=== PATIENT | female | born 1955 | race Caucasian/White ===

== ENCOUNTER 2022-07-30 12:19 | Observation (INO) ==
--- NOTE | 2022-07-30 13:32 | XRay Report ---
XR chest 2V PA/lateral CLINICAL HISTORY: SOB TECHNIQUE: 2 views of the chest were obtained. Comparison: Comparison is made to chest radiograph 08/09/2019 FINDINGS: No lines and tubes are seen. The cardiomediastinal silhouette is normal. The lungs are clear. No evid ence of pleural effusion or pneumothorax. IMPRESSION: No acute abnormalities and in particular no evidence of pneumonia. ACT 112: Negative or not required by law. Electronically signed by: Adriel Orantes M.D. 07/30/2022 1:31 PM
[2022-07-30 13:37] LABS: Basophils # (auto) 0.14 K/uL (0-0.2); Basophils % (auto) 1.2 %; Eosinophils # (auto) 0.45 K/uL (0-0.50); Eosinophils % (auto) 3.9 %; Hematocrit (blood only) 43.3 % (37.0-47.0); Immature Granulocytes # (auto) 0.05 K/uL (0.01-0.20); Immature Granulocytes % (auto) 0.4 %; Lymphocytes # (auto) 1.95 K/uL (1.2-3.4); Lymphocytes % (auto) 16.8 %; Mean Corpuscular Hemoglobin 28.1 pg (25.0-34.0); Mean Corpuscular Hgb Conc 34.6 g/dL (32.0-36.0); Mean Corpuscular Volume 81.1 fL (80.0-100.0); Mean Platelet Volume 10.4 fL (9.4-12.4); Monocytes % (auto) 6.9 %; Neutrophils # (auto) 8.23 K/uL (1.40-6.50); Neutrophils % (auto) 70.8 %; Platelet Count 441 K/uL (130-400); RDW Coefficient of Variation 14.7 % (11.5-14.5); RDW Standard Deviation 43.3 fL (36.4-46.3); Red Blood Count 5.34 M/uL (4.20-5.40); White Blood Count 11.62 K/ul (4.8-10.8)
[2022-07-30 13:45] LABS: Albumin Globulin Ratio 1.4 (0.9-2); Albumin Level 4.1 gm/dl (3.4-5.0); BUN Creatinine Ratio 16.4 (10-20); Bilirubin,Total 0.2 mg/dl (0.2-1.0); Calcium 8.3 mg/dl (8.5-10.1); Creatinine Clr Calc Pharmacy 46.3 ml/min; Est GFR (African American) 50.8 ml/min; Est GFR (Non-African American) 43.8 ml/min; Magnesium 2.1 mg/dl (1.7-2.4); Potassium 3.4 mmol/L (3.5-5.1); Total Protein 7.1 gm/dl (6.0-8.3)
[2022-07-30 13:55] LABS: INR 1.7 (0.9-1.1); Partial Thromboplastin Ratio 1.2; Partial Thromboplastin Time 32.8 Seconds (21.0-31.0); Prothrombin Time 17.6 Seconds (9.0-12.0)
[2022-07-30] MEDS ORDERED: ALBUT/IPRATROP 3MG/0.5MG NEB 3 ML VIAL ONE (17:25)
[2022-07-30] MEDS ORDERED: ALBUT/IPRATROP 3MG/0.5MG NEB 3 ML VIAL NEB STA ×2 (17:26→17:36)
[2022-07-30] MEDS ORDERED: methylPREDNISolone 125 MG/2 ML VIAL IV STA (17:36)
[2022-07-30] MEDS ORDERED: cefTRIAXone SODIUM 2,000 MG/70 ML BAG IV STA (17:36)
[2022-07-30] MEDS ORDERED: carvediloL 12.5 MG TAB PO ONE (17:53)
[2022-07-30] MEDS ORDERED: LOSARTAN POTASSIUM 25 MG TAB PO STA (17:53)
[2022-07-30] MEDS ORDERED: amLODIPine BESYLATE 5 MG TAB PO ONE (17:53)
--- NOTE | 2022-07-30 17:53 | Emergency Department Note ---
Impression & Plan Hypoxia, Hypertension, SOB (shortness of breath), Wheezing, ALONA (acute kidney injury) ED Provider Note NAME: KEY LEVI AGE: 66 SEX: F : 1955 ARRIVES VIA: Walk-In INFORMANT: [Patient] ED PROVIDER(S): [Vic Larsen MD] CHIEF COMPLAINT: Short of breath HISTORY OF PRESENT ILLNESS: The patient is a 66-year-old female with a lung disease and a history of a tracheostomy. She does have a nebulizer at home. She states that she had 3 days of increasing shortness of breath with cough. No fever, no chest pain. No sick contacts. As per the triage nursing staff, the patient's O2 saturation was low at 88%, she seemed to have a hard time catching her breath. Of note, the patient did not take any of her prescribed medications today. PMHx/PSHx: See Below SOCIAL HISTORY: See Below. PHYSICAL EXAM: GENERAL: Patient is in no acute distress. HEENT: No acute trauma, normocephalic atraumatic, mucous membranes moist, no nasal congestion. NECK: No stridor, no adenopathy, no meningismus, trachea is midline. Tracheostomy present. LUNGS: Wheezing bilaterally with decreased breath sounds bilaterally, somewhat increased respiratory rate. No crackles. HEART: Without murmurs gallops or rubs, regular rate and rhythm. ABDOMEN: Soft, nontender, bowel sounds positive, no peritonitis. EXTREMITIES: No cyanosis, mild bilateral pedal edema, full range of motion of all the joints without pain or difficulty, no signs for acute trauma. NEUROLOGIC: Oriented x 3, no acute motor or sensory deficits, no focal weakness. SKIN: No rash, no jaundice, no diaphoresis. DIFFERENTIAL DIAGNOSIS: Reactive airway disease, pneumonia, pneumothorax, COPD, CHF, infection, cardiac ischemia, anemia, pulmonary embolism, bronchitis, as well as other pathologies. EMERGENCY DEPARTMENT COURSE/PROCEDURES: Prior/Outside records reviewed: None ECG per my interpretation: Indication was shortness of breath. The ECG shows a normal sinus rhythm with a rate of 91. There is significant baseline artifact. I see no obvious ST elevation, no PVCs. The QTC is 479. Continuous Cardiac Monitoring per my interpretation: An order was placed for continuous cardiac monitoring. The monitor shows a rate of 94 with normal sinus rhythm. MEDICAL DECISION MAKING: There is a mild leukocytosis, this could be consistent with infection or the stress of her presentation. There was a normal hemoglobin. Platelet count slightly elevated. INR was high at 1.7. Creatinine was mildly elevated, consis tent with some dehydration and acute kidney injury. Potassium is slightly low but not in need of emergent correction. There were a few subtle liver enzyme elevations. ECG shows a normal sinus rhythm, no ischemia. Cardiac enzyme testing is slightly elevated. This troponin elevation could be secondary to mismatch versus cardiac injury. COVID, influenza and RSV test were negative. Chest film does not show mediastinal widening, pneumonia or pneumothorax per my review. Patient received 1 L of IV saline. She was given 2 duo nebs, she received IV Solu-Medrol and IV ceftriaxone. She was given her typical blood pressure medications orally, losartan, Coreg and amlodipine. She had missed these medications today. The patient is more comfortable since treatment here in the ED. Her blood pr essure is improved. Given her hypoxia, her dyspnea, her ongoing lung disease, admission/observation is warranted. I spoke with the patient and case management, the on-call hospitalist was consulted. DISPOSITION: Based on the patient's presentation and findings, I believe hospital admission is warranted/appropriate. Past Med/Surg History Medical History Acute exacerbation of chronic obstructive pulmonary disease (COPD) Adrenal adenoma Has upcoming appt with endo PCP did work up prior (cortisol normal, DHEA hormone normal, 24 hour catecholamines WNL, plasma renin low (could be due to BP meds per PCP)) Asthma Chronic obstructive pulmonary disease CKD (chronic kidney disease), stage III Diabetes DVT (deep venous thrombosis) WITH SURGERY TRACH 2004-WAS ON BLOOD THINNER FOR A PERIOD OF TIME-THEN OFF-NO ISSUES SINCE History of colon cancer Dx'ed in 2002 (has familial adenomatous polyposis) S/p ileostomy and then J pouch procedure No chemo or XRT History of pancreatic cancer 2016 S/p Whipple procedure No chemo or XRT History of throat cancer Dxed 2006- s/p laryngectomy with trach placement No chemo or XRT History of thyroid cancer Papillary thyroid carcinoma (with throat cancer per patient) 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 S/p stomaplasty (11/2020) and tracheostoma revision (05/2021) S/p thyroidectomy No chemo or XRT Hyperlipidemia Hypertension Hypertensive urgency Hypothyroidism associated with surgical procedure Hypoxia Murmur, cardiac F/U DR DEE ACEVEDO No murmur per routine 06/2021 cardio visit SOB (shortness of breath) on exertion Tracheostomy in place No current issues Surgical History (Updated 07/30/22 @ 18:33 by EDGAR Cole) History of bowel resection WITH J POUCH History of colonoscopy History of esophagogastroduodenoscopy (EGD) History of radical neck dissection WITH TRACHEOSTOMY-2004 History of thyroidectomy History of Whipple procedure X 2-LAST 2012 Family History Family/Other Heart disease Lung disease Cancer Father Family hx of colon cancer Sister Family hx of colon cancer Social History Smoking Status: Former smoker Second Hand Exposure: Yes; Do You Dip or Chew Tobacco: No; Hx Alcohol Use: No Hx Substance Use: No Preferred Language: Mongolian Communication Ability: Effective Technical Asst Required: No Beliefs That Will Affect Care: None marital status: Current Living Situation: Alone current occupational status: disabled Feels Safe at Home: Yes Safety Concerns: Feels Safe At This Time Assistive Devices: Glasses Allergies Allergies Allergy/AdvReac Type Severity Reaction Status Date / Time NSAIDS (Non-Steroidal Allergy Unknown Ulcer & Verified 07/30/22 19:02 Anti-Inflamma anemia zolpidem [From Ambien] Allergy Unknown pysch Verified 07/30/22 19:02 complications, dizzy hydrochlorothiazide AdvReac Acute Verified 07/30/22 19:02 kidney injury rosuvastatin [From Crestor] AdvReac Elavated Verified 07/30/22 19:02 liver function test Home Meds Home Medications Medication Instructions Recorded Confirmed cyanocobalamin (vitamin B-12) 500 500 mcg sublingual BID 08/09/19 07/30/22 mcg disintegrating tablet,sublingual losartan 100 mg tablet (Cozaar) 100 mg PO QAM 08/09/19 07/30/22 pantoprazole 40 mg tablet,delayed 40 mg PO QAM 08/09/19 07/30/22 release (Protonix) triamcinolone acetonide 0.1 % 1 appln topical BID 08/09/19 07/30/22 topical cream repaglinide 1 mg tablet 1 mg PO BID 11/27/21 07/30/22 albuterol sulfate 2.5 mg/3 mL 2.5 mg inhalation DIRECTED 07/30/22 07/30/22 (0.083 %) solution for nebulization amlodipine 10 mg tablet 10 mg PO DAILY 07/30/22 07/30/22 blood-glucose sensor (Dexcom G6 07/30/22 07/30/22 Sensor device) carvedilol 25 mg tablet 25 mg PO BID 07/30/22 07/30/22 clobetasol 0.05 % topical ointment 1 applic topical BID PRN flare ups 07/30/22 07/30/22 (Temovate) doxycycline hyclate 100 mg capsule 100 mg PO DIRECTED 07/30/22 07/30/22 ipratropium 0.5 mg-albuterol 3 mg 3 ml inhalation Q6H PRN Shortness 07/30/22 07/30/22 (2.5 mg base)/3 mL nebulization Of Breath Or Wheezing soln levothyroxine 200 mcg tablet 200 mcg PO DAILY 07/30/22 07/30/22 metformin 1,000 mg tablet 1,000 mg PO BID 07/30/22 07/30/22 repaglinide 1 mg tablet 0.5 mg PO DIRECTED 07/30/22 07/30/22 Results & Data (ED) Vital Signs Vital Signs - 24 hr 07/30/22 12:32 07/30/22 17:13 07/30/22 17:14 Temperature 36.9 C Temperature Source Temporal Artery Scan Pulse Rate 93 H Pulse Rate [Apical] 98 H Pulse Rate from SpO2 Sensor Respiratory Rate 24 35 H Respiratory Effort / Characteristics Gasping/Agonal Respiratory Depth Deep Blood Pressure 176/79 H Blood Pressure Mean 111 Pulse Oximetry 93 88 L 88 L Oxygen Delivery Method Room Air Room Air Trach Collar Oxygen Flow Rate Sepsis Recent Fever Within 48 Hours No Sepsis New/Unexplained Change in Mental Status No Sepsis Action Taken by Nursing No Action Required Oxygen Flow Rate - Titration 15 Pulse Oximetry Post Tiitration 99 07/30/22 17:30 07/30/22 17:17 07/30/22 17:18 Temperature Temperature Source Pulse Rate 95 H Pulse Rate [Apical] 94 H Pulse Rate from SpO2 Sensor 94 H Respiratory Rate 26 H 24 Respiratory Effort / Characteristics Spontaneous Short of Breath Respiratory Depth Blood Pressure 230/115 H Blood Pressure Mean 153 Pulse Oximetry 98 99 Oxygen Delivery Method Nebulizer Trach Collar Oxygen Flow Rate 9 Sepsis Recent Fever Within 48 Hours Sepsis New/Unexplained Change in Mental Status Sepsis Action Taken by Nursing Oxygen Flow Rate - Titration Pulse Oximetry Post Tiitration 07/30/22 17:30 07/30/22 17:30 07/30/22 18:00 Temperature Temperature Source Pulse Rate Pulse Rate [Apical] Pulse Rate from SpO2 Sensor 91 H 92 H Respiratory Rate Respiratory Effort / Characteristics Respiratory Depth Blood Pressure 211/124 H Blood Pressure Mean 153 Pulse Oximetry 98 95 Oxygen Delivery Method Oxygen Flow Rate Sepsis Recent Fever Within 48 Hours Sepsis New/Unexplained Change in Mental Status Sepsis Action Taken by Nursing Oxygen Flow Rate - Titration Pulse Oximetry Post Tiitration 07/30/22 18:01 07/30/22 18:01 Temperature Temperature Source Pulse Rate 95 H Pulse Rate [Apical] Pulse Rate from SpO2 Sensor 101 H Respiratory Rate 22 Respiratory Effort / Characteristics Respiratory Depth Blood Pressure 183/158 H Blood Pressure Mean 166 Pulse Oximetry 98 Oxygen Delivery Method Oxygen Flow Rate Sepsis Recent Fever Within 48 Hours Sepsis New/Unexplained Change in Mental Status Sepsis Action Taken by Nursing Oxygen Flow Rate - Titration Pulse Oximetry Post Tiitration Home Medications Current Medication List: was personally reviewed by me Laboratory Data Attestation: I reviewed the patient's lab results. 07/30/22 13:00 07/30/22 13:00 Lab Results 07/30/22 07/30/22 07/30/22 Range/Units 13:00 13:00 13:00 WBC 11.62 H (4.8-10.8) K/ul RBC 5.34 (4.20-5.40) M/uL Hgb 15.0 (12.0-16.0) g/dl Hct 43.3 (37.0-47.0) % MCV 81.1 (80.0-100.0) fL MCH 28.1 (25.0-34.0) pg MCHC 34.6 (32.0-36.0) g/dL RDW Std Deviation 43.3 (36.4-46.3) fL RDW Coeff of Monika 14.7 H (11.5-14.5) % Plt Count 441 H (130-400) K/uL MPV 10.4 (9.4-12.4) fL Immature Gran % (Auto) 0.4 % Neut % (Auto) 70.8 % Lymph % (Auto) 16.8 % Meade % (Auto) 6.9 % Eos % (Auto) 3.9 % Baso % (Auto) 1.2 % Neut # (Auto) 8.23 H (1.40-6.50) K/uL Lymph # (Auto) 1.95 (1.2-3.4) K/uL Meade # (Auto) 0.80 H (0.11-0.59) K/uL Eos # (Auto) 0.45 (0-0.50) K/uL Baso # (Auto) 0.14 (0-0.2) K/uL Immature Gran # (Auto) 0.05 (0.01-0.20) K/uL PT 17.6 H (9.0-12.0) Seconds INR 1.7 H (0.9-1.1) APTT 32.8 H (21.0-31.0) Seconds PTT Ratio 1.2 Sodium 144 (136-145) mmol/L Potassium 3.4 L (3.5-5.1) mmol/L Chloride 109 H (98-107) mmol/L Carbon Dioxide 21 (21-32) mmol/L Anion Gap 14 H (3-11) BUN 21 (6-23) mg/dl Creatinine 1.28 H (0.6-1.2) mg/dl Est Cr Clr Drug Dosing 46.3 ml/min Est GFR ( Amer) 50.8 ml/min Est GFR (Non-Af Amer) 43.8 ml/min BUN/Creatinine Ratio 16.4 (10-20) Glucose 89 (70-99(Fasting)) mg/dl Calcium 8.3 L (8.5-10.1) mg/dl Magnesium 2.1 (1.7-2.4) mg/dl Total Bilirubin 0.2 (0.2-1.0) mg/dl AST 52 H (13-39) U/L ALT 26 (7-52) U/L Alkaline Phosphatase 129 H (34-104) U/L Total Protein 7.1 (6.0-8.3) gm/dl Albumin 4.1 (3.4-5.0) gm/dl Globulin 3.0 (2.5-4.0) gm/dl Albumin/Globulin Ratio 1.4 (0.9-2) SARS-CoV-2 (PCR) (Negative) Influenza Type A (PCR) (Neg) Influenza Type B (PCR) (Neg) RSV (RT-PCR) (Neg) 07/30/22 Range/Units 17:11 WBC (4.8-10.8) K/ul RBC (4.20-5.40) M/uL Hgb (12.0-16.0) g/dl Hct (37.0-47.0) % MCV (80.0-100.0) fL MCH (25.0-34.0) pg MCHC (32.0-36.0) g/dL RDW Std Deviation (36.4-46.3) fL RDW Coeff of Monika (11.5-14.5) % Plt Count (130-400) K/uL MPV (9.4-12.4) fL Immature Gran % (Auto) % Neut % (Auto) % Lymph % (Auto) % Meade % (Auto) % Eos % (Auto) % Baso % (Auto) % Neut # (Auto) (1.40-6.50) K/uL Lymph # (Auto) (1.2-3.4) K/uL Meade # (Auto) (0.11-0.59) K/uL Eos # (Auto) (0-0.50) K/uL Baso # (Auto) (0-0.2) K/uL Immature Gran # (Auto) (0.01-0.20) K/uL PT (9.0-12.0) Seconds INR (0.9-1.1) APTT (21.0-31.0) Seconds PTT Ratio Sodium (136-145) mmol/L Potassium (3.5-5.1) mmol/L Chloride (98-107) mmol/L Carbon Dioxide (21-32) mmol/L Anion Gap (3-11) BUN (6-23) mg/dl Creatinine (0.6-1.2) mg/dl Est Cr Clr Drug Dosing ml/min Est GFR ( Amer) ml/min Est GFR (Non-Af Amer) ml/min BUN/Creatinine Ratio (10-20) Glucose (70-99(Fasting)) mg/dl Calcium (8.5-10.1) mg/dl Magnesium (1.7-2.4) mg/dl Total Bilirubin (0.2-1.0) mg/dl AST (13-39) U/L ALT (7-52) U/L Alkaline Phosphatase (34-104) U/L Total Protein (6.0-8.3) gm/dl Albumin (3.4-5.0) gm/dl Globulin (2.5-4.0) gm/dl Albumin/Globulin Ratio (0.9-2) SARS-CoV-2 (PCR) NEGATIVE (Negative) Influenza Type A (PCR) Negative (Neg) Influenza Type B (PCR) Negative (Neg) RSV (RT-PCR) Negative (Neg) Administered Medications Carvedilol (Carvedilol 25 Mg Tab) 25 mg PO BID [facility] Stop: 08/29/22 20:59 Last Admin: 07/30/22 22:09 Dose: 25 mg Documented By: AXEL Cyanocobalamin (Cyanocobalamin (B-12) 500 Mcg Tablet) 500 mcg PO BID [facility] Stop: 08/29/22 20:59 Last Admin: 07/30/22 22:08 Dose: 500 mcg Documented By: AXEL Sodium Chloride (Nss 1000ml) 1,000 mls @ 80 mls/hr IV .[id number] [facility] Stop: 07/31/22 10:34 Last Infusion: 07/31/22 00:13 Dose: 80 mls/hr Documented By: Infusion: 07/30/22 22:17 Dose: 0 mls/hr Documented By: Admin: 07/30/22 21:42 Dose: 80 mls/hr Documented By: AXEL Doxycycline Hyclate 100 mg/ (Dextrose) 110 mls @ 50 mls/hr IV Q12H [facility] Stop: 08/06/22 20:59 Last Admin: 07/30/22 23:48 Dose: 50 mls/hr Documented By: AXEL Methylprednisolone 40 mg/ (Syringe) 0.64 mls @ 1.5 mls/min IV Q8H [facility] Stop: 08/30/22 00:00 Last Admin: 07/30/22 23:29 Dose: 1.5 mls/min Documented By: AXEL Insulin Aspart (Insulin Aspart Per Unit) 0 units SC ACHS [facility] Stop: 08/29/22 20:59 Last Admin: 07/30/22 21:27 Dose: Not Given Documented By: AXEL Triamcinolone Acetonide (Triamcinolone Acet 0.1% Cr 15 Gm Tube) 1 appln TOP BID [facility] Stop: 08/29/22 20:59 Last Admin: 07/30/22 22:09 Dose: Not Given Documented By: AXEL Discontinued Medications Albuterol (Albut/Ipratrop 3mg/0.5mg Neb 3 Ml Vial) Confirm Administered Dose 3 ml .ROUTE .STK-MED ONE Stop: 07/30/22 17:26 Last Admin: 07/30/22 17:30 Dose: Not Given Documented By: JIMMIE Albuterol (Albut/Ipratrop 3mg/0.5mg Neb 3 Ml Vial) 3 ml NEB NOW STA; Protocol Stop: 07/30/22 17:27 Last Admin: 07/30/22 17:30 Dose: 3 ml Documented By: JIMMIE Albuterol (Albut/Ipratrop 3mg/0.5mg Neb 3 Ml Vial) 3 ml NEB NOW STA; Protocol Stop: 07/30/22 17:37 Last Admin: 07/30/22 18:00 Dose: 3 ml Documented By: DIOGENES Albuterol (Albuterol 0.083% Nebu Soln 3 Ml Vial) 2.5 mg NEB QIDR [facility]; Protocol Stop: 08/29/22 20:59 Last Admin: 07/30/22 21:10 Dose: Not Given Documented By: CS Amlodipine Besylate (Amlodipine Besylate 5 Mg Tab) 5 mg PO NOW ONE Stop: 07/30/22 17:54 Last Admin: 07/30/22 18:00 Dose: 5 mg Documented By: HS Carvedilol (Carvedilol 12.5 Mg Tab) 12.5 mg PO NOW ONE Stop: 07/30/22 17:54 Last Admin: 07/30/22 18:00 Dose: 12.5 mg Documented By: HS Ceftriaxone Sodium (Rocephin) 2,000 mg in 70 mls @ 140 mls/hr IV NOW STA Stop: 07/30/22 18:05 Last Infusion: 07/30/22 18:51 Dose: 0 mls/hr Documented By: DLGideon Admin: 07/30/22 18:00 Dose: 140 mls/hr Documented By: HS Sodium Chloride (Nss 1000ml) 1,000 mls @ 999 mls/hr IV .Q1H1M ONE Stop: 07/30/22 18:55 Last Infusion: 07/30/22 19:26 Dose: 0 mls/hr Documented By: Admin: 07/30/22 18:05 Dose: 999 mls/hr Documented By: HS Piperacillin Sod/Tazobactam (Sod 4.5 gm/ Dextrose) 120 mls @ 240 mls/hr IV NOW ONE; Protocol Stop: 07/30/22 21:29 Last Infusion: 07/30/22 23:51 Dose: 0 mls/hr Documented By: Infusion: 07/30/22 23:29 Dose: 240 mls/hr Documented By: Infusion: 07/30/22 22:18 Dose: 0 mls/hr Documented By: Admin: 07/30/22 22:06 Dose: 240 mls/hr Documented By: AXEL Insulin Glargine (Lantus Per Unit Charge) 8 units SQ ONE ONE Stop: 07/30/22 22:01 Last Admin: 07/30/22 22:13 Dose: 8 units Documented By: AXEL Co-signed By: LORI Ioversol (Optiray 320 500ml) 111 ml IV ONCE ONE Stop: 07/30/22 22:51 Last Admin: 07/30/22 22:51 Dose: 111 ml Documented By: [facility] Losartan Potassium (Losartan Potassium 25 Mg Tab) 100 mg PO NOW STA Stop: 07/30/22 17:54 Last Admin: 07/30/22 18:07 Dose: 100 mg Documented By: HS Methylprednisolone (Methylprednisolone 125 Mg/2 Ml Vial) 125 mg IV NOW STA Stop: 07/30/22 17:37 Last Admin: 07/30/22 18:00 Dose: 125 mg Documented By: HS Potassium Chloride (Potassium Chloride Crtab 20 Meq Tabcr) 40 meq PO NOW STA Stop: 07/30/22 18:24 Last Admin: 07/30/22 18:55 Dose: 40 meq Documented By: HS Potassium Chloride (Potassium Chloride 10 Meq Tabcr) Confirm Administered Dose 40 meq PO .STK-MED ONE Stop: 07/30/22 18:54 Last Admin: 07/30/22 18:54 Dose: Not Given Documented By: HS Trazodone HCl (Trazodone Hcl 100 Mg Tab) 100 mg PO HS [facility] Stop: 08/29/22 20:59 Last Admin: 07/30/22 22:09 Dose: 100 mg Documented By: AXEL Imaging Data Radiologist's Impression: Chest X-Ray 07/30/22 12:37 XR chest 2V PA/lateral CLINICAL HISTORY: SOB TECHNIQUE: 2 views of the chest were obtained. Comparison: Comparison is made to chest radiograph 08/09/2019 FINDINGS: No lines and tubes are seen. The cardiomediastinal silhouette is normal. The lungs are clear. No evidence of pleural effusion or pneumothorax. IMPRESSION: No acute abnormalities and in particular no evidence of pneumonia. ACT 112: Negative or not required by law. Electronically signed by: Adriel Orantes M.D. 07/30/2022 1:31 PM Discharge Plan Visit Data Chief Complaint: Shortness of Breath/Dyspnea Stated Complaint: HARD TO BREATHE ED Provider: Vic Larsen Discharge Problem: Hypoxia, Hypertension, SOB (shortness of breath), Wheezing, ALONA (acute kidney injury) Patient Disposition: Admitted As Inpatient Condition: Fair Discharge Instructions Interventions: ED Discharge Assessment Last Done: 07/30/22 20:07
[2022-07-30] MEDS ORDERED: SODIUM CHLORIDE 0.9% 1000ML 1,000 ML IV ONE (17:55)
[2022-07-30 18:04] LABS: Influenza A virus by PCR Negative (Neg); Influenza B virus by PCR Negative (Neg); RSV by PCR Negative (Neg); SARS CoV2 RNA(COVID-19) Ceph NEGATIVE (Negative)
[2022-07-30] MEDS ORDERED: MAGNESIUM HYDROXIDE SUSP 30 ML UDC PO PRN (18:23)
[2022-07-30] MEDS ORDERED: POLYETHYLENE (MIRALAX) 17 GM PACK PO PRN (18:23)
[2022-07-30] MEDS ORDERED: ALUMINUM/MAGNESIUM SUSP 30 ML UDC PO PRN (18:23)
[2022-07-30] MEDS ORDERED: ACETAMINOPHEN 325 MG TAB PO PRN (18:23)
[2022-07-30] MEDS ORDERED: ONDANSETRON INJ 2 MG/ML 2 ML VIAL IV PRN (18:23)
[2022-07-30] MEDS ORDERED: POTASSIUM CHLORIDE CRTAB 20 MEQ TABCR PO STA (18:23)
--- NOTE | 2022-07-30 18:39 | History & Physical Report ---
Date of Service July 30, 2022 Assessment & Plan (1) Acute exacerbation of chronic obstructive pulmonary disease (COPD): (2) Hypoxia: (3) Tracheostomy in place: (4) Hypertension: (5) Hyperlipidemia: (6) Diabetes: (7) CKD (chronic kidney disease), stage III: (8) History of Whipple procedure: (9) History of throat cancer: (10) History of pancreatic cancer: Plan 66 y/o with SOB and cough x3 days. 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 Further PMH includes: Non-insulin dependent DM2, HTN, Psoriasis, CKD stage III, H/O DVT s/p a surgical procedure in 2004 (Not on any anticoagulation).+ thick brown sputum with blood- tinged. At baseline, she is ambulatory and not requiring O2. No known sick contacts, fever, or chills. Home COVID-19 test negative; also negative in ED. Vaccinated against COVID and Influenza. CXR negative for acute pulmonary disease. WBC 11.62. Methylprednisone 125 mg IV x1, nebulizer tx x2, and placed on 6L trach collar. Answers all questions with an electro-larynx. Numerous coughing flares with no sputum production during my exam. Her trach stoma interior appeared erythematous. Pt wheezes improving with nebs, still tight overall. Euvolemic. Noted flare of psoriasis on elbows, ankles and knees. Pt BP elevated when I was in the room. Reports her baseline is 170's systolic. Troponin 19.1; do not suspect ACS with this individual; rather ischemic demand. VBG relatively normal. Empirically tx with Zosyn + Doxy and consult pulmonology for evaluation in the AM. Obtain Lactate and Blood cultures. Need to be cognizant of the possibility of a recurrent DVT as she has a H/O DVT and not anticoagulated currently, D-Dimer pending. Nebs QID and Q2 PRN with CXR in AM. Acute on Chronic Exacerbation of COPD: Hypoxia: History of Throat Cancer: -Chronic Tracheostomy stoma without tracheostomy tube: -SOB x3 days despite neb use at home -Trach placed 2006 s/p throat cancer -No home O2; received nebs x2 via trach collar; continue nebs QID + Q2 PRN -CXR in AM -Methylprednisone in ED; will continue IV Q8 -Monitor glucose more closely while on steroids (see below) -Rocephin started in ED; was started on Doxy as opt 07/29; Continue Doxy and add Azithro and adjust pending cultures. -Does not appear toxic -Lactate 0.8 -VBG relatively normal, pH 7.34, CO2 36, HCO3 19. -Sputum culture ordered -D-Dimer pending; CTA chest with BL LE dopplers if elevated HTN: -Takes Losartan, Amlodipine and Carvedolol at home; did not take this AM. -All three above admin in ED; SBP remained > 180. SBP 158 -Pt reports baseline SBP is 160-170 -Consider Hydralazine if continued elevation. HLD: -managed by diet; recent lipid panel 03/2022: -LDL 104 -Check lipid panel in AM Diabetes Mellitus Type Two: -ACHS FSBS and SSI -A1C 05/14/2022: 7.3, goal < 7 -Uses Dexcom at home -Takes Repaglinide and Metformin at home; hold while here -Stress level 3 and close monitoring with steroid initiation. -Glycemic Pharmacy consult placed Acute kidney injury: Hypokalemia: -baseline creatinine 0.9; currently 1.28 -Gentle rehydration 0.9 NS @ 80mL/hour and reevaluation in AmMafter 1 bag -poor appetite over past few days d/t not feeling well -K+ 3.4; replaed with KCL 40 mEq PO; trend in AM H/O DVT: -years ago; was on anticoagulation but discontinued more than a year ago -increased r/o DVT; DDImer ordered; if elevated obtain Chest CTA and BL LE Doppler US -INR 1.7; recheck in AM Hypothyroidism: History of Throat Cancer: -Takes Levothyroxine; continue -TSH 05/2022: 2019 GERD: -Takes Pantoprazole; continue Psoriasiform dermatitis: -Recently seen by derm OPT 07/21/22 -Affecting elbows, recently started on Triamcinolone and Clobetasol cream Disposition: PCP: Dr. Castro Code Status: Full Code VTE Prophylaxis: Lovenox SQ A total of 87 minutes was spent with greater than 50% of that time personally reviewing all current laboratory work and diagnostic imaging studies obtained in the ED. Additionally, I was able to review the patients past medication reconciliation and history with direct visualization in the patients chart. Included in the time above, a portion of that time was spent assessing the patient while discussing and collaborating with specialists, if necessary, and making medical decisions regarding orders to be placed. All of the aforementioned completed while collaborating with Dr. Courtney for a full treatment plan. Please see his addendum for further details. History of Present Illness Chief Complaint: shortness of breath Primary Care Provider: Orlin Castro MD Ms. Soto is a 66-year-old female that presented to the ED today with SOB that has been occurring x3 days without relief from home nebulizer treatments and O2. 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 Further PMH includes: Non-insulin dependent DM2, HTN, Psoriasis, CKD stage III, H/O DVT s/p a surgical procedure in 2004 (Not on any anticoagulation). Pt states that she has had a thick brown sputum cough that is blood-tinged through her trach stoma. At baseline, she is ambulatory and not requiring O2. Pt otherwise denies LOPEZ, dizziness, chest pain, palpitations, fever, chills, visual changes, auditory changes, N/V, known sick contacts, falls, or trauma. Home COVID-19 test negative; also negative in ED. Vaccinated against COVID and Influenza. CXR negative for acute pulmonary disease. Slight leukocytosis WBC 11.62. In ED, Methylprednisone 125 mg IV x1, nebulizer tx x2, and placed on 6L trach collar. On exam, Pt AAOx4 and able to answer questions with an electro-larynx. Numerous coughing flares with no sputum production during my exam. Her trach stoma interior appeared erythematous. Pt wheezes improving with nebs, still tight overall. Euvolemic. Noted flare of psoriasis on elbows, ankles and knees. Pt BP elevated when I was in the room. Reports her baseline is 170's systolic. Some slight leukocytosis WBC 11.62, Slight troponin elevation 19.1; will trend x1 but do not suspect ACS with this individual; rather ischemic demand. VBG relatively normal. Will empirically tx with Zosyn + Doxy and consult pulmonology for evaluation in the AM. Obtain Blood cultures, lactate negative 0.8. Need to be cognizant of the possibility of a recurrent DVT as she has a H/O DVT and not anticoagulated currently, D-Dimer pending. Nebs QID and Q2 PRN with CXR in AM. Suspect acute on chronic exacerbation of COPD with an underlying bronchitis. Pt. will be admitted for further evaluation and management. Please see A/P for further details. Allergies Allergy/AdvReac Type Severity Reaction Status Date / Time NSAIDS (Non-Steroidal Allergy Unknown Ulcer & Verified 07/30/22 19:02 Anti-Inflamma anemia zolpidem [From Ambien] Allergy Unknown pysch Verified 07/30/22 19:02 complications, dizzy hydrochlorothiazide AdvReac Acute Verified 07/30/22 19:02 kidney injury rosuvastatin [From Crestor] AdvReac Elavated Verified 07/30/22 19:02 liver function test Home Medications Medication Instructions Recorded Confirmed Type cyanocobalamin (vitamin B-12) 500 500 mcg sublingual BID 08/09/19 07/30/22 History mcg disintegrating tablet,sublingual losartan 100 mg tablet (Cozaar) 100 mg PO QAM 08/09/19 07/30/22 History pantoprazole 40 mg tablet,delayed 40 mg PO QAM 08/09/19 07/30/22 History release (Protonix) triamcinolone acetonide 0.1 % 1 appln topical BID 08/09/19 07/30/22 History topical cream repaglinide 1 mg tablet 1 mg PO BID 11/27/21 07/30/22 History albuterol sulfate 2.5 mg/3 mL 2.5 mg inhalation DIRECTED 07/30/22 07/30/22 History (0.083 %) solution for nebulization amlodipine 10 mg tablet 10 mg PO DAILY 07/30/22 07/30/22 History blood-glucose sensor (Dexcom G6 07/30/22 07/30/22 History Sensor device) carvedilol 25 mg tablet 25 mg PO BID 07/30/22 07/30/22 History clobetasol 0.05 % topical ointment 1 applic topical BID PRN flare ups 07/30/22 07/30/22 History (Temovate) doxycycline hyclate 100 mg capsule 100 mg PO DIRECTED 07/30/22 07/30/22 History ipratropium 0.5 mg-albuterol 3 mg 3 ml inhalation Q6H PRN Shortness 07/30/22 07/30/22 History (2.5 mg base)/3 mL nebulization Of Breath Or Wheezing soln levothyroxine 200 mcg tablet 200 mcg PO DAILY 07/30/22 07/30/22 History metformin 1,000 mg tablet 1,000 mg PO BID 07/30/22 07/30/22 History repaglinide 1 mg tablet 0.5 mg PO DIRECTED 07/30/22 07/30/22 History Past Med/Surg History Medical History (Updated 07/30/22 @ 18:33 by EDGAR Cole) Acute exacerbation of chronic obstructive pulmonary disease (COPD) Adrenal adenoma Has upcoming appt with endo PCP did work up prior (cortisol normal, DHEA hormone normal, 24 hour catecholamines WNL, plasma renin low (could be due to BP meds per PCP)) Asthma Chronic obstructive pulmonary disease CKD (chronic kidney disease), stage III Diabetes DVT (deep venous thrombosis) WITH SURGERY TRACH 2004-WAS ON BLOOD THINNER FOR A PERIOD OF TIME-THEN OFF-NO ISSUES SINCE History of colon cancer Dx'ed in 2002 (has familial adenomatous polyposis) S/p ileostomy and then J pouch procedure No chemo or XRT History of pancreatic cancer 2017 S/p Whipple procedure No chemo or XRT History of throat cancer Dxed 2006- s/p laryngectomy with trach placement No chemo or XRT History of thyroid cancer Papillary thyroid carcinoma (with throat cancer per patient) 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 S/p stomaplasty (11/2020) and tracheostoma revision (05/2021) S/p thyroidectomy No chemo or XRT Hyperlipidemia Hypertension Hypertensive urgency Hypothyroidism associated with surgical procedure Hypoxia Murmur, cardiac F/U DR DEE ACEVEDO No murmur per routine 06/2021 cardio visit SOB (shortness of breath) on exertion Tracheostomy in place No current issues Surgical History (Updated 07/30/22 @ 18:33 by EDGAR Cole) History of bowel resection WITH J POUCH History of colonoscopy History of esophagogastroduodenoscopy (EGD) History of radical neck dissection WITH TRACHEOSTOMY-2004 History of thyroidectomy History of Whipple procedure X 2-LAST 2012 Family History Family/Other Heart disease Lung disease Cancer Father Family hx of colon cancer Sister Family hx of colon cancer Social History Smoking Status: Former smoker Second Hand Exposure: Yes; Do You Dip or Chew Tobacco: No; Hx Alcohol Use: No Hx Substance Use: No Preferred Language: Bahamian Communication Ability: Effective Branch Manager Required: No Beliefs That Will Affect Care: None marital status: Current Living Situation: Alone current occupational status: disabled Feels Safe at Home: Yes Safety Concerns: Feels Safe At This Time Assistive Devices: Glasses Review of Systems Review of Systems: Neuro: (-) Falls, trauma, slurred speech HEENT: (-) LOPEZ, dizziness, dysphagia, visual or auditory changes CV: (-) CP, palpitations, swelling Resp: (+) SOB (+) productive cough with brown and blood tinged sputum GI: (-) appetite changes, N/V/D, bowel changes : (-) urinary changes Skin: (+) rashes Psych: (-) anxiety, depression Physical Exam Physical Exam: Neuro: AAOx4, PERRLA, no aphagia, memory changes, CNII-XII grossly intact HEENT: head normocephalic, moist mucus membranes. Trach stoma erythematous, no purulent drainage CV: S1/S2, (-) M/G/R, (-) edema, cap refill < 3 seconds Resp: Lungs inspiratory and expiratory wheezing. 8L trach collar. SpO2 96% GI: Abdomen S/NT/ND, Ax4 bowel sounds, (-) CVA tenderness Musculoskeletal: 5/5 B/L UE strength, 5/5 B/L LE strength. No gait disturbance Skin: (+) rashes , (-) erythema. (+) psoriatic patches b/l elbows, knees and ankles. Psych: euthymic mood Results & Data Results & Data ([facility]) Vital Signs (Past 12 Hours) Vital Signs Temp Pulse Pulse Resp BP Pulse Ox O2 Del Method 07/30/22 18:01 183/158 H 07/30/22 18:01 95 H 22 98 07/30/22 18:00 95 07/30/22 17:30 98 07/30/22 17:30 211/124 H 07/30/22 17:18 95 H 24 99 07/30/22 17:17 230/115 H 07/30/22 17:30 94 H 26 H 98 Nebulizer, Trach Collar 07/30/22 17:14 88 L Trach Collar 07/30/22 17:13 98 H 35 H 88 L Room Air 07/30/22 12:32 36.9 C 93 H 24 176/79 H 93 Room Air O2 Flow Rate 07/30/22 18:01 07/30/22 18:01 07/30/22 18:00 07/30/22 17:30 07/30/22 17:30 07/30/22 17:18 07/30/22 17:17 07/30/22 17:30 9 07/30/22 17:14 07/30/22 17:13 07/30/22 12:32 Laboratory Results Short CBC 07/30/22 Range/Units 13:00 WBC 11.62 H (4.8-10.8) K/ul Hgb 15.0 (12.0-16.0) g/dl Hct 43.3 (37.0-47.0) % Plt Count 441 H (130-400) K/uL BMP 07/30/22 13:00 Sodium 144 Potassium 3.4 L Chloride 109 H Carbon Dioxide 21 BUN 21 Creatinine 1.28 H Glucose 89 Calcium 8.3 L Liver Function 07/30/22 Range/Units 13:00 Total Bilirubin 0.2 (0.2-1.0) mg/dl AST 52 H (13-39) U/L ALT 26 (7-52) U/L Alkaline Phosphatase 129 H (34-104) U/L Albumin 4.1 (3.4-5.0) gm/dl Diagnostic Findings Chest X-Ray 07/30/22 12:37 XR chest 2V PA/lateral CLINICAL HISTORY: SOB TECHNIQUE: 2 views of the chest were obtained. Comparison: Comparison is made to chest radiograph 08/09/2019 FINDINGS: No lines and tubes are seen. The cardiomediastinal silhouette is normal. The lungs are clear. No evidence of pleural effusion or pneumothorax. IMPRESSION: No acute abnormalities and in particular no evidence of pneumonia. ACT 112: Negative or not required by law. Electronically signed by: Adriel Orantes M.D. 07/30/2022 1:31 PM Code Status & VTE Plan Code Status Full Code in the event of cardiac or respiratory arrest VTE Prophylaxis Plan VTE Prophylaxis will be ordered: Yes Supervising Physician Co-Signing Physician Notes Care coordinated with EDGAR Souza. Agree with above note. Patient seen and examined. Please refer to her notes for full details. Vital signs reviewed. Physical exam: General exam: Alert and oriented. Not in acute distress. Neck s/p trach CVS: S1 and S2 heard, regular rate and rhythm, no murmurs. RS: b/l diminished breath sounds, no wheezing or crackles. ABD: Soft, bowel sounds present, nontender, no distention. MINER PLACER: Nonfocal. EXT: No edema, no erythema. Labs: Reviewed. Assessment and plan: 66 F with PMH of as per GI notes " familial adenomatous polyposis diagnosed in 1973 status post total colectomy with J pouch with recurrent residual adenomas, as well as disease complicated by a tubulovillous adenoma the ampullary that required Whipple in 2013" Hx of papillary thyroid cancer s/p total laryngectomy in 2006 s/p trach hx of COPD , DM, HTN hx of DVT presents with cough and fever last few days. COPD ex vbg ok having cough and sputum and fever wbc 11k. cxr ok empirically started on zosyn and doxy iv steroids nwb atc and prn follow cx monitor response if not improving will consult pulmonary will also check if dimer elevated will do ct chest pe study as patient has hx of dvt in the past HTN continue home meds amlodipine,coreg and losartan iv hydralazine prn DM hold home meds lantus and iss pharmacy consult Other diagnosis and plan of care as per EDGAR Souza. Joseph echevarria MD.
[2022-07-30] MEDS ORDERED: POTASSIUM CHLORIDE 10 MEQ TABCR PO ONE (18:53)
[2022-07-30 18:58] LABS: Base Excess VBG -5.7 mEq/L; HCO3 VBG 19 mmol/L; Oxygen Saturation VBG 73.8 %; PCO2 VBG 36 mmHg (38-50); PO2 VBG 42 mmHg; pH VBG 7.34 (7.36-7.41)
[2022-07-30] MEDS ORDERED: SODIUM CHLORIDE 0.9% 1000ML 1,000 ML IV SCH (20:00)
[2022-07-30] MEDS ORDERED: GLUCOSE 10 TAB/TUBE PO PRN (20:27)
[2022-07-30] MEDS ORDERED: GLUCAGON FOR INJ 1 MG VIAL SQ PRN (20:27)
[2022-07-30] MEDS ORDERED: GLUCOSE 40% GEL 15 GM TUBE PO PRN (20:27)
[2022-07-30] MEDS ORDERED: DEXTROSE 50% 50 ML SYRINGE IV PRN (20:27)
[2022-07-30] MEDS ORDERED: PHARMACY GLYCEMIC MGMT CONSULT PRN (20:27)
[2022-07-30] MEDS ORDERED: ALBUTEROL 0.083% NEBU SOLN 3 ML VIAL NEB SCH (21:00)
[2022-07-30] MEDS ORDERED: traZODone HCL 100 MG TAB PO SCH (21:00)
[2022-07-30] MEDS ORDERED: PIPERACILLIN/TAZOBACTAM 4.5 GM (over 30 mins) IV ONE (21:00)
[2022-07-30] MEDS ORDERED: CLOBETASOL PROPIONATE 0.05% OINT 15 GM TUBE EXT PRN (21:02)
[2022-07-30] MEDS: INSULIN ASPART PER UNIT SC SCH (21:27)
[2022-07-30] MEDS ORDERED: hydrALAZINE HCL 20 MG/ML VIAL IV PRN (21:31)
--- NOTE | 2022-07-30 21:50 | Communication Note ---
Date of Service: July 30, 2022 Mild elevation of troponin. mostly demand ischemia. will follow serial CE. Thanks
[2022-07-30 21:52] LABS: D Dimer 670 ug/L FEU (0-500)
[2022-07-30] MEDS ORDERED: LANTUS PER UNIT CHARGE SQ ONE (22:00)
[2022-07-30] MEDS: CYANOCOBALAMIN (B-12) 500 MCG TABLET PO SCH (22:08)
[2022-07-30] MEDS: TRIAMCINOLONE ACET 0.1% CR 15 GM TUBE TOP SCH (22:09)
[2022-07-30] MEDS: carvediloL 25 MG TAB PO SCH (22:09)
[2022-07-30] MEDS ORDERED: OPTIRAY 320 500ml IV ONE (22:50)
[2022-07-30] MEDS: methylPREDNISolone 40 MG in SYRINGE 0 ML IV SCH (23:29)
[2022-07-30] MEDS: DOXYCYCLINE HYCLATE 100 MG in DEXTROSE 5% 100 ML IV SCH (23:48)
[2022-07-31] MEDS: PIPERACILLIN/TAZOBACTAM 3.375 GM in DEXTROSE 5% 100 ML IV SCH ×3 (02:46→11:23)
[2022-07-31] MEDS: ALBUT/IPRATROP 3MG/0.5MG NEB 3 ML VIAL NEB PRN (04:51)
[2022-07-31 06:05] LABS: Hematocrit (blood only) 41.9 % (37.0-47.0); Hemoglobin 14.1 g/dl (12.0-16.0); Mean Corpuscular Hemoglobin 27.9 pg (25.0-34.0); Mean Corpuscular Hgb Conc 33.7 g/dL (32.0-36.0); Mean Platelet Volume 10.4 fL (9.4-12.4); Platelet Count 394 K/uL (130-400); RDW Coefficient of Variation 14.8 % (11.5-14.5); RDW Standard Deviation 44.6 fL (36.4-46.3); Red Blood Count 5.05 M/uL (4.20-5.40); White Blood Count 9.16 K/ul (4.8-10.8)
[2022-07-31] MEDS: LEVOTHYROXINE SODIUM 200 MCG TABLET PO SCH (06:33)
--- NOTE | 2022-07-31 06:33 | Ultrasound Report ---
BILATERAL LOWER EXTREMITY VENOUS DOPPLER HISTORY: Elevated d-dimer abn dimer COMPARISON STUDY: CTA chest of same day FINDINGS: There is normal compressibility, flow, and augmentation within the bilateral lower extremit y deep venous systems. Complex collection of the left popliteal fossa measures 4.5 x 3.3 x 2.0 cm sug gestive of a Duran's cyst. Collection within the distal thigh anterior to the femur may represent a j oint effusion, 6.3 x 1.7 x 6.7 cm. IMPRESSION: No DVT within the right or left lower extremity. ACT 112: Negative or not required by law. Electronically signed by: Mayo Batres M.D. 07/31/2022 6:31 AM
[2022-07-31 06:35] LABS: Estimated Average Glucose 171 mg/dl; Hemoglobin A1C 7.6 % (4.5-5.6)
[2022-07-31] MEDS: ALBUT/IPRATROP 3MG/0.5MG NEB 3 ML VIAL NEB SCH ×3 (07:24→15:55)
[2022-07-31 07:50] LABS: Potassium 4.2 mmol/L (3.5-5.1)
--- NOTE | 2022-07-31 07:51 | CT Scan Report ---
CT angio chest PE protocol CT DOSE: 517.39 mGy.cm HISTORY: 66 years-old Female with low o2. Acute hypoxia with shortness of breath TECHNIQUE: Multiple CTA images of the chest were obtained after the intravenous administration of 111 ml Optiray. Coronal and sagittal MIPS were obtained from the axial data set and were submitted for review. All measurements were obtained according to NASCET criteria. A dose lowering technique was u tilized adhering to the principles of ALARA. COMPARISON: Chest CT 11/18/2009 FINDINGS: CTA: Respiratory motion artifact limits evaluation of the pulmonary arterial tree. No central pulmonary em boli identified. Normal thoracic aorta. Mild coronary artery calcifications. No pericardial effusion. Heart size is normal. CT CHEST: No thyroid nodule. Nonspecific wall thickening throughout the trachea with suggested tracheostomy. No pneumothorax, pleural effusion or overt pulmonary edema. Bronchial wall thickening. Subpleural 5 mm solid nodule of the left upper lobe on image 242. 6 mm fissural nodule of the right middle lobe on im age 140 suggestive of a benign lymph node. Mild groundglass densities of the lung bases. 9 mm groundg lass nodular focus of the left upper lobe on image 229. Mild nonspecific distal esophageal wall thickening. Cholecystectomy with branching lucencies within t he liver. Hepatic steatosis. Unremarkable soft tissues. No acute fracture. IMPRESSION: 1. Limited exam as above. No pulmonary emboli are identified. 2. Nonspecific wall thickening of the trachea and bronchi may represent an infectious or inflammatory process. 3. Subtle patchy ill-defined bilateral groundglass densities of the lungs are suggestive of a nonspec ific pneumonitis with 9 mm groundglass nodular density of the left lung apex. 4. No pleural effusion or lymphadenopathy. 5. Branching lucencies of the liver suggestive of probable pneumobilia. ACT 112: Negative or not required by law. The above report was generated using voice recognition software. It may contain grammatical, syntax o r spelling errors. Electronically signed by: Mayo Batres M.D. 07/31/2022 7:49 AM
[2022-07-31 07:54] LABS: BUN Creatinine Ratio 24.8 (10-20); C Reactive Protein 2.07 mg/dl (0-0.5); Calcium 8.1 mg/dl (8.5-10.1); Est GFR (African American) 45.2 ml/min; Troponin I High Sensitivity 17.4 pg/ml (0-14)
[2022-07-31] MEDS: INSULIN ASPART PER UNIT SC SCH ×4 (08:43→21:35)
[2022-07-31] MEDS: LOSARTAN POTASSIUM 50 MG TAB PO SCH (08:44)
[2022-07-31] MEDS: amLODIPine BESYLATE 5 MG TAB PO SCH (08:44)
[2022-07-31] MEDS: carvediloL 25 MG TAB PO SCH ×2 (08:44→20:24)
[2022-07-31] MEDS: methylPREDNISolone 40 MG in SYRINGE 0 ML IV SCH ×2 (08:44→16:17)
[2022-07-31] MEDS: CYANOCOBALAMIN (B-12) 500 MCG TABLET PO SCH ×2 (08:45→20:24)
[2022-07-31] MEDS: PANTOprazole 40 MG TAB PO SCH (08:45)
[2022-07-31] MEDS: ENOXAPARIN INJ 40 MG/0.4 ML SYR SQ SCH (08:45)
[2022-07-31] MEDS: TRIAMCINOLONE ACET 0.1% CR 15 GM TUBE TOP SCH ×2 (08:46→20:25)
--- NOTE | 2022-07-31 08:53 | XRay Report ---
XR chest 1V portable HISTORY: 66 years-old Female SOB acute shortness of breath COMPARISON: CTA chest 07/30/2022 TECHNIQUE: AP view of the chest FINDINGS: Cardiomediastinal and hilar silhouettes are within normal limits. No pneumothorax, large pleural effu evangelina or overt pulmonary edema. Mild left basilar atelectasis. Bones appear grossly intact. IMPRESSION: No acute process. ACT 112: Negative or not required by law. The above report was generated using voice recognition software. It may contain grammatical, syntax o r spelling errors. Electronically signed by: Mayo Batres M.D. 07/31/2022 8:52 AM
[2022-07-31] MEDS: DOXYCYCLINE HYCLATE 100 MG in DEXTROSE 5% 100 ML IV SCH (08:59)
[2022-07-31] MEDS ORDERED: amLODIPine BESYLATE 5 MG TAB PO SCH (09:00)
[2022-07-31] MEDS ORDERED: LANTUS PER UNIT CHARGE SQ SCH (09:00)
--- NOTE | 2022-07-31 11:54 | Pharmacy Report ---
Pharmacy Glycemic Short Note 2 - Date of Service July 31, 2022 - Glycemic Short BSG Results (Last 24 hours): 07/30/22 07/30/22 07/31/22 13:00 21:18 05:31 Glucose 89 181 H POC Glucose 98 07/31/22 07:52 Glucose POC Glucose 162 H OUTPATIENT ANTIDIABETIC REGIMEN: * A1c = 7.6% * Repaglinide + metformin ASSESSMENT: * Mallory is a 66 yo T2DM admitted with SOB/wheezing, COPD exacerbation. * Patient started on high dose IV steroids (solu medrol 40 mg IV q8h). * She received Lantus 8 units SQ last evening. Fasting BSG of 162 mg/dL. Anticipate fasting will trend up with repeated doses of IV steroids. Will give a one time dose of 15 units this morning and then dose per BSG scale BID. * Novolog based on weight + stress 3 PLAN FOR INPATIENT GLYCEMIC CONTROL: * Hold outpatient oral diabetes medications * Basal insulin * Lantus 15 units SQ this morning, then per scale BID: * 0 units for BSG < 1100 * 8 units for BSG 110 -180 * 15 units for BSG > 180 * Bolus insulin * NovoLog per scale ACHS or Q6hrs while NPO * Goal Range: Low 120 mg/dL - High 150 mg/dL * Correction Factor: 20 mg/dL/unit * Nutritional / Prandial insulin per carb ratio of 1 unit per 6 grams CHO consumed
--- NOTE | 2022-07-31 13:43 | Pulmonary Consultation ---
Date of Consultation July 31, 2022 Assessment & Plan (1) Asthma exacerbation: Pt is a 66 yo female with complex PMH of DM, COPD, DVT s/p surgical procedure, HLD, HTN, and FAP. She has had colon cancer s/p J pouch, pancreatic cancer s/p whipple procedure, and thyroid/throat cancer s/p laryngectomy w/ tracheostomy. She presented to the hospital 07/30 due to increased SOB since Friday 07/28. COPD/asthma exacerbation - acute on chronic; CT scan did not show much emphysematous change lending itself more to asthma rather than COPD - recommend switch from doxy to azithro as doxy was started outpatient and this hospitalization should be considered a failure of treatment - recommend addition of budesonide, brovana, and hypertonic saline to open airways and loosen secretions - recommend switch to PO steroids when able - would also recommend repeat BMP to ensure no worsening of metabolic acidosis Please refer to Dr. Jacome's note for additional recommendations. (2) Stenosis of tracheal stoma: (3) Metabolic acidosis: Plan Diet: heart healthy, carb consistent, easy to chew Fluids: none Code: full DVT ppx: lovenox 40 mg daily Supervising Physician Co-Signing Physician Notes Patient seen and examined with resident physician. Agree with assessment and plan aside for any additions/exceptions noted: Symptoms most likely secondary to stenosis of the tracheal stoma. Recommend the use of of her tracheal stoma prosthesis. Recommend outpatient follow-up with ENT to consider revision of her tracheal stoma. Additionally, she appears to have asthma that appears to be in a mild exacerbation. Recommend LABA and ICS nebulizer therapy. Transition to a short course of prednisone therapy. Switch antibiotics from doxycycline to azithromycin. There does not appear to be any significant hypoxemia at rest. Her hypoxemia seems to be mediated due to cough because of her tracheal stenosis which should be improved with the use of the prosthesis. Wean off oxygen as able. Patient likely stable for discharge home tomorrow. No role for bronchoscopic evaluation at this time. Recommend follow-up with her outpatient barrel raiser helper, Dr. Garay. History of Present Illness Reason for Consultation: COPD exacerbation Requesting Physician: EDGAR Souza Attending Physician: Mariah Oh DO History of Present Illness Pt is a 66 yo female with complex PMH of DM, COPD, DVT s/p surgical procedure, HLD, HTN, and FAP. She has had colon cancer s/p J pouch, pancreatic cancer s/p whipple procedure, and thyroid/throat cancer s/p laryngectomy w/ tracheostomy. She presented to the hospital 07/30 due to increased SOB since Friday 07/28. Pt seen at bedside. She explains that she has been feeling SOB since Wednesday. She has been around someone who had bronchitis. She also endorses feeling feverish alternating with chills. She explains that ever since her tracheostomy was placed, she has been producing mucous. The color varies between light brown to clear. She describes the consistency as "gummy." She has not noticed a change in what she is bringing up over the past few days. She relays frustrations because she says no one has ever been able to give her a reason for her bringing up mucous daily. She does not require oxygen at home and she does not use inhalers at home. Her lab work initially showed a slight leukocytosis which has since resolved. VBG showed pH of 7.34, pCO2 36, and pO2 of 42. Upon presentation, she was hypokalemic which has been repleted. Her Cr has slightly worsened from 1.28 to 1 .41. Lactate upon admission 0.8. Serial troponin negative. Elevated CRP at 2.07 and ESR at 35. CXR upon admission showed no evidence of pneumonia. Repeat CXR 07/31 showed no change. Chest CTA showed no PE and nonspecific pneumonitis of LL apex. Doppler negative for DVT. Pt was started on zosyn empirically which has since been discontinued. She remains on doxycycline 100 mg BID. She was also started on methylprednisolone at 40 mg TID. She also has duoneb nebulizer QID w/ duoneb q4hr PRN. Allergies Allergy/AdvReac Type Severity Reaction Status Date / Time NSAIDS (Non-Steroidal Allergy Unknown Ulcer & Verified 07/30/22 19:02 Anti-Inflamma anemia zolpidem [From Ambien] Allergy Unknown pysch Verified 07/30/22 19:02 complications, dizzy hydrochlorothiazide AdvReac Acute Verified 07/30/22 19:02 kidney injury rosuvastatin [From Crestor] AdvReac Elavated Verified 07/30/22 19:02 liver function test Home Medications Medication Instructions Recorded Confirmed Type cyanocobalamin (vitamin B-12) 500 500 mcg sublingual BID 08/09/19 07/30/22 History mcg disintegrating tablet,sublingual losartan 100 mg tablet (Cozaar) 100 mg PO QAM 08/09/19 07/30/22 History pantoprazole 40 mg tablet,delayed 40 mg PO QAM 08/09/19 07/30/22 History release (Protonix) triamcinolone acetonide 0.1 % 1 appln topical BID 08/09/19 07/30/22 History topical cream repaglinide 1 mg tablet 1 mg PO BID 11/27/21 07/30/22 History albuterol sulfate 2.5 mg/3 mL 2.5 mg inhalation DIRECTED 07/30/22 07/30/22 History (0.083 %) solution for nebulization amlodipine 10 mg tablet 10 mg PO DAILY 07/30/22 07/30/22 History blood-glucose sensor (Dexcom G6 07/30/22 07/30/22 History Sensor device) carvedilol 25 mg tablet 25 mg PO BID 07/30/22 07/30/22 History clobetasol 0.05 % topical ointment 1 applic topical BID PRN flare ups 07/30/22 07/30/22 History (Temovate) doxycycline hyclate 100 mg capsule 100 mg PO DIRECTED 07/30/22 07/30/22 History ipratropium 0.5 mg-albuterol 3 mg 3 ml inhalation Q6H PRN Shortness 07/30/22 07/30/22 History (2.5 mg base)/3 mL nebulization Of Breath Or Wheezing soln levothyroxine 200 mcg tablet 200 mcg PO DAILY 07/30/22 07/30/22 History metformin 1,000 mg tablet 1,000 mg PO BID 07/30/22 07/30/22 History repaglinide 1 mg tablet 0.5 mg PO DIRECTED 07/30/22 07/30/22 History Patient History Medical History (Updated 07/31/22 @ 17:17 by Brian Jacome MD) Acute exacerbation of chronic obstructive pulmonary disease (COPD) Adrenal adenoma Has upcoming appt with endo PCP did work up prior (cortisol normal, DHEA hormone normal, 24 hour catecholamines WNL, plasma renin low (could be due to BP meds per PCP)) Asthma Asthma exacerbation Chronic obstructive pulmonary disease CKD (chronic kidney disease), stage III Diabetes DVT (deep venous thrombosis) WITH SURGERY TRACH 2004-WAS ON BLOOD THINNER FOR A PERIOD OF TIME-THEN OFF-NO ISSUES SINCE History of colon cancer Dx'ed in 2002 (has familial adenomatous polyposis) S/p ileostomy and then J pouch procedure No chemo or XRT History of pancreatic cancer 2017 S/p Whipple procedure No chemo or XRT History of throat cancer Dxed 2006- s/p laryngectomy with trach placement No chemo or XRT History of thyroid cancer Papillary thyroid carcinoma (with throat cancer per patient) 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 S/p stomaplasty (11/2020) and tracheostoma revision (05/2021) S/p thyroidectomy No chemo or XRT Hyperlipidemia Hypertension Hypertensive urgency Hypothyroidism associated with surgical procedure Hypoxia Murmur, cardiac F/U DR DEE ACEVEDO No murmur per routine 06/2021 cardio visit SOB (shortness of breath) on exertion 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 No current issues Surgical History History of bowel resection WITH J POUCH History of colonoscopy History of esophagogastroduodenoscopy (EGD) History of radical neck dissection WITH TRACHEOSTOMY-2004 History of thyroidectomy History of Whipple procedure X 2-LAST 2012 Family History Family/Other Heart disease Lung disease Cancer Father Family hx of colon cancer Sister Family hx of colon cancer Social History Smoking Status: Former smoker Second Hand Exposure: Yes; Do You Dip or Chew Tobacco: No; Hx Alcohol Use: No Hx Substance Use: No Preferred Language: Montenegrin Communication Ability: Effective 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 Vitals WNL. O2 sat in the 90s w/ 9L via trach collar. Neck: No erythema noted around tracheostomy site. Respiratory: Expiratory wheezing noted moreso in the superior lobes. No rhonchi or crackles. Nonlabored breathing. Cardiovascular: RRR. No murmur noted. No LE edema. Skin: Flares of psoriasis noted on right foot and bilateral elbows. Psychiatric: Alert. Mood and affect congruent. Results & Data Results & Data ([facility]) Vital Signs (Past 12 Hours) Vital Signs Temp Pulse Resp BP Pulse Ox O2 Del Method O2 Flow Rate 07/31/22 12:15 36.9 C 88 26 H 136/76 94 Trach Collar 9.0 07/31/22 11:13 80 23 93 Trach Collar 07/31/22 11:09 16 07/31/22 08:27 36.7 C 75 26 H 164/82 H 90 Trach Collar 9.0 07/31/22 07:29 81 22 95 Trach Collar 07/31/22 05:57 74 22 93 Trach Collar 07/31/22 03:23 36.8 C 71 18 147/72 H 92 Trach Collar FiO2 07/31/22 12:15 07/31/22 11:13 50 07/31/22 11:09 07/31/22 08:27 07/31/22 07:29 50 07/31/22 05:57 50 07/31/22 03:23 Resident Activity Tracking Resident Involvement: Resident Care Provided Care Provided: Adult Hospital Medicine
--- NOTE | 2022-07-31 15:05 | Electrocardiogram Report ---
Test Reason : Blood Pressure : / mmHG Vent. Rate : 091 BPM Atrial Rate : 091 BPM P-R Int : 136 ms QRS Dur : 082 ms QT Int : 390 ms P-R-T Axes : 068 010 -19 degrees QTc Int : 479 ms Poor data quality, interpretation may be adversely affected Normal sinus rhythm Nonspecific ST abnormality Abnormal ECG When compared with ECG of 15-DEC-2021 09:55, Vent. rate has increased BY [address] now depressed in Inferior leads Confirmed by Satnam Dooley ([id number]) on 07/31/2022 3:04:39 PM Referred By: Confirmed By:Holger Dooley
--- NOTE | 2022-07-31 16:11 | Hospitalist Progress Note ---
Date of Service July 31, 2022 Assessment & Plan (1) Acute exacerbation of chronic obstructive pulmonary disease (COPD): Plan: de-escalate steroids to short course prednisone per pulm, switch doxy to Azithro. Cont nebs PRN (2) Hypoxia: Plan: support as needed (3) Tracheostomy in place: Plan: continue to use prosthetic per pulm, also outpatient ENT follow-up is recommended (4) Hypertension: Plan: chronic, stable. Cont current therapy. (5) Diabetes: Plan: chronic, at goal. Cont insulin while hospitalized. (6) History of Whipple procedure: Plan: h/o pancreatic cancer in the past, h/o FAP (7) History of throat cancer: (8) History of pancreatic cancer: (9) Acute kidney injury: Plan: creatinine with some worsening to 1.4 today. She notably had contrast administered yesterday. Will add some IVF and repeat BMP tomorrow. Avoid further contrast. (10) H/O deep venous thrombosis: Plan: H/O DVT: -years ago; was on anticoagulation but discontinued more than a year ago -INR currently 1.7 off anticoagulation. Repeat in am and may need to do further workup for liver disease, nutritional deficiency, etc. (11) Coagulopathy: Plan: plan as above. PTT and INR in am. (12) Psoriasis: Plan: She has scaly active plaques on extensor surfaces of elbows, cont steroid cream. Follows with derm. Lovenox Full Code Dispo-to home when clinically improved. Mariah Oh DO [facility] Hospitalist Plan Admission and Anticipated Discharge Date Admission Date: July 30, 2022 Subjective 66-year-old female with asthma and tracheostomy in place presents with shortness of breath and cough for 3 days. She feels better since receiving Solu-Medrol nebulized bronchodilators and antibiotics. She remains afebrile. Review of Systems Review of Systems: All systems were otherwise reviewed and negative except as indicated above. Physical Exam Physical Exam: CONSTITUTIONAL: WNWD, vitals as above, generally well- appearing, NAD EYES: normal conjunctivae, no scleral icterus ENT: external ear and nose normal, MMM NECK: trachea midline, tracheostomy stoma present RESPIRATORY: faint rales throughout, normal respiratory effort. CARDIOVASCULAR: regular rate and rhythm, S1 and 2 heard without murmurs, gallops or rubs, no JVD, no peripheral edema CHEST: inspection of chest was normal GASTROINTESTINAL: soft, nontender, ND, no guarding MUSCULOSKELETAL: strength 5/5 throughout, head is normocephalic and atraumatic, neck supple, normal palpation of chest wall without tenderness SKIN: warm and dry, psoriatic plaques on extensor surfaces around elbows bilaterally NEUROLOGIC: CN 2-12 grossly intact, no sensory deficit, normal cognition, uses device to help her speak, no tremor PSYCHIATRIC: alert cooperative and oriented to person, place and time. Euthymic mood, makes good eye contact, language grossly intact, recent and remote memory grossly intact. Results & Data Results & Data ([facility]) Vital Signs (Past 12 Hours) Vital Signs Temp Pulse Resp BP Pulse Ox O2 Del Method O2 Flow Rate 07/31/22 15:55 86 18 97 Trach Collar 07/31/22 12:15 36.9 C 88 26 H 136/76 94 Trach Collar 9.0 07/31/22 11:13 80 23 93 Trach Collar 07/31/22 11:09 16 07/31/22 08:27 36.7 C 75 26 H 164/82 H 90 Trach Collar 9.0 07/31/22 07:29 81 22 95 Trach Collar 07/31/22 05:57 74 22 93 Trach Collar FiO2 07/31/22 15:55 50 07/31/22 12:15 07/31/22 11:13 50 07/31/22 11:09 07/31/22 08:27 07/31/22 07:29 50 07/31/22 05:57 50 Laboratory Results Short CBC 07/31/22 Range/Units 05:31 WBC 9.16 (4.8-10.8) K/ul Hgb 14.1 (12.0-16.0) g/dl Hct 41.9 (37.0-47.0) % Plt Count 394 (130-400) K/uL BMP 07/31/22 05:31 Sodium 139 Potassium 4.2 D Chloride 104 Carbon Dioxide 19 L BUN 35 H Creatinine 1.41 H Glucose 181 H Calcium 8.1 L Diagnostic Findings Chest CTA 07/30/22 22:04 CT angio chest PE protocol CT DOSE: 517.39 mGy.cm HISTORY: 66 years-old Female with low o2. Acute hypoxia with shortness of breath TECHNIQUE: Multiple CTA images of the chest were obtained after the intravenous administration of 111 ml Optiray. Coronal and sagittal MIPS were obtained from the axial data set and were submitted for review. All measurements were obtained according to NASCET criteria. A dose lowering technique was utilized adhering to the principles of ALARA. COMPARISON: Chest CT 11/18/2009 FINDINGS: CTA: Respiratory motion artifact limits evaluation of the pulmonary arterial tree. No central pulmonary emboli identified. Normal thoracic aorta. Mild coronary artery calcifications. No pericardial effusion.Heart size is normal. CT CHEST: No thyroid nodule. Nonspecific wall thickening throughout the trachea with suggested tracheostomy. No pneumothorax, pleural effusion or overt pulmonary edema. Bronchial wall thickening. Subpleural 5 mm solid nodule of the left upper lobe on image 242. 6 mm fissural nodule of the right middle lobe on image 140 suggestive of a benign lymph node. Mild groundglass densities of the lung bases. 9 mm groundglass nodular focus of the left upper lobe on image 229. Mild nonspecific distal esophageal wall thickening. Cholecystectomy with branching lucencies within the liver. Hepatic steatosis. Unremarkable soft tissues. No acute fracture. IMPRESSION: 1. Limited exam as above. No pulmonary emboli are identified. 2. Nonspecific wall thickening of the trachea and bronchi may represent an infectious or inflammatory process. 3. Subtle patchy ill-defined bilateral groundglass densities of the lungs are suggestive of a nonspecific pneumonitis with 9 mm groundglass nodular density of the left lung apex. 4. No pleural effusion or lymphadenopathy. 5. Branching lucencies of the liver suggestive of probable pneumobilia. ACT 112: Negative or not required by law. The above report was generated using voice recognition software. It may contain grammatical, syntax or spelling errors. Electronically signed by: Mayo Batres M.D. 07/31/2022 7:49 AM Venous Doppler Study 07/30/22 22:04 BILATERAL LOWER EXTREMITY VENOUS DOPPLER HISTORY: Elevated d-dimer abn dimer COMPARISON STUDY: CTA chest of same day FINDINGS: There is normal compressibility, flow, and augmentation within the bilateral lower extremity deep venous systems. Complex collection of the left popliteal fossa measures 4.5 x 3.3 x 2.0 cm suggestive of a Duran's cyst. Collection within the distal thigh anterior to the femur may represent a joint effusion, 6.3 x 1.7 x 6.7 cm. IMPRESSION: No DVT within the right or left lower extremity. ACT 112: Negative or not required by law. Electronically signed by: Mayo Batres M.D. 07/31/2022 6:31 AM Chest X-Ray 07/31/22 08:00 XR chest 1V portable HISTORY: 66 years-old Female SOB acute shortness of breath COMPARISON: CTA chest 07/30/2022 TECHNIQUE: AP view of the chest FINDINGS: Cardiomediastinal and hilar silhouettes are within normal limits. No pneumothorax, large pleural effusion or overt pulmonary edema. Mild left basilar atelectasis. Bones appear grossly intact. IMPRESSION: No acute process. ACT 112: Negative or not required by law. The above report was generated using voice recognition software. It may contain grammatical, syntax or spelling errors. Electronically signed by: Mayo Batres M.D. 07/31/2022 8:52 AM Medications Administered Current Inpatient Medications Acetaminophen (Acetaminophen 325 Mg Tab) 650 mg PO Q4H PRN PRN Reason: Pain or Fever Stop: 08/29/22 18:22 Al Hydrox/Mg Hydrox/Simethicone (Aluminum/Magnesium Susp 30 Ml Udc) 15 ml PO Q4H PRN PRN Reason: Dyspepsia Stop: 08/29/22 18:22 Albuterol (Albut/Ipratrop 3mg/0.5mg Neb 3 Ml Vial) 3 ml NEB QIDR LAURA; Protocol Stop: 08/30/22 06:59 Last Admin: 07/31/22 15:55 Dose: 3 ml Albuterol (Albut/Ipratrop 3mg/0.5mg Neb 3 Ml Vial) 3 ml NEB Q4R PRN; Protocol PRN Reason: Shortness Of Breath Or Wheezing Stop: 08/29/22 22:59 Last Admin: 07/31/22 04:51 Dose: 3 ml Amlodipine Besylate (Amlodipine Besylate 5 Mg Tab) 10 mg PO DAILY [facility]URA Stop: 08/30/22 08:59 Last Admin: 07/31/22 08:44 Dose: 10 mg Carvedilol (Carvedilol 25 Mg Tab) 25 mg PO BID [facility]A Stop: 08/29/22 20:59 Last Admin: 07/31/22 08:44 Dose: 25 mg Clobetasol Propionate (Clobetasol Propionate 0.05% Oint 15 Gm Tube) 1 appln EXT BID PRN PRN Reason: flare ups Stop: 08/29/22 21:01 Cyanocobalamin (Cyanocobalamin (B-12) 500 Mcg Tablet) 500 mcg PO BID [facility] Stop: 08/29/22 20:59 Last Admin: 07/31/22 08:45 Dose: 500 mcg Dextrose (Dextrose 50% 50 Ml Syringe) 25 - 50 ml IV UD PRN; Protocol PRN Reason: Hypoglycemia Protocol Stop: 08/29/22 20:26 Enoxaparin Sodium (Enoxaparin Inj 40 Mg/0.4 Ml Syr) 40 mg SQ QAM [facility] Stop: 08/30/22 08:59 Last Admin: 07/31/22 08:45 Dose: 40 mg Glucagon (Glucagon For Inj 1 Mg Vial) 1 mg SQ UD PRN; Protocol PRN Reason: Hypoglycemia Protocol Stop: 08/29/22 20:26 Glucose (Glucose 40% Gel 15 Gm Tube) 15 - 30 gm PO UD PRN; Protocol PRN Reason: Hypoglycemia Protocol Stop: 08/29/22 20:26 Glucose (Glucose 10 Tab/Tube) 4 - 8 tab PO UD PRN; Protocol PRN Reason: Hypoglycemia Treatment Stop: 08/29/22 20:26 Hydralazine HCl (Hydralazine Hcl 20 Mg/Ml Vial) 7.5 mg IV Q6H PRN PRN Reason: Hypertension Stop: 08/29/22 21:30 Doxycycline Hyclate 100 mg/ (Dextrose) 110 mls @ 50 mls/hr IV Q12H [facility] Stop: 08/06/22 20:59 Last Infusion: 07/31/22 11:20 Dose: Infused Methylprednisolone 40 mg/ (Syringe) 0.64 mls @ 1.5 mls/min IV Q8H [facility] Stop: 08/30/22 00:00 Last Admin: 07/31/22 08:44 Dose: 1.5 mls/min Insulin Aspart (Insulin Aspart Per Unit) 0 units SC ACHS [facility] Stop: 08/29/22 20:59 Last Admin: 07/31/22 13:09 Dose: 9 units Insulin Glargine (Lantus Per Unit Charge) 0 units SQ BID [facility]; Protocol Stop: 08/30/22 20:59 Levothyroxine Sodium (Levothyroxine Sodium 200 Mcg Tablet) 200 mcg PO DAILYBB [facility] Stop: 08/30/22 06:29 Last Admin: 07/31/22 06:33 Dose: 200 mcg Losartan Potassium (Losartan Potassium 50 Mg Tab) 100 mg PO QAM [facility] Stop: 08/30/22 08:59 Last Admin: 07/31/22 08:44 Dose: 100 mg Magnesium Hydroxide (Magnesium Hydroxide Susp 30 Ml Udc) 30 ml PO Q12H PRN PRN Reason: Constipation Stop: 08/29/22 18:22 Miscellaneous (Carbohydrates For Hypoglycemia ) 15 - 30 gm PO UD PRN PRN Reason: Hypoglycemia Protocol Stop: 08/29/22 20:26 Miscellaneous Information (Pharmacy Glycemic Mgmt Consult) 1 each N/A UD PRN PRN Reason: Consult Stop: 08/29/22 20:26 Ondansetron HCl (Ondansetron Inj 2 Mg/Ml 2 Ml Vial) 4 mg IV Q6H PRN PRN Reason: Nausea Stop: 08/29/22 18:22 Pantoprazole Sodium (Pantoprazole 40 Mg Tab) 40 mg PO QAM [facility] Stop: 08/30/22 08:59 Last Admin: 07/31/22 08:45 Dose: 40 mg Polyethylene Glycol (Polyethylene (Miralax) 17 Gm Pack) 17 gm PO DAILY PRN PRN Reason: Constipation Stop: 08/29/22 18:22 Triamcinolone Acetonide (Triamcinolone Acet 0.1% Cr 15 Gm Tube) 1 appln TOP BID [facility] Stop: 08/29/22 20:59 Last Admin: 07/31/22 08:46 Dose: 1 appln
--- NOTE | 2022-07-31 16:27 | Billing Data ---
Date of Service July 31, 2022 Coding Level of Care Code 23806 INT INP/OBS CARE
[2022-07-31] MEDS ORDERED: SODIUM CHLORIDE 0.9% 500 ML IV SCH (18:00)
[2022-07-31] MEDS ORDERED: ARFORMOTEROL TART 15MCG/2ML VIAL INH SCH (19:00)
[2022-07-31] MEDS ORDERED: Nursing to Pharmacy Communication SCH (19:15)
[2022-07-31] MEDS ORDERED: SODIUM CHLORIDE 0.9% 1000ML 1,000 ML IV SCH (19:30)
[2022-07-31] MEDS: SODIUM CHLOR 7% 4 ML NEB NEB SCH (19:41)
[2022-07-31] MEDS: FORMOTEROL 20 MCG/2 ML VIAL INH SCH (19:41)
[2022-07-31] MEDS: BUDESONIDE 0.5 MG/2 ML VIAL (PULMICORT) NEB SCH (19:41)
[2022-07-31] MEDS: LANTUS PER UNIT CHARGE SQ SCH (21:54)
[2022-08-01] MEDS: LEVOTHYROXINE SODIUM 200 MCG TABLET PO SCH (04:59)
[2022-08-01] MEDS: FORMOTEROL 20 MCG/2 ML VIAL INH SCH ×2 (05:21→18:09)
[2022-08-01] MEDS: BUDESONIDE 0.5 MG/2 ML VIAL (PULMICORT) NEB SCH ×2 (05:21→18:09)
[2022-08-01] MEDS: SODIUM CHLOR 7% 4 ML NEB NEB SCH ×2 (05:21→18:09)
[2022-08-01 08:02] LABS: Hematocrit (blood only) 38.6 % (37.0-47.0); Hemoglobin 12.9 g/dl (12.0-16.0); Mean Corpuscular Hemoglobin 27.8 pg (25.0-34.0); Mean Corpuscular Hgb Conc 33.4 g/dL (32.0-36.0); Mean Corpuscular Volume 83.2 fL (80.0-100.0); Mean Platelet Volume 10.1 fL (9.4-12.4); Platelet Count 355 K/uL (130-400); RDW Coefficient of Variation 14.7 % (11.5-14.5); RDW Standard Deviation 44.3 fL (36.4-46.3); Red Blood Count 4.64 M/uL (4.20-5.40); White Blood Count 11.53 K/ul (4.8-10.8)
[2022-08-01 08:13] LABS: INR 1.5 (0.9-1.1); Partial Thromboplastin Ratio 1.1; Partial Thromboplastin Time 29.2 Seconds (21.0-31.0); Prothrombin Time 16.1 Seconds (9.0-12.0)
[2022-08-01 08:37] LABS: Bilirubin,Total 0.2 mg/dl (0.2-1.0); Calcium 8.1 mg/dl (8.5-10.1); Magnesium 2.4 mg/dl (1.7-2.4); Potassium 3.6 mmol/L (3.5-5.1)
[2022-08-01 08:43] LABS: BUN Creatinine Ratio 29.7 (10-20); Creatinine Clr Calc Pharmacy 41.2 ml/min; Est GFR (African American) 43.7 ml/min; Est GFR (Non-African American) 37.7 ml/min
[2022-08-01] MEDS: INSULIN ASPART PER UNIT SC SCH ×4 (09:25→21:45)
[2022-08-01] MEDS: predniSONE 20 MG TAB PO SCH (09:26)
[2022-08-01] MEDS: ENOXAPARIN INJ 40 MG/0.4 ML SYR SQ SCH (09:26)
[2022-08-01] MEDS: LANTUS PER UNIT CHARGE SQ SCH ×2 (09:26→21:46)
[2022-08-01] MEDS: amLODIPine BESYLATE 5 MG TAB PO SCH (09:27)
[2022-08-01] MEDS: AZITHROMYCIN 250 MG TAB PO SCH (09:27)
[2022-08-01] MEDS: CYANOCOBALAMIN (B-12) 500 MCG TABLET PO SCH ×2 (09:31→21:47)
[2022-08-01] MEDS: PANTOprazole 40 MG TAB PO SCH (09:31)
[2022-08-01] MEDS: LOSARTAN POTASSIUM 50 MG TAB PO SCH (09:31)
[2022-08-01] MEDS: carvediloL 25 MG TAB PO SCH ×2 (09:31→21:47)
[2022-08-01] MEDS: TRIAMCINOLONE ACET 0.1% CR 15 GM TUBE TOP SCH ×2 (09:31→21:46)
[2022-08-01] MEDS: ALBUT/IPRATROP 3MG/0.5MG NEB 3 ML VIAL NEB PRN (11:39)
[2022-08-01 11:43] LABS: Albumin Globulin Ratio 1.3 (0.9-2); Albumin Level 3.4 gm/dl (3.4-5.0); Globulin 2.6 gm/dl (2.5-4.0)
--- NOTE | 2022-08-01 14:54 | Hospitalist Progress Note ---
Date of Service August 01, 2022 Assessment & Plan (1) Acute exacerbation of chronic obstructive pulmonary disease (COPD): Plan: improved but has some occlusion issues with her tracheostomy stoma which needs revision. cont nebs, prednisone, bronchodilator therapy. (2) Acute kidney injury: Plan: creatinine with some worsening to 1.4 today. She notably had contrast administered yesterday. Added IVF overnight and repeat BMP is still 1.4 which is consistent with a contrast induced nephropathy. Avoid further contrast. (3) Coagulopathy: Plan: INR 1.7 on arrival without use of anticoagulant. PTT and INR this morning are still elevated but improved. No bleeding. Refer for outpatient workup with hematology if it persists. Etiologies include but not limited to nutritional deficiency, underlying occult infection or other such as medication use or inherited condition. INR was normal in 2009 per outpatient records, so likely acquired. ?related to h/o abdominal cancers s/p abdominal procedures (4) Hypoxia: Plan: support as needed, recorded as 90% on room air this morning. (5) Tracheostomy in place: Plan: continue to use prosthetic per pulm, also outpatient ENT follow-up is recom mended (6) Hypertension: Plan: chronic, stable. Cont current therapy. (7) Diabetes: Plan: chronic, at goal. Cont insulin while hospitalized. (8) History of Whipple procedure: Plan: h/o pancreatic cancer in the past, h/o FAP (9) History of throat cancer: (10) History of pancreatic cancer: (11) H/O deep venous thrombosis: Plan: H/O DVT: -years ago; was on anticoagulation but discontinued more than a year ago (12) Psoriasis: Plan: She has scaly active plaques on extensor surfaces of elbows, cont steroid cream. Follows with derm. Lovenox Full Code Dispo-to home when clinically improved. Mariah Oh DO [facility] Hospitalist Plan Admission and Anticipated Discharge Date Admission Date: July 30, 2022 Subjective 66-year-old female with asthma and tracheostomy in place presents with shortness of breath and cough for 3 days. She feels better since receiving Solu-Medrol nebulized bronchodilators and antibiotics. She remains afebrile. Review of Systems Review of Systems: All systems were otherwise reviewed and negative except as indicated above. Physical Exam Physical Exam: CONSTITUTIONAL: WNWD, vitals as above, generally well- appearing, NAD EYES: normal conjunctivae, no scleral icterus ENT: external ear and nose normal, MMM NECK: trachea midline, tracheostomy stoma present RESPIRATORY: faint rales throughout, normal respiratory effort. CARDIOVASCULAR: regular rate and rhythm, S1 and 2 heard without murmurs, gallops or rubs, no JVD, no peripheral edema CHEST: inspection of chest was normal GASTROINTESTINAL: soft, nontender, ND, no guarding MUSCULOSKELETAL: strength 5/5 throughout, head is normocephalic and atraumatic, neck supple, normal palpation of chest wall without tenderness SKIN: warm and dry, psoriatic plaques on extensor surfaces around elbows bilaterally NEUROLOGIC: CN 2-12 grossly intact, no sensory deficit, normal cognition, uses device to help her speak, no tremor PSYCHIATRIC: alert cooperative and oriented to person, place and time. Euthymic mood, makes good eye contact, language grossly intact, recent and rem ote memory grossly intact. Results & Data Results & Data ([facility]) Vital Signs (Past 12 Hours) Vital Signs Temp Pulse Resp BP Pulse Ox O2 Del Method O2 Flow Rate 08/01/22 12:47 36.8 C 69 24 167/80 H 90 Trach Collar 6.0 08/01/22 11:42 20 93 Trach Collar 6 08/01/22 08:33 36.8 C 67 22 131/69 90 Trach Collar 6.0 08/01/22 05:23 85 16 90 Room Air 08/01/22 04:57 36.9 C 80 18 151/76 H 90 Room Air FiO2 08/01/22 12:47 08/01/22 11:42 28 08/01/22 08:33 08/01/22 05:23 08/01/22 04:57 Laboratory Results Short CBC 08/01/22 Range/Units 07:25 WBC 11.53 H (4.8-10.8) K/ul Hgb 12.9 (12.0-16.0) g/dl Hct 38.6 (37.0-47.0) % Plt Count 355 (130-400) K/uL BMP 08/01/22 07:25 Sodium 143 Potassium 3.6 Chloride 112 H Carbon Dioxide 25 BUN 43 H Creatinine 1.45 H Glucose 134 H Calcium 8.1 L Liver Function 08/01/22 Range/Units 07:25 Total Bilirubin 0.2 (0.2-1.0) mg/dl AST 57 H (13-39) U/L ALT 30 (7-52) U/L Alkaline Phosphatase 94 (34-104) U/L Albumin 3.4 (3.4-5.0) gm/dl Medications Administered Current Inpatient Medications Acetaminophen (Acetaminophen 325 Mg Tab) 650 mg PO Q4H PRN PRN Reason: Pain or Fever Stop: 08/29/22 18:22 Last Admin: 07/31/22 22:16 Dose: 650 mg Al Hydrox/Mg Hydrox/Simethicone (Aluminum/Magnesium Susp 30 Ml Udc) 15 ml PO Q4H PRN PRN Reason: Dyspepsia Stop: 08/29/22 18:22 Albuterol (Albut/Ipratrop 3mg/0.5mg Neb 3 Ml Vial) 3 ml NEB Q4R PRN; Protocol PRN Reason: Shortness Of Breath Or Wheezing Stop: 08/29/22 22:59 Last Admin: 08/01/22 11:39 Dose: 3 ml Amlodipine Besylate (Amlodipine Besylate 5 Mg Tab) 10 mg PO DAILY [facility] Stop: 08/30/22 08:59 Last Admin: 08/01/22 09:27 Dose: 10 mg Azithromycin (Azithromycin 250 Mg Tab) 500 mg PO QAM [facility] Stop: 08/08/22 08:59 Last Admin: 08/01/22 09:27 Dose: 500 mg Budesonide (Budesonide 0.5 Mg/2 Ml Vial (Pulmicort)) 0.5 mg NEB BIDR [facility] Stop: 08/30/22 18:59 Last Admin: 08/01/22 05:21 Dose: 0.5 mg Carvedilol (Carvedilol 25 Mg Tab) 25 mg PO BID [facility] Stop: 08/29/22 20:59 Last Admin: 08/01/22 09:31 Dose: 25 mg Clobetasol Propionate (Clobetasol Propionate 0.05% Oint 15 Gm Tube) 1 appln EXT BID PRN PRN Reason: flare ups Stop: 08/29/22 21:01 Cyanocobalamin (Cyanocobalamin (B-12) 500 Mcg Tablet) 500 mcg PO BID [facility] Stop: 08/29/22 20:59 Last Admin: 08/01/22 09:31 Dose: 500 mcg Dextrose (Dextrose 50% 50 Ml Syringe) 25 - 50 ml IV UD PRN; Protocol PRN Reason: Hypoglycemia Protocol Stop: 08/29/22 20:26 Enoxaparin Sodium (Enoxaparin Inj 40 Mg/0.4 Ml Syr) 40 mg SQ QAM [facility] Stop: 08/30/22 08:59 Last Admin: 08/01/22 09:26 Dose: 40 mg Formoterol Fumarate (Formoterol 20 Mcg/2 Ml Vial) 20 mcg INH BIDR [facility] Stop: 08/30/22 18:59 Last Admin: 08/01/22 05:21 Dose: 20 mcg Glucagon (Glucagon For Inj 1 Mg Vial) 1 mg SQ UD PRN; Protocol PRN Reason: Hypoglycemia Protocol Stop: 08/29/22 20:26 Glucose (Glucose 40% Gel 15 Gm Tube) 15 - 30 gm PO UD PRN; Protocol PRN Reason: Hypoglycemia Protocol Stop: 08/29/22 20:26 Glucose (Glucose 10 Tab/Tube) 4 - 8 tab PO UD PRN; Protocol PRN Reason: Hypoglycemia Treatment Stop: 08/29/22 20:26 Insulin Aspart (Insulin Aspart Per Unit) 0 units SC ACHS [facility] Stop: 08/29/22 20:59 Last Admin: 08/01/22 13:42 Dose: 7 units Insulin Glargine (Lantus Per Unit Charge) 0 units SQ BID [facility]; Protocol Stop: 08/30/22 20:59 Last Admin: 08/01/22 09:26 Dose: 8 units Levothyroxine Sodium (Levothyroxine Sodium 200 Mcg Tablet) 200 mcg PO DAILYBB [facility] Stop: 08/30/22 06:29 Last Admin: 08/01/22 04:59 Dose: 200 mcg Losartan Potassium (Losartan Potassium 50 Mg Tab) 100 mg PO QAM [facility] Stop: 08/30/22 08:59 Last Admin: 08/01/22 09:31 Dose: 100 mg Magnesium Hydroxide (Magnesium Hydroxide Susp 30 Ml Udc) 30 ml PO Q12H PRN PRN Reason: Constipation Stop: 08/29/22 18:22 Miscellaneous (Carbohydrates For Hypoglycemia ) 15 - 30 gm PO UD PRN PRN Reason: Hypoglycemia Protocol Stop: 08/29/22 20:26 Miscellaneous Information (Pharmacy Glycemic Mgmt Consult) 1 each N/A UD PRN PRN Reason: Consult Stop: 08/29/22 20:26 Ondansetron HCl (Ondansetron Inj 2 Mg/Ml 2 Ml Vial) 4 mg IV Q6H PRN PRN Reason: Nausea Stop: 08/29/22 18:22 Pantoprazole Sodium (Pantoprazole 40 Mg Tab) 40 mg PO QAM [facility] Stop: 08/30/22 08:59 Last Admin: 08/01/22 09:31 Dose: 40 mg Polyethylene Glycol (Polyethylene (Miralax) 17 Gm Pack) 17 gm PO DAILY PRN PRN Reason: Constipation Stop: 08/29/22 18:22 Prednisone (Prednisone 20 Mg Tab) 40 mg PO DAILY [facility] Stop: 08/31/22 08:59 Last Admin: 08/01/22 09:26 Dose: 40 mg Sodium Chloride (Sodium Chlor 7% 4 Ml Neb) 4 ml NEB BIDR [facility] Stop: 08/30/22 18:59 Last Admin: 08/01/22 05:21 Dose: 4 ml Triamcinolone Acetonide (Triamcinolone Acet 0.1% Cr 15 Gm Tube) 1 appln TOP BID [facility] Stop: 08/29/22 20:59 Last Admin: 08/01/22 09:31 Dose: 1 appln
[2022-08-01] MEDS: CARBOHYDRATES FOR HYPOGLYCEMIA PO PRN ×2 (17:05→17:23)
[2022-08-02] MEDS: LEVOTHYROXINE SODIUM 200 MCG TABLET PO SCH (05:36)
[2022-08-02 07:05] LABS: Hematocrit (blood only) 39.4 % (37.0-47.0); Hemoglobin 13.3 g/dl (12.0-16.0); Mean Corpuscular Hemoglobin 28.2 pg (25.0-34.0); Mean Corpuscular Hgb Conc 33.8 g/dL (32.0-36.0); Mean Corpuscular Volume 83.5 fL (80.0-100.0); Mean Platelet Volume 9.9 fL (9.4-12.4); Platelet Count 338 K/uL (130-400); RDW Coefficient of Variation 14.6 % (11.5-14.5); RDW Standard Deviation 44.3 fL (36.4-46.3); Red Blood Count 4.72 M/uL (4.20-5.40); White Blood Count 7.85 K/ul (4.8-10.8)
[2022-08-02] MEDS: BUDESONIDE 0.5 MG/2 ML VIAL (PULMICORT) NEB SCH ×2 (07:06→19:16)
[2022-08-02] MEDS: FORMOTEROL 20 MCG/2 ML VIAL INH SCH ×2 (07:06→19:16)
[2022-08-02] MEDS: SODIUM CHLOR 7% 4 ML NEB NEB SCH ×2 (07:06→19:16)
[2022-08-02 07:14] LABS: INR 1.1 (0.9-1.1); Prothrombin Time 11.7 Seconds (9.0-12.0)
[2022-08-02 07:27] LABS: Albumin Level 3.5 gm/dl (3.4-5.0); Bilirubin,Total 0.3 mg/dl (0.2-1.0); Calcium 8.1 mg/dl (8.5-10.1); Potassium 3.7 mmol/L (3.5-5.1)
[2022-08-02] MEDS: carvediloL 25 MG TAB PO SCH ×2 (07:40→21:38)
[2022-08-02] MEDS: CYANOCOBALAMIN (B-12) 500 MCG TABLET PO SCH ×2 (07:41→21:39)
[2022-08-02] MEDS: TRIAMCINOLONE ACET 0.1% CR 15 GM TUBE TOP SCH ×2 (07:41→21:39)
[2022-08-02] MEDS: LOSARTAN POTASSIUM 50 MG TAB PO SCH (07:41)
[2022-08-02] MEDS: amLODIPine BESYLATE 5 MG TAB PO SCH (07:41)
[2022-08-02] MEDS: AZITHROMYCIN 250 MG TAB PO SCH (07:41)
[2022-08-02] MEDS: ENOXAPARIN INJ 40 MG/0.4 ML SYR SQ SCH (07:41)
[2022-08-02] MEDS: predniSONE 20 MG TAB PO SCH (07:41)
[2022-08-02] MEDS: PANTOprazole 40 MG TAB PO SCH (07:41)
[2022-08-02 07:42] LABS: Albumin Globulin Ratio 1.3 (0.9-2); BUN Creatinine Ratio 30.8 (10-20); Creatinine Clr Calc Pharmacy 76.6 ml/min; Est GFR (African American) 92.5 ml/min; Est GFR (Non-African American) 79.8 ml/min; Globulin 2.7 gm/dl (2.5-4.0); Total Protein 6.2 gm/dl (6.0-8.3)
[2022-08-02 08:14] LABS: Appearance Urine Clear (Clear); Bacteria Urine Automated Negative (Negative); Bilirubin Urine Negative (Negative); Blood Urine Negative (Negative); Color Urine Yellow; Glucose Urine UA Negative (Negative); Ketones Urine Negative (Negative); Leukocyte Esterase Urine Negative (Negative); Nitrite Urine Negative (Negative); Protein Urine 3+ (Negative); RBC Urine Automated 0-4 /hpf (0-4); Specific Gravity Urine 1.018 (1.000-1.030); Urobilinogen Urine Negative (Negative)
[2022-08-02] MEDS: INSULIN ASPART PER UNIT SC SCH ×4 (08:43→20:17)
--- NOTE | 2022-08-02 11:29 | Pharmacy Report ---
Pharmacy Glycemic Short Note 2 - Date of Service August 02, 2022 - Glycemic Short BSG Results (Last 24 hours): 08/01/22 08/01/22 08/01/22 11:49 16:52 16:54 Glucose POC Glucose 132 H 60 L* 62 L* 08/01/22 08/01/22 08/02/22 17:10 20:23 06:44 Glucose 88 POC Glucose 67 L* 202 H 08/02/22 07:50 Glucose POC Glucose 79 OUTPATIENT ANTIDIABETIC REGIMEN: * A1c = 7.6% * Repaglinide + metformin ASSESSMENT: 08/02/22 * BSGs yesterday were 119-132-60/67-202 mg/dL * Patient received 16 units of basal and 9 units of bolus (total of 25 units). * Patient transitioned to prednisone 40 mg daily yesterday. * Fasting today is 79 mg/dL. * Since fasting decreasing quickly (162 --> 119 --> 79) will decrease Lantus by half to 8 units. * Loosen Novolog due to hypoglycemia at lunch. BACKGROUND * Mallory is a 66 yo T2DM admitted with SOB/wheezing, COPD exacerbation. * Patient started on high dose IV steroids (solu medrol 40 mg IV q8h). * She received Lantus 8 units SQ last evening. Fasting BSG of 162 mg/dL. Anticipate fasting will trend up with repeated doses of IV steroids. Will give a one time dose of 15 units this morning and then dose per BSG scale BID. * Novolog based on weight + stress 3 PLAN FOR INPATIENT GLYCEMIC CONTROL: * Hold outpatient oral diabetes medications * Basal insulin * Lantus 8 units HS * Bolus insulin * NovoLog per scale ACHS or Q6hrs while NPO * Goal Range: Low 120 mg/dL - High 150 mg/dL * Correction Factor: 25 mg/dL/unit * Nutritional / Prandial insulin per carb ratio of 1 unit per 8 grams CHO consumed
[2022-08-02] MEDS ORDERED: hydrALAZINE HCL 25 MG TAB PO STA (12:47)
[2022-08-02] MEDS ORDERED: hydrALAZINE HCL 20 MG/ML VIAL IV STA (17:09)
[2022-08-02] MEDS ORDERED: LABETALOL HCL IV 5 MG/ML 20ML IV STA (18:27)
--- NOTE | 2022-08-02 18:32 | Hospitalist Progress Note ---
Date of Service August 02, 2022 Assessment & Plan (1) Acute exacerbation of chronic obstructive pulmonary disease (COPD): Plan: improved but has some occlusion issues with her tracheostomy stoma which needs revision. cont nebs, prednisone, bronchodilator therapy while she is admitted for additional BP management. Short course abx/pred given for home upon discharge. (2) Acute kidney injury: Plan: resolved, likely contrast induced. (3) Coagulopathy: Plan: INR 1.7 on arrival without use of anticoagulant. Resolved to 1.1 today. No bleeding or evidence of DIC. (4) Hypoxia: Plan: support as needed, recorded as 90% on room air this morning. (5) Tracheostomy in place: Plan: continue to use prosthetic per pulm, also outpatient ENT follow-up is recommended. Pt would like a suction canister for home-script supplied to CM. Also could benefit from a humidification system, however, it is not clear if she has that at home. CM to contact her supplier on Wednesday so we can send script for DME that is needed and not at home. (6) Hypertension: Plan: chronic, elevated despite home therapy. Possibly related to ongoing steroid use. Additional agents as above. Added hydralazine 25mg TID. Sees Dr. Gordon in outpatient clinic for hypertensive management. Close PCP [place] recommended after discharge. (7) Diabetes: Plan: chronic, at goal. Cont insulin while hospitalized. (8) History of Whipple procedure: Plan: h/o pancreatic cancer in the past, h/o FAP. Noted pneumobilia on CT scan likely related to h/o whipple procedure and other GI interventions. (9) History of throat cancer: (10) History of pancreatic cancer: (11) H/O deep venous thrombosis: Plan: H/O DVT: -years ago; was on anticoagulation but discontinued more than a year ago (12) Psoriasis: Plan: She has scaly active plaques on extensor surfaces of elbows, cont steroid cream. Follows with dermDejon Lovenox Full Code Dispo-to home when BP is improved. Mariah Oh DO [facility] Hospitalist Plan Admission and Anticipated Discharge Date Admission Date: July 30, 2022 Subjective 66-year-old female with asthma and tracheostomy in place presents with shortness of breath and cough for 3 days. She feels better since receiving Solu-Medrol nebulized bronchodilators and antibiotics. She remains afebrile. She was going to be discharged today however, BP was too high She was given hydralazine PO with no improvement, then hydralazine 10mg IV followed by labetalol 10mg IV Hydralazine 25mg PO TID was added Review of Systems Review of Systems: All systems were otherwise reviewed and negative except as indicated above. Physical Exam Physical Exam: CONSTITUTIONAL: WNWD, vitals as above, generally well- appearing, NAD EYES: normal conjunctivae, no scleral icterus ENT: external ear and nose normal, MMM NECK: trachea midline, tracheostomy stoma present RESPIRATORY: CTAB, normal respiratory effort. CARDIOVASCULAR: regular rate and rhythm, S1 and 2 heard without murmurs, gallops or rubs, no JVD, no peripheral edema CHEST: inspection of chest was normal GASTROINTESTINAL: soft, nontender, ND, no guarding MUSCULOSKELETAL: strength 5/5 throughout, head is normocephalic and atraumatic, neck supple, normal palpation of chest wall without tenderness SKIN: warm and dry, psoriatic plaques on extensor surfaces around elbows bilaterally NEUROLOGIC: CN 2-12 grossly intact, no sensory deficit, normal cognition, uses device to help her speak, no tremor PSYCHIATRIC: alert cooperative and oriented to person, place and time. Euthymic mood, makes good eye contact, language grossly intact, recent and remote memory grossly intact. Results & Data Results & Data ([facility]) Vital Signs (Past 12 Hours) Vital Signs Temp Pulse Pulse Resp BP BP Pulse Ox 08/02/22 18:06 90 169/89 H 181/90 H 08/02/22 17:04 184/97 H 08/02/22 16:30 37.0 C 67 22 164/103 H 93 08/02/22 15:07 66 169/90 H 08/02/22 12:29 36.8 C 61 24 168/91 H 90 08/02/22 07:56 08/02/22 07:46 76 175/89 H 08/02/22 07:38 36.7 C 58 L 26 H 194/78 H 96 08/02/22 07:08 62 18 92 O2 Del Method O2 Flow Rate FiO2 08/02/22 18:06 08/02/22 17:04 08/02/22 16:30 Trach Collar 5.0 08/02/22 15:07 08/02/22 12:29 Room Air 08/02/22 07:56 Trach Collar 6 28 08/02/22 07:46 08/02/22 07:38 Trach Collar 5.0 08/02/22 07:08 Room Air Laboratory Results Short CBC 08/02/22 Range/Units 06:44 WBC 7.85 (4.8-10.8) K/ul Hgb 13.3 (12.0-16.0) g/dl Hct 39.4 (37.0-47.0) % Plt Count 338 (130-400) K/uL BMP 08/02/22 06:44 Sodium 143 Potassium 3.7 Chloride 112 H Carbon Dioxide 24 BUN 24 H Creatinine 0.78 D Glucose 88 Calcium 8.1 L Liver Function 08/02/22 Range/Units 06:44 Total Bilirubin 0.3 (0.2-1.0) mg/dl AST 52 H (13-39) U/L ALT 31 (7-52) U/L Alkaline Phosphatase 88 (34-104) U/L Albumin 3.5 (3.4-5.0) gm/dl Urine 08/02/22 Range/Units 07:48 Urine Color Yellow Urine Appearance Clear (Clear) Urine pH 6.0 (4.5-7.5) Ur Specific [place] 1.018 (1.000-1.030) Urine Protein 3+ H (Negative) Urine Glucose (UA) Negative (Negative) Medications Administered Current Inpatient Medications Acetaminophen (Acetaminophen 325 Mg Tab) 650 mg PO Q4H PRN PRN Reason: Pain or Fever Stop: 08/29/22 18:22 Last Admin: 07/31/22 22:16 Dose: 650 mg Al Hydrox/Mg Hydrox/Simethicone (Aluminum/Magnesium Susp 30 Ml Udc) 15 ml PO Q4H PRN PRN Reason: Dyspepsia Stop: 08/29/22 18:22 Albuterol (Albut/Ipratrop 3mg/0.5mg Neb 3 Ml Vial) 3 ml NEB Q4R PRN; Protocol PRN Reason: Shortness Of Breath Or Wheezing Stop: 08/29/22 22:59 Last Admin: 08/01/22 11:39 Dose: 3 ml Amlodipine Besylate (Amlodipine Besylate 5 Mg Tab) 10 mg PO DAILY [facility] Stop: 08/30/22 08:59 Last Admin: 08/02/22 07:41 Dose: 10 mg Azithromycin (Azithromycin 250 Mg Tab) 500 mg PO QAM [facility] Stop: 08/08/22 08:59 Last Admin: 08/02/22 07:41 Dose: 500 mg Budesonide (Budesonide 0.5 Mg/2 Ml Vial (Pulmicort)) 0.5 mg NEB BIDR [facility] Stop: 08/30/22 18:59 Last Admin: 08/02/22 07:06 Dose: 0.5 mg Carvedilol (Carvedilol 25 Mg Tab) 25 mg PO BID [facility] Stop: 08/29/22 20:59 Last Admin: 08/02/22 07:40 Dose: 25 mg Clobetasol Propionate (Clobetasol Propionate 0.05% Oint 15 Gm Tube) 1 appln EXT BID PRN PRN Reason: flare ups Stop: 08/29/22 21:01 Cyanocobalamin (Cyanocobalamin (B-12) 500 Mcg Tablet) 500 mcg PO BID [facility] Stop: 08/29/22 20:59 Last Admin: 08/02/22 07:41 Dose: 500 mcg Dextrose (Dextrose 50% 50 Ml Syringe) 25 - 50 ml IV UD PRN; Protocol PRN Reason: Hypoglycemia Protocol Stop: 08/29/22 20:26 Enoxaparin Sodium (Enoxaparin Inj 40 Mg/0.4 Ml Syr) 40 mg SQ QAM [facility] Stop: 08/30/22 08:59 Last Admin: 08/02/22 07:41 Dose: 40 mg Formoterol Fumarate (Formoterol 20 Mcg/2 Ml Vial) 20 mcg INH BIDR [facility] Stop: 08/30/22 18:59 Last Admin: 08/02/22 07:06 Dose: 20 mcg Glucagon (Glucagon For Inj 1 Mg Vial) 1 mg SQ UD PRN; Protocol PRN Reason: Hypoglycemia Protocol Stop: 08/29/22 20:26 Glucose (Glucose 40% Gel 15 Gm Tube) 15 - 30 gm PO UD PRN; Protocol PRN Reason: Hypoglycemia Protocol Stop: 08/29/22 20:26 Glucose (Glucose 10 Tab/Tube) 4 - 8 tab PO UD PRN; Protocol PRN Reason: Hypoglycemia Treatment Stop: 08/29/22 20:26 Hydralazine HCl (Hydralazine Hcl 25 Mg Tab) 25 mg PO TID [facility] Stop: 09/01/22 20:59 Insulin Aspart (Insulin Aspart Per Unit) 0 units SC ACHS [facility] Stop: 08/29/22 20:59 Last Admin: 08/02/22 17:49 Dose: 5 units Insulin Glargine (Lantus Per Unit Charge) 8 units SQ HS [facility] Stop: 09/01/22 20:59 Labetalol HCl (Labetalol Hcl Iv 5 Mg/Ml 20ml) 10 mg IV NOW STA Stop: 08/02/22 18:28 Levothyroxine Sodium (Levothyroxine Sodium 200 Mcg Tablet) 200 mcg PO DAILYBB [facility] Stop: 08/30/22 06:29 Last Admin: 08/02/22 05:36 Dose: 200 mcg Losartan Potassium (Losartan Potassium 50 Mg Tab) 100 mg PO QAM [facility] Stop: 08/30/22 08:59 Last Admin: 08/02/22 07:41 Dose: 100 mg Magnesium Hydroxide (Magnesium Hydroxide Susp 30 Ml Udc) 30 ml PO Q12H PRN PRN Reason: Constipation Stop: 08/29/22 18:22 Miscellaneous (Carbohydrates For Hypoglycemia ) 15 - 30 gm PO UD PRN PRN Reason: Hypoglycemia Protocol Stop: 08/29/22 20:26 Last Admin: 08/01/22 17:23 Dose: 15 gm Miscellaneous Information (Pharmacy Glycemic Mgmt Consult) 1 each N/A UD PRN PRN Reason: Consult Stop: 08/29/22 20:26 Ondansetron HCl (Ondansetron Inj 2 Mg/Ml 2 Ml Vial) 4 mg IV Q6H PRN PRN Reason: Nausea Stop: 08/29/22 18:22 Pantoprazole Sodium (Pantoprazole 40 Mg Tab) 40 mg PO QAM [facility] Stop: 08/30/22 08:59 Last Admin: 08/02/22 07:41 Dose: 40 mg Polyethylene Glycol (Polyethylene (Miralax) 17 Gm Pack) 17 gm PO DAILY PRN PRN Reason: Constipation Stop: 08/29/22 18:22 Prednisone (Prednisone 20 Mg Tab) 40 mg PO DAILY [facility] Stop: 08/31/22 08:59 Last Admin: 08/02/22 07:41 Dose: 40 mg Sodium Chloride (Sodium Chlor 7% 4 Ml Neb) 4 ml NEB BIDR [facility] Stop: 08/30/22 18:59 Last Admin: 08/02/22 07:06 Dose: 4 ml Triamcinolone Acetonide (Triamcinolone Acet 0.1% Cr 15 Gm Tube) 1 appln TOP BID [facility] Stop: 08/29/22 20:59 Last Admin: 08/02/22 07:41 Dose: 1 appln
[2022-08-02] MEDS ORDERED: LANTUS PER UNIT CHARGE SQ SCH (21:00)
[2022-08-02] MEDS: hydrALAZINE HCL 25 MG TAB PO SCH (21:38)
[2022-08-03] MEDS: LEVOTHYROXINE SODIUM 200 MCG TABLET PO SCH (06:36)
[2022-08-03] MEDS: SODIUM CHLOR 7% 4 ML NEB NEB SCH (07:47)
[2022-08-03] MEDS: BUDESONIDE 0.5 MG/2 ML VIAL (PULMICORT) NEB SCH (07:56)
[2022-08-03] MEDS: FORMOTEROL 20 MCG/2 ML VIAL INH SCH (07:56)
[2022-08-03] MEDS: INSULIN ASPART PER UNIT SC SCH (08:05)
[2022-08-03] MEDS: carvediloL 25 MG TAB PO SCH (08:22)
[2022-08-03] MEDS: hydrALAZINE HCL 25 MG TAB PO SCH (08:22)
[2022-08-03] MEDS: predniSONE 20 MG TAB PO SCH (08:22)
[2022-08-03] MEDS: amLODIPine BESYLATE 5 MG TAB PO SCH (08:22)
[2022-08-03] MEDS: AZITHROMYCIN 250 MG TAB PO SCH (08:22)
[2022-08-03] MEDS: PANTOprazole 40 MG TAB PO SCH (08:22)
[2022-08-03] MEDS: LOSARTAN POTASSIUM 50 MG TAB PO SCH (08:22)
[2022-08-03] MEDS: CYANOCOBALAMIN (B-12) 500 MCG TABLET PO SCH (08:23)
[2022-08-03] MEDS: ENOXAPARIN INJ 40 MG/0.4 ML SYR SQ SCH (08:23)
[2022-08-03] MEDS: TRIAMCINOLONE ACET 0.1% CR 15 GM TUBE TOP SCH (09:27)
--- NOTE | 2022-08-03 15:34 | Discharge Summary ---
Date of Service August 03, 2022 Admission HPI Per Admitting Provider Ms. Soto is a 66-year-old female that presented to the ED today with SOB that has been occurring x3 days without relief from home nebulizer treatments and O2. 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 Further PMH includes: Non-insulin dependent DM2, HTN, Psoriasis, CKD stage III, H/O DVT s/p a surgical procedure in 2004 (Not on any anticoagulation). Pt states that she has had a thick brown sputum cough that is blood-tinged through her trach stoma. At baseline, she is ambulatory and not requiring O2. Pt otherwise denies LOPEZ, dizziness, chest pain, palpitations, fever, chills, visual changes, auditory changes, N/V, known sick contacts, falls, or trauma. Home COVID-19 test negative; also negative in ED. Vaccinated against COVID and Influenza. CXR negative for acute pulmonary disease. Slight leukocytosis WBC 11.62. In ED, Methylprednisone 125 mg IV x1, nebulizer tx x2, and placed on 6L trach collar. On exam, Pt AAOx4 and able to answer questions with an electro-larynx. Numerous coughing flares with no sputum production during my exam. Her trach stoma interior appeared erythematous. Pt wheezes improving with nebs, still tight overall. Euvolemic. Noted flare of psoriasis on elbows, ankles and knees. Pt BP elevated when I was in the room. Reports her baseline is 170's systolic. Some slight leukocytosis WBC 11.62, Slight troponin elevation 19.1; will trend x1 but do not suspect ACS with this individual; rather ischemic demand. VBG relatively normal. Will empirically tx with Zosyn + Doxy and consult pulmonology for evaluation in the AM. Obtain Blood cultures, lactate negative 0.8. Need to be cognizant of the possibility of a recurrent DVT as she has a H/O DVT and not anticoagulated currently, D-Dimer pending. Nebs QID and Q2 PRN with CXR in AM. Suspect acute on chronic exacerbation of COPD with an underlying bronchitis. Pt. will be admitted for further evaluation and management. Please see A/P for further details. Admission Exam Per Admitting Provider Neuro: AAOx4, PERRLA, no aphagia, memory changes, CNII-XII grossly intact HEENT: head normocephalic, moist mucus membranes. Trach stoma erythematous, no purulent drainage CV: S1/S2, (-) M/G/R, (-) edema, cap refill < 3 seconds Resp: Lungs inspiratory and expiratory wheezing. 8L trach collar. SpO2 96% GI: Abdomen S/NT/ND, Ax4 bowel sounds, (-) CVA tenderness Musculoskeletal: 5/5 B/L UE strength, 5/5 B/L LE strength. No gait disturbance Skin: (+) rashes , (-) erythema. (+) psoriatic patches b/l elbows, knees and ankles. Psych: euthymic mood Principal Diagnosis Acute exacerbation of chronic obstructive pulmonary disease (COPD) Acute kidney injury Discharge Exam CONSTITUTIONAL: WNWD, vitals as above, generally well-appearing, NAD EYES: normal conjunctivae, no scleral icterus ENT: external ear and nose normal, MMM NECK: trachea midline, tracheostomy stoma present RESPIRATORY: faint rales throughout, normal respiratory effort. CARDIOVASCULAR: regular rate and rhythm, S1 and 2 heard without murmurs, gallops or rubs, no JVD, no peripheral edema CHEST: inspection of chest was normal GASTROINTESTINAL: soft, nontender, ND, no guarding MUSCULOSKELETAL: strength 5/5 throughout, head is normocephalic and atraumatic, neck supple, normal palpation of chest wall without tenderness SKIN: warm and dry, psoriatic plaques on extensor surfaces around elbows bilaterally NEUROLOGIC: CN 2-12 grossly intact, no sensory deficit, normal cognition, uses device to help her speak, no tremor PSYCHIATRIC: alert cooperative and oriented to person, place and time. Euthymic mood, makes good eye contact, language grossly intact, recent and remote memory grossly intact. Discharge Data Allergies Allergy/AdvReac Type Severity Reaction Status Date / Time NSAIDS (Non-Steroidal Allergy Unknown Ulcer & Verified 07/30/22 19:02 Anti-Inflamma anemia zolpidem [From Ambien] Allergy Unknown pysch Verified 07/30/22 19:02 complications, dizzy hydrochlorothiazide AdvReac Acute Verified 07/30/22 19:02 kidney injury rosuvastatin [From Crestor] AdvReac Elavated Verified 07/30/22 19:02 liver function test Consultations 07/30/22 18:21 ED Decision to Admit Stat 07/31/22 08:00 Consult Pulmonology Routine Ordered Studies 07/30/22 22:04 CT angio chest PE protocol Urgent US venous doppler LE Urgent Hospital Course (1) Acute exacerbation of chronic obstructive pulmonary disease (COPD): (2) Acute kidney injury: (3) Coagulopathy: (4) Hypoxia: (5) Tracheostomy in place: (6) Hypertension: (7) Diabetes: (8) History of Whipple procedure: (9) History of throat cancer: (10) History of pancreatic cancer: (11) H/O deep venous thrombosis: (12) Psoriasis: Plan Patient is a 66-year-old female with past medical history of head and neck cancer status post total laryngectomy and tracheostomy placement in 2006, type 2 diabetes mellitus, hypertension presented to the ED with shortness of breath and brownish secretions from the tracheal stoma. CTA chest was done which showed subtle patchy ill-defined bilateral groundglass densities suggestive of nonspecific pneumonitis. Patient was admitted to telemetry floor. Pulmonology was consulted. Patient was started on airway clearance therapy. She was also started on azithromycin. Patient was given IV steroid initially which were transitioned to oral steroids. Hydralazine 12.5 twice daily was added to her antihypertensive regimen after discussion with cardiology. Patient was discharged home with instruction to follow-up with her primary care doctor. She will need outpatient referral to pulmonology and needs follow-up with her ENT doctor Total Time Total Time Spent Total Time Spent (In Minutes): 40 Total Time Includes: Examination of the Patient, Discharge Planning, Medication Reconciliation, Communication With Other Providers and Other Discharge Plan Discharge Items Patient Disposition: Home - Self-Care Reason For Visit: SOB Discharge Diagnosis: COPD exacerbation tracheostomy stoma with some chronic changes Condition on Discharge: Good Activity: Resume your previous activity Non-emergency contact: Primary Care Provider Call non-emergency contact if: you have any medication questions, your symptoms worsen and your pain is not controlled Follow-up/Referrals: Orlin Castro MD [Primary Care Provider] - (Date & Time 08/07/2022 11:00 AM Provider Jessica Mainali, MD Department General Internal Medicine [facility] ) Diet: Carb Consistent or DM2 Addtl Attending Provider Instructions: Please take all medications as instructed on discharge list below. You are being given a short course of steroids (prednisone) for days. You completed course of Azithromycin during the hospitalization. You were also ordered supplies to assist with suctioning your tracheal stoma as needed. Please continue to use you prosthetic device as tolerated and follow-up with ENT regarding the need for stomal revision. Your blood pressure was elevated this admission above the goal 140/90. Therefore, one additional blood pressure medication has been added called hydralazine, which should be taken twice daily. Please measure your blood pressure daily and record it. Please take the blood pressure readings to your PCP> Please follow-up with your primary care physician within one week for a repeat blood pressure check and to adjust this medication as needed. As discussed, the prednisone and your upcoming orthopedic shots may cause your blood sugar to rise too high. Please keep an eye on this at home and touch base with your glycemic pharmacist ([facility]) as needed for higher than normal levels. It was a pleasure taking care of you! Please call if you have any questions or problems. You can reach a [facility] hospitalist on duty at [facility] 24 hours a day by calling [phone]. Pending Studies at Discharge: No Stand-Alone Forms: [facility] Medications and DC Order Prescriptions: New prednisone 20 mg Tablet 40 mg PO DAILY Qty: 10 0RF hydralazine 25 mg tablet 12.5 mg PO BID Qty: 30 0RF Rx Instructions: Take 1/2 tab twice daily Continued triamcinolone acetonide 0.1 % cream 1 appln TOP BID pantoprazole [Protonix] 40 mg tablet,delayed release (DR/EC) 40 mg PO QAM losartan [Cozaar] 100 mg tablet 100 mg PO QAM cyanocobalamin (vitamin B-12) 500 mcg tablet,disintegrating 500 mcg SL BID repaglinide 1 mg Tablet 1 mg PO BID Rx Instructions: Take 1 tab before breakfast & supper carvedilol 25 mg tablet 25 mg PO BID ipratropium-albuterol 0.5 mg-3 mg(2.5 mg base)/3 mL Solution For Nebulization 3 ml INHALATION Q6H PRN (Reason: Shortness Of Breath Or Wheezing) levothyroxine 200 mcg tablet 200 mcg PO DAILY clobetasol [Temovate] 0.05 % Ointment 1 applic TOPICAL BID PRN (Reason: flare ups) Rx Instructions: apply to affected areas on arms & feet. Start 07/21/2022. repaglinide 1 mg tablet 0.5 mg PO DIRECTED Rx Instructions: Take with night time snack albuterol sulfate 2.5 mg /3 mL (0.083 %) Solution For Nebulization 2.5 mg INHALATION DIRECTED (DME) [employer] G6 Sensor Device MISCELLANEOUS amlodipine 10 mg tablet 10 mg PO DAILY metformin 1,000 mg tablet 1,000 mg PO BID Discontinued doxycycline hyclate 100 mg capsule 100 mg PO DIRECTED Rx Instructions: take for 7 days, end 08/05/1922 Discharge Orders: Discharge Order (Routine); Ordered 08/03/22 Ordered By: Raf Mckeon/Other Patient Handouts: Asthma and COPD, Controlling High Blood Pressure, Managing Type 2 Diabetes, Shortness of Breath Coping, Your Heart Is at Risk Admission Data Admit Date/Time: 07/30/22 18:23 Attending Provider: Raf Galicia Admit Provider: Joseph Courtney Primary Care Provider: Orlin Castro Other Providers: Joseph Courtney ; Brian Jacome Other Interventions: Discharge Summary Assessment (RN) Last Done: 08/03/22 12:59
--- NOTE | 2022-08-19 08:56 | Coding Query ---
A supporting diagnosis is required for the test/procedure performed on this patient in order for us to be reimbursed by the patient's insurance. Please provide a supporting diagnosis for the following test/procedure listed below next to the test name along with your signature. *If there is no additional diagnosis for this patient that would support the following test/procedure please document that below next to the test/procedure. Test(s)/Procedure(s) that require a supporting diagnosis: VENOUS DOPPLER LOWER EXT BILAT DIAGNOSIS: abn ddimer Provider Signature: JNO Date: 08/19/22_ Thank you Kyleigh Booth Health Information Management Once completed, please kindly fax back to [phone] For questions please call [phone] DEMI
== END 2022-08-03 13:29 | disposition home or self-care (01) ==
LOC: ED 12:19 → 4W 18:23 → INTOOBSV 18:23 → SUATTDRO 18:23 → 4W 20:07

== ENCOUNTER 2022-10-15 08:47 | Inpatient (IN) ==
[2022-10-15] MEDS ORDERED: CEFEPIME 2,000 MG/20 ML VIAL IV STA (09:16)
[2022-10-15] MEDS ORDERED: ALBUT/IPRATROP 3MG/0.5MG NEB 3 ML VIAL NEB STA ×2 (09:16→14:48)
[2022-10-15] MEDS ORDERED: SODIUM CHLORIDE 0.9% 1000ML 1,000 ML IV SCH (09:30)
[2022-10-15 09:39] LABS: Basophils # (auto) 0.08 K/uL (0-0.2); Eosinophils # (auto) 0.32 K/uL (0-0.50); Hematocrit (blood only) 45.1 % (37.0-47.0); Hemoglobin 15.5 g/dl (12.0-16.0); Immature Granulocytes # (auto) 0.03 K/uL (0.01-0.20); Immature Granulocytes % (auto) 0.4 %; Lymphocytes # (auto) 1.29 K/uL (1.2-3.4); Mean Corpuscular Hemoglobin 28.3 pg (25.0-34.0); Mean Corpuscular Hgb Conc 34.4 g/dL (32.0-36.0); Mean Corpuscular Volume 82.3 fL (80.0-100.0); Mean Platelet Volume 10.6 fL (9.4-12.4); Monocytes % (auto) 8.7 %; Neutrophils # (auto) 5.63 K/uL (1.40-6.50); Neutrophils % (auto) 69.9 %; Platelet Count 310 K/uL (130-400); RDW Coefficient of Variation 13.6 % (11.5-14.5); RDW Standard Deviation 40.6 fL (36.4-46.3); Red Blood Count 5.48 M/uL (4.20-5.40); White Blood Count 8.05 K/ul (4.8-10.8)
--- NOTE | 2022-10-15 09:39 | Emergency Department Note ---
Impression & Plan Hypoxia, Asthma exacerbation ED Provider Note INFORMANT: Patient ED PROVIDER(S): Matt Otero DO CHIEF COMPLAINT: Shortness of breath PLAN: Disposition: Admission Outpatient prescription management: Albuterol inhaler Discussion with: I spoke with the hospitalist, who will see the patient for ad mission/observation and further evaluation and consultation. MEDICAL DECISION MAKING: This is a 66-year-old female who presents to the ED with a chief complaint of shortness of breath. The patient has history of tracheostomy for the past 20 years. She reports that her symptoms started late last night where she became more short of breath. The patient had oxygen saturations of 87% on room air for EMS. She does not use home oxygen. She denies any new cough. She does have a chronic cough related to her tracheostomy and mucus that develops from that, however nothing new. No fevers. No chest pains. The patient was transported here by EMS. They did suction the tracheostomy in route. The patient's vital signs reveal tachypnea with respiratory rate of 30. Tachycardia with a heart rate of 107. Hypertension with a blood pressure 186/108. She was saturating 98% on 5 L. The patient has wheezing on my lung exam. She does cough on occasion which she states is normal for her. She does not appear to be in any distress at this time. Currently afebrile. The viral swab shows parainfluenza 3. CBC did not show leukocytosis or anemia. Glucose is 183. Procalcitonin is negative. Troponin was negative for myocarditis or myocardial infarction. Chest x-ray did not show pneumonia. The patient was treated with a DuoNeb treatment. On reassessment, her lungs are clear. She states that she is feeling better. She was given IV cefepime empirically. She was also given a liter of normal saline. When the patient was off of the oxygen, she desaturates down into the high 50s and low 60s. A CT scan of the chest was performed. There is no pneumonia or PE. There is some debris in the trachea, however. The patient will require admission due to hypoxia and oxygen requirement as she does not use oxygen at home. She will be seen by the hospitalist for further evaluation and care Triage Nursing notes reviewed. Vital Signs: reviewed Prior /Outside records reviewed: none Differential diagnosis: The differential was considered includes acute myocardial infarction, acute coronary syndrome, myocarditis, esophageal perforation, pulmonary embolism, pneumonia, pneumothorax, cardiomyopathy, congestive heart, anemia , COPD/asthma exacerbation. Diagnostics, as interpreted by me: 12 lead ECG: Sinus tach at a rate of 108. No ST elevation. No PVCs. Normal QTc. Cardiac Monitoring ordered: Sinus rhythm in the low 100s. Medical decision rules: none Imaging studies: Chest x-ray: No acute disease. No pneumonia. CT scan of the chest did not show pneumonia or PE. There is debris in the trachea. Procedures: none. Critical care: none. HPI: See MDM above. PAST MEDICAL HISTORY: See Below PAST SURGICAL HISTORY: See Below SOCIAL HISTORY: See Below HOME MEDICATIONS: See Below ALLERGIES: See Below VITALS: See Below PHYSICAL EXAMINATION: See MDM for positive findings otherwise unremarkable. CONSTITUTIONAL/VITAL SIGNS: Reviewed GENERAL:done as appropriate INTEGUMENTARY: done as appropriate HEAD: done as appropriate EYES: done as appropriate RESPIRATORY: done as appropriate CARDIOVASCULAR:done as appropriate GI/ABDOMEN:done as appropriate EXTREMITIES: done as appropriate NEUROLOGICAL: done as appropriate PSYCHIATRIC:done as appropriate MUSCULOSKELETAL:done as appropriate TRIAGE NURSING DOCUMENTATION REVIEWED. Past Med/Surg History Medical History Acute exacerbation of chronic obstructive pulmonary disease (COPD) Adrenal adenoma Has upcoming appt with endo PCP did work up prior (cortisol normal, DHEA hormone normal, 24 hour catecholamines WNL, plasma renin low (could be due to BP meds per PCP)) Asthma Asthma exacerbation Chronic obstructive pulmonary disease CKD (chronic kidney disease), stage III Coagulopathy Diabetes DVT (deep venous thrombosis) WITH SURGERY TRACH 2004-WAS ON BLOOD THINNER FOR A PERIOD OF TIME-THEN OFF-NO ISSUES SINCE History of colon cancer Dx'ed in 2002 (has familial adenomatous polyposis) S/p ileostomy and then J pouch procedure No chemo or XRT History of pancreatic cancer 2016 S/p Whipple procedure No chemo or XRT History of throat cancer Dxed 2006- s/p laryngectomy with trach placement No chemo or XRT History of thyroid cancer Papillary thyroid carcinoma (with throat cancer per patient) 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 S/p stomaplasty (11/2020) and tracheostoma revision (05/2021) S/p thyroidectomy No chemo or XRT Hyperlipidemia Hypertension Hypertensive urgency Hypothyroidism associated with surgical procedure Hypoxia Murmur, cardiac F/U DR DEE ACEVEDO No murmur per routine 06/2021 cardio visit SOB (shortness of breath) on exertion 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 No current issues Surgical History History of bowel resection WITH J POUCH History of colonoscopy History of esophagogastroduodenoscopy (EGD) History of radical neck dissection WITH TRACHEOSTOMY-2004 History of thyroidectomy History of Whipple procedure X 2-LAST 2012 Family History Family/Other Heart disease Lung disease Cancer Father Family hx of colon cancer Sister Family hx of colon cancer Social History Smoking Status: Former smoker Tobacco Type: Cigarettes Second Hand Exposure: Yes; Hx Alcohol Use: No Hx Substance Use: No Preferred Language: Khmer Communication Ability: Effective Warp Yarn Sorter Required: No Beliefs That Will Affect Care: None marital status: Current Living Situation: Alone current occupational status: disabled Feels Safe at Home: Yes Assistive Devices: None Allergies Allergies Allergy/AdvReac Type Severity Reaction Status Date / Time NSAIDS (Non-Steroidal Allergy Unknown Ulcer & Verified 07/30/22 19:02 Anti-Inflamma anemia zolpidem [From Ambien] Allergy Unknown pysch Verified 07/30/22 19:02 complications, dizzy hydrochlorothiazide AdvReac Acute Verified 07/30/22 19:02 kidney injury rosuvastatin [From Crestor] AdvReac Elavated Verified 07/30/22 19:02 liver function test Home Meds Home Medications Medication Instructions Recorded Confirmed cyanocobalamin (vitamin B-12) 500 500 mcg sublingual BID 08/09/19 07/30/22 mcg disintegrating tablet,sublingual losartan 100 mg tablet (Cozaar) 100 mg PO QAM 08/09/19 07/30/22 pantoprazole 40 mg tablet,delayed 40 mg PO QAM 08/09/19 07/30/22 release (Protonix) triamcinolone acetonide 0.1 % 1 appln topical BID 08/09/19 07/30/22 topical cream repaglinide 1 mg tablet 1 mg PO BID 11/27/21 07/30/22 albuterol sulfate 2.5 mg/3 mL 2.5 mg inhalation DIRECTED 07/30/22 07/30/22 (0.083 %) solution for nebulization amlodipine 10 mg tablet 10 mg PO DAILY 07/30/22 07/30/22 blood-glucose sensor (Dexcom G6 07/30/22 07/30/22 Sensor device) carvedilol 25 mg tablet 25 mg PO BID 07/30/22 07/30/22 clobetasol 0.05 % topical ointment 1 applic topical BID PRN flare ups 07/30/22 07/30/22 (Temovate) ipratropium 0.5 mg-albuterol 3 mg 3 ml inhalation Q6H PRN Shortness 07/30/22 07/30/22 (2.5 mg base)/3 mL nebulization Of Breath Or Wheezing soln levothyroxine 200 mcg tablet 200 mcg PO DAILY 07/30/22 07/30/22 metformin 1,000 mg tablet 1,000 mg PO BID 07/30/22 07/30/22 repaglinide 1 mg tablet 0.5 mg PO DIRECTED 07/30/22 07/30/22 Previous Rx's Medication Instructions Recorded hydralazine 25 mg tablet 12.5 mg PO BID #30 tabs 08/02/22 prednisone 20 mg tablet 40 mg PO DAILY #10 tabs 08/02/22 Results & Data (ED) Vital Signs Vital Signs - 24 hr 10/15/22 09:01 10/15/22 09:01 10/15/22 09:01 Temperature 37.1 C 37.1 C Temperature Source Oral Oral Pulse Rate 107 H Pulse Rate [Apical] 107 H Pulse Rhythm [Apical] Regular Respiratory Rate 30 H 30 H Respiratory Effort / Characteristics Spontaneous Accessory Muscle Use Short of Breath Respiratory Depth Deep Deep Deep Respiratory Pattern Regular Regular Regular Blood Pressure 186/108 H Blood Pressure [Right Arm] 186/108 H Blood Pressure Mean 134 Blood Pressure Mean [Right Arm] 134 Blood Pressure Position Lying Blood Pressure Position [Right Arm] Lying Pulse Oximetry 98 98 Oxygen Delivery Method Trach Collar Trach Collar Trach Collar Oxygen Flow Rate 5 5 5 Sepsis Recent Fever Within 48 Hours Yes Sepsis New/Unexplained Change in Mental Status No Sepsis Action Taken by Nursing Physician Notified Oxygen Flow Rate - Titration Pulse Oximetry Post Tiitration 10/15/22 09:01 10/15/22 09:07 10/15/22 09:20 Temperature Temperature Source Pulse Rate 107 H Pulse Rate [Apical] Pulse Rhythm [Apical] Respiratory Rate Respiratory Effort / Characteristics Respiratory Depth Respiratory Pattern Blood Pressure Blood Pressure [Right Arm] Blood Pressure Mean Blood Pressure Mean [Right Arm] Blood Pressure Position Blood Pressure Position [Right Arm] Pulse Oximetry 86 L 98 Oxygen Delivery Method Trach Collar Trach Collar Oxygen Flow Rate 0 5 Sepsis Recent Fever Within 48 Hours Sepsis New/Unexplained Change in Mental Status Sepsis Action Taken by Nursing Oxygen Flow Rate - Titration 5 Pulse Oximetry Post Tiitration 98 10/15/22 10:41 10/15/22 11:34 Temperature Temperature Source Pulse Rate Pulse Rate [Apical] 107 H Pulse Rhythm [Apical] Respiratory Rate 30 H Respiratory Effort / Characteristics Accessory Muscle Use Respiratory Depth Deep Respiratory Pattern Regular Blood Pressure Blood Pressure [Right Arm] 176/96 H Blood Pressure Mean Blood Pressure Mean [Right Arm] 122 Blood Pressure Position Blood Pressure Position [Right Arm] Lying Pulse Oximetry 97 100 Oxygen Delivery Method Trach Collar Trach Collar Oxygen Flow Rate 5 6 Sepsis Recent Fever Within 48 Hours Sepsis New/Unexplained Change in Mental Status Sepsis Action Taken by Nursing Oxygen Flow Rate - Titration 5 Pulse Oximetry Post Tiitration 100 Laboratory Data 10/15/22 08:59 10/15/22 08:59 Lab Results 10/15/22 10/15/22 10/15/22 Range/Units 08:59 08:59 08:59 WBC 8.05 (4.8-10.8) K/ul RBC 5.48 H (4.20-5.40) M/uL Hgb 15.5 (12.0-16.0) g/dl Hct 45.1 (37.0-47.0) % MCV 82.3 (80.0-100.0) fL MCH 28.3 (25.0-34.0) pg MCHC 34.4 (32.0-36.0) g/dL RDW Std Deviation 40.6 (36.4-46.3) fL RDW Coeff of Monika 13.6 (11.5-14.5) % Plt Count 310 (130-400) K/uL MPV 10.6 (9.4-12.4) fL Immature Gran % (Auto) 0.4 % Neut % (Auto) 69.9 % Lymph % (Auto) 16.0 % Preston % (Auto) 8.7 % Eos % (Auto) 4.0 % Baso % (Auto) 1.0 % Neut # (Auto) 5.63 (1.40-6.50) K/uL Lymph # (Auto) 1.29 (1.2-3.4) K/uL Preston # (Auto) 0.70 H (0.11-0.59) K/uL Eos # (Auto) 0.32 (0-0.50) K/uL Baso # (Auto) 0.08 (0-0.2) K/uL Immature Gran # (Auto) 0.03 (0.01-0.20) K/uL Sodium 141 (136-145) mmol/L Potassium 3.3 L (3.5-5.1) mmol/L Chloride 99 (98-107) mmol/L Carbon Dioxide 30 (21-32) mmol/L Anion Gap 12 H (3-11) BUN 12 (6-23) mg/dl Creatinine 0.94 (0.6-1.2) mg/dl Est Cr Clr Drug Dosing 62.6 ml/min Est GFR ( Amer) 73.8 ml/min Est GFR (Non-Af Amer) 63.7 ml/min BUN/Creatinine Ratio 12.8 (10-20) Glucose 183 H (70-99(Fasting)) mg/dl Lactate (0.4-2.0) mmol/L Calcium 7.9 L (8.6-10.3) mg/dl Magnesium 1.4 L (1.7-2.4) mg/dl Total Bilirubin 0.6 (0.2-1.0) mg/dl Direct Bilirubin 0.2 (0-0.2) mg/dl AST 21 (13-39) U/L ALT 21 (7-52) U/L Alkaline Phosphatase 123 H (34-104) U/L Troponin I High Sens 8.0 (0-14) pg/ml Total Protein 7.7 (6.0-8.3) gm/dl Albumin 4.2 (3.4-5.0) gm/dl Procalcitonin 0.18 (0-0.5) ng/ml Adenovirus (PCR) (NotDetected) B. pertussis DNA (PCR) (NotDetected) B.parapertussis DNA PCR (NotDetected) C. pneumoniae DNA (PCR) (NotDetected) Coronavirus OC43 (PCR) (NotDetected) Coronavirus HKU1 (PCR) (NotDetected) Coronavirus 229E (PCR) (NotDetected) SARS-CoV-2 (PCR) (NotDetected) Coronavirus NL63 (PCR) (NotDetected) Human Metapneumovir PCR (NotDetected) Influenza Type A (PCR) (NotDetected) Influenza Type B (PCR) (NotDetected) M. pneumoniae (PCR) (NotDetected) Parainfluenza 1 (PCR) (NotDetected) Parainfluenza 2 (PCR) (NotDetected) Parainfluenza 3 (PCR) (NotDetected) Parainfluenza 4 (PCR) (NotDetected) RSV (PCR) (NotDetected) Entero/Rhino (PCR) (NotDetected) 10/15/22 10/15/22 Range/Units 09:34 09:42 WBC (4.8-10.8) K/ul RBC (4.20-5.40) M/uL Hgb (12.0-16.0) g/dl Hct (37.0-47.0) % MCV (80.0-100.0) fL MCH (25.0-34.0) pg MCHC (32.0-36.0) g/dL RDW Std Deviation (36.4-46.3) fL RDW Coeff of Monika (11.5-14.5) % Plt Count (130-400) K/uL MPV (9.4-12.4) fL Immature Gran % (Auto) % Neut % (Auto) % Lymph % (Auto) % Preston % (Auto) % Eos % (Auto) % Baso % (Auto) % Neut # (Auto) (1.40-6.50) K/uL Lymph # (Auto) (1.2-3.4) K/uL Preston # (Auto) (0.11-0.59) K/uL Eos # (Auto) (0-0.50) K/uL Baso # (Auto) (0-0.2) K/uL Immature Gran # (Auto) (0.01-0.20) K/uL Sodium (136-145) mmol/L Potassium (3.5-5.1) mmol/L Chloride (98-107) mmol/L Carbon Dioxide (21-32) mmol/L Anion Gap (3-11) BUN (6-23) mg/dl Creatinine (0.6-1.2) mg/dl Est Cr Clr Drug Dosing ml/min Est GFR ( Amer) ml/min Est GFR (Non-Af Amer) ml/min BUN/Creatinine Ratio (10-20) Glucose (70-99(Fasting)) mg/dl Lactate 0.9 (0.4-2.0) mmol/L Calcium (8.6-10.3) mg/dl Magnesium (1.7-2.4) mg/dl Total Bilirubin (0.2-1.0) mg/dl Direct Bilirubin (0-0.2) mg/dl AST (13-39) U/L ALT (7-52) U/L Alkaline Phosphatase (34-104) U/L Troponin I High Sens (0-14) pg/ml Total Protein (6.0-8.3) gm/dl Albumin (3.4-5.0) gm/dl Procalcitonin (0-0.5) ng/ml Adenovirus (PCR) Not Detected (NotDetected) B. pertussis DNA (PCR) Not Detected (NotDetected) B.parapertussis DNA PCR Not Detected (NotDetected) C. pneumoniae DNA (PCR) Not Detected (NotDetected) Coronavirus OC43 (PCR) Not Detected (NotDetected) Coronavirus HKU1 (PCR) Not Detected (NotDetected) Coronavirus 229E (PCR) Not Detected (NotDetected) SARS-CoV-2 (PCR) Not Detected (NotDetected) Coronavirus NL63 (PCR) Not Detected (NotDetected) Human Metapneumovir PCR Not Detected (NotDetected) Influenza Type A (PCR) Not Detected (NotDetected) Influenza Type B (PCR) Not Detected (NotDetected) M. pneumoniae (PCR) Not Detected (NotDetected) Parainfluenza 1 (PCR) Not Detected (NotDetected) Parainfluenza 2 (PCR) Not Detected (NotDetected) Parainfluenza 3 (PCR) DETECTED A* (NotDetected) Parainfluenza 4 (PCR) Not Detected (NotDetected) RSV (PCR) Not Detected (NotDetected) Entero/Rhino (PCR) Not Detected (NotDetected) Administered Medications Discontinued Medications Albuterol (Albut/Ipratrop 3mg/0.5mg Neb 3 Ml Vial) 3 ml NEB NOW STA; Protocol Stop: 10/15/22 09:17 Last Admin: 10/15/22 09:23 Dose: 3 ml Documented By: AMBROSIO Albuterol (Albuterol Hfa 8 Gm Inhaler) 2 puffs INH NOW ONE Stop: 10/15/22 11:18 Last Admin: 10/15/22 11:37 Dose: 2 puffs Documented By: AMBROSIO Cefepime HCl (Maxipime) 2,000 mg in 20 mls @ 5 mls/min IV NOW STA; Protocol Stop: 10/15/22 09:19 Last Admin: 10/15/22 09:23 Dose: 5 mls/min Documented By: AMBROSIO Sodium Chloride (Nss 1000ml) 1,000 mls @ 999 mls/hr IV .Q1H1M LAURA Stop: 10/15/22 10:30 Last Infusion: 10/15/22 10:42 Dose: 0 mls/hr Documented By: Admin: 10/15/22 09:23 Dose: 999 mls/hr Documented By: AMBROSIO Ioversol (Optiray 320 500ml) 111 ml IV ONCE ONE Stop: 10/15/22 12:50 Last Admin: 10/15/22 12:40 Dose: 111 ml Documented By: Imaging Data Radiologist's Impression: Chest X-Ray 10/15/22 09:16 SINGLE VIEW CHEST CLINICAL HISTORY: Sepsis. FINDINGS: 2 AP, portable, upright chest radiographs are compared to study dated 07/31/2022 and correlated with chest CT dated 07/30/2022. The heart is enlarged. The pulmonary vasculature is noncongested. Chronic interstitial thickening is similar to previous. The lungs and pleural spaces are clear noting mild bibasilar scarring/atelectasis. No pneumothorax is seen. The skeletal structures are osteopenic. The bony thorax is grossly intact. IMPRESSION: Mild cardiac enlargement with no active disease in the chest. ACT 112: Negative or not required by law. Electronically signed by: Vic Vásquez M.D. 10/15/2022 9:49 AM Chest CTA 10/15/22 11:23 CT ANGIOGRAM OF THE CHEST CLINICAL HISTORY: Hypoxia. Dyspnea. COMPARISON STUDY: Chest x-ray dated 10/15/2022. Chest CT dated 07/30/2022. TECHNIQUE: Following the IV administration of 111 cc of Optiray 320, CT angiogram of the chest was performed from the upper abdomen to the thoracic inlet utilizing the pulmonary embolus protocol. Images are reviewed in the axial, sagittal, and coronal planes. 3-D MIPS images are created and assessed. IV contrast was administered without complication. A dose lowering technique was utilized adhering to the principles of ALARA. The examination is significantly compromised by motion artifact. CT DOSE: 511.32 mGy.cm FINDINGS: Thyroid: Atrophic versus surgically absent. Thoracic aorta: There is atherosclerotic calcification of the thoracic aorta, which is normal in caliber and demonstrates standard 3-vessel arch anatomy. No dissection is seen. Pulmonary vasculature: The pulmonary trunk is normal in caliber. There are no filling defects identified in main, lobar, or proximal segmental pulmonary branches to suggest pulmonary embolus. Evaluation of the segmental and subsegmental branches is significantly degraded by motion artifact. Heart: The heart is enlarged and without pericardial effusion. There are coronary artery calcifications. Lungs and pleural spaces: A tracheostomy is in place. Evaluation of the lung parenchyma is compromised by motion artifact. There is no airspace consolidation typical for pneumonia or pleural effusion. The wall of the trachea and central airways is diffusely thickened with mild surrounding infiltration. There is focal narrowing of the trachea below the thoracic inlet. Secretions/debris is seen within the distal trachea as well as the mainstem bronchi. There are foci of mucus plugging in the lower lobe airways. A 7 mm pleural-based nodule at the left apex on the major fissure as seen on image #250. There is an 8 mm groundglass nodule in the left upper lobe on image #236. These are unchanged from previous. Additional tiny groundglass nodules in both upper lobes are also likely unchanged. Patient Sitter nodules are seen in the left upper lobe on images #269, #266, and #229 and in the right upper lobe on image #243. Mediastinum: Prominent mediastinal lymph nodes are similar to previous. A precarinal node measures up to 11 mm short axis. Jacquelyn: Clear. Axillae: There is no axillary lymphadenopathy. Upper abdomen: The gallbladder surgically absent. The liver appears steatotic. Pneumobilia is similar to previous. A small hiatal hernia is noted. A 13 mm left adrenal adenoma is unchanged. Skeletal structures: The skeletal structures are osteopenic. No lytic or blastic bony lesions are seen. There are chronic/healed right-sided rib fractures. A rthritic change is seen in the shoulders. IMPRESSION: 1. Significantly motion compromised examination. 2. There is no evidence of central pulmonary embolus in the main, lobar, or proximal segmental pulmonary arteries. 3. Circumferential wall thickening of the trachea and central airways with surrounding infiltration is similar to previous. There is narrowing of the trachea below the thoracic inlet. Correlate clinically for evidence of a nonspecific tracheitis possible tracheal stenosis. This could be further assessed with bronchoscopy if clinically warranted. 4. There is no airspace consolidation typical for pneumonia or pleural effusion. 5. Intraluminal debris is noted in the trachea and central airways. Correlate clinically for evidence of aspiration . 6. Cardiomegaly. 7. Solid and groundglass nodules in the upper lobes are similar to previous. Follow-up is recommended as per the Fleischner criteria. See below. 8. Additional findings as above Please refer to below summary of Fleischner criteria recommendations for follow- up of incidental CT nodules (Gideon Escalera, Guidelines for management of small pulmonary nodules detected on CT scans: A statement from the Fleischner Society, Radiology 237: [phone].) SOLID NODULES Solitary nodule size: <6 mm * low risk patients: no follow-up needed * high risk patients: optional CT at 12 months Solitary nodule size: 6-8 mm * low risk patients: follow-up at 6-12 months, then consider further follow-up at 18-24 months * high risk patients: initial follow-up CT at 6-12 months and then at 18-24 months if no change Solitary nodule size: >8 mm * either low or high risk patients - consider follow-up CT at 3 months, and/or CT-PET, and/or biopsy Multiple nodules size: <6 mm * low risk patients: no routine follow-up * high risk patients: optional CT at 12 months Multiple nodules size: 6-8 mm * low risk patients: follow-up at 3-6 months, then consider further follow-up at 18-24 months * high risk patients: follow-up at 3-6 months, then at 18-24 months if no change Multiple nodules size: >8 mm * low risk patients: follow-up at 3-6 months, then consider further follow-up at 18-24 months * high risk patients: follow-up at 3-6 months, then at 18-24 months if no change Note: newly detected indeterminate nodule in persons 35 years of age or older. * low risk patients: minimal or absent history of smoking and/or other known risk factors * high risk patients: history of smoking or of other known risk factors (e.g. first degree relative with lung cancer, or exposure to asbestos, radon, uranium) * if a nodule up to 8 mm is partly solid or is ground glass further follow-up is required after 24 months to exclude possible slow growing adenocarcinoma (RAPHAEL) SUBSOLID NODULES Solitary pure ground-glass nodule * nodule size <6 mm - no CT follow-up required * nodule size >=6 mm - follow-up CT at 6-12 months, then every 2 years until 5 years Solitary part-solid nodule * nodule size <6 mm - no CT follow-up required * nodule size >=6 mm - follow-up CT at 3-6 months. If unchanged, and solid component remains <6 mm, then annual follow-up for 5 years Multiple subsolid nodules * nodule size <6 mm - follow-up CT at 3-6 months, consider further follow-up at 2 and 4 years if stable * nodule size >=6 mm - follow-up CT at 3-6 months, subsequent management based on the most suspicious nodule(s) ACT 112: Negative or not required by law. Electronically signed by: Vic Vásquez M.D. 10/15/2022 1:05 PM Discharge Plan Visit Data Chief Complaint: Shortness of Breath/Dyspnea ED Provider: Matt Otero Discharge Problem: Hypoxia, Asthma exacerbation Forms Stand Alone Forms: [facility], [facility] Emergency Department, Important Visit Information Prescriptions Prescriptions: No Action triamcinolone acetonide 0.1 % cream 1 appln TOP BID pantoprazole [Protonix] 40 mg tablet,delayed release (DR/EC) 40 mg PO QAM losartan [Cozaar] 100 mg tablet 100 mg PO QAM cyanocobalamin (vitamin B-12) 500 mcg tablet,disintegrating 500 mcg SL BID repaglinide 1 mg Tablet 1 mg PO BID Rx Instructions: Take 1 tab before breakfast & supper carvedilol 25 mg tablet 25 mg PO BID ipratropium-albuterol 0.5 mg-3 mg(2.5 mg base)/3 mL Solution For Nebulization 3 ml INHALATION Q6H PRN (Reason: Shortness Of Breath Or Wheezing) levothyroxine 200 mcg tablet 200 mcg PO DAILY clobetasol [Temovate] 0.05 % Ointment 1 applic TOPICAL BID PRN (Reason: flare ups) Rx Instructions: apply to affected areas on arms & feet. Start 07/21/2022. repaglinide 1 mg tablet 0.5 mg PO DIRECTED Rx Instructions: Take with night time snack albuterol sulfate 2.5 mg /3 mL (0.083 %) Solution For Nebulization 2.5 mg INHALATION DIRECTED (DME) [employer] G6 Sensor Device MISCELLANEOUS amlodipine 10 mg tablet 10 mg PO DAILY metformin 1,000 mg tablet 1,000 mg PO BID prednisone 20 mg Tablet 40 mg PO DAILY Qty: 10 0RF hydralazine 25 mg tablet 12.5 mg PO BID Qty: 30 0RF Rx Instructions: Take 1/2 tab twice daily Referrals Referrals: Orlin Castro MD [Primary Care Provider] -
[2022-10-15 09:40] LABS: Albumin Level 4.2 gm/dl (3.4-5.0); BUN Creatinine Ratio 12.8 (10-20); Bilirubin Direct 0.2 mg/dl (0-0.2); Bilirubin,Total 0.6 mg/dl (0.2-1.0); Calcium 7.9 mg/dl (8.6-10.3); Creatinine Clr Calc Pharmacy 62.6 ml/min; Est GFR (African American) 73.8 ml/min; Est GFR (Non-African American) 63.7 ml/min; Magnesium 1.4 mg/dl (1.7-2.4); Potassium 3.3 mmol/L (3.5-5.1); Total Protein 7.7 gm/dl (6.0-8.3)
--- NOTE | 2022-10-15 09:51 | XRay Report ---
SINGLE VIEW CHEST CLINICAL HISTORY: Sepsis. FINDINGS: 2 AP, portable, upright chest radiographs are compared to study dated 07/31/2022 and correla davis with chest CT dated 07/30/2022. The heart is enlarged. The pulmonary vasculature is noncongested. Chronic interstitial thickening is similar to previous. The lungs and pleural spaces are clear noting mild bibasilar scarring/atelectasis. No pneumothorax is seen. The skeletal structures are osteopenic . The bony thorax is grossly intact. IMPRESSION: Mild cardiac enlargement with no active disease in the chest. ACT 112: Negative or not required by law. Electronically signed by: Vic Vásquez M.D. 10/15/2022 9:49 AM
[2022-10-15 10:58] LABS: Adenovirus PCR Not Detected (NotDetected); Bordetella parapertussis PCR Not Detected (NotDetected); Bordetella pertussis PCR Not Detected (NotDetected); Chlamydia pneumoniae PCR Not Detected (NotDetected); Coronavirus 229E PCR Not Detected (NotDetected); Coronavirus CoV-2 (COVID19)PCR Not Detected (NotDetected); Coronavirus HKU1 PCR Not Detected (NotDetected); Coronavirus NL63 PCR Not Detected (NotDetected); Coronavirus OC43PCR Not Detected (NotDetected); Human Metapneumovirus PCR Not Detected (NotDetected); Influenza A PCR Not Detected (NotDetected); Influenza B PCR Not Detected (NotDetected); Mycoplasma pneumoniae PCR Not Detected (NotDetected); Parainfluenza Virus 1 PCR Not Detected (NotDetected); Parainfluenza Virus 2 PCR Not Detected (NotDetected); Parainfluenza Virus 4 PCR Not Detected (NotDetected); Respiratory Syncytial VirusPCR Not Detected (NotDetected); Rhinovirus/Enterovirus PCR Not Detected (NotDetected)
[2022-10-15 11:03] LABS: Parainfluenza Virus 3 PCR DETECTED (NotDetected)
[2022-10-15] MEDS ORDERED: ALBUTEROL HFA 8 GM INHALER INH ONE (11:17)
[2022-10-15] MEDS ORDERED: OPTIRAY 320 500ml IV ONE (12:49)
--- NOTE | 2022-10-15 13:07 | CT Scan Report ---
CT ANGIOGRAM OF THE CHEST CLINICAL HISTORY: Hypoxia. Dyspnea. COMPARISON STUDY: Chest x-ray dated 10/15/2022. Chest CT dated 07/30/2022. TECHNIQUE: Following the IV administration of 111 cc of Optiray 320, CT angiogram of the chest was pe rformed from the upper abdomen to the thoracic inlet utilizing the pulmonary embolus protocol. Images are reviewed in the axial, sagittal, and coronal planes. 3-D MIPS images are created and assessed. I V contrast was administered without complication. A dose lowering technique was utilized adhering to the principles of ALARA. The examination is significantly compromised by motion artifact. CT DOSE: 511.32 mGy.cm FINDINGS: Thyroid: Atrophic versus surgically absent. Thoracic aorta: There is atherosclerotic calcification of the thoracic aorta, which is normal in antony kt and demonstrates standard 3-vessel arch anatomy. No dissection is seen. Pulmonary vasculature: The pulmonary trunk is normal in caliber. There are no filling defects identif ied in main, lobar, or proximal segmental pulmonary branches to suggest pulmonary embolus. Evaluation of the segmental and subsegmental branches is significantly degraded by motion artifact. Heart: The heart is enlarged and without pericardial effusion. There are coronary artery calcificatio ns. Lungs and pleural spaces: A tracheostomy is in place. Evaluation of the lung parenchyma is compromise d by motion artifact. There is no airspace consolidation typical for pneumonia or pleural effusion. T he wall of the trachea and central airways is diffusely thickened with mild surrounding infiltration. There is focal narrowing of the trachea below the thoracic inlet. Secretions/debris is seen within t he distal trachea as well as the mainstem bronchi. There are foci of mucus plugging in the lower lobe airways. A 7 mm pleural-based nodule at the left apex on the major fissure as seen on image #250. Th ere is an 8 mm groundglass nodule in the left upper lobe on image #236. These are unchanged from prev ious. Additional tiny groundglass nodules in both upper lobes are also likely unchanged. Representati ve nodules are seen in the left upper lobe on images #269, #266, and #229 and in the right upper lobe on image #243. Mediastinum: Prominent mediastinal lymph nodes are similar to previous. A precarinal node measures up to 11 mm short axis. Jacquelyn: Clear. Axillae: There is no axillary lymphadenopathy. Upper abdomen: The gallbladder surgically absent. The liver appears steatotic. Pneumobilia is similar to previous. A small hiatal hernia is noted. A 13 mm left adrenal adenoma is unchanged. Skeletal structures: The skeletal structures are osteopenic. No lytic or blastic bony lesions are see n. There are chronic/healed right-sided rib fractures. Arthritic change is seen in the shoulders. IMPRESSION: 1. Significantly motion compromised examination. 2. There is no evidence of central pulmonary embolus in the main, lobar, or proximal segmental pulmon michela arteries. 3. Circumferential wall thickening of the trachea and central airways with surrounding infiltration i s similar to previous. There is narrowing of the trachea below the thoracic inlet. Correlate clinical ly for evidence of a nonspecific tracheitis possible tracheal stenosis. This could be further assesse d with bronchoscopy if clinically warranted. 4. There is no airspace consolidation typical for pneumonia or pleural effusion. 5. Intraluminal debris is noted in the trachea and central airways. Correlate clinically for evidence of aspiration . 6. Cardiomegaly. 7. Solid and groundglass nodules in the upper lobes are similar to previous. Follow-up is recommended as per the Fleischner criteria. See below. 8. Additional findings as above Please refer to below summary of Fleischner criteria recommendations for follow-up of incidental CT n odules (Gideon Escalera, Guidelines for management of small pulmonary nodules detected on CT scans: A sta tement from the Fleischner Society, Radiology 237: [id number].) SOLID NODULES Solitary nodule size: <6 mm * low risk patients: no follow-up needed * high risk patients: optional CT at 12 months Solitary nodule size: 6-8 mm * low risk patients: follow-up at 6-12 months, then consider further follow-up at 18-24 months * high risk patients: initial follow-up CT at 6-12 months and then at 18-24 months if no change Solitary nodule size: >8 mm * either low or high risk patients - consider follow-up CT at 3 months, and/or CT-PET, and/or biopsy Multiple nodules size: <6 mm * low risk patients: no routine follow-up * high risk patients: optional CT at 12 months Multiple nodules size: 6-8 mm * low risk patients: follow-up at 3-6 months, then consider further follow-up at 18-24 months * high risk patients: follow-up at 3-6 months, then at 18-24 months if no change Multiple nodules size: >8 mm * low risk patients: follow-up at 3-6 months, then consider further follow-up at 18-24 months * high risk patients: follow-up at 3-6 months, then at 18-24 months if no change Note: newly detected indeterminate nodule in persons 35 years of age or older. * low risk patients: minimal or absent history of smoking and/or other known risk factors * high risk patients: history of smoking or of other known risk factors (e.g. first degree relative with lung cancer, or exposure to asbestos, radon, uranium) * if a nodule up to 8 mm is partly solid or is ground glass further follow-up is required after 24 m onths to exclude possible slow growing adenocarcinoma (RAPHAEL) SUBSOLID NODULES Solitary pure ground-glass nodule * nodule size <6 mm - no CT follow-up required * nodule size >=6 mm - follow-up CT at 6-12 months, then every 2 years until 5 years Solitary part-solid nodule * nodule size <6 mm - no CT follow-up required * nodule size >=6 mm - follow-up CT at 3-6 months. If unchanged, and solid component remains <6 mm, then annual follow-up for 5 years Multiple subsolid nodules * nodule size <6 mm - follow-up CT at 3-6 months, consider further follow-up at 2 and 4 years if sta ble * nodule size >=6 mm - follow-up CT at 3-6 months, subsequent management based on the most suspiciou s nodule(s) ACT 112: Negative or not required by law. Electronically signed by: Vic Vásquez M.D. 10/15/2022 1:05 PM
--- NOTE | 2022-10-15 13:32 | History & Physical Report ---
Date of Service October 15, 2022 Assessment & Plan (1) URI (upper respiratory infection): (2) Chronic obstructive pulmonary disease: (3) Status post tracheostomy: (4) Hypertension: (5) History of thyroid cancer: (6) History of pancreatic cancer: (7) Acute and chronic respiratory failure with hypoxia: Plan This is a 66-year-old female with PMH of history of thyroid/throat cancer s/p laryngectomy with tracheostomy, pancreatic cancer s/p Whipple procedure, type 2 diabetes, COPD, DVT status post surgical procedure, hypertension, hyperlipidemia and other medical problems listed below who presents with shortness of breath starting yesterday afternoon found to have acute hypoxic respiratory failure and URI. Acute hypoxic respiratory failure Parainfluenza virus S/p trach Hypoxic in 80s initially, dropped to 70s with exertion. Now 100% on 6L/min trach collar Afebrile, no leukocytosis. Parainfluenza 3 detected on PCR Chest CTA with no evidence of pulmonary embolus, correlate clinically for evidence of nonspecific tracheitis possible tracheal stenosis. Intraluminal debris noted in the trachea and central airways and mucous plugging in lower airways Continue supplemental O2, nebs, mucinex. Given empiric cefepime in ED with blood and sputum cultures pending Routine pulm consult, appreciate additional recs Diarrhea Present with virus. Adding stool cx, c diff HTN BP elevated at 176.96 in ED- given missed doses of AM meds. Continue amlodipine, carvedilol and losartan Hypokalemia Hypomagnesemia Replaced, monitor in AM Psoriasis Cont clobetasol topically BID DM II A1c 7.5 from September 2022 Hold home agents SSI while in-patient BSG AC HS DVT Ppx: SQ lovenox Code status: FULL PCP: Matthew Dispo: Admitted to PCU Patient seen in collaboration with Dr. Davies. Please see addendum. I spent a total of 75 minutes coordinating, documenting, and providing care for this patient excluding time spent in the performance of separately billed services. History of Present Illness Chief Complaint: SOB Primary Care Provider: Orlin Castro MD This is a 66-year-old female with PMH of history of thyroid/throat cancer s/p laryngectomy with tracheostomy, pancreatic cancer s/p Whipple procedure, type 2 diabetes, COPD, DVT status post surgical procedure, hypertension, hyperlipidemia and other medical problems listed below who presents with shortness of breath starting yesterday afternoon. Patient was in normal state of health until she started to feel tired, rundown and developed shortness of breath. Is not on oxygen at baseline. Denies any increased sputum production from trachea. Denies any known sick contacts. In addition to shortness of breath, endorsing diarrhea since yesterday. No fever, chills, lightheadedness, headache, chest pain, nausea, vomiting, abdominal pain, dysuria or constipation. Did not take any of her home medications this morning aside from levothyroxine. Allergies Allergy/AdvReac Type Severity Reaction Status Date / Time NSAIDS (Non-Steroidal Allergy Unknown Ulcer & Verified 07/30/22 19:02 Anti-Inflamma anemia zolpidem [From Ambien] Allergy Unknown pysch Verified 07/30/22 19:02 complications, dizzy hydrochlorothiazide AdvReac Acute Verified 07/30/22 19:02 kidney injury rosuvastatin [From Crestor] AdvReac Elavated Verified 07/30/22 19:02 liver function test Home Medications Medication Instructions Recorded Confirmed Type cyanocobalamin (vitamin B-12) 500 500 mcg sublingual BID 08/09/19 10/15/22 History mcg disintegrating tablet,sublingual losartan 100 mg tablet (Cozaar) 100 mg PO QAM 08/09/19 10/15/22 History pantoprazole 40 mg tablet,delayed 40 mg PO QAM 08/09/19 10/15/22 History release (Protonix) triamcinolone acetonide 0.1 % 1 appln topical BID 08/09/19 10/15/22 History topical cream repaglinide 1 mg tablet 1 mg PO BID 11/27/21 10/15/22 History albuterol sulfate 2.5 mg/3 mL 2.5 mg inhalation DIRECTED 07/30/22 10/15/22 History (0.083 %) solution for nebulization amlodipine 10 mg tablet 10 mg PO DAILY 07/30/22 10/15/22 History blood-glucose sensor (Dexcom G6 07/30/22 10/15/22 History Sensor device) carvedilol 25 mg tablet 25 mg PO BID 07/30/22 10/15/22 History clobetasol 0.05 % topical ointment 1 applic topical BID PRN flare ups 07/30/22 10/15/22 History (Temovate) levothyroxine 200 mcg tablet 200 mcg PO DAILY 07/30/22 10/15/22 History metformin 1,000 mg tablet 1,000 mg PO BID 07/30/22 10/15/22 History cyclobenzaprine 10 mg tablet 10 mg PO HS PRN Muscle Spasm 10/15/22 10/15/22 History sucralfate 1 gram tablet 1 g PO QID 10/15/22 10/15/22 History tiotropium bromide 2.5 2 inh inhalation QAM 10/15/22 10/15/22 History mcg/actuation mist for inhalation (Spiriva Respimat) Past Med/Surg History Medical History Acute exacerbation of chronic obstructive pulmonary disease (COPD) Adrenal adenoma Has upcoming appt with endo PCP did work up prior (cortisol normal, DHEA hormone normal, 24 hour catecholamines WNL, plasma renin low (could be due to BP meds per PCP)) Asthma Asthma exacerbation Chronic obstructive pulmonary disease CKD (chronic kidney disease), stage III Coagulopathy Diabetes DVT (deep venous thrombosis) WITH SURGERY TRACH 2004-WAS ON BLOOD THINNER FOR A PERIOD OF TIME-THEN OFF-NO ISSUES SINCE History of colon cancer Dx'ed in 2002 (has familial adenomatous polyposis) S/p ileostomy and then J pouch procedure No chemo or XRT History of pancreatic cancer 2016 S/p Whipple procedure No chemo or XRT History of throat cancer Dxed 2006- s/p laryngectomy with trach placement No chemo or XRT History of thyroid cancer Papillary thyroid carcinoma (with throat cancer per patient) 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 S/p stomaplasty (11/2020) and tracheostoma revision (05/2021) S/p thyroidectomy No chemo or XRT Hyperlipidemia Hypertension Hypertensive urgency Hypothyroidism associated with surgical procedure Hypoxia Murmur, cardiac F/U DR DEE ACEVEDO No murmur per routine 06/2021 cardio visit SOB (shortness of breath) on exertion 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 No current issues Surgical History History of bowel resection WITH J POUCH History of colonoscopy History of esophagogastroduodenoscopy (EGD) History of radical neck dissection WITH TRACHEOSTOMY-2004 History of thyroidectomy History of Whipple procedure X 2-LAST 2012 Family History Family/Other Heart disease Lung disease Cancer Father Family hx of colon cancer Sister Family hx of colon cancer Social History Smoking Status: Former smoker Tobacco Type: Cigarettes Second Hand Exposure: Yes; Hx Alcohol Use: No Hx Substance Use: No Preferred Language: Bahraini Communication Ability: Effective Communication Ability Comment: Patient uses a Cervox since she has 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 Rn Social Work Required: No Beliefs That Will Affect Care: None marital status: Current Living Situation: Alone current occupational status: disabled Feels Safe at Home: Yes Safety Concerns: Feels Safe At This Time Assistive Devices: None Review of Systems Review of Systems: At least ten systems reviewed and negative except as noted in the HPI. Physical Exam Physical Exam: General Appearance: WD/WN, vitals as above, NAD, sitting up in bed, appears ill, able to communicate with vocal prosthesis device Head: normocephalic, atraumatic Eyes: normal inspection, PERRL, conjunctivae normal, anicteric sclerae ENT: external ear and nose normal, oropharynx normal Neck: normal visual inspection, + trach with oxygen collar Respiratory: increased respiratory effort, decreased breath sounds throughout, no wheeze or rales. + accessory muscle use Cardiovascular: tachycardic rate, regular rhythm, normal peripheral pulses, no BLE edema. Vessels: no JVD Chest: normal inspection of chest Abdomen/GI: normal bowel sounds, soft, nontender, no hepatosplenomegaly Extremities/Musculoskeletal: no cyanosis or clubbing, extremities motor strength 5/5 Neurologic: PERRL, EOMI, accommodation nl, no face palsy, no dysarthria, CN's II-XI intact bilaterally and moves all extremities Psychiatric: A+Ox3, euthymic affect Skin: no rashes, normal color, warm/dry Results & Data Results & Data Vital Signs (Past 12 Hours) Vital Signs Temp Pulse Pulse Resp BP BP Pulse Ox 10/15/22 13:23 103 H 10/15/22 11:34 100 10/15/22 10:41 107 H 30 H 176/96 H 97 10/15/22 09:20 98 10/15/22 09:07 107 H 10/15/22 09:01 86 L 10/15/22 09:01 10/15/22 09:01 37.1 C 107 H 30 H 186/108 H 98 10/15/22 09:01 37.1 C 107 H 30 H 186/108 H 98 O2 Del Method O2 Flow Rate 10/15/22 13:23 10/15/22 11:34 Trach Collar 6 10/15/22 10:41 Trach Collar 5 10/15/22 09:20 Trach Collar 5 10/15/22 09:07 10/15/22 09:01 Trach Collar 0 10/15/22 09:01 Trach Collar 5 10/15/22 09:01 Trach Collar 5 10/15/22 09:01 Trach Collar 5 Laboratory Results Short CBC 10/15/22 Range/Units 08:59 WBC 8.05 (4.8-10.8) K/ul Hgb 15.5 (12.0-16.0) g/dl Hct 45.1 (37.0-47.0) % Plt Count 310 (130-400) K/uL BMP 10/15/22 08:59 Sodium 141 Potassium 3.3 L Chloride 99 Carbon Dioxide 30 BUN 12 Creatinine 0.94 Glucose 183 H Calcium 7.9 L Liver Function 10/15/22 Range/Units 08:59 Total Bilirubin 0.6 (0.2-1.0) mg/dl Direct Bilirubin 0.2 (0-0.2) mg/dl AST 21 (13-39) U/L ALT 21 (7-52) U/L Alkaline Phosphatase 123 H (34-104) U/L Albumin 4.2 (3.4-5.0) gm/dl Diagnostic Findings Chest X-Ray 10/15/22 09:16 SINGLE VIEW CHEST CLINICAL HISTORY: Sepsis. FINDINGS: 2 AP, portable, upright chest radiographs are compared to study dated 07/31/2022 and correlated with chest CT dated 07/30/2022. The heart is enlarged. The pulmonary vasculature is noncongested. Chronic interstitial thickening is similar to previous. The lungs and pleural spaces are clear noting mild bibasilar scarring/atelectasis. No pneumothorax is seen. The skeletal structures are osteopenic. The bony thorax is grossly intact. IMPRESSION: Mild cardiac enlargement with no active disease in the chest. ACT 112: Negative or not required by law. Electronically signed by: Vic Vásquez M.D. 10/15/2022 9:49 AM Chest CTA 10/15/22 11:23 CT ANGIOGRAM OF THE CHEST CLINICAL HISTORY: Hypoxia. Dyspnea. COMPARISON STUDY: Chest x-ray dated 10/15/2022. Chest CT dated 07/30/2022. TECHNIQUE: Following the IV administration of 111 cc of Optiray 320, CT angiogram of the chest was performed from the upper abdomen to the thoracic inlet utilizing the pulmonary embolus protocol. Images are reviewed in the axial, sagittal, and coronal planes. 3-D MIPS images are created and assessed. IV contrast was administered without complication. A dose lowering technique was utilized adhering to the principles of ALARA. The examination is significan tly compromised by motion artifact. CT DOSE: 511.32 mGy.cm FINDINGS: Thyroid: Atrophic versus surgically absent. Thoracic aorta: There is atherosclerotic calcification of the thoracic aorta, w hich is normal in caliber and demonstrates standard 3-vessel arch anatomy. No dissection is seen. Pulmonary vasculature: The pulmonary trunk is normal in caliber. There are no filling defects identified in main, lobar, or proximal segmental pulmonary branches to suggest pulmonary embolus. Evaluation of the segmental and subsegmental branches is significantly degraded by motion artifact. Heart: The heart is enlarged and without pericardial effusion. There are coronary artery calcifications. Lungs and pleural spaces: A tracheostomy is in place. Evaluation of the lung parenchyma is compromised by motion artifact. There is no airspace consolidation typical for pneumonia or pleural effusion. The wall of the trachea and central airways is diffusely thickened with mild surrounding infiltration. There is focal narrowing of the trachea below the thoracic inlet. Secretions/debris is seen within the distal trachea as well as the mainstem bronchi. There are foci of mucus plugging in the lower lobe airways. A 7 mm pleural-based nodule at the left apex on the major fissure as seen on image #250. There is an 8 mm groundglass nodule in the left upper lobe on image #236. These are unchanged f rom previous. Additional tiny groundglass nodules in both upper lobes are also likely unchanged. Pulverizer nodules are seen in the left upper lobe on images #269, #266, and #229 and in the right upper lobe on image #243. Mediastinum: Prominent mediastinal lymph nodes are similar to previous. A precarinal node measures up to 11 mm short axis. Jacquelyn: Clear. Axillae: There is no axillary lymphadenopathy. Upper abdomen: The gallbladder surgically absent. The liver appears steatotic. Pneumobilia is similar to previous. A small hiatal hernia is noted. A 13 mm left adrenal adenoma is unchanged. Skeletal structures: The skeletal structures are osteopenic. No lytic or blastic bony lesions are seen. There are chronic/healed right-sided rib fractures. Arthritic change is seen in the shoulders. IMPRESSION: 1. Significantly motion compromised examination. 2. There is no evidence of central pulmonary embolus in the main, lobar, or proximal segmental pulmonary arteries. 3. Circumferential wall thickening of the trachea and central airways with surrounding infiltration is similar to previous. There is narrowing of the trachea below the thoracic inlet. Correlate clinically for evidence of a nonspecific tracheitis possible tracheal stenosis. This could be further assessed with bronchoscopy if clinically warranted. 4. There is no airspace consolidation typical for pneumonia or pleural effusion. 5. Intraluminal debris is noted in the trachea and central airways. Correlate clinically for evidence of aspiration . 6. Cardiomegaly. 7. Solid and groundglass nodules in the upper lobes are similar to previous. Follow-up is recommended as per the Fleischner criteria. See below. 8. Additional findings as above Please refer to below summary of Fleischner criteria recommendations for follow- up of incidental CT nodules (Gideon Escalera, Guidelines for management of small pulmonary nodules detected on CT scans: A statement from the Fleischner Society, Radiology 237: [phone].) SOLID NODULES Solitary nodule size: <6 mm * low risk patients: no follow-up needed * high risk patients: optional CT at 12 months Solitary nodule size: 6-8 mm * low risk patients: follow-up at 6-12 months, then consider further follow-up at 18-24 months * high risk patients: initial follow-up CT at 6-12 months and then at 18-24 months if no change Solitary nodule size: >8 mm * either low or high risk patients - consider follow-up CT at 3 months, and/or CT-PET, and/or biopsy Multiple nodules size: <6 mm * low risk patients: no routine follow-up * high risk patients: optional CT at 12 months Multiple nodules size: 6-8 mm * low risk patients: follow-up at 3-6 months, then consider further follow-up at 18-24 months * high risk patients: follow-up at 3-6 months, then at 18-24 months if no change Multiple nodules size: >8 mm * low risk patients: follow-up at 3-6 months, then consider further follow-up at 18-24 months * high risk patients: follow-up at 3-6 months, then at 18-24 months if no change Note: newly detected indeterminate nodule in persons 35 years of age or older. * low risk patients: minimal or absent history of smoking and/or other known risk factors * high risk patients: history of smoking or of other known risk factors (e.g. first degree relative with lung cancer, or exposure to asbestos, radon, uranium) * if a nodule up to 8 mm is partly solid or is ground glass further follow-up is required after 24 months to exclude possible slow growing adenocarcinoma (RAPHAEL) SUBSOLID NODULES Solitary pure ground-glass nodule * nodule size <6 mm - no CT follow-up required * nodule size >=6 mm - follow-up CT at 6-12 months, then every 2 years until 5 years Solitary part-solid nodule * nodule size <6 mm - no CT follow-up required * nodule size >=6 mm - follow-up CT at 3-6 months. If unchanged, and solid component remains <6 mm, then annual follow-up for 5 years Multiple subsolid nodules * nodule size <6 mm - follow-up CT at 3-6 months, consider further follow-up at 2 and 4 years if stable * nodule size >=6 mm - follow-up CT at 3-6 months, subsequent management based on the most suspicious nodule(s) ACT 112: Negative or not required by law. Electronically signed by: Vic Vásquez M.D. 10/15/2022 1:05 PM ECG Additional Comments: EKG reviewed with sinus tachycardia at 108 bpm with bilateral atrial enlargement, nonspecific T wave abnormality in inferior leads Code Status & VTE Plan VTE Prophylaxis Plan VTE Prophylaxis will be ordered: Yes Supervising Physician Co-Signing Physician Notes Patient was seen and examined independently. Chart reviewed. Case discussed with LANE. History of tacheostomy. Here with acute hypoxic respiratory failure from parainfluenza infection. Noted to have mucous plugging, tracheitis vs possibly tracheal stenosis seen on CT. Pulmonology consulted to help with management with her respiratory treatment. Continue with cefepime pending sputum culture (ordered but not collected) and blood culture. (4) Hypertension Hypertension type: unspecified Qualified Code(s): I10 - Essential (primary) hypertension
[2022-10-15] MEDS ORDERED: carvediloL 25 MG TAB PO ONE (14:20)
[2022-10-15] MEDS ORDERED: amLODIPine BESYLATE 5 MG TAB PO ONE (14:20)
[2022-10-15] MEDS ORDERED: hydrALAZINE HCL 25 MG TAB PO STA (14:20)
--- NOTE | 2022-10-15 14:43 | Pulmonary Consultation ---
Date of Consultation October 15, 2022 Assessment & Plan (1) Acute and chronic respiratory failure with hypoxia: (2) Status post tracheostomy: (3) URI (upper respiratory infection): (4) COPD with acute exacerbation: (5) Acute bronchitis: (6) Multiple pulmonary nodules: Plan CT chest 10/15/2022 personally reviewed: Centrilobular emphysema appreciated bilaterally Small bilateral nodules in the upper lobe Tracheostomy in place Mucus appreciated in the trachea as well as right and left main bronchus No significant mediastinal lymphadenopathy -- Acute hypoxic respiratory failure Likely secondary to parainfluenza infection leading to Acute bronchitis and COPD exacerbation Procalcitonin 0.18 Respiratory bio fire parainfluenza positive, negative for COVID, RSV influenza A/B Continue with bronchodilators -- COPD Plan as above --Pulmonary nodules Bilateral upper lobes Continue to monitor given the history of laryngeal CA Recommend repeating CT chest in 6 to 8 months --History of laryngeal CA S/p total laryngectomy 2006 Plan: Start hypertonic saline nebulized along with Mucinex We will start the patient on Brovana and budesonide while she is in the hospital Start patient on chest vest Solu-Medrol 40 mg on a daily basis Continue with antibiotics Please note the above document was generated using voice recognition software. It may contain grammatical, syntax or spelling errors.Any formal questions or concerns about the content, text or information contained within the body of this dictation should be directly addressed to the provider for clarification. History of Present Illness History of Present Illness 66-year-old female present to the hospital with complaints of worsening shortness of breath Past medical history: Throat cancer s/p L ectomy in 2006, pancreatic cancer s/p Whipple procedure, type 2 diabetes, COPD Pulmonary consulted for abnormal chest CT At the time of examination patient was actively wheezing, she was on trach collar. She is usually not on any oxygen at home. She stated that since last 3-4 days she has been having more coughing and difficulty bringing up the phlegm Subjective fever not measured. Denies any hemoptysis No nausea or vomiting No dysuria. Patient has internal ileostomy so she always has loose stools. They have not changed in consistency or frequency. No night sweats, no unintentional weight loss Denies any headache, no blurry vision Social history: Used to be heavy smoker, quit in 2006 Allergies Allergy/AdvReac Type Severity Reaction Status Date / Time NSAIDS (Non-Steroidal Allergy Unknown Ulcer & Verified 07/30/22 19:02 Anti-Inflamma anemia zolpidem [From Ambien] Allergy Unknown pysch Verified 07/30/22 19:02 complications, dizzy hydrochlorothiazide AdvReac Acute Verified 07/30/22 19:02 kidney injury rosuvastatin [From Crestor] AdvReac Elavated Verified 07/30/22 19:02 liver function test Home Medications Medication Instructions Recorded Confirmed Type cyanocobalamin (vitamin B-12) 500 500 mcg sublingual BID 08/09/19 10/15/22 History mcg disintegrating tablet,sublingual losartan 100 mg tablet (Cozaar) 100 mg PO QAM 08/09/19 10/15/22 History pantoprazole 40 mg tablet,delayed 40 mg PO QAM 08/09/19 10/15/22 History release (Protonix) triamcinolone acetonide 0.1 % 1 appln topical BID 08/09/19 10/15/22 History topical cream repaglinide 1 mg tablet 1 mg PO BID 11/27/21 10/15/22 History albuterol sulfate 2.5 mg/3 mL 2.5 mg inhalation DIRECTED 07/30/22 10/15/22 History (0.083 %) solution for nebulization amlodipine 10 mg tablet 10 mg PO DAILY 07/30/22 10/15/22 History blood-glucose sensor (Dexcom G6 07/30/22 10/15/22 History Sensor device) carvedilol 25 mg tablet 25 mg PO BID 07/30/22 10/15/22 History clobetasol 0.05 % topical ointment 1 applic topical BID PRN flare ups 07/30/22 10/15/22 History (Temovate) levothyroxine 200 mcg tablet 200 mcg PO DAILY 07/30/22 10/15/22 History metformin 1,000 mg tablet 1,000 mg PO BID 07/30/22 10/15/22 History cyclobenzaprine 10 mg tablet 10 mg PO HS PRN Muscle Spasm 10/15/22 10/15/22 History sucralfate 1 gram tablet 1 g PO QID 10/15/22 10/15/22 History tiotropium bromide 2.5 2 inh inhalation QAM 10/15/22 10/15/22 History mcg/actuation mist for inhalation (Spiriva Respimat) Patient History Medical History Acute exacerbation of chronic obstructive pulmonary disease (COPD) Adrenal adenoma Has upcoming appt with endo PCP did work up prior (cortisol normal, DHEA hormone normal, 24 hour catecholamines WNL, plasma renin low (could be due to BP meds per PCP)) Asthma Asthma exacerbation Chronic obstructive pulmonary disease CKD (chronic kidney disease), stage III Coagulopathy Diabetes DVT (deep venous thrombosis) WITH SURGERY TRACH 2004-WAS ON BLOOD THINNER FOR A PERIOD OF TIME-THEN OFF-NO ISSUES SINCE History of colon cancer Dx'ed in 2002 (has familial adenomatous polyposis) S/p ileostomy and then J pouch procedure No chemo or XRT History of pancreatic cancer 2016 S/p Whipple procedure No chemo or XRT History of throat cancer Dxed 2006- s/p laryngectomy with trach placement No chemo or XRT History of thyroid cancer Papillary thyroid carcinoma (with throat cancer per patient) 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 S/p stomaplasty (11/2020) and tracheostoma revision (05/2021) S/p thyroidectomy No chemo or XRT Hyperlipidemia Hypertension Hypertensive urgency Hypothyroidism associated with surgical procedure Hypoxia Murmur, cardiac F/U DR DEE ACEVEDO No murmur per routine 06/2021 cardio visit SOB (shortness of breath) on exertion 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 No current issues Surgical History History of bowel resection WITH J POUCH History of colonoscopy History of esophagogastroduodenoscopy (EGD) History of radical neck dissection WITH TRACHEOSTOMY-2004 History of thyroidectomy History of Whipple procedure X 2-LAST 2012 Family History Family/Other Heart disease Lung disease Cancer Father Family hx of colon cancer Sister Family hx of colon cancer Social History Smoking Status: Former smoker Tobacco Type: Cigarettes Second Hand Exposure: Yes; Hx Alcohol Use: No Hx Substance Use: No Preferred Language: Setswana Communication Ability: Effective Communication Ability Comment: Patient uses a Cervox since she has 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 Stereoptic Projection Topographer Required: No Beliefs That Will Affect Care: None marital status: Current Living Situation: Alone current occupational status: disabled Feels Safe at Home: Yes Safety Concerns: Feels Safe At This Time Assistive Devices: None Review of Systems Review of Systems: All systems reviewed & are unremarkable except as noted in HPI & below Physical Exam Physical Exam: Constitutional: No acute distress HEENT: EOMI, PERRLA, tracheostomy in place Respiratory system: Decreased air entry bilaterally, mild expiratory wheeze, positive rhonchi, mild crackles bilateral lower lobes CVS: S1-S2 positive, no murmurs or gallops Abdomen: Soft, nontender, nondistended, positive bowel sounds x4 Extremities: +2 pulses bilaterally radialis/ dorsalis pedis, no cyanosis, no edema Neuro: Awake alert oriented x3 Psych: Normal mood and affect G/U: No Madsen Skin: no rashes, warm and dry Lymphatic: no cervical or axillary lymphadenopathy Results & Data Results & Data Vital Signs (Past 12 Hours) Vital Signs Temp Pulse Pulse Resp BP BP Pulse Ox 10/15/22 13:23 103 H 10/15/22 11:34 100 10/15/22 10:41 107 H 30 H 176/96 H 97 10/15/22 09:20 98 10/15/22 09:07 107 H 10/15/22 09:01 86 L 10/15/22 09:01 10/15/22 09:01 37.1 C 107 H 30 H 186/108 H 98 10/15/22 09:01 37.1 C 107 H 30 H 186/108 H 98 O2 Del Method O2 Flow Rate 10/15/22 13:23 10/15/22 11:34 Trach Collar 6 10/15/22 10:41 Trach Collar 5 10/15/22 09:20 Trach Collar 5 10/15/22 09:07 10/15/22 09:01 Trach Collar 0 10/15/22 09:01 Trach Collar 5 10/15/22 09:01 Trach Collar 5 10/15/22 09:01 Trach Collar 5 Laboratory Results 10/15/22 08:59 10/15/22 08:59 PG Care Time/CCT Total # of Minutes Spent Total Time Spent with Patient: Total time spent is greater than 50% in coordination of care (as documented) at patient's floor/unit and/or counseling patient: Coding Level of Care Code 90077 INT INP/OBS CARE MIN Diagnoses Acute and chronic respiratory failure with hypoxia J96.21 Status post tracheostomy Z93.0 URI (upper respiratory infection) J06.9 COPD with acute exacerbation J44.1 Acute bronchitis J20.9 Multiple pulmonary nodules R91.8
[2022-10-15] MEDS ORDERED: TRIAMCINOLONE ACET 0.1% CR 15 GM TUBE TOP PRN (15:34)
[2022-10-15] MEDS ORDERED: CLOBETASOL PROPIONATE 0.05% OINT 15 GM TUBE EXT PRN (15:34)
[2022-10-15] MEDS ORDERED: GLUCOSE 10 TAB/TUBE PO PRN (15:41)
[2022-10-15] MEDS ORDERED: GLUCOSE 40% GEL 15 GM TUBE PO PRN (15:41)
[2022-10-15] MEDS ORDERED: DEXTROSE 50% 50 ML SYRINGE IV PRN (15:41)
[2022-10-15] MEDS ORDERED: GLUCAGON FOR INJ 1 MG VIAL SQ PRN (15:41)
[2022-10-15] MEDS ORDERED: CARBOHYDRATES FOR HYPOGLYCEMIA PO PRN (15:41)
[2022-10-15 15:51] LABS: Appearance Urine Clear (Clear); Bacteria Urine Automated Negative (Negative); Bilirubin Urine Negative (Negative); Blood Urine Trace (Negative); Color Urine Yellow; Glucose Urine UA Negative (Negative); Ketones Urine Trace (Negative); Leukocyte Esterase Urine Negative (Negative); Nitrite Urine Negative (Negative); Protein Urine 3+ (Negative); RBC Urine Automated 0-4 /hpf (0-4); Specific Gravity Urine 1.037 (1.000-1.030); Urobilinogen Urine Negative (Negative); pH Urine 5.5 (4.5-7.5)
[2022-10-15] MEDS ORDERED: LOSARTAN POTASSIUM 50 MG TAB PO ONE (16:15)
[2022-10-15] MEDS ORDERED: ONDANSETRON INJ 2 MG/ML 2 ML VIAL IV PRN (16:20)
[2022-10-15] MEDS ORDERED: POLYETHYLENE (MIRALAX) 17 GM PACK PO PRN (16:20)
[2022-10-15] MEDS ORDERED: ACETAMINOPHEN 325 MG TAB PO PRN (16:20)
[2022-10-15] MEDS ORDERED: MAGNESIUM SULFATE / D5W 1 GM/100 ML BAG IV ONE (16:24)
[2022-10-15] MEDS ORDERED: POTASSIUM CHLORIDE CRTAB 20 MEQ TABCR PO STA (16:24)
[2022-10-15] MEDS: INSULIN ASPART PER UNIT CHARGE SC SCH ×2 (17:30→20:24)
[2022-10-15] MEDS: ENOXAPARIN INJ 40 MG/0.4 ML SYR SQ SCH (17:31)
[2022-10-15] MEDS ORDERED: POTASSIUM CHLORIDE 20 MEQ/15 ML UDC PO STA (17:32)
[2022-10-15] MEDS: SUCRALFATE 1 GM TAB PO SCH ×2 (17:32→20:02)
[2022-10-15] MEDS ORDERED: LABETALOL HCL IV 5 MG/ML 20ML IV PRN (18:37)
[2022-10-15] MEDS: methylPREDNISolone 40 MG in SYRINGE 0 ML IV SCH (19:08)
[2022-10-15] MEDS: CYCLOBENZAPRINE HCL 10 MG TAB PO PRN (19:17)
[2022-10-15] MEDS: BUDESONIDE 0.25 MG/2 ML VIAL (PULMICORT) NEB SCH (19:26)
[2022-10-15] MEDS: FORMOTEROL 20 MCG/2 ML VIAL NEB SCH (19:26)
[2022-10-15] MEDS: SODIUM CHLOR 7% 4 ML NEB NEB SCH (19:35)
[2022-10-15] MEDS: carvediloL 25 MG TAB PO SCH (20:02)
[2022-10-15] MEDS: guaiFENesin 600 MG TABCR PO SCH (20:02)
[2022-10-15] MEDS: TRIAMCINOLONE ACET 0.1% CR 15 GM TUBE TOP SCH (20:03)
[2022-10-15] MEDS: CYANOCOBALAMIN (B-12) 500 MCG TABLET PO SCH (20:03)
[2022-10-15] MEDS: CEFEPIME 2,000 MG in SYRINGE 0 ML IV SCH (20:29)
[2022-10-16] MEDS: CEFEPIME 2,000 MG in SYRINGE 0 ML IV SCH ×3 (06:04→21:32)
[2022-10-16] MEDS: LEVOTHYROXINE SODIUM 200 MCG TABLET PO SCH (06:04)
[2022-10-16 06:35] LABS: Hematocrit (blood only) 41.7 % (37.0-47.0); Hemoglobin 14.6 g/dl (12.0-16.0); Mean Corpuscular Volume 79.9 fL (80.0-100.0); Mean Platelet Volume 10.1 fL (9.4-12.4); Platelet Count 278 K/uL (130-400); RDW Coefficient of Variation 13.3 % (11.5-14.5); RDW Standard Deviation 38.9 fL (36.4-46.3); Red Blood Count 5.22 M/uL (4.20-5.40); White Blood Count 7.09 K/ul (4.8-10.8)
[2022-10-16 06:38] LABS: BUN Creatinine Ratio 15.8 (10-20); Calcium 7.5 mg/dl (8.6-10.3); Creatinine Clr Calc Pharmacy 77.4 ml/min; Est GFR (African American) 95.4 ml/min; Est GFR (Non-African American) 82.3 ml/min; Magnesium 1.7 mg/dl (1.7-2.4); Potassium 3.2 mmol/L (3.5-5.1)
[2022-10-16] MEDS: SODIUM CHLOR 7% 4 ML NEB NEB SCH ×2 (07:20→19:57)
[2022-10-16] MEDS: FORMOTEROL 20 MCG/2 ML VIAL NEB SCH ×2 (07:36→19:57)
[2022-10-16] MEDS: BUDESONIDE 0.25 MG/2 ML VIAL (PULMICORT) NEB SCH ×2 (07:36→19:57)
--- NOTE | 2022-10-16 08:55 | Hospitalist Progress Note ---
Date of Service October 16, 2022 Assessment & Plan (1) URI (upper respiratory infection): (2) Chronic obstructive pulmonary disease: (3) Status post tracheostomy: (4) Hypertension: (5) History of thyroid cancer: (6) History of pancreatic cancer: (7) Acute and chronic respiratory failure with hypoxia: Plan This is a 66 yo F with history of thyroid/throat cancer s/p laryngectomy with tracheostomy, pancreatic cancer s/p Whipple procedure, type 2 diabetes, COPD, DVT status post surgical procedure, hypertension, hyperlipidemia and other medical problems listed below who presents with shortness of breath starting yesterday afternoon found to have acute hypoxic respiratory failure and URI. Acute hypoxic respiratory failure Parainfluenza 3 virus S/p trach Hypoxic in 80s initially, dropped to 70s with exertion. Afebrile, no leukocytosis. Parainfluenza 3 detected on PCR Sputum cultx - pending Chest CTA with no evidence of pulmonary embolus, correlate clinically for evidence of nonspecific tracheitis possible tracheal stenosis. Intraluminal debris noted in the trachea and central airways and mucous plugging in lower airways Continue supplemental O2, nebs, mucinex. Given empiric cefepime in ED with blood and sputum cultures pending Pulmonary medicine consulted - Continue with hypertonic saline nebulized along with Mucinex and chest vest therapy Continue with Solu-Medrol 40 mg daily. Can transition to prednisone 40 mg as of tomorrow and titrated off over the next 5 days Continue with antibiotics for total of 5 days Diarrhea Present with virus. Added stool cx, c diff HTN Continue amlodipine, carvedilol and losartan Hypokalemia Hypomagnesemia Replaced, monitor in AM Psoriasis Cont clobetasol topically BID DM II A1c 7.5 from September 2022 Hold home agents SSI while in-patient BSG AC HS DVT Ppx: SQ lovenox Code status: FULL PCP: Dr. Castro Dispo: PCU Admission and Anticipated Discharge Date Admission Date: October 15, 2022 Subjective Pt seen in follow up of acute hypoxic resp. failure, parainfluenza positive, hx of trach Laying in bed in no acute distress Reports feeling much better today Reports breathing easier, still has some cough but less, also reports some mucus production Pulmonary medicine following Review of Systems Review of Systems: All systems reviewed & are unremarkable except as noted in Subjective Physical Exam Physical Exam: General Appearance:WD/WN, in NAD, able to communicate with vocal prosthesis device Head: normocephalic, atraumatic Eyes:normal inspection, PERRL, EOMI. ENT: external ear and nose normal, oropharynx normal Neck: + trach with oxygen collar Respiratory: + minimal rhonchi, no wheezing Cardiovascular: rrr Chest: normal inspection of chest Abdomen/GI: normal bowel sounds, soft, nontender Extremities/Musculoskeletal:extremities motor strength 5/5 Neurologic: PERRL, EOMI, no face palsy, moves all extremities Psychiatric:A+Ox3, euthymic affect Skin: no rashes, normal color, warm/dry Results & Data Results & Data Vital Signs (Past 12 Hours) Vital Signs Temp Pulse Pulse Resp BP Pulse Ox O2 Del Method 10/16/22 07:23 82 18 92 Room Air 10/16/22 07:12 36.9 C 103 H 18 164/93 H 92 Trach Collar 10/16/22 06:30 Trach Collar 10/16/22 03:57 37.0 C 85 18 173/91 H 100 Trach Collar 10/15/22 23:57 82 10/15/22 22:01 37.1 C 85 18 153/85 H 91 Trach Collar O2 Flow Rate FiO2 10/16/22 07:23 10/16/22 07:12 8 10/16/22 06:30 8 70 10/16/22 03:57 10/15/22 23:57 10/15/22 22:01 Laboratory Results 10/16/22 10/16/22 10/16/22 Range/Units 07:17 06:06 06:06 WBC 7.09 (4.8-10.8) K/ul RBC 5.22 (4.20-5.40) M/uL Hgb 14.6 (12.0-16.0) g/dl Hct 41.7 (37.0-47.0) % MCV 79.9 L (80.0-100.0) fL MCH 28.0 (25.0-34.0) pg MCHC 35.0 (32.0-36.0) g/dL RDW Std Deviation 38.9 (36.4-46.3) fL RDW Coeff of Monika 13.3 (11.5-14.5) % Plt Count 278 (130-400) K/uL MPV 10.1 (9.4-12.4) fL Immature Gran % (Auto) % Neut % (Auto) % Lymph % (Auto) % Schley % (Auto) % Eos % (Auto) % Baso % (Auto) % Neut # (Auto) (1.40-6.50) K/uL Lymph # (Auto) (1.2-3.4) K/uL Schley # (Auto) (0.11-0.59) K/uL Eos # (Auto) (0-0.50) K/uL Baso # (Auto) (0-0.2) K/uL Immature Gran # (Auto) (0.01-0.20) K/uL Sodium 139 (136-145) mmol/L Potassium 3.2 L (3.5-5.1) mmol/L Chloride 101 (98-107) mmol/L Carbon Dioxide 26 (21-32) mmol/L Anion Gap 12 H (3-11) BUN 12 (6-23) mg/dl Creatinine 0.76 (0.6-1.2) mg/dl Est Cr Clr Drug Dosing 77.4 ml/min Est GFR ( Amer) 95.4 ml/min Est GFR (Non-Af Amer) 82.3 ml/min BUN/Creatinine Ratio 15.8 (10-20) Glucose 162 H (70-99(Fasting)) mg/dl POC Glucose 152 H (70-99) mg/dl Lactate (0.4-2.0) mmol/L Calcium 7.5 L (8.6-10.3) mg/dl Ionized Calcium (1.12-1.32) mmol/L Magnesium 1.7 (1.7-2.4) mg/dl Total Bilirubin (0.2-1.0) mg/dl Direct Bilirubin (0-0.2) mg/dl AST (13-39) U/L ALT (7-52) U/L Alkaline Phosphatase (34-104) U/L Troponin I High Sens (0-14) pg/ml Total Protein (6.0-8.3) gm/dl Albumin (3.4-5.0) gm/dl Procalcitonin (0-0.5) ng/ml Urine Color Urine Appearance (Clear) Urine pH (4.5-7.5) Ur Specific [place] (1.000-1.030) Urine Protein (Negative) Urine Glucose (UA) (Negative) Urine Ketones (Negative) Urine Blood (Negative) Urine Nitrite (Negative) Urine Bilirubin (Negative) Urine Urobilinogen (Negative) Ur Leukocyte Esterase (Negative) Urine WBC (Auto) (0-5) /hpf Urine RBC (Auto) (0-4) /hpf U Hyaline Cast (Auto) (0-5) /lpf U Epithel Cells (Auto) (0-5) /lpf Urine Bacteria (Auto) (Negative) Adenovirus (PCR) (NotDetected) B. pertussis DNA (PCR) (NotDetected) B.parapertussis DNA PCR (NotDetected) C. pneumoniae DNA (PCR) (NotDetected) Coronavirus OC43 (PCR) (NotDetected) Coronavirus HKU1 (PCR) (NotDetected) Coronavirus 229E (PCR) (NotDetected) SARS-CoV-2 (PCR) (NotDetected) Coronavirus NL63 (PCR) (NotDetected) Human Metapneumovir PCR (NotDetected) Influenza Type A (PCR) (NotDetected) Influenza Type B (PCR) (NotDetected) M. pneumoniae (PCR) (NotDetected) Parainfluenza 1 (PCR) (NotDetected) Parainfluenza 2 (PCR) (NotDetected) Parainfluenza 3 (PCR) (NotDetected) Parainfluenza 4 (PCR) (NotDetected) RSV (PCR) (NotDetected) Entero/Rhino (PCR) (NotDetected) 10/16/22 10/15/22 10/15/22 Range/Units 06:06 20:19 16:24 WBC (4.8-10.8) K/ul RBC (4.20-5.40) M/uL Hgb (12.0-16.0) g/dl Hct (37.0-47.0) % MCV (80.0-100.0) fL MCH (25.0-34.0) pg MCHC (32.0-36.0) g/dL RDW Std Deviation (36.4-46.3) fL RDW Coeff of Monika (11.5-14.5) % Plt Count (130-400) K/uL MPV (9.4-12.4) fL Immature Gran % (Auto) % Neut % (Auto) % Lymph % (Auto) % Schley % (Auto) % Eos % (Auto) % Baso % (Auto) % Neut # (Auto) (1.40-6.50) K/uL Lymph # (Auto) (1.2-3.4) K/uL Schley # (Auto) (0.11-0.59) K/uL Eos # (Auto) (0-0.50) K/uL Baso # (Auto) (0-0.2) K/uL Immature Gran # (Auto) (0.01-0.20) K/uL Sodium (136-145) mmol/L Potassium (3.5-5.1) mmol/L Chloride (98-107) mmol/L Carbon Dioxide (21-32) mmol/L Anion Gap (3-11) BUN (6-23) mg/dl Creatinine (0.6-1.2) mg/dl Est Cr Clr Drug Dosing ml/min Est GFR ( Amer) ml/min Est GFR (Non-Af Amer) ml/min BUN/Creatinine Ratio (10-20) Glucose (70-99(Fasting)) mg/dl POC Glucose 172 H 174 H (70-99) mg/dl Lactate (0.4-2.0) mmol/L Calcium (8.6-10.3) mg/dl Ionized Calcium 0.88 L (1.12-1.32) mmol/L Magnesium (1.7-2.4) mg/dl Total Bilirubin (0.2-1.0) mg/dl Direct Bilirubin (0-0.2) mg/dl AST (13-39) U/L ALT (7-52) U/L Alkaline Phosphatase (34-104) U/L Troponin I High Sens (0-14) pg/ml Total Protein (6.0-8.3) gm/dl Albumin (3.4-5.0) gm/dl Procalcitonin (0-0.5) ng/ml Urine Color Urine Appearance (Clear) Urine pH (4.5-7.5) Ur Specific [place] (1.000-1.030) Urine Protein (Negative) Urine Glucose (UA) (Negative) Urine Ketones (Negative) Urine Blood (Negative) Urine Nitrite (Negative) Urine Bilirubin (Negative) Urine Urobilinogen (Negative) Ur Leukocyte Esterase (Negative) Urine WBC (Auto) (0-5) /hpf Urine RBC (Auto) (0-4) /hpf U Hyaline Cast (Auto) (0-5) /lpf U Epithel Cells (Auto) (0-5) /lpf Urine Bacteria (Auto) (Negative) Adenovirus (PCR) (NotDetected) B. pertussis DNA (PCR) (NotDetected) B.parapertussis DNA PCR (NotDetected) C. pneumoniae DNA (PCR) (NotDetected) Coronavirus OC43 (PCR) (NotDetected) Coronavirus HKU1 (PCR) (NotDetected) Coronavirus 229E (PCR) (NotDetected) SARS-CoV-2 (PCR) (NotDetected) Coronavirus NL63 (PCR) (NotDetected) Human Metapneumovir PCR (NotDetected) Influenza Type A (PCR) (NotDetected) Influenza Type B (PCR) (NotDetected) M. pneumoniae (PCR) (NotDetected) Parainfluenza 1 (PCR) (NotDetected) Parainfluenza 2 (PCR) (NotDetected) Parainfluenza 3 (PCR) (NotDetected) Parainfluenza 4 (PCR) (NotDetected) RSV (PCR) (NotDetected) Entero/Rhino (PCR) (NotDetected) 10/15/22 10/15/22 10/15/22 Range/Units 14:08 09:42 09:34 WBC (4.8-10.8) K/ul RBC (4.20-5.40) M/uL Hgb (12.0-16.0) g/dl Hct (37.0-47.0) % MCV (80.0-100.0) fL MCH (25.0-34.0) pg MCHC (32.0-36.0) g/dL RDW Std Deviation (36.4-46.3) fL RDW Coeff of Monika (11.5-14.5) % Plt Count (130-400) K/uL MPV (9.4-12.4) fL Immature Gran % (Auto) % Neut % (Auto) % Lymph % (Auto) % Schley % (Auto) % Eos % (Auto) % Baso % (Auto) % Neut # (Auto) (1.40-6.50) K/uL Lymph # (Auto) (1.2-3.4) K/uL Schley # (Auto) (0.11-0.59) K/uL Eos # (Auto) (0-0.50) K/uL Baso # (Auto) (0-0.2) K/uL Immature Gran # (Auto) (0.01-0.20) K/uL Sodium (136-145) mmol/L Potassium (3.5-5.1) mmol/L Chloride (98-107) mmol/L Carbon Dioxide (21-32) mmol/L Anion Gap (3-11) BUN (6-23) mg/dl Creatinine (0.6-1.2) mg/dl Est Cr Clr Drug Dosing ml/min Est GFR ( Amer) ml/min Est GFR (Non-Af Amer) ml/min BUN/Creatinine Ratio (10-20) Glucose (70-99(Fasting)) mg/dl POC Glucose (70-99) mg/dl Lactate 0.9 (0.4-2.0) mmol/L Calcium (8.6-10.3) mg/dl Ionized Calcium (1.12-1.32) mmol/L Magnesium (1.7-2.4) mg/dl Total Bilirubin (0.2-1.0) mg/dl Direct Bilirubin (0-0.2) mg/dl AST (13-39) U/L ALT (7-52) U/L Alkaline Phosphatase (34-104) U/L Troponin I High Sens (0-14) pg/ml Total Protein (6.0-8.3) gm/dl Albumin (3.4-5.0) gm/dl Procalcitonin (0-0.5) ng/ml Urine Color Yellow Urine Appearance Clear (Clear) Urine pH 5.5 (4.5-7.5) Ur Specific [place] 1.037 H (1.000-1.030) Urine Protein 3+ H (Negative) Urine Glucose (UA) Negative (Negative) Urine Ketones Trace H (Negative) Urine Blood Trace H (Negative) Urine Nitrite Negative (Negative) Urine Bilirubin Negative (Negative) Urine Urobilinogen Negative (Negative) Ur Leukocyte Esterase Negative (Negative) Urine WBC (Auto) 1-5 (0-5) /hpf Urine RBC (Auto) 0-4 (0-4) /hpf U Hyaline Cast (Auto) 1-5 (0-5) /lpf U Epithel Cells (Auto) 10-20 H (0-5) /lpf Urine Bacteria (Auto) Negative (Negative) Adenovirus (PCR) Not Detected (NotDetected) B. pertussis DNA (PCR) Not Detected (NotDetected) B.parapertussis DNA PCR Not Detected (NotDetected) C. pneumoniae DNA (PCR) Not Detected (NotDetected) Coronavirus OC43 (PCR) Not Detected (NotDetected) Coronavirus HKU1 (PCR) Not Detected (NotDetected) Coronavirus 229E (PCR) Not Detected (NotDetected) SARS-CoV-2 (PCR) Not Detected (NotDetected) Coronavirus NL63 (PCR) Not Detected (NotDetected) Human Metapneumovir PCR Not Detected (NotDetected) Influenza Type A (PCR) Not Detected (NotDetected) Influenza Type B (PCR) Not Detected (NotDetected) M. pneumoniae (PCR) Not Detected (NotDetected) Parainfluenza 1 (PCR) Not Detected (NotDetected) Parainfluenza 2 (PCR) Not Detected (NotDetected) Parainfluenza 3 (PCR) DETECTED A* (NotDetected) Parainfluenza 4 (PCR) Not Detected (NotDetected) RSV (PCR) Not Detected (NotDetected) Entero/Rhino (PCR) Not Detected (NotDetected) 10/15/22 10/15/22 10/15/22 Range/Units 08:59 08:59 08:59 WBC 8.05 (4.8-10.8) K/ul RBC 5.48 H (4.20-5.40) M/uL Hgb 15.5 (12.0-16.0) g/dl Hct 45.1 (37.0-47.0) % MCV 82.3 (80.0-100.0) fL MCH 28.3 (25.0-34.0) pg MCHC 34.4 (32.0-36.0) g/dL RDW Std Deviation 40.6 (36.4-46.3) fL RDW Coeff of Monika 13.6 (11.5-14.5) % Plt Count 310 (130-400) K/uL MPV 10.6 (9.4-12.4) fL Immature Gran % (Auto) 0.4 % Neut % (Auto) 69.9 % Lymph % (Auto) 16.0 % Schley % (Auto) 8.7 % Eos % (Auto) 4.0 % Baso % (Auto) 1.0 % Neut # (Auto) 5.63 (1.40-6.50) K/uL Lymph # (Auto) 1.29 (1.2-3.4) K/uL Schley # (Auto) 0.70 H (0.11-0.59) K/uL Eos # (Auto) 0.32 (0-0.50) K/uL Baso # (Auto) 0.08 (0-0.2) K/uL Immature Gran # (Auto) 0.03 (0.01-0.20) K/uL Sodium 141 (136-145) mmol/L Potassium 3.3 L (3.5-5.1) mmol/L Chloride 99 (98-107) mmol/L Carbon Dioxide 30 (21-32) mmol/L Anion Gap 12 H (3-11) BUN 12 (6-23) mg/dl Creatinine 0.94 (0.6-1.2) mg/dl Est Cr Clr Drug Dosing 62.6 ml/min Est GFR ( Amer) 73.8 ml/min Est GFR (Non-Af Amer) 63.7 ml/min BUN/Creatinine Ratio 12.8 (10-20) Glucose 183 H (70-99(Fasting)) mg/dl POC Glucose (70-99) mg/dl Lactate (0.4-2.0) mmol/L Calcium 7.9 L (8.6-10.3) mg/dl Ionized Calcium (1.12-1.32) mmol/L Magnesium 1.4 L (1.7-2.4) mg/dl Total Bilirubin 0.6 (0.2-1.0) mg/dl Direct Bilirubin 0.2 (0-0.2) mg/dl AST 21 (13-39) U/L ALT 21 (7-52) U/L Alkaline Phosphatase 123 H (34-104) U/L Troponin I High Sens 8.0 (0-14) pg/ml Total Protein 7.7 (6.0-8.3) gm/dl Albumin 4.2 (3.4-5.0) gm/dl Procalcitonin 0.18 (0-0.5) ng/ml Urine Color Urine Appearance (Clear) Urine pH (4.5-7.5) Ur Specific [place] (1.000-1.030) Urine Protein (Negative) Urine Glucose (UA) (Negative) Urine Ketones (Negative) Urine Blood (Negative) Urine Nitrite (Negative) Urine Bilirubin (Negative) Urine Urobilinogen (Negative) Ur Leukocyte Esterase (Negative) Urine WBC (Auto) (0-5) /hpf Urine RBC (Auto) (0-4) /hpf U Hyaline Cast (Auto) (0-5) /lpf U Epithel Cells (Auto) (0-5) /lpf Urine Bacteria (Auto) (Negative) Adenovirus (PCR) (NotDetected) B. pertussis DNA (PCR) (NotDetected) B.parapertussis DNA PCR (NotDetected) C. pneumoniae DNA (PCR) (NotDetected) Coronavirus OC43 (PCR) (NotDetected) Coronavirus HKU1 (PCR) (NotDetected) Coronavirus 229E (PCR) (NotDetected) SARS-CoV-2 (PCR) (NotDetected) Coronavirus NL63 (PCR) (NotDetected) Human Metapneumovir PCR (NotDetected) Influenza Type A (PCR) (NotDetected) Influenza Type B (PCR) (NotDetected) M. pneumoniae (PCR) (NotDetected) Parainfluenza 1 (PCR) (NotDetected) Parainfluenza 2 (PCR) (NotDetected) Parainfluenza 3 (PCR) (NotDetected) Parainfluenza 4 (PCR) (NotDetected) RSV (PCR) (NotDetected) Entero/Rhino (PCR) (NotDetected) Medications Administered Current Inpatient Medications Acetaminophen (Acetaminophen 325 Mg Tab) 650 mg PO Q4H PRN PRN Reason: Pain or Fever Stop: 11/14/22 16:19 Last Admin: 10/15/22 17:41 Dose: 650 mg Amlodipine Besylate (Amlodipine Besylate 5 Mg Tab) 10 mg PO DAILY [facility] Stop: 11/15/22 08:59 Budesonide (Budesonide 0.25 Mg/2 Ml Vial (Pulmicort)) 0.25 mg NEB BIDR [facility] Stop: 11/14/22 18:59 Last Admin: 10/16/22 07:36 Dose: 0.25 mg Carvedilol (Carvedilol 25 Mg Tab) 25 mg PO BID [facility] Stop: 11/14/22 20:59 Last Admin: 10/15/22 20:02 Dose: 25 mg Clobetasol Propionate (Clobetasol Propionate 0.05% Oint 15 Gm Tube) 1 appln EXT BID PRN PRN Reason: flare ups Stop: 11/14/22 15:33 Cyanocobalamin (Cyanocobalamin (B-12) 500 Mcg Tablet) 500 mcg PO BID [facility] Stop: 11/14/22 20:59 Last Admin: 10/15/22 20:03 Dose: 500 mcg Cyclobenzaprine HCl (Cyclobenzaprine Hcl 10 Mg Tab) 10 mg PO HS PRN PRN Reason: Muscle Spasm Stop: 11/14/22 15:33 Last Admin: 10/15/22 19:17 Dose: 10 mg Dextrose (Dextrose 50% 50 Ml Syringe) 25 - 50 ml IV UD PRN; Protocol PRN Reason: Hypoglycemia Protocol Stop: 11/14/22 15:40 Enoxaparin Sodium (Enoxaparin Inj 40 Mg/0.4 Ml Syr) 40 mg SQ Q24H [facility] Stop: 11/14/22 16:59 Last Admin: 10/15/22 17:31 Dose: 40 mg Formoterol Fumarate (Formoterol 20 Mcg/2 Ml Vial) 20 mcg NEB BIDR [facility] Stop: 11/14/22 18:59 Last Admin: 10/16/22 07:36 Dose: 20 mcg Glucagon (Glucagon For Inj 1 Mg Vial) 1 mg SQ UD PRN; Protocol PRN Reason: Hypoglycemia Protocol Stop: 11/14/22 15:40 Glucose (Glucose 10 Tab/Tube) 4 - 8 tab PO UD PRN; Protocol PRN Reason: Hypoglycemia Treatment Stop: 11/14/22 15:40 Glucose (Glucose 40% Gel 15 Gm Tube) 15 - 30 gm PO UD PRN; Protocol PRN Reason: Hypoglycemia Protocol Stop: 11/14/22 15:40 Guaifenesin (Guaifenesin 600 Mg Tabcr) 1,200 mg PO Q12 [facility] Stop: 11/14/22 20:59 Last Admin: 10/15/22 20:02 Dose: 1,200 mg Cefepime HCl 2,000 mg/ Syringe 20 mls @ 5 mls/min IV Q8 [facility]URA; Protocol Stop: 10/22/22 18:59 Last Admin: 10/16/22 06:04 Dose: 5 mls/min Methylprednisolone 40 mg/ (Syringe) 0.64 mls @ 1.5 mls/min IV DAILY [facility] Stop: 11/14/22 18:44 Last Admin: 10/15/22 19:08 Dose: 1.5 mls/min Insulin Aspart (Insulin Aspart Per Unit Charge) 0 units SC ACHS [facility] Stop: 11/14/22 16:29 Last Admin: 10/15/22 20:24 Dose: Not Given Labetalol HCl (Labetalol Hcl Iv 5 Mg/Ml 20ml) 10 mg IV Q6 PRN PRN Reason: for SBP above 180 Stop: 11/14/22 18:36 Levothyroxine Sodium (Levothyroxine Sodium 200 Mcg Tablet) 200 mcg PO DAILYBB [facility] Stop: 11/15/22 06:29 Last Admin: 10/16/22 06:04 Dose: 200 mcg Losartan Potassium (Losartan Potassium 50 Mg Tab) 100 mg PO QAM [facility] Stop: 11/15/22 08:59 Miscellaneous (Carbohydrates For Hypoglycemia ) 15 - 30 gm PO UD PRN PRN Reason: Hypoglycemia Protocol Stop: 11/14/22 15:40 Ondansetron HCl (Ondansetron Inj 2 Mg/Ml 2 Ml Vial) 4 mg IV Q6H PRN PRN Reason: Nausea Stop: 11/14/22 16:19 Pantoprazole Sodium (Pantoprazole 40 Mg Tab) 40 mg PO QAM [facility] Stop: 11/15/22 08:59 Polyethylene Glycol (Polyethylene (Miralax) 17 Gm Pack) 17 gm PO DAILY PRN PRN Reason: Constipation Stop: 11/14/22 16:19 Sodium Chloride (Sodium Chlor 7% 4 Ml Neb) 4 ml NEB BIDR [facility] Stop: 11/14/22 18:59 Last Admin: 10/16/22 07:20 Dose: 4 ml Sucralfate (Sucralfate 1 Gm Tab) 1 gm PO QID [facility] Stop: 11/14/22 16:59 Last Admin: 10/15/22 20:02 Dose: 1 gm Triamcinolone Acetonide (Triamcinolone Acet 0.1% Cr 15 Gm Tube) 1 appln TOP BID [facility] Stop: 11/14/22 20:59 Last Admin: 10/15/22 20:03 Dose: 1 appln (4) Hypertension Hypertension type: unspecified Qualified Code(s): I10 - Essential (primary) hypertension
[2022-10-16] MEDS ORDERED: MAGNESIUM SULFATE / D5W 1 GM/100 ML BAG IV ONE (08:56)
[2022-10-16] MEDS ORDERED: POTASSIUM CHLORIDE CRTAB 20 MEQ TABCR PO STA (08:56)
[2022-10-16] MEDS: amLODIPine BESYLATE 5 MG TAB PO SCH (09:22)
[2022-10-16] MEDS: carvediloL 25 MG TAB PO SCH ×2 (09:23→21:33)
[2022-10-16] MEDS: PANTOprazole 40 MG TAB PO SCH (09:23)
[2022-10-16] MEDS: guaiFENesin 600 MG TABCR PO SCH ×2 (09:23→21:35)
[2022-10-16] MEDS: LOSARTAN POTASSIUM 50 MG TAB PO SCH (09:23)
[2022-10-16] MEDS: SUCRALFATE 1 GM TAB PO SCH ×4 (09:24→21:32)
[2022-10-16] MEDS: CYANOCOBALAMIN (B-12) 500 MCG TABLET PO SCH ×2 (09:24→21:34)
[2022-10-16] MEDS: TRIAMCINOLONE ACET 0.1% CR 15 GM TUBE TOP SCH ×2 (09:25→21:33)
[2022-10-16] MEDS: INSULIN ASPART PER UNIT CHARGE SC SCH ×4 (09:25→21:15)
[2022-10-16] MEDS: methylPREDNISolone 40 MG in SYRINGE 0 ML IV SCH (09:26)
--- NOTE | 2022-10-16 12:07 | Pulmonology Progress Note ---
Date of Service October 16, 2022 Assessment & Plan (1) Acute and chronic respiratory failure with hypoxia: (2) Status post tracheostomy: (3) URI (upper respiratory infection): (4) COPD with acute exacerbation: (5) Acute bronchitis: (6) Multiple pulmonary nodules: Plan CT chest 10/15/2022 personally reviewed: Centrilobular emphysema appreciated bilaterally Small bilateral nodules in the upper lobe Tracheostomy in place Mucus appreciated in the trachea as well as right and left main bronchus No significant mediastinal lymphadenopathy -- Acute hypoxic respiratory failure Likely secondary to parainfluenza infection leading to Acute bronchitis and COPD exacerbation Procalcitonin 0.18 Respiratory bio fire parainfluenza positive, negative for COVID, RSV influenza A/B Continue with bronchodilators -- COPD Plan as above --Pulmonary nodules Bilateral upper lobes Continue to monitor given the history of laryngeal CA Recommend repeating CT chest in 6 to 8 months --History of laryngeal CA S/p total laryngectomy 2006 Plan: Continue with hypertonic saline nebulized along with Mucinex and chest vest therapy Continue with Solu-Medrol 40 mg daily. Can transition to prednisone 40 mg as of tomorrow and titrated off over the next 5 days Continue with antibiotics for total of 5 days Please note the above document was generated using voice recognition software. It may contain grammatical, syntax or spelling errors.Any formal questions or concerns about the content, text or information contained within the body of this dictation should be directly addressed to the provider for clarification. Admission and Anticipated Discharge Date Admission Date: October 15, 2022 Subjective Patient seen and examined at bedside. No acute distress, no adverse events overnight Patient states that she is feeling much better compared to when she came to the hospital She is bringing up phlegm which is mostly clear. Denies any headache, no nausea or vomiting Fair appetite Review of Systems Review of Systems: All systems reviewed & are unremarkable except as noted in Subjective Physical Exam Physical Exam: Constitutional: No acute distress HEENT: EOMI, PERRLA, tracheostomy opening in place Respiratory system: Decreased air entry bilaterally, no wheeze, minimal rhonchi, mild crackles bilateral lower lobes CVS: S1-S2 positive, no murmurs or gallops Abdomen: Soft, nontender, nondistended, positive bowel sounds x4 Extremities: +2 pulses bilaterally radialis/ dorsalis pedis, no cyanosis, no edema Neuro: Awake alert oriented x3 Psych: Normal mood and affect G/U: No Madsen Skin: no rashes, warm and dry Lymphatic: no cervical or axillary lymphadenopathy Results & Data Results & Data Vital Signs (Past 12 Hours) Vital Signs Temp Pulse Resp BP Pulse Ox O2 Del Method O2 Flow Rate 10/16/22 07:23 82 18 92 Room Air 10/16/22 07:12 36.9 C 103 H 18 164/93 H 92 Trach Collar 8 10/16/22 06:30 Trach Collar 8 10/16/22 03:57 37.0 C 85 18 173/91 H 100 Trach Collar FiO2 10/16/22 07:23 10/16/22 07:12 10/16/22 06:30 70 10/16/22 03:57 Laboratory Results 10/16/22 06:06 10/16/22 06:06 PG Care Time/CCT Total # of Minutes Spent Total Time Spent with Patient: Total time spent is greater than 50% in coordination of care (as documented) at patient's floor/unit and/or counseling patient: Coding Level of Care Code 41103 SUB INP/OBS CARE 3/50MIN Diagnoses Acute and chronic respiratory failure with hypoxia J96.21 Status post tracheostomy Z93.0 URI (upper respiratory infection) J06.9 COPD with acute exacerbation J44.1 Acute bronchitis J20.9 Multiple pulmonary nodules R91.8
[2022-10-16] MEDS: ADVANCED PROBIOTIC 1250 MG CAPSULE PO SCH (16:48)
[2022-10-16] MEDS: ENOXAPARIN INJ 40 MG/0.4 ML SYR SQ SCH (17:08)
--- NOTE | 2022-10-16 21:43 | Electrocardiogram Report ---
Test Reason : Blood Pressure : / mmHG Vent. Rate : 108 BPM Atrial Rate : 108 BPM P-R Int : 142 ms QRS Dur : 084 ms QT Int : 374 ms P-R-T Axes : 075 016 031 degrees QTc Int : 501 ms Poor data quality, interpretation may be adversely affected Sinus tachycardia Biatrial enlargement Nonspecific ST abnormality Prolonged QT Abnormal ECG When compared with ECG of 30-JUL-2022 12:56, QT has lengthened Confirmed by Ta Salas ([id number]) on 10/16/2022 9:43:07 PM Referred By: REFERRED SELF Confirmed By:aT Salas
[2022-10-17] MEDS: CEFEPIME 2,000 MG in SYRINGE 0 ML IV SCH ×3 (05:35→21:17)
[2022-10-17] MEDS: LEVOTHYROXINE SODIUM 200 MCG TABLET PO SCH (05:35)
[2022-10-17] MEDS: SODIUM CHLOR 7% 4 ML NEB NEB SCH ×2 (07:10→20:04)
[2022-10-17 07:13] LABS: Hemoglobin 14.8 g/dl (12.0-16.0); Mean Corpuscular Hemoglobin 28.1 pg (25.0-34.0); Mean Corpuscular Hgb Conc 34.4 g/dL (32.0-36.0); Mean Corpuscular Volume 81.6 fL (80.0-100.0); Mean Platelet Volume 10.5 fL (9.4-12.4); Platelet Count 318 K/uL (130-400); RDW Coefficient of Variation 13.4 % (11.5-14.5); RDW Standard Deviation 39.8 fL (36.4-46.3); Red Blood Count 5.27 M/uL (4.20-5.40); White Blood Count 9.85 K/ul (4.8-10.8)
[2022-10-17] MEDS: FORMOTEROL 20 MCG/2 ML VIAL NEB SCH ×2 (07:20→20:03)
[2022-10-17] MEDS: BUDESONIDE 0.25 MG/2 ML VIAL (PULMICORT) NEB SCH ×2 (07:21→20:03)
[2022-10-17 07:30] LABS: BUN Creatinine Ratio 19.4 (10-20); Calcium 7.9 mg/dl (8.6-10.3); Creatinine Clr Calc Pharmacy 60.9 ml/min; Est GFR (African American) 70.2 ml/min; Est GFR (Non-African American) 60.5 ml/min; Magnesium 1.8 mg/dl (1.7-2.4); Phosphorus 2.6 mg/dl (2.5-4.9); Potassium 3.6 mmol/L (3.5-5.1)
[2022-10-17] MEDS: INSULIN ASPART PER UNIT CHARGE SC SCH ×4 (08:16→21:04)
[2022-10-17] MEDS: ADVANCED PROBIOTIC 1250 MG CAPSULE PO SCH (08:18)
[2022-10-17] MEDS: CYANOCOBALAMIN (B-12) 500 MCG TABLET PO SCH ×2 (08:18→21:03)
[2022-10-17] MEDS: PANTOprazole 40 MG TAB PO SCH (08:18)
[2022-10-17] MEDS: amLODIPine BESYLATE 5 MG TAB PO SCH (08:18)
[2022-10-17] MEDS: carvediloL 25 MG TAB PO SCH ×2 (08:18→21:03)
[2022-10-17] MEDS: SUCRALFATE 1 GM TAB PO SCH ×4 (08:19→21:03)
[2022-10-17] MEDS: guaiFENesin 600 MG TABCR PO SCH ×2 (08:19→21:03)
[2022-10-17] MEDS: LOSARTAN POTASSIUM 50 MG TAB PO SCH (08:19)
[2022-10-17] MEDS: TRIAMCINOLONE ACET 0.1% CR 15 GM TUBE TOP SCH ×2 (08:20→21:17)
[2022-10-17] MEDS: methylPREDNISolone 40 MG in SYRINGE 0 ML IV SCH (09:38)
--- NOTE | 2022-10-17 10:30 | Pulmonology Progress Note ---
Date of Service October 17, 2022 Assessment & Plan (1) Acute and chronic respiratory failure with hypoxia: (2) Status post tracheostomy: (3) URI (upper respiratory infection): (4) COPD with acute exacerbation: (5) Acute bronchitis: (6) Multiple pulmonary nodules: Plan CT chest 10/15/2022 personally reviewed: Centrilobular emphysema appreciated bilaterally Small bilateral nodules in the upper lobe Tracheostomy in place Mucus appreciated in the trachea as well as right and left main bronchus No significant mediastinal lymphadenopathy -- Acute hypoxic respiratory failure Likely secondary to parainfluenza infection leading to Acute bronchitis and COPD exacerbation Procalcitonin 0.18 Respiratory bio fire parainfluenza positive, negative for COVID, RSV influenza A/B Continue with bronchodilators -- COPD Plan as above --Pulmonary nodules Bilateral upper lobes Continue to monitor given the history of laryngeal CA Recommend repeating CT chest in 6 to 8 months --History of laryngeal CA S/p total laryngectomy 2006 Plan: Continue with hypertonic saline nebulized along with Mucinex and chest vest therapy while in the hospital Start tapering prednisone 40 mg as of tomorrow and titrated off over the next 5 days Recommend continue with hypertonic saline nebulized, Brovana/Perforomist as well as budesonide nebulized at home Continue with antibiotics for total of 5 days No further recommendation from pulmonary perspective, will sign off Please call directly with any questions Case was discussed with Dr. Simpson Please note the above document was generated using voice recognition software. It may contain grammatical, syntax or spelling errors.Any formal questions or concerns about the content, text or information contained within the body of this dictation should be directly addressed to the provider for clarification. Admission and Anticipated Discharge Date Admission Date: October 15, 2022 Subjective Patient seen and examined at bedside. No acute distress, no adverse events overnight Overall she says she is feeling much better Bringing up clear phlegm Has been using chest vest Denies any headache, no nausea, no vomiting Good appetite. Review of Systems Review of Systems: All systems reviewed & are unremarkable except as noted in Subjective Physical Exam Physical Exam: Constitutional: No acute distress HEENT: EOMI, PERRLA, tracheostomy opening in place Respiratory system: Decreased air entry bilaterally, no wheeze, minimal rhonchi, mild crackles bilateral lower lobes CVS: S1-S2 positive, no murmurs or gallops Abdomen: Soft, nontender, nondistended, positive bowel sounds x4 Extremities: +2 pulses bilaterally radialis/ dorsalis pedis, no cyanosis, no edema Neuro: Awake alert oriented x3 Psych: Normal mood and affect G/U: No Madsen Skin: no rashes, warm and dry Lymphatic: no cervical or axillary lymphadenopathy Results & Data Results & Data Vital Signs (Past 12 Hours) Vital Signs Temp Pulse Pulse Resp BP Pulse Ox Pulse Ox 10/17/22 08:00 10/17/22 08:00 96 10/17/22 07:59 37.1 C 81 20 168/97 H 99 10/17/22 07:10 84 18 96 10/17/22 07:00 83 10/17/22 03:23 37.0 C 80 18 155/83 H 92 10/17/22 00:41 10/16/22 23:25 36.9 C 88 18 152/88 H 89 L 10/17/22 00:10 87 10/17/22 00:04 95 O2 Del Method O2 Del Method O2 Flow Rate O2 Flow Rate FiO2 10/17/22 08:00 Trach Collar 8 10/17/22 08:00 Trach Collar 8 10/17/22 07:59 Trach Collar 6 10/17/22 07:10 Trach Collar 6 28 10/17/22 07:00 10/17/22 03:23 Trach Collar 10/17/22 00:41 Trach Collar 10/16/22 23:25 Trach Collar 10/17/22 00:10 10/17/22 00:04 Trach Collar Laboratory Results 10/17/22 06:10 10/17/22 06:10 PG Care Time/CCT Total # of Minutes Spent Total Time Spent with Patient: Total time spent is greater than 50% in coordination of care (as documented) at patient's floor/unit and/or counseling patient: Coding Level of Care Code 80367 SUB INP/OBS CARE 2/35MIN Diagnoses Acute and chronic respiratory failure with hypoxia J96.21 Status post tracheostomy Z93.0 URI (upper respiratory infection) J06.9 COPD with acute exacerbation J44.1 Acute bronchitis J20.9 Multiple pulmonary nodules R91.8
--- NOTE | 2022-10-17 15:15 | Hospitalist Progress Note ---
Date of Service October 17, 2022 Assessment & Plan (1) URI (upper respiratory infection): (2) Chronic obstructive pulmonary disease: (3) Status post tracheostomy: (4) Hypertension: (5) History of thyroid cancer: (6) History of pancreatic cancer: (7) Acute and chronic respiratory failure with hypoxia: Plan This is a 66 yo F with history of thyroid/throat cancer s/p laryngectomy with tracheostomy, pancreatic cancer s/p Whipple procedure, type 2 diabetes, COPD, DVT status post surgical procedure, hypertension, hyperlipidemia and other medical problems listed below who presents with shortness of breath starting yesterday afternoon found to have acute hypoxic respiratory failure and URI. Acute hypoxic respiratory failure Parainfluenza 3 virus S/p trach Hypoxic in 80s initially, dropped to 70s with exertion. Afebrile, no leukocytosis. Parainfluenza 3 detected on PCR Sputum cultx - pending Chest CTA with no evidence of pulmonary embolus, correlate clinically for evidence of nonspecific tracheitis possible tracheal stenosis. Intraluminal debris noted in the trachea and central airways and mucous plugging in lower airways Continue supplemental O2, nebs, mucinex. Given empiric cefepime in ED with blood and sputum cultures pending Pulmonary medicine consulted - Continue with hypertonic saline nebulized along with Mucinex and chest vest therapy while in the hospital - [place]/Perforomist as well as budesonide nebulized once at home - switch to PO prednisone tmrw and titrate off over the next 5 days Continue with antibiotics for total of 5 days Diarrhea Present with virus. Added stool cx, c diff HTN Continue amlodipine, carvedilol and losartan Hypokalemia Hypomagnesemia Replaced, monitor in AM Psoriasis Cont clobetasol topically BID DM II A1c 7.5 from September 2022 Hold home agents SSI while in-patient BSG AC HS DVT Ppx: SQ lovenox Code status: FULL PCP: Dr. Castro Dispo: PCU Admission and Anticipated Discharge Date Admission Date: October 15, 2022 Subjective Pt seen in follow up of acute hypoxic resp. failure, parainfluenza positive, hx of trach Sitting up in bed in no acute distress Reports feeling much better today Reports breathing easier, still has some cough. Feels very short of breath w/ minimal ambulation. Pulmonary medicine following Review of Systems Review of Systems: All systems reviewed & are unremarkable except as noted in Subjective Physical Exam Physical Exam: General Appearance:WD/WN, in NAD, able to communicate with vocal prosthesis device Head: normocephalic, atraumatic Eyes:normal inspection, PERRL, EOMI. ENT: external ear and nose normal, oropharynx normal Neck: + trach with oxygen collar Respiratory: + minimal rhonchi, no wheezing, poor air entry Cardiovascular: rrr Chest: normal inspection of chest Abdomen/GI: normal bowel sounds, soft, nontender Extremities/Musculoskeletal:extremities motor strength 5/5 Neurologic: PERRL, EOMI, no face palsy, moves all extremities Psychiatric:A+Ox3, euthymic affect Skin: no rashes, normal color, warm/dry Results & Data Results & Data Vital Signs (Past 12 Hours) Vital Signs Temp Pulse Pulse Resp BP Pulse Ox Pulse Ox 10/17/22 15:00 80 10/17/22 11:47 36.9 C 73 13 156/93 H 94 10/17/22 08:00 10/17/22 08:00 96 10/17/22 07:59 37.1 C 81 20 168/97 H 99 10/17/22 07:10 84 18 96 10/17/22 07:00 83 10/17/22 03:23 37.0 C 80 18 155/83 H 92 O2 Del Method O2 Del Method O2 Flow Rate O2 Flow Rate FiO2 10/17/22 15:00 10/17/22 11:47 Trach Collar 6 10/17/22 08:00 Trach Collar 8 10/17/22 08:00 Trach Collar 8 10/17/22 07:59 Trach Collar 6 10/17/22 07:10 Trach Collar 6 28 10/17/22 07:00 10/17/22 03:23 Trach Collar Laboratory Results 10/17/22 10/17/22 10/17/22 Range/Units 11:12 07:43 06:10 WBC 9.85 (4.8-10.8) K/ul RBC 5.27 (4.20-5.40) M/uL Hgb 14.8 (12.0-16.0) g/dl Hct 43.0 (37.0-47.0) % MCV 81.6 (80.0-100.0) fL MCH 28.1 (25.0-34.0) pg MCHC 34.4 (32.0-36.0) g/dL RDW Std Deviation 39.8 (36.4-46.3) fL RDW Coeff of Monika 13.4 (11.5-14.5) % Plt Count 318 (130-400) K/uL MPV 10.5 (9.4-12.4) fL Sodium (136-145) mmol/L Potassium (3.5-5.1) mmol/L Chloride (98-107) mmol/L Carbon Dioxide (21-32) mmol/L Anion Gap (3-11) BUN (6-23) mg/dl Creatinine (0.6-1.2) mg/dl Est Cr Clr Drug Dosing ml/min Est GFR ( Amer) ml/min Est GFR (Non-Af Amer) ml/min BUN/Creatinine Ratio (10-20) Glucose (70-99(Fasting)) mg/dl POC Glucose 135 H 147 H (70-99) mg/dl Calcium (8.6-10.3) mg/dl Phosphorus (2.5-4.9) mg/dl Magnesium (1.7-2.4) mg/dl 10/17/22 10/16/22 10/16/22 Range/Units 06:10 20:29 16:41 WBC (4.8-10.8) K/ul RBC (4.20-5.40) M/uL Hgb (12.0-16.0) g/dl Hct (37.0-47.0) % MCV (80.0-100.0) fL MCH (25.0-34.0) pg MCHC (32.0-36.0) g/dL RDW Std Deviation (36.4-46.3) fL RDW Coeff of Monika (11.5-14.5) % Plt Count (130-400) K/uL MPV (9.4-12.4) fL Sodium 140 (136-145) mmol/L Potassium 3.6 (3.5-5.1) mmol/L Chloride 103 (98-107) mmol/L Carbon Dioxide 28 (21-32) mmol/L Anion Gap 9 (3-11) BUN 19 (6-23) mg/dl Creatinine 0.98 (0.6-1.2) mg/dl Est Cr Clr Drug Dosing 60.9 ml/min Est GFR ( Amer) 70.2 ml/min Est GFR (Non-Af Amer) 60.5 ml/min BUN/Creatinine Ratio 19.4 (10-20) Glucose 158 H (70-99(Fasting)) mg/dl POC Glucose 226 H 134 H (70-99) mg/dl Calcium 7.9 L (8.6-10.3) mg/dl Phosphorus 2.6 (2.5-4.9) mg/dl Magnesium 1.8 (1.7-2.4) mg/dl Medications Administered Current Inpatient Medications Acetaminophen (Acetaminophen 325 Mg Tab) 650 mg PO Q4H PRN PRN Reason: Pain or Fever Stop: 11/14/22 16:19 Last Admin: 10/15/22 17:41 Dose: 650 mg Amlodipine Besylate (Amlodipine Besylate 5 Mg Tab) 10 mg PO DAILY [facility] Stop: 11/15/22 08:59 Last Admin: 10/17/22 08:18 Dose: 10 mg Budesonide (Budesonide 0.25 Mg/2 Ml Vial (Pulmicort)) 0.25 mg NEB BIDR [facility] Stop: 11/14/22 18:59 Last Admin: 10/17/22 07:21 Dose: 0.25 mg Carvedilol (Carvedilol 25 Mg Tab) 25 mg PO BID [facility] Stop: 11/14/22 20:59 Last Admin: 10/17/22 08:18 Dose: 25 mg Clobetasol Propionate (Clobetasol Propionate 0.05% Oint 15 Gm Tube) 1 appln EXT BID PRN PRN Reason: flare ups Stop: 11/14/22 15:33 Cyanocobalamin (Cyanocobalamin (B-12) 500 Mcg Tablet) 500 mcg PO BID [facility] Stop: 11/14/22 20:59 Last Admin: 10/17/22 08:18 Dose: 500 mcg Cyclobenzaprine HCl (Cyclobenzaprine Hcl 10 Mg Tab) 10 mg PO HS PRN PRN Reason: Muscle Spasm Stop: 11/14/22 15:33 Last Admin: 10/15/22 19:17 Dose: 10 mg Dextrose (Dextrose 50% 50 Ml Syringe) 25 - 50 ml IV UD PRN; Protocol PRN Reason: Hypoglycemia Protocol Stop: 11/14/22 15:40 Enoxaparin Sodium (Enoxaparin Inj 40 Mg/0.4 Ml Syr) 40 mg SQ Q24H [facility] Stop: 11/14/22 16:59 Last Admin: 10/16/22 17:08 Dose: 40 mg Formoterol Fumarate (Formoterol 20 Mcg/2 Ml Vial) 20 mcg NEB BIDR [facility] Stop: 11/14/22 18:59 Last Admin: 10/17/22 07:20 Dose: 20 mcg Glucagon (Glucagon For Inj 1 Mg Vial) 1 mg SQ UD PRN; Protocol PRN Reason: Hypoglycemia Protocol Stop: 11/14/22 15:40 Glucose (Glucose 10 Tab/Tube) 4 - 8 tab PO UD PRN; Protocol PRN Reason: Hypoglycemia Treatment Stop: 11/14/22 15:40 Glucose (Glucose 40% Gel 15 Gm Tube) 15 - 30 gm PO UD PRN; Protocol PRN Reason: Hypoglycemia Protocol Stop: 11/14/22 15:40 Guaifenesin (Guaifenesin 600 Mg Tabcr) 1,200 mg PO Q12 [facility] Stop: 11/14/22 20:59 Last Admin: 10/17/22 08:19 Dose: 1,200 mg Cefepime HCl 2,000 mg/ Syringe 20 mls @ 5 mls/min IV Q8 [facility]; Protocol Stop: 10/22/22 18:59 Last Admin: 10/17/22 13:42 Dose: 5 mls/min Methylprednisolone 40 mg/ (Syringe) 0.64 mls @ 1.5 mls/min IV DAILY [facility] Stop: 11/14/22 18:44 Last Admin: 10/17/22 09:38 Dose: 1.5 mls/min Insulin Aspart (Insulin Aspart Per Unit Charge) 0 units SC ACHS [facility] Stop: 11/14/22 16:29 Last Admin: 10/17/22 11:50 Dose: 3 units Labetalol HCl (Labetalol Hcl Iv 5 Mg/Ml 20ml) 10 mg IV Q6 PRN PRN Reason: for SBP above 180 Stop: 11/14/22 18:36 Lactobacillus Acidophilus (Advanced Probiotic 1250 Mg Capsule) 2 cap PO DAILY [facility] Stop: 11/15/22 16:14 Last Admin: 10/17/22 08:18 Dose: 2 cap Levothyroxine Sodium (Levothyroxine Sodium 200 Mcg Tablet) 200 mcg PO DAILYBB [facility] Stop: 11/15/22 06:29 Last Admin: 10/17/22 05:35 Dose: 200 mcg Losartan Potassium (Losartan Potassium 50 Mg Tab) 100 mg PO QAM [facility] Stop: 11/15/22 08:59 Last Admin: 10/17/22 08:19 Dose: 100 mg Miscellaneous (Carbohydrates For Hypoglycemia ) 15 - 30 gm PO UD PRN PRN Reason: Hypoglycemia Protocol Stop: 11/14/22 15:40 Ondansetron HCl (Ondansetron Inj 2 Mg/Ml 2 Ml Vial) 4 mg IV Q6H PRN PRN Reason: Nausea Stop: 11/14/22 16:19 Pantoprazole Sodium (Pantoprazole 40 Mg Tab) 40 mg PO QAM [facility] Stop: 11/15/22 08:59 Last Admin: 10/17/22 08:18 Dose: 40 mg Polyethylene Glycol (Polyethylene (Miralax) 17 Gm Pack) 17 gm PO DAILY PRN PRN Reason: Constipation Stop: 11/14/22 16:19 Sodium Chloride (Sodium Chlor 7% 4 Ml Neb) 4 ml NEB BIDR [facility] Stop: 11/14/22 18:59 Last Admin: 10/17/22 07:10 Dose: 4 ml Sucralfate (Sucralfate 1 Gm Tab) 1 gm PO QID [facility] Stop: 11/14/22 16:59 Last Admin: 10/17/22 11:52 Dose: 1 gm Triamcinolone Acetonide (Triamcinolone Acet 0.1% Cr 15 Gm Tube) 1 appln TOP BID [facility] Stop: 11/14/22 20:59 Last Admin: 10/17/22 08:20 Dose: 1 appln (4) Hypertension Hypertension type: unspecified Qualified Code(s): I10 - Essential (primary) hypertension
[2022-10-17] MEDS: ENOXAPARIN INJ 40 MG/0.4 ML SYR SQ SCH (16:52)
[2022-10-17 17:48] LABS: Cdiff Toxin B Gene (2yr or >) Positive Cdiff Gene (Neg)
[2022-10-17 18:23] LABS: Adenovirus F 40/41 PCR Not Detected (NotDetected); Astrovirus PCR Not Detected (NotDetected); Campylobacter PCR Not Detected (NotDetected); Cryptosporidium PCR Not Detected (NotDetected); Cyclospora cayetanensis PCR Not Detected (NotDetected); Entamoeba histolytica PCR Not Detected (NotDetected); Enteroaggregative E.coli(EAEC) Not Detected (NotDetected); Enteropathogenic E.coli (EPEC) Not Detected (NotDetected); Enterotoxigenic E.coli (ETEC) Not Detected (NotDetected); Giardia lamblia PCR Not Detected (NotDetected); Norovirus GI/GII PCR Not Detected (NotDetected); Plesiomonas shigelloides PCR Not Detected (NotDetected); Rotavirus A PCR Not Detected (NotDetected); Salmonella PCR Not Detected (NotDetected); Sapovirus PCR Not Detected (NotDetected); Shiga-like Toxin E.coli (STEC) Not Detected (NotDetected); Shigella/Enteroinvasive E.coli Not Detected (NotDetected); Vibrio cholerae PCR Not Detected (NotDetected); Vibrio species PCR Not Detected (NotDetected); Yersinia enterocolitica PCR Not Detected (NotDetected)
[2022-10-17 18:51] LABS: Cdiff Antigen Positive; Cdiff Toxin A+B Negative Cdiff Toxin (Negative)
[2022-10-17] MEDS: CYCLOBENZAPRINE HCL 10 MG TAB PO PRN (21:03)
[2022-10-18] MEDS: LEVOTHYROXINE SODIUM 200 MCG TABLET PO SCH (05:59)
[2022-10-18] MEDS: CEFEPIME 2,000 MG in SYRINGE 0 ML IV SCH ×3 (05:59→21:31)
[2022-10-18 06:15] LABS: Hematocrit (blood only) 43.1 % (37.0-47.0); Hemoglobin 14.9 g/dl (12.0-16.0); Mean Corpuscular Hemoglobin 28.1 pg (25.0-34.0); Mean Corpuscular Hgb Conc 34.6 g/dL (32.0-36.0); Mean Corpuscular Volume 81.3 fL (80.0-100.0); Mean Platelet Volume 10.3 fL (9.4-12.4); Platelet Count 300 K/uL (130-400); RDW Coefficient of Variation 13.4 % (11.5-14.5); RDW Standard Deviation 39.7 fL (36.4-46.3); White Blood Count 10.41 K/ul (4.8-10.8)
[2022-10-18 06:30] LABS: BUN Creatinine Ratio 23.3 (10-20); Calcium 7.8 mg/dl (8.6-10.3); Creatinine Clr Calc Pharmacy 65.1 ml/min; Est GFR (African American) 77.8 ml/min; Est GFR (Non-African American) 67.1 ml/min; Magnesium 1.7 mg/dl (1.7-2.4); Phosphorus 2.9 mg/dl (2.5-4.9); Potassium 3.3 mmol/L (3.5-5.1)
[2022-10-18] MEDS: SODIUM CHLOR 7% 4 ML NEB NEB SCH ×2 (07:09→19:53)
--- NOTE | 2022-10-18 07:19 | Pulmonology Progress Note ---
Date of Service October 18, 2022 Assessment & Plan (1) Acute and chronic respiratory failure with hypoxia: (2) Status post tracheostomy: (3) URI (upper respiratory infection): (4) COPD with acute exacerbation: (5) Acute bronchitis: (6) Multiple pulmonary nodules: Plan CT chest 10/15/2022 personally reviewed: Centrilobular emphysema appreciated bilaterally Small bilateral nodules in the upper lobe Tracheostomy in place Mucus appreciated in the trachea as well as right and left main bronchus No significant mediastinal lymphadenopathy -- Acute hypoxic respiratory failure Likely secondary to parainfluenza infection leading to Acute bronchitis and COPD exacerbation Procalcitonin 0.18 Respiratory bio fire parainfluenza positive, negative for COVID, RSV influenza A/B Continue with bronchodilators -- COPD Plan as above --Pulmonary nodules Bilateral upper lobes Continue to monitor given the history of laryngeal CA Recommend repeating CT chest in 6 to 8 months --History of laryngeal CA S/p total laryngectomy 2006 Plan: Continue with hypertonic saline nebulized along with Mucinex and chest vest therapy while in the hospital I will add Mucomyst nebulized as patient is still complaining of difficulty bringing up phlegm. Prednisone 40 mg as of tomorrow and titrated off over the next 5 days Recommend continue with hypertonic saline nebulized, Brovana/Perforomist as well as budesonide nebulized at home Continue with antibiotics for total of 5 days Recommend doing two-step to check for oxygen requirement prior to discharge No further recommendation from pulmonary perspective, will sign off Please call directly with any questions Case was discussed with Dr. Simpson Please note the above document was generated using voice recognition software. It may contain grammatical, syntax or spelling errors.Any formal questions or concerns about the content, text or information contained within the body of this dictation should be directly addressed to the provider for clarification. Admission and Anticipated Discharge Date Admission Date: October 15, 2022 Subjective Patient seen and examined at bedside. No acute distress, no adverse events overnight Patient was on 6 L trach collar saturating 98-99%. I was able to go down to 3 L and she was still saturating well. Says that she is feeling better compared to before Coughing up clear phlegm. Does complain of some difficulty bringing up phlegm early in the morning No nausea or vomiting Review of Systems Review of Systems: All systems reviewed & are unremarkable except as noted in Subjective Physical Exam Physical Exam: Constitutional: No acute distress HEENT: EOMI, PERRLA, tracheostomy opening in place Respiratory system: Decreased air entry bilaterally, no rhonchi, mild expiratory wheeze bilaterally, mild crackles bilateral lower lobes CVS: S1-S2 positive, no murmurs or gallops Abdomen: Soft, nontender, nondistended, positive bowel sounds x4 Extremities: +2 pulses bilaterally radialis/ dorsalis pedis, no cyanosis, no edema Neuro: Awake alert oriented x3 Psych: Normal mood and affect G/U: No Madsen Skin: no rashes, warm and dry Lymphatic: no cervical or axillary lymphadenopathy Results & Data Results & Data Vital Signs (Past 12 Hours) Vital Signs Temp Pulse Resp BP BP Pulse Ox O2 Del Method 10/18/22 07:12 70 18 96 Trach Collar 10/18/22 03:38 36.5 C 64 20 163/83 H 93 Trach Collar 10/17/22 22:55 36.9 C 71 18 154/83 H 93 Trach Collar 10/17/22 21:41 Trach Collar 10/17/22 21:07 143/88 H 10/17/22 20:09 85 18 94 Trach Collar O2 Flow Rate FiO2 10/18/22 07:12 6 28 10/18/22 03:38 10/17/22 22:55 10/17/22 21:41 6 10/17/22 21:07 10/17/22 20:09 6 28 Laboratory Results 10/18/22 05:34 10/18/22 05:34 PG Care Time/CCT Total # of Minutes Spent Total Time Spent with Patient: Total time spent is greater than 50% in coordination of care (as documented) at patient's floor/unit and/or counseling patient: Coding Level of Care Code 89903 SUB INP/OBS CARE 2/35MIN Diagnoses Acute and chronic respiratory failure with hypoxia J96.21 Status post tracheostomy Z93.0 URI (upper respiratory infection) J06.9 COPD with acute exacerbation J44.1 Acute bronchitis J20.9 Multiple pulmonary nodules R91.8
[2022-10-18] MEDS: BUDESONIDE 0.25 MG/2 ML VIAL (PULMICORT) NEB SCH ×2 (07:24→19:53)
[2022-10-18] MEDS: FORMOTEROL 20 MCG/2 ML VIAL NEB SCH ×2 (07:24→19:53)
[2022-10-18] MEDS: INSULIN ASPART PER UNIT CHARGE SC SCH ×4 (07:58→20:35)
[2022-10-18] MEDS: LOSARTAN POTASSIUM 50 MG TAB PO SCH (07:59)
[2022-10-18] MEDS: amLODIPine BESYLATE 5 MG TAB PO SCH (07:59)
[2022-10-18] MEDS: carvediloL 25 MG TAB PO SCH ×2 (08:00→20:35)
[2022-10-18] MEDS: CYANOCOBALAMIN (B-12) 500 MCG TABLET PO SCH ×2 (08:00→20:35)
[2022-10-18] MEDS: ADVANCED PROBIOTIC 1250 MG CAPSULE PO SCH (08:00)
[2022-10-18] MEDS: guaiFENesin 600 MG TABCR PO SCH ×2 (08:00→20:35)
[2022-10-18] MEDS: PANTOprazole 40 MG TAB PO SCH (08:01)
[2022-10-18] MEDS: SUCRALFATE 1 GM TAB PO SCH ×4 (08:01→20:34)
[2022-10-18] MEDS: methylPREDNISolone 40 MG in SYRINGE 0 ML IV SCH (08:06)
[2022-10-18] MEDS: TRIAMCINOLONE ACET 0.1% CR 15 GM TUBE TOP SCH ×2 (08:33→20:35)
--- NOTE | 2022-10-18 09:14 | XRay Report ---
SINGLE VIEW CHEST CLINICAL HISTORY: Hypoxia. FINDINGS: An AP, portable, upright chest radiograph is compared to chest x-ray and chest CT dated 10/03. The heart is enlarged noting atherosclerotic calcification of the thoracic aorta. The pulmona ry vasculature is noncongested. Chronic interstitial thickening is similar to previous. The lungs and pleural spaces are clear noting mild bibasilar scarring/atelectasis. No pneumothorax is seen. The sk eletal structures are osteopenic. The bony thorax is grossly intact. IMPRESSION: Mild cardiac enlargement with no acute cardiopulmonary abnormality identified. No signifi cant change from 10/15/2022. ACT 112: Negative or not required by law. Electronically signed by: Vic Vásquez M.D. 10/18/2022 9:12 AM
[2022-10-18] MEDS ORDERED: ALBUTEROL 0.5% NEB SOLN 2.5 MG/0.5 ML VIAL NEB PRN (10:47)
[2022-10-18] MEDS: ACETYLCYSTEINE 20% INHAL SOLN 4ML ***DISPENSED BY RESP. INH SCH ×2 (10:59→20:09)
--- NOTE | 2022-10-18 12:15 | Hospitalist Progress Note ---
Date of Service October 18, 2022 Assessment & Plan (1) URI (upper respiratory infection): (2) Chronic obstructive pulmonary disease: (3) Status post tracheostomy: (4) Hypertension: (5) History of thyroid cancer: (6) History of pancreatic cancer: (7) Acute and chronic respiratory failure with hypoxia: Plan This is a 66 yo F with history of thyroid/throat cancer s/p laryngectomy with tracheostomy, pancreatic cancer s/p Whipple procedure, type 2 diabetes, COPD, DVT status post surgical procedure, hypertension, hyperlipidemia and other medical problems listed below who presents with shortness of breath starting yesterday afternoon found to have acute hypoxic respiratory failure and URI. Acute hypoxic respiratory failure Parainfluenza 3 virus S/p trach Hypoxic in 80s initially, dropped to 70s with exertion. Afebrile, no leukocytosis. Parainfluenza 3 detected on PCR Sputum cultx - normal gelacio Chest CTA with no evidence of pulmonary embolus, correlate clinically for evidence of nonspecific tracheitis possible tracheal stenosis. Intraluminal debris noted in the trachea and central airways and mucous plugging in lower airways Continue supplemental O2, nebs, mucinex. Given empiric cefepime in ED, continued Pulmonary medicine consulted - Continue with hypertonic saline nebulized along with Mucinex and chest vest therapy while in the hospital - Brovana/Perforomist as well as budesonide nebulized once at home - switch to PO prednisone and titrate off over the next 5 days Continue with antibiotics for total of 5 days Diarrhea Present with virus. Added stool cx, c diff HTN Continue amlodipine, carvedilol and losartan Hypokalemia Hypomagnesemia Replaced, monitor in AM Psoriasis Cont clobetasol topically BID DM II A1c 7.5 from September 2022 Hold home agents SSI while in-patient BSG AC HS DVT Ppx: SQ lovenox Code status: FULL PCP: Dr. Castro Dispo: PCU Admission and Anticipated Discharge Date Admission Date: October 15, 2022 Subjective Pt seen in follow up of acute hypoxic resp. failure, parainfluenza positive, hx of trach Sitting up in bed in no acute distress Reports feeling much better overall Reports breathing easier, still has some cough. Feels very short of breath w/ minimal ambulation. Pulmonary medicine following Review of Systems Review of Systems: All systems reviewed & are unremarkable except as noted in Subjective Physical Exam Physical Exam: General Appearance:WD/WN, in NAD, able to communicate with vocal prosthesis device Head: normocephalic, atraumatic Eyes:normal inspection, PERRL, EOMI. ENT: external ear and nose normal, oropharynx normal Neck: + trach with oxygen collar Respiratory: + minimal rhonchi, no wheezing, poor air entry Cardiovascular: rrr Chest: normal inspection of chest Abdomen/GI: normal bowel sounds, soft, nontender Extremities/Musculoskeletal:extremities motor strength 5/5 Neurologic: PERRL, EOMI, no face palsy, moves all extremities Psychiatric:A+Ox3, euthymic affect Skin: no rashes, normal color, warm/dry Results & Data Results & Data Vital Signs (Past 12 Hours) Vital Signs Temp Pulse Pulse Resp BP BP Pulse Ox 10/18/22 11:47 37.1 C 71 22 158/96 H 93 10/18/22 08:35 10/18/22 08:00 10/18/22 07:44 36.9 C 70 22 171/93 H 95 10/18/22 07:00 56 L 10/18/22 07:12 70 18 96 10/18/22 03:38 36.5 C 64 20 163/83 H 93 Pulse Ox O2 Del Method O2 Del Method O2 Flow Rate O2 Flow Rate FiO2 10/18/22 11:47 Trach Collar 5.0 10/18/22 08:35 Trach Collar 6 10/18/22 08:00 95 Trach Collar 6 10/18/22 07:44 Trach Collar 6.0 10/18/22 07:00 10/18/22 07:12 Trach Collar 6 28 10/18/22 03:38 Trach Collar Laboratory Results 10/18/22 10/18/22 10/18/22 Range/Units 11:18 07:21 05:34 WBC (4.8-10.8) K/ul RBC (4.20-5.40) M/uL Hgb (12.0-16.0) g/dl Hct (37.0-47.0) % MCV (80.0-100.0) fL MCH (25.0-34.0) pg MCHC (32.0-36.0) g/dL RDW Std Deviation (36.4-46.3) fL RDW Coeff of Monika (11.5-14.5) % Plt Count (130-400) K/uL MPV (9.4-12.4) fL Sodium 139 (136-145) mmol/L Potassium 3.3 L (3.5-5.1) mmol/L Chloride 105 (98-107) mmol/L Carbon Dioxide 25 (21-32) mmol/L Anion Gap 9 (3-11) BUN 21 (6-23) mg/dl Creatinine 0.90 (0.6-1.2) mg/dl Est Cr Clr Drug Dosing 65.1 ml/min Est GFR ( Amer) 77.8 ml/min Est GFR (Non-Af Amer) 67.1 ml/min BUN/Creatinine Ratio 23.3 H (10-20) Glucose 152 H (70-99(Fasting)) mg/dl POC Glucose 237 H 143 H (70-99) mg/dl Calcium 7.8 L (8.6-10.3) mg/dl Phosphorus 2.9 (2.5-4.9) mg/dl Magnesium 1.7 (1.7-2.4) mg/dl Stl C. cayetanensis PCR (NotDetected) Stool Rotavirus A PCR (NotDetected) Stl Adenov F 40/41 PCR (NotDetected) Stool Astrovirus (PCR) (NotDetected) Stool Campylobacter PCR (NotDetected) Stl C. diff Tox B Gene (Neg) Stl C.difficile Tox A&B (Negative) Stool Cryptosporidium PCR (NotDetected) Stl E.coli Shiga Tox PCR (NotDetected) Stl Enterotoxigenic E PCR (NotDetected) Stool EPEC (PCR) (NotDetected) Stool EAEC (PCR) (NotDetected) Stl E. histolytica PCR (NotDetected) Stool Giardia Lamblia PCR (NotDetected) Stool Salmonella PCR (NotDetected) Stool Sapovirus (PCR) (NotDetected) Stl P. shigelloides PCR (NotDetected) Stl Shigella/EIEC PCR (NotDetected) St Y.enterocolitica PCR (NotDetected) Stool Vibrio (PCR) (NotDetected) Stl Vibrio cholerae PCR (NotDetected) Stl Norovirus GI/GII PCR (NotDetected) 04/16/23 04/15/23 04/15/23 Range/Units 05:34 20:58 16:55 WBC 10.41 (4.8-10.8) K/ul RBC 5.30 (4.20-5.40) M/uL Hgb 14.9 (12.0-16.0) g/dl Hct 43.1 (37.0-47.0) % MCV 81.3 (80.0-100.0) fL MCH 28.1 (25.0-34.0) pg MCHC 34.6 (32.0-36.0) g/dL RDW Std Deviation 39.7 (36.4-46.3) fL RDW Coeff of Monika 13.4 (11.5-14.5) % Plt Count 300 (130-400) K/uL MPV 10.3 (9.4-12.4) fL Sodium (136-145) mmol/L Potassium (3.5-5.1) mmol/L Chloride (98-107) mmol/L Carbon Dioxide (21-32) mmol/L Anion Gap (3-11) BUN (6-23) mg/dl Creatinine (0.6-1.2) mg/dl Est Cr Clr Drug Dosing ml/min Est GFR ( Amer) ml/min Est GFR (Non-Af Amer) ml/min BUN/Creatinine Ratio (10-20) Glucose (70-99(Fasting)) mg/dl POC Glucose 231 H (70-99) mg/dl Calcium (8.6-10.3) mg/dl Phosphorus (2.5-4.9) mg/dl Magnesium (1.7-2.4) mg/dl Stl C. cayetanensis PCR Not Detected (NotDetected) Stool Rotavirus A PCR Not Detected (NotDetected) Stl Adenov F 40/41 PCR Not Detected (NotDetected) Stool Astrovirus (PCR) Not Detected (NotDetected) Stool Campylobacter PCR Not Detected (NotDetected) Stl C. diff Tox B Gene (Neg) Stl C.difficile Tox A&B (Negative) Stool Cryptosporidium PCR Not Detected (NotDetected) Stl E.coli Shiga Tox PCR Not Detected (NotDetected) Stl Enterotoxigenic E PCR Not Detected (NotDetected) Stool EPEC (PCR) Not Detected (NotDetected) Stool EAEC (PCR) Not Detected (NotDetected) Stl E. histolytica PCR Not Detected (NotDetected) Stool Giardia Lamblia PCR Not Detected (NotDetected) Stool Salmonella PCR Not Detected (NotDetected) Stool Sapovirus (PCR) Not Detected (NotDetected) Stl P. shigelloides PCR Not Detected (NotDetected) Stl Shigella/EIEC PCR Not Detected (NotDetected) St Y.enterocolitica PCR Not Detected (NotDetected) Stool Vibrio (PCR) Not Detected (NotDetected) Stl Vibrio cholerae PCR Not Detected (NotDetected) Stl Norovirus GI/GII PCR Not Detected (NotDetected) 10/17/22 10/17/22 Range/Units 16:55 16:34 WBC (4.8-10.8) K/ul RBC (4.20-5.40) M/uL Hgb (12.0-16.0) g/dl Hct (37.0-47.0) % MCV (80.0-100.0) fL MCH (25.0-34.0) pg MCHC (32.0-36.0) g/dL RDW Std Deviation (36.4-46.3) fL RDW Coeff of Monika (11.5-14.5) % Plt Count (130-400) K/uL MPV (9.4-12.4) fL Sodium (136-145) mmol/L Potassium (3.5-5.1) mmol/L Chloride (98-107) mmol/L Carbon Dioxide (21-32) mmol/L Anion Gap (3-11) BUN (6-23) mg/dl Creatinine (0.6-1.2) mg/dl Est Cr Clr Drug Dosing ml/min Est GFR ( Amer) ml/min Est GFR (Non-Af Amer) ml/min BUN/Creatinine Ratio (10-20) Glucose (70-99(Fasting)) mg/dl POC Glucose 217 H (70-99) mg/dl Calcium (8.6-10.3) mg/dl Phosphorus (2.5-4.9) mg/dl Magnesium (1.7-2.4) mg/dl Stl C. cayetanensis PCR (NotDetected) Stool Rotavirus A PCR (NotDetected) Stl Adenov F 40/41 PCR (NotDetected) Stool Astrovirus (PCR) (NotDetected) Stool Campylobacter PCR (NotDetected) Stl C. diff Tox B Gene Positive Cdiff Gene H (Neg) Stl C.difficile Tox A&B Negative Cdiff Toxin (Negative) Stool Cryptosporidium PCR (NotDetected) Stl E.coli Shiga Tox PCR (NotDetected) Stl Enterotoxigenic E PCR (NotDetected) Stool EPEC (PCR) (NotDetected) Stool EAEC (PCR) (NotDetected) Stl E. histolytica PCR (NotDetected) Stool Giardia Lamblia PCR (NotDetected) Stool Salmonella PCR (NotDetected) Stool Sapovirus (PCR) (NotDetected) Stl P. shigelloides PCR (NotDetected) Stl Shigella/EIEC PCR (NotDetected) St Y.enterocolitica PCR (NotDetected) Stool Vibrio (PCR) (NotDetected) Stl Vibrio cholerae PCR (NotDetected) Stl Norovirus GI/GII PCR (NotDetected) Medications Administered Current Inpatient Medications Acetaminophen (Acetaminophen 325 Mg Tab) 650 mg PO Q4H PRN PRN Reason: Pain or Fever Stop: 11/14/22 16:19 Last Admin: 10/15/22 17:41 Dose: 650 mg Acetylcysteine (Acetylcysteine 20% Inhal Soln 4ml Dispensed By Resp.) 5 ml INH Q12R LAURA Stop: 11/17/22 10:29 Last Admin: 10/18/22 10:59 Dose: 5 ml Albuterol (Albuterol 0.5% Neb Soln 2.5 Mg/0.5 Ml Vial) 2.5 mg NEB Q2R PRN; Protocol PRN Reason: Shortness Of Breath Or Wheezing Stop: 11/17/22 10:46 Last Admin: 10/18/22 10:59 Dose: 2.5 mg Amlodipine Besylate (Amlodipine Besylate 5 Mg Tab) 10 mg PO DAILY [facility] Stop: 11/15/22 08:59 Last Admin: 10/18/22 07:59 Dose: 10 mg Budesonide (Budesonide 0.25 Mg/2 Ml Vial (Pulmicort)) 0.25 mg NEB BIDR [facility] Stop: 11/14/22 18:59 Last Admin: 10/18/22 07:24 Dose: 0.25 mg Carvedilol (Carvedilol 25 Mg Tab) 25 mg PO BID LAURA Stop: 11/14/22 20:59 Last Admin: 10/18/22 08:00 Dose: 25 mg Clobetasol Propionate (Clobetasol Propionate 0.05% Oint 15 Gm Tube) 1 appln EXT BID PRN PRN Reason: flare ups Stop: 11/14/22 15:33 Cyanocobalamin (Cyanocobalamin (B-12) 500 Mcg Tablet) 500 mcg PO BID [facility] Stop: 11/14/22 20:59 Last Admin: 10/18/22 08:00 Dose: 500 mcg Cyclobenzaprine HCl (Cyclobenzaprine Hcl 10 Mg Tab) 10 mg PO HS PRN PRN Reason: Muscle Spasm Stop: 11/14/22 15:33 Last Admin: 10/17/22 21:03 Dose: 10 mg Dextrose (Dextrose 50% 50 Ml Syringe) 25 - 50 ml IV UD PRN; Protocol PRN Reason: Hypoglycemia Protocol Stop: 11/14/22 15:40 Enoxaparin Sodium (Enoxaparin Inj 40 Mg/0.4 Ml Syr) 40 mg SQ Q24H [facility] Stop: 11/14/22 16:59 Last Admin: 10/17/22 16:52 Dose: 40 mg Formoterol Fumarate (Formoterol 20 Mcg/2 Ml Vial) 20 mcg NEB BIDR [facility] Stop: 11/14/22 18:59 Last Admin: 10/18/22 07:24 Dose: 20 mcg Glucagon (Glucagon For Inj 1 Mg Vial) 1 mg SQ UD PRN; Protocol PRN Reason: Hypoglycemia Protocol Stop: 11/14/22 15:40 Glucose (Glucose 10 Tab/Tube) 4 - 8 tab PO UD PRN; Protocol PRN Reason: Hypoglycemia Treatment Stop: 11/14/22 15:40 Glucose (Glucose 40% Gel 15 Gm Tube) 15 - 30 gm PO UD PRN; Protocol PRN Reason: Hypoglycemia Protocol Stop: 11/14/22 15:40 Guaifenesin (Guaifenesin 600 Mg Tabcr) 1,200 mg PO Q12 [facility] Stop: 11/14/22 20:59 Last Admin: 10/18/22 08:00 Dose: 1,200 mg Cefepime HCl 2,000 mg/ Syringe 20 mls @ 5 mls/min IV Q8 [facility]; Protocol Stop: 10/22/22 18:59 Last Admin: 10/18/22 14:04 Dose: 5 mls/min Insulin Aspart (Insulin Aspart Per Unit Charge) 0 units SC ACHS LAURA Stop: 11/14/22 16:29 Last Admin: 10/18/22 11:48 Dose: 9 units Labetalol HCl (Labetalol Hcl Iv 5 Mg/Ml 20ml) 10 mg IV Q6 PRN PRN Reason: for SBP above 180 Stop: 11/14/22 18:36 Lactobacillus Acidophilus (Advanced Probiotic 1250 Mg Capsule) 2 cap PO DAILY [facility] Stop: 11/15/22 16:14 Last Admin: 10/18/22 08:00 Dose: 2 cap Levothyroxine Sodium (Levothyroxine Sodium 200 Mcg Tablet) 200 mcg PO DAILYBB [facility] Stop: 11/15/22 06:29 Last Admin: 10/18/22 05:59 Dose: 200 mcg Losartan Potassium (Losartan Potassium 50 Mg Tab) 100 mg PO QAM [facility] Stop: 11/15/22 08:59 Last Admin: 10/18/22 07:59 Dose: 100 mg Magnesium Oxide (Magnesium Oxide 400 Mg Tab) 400 mg PO QAM [facility] Stop: 11/17/22 15:14 Miscellaneous (Carbohydrates For Hypoglycemia ) 15 - 30 gm PO UD PRN PRN Reason: Hypoglycemia Protocol Stop: 11/14/22 15:40 Ondansetron HCl (Ondansetron Inj 2 Mg/Ml 2 Ml Vial) 4 mg IV Q6H PRN PRN Reason: Nausea Stop: 11/14/22 16:19 Pantoprazole Sodium (Pantoprazole 40 Mg Tab) 40 mg PO QAM [facility] Stop: 11/15/22 08:59 Last Admin: 10/18/22 08:01 Dose: 40 mg Polyethylene Glycol (Polyethylene (Miralax) 17 Gm Pack) 17 gm PO DAILY PRN PRN Reason: Constipation Stop: 11/14/22 16:19 Potassium Chloride (Potassium Chloride Crtab 20 Meq Tabcr) 40 meq PO NOW STA Stop: 10/18/22 15:15 Prednisone (Prednisone 20 Mg Tab) 40 mg PO QAM [facility] Stop: 11/18/22 08:59 Sodium Chloride (Sodium Chlor 7% 4 Ml Neb) 4 ml NEB BIDR [facility] Stop: 11/14/22 18:59 Last Admin: 10/18/22 07:09 Dose: 4 ml Sucralfate (Sucralfate 1 Gm Tab) 1 gm PO QID [facility] Stop: 11/14/22 16:59 Last Admin: 10/18/22 11:48 Dose: 1 gm Triamcinolone Acetonide (Triamcinolone Acet 0.1% Cr 15 Gm Tube) 1 appln TOP BID [facility] Stop: 11/14/22 20:59 Last Admin: 10/18/22 08:33 Dose: 1 appln (4) Hypertension Hypertension type: unspecified Qualified Code(s): I10 - Essential (primary) hypertension
[2022-10-18] MEDS ORDERED: POTASSIUM CHLORIDE CRTAB 20 MEQ TABCR PO STA (15:14)
[2022-10-18] MEDS: MAGNESIUM OXIDE 400 MG TAB PO SCH (16:24)
[2022-10-18] MEDS: ENOXAPARIN INJ 40 MG/0.4 ML SYR SQ SCH (16:27)
[2022-10-18] MEDS: CYCLOBENZAPRINE HCL 10 MG TAB PO PRN (20:34)
[2022-10-19] MEDS: CEFEPIME 2,000 MG in SYRINGE 0 ML IV SCH ×2 (06:14→13:43)
[2022-10-19] MEDS: LEVOTHYROXINE SODIUM 200 MCG TABLET PO SCH (06:15)
[2022-10-19] MEDS: BUDESONIDE 0.25 MG/2 ML VIAL (PULMICORT) NEB SCH (06:55)
[2022-10-19] MEDS: FORMOTEROL 20 MCG/2 ML VIAL NEB SCH (06:55)
[2022-10-19] MEDS: SODIUM CHLOR 7% 4 ML NEB NEB SCH (06:56)
[2022-10-19] MEDS: ACETYLCYSTEINE 20% INHAL SOLN 4ML ***DISPENSED BY RESP. INH SCH (06:56)
[2022-10-19] MEDS: guaiFENesin 600 MG TABCR PO SCH (08:26)
[2022-10-19] MEDS: SUCRALFATE 1 GM TAB PO SCH ×3 (08:27→17:00)
[2022-10-19] MEDS: carvediloL 25 MG TAB PO SCH (08:27)
[2022-10-19] MEDS: CYANOCOBALAMIN (B-12) 500 MCG TABLET PO SCH (08:27)
[2022-10-19] MEDS: ADVANCED PROBIOTIC 1250 MG CAPSULE PO SCH (08:28)
[2022-10-19] MEDS: LOSARTAN POTASSIUM 50 MG TAB PO SCH (08:28)
[2022-10-19] MEDS: PANTOprazole 40 MG TAB PO SCH (08:31)
[2022-10-19] MEDS: amLODIPine BESYLATE 5 MG TAB PO SCH (08:31)
[2022-10-19] MEDS: MAGNESIUM OXIDE 400 MG TAB PO SCH (08:31)
[2022-10-19] MEDS: TRIAMCINOLONE ACET 0.1% CR 15 GM TUBE TOP SCH (08:33)
[2022-10-19] MEDS: INSULIN ASPART PER UNIT CHARGE SC SCH ×3 (08:35→17:01)
[2022-10-19] MEDS ORDERED: predniSONE 20 MG TAB PO SCH (09:00)
[2022-10-19 10:07] LABS: BUN Creatinine Ratio 19.3 (10-20); Calcium 7.9 mg/dl (8.6-10.3); Creatinine Clr Calc Pharmacy 70.3 ml/min; Est GFR (African American) 85.2 ml/min; Est GFR (Non-African American) 73.5 ml/min; Magnesium 1.8 mg/dl (1.7-2.4); Phosphorus 2.7 mg/dl (2.5-4.9); Potassium 3.6 mmol/L (3.5-5.1)
[2022-10-19] MEDS ORDERED: POTASSIUM CHLORIDE CRTAB 20 MEQ TABCR PO STA (11:23)
--- NOTE | 2022-10-19 13:01 | Discharge Summary ---
Date of Service October 19, 2022 Admission HPI Per Admitting Provider This is a 66-year-old female with PMH of history of thyroid/throat cancer s/p laryngectomy with tracheostomy, pancreatic cancer s/p Whipple procedure, type 2 diabetes, COPD, DVT status post surgical procedure, hypertension, hyperlipidemia and other medical problems listed below who presents with shortness of breath starting yesterday afternoon. Patient was in normal state of health until she started to feel tired, rundown and developed shortness of breath. Is not on oxygen at baseline. Denies any increased sputum production from trachea. Denies any known sick contacts. In addition to shortness of breath, endorsing diarrhea since yesterday. No fever, chills, lightheadedness, headache, chest pain, nausea, vomiting, abdominal pain, dysuria or constipation. Did not take any of her home medications this morning aside from levothyroxine. Admission Exam Per Admitting Provider General Appearance:WD/WN, vitals as above, NAD, sitting up in bed, appears ill, able to communicate with vocal prosthesis device Head: normocephalic, atraumatic Eyes:normal inspection, PERRL, conjunctivae normal, anicteric sclerae ENT: external ear and nose normal, oropharynx normal Neck: normal visual inspection, + trach with oxygen collar Respiratory:increased respiratory effort, decreased breath sounds throughout, no wheeze or rales. + accessory muscle use Cardiovascular: tachycardic rate, regular rhythm, normal peripheral pulses, no BLE edema. Vessels: no JVD Chest: normal inspection of chest Abdomen/GI: normal bowel sounds, soft, nontender, no hepatosplenomegaly Extremities/Musculoskeletal: no cyanosis or clubbing, extremities motor strength 5/5 Neurologic: PERRL, EOMI, accommodation nl, no face palsy, no dysarthria, CN's II-XI intact bilaterally and moves all extremities Psychiatric:A+Ox3, euthymic affect Skin: no rashes, normal color, warm/dry Principal Diagnosis Acute hypoxic respiratory failure + Parainfluenza 3 COPD exacerbation Discharge Exam General Appearance:WD/WN, in NAD, able to communicate with vocal prosthesis device Head: normocephalic, atraumatic Eyes:normal inspection, PERRL, EOMI. ENT: external ear and nose normal, oropharynx normal Neck: + trach with oxygen collar Respiratory: + diffuse rhonchi, improved air entry Cardiovascular: rrr Chest: normal inspection of chest Abdomen/GI: normal bowel sounds, soft, nontender Extremities/Musculoskeletal:extremities motor strength 5/5 Neurologic: PERRL, EOMI, no face palsy, moves all extremities Psychiatric:A+Ox3, euthymic affect Skin: no rashes, normal color, warm/dry Discharge Data Allergies Allergy/AdvReac Type Severity Reaction Status Date / Time NSAIDS (Non-Steroidal Allergy Unknown Ulcer & Verified 07/30/22 19:02 Anti-Inflamma anemia zolpidem [From Ambien] Allergy Unknown pysch Verified 07/30/22 19:02 complications, dizzy hydrochlorothiazide AdvReac Acute Verified 07/30/22 19:02 kidney injury rosuvastatin [From Crestor] AdvReac Elavated Verified 07/30/22 19:02 liver function test Consultations 10/15/22 13:19 ED Decision to Admit Stat 10/15/22 14:32 Consult Pulmonology Routine Ordered Studies 10/15/22 11:23 CT angio chest PE protocol Stat IMPRESSION: 1. Significantly motion compromised examination. 2. There is no evidence of central pulmonary embolus in the main, lobar, or proximal segmental pulmonary arteries. 3. Circumferential wall thickening of the trachea and central airways with surrounding infiltration is similar to previous. There is narrowing of the trachea below the thoracic inlet. Correlate clinically for evidence of a nonspecific tracheitis possible tracheal stenosis. This could be further assessed with bronchoscopy if clinically warranted. 4. There is no airspace consolidation typical for pneumonia or pleural effusion. 5. Intraluminal debris is noted in the trachea and central airways. Correlate clinically for evidence of aspiration . 6. Cardiomegaly. 7. Solid and groundglass nodules in the upper lobes are similar to previous. Follow-up is recommended as per the Fleischner criteria. Hospital Course (1) URI (upper respiratory infection): (2) Chronic obstructive pulmonary disease: (3) Status post tracheostomy: (4) Hypertension: (5) History of thyroid cancer: (6) History of pancreatic cancer: (7) Acute and chronic respiratory failure with hypoxia: Plan This is a 66 yo F with history of thyroid/throat cancer s/p laryngectomy with tracheostomy, pancreatic cancer s/p Whipple procedure, type 2 diabetes, COPD, DVT status post surgical procedure, hypertension, hyperlipidemia and other medical problems listed below who presents with shortness of breath starting yesterday afternoon found to have acute hypoxic respiratory failure and URI. Acute hypoxic respiratory failure Parainfluenza 3 virus S/p trach Hypoxic in 80s initially, dropped to 70s with exertion. Afebrile, no leukocytosis. Parainfluenza 3 detected on PCR Sputum cultx - normal gelacio Chest CTA with no evidence of pulmonary embolus, correlate clinically for evidence of nonspecific tracheitis possible tracheal stenosis. Intraluminal debris noted in the trachea and central airways and mucous plugging in lower air ways Continue supplemental O2, nebs, mucinex. Given empiric cefepime in ED, continued - finished Abx course Pulmonary medicine consulted - Continue with hypertonic saline nebulized along with Mucinex and chest vest therapy while in the hospital - Brovana/Perforomist as well as budesonide nebulized at home - switch to PO prednisone and titrate off Follow up w/ PCP and pulmonary medicine. Diarrhea Present with virus. Added stool cx HTN Continue amlodipine, carvedilol and losartan Hypokalemia Hypomagnesemia replace and monitor Psoriasis Cont clobetasol topically BID DM II A1c 7.5 from September 2022 Hold home agents SSI while in-patient BSG AC HS Total Time Total Time Spent Total Time Spent (In Minutes): 40 Discharge Plan Discharge Items Patient Disposition: Home - Self-Care Reason For Visit: HYPOXIA, URI Discharge Diagnosis: Acute hypoxic respiratory failure + Parainfluenza 3 COPD exacerbation Activity: Per Instructions section Non-emergency contact: Primary Care Provider Call non-emergency contact if: you have any medication questions and your symptoms worsen Follow-up/Referrals: Dr Perfecto Contreras [Other] (Date & Time 12/11/2022 9:00 AM Provider Perfecto Contreras MD Department Pulmonary Medicine, [facility] ) Orlin Castro MD [Primary Care Provider] - (Date & Time 10/26/2022 12:00 PM Provider Orlin Castro MD Department General Internal Medicine [facility] ) Diet: Carb Consistent or DM2 and Heart Healthy Addtl Attending Provider Instructions: Follow-up with your primary care doctor, the appointment is scheduled for you for October 26. You should also follow-up with your netbackup engineer. For next week, recommend to continue taking guaifenesin/Mucinex, and using hypertonic salinenebulized, to help with clearance of mucus. Take prednisone, 30 mg for next 2 days, then take prednisone 20 mg for next 2 days. You were started on new nebulizing medication, budesonide and formoterol. Continue using them until further discussed with your netbackup engineer. Pending Studies at Discharge: Yes Studies:: Final blood culture results Stand-Alone Forms: My [facility], Smoking Cessation Medications and DC Order Prescriptions: New formoterol fumarate [Perforomist] 20 mcg/2 mL Solution For Nebulization 20 mcg NEB BIDR Qty: 60 0RF sodium chloride 7 % Solution For Nebulization 4 ml NEB BIDR 7 Days Qty: 120 0RF Rx Instructions: only use for 1 week Advanced Probiotic 625 mg (10 billion cell) Capsule 2 cap PO DAILY Qty: 14 0RF budesonide 0.25 mg/2 mL Suspension For Nebulization 0.25 mg NEB BIDR Qty: 60 0RF guaifenesin [Mucinex] 600 mg Tablet Extended Release 12hr 1,200 mg PO Q12 Qty: 20 0RF prednisone 10 mg tablet 10 mg PO DIRECTED Qty: 10 0RF Rx Instructions: Take 3 tabs for next 2 days, then 2 tabs for 2 days Continued triamcinolone acetonide 0.1 % cream 1 appln TOP BID pantoprazole [Protonix] 40 mg tablet,delayed release (DR/EC) 40 mg PO QAM losartan [Cozaar] 100 mg tablet 100 mg PO QAM cyanocobalamin (vitamin B-12) 500 mcg tablet,disintegrating 500 mcg SL BID cyclobenzaprine 10 mg tablet 10 mg PO HS PRN (Reason: Muscle Spasm) sucralfate 1 gram tablet 1 g PO QID Spiriva Respimat 2.5 mcg/actuation mist 2 inh INHALATION QAM Rx Instructions: need to clarify if started yet or not repaglinide 1 mg Tablet 1 mg PO BID Rx Instructions: Take 1 tab before breakfast & supper carvedilol 25 mg tablet 25 mg PO BID levothyroxine 200 mcg tablet 200 mcg PO DAILY clobetasol [Temovate] 0.05 % Ointment 1 applic TOPICAL BID PRN (Reason: flare ups) Rx Instructions: apply to affected areas on arms & feet. Start 07/21/2022. albuterol sulfate 2.5 mg /3 mL (0.083 %) Solution For Nebulization 2.5 mg INHALATION DIRECTED (DME) Dexcom G6 Sensor Device MISCELLANEOUS amlodipine 10 mg tablet 10 mg PO DAILY metformin 1,000 mg tablet 1,000 mg PO BID Discharge Orders: Discharge Order (Routine); Ordered 10/19/22 Ordered By: Varghese Simpson Admission Data Admit Date/Time: 10/15/22 13:30 Attending Provider: Varghese Simpson Admit Provider: Tatiana Davies Primary Care Provider: Orlin Castro Other Providers: Tatiana Davies ; Cordell Stovall Other Interventions: Discharge Summary Assessment (RN) Last Done: 10/19/22 13:06
[2022-10-19] MEDS ORDERED: hydrALAZINE HCL 25 MG TAB PO STA (16:25)
[2022-10-19] MEDS: ENOXAPARIN INJ 40 MG/0.4 ML SYR SQ SCH (16:55)
== END 2022-10-19 17:44 | disposition home or self-care (01) | DRG 189 ==
LOC: ED 08:47 → 2S 13:30 → SUATTDRO 13:30 → 2S 15:56
DX: J43.2 Centrilobular emphysema; Z20.822 Contact with and (suspected) exposure to COVID-19; R19.7 Diarrhea, unspecified; Z85.850 Personal history of malignant neoplasm of thyroid; J96.21 Acute and chronic respiratory failure with hypoxia; J44.1 Chronic obstructive pulmonary disease with (acute) exacerbation; E87.6 Hypokalemia; Z85.07 Personal history of malignant neoplasm of pancreas; Z79.890 Hormone replacement therapy; E83.42 Hypomagnesemia; J44.0 Chronic obstructive pulmonary disease with (acute) lower respiratory infection; E11.9 Type 2 diabetes mellitus without complications; Z88.8 Allergy status to other drugs, medicaments and biological substances; R91.8 Other nonspecific abnormal finding of lung field; Z79.899 Other long term (current) drug therapy; Z86.718 Personal history of other venous thrombosis and embolism; Z88.6 Allergy status to analgesic agent; E78.5 Hyperlipidemia, unspecified; J20.4 Acute bronchitis due to parainfluenza virus; Z93.0 Tracheostomy status; L40.9 Psoriasis, unspecified; Z79.84 Long term (current) use of oral hypoglycemic drugs; I10 Essential (primary) hypertension

== ENCOUNTER 2023-06-16 18:12 | Inpatient (IN) ==
[2023-06-16 18:53] LABS: Base Excess VBG -1.3 mEq/L; HCO3 VBG 25 mmol/L; Oxygen Saturation VBG 83.2 %; PCO2 VBG 46 mmHg (38-50); PO2 VBG 54 mmHg; pH VBG 7.34 (7.36-7.41)
[2023-06-16] MEDS ORDERED: methylPREDNISolone 125 MG/2 ML VIAL IV STA (19:10)
[2023-06-16] MEDS ORDERED: ALBUT/IPRATROP 3MG/0.5MG NEB 3 ML VIAL NEB ONE (19:11)
[2023-06-16] MEDS ORDERED: SODIUM CHLORIDE 0.9% 1,000 ML IV SCH (19:15)
[2023-06-16 19:26] LABS: Basophils # (auto) 0.11 K/uL (0.00-0.20); Basophils % (auto) 0.8 %; Eosinophils # (auto) 0.56 K/uL (0.00-0.50); Eosinophils % (auto) 4.3 %; Hematocrit (blood only) 39.5 % (37.0-47.0); Hemoglobin 13.5 g/dl (12.0-16.0); Immature Granulocytes # (auto) 0.04 K/uL (0.01-0.20); Immature Granulocytes % (auto) 0.3 %; Lymphocytes # (auto) 2.36 K/uL (1.20-3.40); Lymphocytes % (auto) 18.1 %; Mean Corpuscular Hemoglobin 28.7 pg (25.0-34.0); Mean Corpuscular Hgb Conc 34.2 g/dL (32.0-36.0); Mean Platelet Volume 10.8 fL (9.4-12.4); Monocytes # (auto) 0.91 K/uL (0.11-0.59); Neutrophils # (auto) 9.05 K/uL (1.40-6.50); Neutrophils % (auto) 69.5 %; Platelet Count 376 K/uL (130-400); RDW Coefficient of Variation 13.2 % (11.5-14.5); RDW Standard Deviation 40.7 fL (36.4-46.3); White Blood Count 13.03 K/ul (4.8-10.8)
[2023-06-16 19:54] LABS: Alanine Aminotransferase 83 U/L (7-52); Albumin Level 4.1 gm/dl (3.4-5.0); Alkaline Phosphatase 206 U/L (34-104); Anion Gap 10 (3-11); BUN Creatinine Ratio 14.2 (10-20); Bilirubin,Total 0.6 mg/dl (0.2-1.0); Blood Urea Nitrogen 16 mg/dl (6-23); Calcium 8.3 mg/dl (8.6-10.3); Carbon Dioxide 24 mmol/L (21-32); Chloride 103 mmol/L (98-107); Est GFR (African American) 58.7 ml/min; Est GFR (Non-African American) 50.6 ml/min; Glucose 113 mg/dl (70-99(Fasting)); Magnesium 1.6 mg/dl (1.7-2.4); Sodium 137 mmol/L (136-145); Total Protein 7.5 gm/dl (6.0-8.3)
[2023-06-16 20:04] LABS: Troponin I High Sensitivity 6.1 pg/ml (0-14)
--- NOTE | 2023-06-16 20:21 | Emergency Department Note ---
Impression & Plan COPD exacerbation, Hypoxia ED Provider Note Diagnosis: COPD exacerbation, hypoxia Disposition: Admit CHIEF COMPLAINT: Shortness of breath HPI: Patient is a 67-year-old female presenting with complaint of shortness of breath. Patient has history of cancer causing need for trach. Patient states she does not use oxygen at baseline. Patient requiring trach collar at this time and DuoNeb treatments by EMS prior to arrival. Patient's symptoms started within the past 24 hours time. Patient has not noticed any fevers. Patient does not know any sick contacts. Patient wheezing diffusely. Patient denies any active chest pain or abdominal pain. PAST MEDICAL HISTORY: See Below PAST SURGICAL HISTORY: See Below SOCIAL HISTORY: See Below HOME MEDICATIONS: See Below ALLERGIES: See Below VITALS: See Below PHYSICAL EXAMINATION: GENERAL: Well appearing, well nourished, NAD, non-toxic. EYE EXAM: Normal conjunctiva. OROPHARYNX: Moist mucus membranes. Grossly normal dentition. NECK: Supple, trach present LUNGS: Wheezing diffusely HEART: NSR ABDOMEN: Abdomen soft, non-tender, normo-active bowel sounds, no masses, no rebound or guarding BACK: No CVA TTP. SKIN: No rashes and no bruising. UPPER EXTREMITIES: Upper extremities are grossly normal LOWER EXTREMITIES: Grossly normal, no edema. NEURO EXAM: A&O x3,, normal speech, moves all 4 extremities PSYCH: Cooperative MEDICAL DECISION MAKING: Reviewed external documents: History obtained from: Patient ER Course: Patient 67-year-old female with history of throat cancer presenting with trach for many years time with cancer in remission reportedly with shortness of breath. Patient states over the past 1 to 2 days time she has increased work of breathing. Patient wheezing on exam. Patient given 2 DuoNebs prior to arrival. Patient requiring trach collar due to hypoxia. Patient after Solu-Medrol and hour-long DuoNeb treatment has decreased work of breathing and looks comfortable however still requiring oxygen support. Patient's chest x-ray does not show significant pneumonia. Patient's viral panel is negative. Patient will be given prophylactic Zithromax due to COPD exacerbation. Patient's case jose with hospitalist service accepts patient further treatment and evaluation Labs (independently interpreted) are significant for: No significant electrolyte abnormality, lactate level negative Imaging results (independently interpreted): Chest x-ray without pneumonia EKG interpretation (independently interpreted): Sinus tachycardia no ST segment elevation or depression Medications given: Solu-Medrol, DuoNeb Consultants: Hospitalist Triage Nursing notes reviewed and agree them. Vital Signs: reviewed and remarkable for: Hypoxia Past Med/Surg History Medical History Adrenal adenoma Asthma Chronic obstructive pulmonary disease CKD (chronic kidney disease), stage III Coagulopathy Diabetes DVT (deep venous thrombosis) WITH SURGERY TRACH 2004-WAS ON BLOOD THINNER FOR A PERIOD OF TIME-THEN OFF-NO ISSUES SINCE History of colon cancer Dx'ed in 2002 (has familial adenomatous polyposis) S/p ileostomy and then J pouch procedure No chemo or XRT History of pancreatic cancer 2016 S/p Whipple procedure No chemo or XRT History of throat cancer Dxed 2006- s/p laryngectomy with trach placement No chemo or XRT History of thyroid cancer Papillary thyroid carcinoma (with throat cancer per patient) 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 S/p stomaplasty (11/2020) and tracheostoma revision (05/2021) S/p thyroidectomy No chemo or XRT Hyperlipidemia Hypertension Hypothyroidism associated with surgical procedure Hypoxia Murmur, cardiac F/U DR DEE ACEVEDO No murmur per routine 06/2021 cardio visit SOB (shortness of breath) on exertion 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 No current issues Surgical History History of bowel resection WITH J POUCH History of colonoscopy History of esophagogastroduodenoscopy (EGD) History of hernia repair 12/15/21 @ [facility] History of radical neck dissection WITH TRACHEOSTOMY-2004 History of thyroidectomy History of Whipple procedure X 2-LAST 2012 Family History Family/Other Heart disease Lung disease Cancer Father Family hx of colon cancer Sister Family hx of colon cancer Other No family history of adverse response to anesthesia Social History Smoking Status: Former smoker Tobacco Type: Cigarettes Second Hand Exposure: No; Do You Dip or Chew Tobacco: No; Hx Alcohol Use: No Hx Substance Use: No Preferred Language: [place] Communication Ability: Effective Communication Ability Comment: Patient uses a Cervox since she has 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 Child Neurologist Required: No Beliefs That Will Affect Care: None marital status: Current Living Situation: Alone current occupational status: disabled Feels Safe at Home: Yes Assistive Devices: Nebulizer and Other Allergies Allergies Allergy/AdvReac Type Severity Reaction Status Date / Time NSAIDS (Non-Steroidal Allergy Intermediate Ulcer & Verified 12/17/22 08:36 Anti-Inflamma anemia zolpidem [From Ambien] Allergy Mild pysch Verified 12/17/22 08:36 complications, dizzy hydrochlorothiazide AdvReac Intermediate Acute Verified 12/17/22 08:36 kidney injury rosuvastatin [From Crestor] AdvReac Intermediate Elavated Verified 12/17/22 08:36 liver function test Home Meds Home Medications Medication Instructions Recorded Confirmed losartan 100 mg tablet (Cozaar) 100 mg PO QAM 08/09/19 06/16/23 pantoprazole 40 mg tablet,delayed 40 mg PO QAM 08/09/19 06/16/23 release (Protonix) triamcinolone acetonide 0.1 % 1 appln topical BID 08/09/19 06/16/23 topical cream repaglinide 1 mg tablet 0.5 mg PO .PM SNACK 11/27/21 06/16/23 amlodipine 10 mg tablet 10 mg PO QAM 07/30/22 06/16/23 blood-glucose sensor (Dexcom G6 07/30/22 06/16/23 Sensor device) carvedilol 25 mg tablet 25 mg PO BID 07/30/22 06/16/23 clobetasol 0.05 % topical ointment 1 applic topical BID PRN flare ups 07/30/22 06/16/23 (Temovate) levothyroxine 200 mcg tablet 200 mcg PO QAM 07/30/22 06/16/23 metformin 1,000 mg tablet 1,000 mg PO BID 07/30/22 06/16/23 cyclobenzaprine 10 mg tablet 10 mg PO HS PRN Muscle Spasm 10/15/22 06/16/23 sucralfate 1 gram tablet 1 g PO ACHS 10/15/22 06/16/23 tiotropium bromide 2.5 2 inh inhalation QAM 10/15/22 06/16/23 mcg/actuation mist for inhalation (Spiriva Respimat) beclomethasone dipropionate 80 1 inh inhalation AMHS 06/16/23 06/16/23 mcg/actuation HFA breath activated aerosol (Qvar RediHaler) budesonide 0.25 mg/2 mL suspension 0.25 mg NEB DIRECTED PRN 06/16/23 06/16/23 for nebulization Shortness Of Breath Or Wheezing cyanocobalamin (vitamin B-12) 1,000 mcg PO DAILY 06/16/23 06/16/23 1,000 mcg tablet (Vitamin B-12) ezetimibe 10 mg tablet 10 mg PO QAM 06/16/23 06/16/23 formoterol fumarate 20 mcg/2 mL 20 mcg NEB BIDR PRN Shortness Of 06/16/23 06/16/23 solution for nebulization Breath Or Wheezing (Perforomist) ipratropium 0.5 mg-albuterol 3 mg 3 ml inhalation Q6 PRN Shortness 06/16/23 06/16/23 (2.5 mg base)/3 mL nebulization Of Breath Or Wheezing soln repaglinide 2 mg tablet 2 mg PO BIDM 06/16/23 06/16/23 Results & Data (ED) Vital Signs Vital Signs - 24 hr 06/16/23 18:29 06/16/23 18:35 06/16/23 18:40 Temperature 37.0 C Temperature Source Oral Pulse Rate 90 Pulse Rate [Apical] Respiratory Rate 22 Respiratory Effort / Characteristics Labored Labored Respiratory Pattern Regular Regular Blood Pressure 165/94 H Blood Pressure [Right Arm] Blood Pressure Mean 117 Blood Pressure Mean [Right Arm] Blood Pressure Position Semi-fowlers Pulse Oximetry 97 100 Oxygen Delivery Method Non-rebreather Trach Collar Trach Collar Oxygen Flow Rate 5 Fraction of Inspired Oxygen Sepsis Recent Fever Within 48 Hours No Sepsis New/Unexplained Change in Mental Status N/A Sepsis Action Taken by Nursing No Action Required Oxygen Flow Rate - Titration 12 Fraction of Inspired Oxygen - Titration 80 06/16/23 19:03 06/16/23 19:07 06/16/23 19:30 Temperature Temperature Source Pulse Rate 84 Pulse Rate [Apical] 74 83 Respiratory Rate 16 18 Respiratory Effort / Characteristics Respiratory Pattern Blood Pressure Blood Pressure [Right Arm] 147/100 H 152/91 H Blood Pressure Mean Blood Pressure Mean [Right Arm] 115 111 Blood Pressure Position Pulse Oximetry 100 100 Oxygen Delivery Method Trach Collar Trach Collar Oxygen Flow Rate 12 12 Fraction of Inspired Oxygen Sepsis Recent Fever Within 48 Hours Sepsis New/Unexplained Change in Mental Status Sepsis Action Taken by Nursing Oxygen Flow Rate - Titration Fraction of Inspired Oxygen - Titration 06/16/23 20:00 06/16/23 20:39 06/16/23 21:30 Temperature Temperature Source Pulse Rate Pulse Rate [Apical] 75 76 86 Respiratory Rate 16 22 24 Respiratory Effort / Characteristics Non-Labored Spontaneous Respiratory Pattern Blood Pressure Blood Pressure [Right Arm] 164/93 H 164/98 H Blood Pressure Mean Blood Pressure Mean [Right Arm] 116 120 Blood Pressure Position Pulse Oximetry 100 100 98 Oxygen Delivery Method Trach Collar Trach Collar Trach Collar Oxygen Flow Rate 12 15 10 Fraction of Inspired Oxygen 50 Sepsis Recent Fever Within 48 Hours Sepsis New/Unexplained Change in Mental Status Sepsis Action Taken by Nursing Oxygen Flow Rate - Titration Fraction of Inspired Oxygen - Titration Laboratory Data 06/16/23 18:23 06/16/23 20:00 Lab Results 06/16/23 06/16/23 06/16/23 Range/Units 18:23 19:25 19:37 WBC 13.03 H (4.8-10.8) K/ul RBC 4.70 (4.20-5.40) M/uL Hgb 13.5 (12.0-16.0) g/dl Hct 39.5 (37.0-47.0) % MCV 84.0 (80.0-100.0) fL MCH 28.7 (25.0-34.0) pg MCHC 34.2 (32.0-36.0) g/dL RDW Std Deviation 40.7 (36.4-46.3) fL RDW Coeff of Monika 13.2 (11.5-14.5) % Plt Count 376 (130-400) K/uL MPV 10.8 (9.4-12.4) fL Immature Gran % (Auto) 0.3 % Neut % (Auto) 69.5 % Lymph % (Auto) 18.1 % [place] % (Auto) 7.0 % Eos % (Auto) 4.3 % Baso % (Auto) 0.8 % Neut # (Auto) 9.05 H (1.40-6.50) K/uL Lymph # (Auto) 2.36 (1.20-3.40) K/uL [place] # (Auto) 0.91 H (0.11-0.59) K/uL Eos # (Auto) 0.56 H (0.00-0.50) K/uL Baso # (Auto) 0.11 (0.00-0.20) K/uL Immature Gran # (Auto) 0.04 (0.01-0.20) K/uL VBG pH 7.34 L (7.36-7.41) VBG pCO2 46 (38-50) mmHg VBG pO2 54 mmHg VBG HCO3 25 mmol/L VBG O2 Saturation 83.2 % VBG Base Excess -1.3 mEq/L Sodium 137 (136-145) mmol/L Potassium TNP Chloride 103 (98-107) mmol/L Carbon Dioxide 24 (21-32) mmol/L Anion Gap 10 (3-11) BUN 16 (6-23) mg/dl Creatinine 1.13 (0.6-1.2) mg/dl Est Cr Clr Drug Dosing 49.0 ml/min Est GFR ( Amer) 58.7 ml/min Est GFR (Non-Af Amer) 50.6 ml/min BUN/Creatinine Ratio 14.2 (10-20) Glucose 113 H (70-99(Fasting)) mg/dl Lactate 0.8 (0.4-2.0) mmol/L Calcium 8.3 L (8.6-10.3) mg/dl Magnesium 1.6 L (1.7-2.4) mg/dl Total Bilirubin 0.6 (0.2-1.0) mg/dl Direct Bilirubin TNP AST TNP ALT 83 H (7-52) U/L Alkaline Phosphatase 206 H (34-104) U/L Troponin I High Sens 6.1 (0-14) pg/ml Total Protein 7.5 (6.0-8.3) gm/dl Albumin 4.1 (3.4-5.0) gm/dl Procalcitonin 0.44 (0-0.5) ng/ml Adenovirus (PCR) Not Detected (NotDetected) B. pertussis DNA (PCR) Not Detected (NotDetected) B.parapertussis DNA PCR Not Detected (NotDetected) C. pneumoniae DNA (PCR) Not Detected (NotDetected) Coronavirus OC43 (PCR) Not Detected (NotDetected) Coronavirus HKU1 (PCR) Not Detected (NotDetected) Coronavirus 229E (PCR) Not Detected (NotDetected) SARS-CoV-2 (PCR) Not Detected (NotDetected) Coronavirus NL63 (PCR) Not Detected (NotDetected) Human Metapneumovir PCR Not Detected (NotDetected) Influenza Type A (PCR) Not Detected (NotDetected) Influenza Type B (PCR) Not Detected (NotDetected) M. pneumoniae (PCR) Not Detected (NotDetected) Parainfluenza 1 (PCR) Not Detected (NotDetected) Parainfluenza 2 (PCR) Not Detected (NotDetected) Parainfluenza 3 (PCR) Not Detected (NotDetected) Parainfluenza 4 (PCR) Not Detected (NotDetected) RSV (PCR) Not Detected (NotDetected) Entero/Rhino (PCR) Not Detected (NotDetected) 06/16/23 Range/Units 20:00 WBC (4.8-10.8) K/ul RBC (4.20-5.40) M/uL Hgb (12.0-16.0) g/dl Hct (37.0-47.0) % MCV (80.0-100.0) fL MCH (25.0-34.0) pg MCHC (32.0-36.0) g/dL RDW Std Deviation (36.4-46.3) fL RDW Coeff of Monika (11.5-14.5) % Plt Count (130-400) K/uL MPV (9.4-12.4) fL Immature Gran % (Auto) % Neut % (Auto) % Lymph % (Auto) % [place] % (Auto) % Eos % (Auto) % Baso % (Auto) % Neut # (Auto) (1.40-6.50) K/uL Lymph # (Auto) (1.20-3.40) K/uL [place] # (Auto) (0.11-0.59) K/uL Eos # (Auto) (0.00-0.50) K/uL Baso # (Auto) (0.00-0.20) K/uL Immature Gran # (Auto) (0.01-0.20) K/uL VBG pH (7.36-7.41) VBG pCO2 (38-50) mmHg VBG pO2 mmHg VBG HCO3 mmol/L VBG O2 Saturation % VBG Base Excess mEq/L Sodium (136-145) mmol/L Potassium 3.6 Chloride (98-107) mmol/L Carbon Dioxide (21-32) mmol/L Anion Gap (3-11) BUN (6-23) mg/dl Creatinine (0.6-1.2) mg/dl Est Cr Clr Drug Dosing ml/min Est GFR ( Amer) ml/min Est GFR (Non-Af Amer) ml/min BUN/Creatinine Ratio (10-20) Glucose (70-99(Fasting)) mg/dl Lactate (0.4-2.0) mmol/L Calcium (8.6-10.3) mg/dl Magnesium (1.7-2.4) mg/dl Total Bilirubin (0.2-1.0) mg/dl Direct Bilirubin AST 62 H ALT (7-52) U/L Alkaline Phosphatase (34-104) U/L Troponin I High Sens (0-14) pg/ml Total Protein (6.0-8.3) gm/dl Albumin (3.4-5.0) gm/dl Procalcitonin (0-0.5) ng/ml Adenovirus (PCR) (NotDetected) B. pertussis DNA (PCR) (NotDetected) B.parapertussis DNA PCR (NotDetected) C. pneumoniae DNA (PCR) (NotDetected) Coronavirus OC43 (PCR) (NotDetected) Coronavirus HKU1 (PCR) (NotDetected) Coronavirus 229E (PCR) (NotDetected) SARS-CoV-2 (PCR) (NotDetected) Coronavirus NL63 (PCR) (NotDetected) Human Metapneumovir PCR (NotDetected) Influenza Type A (PCR) (NotDetected) Influenza Type B (PCR) (NotDetected) M. pneumoniae (PCR) (NotDetected) Parainfluenza 1 (PCR) (NotDetected) Parainfluenza 2 (PCR) (NotDetected) Parainfluenza 3 (PCR) (NotDetected) Parainfluenza 4 (PCR) (NotDetected) RSV (PCR) (NotDetected) Entero/Rhino (PCR) (NotDetected) Administered Medications Azithromycin 500 mg/ Dextrose 255 mls @ 125 mls/hr IV ONE ONE Stop: 06/16/23 23:10 Last Admin: 06/16/23 21:53 Dose: 125 mls/hr Documented By: MAINE Magnesium Sulfate/Dextrose (Magnesium Sulfate / D5w) 1 gm in 100 mls @ 50 mls/hr IV Q2H LAURA Stop: 06/17/23 01:14 Last Admin: 06/16/23 21:35 Dose: 50 mls/hr Documented By: MAINE Discontinued Medications Albuterol (Albut/Ipratrop 3mg/0.5mg Neb 3 Ml Vial) 12 ml NEB ONE ONE; Protocol Stop: 06/16/23 19:12 Last Admin: 06/16/23 20:23 Dose: 12 ml Documented By: NIMO Carvedilol (Carvedilol 25 Mg Tab) 25 mg PO NOW ONE Stop: 06/16/23 21:46 Last Admin: 06/16/23 21:53 Dose: 25 mg Documented By: MAINE Sodium Chloride (Nss) 1,000 mls @ 999 mls/hr IV .Q1H1M LAURA Stop: 06/16/23 20:15 Last Infusion: 06/16/23 20:44 Dose: Infused Documented By: Admin: 06/16/23 19:40 Dose: 999 mls/hr Documented By: MAINE Methylprednisolone (Methylprednisolone 125 Mg/2 Ml Vial) 125 mg IV NOW STA Stop: 06/16/23 19:11 Last Admin: 06/16/23 19:39 Dose: 125 mg Documented By: MAINE Discharge Plan Visit Data Chief Complaint: Shortness of Breath/Dyspnea ED Provider: Matt Nguyen Discharge Problem: COPD exacerbation, Hypoxia Forms Stand Alone Forms: [facility] [employer] Prescriptions Prescriptions: No Action triamcinolone acetonide 0.1 % cream 1 appln TOP BID pantoprazole [Protonix] 40 mg tablet,delayed release (DR/EC) 40 mg PO QAM losartan [Cozaar] 100 mg tablet 100 mg PO QAM cyclobenzaprine 10 mg tablet 10 mg PO HS PRN (Reason: Muscle Spasm) sucralfate 1 gram tablet 1 g PO ACHS Spiriva Respimat 2.5 mcg/actuation mist 2 inh INHALATION QAM ipratropium-albuterol 0.5 mg-3 mg(2.5 mg base)/3 mL Solution For Nebulization 3 ml INHALATION Q6 PRN (Reason: Shortness Of Breath Or Wheezing) repaglinide 2 mg Tablet 2 mg PO BIDM Rx Instructions: TAKE WITH BREAKFAST & SUPPER budesonide 0.25 mg/2 mL suspension for nebulization 0.25 mg NEB DIRECTED PRN (Reason: Shortness Of Breath Or Wheezing) formoterol fumarate [Perforomist] 20 mcg/2 mL solution for nebulization 20 mcg NEB BIDR PRN (Reason: Shortness Of Breath Or Wheezing) cyanocobalamin (vitamin B-12) [Vitamin B-12] 1,000 mcg Tablet 1,000 mcg PO DAILY ezetimibe 10 mg tablet 10 mg PO QAM Qvar RediHaler 80 mcg/actuation HFA aerosol breath activated 1 inh INHALATION AMHS repaglinide 1 mg Tablet 0.5 mg PO .PM SNACK carvedilol 25 mg tablet 25 mg PO BID levothyroxine 200 mcg tablet 200 mcg PO QAM clobetasol [Temovate] 0.05 % Ointment 1 applic TOPICAL BID PRN (Reason: flare ups) Rx Instructions: apply to affected areas on arms & feet. Start 07/21/2022. (DME) Dexcom G6 Sensor Device MISCELLANEOUS amlodipine 10 mg tablet 10 mg PO QAM metformin 1,000 mg tablet 1,000 mg PO BID Referrals Referrals: Orlin Castro MD [Primary Care Provider] -
[2023-06-16 20:35] LABS: Potassium 3.6 mmol/L (3.5-5.1)
[2023-06-16 20:53] LABS: Adenovirus PCR Not Detected (NotDetected); Bordetella parapertussis PCR Not Detected (NotDetected); Bordetella pertussis PCR Not Detected (NotDetected); Chlamydia pneumoniae PCR Not Detected (NotDetected); Coronavirus 229E PCR Not Detected (NotDetected); Coronavirus CoV-2 (COVID19)PCR Not Detected (NotDetected); Coronavirus HKU1 PCR Not Detected (NotDetected); Coronavirus NL63 PCR Not Detected (NotDetected); Coronavirus OC43PCR Not Detected (NotDetected); Human Metapneumovirus PCR Not Detected (NotDetected); Influenza A PCR Not Detected (NotDetected); Influenza B PCR Not Detected (NotDetected); Mycoplasma pneumoniae PCR Not Detected (NotDetected); Parainfluenza Virus 1 PCR Not Detected (NotDetected); Parainfluenza Virus 2 PCR Not Detected (NotDetected); Parainfluenza Virus 3 PCR Not Detected (NotDetected); Parainfluenza Virus 4 PCR Not Detected (NotDetected); Respiratory Syncytial VirusPCR Not Detected (NotDetected); Rhinovirus/Enterovirus PCR Not Detected (NotDetected)
[2023-06-16] MEDS ORDERED: AZITHROMYCIN 500 MG in DEXTROSE 5% 250 ML IV ONE (21:08)
[2023-06-16] MEDS: MAGNESIUM SULFATE / D5W 1 GM/100 ML BAG IV SCH ×2 (21:35→23:19)
[2023-06-16] MEDS ORDERED: carvediloL 25 MG TAB PO ONE (21:45)
[2023-06-16] MEDS ORDERED: DOXYCYCLINE HYCLATE 100 MG in DEXTROSE 5% MINI-B 100 ML IV STA (22:07)
--- NOTE | 2023-06-16 22:08 | History & Physical Report ---
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 Medical telemetry CS, doxycycline Nebs RTC, prednisone course Pulmonology consult if without improvement Facilitate nighttime Coreg Basal bolus insulin, ISS BG goal 1 10-1 40, carb count coverage DVT prophylaxis per Lovenox subcu Full code Text document was generated using [employer] voice recognition software. It may contain grammatical or spelling errors. Kindly contact undersigned for clarification of any documentation item in question. History of Present Illness Chief Complaint: Worsening cough, shortness of breath Primary Care Provider: Orlin Castro MD History obtained from patient and records. Medical history significant for hypertension, hyperlipidemia, COPD, DM2 on oral medications, primary aldosteronism, recurrent thyroid cancer status post surgery/BRAND therapy, postsurgical hypothyroidism, history of post laryngectomy stoma stenosis status post stomaplasty, pancreatic cancer status post surgery, colon cancer status post surgery, GERD, history of Gross syndrome/FAP, history of MRSA as per records, past tobacco abuse. Last confinement October 2022 for COPD exacerbation secondary to parainfluenza illness. 2 days history of junky brown cough symptoms which shortness of breath. Worsening symptoms without chest pain. Denies aspiration. Wheezing at home. No known COVID-19 contacts. Patient has received COVID-19 vaccination. Azithromycin, Solu-Medrol and neb treatment administered at the ER. 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 Allergies Allergy/AdvReac Type Severity Reaction Status Date / Time NSAIDS (Non-Steroidal Allergy Intermediate Ulcer & Verified 12/17/22 08:36 Anti-Inflamma anemia zolpidem [From Ambien] Allergy Mild pysch Verified 12/17/22 08:36 complications, dizzy hydrochlorothiazide AdvReac Intermediate Acute Verified 12/17/22 08:36 kidney injury rosuvastatin [From Crestor] AdvReac Intermediate Elavated Verified 12/17/22 08: 36 liver function test Home Medications Medication Instructions Recorded Confirmed Type losartan 100 mg tablet (Cozaar) 100 mg PO QAM 08/09/19 06/16/23 History pantoprazole 40 mg tablet,delayed 40 mg PO QAM 08/09/19 06/16/23 History release (Protonix) triamcinolone acetonide 0.1 % 1 appln topical BID 08/09/19 06/16/23 History topical cream repaglinide 1 mg tablet 0.5 mg PO .PM SNACK 11/27/21 06/16/23 History amlodipine 10 mg tablet 10 mg PO QAM 07/30/22 06/16/23 History blood-glucose sensor (Dexcom G6 07/30/22 06/16/23 History Sensor device) carvedilol 25 mg tablet 25 mg PO BID 07/30/22 06/16/23 History clobetasol 0.05 % topical ointment 1 applic topical BID PRN flare ups 07/30/22 06/16/23 History (Temovate) levothyroxine 200 mcg tablet 200 mcg PO QAM 07/30/22 06/16/23 History metformin 1,000 mg tablet 1,000 mg PO BID 07/30/22 06/16/23 History cyclobenzaprine 10 mg tablet 10 mg PO HS PRN Muscle Spasm 10/15/22 06/16/23 History sucralfate 1 gram tablet 1 g PO ACHS 10/15/22 06/16/23 History tiotropium bromide 2.5 2 inh inhalation QAM 10/15/22 06/16/23 History mcg/actuation mist for inhalation (Spiriva Respimat) beclomethasone dipropionate 80 1 inh inhalation AMHS 06/16/23 06/16/23 History mcg/actuation HFA breath activated aerosol (Qvar RediHaler) budesonide 0.25 mg/2 mL suspension 0.25 mg NEB DIRECTED PRN 06/16/23 06/16/23 History for nebulization Shortness Of Breath Or Wheezing cyanocobalamin (vitamin B-12) 1,000 mcg PO DAILY 06/16/23 06/16/23 History 1,000 mcg tablet (Vitamin B-12) ezetimibe 10 mg tablet 10 mg PO QAM 06/16/23 06/16/23 History formoterol fumarate 20 mcg/2 mL 20 mcg NEB BIDR PRN Shortness Of 06/16/23 06/16/23 History solution for nebulization Breath Or Wheezing (Perforomist) ipratropium 0.5 mg-albuterol 3 mg 3 ml inhalation Q6 PRN Shortness 06/16/23 06/16/23 History (2.5 mg base)/3 mL nebulization Of Breath Or Wheezing soln repaglinide 2 mg tablet 2 mg PO BIDM 06/16/23 06/16/23 History Past Med/Surg History Medical History Adrenal adenoma Asthma Chronic obstructive pulmonary disease CKD (chronic kidney disease), stage III Coagulopathy Diabetes DVT (deep venous thrombosis) WITH SURGERY TRACH 2004-WAS ON BLOOD THINNER FOR A PERIOD OF TIME-THEN OFF-NO ISSUES SINCE History of colon cancer Dx'ed in 2002 (has familial adenomatous polyposis) S/p ileostomy and then J pouch procedure No chemo or XRT History of pancreatic cancer 2016 S/p Whipple procedure No chemo or XRT History of throat cancer Dxed 2006- s/p laryngectomy with trach placement No chemo or XRT History of thyroid cancer Papillary thyroid carcinoma (with throat cancer per patient) 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 S/p stomaplasty (11/2020) and tracheostoma revision (05/2021) S/p thyroidectomy No chemo or XRT Hyperlipidemia Hypertension Hypothyroidism associated with surgical procedure Hypoxia Murmur, cardiac F/U DR DEE ACEVEDO No murmur per routine 06/2021 cardio visit SOB (shortness of breath) on exertion 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 No current issues Surgical History History of bowel resection WITH J POUCH History of colonoscopy History of esophagogastroduodenoscopy (EGD) History of hernia repair 12/15/21 @ [facility] History of radical neck dissection WITH TRACHEOSTOMY-2004 History of thyroidectomy History of Whipple procedure X 2-LAST 2012 Family History Family/Other Heart disease Lung disease Cancer Father Family hx of colon cancer Sister Family hx of colon cancer Other No family history of adverse response to anesthesia Social History Smoking Status: Former smoker Tobacco Type: Cigarettes Second Hand Exposure: No; Do You Dip or Chew Tobacco: No; Hx Alcohol Use: No Hx Substance Use: No Preferred Language: Omani Communication Ability: Effective Communication Ability Comment: Patient uses a Cervox since she has 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 Beliefs That Will Affect Care: None marital status: Current Living Situation: Alone current occupational status: disabled Feels Safe at Home: Yes Safety Concerns: Feels Safe At This Time Assistive Devices: Nebulizer and Other Review of Systems Review of Systems: As per HPI, all other systems reviewed and negative Physical Exam Physical Exam: GENERAL: Slightly uncomfortable, pleasant, occasional use of electrolarynx, no respiratory distress SKIN: Normal color, warm HEENT: [place] palpebral conjunctivae, no ptosis, dry buccal mucosa NECK : Supple, neck stoma noted, no tenderness CHEST : Decreased breath sounds, diffuse expiratory wheezes, no tenderness HEART : RRR, no obvious murmurs ABDOMEN: Some distention, nontender EXTREMITIES : No LE swelling/tenderness, no other conspicuous deformities noted NEUROLOGIC : Coherent, no facial asymmetry, no other gross focality Results & Data Results & Data Vital Signs (Past 12 Hours) Vital Signs Temp Pulse Pulse Resp BP BP Pulse Ox 06/16/23 21:30 86 24 164/98 H 98 06/16/23 20:39 76 22 100 06/16/23 20:00 75 16 164/93 H 100 06/16/23 19:30 83 18 152/91 H 100 06/16/23 19:07 84 06/16/23 19:03 74 16 147/100 H 100 06/16/23 18:40 100 06/16/23 18:35 06/16/23 18:29 37.0 C 90 22 165/94 H 97 O2 Del Method O2 Flow Rate FiO2 06/16/23 21:30 Trach Collar 10 06/16/23 20:39 Trach Collar 15 50 06/16/23 20:00 Trach Collar 12 06/16/23 19:30 Trach Collar 12 06/16/23 19:07 06/16/23 19:03 Trach Collar 12 06/16/23 18:40 Trach Collar 06/16/23 18:35 Trach Collar 06/16/23 18:29 Non-rebreather 5 Laboratory Results Laboratory Results WBC 13.03 K/ul (4.8-10.8) H 06/16/23 18: RBC 4.70 M/uL (4.20-5.40) 06/16/23 18: Hgb 13.5 g/dl (12.0-16.0) 06/16/23 18: Hct 39.5 % (37.0-47.0) 06/16/23 18: MCV 84.0 fL (80.0-100.0) 06/16/23 18: MCH 28.7 pg (25.0-34.0) 06/16/23 18: MCHC 34.2 g/dL (32.0-36.0) 06/16/23 18: RDW Std Deviation 40.7 fL (36.4-46.3) 06/16/23 18: RDW Coeff of Monika 13.2 % (11.5-14.5) 06/16/23 18: Plt Count 376 K/uL (130-400) 06/16/23 18: MPV 10.8 fL (9.4-12.4) 06/16/23 18: Immature Gran % (Auto) 0.3 % 06/16/23 18: Neut % (Auto) 69.5 % 06/16/23 18: Lymph % (Auto) 18.1 % 06/16/23 18: [place] % (Auto) 7.0 % 06/16/23 18: Eos % (Auto) 4.3 % 06/16/23 18: Baso % (Auto) 0.8 % 06/16/23 18: Neut # (Auto) 9.05 K/uL (1.40-6.50) H 06/16/23 18: Lymph # (Auto) 2.36 K/uL (1.20-3.40) 06/16/23 18:23 [place] # (Auto) 0.91 K/uL (0.11-0.59) H 06/16/23 18:23 Eos # (Auto) 0.56 K/uL (0.00-0.50) H 06/16/23 18:23 Baso # (Auto) 0.11 K/uL (0.00-0.20) 06/16/23 18: Immature Gran # (Auto) 0.04 K/uL (0.01-0.20) 06/16/23 18:23 VBG pH 7.34 (7.36-7.41) L 06/16/23 18: VBG pCO2 46 mmHg (38-50) 06/16/23 18: VBG pO2 54 mmHg 06/16/23 18: VBG HCO3 25 mmol/L 06/16/23 18:23 VBG O2 Saturation 83.2 % 06/16/23 18: VBG Base Excess -1.3 mEq/L 06/16/23 18: Sodium 137 mmol/L (136-145) 06/16/23 18: Potassium 3.6 mmol/L (3.5-5.1) 06/16/23 20:00 Chloride 103 mmol/L (98-107) 06/16/23 18: Carbon Dioxide 24 mmol/L (21-32) 06/16/23 18:23 Anion Gap 10 (3-11) 06/16/23 18:23 BUN 16 mg/dl (6-23) 06/16/23 18: Creatinine 1.13 mg/dl (0.6-1.2) 06/16/23 18:23 Est Cr Clr Drug Dosing 49.0 ml/min 06/16/23 18:23 Est GFR ( Amer) 58.7 ml/min 06/16/23 18: Est GFR (Non-Af Amer) 50.6 ml/min 06/16/23 18:23 BUN/Creatinine Ratio 14.2 (10-20) 06/16/23 18:23 Glucose 113 mg/dl (70-99(Fasting)) H 06/16/23 18:23 Lactate 0.8 mmol/L (0.4-2.0) 06/16/23 19:25 Calcium 8.3 mg/dl (8.6-10.3) L 06/16/23 18: Magnesium 1.6 mg/dl (1.7-2.4) L 06/16/23 18: Total Bilirubin 0.6 mg/dl (0.2-1.0) 06/16/23 18:23 Direct Bilirubin TNP 06/16/23 18:23 AST 62 U/L (13-39) H 06/16/23 20:00 ALT 83 U/L (7-52) H 06/16/23 18:23 Alkaline Phosphatase 206 U/L (34-104) H 06/16/23 18:23 Troponin I High Sens 6.1 pg/ml (0-14) 06/16/23 18: Total Protein 7.5 gm/dl (6.0-8.3) 06/16/23 18: Albumin 4.1 gm/dl (3.4-5.0) 06/16/23 18: Procalcitonin 0.44 ng/ml (0-0.5) 06/16/23 18:23 Adenovirus (PCR) Not Detected (NotDetected) 06/16/23 19:37 B. pertussis DNA (PCR) Not Detected (NotDetected) 06/16/23 19:37 B.parapertussis DNA PCR Not Detected (NotDetected) 06/16/23 19:37 C. pneumoniae DNA (PCR) Not Detected (NotDetected) 06/16/23 19:37 Coronavirus OC43 (PCR) Not Detected (NotDetected) 06/16/23 19:37 Coronavirus HKU1 (PCR) Not Detected (NotDetected) 06/16/23 19:37 Coronavirus 229E (PCR) Not Detected (NotDetected) 06/16/23 19:37 SARS-CoV-2 (PCR) Not Detected (NotDetected) 06/16/23 19:37 Coronavirus NL63 (PCR) Not Detected (NotDetected) 06/16/23 19:37 Human Metapneumovir PCR Not Detected (NotDetected) 06/16/23 19:37 Influenza Type A (PCR) Not Detected (NotDetected) 06/16/23 19:37 Influenza Type B (PCR) Not Detected (NotDetected) 06/16/23 19:37 M. pneumoniae (PCR) Not Detected (NotDetected) 06/16/23 19:37 Parainfluenza 1 (PCR) Not Detected (NotDetected) 06/16/23 19:37 Parainfluenza 2 (PCR) Not Detected (NotDetected) 06/16/23 19:37 Parainfluenza 3 (PCR) Not Detected (NotDetected) 06/16/23 19:37 Parainfluenza 4 (PCR) Not Detected (NotDetected) 06/16/23 19:37 RSV (PCR) Not Detected (NotDetected) 06/16/23 19:37 Entero/Rhino (PCR) Not Detected (NotDetected) 06/16/23 19:37 Diagnostic Findings Chest x-ray as per my interpretation no obvious infiltrate EKG as per my interpretation : Rate 90, NSR, normal axis, no ischemia
[2023-06-16] MEDS ORDERED: PROMETHAZINE HCL 12.5 MG in SODIUM CHLORIDE 0.9% 50 ML IV PRN (22:15)
[2023-06-16] MEDS ORDERED: ACETAMINOPHEN 500 MG TAB PO PRN (22:15)
[2023-06-16] MEDS ORDERED: NSS + 20MEQ KCL 20 MEQ/1,000 ML BAG IV STA (22:20)
[2023-06-16] MEDS ORDERED: DEXTROSE 50% 50 ML SYRINGE IV PRN (23:59)
[2023-06-16] MEDS ORDERED: CARBOHYDRATES FOR HYPOGLYCEMIA PO PRN (23:59)
[2023-06-16] MEDS ORDERED: GLUCAGON FOR INJ 1 MG VIAL SQ PRN (23:59)
[2023-06-16] MEDS ORDERED: GLUCOSE 40% GEL 15 GM TUBE PO PRN (23:59)
[2023-06-16] MEDS ORDERED: GLUCOSE 10 TAB/TUBE PO PRN (23:59)
[2023-06-17] MEDS ORDERED: XOPENEX/ATROVENT 1.25mg/0.5MG NEB COMBO NEB SCH (01:00)
[2023-06-17] MEDS: LEVALBUTEROL 1.25 MG/3 ML NEB NEB SCH ×4 (01:09→20:00)
[2023-06-17] MEDS: IPRATROPIUM BROMIDE NEB SOLN 0.02% 2.5 ML VIAL INH SCH ×4 (01:09→20:00)
[2023-06-17] MEDS: INSULIN ASPART PER UNIT CHARGE SC SCH ×5 (01:09→20:26)
[2023-06-17] MEDS: LANTUS PER UNIT CHARGE SQ SCH ×3 (01:28→20:26)
[2023-06-17 05:01] LABS: Hematocrit (blood only) 39.1 % (37.0-47.0); Hemoglobin 13.2 g/dl (12.0-16.0); Mean Corpuscular Hemoglobin 28.6 pg (25.0-34.0); Mean Corpuscular Hgb Conc 33.8 g/dL (32.0-36.0); Mean Corpuscular Volume 84.8 fL (80.0-100.0); Platelet Count 310 K/uL (130-400); RDW Standard Deviation 40.4 fL (36.4-46.3); Red Blood Count 4.61 M/uL (4.20-5.40); White Blood Count 9.07 K/ul (4.8-10.8)
[2023-06-17 05:16] LABS: Albumin Globulin Ratio 1.3 (0.9-2); Albumin Level 3.8 gm/dl (3.4-5.0); BUN Creatinine Ratio 17.7 (10-20); Bilirubin,Total 0.5 mg/dl (0.2-1.0); Calcium 8.1 mg/dl (8.6-10.3); Creatinine Clr Calc Pharmacy 70.1 ml/min; Est GFR (African American) 90.4 ml/min; Globulin 2.9 gm/dl (2.5-4.0); Potassium 3.8 mmol/L (3.5-5.1); Total Protein 6.7 gm/dl (6.0-8.3)
[2023-06-17 06:10] LABS: Basophils # (auto) 0.02 K/uL (0.00-0.20); Basophils % (auto) 0.2 %; Immature Granulocytes # (auto) 0.05 K/uL (0.01-0.20); Immature Granulocytes % (auto) 0.6 %; Lymphocytes % (auto) 8.8 %; Monocytes # (auto) 0.03 K/uL (0.11-0.59); Monocytes % (auto) 0.3 %; Neutrophils # (auto) 8.17 K/uL (1.40-6.50); Neutrophils % (auto) 90.1 %
[2023-06-17] MEDS: SUCRALFATE 1 GM TAB PO SCH ×4 (06:38→20:27)
[2023-06-17] MEDS: LEVOTHYROXINE SODIUM 200 MCG TABLET PO SCH (06:38)
--- NOTE | 2023-06-17 07:17 | XRay Report ---
XR chest 1V portable HISTORY: 67 years-old Female Sepsis, hypoxia acute sepsis with hypoxia COMPARISON: 10/18/2022 TECHNIQUE: AP view of the chest FINDINGS: Cardiomediastinal and hilar silhouettes are within normal limits. No pneumothorax, pleural effusion o r airspace consolidation. Bones appear grossly intact. IMPRESSION: No acute process. ACT 112: Negative or not required by law. The above report was generated using voice recognition software. It may contain grammatical, syntax o r spelling errors. Electronically signed by: Mayo Batres M.D. 06/17/2023 7:16 AM
[2023-06-17] MEDS ORDERED: predniSONE 20 MG TAB PO SCH (09:00)
--- NOTE | 2023-06-17 09:00 | Electrocardiogram Report ---
Test Reason : Blood Pressure : / mmHG Vent. Rate : 088 BPM Atrial Rate : 088 BPM P-R Int : 134 ms QRS Dur : 082 ms QT Int : 416 ms P-R-T Axes : 059 009 041 degrees QTc Int : 503 ms Normal sinus rhythm Left atrial enlargement Prolonged QT Abnormal ECG When compared with ECG of 15-OCT-2022 08:55, HR has decreased by [address] abnormality no longer present Confirmed by Bebo Dolan [id number] on 06/17/2023 9:00:29 AM Referred By: REFERRED SELF Confirmed By:Bebo Dolan
[2023-06-17] MEDS: UMECLIDINIUM BROMIDE 62.5MCG/BLISTER 7 PUFFS/INHALER INH SCH (09:13)
[2023-06-17] MEDS: DOXYCYCLINE HYCLATE 100 MG CAP PO SCH ×2 (09:14→20:28)
[2023-06-17] MEDS: amLODIPine BESYLATE 5 MG TAB PO SCH (09:14)
[2023-06-17] MEDS: ENOXAPARIN INJ 40 MG/0.4 ML SYR SQ SCH (09:14)
[2023-06-17] MEDS: LOSARTAN POTASSIUM 50 MG TAB PO SCH (09:14)
[2023-06-17] MEDS: PANTOprazole 40 MG TAB PO SCH (09:14)
[2023-06-17] MEDS: carvediloL 25 MG TAB PO SCH ×2 (09:14→20:28)
--- OUTSIDE RECORDS SUMMARY | 2023-06-17 09:51 | External Medical Summary | Summary of Care ---
Author Name Unknown Organization [facility] Address [address] [place] [address] Phone [phone] Care Team Providers Care Battery Engineer Name Role Phone Orlin Castro MD Primary Care Provider + Reason for Visit * Reason Onset Date Comments Medication Pre-auth 06/07/2023 Repaglinide 1 MG Oral Tablet Encounter Details Date Type Department Care Team (Late st Contact Info) Description 06/07/2023 Telephone General Internal Medicine [facility] [address] [place] [address] Orlin Castro MD [address] [place] [address] Medication Pre-auth (Repaglinide 1 MG Oral... Allergies Active Allergy Reactions Criticality Noted Date Comments Zolpidem Tartrate Psych complications 6 Rosuvastatin 04/05/2020 Elevated lft Hydrochlorothiazide 12/29/2019 brenda Nsaids Other (Please comment) 04/14/2016 Gastric ulcer with anemia documented as of this encounter (statuses as of 06/08/2023) Medications Medication Sig Dispensed Refills Start Date End Date Status ferrous sulfate (FEOSOL) 325 (65 FE) MG Tablet TAKE ONE TABLET THREE TIMES DAILY 270 Tab 3 9 Active ONETOUCH DELICA LANCETS FINE MISC Use to test blood sugar 4 times daily dx e11.9 400 Each 3 9 Active Misc. Devices MISC Tracheostomy Care Kit #4601 1 Each 0 0 Active Vitamin B-12 1000 MCG Oral Tablet Take 1 Tab by mouth daily. 90 Tab 3 1 Active RawbotsTouch Verio Flex System w/Device Kit Use as directed. To test blood sugars up to 4 times a day Dx E11.22 1 Kit 0 1 Active Misc. Devices Laryngectomy tube, size 10LGT 3 Each 0 2 Active Misc. Devices Velcro Trach Ties for Laryngectomy Tube 15 Each 11 2 Active Sucralfate 1 GM Oral Tablet (Carafate)Indicatio ns:Gastritis, bile acid reflux Take by mouth 1 Tablet in the morning AND 1 Tablet at noon AND 1 Tablet in the evening AND 1 Tablet before bedtime. 360 Tablet 3 2 Active Compressor NebulizerIndication s:COPD, group B, by GOLD 2017 classification ([facility]) Inhale via nebulizer . Use as directed. 1 Each 1 2 Active Ipratropium-Albuter ol 0.5-2.5 (3) MG/3ML Inhalation Solution (Duoneb)Indications :COPD, group B, by GOLD 2017 classification ([facility]) Inhale via nebulizer 3 mL every 6 hours as needed for Wheezing. 360 mL 1 2 Active Breathe Comfort Humidifier Use as directed. Laryngectomy status. Use for humidification to Trach site 1 Each 2 3 Active Sodium Chloride 7 % Inhalation Nebulization Solution (Hyper-Allen) 4 ML VIA NEBULIZER TWICE DAILY FOR RESP. FOR 1 WEEK ONLY USE FOR 1 WEEK 0 3 Active Formoterol Fumarate 20 MCG/2ML Inhalation Nebulization Solution 0 3 Active Budesonide 0.25 MG/2ML Inhalation Suspension (Pulmicort) 0.25 mg. 0 3 Active Ezetimibe 10 MG Oral Tablet (Zetia)Indications: Mixed hyperlipidemia TAKE ONE TABLET BY MOUTH EVERY DAY IN THE MORNING 90 Tablet 3 3 12/10/19 24 Active amLODIPine Besylate 10 MG Oral Tablet (Norvasc)Indication s:Essential hypertension with goal blood pressure less than 140/90 TAKE ONE TABLET BY MOUTH EVERY DAY. 90 Tablet 3 3 09/16/19 24 Active Cyclobenzaprine HCl 10 MG Oral Tablet (Flexeril)Indicatio ns:Spasm of muscle TAKE ONE TABLET BY MOUTH AT BEDTIME NEEDED FOR MUSCLE SPASMS. 90 Tablet 3 3 09/16/19 24 Active Pantoprazole Sodium 40 MG Oral Tablet Delayed Release (Protonix) TAKE ONE TABLET BY MOUTH EVERY DAY 90 Tablet 3 3 09/10/19 24 Active Carvedilol 25 MG Oral Tablet (Coreg)Indications: HTN, goal below 140/90 TAKE ONE TABLET BY MOUTH 2 TIMES A DAY WITH MORNING AND EVENING MEALS 180 Tablet 3 3 09/11/19 24 Active Tiotropium [place] Monohydrate 2.5 MCG/ACT Inhalation Aerosol Solution (Spiriva Respimat)Indication s:COPD, group B, by GOLD 2017 classification ([facility]) INHALE 2 PUFFS BY MOUTH IN THE MORNING 12 g 3 3 08/07/19 24 Active Additional Information Patient taking differently:2 Puff Inhalation Daily(AM),Hasn't started it yet, Reported on 08/12/2022 Beclomethasone Diprop HFA 80 MCG/ACT Inhalation Aerosol Breath Activated (Qvar RediHaler)Indicatio ns:COPD, group B, by GOLD 2017 classification ([facility]) INHALE 1 PUFF IN THE MORNING AND 1 PUFF BEFORE BEDTIME 31.8 g 3 3 08/07/19 24 Active Additional Information Patient taking differently:1 Puff Inhalation BID (.AM/PM),Hasn't started it yet, Reported on 08/12/2022 Clobetasol Propionate 0.05 % External Ointment (Temovate)Indicatio ns:Psoriasiform dermatitis APPLY TO AFFECTED AREAS ON ARMS AND FEET TWO TIMES A DAY NEEDED FOR FLARES 60 g 5 3 07/21/19 24 Active Triamcinolone Acetonide 0.1 % External Cream (Aristocort)Indicat ions:Psoriasis APPLY TO AFFECTED AREA TWICE DAILY 120 g 3 3 07/14/19 24 Active Losartan Potassium 100 MG Oral Tablet (Cozaar) TAKE ONE TABLET BY MOUTH EVERY DAY 180 Tablet 3 2 07/01/20 23 Active OneTouch Verio In Vitro Strip (Glucose Blood)Indications:T ype 2 diabetes mellitus with hemoglobin A1c goal of less than 7.0% ([facility]) Use to test blood glucose 4 times daily. DX: E11.9 400 Strip 3 3 Active Levothyroxine Sodium 200 MCG Oral Tablet (Levoxyl)Indication s:Postsurgical hypothyroidism TAKE 1 TABLET BY MOUTH DAILY AT LEAST 30 MINUTES PRIOR TO FIRST MEAL OF THE DAY OR OTHER MEDICATIONS 90 Tablet 3 3 Active Misc. Devices Electrolarynx Medically necessary 1 Each 0 3 Active metFORMIN HCl ER 500 MG Oral Tablet Extended Release 24 Hour (Glucophage XR)Indications:Type 2 diabetes mellitus with hemoglobin A1c goal of less than 7.0% (HCC) Take 1 Tablet by mouth 2 times a day. 180 Tablet 3 3 Active Repaglinide 2 MG Oral Tablet (Prandin) Take 1 tablet by mouth in the morning with breakfast and 1 tablet with supper. 180 Tablet 0 3 Active Repaglinide 1 MG Oral Tablet (Prandin) Take 0.5 tablet by mouth with evening snack. 45 Tablet 0 3 Active Repaglinide 1 MG Oral Tablet (Prandin)Indication s:Type 2 diabetes mellitus with hemoglobin A1c goal of less than 7.0% ([facility]),Diabetes mellitus with proteinuria Take by mouth 2 tablets at breakfast, 2 tablet with supper, 1/2 tablet with evening snack 270 Tablet 3 3 06/08/20 23 Discontinu ed(Formula ry/Cost) documented as of this encounter (statuses as of 06/08/2023) Active Problems Problem Noted Date Diagnosed Date Primary aldosteronism 03/15/2023 Thyroid cancer 03/15/2023 Pancreatic duct dilated 01/06/2022 Adrenal nodule 01/06/2022 Psoriasis 08/21/2021 Diabetes mellitus with proteinuria 01/26/2021 Obesity, Class I, BMI 30.0-34.9 (see actual BMI) 01/24/2021 COPD, group B, by GOLD 2017 classification 10/15 Overview: Per COPD GOLD Classification Mixed hyperlipidemia 03/13/2019 Type 2 diabetes mellitus wit h hemoglobin A1c goal of less than 7.0% 03/10/2019 Hypertension goal BP (blood pressure) < 140/90 0 03/10/2019 Family history of familial adenomatous polyposis 03/10/2019 Gastroesophageal reflux disease without esophagi tis 03/10/2019 History of pancreatic cancer 06/08/2017 History of thyroid cancer 09/24/2015 Mitral valve regurgitation 04/30/2015 Tracheostomy status 09/05/2013 Postsurgical hypothyroidism 10/20/2012 Insomnia 01/31/2010 documented as of this encounter (statuses as of 06/08/2023) Resolved Problems Problem Noted Date Diagnosed Date Resolved Date Type 2 diabetes mellitus wit h stage 3a chronic kidney disease, without long-term current use of insulin 08/21/2021 09/17/2021 Chronic obstructive pulmonary disease 07/31/2019 2019 Overview: Per COPD GOLD Classification Type 2 diabetes mellitus wit h stage 3 chronic kidney disease, without long-term current use of insulin 03/10/2019 03/04/2022 History of MRSA infection 12/29/2018 Overview: THROAT Hypertensive kidney disease with chronic kidney disease stage III 11/10/2018 03/04/2022 History of colon polyps 11/10/201802/02 Overview: Tubular adenoma Family history of FAP (famil ial adenomatous polyposis) 09/20/2017 02/14/2019 History of colon cancer 06/08/201702/02 History of pancreatic cancer 06/08/2017 02/14/2019 Kidney disease, chronic, sta ge III (GFR 30-59 ml/min) 04/13/2016 12/29/2018 Overview: Per CKD protocol #1 Need for pneumococcal vaccination 02/21/2016 04/14/2016 Acute frontal sinusitis 01/20/201605/05 Abnormal results of liver function studies 04/30/2015 05/05/2019 General medical exam 04/12/2015 016 Bronchitis, complicated 07/03/201405/05 Dermatitis 04/10/2014 05/19/2016 Trigger finger 04/10/2014 04/12/2015 Spasm of muscle 03/13/2014 05/19/2016 Bronchitis, complicated 09/05/201305/05 Impaired glucose tolerance 01/16/2013 0 09/05/2013 Renal insufficiency 12/19/2012 05/19/20 16 Anemia 12/19/2012 09/05/2013 Bacterial pneumonia 12/16/2012 09/06/19 14 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 DVT prophylaxis 12/08/2012 05/19/2016 Pre-operative cardiovascular examination 11/18/2012 12/16/2012 Preop cardiovascular exam 11/09/2012 Dyslipidemia, goal to be determined 07/19/2012 09/05/2013 Other atopic dermatitis 07/19/201202/02 Overview: ICD-10 update of inactive term Abnormal results of liver function studies 07/07/2012 09/05/2013 Dermatitis 03/09/2012 07/01/2012 Acute bronchitis, complicated 12/31/2011 07/01/2012 Carpal tunnel syndrome 11/21/201007/01 Edema 10/08/2010 07/01/2012 Other screening mammogram 09/29/2010 Routine medical exam 09/29/2010 016 TUBULAR ADENOMA- duodenum 07/07/2010 Other specified pre-operative examination 06/12/2010 07/01/2012 Non- jaundice 06/04/20102011 Swelling, mass, or lump in chest 05/22/2010 09/05/2013 Other adverse food reactions , not elsewhere classified 04/03/2010 07/01/2012 Acute sinusitis 01/31/2010 07/01/2012 Obesity, Class II, BMI 35-39 .9, isolated (see actual BMI) 12/16/2009 07/01/2012 Overview: Per Obesity Protocol, #19 Bacterial pneumonia 11/01/2009 07/01/20 12 Encounter for routine gyneco logical examination 11/01/2009 05/19/2016 Overview: ICD-10 update of inactive term Spasm of muscle 11/01/2009 07/01/2012 HTN, goal below 130/80 03/10 Other specified acquired hypothyroidism 09/05/2013 Overview: s/p goiter removal History of thyroid cancer Overview: removed [facility] Lumbago 09/05/2013 Overview: chronic since childhood Family history of colon cancer 02/14/2019 Overview: [place]. FAP---carmina, ft kyle Dermatitis 07/01/2012 documented as of this encounter (statuses as of 06/08/2023) Immunizations Name Administration Dates Next Due COVID-19 mRNA, LNP-s, No Pre serve, 2-Dose Series (Moderna) 02/15/2021,01/09/2021,12/12/2020 Covid-19, Mrna, Lnp-s, Pf, B ivalent, 50 Mcg, IM, 12 yrs and above (Moderna) 07/07/2022 Hepatitis B, 20+ yrs 12/20/2014,07/27/2014,06/22 Pneumococcal Conjugate Vacc, 13 Valent (Prevnar) 04/26/2015,04/04/2015 Pneumococcal Polysaccharide PPV23 (Pneumovax) 03/04/2022,12/03/2013 SEASONAL INFLUENZA, PF, 6 M & Above, IM , (FLULAVAL or FLUZONE) 03/21/2021,04/22/2020,03/10/2019,04/21,04/14/2017 Seasonal Influenza Virus Vac cine, Unspecified Formulation 03/10/2019,04/21/2018,04/14/2017,03/18,06/05/2010 Seasonal Influenza, Quadriva lent Hd (Fluzone Hd) 03/18/2023,03/04/2022 Seasonal Influenza, Quadriva lent, No Preserve, IM 03/18/2016,04/12/2015 Seasonal Influenza, Split, I IV3, With Preserve, Inj 03/16/2014,03/24/2013,03/14/2012,04/07,06/05/2010 TDAP (age 10 and older)(Boostrix) 07/07/2022 TDAP (age 11 and older)(Adacel) 09/29/2010 Varicella Zoster Vaccine (Adult) 05/20/2017 Zoster Vaccine Recombinant (Shingrix) 12/04/2019 ,06/14/2019 documented as of this encounter Social History Tobacco Use Types Packs/Day Years Used Date Smoking Tobacco: Former Cigarettes 1 30 Q uit: 07/05/2006 Smokeless Tobacco: Never Alcohol Use Standard Drinks/Week Comments No 0 (1 standard drink = 0.6 oz pur e alcohol) PHQ-2 Answer Date Recorded PHQ Adult Total Score 0 03/04/2022 Hunger Vital Sign Answer Date Recorded Worried About Running Out of Food in the Last Ye ar Never true 06/09/2019 Ran Out of Food in the Last Year Never true 06/09/2019 Sex and Gender Information Value Date Recorded Sex Assigned at Female 12/29/2018 7:43 AM EDT Gender Identity Female 12/29/2018 7:43 AM EDT Sexual Orientation Straight 12/29/2018 7 :43 AM EDT Job Start Date Occupation Industry Not on file Not on file Not on file documented as of this encounter Functional Status Functional Status Response Date of Assess ment Are you deaf or do you have serious difficulty h earing? No 11/29/2020 Are you blind or do you have serious difficulty seeing, even when wearing glasses? No 11/29/2020 Do you have serious difficul ty walking or climbing stairs? (5 years old or older) No 11/29/2020 Do you have difficulty dress ing or bathing? (5 years old or older) No 11/29/2020 Because of a physical, menta l, or emotional condition, do you have difficulty doing errands alone such as visiting a doctor s office or shopping? (15 years old or older) No 11/30/19 Cognitive Status Response Date of Assessm ent Because of a physical, menta l, or emotional condition, do you have serious difficulty concentrating, remembering, or making decisions? (5 years old or older) No 11/29/2020 documented as of this encounter Miscellaneous Notes * Telephone Encounter - Raquel Deanna Terese, [facility] - 06/08/2023 11:32 AM EST Insurance will only pay for 120 tabs/30 days Prandin. Rx adjusted to 1 mg and 2 mg tab. [place] at [place] They will put on hold untilpt requests. INCREASE Prandin 1mg - 2 tablet before breakfast and 2 tablet with supper plus 1/2 tab with eveningsnack Attempted pt outreach to inform of tab changes due to plan limits - LMOVM. If pt returns call, please transfer to me. If I am not available, please transfer to the next available [facility]. Thank you, Deanna García, PharmD Clinical Pharmacist [facility] ([facility]) (formerly Telepharmacy) 06/08/23 11:49 AM [phone] * Telephone Encounter - Howard Reeves CPhT - 06/08/2023 10:47 AM EST This is a new PA request. Upon review of this prior authorization request, I verified this medication is covered but has a quantity limit. The insurance will cover 120 tablets every 30 days. Please advise. Of note, there is nothing currently pending in [place] for this request. Thank you, Scott Reeves ([facility]) Manual Arts Therapist III [facility] ([facility]) (formerly Telepharmacy) 06/08/2023, 10:47 AM * Telephone Encounter - Elizabeth Matos CPhT - 06/07/2023 1:34 PM EST Pharmacy calling to inform doctor that the patient's insurance will not pay for this medication without a completed prior authorization. Did confirm this information with the pharmacy. Pt's current insurance information is as follows: Patient name: Mallory Soto ID number: [id number] BIN number: [id number] PCN number: [id number] Group number: n/a Subscriber name: Mallory Soto Primary or Secondary Insurance:Primary Medication: Repaglinide 1 MG Oral Tablet Reason for Request: quantity exceeds limit Pharmacy and phone number: [facility] [phone] Rx plan and phone number: [facility] [phone] Is this a new medication for the patient? No. How did the patient obtain the medication on the lastfill? It was a different dose or frequency the last time it was filled. What alternative medications does the pharmacy have in stock?: n/a Thank you, Fawn Matos Manual Arts Therapist III [facility]) 06/07/2023,1:34 PM documented in this encounter Plan of Treatment Upcoming Encounters Date Type Department Care Team (Late st Contact Info) Description 06/30/2023 11:00 AM EST Office Visit Pharmacy, [facility] [address] [facility] [place] [address] Pharmacist1, [facility] [address] [facility] [place] [address] 08/25/2023 9:30 AM EST Office Visit Orthopaedics [facility] [address] [place] [address] Javon Bunn DO [address] [place] [address] 09/30/2023 10:40 AM EDT Office Visit General Internal Medicine [facility] [address] [facility] [place] [address] Orlin Castro MD [address] [facility] [place] [address] 10/05/2023 3:30 PM EDT Office Visit Dermatology [facility] [address] [facility] [place] [address] Ling Capellan PA-C [address] [facility] [address] 11/30/2023 9:30 AM EDT Imaging Radiology [facility] [address] [facility] [address] [facility] [place] [address] 02/17/2024 7:50 AM EDT Office Visit Optometry, [place] [address] [place] [address] Ari Staley, [place] Bull[place] OD [address] [place] [address] 03/27/2024 8:40 AM EDT Office Visit [place], [place] [address] [place] [address] Nhung Monzon MD [address] [place] [address] Scheduled Procedures Name Priority Associated Diagnoses Date/Ti me COLONOSCOPY FLEXIBLE PROXIMAL DIAGNOSTIC Recall FAP (familial adenomatous polyposis) ESOPHAGOGASTRODUODENOSCOPY ( EGD), FLEXIBLE, TRANSORAL, DIAGNOSTIC Recall FAP (familial adenomatous polyposis) Health Maintenance Due Date Last Done Comments *COPD SEVERITY VERIFIED BY PFT 08/02/2019 Depression Screening 03/04/2023 03/04/2022 COVID-19 Vaccine ( season) 2023 07/07/2022, 02/15/2021, 01/09/2021, Additional history exists Diabetic Foot Exam 08/07/2023 08/07/2022, 0 08/21/2021, 10/22/2020, Additional history exists Mammogram 09/12/2023 09/11/2022, 030 03/2022, 09/09/2020, Additional history exists HbA1c 11/29/2023 05/31/2023, 03/05, 12/10/2022, Additional history exists COLONOSCOPY-ANNUAL AGES 18-100 12/18/2023 12/17/2022, 04/29/2021, 10/15/2020, Additional history exists Diabetic Eye Exam 01/13/2024 01/12/2023, , 01/12/2023, Additional history exists TSH 03/15/2024 03/15/2023, 05/05, 03/06/2022, Additional history exists O2 ASSESSMENT COMPLETED IN PAST YEAR FOR COPD 03/18/2024 03/18/2023 Albumin/Creatinine Ratio 05/05/202405/05/2 023, 05/14/2022, 05/01/2022, Additional history exists GFR 06/02/2024 06/02/2023, 110 02/2023, 05/05/2023, Additional history exists DXA Scan 05/12/2026 05/12/2022 Lipid Panel 10/27/2027 10/26/2022, 09/0 08/2021, 05/10/2021, Additional history exists DTaP,Tdap,and Td Vaccines (3 - Td or Tdap) 07/07/2032 07/07/2022, 09/29/2010 Hepatitis B Completed 12/20/2014, 07/06, 06/22/2014 Zoster Vaccines Completed 12/04/2019, 06/04, 05/20/2017 Pap Smear Discontinued 07/11/2020, 11/02, 09/05/2013, Additional history exists Sigmoidoscopy Discontinued 04/29/2021, 10/15/2020 Alpha-1 Antitrypsin Completed 08/21/2021 Pneumococcal Vaccine: 65+ Years Completed 03/04/2022, 04/26/2015, 04/04/2015, Additional history exists Colonoscopy Discontinued 12/17/2022, 08/06, 07/02/2017, Additional history exists Colorectal Cancer Screening Discontinued Influenza Vaccine (FLU shot) Completed 03/18/2023, 03/04/2022, 03/21/2021, Additional history exists Cologuard Discontinued Fecal Occult Blood Test Discontinued GARDASIL-HPV IMMUNIZATION SERIES Aged Out No longer eligible based on patient's age to complete this topic MENINGOCOCCAL (MENACTRA/MENVEO) Aged Out No longer eligible based on patient's age to complete this topic documented as of this encounter Medical Devices Implanted Type Area Production Troubleshooter Device Identifier Shelf Expiration Date Model / Serial / Lot Stent 10fr 7cm - [id number] Implanted:Qty: 1 on 06/17/2010 at OR [facility] COOK : RADHA [place] 01/15/2013 [id number] / / [id number] Description:pancreas documented as of this encounter Advance Directives Latest Code Status on File Code Status Date Activated Date Inactivated Comments Full Code 11/29/2020 5:40 PM 11/30/2020 2:45 PM This order reflects the patients wishes and were consensually agreed upon. Code Status History Code Status Date Activated Date Inactivated Comments Full Code 12/02/2012 3:07 PM 12/08/2012 3:29 PM This o rder reflects the patients wishes and were consensually agreed upon. Question Answer Comments Discussion of Advance Directives occurred with: Not Discussed Full Code 12/02/2012 5:49 AM 12/02/2012 3:07 PM This order reflects the patients wishes and were consensually agreed upon. Question Answer Comments Discussion of Advance Directives occurred with: Not Discussed Full Code 06/17/2010 12:26 PM 06/25/2010 8:22 PM Th is order reflects the patients wishes and were consensually agreed upon. Question Answer Comments Discussion of Advance Directives occurred with: Patient Full Code 06/04/2010 11:18 PM 06/10/2010 6:26 PM This order reflects the patients wishes and were consensually agreed upon. Question Answer Comments Discussion of Advance Directives occurred with: Patient Does the patient have a Living Will? No Does the patient have Health Care Power of Emergency Vehicle Technician? No Care Teams Battery Engineer Relationship Specialty Start Date End Date Orlin Castro MD [address] [place] [address] PCP - General Internal Medicine 04/27/19 documented as of this encounter
--- OUTSIDE RECORDS SUMMARY | 2023-06-17 09:51 | External Medical Summary | Summary of Care ---
Author Name Unknown Organization [facility] Address [address] [facility] [place] [address] Phone [phone] Care Team Providers Care Solar Panel Technician Name Role Phone Orlin Castro MD Primary Care Provider + Reason for Visit * Reason Onset Date Comments Medication Pre-auth 06/07/2023 Repaglinide 1 MG Oral Tablet Encounter Details Date Type Department Care Team (Late st Contact Info) Description 06/07/2023 Telephone General Internal Medicine [facility] [address] [place] [address] Orlin Castro MD [address] [place] [address] Medication Pre-auth (Repaglinide 1 MG Oral... Allergies [...] mouth daily. 90 Tab 3 1 Active Blend BiosciencesTouch Verio Flex System w/Device Kit Use as [...] s:COPD, group B, by GOLD 2017 classification ([facility]) Inhale via nebulizer . Use as directed. 1 Each 1 2 Active Ipratropium-Albuter ol 0.5-2.5 (3) MG/3ML Inhalation Solution (Duoneb)Indications :COPD, group B, by GOLD 2017 classification ([facility]) Inhale via nebulizer 3 mL every 6 [...] Tablet 3 3 09/11/19 24 Active Tiotropium [place] Monohydrate 2.5 MCG/ACT Inhalation Aerosol Solution (Spiriva Respimat)Indication s:COPD, group B, by GOLD 2017 classification ([facility]) INHALE 2 PUFFS BY MOUTH IN THE MORNING 12 g 3 3 08/07/19 24 Active Additional Information Patient taking differently:2 Puff Inhalation Daily(AM),Hasn't started it yet, Reported on 08/12/2022 Beclomethasone Diprop HFA 80 MCG/ACT Inhalation Aerosol Breath Activated (Qvar RediHaler)Indicatio ns:COPD, group B, by GOLD 2017 classification ([facility]) INHALE 1 PUFF IN THE MORNING AND [...] hemoglobin A1c goal of less than 7.0% ([facility]) Use to test blood glucose 4 times [...] hemoglobin A1c goal of less than 7.0% ([facility]),Diabetes mellitus with proteinuria Take by mouth 2 [...] 7:43 AM EDT Sexual Orientation Straight 12/29/2018 7: 43 AM EDT Job Start Date Occupation Industry [...] * Telephone Encounter - Raquel Deanna Terese, [facility] - 06/08/2023 11:32 AM EST Insurance will [...] available, please transfer to the next available [facility]. Thank you, Deanna García, PharmD Clinical Pharmacist [facility] ([facility]) (formerly Telepharmacy) 06/08/23 11:49 AM [phone] * Telephone Encounter - Howard Reeves CPhT - 06/08/2023 10:47 AM EST This is a new [place] request. Upon review of this prior authorization request, I verified this medication is covered but has a quantity limit. The insurance will cover 120 tablets every 30 days. Please advise. Of note, there is nothing currently pending in [place] for this request. Thank you, Scott Reeves ([facility]) Segmental Paver Installer III [facility] ([facility]) (formerly Telepharmacy) 06/08/2023, 10:47 AM * Telephone Encounter - Elizabeth Matos CPhT - 06/07/2023 1:34 PM EST Pharmacy calling to inform doctor that the patient's insurance will not pay for this medication without a completed prior authorization. Did confirm this information with the pharmacy. Pt's current insurance information is as follows: Patient name: Mallory Soto ID number: [id number] BIN number: [id number] PCN number: [id number] Group number: n/a Subscriber name: Mallory Soto Primary or Secondary Insurance:Primary Medication: Repaglinide 1 MG Oral Tablet Reason for Request: quantity exceeds limit Pharmacy and phone number: [facility] [phone] Rx plan and phone number: [facility] [phone] Is this a new medication for the patient? No. How did the patient obtain the medication on the lastfill? It was a different dose or frequency the last time it was filled. What alternative medications does the pharmacy have in stock?: n/a Thank you, Fawn Matos Segmental Paver Installer III [facility] ([facility]) 06/07/2023,1:34 PM documented in this encounter Plan of Treatment Upcoming Encounters Date Type Department Care Team (Late st Contact Info) Description 06/30/2023 11:00 AM EST Office Visit Pharmacy, [facility] [address] [facility] [place] [address] Pharmacist1, [facility] [address] [facility] [place] [address] 08/25/2023 9:30 AM EST Office Visit Orthopaedics [facility] [address] [place] [address] Javon Bunn DO [address] [facility] [place] [address] 09/30/2023 10:40 AM EDT Office Visit General Internal Medicine [facility] [address] [facility] [place] [address] Orlin Castro MD [address] [facility] [place] [address] 10/05/2023 3:30 PM EDT Office Visit Dermatology [facility] [address] [facility] [place] [address] Ling Capellan PA-C [address] [facility] [address] 11/30/2023 9:30 AM EDT Imaging Radiology [facility] 1st [facility] [address] [facility] [place] [address] 02/17/2024 7:50 AM EDT Office Visit Optometry, [place] [address] [place] [address] Ari Staley, Rancho Bullard OD [address] [place] [address] 03/27/2024 8:40 AM EDT Office Visit Oleks[place]r, [place] [address] [place] [address] Nhung Monzon MD [address] [place] [address] Scheduled Procedures Name Priority Associated Diagnoses Date/Ti [...] this encounter Medical Devices Implanted Type Area Automotive Parts Coordinator Device Identifier Shelf Expiration Date Model / Serial / Lot Stent 10fr 7cm - [id number] Implanted:Q[place]: 1 on [place]17[place] [facility] [place] RADHA [place] 01/15/2013 [id number] / / [id number] Description:pancreas documented as of this encounter Advance [...] the patient have Health Care Power of Junior Staff Accountant? No Care Teams Solar Panel Technician Relationship Specialty Start Date End Date Orlin Castro MD [address] [place] [address] PCP - General Internal Medicine 04/27/19 documented as of this encounter
--- OUTSIDE RECORDS SUMMARY | 2023-06-17 09:51 | External Medical Summary | Summary of Care ---
Author Name Unknown Organization [facility] Address [address] [place] [address] Phone [phone] Care Team Providers Care Utilization Review Nurse Name Role Phone Orlin Castro MD Primary Care Provider + Reason for Visit * Reason Onset Date Comments Medication Pre-auth 06/07/2023 Repaglinide 1 MG Oral Tablet Encounter Details Date Type Department Care Team (Late st Contact Info) Description 06/07/2023 Telephone General Internal Medicine [facility] [address] [place] [address] Orlin Castro MD [address] [place] [address] Medication Pre-auth (Repaglinide 1 MG Oral... Allergies Active Allergy Reactions Criticality Noted Date Comments Zolpidem Tartrate Psych complications 6 Rosuvastatin 04/05/2020 Elevated lft Hydrochlorothiazide 12/29/2019 brenda Nsaids Other (Please comment) 04/14/2016 Gastric ulcer with anemia documented as of this encounter (statuses as of 06/10/2023) Medications Medication Sig Dispensed Refills Start Date [...] mouth daily. 90 Tab 3 1 Active [facility] Partners[facility] Verio Flex System w/Device Kit Use as [...] Tablet 3 3 09/11/19 24 Active Tiotropium [place] Monohydrate 2.5 MCG/ACT Inhalation Aerosol Solution (Spiriva [...] as of this encounter (statuses as of 06/10/2023) Active Problems Problem Noted Date Diagnosed Date [...] as of this encounter (statuses as of 06/10/2023) Resolved Problems Problem Noted Date Diagnosed Date [...] as of this encounter (statuses as of 06/10/2023) Immunizations Name Administration Dates Next Due COVID-19 [...] encounter Miscellaneous Notes * Telephone Encounter - Deanna García RPh - 06/10/2023 9:28 AM EST MyG sent. Thank you, Harpreet RehmanD Clinical Pharmacist [facility] ([facility]) (formerly Telepharmacy) 06/10/23 9:28 AM [phone] * [facility] - [facility] 06/08/2023 11:32 AM EST Insurance [...] available, please transfer to the next available [facility]. Thank you, Deanna García, PharmD Clinical Pharmacist [facility] ([facility]) (formerly Telepharmacy) 06/08/23 11:49 AM [phone] * Telephone Encounter - Howard Reeves CPhT - 06/08/2023 10:47 AM EST This is a new [place] request. Upon review of this prior authorization request, I verified this medication is covered but has a quantity limit. The insurance will cover 120 tablets every 30 days. Please advise. Of note, there is nothing currently pending in [facility] for this request. Thank you, Scott Reeves ([facility]) Pharmacy Technician III [facility] ([facility]) (formerly Telepharmacy) 06/08/2023, 10:47 AM * Telephone Encounter - Elizabeth Matos CPhT - 06/07/2023 1:34 PM EST Pharmacy calling to inform doctor that the patient's insurance will not pay for this medication without a completed prior authorization. Did confirm this information with the pharmacy. Pt's current insurance information is as follows: Patient name: Mallory Soto ID number: [id number] BIN number: [id number] PCN number: [id number] Group number: n/a Subscriber name: Mallory Soto Primary or Secondary Insurance:Primary Medication: Repaglinide 1 MG Oral Tablet Reason for Request: quantity exceeds limit Pharmacy and phone number: [facility] [phone] Rx plan and phone number: [facility] [phone] Is this a new medication for the patient? No. How did the patient obtain the medication on the lastfill? It was a different dose or frequency the last time it was filled. What alternative medications does the pharmacy have in stock?: n/a Thank you, Fawn Matos Pharmacy Technician III [facility] ([facility]) 06/07/2023,1:34 PM documented in this encounter Plan of Treatment Upcoming Encounters Date Type Department Care Team (Late st Contact Info) Description 06/30/2023 11:00 AM EST Office Visit Pharmacy, [facility] [address] [facility] [place] [address] Pharmacist1, [facility] [address] [facility] [place] [address] 08/25/2023 9:30 AM EST Office Visit Orthopaedics [facility] [place] [address] [place] [address] Javon Bunn DO [address] [place] [address] 09/30/2023 10:40 AM EDT Office Visit General Internal Medicine [facility] [place] [address] [place] [address] Orlin Castro MD 200 [facility] [place] [address] 10/05/2023 3:30 PM EDT Office Visit Dermatology [facility] [place] [address] [place] [address] [place] [address] Ling Capellan PA-C [address] [facility] [place] [address] 11/30/2023 9:30 AM EDT Imaging Radiology [facility] 1st [facility] [place] [address] [place] [address] 02/17/2024 7:50 AM EDT Office Visit Optometry, [place] [address] [place] [address] Rancho Chapman Jr., OD [address] [place] [address] 03/27/2024 8:40 AM EDT Office Visit Endocrinology, [place] [address] [place], [place] [id number] Nhung Monzon MD [address] [place], [place] [address] Scheduled Procedures Name Priority Associated Diagnoses Date/Ti [...] 10/22/2020, Additional history exists Mammogram 09/12/2023 09/11/2022, 03/0 03/2022, 09/09/2020, Additional history exists HbA1c 11/29/2023 05/31/2023, 03/05, 12/10/2022, Additional history exists COLONOSCOPY-ANNUAL AGES 18-100 12/18/2023 12/17/2022, 04/29/2021, 10/15/2020, Additional history exists Diabetic Eye Exam 01/13/2024 01/12/2023, , 01/12/2023, Additional history exists TSH 03/15/2024 03/15/2023, 05/05, 03/06/2022, Additional history exists O2 ASSESSMENT COMPLETED IN PAST YEAR FOR COPD 03/18/2024 03/18/2023 Albumin/Creatinine Ratio 05/05/2024 023, 05/14/2022, 05/01/2022, Additional history exists GFR 06/02/2024 06/02/2023, 02/2023, 05/05/2023, Additional history exists DXA Scan 05/12/2026 05/12/2022 Lipid Panel 10/27/2027 10/26/2022, 08/2021, 05/10/2021, Additional history exists DTaP,Tdap,and Td [...] this encounter Medical Devices Implanted Type Area Instant Print Operator Device Identifier Shelf Expiration Date Model / Serial / Lot Stent 10fr 7cm - [id number] [place]planted:[place] 1 on 06[place]17[place]2010 [place] [facility] [place] RADHA [place] 01/15/2013 [id number] / / [id number] Description:pancreas documented as of this encounter Advance [...] the patient have Health Care Power of Police Commanding Officer? No Care Teams Utilization Review Nurse Relationship Specialty Start Date End Date Orlin Castro MD [address] [place] [address] PCP - General Internal Medicine 04/27/19 documented as of this encounter
--- OUTSIDE RECORDS SUMMARY | 2023-06-17 09:52 | External Medical Summary | Summary of Care ---
Author Name Unknown Organization [facility] Address [address] [place] [address] Phone [phone] Care Team Providers Care Browning Processor Name Role Phone Orlin Castro MD Primary Care Provider + Reason for Visit * Reason Comments Dosage Adjustment In Person (Anticoag Cl inic) Diabetes Encounter Details Date Type Department Care Team (Late st Contact Info) Description 05/31/2023 11:00 AM EST Office Visit Pharmacy, [facility] [place] [address] [facility] [place] [address] Pharmacist1, [facility] [address] [facility] [place] [address] Type 2 diabetes mellitus with hemoglobin A1c goal of less than 7.0% ([facility])*; Diabetes mellitus with proteinuria Allergies Active Allergy Reactions Criticality Noted Date Comments Zolpidem Tartrate Psych complications 6 Rosuvastatin 04/05/2020 Elevated lft Hydrochlorothiazide 12/29/2019 brenda Nsaids Other (Please comment) 04/14/2016 Gastric ulcer with anemia documented as of this encounter (statuses as of 05/31/2023) Medications Medication Sig Dispensed Refills Start Date End Date Status ferrous sulfate (FEOSOL) 325 (65 FE) MG Tablet TAKE ONE TABLET THREE TIMES DAILY 270 Tab 3 12/01/19 19 Active ONETOUCH DELICA LANCETS FINE MISC Use to test blood sugar 4 times daily dx e11.9 400 Each 3 03/09/20 19 Active Misc. Devices MISC Tracheostomy Care Kit #4601 1 Each 0 10/02/19 20 Active Vitamin B-12 1000 MCG Oral Tablet Take 1 Tab by mouth daily. 90 Tab 3 03/07/20 21 Active OneTouch Verio Flex System w/Device Kit Use as directed. To test blood sugars up to 4 times a day Dx E11.22 1 Kit 0 04/03/20 21 Active Misc. Devices Laryngectomy tube, size 10LGT 3 Each 0 07/29/19 22 Active Misc. Devices Velcro Trach Ties for Laryngectomy Tube 15 Each 11 07/29/19 22 Active Sucralfate 1 GM Oral Tablet (Carafate)Indicati ons:Gastritis, bile acid reflux Take by mouth 1 Tablet in the morning AND 1 Tablet at noon AND 1 Tablet in the evening AND 1 Tablet before bedtime. 360 Tablet 3 11/04/19 22 Active Compressor NebulizerIndicatio ns:COPD, group B, by GOLD 2017 classification ([facility]) Inhale via nebulizer . Use as directed. 1 Each 1 12/31/19 22 Active Ipratropium-Albute rol 0.5-2.5 (3) MG/3ML Inhalation Solution (Duoneb)Indication s:COPD, group B, by GOLD 2017 classification ([facility]) Inhale via nebulizer 3 mL every 6 hours as needed for Wheezing. 360 mL 1 12/31/19 22 Active Breathe Comfort Humidifier Use as directed. Laryngectomy status. Use for humidification to Trach site 1 Each 2 08/12/19 23 Active Sodium Chloride 7 % Inhalation Nebulization Solution (Hyper-Allen) 4 ML VIA NEBULIZER TWICE DAILY FOR RESP. FOR 1 WEEK ONLY USE FOR 1 WEEK 0 10/20/19 23 Active Formoterol Fumarate 20 MCG/2ML Inhalation Nebulization Solution 0 10/20/19 23 Active Budesonide 0.25 MG/2ML Inhalation Suspension (Pulmicort) 0.25 mg. 0 10/20/19 23 Active Ezetimibe 10 MG Oral Tablet (Zetia)Indications :Mixed hyperlipidemia TAKE ONE TABLET BY MOUTH EVERY DAY IN THE MORNING 90 Tablet 3 12/11/19 23 024 Active amLODIPine Besylate 10 MG Oral Tablet (Norvasc)Indicatio ns:Essential hypertension with goal blood pressure less than 140/90 TAKE ONE TABLET BY MOUTH EVERY DAY. 90 Tablet 3 09/17/19 23 024 Active Cyclobenzaprine HCl 10 MG Oral Tablet (Flexeril)Indicati ons:Spasm of muscle TAKE ONE TABLET BY MOUTH AT BEDTIME NEEDED FOR MUSCLE SPASMS. 90 Tablet 3 09/17/19 23 024 Active Pantoprazole Sodium 40 MG Oral Tablet Delayed Release (Protonix) TAKE ONE TABLET BY MOUTH EVERY DAY 90 Tablet 3 09/06/19 23 024 Active Carvedilol 25 MG Oral Tablet (Coreg)Indications :HTN, goal below 140/90 TAKE ONE TABLET BY MOUTH 2 TIMES A DAY WITH MORNING AND EVENING MEALS 180 Tablet 3 09/05/19 23 024 Active Tiotropium Fernley Monohydrate 2.5 MCG/ACT Inhalation Aerosol Solution (Spiriva Respimat)Indicatio ns:COPD, group B, by GOLD 2017 classification ([facility]) INHALE 2 PUFFS BY MOUTH IN THE MORNING 12 g 3 08/07/19 23 024 Active Additional Information Patient taking differently:2 Puff Inhalation Daily(AM),Hasn't started it yet, Reported on 08/12/2022 Beclomethasone Diprop HFA 80 MCG/ACT Inhalation Aerosol Breath Activated (Qvar RediHaler)Indicati ons:COPD, group B, by GOLD 2017 classification ([facility]) INHALE 1 PUFF IN THE MORNING AND 1 PUFF BEFORE BEDTIME 31.8 g 3 08/07/19 23 024 Active Additional Information Patient taking differently:1 Puff Inhalation BID (.AM/PM),Hasn't started it yet, Reported on 08/12/2022 Clobetasol Propionate 0.05 % External Ointment (Temovate)Indicati ons:Psoriasiform dermatitis APPLY TO AFFECTED AREAS ON ARMS AND FEET TWO TIMES A DAY NEEDED FOR FLARES 60 g 5 07/21/19 23 024 Active Triamcinolone Acetonide 0.1 % External Cream (Aristocort)Indica tions:Psoriasis APPLY TO AFFECTED AREA TWICE DAILY 120 g 3 07/14/19 23 024 Active Losartan Potassium 100 MG Oral Tablet (Cozaar) TAKE ONE TABLET BY MOUTH EVERY DAY 180 Tablet 3 06/17/20 22 023 Active OneTouch Verio In Vitro Strip (Glucose Blood)Indications: Type 2 diabetes mellitus with hemoglobin A1c goal of less than 7.0% ([facility]) Use to test blood glucose 4 times daily. DX: E11.9 400 Strip 3 01/26/20 Active Levothyroxine Sodium 200 MCG Oral Tablet (Levoxyl)Indicatio ns:Postsurgical hypothyroidism TAKE 1 TABLET BY MOUTH DAILY AT LEAST 30 MINUTES PRIOR TO FIRST MEAL OF THE DAY OR OTHER MEDICATIONS 90 Tablet 3 03/15/20 Active Misc. Devices Electrolarynx Medically necessary 1 Each 0 03/15/20 Active metFORMIN HCl ER 500 MG Oral Tablet Extended Release 24 Hour (Glucophage XR)Indications:Typ e 2 diabetes mellitus with hemoglobin A1c goal of less than 7.0% (HCC) Take 1 Tablet by mouth 2 times a day. 180 Tablet 3 05/31/20 Active Repaglinide 1 MG Oral Tablet (Prandin)Indicatio ns:Type 2 diabetes mellitus with hemoglobin A1c goal of less than 7.0% (HCC),Diabetes mellitus with proteinuria Take by mouth 2 tablets at breakfast, 2 tablet with supper, 1/2 tablet with evening snack 270 Tablet 3 05/31/20 Active metFORMIN HCl 1000 MG Oral Tablet (Glucophage) TAKE ONE TABLET BY MOUTH TWICE A DAY WITH MORNING AND EVENING MEALS 180 Tablet 3 05/06/20 22 023 Discontinued Repaglinide 1 MG Oral Tablet (Prandin)Indicatio ns:Type 2 diabetes mellitus with hemoglobin A1c goal of less than 7.0% (HCC),Diabetes mellitus with proteinuria Take by mouth 1 1/2 tablets at breakfast, 1 tablet with supper, 1/2 tablet with evening snack 270 Tablet 3 03/16/20 23 023 Discontinued(Re fill) documented as of this encounter (statuses as of 05/31/2023) Active Problems Problem Noted Date Diagnosed Date [...] as of this encounter (statuses as of 05/31/2023) Resolved Problems Problem Noted Date Diagnosed Date [...] as of this encounter (statuses as of 05/31/2023) Immunizations Name Administration Dates Next Due COVID-19 [...] No 11/29/2020 documented as of this encounter Progress Notes * Layla Preston, [facility] - 05/30/2023 1:38 PM EST Medication Therapy Disease Management [facility] - Diabetes Management Progress Note Mallory Soto, identified by name and date of , is a 67 year old female being seen for diabetes management/education. Patient presents for return diabetic visit. DIABETES: Current diabetic medications: Metformin 1000mg - 1 tablet twice daily Prandin 1mg - 1 1/2 tablet before breakfast and 1 tablet with supper plus 1/2 tab with evening snack Medication Injection Site: N/A Lifestyle: Diet: Pt states she has marvin working on diet. States she has protein with meals and only has eveningsnack 3x a week now. History of Treatment Barriers: Lifestyle: None Therapy considerations: History of Medullary Thyroid Cancer - GLP-1 contraindicated Medication: Intolerance to Jardiance - frequent urination; Stopped Tradjenta due to endocrinology recommendation 12/04/19 recommending against use of Tradjenta in patient due to potential increased risk of pancreatic cancer (pt has hx of pancreatic cancer). Glucose Review/SMBG: Readings obtained from patient documented BG logbook Pre am Pre Lunch Pre pm HS 127 176 141 113 156 140 113 109 99 127 136 141 191 149 127 106 133 176 140 112 91 128 137 148 157 130 119 105 120 136 126 109 101 133 127 104 111 151 140 109 115 121 140 106 109 127 135 147 160 149 130 118 136 121 109 130 146 125 138 119 139 127 118 96 151 136 137 109 156 132 127 118 106 137 151 120 Pre AM meal Pre Lunch Pre PM meal Bedtime Average 132 138 131 117 High 191 176 151 148 Low 91 121 109 96 Range 100 55 42 52 Count 19 19 19 19 Hypoglycemia: Does your blood sugar go below 70 mg/dL? No Hyperglycemia symptoms present: polydipsia Goal A1c <7% Recent Labs Units 05/31/23 1031 03/15/23 1029 12/10/22 1013 HEMOGLOBIN A1C - [facility] % -- 6.7* -- HEMOGLOBIN A1C POCT - [facility] % 7.1* -- 7.6* Recent Labs Units 05/12/23 0901 05/05/23 0859 03/15/23 1029 ESTIMATED GLOMERULAR FILTRATION RATE - [facility] mL/min 43* 67 55* CREATININE - [facility] mg/dL 1.4* 0.9 1.1* HYPERTENSION: Patient on ACEi/ARB: yes BP Readings from Last 3 Encounters: 03/18/23 142/82 03/15/23 167/90 12/11/22 124/64 Blood pressure at goal: yes HYPERLIPIDEMIA: Patient is taking moderate or high intensity statin: yes HEALTH MAINTENANCE REVIEW: Health Maintenance Due Topic Date Due *COPD SEVERITY VERIFIED BY PFT Never done Depression Screening 03/04/2023 COVID-19 Vaccine ( season) 2023 ASSESSMENT & PLAN: ICD-10-CM 1. Type 2 diabetes mellitus with hemoglobin A1c goal of less than 7.0% (HCC) E11.9 2. Diabetes mellitus with proteinuria E11.29 R80.9 BG Readings - Blood sugars uncontrolled. A1c increased to 7.1%. Pt denies hypoglycemia. Medications - Reviewed current regimen, patient is adherent to regimen. GFR on 05/12/23 reduced to 43. Will renally dose adjust Metformin to 500 mg BID. This reduction willlikely increase pt's A1c. Will increase prandin to 2 mg with breakfast and dinner and keep evening snack as 0.5 mg. Will assess BS trends at close f/u in 4 weeks. Pt's options limited by renal function, thyroid cancer hx, and pancreatitis hx. If elevated can consider retrial of Jardiance however cost will be a concern. Can also consider Glipizide XL. Diet, Exercise, Lifestyle - Pt states actively trying to eat healthier and has reduced her evening snacking Patient is agreeable to SMBG 4 time(s) daily. Patient aware to contact clinic if any hypoglycemia before next visit. MEDICATION CHANGES: yes, see below; preferred pharmacy: [facility] ([facility]) Diabetic Medications: REDUCE Metformin ER 500 mg - 1 tablet twice daily INCREASE Prandin 1mg - 2 tablet before breakfast and 2 tablet with supper plus 1/2 tab with eveningsnack HEALTH MAINTENANCE INTERVENTIONS: Labs: Up to Date Immunizations: eligible for covid vaccine Foot Exam: Up to Date Eye Exam: Up to Date Annual Wellness Visit: due FOLLOW UP: Return to clinic in 4 weeks 06/30/2023 Layla Preston RPh Clinical Pharmacist - [employer] Medication Therapy Management [facility] 05/30/2023, 1:38 PM documented in this encounter Plan of Treatment Upcoming Encounters Date Type Department Care Team (Late st Contact Info) Description 06/30/2023 11:00 AM EST Office Visit Pharmacy, [facility] [address] [place] [address] Pharmacist1, [facility] [address] [place] [address] 08/25/2023 9:30 AM EST Office Visit Orthopaedics [facility] [address] [place] [address] Javon Bunn, DO [address] [place] [address] 09/30/2023 10:40 AM EDT Office Visit General Internal Medicine [facility] [address] [place] [address] Orlin Castro MD [address] [place] [address] 10/05/2023 3:30 PM EDT Office Visit Dermatology [facility] [address] [facility] [place] [address] Ling Capellan PA-C [address] [place] [address] 11/30/2023 9:30 AM EDT Imaging Radiology [facility] [address] [facility] [address] [place] [address] 02/17/2024 7:50 AM EDT Office Visit Optometry, [facility] [address] [place] [address] Rancho Chapman Jr., OD [address] [place] [address] 03/27/2024 8:40 AM EDT Office Visit Endocrinology, [facility] [address] [place], [place] [id number] Nhung Monzon MD [address], [place] [id number] Scheduled Procedures Name Priority Associated Diagnoses Date/Ti [...] 023, 05/14/2022, 05/01/2022, Additional history exists GFR 05/12/2024 05/12/2023, 07/2022, 03/15/2023, Additional history exists DXA Scan 05/12/2026 05/12/2022 Lipid Panel 10/27/2027 10/26/2022, 0908/2021, 05/10/2021, Additional history exists DTaP,Tdap,and Td Vaccines [...] this encounter Medical Devices Implanted Type Area Internist Medical Doctor Md Device Identifier Shelf Expiration Date Model / Serial / Lot Stent 10fr 7cm - [id number] Implanted:Qty: 1 on 06/17/2010 at [facility] COOK : RADHA [place] 01/15/2013 [id number] / / [id number] Description:pancreas documented as of this encounter Procedures Procedure Name Priority Date/Time Associated Diagnosis Comments HEMOGLOBIN A1C, POINT OF CARE HANNA 05/31/2023 10:31 AM EST documented in this encounter Results * (ABNORMAL) HEMOGLOBIN A1C, POINT OF CARE (05/31/2023 10:31 AM EST) Hemoglobin A1c 7.1(H) 4.0 - 5.6 % 05/31/2023 11:20 AM EST [facility] [address] Blood 05/31/2023 10:3 1 AM EST 05/31/2023 11:19 AM EST [facility] Pharmacist1 LAB POINT OF C ARE TEST DOCKED DEVICE UNSOLICITED RESULTS [facility] [address] [place] [address] documented in this encounter Visit Diagnoses Diagnosis Type 2 diabetes mellitus with hemoglobin A1c goal of less than 7.0% (HCC)- Primary Diabetes mellitus with proteinuria documented in this encounter Advance Directives Latest Code Status [...] the patient have Health Care Power of Inspector And Unloader? No Care Teams Browning Processor Relationship Specialty Start Date End Date Orlin Castro MD [address] [place] [address] PCP - General Internal Medicine 04/27/19 documented as of this encounter
--- OUTSIDE RECORDS SUMMARY | 2023-06-17 09:52 | External Medical Summary ---
Author Name Unknown Address Unknown Organization K09:[facility] [address] [place] [address] Laboratory Report Ordering Provider Test Date Status RICHARD BEYER 06/02/2023 09:53:05 Final Observation Date Value Abnormality Reference (Units ) Status BUN 06/02/2023 09:53:05 15 6-20 (mg/dL) Final Creatinine 06/02/2023 09:53:05 1.0 0.5-1.0 (mg/dL) Final Glomerular filtration rate/1.73 sq M.predicted [Volume Rate/Area] in Serum, Plasma or Blood by Creatinine-based formula (CKD-EPI) 06/02/2023 09:53:05 61 >=60 (mL/min) Final eGFR is calculated based on the CKD-EPI 2020 equation SODIUM 06/02/2023 09:53:05 141 135-146 (m mol/L) Final Potassium 06/02/2023 09:53:05 4.0 3.5-5.1 (m mol/L) Final Cl 06/02/2023 09:53:05 103 98-107 (mm ol/L) Final CO2 06/02/2023 09:53:05 29 22-32 (mmo l/L) Final Anion gap 06/02/2023 09:53:05 9 7-15 (mmol /L) Final Glucose 06/02/2023 09:53:05 175 Above high normal 70 -120 (mg/dL) Final Albumin 06/02/2023 09:53:05 4.0 3.8-5.0 (g /dL) Final AST (Aspartate aminotransferase) 06/02/2023 09:53:05 29 10-35 (U/L) Fin al Alk Phos 06/02/2023 09:53:05 154 Above high normal 35 -130 (U/L) Final Bilirubin, Total 06/02/2023 09:53:05 0.4 <=1 .2 (mg/dL) Final Calcium 06/02/2023 09:53:05 8.4 8.4-10.2 ( mg/dL) Final Protein 06/02/2023 09:53:05 6.7 6.0-8.3 (g /dL) Final ALT (Alanine aminotransferase) 06/02/2023 09:53:05 32 10-35 (U/L) Joel bullock Performing Location [facility] [address] [place] [address]
--- OUTSIDE RECORDS SUMMARY | 2023-06-17 09:52 | External Medical Summary | Summary of Care ---
Author Name Unknown Organization [facility] Address [address] [facility] [place] [address] Phone [phone] Care Team Providers Care Patternmaker Sample Name Role Phone Orlin Castro MD Primary Care Provider + Reason for Visit * Reason Comments Follow Up Bilat knee Encounter Details Date Type Department Care Team (Latest Contact Info) Description 05/24/2023 9:00 AM EST Office Visit Orthopaedics [facility] [address] [place] [address] Javon Bunn DO [address] [place] [address] Primary osteoarthritis of both knees* Allergies Active Allergy Reactions Criticality Noted Date Comments Zolpidem Tartrate Psych complications 6 Rosuvastatin 04/05/2020 Elevated lft Hydrochlorothiazide 12/29/2019 brenda Nsaids Other (Please comment) 04/14/2016 Gastric ulcer with anemia documented as of this encounter (statuses as of 05/24/2023) Medications Medication Sig Dispensed Refills Start Date End Date Status ferrous sulfate (FEOSOL) 325 (65 FE) MG Tablet TAKE ONE TABLET THREE TIMES DAILY 270 Tab 3 11/30/2018 Active ONETOUCH DELICA LANCETS FINE MISC Use to test blood sugar 4 times daily dx e11.9 400 Each 3 03/09/2019 Active Misc. Devices MISC Tracheostomy Care Kit #4601 1 Each 0 10/02/2019 Active Vitamin B-12 1000 MCG Oral Tablet Take 1 Tab by mouth daily. 90 Tab 3 03/07/2021 Active OneTouch Verio Flex System w/Device Kit Use as directed. To test blood sugars up to 4 times a day Dx E11.22 1 Kit 0 04/03/2021 Active Misc. Devices Laryngectomy tube, size 10LGT 3 Each 0 07/29/2021 Active Misc. Devices Velcro Trach Ties for Laryngectomy Tube 15 Each 11 07/29/2021 Active Sucralfate 1 GM Oral Tablet (Carafate)Indicatio ns:Gastritis, bile acid reflux Take by mouth 1 Tablet in the morning AND 1 Tablet at noon AND 1 Tablet in the evening AND 1 Tablet before bedtime. 360 Tablet 3 11/03/2021 Active Compressor NebulizerIndication s:COPD, group B, by GOLD 2017 classification ([facility]) Inhale via nebulizer . Use as directed. 1 Each 1 12/30/2021 Active Ipratropium-Albuter ol 0.5-2.5 (3) MG/3ML Inhalation Solution (Duoneb)Indications :COPD, group B, by GOLD 2017 classification ([facility]) Inhale via nebulizer 3 mL every 6 hours as needed for Wheezing. 360 mL 1 12/30/2021 Active Breathe Comfort Humidifier Use as directed. Laryngectomy status. Use for humidification to Trach site 1 Each 2 08/12/2022 Active Sodium Chloride 7 % Inhalation Nebulization Solution (Hyper-Allen) 4 ML VIA NEBULIZER TWICE DAILY FOR RESP. FOR 1 WEEK ONLY USE FOR 1 WEEK 0 2022 Active Formoterol Fumarate 20 MCG/2ML Inhalation Nebulization Solution 0 2022 Active Budesonide 0.25 MG/2ML Inhalation Suspension (Pulmicort) 0.25 mg. 0 2022 Active Ezetimibe 10 MG Oral Tablet (Zetia)Indications: Mixed hyperlipidemia TAKE ONE TABLET BY MOUTH EVERY DAY IN THE MORNING 90 Tablet 3 12/10/2022 4 Active amLODIPine Besylate 10 MG Oral Tablet (Norvasc)Indication s:Essential hypertension with goal blood pressure less than 140/90 TAKE ONE TABLET BY MOUTH EVERY DAY. 90 Tablet 3 09/16/2022 4 Active Cyclobenzaprine HCl 10 MG Oral Tablet (Flexeril)Indicatio ns:Spasm of muscle TAKE ONE TABLET BY MOUTH AT BEDTIME NEEDED FOR MUSCLE SPASMS. 90 Tablet 3 09/16/2022 4 Active Pantoprazole Sodium 40 MG Oral Tablet Delayed Release (Protonix) TAKE ONE TABLET BY MOUTH EVERY DAY 90 Tablet 3 09/05/2022 4 Active Carvedilol 25 MG Oral Tablet (Coreg)Indications: HTN, goal below 140/90 TAKE ONE TABLET BY MOUTH 2 TIMES A DAY WITH MORNING AND EVENING MEALS 180 Tablet 3 09/04/2022 4 Active Tiotropium Gem Monohydrate 2.5 MCG/ACT Inhalation Aerosol Solution (Spiriva Respimat)Indication s:COPD, group B, by GOLD 2017 classification ([facility]) INHALE 2 PUFFS BY MOUTH IN THE MORNING 12 g 3 08/07/2022 4 Active Additional Information Patient taking differently:2 Puff Inhalation Daily(AM),Hasn't started it yet, Reported on 08/12/2022 Beclomethasone Diprop HFA 80 MCG/ACT Inhalation Aerosol Breath Activated (Qvar RediHaler)Indicatio ns:COPD, group B, by GOLD 2017 classification ([facility]) INHALE 1 PUFF IN THE MORNING AND 1 PUFF BEFORE BEDTIME 31.8 g 3 08/07/2022 4 Active Additional Information Patient taking differently:1 Puff Inhalation BID (.AM/PM),Hasn't started it yet, Reported on 08/12/2022 Clobetasol Propionate 0.05 % External Ointment (Temovate)Indicatio ns:Psoriasiform dermatitis APPLY TO AFFECTED AREAS ON ARMS AND FEET TWO TIMES A DAY NEEDED FOR FLARES 60 g 5 07/21/2022 4 Active Triamcinolone Acetonide 0.1 % External Cream (Aristocort)Indicat ions:Psoriasis APPLY TO AFFECTED AREA TWICE DAILY 120 g 3 07/14/2022 4 Active Losartan Potassium 100 MG Oral Tablet (Cozaar) TAKE ONE TABLET BY MOUTH EVERY DAY 180 Tablet 3 06/17/2022 3 Active metFORMIN HCl 1000 MG Oral Tablet (Glucophage) TAKE ONE TABLET BY MOUTH TWICE A DAY WITH MORNING AND EVENING MEALS 180 Tablet 3 05/06/2022 4 Active OneTouch Verio In Vitro Strip (Glucose Blood)Indications:T ype 2 diabetes mellitus with hemoglobin A1c goal of less than 7.0% ([facility]) Use to test blood glucose 4 times daily. DX: E11.9 400 Strip 3 01/25/2023 Active Levothyroxine Sodium 200 MCG Oral Tablet (Levoxyl)Indication s:Postsurgical hypothyroidism TAKE 1 TABLET BY MOUTH DAILY AT LEAST 30 MINUTES PRIOR TO FIRST MEAL OF THE DAY OR OTHER MEDICATIONS 90 Tablet 3 03/15/2023 Active Misc. Devices Electrolarynx Medically necessary 1 Each 0 03/15/2023 Active Repaglinide 1 MG Oral Tablet (Prandin)Indication s:Type 2 diabetes mellitus with hemoglobin A1c goal of less than 7.0% ([facility]),Diabetes mellitus with proteinuria Take by mouth 1 1/2 tablets at breakfast, 1 tablet with supper, 1/2 tablet with evening snack 270 Tablet 3 03/16/2023 Active Hospital, Clinic, or Other Facility Administered Medication Ordered Dose Route Frequency Start Date End Date Status lidocaine 1% 1 mL - triamcinolone acetonide 40 mg/mL 1 mL inj 2 mLIndications:Primary osteoarthritis of both knees 2 mL IJ ONCE 05/24/2023 05/24/2023 Ended lidocaine 1% 1 mL - triamcinolone acetonide 40 mg/mL 1 mL inj 2 mLIndications:Primary osteoarthritis of both knees 2 mL IJ ONCE 05/24/2023 05/24/2023 Ended documented as of this encounter (statuses as of 05/24/2023) Active Problems Problem Noted Date Diagnosed Date [...] as of this encounter (statuses as of 05/24/2023) Resolved Problems Problem Noted Date Diagnosed Date [...] as of this encounter (statuses as of 05/24/2023) Immunizations Name Administration Dates Next Due COVID-19 [...] as of this encounter Progress Notes * Javon Bunn, DO - 05/24/2023 9:00 AM EST Mallory Soto [id number] INJECTION NOTE Mallory Soto is a 67 year old female who presents to [facility] for Bilateral knee. injections Last injected 02/17/23 she got relief for 3+ months Physical Exam General: in no acute distress Mood and Affect: normal Gait and Station: mildly antalgic Knee exam Active range of motion 0-110 No effusion tenderness to palpation at medial joint line b/l Assessment and Plan: see procedure note f/u 3 months Primary osteoarthritis of both knees (Primary) - lidocaine 1% 1 mL - triamcinolone acetonide 40 mg/mL 1 mL inj 2 mL - lidocaine 1% 1 mL - triamcinolone acetonide 40 mg/mL 1 mL inj 2 mL - INJECT MAJOR JX/BURSA W/O US GUIDE Javon Bunn DO Primary Care Sports Medicine [facility] [place] [address] Procedure note (knee injection), bilateral : Time out: Prior to injection, a time out was called to confirm the administration of appropriate medicine, patient name, procedure and confirm to the best of our ability and knowledge the presence of any necessary risks and benefits. Patient verbalizes understanding. proper approach defined Sterile techinique applied. Skin sterilized with alcohol swab. Knee injected using 1.5 inch, 22 gauge needle. Injected with lidocaine 1% 1 mL - triamcinolone acetonide 40 mg/mL 1 mL inj 2 mL . Patient tolerated procedure with no significant bleeding or adverse reaction. Patient instructed to call or return to clinic for fever or warmth and redness at injection site for potential infection. Patient also advised as to potential for steroid flare reaction including increased pain and redness at injection site which should be treated with ice and resolve within 24 hours. Javon Bunn DO documented in this encounter Nursing Notes * Jamel Roth MED ASSIST - 05/24/2023 9:03 AM EST Follow up bilat knee pain. documented in this encounter Plan of Treatment Upcoming Encounters Date Type Department Care Team (Late st Contact Info) Description 05/31/2023 11:00 AM EST Office Visit Pharmacy, [facility] [place] [address] [place] [address] [address] Pharmacist1, [facility] [address] [place] [address] 08/25/2023 9:30 AM EST Office Visit [facility] [address] [facility] [place] [address] Javon Bunn, DO [address] [place] [address] 09/30/2023 10:40 AM EDT Office Visit General Internal Medicine [facility] [address] [place] [address] Orlin Castro MD [address] [facility] [place] [address] 10/05/2023 3:30 PM EDT Office Visit Dermatology [facility] [address] [facility] [place] [address] Ling Capellan PA-C [address] [place] [address] 11/30/2023 9:30 AM EDT Imaging Radiology [address] [place] [address] 02/17/2024 7:50 AM EDT Office Visit Optometry, [place] [address] [place] [address] Rancho Chapman Jr., OD [address] [place] [address] 03/27/2024 8:40 AM EDT Office Visit Endocrinology, [place] [address] [place] [address] Nhung Monzon MD [address] [place], [place] [id number] Scheduled Orders Name Type Priority Associated Diagnoses Orde r Schedule INJECT MAJOR JX/BURSA W/O US GUIDE Procedures Routine Primary osteoarthritis of both knees Ordered: 05/24/2023 Scheduled Procedures Name Priority Associated Diagnoses Date/Ti [...] 030 03/2022, 09/09/2020, Additional history exists HbA1c 09/13/2023 03/15/2023, 0 02/2023, 09/07/2022, Additional history exists COLONOSCOPY-ANNUAL AGES 18-100 12/18/2023 12/17/2022, 04/29/2021, 10/15/2020, Additional history exists Diabetic Eye Exam 01/13/2024 01/12/2023, , 01/12/2023, Additional history exists TSH 03/15/2024 03/15/2023, 05/05, 03/06/2022, Additional history exists O2 ASSESSMENT COMPLETED IN PAST YEAR FOR COPD 03/18/2024 03/18/2023 Albumin/Creatinine Ratio 05/05/2024 023, 05/14/2022, 05/01/2022, Additional history exists GFR 05/12/2024 05/12/2023, 1107/2022, 03/15/2023, Additional history exists DXA Scan 05/12/2026 05/12/2022 Lipid Panel 10/27/2027 10/26/2022, 090 08/2021, 05/10/2021, Additional history exists DTaP,Tdap,and Td [...] this encounter Medical Devices Implanted Type Area Capsule Filling Machine Operator Device Identifier Shelf Expiration Date Model / Serial / Lot Stent 10fr 7cm - [id number] Implanted:Qty: 1 on 06/17/[address] [facility] COOK : RADHA [place] 01/15/2013 [id number] / / [id number] Description:pancreas documented as of this encounter Visit Diagnoses Diagnosis Primary osteoarthritis of both knees- Primary Primary localized osteoarthrosis, lower leg documented in this encounter Administered Medications Inactive Administered Medications - up to 3 most recent administrations Medication Order MAR Action Action Date Dose Rate Site lidocaine 1% 1 mL - triamcinolone acetonide 40 mg/mL 1 mL inj 2 mL 2 mL, Injection, ONCE, On Wed05/24/23 at 1000, For 1 dose, Lidocaine 1% 1mL Triamcinolone Acetonide 40 mg/mL 1 mL (Final concentration = 20 mg/mL) REFRIGERATE and SHAKE WELL Given 05/24/2023 9:17 AM EST 2 mL Knee Right lidocaine 1% 1 mL - triamcinolone acetonide 40 mg/mL 1 mL inj 2 mL 2 mL, Injection, ONCE, On Wed05/24/23 at 1000, For 1 dose, Lidocaine 1% 1mL Triamcinolone Acetonide 40 mg/mL 1 mL (Final concentration = 20 mg/mL) REFRIGERATE and SHAKE WELL Given 05/24/2023 9:16 AM EST 2 mL Knee Left documented in this encounter Advance Directives Latest [...] the patient have Health Care Power of Rigging Up Man? No Care Teams Patternmaker Sample Relationship Specialty Start Date End Date Orlin Castro MD [address] [place] [address] PCP - General Internal Medicine 04/27/19 documented as of this encounter
--- OUTSIDE RECORDS SUMMARY | 2023-06-17 09:52 | External Medical Summary ---
Author Name Unknown Address Unknown Organization [facility] [address] [place] [address] Laboratory Report Ordering Provider Test Date Status MTM,PHARMACIST1 05/31/2023 10:31:56 Final Observation Date Value Abnormality Reference (Units ) Status HbA1C 05/31/2023 10:31:56 7.1 Above high normal 4. 0-5.6 (%) Final Performing Location [facility] [place] [address]
--- OUTSIDE RECORDS SUMMARY | 2023-06-17 09:52 | External Medical Summary | Summary of Care ---
Author Name Unknown Organization [facility] Address [address] [place] [facility] [place] [address] Phone [phone] Care Team Providers Care Merchant Mill Utility Worker Name Role Phone Orlin Castro MD Primary Care Provider + Reason for Visit * Reason Comments Outpatient Testing Encounter Details Date Type Department Care Team (Late st Contact Info) Description 06/02/2023 9:50 AM EST Laboratory Laboratory [facility] [address] [place] [address] [facility] [address] [place] [address] Elevated LFTs; Decreased GFR Allergies Active Allergy Reactions Criticality Noted Date Comments Zolpidem Tartrate Psych complications 6 Rosuvastatin 04/05/2020 Elevated lft Hydrochlorothiazide 12/29/2019 brenda Nsaids Other (Please comment) 04/14/2016 Gastric ulcer with anemia documented as of this encounter (statuses as of 06/02/2023) Medications Medication Sig Dispensed Refills Start Date [...] mouth daily. 90 Tab 3 03/07/2021 Active YouFastUnlockTouch Verio Flex System w/Device Kit Use as [...] s:COPD, group B, by GOLD 2017 classification ([facility]) Inhale via nebulizer . Use as directed. 1 Each 1 12/30/2021 Active Ipratropium-Albuter ol 0.5-2.5 (3) MG/3ML Inhalation Solution (Duoneb)Indications :COPD, group B, by GOLD 2017 classification ([facility]) Inhale via nebulizer 3 mL every [...] 180 Tablet 3 09/04/2022 4 Active Tiotropium [place] Monohydrate 2.5 MCG/ACT Inhalation Aerosol Solution (Spiriva Respimat)Indication s:COPD, group B, by GOLD 2017 classification ([facility]) INHALE 2 PUFFS BY MOUTH IN THE MORNING 12 g 3 08/07/2022 4 Active Additional Information Patient taking differently:2 Puff Inhalation Daily(AM),Hasn't started it yet, Reported on 08/12/2022 Beclomethasone Diprop HFA 80 MCG/ACT Inhalation Aerosol Breath Activated (Qvar RediHaler)Indicatio ns:COPD, group B, by GOLD 2017 classification ([facility]) INHALE 1 PUFF IN THE MORNING [...] DAY 180 Tablet 3 06/17/2022 3 Active OneTouch Verio In Vitro Strip (Glucose Blood)Indications:T ype 2 diabetes mellitus with hemoglobin A1c goal of less than 7.0% ([facility]) Use to test blood glucose 4 times daily. DX: E11.9 400 Strip 3 01/25/2023 Active Levothyroxine Sodium 200 MCG Oral Tablet (Levoxyl)Indication s:Postsurgical hypothyroidism TAKE 1 TABLET BY MOUTH DAILY AT LEAST 30 MINUTES PRIOR TO FIRST MEAL OF THE DAY OR OTHER MEDICATIONS 90 Tablet 3 03/15/2023 Active Misc. Devices Electrolarynx Medically necessary 1 Each 0 03/15/2023 Active metFORMIN HCl ER 500 MG Oral Tablet Extended Release 24 Hour (Glucophage XR)Indications:Type 2 diabetes mellitus with hemoglobin A1c goal of less than 7.0% (HCC) Take 1 Tablet by mouth 2 times a day. 180 Tablet 3 05/31/2023 Active Repaglinide 1 MG Oral Tablet (Prandin)Indication s:Type 2 diabetes mellitus with hemoglobin A1c goal of less than 7.0% (HCC),Diabetes mellitus with proteinuria Take by mouth 2 tablets at breakfast, 2 tablet with supper, 1/2 tablet with evening snack 270 Tablet 3 05/31/2023 Active documented as of this encounter (statuses as of 06/02/2023) Active Problems Problem Noted Date Diagnosed Date [...] as of this encounter (statuses as of 06/02/2023) Resolved Problems Problem Noted Date Diagnosed Date [...] as of this encounter (statuses as of 06/02/2023) Immunizations Name Administration Dates Next Due COVID-19 [...] No 11/29/2020 documented as of this encounter Plan of Treatment Upcoming Encounters Date Type Department Care Team (Late st Contact Info) Description 06/30/2023 11:00 AM EST Office Visit Pharmacy, [facility] [address] [place] [address] [address] Pharmacist1, [facility] [address] [place] [address] 08/25/2023 9:30 AM EST Office Visit Orthopaedics [facility] [address] [place] [address] Javon Bunn DO [address] [place] [address] 09/30/2023 10:40 AM EDT Office Visit General Internal Medicine [facility] [address] [place] [address] Orlin Castro MD [address] [place] [address] 10/05/2023 3:30 PM EDT Office Visit Dermatology [facility] [address] [place] [address] Ling Capellan PA-C [address] [facility] [place] [address] 11/30/2023 9:30 AM EDT Imaging Radiology [facility] [address] [facility] [place] [address] [place] [address] 02/17/2024 7:50 AM EDT Office Visit Optometry, [place] [address] [place] [address] Ari Staley, Rancho Bullard OD [address] [place] [address] 03/27/2024 8:40 AM EDT Office Visit Endocrinology, [place] [address] [place] [address] Nhung Monzon MD [address] [place] [address] Pending Results Name Type Priority Associated Diagnoses Date /Time COMPREHENSIVE METABOLIC PANEL Lab Routine Elevated LFTs Decreased GFR 06/02/2023 9:53 AM EST Scheduled Procedures Name Priority Associated Diagnoses Date/Ti [...] 10/22/2020, Additional history exists Mammogram 09/12/2023 09/11/2022, 0303/2022, 09/09/2020, Additional history exists HbA1c 11/29/2023 05/31/2023, [...] this encounter Medical Devices Implanted Type Area Rn Cardiac Device Identifier Shelf Expiration Date Model / Serial / Lot Stent 10fr 7cm - [id number] Implanted:Qty: 1 on 06/17/2010 at [place] [facility] COOK : RADHA [place] 01/15/2013 [id number] / / [id number] Description:pancreas documented as of this encounter Visit Diagnoses Diagnosis Elevated LFTs Other abnormal blood chemistry Decreased GFR Nonspecific abnormal results of kidney function study documented in this encounter Advance Directives Latest [...] the patient have Health Care Power of Assembler Surgical Garment? No Care Teams Merchant Mill Utility Worker Relationship Specialty Start Date End Date Orlin Castro MD [address] [place] [address] PCP - General Internal Medicine 04/27/19 documented as of this encounter
--- OUTSIDE RECORDS SUMMARY | 2023-06-17 09:53 | External Medical Summary ---
Author Name Unknown Address Unknown Organization K09[facility] [place] [address] Laboratory Report Ordering Provider Test Date Status RICHARD BEYER 05/12/2023 09:01:04 Final Observation Date Value Abnormality Reference (Units ) Status BUN 05/12/2023 09:01:04 16 6-20 (mg/dL) Final Creatinine 05/12/2023 09:01:04 1.4 Above high normal 0.5-1.0 (mg/dL) Final Glomerular filtration rate/1.73 sq M.predicted [Volume Rate/Area] in Serum, Plasma or Blood by Creatinine-based formula (CKD-EPI) 05/12/2023 09:01:04 43 Below low normal >=60 (mL/min) Final eGFR is calculated based on the CKD-EPI 2020 equation SODIUM 05/12/2023 09:01:04 143 135-146 (m mol/L) Final Potassium 05/12/2023 09:01:04 4.2 3.5-5.1 (m mol/L) Final Cl 05/12/2023 09:01:04 102 98-107 (mm ol/L) Final CO2 05/12/2023 09:01:04 29 22-32 (mmo l/L) Final Anion gap 05/12/2023 09:01:04 12 7-15 (mmol /L) Final Glucose 05/12/2023 09:01:04 143 Above high normal 70 -120 (mg/dL) Final Calcium 05/12/2023 09:01:04 8.7 8.4-10.2 ( mg/dL) Final Performing Location [facility] [place] [address]
--- OUTSIDE RECORDS SUMMARY | 2023-06-17 09:53 | External Medical Summary | Summary of Care ---
Author Name Unknown Organization [facility] Address [address] [place] [address] Phone [phone] Care Team Providers Care Signaling Project Engineer Name Role Phone Orlin Castro MD Primary Care Provider + Reason for Visit * Reason Onset Date Comments Advice 05/17/2023 Encounter Details Date Type Department Care Team (Late st Contact Info) Description 05/17/2023 Telephone [facility] [address] [place] [address] Nhung Monzon MD [address] [place] [address] Advice Allergies Active Allergy Reactions Criticality Noted Date Comments Zolpidem Tartrate Psych complications 6 Rosuvastatin 04/05/2020 Elevated lft Hydrochlorothiazide 12/29/2019 brenda Nsaids Other (Please comment) 04/14/2016 Gastric ulcer with anemia documented as of this encounter (statuses as of 05/18/2023) Medications Medication Sig Dispensed Refills Start Date End Date Status ferrous sulfate (FEOSOL) 325 (65 FE) MG Tablet TAKE ONE TABLET THREE TIMES DAILY 270 Tab 3 11/30/2018 Active The Interest NetworkTOUCH DELICA LANCETS FINE MISC Use to test blood sugar 4 times daily dx e11.9 400 Each 3 03/09/2019 Active Misc. Devices [facility] Tracheostomy Care Kit #4601 1 Each 0 10/02/2019 Active Vitamin B-12 1000 MCG Oral Tablet Take 1 Tab by mouth daily. 90 Tab 3 03/07/2021 Active SwoopTouch Verio Flex System w/Device Kit Use as [...] s:COPD, group B, by GOLD 2017 classification ([facility]) Inhale via nebulizer . Use as directed. 1 Each 1 12/30/2021 Active Ipratropium-Albuter ol 0.5-2.5 (3) MG/3ML Inhalation Solution (Duoneb)Indications :COPD, group B, by GOLD 2017 classification ([facility]) Inhale via nebulizer 3 mL every 6 [...] 180 Tablet 3 09/04/2022 4 Active Tiotropium [place] Monohydrate 2.5 MCG/ACT Inhalation Aerosol Solution (Spiriva Respimat)Indication s:COPD, group B, by GOLD 2017 classification ([facility]) INHALE 2 PUFFS BY MOUTH IN THE MORNING 12 g 3 08/07/2022 4 Active Additional Information Patient taking differently:2 Puff Inhalation Daily(AM),Hasn't started it yet, Reported on 08/12/2022 Beclomethasone Diprop HFA 80 MCG/ACT Inhalation Aerosol Breath Activated (Qvar RediHaler)Indicatio ns:COPD, group B, by GOLD 2017 classification ([facility]) INHALE 1 PUFF IN THE MORNING AND [...] A1c goal of less than 7.0% (HCC) Use to test blood glucose 4 times [...] evening snack 270 Tablet 3 03/16/2023 Active documented as of this encounter (statuses as of 05/18/2023) Active Problems Problem Noted Date Diagnosed Date [...] as of this encounter (statuses as of 05/18/2023) Resolved Problems Problem Noted Date Diagnosed Date [...] history of colon cancer 02/14/2019 Overview: [place]. FAP---lincoln grewal kyle Dermatitis 07/01/2012 documented as of this encounter (statuses as of 05/18/2023) Immunizations Name Administration Dates Next Due COVID-19 [...] encounter Miscellaneous Notes * Telephone Encounter - Ling Ritchie RN - 05/18/2023 3:27 PM EST Left message for pt to return call to clinic x 2. Left detailed message for pt to check MyG portal from messages from Dr. Monzon. Ling Ritchie RN * Telephone Encounter - Ling Ritchie RN - 05/17/2023 4:47 PM EST Images from the original note were not included. Left message for return call to clinic. ARELY Lee Jodie Alton, MD P [facility] Nurse Navigator Pool/Class Endocrine nurse: patient does not routinely use myG. Pls inform her that recent labs are improved. There is just some protein in urine from diabetes. 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 Thank you documented in this encounter Plan of Treatment Upcoming Encounters Date Type Department Care Team (Late st Contact Info) Description 05/24/2023 9:00 AM EST Office Visit Orthopaedics [facility] [address] [place] [address] Javon Bunn, DO 132 [place] [address] 05/31/2023 11:00 AM EST Office Visit Pharmacy, [facility] [address] [facility] [place] [address] Pharmacist1, [facility] [address] [facility] [place] [address] 09/30/2023 10:40 AM EDT Office Visit General Internal Medicine [facility] [address] [facility] [address] Orlin Castro MD [address] [facility] [place] [address] 10/05/2023 3:30 PM EDT Office Visit Dermatology [facility] [address] [facility] [address] Ling Capellan PA-C [address] [place] [address] 11/30/2023 9:30 AM EDT Imaging Radiology [facility] 1st [facility] 132 [place] [address] 02/17/2024 7:50 AM EDT Office Visit Optometry, [place] 16 [place] [address] Rancho Chapman Jr., OD 16 [place] [address] 03/27/2024 8:40 AM EDT Office Visit Endocrinology, [place] [address] [facility] [address] [place], [place] [address] Nhung Monzon MD [address] [place] [address] Scheduled Procedures Name Priority Associated Diagnoses Date/Ti [...] 09/09/2020, Additional history exists HbA1c 09/13/2023 03/15/2023, 060 02/2023, 09/07/2022, Additional history exists COLONOSCOPY-ANNUAL AGES [...] this encounter Medical Devices Implanted Type Area Facing Machine Operator Device Identifier Shelf Expiration Date Model / Serial / Lot Stent 10fr 7cm - [id number] Implanted:Qty: 1 on 06/17/2010 at [place] [facility] [place]OOK : RADHA MONTANA 01/15/2013 [id number] / / [id number] Description:pancreas documented as of this encounter Advance [...] the patient have Health Care Power of Licensed Midwife? No Care Teams Signaling Project Engineer Relationship Specialty Start Date End Date Orlin Castro MD 200 [place] [address] PCP - General Internal Medicine 04/27/19 documented as of this encounter
--- OUTSIDE RECORDS SUMMARY | 2023-06-17 09:53 | External Medical Summary | Summary of Care ---
Author Name Unknown Organization [facility] Address [address] [facility] [place] [address] Phone [phone] Care Team Providers Care Churn Tender Name Role Phone Orlin Castro MD Primary Care Provider + Reason for Visit * Reason Comments Outpatient Testing Encounter Details Date Type Department Care Team (Late st Contact Info) Description 05/12/2023 7:40 AM EST Laboratory Laboratory [facility] [address] [place] [address] [facility] [address] [place] [address] Elevated LFTs Allergies Active Allergy Reactions Criticality Noted Date Comments Zolpidem Tartrate Psych complications 6 Rosuvastatin 04/05/2020 Elevated lft Hydrochlorothiazide 12/29/2019 brenda Nsaids Other (Please comment) 04/14/2016 Gastric ulcer with anemia documented as of this encounter (statuses as of 05/12/2023) Medications Medication Sig Dispensed Refills Start Date End Date Status ferrous sulfate (FEOSOL) 325 (65 FE) MG Tablet TAKE ONE TABLET THREE TIMES DAILY 270 Tab 3 11/30/2018 Active The ChaparTOUCH DELICA LANCETS FINE MISC Use to test blood sugar 4 times daily dx e11.9 400 Each 3 03/09/2019 Active Misc. Devices [facility] Tracheostomy Care Kit #4601 1 Each 0 10/02/2019 Active Vitamin B-12 1000 MCG Oral Tablet Take 1 Tab by mouth daily. 90 Tab 3 03/07/2021 Active PheedoTouch Verio Flex System w/Device Kit Use as [...] group B, by GOLD 2017 classification ([facility]) Inhale via nebulizer . Use as directed. 1 Each 1 12/30/2021 Active Ipratropium-Albuter ol 0.5-2.5 (3) MG/3ML Inhalation Solution (Duoneb)Indications :COPD, group B, by GOLD 2017 classification ([facility]) Inhale via nebulizer 3 mL every 6 [...] 180 Tablet 3 09/04/2022 4 Active Tiotropium [place] Monohydrate 2.5 MCG/ACT Inhalation Aerosol Solution (Spiriva Respimat)Indication s:COPD, group B, by GOLD 2017 classification ([facility]) INHALE 2 PUFFS BY MOUTH IN THE MORNING 12 g 3 08/07/2022 4 Active Additional Information Patient taking differently:2 Puff Inhalation Daily(AM),Hasn't started it yet, Reported on 08/12/2022 Beclomethasone Diprop HFA 80 MCG/ACT Inhalation Aerosol Breath Activated (Qvar RediHaler)Indicatio ns:COPD, group B, by GOLD 2017 classification ([facility]) INHALE 1 PUFF IN THE MORNING AND [...] as of this encounter (statuses as of 05/12/2023) Active Problems Problem Noted Date Diagnosed Date [...] as of this encounter (statuses as of 05/12/2023) Resolved Problems Problem Noted Date Diagnosed Date [...] as of this encounter (statuses as of 05/12/2023) Immunizations Name Administration Dates Next Due COVID-19 [...] or making decisions? (5 years old or older No 11/29/2020 documented as of this encounter Plan of Treatment Upcoming Encounters Date Type Department Care Team (Late st Contact Info) Description 05/24/2023 9:00 AM EST Office Visit Orthopaedics [facility] [address] [place] [address] Javon Bunn, [address] [place] [address] 05/31/2023 11:00 AM EST Office Visit Pharmacy, [facility] [place] [address] [place] [address] Pharmacist1, [facility] [address] [place] [address] 09/30/2023 10:40 AM EDT Office Visit General Internal Medicine [facility] [place] [address] [place] [address] Orlin Castro MD [address] [place] [address] 10/05/2023 3:30 PM EDT Office Visit Dermatology [facility] [address] [place] [address] Ling Capellan PA-C [address] [facility] [address] 11/30/2023 9:30 AM EDT Imaging Radiology [facility] 1st [facility] [address] [place] [address] 02/17/2024 7:50 AM EDT Office Visit Optometry, [place] 16 [place] [address] Ari Staley, [place], MAGGY 16 [place] [address] 03/27/2024 8:40 AM EDT Office Visit Endocrinology, [place] [address] [place], [place] [phone] Nhung Monzon MD [address] [place] [address] Pending Results Name Type Priority Associated Diagnoses Date /Time BASIC METABOLIC PANEL Lab Routine Elevated LFTs 05/12/2023 9:01 AM EST HEPATIC FUNCTION PANEL Lab Routine Elevated LFTs 05/12/2023 9:01 AM EST Scheduled Procedures Name Priority Associated [...] 09/11/2022, 0303/2022, 09/09/2020, Additional history exists HbA1c 09/13/2023 03/15/2023, 06/0 02/2023, 09/07/2022, Additional history exists COLONOSCOPY-ANNUAL AGES 18-100 12/18/2023 12/17/2022, 04/29/2021, 10/15/2020, Additional history exists Diabetic Eye Exam 01/13/2024 01/12/2023, , 01/12/2023, Additional history exists TSH 03/15/2024 03/15/2023, 05/05, 03/06/2022, Additional history exists O2 ASSESSMENT COMPLETED IN PAST YEAR FOR COPD 03/18/2024 03/18/2023 Albumin/Creatinine Ratio 05/05/2024 023, 05/14/2022, 05/01/2022, Additional history exists GFR 05/05/2024 05/05/2023, 03/05, 05/14/2022, Additional history exists DXA Scan 05/12/2026 05/12/2022 [...] this encounter Medical Devices Implanted Type Area Quality Assurance Assessor Device Identifier Shelf Expiration Date Model / Serial / Lot Stent 10fr 7cm - [id number] Implanted:Qty: 1 on 06/17/2010 [place] [facility] [place] RADHA MONTANA 01/15/2013 [id number] / / [id number] Description:pancreas documented as of this encounter Visit Diagnoses Diagnosis Elevated LFTs Other abnormal blood chemistry documented in this encounter Advance Directives Latest [...] the patient have Health Care Power of Aws Consultant? No Care Teams Churn Tender Relationship Specialty Start Date End Date Orlin Castro MD [address] [place] [address] PCP - General Internal Medicine 04/27/19 documented as of this encounter
--- OUTSIDE RECORDS SUMMARY | 2023-06-17 09:53 | External Medical Summary | Summary of Care ---
Author Name Unknown Organization [facility] Address [address] [place] [address] Phone [phone] Care Team Providers Care Director Of Pharmacy Name Role Phone Orlin Castro MD Primary Care Provider + Encounter Details Date Type Department Care Team (Late st Contact Info) Description 05/17/2023 Telephone [facility] [address] [place] [address] Nhung Monzon MD [address] [place] [address] Allergies Active Allergy Reactions Criticality Noted Date Comments Zolpidem Tartrate Psych complications 6 Rosuvastatin 04/05/2020 Elevated lft Hydrochlorothiazide 12/29/2019 brenda Nsaids Other (Please comment) 04/14/2016 Gastric ulcer with anemia documented as of this encounter (statuses as of 05/17/2023) Medications Medication Sig Dispensed Refills Start Date [...] s:COPD, group B, by GOLD 2017 classification ([facility]) Inhale via nebulizer . Use as directed. 1 Each 1 12/30/2021 Active Ipratropium-Albuter ol 0.5-2.5 (3) MG/3ML Inhalation Solution (Duoneb)Indications :COPD, group B, by GOLD 2017 classification ([facility]) Inhale via nebulizer 3 mL [...] 180 Tablet 3 09/04/2022 4 Active Tiotropium [place] Monohydrate 2.5 MCG/ACT Inhalation Aerosol Solution (Spiriva Respimat)Indication s:COPD, group B, by GOLD 2017 classification ([facility]) INHALE 2 PUFFS BY MOUTH IN THE MORNING 12 g 3 08/07/2022 4 Active Additional Information Patient taking differently:2 Puff Inhalation Daily(AM),Hasn't started it yet, Reported on 08/12/2022 Beclomethasone Diprop HFA 80 MCG/ACT Inhalation Aerosol Breath Activated (Qvar RediHaler)Indicatio ns:COPD, group B, by GOLD 2017 classification ([facility]) INHALE 1 PUFF IN THE [...] hemoglobin A1c goal of less than 7.0% ([facility]) Use to test blood glucose [...] as of this encounter (statuses as of 05/17/2023) Active Problems Problem Noted Date Diagnosed Date [...] as of this encounter (statuses as of 05/17/2023) Resolved Problems Problem Noted Date Diagnosed Date [...] as of this encounter (statuses as of 05/17/2023) Immunizations Name Administration Dates Next Due COVID-19 [...] (15 years old or older) No 11/30/19 21 Cognitive Status Response Date of Assessm ent [...] clinic. ARELY Lee Jodie Alton, MD P [facility] Nurse Navigator Pool/Class Endocrine nurse: patient [...] 05/24/2023 9:00 AM EST Office Visit Orthopaedics [facility] [address] [place] [address] Javon Bunn, [address] [place] [address] 05/31/2023 11:00 AM EST Office Visit Pharmacy, [facility] 200 [place] [address] Pharmacist1, [facility] [address] [facility] [place] [address] 09/30/2023 10:40 AM EDT Office Visit General Internal Medicine [facility] [address] [place] [address] Oriln Castro MD [address] [facility] [place] [address] 10/05/2023 3:30 PM EDT Office Visit Dermatology [facility] [address] [facility] [place] [address] Ling Capellan PA-C [address] [place] [address] 11/30/2023 9:30 AM EDT Imaging Radiology [address] 132 [place] [address] 02/17/2024 7:50 AM EDT Office Visit Optometry, [place] 16 [place] [address] Rancho Chapman Jr., OD 16 [place] [address] 03/27/2024 8:40 AM EDT Office Visit Endocrinology, [place] [address] [place] [address] Nhung Monzon MD [address] [place], [place] [address] Scheduled Procedures Name Priority Associated Diagnoses Date/Ti [...] 10/22/2020, Additional history exists Mammogram 09/12/2023 09/11/2022, 0 03/2022, 09/09/2020, Additional history exists HbA1c 09/13/2023 [...] this encounter Medical Devices Implanted Type Area Steam Fitter Helper Device Identifier Shelf Expiration Date Model / Serial / Lot Stent 10fr 7cm - [id number] Implanted:Qty: 1 on 06/17/2010 at [place] [facility] [place] COOK : RADHA MONTANA 01/15/2013 [id number] / / [id number] Description:pancreas documented as of this encounter Advance [...] the patient have Health Care Power of Farebox Repairer? No Care Teams Director Of Pharmacy Relationship Specialty Start Date End Date Orlin Castro MD [address] [place] [facility] [place] [address] PCP - General Internal Medicine 04/27/19 documented as of this encounter
--- OUTSIDE RECORDS SUMMARY | 2023-06-17 09:53 | External Medical Summary ---
Author Name Unknown Address Unknown Organization K09:[facility] [address] [place] [address] Laboratory Report Ordering Provider Test Date Status DO KAYLEENCARLOSMIGUEL 05/12/2023 09:01:04 Final Observation Date Value Abnormality Reference (Units ) Status Albumin 05/12/2023 09:01:04 4.1 3.8-5.0 (g/dL) Final AST (Aspartate aminotransferase) 05/12/2023 09:01:04 27 10-35 (U/L) Final Alk Phos 05/12/2023 09:01:04 200 Above high normal 35-130 (U/L) Final ALT (Alanine aminotransferase) 05/12/2023 09:01:04 42 Above high normal 10-35 (U/L) Final Bilirubin, Total 05/12/2023 09:01:04 0.4 <=1.2 (mg/dL) Final Bilirubin, Direct 05/12/2023 09:01:04 <0.2 0.0-0.3 (mg/dL) Final Protein 05/12/2023 09:01:04 6.7 6.0-8.3 (g/dL) Final Performing Location [facility] [address] [place] [address]
--- OUTSIDE RECORDS SUMMARY | 2023-06-17 09:53 | External Medical Summary | Summary of Care ---
Author Name Unknown Organization [facility] Address [address] [place] [address] Phone [phone] Care Team Providers Care Air Defense Specialist Name Role Phone Orlin Castor MD Primary Care Provider + Reason for Visit * Reason Onset Date Comments Test Results 05/06/2023 Encounter Details Date Type Department Care Team (Late st Contact Info) Description 05/06/2023 Telephone General Internal Medicine [facility] [address] [facility] [place] [address] Orlin Castro MD [address] [place] [facility] [place] [address] Test Results Allergies Active Allergy Reactions Criticality Noted Date Comments Zolpidem Tartrate Psych complications 6 Rosuvastatin 04/05/2020 Elevated lft Hydrochlorothiazide 12/29/2019 brenda Nsaids Other (Please comment) 04/14/2016 Gastric ulcer with anemia documented as of this encounter (statuses as of 05/06/2023) Medications Medication Sig Dispensed Refills Start Date [...] s:COPD, group B, by GOLD 2017 classification ([facility]) Inhale via nebulizer . Use as directed. 1 Each 1 12/30/2021 Active Ipratropium-Albuter ol 0.5-2.5 (3) MG/3ML Inhalation Solution (Duoneb)Indications :COPD, group B, by GOLD 2017 classification ([facility]) Inhale via nebulizer 3 mL [...] 180 Tablet 3 09/04/2022 4 Active Tiotropium [place] Monohydrate 2.5 MCG/ACT Inhalation Aerosol Solution (Spiriva Respimat)Indication s:COPD, group B, by GOLD 2017 classification ([facility]) INHALE 2 PUFFS BY MOUTH IN THE MORNING 12 g 3 08/07/2022 4 Active Additional Information Patient taking differently:2 Puff Inhalation Daily(AM),Hasn't started it yet, Reported on 08/12/2022 Beclomethasone Diprop HFA 80 MCG/ACT Inhalation Aerosol Breath Activated (Qvar RediHaler)Indicatio ns:COPD, group B, by GOLD 2017 classification ([facility]) INHALE 1 PUFF IN THE [...] MEALS 180 Tablet 3 05/06/2022 4 Active Scar Gu In Vitro Strip (Glucose Blood)Indications:T ype 2 [...] as of this encounter (statuses as of 05/06/2023) Active Problems Problem Noted Date Diagnosed Date [...] as of this encounter (statuses as of 05/06/2023) Resolved Problems Problem Noted Date Diagnosed Date [...] as of this encounter (statuses as of 05/06/2023) Immunizations Name Administration Dates Next Due COVID-19 [...] encounter Miscellaneous Notes * Telephone Encounter - Ozzy Whitfield CMA - 05/06/2023 10:08 AM EDT Patient aware and verbalized understanding * Telephone Encounter - Ozzy Whitfield CMA - 05/06/2023 10:05 AM EDT ----- Message from Orlin Castro MD sent at 05/06/2023 9:31 AM EDT ----- Protein in urine better, good news Lft slightly worse. Stop all nsaid, alcohol, tylenol, recheck 1 week to follow documented in this encounter Plan of Treatment Upcoming Encounters Date Type Department Care Team (Late st Contact Info) Description 05/24/2023 9:00 AM EST Office Visit Orthopaedics [facility] [address] [place] [address] Javon Bunn, DO [address] [place] [address] 05/31/2023 11:00 AM EST Office Visit Pharmacy, [facility] [address] [place] [address] Pharmacist1, [facility] [address] [place] [address] 09/30/2023 10:40 AM EDT Office Visit General Internal Medicine [facility] [address] [facility] [place] [address] Orlin Castro MD [address] [facility] [place] [address] 10/05/2023 3:30 PM EDT Office Visit Dermatology [facility] [address] [place] [address] Ling Capellan PA-C [address] [place] [address] 11/30/2023 9:30 AM EDT Imaging Radiology [address] [place] [address] 02/17/2024 7:50 AM EDT Office Visit Optometry, [place] 16 [place] [address] Rancho Chapman Jr., OD 16 [place] [address] 03/27/2024 8:40 AM EDT Office Visit Endocrinology, [place] [address] [place], [place] [phone] Nhung Monzon MD [address] [place], [place] [phone] Scheduled Procedures Name Priority Associated Diagnoses Date/Ti [...] 09/09/2020, Additional history exists HbA1c 09/13/2023 03/15/2023, 02/2023, 09/07/2022, Additional history exists COLONOSCOPY-ANNUAL AGES 18-100 12/18/2023 12/17/2022, 04/29/2021, 10/15/2020, Additional history exists Diabetic Eye Exam 01/13/2024 01/12/2023, , 01/12/2023, Additional history exists TSH 03/15/2024 03/15/2023, 05/05, 03/06/2022, Additional history exists O2 ASSESSMENT COMPLETED IN PAST YEAR FOR COPD 03/18/2024 03/18/2023 Albumin/Creatinine Ratio 05/05/202405/05/ 023, 05/14/2022, 05/01/2022, Additional history exists GFR [...] this encounter Medical Devices Implanted Type Area Pin Setter Device Identifier Shelf Expiration Date Model / Serial / Lot Stent 10fr 7cm - [id number] Implanted:Qty: 1 on 06/17/2010 at [place] [facility] [place] COOK : RADHA NAN 01/15/2013 [id number] / / [id number] Description:pancreas documented as of this encounter Advance [...] the patient have Health Care Power of Mutual Fund Analyst? No Care Teams Air Defense Specialist Relationship Specialty Start Date End Date Orlin Castro MD 200 [place] [address] PCP - General Internal Medicine 04/27/19 documented as of this encounter
--- OUTSIDE RECORDS SUMMARY | 2023-06-17 09:53 | External Medical Summary | Summary of Care ---
Author Name Unknown Organization [facility] Address [address] [facility] [place] [address] Phone [phone] Care Team Providers Care Shucker Name Role Phone Orlin Castro MD Primary Care Provider + Reason for Visit * Reason Comments Follow Up Bilat knee Encounter Details Date Type Department Care Team (Latest Contact Info) Description 05/24/2023 9:00 AM EST Office Visit Orthopaedics [facility] [address] [place] [address] Javon Bunn DO [address] [place] [address] Primary osteoarthritis of both knees* Allergies Active [...] B, by GOLD 2017 classification ([facility]) Inhale via nebulizer . Use as directed. 1 Each 1 12/30/2021 Active Ipratropium-Albuter ol 0.5-2.5 (3) MG/3ML Inhalation Solution (Duoneb)Indications :COPD, group B, by GOLD 2017 classification ([facility]) Inhale via nebulizer 3 mL [...] 180 Tablet 3 09/04/2022 4 Active Tiotropium [place] Monohydrate 2.5 MCG/ACT Inhalation Aerosol Solution (Spiriva Respimat)Indication s:COPD, group B, by GOLD 2017 classification ([facility]) INHALE 2 PUFFS BY MOUTH IN THE MORNING 12 g 3 08/07/2022 4 Active Additional Information Patient taking differently:2 Puff Inhalation Daily(AM),Hasn't started it yet, Reported on 08/12/2022 Beclomethasone Diprop HFA 80 MCG/ACT Inhalation Aerosol Breath Activated (Qvar RediHaler)Indicatio ns:COPD, group B, by GOLD 2017 classification ([facility]) INHALE 1 PUFF IN THE [...] hemoglobin A1c goal of less than 7.0% ([facility]) Use to test blood glucose [...] hemoglobin A1c goal of less than 7.0% ([facility]),Diabetes mellitus with proteinuria Take by mouth [...] - 05/24/2023 9:00 AM EST Mallory Soto [id number] INJECTION NOTE Mallory Soto is a 67 year old female who presents to [facility] for Bilateral knee. injections Last [...] Javon Bunn DO Primary Care Sports Medicine [facility] [place] [address] Procedure note (knee injection), bilateral [...] AM EST Office Visit Pharmacy, [facility] [place] [address] [place] [address] [address] Pharmacist1, [facility] [address] [place] [address] 08/25/2023 9:30 AM EST Office Visit Orthopaedics [facility] [address] [place] [address] Javon Bunn, DO 132 [facility] [place] [address] 09/30/2023 10:40 AM EDT Office Visit General Internal Medicine [facility] [address] [place] [address] Orlin Castro MD 200 [facility] [place] [address] 10/05/2023 3:30 PM EDT Office Visit Dermatology [facility] 200 [facility] [place] [address] Ling Capellan PA-C [address] [place] [address] 11/30/2023 9:30 AM EDT Imaging Radiology [address] [place] [address] 02/17/2024 7:50 AM EDT Office Visit Optometry, [place] [address] [place] [address] Rancho Chapman Jr., OD [address] [place] [address] 03/27/2024 8:40 AM EDT Office Visit Endocrinology, [place] [address] [place] [address] Nhung Monzon MD [address] [place], [place] [address] Scheduled Orders Name Type Priority Associated Diagnoses [...] this encounter Medical Devices Implanted Type Area Information Technology Director Device Identifier Shelf Expiration Date Model / Serial / Lot Stent 10fr 7cm - [id number] Implanted:Qty: 1 on 06/17/2010 at [facility] COOK : RADHA [place] 01/15/2013 [id number] / / [id number] Description:pancreas documented as of this encounter Visit [...] Code 06/04/2010 11:18 PM 06/10/2010 6:26 PM Thi s order reflects the patients wishes and were consensually agreed upon. Question Answer Comments Discussion of Advance Directives occurred with: Patient Does the patient have a Living Will? No Does the patient have Health Care Power of Other Sales Support Worker? No Care Teams Shucker Relationship Specialty Start Date End Date Orlin Castro MD [address] [place] [address] PCP - General Internal Medicine 04/27/19 documented as of this encounter
--- OUTSIDE RECORDS SUMMARY | 2023-06-17 09:53 | External Medical Summary | Summary of Care ---
Author Name Unknown Organization [facility] Address [address] [place] [address] Phone [phone] Care Team Providers Care Site Administrator Name Role Phone Orlin Castro MD Primary Care Provider + Reason for Visit * Reason Onset Date Comments Test Results 05/14/2023 Encounter Details Date Type Department Care Team (Late st Contact Info) Description 05/14/2023 Telephone General Internal Medicine [facility] 200 [place] [address] Orlin Castro MD [address] [facility] [place] [address] Test Results Allergies Active Allergy Reactions Criticality [...] s:COPD, group B, by GOLD 2017 classification ([facility]) Inhale via nebulizer . Use as directed. 1 Each 1 12/30/2021 Active Ipratropium-Albuter ol 0.5-2.5 (3) MG/3ML Inhalation Solution (Duoneb)Indications :COPD, group B, by GOLD 2017 classification ([facility]) Inhale via nebulizer 3 mL every [...] 180 Tablet 3 09/04/2022 4 Active Tiotropium [place] Monohydrate 2.5 MCG/ACT Inhalation Aerosol Solution (Spiriva Respimat)Indication s:COPD, group B, by GOLD 2017 classification ([facility]) INHALE 2 PUFFS BY MOUTH IN THE MORNING 12 g 3 08/07/2022 4 Active Additional Information Patient taking differently:2 Puff Inhalation Daily(AM),Hasn't started it yet, Reported on 08/12/2022 Beclomethasone Diprop HFA 80 MCG/ACT Inhalation Aerosol Breath Activated (Qvar RediHaler)Indicatio ns:COPD, group B, by GOLD 2017 classification ([facility]) INHALE 1 PUFF IN THE MORNING [...] encounter Miscellaneous Notes * Telephone Encounter - Kyleigh Gilliam LPN - 05/17/2023 9:56 AM EST Patient returned call. Informed of message. Verbalized understanding. * Telephone Encounter - Ozzy Whitfield CMA - 05/14/2023 3:14 PM EST Called, left message for patient to return call. * Telephone Encounter - Ozzy Whitfield CMA - 05/14/2023 3:13 PM EST ----- Message from Orlin Castro MD sent at 05/14/2023 8:11 AM EST ----- Lft improving, but gfr decreased, make sure she is staying hydrated, recheck labs 2 weeks to follow documented in this encounter Plan of Treatment Upcoming Encounters Date Type Department Care Team (Late st Contact Info) Description 05/24/2023 9:00 AM EST Office Visit Orthopaedics [facility] 132 [facility] [place] [address] Javon Bunn, DO 132 [facility] [place] [address] 05/31/2023 11:00 AM EST Office Visit Pharmacy, [facility] [address] [facility] [place] [address] Pharmacist1, [facility] 200 [facility] [place] [address] 09/30/2023 10:40 AM EDT Office Visit General Internal Medicine [facility] [address] [facility] [place] [address] Orlin Castro MD [address] [facility] [place] [address] 10/05/2023 3:30 PM EDT Office Visit Dermatology [facility] [address] [place] [place] [address] Ling Capellan PA-C [address] [place] [address] 11/30/2023 9:30 AM EDT Imaging Radiology [facility] 132 [facility] [place] [address] 02/17/2024 7:50 AM EDT Office Visit Optometry, [place] 16 [place] [address] Ari Staley, Rancho Bullard OD 16 [place] [address] 03/27/2024 8:40 AM EDT Office Visit Endocrinology, [place] [address] [place] [address] Nhung Monzon MD [address] [facility] [place] [address] Scheduled Procedures Name Priority Associated Diagnoses Date/Ti [...] this encounter Medical Devices Implanted Type Area Sharepoint Web Developer Device Identifier Shelf Expiration Date Model / Serial / Lot Stent 10fr 7cm - [id number] Implanted:Qty: 1 on 06/17/2010 at [place] [facility] [place] : RADHA [place] 01/15/2013 [id number] / / [id number] Description:pancreas documented as of this encounter Advance [...] the patient have Health Care Power of Computerized Mill Recorder? No Care Teams Site Administrator Relationship Specialty Start Date End Date Orlin Castro MD [address] [place] [address] PCP - General Internal Medicine 04/27/19 documented as of this encounter
--- OUTSIDE RECORDS SUMMARY | 2023-06-17 09:54 | External Medical Summary | Summary of Care ---
Author Name Unknown Organization [facility] Address [address] [place] [address] Phone [phone] Care Team Providers Care Health Economist Name Role Phone Orlin Castro MD Primary Care Provider + Reason for Visit * Reason Onset Date Comments Forms Request 04/19/2023 Encounter Details Date Type Department Care Team Description 04/19/2023 Telephone General Internal Medicine [facility] 200 [facility] [place] [address] Orlin Castro MD 200 [place] [address] Forms Request Allergies Active Allergy Reactions Severity Noted Date Comments Zolpidem Tartrate Psych complications 6 Rosuvastatin 04/05/2020 Elevated lft Hydrochlorothiazide 12/29/2019 brenda Nsaids Other (Please comment) 04/14/2016 Gastric ulcer with anemia documented as of this encounter (statuses as of 04/19/2023) Medications Medication Sig Dispensed Refills Start Date End Date Status ferrous sulfate (FEOSOL) 325 (65 FE) MG Tablet TAKE ONE TABLET THREE TIMES DAILY 270 Tab 3 11/30/2018 Active Happy IndustryTOUCH DELICA LANCETS FINE MISC Use to test blood sugar 4 times daily dx e11.9 400 Each 3 03/09/2019 Active Misc. Devices [facility] Tracheostomy Care Kit #4601 1 Each 0 10/02/2019 Active Vitamin B-12 1000 MCG Oral Tablet Take 1 Tab by mouth daily. 90 Tab 3 03/07/2021 Active WagaduuTouch Verio Flex System w/Device Kit Use as [...] group B, by GOLD 2017 classification ([facility]) Inhale via nebulizer . Use as directed. 1 Each 1 12/30/2021 Active Ipratropium-Albuter ol 0.5-2.5 (3) MG/3ML Inhalation Solution (Duoneb)Indications :COPD, group B, by GOLD 2017 classification ([facility]) Inhale via nebulizer 3 mL every 6 [...] 180 Tablet 3 09/04/2022 4 Active Tiotropium [place] Monohydrate 2.5 MCG/ACT Inhalation Aerosol Solution (Spiriva Respimat)Indication s:COPD, group B, by GOLD 2017 classification ([facility]) INHALE 2 PUFFS BY MOUTH IN THE MORNING 12 g 3 08/07/2022 4 Active Additional Information Patient taking differently:2 Puff Inhalation Daily(AM),Hasn't started it yet, Reported on 08/12/2022 Beclomethasone Diprop HFA 80 MCG/ACT Inhalation Aerosol Breath Activated (Qvar RediHaler)Indicatio ns:COPD, group B, by GOLD 2017 classification ([facility]) INHALE 1 PUFF IN THE MORNING AND [...] 180 Tablet 3 05/06/2022 4 Active OneTouch Vermiguel In Vitro Strip (Glucose Blood)Indications:T ype 2 diabetes mellitus with hemoglobin A1c goal of less than 7.0% ([facility]) Use to test blood glucose 4 times [...] as of this encounter (statuses as of 04/19/2023) Active Problems Problem Noted Date Primary aldosteronism 03/15/2023 Thyroid cancer 03/15/2023 Pancreatic duct dilated 01/06/2022 Adrenal nodule 01/06/2022 Psoriasis 08/21/2021 Diabetes mellitus with proteinuria 01/26 Obesity, Class I, BMI 30.0-34.9 (see act ual BMI) 01/24/2021 COPD, group B, by GOLD 2017 classificati on 10/16/2019 Overview: Per COPD GOLD Classification Mixed hyperlipidemia 03/13/2019 Type 2 diabetes mellitus with hemoglobin A1c goal of less than 7.0% 03/10/2019 Hypertension goal BP (blood pressure) < 140/90 03/10/2019 Family history of familial adenomatous p olyposis 03/10/2019 Gastroesophageal reflux disease without esophagitis 03/10/2019 History of pancreatic cancer 06/08/2017 History of thyroid cancer 09/24/2015 Mitral valve regurgitation 04/30/2015 Tracheostomy status 09/05/2013 Postsurgical hypothyroidism 10/20/2012 Insomnia 01/31/2010 documented as of this encounter (statuses as of 04/19/2023) Resolved Problems Problem Noted Date Resolved Date Type 2 diabetes mellitus wit h stage 3a chronic kidney disease, without long-term current use of insulin 08/21/202109/02 Chronic obstructive pulmonary disease 07/31/2019 2019 Overview: Per COPD GOLD Classification Type 2 diabetes mellitus wit h stage 3 chronic kidney disease, without long-term current use of insulin 03/10/201902/04 History of MRSA infection 12/29/20182018 Overview: THROAT Hypertensive kidney disease with chronic kidney disease stage III 11/10/2018 03/04/2022 History of colon polyps 11/10/2018 02/15/20 19 Overview: Tubular adenoma Family history of FAP (familial adenomatous poly posis) 09/20/2017 02/14/2019 History of colon cancer 06/08/2017 02/15/20 History of pancreatic cancer 06/08/2017 Kidney disease, chronic, stage III (GFR 30-59 ml /min) 04/13/2016 12/29/2018 Overview: Per CKD protocol #1 Need for pneumococcal vaccination 02/21/2016 04/14/2016 Acute frontal sinusitis 01/20/2016 05/19/20 16 Abnormal results of liver function studies 04/3005/05/2019 General medical exam 04/12/2015 05/19/2016 Bronchitis, complicated 07/03/2014 05/19/20 16 Dermatitis 04/10/2014 05/19/2016 Trigger finger 04/10/2014 04/12/2015 Spasm of muscle 03/13/2014 05/19/2016 Bronchitis, complicated 09/05/2013 05/19/20 16 Impaired glucose tolerance 01/16/201309/05 Renal insufficiency 12/19/2012 05/19/2016 Anemia 12/19/2012 09/05/2013 Bacterial pneumonia 12/16/2012 09/05/2013 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 DVT prophylaxis 12/08/2012 05/19/2016 Pre-operative cardiovascular examination 013 12/16/2012 Preop cardiovascular exam 11/09/20122012 Dyslipidemia, goal to be determined 07/19/2012 09/05/2013 Other atopic dermatitis 07/19/2012 02/15/20 19 Overview: ICD-10 update of inactive term Abnormal results of liver function studies 07/0709/05/2013 Dermatitis 03/09/2012 07/01/2012 Acute bronchitis, complicated 12/31/2011 Carpal tunnel syndrome 11/21/2010 2 Edema 10/08/2010 07/01/2012 Other screening mammogram 09/29/20102015 Routine medical exam 09/29/2010 05/19/2016 TUBULAR ADENOMA- duodenum 07/07/20102018 Other specified pre-operative examination 200907/01/2012 Non- jaundice 06/04/2010 07/01/2012 Swelling, mass, or lump in chest 05/22/2010 09/05/2013 Other adverse food reactions, not elsewhere clas sified 04/03/2010 07/01/2012 Acute sinusitis 01/31/2010 07/01/2012 Obesity, Class II, BMI 35-39.9, isolated (see ac tual BMI) 12/16/2009 07/01/2012 Overview: Per Obesity Protocol, #19 Bacterial pneumonia 11/01/2009 07/01/2012 Encounter for routine gynecological examination 11/01/2009 05/19/2016 Overview: ICD-10 update of inactive term Spasm of muscle 11/01/2009 07/01/2012 HTN, goal below 130/80 9 Other specified acquired hypothyroidism 09/05/2013 Overview: s/p goiter removal History of thyroid cancer 2018 Overview: removed [facility] Lumbago 09/05/2013 Overview: chronic since childhood Family history of colon cancer 0 02/14/2019 Overview: [place]. FAP---carmina, ft kyle Dermatitis 07/01/2012 documented as of this encounter (statuses as of 04/19/2023) Immunizations Name Administration Dates Next Due COVID-19 [...] drink = 0.6 oz pur e alcohol) Food Insecurity Answer Date Recorded Within the past 12 months, y ou worried that your food would run out before you got money to buy more. Never true 06/09/2019 Within the past 12 months, t he food you bought just didn't last and you didn't have money to get more. Never true 06/09/2019 Sex Assigned at Date Recorded Female 12/29/2018 7:43 AM E DT Job Start Date Occupation Industry Not on [...] encounter Miscellaneous Notes * Telephone Encounter - Sury Butterfield - 04/19/2023 2:43 PM EDT Pt dropped off disability papwork from the state Please fax when completed [phone] Please call pt when this is done [phone] documented in this encounter Plan of Treatment Upcoming Encounters Date Type Specialty Care Team Description 05/24/2023 Office Visit Orthopedics Javon Bunn, DO [address] [place] [address] 05/31/2023 Office Visit Pharmacy Pharmacist1, [facility] [address] [place] [address] 09/30/2023 Office Visit Internal Medicine Orlin Castro MD [address] [place] [address] 10/05/2023 Office Visit Dermatology Ling Capellan PA-C [address] [facility] [place] [address] 11/30/2023 Imaging Radiology 02/17/2024 Office Visit Optometry Ari Staley, Rancho Bullard, OD [address] [place] [address] 03/27/2024 Office Visit Endocrinology Nhung Monzon MD [address] [place] [address] Scheduled Procedures Name Priority Associated Diagnoses Date/Ti me COLONOSCOPY FLEXIBLE PROXIMAL DIAGNOSTIC Recall FAP (familial adenomatous polyposis) ESOPHAGOGASTRODUODENOSCOPY ( EGD), FLEXIBLE, TRANSORAL, DIAGNOSTIC Recall FAP (familial adenomatous polyposis) Health Maintenance Due Date Last Done Comments *COPD SEVERITY VERIFIED BY PFT 08/02/2019 Depression Screening 03/04/2023 03/04/2022 COVID-19 Vaccine ( season) 2023 07/07/2022, 02/15/2021, 01/09/2021, Additional history exists Albumin/Creatinine Ratio 05/14/20232 022, 05/01/2022, 03/06/2022, Additional history exists Diabetic Foot Exam 08/07/2023 08/07/2022, 0 08/21/2021, 10/22/2020, Additional history exists Mammogram 09/12/2023 09/11/2022, 030 03/2022, 09/09/2020, Additional history exists HbA1c 09/13/2023 03/15/2023, 06/0 02/2023, 09/07/2022, Additional history exists COLONOSCOPY-ANNUAL AGES 18-100 12/18/2023 12/17/2022, 04/29/2021, 10/15/2020, Additional history exists DIABETES-EYE EXAM 01/13/2024 01/12/2023, , 01/12/2023, Additional history exists GFR 03/15/2024 03/15/2023, 05/05, 03/06/2022, Additional history exists TSH 03/15/2024 03/15/2023, 05/05, 03/06/2022, Additional history exists O2 ASSESSMENT COMPLETED IN PAST YEAR FOR COPD 03/18/2024 03/18/2023 DXA Scan 05/12/2026 05/12/2022 Lipid Panel 10/27/2027 [...] this encounter Medical Devices Implanted Type Area Clean Room Operator Device Identifier Shelf Expiration Date Model / Serial / Lot Stent 10fr 7cm - [id number] Implanted:Qty: 1 on 06/17/[address] [facility] NAN : RADHA [place] 01/15/2013 [id number] / / [id number] Description:pancreas documented as of this encounter Advance [...] the patient have Health Care Power of Consumer Affairs Manager? No Care Teams Health Economist Relationship Specialty Start Date End Date Orlin Castro MD 200 [place] [address] PCP - General Internal Medicine 04/27/19 documented as of this encounter
--- OUTSIDE RECORDS SUMMARY | 2023-06-17 09:54 | External Medical Summary ---
Author Name Unknown Address Unknown Organization K01:[facility] [address] [facility] [place] [address] Laboratory Report Ordering Provider Test Date Status IVY DE JESUS 05/05/2023 09:02:25 Final Observation Date Value Abnormality Reference (Units ) Status Color of Urine by Auto 05/05/2023 09:02:25 Light Yellow Colorless, Light Yellow, Yellow, Dark Yellow Final Clarity, Urine 05/05/2023 09:02:25 Clear Clear Final Glucose [Mass/volume] in Urine by Automated test strip 05/05/2023 09:02:25 Negative Negative (mg/dL) Final Bilirubin.total [Presence] in Urine by Automated test strip 05/05/2023 09:02:25 Negative Negative Final Ketones [Mass/volume] in Urine by Automated test strip 05/05/2023 09:02:25 Negative Negative (mg/dL) Final Specific gravity, Urine 05/05/2023 09:02:25 1.022 1.003-1.030 Final Hemoglobin [Presence] in Urine by Automated test strip 05/05/2023 09:02:25 Negative Negative Final pH, Urine 05/05/2023 09:02:25 6.0 5.0-7.5 (Units) Final Protein [Mass/volume] in Urine by Automated test strip 05/05/2023 09:02:25 30 Abnormal Negative (mg/dL) Final Urobilinogen [Mass/volume] in Urine by Automated test strip 05/05/2023 09:02:25 Normal Normal (mg/dL) Final Nitrite [Presence] in Urine by Automated test strip 05/05/2023 09:02:25 Negative Negative Final Leukocyte esterase [Presence] in Urine by Automated test strip 05/05/2023 09:02:25 Negative Negative Final RBC, Urine 05/05/2023 09:02:25 0-2 0-2 (/HPF) Final WBC, Urine 05/05/2023 09:02:25 0-2 0-2 (/HPF) Final Bacteria [#/area] in Urine sediment by Microscopy high power field 05/05/2023 09:02:25 0-25 0-25 (/HPF) Final Hyaline casts, Urine 05/05/2023 09:02:25 1-4 Abnormal None (/LPF) Final Performing Location LAB[facility]ATORY [facility] - [facility] [address] [facility] [address]
--- OUTSIDE RECORDS SUMMARY | 2023-06-17 09:54 | External Medical Summary ---
Author Name Unknown Address Unknown Organization K01:[facility] - [address] [place] [address] Laboratory Report Ordering Provider Test Date Status IVY DE JESUS 05/05/2023 08:59:51 Final Observation Date Value Abnormality Reference (Units ) Status Lactic Acid 05/05/2023 08:59:51 1.3 0.4-2.0 (mmol/L) Final Performing Location [facility] - [address] [place] [address]
--- OUTSIDE RECORDS SUMMARY | 2023-06-17 09:54 | External Medical Summary | Summary of Care ---
Author Name Unknown Organization [facility] Address [address] [place] [address] Phone [phone] Care Team Providers Care Jeeper Operator Name Role Phone Orlin Castro MD Primary Care Provider + Reason for Visit * Reason Onset Date Comments Forms Request 04/19/2023 Encounter Details Date Type Department Care Team (Late st Contact Info) Description 04/19/2023 Telephone General Internal Medicine [facility] 200 [place] [address] Orlin Castro MD 200 [facility] [place] [address] Forms Request Allergies Active Allergy Reactions Criticality Noted Date Comments Zolpidem Tartrate Psych complications 6 Rosuvastatin 04/05/2020 Elevated lft Hydrochlorothiazide 12/29/2019 brenda Nsaids Other (Please comment) 04/14/2016 Gastric ulcer with anemia documented as of this encounter (statuses as of 04/28/2023) Medications Medication Sig Dispensed Refills Start Date [...] group B, by GOLD 2017 classification ([facility]) Inhale via nebulizer . Use as directed. 1 Each 1 12/30/2021 Active Ipratropium-Albuter ol 0.5-2.5 (3) MG/3ML Inhalation Solution (Duoneb)Indications :COPD, group B, by GOLD 2017 classification ([facility]) Inhale via nebulizer 3 mL [...] 180 Tablet 3 09/04/2022 4 Active Tiotropium [place] Monohydrate 2.5 MCG/ACT Inhalation Aerosol Solution (Spiriva Respimat)Indication s:COPD, group B, by GOLD 2017 classification ([facility]) INHALE 2 PUFFS BY MOUTH IN THE MORNING 12 g 3 08/07/2022 4 Active Additional Information Patient taking differently:2 Puff Inhalation Daily(AM),Hasn't started it yet, Reported on 08/12/2022 Beclomethasone Diprop HFA 80 MCG/ACT Inhalation Aerosol Breath Activated (Qvar RediHaler)Indicatio ns:COPD, group B, by GOLD 2017 classification ([facility]) INHALE 1 PUFF IN THE [...] as of this encounter (statuses as of 04/28/2023) Active Problems Problem Noted Date Diagnosed Date [...] as of this encounter (statuses as of 04/28/2023) Resolved Problems Problem Noted Date Diagnosed Date [...] colon cancer 02/14/2019 Overview: [place]. FAP---carmina, ft klye Dermatitis 07/01/2012 documented as of this encounter (statuses as of 04/28/2023) Immunizations Name Administration Dates Next Due COVID-19 [...] Telephone Encounter - Ozzy Whitfield CMA - 04/28/2023 3:49 PM EDT Called, left message for patient to return call. Form has been faxed, copy sent to scanning * Telephone Encounter - Sury Butterfield - 04/19/2023 2:43 PM EDT Pt dropped off disability papwork from the state Please fax when completed [phone] Please call pt when this is done [phone] documented in this encounter Plan of Treatment Upcoming Encounters Date Type Department Care Team (Late st Contact Info) Description 05/24/2023 9:00 AM EST Office Visit Orthopaedics [address] [place] [address] Javon Bunn, DO [address] [place] [address] 05/31/2023 11:00 AM EST Office Visit Pharmacy, [facility] [address] [place] [address] Pharmacist1, [facility] [address] [facility] [place] [address] 09/30/2023 10:40 AM EDT Office Visit General Internal Medicine [facility] 200 [place] [address] Orlin Castro MD 200 [facility] [place] [address] 10/05/2023 3:30 PM EDT Office Visit Dermatology [facility] 200 [place] [address] Ling Capellan PA-C 3[address] [place] [address] 11/30/2023 9:30 AM EDT Imaging Radiology [address] 132 [place] [address] 02/17/2024 7:50 AM EDT Office Visit Optometry, [place] 16 [place] [address] Rancho Chapman Jr., OD 16 [place] [address] 03/27/2024 8:40 AM EDT Office Visit Endocrinology, [place] [address] [place], [place] [phone] Nhung Monzon MD [address] [place], [place] [phone] Scheduled Procedures Name Priority Associated Diagnoses Date/Ti me COLONOSCOPY FLEXIBLE PROXIMAL DIAGNOSTIC Recall FAP (familial adenomatous polyposis) ESOPHAGOGASTRODUODENOSCOPY ( EGD), FLEXIBLE, TRANSORAL, DIAGNOSTIC Recall FAP (familial adenomatous polyposis) Health Maintenance Due Date Last Done Comments *COPD SEVERITY VERIFIED BY PFT 08/02/2019 Depression Screening 03/04/2023 03/04/2022 COVID-19 Vaccine ( season) 2023 07/07/2022, 02/15/2021, 01/09/2021, Additional history exists Albumin/Creatinine Ratio 05/14/2023 022, 05/01/2022, 03/06/2022, Additional history exists Diabetic [...] this encounter Medical Devices Implanted Type Area Car Porter Device Identifier Shelf Expiration Date Model / Serial / Lot Stent 10fr 7cm - [id number] Implanted:Qty: 1 on 06/17/2010 at [facility] COOK : RADHA MONTANA 01/15/2013 [id number] / / [id number] Description:pancreas documented as of this encounter Advance [...] the patient have Health Care Power of Director Learning Services? No Care Teams Jeeper Operator Relationship Specialty Start Date End Date Orlin Castro MD 200 [place], [place] [phone] PCP - General Internal Medicine 04/27/19 documented as of this encounter
--- OUTSIDE RECORDS SUMMARY | 2023-06-17 09:54 | External Medical Summary ---
Author Name Unknown Address Unknown Organization K09[facility] [place] [address] Laboratory Report Ordering Provider Test Date Status IVY DE JESUS 05/05/2023 08:59:51 Final Observation Date Value Abnormality Reference (Units ) Status BUN 05/05/2023 08:59:51 15 6-20 (mg/dL) Final Creatinine 05/05/2023 08:59:51 0.9 0.5-1.0 (mg/dL) Final Glomerular filtration rate/1.73 sq M.predicted [Volume Rate/Area] in Serum, Plasma or Blood by Creatinine-based formula (CKD-EPI) 05/05/2023 08:59:51 67 >=60 (mL/min) Final eGFR is calculated based on the CKD-EPI 2020 equation SODIUM 05/05/2023 08:59:51 143 135-146 (m mol/L) Final Potassium 05/05/2023 08:59:51 3.9 3.5-5.1 (m mol/L) Final Cl 05/05/2023 08:59:51 103 98-107 (mm ol/L) Final CO2 05/05/2023 08:59:51 29 22-32 (mmo l/L) Final Anion gap 05/05/2023 08:59:51 11 7-15 (mmol /L) Final Glucose 05/05/2023 08:59:51 158 Above high normal 70 -120 (mg/dL) Final Calcium 05/05/2023 08:59:51 8.8 8.4-10.2 ( mg/dL) Final Performing Location [facility] [place] [address]
--- OUTSIDE RECORDS SUMMARY | 2023-06-17 09:54 | External Medical Summary | Summary of Care ---
Author Name Unknown Organization [facility] Address [address] [place] [address] Phone [phone] Care Team Providers Care Treasury Specialist Name Role Phone Orlin Castro MD Primary Care Provider + Reason for Visit * Reason Comments Outpatient Testing Encounter Details Date Type Department Care Team (Late st Contact Info) Description 05/05/2023 9:50 AM EDT Laboratory Laboratory [facility] [address] [place] [address] [facility] [address] [place] [address] Elevated LFTs; Metabolic acidosis; Diabetes mellitus with proteinuria Allergies Active Allergy Reactions Criticality Noted Date Comments Zolpidem Tartrate Psych complications 6 Rosuvastatin 04/05/2020 Elevated lft Hydrochlorothiazide 12/29/2019 brenda Nsaids Other (Please comment) 04/14/2016 Gastric ulcer with anemia documented as of this encounter (statuses as of 05/05/2023) Medications Medication Sig Dispensed Refills Start Date [...] B, by GOLD 2017 classification ([facility]) Inhale via nebulizer . Use as directed. 1 Each 1 12/30/2021 Active Ipratropium-Albuter ol 0.5-2.5 (3) MG/3ML Inhalation Solution (Duoneb)Indications :COPD, group B, by GOLD 2017 classification ([facility]) Inhale via nebulizer 3 mL every [...] 180 Tablet 3 09/04/2022 4 Active Tiotropium [place] Monohydrate 2.5 MCG/ACT Inhalation Aerosol Solution (Spiriva Respimat)Indication s:COPD, group B, by GOLD 2017 classification ([facility]) INHALE 2 PUFFS BY MOUTH IN THE MORNING 12 g 3 08/07/2022 4 Active Additional Information Patient taking differently:2 Puff Inhalation Daily(AM),Hasn't started it yet, Reported on 08/12/2022 Beclomethasone Diprop HFA 80 MCG/ACT Inhalation Aerosol Breath Activated (Qvar RediHaler)Indicatio ns:COPD, group B, by GOLD 2017 classification ([facility]) INHALE 1 PUFF IN THE MORNING [...] MEALS 180 Tablet 3 05/06/2022 4 Active Ayushuch Vermiguel In Vitro Strip (Glucose Blood)Indications:T ype [...] as of this encounter (statuses as of 05/05/2023) Active Problems Problem Noted Date Diagnosed Date [...] as of this encounter (statuses as of 05/05/2023) Resolved Problems Problem Noted Date Diagnosed Date [...] as of this encounter (statuses as of 05/05/2023) Immunizations Name Administration Dates Next Due COVID-19 [...] 05/24/2023 9:00 AM EST Office Visit Orthopaedics [facility] [address] [place] [address] Javon Bunn, [address] [place] [address] 05/31/2023 11:00 AM EST Office Visit Pharmacy, [facility] [place] [address] [place] [address] [address] [address] Pharmacist1, [facility] [address] [place] [address] 09/30/2023 10:40 AM EDT Office Visit [facility] [place] [address] [place] [address] Orlin Castro MD [address] [place] [address] 10/05/2023 3:30 PM EDT Office Visit Dermatology [facility] [place] [address] [place] [address] Ling Capellan PA-C [address] [facility] [place] [address] 11/30/2023 9:30 AM EDT Imaging Radiology [facility] 1st [facility] [address] [place] [address] 02/17/2024 7:50 AM EDT Office Visit Optometry, [place] 16 [place] [address] Ari Staley, [place], 16 [place] [address] 03/27/2024 8:40 AM EDT Office Visit Endocrinology, [place] [address] [place] [address] Nhung Monzon MD [address] [place], [place] [phone] Pending Results Name Type Priority Associated Diagnoses Date /Time HEPATIC FUNCTION PANEL Lab Routine Elevated LFTs 05/05/2023 8:59 AM EDT BASIC METABOLIC PANEL Lab Routine Metabolic acidosis 05/05/2023 8:59 AM EDT LACTATE Lab Routine Metabolic acidosis 05/05/2023 8:59 AM EDT ALBUMIN / CREATININE RATIO, URINE Lab Routine Diabetes mellitus with proteinuria 05/05/2023 9:02 AM EDT URINALYSIS, REFLEX TO MICROSCOPIC Lab Routine Metabolic acidosis 05/05/2023 9:02 AM EDT Scheduled Procedures Name Priority Associated Diagnoses Date/Ti [...] 03/0 03/2022, 09/09/2020, Additional history exists HbA1c 09/13/2023 [...] this encounter Medical Devices Implanted Type Area Skein Bander Device Identifier Shelf Expiration Date Model / Serial / Lot Stent 10fr 7cm - [id number] Implanted:Qty: 1 on 06/17/2010 at [facility] COOK : RADHA MONTANA 01/15/2013 [id number] / / [id number] Description:pancreas documented as of this encounter Visit Diagnoses Diagnosis Elevated LFTs Other abnormal blood chemistry Metabolic acidosis Acidosis Diabetes mellitus with proteinuria documented in this [...] the patient have Health Care Power of Stenographer Secretary? No Care Teams Treasury Specialist Relationship Specialty Start Date End Date Orlin Castro MD 200 [facility] [place] [address] PCP - General Internal Medicine 04/27/19 documented as of this encounter
--- OUTSIDE RECORDS SUMMARY | 2023-06-17 09:54 | External Medical Summary | Summary of Care ---
Author Name Unknown Organization [facility] Address [address] [place] [address] Phone [phone] Care Team Providers Care Caretaker Name Role Phone Orlin Castro MD Primary Care Provider + Reason for Visit * Reason Onset Date Comments Forms Request 04/19/2023 Encounter Details Date Type Department Care Team (Late st Contact Info) Description 04/19/2023 Telephone General Internal Medicine [facility] [address] [facility] [place] [address] Orlin Castro MD 200 [facility] [place] [address] Forms Request Allergies Active Allergy Reactions Criticality Noted Date Comments Zolpidem Tartrate Psych complications 6 Rosuvastatin 04/05/2020 Elevated lft Hydrochlorothiazide 12/29/2019 brenda Nsaids Other (Please comment) 04/14/2016 Gastric ulcer with anemia documented as of this encounter (statuses as of 04/27/2023) Medications Medication Sig Dispensed Refills Start Date [...] B, by GOLD 2017 classification ([facility]) Inhale via nebulizer . Use as directed. 1 Each 1 12/30/2021 Active Ipratropium-Albuter ol 0.5-2.5 (3) MG/3ML Inhalation Solution (Duoneb)Indications :COPD, group B, by GOLD 2017 classification ([facility]) Inhale via nebulizer 3 mL every [...] 180 Tablet 3 09/04/2022 4 Active Tiotropium [place] Monohydrate 2.5 MCG/ACT Inhalation Aerosol Solution (Spiriva Respimat)Indication s:COPD, group B, by GOLD 2017 classification ([facility]) INHALE 2 PUFFS BY MOUTH IN THE MORNING 12 g 3 08/07/2022 4 Active Additional Information Patient taking differently:2 Puff Inhalation Daily(AM),Hasn't started it yet, Reported on 08/12/2022 Beclomethasone Diprop HFA 80 MCG/ACT Inhalation Aerosol Breath Activated (Qvar RediHaler)Indicatio ns:COPD, group B, by GOLD 2017 classification ([facility]) INHALE 1 PUFF IN THE MORNING [...] as of this encounter (statuses as of 04/27/2023) Active Problems Problem Noted Date Diagnosed Date [...] as of this encounter (statuses as of 04/27/2023) Resolved Problems Problem Noted Date Diagnosed Date [...] as of this encounter (statuses as of 04/27/2023) Immunizations Name Administration Dates Next Due COVID-19 [...] Pt dropped off disability papwork from the [facility] Please fax when completed [phone] Please call pt when this is done [phone] documented in this encounter Plan of Treatment Upcoming Encounters Date Type Department Care Team (Late st Contact Info) Description 05/24/2023 9:00 AM EST Office Visit Orthopaedics [facility] [address] [place] [address] Javon Bunn, [address] [place] [address] 05/31/2023 11:00 AM EST Office Visit Pharmacy, [facility] [address] [place] [address] Pharmacist1, [facility] 200 [facility] [place] [address] 09/30/2023 10:40 AM EDT Office Visit General Internal Medicine [facility] [address] [facility] [place] [address] Orlin Castro MD [address] [facility] [place] [address] 10/05/2023 3:30 PM EDT Office Visit Dermatology [facility] [place] [address] [facility] [place] [address] Ling Capellan PA-C [facility] [facility] [address] 11/30/2023 9:30 AM EDT Imaging Radiology [address] 132 [place] [address] 02/17/2024 7:50 AM EDT Office Visit Optometry, [place] 16 [place] [address] Ari Staley, [place], 16 [place] [address] 03/27/2024 8:40 AM EDT Office Visit Endocrinology, [place] [address] [place] [address] Nhung Monzon MD [address] [place], [place] [phone] Scheduled Procedures Name Priority Associated Diagnoses Date/Ti me COLONOSCOPY FLEXIBLE PROXIMAL DIAGNOSTIC Recall FAP (familial adenomatous polyposis) ESOPHAGOGASTRODUODENOSCOPY ( EGD), FLEXIBLE, TRANSORAL, DIAGNOSTIC Recall FAP (familial adenomatous polyposis) Health Maintenance Due Date Last Done Comments *COPD SEVERITY VERIFIED BY PFT 08/02/2019 Depression Screening 03/04/2023 03/04/2022 COVID-19 Vaccine ( season) 2023 07/07/2022, 02/15/2021, 01/09/2021, Additional history exists Albumin/Creatinine Ratio 05/14/2023 11/10/2 022, 05/01/2022, 03/06/2022, Additional history exists Diabetic [...] this encounter Medical Devices Implanted Type Area Civil Division Deputy Sheriff Device Identifier Shelf Expiration Date Model / Serial / Lot Stent 10fr 7cm - [id number] Implanted:Qty: 1 on 06/17/2010 at [facility] COOK : RADHA MONTANA 01/15/2013 [id number] / / [id number] Description:pancreas documented as of this encounter Advance [...] the patient have Health Care Power of Court Reporter? No Care Teams Caretaker Relationship Specialty Start Date End Date Orlin Castro MD 200 [place] [address] PCP - General Internal Medicine 04/27/19 documented as of this encounter
--- OUTSIDE RECORDS SUMMARY | 2023-06-17 09:54 | External Medical Summary | Summary of Care ---
Author Name Unknown Organization [facility] Address [address] [place] [address] Phone [phone] Care Team Providers Care Manager Environmental Affairs Name Role Phone Orlin Castro MD Primary Care Provider + Reason for Visit * Reason Onset Date Comments Forms Request 04/19/2023 Encounter Details Date Type Department Care Team (Late st Contact Info) Description 04/19/2023 Telephone General Internal Medicine [facility] 200 [facility] [place] [address] Orlin Castro MD 200 [facility] [place] [address] Forms Request Allergies Active Allergy Reactions Criticality Noted Date Comments Zolpidem Tartrate Psych complications 6 Rosuvastatin 04/05/2020 Elevated lft Hydrochlorothiazide 12/29/2019 brenda Nsaids Other (Please comment) 04/14/2016 Gastric ulcer with anemia documented as of this encounter (statuses as of 05/03/2023) Medications Medication Sig Dispensed Refills Start Date [...] B, by GOLD 2017 classification ([facility]) Inhale via nebulizer . Use as directed. 1 Each 1 12/30/2021 Active Ipratropium-Albuter ol 0.5-2.5 (3) MG/3ML Inhalation Solution (Duoneb)Indications :COPD, group B, by GOLD 2017 classification ([facility]) Inhale via nebulizer 3 mL [...] 180 Tablet 3 09/04/2022 4 Active Tiotropium [place] Monohydrate 2.5 MCG/ACT Inhalation Aerosol Solution (Spiriva Respimat)Indication s:COPD, group B, by GOLD 2017 classification ([facility]) INHALE 2 PUFFS BY MOUTH IN THE MORNING 12 g 3 08/07/2022 4 Active Additional Information Patient taking differently:2 Puff Inhalation Daily(AM),Hasn't started it yet, Reported on 08/12/2022 Beclomethasone Diprop HFA 80 MCG/ACT Inhalation Aerosol Breath Activated (Qvar RediHaler)Indicatio ns:COPD, group B, by GOLD 2017 classification ([facility]) INHALE 1 PUFF IN THE [...] as of this encounter (statuses as of 05/03/2023) Active Problems Problem Noted Date Diagnosed Date [...] as of this encounter (statuses as of 05/03/2023) Resolved Problems Problem Noted Date Diagnosed Date [...] as of this encounter (statuses as of 05/03/2023) Immunizations Name Administration Dates Next Due COVID-19 [...] encounter Miscellaneous Notes * Telephone Encounter - Monae Saucedo LPN - 05/03/2023 10:50 AM EDT Patient is aware and verbalizes understanding. * Telephone Encounter - Ozzy Whitfield CMA - 04/28/2023 3:49 PM EDT Called, left message for patient to return call. Form has been faxed, copy sent to scanning * Telephone Encounter - Sury Butterfield - 04/19/2023 2:43 PM EDT Pt dropped off disability papwork from the state Please fax when completed [phone] Please call pt when this is done [phone] documented in this encounter Plan of Treatment Upcoming Encounters Date Type Department Care Team (Late st Contact Info) Description 05/24/2023 9:00 AM EST Office Visit Orthopaedics [facility] 132 [place] [address] Javon Bunn, [address] [place] [place] [address] 05/31/2023 11:00 AM EST Office Visit Pharmacy, [facility] 200 [facility] [place] [address] Pharmacist1, [facility] 200 [facility] [place] [address] 09/30/2023 10:40 AM EDT Office Visit General Internal Medicine [facility] 200 [facility] [place] [address] Orlin Castro MD 200 [facility] [place] [address] 10/05/2023 3:30 PM EDT Office Visit Dermatology [facility] 200 [facility] [place] [address] Ling Capellan PA-C [address] [place] [address] 11/30/2023 9:30 AM EDT Imaging Radiology [facility] 132 [place] [address] 02/17/2024 7:50 AM EDT Office Visit Optometry, [place] 16 [place] [address] Rancho Chapman Jr., OD 16 [place] [address] 03/27/2024 8:40 AM EDT Office Visit Endocrinology, [place] [address] [facility] [address] [place], [place] [phone] Nhung Monzon MD [address] [place] [address] Scheduled Procedures Name Priority Associated Diagnoses Date/Ti [...] this encounter Medical Devices Implanted Type Area Alternative Energy Technician Device Identifier Shelf Expiration Date Model / Serial / Lot Stent 10fr 7cm - [id number] Implanted:Qty: 1 on 06/17/2010 at OR [facility] COOK : RADHA MONTANA 01/15/2013 [id number] / / [id number] Description:pancreas documented as of this encounter Advance [...] the patient have Health Care Power of Manager Willow? No Care Teams Manager Environmental Affairs Relationship Specialty Start Date End Date Orlin Castro MD 200 [place] [address] PCP - General Internal Medicine 04/27/19 documented as of this encounter
--- OUTSIDE RECORDS SUMMARY | 2023-06-17 09:54 | External Medical Summary ---
Author Name Unknown Address Unknown Organization [facility] [place] [address] Laboratory Report Ordering Provider Test Date Status DO KAYLEENCARLOSMIGUEL 05/05/2023 08:59:51 Final Observation Date Value Abnormality Reference (Units ) Status Albumin 05/05/2023 08:59:51 4.3 3.8-5.0 (g/dL) Final AST (Aspartate aminotransferase) 05/05/2023 08:59:51 41 Above high normal 10-35 (U/L) Final Alk Phos 05/05/2023 08:59:51 283 Above high normal 35-130 (U/L) Final ALT (Alanine aminotransferase) 05/05/2023 08:59:51 80 Above high normal 10-35 (U/L) Final Bilirubin, Total 05/05/2023 08:59:51 0.3 <=1.2 (mg/dL) Final Bilirubin, Direct 05/05/2023 08:59:51 <0.2 0.0-0.3 (mg/dL) Final Protein 05/05/2023 08:59:51 6.8 6.0-8.3 (g/dL) Final Performing Location [facility] [place] [address]
--- OUTSIDE RECORDS SUMMARY | 2023-06-17 09:54 | External Medical Summary | Summary of Care ---
Author Name Unknown Organization [facility] Address [address] [place] [facility] [place] [address] Phone [phone] Care Team Providers Care Four Slide Machine Operator Name Role Phone Orlin Castro MD Primary Care Provider + Reason for Visit * Reason Comments Outpatient Testing Encounter Details Date Type Department Care Team (Late st Contact Info) Description 05/05/2023 9:50 AM EDT Laboratory Laboratory [facility] [address] [place] [address] [facility] Lab Scenery [address] [place] [address] Elevated LFTs; Metabolic acidosis; Diabetes mellitus with [...] B, by GOLD 2017 classification ([facility]) Inhale via nebulizer . Use as directed. 1 Each 1 12/30/2021 Active Ipratropium-Albuter ol 0.5-2.5 (3) MG/3ML Inhalation Solution (Duoneb)Indications :COPD, group B, by GOLD 2017 classification ([facility]) Inhale via nebulizer 3 mL [...] 180 Tablet 3 09/04/2022 4 Active Tiotropium [place] Monohydrate 2.5 MCG/ACT Inhalation Aerosol Solution (Spiriva Respimat)Indication s:COPD, group B, by GOLD 2017 classification ([facility]) INHALE 2 PUFFS BY MOUTH IN THE MORNING 12 g 3 08/07/2022 4 Active Additional Information Patient taking differently:2 Puff Inhalation Daily(AM),Hasn't started it yet, Reported on 08/12/2022 Beclomethasone Diprop HFA 80 MCG/ACT Inhalation Aerosol Breath Activated (Qvar RediHaler)Indicatio ns:COPD, group B, by GOLD 2017 classification ([facility]) INHALE 1 PUFF IN THE [...] 05/24/2023 9:00 AM EST Office Visit Orthopaedics [facility] [address] [place] [address] Javon Bunn, [address] [place] [address] 05/31/2023 11:00 AM EST Office Visit Pharmacy, [facility] [place] [address] [place] [address] Pharmacist1, [facility] [address] [place] [address] 09/30/2023 10:40 AM EDT Office Visit [facility] [place] [address] [place] [address] Orlin Castro MD [address] [place] [address] 10/05/2023 3:30 PM EDT Office Visit Dermatology [facility] [place] [address] [place] [address] Ling Capellan PA-C [address] [facility] [place] [address] 11/30/2023 9:30 AM EDT Imaging Radiology [facility] [address] [place] [address] 02/17/2024 7:50 AM EDT Office Visit Optometry, [place] [address] [place] [address] Ari Staley, [place], [address] [place] [address] 03/27/2024 8:40 AM EDT Office Visit Endocrinology, [place] [address] [place] [address] Nhung Monzon MD [address] [place], [place] [id number] Pending Results Name Type Priority Associated Diagnoses [...] this encounter Medical Devices Implanted Type Area Jinriksha Driver Device Identifier Shelf Expiration Date Model / Serial / Lot Stent 10fr 7cm - [id number] Implanted:Qty: 1 on 06/17/2010 at [facility] COOK : RADHA MON[place] 01/15/2013 [id number] / / [id number] Description:pancreas documented as of this encounter Visit [...] the patient have Health Care Power of Portable Canteen Operator? No Care Teams Four Slide Machine Operator Relationship Specialty Start Date End Date Orlin Castro MD [address] [facility] [place] [place] [address] PCP - General Internal Medicine 04/27/19 documented as of this encounter
--- OUTSIDE RECORDS SUMMARY | 2023-06-17 09:54 | External Medical Summary ---
Author Name Unknown Address Unknown Organization K01:LABORATORY [facility] - [facility] [address] [place] [address] Laboratory Report Ordering Provider Test Date Status RICHARD BEYER 05/05/2023 09:02:25 Final Normal: <30 mg/g creatinine< br/>High: 30-300 mg/g creatinine
Very High: >300 mg/g creatinine
Nephrotic: >2200 mg/g creatinine Observation Date Value Abnormality Reference (Units ) Status Albumin, Urine 05/05/2023 09:02:25 46.53 (mg/dL) Final Creatinine, Urine 05/05/2023 09:02:25 140 (mg/dL) Final Albumin/Creatinine [Mass Ratio] in Urine 05/05/2023 09:02:25 332 Above high normal <30 (mg/g Creat) Final Performing Location LABORATORY [facility] - [address] [place] [address]
--- OUTSIDE RECORDS SUMMARY | 2023-06-17 09:55 | External Medical Summary | Summary of Care ---
Author Name Unknown Organization [facility] Address [address] [facility] [address] Phone [phone] Care Team Providers Care Giant Tire Repairer Name Role Phone Orlin Castro MD Primary Care Provider + Reason for Visit * Reason Comments Psoriasis 6 month follow up on psoriasis. Reports skin is controlled and doing well. Using triamcinolone as needed. Encounter Details Date Type Department Care Team Description 03/16/2023 Office Visit Dermatology [facility] [place] [address] [place] [address] Ling Capellan PA-C [address] [place] [address] Psoriasiform dermatitis* Allergies Active Allergy Reactions Severity Noted Date Comments Zolpidem Tartrate Psych complications 6 Rosuvastatin 04/05/2020 Elevated lft Hydrochlorothiazide 12/29/2019 brenda Nsaids Other (Please comment) 04/14/2016 Gastric ulcer with anemia documented as of this encounter (statuses as of 03/23/2023) Medications Medication Sig Dispensed Refills Start Date [...] mouth daily. 90 Tab 3 1 Active OneTouch Verio Flex System w/Device Kit [...] s:COPD, group B, by GOLD 2017 classification ([facility]) Inhale via nebulizer . Use as directed. 1 Each 1 2 Active Ipratropium-Albuter ol 0.5-2.5 (3) MG/3ML Inhalation Solution (Duoneb)Indications :COPD, group B, by GOLD 2017 classification ([facility]) Inhale via nebulizer 3 mL [...] MOUTH EVERY DAY 90 Tablet 3 3 09/05/19 24 Active Carvedilol 25 MG Oral Tablet (Coreg)Indications: HTN, goal below 140/90 TAKE ONE TABLET BY MOUTH 2 TIMES A DAY WITH MORNING AND EVENING MEALS 180 Tablet 3 3 09/04/19 24 Active Tiotropium [place] Monohydrate 2.5 MCG/ACT Inhalation Aerosol Solution (Spiriva Respimat)Indication s:COPD, group B, by GOLD 2017 classification ([facility]) INHALE 2 PUFFS BY MOUTH IN THE MORNING 12 g 3 3 08/07/19 24 Active Additional Information Patient taking differently:2 Puff Inhalation Daily(AM),Hasn't started it yet, Reported on 08/12/2022 Beclomethasone Diprop HFA 80 MCG/ACT Inhalation Aerosol Breath Activated (Qvar RediHaler)Indicatio ns:COPD, group B, by GOLD 2017 classification ([facility]) INHALE 1 PUFF IN THE [...] MOUTH EVERY DAY 180 Tablet 3 2 06/17/20 23 Active metFORMIN HCl 1000 MG Oral Tablet (Glucophage) TAKE ONE TABLET BY MOUTH TWICE A DAY WITH MORNING AND EVENING MEALS 180 Tablet 3 2 05/06/20 23 Active OneTouch Verio In Vitro Strip (Glucose Blood)Indications:T ype 2 diabetes mellitus with hemoglobin A1c goal of less than 7.0% ([facility]) Use to test blood glucose 4 times daily. DX: E11.9 400 Strip 3 3 Active Levothyroxine Sodium 200 MCG Oral Tablet (Levoxyl)Indication s:Postsurgical hypothyroidism TAKE 1 TABLET BY MOUTH DAILY AT LEAST 30 MINUTES PRIOR TO FIRST MEAL OF THE DAY OR OTHER MEDICATIONS 90 Tablet 3 3 Active Misc. Devices Electrolarynx Medically necessary 1 Each 0 3 Active Vancomycin HCl 125 MG Oral Capsule (Vancocin)Indicatio ns:C. difficile colitis Take 1 Capsule by mouth every 6 hours. 40 Capsule 0 3 03/18/20 23 Discontinu ed(Patient preference /discontin uation) documented as of this encounter (statuses as of 03/23/2023) Active Problems Problem Noted Date Primary aldosteronism [...] as of this encounter (statuses as of 03/23/2023) Resolved Problems Problem Noted Date Resolved Date Type 2 diabetes mellitus wit h stage 3a chronic kidney disease, without long-term current use of insulin 08/21/2021/12/2021 Chronic obstructive pulmonary disease 07/31/2019 2019 Overview: [...] as of this encounter (statuses as of 03/23/2023) Immunizations Name Administration Dates Next Due COVID-19 mRNA, LNP-s, No Pre serve, 2-Dose Series (Moderna) 02/15/2021,01/09/2021,12/12/2020 Covid-19, Mrna, Lnp-s, Pf, B ivalent, 50 Mcg, IM, 12 yrs and above (Moderna) 07/07/2022 Hepatitis B, 20+ yrs 12/20/2014,07/27/2014,06/22 Pneumococcal Conjugate Vacc, 13 Valent (Prevnar) 04/26/2015,04/04/2015 Pneumococcal Polysaccharide PPV23 (Pneumovax) 03/04/2022,12/03/2013 Seasonal Influenza Virus Vac cine, Unspecified Formulation 03/10/2019,04/21/2018,04/14/2017,03/18,06/05/2010 Seasonal Influenza, PF, 6 mo ns & Above, IM , (Flulaval) 03/21/2021,04/22/2020,03/10/2019,04/21,04/14/2017 Seasonal Influenza, Quadriva lent Hd (Fluzone Hd) 03/04/2022 Seasonal Influenza, Quadriva lent, No Preserve, IM [...] as of this encounter Progress Notes * Ling Capellan PA-C - 03/16/2023 3:27 PM EDT Nursing Notes: Connie Singer LPN 03/16/23 1522 Signed Patient identified by name and date.. Chief Complaint Patient presents with Psoriasis 6 month follow up on psoriasis. Reports skin is controlled and doing well. Using triamcinolone as needed. SUBJECTIVE: HPI: Mallory Soto is a 67 year old female who is an established patient seen for follow-up psoriasis. Patient last visit on 07/21/22. Last attempted tx includes triamcinolone cream with good improvement. Tolerating tx well. No recent flares and no c/o arthritic symptoms. REVIEW OF SYSTEMS: See HPI- all other findings negative Constitutional: (-) fever, chills, sweats, weight loss Cardiovascular: (-) lower extremity edema Skin: (-) no rash or new or changing moles or skin lesions MEDICA TIONS: Current Outpatient Medications Medication Sig Dispense Refill ferrous sulfate (FEOSOL) 325 (65 FE) MG Tablet TAKE ONE TABLET THREE TIMES DAILY 270 Tab 3 ONETOUCH DELICA LANCETS FINE MISC Use to test blood sugar 4 times daily dx e11.9 400 Each 3 Misc. Devices [facility] Trache[facility] Care Kit #4601 1 Each 0 Vitamin B-12 1000 MCG Oral Tablet Take 1 Tab by mouth daily. 90 Tab 3 OneTouch Verio Flex System w/Device Kit Use as directed. To test blood sugars up to 4 times a day Dx E11.22 1 Kit 0 Misc. Devices Laryngectomy tube, size 10LGT 3 Each 0 Misc. Devices Velcro Trach Ties for Laryngectomy Tube 15 Each 11 Sucralfate 1 GM Oral Tablet (Carafate) Take by mouth 1 Tablet in the morning AND 1 Tablet at noon AND 1 Tablet in the evening AND 1 Tablet before bedtime. 360 Tablet 3 Compressor Nebulizer Inhale via nebulizer . Use as directed. 1 Each 1 Ipratropium-Albuterol 0.5-2.5 (3) MG/3ML Inhalation Solution (Duoneb) Inhale via nebulizer 3 mL every 6 hours as needed for Wheezing. 360 mL 1 Breathe Comfort Humidifier Use as directed. Laryngectomy status. Use for humidification to Trach site 1 Each 2 Vancomycin HCl 125 MG Oral Capsule (Vancocin) Take 1 Capsule by mouth every 6 hours. (Patient not taking: Reported on 01/01/2023) 40 Capsule 0 Sodium Chloride 7 % Inhalation Nebulization Solution (Hyper-Allen) 4 ML VIA NEBULIZER TWICE DAILY FORRESP. FOR 1 WEEK ONLY USE FOR 1 WEEK Formoterol Fumarate 20 MCG/2ML Inhalation Nebulization Solution Budesonide 0.25 MG/2ML Inhalation Suspension (Pulmicort) 0.25 mg. Ezetimibe 10 MG Oral Tablet (Zetia) TAKE ONE TABLET BY MOUTH EVERY DAY IN THE MORNING 90 Tablet 3 amLODIPine Besylate 10 MG Oral Tablet (Norvasc) TAKE ONE TABLET BY MOUTH EVERY DAY. 90 Tablet 3 Cyclobenzaprine HCl 10 MG Oral Tablet (Flexeril) TAKE ONE TABLET BY MOUTH AT BEDTIME NEEDED FOR MUSCLE SPASMS. 90 Tablet 3 Pantoprazole Sodium 40 MG Oral Tablet Delayed Release (Protonix) TAKE ONE TABLET BY MOUTH EVERY DAY90 Tablet 3 Carvedilol 25 MG Oral Tablet (Coreg) TAKE ONE TABLET BY MOUTH 2 TIMES A DAY WITH MORNING AND EVENING MEALS 180 Tablet 3 Tiotropium [place] Monohydrate 2.5 MCG/ACT Inhalation Aerosol Solution (Spiriva Respimat) INHALE 2 PUFFS BY MOUTH IN THE MORNING (Patient taking differently: Inhale 2 Puffs by mouth in the morning. Hasn't started it yet.) 12 g 3 Beclomethasone Diprop HFA 80 MCG/ACT Inhalation Aerosol Breath Activated (Qvar RediHaler) INHALE 1 PUFF IN THE MORNING AND 1 PUFF BEFORE BEDTIME (Patient taking differently: Inhale 1 Puff by mouth inthe morning and 1 Puff before bedtime. Hasn't started it yet.) 31.8 g 3 Clobetasol Propionate 0.05 % External Ointment (Temovate) APPLY TO AFFECTED AREAS ON ARMS AND FEET TWO TIMES A DAY NEEDED FOR FLARES (Patient not taking: Reported on 01/12/2023) 60 g 5 Triamcinolone Acetonide 0.1 % External Cream (Aristocort) APPLY TO AFFECTED AREA TWICE DAILY 120 g 3 Losartan Potassium 100 MG Oral Tablet (Cozaar) TAKE ONE TABLET BY MOUTH EVERY DAY 180 Tablet 3 metFORMIN HCl 1000 MG Oral Tablet (Glucophage) TAKE ONE TABLET BY MOUTH TWICE A DAY WITH MORNING AND EVENING MEALS 180 Tablet 3 Exosite Verio In Vitro Strip (Glucose Blood) Use to test blood glucose 4 times daily. DX: E11.9 400 Strip 3 Levothyroxine Sodium 200 MCG Oral Tablet (Levoxyl) TAKE 1 TABLET BY MOUTH DAILY AT LEAST 30 MINUTESPRIOR TO FIRST MEAL OF THE DAY OR OTHER MEDICATIONS 90 Tablet 3 Misc. Devices Electrolarynx Medically necessary 1 Each 0 Repaglinide 1 MG Oral Tablet (Prandin) Take by mouth 1 1/2 tablets at breakfast, 1 tablet with supper, 1/2 tablet with evening snack 270 Tablet 3 No current facility-administered medications for this visit. ALLERG Y: Ambien [zolpidem tartrate], Crestor [rosuvastatin], Hctz [hydrochlorothiazide], and Nsaids OBJECTIVE: GEN: Healthy, alert, no distress, appears oriented, pleasant, and cooperative. PSYCH: Appropriate mood and affect, alert SKIN: Detailed exam of upper and lower ext was completed and are within normal limits with the following exceptions: 1. Upper ext clear of psoriasiform lesions ASSESSMENT/PLAN: 1. Psoriasiform dermatitis - continue gentle skin care, good moisturizing habits - continue triamcinolone cream BID to elbows and lower legs PRN for flares Patient alone today. Follow-up: 1 year Photos taken, patient consented to photos taken. Applicable photos (if any) and chart reviewed by Dr. Tony Lowe The patient was encouraged to contact me with any further questions or concerns. Ling Capellan PA-C 03/16/2023 3:27 PM documented in this encounter Nursing Notes * Connie Singer LPN - 03/16/2023 3:22 PM EDT Patient identified by name and date.. Chief Complaint Patient presents with Psoriasis 6 month follow up on psoriasis. Reports skin is controlled and doing well. Using triamcinolone as needed. documented in this encounter Plan of Treatment Upcoming Encounters Date Type Specialty Care Team Description 05/24/2023 Office Visit Orthopedics Javon Bunn, DO [address] [facility] [place] [address] 05/31/2023 Office Visit Pharmacy Pharmacist1, [facility] [address] [place] [address] 09/30/2023 Office Visit Internal Medicine Orlin Castro MD [address] [place] [address] 10/05/2023 Office Visit Dermatology Ling Capellan PA-C [address] [place] [address] 11/30/2023 Imaging Radiology 02/17/2024 Office Visit Optometry Ari Staley, [place], OD [address] [place] [address] 03/27/2024 Office Visit Endocrinology Nhung Monzon MD [address] [place] [address] Scheduled Procedures Name Priority Associated Diagnoses Date/Ti me COLONOSCOPY FLEXIBLE PROXIMAL DIAGNOSTIC Recall FAP (familial adenomatous polyposis) ESOPHAGOGASTRODUODENOSCOPY ( EGD), FLEXIBLE, TRANSORAL, DIAGNOSTIC Recall FAP (familial adenomatous polyposis) Health Maintenance Due Date Last Done Comments *COPD SEVERITY VERIFIED BY PFT 08/02/2019 Depression Screening 03/04/2023 03/04/2022 Albumin/Creatinine Ratio 05/14/2023 022, 05/01/2022, 03/06/2022, Additional [...] Completed 03/04/2022, 04/26/2015, 04/04/2015, Additional history exists COVID-19 Vaccine Completed 07/07/2022, , 01/09/2021, Additional history exists Colonoscopy Discontinued 12/17/2022, 08/06, [...] this encounter Medical Devices Implanted Type Area Trolley Car Overhauler Device Identifier Shelf Expiration Date Model / Serial / Lot Stent 10fr 7cm - [id number] Implanted:Qty: 1 on 06/17/2010 at [facility] COOK : RADHA [place] 01/15/2013 [id number] / / [id number] Description:pancreas documented as of this encounter Procedures Procedure Name Priority Date/Time Associated Diagnosis Comments DERM IMAGE (SITE) Routine 03/16/2023 Psoriasiform dermatitis documented in this encounter Results * DERM IMAGE (SITE) (03/16/2023) 03/16/2023 Ling Capellan PA-C DIGITAL VENECIA TOGRAPHY documented in this encounter Visit Diagnoses Diagnosis Psoriasiform dermatitis- Primary Other psoriasis and similar disorders documented in this encounter Advance Directives Latest [...] the patient have Health Care Power of Stitch Wheeler? No Care Teams Giant Tire Repairer Relationship Specialty Start Date End Date Orlin Castro MD [address] [place] [id number] PCP - General Internal Medicine 04/27/19 documented as of this encounter
--- OUTSIDE RECORDS SUMMARY | 2023-06-17 09:55 | External Medical Summary ---
Author Name Unknown Address Unknown Organization K01:LABORATORY [facility] - [address] [facility] [place]. [facility] [address] Laboratory Report Ordering Provider Test Date Status MARY MCDANIEL 03/31/2023 12:59:00 Final Dried Blood Spot specimens h ave been validated for general health screening purposes only. This test should not be used for diagnosis or medical treatment without confirmation by other medically established means. The use of HbA1c to monitor glycemic status is based on normal hemoglobin and HbA composition, and should not be used in patients with abnormal hemoglobin that affects the half life of the red blood cell or the in vivo glycation rates.

This test was developed and its performance characteristics determined by [facility]. It has not been cleared or approved by the [place] Food and Drug Administration.

This test was performed as part of a [facility] Care-Gap fulfillment initiative.
null Observation Date Value Abnormality Reference (Units ) Status Hemoglobin A1c/Hemoglobin.total in DBS 03/31/2023 12:59:00 7.7 Above high normal 4.0-5.6 (%) Final Glucose, estimated average 03/31/2023 12:59:00 174 Above high normal <126 (mg/dL) Final Performing Location LABORATORY [facility] - [address] [place] [facility] [address]
--- OUTSIDE RECORDS SUMMARY | 2023-06-17 09:55 | External Medical Summary | Summary of Care ---
Author Name Unknown Organization [facility] Address [address] [facility] [place] [address] Phone [phone] Care Team Providers Care Therapeutic Program Worker Name Role Phone Orlin Castro MD Primary Care Provider + Reason for Visit * Reason Comments Psoriasis 6 month follow up on psoriasis. Reports skin is controlled and doing well. Using triamcinolone as needed. Encounter Details Date Type Department Care Team Description 03/16/2023 Office Visit Dermatology Avni Singh [place] [address] [place] [address] Ling Capellan PA-C [address] [place] [address] Psoriasiform dermatitis* Allergies Active Allergy Reactions Severity [...] s:COPD, group B, by GOLD 2017 classification ([facility]) Inhale via nebulizer . Use as directed. 1 Each 1 2 Active Ipratropium-Albuter ol 0.5-2.5 (3) MG/3ML Inhalation Solution (Duoneb)Indications :COPD, group B, by GOLD 2017 classification ([facility]) Inhale via nebulizer 3 mL [...] Tablet 3 3 09/04/19 24 Active Tiotropium [place] Monohydrate 2.5 MCG/ACT Inhalation Aerosol Solution (Spiriva Respimat)Indication s:COPD, group B, by GOLD 2017 classification ([facility]) INHALE 2 PUFFS BY MOUTH IN THE MORNING 12 g 3 3 08/07/19 24 Active Additional Information Patient taking differently:2 Puff Inhalation Daily(AM),Hasn't started it yet, Reported on 08/12/2022 Beclomethasone Diprop HFA 80 MCG/ACT Inhalation Aerosol Breath Activated (Qvar RediHaler)Indicatio ns:COPD, group B, by GOLD 2017 classification ([facility]) INHALE 1 PUFF IN THE [...] hemoglobin A1c goal of less than 7.0% ([facility]) Use to test blood glucose [...] as of this encounter Progress Notes * Tony Lowe MD - 03/23/2023 10:34 AM EDT I have reviewed the charting notes and orders and associated images and agree with the assessment and plan of Ling Sheppard PA-C . Tony Lowe MD., Dermatology [facility] [address] [place] [address] * Ling Capellan PA-C - 03/16/2023 3:27 [...] dx e11.9 400 Each 3 Misc. Devices [facility] Tracheostomy Care Kit #4601 1 Each 0 [...] AND EVENING MEALS 180 Tablet 3 Tiotropium [place] Monohydrate 2.5 MCG/ACT Inhalation Aerosol Solution (Spiriva [...] MORNING AND EVENING MEALS 180 Tablet 3 Ku In Vitro Strip (Glucose Blood) Use to [...] Visit Orthopedics Javon Bunn, DO [address] [facility] [place] [address] 05/31/2023 Office Visit Pharmacy Pharmacist1, [facility] [address] [place] [address] 09/30/2023 Office Visit Internal Medicine Orlin Castro MD [address] [place] [address] 10/05/2023 Office Visit Dermatology Ling Capellan PA-C [address] [place] [address] 11/30/2023 Imaging Radiology 02/17/2024 Office Visit Optometry Ari Staley, [place], [place] [address] [place] [address] 03/27/2024 Office Visit Endocrinology Nuhng Monzon MD [address] [place] [address] Scheduled Procedures Name Priority Associated [...] this encounter Medical Devices Implanted Type Area Silk Spotter Device Identifier Shelf Expiration Date Model / Serial / Lot Stent 10fr 7cm - [id number] Implanted:Qty: 1 on 06/17/2010 at [facility] COOK : RADHA NAN 01/15/2013 [id number] / / [id number] Description:pancreas documented as of this encounter Procedures [...] the patient have Health Care Power of Pot Reliner? No Care Teams Therapeutic Program Worker Relationship Specialty Start Date End Date Orlin Castro MD [address] [place] [id number] PCP - General Internal Medicine 04/27/19 documented as of this encounter
--- OUTSIDE RECORDS SUMMARY | 2023-06-17 09:55 | External Medical Summary | Summary of Care ---
Author Name Unknown Organization [facility] Address [address] [facility] [address] Phone [phone] Care Team Providers Care Staple Side Laster Name Role Phone Orlin Castro MD Primary Care Provider + Reason for Visit * Reason Onset Date Comments Appointment 04/16/2023 Encounter Details Date Type Department Care Team Description 04/16/2023 Telephone NephrologyAvni [address] [place] [address] Galindo Jean MD [address] [facility] [place] [address] Appointment Allergies Active Allergy Reactions Severity Noted Date Comments Zolpidem Tartrate Psych complications 6 Rosuvastatin 04/05/2020 Elevated lft Hydrochlorothiazide 12/29/2019 brenda Nsaids Other (Please comment) 04/14/2016 Gastric ulcer with anemia documented as of this encounter (statuses as of 04/16/2023) Medications Medication Sig Dispensed Refills Start Date [...] group B, by GOLD 2017 classification ([facility]) Inhale via nebulizer . Use as directed. 1 Each 1 12/30/2021 Active Ipratropium-Albuter ol 0.5-2.5 (3) MG/3ML Inhalation Solution (Duoneb)Indications :COPD, group B, by GOLD 2017 classification ([facility]) Inhale via nebulizer 3 mL every 6 [...] 180 Tablet 3 09/04/2022 4 Active Tiotropium [place] Monohydrate 2.5 MCG/ACT Inhalation Aerosol Solution (Spiriva Respimat)Indication s:COPD, group B, by GOLD 2017 classification ([facility]) INHALE 2 PUFFS BY MOUTH IN THE MORNING 12 g 3 08/07/2022 4 Active Additional Information Patient taking differently:2 Puff Inhalation Daily(AM),Hasn't started it yet, Reported on 08/12/2022 Beclomethasone Diprop HFA 80 MCG/ACT Inhalation Aerosol Breath Activated (Qvar RediHaler)Indicatio ns:COPD, group B, by GOLD 2017 classification ([facility]) INHALE 1 PUFF IN THE MORNING AND [...] A1c goal of less than 7.0% ([facility]) Use to test blood glucose 4 times [...] A1c goal of less than 7.0% ([facility]),Diabetes mellitus with proteinuria Take by mouth 1 1/2 tablets at breakfast, 1 tablet with supper, 1/2 tablet with evening snack 270 Tablet 3 03/16/2023 Active documented as of this encounter (statuses as of 04/16/2023) Active Problems Problem Noted Date Primary aldosteronism [...] as of this encounter (statuses as of 04/16/2023) Resolved Problems Problem Noted Date Resolved Date [...] as of this encounter (statuses as of 04/16/2023) Immunizations Name Administration Dates Next Due COVID-19 [...] encounter Miscellaneous Notes * Telephone Encounter - KEVIN Bhatia - 04/16/2023 8:57 AM EDT 04/16 called patient, left message. Trying to get patient scheduled for a follow-up with Dr. Jean in June 2023. There are openings In July 2023. Patient is on the lost to care report. documented in this encounter Plan of Treatment Upcoming Encounters Date Type Specialty Care Team Description 05/24/2023 Office Visit Orthopedics Javon Bunn, [address] [place] [address] 05/31/2023 Office Visit Pharmacy Pharmacist1, [facility] [address] [place] [address] 09/30/2023 Office Visit Internal Medicine Orlin Castro MD [address] [facility] [place] [address] 10/05/2023 Office Visit Dermatology Ling Capellan PA-C [address] [place] [address] 11/30/2023 Imaging Radiology 02/17/2024 Office Visit Optometry Ari Staley, [place], OD [address] [place] [address] 03/27/2024 Office Visit Endocrinology Nhung Monzon MD [address], [place] [id number] Scheduled Procedures Name Priority Associated Diagnoses Date/Ti [...] this encounter Medical Devices Implanted Type Area Blueprinting Machine Operator Device Identifier Shelf Expiration Date Model / Serial / Lot Stent 10fr 7cm - [id number] Implanted:Qty: 1 on 06/17/2010 at [place] [facility] NAN : RADHA MON[place]NA 01/15/2013 [id number] / / [id number] Description:pancreas documented as of this encounter Advance [...] the patient have Health Care Power of Civil Engineering Assistant? No Care Teams Staple Side Laster Relationship Specialty Start Date End Date Orlin Castro MD [address] [place] [address] PCP - General Internal Medicine 04/27/19 documented as of this encounter
--- OUTSIDE RECORDS SUMMARY | 2023-06-17 09:56 | External Medical Summary | Summary of Care ---
Author Name Unknown Organization [facility] Address [address] [place] [address] Phone [phone] Care Team Providers Care Gambling Monitor Name Role Phone Orlin Castro MD Primary Care Provider + Reason for Visit * Reason Comments Voice Change Encounter Details Date Type Department Care Team Description 03/15/2023 Re[facility] Services [facility], [place] [address] [place] [address] Hilaria Morrell, [facility] [address] [place] [address] Voice impairment*; S/P laryngectomy Allergies Active Allergy Reactions Severity Noted Date Comments Zolpidem Tartrate Psych complications 6 Rosuvastatin 04/05/2020 Elevated lft Hydrochlorothiazide 12/29/2019 brenda Nsaids Other (Please comment) 04/14/2016 Gastric ulcer with anemia documented as of this encounter (statuses as of 03/15/2023) Medications Medication Sig Dispensed Refills Start Date End Date Status ferrous sulfate (FEOSOL) 325 (65 FE) MG Tablet TAKE ONE TABLET THREE TIMES DAILY 270 Tab 3 11/30/2018 Active FeuerlabsTOUCH DELICA LANCETS FINE MISC Use to test blood sugar 4 times daily dx e11.9 400 Each 3 03/09/2019 Active Misc. Devices MISC Tracheostomy Care Kit #4601 1 Each 0 10/02/2019 Active Vitamin B-12 1000 MCG Oral Tablet Take 1 Tab by mouth daily. 90 Tab 3 03/07/2021 Active StayfilmTouch Verio Flex System w/Device Kit Use as [...] B, by GOLD 2017 classification ([facility]) Inhale via nebulizer . Use as directed. 1 Each 1 12/30/2021 Active Ipratropium-Albuter ol 0.5-2.5 (3) MG/3ML Inhalation Solution (Duoneb)Indications :COPD, group B, by GOLD 2017 classification ([facility]) Inhale via nebulizer 3 mL every 6 hours as needed for Wheezing. 360 mL 1 12/30/2021 Active Breathe Comfort Humidifier Use as directed. Laryngectomy status. Use for humidification to Trach site 1 Each 2 08/12/2022 Active Vancomycin HCl 125 MG Oral Capsule (Vancocin)Indicatio ns:C. difficile colitis Take 1 Capsule by mouth every 6 hours. 40 Capsule 0 11/02/2022 Active Additional Information Patient not taking.Reported on 01/01/2023 Sodium Chloride 7 % Inhalation Nebulization Solution [...] 180 Tablet 3 09/04/2022 4 Active Tiotropium [place] Monohydrate 2.5 MCG/ACT Inhalation Aerosol Solution (Spiriva Respimat)Indication s:COPD, group B, by GOLD 2017 classification ([facility]) INHALE 2 PUFFS BY MOUTH IN THE MORNING 12 g 3 08/07/2022 4 Active Additional Information Patient taking differently:2 Puff Inhalation Daily(AM),Hasn't started it yet, Reported on 08/12/2022 Beclomethasone Diprop HFA 80 MCG/ACT Inhalation Aerosol Breath Activated (Qvar RediHaler)Indicatio ns:COPD, group B, by GOLD 2017 classification ([facility]) INHALE 1 PUFF IN THE [...] FLARES 60 g 5 07/21/2022 4 Active Additional Information Patient not taking.Reported on 01/12/2023 Repaglinide 1 MG Oral Tablet (Prandin)Indication s:Type 2 diabetes mellitus with hemoglobin A1c goal of less than 7.0% ([facility]),Diabetes mellitus with proteinuria (HCC) TAKE ONE TABLET BY MOUTH BEFORE BREAKFAST AND BEFORE SUPPER. ALSO TAKE ONE-HALF TABLET WITH NIGHTTIME SNACK. 225 Tablet 3 07/20/2022 4 Active Triamcinolone Acetonide 0.1 % External [...] AND EVENING MEALS 180 Tablet 3 05/06/2022 3 Active OneTouch Verio In Vitro Strip (Glucose Blood)Indications:T ype 2 diabetes mellitus with hemoglobin A1c goal of less than 7.0% ([facility]) Use to test blood glucose 4 times daily. DX: E11.9 400 Strip 3 01/25/2023 Active Levothyroxine Sodium 200 MCG Oral Tablet (Levoxyl)Indication s:Postsurgical hypothyroidism TAKE 1 TABLET BY MOUTH DAILY AT LEAST 30 MINUTES PRIOR TO FIRST MEAL OF THE DAY OR OTHER MEDICATIONS 90 Tablet 3 03/15/2023 Active Misc. Devices Electrolarynx Medically necessary 1 Each 0 03/15/2023 Active documented as of this encounter (statuses as of 03/15/2023) Active Problems Problem Noted Date Primary aldosteronism [...] as of this encounter (statuses as of 03/15/2023) Resolved Problems Problem Noted Date Resolved Date [...] 02/14/2019 History of colon cancer 06/08/2017 02/15/20 19 History of pancreatic cancer 06/08/2017 Kidney disease, [...] of colon cancer 0 02/14/2019 Overview: [place]. FAP---lincoln grewal Dermatitis 07/01/2012 documented as of this encounter (statuses as of 03/15/2023) Immunizations Name Administration Dates Next Due COVID-19 [...] as of this encounter Progress Notes * Hilaria Morrell CCC-[facility] - 03/15/2023 1:17 PM EDT OP SPEECH PATHOLOGY PROGRESS NOTE [facility] Patient: Mallory Soto Date: 03/15/2023 STATUS: Pt seen for follow up regarding electrolarynx (EL). She has been working with [facility] [place] and has a Anatole device. At this time, she does not have a functional, working EL of her own. THERAPY/DISCUSSION: Provided patient with a Provox TruTone electrolarynx. Reviewed settings of modes, pitch, and loudness. Discussed battery charge/life. Pt familiar with neck placement, as she previously had a functioning EL. Questions answered. Pt will follow up with Toño re: further practice and use. RECOMMENDATIONS: Continuous use of EL Follow up with Toño documented in this encounter Plan of Treatment Upcoming Encounters Date Type Specialty Care Team Description 03/16/2023 Office Visit Pharmacy Pharmacist1, [facility] [address] [place] [address] 03/16/2023 Office Visit Dermatology Ling Capellan PA-C [address] [facility] [place] [address] 03/18/2023 Office Visit Internal Medicine Orlin Castro MD [address] [facility] [place] [address] 05/24/2023 Office Visit Orthopedics Javon Bunn, DO [address] [facility] [place] [address] 11/30/2023 Imaging Radiology 02/17/2024 Office Visit Optometry Ari Staley, [place], OD [address] [place] [address] 03/27/2024 Office Visit Endocrinology NicolásNhung MD [address] [place] [address] Scheduled Procedures Name Priority Associated Diagnoses Date/Ti me COLONOSCOPY FLEXIBLE PROXIMAL DIAGNOSTIC Recall FAP (familial adenomatous polyposis) ESOPHAGOGASTRODUODENOSCOPY ( EGD), FLEXIBLE, TRANSORAL, DIAGNOSTIC Recall FAP (familial adenomatous polyposis) Health Maintenance Due Date Last Done Comments *COPD SEVERITY VERIFIED BY PFT 08/02/2019 Depression Screening 03/04/2023 03/04/2022 Influenza Vaccine (FLU shot) (#1) 2023 03/04/2022, 03/21/2021, 04/22/2020, Additional history exists Albumin/Creatinine Ratio 05/14/2023 022, 05/01/2022, 03/06/2022, Additional history exists GFR 05/14/2023 05/14/2022, 08/2021, 10/13/2021, Additional history exists TSH 05/14/2023 03/15/2023, 05/05, 03/06/2022, Additional history exists Diabetic Foot Exam 08/07/2023 08/07/2022, 0 08/21/2021, 10/22/2020, Additional history exists Mammogram 09/12/2023 09/11/2022, 03/0 03/2022, 09/09/2020, Additional history exists HbA1c 09/13/2023 03/15/2023, 06/0 02/2023, 09/07/2022, Additional history exists COLONOSCOPY-ANNUAL AGES 18-100 12/18/2023 12/17/2022, 04/29/2021, 10/15/2020, Additional history exists O2 ASSESSMENT COMPLETED IN PAST YEAR FOR COPD 01/02/2024 01/01/2023 DIABETES-EYE EXAM 01/13/2024 01/12/2023, , 01/12/2023, Additional history exists DXA Scan 05/12/2026 05/12/2022 [...] Additional history exists Colorectal Cancer Screening Discontinued Cologuard Discontinued Fecal Occult Blood Test Discontinued GARDASIL-HPV IMMUNIZATION SERIES Aged Out No longer eligible based on patient's age to complete this topic MENINGOCOCCAL (MENACTRA/MENVEO) Aged Out No longer eligible based on patient's age to complete this topic documented as of this encounter Medical Devices Implanted Type Area Plumbing Warehouse Helper Device Identifier Shelf Expiration Date Model / Serial / Lot Stent 10fr 7cm - [id number] Implanted:Qty: 1 on 06/17/2010 [place] [facility] [place]OOK [place] RADHA [place]NA 01/15/2013 [id number] / / [id number] Description:pancreas documented as of this encounter Visit Diagnoses Diagnosis Voice impairment- Primary Voice and resonance disorder, unspecified S/P laryngectomy Other postprocedural status documented in this encounter Advance Directives Latest [...] the patient have Health Care Power of Client Support Representative? No Care Teams Gambling Monitor Relationship Specialty Start Date End Date Orlin Castro MD [address] [place] [address] PCP - General Internal Medicine 04/27/19 documented as of this encounter
--- OUTSIDE RECORDS SUMMARY | 2023-06-17 09:56 | External Medical Summary ---
Author Name Unknown Address Unknown Organization K01:LABORATORY C - [address] [place] [address] Laboratory Report Ordering Provider Test Date Status IVY DE JESUS 03/15/2023 10:29:13 Final Observation Date Value Abnormality Reference (Units ) Status TSH 03/15/2023 10:29:13 2.04 0.27-4.20 (uIU/mL) Final Performing Location [facility] - [address] [place] [address]
--- OUTSIDE RECORDS SUMMARY | 2023-06-17 09:56 | External Medical Summary ---
Author Name Unknown Address Unknown Organization K01:LABORATORY [facility] - [address] [place] [address] Laboratory Report Ordering Provider Test Date Status RICHARD BEYER 03/15/2023 10:29:13 Final Observation Date Value Abnormality Reference (Units ) Status Albumin 03/15/2023 10:29:13 4.5 3.8-5.0 (g/dL) Final AST (Aspartate aminotransferase) 03/15/2023 10:29:13 19 10-35 (U/L) Final Alk Phos 03/15/2023 10:29:13 145 Above high normal 35-130 (U/L) Final ALT (Alanine aminotransferase) 03/15/2023 10:29:13 45 Above high normal 10-35 (U/L) Final Bilirubin, Total 03/15/2023 10:29:13 0.4 <=1.2 (mg/dL) Final Bilirubin, Direct 03/15/2023 10:29:13 <0.2 0.0-0.3 (mg/dL) Final Protein 03/15/2023 10:29:13 6.6 6.0-8.3 (g/dL) Final Performing Location LABORATORY [facility] - [address] [place] [address]
--- OUTSIDE RECORDS SUMMARY | 2023-06-17 09:56 | External Medical Summary | Summary of Care ---
Author Name Unknown Organization [facility] Address [address] [place] [address] Phone [phone] Care Team Providers Care Data Capture Clerk Name Role Phone Orlin Castro MD Primary Care Provider + Reason for Visit * Reason Comments Outpatient Testing Encounter Details Date Type Department Care Team Description 03/15/2023 Laboratory Outpatient Laboratory, [place] [address] [place] [address] [place], Lab [facility] [address] [place] [address] Type 2 diabetes mellitus with hemoglobin A1c goal of less than 7.0% (HCC); Diabetes mellitus with proteinuria (HCC); Postsurgical hypothyroidism; Thyroid cancer (HCC); Elevated LFTs Allergies Active Allergy Reactions Severity Noted Date [...] 180 Tablet 3 09/04/2022 4 Active Tiotropium [place] Monohydrate 2.5 MCG/ACT Inhalation Aerosol Solution (Spiriva [...] hemoglobin A1c goal of less than 7.0% ([facility]),Diabetes mellitus with proteinuria ([facility]) TAKE ONE TABLET BY MOUTH BEFORE BREAKFAST [...] hemoglobin A1c goal of less than 7.0% ([facility]) Use to test blood glucose 4 times daily. DX: E11.9 400 Strip 3 01/25/2023 Active Levothyroxine Sodium 200 MCG Oral Tablet (Levoxyl)Indication s:Postsurgical hypothyroidism TAKE 1 TABLET BY MOUTH DAILY AT LEAST 30 MINUTES PRIOR TO FIRST MEAL OF THE DAY OR OTHER MEDICATIONS 90 Tablet 3 03/15/2023 Active documented as of this encounter [...] Team Description 03/16/2023 Office Visit Pharmacy Pharmacist1, [facility] [address] [place] [address] 03/16/2023 Office Visit Dermatology Ling Capellan PA-C [address] [facility] [place] [address] 03/18/2023 Office Visit Internal Medicine Orlin Castro MD [address] [place] [address] 05/24/2023 Office Visit Orthopedics Javon Bunn, DO [address] [place] [address] 11/30/2023 Imaging Radiology 02/17/2024 Office Visit Optometry Ari Staley, [place], OD [address] [place] [address] 03/27/2024 Office Visit Endocrinology Nhung Monzon MD [address] [place] [address] Pending Results Name Type Priority Associated Diagnoses Date /Time THYROGLOBULIN AND THYROGLOBULIN ANTIBODY FOR TUMOR MONITORING Lab Routine Thyroid cancer (HCC) 03/15/2023 10:29 AM EDT QN THYROGLOBULIN WITHOUT THYROGLOBULIN ANTIBODY Lab Routine Thyroid cancer (HCC) 03/15/2023 10:29 AM EDT Scheduled Orders Name Type Priority Associated Diagnoses Orde r Schedule THYROGLOBULIN ANTIBODY TUMOR MONITORING Lab Routine Thyroid cancer (HCC) Ordered: 03/15/2023 Scheduled Procedures Name Priority Associated Diagnoses Date/Ti [...] 03/06/2022, Additional history exists GFR 05/14/2023 05/14/2022, 09/0 08/2021, 10/13/2021, Additional history exists TSH 05/14/2023 05/14/2022, 09/0 08/2021, 05/10/2021, Additional history exists HbA1c 06/11/2023 12/10/2022, 03/0 12/2022, 05/14/2022, Additional history exists Diabetic Foot Exam 08/07/2023 08/07/2022, 0 08/21/2021, 10/22/2020, Additional history exists Mammogram 09/12/2023 09/11/2022, 03/0 03/2022, 09/09/2020, Additional history exists COLONOSCOPY-ANNUAL AGES 18-100 12/18/2023 [...] this encounter Medical Devices Implanted Type Area Merchandising Stock Associate Device Identifier Shelf Expiration Date Model / Serial / Lot Stent 10fr 7cm - [id number] Implanted:[place] 1 [place] 06/17/2010 [place] [facility] RADHA [place] 01/15/2013 [id number] / / [id number] Description:pancreas documented as of this encounter Visit Diagnoses Diagnosis Type 2 diabetes mellitus with hemoglobin A1c goal of less than 7.0% (HCC) Diabetes mellitus with proteinuria (HCC) Postsurgical hypothyroidism Thyroid cancer (HCC) Malignant neoplasm of thyroid gland Elevated LFTs Other abnormal blood chemistry documented [...] the patient have Health Care Power of National Coverage Specialist? No Care Teams Data Capture Clerk Relationship Specialty Start Date End Date Orlin Castro MD [address] [place] [address] PCP - General Internal Medicine 04/27/19 documented as of this encounter
--- OUTSIDE RECORDS SUMMARY | 2023-06-17 09:56 | External Medical Summary ---
Author Name Unknown Address Unknown Organization K01:[facility] [address] [facility] [address] [place] [address] Laboratory Report Ordering Provider Test Date Status IVY DE JESUS 03/15/2023 10:29:13 Final Observation Date Value Abnormality Reference (Units ) Status BUN 03/15/2023 10:29:13 14 6-20 (mg/dL) Final Creatinine 03/15/2023 10:29:13 1.1 Above high normal 0.5-1.0 (mg/dL) Final Glomerular filtration rate/1.73 sq M.predicted [Volume Rate/Area] in Serum, Plasma or Blood by Creatinine-based formula (CKD-EPI) 03/15/2023 10:29:13 55 Below low normal >=60 (mL/min) Final eGFR is calculated based on the CKD-EPI 2020 equation SODIUM 03/15/2023 10:29:13 141 135-146 (m mol/L) Final Potassium 03/15/2023 10:29:13 4.4 3.5-5.1 (m mol/L) Final Cl 03/15/2023 10:29:13 102 98-107 (mm ol/L) Final CO2 03/15/2023 10:29:13 16 Below low normal 22- 32 (mmol/L) Final Anion gap 03/15/2023 10:29:13 23 Above high normal 7- 15 (mmol/L) Final Glucose 03/15/2023 10:29:13 133 Above high normal 70 -120 (mg/dL) Final Calcium 03/15/2023 10:29:13 9.5 8.4-10.2 ( mg/dL) Final Performing Location [facility] [place] [address] [place] [address]
--- OUTSIDE RECORDS SUMMARY | 2023-06-17 09:56 | External Medical Summary | Summary of Care ---
Author Name Unknown Organization [facility] Address [address] [place] [address] Phone [phone] Care Team Providers Care Typesetter Perforator Operator Name Role Phone Orlin Castro MD Primary Care Provider + Reason for Visit * Reason Comments Diabetes Follow-Up Dosage Adjustment In Person (Anticoag Cl inic) Encounter Details Date Type Department Care Team Description 03/16/2023 Office Visit Pharmacy, [facility] [address] [facility] [address] Pharmacist1, [facility] [address] [facility] [place] [id number] Type 2 diabetes mellitus with hemoglobin A1c goal of less than 7.0% ([facility])*; Diabetes mellitus with proteinuria ([facility]) Allergies Active Allergy Reactions Severity Noted Date Comments Zolpidem Tartrate Psych complications 6 Rosuvastatin 04/05/2020 Elevated lft Hydrochlorothiazide 12/29/2019 brenda Nsaids Other (Please comment) 04/14/2016 Gastric ulcer with anemia documented as of this encounter (statuses as of 03/16/2023) Medications Medication Sig Dispensed Refills Start Date [...] mouth daily. 90 Tab 3 1 Active Merfacuch Verio Flex System w/Device Kit Use as [...] s:COPD, group B, by GOLD 2017 classification ([facility]) Inhale via nebulizer . Use as directed. 1 Each 1 2 Active Ipratropium-Albuter ol 0.5-2.5 (3) MG/3ML Inhalation Solution (Duoneb)Indications :COPD, group B, by GOLD 2017 classification ([facility]) Inhale via nebulizer 3 mL every 6 hours as needed for Wheezing. 360 mL 1 2 Active Breathe Comfort Humidifier Use as directed. Laryngectomy status. Use for humidification to Trach site 1 Each 2 3 Active Vancomycin HCl 125 MG Oral Capsule (Vancocin)Indicatio ns:C. difficile colitis Take 1 Capsule by mouth every 6 hours. 40 Capsule 0 3 Active Additional Information Patient not taking.Reported on [...] Tablet 3 3 09/04/19 24 Active Tiotropium [place] Monohydrate 2.5 MCG/ACT Inhalation Aerosol Solution (Spiriva Respimat)Indication s:COPD, group B, by GOLD 2017 classification ([facility]) INHALE 2 PUFFS BY MOUTH IN THE MORNING 12 g 3 3 08/07/19 24 Active Additional Information Patient taking differently:2 Puff Inhalation Daily(AM),Hasn't started it yet, Reported on 08/12/2022 Beclomethasone Diprop HFA 80 MCG/ACT Inhalation Aerosol Breath Activated (Qvar RediHaler)Indicatio ns:COPD, group B, by GOLD 2017 classification ([facility]) INHALE 1 PUFF IN THE [...] 60 g 5 3 07/21/19 24 Active Additional Information Patient not taking.Reported on 01/12/2023 Triamcinolone Acetonide 0.1 % External Cream (Aristocort)Indicat [...] Medically necessary 1 Each 0 3 Active Repaglinide 1 MG Oral Tablet (Prandin)Indication s:Type 2 diabetes mellitus with hemoglobin A1c goal of less than 7.0% (HCC),Diabetes mellitus with proteinuria (HCC) Take by mouth 1 1/2 tablets at breakfast, 1 tablet with supper, 1/2 tablet with evening snack 270 Tablet 3 3 Active Repaglinide 1 MG Oral Tablet (Prandin)Indication s:Type 2 diabetes mellitus with hemoglobin A1c goal of less than 7.0% (HCC),Diabetes mellitus with proteinuria (HCC) TAKE ONE TABLET BY MOUTH BEFORE BREAKFAST AND BEFORE SUPPER. ALSO TAKE ONE-HALF TABLET WITH NIGHTTIME SNACK. 225 Tablet 3 3 03/16/20 23 Discontinu ed(Refill) documented as of this encounter (statuses as of 03/16/2023) Active Problems Problem Noted Date Primary aldosteronism [...] as of this encounter (statuses as of 03/16/2023) Resolved Problems Problem Noted Date Resolved Date [...] as of this encounter (statuses as of 03/16/2023) Immunizations Name Administration Dates Next Due COVID-19 [...] as of this encounter Progress Notes * Maximo Burch V, [facility] - 03/16/2023 2:33 PM EDT Medication Therapy Disease Management [facility] - Diabetes Management Progress Note Mallory Soto, identified by name and date of , is a 67 year old female being seen for diabetes management/education. Patient presents for return diabetic visit. DIABETES: Current diabetic medications: Metformin 1000mg - 1 tablet twice daily INCREASE: Prandin 1mg - 1 1/2 tablet before breakfast and 1 tablet with supper plus 1/2 tab with evening snack Medication Injection Site: N/A Lifestyle: Diet: unchanged. She is able to eat better in the summer due to fresh veggies. History of Treatment Barriers: Lifestyle: None Therapy considerations: History of Medullary Thyroid Cancer - GLP-1 contraindicated Medication: Intolerance to Jardiance - frequent urination Glucose Review/SMBG: Readings obtained from patient documented BG logbook Pre am Pre Lunch Pre pm HS 158 124 147 149 139 119 150 139 135 113 137 122 129 122 146 131 146 115 127 138 136 148 118 140 150 144 79 137 149 154 118 133 131 121 118 149 147 106 91 132 167 90 117 129 -Mar 156 198 176 109 134 91 120 136 120 136 127 89 160 151 130 109 147 169 124 118 139 151 140 121 155 176 131 107 130 113 140 151 159 179 136 109 127 139 158 133 Pre am Pre Lunch Pre pm HS Average 144 136 130 128 Hi 167 198 176 151 Lo 120 90 79 89 Range 47 108 97 62 Hypoglycemia: Does your blood sugar go below 70 mg/dL? No, although she had symptoms when BG was 79. Hyperglycemia symptoms present: Gets cold Goal <7 Recent Labs Units 03/15/23 1029 12/10/22 1013 09/07/22 0955 HEMOGLOBIN A1C - [facility] % 6.7* -- -- HEMOGLOBIN A1C POCT - [facility] % -- 7.6* 7.5* Recent Labs Units 05/14/22 1216 03/06/22 0949 10/13/21 0955 ESTIMATED GLOMERULAR FILTRATION RATE - [facility] mL/min 69 58* 63 CREATININE - [facility] mg/dL 0.9 1.1* 1.0 Lab Results Component Value Date/Time CREATININE - [facility] 0.9 05/14/2022 12:16 PM CREATININE - [facility] 1.1 (H) 03/06/2022 09:49 AM CREATININE - [facility] 1.0 10/13/2021 09:55 AM CREATININE - [facility] 1.2 (H) 05/01/2020 10:54 AM CREATININE - [facility] 1.4 (H) 04/22/2020 08:57 AM CREATININE - [facility] 1.2 (H) 03/12/2020 09:52 AM CREATININE, 24-HOUR URINE 1.00 09/26/2021 08:19 AM CREATININE, RANDOM URINE - [facility] 83 05/14/2022 12:16 PM CREATININE, RANDOM URINE - [facility] 39 05/01/2022 09:18 AM CREATININE, RANDOM URINE - [facility] 199 03/06/2022 10:14 AM CREATININE, RANDOM URINE - [facility] 409 10/05/2019 09:51 AM CREATININE, RANDOM URINE - [facility] 32 07/21/2019 01:35 PM CREATININE, RANDOM URINE - [facility] 181 12/29/2018 08:32 AM HYPERTENSION: Patient on ACEi/ARB: yes, Losartan 100mg daily BP Readings from Last 3 Encounters: 03/15/23 167/90 12/11/22 124/64 10/26/22 120/72 Blood pressure at goal: yes HYPERLIPIDEMIA: Patient is taking moderate or high intensity statin: no - stated allergy. Starting Zetia 10mg daily12/10/22 HEALTH MAINTENANCE REVIEW: Health Maintenance Due Topic Date Due *COPD SEVERITY VERIFIED BY PFT Never done Depression Screening 03/04/2023 Influenza Vaccine (FLU shot) (1) 03/05/2023 Albumin/Creatinine Ratio 05/14/2023 ASSESSMENT & PLAN: ICD-10-CM 1. Type 2 diabetes mellitus with hemoglobin A1c goal of less than 7.0% (HCC) E11.9 BG Readings - Blood sugars controlled. A1C 6.7 and at goal! Medications - Reviewed current regimen, patient is adherent to regimen. Diet, Exercise, Lifestyle - No significant lifestyle changes since last visit. Discussed with patient today. She has left TKA on 06/07. Patient is agreeable to SMBG 4 time(s) daily. Patient aware to contact clinic if any hypoglycemia before next visit. MEDICATION CHANGES: no change Diabetic Medications: Metformin 1000mg - 1 tablet twice daily Prandin 1mg - 1 1/2 tablet before breakfast and 1 tablet with supper plus 1/2 tab with evening snack HEALTH MAINTENANCE INTERVENTIONS: Labs: Up to Date Immunizations: needs flu vaccine Foot Exam: Up to Date Eye Exam: Up to Date Annual Wellness Visit: Up to Date FOLLOW UP: Return to clinic in 3 months 05/31/2023 Maximo Burch RPh, [facility] Clinical Pharmacist - [facility] Medication Therapy Management [facility] 03/16/2023, 2:34 PM documented in this encounter Plan of Treatment Upcoming Encounters Date Type Specialty Care Team Description 03/16/2023 Office Visit Dermatology Ling Capellan PA-C [address] [facility] [place] [id number] Nursing Notes: 03/18/2023 Office Visit Internal Medicine Orlin Castro MD [address] [place] [address] 05/24/2023 Office Visit Orthopedics Javon Bunn, [address] [facility] [place] [address] 05/31/2023 Office Visit Pharmacy Pharmacist1, [facility] [address] [facility] [place] [address] 11/30/2023 Imaging Radiology 02/17/2024 Office Visit Optometry Ari Staley, [place], OD [address] [place] [address] 03/27/2024 Office Visit Endocrinology NicolásNhung MD [address] [place] [address] Scheduled Procedures Name Priority Associated [...] 05/14/2023 05/14/2022, 08/2021, 10/13/2021, Additional history exists Diabetic Foot Exam 08/07/2023 [...] 03/15/2024 03/15/2023, 05/05, 03/06/2022, Additional history exists DXA Scan 05/12/2026 05/12/2022 [...] this encounter Medical Devices Implanted Type Area Administrative Secretary Device Identifier Shelf Expiration Date Model / Serial / Lot Stent 10fr 7cm - [id number] Implanted:Q[place]: 1 on 06/17/2010 [place] [facility] [place] 01/[birth year]2013 [id number] / / [id number] Description:pancreas documented as of this encounter Visit Diagnoses Diagnosis Type 2 diabetes mellitus with hemoglobin A1c goal of less than 7.0% (HCC)- Primary Diabetes mellitus with proteinuria (HCC) documented in this encounter Advance Directives Latest [...] the patient have Health Care Power of Darklight Inspector? No Care Teams Typesetter Perforator Operator Relationship Specialty Start Date End Date Orlin Castro MD [address] [place] [address] PCP - General Internal Medicine 04/27/19 documented as of this encounter
--- OUTSIDE RECORDS SUMMARY | 2023-06-17 09:56 | External Medical Summary | Summary of Care ---
Author Name Unknown Organization [facility] Address [address] [place] [address] Phone [phone] Care Team Providers Care Biller Name Role Phone Orlin Castro MD Primary Care Provider + Reason for Visit * Reason Comments Follow Up Encounter Details Date Type Department Care Team Description 03/15/2023 Office Visit Endocrinology, [place] [address] [place] [address] Nhung Monzon MD [address] [place] [address] Postsurgical hypothyroidism*; Thyroid cancer (HCC); Adrenal nodule (HCC); Primary aldosteronism (HCC) Allergies Active Allergy Reactions Severity Noted Date Comments Zolpidem Tartrate Psych complications 6 Rosuvastatin 04/05/2020 Elevated lft Hydrochlorothiazide 12/29/2019 brenda Nsaids Other (Please comment) 04/14/2016 Gastric ulcer with anemia documented as of this encounter (statuses as of 03/18/2023) Medications Medication Sig Dispensed Refills Start Date [...] B, by GOLD 2017 classification ([facility]) Inhale via nebulizer . Use as directed. 1 Each 1 2 Active Ipratropium-Albuter ol 0.5-2.5 (3) MG/3ML Inhalation Solution (Duoneb)Indications :COPD, group B, by GOLD 2017 classification ([facility]) Inhale via nebulizer 3 mL every [...] Tablet 3 3 09/04/19 24 Active Tiotropium [place] Monohydrate 2.5 MCG/ACT Inhalation Aerosol Solution (Spiriva Respimat)Indication s:COPD, group B, by GOLD 2017 classification ([facility]) INHALE 2 PUFFS BY MOUTH IN THE MORNING 12 g 3 3 08/07/19 24 Active Additional Information Patient taking differently:2 Puff Inhalation Daily(AM),Hasn't started it yet, Reported on 08/12/2022 Beclomethasone Diprop HFA 80 MCG/ACT Inhalation Aerosol Breath Activated (Qvar RediHaler)Indicatio ns:COPD, group B, by GOLD 2017 classification ([facility]) INHALE 1 PUFF IN THE MORNING [...] OTHER MEDICATIONS 90 Tablet 3 3 Active Dexamethasone 1 MG Oral Tablet Take 1 Tablet by mouth once for 1 dose. at 11pm the night before blood draw (early next morning). 1 Tablet 0 3 03/18/20 23 Active Repaglinide 1 MG Oral Tablet (Prandin)Indication s:Type 2 diabetes mellitus with hemoglobin A1c goal of less than 7.0% (HCC),Diabetes mellitus with proteinuria (HCC) TAKE ONE TABLET BY MOUTH BEFORE BREAKFAST AND BEFORE SUPPER. ALSO TAKE ONE-HALF TABLET WITH NIGHTTIME SNACK. 225 Tablet 3 3 03/16/20 23 Discontinu ed(Refill) Levothyroxine Sodium 200 MCG Oral Tablet (Levoxyl)Indication s:Postsurgical hypothyroidism TAKE 1 TABLET BY MOUTH DAILY AT LEAST 30 MINUTES PRIOR TO FIRST MEAL OF THE DAY OR OTHER MEDICATIONS 90 Tablet 1 3 03/15/20 23 Discontinu ed(Refill) documented as of this encounter (statuses as of 03/18/2023) Active Problems Problem Noted Date Primary aldosteronism [...] as of this encounter (statuses as of 03/18/2023) Resolved Problems Problem Noted Date Resolved Date [...] as of this encounter (statuses as of 03/18/2023) Immunizations Name Administration Dates Next Due COVID-19 [...] 30 Q uit: 07/05/2006 Smokeless Tobacco: Never Tobacco Cessation:Counseling Given: Not Answered Alcohol Use Standard Drinks/Week Comments No 0 [...] on file documented as of this encounter Last Filed Vital Signs Vital Sign Reading Time Taken Comments Blood Pressure 167/90 03/15/2023 8:05 AM EDT Pulse 69 03/15/2023 8:05 AM EDT Temperature - - Respiratory Rate - - Oxygen Saturation - - Inhaled Oxygen Concentration - - Weight 80.1 kg (176 lb 8 oz) 03/15/2023 8:05 AM EDT Height 162.6 cm (5' 4") 03/15/2023 8:05 AM EDT Body Mass Index 30.3 03/15/2023 8:05 AM EDT documented in this encounter Functional Status Functional Status Response [...] No 11/29/2020 documented as of this encounter Patient Instructions * Patient Instructions* Nhung Monzon MD - 03/15/2023 9:16 AM EDT I will talk to Dr Cifuentes about adrenal nodules Please monitor blood pressure at home and let me know if running frequently >130/90. Labs today for thyroid. After today's labs, I will order overnight cortisol test: OVERNIGHT DEXAMETHASONE SUPPRESSION TEST INSTRUCTIONS I will send a prescription to your pharmacy for dexamethasone 1mg tablet To perform the test, take 1mg of dexamethasone at 11pm and go to the lab the next morning at 8am tohave labs drawn for cortisol and dexamethasone levels. I ordered the labs. You can go to any [facility] lab to have them drawn at 8am. If you recently have been taking any steroids (pills, inhalers, injections, topical medications, orother), please let me know. You will need to avoid steroids for a period of time prior to test completion. documented in this encounter Progress Notes * Nhung Monzon MD - 03/15/2023 8:40 AM EDT Images from the original note were not included. CC Follow up History: 1. Recurrent PTC - S/p surgery and BRAND - S/p total laryngectomy 2 post surgical hypothyroidism. 3. Multiple cancer history - Familial adenomatous polyposis, Gross's Syndrome, colon cancer s/p surgery in 1986. 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 Almaraz (phone # [phone]) with tracheostomy and vocal cord permanent dysfunction. No I131/Chemo/ Rad. April of 2007 and on 06/08/2007 she had total laryngectomy due to PTC. The pathology was significant for 3.2 cm PTC with negative surgical margines. The cricoid cartilage was involved. Pt developed post operative complication (fistula) that healed well. In 2008 she moved to [place] from [place] because of the job US done 2009 and FNA in 05/2010 B/L LN - Benign cytology 2010 Thyrogen stimulated WBS: negative. Tg 0.5 Since then Tg has been undetectable to low level detectable and neck us no clear sign cancer but some nonspecific LAD 4. B/L adrenal nodules-> 03/25 and 11/23 MRI abdomen. PCP performed work up. Brinda/renin ratio high. Has hx HTN on 3 meds. No hypokalemia. UFC and 1mg ODST normal. 24h urine mets normal. HPI Last Office/Telemedicine Visit: 03/13/2022 (in office), 12/04/2019 (telemedicine) Talking with Spontly. Taking LT4 200mcg daily. Takes properly with good adherence No sx suggestive thyroid CA recurrence Diabetes managed by PCP, doing ok In terms of adrenal nodules, Brinda/renin ratio high. Has hx HTN on 3 meds. Did not take BP meds today. Unclear control.. No hypokalemia. Previsit labs incomplete MEDS Current Outpatient Medications (Thyroid Agents) Medication Sig Dispense Refill Levothyroxine Sodium 200 MCG Oral Tablet (Levoxyl) TAKE 1 TABLET BY MOUTH DAILY AT LEAST 30 MINUTESPRIOR TO FIRST MEAL OF THE DAY OR OTHER MEDICATIONS 90 Tablet 1 Current Outpatient Medications (Other) Medication Sig Dispense Refill OneTouch Verio In Vitro Strip (Glucose Blood) Use to test blood glucose 4 times daily. DX: E11.9 400 Strip 3 Clobetasol Propionate 0.05 % External Ointment (Temovate) APPLY TO AFFECTED AREAS ON ARMS AND FEET TWO TIMES A DAY NEEDED FOR FLARES (Patient not taking: Reported on 01/12/2023) 60 g 5 Ezetimibe 10 MG Oral Tablet (Zetia) TAKE ONE TABLET BY MOUTH EVERY DAY IN THE MORNING 90 Tablet 3 Budesonide 0.25 MG/2ML Inhalation Suspension (Pulmicort) 0.25 mg. Formoterol Fumarate 20 MCG/2ML Inhalation Nebulization Solution Sodium Chloride 7 % Inhalation Nebulization Solution (Hyper-Allen) 4 ML VIA NEBULIZER TWICE DAILY FORRESP. FOR 1 WEEK ONLY USE FOR 1 WEEK Vancomycin HCl 125 MG Oral Capsule (Vancocin) Take 1 Capsule by mouth every 6 hours. (Patient not taking: Reported on 01/01/2023) 40 Capsule 0 amLODIPine Besylate 10 MG Oral Tablet (Norvasc) [...] MORNING AND EVENING MEALS 180 Tablet 3 Breathe Comfort Humidifier Use as directed. Laryngectomy status. Use for humidification to Trach site 1 Each 2 Beclomethasone Diprop HFA 80 MCG/ACT Inhalation Aerosol Breath Activated (Qvar RediHaler) INHALE 1 PUFF IN THE MORNING AND 1 PUFF BEFORE BEDTIME (Patient taking differently: Inhale 1 Puff by mouth inthe morning and 1 Puff before bedtime. Hasn't started it yet.) 31.8 g 3 Tiotropium [place] Monohydrate 2.5 MCG/ACT Inhalation Aerosol Solution (Spiriva Respimat) INHALE 2 PUFFS BY MOUTH IN THE MORNING (Patient taking differently: Inhale 2 Puffs by mouth in the morning. Hasn't started it yet.) 12 g 3 Repaglinide 1 MG Oral Tablet (Prandin) TAKE ONE TABLET BY MOUTH BEFORE BREAKFAST AND BEFORE SUPPER.ALSO TAKE ONE-HALF TABLET WITH NIGHTTIME SNACK. 225 Tablet 3 Triamcinolone Acetonide 0.1 % External Cream (Aristocort) APPLY TO AFFECTED AREA TWICE DAILY 120 g 3 Losartan Potassium 100 MG Oral Tablet (Cozaar) TAKE ONE TABLET BY MOUTH EVERY DAY 180 Tablet 3 metFORMIN HCl 1000 MG Oral Tablet (Glucophage) TAKE ONE TABLET BY MOUTH TWICE A DAY WITH MORNING AND EVENING MEALS 180 Tablet 3 Compressor Nebulizer Inhale via nebulizer . Use as directed. 1 Each 1 Ipratropium-Albuterol 0.5-2.5 (3) MG/3ML Inhalation Solution (Duoneb) Inhale via nebulizer 3 mL every 6 hours as needed for Wheezing. 360 mL 1 Sucralfate 1 GM Oral Tablet (Carafate) Take by mouth 1 Tablet in the morning AND 1 Tablet at noon AND 1 Tablet in the evening AND 1 Tablet before bedtime. 360 Tablet 3 Misc. Devices Laryngectomy tube, size 10LGT 3 Each 0 Misc. Devices Velcro Trach Ties for Laryngectomy Tube 15 Each 11 OneTouch Verio Flex System w/Device Kit Use as directed. To test blood sugars up to 4 times a day Dx E11.22 1 Kit 0 Vitamin B-12 1000 MCG Oral Tablet Take 1 Tab by mouth daily. 90 Tab 3 Misc. Devices MISC Tracheostomy Care Kit #4601 1 Each 0 ONETOUCH DELICA LANCETS FINE MISC Use to test blood sugar 4 times daily dx e11.9 400 Each 3 ferrous sulfate (FEOSOL) 325 (65 FE) MG Tablet TAKE ONE TABLET THREE TIMES DAILY 270 Tab 3 EXAM BP 167/90 | Pulse 69 | Ht 1.626 m (5' 4") | Wt 80.1 kg (176 lb 8 oz) | BMI 30.30 kg/m | BSA 1.9 m GEN- well appearing, NAD, speaking with laryngeal assist device ENT/NECK- Thyroid absent. No nodules. No masses. +trach. CV- RRR. Nl S1/S2. No murmurs. PULM- CTAB. Normal expansion. Nonlabored breathing NEURO- A&Ox3.Normal gait. No tremor PSYCH- Normal mood. Normal affect. Labs: Component Latest Ref Rng 05/14/2022 THYROGLOBULIN 2.8 - 40.9 ng/mL 0.1 (L) COMMENT SEE BELOW TSH 0.27 - 4.20 uIU/mL 2.19 Thyroglobulin Antibody Tumor Monitoring <22.0 IU/mL 11.9 (L) Low Component Latest Ref Rng 05/14/2022 Aldosterone, LC/MS/MS ng/dL 51 PRA, LC/MS/MS 0.25 - 5.82 ng/mL/h 0.06 (L) BRINDA/PRA Ratio 0.9 - 28.9 Ratio 850.0 (H) Component Latest Ref Rng 10/22/2021 Cortisol, Post 1mg Dexamethasone supression <=1.8 ug/dL 1.2 Component Latest Ref Rng 12/10/2022 Hemoglobin A1c 4.0 - 5.6 % 7.6 (H) (H) High 05/2010 b/l FNA A. FNA Left Neck LN: Benign Benign reactive lymph node Adequately cellular specimen Cellblock: The cellblock preparation shows similar findings. Comment: There is a mixed population of large and small lymphocytes, including plasma cells and frequent tingible body macrophages, compatible with a benign reactive lymph node. B. FNA Right Neck LN: Benign Benign reactive lymph node Adequately cellular specimen Special studies: Flow cytometric studies indicate a polyclonal population of lymphocytes supportingthe morphologic impression of a reactive lymph node (see attached procedure report). Comment: There is a mixed population of large and small lymphocytes with plasma cells, compatible with a benign reactive lymph node. Old Imagin/18 neck us FINDINGS Status post thyroidectomy with no residual thyroid tissue seen within the bed. Bilateral neck lymphnodes are again noted largest on the right measuring 13 x 7 x 4 mm (unchanged) and largest on the left measuring 16 x 8 x 9 mm (unchanged). These have a normal overall lymph node shape and a fatty hilum is noted in the largest lymph node on the left. There is minimal and hilar only vascular flow noted. IMPRESSION Stable sonogram of the neck with bilateral lymph nodes which are most likely benign. Images personally reviewed, LN appear benign. 03/25 and 11/06/2021 MRI abdomen Small b/l adrenal adenomas New imaging 03/26 neck us FINDINGS: Thyroid gland: Total thyroidectomy without residual or recurrent thyroid tissue. IMPRESSION: 1. Total thyroidectomy without residual or recurrent thyroid tissue. 08/27 CT chest 1. There is a 5 mm subpleural nodule in the left upper lobe, which is likely benign but is new since 2010. A follow-up CT scan is recommended in 6 months. 12/25 CT chest A 5 mm solid left upper lobe nodule is unchanged in size since 08/19/2022. There are also numerous faint ground-glass nodules in both upper lobes, the largest measuring up to 8 mm, which are also stable. 08/27 MRI pancreas ADRENALS: Bilateral adrenal adenomas measuring 1.2 cm on the right and 0.9 cm on the left. IMPRESSION Motion limited study. 1. Stable postoperative changes of a Whipple procedure. 2. Stable duct dilatation in the distal pancreatic body and tail, with unchanged associated parenchymal atrophy. 3. Stable mild diffuse intrahepatic duct dilatation. 4. Hepatic steatosis. Imp/Plan: 1. Remote recurrent PTC - S/p surgery and BRAND - S/p total laryngectomy Initial risk stratification: Unknown. No initial pathology Response to treatment: complete biochemical, indeterminate structural response with latest suppressed Tg <0.2, nonspecific LAD with benign b/l FNA in 2009 - will get updated labs 2. Post surgical hypothyroidism. - Acceptable control last check. - Will check updated TSH 3. Multiple cancer history - Familial adenomatous polyposis, Gross's Syndrome, colon cancer s/p surgery in 1986. - Pancreatic cancer s/p Whipple 2012. 4. Diabetes mellitus. Type 2 vs pancreatogenous vs combination of both. 5. B/l adrenal nodules Stable with benign imaging characteristics. Labs suggest primary aldosteronism. Discussed in detail with patient medical therapy vs path to potential surgery if AVS lateralizing. She isnt sure which option she prefers. Has had multiple abdominal surgeries and may be high risk for surgery. - I will reach out to PCP and Dr Cifuentes to gain sense of surgical candicacy, then [place] back with patient - will need another 1mg DST after today's labs- will order after lbs complete. RTC tentatively 1 year Nhung Monzon MD Division of Endocrinology [facility] [address] [place] [address] documented in this encounter Nursing Notes * Camila Brown LPN - 03/15/2023 8:01 AM EDT Patient was instructed to not get up on the exam table/exam chair until directed and assisted by their provider; patient is to remain seated in the chair/ wheelchair/ exam table/ exam chair for fall prevention and safety reasons. Patient is aware to have assistance to step down off exam table/exam chair with personnel. Patient voiced full comprehension of instructions. Camila Brown LPN documented in this encounter Plan of Treatment Upcoming Encounters Date Type Specialty Care Team Description 03/18/2023 Office Visit Internal Medicine Orlin Castro MD [address] [place] [address] 05/24/2023 Office Visit Orthopedics Javon Bunn, DO [address] [place] [address] 05/31/2023 Office Visit Pharmacy Pharmacist, [facility] [address] [place] [address] 10/05/2023 Office Visit Dermatology Ling Capellan PA-C [address] [facility] [place] [address] 11/30/2023 Imaging Radiology 02/17/2024 Office Visit Optometry Ari Staley, [place], OD [address] [place] [address] 03/27/2024 Office Visit Endocrinology Nhung Monzon MD [address] [place] [address] Scheduled Orders Name Type Priority Associated Diagnoses Orde r Schedule BASIC METABOLIC PANEL Lab Routine Adrenal nodule (HCC) Expected: 03/18/2023 (Approximate), Expires: 03/18/2024 CORTISOL, POST 1MG DEXAMETHASONE SUPRESSION Lab Routine Adrenal nodule (HCC) Expected: 03/18/2023 (Approximate), Expires: 03/18/2024 DEXAMETHASONE Lab Routine Adrenal nodule (HCC) Expected: 03/18/2023 (Approximate), Expires: 03/18/2024 Scheduled Procedures Name Priority Associated Diagnoses Date/Ti me COLONOSCOPY FLEXIBLE PROXIMAL DIAGNOSTIC Recall FAP (familial adenomatous polyposis) ESOPHAGOGASTRODUODENOSCOPY ( EGD), FLEXIBLE, TRANSORAL, DIAGNOSTIC Recall FAP (familial adenomatous polyposis) Health Maintenance Due Date Last Done Comments *COPD SEVERITY VERIFIED BY PFT 08/02/2019 Depression Screening 03/04/2023 03/04/2022 Influenza Vaccine (FLU shot) (#1) 2023 03/04/2022, 03/21/2021, 04/22/2020, Additional history exists Albumin/Creatinine Ratio 05/14/20232 022, 05/01/2022, 03/06/2022, Additional history exists GFR 05/14/2023 05/14/2022, 09/0 08/2021, 10/13/2021, Additional history exists Diabetic Foot [...] this encounter Medical Devices Implanted Type Area Powerhouse Attendant Device Identifier Shelf Expiration Date Model / Serial / Lot Stent 10fr 7cm - [id number] Implanted:Qty: 1 on 06/17/2010 at OR [facility] NAN : RADHA [place] 01/15/2013 [id number] / / [id number] Description:pancreas documented as of this encounter Visit Diagnoses Diagnosis Postsurgical hypothyroidism- Primary Thyroid cancer (HCC) Malignant neoplasm of thyroid gland Adrenal nodule (HCC) Other specified disorders of adrenal glands Primary aldosteronism (HCC) Hyperaldosteronism, unspecified documented in this encounter Advance Directives Latest [...] the patient have Health Care Power of Architectural Engineering Teacher? No Care Teams Biller Relationship Specialty Start Date End Date Orlin Castro MD [address] [place] [id number] PCP - General Internal Medicine 04/27/19 documented as of this encounter
--- OUTSIDE RECORDS SUMMARY | 2023-06-17 09:56 | External Medical Summary ---
Author Name Unknown Address Unknown Organization [id number]:LABORATORY [facility] - [address] [place] [address] Laboratory Report Ordering Provider Test Date Status RIVKA [id number] 03/15/2023 10:29:13 Final Observation Date Value Abnormality Reference (Units ) Status HbA1C 03/15/2023 10:29:13 6.7 Above high normal 4. 0-5.6 (%) Final The use of HbA1c to monitor glycemic status is based on normal hemoglobin and HbA composition. This test should not be used in patients with abnormal hemoglobin that affects the half life of the red blood cell or the in vivo glycation rates. Glucose, estimated average 03/15/2023 10:29:13 146 Above high normal <126 (mg/dL) Joel bullock Performing Location [facility]ATORY [facility] - [address] [facility] [address]
--- OUTSIDE RECORDS SUMMARY | 2023-06-17 09:56 | External Medical Summary ---
Author Name Unknown Address Unknown Organization [id number]:[facility] [place] [facility] [place] - [address] [place] [address] Laboratory Report Ordering Provider Test Date Status IVY DE JESUS 03/15/2023 10:29:13 Final Observation Date Value Abnormality Reference (Units ) Status Thyroglobulin Ab 03/15/2023 10:29:13 14.4 <22 .0 (IU/mL) Final Performing Location LABORATORY C - [address] [place] [address]
--- OUTSIDE RECORDS SUMMARY | 2023-06-17 09:56 | External Medical Summary | Summary of Care ---
Author Name Unknown Organization [facility] Address [address] [place] [address] Phone [phone] Care Team Providers [employer] Delivery Consultant Name Role Phone Orlin Castro MD Primary Care Provider + Reason for Visit * Reason Onset Date Comments Follow Up 6 month follow u p. Patient denied any new concerns. Medication Administration 03/18/2023 Flu an d/or Pneumo Inj Encounter Details Date Type Department Care Team Description 03/18/2023 Office Visit General Internal Medicine [facility] [address] [place] [address] Orlin Castro MD [address] [place] [address] Type 2 diabetes mellitus with hemoglobin A1c goal of less than 7.0% ([facility])*; Adrenal nodule (HCC); COPD, group B, by GOLD 2017 classification ([facility]); Diabetes mellitus with proteinuria (HCC); Gastroesophageal reflux disease without esophagitis; Hypertension goal BP (blood pressure) < 140/90; Mixed hyperlipidemia; Thyroid cancer (HCC); Primary aldosteronism ([facility]); Elevated LFTs; Need for prophylactic vaccination and inoculation against influenza Allergies Active Allergy Reactions Severity Noted Date [...] s:COPD, group B, by GOLD 2017 classification ([facility]) Inhale via nebulizer . Use as directed. 1 Each 1 2 Active Ipratropium-Albuter ol 0.5-2.5 (3) MG/3ML Inhalation Solution (Duoneb)Indications :COPD, group B, by GOLD 2017 classification ([facility]) Inhale via nebulizer 3 mL [...] Tablet 3 3 09/04/19 24 Active Tiotropium Matthews Monohydrate 2.5 MCG/ACT Inhalation Aerosol Solution (Spiriva Respimat)Indication s:COPD, group B, by GOLD 2017 classification ([facility]) INHALE 2 PUFFS BY MOUTH IN THE MORNING 12 g 3 3 08/07/19 24 Active Additional Information Patient taking differently:2 Puff Inhalation Daily(AM),Hasn't started it yet, Reported on 08/12/2022 Beclomethasone Diprop HFA 80 MCG/ACT Inhalation Aerosol Breath Activated (Qvar RediHaler)Indicatio ns:COPD, group B, by GOLD 2017 classification ([facility]) INHALE 1 PUFF IN THE [...] evening snack 270 Tablet 3 3 Active Dexamethasone 1 MG Oral Tablet Take 1 Tablet by mouth once for 1 dose. at 11pm the night before blood draw (early next morning). 1 Tablet 0 3 03/18/20 23 Active Vancomycin HCl 125 MG Oral Capsule [...] without long-term current use of insulin 03/10/2019 0807/2021 History of MRSA infection 12/29/20182018 Overview: THROAT [...] Sign Reading Time Taken Comments Blood Pressure 142/82 03/18/2023 1:45 PM EDT Pulse 65 03/18/2023 1:21 PM EDT Temperature 36.1 C (97 F) 03/18/2023 1:21 PM EDT Respiratory Rate - - Oxygen Saturation 98% 03/18/2023 1:21 PM EDT Inhaled Oxygen Concentration - - Weight 79.5 kg (175 lb 4.8 oz) 03/18/2023 1:21 P M EDT Height 162.6 cm (5' 4") 03/18/2023 1:21 PM EDT Body Mass Index 30.09 03/18/2023 1:21 PM EDT documented in this encounter Functional Status [...] as of this encounter Progress Notes * Orlin Castro MD - 03/18/2023 1:53 PM EDT Chief Complaint Patient presents with Follow Up 6 month follow up. Patient denied any new concerns. Medication Administration Flu and/or Pneumo Inj SUBJECTIVE: Mallory Soto is a 67 year old female with PMH as below who presents for follow up DM, HTN, hypothyroidism, adrenal nodule. Feels good! Sugars coming down. No cp, sob, hawkins. Breathing has been good.Mood is good. Has been seeing endocrine, concern now adrenal nodule causing hyperaldosteronism. Didn't take bp meds until right before visit today, was busy and forgot this am. Eating well moving bowels fine. She follows with gi for h/o pancreatic cancer, colon polyps, sees ent and endocrine for h/o thyroid cancer Patient Active Problem List Diagnosis Code Insomnia G47.00 Postsurgical hypothyroidism E89.0 Tracheostomy status ([facility]) Z93.0 Mitral valve regurgitation I34.0 History of thyroid cancer Z85.850 Type 2 diabetes mellitus with hemoglobin A1c goal of less than 7.0% ([facility]) E11.9 Hypertension goal BP (blood pressure) < 140/90 I10 History of pancreatic cancer Z85.07 Family history of familial adenomatous polyposis Z83.71 Gastroesophageal reflux disease without esophagitis K21.9 Mixed hyperlipidemia E78.2 COPD, group B, by GOLD 2017 classification ([facility]) J44.9 Obesity, Class I, BMI 30.0-34.9 (see actual BMI) E66.9 Diabetes mellitus with proteinuria ([facility]) E11.29, R80.9 Psoriasis L40.9 Pancreatic duct dilated K86.89 Adrenal nodule ([facility]) E27.8 Primary aldosteronism (HCC) E26.09 Thyroid cancer (HCC) C73 Current Outpatient Medications Medication Sig Dispense Refill ferrous sulfate (FEOSOL) 325 (65 FE) MG Tablet TAKE ONE TABLET THREE TIMES DAILY 270 Tab 3 ONETOUCH DELICA LANCETS FINE MISC Use to test blood sugar 4 times daily dx e11.9 400 Each 3 Misc. Devices MISC Tracheostomy Care Kit [...] humidification to Trach site 1 Each 2 Sodium Chloride 7 % Inhalation Nebulization Solution [...] AND EVENING MEALS 180 Tablet 3 Tiotropium Matthews Monohydrate 2.5 MCG/ACT Inhalation Aerosol Solution (Spiriva [...] DAY NEEDED FOR FLARES 60 g 5 Triamcinolone Acetonide 0.1 % External Cream (Aristocort) APPLY TO AFFECTED AREA TWICE DAILY 120 g 3 Losartan Potassium 100 MG Oral Tablet (Cozaar) TAKE ONE TABLET BY MOUTH EVERY DAY 180 Tablet 3 metFORMIN HCl 1000 MG Oral Tablet (Glucophage) TAKE ONE TABLET BY MOUTH TWICE A DAY WITH MORNING AND EVENING MEALS 180 Tablet 3 OneTouch Verio In Vitro Strip (Glucose Blood) [...] tablet with evening snack 270 Tablet 3 Dexamethasone 1 MG Oral Tablet Take 1 Tablet by mouth once for 1 dose. at 11pm the night before blood draw (early next morning). 1 Tablet 0 No current facility-administered medications for this visit. Review of patient's allergies indicates: Allergen Reactions Ambien [Zolpidem Tartrate] Psych complications Crestor [Rosuvastatin] Elevated lft Hctz [Hydrochlorothiazide] brenda Nsaids Other (Please comment) Gastric ulcer with anemia Health Maintenance Due Topic Date Due *COPD SEVERITY VERIFIED BY PFT Never done Depression Screening 03/04/2023 Albumin/Creatinine Ratio 05/14/2023 ROS: CONSTITUTIONAL: No change in weight, No weakness, and No fevers, sweats, or chills EYE: No recent significant change in vision, No eye pain, redness, discharge, and No diplopia EARS: No ear pain, No drainage, No tinnitus or vertigo, and No recent change in hearing NOSE: No history of frequent colds or sinusitis, No nasal stuffiness, No history of Hay Fever, and No significant epistaxis PULMONARY: No recent change in breathing CARDIOVASCULAR: No chest pain, No shortness of breath, No dyspnea on exertion, No orthopnea, No paroxysmal nocturnal dyspnea, No edema, No palpitations, and No syncope GASTROINTESTINAL: No abdominal pain, No change in bowel habits, No significant heartburn, No significant change in appetite, No nausea, vomiting, diarrhea, or constipation, No hematemesis, No blood in stools or black tarry stools, No abdominal bloating or early satiety, and No dysphagia ALL OTHER SYSTEMS NEGATIVE I reviewed social, PMH, PSH, and family history and updated where needed. 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 No mold. 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 COPD (chronic obstructive pulmonary disease) (HCC) Dermatitis Diabetes mellitus with proteinuria (HCC) 01/26/2021 Family history of colon cancer FAP---[facility] grewal kyle Family history of familial adenomatous polyposis 03/10/2019 Family history of FAP (familial adenomatous polyposis) 09/20/2017 History of colon cancer 06/08/2017 History of colon polyps 11/10/2018 Tubular adenoma History of MRSA infection 12/29/2018 THROAT History of pancreatic cancer 06/08/2017 History of thyroid cancer removed [facility] Hypertension goal BP (blood pressure) < 140/90 03/10/2019 Incisional hernia 12/15/2021 Dr Aayush Estrella Insomnia, unspecified Lumbago 1970 chronic since childhood Malignant neoplasm of thyroid gland (HCC) 2007 removed [facility] Malignant neoplasm of thyroid gland (HCC) removed [facility] Mixed hyperlipidemia 03/13/2019 Obesity, Class I, BMI 30.0-34.9 (see actual BMI) 01/24/2021 Other congenital anomaly of gallbladder, bile ducts, 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 ercp - 1 plastic stent placed Other specified acquired hypothyroidism 1973 s/p goiter removal Pancreatic cancer (HCC) Papillary thyroid carcinoma (HCC) 09/24/2015 TUBULAR ADENOMA- duodenum 07/07/2010 Past Surgical History: Procedure Laterality Date ANESTH, UPPER GI ENDOSCOPIC PROCS 06/06/2010 ANESTH, UPPER GI ENDOSCOPIC PROCS 06/06/2010 Dr Allen & Dr ESCOBEDO at ENDOSCOPY [facility] ANESTH, UPPER GI ENDOSCOPIC PROCS 08/18/2010 ANESTHESIA FOR UPPER GI ENDOSCOPIC PROCEDURES (ERCP OR UPPER GI) performed by ALICIA MATHEWS at ENDOSCOPY [facility] BREAST BIOPSY Left Benign BREAST BIOPSY Left Benign BREAST BIOPSY Left Benign COLONOSCOPY, DIAGNOSTIC (RECTUM) 09/10/2011 COLONOSCOPY FLEXIBLE PROXIMAL DIAGNOSTIC performed by ALICIA MATHEWS at [facility] COLONOSCOPY, DIAGNOSTIC (RECTUM) 01/13/2012 COLONOSCOPY FLEXIBLE PROXIMAL DIAGNOSTIC performed by Alicia Mathews DO at ENDOSCOPY [facility] COLONOSCOPY, DIAGNOSTIC (RECTUM) 07/21/2012 COLONOSCOPY FLEXIBLE PROXIMAL DIAGNOSTIC performed by Alicia Mathews DO at ENDOSCOPY [facility] COLONOSCOPY, DIAGNOSTIC (RECTUM) 01/13/2013 COLONOSCOPY FLEXIBLE PROXIMAL DIAGNOSTIC performed by Alicia Mathews DO at ENDOSCOPY [facility] COLONOSCOPY, DIAGNOSTIC (RECTUM) 01/19/2014 COLONOSCOPY FLEXIBLE PROXIMAL DIAGNOSTIC performed by Alicia Mathews DO at ENDOSCOPY [facility] COLONOSCOPY, DIAGNOSTIC (RECTUM) N/A 09/27/2014 COLONOSCOPY FLEXIBLE PROXIMAL DIAGNOSTIC performed by Alicia Mathews DO at [facility] COLONOSCOPY, DIAGNOSTIC (RECTUM) N/A 03/15/2015 COLONOSCOPY FLEXIBLE PROXIMAL DIAGNOSTIC performed by Alicia Mathews DO at [facility] COLONOSCOPY, DIAGNOSTIC (RECTUM) N/A 06/13/2015 COLONOSCOPY FLEXIBLE PROXIMAL DIAGNOSTIC performed by Alicia Mathews DO at ENDOSCOPY [facility] COLONOSCOPY, DIAGNOSTIC (RECTUM) 04/08/2016 normal/inpt [facility] COLONOSCOPY, DIAGNOSTIC (RECTUM) 07/02/2017 COLONOSCOPY FLEXIBLE PROXIMAL DIAGNOSTIC performed by Alicia Mathews DO at ENDOSCOPY [facility] COLONOSCOPY, DIAGNOSTIC (RECTUM) N/A 08/30/2018 COLONOSCOPY FLEXIBLE PROXIMAL DIAGNOSTIC performed by Alicia Mathews DO at ENDOSCOPY [facility] COLONOSCOPY, DIAGNOSTIC (RECTUM) 12/03/2021 benign adenomatous polyps, repeat 1 yr / [facility] EGD, FLEXIBLE, DIAGNOSTIC 09/10/2011 UPPER GI ENDOSCOPY DIAGNOSTIC performed by ALICIA MAHTEWS at ENDOSCOPY [facility] EGD, FLEXIBLE, DIAGNOSTIC 07/21/2012 UPPER GI ENDOSCOPY DIAGNOSTIC performed by Alicia Mathews DO at ENDOSCOPY [facility] EGD, FLEXIBLE, DIAGNOSTIC N/A 05/14/2016 ESOPHAGOGASTRODUODENOSCOPY (EGD), FLEXIBLE, TRANSORAL, DIAGNOSTIC performed by Alicia Mathews DO at ENDOSCOPY [facility] EGD, FLEXIBLE, DIAGNOSTIC 04/08/2016 anastamotic ulcer/inpt [facility] EGD, FLEXIBLE, DIAGNOSTIC N/A 07/02/2017 ESOPHAGOGASTRODUODENOSCOPY (EGD), FLEXIBLE, TRANSORAL, DIAGNOSTIC performed by Alicia Mathews DO at ENDOSCOPY [facility] EGD, FLEXIBLE, DIAGNOSTIC N/A 08/30/2018 ESOPHAGOGASTRODUODENOSCOPY (EGD), FLEXIBLE, TRANSORAL, DIAGNOSTIC performed by Alicia Mathews DO at ENDOSCOPY [facility] EGD, FLEXIBLE, DIAGNOSTIC 12/03/2021 normal, repeat 1 yr / [facility] EGD, W/ENDOSCOPIC US 08/11/2012 UPPER GI ENDOSCOPY ENDOSCOPIC ULTRASOUND performed by Garcia Casey MD at ENDOSCOPY [facility] EGD, W/ENDOSCOPIC US 11/04/2012 UPPER GI ENDOSCOPY ENDOSCOPIC ULTRASOUND performed by Garcia Casey MD at ENDOSCOPY [facility] EGD, W/ENDOSCOPIC US N/A 05/08/2021 ESOPHAGOGASTRODUODENOSCOPY (EGD), FLEXIBLE, TRANSORAL, ENDOSCOPIC ULTRASOUND performed by Jane Gutierrez MD at ENDOSCOPY [facility] ERCP, DIAGNOSTIC, SPECIMEN COLLECTION 09/14/2012 ENDOSCOPIC RETROGRADE CHOLANGIOPANCREATOGRAPHY DIAGNOSTIC performed by Garcia Casey MD at ENDOSCOPY [facility] ERCP, DIAGNOSTIC, SPECIMEN COLLECTION 11/04/2012 ENDOSCOPIC RETROGRADE CHOLANGIOPANCREATOGRAPHY DIAGNOSTIC performed by Garcia Casey MD at ENDOSCOPY [facility] MAINE FLEX SIGMOID DIAGNOSITIC N/A 09/18/2019 SIGMOIDOSCOPY FLEXIBLE DIAGNOSTIC performed by Alicia Mathews DO at ENDOSCOPY [facility] MUSCLE/FASCIA DEBRIDEMENT, FIRST 20 CM2 N/A 11/29/2020 DEBRIDEMENT SKIN SUBCUTANEOUS TISSUE AND MUSCLE performed by Howard Montes De Oca DO at OR [facility] OTHER 2006 tracheostomy & laryngectomy REMOVAL OF COLON/ILEOSTOMY 1976 x3 REMOVAL OF THYROID GLAND 2006 Thyroidectomy REMOVE PANCREAS, PARTIAL ([place]) 06/17/2010 PANCREATECTOMY PROXIMAL WITH TOTAL DUODENECTOMY, Dr CIFUENTES REMOVE PANCREAS, PARTIAL ([place]) 12/02/2012 12/02/2012 PANCREATECTOMY PROXIMAL WITH SUBTOTAL DUODENECTOMY performed by Julio C Cifuentes MD at OR [facility] REPAIR INITIAL INCISIONAL OR VENTRAL HERNIA; REDUCIBLE 12/15/2021 done at [facility] by Dr Aayush Estrella REPAIR WINDPIPE OPENING, COMPLEX 06/02/2021 TRACHEOSTOMA REVISION WITH FLAP performed by Howard Montes De Oca DO at OR [facility] REPAIR WINDPIPE OPENING, SIMPLE N/A 08/07/2015 TRACHEOSTOMA REVISION SIMPLE performed by Howard Montes De Oca DO at [facility] REPAIR WINDPIPE OPENING, SIMPLE Bilateral 11/29/2020 TRACHEOSTOMA REVISION SIMPLE performed by Howard Montes De Oca DO at OR [facility] SIGMOIDOSCOPY, DIAGNOSTIC N/A 10/15/2020 SIGMOIDOSCOPY FLEXIBLE DIAGNOSTIC performed by Alicia Mathews DO at ENDOSCOPY [facility] SIGMOIDOSCOPY, DIAGNOSTIC N/A 04/29/2021 SIGMOIDOSCOPY FLEXIBLE DIAGNOSTIC performed by Monae Batista DO at ENDOSCOPY [facility] US GUIDED BREAST BIOPSY RIGHT Right Benign Family History Problem Relation Age of Onset Colon cancer Father Colon polyps Father Colon cancer Sister Colon polyps Sister No Known Problems Sister No Known Problems Sister No Known Problems Brother No Known Problems Brother Thyroid Disorder No significant family history OBJECTIVE: PHYSICAL EXAM: BP 142/82 | Pulse 65 | Temp 36.1 C (97 F) | Ht 1.626 m (5' 4") | Wt 79.5 kg (175 lb 4.8 oz) | SpO2 98% | BMI 30.09 kg/m | BSA 1.89 m General: alert, healthy, and no distress Head: Normocephalic, No masses, lesions, tenderness or abnormalities Eye Exam: conjunctiva are pink and non-injected, sclera clear Ears: External ears normal, Canals clear, TM's Normal Heart: regular rate & rhythm, no murmur, no gallops, PMI non-displaced, S-1 normal, and S-2 normal Lungs: normal respiratory rate and rhythm, lungs clear to auscultation Extremities: no edema, no clubbing, no cyanosis Neuro Exam: alert with fluent speech, gait normal Neck: trach site clean Psych: normal affect, no flight of ideas or tangential thought, good eye contact, no pressured speech I reviewed last A1c, tsh, gfr, lft 03/15/23 endocrine: 5. B/l adrenal nodules Stable with benign imaging characteristics. Labs suggest primary aldosteronism. Discussed in detail with patient medical therapy vs path to potential surgery if AVS lateralizing. She isnt sure which option she prefers. Has had multiple abdominal surgeries and may be high risk for surgery. ASSESSMENT: E11.9 Type 2 diabetes mellitus with hemoglobin A1c goal of less than 7.0% ([facility]) (primary encounter diagnosis) E27.8 Adrenal nodule (HCC) J44.9 COPD, group B, by GOLD 2017 classification ([facility]) E11.29,R80.9 Diabetes mellitus with proteinuria ([facility]) K21.9 Gastroesophageal reflux disease without esophagitis I10 Hypertension goal BP (blood pressure) < 140/90 E78.2 Mixed hyperlipidemia C73 Thyroid cancer (HCC) E26.09 Primary aldosteronism (HCC) R79.89 Elevated LFTs Z23 Need for prophylactic vaccination and inoculation against influenza PLAN: Type 2 diabetes mellitus with hemoglobin A1c goal of less than 7.0% ([facility]) (Primary) Controlled Cont metformin, repaglinide Appreciate mtm aid Adrenal nodule (HCC) Appreciate endocrine aid Work up in progress, can consider surgery if best option COPD, group B, by GOLD 2017 classification ([facility]) Sees pulm (dr. Contreras) Cont inhalers Diabetes mellitus with proteinuria ([facility]) - ALBUMIN / CREATININE RATIO, URINE; Future; Expected date: 03/18/2023 Cont losartan Gastroesophageal reflux disease without esophagitis Cont ppi Hypertension goal BP (blood pressure) < 140/90 Cont meds Slightly elevated today, but could be didn't take meds until right prior to visit Cont amlodipine, coreg, losartan Aldosteronism per endocrine Mixed hyperlipidemia Cont zetia Thyroid cancer (HCC) Sees ent, endocrine Primary aldosteronism (HCC) As above Elevated LFTs - HEPATIC FUNCTION PANEL; Future; Expected date: 04/17/2023 - BASIC METABOLIC PANEL; Future; Expected date: 03/18/2023 Recheck 1 month Need for prophylactic vaccination and inoculation against influenza - INFLUENZA VACC, QUAD, HIGH DOSE (FLUZONE HD) Follow Up: Return in about 6 months (around 09/16/2023), or if symptoms worsen or fail to improve. Orlin Castro MD * Ozzy Whitfield CMA - 03/18/2023 1:20 PM EDT PRE - ADMINISTRATION DOCUMENTATION Are you experiencing any cold symptoms or fever? No Have you had Guillain-[place] Syndrome (an illness that causes paralysis) within the last 6 weeks? No Have you had the flu shot in the past? YES Have you ever had a reaction to the flu shot? No Ozzy Whitfield CMA, 03/18/2023 1:20 PM Immunization Administration Documentation Time Out Procedure Performed: Yes Patient Identified (Ask Name/Date of ): Yes Does the patient have a fever greater than 101 degrees today? No Patient allergic to latex? No VFC Stock: Yes, Does this patient qualify for immunization through the [facility] program because he/she (check only one): No-this child does not qualify for [facility] program; refer patient to a Federally Qualified [facility] Immunization(s) verified: Yes, Immunization Name: Flu, VIS Sheet(s) given: Yes Verified Side and Site: Yes Verified Shot(s) with Parent(s)/Patient: Yes documented in this encounter Nursing Notes * Ozzy Whitfield CMA - 03/18/2023 1:20 PM EDT Chief Complaint Patient presents with Follow Up 6 month follow up. Patient denied any new concerns. Medication Administration Flu and/or Pneumo Inj documented in this encounter Plan of Treatment Upcoming Encounters Date Type Specialty Care Team Description 05/24/2023 Office Visit Orthopedics Javon Bunn, DO [address] [facility] [place] [address] 05/31/2023 Office Visit Pharmacy Pharmacist1, [facility] [address] [place] [address] 09/30/2023 Office Visit Internal Medicine Orlin Castro MD [address] [place] [address] 10/05/2023 Office Visit Dermatology Ling Capellan PA-C [address] [place] [address] 11/30/2023 Imaging Radiology 02/17/2024 Office Visit Optometry Ari Staley, [place], OD [address] [place] [address] 03/27/2024 Office Visit Endocrinology NicolásNhung MD [address], [place] [id number] Scheduled Orders Name Type Priority Associated Diagnoses Orde r Schedule ALBUMIN / CREATININE RATIO, URINE Lab Routine Diabetes mellitus with proteinuria (HCC) Expected: 03/18/2023 (Approximate), Expires: 03/18/2024 HEPATIC FUNCTION PANEL Lab Routine Elevated LFTs Expected: 04/17/2023 (Approximate), Expires: 03/18/2024 BASIC METABOLIC PANEL Lab Routine Elevated LFTs Expected: 03/18/2023 (Approximate), Expires: 03/17/2024 Scheduled Procedures Name Priority Associated Diagnoses Date/Ti [...] this encounter Medical Devices Implanted Type Area Vending Route Driver Device Identifier Shelf Expiration Date Model / Serial / Lot Stent 10fr 7cm - [id number] Implanted:Qty: 1 on 06/17/2010 at [facility] COOK : RADHA [place] 01/15/2013 [id number] / / [id number] Description:pancreas documented as of this encounter Visit Diagnoses Diagnosis Type 2 diabetes mellitus with hemoglobin A1c goal of less than 7.0% (HCC)- Primary Adrenal nodule (HCC) Other specified disorders of adrenal glands COPD, group B, by GOLD 2017 classification (HCC) Diabetes mellitus with proteinuria (HCC) Gastroesophageal reflux disease without esophagitis Esophageal reflux Hypertension goal BP (blood pressure) < 140/90 Unspecified essential hypertension Mixed hyperlipidemia Thyroid cancer (HCC) Malignant neoplasm of thyroid gland Primary aldosteronism (HCC) Hyperaldosteronism, unspecified Elevated LFTs Other abnormal blood chemistry Need for prophylactic vaccination and inoculation against influenza documented in this encounter Advance Directives Latest [...] the patient have Health Care Power of Tag And Label Cutter? No [employer] Delivery Consultant Relationship Specialty Start Date End Date Orlin Castro MD [address] [place] [id number] PCP - General Internal Medicine 04/27/19 documented as of this encounter
--- OUTSIDE RECORDS SUMMARY | 2023-06-17 09:56 | External Medical Summary | Summary of Care ---
Author Name Unknown Organization [facility] Address [address] [facility] [place] [address] Phone [phone] Care Team Providers Care Rn Clinical Documentation Name Role Phone Orlin Castro MD Primary Care Provider + Reason for Visit * Reason Comments Knee Pain Bilateral Encounter Details Date Type Department Care Team Description 02/17/2023 Office Visit Orthopaedics [facility] [address] [place] [address] Javon Bunn DO [address] [place] [address] Primary osteoarthritis of both knees* Allergies Active Allergy Reactions Severity Noted Date Comments Zolpidem Tartrate Psych complications 6 Rosuvastatin 04/05/2020 Elevated lft Hydrochlorothiazide 12/29/2019 brenda Nsaids Other (Please comment) 04/14/2016 Gastric ulcer with anemia documented as of this encounter (statuses as of 02/17/2023) Medications Medication Sig Dispensed Refills Start Date [...] 180 Tablet 3 09/04/2022 4 Active Tiotropium [place] Monohydrate 2.5 MCG/ACT Inhalation Aerosol Solution (Spiriva [...] Additional Information Patient taking differently:1 Puff Inhalation BID(AM/PM),Hasn't started it yet, Reported on 08/12/2022 Clobetasol Propionate 0.05 % External Ointment (Temovate)Indicatio ns:Psoriasiform dermatitis APPLY TO AFFECTED AREAS ON ARMS AND FEET TWO TIMES A DAY NEEDED FOR FLARES 60 g 5 07/21/2022 4 Active Additional Information Patient not taking.Reported on 01/12/2023 Repaglinide 1 MG Oral Tablet (Prandin)Indication s:Type 2 diabetes mellitus with hemoglobin A1c goal of less than 7.0% ([facility]),Diabetes mellitus with proteinuria (HCC) TAKE ONE TABLET [...] goal of less than 7.0% ([facility]) Use to test blood glucose 4 times daily. DX: E11.9 400 Strip 3 01/25/2023 Active Levothyroxine Sodium 200 MCG Oral Tablet (Levoxyl)Indication s:Postsurgical hypothyroidism TAKE 1 TABLET BY MOUTH DAILY AT LEAST 30 MINUTES PRIOR TO FIRST MEAL OF THE DAY OR OTHER MEDICATIONS 90 Tablet 1 02/08/2023 Active Hospital, Clinic, or Other Facility Administered Medication Ordered Dose Route Frequency Start Date End Date Status lidocaine 1% 1 mL - triamcinolone acetonide 40 mg/mL 1 mL inj 2 mLIndications:Primary osteoarthritis of both knees 2 mL IJ ONCE 02/17/2023 02/17/2023 Ended lidocaine 1% 1 mL - triamcinolone acetonide 40 mg/mL 1 mL inj 2 mLIndications:Primary osteoarthritis of both knees 2 mL IJ ONCE 02/17/2023 02/17/2023 Ended documented as of this encounter (statuses as of 02/17/2023) Active Problems Problem Noted Date Pancreatic duct dilated 01/06/2022 Adrenal nodule 01/06/2022 [...] as of this encounter (statuses as of 02/17/2023) Resolved Problems Problem Noted Date Resolved Date [...] as of this encounter (statuses as of 02/17/2023) Immunizations Name Administration Dates Next Due COVID-19 [...] 03/04/2022 Seasonal Influenza, Quadriva lent, No Preserve, 6 Mons & Above, IM 03/21/2021,04/22/2020,03/10/2019,04/21,04/14/2017 Seasonal Influenza, Quadriva lent, No Preserve, IM [...] this encounter Progress Notes * Javon Bunn, - 02/17/2023 8:30 AM EDT Mallory Soto [id number] INJECTION NOTE Mallory Soto is a 67 year old female who presents to [facility] for Bilateral knee. injections Last injected 11/16/22 she got relief for 3+ months Physical Exam General: in no acute distress Mood and Affect: normal Gait and Station: mildly antalgic Knee exam Active range of motion 0-110 No effusion tenderness to palpation at medial joint line b/l Assessment and Plan: see procedure note f/u 3 months Javon Bunn DO Primary Care Sports Medicine [facility] [place] [address] Procedure note (knee injection), bilateral [...] documented in this encounter Nursing Notes * Geno Espinosa LPN - 02/17/2023 8:22 AM EDT Follow up Patient Follow up: Knee Side: Bilateral Date of last visit: 11/16/22 Improvement since last office visit: 60 percent. Prior Treatment: Injection Here for Test Results: No Goals for this appointment: documented in this encounter Plan of Treatment Upcoming Encounters Date Type Specialty Care Team Description 03/15/2023 Office Visit Endocrinology Nhung Monzon MD [address] [place] [address] 03/16/2023 Office Visit Pharmacy Pharmacist, [facility] [address] [place] [address] 03/16/2023 Office Visit Dermatology Ling Capellan PA-C [address] [facility] [address] 03/18/2023 Office Visit Internal Medicine Orlin Castro MD [address] [place] [address] 05/24/2023 Office Visit Orthopedics Javon Bunn DO [address] [place] [address] 11/30/2023 Imaging Radiology 02/17/2024 Office Visit Optometry Ari Staley, [place] Bull[place], OD [address] [place] [address] Scheduled Orders Name Type Priority Associated Diagnoses Orde r Schedule INJECT MAJOR JX/BURSA W/O US GUIDE Procedures Routine Primary osteoarthritis of both knees Ordered: 02/17/2023 Scheduled Procedures Name Priority Associated Diagnoses Date/Ti me COLONOSCOPY FLEXIBLE PROXIMAL DIAGNOSTIC Recall FAP (familial adenomatous polyposis) ESOPHAGOGASTRODUODENOSCOPY ( EGD), FLEXIBLE, TRANSORAL, DIAGNOSTIC Recall FAP (familial adenomatous polyposis) Health Maintenance Due Date Last Done Comments *COPD SEVERITY VERIFIED BY PFT 08/02/2019 Depression Screening, Annual for Pts 12 and Over 03/04/2023 03/04/2022 Influenza Vaccine (FLU shot) (#1) 2023 03/04/2022, 03/21/2021, 04/22/2020, Additional history exists Albumin/Creatinine Ratio 05/14/20232 022, 05/01/2022, 03/06/2022, Additional history exists GFR 05/14/2023 05/14/2022, 090 08/2021, 10/13/2021, Additional history exists TSH 05/14/2023 05/14/2022, 090 08/2021, 05/10/2021, Additional history exists HbA1c 06/11/2023 12/10/2022, 030 12/2022, 05/14/2022, Additional history exists DIABETES-FOOT EXAM 08/07/2023 08/07/2022, 0 08/21/2021, 10/22/2020, Additional history exists Mammogram 09/12/2023 09/11/2022, 03/2022, 09/09/2020, Additional history exists COLONOSCOPY-ANNUAL AGES [...] this encounter Medical Devices Implanted Type Area Banking Center Manager Device Identifier Shelf Expiration Date Model / Serial / Lot Stent 10fr 7cm - [id number] Implanted:Qty: 1 on 06/17/2010 at OR [facility] NAN : RADHA MON[place]NA 01/15/2013 [id number] / / [id number] Description:pancreas documented as of this encounter Visit [...] 2 mL 2 mL, Injection, ONCE, On Wed02/17/23 at 0900, For 1 dose, Lidocaine 1% 1mL Triamcinolone Acetonide 40 mg/mL 1 mL (Final concentration = 20 mg/mL) REFRIGERATE and SHAKE WELL Given 02/17/2023 8:34 AM EDT 2 mL Knee Right lidocaine 1% 1 mL - triamcinolone acetonide 40 mg/mL 1 mL inj 2 mL 2 mL, Injection, ONCE, On Wed02/17/23 at 0900, For 1 dose, Lidocaine 1% 1mL Triamcinolone Acetonide 40 mg/mL 1 mL (Final concentration = 20 mg/mL) REFRIGERATE and SHAKE WELL Given 02/17/2023 8:34 AM EDT 2 mL Knee Left documented in this [...] the patient have Health Care Power of Registered Veterinary Technician? No Care Teams Rn Clinical Documentation Relationship Specialty Start Date End Date Orlin Castro MD [address] [place] [id number] PCP - General Internal Medicine 04/27/19 documented as of this encounter
--- OUTSIDE RECORDS SUMMARY | 2023-06-17 09:56 | External Medical Summary ---
Author Name Unknown Address Unknown Organization : Laboratory Report Ordering Provider Test Date Status IVY DE JESUS 03/15/2023 10:29:13 Final Observation Date Value Abnormality Reference (Units ) Status Thyroglobulin 03/15/2023 10:29:13 0.1 Below low normal 2.8-40.9 (ng/mL) Final Intact Thyroid: 2.8-40.9 ng/ mL
Athyrotic: <0.1 ng/mL
Note: Abnormal flagging is based upon the reference
interval for patients with intact thyroid.
This test was performed using the Snocap Sierra
chemiluminescent method. Values obtained from
different assay methods cannot be used inter-
changeably. Thyroglobulin levels, regardless
of value, should not be interpreted as absolute
evidence of the presence or absence of disease. comment 03/15/2023 10:29:13 SEE BELOW Final Thyroglobulin antibodies (TG AB) interfere with
thyroglobulin (TG) assays; therefore, TGAB assay
should always be performed in conjunction with a
TG assay.
For additional information, please refer to
https://education.Iris Mobile.ipadio/faq/RLJ430
(This link is being provided for informational/
educational purposes only.)

Test Performed at:
[facility]
[address] [facility]
[place] [address]
Nj Garcia M.D., Ph.D.,Director of Laboratories Performing Location
--- OUTSIDE RECORDS SUMMARY | 2023-06-17 09:57 | External Medical Summary | Summary of Care ---
Author Name Unknown Organization [facility] Address [address] [place] [address] Phone [phone] Care Team Providers Care Instructional Facilitator Name Role Phone Orlin Castro MD Primary Care Provider + Reason for Visit * Reason Comments Eye Exam 67yo female here for routine eye exam. Pt denies any vision changes but does notice some blurriness with distant vision OU. Denies any new floaters or flashes of light. Denies double vision. No other functional [place] complaints. Encounter Details Date Type Department Care Team Description 01/12/2023 Office Visit Optometry, [place] [address] [place] [address] Ari Staley, [place], [address] [place], [place] [id number] Type 2 diabetes mellitus with hemoglobin A1c goal of less than 7.0% ([facility])*; Disorder of refraction and accommodation Allergies Active Allergy Reactions Severity Noted Date Comments Zolpidem Tartrate Psych complications 6 Rosuvastatin 04/05/2020 Elevated lft Hydrochlorothiazide 12/29/2019 brenda Nsaids Other (Please comment) 04/14/2016 Gastric ulcer with anemia documented as of this encounter (statuses as of 01/12/2023) Medications Medication Sig Dispensed Refills Start Date End Date Status ferrous sulfate (FEOSOL) 325 (65 FE) MG Tablet TAKE ONE TABLET THREE TIMES DAILY 270 Tab 3 11/30/2018 Active ONETOUCH DELICA LANCETS FINE MISC Use to test blood sugar 4 times daily dx e11.9 400 Each 3 03/09/2019 Active Misc. Devices [facility] Tracheostomy Care Kit #4601 1 Each 0 [...] SPASMS. 90 Tablet 3 09/16/2022 4 Active Glucose Blood In Vitro StripIndications:Ty pe 2 diabetes mellitus with hemoglobin A1c goal of less than 7.0% ([facility]) USE TO TEST BLOOD SUGAR 4 TIMES DAILY 400 Strip 3 09/07/2022 4 Active Pantoprazole Sodium 40 MG Oral Tablet Delayed Release (Protonix) TAKE ONE TABLET BY MOUTH EVERY DAY 90 Tablet 3 09/05/2022 4 Active Carvedilol 25 MG Oral Tablet (Coreg)Indications: HTN, goal below 140/90 TAKE ONE TABLET BY MOUTH 2 TIMES A DAY WITH MORNING AND EVENING MEALS 180 Tablet 3 09/04/2022 4 Active Tiotropium [place] Monohydrate 2.5 MCG/ACT Inhalation Aerosol Solution (Spiriva [...] BID(AM/PM),Hasn't started it yet, Reported on 08/12/2022 Levothyroxine Sodium 200 MCG Oral Tablet (Levoxyl)Indication s:Postsurgical hypothyroidism TAKE 1 TABLET BY MOUTH DAILY AT LEAST 30 MINUTES PRIOR TO FIRST MEAL OF THE DAY OR OTHER MEDICATIONS 90 Tablet 1 08/07/2022 4 Active Clobetasol Propionate 0.05 % External Ointment (Temovate)Indicatio [...] MEALS 180 Tablet 3 05/06/2022 3 Active documented as of this encounter (statuses as of 01/12/2023) Active Problems Problem Noted Date Pancreatic duct [...] as of this encounter (statuses as of 01/12/2023) Resolved Problems Problem Noted Date Resolved Date [...] as of this encounter (statuses as of 01/12/2023) Immunizations Name Administration Dates Next Due COVID-19 [...] as of this encounter Progress Notes * Rancho Chapman Jr., OD - 01/12/2023 12:56 PM EDT 01/12/2023 HPI: Mallory Soto is a 67 year old female who presents to the clinic for evaluation of Eye Exam (67yo female here for routine eye exam. Pt denies any vision changes but does notice some blurrinesswith distant vision OU. Denies any new floaters or flashes of light. Denies double vision. No otherfunctional [place] complaints.) Reviewed past medical, family, and social history. Reviewed nursing notes. 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 FAP---[facility] Family history of familial adenomatous polyposis 03/10/2019 [...] carcinoma (HCC) 09/24/2015 TUBULAR ADENOMA- duodenum 07/07/2010 Assessment and Plan: (E11.9) Type 2 diabetes mellitus with hemoglobin A1c goal of less than 7.0% (HCC) (primary encounter diagnosis) Plan: monitor, no ophthalmic complications (H52.6) Disorder of refraction and accommodation Plan: EYEGLASS PRESCRIPTION Return in about 1 year (around 01/13/2024) for Clinic Visit. documented in this encounter Nursing Notes * Shauna Porctor LPN - 01/12/2023 9:46 AM EDT Mallory Soto is a 67 year old female 01/09/2022 (in office), Visit date not found (telemedicine) CHIEF COMPLAINT: 67yo female here for routine eye exam. Pt denies any vision changes but does notice some blurrinesswith distant vision OU. Denies any new floaters or flashes of light. Denies double vision. No otherfunctional [place] complaints. HISTORY OF PRESENT ILLNESS: Have you experienced any changes in your eyes since your last visit? No Are you experiencing any new problems with your eyes?Yes Are you diabetic? Yes, BS 151 CURRENT EYE MEDICATIONS None VISUAL ACUITY/TONOMETRY/GLASS RX: See Eye EXAM documented in this encounter Plan of Treatment Upcoming Encounters Date Type Specialty Care Team Description 02/17/2023 Office Visit Orthopedics Javon Bunn, DO [address] [place] [address] 03/15/2023 Office Visit Endocrinology Nhung Monzon MD [address] [place] [address] 03/16/2023 Office Visit Pharmacy Pharmacist1, [facility] [address] [place] [address] 03/16/2023 Office Visit Dermatology Ling Capellan PA-C [address] [place] [address] 03/18/2023 Office Visit Internal Medicine Orlin Castro MD [address] [place] [address] 11/30/2023 Imaging Radiology 02/17/2024 Office Visit Optometry Ari Staley, [place], OD [address] [place], [place] [id number] Scheduled Procedures Name Priority Associated Diagnoses Date/Ti [...] 12/10/2022, 03/0 12/2022, 05/14/2022, Additional history exists DIABETES-FOOT EXAM [...] this encounter Medical Devices Implanted Type Area Medical Voucher Clerk Device Identifier Shelf Expiration Date Model / Serial / Lot Stent 10fr 7cm - [id number] Implanted:Qty: 1 on 06/17/2010 at [facility] COOK : RADHA MON[place] 01/15/2013 [id number] / / [id number] Description:pancreas documented as of this encounter Visit Diagnoses Diagnosis Type 2 diabetes mellitus with hemoglobin A1c goal of less than 7.0% ([facility])- Primary Disorder of refraction and accommodation Unspecified disorder of refraction and accommodation documented in this encounter Advance Directives Latest [...] the patient have Health Care Power of Enamel Finisher? No Care Teams Instructional Facilitator Relationship Specialty Start Date End Date Orlin Castro MD [address] [place] [address] PCP - General Internal Medicine 04/27/19 documented as of this encounter
--- OUTSIDE RECORDS SUMMARY | 2023-06-17 09:57 | External Medical Summary | Summary of Care ---
Author Name Unknown Organization [facility] Address [address] [facility] [place] [address] Phone [phone] Care Team Providers Care Lens Generator Name Role Phone Orlin Castro MD Primary Care Provider + Reason for Visit * Reason Comments Voice Change Encounter Details Date Type Department Care Team Description 01/06/2023 Rehab Services Voice Lab [facility] [address] [place] [address] Toño Baker, [facility] OPER[facility] [address] [place] [address] Voice impairment Allergies Active Allergy Reactions Severity Noted Date Comments Zolpidem Tartrate Psych complications 6 Rosuvastatin 04/05/2020 Elevated lft Hydrochlorothiazide 12/29/2019 brenda Nsaids Other (Please comment) 04/14/2016 Gastric ulcer with anemia documented as of this encounter (statuses as of 01/06/2023) Medications Medication Sig Dispensed Refills Start Date End Date Status ferrous sulfate (FEOSOL) 325 (65 FE) MG Tablet TAKE ONE TABLET THREE TIMES DAILY 270 Tab 3 11/30/2018 Active HelloSignTOUCH DELICA LANCETS FINE MISC Use to test blood sugar 4 times daily dx e11.9 400 Each 3 03/09/2019 Active Misc. Devices MISC Tracheostomy Care Kit #4601 1 Each 0 10/02/2019 Active Vitamin B-12 1000 MCG Oral Tablet Take 1 Tab by mouth daily. 90 Tab 3 03/07/2021 Active AC HoldcoTouch Verio Flex System w/Device Kit Use as [...] group B, by GOLD 2017 classification ([facility]) Inhale via nebulizer . Use as directed. 1 Each 1 12/30/2021 Active Ipratropium-Albuter ol 0.5-2.5 (3) MG/3ML Inhalation Solution (Duoneb)Indications :COPD, group B, by GOLD 2017 classification ([facility]) Inhale via nebulizer 3 mL every 6 hours as needed for Wheezing. 360 mL 1 12/30/2021 Active metFORMIN HCl 1000 MG Oral Tablet (Glucophage) Take by mouth 1 Tablet 2 times a day with morning and evening meals . 180 Tablet 3 05/06/2022 Active Losartan Potassium 100 MG Oral Tablet (Cozaar) TAKE ONE TABLET BY MOUTH EVERY DAY 180 Tablet 3 06/17/2022 Active Triamcinolone Acetonide 0.1 % External Cream (Aristocort)Indicat ions:Psoriasis APPLY TO AFFECTED AREA TWICE DAILY. 120 g 3 07/14/2022 Active Repaglinide 1 MG Oral Tablet (Prandin)Indication s:Type 2 diabetes mellitus with hemoglobin A1c goal of less than 7.0% ([facility]),Diabetes mellitus with proteinuria ([facility]) Take 1 tablet by mouth before breakfast and before supper. 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 3 Each 3 08/07/2022 Active Additional Information Patient taking differently:1 Puff Inhalation BID(AM/PM),Hasn't started it yet, Reported on 08/12/2022 Spiriva Respimat 2.5 MCG/ACT Inhalation Aerosol Solution (Tiotropium [place] Monohydrate)Indicat ions:COPD, group B, by GOLD 2017 classification ([facility]) Inhale 2 Puffs by mouth in the morning. 12 g 3 08/07/2022 Active Additional Information Patient taking differently:2 Puff Inhalation Daily(AM),Hasn't started it yet, Reported on 08/12/2022 Breathe Comfort Humidifier Use as directed. Laryngectomy status. Use for humidification to Trach site 1 Each 2 08/12/2022 Active Pantoprazole Sodium 40 MG Oral Tablet Delayed Release (Protonix) TAKE ONE TABLET BY MOUTH EVERY DAY 90 Tablet 3 09/05/2022 Active Carvedilol 25 MG Oral Tablet (Coreg)Indications: HTN, goal below 140/90 Take 1 Tablet by mouth 2 times a day with morning and evening meals. 180 Tablet 3 09/04/2022 Active OneTouch Verio In Vitro Strip (Glucose Blood)Indications:T ype 2 diabetes mellitus with hemoglobin A1c goal of less than 7.0% ([facility]) Use to test blood sugar 4 times daily dx e11.9 400 Strip 3 09/07/2022 Active amLODIPine Besylate 10 MG Oral Tablet (Norvasc)Indication s:Essential hypertension with goal blood pressure less than 140/90 TAKE ONE TABLET BY MOUTH EVERY DAY 90 Tablet 3 09/16/2022 Active Cyclobenzaprine HCl 10 MG Oral Tablet (Flexeril)Indicatio ns:Spasm of muscle TAKE ONE TABLET BY MOUTH AT BEDTIME NEEDED FOR MUSCLE SPASMS 90 Tablet 3 09/16/2022 Active Vancomycin HCl 125 MG Oral Capsule [...] 10 MG Oral Tablet (Zetia)Indications: Mixed hyperlipidemia Take 1 Tablet by mouth in the morning. 90 Tablet 3 12/10/2022 Active documented as of this encounter (statuses as of 01/06/2023) Active Problems Problem Noted Date Pancreatic duct [...] as of this encounter (statuses as of 01/06/2023) Resolved Problems Problem Noted Date Resolved Date [...] as of this encounter (statuses as of 01/06/2023) Immunizations Name Administration Dates Next Due COVID-19 [...] as of this encounter Progress Notes * JYOTI Mcgowan - 01/06/2023 2:51 PM EDT See dictated note. JYOTI Mcgowan 01/06/2023 JYOTI Mcgowan 01/06/2023 2:58 PM documented in this encounter Plan of Treatment Upcoming Encounters Date Type Specialty Care Team Description 01/12/2023 Office Visit Optometry Ari Staley, [place], OD [address] [place] [address] 02/17/2023 Office Visit Orthopedics Javon Bunn, DO [address] [place] [address] 03/15/2023 Office Visit Endocrinology Nhung Monzon MD [address] [place] [address] 03/16/2023 Office Visit Pharmacy Pharmacist1, [facility] [address] [place] [address] 03/16/2023 Office Visit Dermatology Ling Capellan PA-C [address] [place] [address] 03/18/2023 Office Visit Internal Medicine Orlin Castro MD [address] [place] [address] 11/09/2023 Office Visit Otolaryngology Howard Montes De Oca, DO [address] [place] [address] 11/30/2023 Imaging Radiology Scheduled Procedures Name Priority Associated Diagnoses Date/Ti me COLONOSCOPY FLEXIBLE PROXIMAL DIAGNOSTIC Recall FAP (familial adenomatous polyposis) ESOPHAGOGASTRODUODENOSCOPY ( EGD), FLEXIBLE, TRANSORAL, DIAGNOSTIC Recall FAP (familial adenomatous polyposis) Health Maintenance Due Date Last Done Comments *COPD SEVERITY VERIFIED BY PFT 08/02/2019 DIABETES-EYE EXAM 01/09/2023 01/09/2022, , 01/09/2022, Additional history exists Depression Screening, Annual for Pts 12 and [...] IN PAST YEAR FOR COPD 01/02/2024 01/01/2023 DXA Scan 05/12/2026 05/12/2022 Lipid Panel 10/27/2027 [...] this encounter Medical Devices Implanted Type Area Boring Machine Operator Double End Device Identifier Shelf Expiration Date Model / Serial / Lot Stent 10fr 7cm - [id number] Implanted:Qty: 1 on 06/17/2010 at OR [facility] NAN : RADHA MON[place]NA 01/15/2013 [id number] / / [id number] Description:pancreas documented as of this encounter Visit Diagnoses Diagnosis Voice impairment Voice and resonance disorder, unspecified documented in this encounter Advance Directives [...] the patient have Health Care Power of Experimental Mechanic Electrical? No Care Teams Lens Generator Relationship Specialty Start Date End Date Orlin Castro MD [address] [facility] [place] [address] PCP - General Internal Medicine 04/27/19 documented as of this encounter
--- OUTSIDE RECORDS SUMMARY | 2023-06-17 09:57 | External Medical Summary | Summary of Care ---
Author Name Unknown Organization [facility] Address [address] [facility] [place] [address] Phone [phone] Care Team Providers Care Financial Business Analyst Name Role Phone Orlin Castro MD Primary Care Provider + Reason for Visit * Reason Comments Knee Pain Bilateral Encounter Details Date Type Department Care Team Description 02/17/2023 Office Visit Orthopaedics [facility] [address] [place] [address] Javon Bunn DO [address] [place] [address] Primary osteoarthritis of both knees* Allergies Active [...] 2017 classification ([facility]) Inhale via nebulizer . Use as directed. 1 Each 1 12/30/2021 Active Ipratropium-Albuter ol 0.5-2.5 (3) MG/3ML Inhalation Solution (Duoneb)Indications :COPD, group B, by GOLD 2017 classification ([facility]) Inhale via nebulizer 3 mL every [...] 180 Tablet 3 09/04/2022 4 Active Tiotropium [place] Monohydrate 2.5 MCG/ACT Inhalation Aerosol Solution (Spiriva Respimat)Indication s:COPD, group B, by GOLD 2017 classification ([facility]) INHALE 2 PUFFS BY MOUTH IN THE MORNING 12 g 3 08/07/2022 4 Active Additional Information Patient taking differently:2 Puff Inhalation Daily(AM),Hasn't started it yet, Reported on 08/12/2022 Beclomethasone Diprop HFA 80 MCG/ACT Inhalation Aerosol Breath Activated (Qvar RediHaler)Indicatio ns:COPD, group B, by GOLD 2017 classification ([facility]) INHALE 1 PUFF IN THE MORNING [...] than 7.0% ([facility]),Diabetes mellitus with proteinuria (HCC) TAKE ONE TABLET [...] than 7.0% ([facility]) Use to test blood glucose 4 [...] - 02/17/2023 8:30 AM EDT Mallory Soto [id number] INJECTION NOTE Mallory Soto is a 67 year old female who presents to [facility] for Bilateral knee. injections [...] Javon Bunn DO Primary Care Sports Medicine [facility] [address] [place] [address] Procedure note (knee injection), bilateral [...] Visit Endocrinology Nhung Monzon MD [address] [place] [address] 03/16/2023 Office Visit Pharmacy Pharmacist, [facility] [address] [place] [address] 03/16/2023 Office Visit [facility]ermatology Ling [facility]an [facility] [facility] [address] 03/18/2023 Office Visit Internal Medicine Orlin Castro MD 200 [place] [address] 05/24/2023 Office Visit Orthopedics Javon Bunn DO [address] [place] [address] 11/30/2023 Imaging Radiology 02/17/2024 Office Visit Optometry Ari Staley, [place], OD [address] [place] [address] Scheduled Orders Name Type Priority Associated Diagnoses [...] this encounter Medical Devices Implanted Type Area High School Science Teacher Device Identifier Shelf Expiration Date Model / Serial / Lot Stent 10fr 7cm - [id number] [place]ed:[place] 1 [place] [facility] [place] RADHA [place] 01/15/2013 [id number] / / [id number] Description:pancreas documented as of this encounter Visit [...] the patient have Health Care Power of Defence Force Senior Officer? No Care Teams Financial Business Analyst Relationship Specialty Start Date End Date Orlin Castro MD [address] [place] [id number] PCP - General Internal Medicine 04/27/19 documented as of this encounter
--- OUTSIDE RECORDS SUMMARY | 2023-06-17 09:57 | External Medical Summary | Summary of Care ---
Author Name Unknown Organization [facility] Address [address] [place] [address] Phone [phone] Care Team Providers Care Billing Machine Operator Name Role Phone Orlin Castro MD Primary Care Provider + Reason for Visit * Reason Onset Date Comments Medication Refill 01/25/2023 Encounter Details Date Type Department Care Team Description 01/25/2023 Refill Pharmacy, [facility] [address] [place] [address] Maximo Lion, [facility] [address] [place] [address] Type 2 diabetes mellitus with hemoglobin A1c goal of less than 7.0% ([facility])* Allergies Active Allergy Reactions Severity Noted Date Comments Zolpidem Tartrate Psych complications 6 Rosuvastatin 04/05/2020 Elevated lft Hydrochlorothiazide 12/29/2019 brenda Nsaids Other (Please comment) 04/14/2016 Gastric ulcer with anemia documented as of this encounter (statuses as of 01/25/2023) Medications Medication Sig Dispensed Refills Start Date [...] mouth daily. 90 Tab 3 1 Active ProjektinoTouch Verio Flex System w/Device Kit Use as [...] s:COPD, group B, by GOLD 2017 classification ([facility]) Inhale via nebulizer . Use as directed. 1 Each 1 2 Active Ipratropium-Albuter ol 0.5-2.5 (3) MG/3ML Inhalation Solution (Duoneb)Indications :COPD, group B, by GOLD 2017 classification ([facility]) Inhale via nebulizer 3 mL every [...] Tablet 3 3 09/04/19 24 Active Tiotropium [place] Monohydrate 2.5 MCG/ACT Inhalation Aerosol Solution (Spiriva Respimat)Indication s:COPD, group B, by GOLD 2017 classification ([facility]) INHALE 2 PUFFS BY MOUTH IN THE MORNING 12 g 3 3 08/07/19 24 Active Additional Information Patient taking differently:2 Puff Inhalation Daily(AM),Hasn't started it yet, Reported on 08/12/2022 Beclomethasone Diprop HFA 80 MCG/ACT Inhalation Aerosol Breath Activated (Qvar RediHaler)Indicatio ns:COPD, group B, by GOLD 2017 classification ([facility]) INHALE 1 PUFF IN THE MORNING [...] OR OTHER MEDICATIONS 90 Tablet 1 3 08/07/19 24 Active Clobetasol Propionate 0.05 % External Ointment [...] WITH NIGHTTIME SNACK. 225 Tablet 3 3 07/20/19 24 Active Triamcinolone Acetonide 0.1 % External [...] DX: E11.9 400 Strip 3 3 Active Glucose Blood In Vitro StripIndications:Ty pe 2 diabetes mellitus with hemoglobin A1c goal of less than 7.0% (HCC) USE TO TEST BLOOD SUGAR 4 TIMES DAILY 400 Strip 3 3 01/26/20 23 Discontinu ed(Formula ry/Cost) documented as of this encounter (statuses as of 01/25/2023) Active Problems Problem Noted Date Pancreatic duct [...] as of this encounter (statuses as of 01/25/2023) Resolved Problems Problem Noted Date Resolved Date [...] as of this encounter (statuses as of 01/25/2023) Immunizations Name Administration Dates Next Due COVID-19 [...] Description 02/17/2023 Office Visit Orthopedics Javon Bunn, [address] [place] [address] 03/15/2023 Office Visit [facility]in[facility] [address] [facility] [address] 03/16/2023 Office Visit Pharmacy Pharmacist, [facility] [address] [place] [address] 03/16/2023 Office Visit Dermatology Ling Capellan PA-C [address] [place] [address] 03/18/2023 Office Visit Internal Medicine Orlin Castro MD [address] [place] [address] 11/30/2023 Imaging Radiology 02/17/2024 Office Visit Optometry Ari Staley, [place], OD [address] [place] [address] Scheduled Procedures Name Priority Associated Diagnoses Date/Ti [...] this encounter Medical Devices Implanted Type Area Collar Worker Device Identifier Shelf Expiration Date Model / Serial / Lot Stent 10fr 7cm - [id number] Implanted:Qty: 1 on 06/17/2010 at [place] [facility] [place] NAN : RADHA MONTANA 01/15/2013 [id number] / / [id number] Description:pancreas documented as of this encounter Visit Diagnoses Diagnosis Type 2 diabetes mellitus with hemoglobin A1c goal of less than 7.0% (HCC)- Primary documented in this encounter Advance Directives Latest [...] the patient have Health Care Power of Tube Builder Airplane? No Care Teams Billing Machine Operator Relationship Specialty Start Date End Date Orlin Castro MD [address] [place] [address] PCP - General Internal Medicine 04/27/19 documented as of this encounter
--- OUTSIDE RECORDS SUMMARY | 2023-06-17 09:57 | External Medical Summary | Summary of Care ---
Author Name Unknown Organization [facility] Address [address] [facility] [place] [address] Phone [phone] Care Team Providers Care Garment Cutter Name Role Phone Orlin Castro MD Primary Care Provider + Reason for Visit * Reason Onset Date Comments Medication Refill 01/15/2023 Encounter Details Date Type Department Care Team Description 01/15/2023 Refill Pharmacy, [facility] [address] [place] [address] Pharmacist1, [facility] Gabriele Hawley [address] [place] [address] [address] Type 2 diabetes mellitus with hemoglobin A1c goal of less than 7.0% ([facility]) Allergies Active Allergy Reactions Severity Noted Date Comments Zolpidem Tartrate Psych complications 6 Rosuvastatin 04/05/2020 Elevated lft Hydrochlorothiazide 12/29/2019 brenda Nsaids Other (Please comment) 04/14/2016 Gastric ulcer with anemia documented as of this encounter (statuses as of 01/18/2023) Medications Medication Sig Dispensed Refills Start Date [...] mouth daily. 90 Tab 3 1 Active Yeeply Mobileuch Verio Flex System w/Device Kit Use as [...] Tablet 3 3 09/04/19 24 Active Tiotropium [place] Monohydrate 2.5 MCG/ACT Inhalation Aerosol Solution (Spiriva Respimat)Indication s:COPD, group B, by GOLD 2017 classification ([facility]) INHALE 2 PUFFS BY MOUTH IN THE MORNING 12 g 3 3 08/07/19 24 Active Additional Information Patient taking differently:2 Puff Inhalation Daily(AM),Hasn't started it yet, Reported on 08/12/2022 Beclomethasone Diprop HFA 80 MCG/ACT Inhalation Aerosol Breath Activated (Qvar RediHaler)Indicatio ns:COPD, group B, by GOLD 2017 classification ([facility]) INHALE 1 PUFF IN THE MORNING AND [...] 180 Tablet 3 2 05/06/20 23 Active Glucose Blood In Vitro StripIndications:Ty pe 2 diabetes mellitus with hemoglobin A1c goal of less than 7.0% (HCC) USE TO TEST BLOOD SUGAR 4 TIMES DAILY 400 Strip 3 3 Active Glucose Blood In Vitro StripIndications:Ty pe 2 diabetes mellitus with hemoglobin A1c goal of less than 7.0% (HCC) USE TO TEST BLOOD SUGAR 4 TIMES DAILY 400 Strip 3 3 01/16/20 23 Discontinu ed(Refill) documented as of this encounter (statuses as of 01/18/2023) Active Problems Problem Noted Date Pancreatic duct [...] as of this encounter (statuses as of 01/18/2023) Resolved Problems Problem Noted Date Resolved Date [...] as of this encounter (statuses as of 01/18/2023) Immunizations Name Administration Dates Next Due COVID-19 [...] encounter Miscellaneous Notes * Telephone Encounter - Tony Parker RP - 01/18/2023 12:26 PM EDT Signed Prescriptions: Disp Refills Glucose Blood In Vitro Strip 400 St*3 Sig: USE TO TEST BLOOD SUGAR 4 TIMES DAILY Authorizing Provider: ORLIN CASTRO Ordering User: TONY PARKER * Telephone Encounter - KEVIN Lord - 01/15/2023 2:58 PM EDT Did you pend patient's preferred pharmacy and medication before forwarding?yes Pharmacy: [facility] Pending Prescriptions: Disp Refills Glucose Blood In Vitro Strip 400 St*3 Sig: USE TO TEST BLOOD SUGAR 4 TIMES DAILY Last Visit: Visit date not found (in office), Visit date not found (telemedicine) Next Visit: Visit date not found If no future appointments scheduled, and last appointment is greater than a year ago, please schedule patient for a follow-up appointment Last date the medication was ordered: 09/07/22 Is this request for a controlled substance?No Urine Drug Screen:No results found. However, due to the size of the patient record, not all encounters were searched. Please check Results Review for a complete set of results. Patient Phone Numbers Labs: Lab Results Component Value Date/Time CREAT 0.9 05/14/2022 12:16 PM CREAT 1.2 (H) 05/01/2020 10:54 AM POTASSIUM 4.1 05/14/2022 12:16 PM POTASSIUM 4.3 05/01/2020 10:54 AM TSH 2.19 05/14/2022 12:16 PM TSH 4.84 (H) 07/24/2020 10:20 AM LDLCALC 95 10/26/2022 12:28 PM LDLCALC 57 07/24/2020 10:20 AM LDLDIRECT NOT APPLICABLE 07/24/2020 10:20 AM LDLDIRECT 86 12/09/2018 08:53 AM ALT 59 (H) 10/26/2022 12:28 PM ALT 20 07/24/2020 10:20 AM HGBA1C 7.6 (H) 12/10/2022 10:13 AM HGBA1C 6.8 (H) 07/24/2020 10:20 AM documented in this encounter Plan of Treatment Upcoming Encounters Date Type Specialty Care Team Description 02/17/2023 Office Visit Orthopedics Javon Bunn, DO [address] [place] [address] 03/15/2023 Office Visit Endocrinology Nhung Monzon MD [address] [place] [address] 03/16/2023 Office Visit Pharmacy Pharmacist1, [facility] [address] [place] [address] 03/16/2023 Office Visit Dermatology Ling Capellan PA-C [address] [place] [address] 03/18/2023 [facility] [address] [place] [address] 11/30/2023 Imaging Radiology 02/17/2024 Office Visit Optometry Ari Staley, [place], OD [address] [place] [address] Scheduled Procedures Name Priority Associated [...] 03/06/2022, Additional history exists GFR 05/14/2023 05/14/2022, 0 08/2021, 10/13/2021, Additional history exists TSH 05/14/2023 05/14/2022, 0 08/2021, 05/10/2021, Additional history exists HbA1c 06/11/2023 12/10/2022, 030 12/2022, 05/14/2022, Additional history exists DIABETES-FOOT EXAM 08/07/2023 08/07/2022, 0 08/21/2021, 10/22/2020, Additional history exists Mammogram 09/12/2023 09/11/2022, 0303/2022, 09/09/2020, Additional history exists COLONOSCOPY-ANNUAL AGES 18-100 12/18/2023 12/17/2022, 04/29/2021, 10/15/2020, Additional history exists O2 ASSESSMENT COMPLETED IN PAST YEAR FOR COPD 01/02/2024 01/01/2023 DIABETES-EYE EXAM 01/13/2024 01/12/2023, , 01/12/2023, Additional history exists DXA Scan 05/12/2026 05/12/2022 Lipid Panel 10/27/2027 10/26/2022, 09/08/2021, 05/10/2021, Additional history exists DTaP,Tdap,and Td Vaccines [...] this encounter Medical Devices Implanted Type Area Chlorine Cell Tender Device Identifier Shelf Expiration Date Model / Serial / Lot Stent 10fr 7cm - [id number] [place] [facility] [place] RADHA [place] 01/15/2013 [id number] / / [id number] Description:pancreas documented as of this encounter Visit Diagnoses Diagnosis Type 2 diabetes mellitus with hemoglobin A1c goal of less than 7.0% (HCC) documented in this encounter Advance Directives [...] patient have Health Care Power of Licensed Land Surveyor? No Care Teams Garment Cutter Relationship Specialty Start Date End Date Orlin Castro MD [address] [place] [address] PCP - General Internal Medicine 04/27/19 documented as of this encounter
--- OUTSIDE RECORDS SUMMARY | 2023-06-17 09:57 | External Medical Summary | Summary of Care ---
Author Name Unknown Organization [facility] Address [address] [facility] [place] [address] Phone [phone] Care Team Providers Care Cyber Security Architect Name Role Phone Orlin Ramos MD Primary Care Provider + Reason for Visit * Reason Comments Medication Refill Encounter Details Date Type Department Care Team Description 02/07/2023 Refill General Internal Medicine [facility] [address] [place] [address] Orlin Ramos MD 200 [facility] [place] [id number] Postsurgical hypothyroidism Allergies Active Allergy Reactions Severity Noted Date Comments Zolpidem Tartrate Psych complications 6 Rosuvastatin 04/05/2020 Elevated lft Hydrochlorothiazide 12/29/2019 brenda Nsaids Other (Please comment) 04/14/2016 Gastric ulcer with anemia documented as of this encounter (statuses as of 02/08/2023) Medications Medication Sig Dispensed Refills Start Date [...] Tablet 3 3 09/04/19 24 Active Tiotropium [place] Monohydrate 2.5 MCG/ACT Inhalation Aerosol Solution (Spiriva [...] goal of less than 7.0% ([facility]),Diabetes mellitus with proteinuria ([facility]) TAKE ONE TABLET BY MOUTH BEFORE BREAKFAST [...] goal of less than 7.0% ([facility]) Use to test blood glucose 4 times daily. DX: E11.9 400 Strip 3 3 Active Levothyroxine Sodium 200 MCG Oral Tablet (Levoxyl)Indication s:Postsurgical hypothyroidism TAKE 1 TABLET BY MOUTH DAILY AT LEAST 30 MINUTES PRIOR TO FIRST MEAL OF THE DAY OR OTHER MEDICATIONS 90 Tablet 1 3 Active Levothyroxine Sodium 200 MCG Oral Tablet (Levoxyl)Indication s:Postsurgical hypothyroidism TAKE 1 TABLET BY MOUTH DAILY AT LEAST 30 MINUTES PRIOR TO FIRST MEAL OF THE DAY OR OTHER MEDICATIONS 90 Tablet 1 3 02/08/20 23 Discontinu ed(Refill) documented as of this encounter (statuses as of 02/08/2023) Active Problems Problem Noted Date Pancreatic duct [...] as of this encounter (statuses as of 02/08/2023) Resolved Problems Problem Noted Date Resolved Date [...] as of this encounter (statuses as of 02/08/2023) Immunizations Name Administration Dates Next Due COVID-19 [...] encounter Miscellaneous Notes * Telephone Encounter - Beth Granados davis - 02/08/2023 12:02 PM EDTSigned Prescriptions: Disp Refills Levothyroxine Sodium 200 MCG Oral Tablet (*90 Tab*1 Sig: TAKE 1 TABLET BY MOUTH DAILY AT LEAST 30 MINUTES PRIOR TO FIRST MEAL OF THE DAY OR OTHER MEDICATIONSAuthorizing Provider: ORLIN RAMOS User: BETH GRANADOS documented in this encounter Plan of Treatment Upcoming Encounters Date Type Specialty Care Team Description 02/17/2023 Office Visit Orthopedics Javon Bunn, DO [address] [facility] [place] [address] 03/15/2023 Office Visit Endocrinology Nhung Monzon MD [address] [place] [address] 03/16/2023 Office Visit Pharmacy Pharmacist1, [facility] [address] [place] [address] 03/16/2023 Office Visit Dermatology Ling Capellan PA-C [address] [facility] [place] [address] 03/18/2023 Office Visit Internal Medicine Orlin Ramos MD [address] [place], [place] [id number] 11/30/2023 Imaging Radiology 02/17/2024 Office Visit Optometry Ari Staley, [place], OD [address] [place] [address] Scheduled Procedures Name Priority Associated [...] this encounter Medical Devices Implanted Type Area Senior Program Manager Device Identifier Shelf Expiration Date Model / Serial / Lot Stent 10fr 7cm - [id number] Implanted:Qty: 1 on 06/17/2010 [place] [facility] [place] RADHA [place] 01/15/2013 [id number] / / [id number] Description:pancreas documented as of this encounter Visit Diagnoses Diagnosis Postsurgical hypothyroidism documented in this encounter Advance Directives Latest [...] the patient have Health Care Power of Relocation Director? No Care Teams Cyber Security Architect Relationship Specialty Start Date End Date Orlin Ramos MD [facility] [place] [address] PCP - General Internal Medicine 04/27/19 documented as of this encounter
--- OUTSIDE RECORDS SUMMARY | 2023-06-17 09:58 | External Medical Summary | Summary of Care ---
Author Name Unknown Organization [facility] Address [address] [facility] [place] [address] Phone [phone] Care Team Providers Care Art Educator Name Role Phone Orlin Castro MD Primary Care Provider + Reason for Visit * Reason Comments Follow Up Return after scopes, Fm hx of FAP, hx of whipple, dilation of pancreatic duct. Encounter Details Date Type Department Care Team Description 01/01/2023 Office Visit Gastroenterology, [facility] [address] [place] [address] Raymond Campbell MD [address] [place] [address] FAP (familial adenomatous polyposis)*; Family history of familial adenomatous polyposis; Elevated LFTs; Dilation of pancreatic duct Allergies Active Allergy Reactions Severity Noted Date Comments Zolpidem Tartrate Psych complications 6 Rosuvastatin 04/05/2020 Elevated lft Hydrochlorothiazide 12/29/2019 brenda Nsaids Other (Please comment) 04/14/2016 Gastric ulcer with anemia documented as of this encounter (statuses as of 01/01/2023) Medications Medication Sig Dispensed Refills Start Date [...] with proteinuria ([facility]) Take 1 tablet by mouth before breakfast [...] MCG/ACT Inhalation Aerosol Breath Activated (Beclomethasone Diprop HFA)Indications: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 3 Each 3 08/07/2022 Active Additional Information Patient taking differently:1 Puff Inhalation BID(AM/PM),Hasn't started it yet, Reported on 08/12/2022 Spiriva Respimat 2.5 MCG/ACT Inhalation Aerosol Solution (Tiotropium [place] Monohydrate)Indicat ions:COPD, group B, by GOLD 2017 classification ([facility]) Inhale 2 Puffs by mouth in the [...] [facility]) Use to test blood sugar 4 times [...] the morning. 90 Tablet 3 12/10/2022 Active Hospital, Clinic, or Other Facility Administered Medication Ordered Dose Route Frequency Start Date End Date Status Albuterol Sulfate (Proventil) (2.5 MG/3ML) 0.083% inhalation solution 2.5 mgIndications:COPD, group B, by GOLD 2017 classification (HCC) 2.5 mg NEBULIZER PRN 01/06/2022 01/06/2023 Acti ve documented as of this encounter (statuses as of 01/01/2023) Active Problems Problem Noted Date Pancreatic duct [...] as of this encounter (statuses as of 01/01/2023) Resolved Problems Problem Noted Date Resolved Date [...] as of this encounter (statuses as of 01/01/2023) Immunizations Name Administration Dates Next Due COVID-19 [...] Sign Reading Time Taken Comments Blood Pressure - - Pulse 64 01/01/2023 9:38 AM EDT Temperature 36.3 C (97.4 F) 01/01/2023 9:38 AM ED T Respiratory Rate - - Oxygen Saturation 98% 01/01/2023 9:38 AM EDT Inhaled Oxygen Concentration - - Weight 82.7 kg (182 lb 6.4 oz) 01/01/2023 9:38 A M EDT Height - - Body Mass Index 31.31 12/11/2022 8:53 AM EDT documented in this encounter Functional [...] as of this encounter Progress Notes * Raymond Campbell MD - 01/01/2023 9:39 AM EDT History of Present Illness: I Ihad the pleasure of seeing Mallory Soto today as a follow up. 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 She also has a history of head neck cancer status post total laryngectomy with placement of a trach,who is referred here today for elevated LFTs. LFTs are below, but she has had an increasing/decreasing LFTs that seem to be worst in 2020 which time her ALT peaked to 239, most recently is 59 with a normal AST and an elevated alkaline phosphatase most recently 146 Most recent MRI which time reviewed today that does show what appears to be her residual body/tail of her pancreas with dilation up to 6 mm. A very truncated bile duct. No evidence of biliary obstruction. In regards to her GI tract, she currently he is asymptomatic, has no nausea vomiting or abdominal pain, she has no history or issues that would suggest biliary obstruction or liver decompensation. She does not consume alcohol, and she does not take chronic Tylenol and no recent medication changes that she is aware of, After last visit she underwent endoscopic ultrasound that showed a pancreatic duct stone, a very mild non alarming adrenal lesion. Biopsy of her liver showed steatosis withoutfibrosis. Recent EGD and colonoscopy were remarkable only for a few small adenomas in the pouch with some lymphoid hyperplasia, she denies any nausea vomiting abdominal pain today. Latest Reference Range & Units 10/21/21 11:06 03/06/22 09:49 07/21/22 14:37 10/26/22 12:28 Albumin 3.8 - 5.0 g/dL 4.1 4.5 4.1 4.2 AST 10 - 35 U/L 17 24 28 25 ALT 10 - 35 U/L 25 25 32 59 (H) Alkaline Phosphatase 35 - 130 U/L 107 126 163 (H) 146 (H) Bilirubin, Total <=1.2 mg/dL 0.2 0.2 0.3 0.5 Bilirubin, Direct 0.0 - 0.3 mg/dL <0.2 <0.2 <0.2 GGTP <=40 U/L 51 (H) 108 (H) (H): Data is abnormally high Pathology Liver Bx: A. Liver, left lobe, core needle biopsies: Moderate steatosis involving 40% of hepatocytes with focal lobular inflammation and mild hepatocyte ballooning seen (ANN MARIE 4/8) Lizbeth-central vein subsinusoidal fibrosis (Brunt fibrosis stage 1A/4) Comment: Overall, the histopathologic changes are most consistent with steatohepatitis. Steatohepatitis is a nonspecific pattern of injury most commonly seen in morbid obesity, diabetes, insulin resistance, and alcohol abuse. It may also be associated with nutritional causes, adverse drug exposure, and metabolic disease Patient Active Problem List Diagnosis Code Insomnia G47.00 Postsurgical hypothyroidism E89.0 Tracheostomy status ([facility]) Z93.0 Mitral valve regurgitation I34.0 History of thyroid cancer Z85.850 Type 2 diabetes mellitus with hemoglobin A1c goal of less than 7.0% ([facility]) E11.9 Hypertension goal BP (blood pressure) < 140/90 I10 History of pancreatic cancer Z85.07 Family history of familial adenomatous polyposis Z83.71 Gastroesophageal reflux disease without esophagitis K21.9 Mixed hyperlipidemia E78.2 COPD, group B, by GOLD 2017 classification ([facility]) J44.9 Obesity, Class I, BMI 30.0-34.9 (see actual BMI) E66.9 Diabetes mellitus with proteinuria ([facility]) E11.29, R80.9 Psoriasis L40.9 Pancreatic duct dilated K86.89 Adrenal nodule ([facility]) E27.8 Current Outpatient Medications Medication Sig Dispense Refill ferrous sulfate (FEOSOL) 325 (65 FE) MG Tablet TAKE ONE TABLET THREE TIMES DAILY 270 Tab 3 ONETOUCH DELICA LANCETS FINE MISC Use to test blood sugar 4 times daily dx e11.9 400 Each 3 Misc. Devices [facility] Tracheostomy Care Kit #4601 1 Each 0 [...] Inhalation Solution (Duoneb) Inhale via nebulizer 3 mLevery 6 hours as needed for Wheezing. 360 mL 1 metFORMIN HCl 1000 MG Oral Tablet (Glucophage) Take by mouth 1 Tablet 2 times a day with morning and evening meals . 180 Tablet 3 Losartan Potassium 100 MG Oral Tablet (Cozaar) TAKE ONE TABLET BY MOUTH EVERY DAY 180 Tablet 3 Triamcinolone Acetonide 0.1 % External Cream (Aristocort) APPLY TO AFFECTED AREA TWICE DAILY. 120 g 3 Repaglinide 1 MG Oral Tablet (Prandin) Take 1 tablet by mouth before breakfast and before supper. Also take 1/2 tab with nighttime snack 225 Tablet 3 Clobetasol Propionate 0.05 % External Ointment (Temovate) Apply to affected areas on arms and feet twice daily as needed for flares 60 g 5 Levothyroxine Sodium 200 MCG Oral Tablet (Levoxyl) TAKE 1 TABLET BY MOUTH DAILY AT LEAST 30 MINUTES PRIOR TO FIRST MEAL OF THE DAY OR OTHER MEDICATIONS 90 Tablet 1 Qvar RediHaler 80 MCG/ACT Inhalation Aerosol Breath Activated (Beclomethasone Diprop HFA) Inhale 1 Puff by mouth in the morning and 1 Puff before bedtime. (Patient taking differently: Inhale 1 Puff by mouth in the morning and 1 Puff before bedtime. Hasn't started it yet.) 3 Each 3 Spiriva Respimat 2.5 MCG/ACT Inhalation Aerosol Solution (Tiotropium [place] Monohydrate) Inhale 2 Puffs by mouth in the morning. (Patient taking differently: Inhale 2 Puffs by mouth in the morning. Hasn't started it yet.) 12 g 3 Breathe Comfort Humidifier Use as directed. Laryngectomy status. Use for humidification to Trach site 1 Each 2 Pantoprazole Sodium 40 MG Oral Tablet Delayed Release (Protonix) TAKE ONE TABLET BY MOUTH EVERYDAY 90 Tablet 3 Carvedilol 25 MG Oral Tablet (Coreg) Take 1 Tablet by mouth 2 times a day with morning and evening meals. 180 Tablet 3 OneTouch Verio In Vitro Strip (Glucose Blood) Use to test blood sugar 4 times daily dx e11.9 400 Strip 3 amLODIPine Besylate 10 MG Oral Tablet (Norvasc) TAKE ONE TABLET BY MOUTH EVERY DAY 90 Tablet 3 Cyclobenzaprine HCl 10 MG Oral Tablet (Flexeril) TAKE ONE TABLET BY MOUTH AT BEDTIME NEEDED FOR MUSCLE SPASMS 90 Tablet 3 Vancomycin HCl 125 MG Oral Capsule (Vancocin) Take 1 Capsule by mouth every 6 hours. 40 Capsule0 Sodium Chloride 7 % Inhalation Nebulization Solution (Hyper-Allen) 4 ML VIA NEBULIZER TWICE DAILYFOR RESP. FOR 1 WEEK ONLY USE FOR 1 WEEK Formoterol Fumarate 20 MCG/2ML Inhalation Nebulization Solution Budesonide 0.25 MG/2ML Inhalation Suspension (Pulmicort) 0.25 mg. Ezetimibe 10 MG Oral Tablet (Zetia) Take 1 Tablet by mouth in the morning. 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 FAP---[facility] grew[facility] Family history of familial adenomatous polyposis 03/10/2019 [...] childhood Malignant neoplasm of thyroid gland (HCC) 2006 removed [facility] Malignant neoplasm of thyroid gland [...] Dr Allen & Dr ESCOBEDO at [place] [facility] ANESTH, UPPER GI ENDOSCOPIC PROCS 08/18/2010 ANESTHESIA FOR UPPER GI ENDOSCOPIC PROCEDURES (ERCP OR UPPER GI) performed by ALICIA MATHEWS at [facility]OSCOPY [facility] BREAST BIOPSY Left Benign BREAST BIOPSY Left Benign BREAST BIOPSY Left Benign COLONOSCOPY, DIAGNOSTIC (RECTUM) 09/10/2011 COLONOSCOPY FLEXIBLE PROXIMAL DIAGNOSTIC performed by ALICIA MATHEWS at [facility] COLONOSCOPY, DIAGNOSTIC (RECTUM) 01/13/2012 COLONOSCOPY FLEXIBLE PROXIMAL DIAGNOSTIC performed by Alicia Mathews DO at ENDOSCOPY [facility] COLONOSCOPY, DIAGNOSTIC (RECTUM) 07/21/2012 COLONOSCOPY FLEXIBLE PROXIMAL DIAGNOSTIC performed by Alicia Mathews DO at ENDOSCOPY [facility] COLONOSCOPY, DIAGNOSTIC (RECTUM) 01/13/2013 COLONOSCOPY FLEXIBLE PROXIMAL DIAGNOSTIC performed by Alicia Mathews DO at ENDOSCOPY [facility] COLONOSCOPY, DIAGNOSTIC (RECTUM) 01/19/2014 COLONOSCOPY FLEXIBLE PROXIMAL DIAGNOSTIC performed by Alicia Mathews DO at ENDOSCOPY [facility] COLONOSCOPY, DIAGNOSTIC (RECTUM) N/A 09/27/2014 COLONOSCOPY FLEXIBLE PROXIMAL DIAGNOSTIC performed by Alicia Mathews DO at ENDOSCOPY [facility] COLONOSCOPY, DIAGNOSTIC (RECTUM) N/A 03/15/2015 COLONOSCOPY FLEXIBLE PROXIMAL DIAGNOSTIC performed by Alicia Mathews DO at [facility] COLONOSCOPY, DIAGNOSTIC (RECTUM) N/A 06/13/2015 COLONOSCOPY FLEXIBLE PROXIMAL DIAGNOSTIC performed by Alicia Mathews DO at ENDOSCOPY [facility] COLONOSCOPY, DIAGNOSTIC (RECTUM) 04/08/2016 normal/inpt [facility] COLONOSCOPY, DIAGNOSTIC (RECTUM) 07/02/2017 COLONOSCOPY FLEXIBLE PROXIMAL DIAGNOSTIC performed by Alicia Mathews DO at [facility] COLONOSCOPY, DIAGNOSTIC (RECTUM) N/A 08/30/2018 COLONOSCOPY FLEXIBLE PROXIMAL DIAGNOSTIC performed by Alicia Mathews DO at [facility]OS[facility] COLONOSCOPY, DIAGNOSTIC (RECTUM) 12/03/2021 benign adenomatous polyps, repeat 1 yr / [facility] EGD, FLEXIBLE, DIAGNOSTIC 09/10/2011 UPPER GI ENDOSCOPY DIAGNOSTIC performed by ALICIA MATHEWS at [facility]OSCOPY [facility] EGD, FLEXIBLE, DIAGNOSTIC 07/21/2012 UPPER GI ENDOSCOPY DIAGNOSTIC performed by Alicia Mathews DO at [facility]COPY [facility] EGD, FLEXIBLE, DIAGNOSTIC N/A 05/14/2016 ESOPHAGOGASTRODUODENOSCOPY (EGD), FLEXIBLE, TRANSORAL, DIAGNOSTIC performed by Alicia Mathews DO at [facility] EGD, FLEXIBLE, DIAGNOSTIC 04/08/2016 anastamotic ulcer/inpt [facility] EGD, FLEXIBLE, DIAGNOSTIC N/A 07/02/2017 ESOPHAGOGASTRODUODENOSCOPY (EGD), FLEXIBLE, TRANSORAL, DIAGNOSTIC performed by Alicia Mathews DO at [facility] EGD, FLEXIBLE, DIAGNOSTIC N/A 08/30/2018 ESOPHAGOGASTRODUODENOSCOPY (EGD), FLEXIBLE, TRANSORAL, DIAGNOSTIC performed by Alicia Mathews DO at [facility] EGD, FLEXIBLE, DIAGNOSTIC 12/03/2021 normal, repeat 1 yr / [facility] EGD, W/ENDOSCOPIC US 08/11/2012 UPPER GI ENDOSCOPY ENDOSCOPIC ULTRASOUND performed by Garcia Casey MD at [facility]OS[facility] EGD, W/ENDOSCOPIC US 11/04/2012 UPPER GI ENDOSCOPY ENDOSCOPIC ULTRASOUND performed by Garcia Casey MD at [facility]OSCOPY [facility] EGD, W/ENDOSCOPIC US N/A 05/08/2021 ESOPHAGOGASTRODUODENOSCOPY (EGD), FLEXIBLE, TRANSORAL, ENDOSCOPIC ULTRASOUND performed by Jane Gutierrez MD at [facility]OSCOPY [facility] ERCP, DIAGNOSTIC, SPECIMEN COLLECTION 09/14/2012 ENDOSCOPIC RETROGRADE CHOLANGIOPANCREATOGRAPHY DIAGNOSTIC performed by Garcia Casey MD at [facility]COPY [facility] ERCP, DIAGNOSTIC, SPECIMEN COLLECTION 11/04/2012 ENDOSCOPIC RETROGRADE CHOLANGIOPANCREATOGRAPHY DIAGNOSTIC performed by Garcia Casey MD at [facility]OSCOPY [facility] MAINE FLEX SIGMOID DIAGNOSITIC N/A 09/18/2019 SIGMOIDOSCOPY FLEXIBLE DIAGNOSTIC performed by Alicia Mathews DO at [facility]OS[facility] MUSCLE/FASCIA DEBRIDEMENT, FIRST 20 CM2 N/A 11/29/2020 DEBRIDEMENT SKIN SUBCUTANEOUS TISSUE AND MUSCLE performed by Howard Montes De Oca DO at [place] [facility] OTHER 2006 tracheostomy & laryngectomy REMOVAL OF COLON/ILEOSTOMY 1976 x3 REMOVAL OF THYROID GLAND 2006 Thyroidectomy REMOVE PANCREAS, PARTIAL ([place]) 06/17/2010 PANCREATECTOMY PROXIMAL WITH TOTAL DUODENECTOMY, Dr CIFUENTES REMOVE PANCREAS, PARTIAL ([place]) 12/02/2012 12/02/2012 PANCREATECTOMY PROXIMAL WITH SUBTOTAL DUODENECTOMY performed by Julio C Cifuentes MD at [facility] REPAIR INITIAL INCISIONAL OR VENTRAL HERNIA; REDUCIBLE 12/15/2021 done at [facility] by Dr Aayush Estrella REPAIR WINDP[place] OPENING, COMPLEX 06/02/2021 TRACHEOSTOMA REVISION WITH FLAP performed by Howard Montes De Oca DO at [place] [facility] REPAIR WINDPIPE OPENING, SIMPLE N/A 08/07/2015 TRACHEOSTOMA REVISION SIMPLE performed by Howard Montes De Oca DO at OR [facility] REPAIR [place]DP[place] OPENING, SIMPLE Bilateral 11/29/2020 TRACHEOSTOMA REVISION SIMPLE performed by Howard Montes De Oca DO at [place] [facility] SIGMOIDOSCOPY, DIAGNOSTIC N/A 10/15/2020 SIGMOIDOSCOPY FLEXIBLE DIAGNOSTIC performed by Alicia Mathews DO at [facility] SIGMOIDOSCOPY, DIAGNOSTIC N/A 04/29/2021 SIGMOIDOSCOPY FLEXIBLE DIAGNOSTIC performed by Monae Batista DO at [facility]OS[facility] US GUIDED BREAST BIOPSY RIGHT Right Benign Social History Social History Narrative 1 dog in her home. No mold. Family History Problem Relation Age of Onset Colon cancer Father Colon polyps Father Colon cancer Sister Colon polyps Sister No Known Problems Sister No Known Problems Sister No Known Problems Brother No Known Problems Brother Thyroid Disorder No significant family history Review of patient's allergies indicates: Allergen Reactions Ambien [Zolpidem Tartrate] Psych complications Crestor [Rosuvastatin] Elevated lft Hctz [Hydrochlorothiazide] brenda Nsaids Other (Please comment) Gastric ulcer with anemia Review of Systems: Constitutional ROS: No change in weight, No weakness, No fatigue and No fevers, sweats, or chills Eye ROS: No recent significant change in vision, No eye pain, redness, discharge, No diplopia, No h/o cataracts and No h/o glaucoma Pulmonary ROS: No cough, sputum, or hemoptysis, No wheezing, No shortness of breath and No recent change in breathing Cardiovascular ROS: No chest pain, No shortness of breath, No dyspnea on exertion, No orthopnea, Noparoxysmal nocturnal dyspnea, No edema, No palpitations and No syncope Gastrointestinal ROS: As per the HPI Musculoskeletal/Extremities ROS: No pain, redness or swelling on the joints Hematologic/Lymphatic ROS: No coagulation disorder, No anemia, No abnormal bleeding, No chills, No bruising, No HIV risk factors, No night sweats, No swollen nodes, No weight loss and No history of transfusion Skin/Integumentary ROS: No edema, No rash and No itching Neurologic ROS: Normal balance, No headaches, No seizures and No weakness Psychiatric ROS: No depression, No anxiety and No psychosis All other systems reviewed and negative OBJECTIVE: Physical Exam: Pulse 64 | Temp 36.3 C (97.4 F) | Wt 82.7 kg (182 lb 6.4 oz) | SpO2 98% | BMI 31.31 kg/m | BSA 1.93 m General: alert, healthy, no distress Head: Normocephalic Eye Exam: PERRLA, EOMI, Conjunctiva are pink and non-injected, sclera clear Ears: External ears normal Heart: regular rate & rhythm, no murmurs and no gallops Lungs: clear to auscultation Abdomen: abdomen soft, non-tender, normal bowel sounds and no masses or organomegaly Extremities: no edema, no clubbing, no cyanosis Neuro Exam: alert & oriented x 3 with fluent speech, no focal motor/sensory deficits Impression: 67 year old female presentingfor evaluation of elevated LFTsdue to VO as well as History of FAP s/p total colectomy 1. Elevated LFT's -no evidence of cirrhosis on liver biopsy:I have encouraged exercise and continue monitoring of LFTs, isolated AP elevations now with high GGT, possibly due to biliary issues related to post whipple -dilated pancreatic duct with pancreatic stone as well as lfts: - Follow-up MRI This year without alarm findingsno repeat necessary - LFTs once yearly by PCP 2. Familial adenomatous polyposis: - Repeat EGD colonoscopy in 2023 - Discussed pathology results with her today I sincerely thank you for the referral and allowing me to be involved with the gastrointestinal health of your patient. Please do not hesitate to contact me with any questions, concerns, errors, or omissions. Sincerely, Raymond Campbell MD Division of Gastroenterology [facility] This chart was completed in part utilizing [employer] Speech Voice Recognition Software. Grammatical errors, random word insertions, prounoun errors, and incomplete sentences are an occasional consequence of this system due to software limitations, ambient noise, and hardware issues. Any formal questions or concerns about the content, text, or information contained within the body of this dictation should be directly addressed to the provider for clarification. documented in this encounter Nursing Notes * Janet Lewis LPN - 01/01/2023 9:41 AM EDT Patient identified by name and date of . Chief Complaint Patient presents with Follow Up Return after scopes, Fm hx of FAP, hx of whipple, dilation of pancreatic duct. documented in this encounter Plan of Treatment Upcoming Encounters Date Type Specialty Care Team Description 01/06/2023 Rehab Services Otolaryngology Toño Baker, [facility] HELPER [address] [place] [address] 01/12/2023 Office Visit Optometry Ari Staley, [place], OD [address] [place] [address] 02/17/2023 Office Visit Orthopedics Javon Bunn DO [address] [place], [place] [address] 03/15/2023 Office Visit Endocrinology Nhung Monzon MD [address] [place] [address] 03/16/2023 Office Visit Pharmacy Pharmacist1, [facility] [address] [facility] [place] [address] 03/16/2023 Office Visit Dermatology Ling Capellan, [place] [address] [place] [address] 03/18/2023 Office Visit Internal Medicine Orlin Castro MD [address] [facility] [place] [address] 05/03/2023 Hospital Encounter Endoscopy Raymond Campbell MD [address] [place] [address] 05/03/2023 Surgery Endoscopy Raymond Campbell MD [address] [place] [address] COLONOSCOPY FLEXIBLE PROXIMAL DIAGNOSTIC 11/09/2023 Office Visit [facility] Mont[facility] De Oca, [facility] [address] [facility] [address] 11/30/2023 Imaging Radiology Scheduled Procedures Name Priority Associated Diagnoses Date/Ti me COLONOSCOPY FLEXIBLE PROXIMA L DIAGNOSTIC FAP (familial adenomatous polyposis) 05/03/2023 2:00 PM EDT ESOPHAGOGASTRODUODENOSCOPY ( EGD), FLEXIBLE, TRANSORAL, DIAGNOSTIC FAP (familial adenomatous polyposis) 05/03/2023 2:00 PM EDT Health Maintenance Due Date Last Done Comments *COPD SEVERITY VERIFIED BY PFT 08/02/2019 DIABETES-EYE EXAM 01/09/2023 01/09/2022, , 01/09/2022, Additional history exists Depression Screening, Annual for Pts 12 and Over 03/04/2023 03/04/2022 Albumin/Creatinine Ratio 05/14/2023 022, 05/01/2022, 03/06/2022, Additional history exists GFR 05/14/2023 05/14/2022, 09/0 08/2021, 10/13/2021, Additional history exists TSH 05/14/2023 05/14/2022, 09/0 08/2021, 05/10/2021, Additional history exists HbA1c 06/11/2023 12/10/2022, 03/0 12/2022, 05/14/2022, Additional history exists DIABETES-FOOT EXAM 08/07/2023 08/07/2022, 0 08/21/2021, 10/22/2020, Additional history exists Mammogram 09/12/2023 09/11/2022, 03/0 03/2022, 09/09/2020, Additional history exists O2 ASSESSMENT COMPLETED IN PAST YEAR FOR COPD 12/12/2023 12/11/2022 COLONOSCOPY-ANNUAL AGES 18-100 12/18/2023 12/17/2022, 04/29/2021, 10/15/2020, Additional history exists DXA Scan 05/12/2026 05/12/2022 Lipid Panel 10/27/2027 10/26/2022, 09/0 08/2021, 05/10/2021, Additional history exists DTaP,Tdap,and Td Vaccines (3 - Td or Tdap) 07/07/2032 07/07/2022, 09/29/2010 Hepatitis B Completed 12/20/2014, 07/06, 06/22/2014 Zoster Vaccines Completed 12/04/2019, 06/04, 05/20/2017 Pap Smear Discontinued 07/11/2020, 11/02, 09/05/2013, Additional history exists Sigmoidoscopy Discontinued 04/29/2021, 10/15/2020 Alpha-1 Antitrypsin Completed 08/21/2021 Influenza Vaccine (FLU shot) Completed 03/04/2022, 03/21/2021, 04/22/2020, Additional history exists Pneumococcal Vaccine: 65+ Years Completed 03/04/2022, 04/26/2015, [...] this encounter Medical Devices Implanted Type Area Drink Box Mechanic Device Identifier Shelf Expiration Date Model / Serial / Lot Stent 10fr 7cm - [id number] Implanted:Qty: 1 on 06/17/2010 at [place] [facility] NAN : RADHA [place] 01/15/2013 [id number] / / [id number] Description:pancreas documented as of this encounter Visit Diagnoses Diagnosis FAP (familial adenomatous polyposis)- Primary Benign neoplasm of colon Family history of familial adenomatous polyposis Elevated LFTs Other abnormal blood chemistry Dilation of pancreatic duct Other specified disease of pancreas FAP (familial adenomatous polyposis) Benign neoplasm of colon documented in this encounter Advance Directives Latest [...] the patient have Health Care Power of Appraiser Timber? No Care Teams Art Educator Relationship Specialty Start Date End Date Orlin Castro MD [address] [place] [phone] PCP - General Internal Medicine 04/27/19 documented as of this encounter"
--- OUTSIDE RECORDS SUMMARY | 2023-06-17 09:58 | External Medical Summary | Summary of Care ---
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..] MCG/ACT Inhalation Aerosol Breath Activated (Beclomethasone Diprop HFA)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 3 Each 3 08/07/2022 Active Additional Information Patient taking differently:1 Puff Inhalation BID(AM/PM),Hasn't started it yet, Reported on 08/12/2022 Spiriva Respimat 2.5 MCG/ACT Inhalation Aerosol Solution (Tiotropium [place] Monohydrate)Indicat ions:COPD, group B, by GOLD 2017 [...] 6 hours. 40 Capsule 0 11/02/2022 Active Sodium Chloride 7 % Inhalation Nebulization [...] mg NEBULIZER PRN 01/06/2022 01/06/2023 Acti ve sodium chloride IR 0.9 % irrigation 1,000 mLIndications:Status post laryngectomy 1000 mL IR BID PRN 10/02/2022 12/31/2022 Active documented as of this encounter (statuses as of 12/21/2022) Active Problems Problem Noted Date Pancreatic duct [...] as of this encounter (statuses as of 12/21/2022) Resolved Problems Problem Noted Date Resolved Date [...] as of this encounter (statuses as of 12/21/2022) Immunizations Name Administration Dates Next Due COVID-19 [...] Encounters Date Type Specialty Care Team Description 01/01/2023 Office Visit Gastroenterology Raymond Campbell MD [address] [facility] [place] [address] 01/12/2023 Office Visit Optometry Ari Staley, [place], OD [address] [place] [address] 02/17/2023 Office Visit Orthopedics Javon Bunn DO [address] [facility] [place] [address] 03/15/2023 Office Visit Endocrinology Nhung Monzon MD [address] [place] [address] 03/16/2023 Office Visit Pharmacy Pharmacist1, [facility] [address] [place] [address] 03/16/2023 Office Visit Dermatology Ling Capellan PA-C [address] [place] [address] 03/18/2023 Office Visit Internal Medicine Orlin Castro MD [address] [facility] [place], [place] [address] 11/09/2023 Office Visit [facility]ol[facility]ology Howard Montes [place] DO [address] [facility] [address] 11/30/2023 Imaging Radiology Health Maintenance Due Date Last Done Comments *COPD SEVERITY VERIFIED BY PFT 08/02/2019 DIABETES-EYE EXAM 01/09/2023 01/09/2022, , 01/09/2022, Additional history exists Depression Screening, Annual for Pts 12 and Over 03/04/2023 03/04/2022 Albumin/Creatinine Ratio 05/14/20232 022, 05/01/2022, 03/06/2022, Additional [...] this encounter Medical Devices Implanted Type Area Promotor Group Ticket Sales Device Identifier Shelf Expiration Date Model / Serial / Lot Stent 10fr 7cm - [id number] Implanted:Qty: 1 on 06/17/2010 at [facility] COOK : RADHA [place] 01/15/2013 [id number] / / [id number] Description:pancreas documented as of this encounter Procedures Procedure Name Priority Date/Time Associated Diagnosis Comments PATHOLOGY SCANNED RESULT 12/17/2022 documented in this encounter Results * PATHOLOGY SCANNED RESULT (12/17/2022) 12/17/2022 Raymond Campbell MD PATHOLOGY documented in this encounter Advance Directives Latest [...] the patient have Health Care Power of Track Service Person? No Care Teams Industrial Coffee Grinder Relationship Specialty Start Date End Date Orlin Castro MD [address] [place] [phone] PCP - General Internal Medicine 04/27/19 documented as of this encounter
[2023-06-17] MEDS ORDERED: FORMOTEROL 20 MCG/2 ML VIAL NEB PRN (14:27)
--- NOTE | 2023-06-17 14:28 | Hospitalist Progress Note ---
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 Noted wheezing at home. She is being managed for following: Possible bronchitis Sepsis POA: Secondary to above. WBC and respiratory rate elevated at presentation. Lactate WNL. COPD exacerbation Patient coming in with worsening dry cough with shortness of breath. Admitting CXR with no acute process. Continue with RTC nebs, as needed nebs, pulmonary toilet, doxycycline 06/17, Solu-Medrol. Consider pulmonology consult if with no improvement. PFT in 6 weeks time upon discharge. Other chronic medical conditions: Continue with/resume home meds as and when able. hypertension, slightly elevated secondary to illness. Will follow. 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 DVT prophylaxis per Lovenox subcu Full code Text document was generated using [employer] voice recognition software. It may contain grammatical or spelling errors. Kindly contact undersigned for clarification of any documentation item in question. Admission and Anticipated Discharge Date Admission Date: June 16, 2023 Subjective Patient was seen and examined at bedside. Patient was lying in bed, on 5 L oxygen via trach collar, not in acute distress. Patient reports dry cough mostly, minimal sputum. Does not report wheezing but was wheezing on exam. Denies febrile illness or chest pain or dizziness. Reports eating okay and moving bowels okay. Physical Exam Physical Exam: GENERAL: Alert and oriented x3. NAD, on 5L O2 via Trach Collar. HEENT: No pallor, no icterus. Pupils equal, round and reactive to light. Oral mucosa moist. NECK: No JVD, no neck masses. HEART: S1 and S2 heard. Regular rate and rhythm. No murmur, no gallop. RESPIRATORY SYSTEM: Normal AP diameter. No accessory muscle use. b/l wheezing, occ crackles. ABDOMEN: Soft, bowel sounds present, nontender, no distention. CENTRAL NERVOUS SYSTEM: No facial droop. Speech is clear. Obeys simple commands. Moves extremities. EXTREMITIES: trace ble edema, no erythema seen. Results & Data Results & Data Vital Signs (Past 12 Hours) Vital Signs Pulse Pulse Resp BP Pulse Ox Pulse Ox O2 Del Method 06/17/23 12:29 76 18 97 Trach Collar 06/17/23 08:10 98 06/17/23 08:09 98 06/17/23 07:34 82 18 150/94 H 97 Trach Collar 06/17/23 06:51 77 06/17/23 06:15 82 16 141/93 H 97 Trach Collar 06/17/23 02:33 Trach Collar O2 Del Method O2 Flow Rate O2 Flow Rate FiO2 06/17/23 12:29 6 28 06/17/23 08:10 Trach Collar 4 06/17/23 08:09 Trach Collar 4 06/17/23 07:34 10 06/17/23 06:51 06/17/23 06:15 6 06/17/23 02:33 6
[2023-06-17] MEDS ORDERED: BUDESONIDE 0.25 MG/2 ML VIAL (PULMICORT) INH PRN (14:37)
[2023-06-17] MEDS: CYCLOBENZAPRINE HCL 10 MG TAB PO PRN (18:30)
[2023-06-17] MEDS: FLUTICASONE FUROATE 100MCG 14 PUFFS/INHALER INH SCH (20:27)
[2023-06-17] MEDS: methylPREDNISolone 40 MG in SYRINGE 0 ML IV SCH (20:28)
[2023-06-18] MEDS: LEVALBUTEROL 1.25 MG/3 ML NEB NEB SCH ×4 (02:00→19:53)
[2023-06-18] MEDS: IPRATROPIUM BROMIDE NEB SOLN 0.02% 2.5 ML VIAL INH SCH ×4 (02:00→19:53)
[2023-06-18] MEDS: LEVOTHYROXINE SODIUM 200 MCG TABLET PO SCH (06:08)
[2023-06-18 07:23] LABS: Hematocrit (blood only) 35.1 % (37.0-47.0); Hemoglobin 11.9 g/dl (12.0-16.0); Mean Corpuscular Hemoglobin 28.5 pg (25.0-34.0); Mean Corpuscular Hgb Conc 33.9 g/dL (32.0-36.0); Mean Corpuscular Volume 84.2 fL (80.0-100.0); Mean Platelet Volume 10.9 fL (9.4-12.4); Platelet Count 299 K/uL (130-400); RDW Standard Deviation 40.1 fL (36.4-46.3); Red Blood Count 4.17 M/uL (4.20-5.40)
[2023-06-18 07:38] LABS: BUN Creatinine Ratio 20.7 (10-20); Calcium 7.9 mg/dl (8.6-10.3); Creatinine Clr Calc Pharmacy 67.8 ml/min; Est GFR (African American) 86.4 ml/min; Est GFR (Non-African American) 74.6 ml/min; Magnesium 1.7 mg/dl (1.7-2.4); Phosphorus 2.9 mg/dl (2.5-4.9); Potassium 3.7 mmol/L (3.5-5.1)
[2023-06-18] MEDS ORDERED: MAGNESIUM SULFATE / D5W 1 GM/100 ML BAG IV ONE (08:05)
[2023-06-18] MEDS: carvediloL 25 MG TAB PO SCH ×2 (08:29→20:58)
[2023-06-18] MEDS: DOXYCYCLINE HYCLATE 100 MG CAP PO SCH ×2 (08:29→20:59)
[2023-06-18] MEDS: methylPREDNISolone 40 MG in SYRINGE 0 ML IV SCH ×2 (08:29→20:57)
[2023-06-18] MEDS: ENOXAPARIN INJ 40 MG/0.4 ML SYR SQ SCH (08:30)
[2023-06-18] MEDS: SUCRALFATE 1 GM TAB PO SCH ×4 (08:30→20:59)
[2023-06-18] MEDS: PANTOprazole 40 MG TAB PO SCH (08:30)
[2023-06-18] MEDS: LOSARTAN POTASSIUM 50 MG TAB PO SCH (08:31)
[2023-06-18] MEDS: amLODIPine BESYLATE 5 MG TAB PO SCH (08:31)
[2023-06-18] MEDS: FLUTICASONE FUROATE 100MCG 14 PUFFS/INHALER INH SCH (08:32)
[2023-06-18] MEDS: LANTUS PER UNIT CHARGE SQ SCH ×2 (09:35→20:59)
[2023-06-18] MEDS: INSULIN ASPART PER UNIT CHARGE SC SCH ×4 (09:37→21:00)
[2023-06-18] MEDS: UMECLIDINIUM BROMIDE 62.5MCG/BLISTER 7 PUFFS/INHALER INH SCH (09:59)
--- NOTE | 2023-06-18 13:30 | Hospitalist Progress Note ---
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 Noted wheezing at home. She is being managed for following: Possible bronchitis Sepsis POA: Secondary to above. WBC and respiratory rate elevated at presentation. Lactate WNL. COPD exacerbation Patient coming in with worsening dry cough with shortness of breath. Admitting CXR with no acute process. Continue with RTC nebs, as needed nebs, pulmonary toilet, doxycycline 06/17, Solu-Medrol. Taper down steroid as able. Consider pulmonology consult if with no improvement. PFT in 6 weeks time upon discharge. Other chronic medical conditions: Continue with/resume home meds as and when able. hypertension, slightly elevated secondary to illness. Will follow. 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 DVT prophylaxis per Lovenox subcu Full code Text document was generated using [employer] voice recognition software. It may contain grammatical or spelling errors. Kindly contact undersigned for clarification of any documentation item in question. Admission and Anticipated Discharge Date Admission Date: June 16, 2023 Subjective Patient was seen and examined at bedside. Patient was lying in bed, on 5 L oxygen via trach collar, not in acute distress. Patient reports cough about the same. Denies febrile illness or chest pain or dizziness. Reports eating okay and moving bowels okay. Physical Exam Physical Exam: GENERAL: Alert and oriented x3. NAD, on 5L O2 via Trach Collar. HEENT: No pallor, no icterus. Pupils equal, round and reactive to light. Oral mucosa moist. NECK: No JVD, no neck masses. HEART: S1 and S2 heard. Regular rate and rhythm. No murmur, no gallop. RESPIRATORY SYSTEM: Normal AP diameter. No accessory muscle use. b/l wheezing, occ crackles. ABDOMEN: Soft, bowel sounds present, nontender, no distention. CENTRAL NERVOUS SYSTEM: No facial droop. Speech is clear. Obeys simple commands. Moves extremities. EXTREMITIES: trace ble edema, no erythema seen. Results & Data Results & Data Vital Signs (Past 12 Hours) Vital Signs Temp Pulse Pulse Pulse Resp BP Pulse Ox 06/18/23 12:36 37.0 C 64 18 153/86 H 95 06/18/23 08:00 06/18/23 07:38 71 18 95 06/18/23 07:30 61 06/18/23 07:24 06/18/23 07:00 36.9 C 66 18 139/75 95 06/18/23 04:00 36.7 C 79 18 141/70 H 92 06/18/23 02:01 74 18 97 Pulse Ox O2 Del Method O2 Del Method O2 Flow Rate O2 Flow Rate FiO2 06/18/23 12:36 Trach Collar 5 06/18/23 08:00 92 Trach Collar 6 06/18/23 07:38 Trach Collar 28 06/18/23 07:30 06/18/23 07:24 Trach Collar 6 28 06/18/23 07:00 Trach Collar 5 06/18/23 04:00 Trach Collar 6 06/18/23 02:01 Trach Collar 6 28
[2023-06-18] MEDS: CYCLOBENZAPRINE HCL 10 MG TAB PO PRN (21:14)
[2023-06-19] MEDS: LEVOTHYROXINE SODIUM 200 MCG TABLET PO SCH (06:10)
[2023-06-19 07:15] LABS: Hemoglobin 12.8 g/dl (12.0-16.0); Mean Corpuscular Hemoglobin 28.6 pg (25.0-34.0); Mean Corpuscular Hgb Conc 34.6 g/dL (32.0-36.0); Mean Corpuscular Volume 82.8 fL (80.0-100.0); Mean Platelet Volume 10.3 fL (9.4-12.4); Platelet Count 321 K/uL (130-400); RDW Coefficient of Variation 12.9 % (11.5-14.5); Red Blood Count 4.47 M/uL (4.20-5.40); White Blood Count 10.38 K/ul (4.8-10.8)
[2023-06-19 07:42] LABS: BUN Creatinine Ratio 21.6 (10-20); Calcium 7.8 mg/dl (8.6-10.3); Creatinine Clr Calc Pharmacy 75.4 ml/min; Est GFR (African American) 97.8 ml/min; Est GFR (Non-African American) 84.4 ml/min; Magnesium 1.6 mg/dl (1.7-2.4); Potassium 3.2 mmol/L (3.5-5.1)
[2023-06-19] MEDS ORDERED: POTASSIUM CHLORIDE CRTAB 20 MEQ TABCR PO STA (07:55)
[2023-06-19] MEDS: FORMOTEROL 20 MCG/2 ML VIAL NEB SCH ×2 (08:26→19:50)
[2023-06-19] MEDS: LOSARTAN POTASSIUM 50 MG TAB PO SCH (08:56)
[2023-06-19] MEDS: PANTOprazole 40 MG TAB PO SCH (08:56)
[2023-06-19] MEDS: MAGNESIUM SULFATE / D5W 1 GM/100 ML BAG IV SCH ×2 (08:56→10:48)
[2023-06-19] MEDS: amLODIPine BESYLATE 5 MG TAB PO SCH (08:56)
[2023-06-19] MEDS: SUCRALFATE 1 GM TAB PO SCH ×4 (08:57→22:01)
[2023-06-19] MEDS: methylPREDNISolone 40 MG in SYRINGE 0 ML IV SCH ×2 (08:57→22:01)
[2023-06-19] MEDS: carvediloL 25 MG TAB PO SCH ×2 (08:57→22:01)
[2023-06-19] MEDS: DOXYCYCLINE HYCLATE 100 MG CAP PO SCH ×2 (08:57→22:01)
[2023-06-19] MEDS: ENOXAPARIN INJ 40 MG/0.4 ML SYR SQ SCH (08:57)
[2023-06-19] MEDS: LANTUS PER UNIT CHARGE SQ SCH ×2 (08:58→22:02)
[2023-06-19] MEDS: INSULIN ASPART PER UNIT CHARGE SC SCH ×4 (08:58→22:02)
[2023-06-19] MEDS: FLUTICASONE FUROATE 100MCG 14 PUFFS/INHALER INH SCH (09:14)
[2023-06-19] MEDS: UMECLIDINIUM BROMIDE 62.5MCG/BLISTER 7 PUFFS/INHALER INH SCH (09:26)
--- NOTE | 2023-06-19 15:16 | Hospitalist Progress Note ---
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 Noted wheezing at home. She is being managed for following: Possible bronchitis Sepsis POA: Secondary to above. WBC and respiratory rate elevated at presentation. Lactate WNL. COPD exacerbation Patient coming in with worsening dry cough with shortness of breath. Admitting CXR with no acute process. Continue with RTC nebs, as needed nebs, pulmonary toilet, doxycycline 06/17, Solu-Medrol. Made Budesonide and performist letty. Taper down steroid as able. Still with wheezing and 5L O2 req (no home O2 per pt) Consider pulmonology consult if with no improvement. PFT in 6 weeks time upon discharge. Pulm f/u on DC. Other chronic medical conditions: Continue with/resume home meds as and when able. hypertension, slightly elevated secondary to illness. Will follow. 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 DVT prophylaxis per Lovenox subcu Full code Text document was generated using [employer] voice recognition software. It may contain grammatical or spelling errors. Kindly contact undersigned for clarification of any documentation item in question. Admission and Anticipated Discharge Date Admission Date: June 16, 2023 Subjective Patient was seen and examined at bedside. Patient was lying in bed, on 5 L oxygen via trach collar, not in acute distress. Patient reports cough improving gradually. Denies febrile illness or chest pain or dizziness. Reports eating okay and moving bowels okay. Physical Exam Physical Exam: GENERAL: Alert and oriented x3. NAD, on 5L O2 via Trach Collar. HEENT: No pallor, no icterus. Pupils equal, round and reactive to light. Oral mucosa moist. NECK: No JVD, no neck masses. HEART: S1 and S2 heard. Regular rate and rhythm. No murmur, no gallop. RESPIRATORY SYSTEM: Normal AP diameter. No accessory muscle use. b/l wheezing, occ crackles. ABDOMEN: Soft, bowel sounds present, nontender, no distention. CENTRAL NERVOUS SYSTEM: No facial droop. Speech is clear. Obeys simple comman ds. Moves extremities. EXTREMITIES: trace ble edema, no erythema seen. Results & Data Results & Data Vital Signs (Past 12 Hours) Vital Signs Temp Pulse Pulse Resp BP Pulse Ox Pulse Ox 06/19/23 11:33 36.7 C 63 16 162/87 H 97 06/19/23 08:27 78 18 94 06/19/23 08:03 36.7 C 61 16 171/88 H 91 06/19/23 08:03 06/19/23 08:00 94 06/19/23 07:47 60 O2 Del Method O2 Del Method O2 Flow Rate O2 Flow Rate FiO2 06/19/23 11:33 Trach Collar 5 06/19/23 08:27 Trach Collar 6 28 06/19/23 08:03 Trach Collar 5 06/19/23 08:03 Trach Collar 5 06/19/23 08:00 Trach Collar 5 06/19/23 07:47
[2023-06-19] MEDS: BUDESONIDE 0.25 MG/2 ML VIAL (PULMICORT) NEB SCH (19:49)
[2023-06-19] MEDS: CYCLOBENZAPRINE HCL 10 MG TAB PO PRN (22:01)
[2023-06-20] MEDS: LEVOTHYROXINE SODIUM 200 MCG TABLET PO SCH (05:46)
[2023-06-20 07:13] LABS: BUN Creatinine Ratio 21.7 (10-20); Calcium 7.6 mg/dl (8.6-10.3); Creatinine Clr Calc Pharmacy 79.2 ml/min; Est GFR (African American) 105.1 ml/min; Est GFR (Non-African American) 90.7 ml/min; Magnesium 1.7 mg/dl (1.7-2.4); Potassium 3.1 mmol/L (3.5-5.1)
[2023-06-20] MEDS: FORMOTEROL 20 MCG/2 ML VIAL NEB SCH (07:30)
[2023-06-20] MEDS: BUDESONIDE 0.25 MG/2 ML VIAL (PULMICORT) NEB SCH (07:30)
[2023-06-20] MEDS: UMECLIDINIUM BROMIDE 62.5MCG/BLISTER 7 PUFFS/INHALER INH SCH (08:28)
[2023-06-20] MEDS: methylPREDNISolone 40 MG in SYRINGE 0 ML IV SCH (08:28)
[2023-06-20] MEDS: ENOXAPARIN INJ 40 MG/0.4 ML SYR SQ SCH (08:28)
[2023-06-20] MEDS: PANTOprazole 40 MG TAB PO SCH (08:28)
[2023-06-20] MEDS: LOSARTAN POTASSIUM 50 MG TAB PO SCH (08:28)
[2023-06-20] MEDS: DOXYCYCLINE HYCLATE 100 MG CAP PO SCH (08:28)
[2023-06-20] MEDS: carvediloL 25 MG TAB PO SCH (08:29)
[2023-06-20] MEDS: SUCRALFATE 1 GM TAB PO SCH ×2 (08:29→11:17)
[2023-06-20] MEDS: amLODIPine BESYLATE 5 MG TAB PO SCH (08:29)
[2023-06-20] MEDS: INSULIN ASPART PER UNIT CHARGE SC SCH ×2 (08:51→12:46)
[2023-06-20] MEDS: LANTUS PER UNIT CHARGE SQ SCH (08:51)
[2023-06-20] MEDS: MAGNESIUM SULFATE / D5W 1 GM/100 ML BAG IV SCH ×2 (09:05→12:14)
[2023-06-20] MEDS: POTASSIUM CHLORIDE CRTAB 20 MEQ TABCR PO SCH ×2 (09:05→11:17)
--- NOTE | 2023-06-20 14:47 | Discharge Summary ---
Date of Service June 20, 2023 Admission HPI Per Admitting Provider History obtained from patient and records. Medical history significant for hypertension, hyperlipidemia, COPD, DM2 on oral medications, primary aldosteronism, recurrent thyroid cancer status post surgery/BRAND therapy, postsurgical hypothyroidism, history of post laryngectomy stoma stenosis status post stomaplasty, pancreatic cancer status post surgery, colon cancer status post surgery, GERD, history of Gross syndrome/FAP, history of MRSA as per records, past tobacco abuse. Last confinement October 2022 for COPD exacerbation secondary to parainfluenza illness. 2 days history of junky brown cough symptoms which shortness of breath. Worsening symptoms without chest pain. Denies aspiration. Wheezing at home. No known COVID-19 contacts. Patient has received COVID-19 vaccination. Azithromycin, Solu-Medrol and neb treatment administered at the ER. 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 Admission Exam Per Admitting Provider GENERAL: Slightly uncomfortable, pleasant, occasional use of electrolarynx, no respiratory distress SKIN: Normal color, warm HEENT: [place] palpebral conjunctivae, no ptosis, dry buccal mucosa NECK : Supple, neck stoma noted, no tenderness CHEST : Decreased breath sounds, diffuse expiratory wheezes, no tenderness HEART : RRR, no obvious murmurs ABDOMEN: Some distention, nontender EXTREMITIES : No LE swelling/tenderness, no other conspicuous deformities noted NEUROLOGIC : Coherent, no facial asymmetry, no other gross focality Principal Diagnosis Possible bronchitis Sepsis POA COPD exacerbation Discharge Exam GENERAL: Alert and oriented x3. NAD, on RA HEENT: No pallor, no icterus. Pupils equal, round and reactive to light. Oral mucosa moist. Trachaestoma noted. healthy appearing. NECK: No JVD, no neck masses. HEART: S1 and S2 heard. Regular rate and rhythm. No murmur, no gallop. RESPIRATORY SYSTEM: Normal AP diameter. No accessory muscle use. b/l wheezing - improved, no crackles. ABDOMEN: Soft, bowel sounds present, nontender, no distention. CENTRAL NERVOUS SYSTEM: No facial droop. Speech is clear. Obeys simple commands. Moves extremities. EXTREMITIES: trace ble edema, no erythema seen. Discharge Data Allergies Allergy/AdvReac Type Severity Reaction Status Date / Time NSAIDS (Non-Steroidal Allergy Intermediate Ulcer & Verified 12/17/22 08:36 Anti-Inflamma anemia zolpidem [From Ambien] Allergy Mild pysch Verified 12/17/22 08:36 complications, dizzy hydrochlorothiazide AdvReac Intermediate Acute Verified 12/17/22 08:36 kidney injury rosuvastatin [From Crestor] AdvReac Intermediate Elavated Verified 12/17/22 08:36 liver function test Consultations 06/16/23 21:11 ED Decision to Admit Stat Hospital Course (1) Sepsis: 67-year-old lady with PMH of HTN, HLD, COPD, T2DM on oral meds, primary aldosteronism, recurrent thyroid cancer status post surgery/BRAND therapy, postsurgical hypothyroidism, post laryngectomy stoma stenosis status post stoma plasty, pancreatic cancer status post surgery, colon cancer status post surgery, GERD, Gross syndrome/FAP, MRSA infection, past tobacco abuse presented to the ED 06/16 with complaint of 2 days of worsening cough symptoms with shortness of breath, no chest pain/no aspiration. Noted wheezing at home. She was managed for following: Possible bronchitis Sepsis POA: Secondary to above. WBC and respiratory rate elevated at presentation. Lactate WNL. COPD exacerbation Patient coming in with worsening dry cough with shortness of breath. Admitting CXR with no acute process. Continue with RTC nebs, as needed nebs, pulmonary toilet, doxycycline 06/17, Solu-Medrol. c/w Budesonide and performist letty. Pt communicated. Taper down steroid upon dc. Pt reports improved breathing, cough and wheezing, feels better. Now on room air. PFT in 6 weeks time upon discharge. Pulm f/u on DC. Other chronic medical conditions: Continue with/resume home meds as and when able. hypertension, slightly elevated secondary to illness. Will follow. hyperlipidemia/statin intolerance DM2 on oral medications, reasonable control as of recent hemoglobin A1c of 7.1 last month primary aldosteronism/history of bilateral adrenal nodules, patient follows with [facility] manager bilingual recurrent thyroid cancer status post surgery/BRAND therapy postsurgical hypothyroidism, outpatient TSH within normal limits history of post laryngectomy stoma stenosis status post stomaplasty pancreatic cancer status post surgery colon cancer status post surgery hx of Gross syndrome/FAP Chronic transaminitis, hepatic steatosis on outpatient MRI, patient follows with [facility] GI history of MRSA as per records past tobacco abuse. DVT prophylaxis per Lovenox subcu Full code Patient is being discharged home with following instruction at the point of discharge: Follow-up with your primary care physician within a week time and likely you will need labs CBC/CMP/magnesium/phosphorus. Continue to take your home budesonide and Perforomist nebulization scheduled for next several days upon discharge. You will be discharged on tapering dose of steroid. Follow-up with pulmonology in 2 to 4 weeks upon time, you will likely need PFT test in 6 weeks time upon discharge. Coordinate with your pulmonology office to set up the test. Your potassium levels were on the lower side while in hospital, you will be discharged on a small dose of potassium supplementation. You will need labs and further evaluation in a week time upon discharge with the PCP office. Take your medications as prescribed. Please make sure that you are able to get your medications today by calling your pharmacy before you leave the hospital so that your treatment continuity is not broken. Home Health Attestation I certify that this patient is under my care and that I, or a physicians medical assistant instructor working with me, had a face to-face encounter that meets the home health [id number] encounter requirements with this patient. The encounter with the patient was in whole, or in part, for the following medical condition, which is the primary reason for home health care (list medical condition): I certify that, based on my findings, the following services are medically necessary home health services: My clinical findings support the need for the above services because: Further, I certify that my clinical findings support that this patient is homebound (i.e. absences from home require considerable and taxing effort and are for medical reasons or adventism services or infrequently or of short duration when for other reasons) because: Certification for Home Health Services: Based on the above findings, I certify that this patient is confined to the home and needs intermittent assisted care, physical therapy and/or speech therapy or continues to need occupational therapy. The patient is under my care, and I have initiated the establishment of the plan of care. This patient will be followed by a physician who will periodically review the plan of care. Total Time Total Time Spent Total Time Spent (In Minutes): 45 Discharge Plan Discharge Items Patient Disposition: Home - Self-Care Reason For Visit: COPD EXACERBATION Discharge Diagnosis: Possible bronchitis Sepsis POA COPD exacerbation Activity: Resume your previous activity Non-emergency contact: Primary Care Provider Call non-emergency contact if: you have any medication questions, your symptoms worsen and your temperature is above 101 Follow-up/Referrals: Orlin Castro MD [Primary Care Provider] - Diet: Carb Consistent or DM2 and Heart Healthy Addtl Attending Provider Instructions: Follow-up with your primary care physician within a week time and likely you will need labs CBC/CMP/magnesium/phosphorus. Continue to take your home budesonide and Perforomist nebulization scheduled for next several days upon discharge. You will be discharged on tapering dose of steroid. Follow-up with pulmonology in 2 to 4 weeks upon time, you will likely need PFT test in 6 weeks time upon discharge. Coordinate with your pulmonology office to set up the test. Your potassium levels were on the lower side while in hospital, you will be discharged on a small dose of potassium supplementation. You will need labs and further evaluation in a week time upon discharge with the PCP office. Take your medications as prescribed. Please make sure that you are able to get your medications today by calling your pharmacy before you leave the hospital so that your treatment continuity is not broken. Pending Studies at Discharge: Yes Stand-Alone Forms: My [facility] [employer], Smoking Cessation Medications and DC Order Prescriptions: New doxycycline hyclate 100 mg Capsule 100 mg PO BID 4 Days Qty: 8 0RF prednisone 20 mg tablet 20 mg PO UD Qty: 11 0RF Rx Instructions: 40 mg daily for 4 days, then 20 mg daily for 3 days. potassium chloride 20 mEq tablet extended release 20 meq PO DAILY Qty: 15 0RF Continued triamcinolone acetonide 0.1 % cream 1 appln TOP BID pantoprazole [Protonix] 40 mg tablet,delayed release (DR/EC) 40 mg PO QAM losartan [Cozaar] 100 mg tablet 100 mg PO QAM cyclobenzaprine 10 mg tablet 10 mg PO HS PRN (Reason: Muscle Spasm) sucralfate 1 gram tablet 1 g PO ACHS Spiriva Respimat 2.5 mcg/actuation mist 2 inh INHALATION QAM ipratropium-albuterol 0.5 mg-3 mg(2.5 mg base)/3 mL Solution For Nebulization 3 ml INHALATION Q6 PRN (Reason: Shortness Of Breath Or Wheezing) repaglinide 2 mg Tablet 2 mg PO BIDM Rx Instructions: TAKE WITH BREAKFAST & SUPPER budesonide 0.25 mg/2 mL suspension for nebulization 0.25 mg NEB DIRECTED PRN (Reason: Shortness Of Breath Or Wheezing) formoterol fumarate [Perforomist] 20 mcg/2 mL solution for nebulization 20 mcg NEB BIDR PRN (Reason: Shortness Of Breath Or Wheezing) cyanocobalamin (vitamin B-12) [Vitamin B-12] 1,000 mcg Tablet 1,000 mcg PO DAILY ezetimibe 10 mg tablet 10 mg PO QAM Qvar RediHaler 80 mcg/actuation HFA aerosol breath activated 1 inh INHALATION AMHS repaglinide 1 mg Tablet 0.5 mg PO .PM SNACK carvedilol 25 mg tablet 25 mg PO BID levothyroxine 200 mcg tablet 200 mcg PO QAM clobetasol [Temovate] 0.05 % Ointment 1 applic TOPICAL BID PRN (Reason: flare ups) Rx Instructions: apply to affected areas on arms & feet. Start 07/21/2022. (DME) Dexcom G6 Sensor Device MISCELLANEOUS amlodipine 10 mg tablet 10 mg PO QAM metformin 1,000 mg tablet 1,000 mg PO BID Discharge Orders: Discharge Order (Routine); Ordered 06/20/23 Ordered By: Xenia Capps Admission Data Admit Date/Time: 06/16/23 22:12 Attending Provider: Xenia Capps Admit Provider: Julio C Quezada Primary Care Provider: Orlin Castro Other Providers: Julio C Quezada
== END 2023-06-20 15:05 | disposition home or self-care (01) | DRG 872 ==
LOC: ED 18:12 → EDINP 22:12 → 2N 23:59

== ENCOUNTER 2024-01-23 12:51 | Inpatient (IN) ==
--- OUTSIDE RECORDS SUMMARY | 2024-01-23 12:58 | External Medical Summary | Summary of Care ---
Author Name Unknown Organization [facility] Address [address] [place] [address] Phone [phone] Care Team Providers Care Sales Superintendent Name Role Phone Orlin Castro MD Primary Care Provider + Reason for Visit * Reason Onset Date Comments Advice 01/21/2024 Encounter Details Date Type Department Care Team (Late st Contact Info) Description 01/21/2024 Telephone General Internal Medicine [facility] [address] [place] [address] Orlin Castro MD [address] [place] [place] [address] Advice Allergies Active Allergy Reactions Criticality Noted Date Comments Zolpidem Tartrate Psych complications 6 Rosuvastatin 04/05/2020 Elevated lft Hydrochlorothiazide 12/29/2019 brenda Nsaids Other (Please comment) 04/14/2016 Gastric ulcer with anemia documented as of this encounter (statuses as of 01/21/2024) Medications Medication Sig Dispensed Refills Start Date End Date Status ONETOUCH DELICA LANCETS FINE MISC Use to test blood sugar 4 times daily dx e11.9 400 Each 3 03/09/2019 Active Misc. Devices MISC Tracheostomy Care Kit #4601 1 Each 10/02/2019 Active Vitamin B-12 1000 MCG Oral Tablet Take 1 Tab by mouth daily. 90 Tab 3 03/07/2021 Active OneTouch Verio Flex System w/Device Kit Use as directed. To test blood sugars up to 4 times a day Dx E11.22 1 Kit 04/03/2021 Active Misc. Devices Laryngectomy tube, size 10LGT 3 Each 07/29/2021 Active Misc. Devices Velcro Trach Ties for Laryngectomy Tube 15 Each 11 07/29/2021 Active Compressor NebulizerIndication s:COPD, group B, by GOLD 2017 classification ([facility]) Inhale via nebulizer . Use as directed. 1 Each 1 12/30/2021 Active Additional Information Patient not taking.Reported on 01/05/2024 Ipratropium-Albuter ol 0.5-2.5 (3) MG/3ML Inhalation Solution (Duoneb)Indications :COPD, group B, by GOLD 2017 classification ([facility]) Inhale via nebulizer 3 mL every 6 hours as needed for Wheezing. 360 mL 1 12/30/2021 Active Breathe Comfort Humidifier Use as directed. Laryngectomy status. Use for humidification to Trach site 1 Each 2 08/12/2022 Active Additional Information Patient not taking.Reported on 01/05/2024 Sodium Chloride 7 % Inhalation Nebulization Solution (Hyper-Allen) 4 ML VIA NEBULIZER TWICE DAILY FOR RESP. FOR 1 WEEK ONLY USE FOR 1 WEEK 2022 Active Formoterol Fumarate 20 MCG/2ML Inhalation Nebulization Solution 2022 Active Budesonide 0.25 MG/2ML Inhalation Suspension (Pulmicort) 0.25 mg. 2022 Active OneTouch Verio In Vitro Strip (Glucose Blood)Indications:T ype 2 diabetes mellitus with hemoglobin A1c goal of less than 7.0% ([facility]) Use to test blood glucose 4 times daily. DX: E11.9 400 Strip 3 01/25/2023 Active Levothyroxine Sodium 200 MCG Oral Tablet (Levoxyl)Indication s:Postsurgical hypothyroidism TAKE 1 TABLET BY MOUTH DAILY AT LEAST 30 MINUTES PRIOR TO FIRST MEAL OF THE DAY OR OTHER MEDICATIONS 90 Tablet 3 03/15/2023 Active Misc. Devices Electrolarynx Medically necessary 1 Each 03/15/2023 Active Potassium Chloride ER 10 MEQ Oral Capsule Extended Release Take 20 Milliequivalent by mouth in the morning. 06/20/2023 Active Losartan Potassium 100 MG Oral Tablet (Cozaar) TAKE ONE TABLET BY MOUTH EVERY DAY 180 Tablet 3 07/07/2023 07/06/19 Active Additional Information Patient taking differently: Daily(AM), Reported on 01/05/2024 Ferrous Sulfate 325 (65 Fe) MG Oral Tablet (Feosol) TAKE ONE TABLET THREE TIMES DAILY 270 Tablet 1 07/08/2023 Active Sucralfate 1 GM Oral Tablet (Carafate)Indicatio ns:Gastritis, bile acid reflux Take by mouth 1 Tablet in the morning AND 1 Tablet at noon AND 1 Tablet in the evening AND 1 Tablet before bedtime. 360 Tablet 3 07/27/2023 Active Additional Information Patient not taking.Reported on 01/05/2024 Pantoprazole Sodium 40 MG Oral Tablet Delayed Release (Protonix) TAKE ONE TABLET BY MOUTH EVERY DAY 90 Tablet 3 09/06/2023 09/06/19 25 Active Additional Information Patient not taking.Reported on 01/05/2024 Carvedilol 25 MG Oral Tablet (Coreg)Indications: HTN, goal below 140/90 TAKE ONE TABLET BY MOUTH 2 TIMES A DAY WITH MORNING AND EVENING MEALS 180 Tablet 3 09/07/2023 09/07/19 Active amLODIPine Besylate 10 MG Oral Tablet (Norvasc)Indication s:Essential hypertension with goal blood pressure less than 140/90 TAKE ONE TABLET BY MOUTH EVERY DAY. 90 Tablet 3 09/29/2023 09/29/19 25 Active Additional Information Patient taking differently: Daily(AM), Reported on 01/05/2024 metFORMIN HCl ER 500 MG Oral Tablet Extended Release 24 Hour (Glucophage XR)Indications:Type 2 diabetes mellitus with hemoglobin A1c goal of less than 7.0% (HCC) Take 1 Tablet by mouth two times a day. 180 Tablet 3 11/17/2023 Active Repaglinide 2 MG Oral Tablet (Prandin)Indication s:Type 2 diabetes mellitus with hemoglobin A1c goal of less than 7.0% (HCC) Take 1 tablet by mouth in the morning with breakfast and 1 tablet with supper. 180 Tablet 3 11/17/2023 Active Cyclobenzaprine HCl 10 MG Oral Tablet (Flexeril)Indicatio ns:Spasm of muscle TAKE ONE TABLET BY MOUTH AT BEDTIME NEEDED FOR MUSCLE SPASMS. 90 Tablet 3 11/29/2023 Active Ezetimibe 10 MG Oral Tablet (Zetia)Indications: Mixed hyperlipidemia TAKE ONE TABLET BY MOUTH EVERY DAY IN THE MORNING 90 Tablet 3 11/26/2023 11/26/19 25 Active Repaglinide 1 MG Oral Tablet (Prandin)Indication s:Type 2 diabetes mellitus with hemoglobin A1c goal of less than 7.0% (HCC) TAKE ONE-HALF TABLET BY MOUTH EVERY DAY WITH EVENING SNACK 45 Tablet 3 12/31/2023 Active Amoxicillin-Pot Clavulanate 875-125 MG Oral Tablet (Augmentin)Indicati ons:Lung infection Take 1 Tablet by mouth in the morning and 1 Tablet before bedtime. Do all this for 7 days. 14 Tablet 01/21/2024 01/28/20 24 Active documented as of this encounter (statuses as of 01/21/2024) Active Problems Problem Noted Date Diagnosed Date Chronic obstructive pulmonary disease 09/30/2023 Hypertensive kidney disease with chronic kidney disease stage III 09/27/2023 Type 2 diabetes mellitus wit h stage 3 chronic kidney disease, without long-term current use of insulin 08/03/2023 Stage 3 chronic kidney disease 08/03/2023 Primary aldosteronism 03/15/2023 Pancreatic duct dilated 01/06/2022 Adrenal nodule [...] as of this encounter (statuses as of 01/21/2024) Resolved Problems Problem Noted Date Diagnosed Date Resolved Date Thyroid cancer 03/15/2023 09/27/2023 Type 2 diabetes mellitus wit h stage [...] as of this encounter (statuses as of 01/21/2024) Immunizations Name Administration Dates Next Due COVID-19 mRNA, LNP-s, No Pre serve, 2-Dose Series (Moderna) 02/15/2021,01/09/2021,12/12/2020 Covid-19, Mrna, Lnp-s, Pf, B ivalent, 50 Mcg, IM, 12 yrs and above (Moderna) 07/07/2022 Hepatitis B, 20+ yrs 12/20/2014,07/27/2014,06/22 Pneumococcal Conjugate Vacc, 13 Valent (Prevnar) 04/26/2015,04/04/2015 Pneumococcal Polysaccharide PPV23 (Pneumovax) 03/04/2022,12/03/2013 Seasonal Influenza Virus Vac cine, Unspecified Formulation 03/10/2019,04/21/2018,04/14/2017,03/18,06/05/2010 Seasonal Influenza, PF, 6 M & above, IM , (FluLaval or Fluzone) 03/21/2021,04/22/2020,03/10/2019,04/21,04/14/2017 Seasonal Influenza, Quadriva lent Hd (Fluzone Hd) 03/18/2023,03/04/2022 Seasonal Influenza, Quadriva lent, No Preserve, IM 03/18/2016,04/12/2015 Seasonal Influenza, Split, I IV3, With Preserve, Inj 03/16/2014,03/24/2013,03/14/2012,04/07,06/05/2010 TDAP (age 10 and older)(Boostrix) 07/07/2022 TDAP, Age 7 and older, IM (Adacel) 09/29/2010 Varicella Zoster Vaccine (Adult) 05/20/2017 Zoster Vaccine Recombinant (Shingrix) 12/04/2019 ,06/14/2019 documented as of this encounter Social History Tobacco Use Types Packs/Day Years Used Date Smoking Tobacco: Former Cigarettes 1 30 0 07/05/1976 - 07/05/2006 Smokeless Tobacco: Never Alcohol Use Standard Drinks/Week Comments No 0 (1 standard drink = 0.6 oz pur e alcohol) PHQ-2 Answer Date Recorded PHQ Adult Total Score 0 06/22/2023 Hunger Vital Sign Answer Date Recorded Within the past 12 months, y ou worried that your food would run out before you got the money to buy more. Never true 06/22/20 23 Within the past 12 months, t he food you bought just didn't last and you didn't have money to get more. Never true 06/22/2023 Sex and Gender Information Value Date Recorded [...] encounter Miscellaneous Notes * Telephone Encounter - Marlena King MED ASSIST - 01/21/2024 4:35 PM EDT Left very detailed message on self identifying voice mail with the information below. * Telephone Encounter - Orlin Castro MD - 01/21/2024 2:50 PM EDT Strongly urge she check a covid test Can consider urgent care if symptoms persistent Abx (augmentin) sent twice a day for 7 days * Telephone Encounter - Kyleigh Gilliam LPN - 01/21/2024 2:43 PM EDT Pt calling requesting ABX, she has a trach. She is coughing up brown mucus and her lungs hurt when she coughs. She feels warm and has chills. Sx started during the night. No sob. She hasn't taken anything for cough. No appts avail for today or tomorrow. Please advise. documented in this encounter Plan of Treatment Upcoming Encounters Date Type Department Care Team (Latest Contact Info) Description 02/17/2024 7:50 AM EDT Office Visit OptometryMarin [address] [place] [address] Rancho Chapman Jr., OD [address] [place] [address] 03/01/2024 8:30 AM EDT Office Visit Orthopaedics [facility] [address] [place] [address] Javon Bunn DO [address] [place] [address] 03/27/2024 8:40 AM EDT Office Visit Endocrinology [address] [place] [address] Nhung Monzon MD [address] [place] [address] 04/24/2024 2:10 PM EDT Office Visit Pharmacy, [facility] [address] [place] [address] Pharmacist1, [facility] [address] [facility] [place] [address] 04/24/2024 2:40 PM EDT Office Visit General Internal Medicine [facility] [address] [place] [address] Orlin Castro MD [address] [facility] [place] [address] 04/27/2024 11:49 AM EDT Hospital Encounter OR [facility], Operating Room, [facility] - 4th Floor [address] [place] [address] Raymond Campbell MD [address] [place] [address] 04/27/2024 11:49 AM EDT - 04/27/2024 12:39 PM EDT Surgery OR [facility], Operating Room, [facility] - 4th Floor [address] [place] [address] Raymond Campbell MD [address] [place] [address] COLONOSCOPY FLEXIBLE PROXIMAL DIAGNOSTIC 07/04/2024 9:20 AM EST Office Visit General Internal Medicine [facility] [address] [place] [address] Orlin Castro MD [address] [place] [address] 10/03/2024 8:40 AM EDT Office Visit Nephrology, [facility] [address] [place] [address] Galindo Jean MD [address] [place] [address] Scheduled Procedures Name Priority Associated Diagnoses Date/Ti me COLONOSCOPY FLEXIBLE PROXIMAL DIAGNOSTIC Family history of colonic polyps 04/27/2024 11:49 AM EDT Health Maintenance Due Date Last Done Comments Cologuard 2001 Fecal Occult Blood Test 2001 *COPD SEVERITY VERIFIED BY PFT 08/02/2019 COVID-19 Vaccine ( season) 2023 07/07/2022, 02/15/2021, 01/09/2021, Additional history exists Colonoscopy 12/18/2023 12/17/2022, 12/03, 08/30/2018, Additional history exists Colorectal Cancer Screening 12/18/2023 Diabetic Eye Exam 01/13/2024 01/12/2023, , 01/12/2023, Additional history exists Influenza Vaccine (FLU shot) (#1) 2024 03/18/2023, 03/04/2022, 03/21/2021, Additional history exists TSH 03/15/2024 03/15/2023, 05/05, 03/06/2022, Additional history exists Albumin/Creatinine Ratio 05/05/2024 023, 05/14/2022, 05/01/2022, Additional history exists Depression Screening 06/22/2024 06/22/2023 HbA1c 07/01/2024 12/31/2023, 09/03, 05/31/2023, Additional history exists GFR 07/15/2024 01/13/2024, 10/03, 08/23/2023, Additional history exists Mammogram 09/13/2024 09/14/2023, 09/02, 09/11/2022, Additional history exists Diabetic Foot Exam 09/29/2024 09/30/2023, 0 08/07/2022, 08/21/2021, Additional history exists O2 ASSESSMENT COMPLETED IN PAST YEAR FOR COPD 01/04/2025 01/05/2024 CKD HGB USE SMARTSET 26591 01/12/202501/12, 01/13/2024, 08/03/2023, Additional history exists CKD PHOS USE SMARTSET 69483 01/12/202501/02, 08/23/2023, 08/03/2023, Additional history exists Sigmoidoscopy 04/29/2026 04/29/2021, 10/15/2020 DXA Scan 05/12/2026 05/12/2022, 05/12/2022 Lipid Panel 10/12/2028 10/13/2023, 10/04, 03/06/2022, Additional history exists DTaP,Tdap,and Td Vaccines (3 - Td or Tdap) 07/07/2032 07/07/2022, 09/29/2010 Hepatitis B Vaccine Completed 12/20/2014, 07/27/2014, 06/22/2014 Zoster Vaccines Completed 12/04/2019, 06/04, 05/20/2017 Pap Smear Discontinued 07/11/2020, 11/02, 09/05/2013, Additional history exists Alpha-1 Antitrypsin Completed 08/21/2021 Pneumococcal Vaccine: 65+ Years Completed 03/04/2022, 04/26/2015, 04/04/2015, Additional history exists RETIRED - COLONOSCOPY-ANNUAL AGES 18-100 Discontinued 12/17/2022, 12/17/2022, 04/29/2021, Additional history exists *BASELINE EKG FOR HTN Completed 09/28/2023 , 11/26/2020, 12/09/2018, Additional history exists HPV (Gardasil) Vaccine Aged Out No lo nger eligible based on patient's age to complete this topic MENINGOCOCCAL (MENACTRA/MENVEO) Aged Out No longer eligible based on patient's age to complete this topic documented as of this encounter Medical Devices Implanted Type Area Commercial Door Installer Device Identifier Shelf Expiration Date Model / Serial / Lot Stent Pancreatic Geenen 5fr - [id number] Implanted:Qty: 1 on 06/17/2010 at OR [facility] [employer] 03/18/2013 [id number] / / [id number] Stent 10fr 7cm - [id number] Implanted:Qty: 1 on 06/17/2010 at OR [facility] [employer] : RADHA [place] 01/15/2013 [id number] / / [id number] Description:pancreas documented as of this encounter Visit Diagnoses Diagnosis Lung infection- Primary Other diseases of lung, not elsewhere classified Family history of colonic polyps documented in this encounter Advance Directives * Full Code (Latest Code Status on File) Date Activated Date Inactivated Comments 11/29/2020 5:40 PM 11/30/2020 2:45 PM This order r eflects the patients wishes and were consensually agreed upon. * Full Code Date Activated Date Inactivated Comments 12/02/2012 3:07 PM 12/08/2012 3:29 PM This order re flects the patients wishes and were consensually agreed upon. Question Answer Comments Discussion of Advance Directives occurred with: Not Discussed * Full Code Date Activated Date Inactivated Comments 12/02/2012 5:49 AM 12/02/2012 3:07 PM This order r eflects the patients wishes and were consensually agreed upon. Question Answer Comments Discussion of Advance Directives occurred with: Not Discussed * Full Code Date Activated Date Inactivated Comments 06/17/2010 12:26 PM 06/25/2010 8:22 PM This orde r reflects the patients wishes and were consensually agreed upon. Question Answer Comments Discussion of Advance Directives occurred with: Patient * Full Code Date Activated Date Inactivated Comments 06/04/2010 11:18 PM 06/10/2010 6:26 PM This order reflects the patients wishes and were consensually agreed upon. Question Answer Comments Discussion of Advance Directives occurred with: Patient Does the patient have a Living Will? No Does the patient have Health Care Power of Attor tanika? No Care Teams Sales Superintendent Relationship Specialty Start Date End Date Orlin Castro MD [address] [place] [address] PCP - General Internal Medicine 04/27/19 documented as of this encounter
--- OUTSIDE RECORDS SUMMARY | 2024-01-23 12:59 | External Medical Summary ---
Author Name Unknown Address Unknown Organization [id number] [address] [place] [address] Laboratory Report Ordering Provider Test Date Status RICHARD BEYER 01/13/2024 09:04:45 Final Observation Date Value Abnormality Reference (Units ) Status Bilirubin, Total 01/13/2024 09:04:45 0.5 <=1 .2 (mg/dL) Final Performing Location [facility] [place] [address]
--- OUTSIDE RECORDS SUMMARY | 2024-01-23 12:59 | External Medical Summary | Summary of Care ---
Author Name Unknown Organization [facility] Address [address] [place] [address] Phone [phone] Care Team Providers Care Informatics Educator Name Role Phone Orlin Castro MD Primary Care Provider + Reason for Visit * Reason Onset Date Comments Test Results 01/17/2024 Encounter Details Date Type Department Care Team (Late st Contact Info) Description 01/17/2024 Telephone [facility]rology[facility] [address] [facility] [place] [address] Galindo Jean MD [address] [facility] [place] [address] Test Results Allergies Active Allergy Reactions Criticality Noted Date Comments Zolpidem Tartrate Psych complications 6 Rosuvastatin 04/05/2020 Elevated lft Hydrochlorothiazide 12/29/2019 brenda Nsaids Other (Please comment) 04/14/2016 Gastric ulcer with anemia documented as of this encounter (statuses as of 01/17/2024) Medications Medication Sig Dispensed Refills Start Date [...] B, by GOLD 2017 classification ([facility]) Inhale via nebulizer . Use as directed. 1 Each 1 12/30/2021 Active Additional Information Patient not taking.Reported on 01/05/2024 Ipratropium-Albuter ol 0.5-2.5 (3) MG/3ML Inhalation Solution (Duoneb)Indications :COPD, group B, by GOLD 2017 classification ([facility]) Inhale via nebulizer 3 mL every [...] goal of less than 7.0% ([facility]) Use to test blood glucose 4 times [...] EVERY DAY IN THE MORNING 90 Tablet 11/26/2023 11/26/19 25 Active Repaglinide 1 MG Oral Tablet (Prandin)Indication s:Type 2 diabetes mellitus with hemoglobin A1c goal of less than 7.0% (HCC) TAKE ONE-HALF TABLET BY MOUTH EVERY DAY WITH EVENING SNACK 45 Tablet 3 12/31/2023 Active documented as of this encounter (statuses as of 01/17/2024) Active Problems Problem Noted Date Diagnosed Date [...] as of this encounter (statuses as of 01/17/2024) Resolved Problems Problem Noted Date Diagnosed Date [...] as of this encounter (statuses as of 01/17/2024) Immunizations Name Administration Dates Next Due COVID-19 [...] encounter Miscellaneous Notes * Telephone Encounter - Lynn Cruz LPN - 01/17/2024 10:04 AM EDT Attempted to contact only received voice mail [facility] will send MyG regarding test results * Telephone Encounter - Lynn Cruz LPN - 01/17/2024 10:02 AM EDT ----- Message from Galindo Jean MD sent at 01/17/2024 9:51 AM EDT ----- Kidney Labs better. Continue same * Telephone Encounter - Lynn Cruz LPN - 01/17/2024 10:02 AM EDT ----- Message from Galindo Jean MD sent at 01/17/2024 9:34 AM EDT ----- Urine tests looks fine documented in this encounter Plan of Treatment Upcoming Encounters Date Type Department Care Team (Latest Contact Info) Description 02/17/2024 7:50 AM EDT Office Visit Optometry, [place] [address] [place] [address] Rancho Chapman Jr. Juan MiguelMAGGY [address] [place] [address] 03/01/2024 8:30 AM EDT Office Visit Orthopaedics [facility] [address] [place] [address] Javon Bunn DO [address] [place] [address] 03/27/2024 8:40 AM EDT Office Visit Endocrinology [facility] [place] [address] [place] [address] Nhung Monzon MD [address] [place] [address] 04/24/2024 2:10 PM EDT Office Visit Pharmacy, [facility] [place] [address] [facility] [place] [address] Pharmacist1, [facility] [address] [place] [address] 04/24/2024 2:40 PM EDT Office Visit General Internal Medicine [facility] [place] [address] [place] [address] Orlin Castro MD [address] [place] [address] 04/27/2024 11:55 AM EDT Hospital Encounter OR [facility], Operating Room, [facility] - 4th Floor [address] [facility] [place] [address] Raymond Campbell MD [address] [facility] [address] 04/27/2024 11:55 AM EDT - 04/27/2024 12:45 PM EDT Surgery OR [facility], Operating Room, [facility] - 4th Floor [address] [place] [place] [address] Raymond Campbell MD [address] [place] [address] COLONOSCOPY FLEXIBLE PROXIMAL DIAGNOSTIC 07/04/2024 9:20 AM EST Office Visit General Internal Medicine [facility] [place] [facility] [place] [address] [facility] [place] [address] Orlin Castro MD [address] [facility] [place] [address] 10/03/2024 8:40 AM EDT Office Visit Nephrology, [facility] [place] [facility] [address] [facility] [place] [address] Galindo Jean MD [address] [facility] [place] [address] Scheduled Procedures Name Priority Associated Diagnoses Date/Ti me COLONOSCOPY FLEXIBLE PROXIMAL DIAGNOSTIC Family history of colonic polyps 04/27/2024 11:55 AM EDT Health Maintenance Due Date Last [...] COPD 01/04/2025 01/05/2024 CKD HGB USE SMARTSET 83299 01/12/202501/12, 01/13/2024, 08/03/2023, Additional history exists CKD PHOS USE SMARTSET 83437 01/12/202501/02, 08/23/2023, 08/03/2023, Additional history exists Sigmoidoscopy [...] this encounter Medical Devices Implanted Type Area Hospice Music Therapist Device Identifier Shelf Expiration Date Model / Serial / Lot Stent Pancreatic Geenen 5fr - [id number] Implanted:Qty: 1 on 06/17/2010 at OR [facility] [employer] 03/18/2013 [id number] / / [id number] Stent 10fr 7cm - [id number] Implanted:Qty: 1 on 06/17/2010 at OR [facility] : RADHA [place] 01/15/2013 [id number] / / [id number] Description:pancreas documented as of this encounter Advance Directives * Full Code [...] Power of Attor tanika? No Care Teams Informatics Educator Relationship Specialty Start Date End Date Orlin Castro MD [address] [place] [address] PCP - General Internal Medicine 04/27/19 documented as of this encounter
--- OUTSIDE RECORDS SUMMARY | 2024-01-23 12:59 | External Medical Summary ---
Author Name Unknown Address Unknown Organization [facility] [address] [place] [address] Laboratory Report Ordering Provider Test Date Status RICHARD BEYER 01/13/2024 09:04:45 Final Observation Date Value Abnormality Reference (Units ) Status ALT (Alanine aminotransferase) 01/13/2024 09:04:45 45 Above high normal 10-35 (U/L) Final Performing Location [facility] [address] [place] [address]
--- OUTSIDE RECORDS SUMMARY | 2024-01-23 12:59 | External Medical Summary ---
Author Name Unknown Address Unknown Organization [facility] [place] [place] [address] Laboratory Report Ordering Provider Test Date Status LASHON VASQUEZ 01/13/2024 09:04:45 Final Observation Date Value Abnormality Reference (Units ) Status BUN 01/13/2024 09:04:45 23 Above high normal 6-20 (mg/dL) Final Creatinine 01/13/2024 09:04:45 1.0 0.5-1.0 (mg/dL) Final Glomerular filtration rate/1.73 sq M.predicted [Volume Rate/Area] in Serum, Plasma or Blood by Creatinine-based formula (CKD-EPI) 01/13/2024 09:04:45 61 >=60 (mL/min) Final eGFR is calculated based on the CKD-EPI 2020 equation Sodium 01/13/2024 09:04:45 141 135-146 (m mol/L) Final Potassium 01/13/2024 09:04:45 5.1 3.5-5.1 (m mol/L) Final Cl 01/13/2024 09:04:45 103 98-107 (mm ol/L) Final CO2 01/13/2024 09:04:45 26 22-32 (mmo l/L) Final Anion gap 01/13/2024 09:04:45 12 7-15 (mmol /L) Final Glucose 01/13/2024 09:04:45 162 Above high normal 70 -120 (mg/dL) Final Calcium 01/13/2024 09:04:45 9.3 8.4-10.2 ( mg/dL) Final Albumin 01/13/2024 09:04:45 4.2 3.8-5.0 (g /dL) Final Phosphate 01/13/2024 09:04:45 4.6 2.5-4.8 (m g/dL) Final Performing Location [facility] [place] [address]
--- OUTSIDE RECORDS SUMMARY | 2024-01-23 12:59 | External Medical Summary ---
Author Name Unknown Address Unknown Organization [facility] [place] [address] Laboratory Report Ordering Provider Test Date Status RICHARD BEYER 01/13/2024 09:04:45 Final Observation Date Value Abnormality Reference (Units ) Status Alk Phos 01/13/2024 09:04:45 182 Above high normal 35 -130 (U/L) Final Performing Location [facility] [place] [address]
--- OUTSIDE RECORDS SUMMARY | 2024-01-23 12:59 | External Medical Summary ---
Author Name Unknown Address Unknown Organization K09:[facility] [address] [place] [address] Laboratory Report Ordering Provider Test Date Status RICHARD BEYER 01/13/2024 09:04:45 Final Observation Date Value Abnormality Reference (Units ) Status Bilirubin, Direct 01/13/2024 09:04:45 <0.2 0. 0-0.3 (mg/dL) Final Performing Location [facility] [place] [address]
--- OUTSIDE RECORDS SUMMARY | 2024-01-23 12:59 | External Medical Summary | Summary of Care ---
Author Name Unknown Organization [facility] Address [address] [place] [place] [address] Phone [phone] Care Team Providers Care Truck Repair Supervisor Name Role Phone Orlin Castro MD Primary Care Provider + Reason for Visit * Reason Comments Outpatient Testing Encounter Details Date Type Department Care Team (Late st Contact Info) Description 01/13/2024 9:00 AM EDT Laboratory Laboratory [facility] [address] [place] [address] [facility] [address] [place] [address] Elevated LFTs; Decreased GFR; Stage 3a chronic kidney disease (HCC) Allergies Active Allergy Reactions Criticality Noted Date Comments Zolpidem Tartrate Psych complications 6 Rosuvastatin 04/05/2020 Elevated lft Hydrochlorothiazide 12/29/2019 brenda Nsaids Other (Please comment) 04/14/2016 Gastric ulcer with anemia documented as of this encounter (statuses as of 01/13/2024) Medications Medication Sig Dispensed Refills Start Date [...] s:COPD, group B, by GOLD 2017 classification ([facility]) Inhale via nebulizer . Use as directed. 1 Each 1 12/30/2021 Active Additional Information Patient not taking.Reported on 01/05/2024 Ipratropium-Albuter ol 0.5-2.5 (3) MG/3ML Inhalation Solution (Duoneb)Indications :COPD, group B, by GOLD 2017 classification ([facility]) Inhale via nebulizer 3 [...] hemoglobin A1c goal of less than 7.0% ([facility]) Use to test blood [...] 07/08/2023 Active Sucralfate 1 GM Oral Tablet (Carafate)Ehtio ns:Gastritis, bile acid reflux Take by mouth [...] EVENING MEALS 180 Tablet 3 09/07/2023 09/07/19 25 Active amLODIPine Besylate 10 MG Oral Tablet [...] Active Cyclobenzaprine HCl 10 MG Oral Tablet (Flexeril)Ehtio ns:Spasm of muscle TAKE ONE TABLET BY [...] as of this encounter (statuses as of 01/13/2024) Active Problems Problem Noted Date Diagnosed Date [...] as of this encounter (statuses as of 01/13/2024) Resolved Problems Problem Noted Date Diagnosed Date [...] as of this encounter (statuses as of 01/13/2024) Immunizations Name Administration Dates Next Due COVID-19 [...] 7:50 AM EDT Office Visit OptometryMarin [facility] [place] [address] Rancho Chapman Jr., OD 16 [place] [address] 03/01/2024 8:30 AM EDT Office Visit Orthopaedics [facility] 132 [facility] [place] [address] Javon Bunn DO 132 [facility] [place] [address] 03/27/2024 8:40 AM EDT Office Visit Endocrinology [address] [place] [place] [phone] Nhung Monzon MD [address] [facility] [place] [id number] 04/24/2024 2:10 PM EDT Office Visit Pharmacy, [place] 200 [facility] [place] [address] Pharmacist1, [facility] [address] [place] [address] 04/24/2024 2:40 PM EDT Office Visit General Internal Medicine [facility] [place] [address] [facility] [facility] [place] [address] Orlin Castro MD [address] [facility] [place] [facility] [place] [address] 04/27/2024 11:55 AM EDT Hospital Encounter OR [facility], Operating Room, [facility] - 4th Floor [address] [place] [address] Raymond Campbell MD [address] [place] [address] 04/27/2024 11:55 AM EDT - 04/27/2024 12:45 PM EDT Surgery OR [facility], Operating Room, [facility] - 4th Floor [address] [place] [address] Raymond Campbell MD [address] [place] [address] COLONOSCOPY FLEXIBLE PROXIMAL DIAGNOSTIC 07/04/2024 9:20 AM EST Office Visit General Internal [facility] [place] [address] [place] [address] Orlin Castro MD [address] [facility] [place] [facility] [place] [address] 10/03/2024 8:40 AM EDT Office Visit Nephrology, [facility] [address] [place] [address] Galindo Jean MD [address] [place] [address] Pending Results Name Type Priority Associated Diagnoses Date /Time PTH Lab Routine Stage 3a chronic kidney disease (HCC) 01/13/2024 9:04 AM EDT RENAL FUNCTION PANEL Lab Routine Stage 3a chronic kidney disease (HCC) 01/13/2024 9:04 AM EDT 25-HYDROXY VITAMIN D Lab Routine Stage 3a chronic kidney disease (HCC) 01/13/2024 9:04 AM EDT ALKALINE PHOSPHATASE Lab Routine Elevated LFTs 01/13/2024 9:04 AM EDT PROTEIN Lab Routine Elevated LFTs 01/13/2024 9:04 AM EDT AST Lab Routine Elevated LFTs 01/13/2024 9:04 AM EDT ALT Lab Routine Elevated LFTs 01/13/2024 9:04 AM EDT BILIRUBIN, DIRECT Lab Routine Elevated LFTs 01/13/2024 9:04 AM EDT BILIRUBIN, TOTAL Lab Routine Elevated LFTs 01/13/2024 9:04 AM EDT Scheduled Procedures Name Priority Associated [...] 03/15/2024 03/15/2023, 05/05, 03/06/2022, Additional history exists GFR 04/13/2024 10/13/2023, 08/05, 08/03/2023, Additional history exists Albumin/Creatinine Ratio 05/05/202405/05/2 023, 05/14/2022, 05/01/2022, Additional history exists Depression Screening 06/22/2024 06/22/2023 HbA1c 07/01/2024 12/31/2023, 09/03, 05/31/2023, Additional history exists CKD HGB USE SMARTSET 06191 08/03/202401/12, 01/13/2024, 08/03/2023, Additional history exists CKD PHOS USE SMARTSET 78944 08/23/202408/05, 08/03/2023, 07/02/2023, Additional history exists Mammogram 09/13/2024 09/14/2023, 09/02, 09/11/2022, Additional history exists Diabetic Foot Exam 09/29/2024 09/30/2023, 0 08/07/2022, 08/21/2021, Additional history exists O2 ASSESSMENT COMPLETED IN PAST YEAR FOR COPD 01/04/2025 01/05/2024 Sigmoidoscopy 04/29/2026 04/29/2021, 10/15/2020 DXA Scan 05/12/2026 [...] Discontinued 12/17/2022, 12/17/2022, 04/29/2021, Additional history exists HPV (Gardasil) Vaccine Aged Out No lo nger eligible based on patient's age to complete this topic MENINGOCOCCAL (MENACTRA/MENVEO) Aged Out No longer eligible based on patient's age to complete this topic documented as of this encounter Medical Devices Implanted Type Area Skin Fitter Device Identifier Shelf Expiration Date Model / Serial / Lot Stent Pancreatic Kelsin 5fr - [id number] Implanted:Qty: 1 on 06/17/2010 [facility] [employer] 03/18/2013 [id number] / / [id number] Stent 10fr 7cm - [id number] Implanted:Qty: 1 on 06/17/2010 at [facility] : RADHA [place] 01/15/2013 [id number] / / [id number] Description:pancreas documented as of this encounter Procedures Procedure Name Priority Date/Time Associated Diagnosis Comments DIFFERENTIAL, AUTOMATED Routine 01/13/2024 9:04 AM EDT Stage 3a chronic kidney disease (HCC) CBC Routine 01/13/2024 9:04 AM EDT Stage 3a chronic kidney disease (HCC) CBC Routine 01/13/2024 9:04 AM EDT Stage 3a chronic kidney disease (HCC) documented in this encounter Results * DIFFERENTIAL, AUTOMATED (01/13/2024 9:04 AM EDT) WBC 8.00 4.00 - 10.80 K/uL 01/13/2024 9:12 AM EDT [facility] [place] [facility] Neutrophils % 64.5 40.0 - 75.0 % 01/13/2024 9:12 AM EDT [facility] [place] [facility] Lymphocytes % 21.9 18.0 - 42.0 % 01/13/2024 9:12 AM EDT [facility] [place] [facility] Monocytes % 8.0 1.0 - 11.0 % 01/13/2024 9:12 AM EDT [facility] [place] [facility]02 Eosinophils % 4.6 0.0 - 6.0 % 01/13/2024 9:12 AM EDT [facility] [place] [facility] Basophils % 1.0 0.0 - 2.0 % 01/13/2024 9:12 AM EDT [facility] [place] [facility]02 Absolute Neutrophils 5.16 1.80 - 7.70 K/uL 01/13/2024 9:12 AM EDT [facility] [place] 56-02 Absolute Lymphocytes 1.75 1.00 - 4.80 K/ul 01/13/2024 9:12 AM EDT [facility] 56 Absolute Monocytes 0.64 0.00 - 1.10 K/uL 01/13/2024 9:12 AM EDT [facility] 56 Absolute Eosinophils 0.37 0.00 - 0.70 K/uL 01/13/2024 9:12 AM EDT [facility] 56 Absolute Basophils 0.08 0.00 - 0.20 K/uL 01/13/2024 9:12 AM EDT [facility] 56 Blood Venous blood specimen / Unknown Venipuncture / Unknown 01/13/2024 9:04 AM EDT 01/13/2024 9:04 AM EDT Galindo Jean MD LAB BLOOD ORDERABLES Performing Organization Address City/State/[facility] Co de Phone Number [facility] [address] [place] [address] * CBC (01/13/2024 9:04 AM EDT) WBC 8.00 4.00 - 10.80 K/uL 01/13/2024 9:12 AM EDT [facility] 56 RBC 4.96 3.85 - 5.15 M/uL 01/13/2024 9:12 AM EDT [facility] 56 HGB 13.8 12.0 - 15.3 g/dL 01/13/2024 9:12 AM EDT [facility] 56 HCT 41.2 36.0 - 45.2 % 01/13/2024 9:12 AM EDT [facility] 56 MCV 83.1 81.5 - 97.5 fL 01/13/2024 9:12 AM EDT [facility] 56 MCH 27.8 27.0 - 34.0 pg 01/13/2024 9:12 AM EDT [facility] 56 MCHC 33.5 32.0 - 36.0 g/dL 01/13/2024 9:12 AM EDT [facility] 56 RDW 14.0 11.5 - 15.5 % 01/13/2024 9:12 AM EDT [facility] 56 PLT 326 140 - 400 K/uL 01/13/2024 9:12 AM EDT [facility] 56 MPV 9.7 6.6 - 11.1 fL 01/13/2024 9:12 AM EDT [facility] 56 Blood Venous blood specimen / Unknown Venipuncture / Unknown 01/13/2024 9:04 AM EDT 01/13/2024 9:04 AM EDT Galindo Jean MD LAB BLOOD ORDERABLES [facility] [address] [place] [address] documented in this encounter Visit Diagnoses Diagnosis Elevated LFTs Other abnormal blood chemistry Decreased GFR Nonspecific abnormal results of kidney function study Stage 3a chronic kidney disease (HCC) Family history of colonic polyps documented in [...] Power of Attor tanika? No Care Teams Truck Repair Supervisor Relationship Specialty Start Date End Date Orlin Castro MD 200 [place] [address] PCP - General Internal Medicine 04/27/19 documented as of this encounter
--- OUTSIDE RECORDS SUMMARY | 2024-01-23 12:59 | External Medical Summary ---
Author Name Unknown Address Unknown Organization K01:[facility] - [address] [place] [address] Laboratory Report Ordering Provider Test Date Status LASHON VASQUEZ 01/13/2024 09:04:45 Final Deficient: <20 ng/mL
Ins ufficient: 20-29 ng/mL
Recommended/Optimum:30-50 ng/mL

Vitamin D intoxication is rare. If suspicious of Vitamin D toxicity, evaluation of serum Calcium and PTH is recommended. Observation Date Value Abnormality Reference (Units ) Status 25-OH Vitamin D total 01/13/2024 09:04:45 30 >19 (ng/mL) Final Performing Location [facility] - [address] [place] [address]
--- OUTSIDE RECORDS SUMMARY | 2024-01-23 12:59 | External Medical Summary ---
Author Name Unknown Address Unknown Organization K01:[facility] - [address] [place] [address] Laboratory Report Ordering Provider Test Date Status LASHON VASQUEZ 01/15/2024 09:48:05 Final Normal: <150 mg/ g creatinine
High: 150-500 mg/g creatinine
Very High: >500 mg/g creatinine
Nephrotic: >3000 mg/g creatinine Observation Date Value Abnormality Reference (Units ) Status Protein/Creatinine [Ratio] in Urine 01/15/2024 09:48:05 250 Above high normal <150 (mg/g ) Final Protein, Urine 01/15/2024 09:48:05 7 (mg/dL) Final Creatinine, Urine 01/15/2024 09:48:05 28 (mg/dL) Final Performing Location LAB[facility] - [address] [place] [address]
--- OUTSIDE RECORDS SUMMARY | 2024-01-23 12:59 | External Medical Summary ---
Author Name Unknown Address Unknown Organization K09:[facility] [place] [address] Laboratory Report Ordering Provider Test Date Status LASHON VASQUEZ 01/13/2024 09:04:45 Final Observation Date Value Abnormality Reference (Units ) Status SYNC LEUKOCYTES IN BLOOD BY AUTOMATED COUNT 01/13/2024 09:04:45 8.00 4.00-10.80 (K/uL) Final Segs 01/13/2024 09:04:45 64.5 40.0-75.0 (%) Final Lymphs % 01/13/2024 09:04:45 21.9 18.0-42.0 (%) Final Monos 01/13/2024 09:04:45 8.0 1.0-11.0 (%) Final Eosinophils 01/13/2024 09:04:45 4.6 0.0-6.0 (%) Final Basos 01/13/2024 09:04:45 1.0 0.0-2.0 (%) Final Absolute Segs 01/13/2024 09:04:45 5.16 1.80-7.70 (K/uL) Final Lymphs, absolute 01/13/2024 09:04:45 1.75 1.00-4.80 (K/ul) Final Monos, Abs 01/13/2024 09:04:45 0.64 0.00-1.10 (K/uL) Final Eos, Abs 01/13/2024 09:04:45 0.37 0.00-0.70 (K/uL) Final Basos, Abs 01/13/2024 09:04:45 0.08 0.00-0.20 (K/uL) Final Performing Location [facility] [place] [address]
--- OUTSIDE RECORDS SUMMARY | 2024-01-23 12:59 | External Medical Summary | Summary of Care ---
Author Name Unknown Organization [facility] Address [address] [facility] [place] [address] Phone [phone] Care Team Providers Care Project Development Engineer Name Role Phone Orlin Castro MD Primary Care Provider + Reason for Visit * Reason Comments Outpatient Testing Encounter Details Date Type Department Care Team (Late st Contact Info) Description 01/15/2024 9:50 AM EDT Laboratory Laboratory, [facility] [address] [facility] [place] [address] [place], Specimen Drop Off [facility] [address] [facility] [address] Stage 3a chronic kidney disease (HCC) Allergies Active Allergy Reactions Criticality Noted Date Comments Zolpidem Tartrate Psych complications 6 Rosuvastatin 04/05/2020 Elevated lft Hydrochlorothiazide 12/29/2019 brenda Nsaids Other (Please comment) 04/14/2016 Gastric ulcer with anemia documented as of this encounter (statuses as of 01/15/2024) Medications Medication Sig Dispensed Refills Start Date End Date Status ONETOUCH DELICA LANCETS FINE MISC Use to test blood sugar 4 times daily dx e11.9 400 Each 3 03/09/2019 Active Misc. Devices [facility]46[facility] 1 Each 10/02/2019 [...] B, by GOLD 2017 classification ([facility]) Inhale via nebulizer . Use as directed. 1 Each 1 12/30/2021 Active Additional Information Patient not taking.Reported on 01/05/2024 Ipratropium-Albuter ol 0.5-2.5 (3) MG/3ML Inhalation Solution (Duoneb)Indications :COPD, group B, by GOLD 2017 classification ([facility]) Inhale via nebulizer 3 mL every [...] goal of less than 7.0% ([facility]) Use to test blood glucose 4 [...] MOUTH EVERY DAY 180 Tablet 3 07/07/2023 01/02/20 25 Active Additional Information Patient taking differently: [...] as of this encounter (statuses as of 01/15/2024) Active Problems Problem Noted Date Diagnosed Date [...] as of this encounter (statuses as of 01/15/2024) Resolved Problems Problem Noted Date Diagnosed Date [...] as of this encounter (statuses as of 01/15/2024) Immunizations Name Administration Dates Next Due COVID-19 [...] 7:50 AM EDT Office Visit [facility]Marin 16 [facility] [place] [address] Rancho Chapman Jr., OD 16 [place] [address] 03/01/2024 8:30 AM EDT Office Visit Orthopaedics [facility] 132 [facility] [place] [address] Javon Bunn, [facility] [place] [address] 03/27/2024 8:40 AM EDT Office Visit Endocrinology [address] [place] [place] [phone] Nhung Monzon MD 100 [address] [facility] [place] [address] 04/24/2024 2:10 PM EDT [facility] [employer] [place] [address] Pharmacist1, [facility] [address] [place] [address] 04/24/2024 2:40 PM EDT Office Visit General Internal Medicine [facility] [place] [address] [place] [address] Orlin Castro MD [address] [place] [address] [address] 04/27/2024 11:55 AM EDT Hospital Encounter OR [facility], Operating Room, [facility] - 4th Floor [address] [place] [address] Raymond Campbell MD [address] [place] [address] 04/27/2024 11:55 AM EDT - 04/27/2024 12:45 PM EDT Surgery OR [facility], Operating Room, [facility] - 4th Floor 400 [facility] [place] [address] Raymond Campbell MD [address] [place] [address] COLONOSCOPY FLEXIBLE PROXIMAL DIAGNOSTIC 07/04/2024 9:20 AM EST Office Visit General Internal Medicine [place] [place] [address] [place] [address] Orlin Castro MD [address] [place] [address] 10/03/2024 8:40 AM EDT Office Visit Nephrology, [facility] [place] [address] [place] [address] [address] Galindo Jean MD [address] [place] [address] Pending Results Name Type Priority Associated Diagnoses Date /Time PROTEIN/ CREATININE RATIO, URINE Lab Routine Stage 3a chronic kidney disease (HCC) 01/15/2024 9:48 AM EDT Scheduled Procedures Name Priority Associated [...] Depression Screening 06/22/2024 06/22/2023 HbA1c 07/01/2024 12/31/2023, 0302/2024, 05/31/2023, Additional history exists GFR 07/15/2024 01/13/2024, 10/03, 08/23/2023, Additional history exists Mammogram 09/13/2024 09/14/2023, 09/02, 09/11/2022, Additional history exists Diabetic Foot Exam 09/29/2024 09/30/2023, 0 08/07/2022, 08/21/2021, Additional history exists O2 ASSESSMENT COMPLETED IN PAST YEAR FOR COPD 01/04/2025 01/05/2024 CKD HGB USE SMARTSET 19457 01/12/202501/12, 01/13/2024, 08/03/2023, Additional history exists CKD PHOS USE SMARTSET 70696 01/12/202501/02, 08/23/2023, 08/03/2023, Additional history exists Sigmoidoscopy [...] this encounter Medical Devices Implanted Type Area Carpentry Instructor Device Identifier Shelf Expiration Date Model / Serial / Lot Stent Pancreatic Geenen 5fr - [id number] Implanted:Qty: 1 on 06/17/2010 at OR [facility] [employer] 03/18/2013 [id number] / / [id number] Stent 10fr 7cm - [id number] Implanted:Qty: 1 on 06/17/2010 at OR [facility] [employer] : RADHA [place] 01/15/2013 [id number] / / [id number] Description:pancreas documented as of this encounter Procedures Procedure Name Priority Date/Time Associated Diagnosis Comments URINALYSIS WITH MICROSCOPIC EXAM Routine 01/15/2024 9:48 AM EDT Stage 3a chronic kidney disease (HCC) documented in this encounter Results * URINALYSIS WITH MICROSCOPIC EXAM (01/15/2024 9:48 AM EDT) Color, Urine Yellow Colorless, Light Yellow, Yellow, Dark Yellow 01/15/2024 10:02 AM EDT [facility] [place] 57-10 Clarity, Urine Clear Clear 01/15/2024 10:02 AM EDT [facility] [place] 57-10 Glucose, Urine Negative Negative mg/dL 01/15/2024 10:02 AM EDT [facility] [place] 57-10 Bilirubin, Urine Negative Negative 01/15/2024 10:02 AM EDT [facility] [place] 57-10 Ketone, Urine Negative Negative mg/dL 01/15/2024 10:02 AM EDT [facility] [place] 57-10 Specific Hector, Urine 1.015 1.003 - 1.030 01/15/2024 10:02 AM EDT [facility] [place] 57-10 Blood, Urine Negative Negative 01/15/2024 10:02 AM EDT [facility] [place] 57-10 pH, Urine 6.0 5.0 - 7.5 Units 01/15/2024 10:02 AM EDT [facility] [place] 57-10 Protein, Urine Negative Negative mg/dL 01/15/2024 10:02 AM EDT [facility] [place] 57-10 Urobilinogen, Urine 0.2 0.2, 1.0 mg/dL 01/15/2024 10:02 AM EDT [facility] [place] 57-10 Nitrite, Urine Negative Negative 01/15/2024 10:02 AM EDT [facility] [place] 57-10 Esterase, Urine Negative Negative 01/15/2024 10:02 AM EDT [facility] [place] 57-10 RBC, Urine 0-2 0 - 2 /HPF 01/15/2024 10:02 AM EDT [facility] [place] 57-10 WBC, Urine 0-2 0 - 2 /HPF 01/15/2024 10:02 AM EDT [facility] [place] 57-10 Bacteria, Urine 0-25 0 - 25 /HPF 01/15/2024 10:02 AM EDT [facility] [place] 57-10 Urine Non-blood Collection / Unknown 01/15/2024 9:48 AM EDT 01/15/2024 9:48 AM EDT Galindo Jean MD LAB URINE ORDERABLES [facility] [place] [facility]-10 [address] [place] [address] documented in this encounter Visit Diagnoses Diagnosis Stage 3a chronic kidney disease (HCC) Family [...] Power of Attor tanika? No Care Teams Project Development Engineer Relationship Specialty Start Date End Date Orlin Castro MD [address] [place] [address] PCP - General Internal Medicine 04/27/19 documented as of this encounter
--- OUTSIDE RECORDS SUMMARY | 2024-01-23 12:59 | External Medical Summary ---
Author Name Unknown Address Unknown Organization K09:[facility] [place] [address] [place] [address] Laboratory Report Ordering Provider Test Date Status RICHARD BEYER 01/13/2024 09:04:45 Final Observation Date Value Abnormality Reference (Units ) Status Protein 01/13/2024 09:04:45 7.0 6.0-8.3 (g /dL) Final Performing Location [facility] [place] [address] [place] [address]
--- OUTSIDE RECORDS SUMMARY | 2024-01-23 12:59 | External Medical Summary | Summary of Care ---
Author Name Unknown Organization [facility] Address [address] [facility] [place] [address] Phone [phone] Care Team Providers Care Coiled Tubing Supervisor Name Role Phone Orlin Castro MD Primary Care Provider + Reason for Visit * Reason Comments Diabetes Follow-Up Dosage Adjustment In Person (Anticoag Cl inic) Encounter Details Date Type Department Care Team (Late st Contact Info) Description 12/31/2023 10:00 AM EDT Office Visit Pharmacy, [facility] [address] [facility] [place] [address] Pharmacist1, [facility] [address] [facility] [place] [address] Type 2 diabetes mellitus with hemoglobin A1c goal of less than 7.0% ([facility])* Allergies Active Allergy Reactions Criticality Noted Date Comments Zolpidem Tartrate Psych complications 6 Rosuvastatin 04/05/2020 Elevated lft Hydrochlorothiazide 12/29/2019 brenda Nsaids Other (Please comment) 04/14/2016 Gastric ulcer with anemia documented as of this encounter (statuses as of 12/31/2023) Medications Medication Sig Dispensed Refills Start Date End Date Status ONETOUCH DELICA LANCETS FINE MISC Use to test blood sugar 4 times daily dx e11.9 400 Each 3 9 Active Misc. Devices MISC Tracheostomy Care Kit #4601 1 Each 0 Active Vitamin B-12 1000 MCG Oral Tablet Take 1 Tab by mouth daily. 90 Tab 3 1 Active OneTouch Verio Flex System w/Device Kit Use as directed. To test blood sugars up to 4 times a day Dx E11.22 1 Kit 1 Active Misc. Devices Laryngectomy tube, size 10LGT 3 Each 2 Active Misc. Devices Velcro Trach Ties for Laryngectomy Tube 15 Each 11 2 Active Compressor NebulizerIndicatio ns:COPD, group B, by GOLD 2017 classification ([facility]) Inhale via nebulizer . Use as directed. 1 Each 1 2 Active Ipratropium-Albute rol 0.5-2.5 (3) MG/3ML Inhalation Solution (Duoneb)Indication s:COPD, group B, by GOLD 2017 classification ([facility]) Inhale via nebulizer 3 mL every 6 hours as needed for Wheezing. 360 mL 1 2 Active Breathe Comfort Humidifier Use as directed. Laryngectomy status. Use for humidification to Trach site 1 Each 2 3 Active Sodium Chloride 7 % Inhalation Nebulization Solution (Hyper-Allen) 4 ML VIA NEBULIZER TWICE DAILY FOR RESP. FOR 1 WEEK ONLY USE FOR 1 WEEK 3 Active Formoterol Fumarate 20 MCG/2ML Inhalation Nebulization Solution 3 Active Budesonide 0.25 MG/2ML Inhalation Suspension (Pulmicort) 0.25 mg. 3 Active OneTouch Verio In Vitro Strip (Glucose Blood)Indications: Type 2 diabetes mellitus with hemoglobin A1c goal of less than 7.0% ([facility]) Use to test blood glucose 4 times daily. DX: E11.9 400 Strip 3 3 Active Levothyroxine Sodium 200 MCG Oral Tablet (Levoxyl)Indicatio ns:Postsurgical hypothyroidism TAKE 1 TABLET BY MOUTH DAILY AT LEAST 30 MINUTES PRIOR TO FIRST MEAL OF THE DAY OR OTHER MEDICATIONS 90 Tablet 3 3 Active Misc. Devices Electrolarynx Medically necessary 1 Each 3 Active Potassium Chloride ER 10 MEQ Oral Capsule Extended Release Take 20 Milliequivalent by mouth in the morning. 3 Active Losartan Potassium 100 MG Oral Tablet (Cozaar) TAKE ONE TABLET BY MOUTH EVERY DAY 180 Tablet 3 4 07/06/19 25 Active Ferrous Sulfate 325 (65 Fe) MG Oral Tablet (Feosol) TAKE ONE TABLET THREE TIMES DAILY 270 Tablet 1 4 Active Sucralfate 1 GM Oral Tablet (Carafate)Indicati ons:Gastritis, bile acid reflux Take by mouth 1 Tablet in the morning AND 1 Tablet at noon AND 1 Tablet in the evening AND 1 Tablet before bedtime. 360 Tablet 3 4 Active Pantoprazole Sodium 40 MG Oral Tablet Delayed Release (Protonix) TAKE ONE TABLET BY MOUTH EVERY DAY 90 Tablet 3 4 09/06/19 25 Active Carvedilol 25 MG Oral Tablet (Coreg)Indications :HTN, goal below 140/90 TAKE ONE TABLET BY MOUTH 2 TIMES A DAY WITH MORNING AND EVENING MEALS 180 Tablet 3 4 09/07/19 25 Active amLODIPine Besylate 10 MG Oral Tablet (Norvasc)Indicatio ns:Essential hypertension with goal blood pressure less than 140/90 TAKE ONE TABLET BY MOUTH EVERY DAY. 90 Tablet 3 4 09/29/19 25 Active metFORMIN HCl ER 500 MG Oral Tablet Extended Release 24 Hour (Glucophage XR)Indications:Typ e 2 diabetes mellitus with hemoglobin A1c goal of less than 7.0% (HCC) Take 1 Tablet by mouth two times a day. 180 Tablet 3 4 Active Repaglinide 2 MG Oral Tablet (Prandin)Indicatio ns:Type 2 diabetes mellitus with hemoglobin A1c goal of less than 7.0% (HCC) Take 1 tablet by mouth in the morning with breakfast and 1 tablet with supper. 180 Tablet 3 4 Active Cyclobenzaprine HCl 10 MG Oral Tablet (Flexeril)Indicati ons:Spasm of muscle TAKE ONE TABLET BY MOUTH AT BEDTIME NEEDED FOR MUSCLE SPASMS. 90 Tablet 3 4 Active Ezetimibe 10 MG Oral Tablet (Zetia)Indications :Mixed hyperlipidemia TAKE ONE TABLET BY MOUTH EVERY DAY IN THE MORNING 90 Tablet 3 4 11/26/19 25 Active Repaglinide 1 MG Oral Tablet (Prandin)Indicatio ns:Type 2 diabetes mellitus with hemoglobin A1c goal of less than 7.0% (HCC) TAKE ONE-HALF TABLET BY MOUTH EVERY DAY WITH EVENING SNACK 45 Tablet 3 4 Active Repaglinide 1 MG Oral Tablet (Prandin)Indicatio ns:Type 2 diabetes mellitus with hemoglobin A1c goal of less than 7.0% (HCC) TAKE ONE-HALF TABLET BY MOUTH EVERY DAY WITH EVENING SNACK 45 Tablet 3 4 12/31/19 24 Discontinu ed(Refill) documented as of this encounter (statuses as of 12/31/2023) Active Problems Problem Noted Date Diagnosed Date [...] as of this encounter (statuses as of 12/31/2023) Resolved Problems Problem Noted Date Diagnosed Date [...] as of this encounter (statuses as of 12/31/2023) Immunizations Name Administration Dates Next Due COVID-19 [...] of this encounter Progress Notes * Maximo Lion RPh - 12/31/2023 10:05 AM EDT Medication Therapy [facility] - Diabetes Management Progress Note Mallory Soto, identified by name and date of , is a 68 year old female being seen for diabetes management/education. Patient presents for return diabetic visit. DIABETES: Current diabetic medications: Metformin ER 500 mg - 1 tablet twice daily Prandin 1mg - 2 tablet before breakfast and 2 tablet with supper plus 1/2 tab with evening snack (when eating) Medication Injection Site: N/A Lifestyle: Diet: unchanged History of Treatment Barriers: Lifestyle: None Therapy considerations: History of Medullary Thyroid Cancer - GLP-1 contraindicated Medication: Intolerance to Jardiance - frequent urination; Stopped Tradjenta due to endocrinology recommendation 12/04/19 recommending against use of Tradjenta in patient due to potential increased risk of pancreatic cancer (pt has hx of pancreatic cancer) Glucose Review/SMBG: Readings obtained from patient documented BG logbook Pre am Pre Lunch Pre pm HS 30-Oct 124 139 147 119 109 169 147 136 120 90 130 107 132 109 120 134 156 130 127 118 121 108 117 111 153 136 116 109 147 136 118 112 132 291 168 159 No Prandin 216 178 209 218 207 218 168 159 159 220 201 168 236 218 256 179 190 215 209 186 291 218 202 178 191 218 212 169 296 310 199 152 176 191 228 126 197 218 201 223 207 196 189 201 199 218 320 299 217 196 206 147 209 279 224 155 176 201 158 147 136 151 231 189 193 186 133 178 218 197 201 186 190 198 176 153 205 218 191 188 170 139 140 115 207 118 127 130 218 150 130 120 207 183 146 130 139 218 167 142 107 176 136 118 169 207 178 209 150 221 208 121 160 236 218 236 249 231 187 156 173 158 220 201 167 169 236 179 132 138 132 117 151 190 136 122 140 126 190 151 151 173 131 111 144 181 122 139 194 224 84 112 157 86 109 166 184 173 112 70 171 91 108 147 186 144 186 228 130 120 156 161 130 196 168 151 175 107 121 136 171 130 142 136 176 129 143 119 199 108 99 119 150 139 127 133 136 95 119 136 231 149 w/Prandin 156 155 146 141 Pre am Pre Lunch Pre pm HS Average 175 174 165 153 Hi 296 310 320 299 Lo 107 86 84 70 Range 189 224 236 229 Hypoglycemia: Does your blood sugar go below 70 mg/dL? No. She was symptomatic when BG was at 70. Hyperglycemia symptoms present: polydipsia Goal<7 Recent Labs Units 12/31/23 0927 09/30/23 0913 05/31/23 1031 HEMOGLOBIN A1C POCT - [facility] % 8.3* 7.3* 7.1* Recent Labs Units 10/13/23 0906 08/23/23 0945 08/03/23 1404 ESTIMATED GLOMERULAR FILTRATION RATE - [facility] mL/min 46* 74 54* CREATININE - [facility] mg/dL 1.3* 0.9 1.1* Lab Results Component Value Date/Time CREATININE - [facility] 1.3 (H) 10/13/2023 09:06 AM CREATININE - [facility] 0.9 08/23/2023 09:45 AM CREATININE - [facility] 1.1 (H) 08/03/2023 02:04 PM CREATININE - [facility] 1.2 (H) 05/01/2020 10:54 AM CREATININE - [facility] 1.4 (H) 04/22/2020 08:57 AM CREATININE - [facility] 1.2 (H) 03/12/2020 09:52 AM CREATININE, 24-HOUR URINE 1.00 09/26/2021 08:19 AM CREATININE, RANDOM URINE - [facility] 68 08/03/2023 02:04 PM CREATININE, RANDOM URINE - [facility] 140 05/05/2023 09:02 AM CREATININE, RANDOM URINE - [facility] 83 05/14/2022 12:16 PM CREATININE, RANDOM URINE - [facility] 409 10/05/2019 09:51 AM CREATININE, RANDOM URINE - [facility] 32 07/21/2019 01:35 PM CREATININE, RANDOM URINE - [facility] 181 12/29/2018 08:32 AM HYPERTENSION: Patient on ACEi/ARB: yes, Losartan 100mg daily BP Readings from Last 3 Encounters: 09/30/23 110/70 09/28/23 128/72 08/23/23 140/80 Blood pressure at goal: yes HYPERLIPIDEMIA: Patient is taking moderate or high intensity statin: No, statin allergy Current regimen: Zetia 10mg daily Goal statin intensity: high The 10-year ASCVD risk score (Ellie CRAIG, et al., 2019) is: 11.2% Values used to calculate the score: Age: 68 years Sex: Female Is Non- : No Diabetic: Yes Tobacco smoker: No Systolic Blood Pressure: 110 mmHg Is BP treated: Yes HDL Cholesterol: 59 mg/dL Total Cholesterol: 153 mg/dL Recent Labs Units 10/13/23 0906 10/26/22 1228 03/06/22 0949 LDL CHOLESTEROL (CALCULATED) - [facility] mg/dL 80 95 104 HEALTH MAINTENANCE REVIEW: Health Maintenance Due Topic Date Due *COPD SEVERITY VERIFIED BY PFT Never done COVID-19 Vaccine ( season) 2023 Colorectal Cancer Screening 12/18/2023 Diabetic Eye Exam 01/13/2024 ASSESSMENT & PLAN: ICD-10-CM 1. Type 2 diabetes mellitus with hemoglobin A1c goal of less than 7.0% ([facility]) E11.9 BG Readings - Blood sugars controlled. Elevated when she was out of Prandin. A1C 8.3 today. Medications - Reviewed current regimen, patient is not adherent to regimen. See above Diet, Exercise, Lifestyle - No significant lifestyle changes since last visit. Discussed with patient today. Patient is agreeable to SMBG 4 time(s) daily. Patient aware to contact clinic if any hypoglycemia before next visit. MEDICATION CHANGES: no change Diabetic Medications: Metformin ER 500 mg - 1 tablet twice daily Prandin 1mg - 2 tablet before breakfast and 2 tablet with supper plus 1/2 tab with evening snack (when eating) HEALTH MAINTENANCE INTERVENTIONS: Labs: Ordered & Scheduled: Urine Microalbumin Immunizations: Up to Date Foot Exam: Up to Date Eye Exam: Up to Date Annual Wellness Visit: Up to Date FOLLOW UP: Return to clinic in 4 months 04/24/2024 Maxmio Burch RPh, JULITO Clinical Pharmacist - Manager Control Medication Therapy Management Clinic 12/31/2023, 10:07 AM documented in this encounter Plan of Treatment Upcoming Encounters Date Type Department Care Team (Latest Contact Info) Description 02/17/2024 7:50 AM EDT Office Visit OptometryMarin [address] [place] [address] Rancho Chapman Jr., OD [address] [place] [address] 03/01/2024 8:30 AM EDT Office Visit Orthopaedics [facility] [address] [place] [address] Javon Bunn DO [address] [place] [address] 03/27/2024 8:40 AM EDT Office Visit Endocrinology [address] [place] [place] [phone] Nhung Monzon MD [address] [place] [address] 04/24/2024 2:10 PM EDT Office Visit Pharmacy, [facility] [address] [place] [address] Pharmacist1, [facility] [address] [place] [address] 04/24/2024 2:40 PM EDT Office Visit General Internal Medicine [facility] [address] [facility] [address] [place] [address] Orlin Castro MD [address] [facility] [address] [place] [address] 04/27/2024 11:55 AM EDT Hospital Encounter [facility], Operating Room, [facility] - 4th Floor [address] [place] [address] Raymond Campbell MD [address] [place] [address] 04/27/2024 11:55 AM EDT - 04/27/2024 12:45 PM EDT Surgery [facility], Operating Room, [facility] - 4th Floor [address] [place] [address] Raymond Campbell MD [address] [place] [address] COLONOSCOPY FLEXIBLE PROXIMAL DIAGNOSTIC 05/08/2024 11:20 AM EST Office Visit Nephrology, [facility] [address] [facility] [place] [address] Galindo Jean MD [address] [facility] [address] [place] [address] 07/04/2024 9:20 AM EST Office Visit General Internal Medicine [facility] [address] [facility] [place] [address] Orlin Castro MD [address] [facility] [address] [place] [address] Scheduled Procedures Name Priority Associated Diagnoses Date/Ti [...] 08/05, 08/03/2023, Additional history exists Albumin/Creatinine Ratio 05/05/2024 023, 05/14/2022, 05/01/2022, Additional history exists Depression Screening 06/22/2024 06/22/2023 HbA1c 07/01/2024 12/31/2023, 09/03, 05/31/2023, Additional history exists CKD HGB USE SMARTSET 41363 08/03/202408/03, 08/03/2023, 07/02/2023, Additional history exists CKD PHOS USE SMARTSET 86687 08/23/202408/05, 08/03/2023, 07/02/2023, Additional history exists Mammogram 09/13/2024 09/14/2023, 09/02, 09/11/2022, Additional history exists Diabetic Foot Exam 09/29/2024 09/30/2023, 0 08/07/2022, 08/21/2021, Additional history exists O2 ASSESSMENT COMPLETED IN PAST YEAR FOR COPD 09/29/2024 09/30/2023 Sigmoidoscopy 04/29/2026 04/29/2021, 10/15/2020 DXA Scan 05/12/2026 [...] Discontinued 12/17/2022, 12/17/2022, 04/29/2021, Additional history exists Influenza Vaccine (FLU shot) Completed 03/18/2023, 03/04/2022, 03/21/2021, Additional history exists GARDASIL-HPV IMMUNIZATION SERIES Aged Out No longer eligible based on patient's age to complete this topic MENINGOCOCCAL (MENACTRA/MENVEO) Aged Out No longer eligible based on patient's age to complete this topic documented as of this encounter Medical Devices Implanted Type Area Carton Liner Device Identifier Shelf Expiration Date Model / Serial / Lot Stent Pancreatic Geenen 5fr - [id number] Implanted:Qty: 1 on 06/17/2010 at [place] [facility] [place] [employer] 03/18/2013 [id number] / / [id number] Stent 10fr 7cm - [id number] Implanted:Qty: 1 on 06/17/2010 at [place] [facility] [place] [employer] : RADHA [place] 01/15/2013 [id number] / / [id number] Description:pancreas documented as of this encounter Procedures Procedure Name Priority Date/Time Associated Diagnosis Comments HEMOGLOBIN A1C, POINT OF CARE Routine 12/31/2023 9:27 AM EDT Type 2 diabetes mellitus with hemoglobin A1c goal of less than 7.0% (HCC) documented in this encounter Results * (ABNORMAL) HEMOGLOBIN A1C, POINT OF CARE (12/31/2023 9:27 AM EDT) Hemoglobin A1c 8.3(H) 4.0 - 5.6 % 12/31/2023 10:16 AM EDT [facility] 56-02 Blood 12/31/2023 9:2 7 AM EDT 12/31/2023 10:16 AM EDT Maxmio Kiersten V, RPh LAB POINT OF CARE TE ST DOCKED DEVICE UNSOLICITED RESULTS [facility] [address] [facility] [address] documented in this encounter Visit Diagnoses Diagnosis Type 2 diabetes mellitus with hemoglobin A1c goal of less than 7.0% ([facility])- Primary Family history of colonic polyps documented in [...] Power of Attor tanika? No Care Teams Coiled Tubing Supervisor Relationship Specialty Start Date End Date Orlin Castro MD [address] [facility] [address] PCP - General Internal Medicine 04/27/19 documented as of this encounter
--- OUTSIDE RECORDS SUMMARY | 2024-01-23 12:59 | External Medical Summary ---
Author Name Unknown Address Unknown Organization [facility] [address] [place] [address] Laboratory Report Ordering Provider Test Date Status LASHON VASQUEZ 01/15/2024 09:48:05 Final Observation Date Value Abnormality Reference (Units ) Status Color of Urine by Auto 01/15/2024 09:48:05 Yellow Colorless, Light Yellow, Yellow, Dark Yellow Final Clarity, Urine 01/15/2024 09:48:05 Clear Clear Final Glucose [Mass/volume] in Urine by Automated test strip 01/15/2024 09:48:05 Negative Negative (mg/dL) Final Bilirubin.total [Presence] in Urine by Automated test strip 01/15/2024 09:48:05 Negative Negative Final Ketones [Mass/volume] in Urine by Automated test strip 01/15/2024 09:48:05 Negative Negative (mg/dL) Final Specific gravity, Urine 01/15/2024 09:48:05 1.015 1.003-1.030 Final Hemoglobin [Presence] in Urine by Automated test strip 01/15/2024 09:48:05 Negative Negative Final pH, Urine 01/15/2024 09:48:05 6.0 5.0-7.5 (Units) Final Protein [Mass/volume] in Urine by Automated test strip 01/15/2024 09:48:05 Negative Negative (mg/dL) Final Urobilinogen [Mass/volume] in Urine by Automated test strip 01/15/2024 09:48:05 0.2 0.2, 1.0 (mg/dL) Final Nitrite [Presence] in Urine by Automated test strip 01/15/2024 09:48:05 Negative Negative Final Leukocyte esterase [Presence] in Urine by Automated test strip 01/15/2024 09:48:05 Negative Negative Final RBC, Urine 01/15/2024 09:48:05 0-2 0-2 (/HPF) Final WBC, Urine 01/15/2024 09:48:05 0-2 0-2 (/HPF) Final Bacteria [#/area] in Urine sediment by Microscopy high power field 01/15/2024 09:48:05 0-25 0-25 (/HPF) Final Performing Location [facility] [address] [facility] [address]
--- OUTSIDE RECORDS SUMMARY | 2024-01-23 12:59 | External Medical Summary | Summary of Care ---
Author Name Unknown Organization [facility] Address [address] [place] [address] Phone [phone] Care Team Providers Care Retort Unloader Name Role Phone Olrin Castro MD Primary Care Provider + Reason for Visit * Reason Comments Return Visit Chronic Kidney Disease (CKD) Hypertension Encounter Details Date Type Department Care Team (Late st Contact Info) Description 01/05/2024 10:20 AM EDT Office Visit [facility] [address] [place] [address] Galindo Jean MD [address] [facility] [place] [address] Stage 3a chronic kidney disease (HCC)*; Type 2 diabetes mellitus with hemoglobin A1c goal of less than 7.0% (HCC); HTN, goal below 140/80 Allergies Active Allergy Reactions Criticality Noted Date Comments Zolpidem Tartrate Psych complications 6 Rosuvastatin 04/05/2020 Elevated lft Hydrochlorothiazide 12/29/2019 brenda Nsaids Other (Please comment) 04/14/2016 Gastric ulcer with anemia documented as of this encounter (statuses as of 01/05/2024) Medications Medication Sig Dispensed Refills Start Date [...] s:COPD, group B, by GOLD 2017 classification ([facility]) Inhale via nebulizer . Use as directed. 1 Each 1 12/30/2021 Active Additional Information Patient not taking.Reported on 01/05/2024 Ipratropium-Albuter ol 0.5-2.5 (3) MG/3ML Inhalation Solution (Duoneb)Indications :COPD, group B, by GOLD 2017 classification ([facility]) Inhale via nebulizer 3 mL [...] Inhalation Suspension (Pulmicort) 0.25 mg. 2022 Active Optarosio In Vitro Strip (Glucose Blood)Indications:T ype 2 diabetes mellitus with hemoglobin A1c goal of less than 7.0% ([facility]) Use to test blood glucose [...] EVERY DAY 180 Tablet 3 07/07/2023 07/06/19 25 Active Additional Information Patient taking differently: [...] TABLET BY MOUTH EVERY DAY 90 Tablet 09/06/2023 09/06/19 25 Active Additional Information Patient not taking.Reported on 01/05/2024 Carvedilol 25 MG Oral Tablet (Coreg)Indications: HTN, goal below 140/90 TAKE ONE TABLET BY MOUTH 2 TIMES A DAY WITH MORNING AND EVENING MEALS 180 Tablet 09/07/2023 09/07/19 25 Active amLODIPine Besylate 10 MG Oral Tablet (Norvasc)Indication s:Essential hypertension with goal blood pressure less than 140/90 TAKE ONE TABLET BY MOUTH EVERY DAY. 90 Tablet 09/29/2023 09/29/19 Active Additional Information Patient taking differently: Daily(AM), Reported on 01/05/2024 metFORMIN HCl ER 500 MG Oral Tablet Extended Release 24 Hour (Glucophage XR)Indications:Type 2 diabetes mellitus with hemoglobin A1c goal of less than 7.0% (HCC) Take 1 Tablet by mouth two times a day. 180 Tablet 11/17/2023 Active Repaglinide 2 MG Oral Tablet (Prandin)Indication s:Type 2 diabetes mellitus with hemoglobin A1c goal of less than 7.0% (HCC) Take 1 tablet by mouth in the morning with breakfast and 1 tablet with supper. 180 Tablet 11/17/2023 Active Cyclobenzaprine HCl 10 MG Oral Tablet (Flexeril)Indicatio ns:Spasm of muscle TAKE ONE TABLET BY MOUTH AT BEDTIME NEEDED FOR MUSCLE SPASMS. 90 Tablet 11/29/2023 Active Ezetimibe 10 MG Oral Tablet (Zetia)Indications: Mixed hyperlipidemia TAKE ONE TABLET BY MOUTH EVERY DAY IN THE MORNING 90 Tablet 3 11/26/2023 11/26/19 Active Repaglinide 1 MG Oral Tablet (Prandin)Indication s:Type 2 diabetes mellitus with hemoglobin A1c goal of less than 7.0% (HCC) TAKE ONE-HALF TABLET BY MOUTH EVERY DAY WITH EVENING SNACK 45 Tablet 3 12/31/2023 Active documented as of this encounter (statuses as of 01/05/2024) Active Problems Problem Noted Date Diagnosed Date [...] as of this encounter (statuses as of 01/05/2024) Resolved Problems Problem Noted Date Diagnosed Date [...] as of this encounter (statuses as of 01/05/2024) Immunizations Name Administration Dates Next Due COVID-19 [...] Sign Reading Time Taken Comments Blood Pressure 119/70 01/05/2024 10:05 AM EDT Pulse 65 01/05/2024 10:05 AM EDT Temperature 36.6 C (97.8 F) 01/05/2024 1 0:05 AM EDT Respiratory Rate 20 01/05/2024 10:0 5 AM EDT Oxygen Saturation 93% 01/05/2024 10: 05 AM EDT Inhaled Oxygen Concentration - - Weight 81.1 kg (178 lb 12.8 oz) 024 10:05 AM EDT Height - - Body Mass Index 30.69 09/30/2023 10:33 AM EDT documented in this encounter Functional [...] as of this encounter Progress Notes * Galindo Jean MD - 01/05/2024 10:23 AM EDT Chief Complaint Patient presents with Return Visit Chronic Kidney Disease (CKD) Hypertension HPI: 68-year-old female was at high blood pressure for many years. She started treatment for diabetes December 2018 after she was found to have a hemoglobin A1c of 12.9% and a glucose of 459. Other medical problems includes history of vocal cord cancer status post resection ( uses a tracheal microphonefor speaking), hypothyroidism and hyperlipidemia. However no childhood kidney disease or family history of kidney disease. Since last visit ---no hospital admissions since June 2023 and for the last few months she has been stable without any respiratory issues. She had multiple hospital admissions in 2022 for respiratory issues most recently in June 2023. Kidney function does fluctuate because of acute intermittent illnesses At this time she feels completely normal. Denies nausea vomiting chest pain shortness of breath orthopnea PND or lower extremity edema. She has now been taken off Jardiance completely NSAID No Renal Stone No Herbal Medication No Urinary Complaints No Current Outpatient Medications Medication Sig Dispense Refill marinanowTOUCH DELICA LANCETS FINE MISC Use to test [...] Ties for Laryngectomy Tube 15 Each 11 Ipratropium-Albuterol 0.5-2.5 (3) MG/3ML Inhalation Solution (Duoneb) Inhale via nebulizer 3 mL every 6 hours as needed for Wheezing. 360 mL 1 Sodium Chloride 7 % Inhalation Nebulization Solution (Hyper-Allen) 4 ML VIA NEBULIZER TWICE DAILY FORRESP. FOR 1 WEEK ONLY USE FOR 1 WEEK Formoterol Fumarate 20 MCG/2ML Inhalation Nebulization Solution ThinkGridToSynapSense Verio In Vitro Strip (Glucose Blood) Use to test blood glucose 4 times daily. DX: E11.9 400 Strip 3 Levothyroxine Sodium 200 MCG Oral Tablet (Levoxyl) TAKE 1 TABLET BY MOUTH DAILY AT LEAST 30 MINUTESPRIOR TO FIRST MEAL OF THE DAY OR OTHER MEDICATIONS 90 Tablet 3 Misc. Devices Electrolarynx Medically necessary 1 Each 0 Potassium Chloride ER 10 MEQ Oral Capsule Extended Release Take 20 Milliequivalent by mouth in the morning. Losartan Potassium 100 MG Oral Tablet (Cozaar) TAKE ONE TABLET BY MOUTH EVERY DAY (Patient taking differently: daily.) 180 Tablet 3 Ferrous Sulfate 325 (65 Fe) MG Oral Tablet (Feosol) TAKE ONE TABLET THREE TIMES DAILY 270 Tablet 1 Carvedilol 25 MG Oral Tablet (Coreg) TAKE ONE TABLET BY MOUTH 2 TIMES A DAY WITH MORNING AND EVENING MEALS 180 Tablet 3 amLODIPine Besylate 10 MG Oral Tablet (Norvasc) TAKE ONE TABLET BY MOUTH EVERY DAY. (Patient takingdifferently: daily.) 90 Tablet 3 metFORMIN HCl ER 500 MG Oral Tablet Extended Release 24 Hour (Glucophage XR) Take 1 Tablet by mouthtwo times a day. 180 Tablet 3 Repaglinide 2 MG Oral Tablet (Prandin) Take 1 tablet by mouth in the morning with breakfast and 1 tablet with supper. 180 Tablet 3 Cyclobenzaprine HCl 10 MG Oral Tablet (Flexeril) TAKE ONE TABLET BY MOUTH AT BEDTIME NEEDED FOR MUSCLE SPASMS. 90 Tablet 3 Ezetimibe 10 MG Oral Tablet (Zetia) TAKE ONE TABLET BY MOUTH EVERY DAY IN THE MORNING 90 Tablet 3 Repaglinide 1 MG Oral Tablet (Prandin) TAKE ONE-HALF TABLET BY MOUTH EVERY DAY WITH EVENING SNACK 45 Tablet 3 Compressor Nebulizer Inhale via nebulizer . Use as directed. (Patient not taking: Reported on 01/05/2024) 1 Each 1 Breathe Comfort Humidifier Use as directed. Laryngectomy status. Use for humidification to Trach site (Patient not taking: Reported on 01/05/2024) 1 Each 2 Budesonide 0.25 MG/2ML Inhalation Suspension (Pulmicort) 0.25 mg. (Patient not taking: Reported on 01/05/2024) Sucralfate 1 GM Oral Tablet (Carafate) Take by mouth 1 Tablet in the morning AND 1 Tablet at noon AND 1 Tablet in the evening AND 1 Tablet before bedtime. (Patient not taking: Reported on 01/05/2024) 360 Tablet 3 Pantoprazole Sodium 40 MG Oral Tablet Delayed Release (Protonix) TAKE ONE TABLET BY MOUTH EVERY DAY(Patient not taking: Reported on 01/05/2024) 90 Tablet 3 No current facility-administered medications for this visit. 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 FAP--[facility] Family history of familial adenomatous polyposis 03/10/2019 [...] cancer (HCC) Papillary thyroid carcinoma (HCC) 09/24/2015 Thyroid cancer (HCC) TUBULAR ADENOMA- duodenum 07/07/2010 Past Surgical History: Procedure Laterality Date ANESTH, UPPER GI ENDOSCOPIC PROCS 06/06/2010 ANESTH, UPPER GI ENDOSCOPIC PROCS 06/06/2010 Dr Allen & Dr ESCOBEDO at [facility] ANESTH, UPPER GI ENDOSCOPIC PROCS 08/18/2010 ANESTHESIA FOR UPPER GI ENDOSCOPIC PROCEDURES (ERCP OR UPPER GI) performed by ALICIA MATHEWS at [facility] BREAST BIOPSY Left Benign BREAST BIOPSY Left Benign BREAST BIOPSY Left Benign COLONOSCOPY, DIAGNOSTIC (RECTUM) 09/10/2011 COLONOSCOPY FLEXIBLE PROXIMAL DIAGNOSTIC performed by ALICIA MATHEWS at [facility] COLONOSCOPY, DIAGNOSTIC (RECTUM) 01/13/2012 COLONOSCOPY FLEXIBLE PROXIMAL DIAGNOSTIC performed by Alicia Mathews DO at [facility] COLONOSCOPY, DIAGNOSTIC (RECTUM) 07/21/2012 COLONOSCOPY FLEXIBLE PROXIMAL DIAGNOSTIC performed by Alicia Mathews DO at [facility] COLONOSCOPY, DIAGNOSTIC (RECTUM) 01/13/2013 COLONOSCOPY FLEXIBLE PROXIMAL DIAGNOSTIC performed by Alicia Mathews DO at [facility] COLONOSCOPY, DIAGNOSTIC (RECTUM) 01/19/2014 COLONOSCOPY FLEXIBLE PROXIMAL DIAGNOSTIC performed by Alicia Mathews DO at [facility] COLONOSCOPY, DIAGNOSTIC (RECTUM) N/A 09/27/2014 COLONOSCOPY FLEXIBLE PROXIMAL DIAGNOSTIC performed by Alicia Mathews DO at [facility] COLONOSCOPY, DIAGNOSTIC (RECTUM) N/A 03/15/2015 COLONOSCOPY FLEXIBLE PROXIMAL DIAGNOSTIC performed by Alicia Mathews DO at [facility] COLONOSCOPY, DIAGNOSTIC (RECTUM) N/A 06/13/2015 COLONOSCOPY FLEXIBLE PROXIMAL DIAGNOSTIC performed by Alicia Mathews DO at [facility] COLONOSCOPY, DIAGNOSTIC (RECTUM) 04/08/2016 normal/inpt [facility] COLONOSCOPY, DIAGNOSTIC (RECTUM) 07/02/2017 COLONOSCOPY FLEXIBLE PROXIMAL DIAGNOSTIC performed by Alicia Mathews DO at [facility] COLONOSCOPY, DIAGNOSTIC (RECTUM) N/A 08/30/2018 COLONOSCOPY FLEXIBLE PROXIMAL DIAGNOSTIC performed by Alicia Mathews DO at [facility] COLONOSCOPY, DIAGNOSTIC (RECTUM) 12/03/2021 benign adenomatous polyps, repeat 1 yr / [facility] COLONOSCOPY, DIAGNOSTIC (RECTUM) 12/17/2022 adenomatous polyp, repeat 1 yr / [facility] EGD, FLEXIBLE, DIAGNOSTIC 09/10/2011 UPPER GI ENDOSCOPY DIAGNOSTIC performed by ALICIA MATHEWS at [facility] EGD, FLEXIBLE, DIAGNOSTIC 07/21/2012 UPPER GI ENDOSCOPY DIAGNOSTIC performed by Alicia Mathews DO at [facility] EGD, FLEXIBLE, DIAGNOSTIC N/A 05/14/2016 ESOPHAGOGASTRODUODENOSCOPY (EGD), FLEXIBLE, TRANSORAL, DIAGNOSTIC performed by Alicia Mathews DO at [facility] EGD, FLEXIBLE, DIAGNOSTIC 04/08/2016 anastamotic ulcer/inpt [facility] EGD, FLEXIBLE, DIAGNOSTIC N/A 07/02/2017 ESOPHAGOGASTRODUODENOSCOPY (EGD), FLEXIBLE, TRANSORAL, DIAGNOSTIC performed by Alicia Mathews DO at [facility] EGD, FLEXIBLE, DIAGNOSTIC N/A 08/30/2018 ESOPHAGOGASTRODUODENOSCOPY (EGD), FLEXIBLE, TRANSORAL, DIAGNOSTIC performed by Alicia Mathews DO at [facility] EGD, FLEXIBLE, DIAGNOSTIC 12/03/2021 normal, repeat 1 yr / [facility] EGD, FLEXIBLE, DIAGNOSTIC 12/17/2022 normal, repeat 1 yr / [facility] EGD, W/ENDOSCOPIC US 08/11/2012 UPPER GI ENDOSCOPY ENDOSCOPIC ULTRASOUND performed by Garcia Casey MD at [facility] EGD, W/ENDOSCOPIC US 11/04/2012 UPPER GI ENDOSCOPY ENDOSCOPIC ULTRASOUND performed by Garcia Casey MD at [facility] EGD, W/ENDOSCOPIC US N/A 05/08/2021 ESOPHAGOGASTRODUODENOSCOPY (EGD), FLEXIBLE, TRANSORAL, ENDOSCOPIC ULTRASOUND performed by Jane Gutierrez MD at [facility] ERCP, DIAGNOSTIC, SPECIMEN COLLECTION 09/14/2012 ENDOSCOPIC RETROGRADE CHOLANGIOPANCREATOGRAPHY DIAGNOSTIC performed by Garcia Casey MD at [facility] ERCP, DIAGNOSTIC, SPECIMEN COLLECTION 11/04/2012 ENDOSCOPIC RETROGRADE CHOLANGIOPANCREATOGRAPHY DIAGNOSTIC performed by Garcia Casey MD at [facility] MAINE FLEX SIGMOID DIAGNOSITIC N/A 09/18/2019 SIGMOIDOSCOPY FLEXIBLE DIAGNOSTIC performed by Alicia Mathews DO at [facility] MUSCLE/FASCIA DEBRIDEMENT, FIRST 20 CM2 N/A 11/29/2020 DEBRIDEMENT SKIN SUBCUTANEOUS TISSUE AND MUSCLE performed by Howard Montes De Oca DO at [facility] OTHER 2006 tracheostomy & laryngectomy REMOVAL OF COLON/ILEOSTOMY 1976 x3 REMOVAL OF THYROID GLAND 2006 Thyroidectomy REMOVE PANCREAS, PARTIAL (WHIPPLE) 06/17/2010 PANCREATECTOMY PROXIMAL WITH TOTAL DUODENECTOMY, Dr CIFUENTES REMOVE PANCREAS, PARTIAL (WHIPPLE) 12/02/2012 12/02/2012 PANCREATECTOMY PROXIMAL WITH SUBTOTAL DUODENECTOMY performed by Julio C Cifuentes MD at [facility] REPAIR INITIAL INCISIONAL OR VENTRAL HERNIA; REDUCIBLE 12/15/2021 done at [facility] by Dr Aayush Estrella REPAIR WINDPIPE OPENING, COMPLEX 06/02/2021 TRACHEOSTOMA REVISION WITH FLAP performed by Howard Montes De Oca DO at [facility] REPAIR WINDPIPE OPENING, SIMPLE N/A 08/07/2015 TRACHEOSTOMA REVISION SIMPLE performed by Howard Montes De Oca DO at [facility] REPAIR WINDPIPE OPENING, SIMPLE Bilateral 11/29/2020 TRACHEOSTOMA REVISION SIMPLE performed by Howard Montes De Oca DO at [facility] SIGMOIDOSCOPY, DIAGNOSTIC N/A 10/15/2020 SIGMOIDOSCOPY FLEXIBLE DIAGNOSTIC performed by Alicia Mathews DO at [facility] SIGMOIDOSCOPY, DIAGNOSTIC N/A 04/29/2021 SIGMOIDOSCOPY FLEXIBLE DIAGNOSTIC performed by Monae Batista DO at [facility] US GUIDED BREAST BIOPSY RIGHT Right Benign Review of patient's allergies indicates: Allergen Reactions Ambien [Zolpidem Tartrate] Psych complications Crestor [Rosuvastatin] Elevated lft Hctz [Hydrochlorothiazide] brenda Nsaids Other (Please comment) Gastric ulcer with anemia Family History Problem Relation Name Age of Onset Colon cancer Father Colon polyps Father Colon cancer Sister Colon polyps Sister No Known Problems Sister No Known Problems Sister No Known Problems Brother No Known Problems Brother Thyroid Disorder No significant family history Family History of Renal Disease No Social History Socioeconomic History Marital status: Single Spouse name: Not on file Number of children: Not on file Years of education: Not on file Highest education level: Not on file Occupational History 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 Employer: [employer] 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 Social Needs Financial resource strain: Not on file Food insecurity: Worry: Never true Inability: Never true Transportation needs: Medical: Not on file Non-medical: Not on file Tobacco Use Smoking status: Former Smoker Packs/day: 0.20 Years: 30.00 Pack years: 6.00 Types: Cigarettes Last attempt to quit: 07/05/2006 Years since quittin.0 Smokeless tobacco: Never Used Substance and Sexual Activity Alcohol use: No Drug use: No Sexual activity: Never Lifestyle Physical activity: Days per week: Not on file Minutes per session: Not on file Stress: Not on file Relationships Social connections: Talks on phone: Not on file Gets together: Not on file Attends methodist service: Not on file Active member of club or organization: Not on file Attends meetings of clubs or organizations: Not on file Relationship status: Not on file Intimate partner violence: Fear of current or ex partner: Not on file Emotionally abused: Not on file Physically abused: Not on file Forced sexual activity: Not on file Other Topics Concern Not on file Social History Narrative Not on file Ambulation: No assisted device Review of Systems: Twelve systems reviewed and negative OBJECTIVE: PHYSICAL EXAM: BP 119/70 (BP Site: Right Arm, BP Position: Sitting, BP Cuff Size: Regular) | Pulse 65 | Temp 36.6 C (97.8 F) (Tympanic) | Resp 20 | Wt 81.1 kg (178 lb 12.8 oz) | SpO2 93% | BMI 30.69 kg/m | BSA 1.91 m General: alert, healthy and no distress Head: No masses, lesions, tenderness or abnormalities Neck: supple, no JVD Heart: regular rate & rhythm, no murmurs and no gallops Lungs: normal respiratory rate and rhythm, lungs clear to auscultation Abdomen: abdomen soft and non-tender Back: no costovertebral angle tenderness Extremities: no edema Neuro Exam: alert & oriented x 3 with fluent speech, no focal motor/sensory deficits Skin: skin color, texture, turgor are normal, no rashes or significant lesions BP Readings from Last 4 Encounters: 01/05/24 119/70 09/30/23 110/70 09/28/23 128/72 08/23/23 140/80 Wt Readings from Last 4 Encounters: 01/05/24 81.1 kg (178 lb 12.8 oz) 09/30/23 77.1 kg (170 lb) 09/28/23 76.2 kg (168 lb 1.6 oz) 08/23/23 76.2 kg (168 lb) Estimated body mass index is 30.69 kg/m as calculated from the following: Height as of 09/30/23: 1.626 m (5' 4"). Weight as of this encounter: 81.1 kg (178 lb 12.8 oz). NEPH-FLOW Latest Ref Rng & Units 03/10/2019 04/10/2019 06/09/2019 Bun 6 - 20 mg/dL 32 (H) 19 39 (H) Cr 0.5 - 1.0 mg/dL 1.1 (H) 1.0 1.7 (H) eGFR >60 mL/min eGFR >60 53.2 (L) 57.5 (L) 32.2 (L) K 3.5 - 5.1 mmol/L 4.5 3.9 4.1 Hb 12.0 - 15.3 g/dL 15.4 (H) 14.2 14.1 Microalb/cr ratio <30 mg/g creat NEPH-FLOW Latest Ref Rng & Units 06/13/2019 06/19/2019 06/23/2019 Bun 6 - 20 mg/dL 26 (H) 15 29 (H) Cr 0.5 - 1.0 mg/dL 1.3 (H) 1.3 (H) 1.4 (H) eGFR >60 mL/min eGFR >60 43.1 (L) 43.1 (L) 39.5 (L) K 3.5 - 5.1 mmol/L 4.4 3.8 4.3 Hb 12.0 - 15.3 g/dL Microalb/cr ratio <30 mg/g creat NEPH-FLOW Latest Ref Rng & Units 01/24/2021 01/31/2021 04/01/2021 Bun 6 - 20 mg/dL 17 11 22 (H) Cr 0.5 - 1.0 mg/dL 1.1 (H) 0.9 1.0 eGFR >=60.0 mL/min 54.4 (L) 64.3 60.4 eGFR >60 K 3.5 - 5.1 mmol/L 5.2 (H) 4.1 5.1 Hb 12.0 - 15.3 g/dL Microalb/cr ratio <30 mg/g Creat 187 (H) Latest Ref Rng 05/14/2022 12:16 PM CRF FOLLOW UP SODIUM 135 - 146 mmol/L 142 POTASSIUM 3.5 - 5.1 mmol/L 4.1 CHLORIDE 98 - 107 mmol/L 102 BUN 6 - 20 mg/dL 21 (H) GLUCOSE 70 - 120 mg/dL 104 CREATININE 0.5 - 1.0 mg/dL 0.9 ALBUMIN 3.8 - 5.0 g/dL CALCIUM 8.4 - 10.2 mg/dL 9.1 CO2-TOTAL 22 - 32 mmol/L 26 IRON-TOTAL 33 - 151 ug/dL IRON BINDING CAP 250 - 425 ug/dL Transferrin Saturation Percent 15 - 55 % (H) High ASSESSMENT: CKD (chronic kidney disease) stage 3, GFR 30-59 ml/min ([facility]) (Primary) CKD stage 3 secondary to diabetes and hypertension which she has had for many years. Renal ultrasound already done and is normal. Last 2 urine test has been showing increasing proteinuria so maybe she does indeed have diabetic nephropathy. Continue losartan for proteinuria reduction. She was briefly on Jardiance also which lowers proteinuria reduction but not now. Reviewed multiple hospitalization for respiratory issues in 2022 most recently June 2023. Did explain that given acute illnesses intermittently kidney function does fluctuate Will do labs as below with her upcoming lab appointment in few days. I did advise her to make sure she drinks enough water prior to the blood work. - CBC WITH WBC DIFFERENTIAL; Future; Expected date: 01/05/2024 - PTH; Future; Expected date: 01/05/2024 - RENAL FUNCTION PANEL; Future; Expected date: 01/05/2024 - PROTEIN/ CREATININE RATIO, URINE; Future; Expected date: 01/05/2024 - URINALYSIS WITH MICROSCOPIC EXAM; Future; Expected date: 01/05/2024 - 25-HYDROXY VITAMIN D; Future; Expected date: 01/05/2024 Type 2 diabetes mellitus with hemoglobin A1c goal of less than 7.0% ([facility]) At goal on current agent metformin and Prandin. Now taken off Jardiance HTN, goal below 140/80 At goal. Continue current regimen of first-line agents including amlodipine carvedilol losartan. Used to be on hydrochlorothiazide that she no longer takes. Follow Up: Return in about 6 months (around 07/07/2024) for Clinic Visit. | For: Clinic Visit Galindo Jean MD documented in this encounter Nursing Notes * Lynn Cruz LPN - 01/05/2024 10:03 AM EDT Patient identified by verbal name and date of .Return visit No recent inpatient hospital staysor ED visits No surgery Denies SOB or lower extremity edema Last labs 10/14/23 documented in this encounter Plan of Treatment Upcoming Encounters Date Type Department Care Team (Latest Contact Info) Description 02/17/2024 7:50 AM EDT Office Visit OptometryPeggy [address] [address] Rancho Chapman Jr., OD [address] [place] [address] 03/01/2024 8:30 AM EDT Office Visit Orthopaedics [facility] [address] [place] [address] Javon Bunn DO [address] [place] [address] 03/27/2024 8:40 AM EDT Office Visit Endocrinology [address] [place] [place] [id number] Nhung Mnozon MD [address] [place] [address] 04/24/2024 2:10 PM EDT Office Visit Pharmacy, [facility] [address] [place] [address] Pharmacist1, [facility] [address] [place] [address] 04/24/2024 2:40 PM EDT Office Visit General Internal Medicine [facility] [address] [place] [address] Orlin Castro MD [address] [facility] [place] [address] 04/27/2024 11:55 AM EDT Hospital Encounter OR [facility], Operating Room, [facility] [address] [place] [address] Raymond Campbell MD [address] [place] [address] 04/27/2024 11:55 AM EDT - 04/27/2024 12:45 PM EDT Surgery OR [facility], Operating Room, [facility] [address] [place] [address] Raymond Campbell MD [address] [place] [address] COLONOSCOPY FLEXIBLE PROXIMAL DIAGNOSTIC 07/04/2024 9:20 AM EST Office Visit General Internal Medicine [facility] [place] [address] [place] [address] Orlin Castro MD [address] [place] [address] 10/03/2024 8:40 AM EDT Office Visit Nephrology, [facility] [address] [place] [address] Galindo Jean MD [address] [place] [address] Scheduled Orders Name Type Priority Associated Diagnoses Orde r Schedule CBC WITH WBC DIFFERENTIAL Lab Routine Stage 3a chronic kidney disease (HCC) Expected: 01/05/2024 (Approximate), Expires: 07/03/2024 PTH Lab Routine Stage 3a chronic kidney disease (HCC) Expected: 01/05/2024 (Approximate), Expires: 07/03/2024 RENAL FUNCTION PANEL Lab Routine Stage 3a chronic kidney disease (HCC) Expected: 01/05/2024 (Approximate), Expires: 07/03/2024 PROTEIN/ CREATININE RATIO, URINE Lab Routine Stage 3a chronic kidney disease (HCC) Expected: 01/05/2024 (Approximate), Expires: 07/03/2024 URINALYSIS WITH MICROSCOPIC EXAM Lab Routine Stage 3a chronic kidney disease (HCC) Expected: 01/05/2024 (Approximate), Expires: 07/03/2024 25-HYDROXY VITAMIN D Lab Routine Stage 3a chronic kidney disease (HCC) Expected: 01/05/2024 (Approximate), Expires: 07/03/2024 Scheduled Procedures Name Priority Associated Diagnoses Date/Ti [...] Additional history exists CKD HGB USE SMARTSET 59089 08/03/202408/03, 08/03/2023, 07/02/2023, Additional history exists CKD PHOS USE SMARTSET 14874 08/23/202408/05, 08/03/2023, 07/02/2023, Additional history exists Mammogram [...] this encounter Medical Devices Implanted Type Area Supervisor Fabrication Device Identifier Shelf Expiration Date Model / Serial / Lot Stent Pancreatic Geenen 5fr - [id number] Implanted:Qty: 1 on 06/17/2010 at [place] [facility] [place] [employer] 03/18/2013 [id number] / / [id number] Stent 10fr 7cm - [id number] Implanted:Qty: 1 on 06/17/2010 at [place] [facility] [place] [facility] : RADHA [place] 01/15/2013 [id number] / / [id number] Description:pancreas documented as of this encounter Visit Diagnoses Diagnosis Stage 3a chronic kidney disease (HCC)- Primary Type 2 diabetes mellitus with hemoglobin A1c goal of less than 7.0% (HCC) HTN, goal below 140/80 Unspecified essential hypertension Family history of colonic polyps documented in [...] Power of Attor tanika? No Care Teams Retort Unloader Relationship Specialty Start Date End Date Orlin Castro MD [address] [place] [address] PCP - General Internal Medicine 04/27/19 documented as of this encounter
--- OUTSIDE RECORDS SUMMARY | 2024-01-23 12:59 | External Medical Summary ---
Author Name Unknown Address Unknown Organization K09:[facility] [address] [place] [address] Laboratory Report Ordering Provider Test Date Status RICHARD BEYER 01/13/2024 09:04:45 Final Observation Date Value Abnormality Reference (Units ) Status AST (Aspartate aminotransferase) 01/13/2024 09:04:45 35 10-35 (U/L) Final Performing Location [facility] [address] [place] [address]
--- OUTSIDE RECORDS SUMMARY | 2024-01-23 12:59 | External Medical Summary | Summary of Care ---
Author Name Unknown Organization [facility] Address [address] [facility] [place] [address] Phone [phone] Care Team Providers Care Tableau Developer Name Role Phone Orlin Castro MD Primary Care Provider + Encounter Details Date Type Department Care Team (Late st Contact Info) Description 01/11/2024 Orders Only PATIENT PORTAL DO NOT DELETE THIS DEPT USED BY [place] [id number] Allergies Active Allergy Reactions Criticality Noted Date Comments Zolpidem Tartrate Psych complications 6 Rosuvastatin 04/05/2020 Elevated lft Hydrochlorothiazide 12/29/2019 brenda Nsaids Other (Please comment) 04/14/2016 Gastric ulcer with anemia documented as of this encounter (statuses as of 01/11/2024) Medications Medication Sig Dispensed Refills Start Date [...] EVERY DAY 90 Tablet 3 09/06/2023 09/06/19 Active Additional Information Patient not taking.Reported on [...] EVERY DAY. 90 Tablet 3 09/29/2023 09/29/19 Active Additional Information Patient taking [...] as of this encounter (statuses as of 01/11/2024) Active Problems Problem Noted Date Diagnosed Date [...] as of this encounter (statuses as of 01/11/2024) Resolved Problems Problem Noted Date Diagnosed Date [...] as of this encounter (statuses as of 01/11/2024) Immunizations Name Administration Dates Next Due COVID-19 [...] Description 02/17/2024 7:50 AM EDT [facility] [address] [place] [address] Rancho Chapman Jr., OD 16 [place] [address] 03/01/2024 8:30 AM EDT Office Visit Orthopaedics [facility] [address] [place] [address] Javon Bunn DO 132 [facility] [address] 03/27/2024 8:40 AM EDT Office Visit Endocrinology [address] [place] [phone] Nhung Monzon MD [address] [place] [address] 04/24/2024 2:10 PM EDT Office Visit Pharmacy, [facility] [place] [address] [place] [address] Pharmacist1, [facility] [address] [place] [address] 04/24/2024 2:40 PM EDT Office Visit General Internal Medicine [facility] [address] [facility] [address] [place] [address] Orlin Castro MD 200 [facility] [place] [address] 04/27/2024 11:55 AM EDT Hospital Encounter OR [facility], Operating Room, [facility] - 4th Floor [address] [place] [address] Raymond Campbell MD [address] [place] [address] 04/27/2024 11:55 AM EDT - 04/27/2024 12:45 PM EDT Surgery OR [facility], Operating Room, [facility] - 4th Floor 400 [place] [address] Raymond Campbell MD [address] [place] [address] COLONOSCOPY FLEXIBLE PROXIMAL DIAGNOSTIC 07/04/2024 9:20 AM EST Office Visit General Internal Medicine [facility] [address] [facility] [address] [place] [address] Orlin Castro MD 200 [facility] [place] [address] 10/03/2024 8:40 AM EDT Office Visit Nephrology, [facility] [address] [place] [address] Galindo Jaen MD 200 [facility] [place] [address] Scheduled Procedures Name Priority Associated Diagnoses Date/Ti [...] 07/01/2024 12/31/2023, 0302/2024, 05/31/2023, Additional history exists CKD HGB USE SMARTSET 28728 08/03/202408/03, 08/03/2023, 07/02/2023, Additional history exists CKD PHOS USE SMARTSET 17368 08/23/202408/05, 08/03/2023, 07/02/2023, Additional history exists Mammogram [...] this encounter Medical Devices Implanted Type Area Tool Room Machinist Device Identifier Shelf Expiration Date Model / Serial / Lot Stent Pancreatic Geenen 5fr - [id number] Implanted:Qty: 1 on 06/17/2010 at [place] [facility] [place] [employer] 03/18/2013 [id number] / / [id number] Stent 10fr 7cm - [id number] Implanted:Qty: 1 on 06/17/2010 at [place] [facility] [place] [facility] : RADHA [place] 01/15/2013 [id number] / / [id number] Description:pancreas documented as of this encounter Advance [...] Power of Attor tanika? No Care Teams Tableau Developer Relationship Specialty Start Date End Date Orlin Castro MD [address] [place] [address] PCP - General Internal Medicine 04/27/19 documented as of this encounter
--- OUTSIDE RECORDS SUMMARY | 2024-01-23 12:59 | External Medical Summary ---
Author Name Unknown Address Unknown Organization K09[facility] [place] [address] Laboratory Report Ordering Provider Test Date Status LASHON VASQUEZ 01/13/2024 09:04:45 Final Observation Date Value Abnormality Reference (Units ) Status WBC, Total 01/13/2024 09:04:45 8.00 4.00-10.8 0 (K/uL) Final RBC 01/13/2024 09:04:45 4.96 3.85-5.15 (M/uL) Final Hemoglobin 01/13/2024 09:04:45 13.8 12.0-15.3 (g/dL) Final HCT 01/13/2024 09:04:45 41.2 36.0-45.2 (%) Final MCV 01/13/2024 09:04:45 83.1 81.5-97.5 (fL) Final MCH 01/13/2024 09:04:45 27.8 27.0-34.0 (pg) Final MCHC 01/13/2024 09:04:45 33.5 32.0-36.0 (g/dL) Final RDW 01/13/2024 09:04:45 14.0 11.5-15.5 (%) Final Platelets 01/13/2024 09:04:45 326 140-400 (K /uL) Final MPV 01/13/2024 09:04:45 9.7 6.6-11.1 ( fL) Final Performing Location [facility] [place] [address]
--- OUTSIDE RECORDS SUMMARY | 2024-01-23 12:59 | External Medical Summary ---
Author Name Unknown Address Unknown Organization K01:[facility] [place] [address] [place] [address] Laboratory Report Ordering Provider Test Date Status LASHON VASQUEZ 01/13/2024 09:04:45 Final Observation Date Value Abnormality Reference (Units ) Status Parathyrin.intact [Mass/volume] in Serum or Plasma 01/13/2024 09:04:45 49 15-65 (pg/mL) Final Performing Location [facility] [place] [address] [place] [address]
--- OUTSIDE RECORDS SUMMARY | 2024-01-23 13:00 | External Medical Summary | Summary of Care ---
Author Name Unknown Organization [facility] Address [address] [facility] [place] [address] Phone [phone] Care Team Providers Care Shirring Machine Operator Automatic Name Role Phone Orlin Castro MD Primary Care Provider + Reason for Visit * Reason Comments Knee Pain bilat Encounter Details Date Type Department Care Team (Latest Contact Info) Description 11/24/2023 8:45 AM EDT Office Visit Orthopaedics [facility] [address] [place] [address] Javon Bunn DO [address] [place] [address] Primary osteoarthritis of both knees* Allergies Active Allergy Reactions Criticality Noted Date Comments Zolpidem Tartrate Psych complications 6 Rosuvastatin 04/05/2020 Elevated lft Hydrochlorothiazide 12/29/2019 brenda Nsaids Other (Please comment) 04/14/2016 Gastric ulcer with anemia documented as of this encounter (statuses as of 11/24/2023) Medications Medication Sig Dispensed Refills Start Date [...] s:COPD, group B, by GOLD 2017 classification ([facility]) Inhale via nebulizer . Use as directed. 1 Each 1 12/30/2021 Active Ipratropium-Albuter ol 0.5-2.5 (3) MG/3ML Inhalation Solution (Duoneb)Indications :COPD, group B, by GOLD 2017 classification ([facility]) Inhale via nebulizer 3 [...] Inhalation Suspension (Pulmicort) 0.25 mg. 2022 Active Ezetimibe 10 MG Oral Tablet (Zetia)Indications: Mixed hyperlipidemia TAKE ONE TABLET BY MOUTH EVERY DAY IN THE MORNING 90 Tablet 3 12/10/2022 12/10/19 24 Active OneTouch Verio In Vitro Strip (Glucose Blood)Indications:T ype 2 diabetes mellitus with hemoglobin A1c goal of less than 7.0% ([facility]) Use to test blood glucose 4 times daily. DX: E11.9 400 Strip 3 01/25/2023 Active Levothyroxine Sodium 200 MCG Oral Tablet (Levoxyl)Indication s:Postsurgical hypothyroidism TAKE 1 TABLET BY MOUTH DAILY AT LEAST 30 MINUTES PRIOR TO FIRST MEAL OF THE DAY OR OTHER MEDICATIONS 90 Tablet 3 03/15/2023 Active Misc. Devices Electrolarynx Medically necessary 1 Each 03/15/2023 Active Repaglinide 1 MG Oral Tablet (Prandin) Take 0.5 tablet by mouth with evening snack. 45 Tablet 06/08/2023 Active Potassium Chloride ER 10 MEQ Oral Capsule Extended Release Take 20 Milliequivalent by mouth in the morning. 06/20/2023 Active Losartan Potassium 100 MG Oral Tablet (Cozaar) TAKE ONE TABLET BY MOUTH EVERY DAY 180 Tablet 3 07/07/2023 07/06/19 25 Active Ferrous Sulfate 325 (65 Fe) MG Oral Tablet (Feosol) TAKE ONE TABLET THREE TIMES DAILY 270 Tablet 1 07/08/2023 Active Sucralfate 1 GM Oral Tablet (Carafate)Indicatio ns:Gastritis, bile acid reflux Take by mouth 1 Tablet in the morning AND 1 Tablet at noon AND 1 Tablet in the evening AND 1 Tablet before bedtime. 360 Tablet 3 07/27/2023 Active Pantoprazole Sodium 40 MG Oral Tablet Delayed Release (Protonix) TAKE ONE TABLET BY MOUTH EVERY DAY 90 Tablet 3 09/06/2023 09/06/19 25 Active Carvedilol 25 MG Oral Tablet (Coreg)Indications: HTN, goal below 140/90 TAKE ONE TABLET BY MOUTH 2 TIMES A DAY WITH MORNING AND EVENING MEALS 180 Tablet 3 09/07/2023 09/07/19 25 Active amLODIPine Besylate 10 MG Oral Tablet (Norvasc)Indication s:Essential hypertension with goal blood pressure less than 140/90 TAKE ONE TABLET BY MOUTH EVERY DAY. 90 Tablet 3 09/29/2023 09/29/19 25 Active metFORMIN HCl ER 500 [...] with supper. 180 Tablet 3 11/17/2023 Active Hospital, Clinic, or Other Facility Administered Medication Ordered Dose Route Frequency Start Date End Date Status lidocaine 1% 1 mL - triamcinolone acetonide 40 mg/mL 1 mL inj 2 mLIndications:Primary osteoarthritis of both knees 2 mL IJ ONCE 11/24/2023 11/24/2023 Ended lidocaine 1% 1 mL - triamcinolone acetonide 40 mg/mL 1 mL inj 2 mLIndications:Primary osteoarthritis of both knees 2 mL IJ ONCE 11/24/2023 11/24/2023 Ended documented as of this encounter (statuses as of 11/24/2023) Active Problems Problem Noted Date Diagnosed Date [...] as of this encounter (statuses as of 11/24/2023) Resolved Problems Problem Noted Date Diagnosed Date [...] as of this encounter (statuses as of 11/24/2023) Immunizations Name Administration Dates Next Due COVID-19 [...] of this encounter Progress Notes * Javon Bunn DO - 11/24/2023 8:45 AM EDT Mallory Soto [id number] INJECTION NOTE Mallory Soto is a 68 year old female who presents to [facility] for Bilateral knee. injections Last injected 08/25/23 she got relief for 3 months Physical Exam General: in no acute [...] - INJECT MAJOR JX/BURSA W/O US GUIDE PRESTON Kingston DOA, FAAFP, RMSK [facility] No ExperienceBattery Builder Primary Care Sports Medicine Team Physician [facility] Office locations: Orthopaedics [address] [address] Mallory Soto [id number] Procedure note (knee injection), bilateral : Time [...] with ice and resolve within 24 hours. DO Mallory Kingston [id number] documented in this encounter Nursing Notes * Kyleigh Owen MED ASSIST - 11/24/2023 8:35 AM EDT Here for repeat bilateral knee inj documented in this encounter Plan of Treatment Upcoming Encounters Date Type Department Care Team (Latest Contact Info) Description 11/30/2023 9:30 AM EDT Imaging Radiology [address] 132 [facility] [place] [address] 12/25/2023 4:00 PM EDT Telemedicine Family Practice [facility] 132 [facility] [place] [address] Orlin Castro MD [address] [place] [address] 12/31/2023 10:00 AM EDT Office Visit Pharmacy, [facility] [address] [place] [address] Pharmacist1, [facility] [address] [place] [address] 02/17/2024 7:50 AM EDT Office Visit Optometry, [place] 16 [place] [address] Rancho Chapman Jr., MAGGY [address] [place] [address] 03/01/2024 8:30 AM EDT Office Visit Orthopaedics [facility] [address] [place] [address] Javon Bunn DO [address] [facility] [address] 03/27/2024 8:40 AM EDT Office Visit Endocrinology, [place] [address] [place] [address] Nhung Monzon MD [address] [place] [address] 04/24/2024 2:40 PM EDT Office Visit General Internal Medicine [facility] 200 [place] [address] Orlin Castro MD 200 [place] [address] 04/27/2024 11:55 AM EDT Hospital Encounter OR [facility], Operating Room, [facility] - 4th Floor 400 [place] [address] Raymond Campbell MD [address] [place] [address] 04/27/2024 11:55 AM EDT - 04/27/2024 12:45 PM EDT Surgery OR [facility], Operating Room, [facility] - 4th Floor 400 [place] [address] Raymond Campbell MD [address] [place] [address] COLONOSCOPY FLEXIBLE PROXIMAL DIAGNOSTIC 05/08/2024 11:20 AM EST Office Visit Nephrology, [facility] [address] [place] [address] [address] Galinod Jean MD [facility] [place] [address] Scheduled Orders Name Type Priority Associated Diagnoses Orde r Schedule INJECT MAJOR JX/BURSA W/O US GUIDE Procedures Routine Primary osteoarthritis of both knees Ordered: 11/24/2023 Scheduled Procedures Name Priority Associated Diagnoses Date/Ti [...] 03/15/2024 03/15/2023, 05/05, 03/06/2022, Additional history exists HbA1c 04/01/2024 09/30/2023, 05/06, 03/31/2023, Additional history exists GFR 04/13/2024 10/13/2023, 08/05, 08/03/2023, Additional history exists Albumin/Creatinine Ratio 05/05/2024 023, 05/14/2022, 05/01/2022, Additional history exists Depression Screening 06/22/2024 06/22/2023 CKD HGB USE SMARTSET 33410 08/03/202408/03, 08/03/2023, 07/02/2023, Additional history exists CKD PHOS USE SMARTSET 91664 08/23/202408/05, 08/03/2023, 07/02/2023, Additional history exists Mammogram [...] this encounter Medical Devices Implanted Type Area Maintenance Parts Technician Device Identifier Shelf Expiration Date Model / Serial / Lot Stent Pancreatic Jonathan 5fr - [id number] Implanted:Qty: 1 on 06/17/2010 at [place] [facility] [place] [employer] 03/18/2013 [id number] / / [id number] Stent 10fr 7cm - [id number] Implanted:Qty: 1 on 06/17/2010 at [facility] COOK : RADHA [place] 01/15/2013 [id number] / / [id number] Description:pancreas documented as of this encounter Visit Diagnoses Diagnosis Primary osteoarthritis of both knees- Primary Primary localized osteoarthrosis, lower leg Family history of colonic polyps documented in this encounter Administered Medications Inactive Administered Medications - up to 3 most recent administrations Medication Order MAR Action Action Date Dose Rate Site lidocaine 1% 1 mL - triamcinolone acetonide 40 mg/mL 1 mL inj 2 mL 2 mL, Injection, ONCE, On Wed11/24/23 at 0915, For 1 dose, Lidocaine 1% 1mL Triamcinolone Acetonide 40 mg/mL 1 mL (Final concentration = 20 mg/mL) REFRIGERATE and SHAKE WELL Given 11/24/2023 8:47 AM EDT 2 mL Knee Right lidocaine 1% 1 mL - triamcinolone acetonide 40 mg/mL 1 mL inj 2 mL 2 mL, Injection, ONCE, On Wed11/24/23 at 0915, For 1 dose, Lidocaine 1% 1mL Triamcinolone Acetonide 40 mg/mL 1 mL (Final concentration = 20 mg/mL) REFRIGERATE and SHAKE WELL Given 11/24/2023 8:47 AM EDT 2 mL Knee Left documented in this encounter Advance Directives * [...] Power of Attor tanika? No Care Teams Shirring Machine Operator Automatic Relationship Specialty Start Date End Date Orlin Castro MD [address] [place] [address] PCP - General Internal Medicine 04/27/19 documented as of this encounter
--- OUTSIDE RECORDS SUMMARY | 2024-01-23 13:00 | External Medical Summary | Summary of Care ---
Author Name Unknown Organization [facility] Address [address] [facility] [place] [address] Phone [phone] Care Team Providers Care Horticulture Instructor Name Role Phone Orlin Castro MD Primary Care Provider + Reason for Visit * Reason Comments Psoriasis 6 month follow up on psoriasis. Lesion behind right ear. Continues on the triamcinolone. Encounter Details Date Type Department Care Team (Late st Contact Info) Description 10/05/2023 3:30 PM EDT Office Visit Dermatology [facility] [address] [address] Ling Capellan PA-C [address] [place], [place] [id number] Psoriasiform dermatitis*; Seborrheic keratosis Allergies Active Allergy Reactions Criticality Noted Date Comments Zolpidem Tartrate Psych complications 6 Rosuvastatin 04/05/2020 Elevated lft Hydrochlorothiazide 12/29/2019 brenda Nsaids Other (Please comment) 04/14/2016 Gastric ulcer with anemia documented as of this encounter (statuses as of 10/25/2023) Medications Medication Sig Dispensed Refills Start Date [...] Tube 15 Each 11 2 Active Compressor NebulizerIndication s:COPD, group B, by GOLD 2017 classification ([facility]) Inhale via nebulizer . Use as directed. 1 Each 1 2 Active Ipratropium-Albuter ol 0.5-2.5 (3) MG/3ML Inhalation Solution (Duoneb)Indications :COPD, group B, by GOLD 2017 classification ([facility]) Inhale via nebulizer 3 mL every 6 [...] 90 Tablet 3 3 12/10/19 24 Active myOrderio In Vitro Strip (Glucose Blood)Indications:T ype 2 diabetes mellitus with hemoglobin A1c goal of less than 7.0% ([facility]) Use to test blood glucose 4 times [...] goal of less than 7.0% ([facility]) Take 1 Tablet by mouth 2 times a day. 180 Tablet 3 3 Active Repaglinide 2 MG Oral Tablet (Prandin) Take 1 tablet by mouth in the morning with breakfast and 1 tablet with supper. 180 Tablet 0 3 Active Repaglinide 1 MG Oral Tablet (Prandin) Take 0.5 tablet by mouth with evening snack. 45 Tablet 0 3 Active Potassium Chloride ER 10 MEQ Oral Capsule Extended Release Take 20 Milliequivalent by mouth in the morning. 0 3 Active Losartan Potassium 100 MG Oral Tablet (Cozaar) TAKE ONE TABLET BY MOUTH EVERY DAY 180 Tablet 3 4 07/06/19 25 Active Ferrous Sulfate 325 (65 Fe) MG Oral Tablet (Feosol) TAKE ONE TABLET THREE TIMES DAILY 270 Tablet 1 4 Active Sucralfate 1 GM Oral Tablet (Carafate)Indicatio [...] 90 Tablet 3 4 09/29/19 25 Active Cyclobenzaprine HCl 10 MG Oral Tablet (Flexeril)Indicatio ns:Spasm of muscle TAKE ONE TABLET BY MOUTH AT BEDTIME NEEDED FOR MUSCLE SPASMS. 90 Tablet 3 3 10/18/19 24 Tiotropium Bandera Monohydrate 2.5 MCG/ACT Inhalation Aerosol Solution (Spiriva Respimat)Indication s:COPD, group B, by GOLD 2017 classification ([facility]) INHALE 2 PUFFS BY MOUTH IN THE MORNING 12 g 3 3 10/06/19 24 Additional Information Patient taking differently: 2 Puff Inhalation Daily(AM), Reported on 09/30/2023 documented as of this encounter (statuses as of 10/25/2023) Active Problems Problem Noted Date Diagnosed Date [...] as of this encounter (statuses as of 10/25/2023) Resolved Problems Problem Noted Date Diagnosed Date [...] as of this encounter (statuses as of 10/25/2023) Immunizations Name Administration Dates Next Due COVID-19 [...] Progress Notes * Tony Lowe MD - 10/25/2023 12:38 PM EDT I have reviewed the charting notes and orders and associated images and agree with the assessment and plan of Ling Sheppard PA-C . Tony Lowe MD., Dermatology [facility] [address] [place] [employer], [place] [id number] * Ling Capellan PA-C - 10/05/2023 3:17 PM EDT Nursing Notes: Connie Singer LPN 10/05/23 1516 Signed Patient identified by name and date. Chief Complaint Patient presents with Psoriasis 6 month follow up on psoriasis. Lesion behind right ear. Continues on the triamcinolone. SUBJECTIVE: HPI: Mallory Soto is a 67 year old female who is an established patient seen for follow-up psoriasis. Patient last visit on 03/16/23. Last attempted tx includes triamcinolone cream BID to elbows and lower legs PRN for flares with good improvement. C/o newer lesion behind R ear, no pain or bleeding. REVIEW OF SYSTEMS: See HPI- all other findings negative Constitutional: (-) fever, chills, sweats, weight loss Cardiovascular: (-) lower extremity edema Skin: (-) no rash or new or changing moles or skin lesions MEDICA TIONS: Current Outpatient Medications Medication Sig Dispense Refill ONETOUCH DELICA LANCETS FINE MISC Use to test blood sugar 4 times daily dx e11.9 400 Each 3 Misc. Devices Double R GroupC Tracheostomy Care Kit #4601 1 Each 0 [...] Ties for Laryngectomy Tube 15 Each 11 Compressor Nebulizer Inhale via nebulizer . Use [...] DAY IN THE MORNING 90 Tablet 3 Cyclobenzaprine HCl 10 MG Oral Tablet (Flexeril) TAKE ONE TABLET BY MOUTH AT BEDTIME NEEDED FOR MUSCLE SPASMS. 90 Tablet 3 Tiotropium Bandera Monohydrate 2.5 MCG/ACT Inhalation Aerosol Solution (Spiriva Respimat) INHALE 2 PUFFS BY MOUTH IN THE MORNING (Patient taking differently: Inhale 2 Puffs by mouth in the morning.) 12 g 3 MobileReactor In Vitro Strip (Glucose Blood) Use to test blood glucose 4 times daily. DX: E11.9 400 Strip 3 Levothyroxine Sodium 200 MCG Oral Tablet (Levoxyl) TAKE 1 TABLET BY MOUTH DAILY AT LEAST 30 MINUTESPRIOR TO FIRST MEAL OF THE DAY OR OTHER MEDICATIONS 90 Tablet 3 Misc. Devices Electrolarynx Medically necessary 1 Each 0 metFORMIN HCl ER 500 MG Oral Tablet Extended Release 24 Hour (Glucophage XR) Take 1 Tablet by mouth2 times a day. 180 Tablet 3 Repaglinide 2 MG Oral Tablet (Prandin) Take 1 tablet by mouth in the morning with breakfast and 1 tablet with supper. 180 Tablet 0 Repaglinide 1 MG Oral Tablet (Prandin) Take 0.5 tablet by mouth with evening snack. 45 Tablet 0 Potassium Chloride ER 10 MEQ Oral Capsule Extended Release Take 20 Milliequivalent by mouth in the morning. Losartan Potassium 100 MG Oral Tablet (Cozaar) TAKE ONE TABLET BY MOUTH EVERY DAY 180 Tablet 3 Ferrous Sulfate 325 (65 Fe) MG Oral Tablet (Feosol) TAKE ONE TABLET THREE TIMES DAILY 270 Tablet 1 Sucralfate 1 GM Oral Tablet (Carafate) Take by mouth 1 Tablet in the morning AND 1 Tablet at noon AND 1 Tablet in the evening AND 1 Tablet before bedtime. 360 Tablet 3 Pantoprazole Sodium 40 MG Oral Tablet Delayed Release (Protonix) TAKE ONE TABLET BY MOUTH EVERY DAY90 Tablet 3 Carvedilol 25 MG Oral Tablet (Coreg) TAKE ONE TABLET BY MOUTH 2 TIMES A DAY WITH MORNING AND EVENING MEALS 180 Tablet 3 amLODIPine Besylate 10 MG Oral Tablet (Norvasc) TAKE ONE TABLET BY MOUTH EVERY DAY. 90 Tablet 3 No current facility-administered medications for this visit. ALLERG Y: Ambien [zolpidem tartrate], Crestor [rosuvastatin], Hctz [hydrochlorothiazide], and Nsaids OBJECTIVE: GEN: Healthy, alert, no distress, appears oriented, pleasant, and cooperative. PSYCH: Appropriate mood and affect, alert SKIN: Detailed exam of scalp was completed and are within normal limits with the following exceptions: 1. Cortes keratotic papule R postauricular neck ASSESSMENT/PLAN: 1. Psoriasiform dermatitis - continue triamcinolone 0.1% cream BID to upper and lower ext PRN for flares - continue gentle skin care and good moisturizing habits 2. Seborrheic Keratosis -Reassured of the benign nature of lesion -Discussed with patient that they may get more of these lesions in the future -If there are any lesions that become irritated, bleed, or painful to return to clinic for evaluation -No current treatment necessary at this time Patient alone today. Follow-up: 6 months Photos taken, patient consented to photos taken. Applicable photos (if any) and chart reviewed by Dr. Tony Lowe The patient was encouraged to contact me with any further questions or concerns. Ling Capellan PA-C 10/05/2023 3:18 PM documented in this encounter Nursing Notes * Connie Singer LPN - 10/05/2023 3:16 PM EDT Patient identified by name and date. Chief Complaint Patient presents with Psoriasis 6 month follow up on psoriasis. Lesion behind right ear. Continues on the triamcinolone. documented in this encounter Plan of Treatment Upcoming Encounters Date Type Department Care Team (Late st Contact Info) Description 11/24/2023 8:45 AM EDT Office Visit Orthopaedics [facility] [address] [place] [address] Javon Bunn, [address] [place] [address] 11/30/2023 9:30 AM EDT Imaging Radiology [address] [facility] [place] [address] 12/15/2023 9:00 AM EDT Procedure Only Endoscopy, [facility] [address] [place] [address] Raymond Campbell MD [address] [facility] [place] [address] 12/31/2023 10:00 AM EDT Office Visit Pharmacy, [facility] [address] [place] [address] Pharmacist1, [facility] [address] [facility] [place] [address] 02/17/2024 7:50 AM EDT Office Visit Optometry, [place] 16 [place] [address] Rancho Chapman Jr., OD 16 [place] [address] 03/27/2024 8:40 AM EDT Office Visit Endocrinology, [place] [address] [facility] [address] Nhung Monzon MD [address] [place] [address] 04/24/2024 2:40 PM EDT Office Visit General Internal Medicine [facility] [place] [address] [place] [address] Orlin Castro MD [address] [facility] [place], [place] [address] 05/08/2024 11:20 AM EST Office Visit Nephrology, [facility] [address] [facility] [facility] [place], [place] [address] Galindo Jean MD [address] [place] [address] Health Maintenance Due Date Last Done Comments *COPD SEVERITY VERIFIED BY PFT 08/02/2019 COVID-19 Vaccine ( season) 2023 07/07/2022, 02/15/2021, 01/09/2021, Additional history exists COLONOSCOPY-ANNUAL AGES 18-100 12/18/2023 12/17/2022, 12/17/2022, 04/29/2021, Additional history exists Diabetic Eye Exam 01/13/2024 01/12/2023, , 01/12/2023, Additional history exists TSH 03/15/2024 03/15/2023, 05/05, 03/06/2022, Additional history exists HbA1c 04/01/2024 09/30/2023, 05/06, 03/31/2023, Additional history exists GFR 04/13/2024 10/13/2023, 08/05, 08/03/2023, Additional history exists Albumin/Creatinine Ratio 05/05/2024 023, 05/14/2022, 05/01/2022, Additional history exists Depression Screening 06/22/2024 06/22/2023 CKD HGB USE SMARTSET 74951 08/03/202408/03, 08/03/2023, 07/02/2023, Additional history exists CKD PHOS USE SMARTSET 69403 08/23/202408/05, 08/03/2023, 07/02/2023, Additional history exists Mammogram 09/13/2024 09/14/2023, 09/02, 09/11/2022, Additional history exists Diabetic Foot Exam 09/29/2024 09/30/2023, 0 08/07/2022, 08/21/2021, Additional history exists O2 ASSESSMENT COMPLETED IN PAST YEAR FOR COPD 09/29/2024 09/30/2023 DXA Scan 05/12/2026 05/12/2022, 05/12/2022 Lipid Panel [...] 04/04/2015, Additional history exists Colonoscopy Discontinued 12/17/2022, 12/03, 08/30/2018, Additional history exists Colorectal Cancer Screening Discontinued [...] this encounter Medical Devices Implanted Type Area Reclamation Furnace Operator Device Identifier Shelf Expiration Date Model / Serial / Lot Stent Pancreatic Kelsin 5fr - [id number] Implanted:Qty: 1 on 06/17/2010 [place] [facility] [employer] 03/18/2013 [id number] / / [id number] Stent 10fr 7cm - [id number] Implanted:Qty: 1 on 06/17/2010 [place] [facility] [place]OOK : RADHA [place] 01/15/2013 [id number] / / [id number] Description:pancreas documented as of this encounter Procedures Procedure Name Priority Date/Time Associated Diagnosis Comments DERM IMAGE (SITE) Routine 10/05/2023 Psoriasiform dermatitis documented in this encounter Results * DERM IMAGE (SITE) (10/05/2023) 10/05/2023 Ling Capellan PA-C DIGITAL VENECIA TOGRAPHY documented in this encounter Visit Diagnoses Diagnosis Psoriasiform dermatitis- Primary Other psoriasis and similar disorders Seborrheic keratosis Other seborrheic keratosis documented in this encounter Advance Directives Latest [...] the patient have Health Care Power of Pulp Refiner Operator? No Care Teams Horticulture Instructor Relationship Specialty Start Date End Date Orlin Castro MD [address] [place] [address] PCP - General Internal Medicine 04/27/19 documented as of this encounter
--- OUTSIDE RECORDS SUMMARY | 2024-01-23 13:00 | External Medical Summary ---
Author Name Unknown Address Unknown Organization K09:[facility] [place] [address] Laboratory Report Ordering Provider Test Date Status FRANDY GARIBAY V 12/31/2023 09:27:34 Final Observation Date Value Abnormality Reference (Units ) Status HbA1C 12/31/2023 09:27:34 8.3 Above high normal 4. 0-5.6 (%) Final Performing Location [facility] [place] [address]
--- OUTSIDE RECORDS SUMMARY | 2024-01-23 13:00 | External Medical Summary | Summary of Care ---
Author Name Unknown Organization [facility] Address [address] [facility] [place] [address] Phone [phone] Care Team Providers Care Painter Touch Up Name Role Phone Orlin Castro MD Primary Care Provider + Reason for Visit * Reason Comments Knee Pain bilat Encounter Details Date Type Department Care Team (Latest Contact Info) Description 11/24/2023 8:45 AM EDT Office Visit Orthopaedics [facility] [address] [place] [address] Javon Bunn DO [address] [place] [address] Primary osteoarthritis of both knees* Allergies Active [...] group B, by GOLD 2017 classification ([facility]) Inhale via nebulizer . Use as directed. 1 Each 1 12/30/2021 Active Ipratropium-Albuter ol 0.5-2.5 (3) MG/3ML Inhalation Solution (Duoneb)Indications :COPD, group B, by GOLD 2017 classification ([facility]) Inhale via nebulizer 3 mL [...] A1c goal of less than 7.0% ([facility]) Use to test blood glucose [...] - 11/24/2023 8:45 AM EDT Mallory Soto [id number] INJECTION NOTE Mallory Soto is a 68 year old female who presents to [facility] Medicine for Bilateral knee. injections [...] US GUIDE PRESTON Kingston DOA, FAAFP, RMSK [facility] Sports Dinkey Locomotive EngineerEducation And Development Manager Primary Care Sports Medicine Team Physician [facility] Office locations: Orthopaedics [address] [address] Mallory Soto [id number] Procedure note (knee injection), bilateral : Time [...] resolve within 24 hours. DO Mallory Kingston [id number] documented in this encounter Nursing Notes * Kyleigh Owen MED ASSIST - 11/24/2023 8:35 AM EDT Here for repeat bilateral knee inj documented in this encounter Plan of Treatment Upcoming Encounters Date Type Department Care Team (Latest Contact Info) Description 11/30/2023 9:30 AM EDT Imaging Radiology [address] 132 [facility] [place] [address] 12/25/2023 4:00 PM EDT Telemedicine Family Practice [facility] [address] [facility] [place] [address] Orlin Castro MD [address] [place] [address] 12/31/2023 10:00 AM EDT Office Visit Pharmacy, [facility] [address] [place] [address] [address] Pharmacist1, [facility] [address] [place] [address] 02/17/2024 7:50 AM EDT Office Visit Optometry, [place] 16 [place] [address] Rancho Chapman Jr., MAGGY 16 [place] [address] 03/01/2024 8:30 AM EDT Office Visit Orthopaedics [facility] [address] [place] [address] Javon Bunn DO [address] [place] [place] [address] 03/27/2024 8:40 AM EDT Office Visit Endocrinology, [place] [address] [place] [address] Nhung Monzon MD [address] [place] [address] 04/24/2024 2:40 PM EDT Office Visit General Internal Medicine [facility] 200 [place] [address] Orlin Castro MD 200 [place] [address] 04/27/2024 11:55 AM EDT Hospital Encounter OR [facility], Operating Room, [facility] - 4th Floor 400 [place] [address] Raymond Campbell MD [address] [place] [address] 04/27/2024 11:55 AM EDT - 04/27/2024 12:45 PM EDT Surgery OR [facility], Operating Room, [facility] - 4th Floor [address] [place] [address] Raymond Campbell MD [address] [place] [address] COLONOSCOPY FLEXIBLE PROXIMAL DIAGNOSTIC 05/08/2024 11:20 AM EST Office Visit Nephrology, [place] [address] [place] [address] Galindo Jean MD [facility] [place] [address] Scheduled Orders Name Type Priority Associated Diagnoses [...] Screening 06/22/2024 06/22/2023 CKD HGB USE SMARTSET 52227 08/03/202408/03, 08/03/2023, 07/02/2023, Additional history exists CKD PHOS USE SMARTSET 06348 08/23/202408/05, 08/03/2023, 07/02/2023, Additional history exists Mammogram [...] encounter Medical Devices Implanted Type Area Rn Admit Device Identifier Shelf Expiration Date Model / Serial / Lot Stent Pancreatic Jonathan 5fr - [id number] Implanted:Qty: 1 on 06/17/2010 [place] [facility] [employer] 03/18/2013 [id number] / / [id number] Stent 10fr 7cm - [id number] Implanted:Qty: 1 on 06/17/2010 at [facility] COOK : RADHA [place] 01/15/2013 [id number] / / [id number] Description:pancreas documented as of this encounter Visit [...] Power of Attor tanika? No Care Teams Painter Touch Up Relationship Specialty Start Date End Date Orlin Castro MD 200 [place] [address] PCP - General Internal Medicine 04/27/19 documented as of this encounter
--- OUTSIDE RECORDS SUMMARY | 2024-01-23 13:00 | External Medical Summary | Summary of Care ---
Author Name Unknown Organization [facility] Address [address] [facility] [place] [address] Phone [phone] Care Team Providers Care Group Home Worker Name Role Phone Orlin Castro MD Primary Care Provider + Reason for Visit * Reason Comments Psoriasis 6 month follow up on psoriasis. Lesion behind right ear. Continues on the triamcinolone. Encounter Details Date Type Department Care Team (Late st Contact Info) Description 10/05/2023 3:30 PM EDT Office Visit Dermatology [facility] [address] [place] [address] Ling Capellan PA-C [address] [place], [place] [phone] Psoriasiform dermatitis*; Seborrheic keratosis Allergies Active Allergy [...] 2017 classification ([facility]) Inhale via nebulizer . Use as directed. 1 Each 1 2 Active Ipratropium-Albuter ol 0.5-2.5 (3) MG/3ML Inhalation Solution (Duoneb)Indications :COPD, group B, by GOLD 2017 classification ([facility]) Inhale via nebulizer 3 mL every 6 [...] 90 Tablet 3 3 12/10/19 24 Active [employer] Hex[employer] In Vitro Strip (Glucose Blood)Indications:T ype 2 diabetes mellitus with hemoglobin A1c goal of less than 7.0% ([facility]) Use to test blood glucose 4 times [...] than 7.0% ([facility]) Take 1 Tablet by mouth 2 times [...] 90 Tablet 3 3 10/18/19 24 Tiotropium [place] Monohydrate 2.5 MCG/ACT Inhalation Aerosol Solution (Spiriva Respimat)Indication s:COPD, group B, by GOLD 2017 classification ([facility]) INHALE 2 PUFFS BY MOUTH IN THE [...] Sheppard PA-C . Tony Lowe MD., Dermatology [facility] Outpatient Special[facility] Departments [address] [place], [place] [phone] * Ling Capellan PA-C - 10/05/2023 3:17 [...] dx e11.9 400 Each 3 Misc. Devices CapptainC Tracheostomy Care Kit #4601 1 Each 0 [...] FOR MUSCLE SPASMS. 90 Tablet 3 Tiotropium [place] Monohydrate 2.5 MCG/ACT Inhalation Aerosol Solution (Spiriva Respimat) INHALE 2 PUFFS BY MOUTH IN THE MORNING (Patient taking differently: Inhale 2 Puffs by mouth in the morning.) 12 g 3 [employer] In Vitro Strip (Glucose Blood) Use to [...] 11/24/2023 8:45 AM EDT Office Visit Orthopaedics [facility] [address] [place] [address] Javon Bunn, [address] [place] [address] 11/30/2023 9:30 AM EDT Imaging Radiology [address] [facility] [place] [address] 12/15/2023 9:00 AM EDT Procedure Only Endoscopy, [facility] [address] [facility] [place] [address] Raymond Campbell MD [address] [facility] [place] [address] 12/31/2023 10:00 AM EDT Office Visit Pharmacy, [facility] [address] [facility] [place] [address] Pharmacist1, [facility] 200 [facility] [place] [address] 02/17/2024 7:50 AM EDT Office Visit Optometry, [place] 16 [place] [address] Rancho Chapman Jr., OD 16 [place] [address] 03/27/2024 8:40 AM EDT Office Visit Endocrinology, [place] [address] [place] [address] Nhung Monzon MD [address] [place] [address] 04/24/2024 2:40 PM EDT Office Visit General Internal Medicine [facility] [place] [address] [facility] [place] [address] Orlin Castro MD [address] [facility] [place], [place] [address] 05/08/2024 11:20 AM EST Office Visit Nephrology, [facility] [address] [facility] [place], [place] [address] Galindo Jean MD [address] [facility] [place] [address] Health Maintenance Due Date Last Done Comments [...] Screening 06/22/2024 06/22/2023 CKD HGB USE SMARTSET 18549 08/03/202408/03, 08/03/2023, 07/02/2023, Additional history exists CKD PHOS USE SMARTSET 56112 08/23/202408/05, 08/03/2023, 07/02/2023, Additional history exists Mammogram [...] this encounter Medical Devices Implanted Type Area Disability Examiner Device Identifier Shelf Expiration Date Model / Serial / Lot Stent Pancreatic Kelsin 5fr - [id number] Implanted:Qty: 1 on 06/17/2010 at [place] [facility] [employer] 03/18/2013 [id number] / / [id number] Stent 10fr 7cm - [id number] Implanted:Qty: 1 on 06/17/2010 at [place] [facility] COOK : RADHA [place] 01/15/2013 [id number] / / [id number] Description:pancreas documented as of this encounter Procedures [...] the patient have Health Care Power of Asset Protection Detective? No Care Teams Group Home Worker Relationship Specialty Start Date End Date Orlin Castro MD [address] [facility] [place] [address] PCP - General Internal Medicine 04/27/19 documented as of this encounter
--- OUTSIDE RECORDS SUMMARY | 2024-01-23 13:00 | External Medical Summary | Summary of Care ---
Author Name Unknown Organization [facility] Address [address] [place] [address] Phone [phone] Care Team Providers Care Restaurant District Manager Name Role Phone Orlin Castro MD Primary Care Provider + Reason for Visit * Reason Comments Medication Refill Encounter Details Date Type Department Care Team (Late st Contact Info) Description 11/26/2023 Refill General Internal Medicine [facility] 200 [facility] [place] [address] Orlin Castro MD 200 [place] [address] Spasm of muscle Allergies Active Allergy Reactions Criticality Noted Date Comments Zolpidem Tartrate Psych complications 6 Rosuvastatin 04/05/2020 Elevated lft Hydrochlorothiazide 12/29/2019 brenda Nsaids Other (Please comment) 04/14/2016 Gastric ulcer with anemia documented as of this encounter (statuses as of 11/29/2023) Medications Medication Sig Dispensed Refills Start Date [...] ns:COPD, group B, by GOLD 2017 classification ([facility]) Inhale via nebulizer . Use as directed. 1 Each 1 2 Active Ipratropium-Albute rol 0.5-2.5 (3) MG/3ML Inhalation Solution (Duoneb)Indication s:COPD, group B, by GOLD 2017 classification ([facility]) Inhale via nebulizer 3 mL every [...] hemoglobin A1c goal of less than 7.0% ([facility]) Use to test blood glucose 4 [...] AND 1 Tablet before bedtime. 360 Tablet 4 Active Pantoprazole Sodium 40 MG Oral Tablet Delayed Release (Protonix) TAKE ONE TABLET BY MOUTH EVERY DAY 90 Tablet 4 09/06/19 25 Active Carvedilol 25 MG Oral Tablet (Coreg)Indications :HTN, goal below 140/90 TAKE ONE TABLET BY MOUTH 2 TIMES A DAY WITH MORNING AND EVENING MEALS 180 Tablet 4 09/07/19 25 Active amLODIPine Besylate 10 MG Oral Tablet (Norvasc)Indicatio ns:Essential hypertension with goal blood pressure less than 140/90 TAKE ONE TABLET BY MOUTH EVERY DAY. 90 Tablet 4 09/29/19 25 Active metFORMIN HCl ER 500 MG Oral Tablet Extended Release 24 Hour (Glucophage XR)Indications:Typ e 2 diabetes mellitus with hemoglobin A1c goal of less than 7.0% (HCC) Take 1 Tablet by mouth two times a day. 180 Tablet 4 Active Repaglinide 2 MG Oral Tablet (Prandin)Indicatio ns:Type 2 diabetes mellitus with hemoglobin A1c goal of less than 7.0% (HCC) Take 1 tablet by mouth in the morning with breakfast and 1 tablet with supper. 180 Tablet 4 Active Repaglinide 1 MG Oral Tablet (Prandin)Indicatio ns:Type 2 diabetes mellitus with hemoglobin A1c goal of less than 7.0% (HCC) TAKE ONE-HALF TABLET BY MOUTH EVERY DAY WITH EVENING SNACK 45 Tablet 4 Active Cyclobenzaprine HCl 10 MG Oral Tablet (Flexeril)Indicati ons:Spasm of muscle TAKE ONE TABLET BY MOUTH AT BEDTIME NEEDED FOR MUSCLE SPASMS. 90 Tablet 4 Active Ezetimibe 10 MG Oral Tablet (Zetia)Indications :Mixed hyperlipidemia TAKE ONE TABLET BY MOUTH EVERY DAY IN THE MORNING 90 Tablet 4 11/26/19 25 Active Cyclobenzaprine HCl 10 MG Oral Tablet (Flexeril)Indicati ons:Spasm of muscle TAKE ONE TABLET BY MOUTH AT BEDTIME NEEDED FOR MUSCLE SPASMS. 90 Tablet 3 11/26/19 24 Discontinu ed(Refill) documented as of this encounter (statuses as of 11/29/2023) Active Problems Problem Noted Date Diagnosed Date [...] as of this encounter (statuses as of 11/29/2023) Resolved Problems Problem Noted Date Diagnosed Date [...] screening mammogram 09/29/2010 Routine medical exam 09/29/2010 11/15/2 016 TUBULAR ADENOMA- duodenum 07/07/2010 Other specified [...] as of this encounter (statuses as of 11/29/2023) Immunizations Name Administration Dates Next Due COVID-19 [...] encounter Miscellaneous Notes * Telephone Encounter - Orlin Castro MD - 11/29/2023 10:29 AM EDT Signed Prescriptions: Disp Refills Cyclobenzaprine HCl 10 MG Oral Tablet (Fle*90 Tab*3 Sig: TAKE ONE TABLET BY MOUTH AT BEDTIME NEEDED FOR MUSCLE SPASMS. Authorizing Provider: ORLIN CASTRO * Telephone Encounter - Pan Nash [facility] - 11/27/2023 11:14 AM EDT Pending Prescriptions: Disp Refills Cyclobenzaprine HCl 10 MG Oral Tablet (Fle*90 Tab*3 Sig: TAKE ONE TABLET BY MOUTH AT BEDTIME NEEDED FOR MUSCLE SPASMS. * Telephone Encounter - Pan Nash RPh - 11/27/2023 11:14 AM EDT Pending Prescriptions: Disp Refills Cyclobenzaprine HCl 10 MG Oral Tablet (Fle*90 Tab*3 Sig: TAKE ONE TABLET BY MOUTH AT BEDTIME NEEDED FOR MUSCLE SPASMS. 09/30/2023 (in office), Visit date not found (telemedicine) 04/24/2024 If no future appointments scheduled, and last appointment is greater than a year ago, please schedule patient for a follow-up appointment Last date the medication was ordered: 09/16/22 Pharmacy: [email or web address] Is this request for a controlled substance?No Urine Drug Screen:No results found. However, due to the size of the patient record, not all encounters were searched. Please check Results Review for a complete set of results. Patient Phone Numbers Labs: Lab Results Component Value Date/Time CREAT 1.3 (H) 10/13/2023 09:06 AM CREAT 1.2 (H) 05/01/2020 10:54 AM POTASSIUM 4.8 10/13/2023 09:06 AM POTASSIUM 4.3 05/01/2020 10:54 AM TSH 2.04 03/15/2023 10:29 AM TSH 4.84 (H) 07/24/2020 10:20 AM LDLCALC 80 10/13/2023 09:06 AM LDLCALC 57 07/24/2020 10:20 AM LDLDIRECT NOT APPLICABLE 07/24/2020 10:20 AM LDLDIRECT 86 12/09/2018 08:53 AM ALT 30 10/13/2023 09:06 AM ALT 20 07/24/2020 10:20 AM HGBA1C 7.3 (H) 09/30/2023 09:13 AM HGBA1C 6.8 (H) 07/24/2020 10:20 AM documented in this encounter Plan of Treatment Upcoming Encounters Date Type Department Care Team (Latest Contact Info) Description 11/30/2023 9:30 AM EDT Imaging Radiology [facility] [place] [address] 12/31/2023 10:00 AM EDT Office Visit Pharmacy, [facility] [address] [place] [address] Pharmacist1, [facility] [address] [place] [address] 02/17/2024 7:50 AM EDT Office Visit Optometry, [place] [address] [place] [address] Ari Staley, [place], MAGGY [address] [place] [address] 03/01/2024 8:30 AM EDT Office Visit Orthopaedics [facility] 132 [facility] [place] [address] Javon Bunn DO [facility] [place] [address] 03/27/2024 8:40 AM EDT Office Visit Endocrinology, [place] [address] [place] [address] Nhung Monzon MD [address] [place] [address] 04/24/2024 2:40 PM EDT Office Visit General Internal Medicine [facility] 200 [facility] [place] [address] Orlin Castro MD 200 [facility] [place] [address] 04/27/2024 11:55 AM EDT Hospital Encounter [facility], [facility], [facility] - [facility]th [facility] [address] [facility] [place] [address] Raymond Campbell MD [address] [place] [address] 04/27/2024 11:55 AM EDT - 04/27/2024 12:45 PM EDT Surgery [facility], Operating Room, [facility] - 4th Floor [address] [place] [address] Raymond Campbell MD [address] [place] [address] COLONOSCOPY FLEXIBLE PROXIMAL DIAGNOSTIC 05/08/2024 11:20 AM EST Office Visit Nephrology, [facility] 200 [facility] [place] [address] Galindo Jean MD [address] [facility] [address] [place] [address] 07/04/2024 9:20 AM EST Office Visit General Internal Medicine [facility] 200 [facility] [place] [address] Orlin Castro MD 200 [facility] [place] [address] Scheduled Procedures Name Priority Associated Diagnoses Date/Ti [...] Screening 06/22/2024 06/22/2023 CKD HGB USE SMARTSET 20807 08/03/202408/03, 08/03/2023, 07/02/2023, Additional history exists CKD PHOS USE SMARTSET 21062 08/23/202408/05, 08/03/2023, 07/02/2023, Additional history exists Mammogram [...] this encounter Medical Devices Implanted Type Area Decal Cutter Device Identifier Shelf Expiration Date Model / Serial / Lot Stent Pancreatic Geenen 5fr - [id number] Implanted:Qty: 1 on 06/17/2010 at OR [facility] [employer] 03/18/2013 [id number] / / [id number] Stent 10fr 7cm - [id number] Implanted:Qty: 1 on 06/17/2010 at OR [facility] [employer] : RADHA [place] 01/15/2013 [id number] / / [id number] Description:pancreas documented as of this encounter Visit Diagnoses Diagnosis Spasm of muscle Family history of colonic polyps documented in [...] Power of Attor tanika? No Care Teams Restaurant District Manager Relationship Specialty Start Date End Date Orlni Castro MD 200 [place] [address] PCP - General Internal Medicine 04/27/19 documented as of this encounter
--- OUTSIDE RECORDS SUMMARY | 2024-01-23 13:00 | External Medical Summary | Summary of Care ---
Author Name Unknown Organization [facility] Address [address] [place] [address] Phone [phone] Care Team Providers Care Leather Whitener Name Role Phone Orlin Castro MD Primary Care Provider + Reason for Visit * Reason Onset Date Comments Test Results 10/14/2023 Encounter Details Date Type Department Care Team (Late st Contact Info) Description 10/14/2023 Telephone General Internal Medicine [facility] 200 [facility] [place] [address] Orlin Castro MD [address] [place] [facility] [place] [address] Test Results Allergies Active Allergy Reactions Criticality Noted Date Comments Zolpidem Tartrate Psych complications 6 Rosuvastatin 04/05/2020 Elevated lft Hydrochlorothiazide 12/29/2019 brenda Nsaids Other (Please comment) 04/14/2016 Gastric ulcer with anemia documented as of this encounter (statuses as of 10/18/2023) Medications Medication Sig Dispensed Refills Start Date End Date Status [facility] Use to test blood sugar 4 times daily dx e11.9 400 Each 3 03/09/2019 Active Misc. Devices [facility] Tracheostomy Care Kit #4601 1 Each 0 10/02/2019 Active Vitamin B-12 1000 MCG Oral Tablet Take 1 Tab by mouth daily. 90 Tab 3 03/07/2021 Active The Vetted NetTouch Verio Flex System w/Device Kit Use as [...] 90 Tablet 3 12/10/2022 12/10/19 24 Active Cyclobenzaprine HCl 10 MG Oral Tablet (Flexeril)Indicatio ns:Spasm of muscle TAKE ONE TABLET BY MOUTH AT BEDTIME NEEDED FOR MUSCLE SPASMS. 90 Tablet 3 09/16/2022 10/18/19 24 Active OneTouch Verio In Vitro Strip [...] day. 180 Tablet 3 05/31/2023 Active Repaglinide 2 MG Oral Tablet (Prandin) Take 1 tablet by mouth in the morning with breakfast and 1 tablet with supper. 180 Tablet 0 06/08/2023 Active Repaglinide 1 MG Oral Tablet (Prandin) Take 0.5 tablet by mouth with evening snack. 45 Tablet 0 06/08/2023 Active Potassium Chloride ER 10 MEQ Oral Capsule Extended Release Take 20 Milliequivalent by mouth in the morning. 0 06/20/2023 Active Losartan Potassium 100 MG Oral [...] 90 Tablet 3 09/29/2023 09/29/19 25 Active documented as of this encounter (statuses as of 10/18/2023) Active Problems Problem Noted Date Diagnosed Date [...] as of this encounter (statuses as of 10/18/2023) Resolved Problems Problem Noted Date Diagnosed Date [...] as of this encounter (statuses as of 10/18/2023) Immunizations Name Administration Dates Next Due COVID-19 [...] encounter Miscellaneous Notes * Telephone Encounter - Farhan Germain RN - 10/18/2023 10:52 AM EDT Images from the original note were not included. Letter mailed to patient at address on file. Closing; inbasket clean-up. Provider to address: n/a Reason for Call: Test Results Contact: Letter Contact Type: Test Results Outcome: See above Face to face time spent with Patient (minutes): 0 Total Time including non face to face (minutes): 10 Farhan [facility] Primary Care Nurse Coordinator [facility] (Helping out) * Telephone Encounter - Farhan Germain RN - 10/14/2023 11:50 AM EDT Message sent via e[employer]. Provider to address: n/a Reason for Call: Test Results Contact: [facility] Contact Type: Test Results Outcome: See above Face to face time spent with Patient (minutes): 0 Total Time including non face to face (minutes): 10 Farhan [facility] Primary Care Nurse Coordinator [facility] (Helping out) * Telephone Encounter - Farhan Germain RN - 10/14/2023 11:46 AM EDT ----- Message from Orlin Castro MD sent at 10/14/2023 9:14 AM EDT ----- Lab ok except gfr slightly decreased, stay hydrated, recheck 3 months to follow documented in this encounter Plan of Treatment Upcoming Encounters Date Type Department Care Team (Late st Contact Info) Description 11/24/2023 8:45 AM EDT Office Visit Orthopaedics [facility] [address] [facility] [place] [address] Javon Bunn, [address] [facility] [place] [address] 11/30/2023 9:30 AM EDT Imaging Radiology [place] 1st [facility] 132 [facility] [place] [address] 12/15/2023 9:00 AM EDT Procedure Only Endoscopy, [facility] 132 [facility] [place] [address] Raymond Campbell MD [address] [facility] [place] [address] 12/31/2023 10:00 AM EDT Office Visit Pharmacy, [facility] 200 [place] [address] Pharmacist1, [facility] 200 [place] [address] 02/17/2024 7:50 AM EDT Office Visit Optometry, [place] [address] [place] [address] Rancho Chapman Jr., OD 16 [place] [address] 03/27/2024 8:40 AM EDT Office Visit Endocrinology, [place] [address] [place], [place] [address] Nhung Monzon MD [address] [place] [address] 04/24/2024 2:40 PM EDT Office Visit General Internal Medicine [facility] 200 [facility] [place] [address] Orlin Castro MD 200 [facility] [address] [facility] [place] [address] 05/08/2024 11:20 AM EST Office Visit Nephrology, [facility] 200 [facility] [place], [place] [address] Galindo Jean MD 200 [facility] [place], [place] [address] Health Maintenance Due Date Last Done Comments [...] Screening 06/22/2024 06/22/2023 CKD HGB USE SMARTSET 12335 08/03/202408/03, 08/03/2023, 07/02/2023, Additional history exists CKD PHOS USE SMARTSET 03773 08/23/202408/05, 08/03/2023, 07/02/2023, Additional history exists Mammogram [...] this encounter Medical Devices Implanted Type Area Pole Frame Construction Worker Device Identifier Shelf Expiration Date Model / Serial / Lot Stent Pancreatic Geenen 5fr - [id number] Implanted:Qty: 1 on 06/17/2010 at OR [facility] [employer] 03/18/2013 [id number] / / [id number] Stent 10fr 7cm - [id number] Implanted:Qty: 1 on 06/17/2010 at OR [facility] [employer] : RADHA [place] 01/15/2013 [id number] / / [id number] Description:pancreas documented as of this encounter Advance [...] the patient have Health Care Power of Medical Office Assistant? No Care Teams Leather Whitener Relationship Specialty Start Date End Date Orlin Castro MD 200 [place] [address] PCP - General Internal Medicine 04/27/19 documented as of this encounter
--- OUTSIDE RECORDS SUMMARY | 2024-01-23 13:00 | External Medical Summary | Summary of Care ---
Author Name Unknown Organization [facility] Address [address] [place] [address] Phone [phone] Care Team Providers Care Physicist Cryogenics Name Role Phone Orlin Castro MD Primary Care Provider + Reason for Visit * Reason Comments Medication Refill Encounter Details Date Type Department Care Team (Late st Contact Info) Description 11/26/2023 Refill Pharmacy, [facility] 200 [facility] [place] [address] Orlin Castro MD 200 [facility] [address] Mixed hyperlipidemia Allergies Active Allergy Reactions Criticality Noted Date Comments Zolpidem Tartrate Psych complications 6 Rosuvastatin 04/05/2020 Elevated lft Hydrochlorothiazide 12/29/2019 brenda Nsaids Other (Please comment) 04/14/2016 Gastric ulcer with anemia documented as of this encounter (statuses as of 11/26/2023) Medications Medication Sig Dispensed Refills Start Date [...] B, by GOLD 2017 classification ([facility]) Inhale via nebulizer . Use as directed. 1 Each 1 2 Active Ipratropium-Albute rol 0.5-2.5 (3) MG/3ML Inhalation Solution (Duoneb)Indication s:COPD, group B, by GOLD 2017 classification ([facility]) Inhale via nebulizer 3 mL every 6 [...] goal of less than 7.0% ([facility]) Use to test blood glucose 4 times [...] with supper. 180 Tablet 3 4 Active Repaglinide 1 MG Oral Tablet (Prandin)Indicatio ns:Type 2 diabetes mellitus with hemoglobin A1c goal of less than 7.0% (HCC) TAKE ONE-HALF TABLET BY MOUTH EVERY DAY WITH EVENING SNACK 45 Tablet 3 4 Active Ezetimibe 10 MG Oral Tablet (Zetia)Indications :Mixed hyperlipidemia TAKE ONE TABLET BY MOUTH EVERY DAY IN THE MORNING 90 Tablet 3 4 11/26/19 25 Active Ezetimibe 10 MG Oral Tablet (Zetia)Indications :Mixed hyperlipidemia TAKE ONE TABLET BY MOUTH EVERY DAY IN THE MORNING 90 Tablet 3 3 11/26/19 24 Discontinu ed(Refill) documented as of this encounter (statuses as of 11/26/2023) Active Problems Problem Noted Date Diagnosed Date [...] as of this encounter (statuses as of 11/26/2023) Resolved Problems Problem Noted Date Diagnosed Date [...] as of this encounter (statuses as of 11/26/2023) Immunizations Name Administration Dates Next Due COVID-19 [...] encounter Miscellaneous Notes * Telephone Encounter - Franklin Herrera RP - 11/26/2023 10:32 AM EDT Signed Prescriptions: Disp Refills Ezetimibe 10 MG Oral Tablet (Zetia) 90 Tab*3 Sig: TAKE ONE TABLET BY MOUTH EVERY DAY IN THE MORNINGAuthorizing Provider: ORLIN CASTRO User: FRANKLIN HERRERA documented in this encounter Plan of Treatment Upcoming Encounters Date Type Department Care Team (Latest Contact Info) Description 11/30/2023 9:30 AM EDT Imaging Radiology [address] 132 [facility] [place] [address] 12/31/2023 10:00 AM EDT Office Visit Pharmacy, [facility] [place] [address] [place] [address] Pharmacist1, [facility] [address] [place] [address] 02/17/2024 7:50 AM EDT Office Visit Optometry, [place] [address] [place] [address] Ari Staley, [place] OD 16 [place] [address] 03/01/2024 8:30 AM EDT Office Visit Orthopaedics [facility] [address] [place] [address] Javon Bunn DO [address] [place] [address] 03/27/2024 8:40 AM EDT Office Visit Endocrinology, [place] [address] [place] [address] Nhung Monzon MD [address] [place] [address] 04/24/2024 2:40 PM EDT Office Visit General Internal Medicine [facility] 200 [facility] [place] [address] Orlin Castro MD 200 [facility] [place] [address] 04/27/2024 11:55 AM EDT Hospital Encounter [place] [facility], Operating Room, [facility] - 4th Floor [address] [place] [address] Raymond Campbell MD [address] [place] [address] 04/27/2024 11:55 AM EDT - 04/27/2024 12:45 PM EDT Surgery OR [facility], Operating Room, [facility] - 4th Floor [address] [place] [address] Raymond Campbell MD [address] [place] [address] COLONOSCOPY FLEXIBLE PROXIMAL DIAGNOSTIC 05/08/2024 11:20 AM EST Office Visit Nephrology, [facility] [address] [place] [address] Galindo Jean MD [address] [place] [address] 07/04/2024 9:20 AM EST Office Visit General Internal Medicine [place] [place] 200 [facility] [place] [address] Orlin Castro MD 200 [facility] [place] [address] Scheduled Procedures Name Priority Associated Diagnoses Date/Ti [...] Screening 06/22/2024 06/22/2023 CKD HGB USE SMARTSET 18177 08/03/202408/03, 08/03/2023, 07/02/2023, Additional history exists CKD PHOS USE SMARTSET 47586 08/23/202408/05, 08/03/2023, 07/02/2023, Additional history exists Mammogram [...] this encounter Medical Devices Implanted Type Area Fine Arts Chair Device Identifier Shelf Expiration Date Model / Serial / Lot Stent Pancreatic Kelsin 5fr - [id number] Implanted:Qty: 1 on 06/17/2010 at OR [facility] [employer] 03/18/2013 [id number] / / [id number] Stent 10fr 7cm - [id number] Implanted:Qty: 1 on 06/17/2010 at [place] [facility] [employer] : RADHA [place] 01/15/2013 [id number] / / [id number] Description:pancreas documented as of this encounter Visit Diagnoses Diagnosis Mixed hyperlipidemia Family history of colonic polyps documented in [...] Power of Attor tanika? No Care Teams Physicist Cryogenics Relationship Specialty Start Date End Date Orlin Castro MD 200 [place] [address] PCP - General Internal Medicine 04/27/19 documented as of this encounter
--- OUTSIDE RECORDS SUMMARY | 2024-01-23 13:00 | External Medical Summary | Summary of Care ---
Author Name Unknown Organization [facility] Address [address] [place] [address] Phone [phone] Care Team Providers Care Forms Analysis Manager Name Role Phone Orlin Castro MD Primary Care Provider + Reason for Visit * Reason Onset Date Comments Test Results 10/14/2023 Encounter Details Date Type Department Care Team (Late st Contact Info) Description 10/14/2023 Telephone General Internal Medicine [facility] [address] [place] [address] Orlin Castro MD [address] [place] [facility] [place] [address] Test Results Allergies Active Allergy Reactions Criticality Noted Date Comments Zolpidem Tartrate Psych complications 6 Rosuvastatin 04/05/2020 Elevated lft Hydrochlorothiazide 12/29/2019 brenda Nsaids Other (Please comment) 04/14/2016 Gastric ulcer with anemia documented as of this encounter (statuses as of 10/14/2023) Medications Medication Sig Dispensed Refills Start Date End Date Status ON[facility]OUCH [facility] Use to test blood sugar 4 times daily dx e11.9 400 Each 3 03/09/2019 Active Misc. Devices [facility] Tracheostomy Care Kit #4601 1 Each 0 10/02/2019 Active Vitamin B-12 1000 MCG Oral Tablet Take 1 Tab by mouth daily. 90 Tab 3 03/07/2021 Active AvailinkTouch Verio Flex System w/Device Kit Use as directed. To test blood sugars up to 4 times a day Dx E11.22 1 Kit 0 04/03/2021 Active Misc. Devices Laryngectomy tube, size 10LGT 3 Each 0 07/29/2021 Active Misc. Devices Velcro Trach Ties for Laryngectomy Tube 15 Each 11 07/29/2021 Active Compressor NebulizerIndication s:COPD, group B, by GOLD 2017 classification ([facility]) Inhale via nebulizer . Use as directed. 1 Each 1 12/30/2021 Active Ipratropium-Albuter ol 0.5-2.5 (3) MG/3ML Inhalation Solution (Duoneb)Indications :COPD, group B, by GOLD 2017 classification ([facility]) Inhale via nebulizer 3 mL [...] hemoglobin A1c goal of less than 7.0% ([facility]) Use to test blood glucose [...] as of this encounter (statuses as of 10/14/2023) Active Problems Problem Noted Date Diagnosed Date [...] as of this encounter (statuses as of 10/14/2023) Resolved Problems Problem Noted Date Diagnosed Date [...] as of this encounter (statuses as of 10/14/2023) Immunizations Name Administration Dates Next Due COVID-19 [...] 10/14/2023 11:50 AM EDT Message sent via [employer]. Provider to address: n/a Reason for Call: Test Results Contact: Judy Thompson Contact Type: Test Results Outcome: See above Face to face time spent with Patient (minutes): 0 Total Time including non face to face (minutes): 10 Farhan Germain RN BSN [facility] Primary Care Nurse Coordinator [facility] (Helping out) * Telephone Encounter - [...] 11/24/2023 8:45 AM EDT Office Visit Orthopaedics [facility] [address] [place] [address] Javon Bunn, DO [address] [place] [address] 11/30/2023 9:30 AM EDT Imaging Radiology [facility] 1st [facility] [place] [address] [place] [address] 12/15/2023 9:00 AM EDT Procedure Only Endoscopy, Gabriele Garcia [address] [place] [address] Raymond Campbell MD [facility] [place] [place] [address] 12/31/2023 10:00 AM EDT Office Visit Pharmacy, [facility] [place] [address] [place] [address] Pharmacist1, [facility] [address] [place] [address] 02/17/2024 7:50 AM EDT Office Visit Optometry, [place] [address] [place] [address] Rancho Chapman Jr., OD [address] [place] [address] 03/27/2024 8:40 AM EDT Office Visit Endocrinology, [place] [address] [place] [address] Nhung Monzon MD [address] [place] [address] 04/24/2024 2:40 PM EDT Office Visit General Internal Medicine [facility] [address] [place] [address] Orlin Castro MD [address] [place] [address] 05/08/2024 11:20 AM EST Office Visit Nephrology, [facility] [address] [place] [address] Galindo Jean MD [address] [place] [address] Health Maintenance Due Date Last Done Comments *COPD SEVERITY VERIFIED BY PFT 08/02/2019 COVID-19 Vaccine (2022- season) 2023 07/07/2022, 02/15/2021, 01/09/2021, Additional history [...] Screening 06/22/2024 06/22/2023 CKD HGB USE SMARTSET 84078 08/03/202408/03, 08/03/2023, 07/02/2023, Additional history exists CKD PHOS USE SMARTSET 50619 08/23/202408/05, 08/03/2023, 07/02/2023, Additional history exists Mammogram [...] this encounter Medical Devices Implanted Type Area Conversion Worker Device Identifier Shelf Expiration Date Model / Serial / Lot Stent Pancreatic Geenen 5fr - [id number] Implanted:Qty: 1 on 06[place]17/[place] [facility] [place] [employer] 03/18/2013 [id number] / / [id number] Stent 10fr 7cm - [id number] Implanted:Qty: 1 on 06/17/2010 [place] [facility] [place] [employer] : RADHA [place] 01/15/2013 [id number] / / [id number] Description:pancreas documented as of this encounter Advance [...] patient have Health Care Power of Consumer Marketing Manager? No Care Teams Forms Analysis Manager Relationship Specialty Start Date End Date Orlin Castro MD [address] [place] [phone] PCP - General Internal Medicine 04/27/19 documented as of this encounter
--- OUTSIDE RECORDS SUMMARY | 2024-01-23 13:01 | External Medical Summary | Summary of Care ---
Author Name Unknown Organization [facility] Address [address] [place] [address] Phone [phone] Care Team Providers Care Operations Associate Name Role Phone Orlin Castro MD Primary Care Provider + Reason for Visit * Reason Comments Outpatient Testing Encounter Details Date Type Department Care Team (Late st Contact Info) Description 09/30/2023 9:10 AM EDT Laboratory Laboratory [facility] [address] [place] [address] [facility] [place] [address] Adrenal nodule (HCC) Allergies Active Allergy Reactions Criticality Noted Date Comments Zolpidem Tartrate Psych complications 6 Rosuvastatin 04/05/2020 Elevated lft Hydrochlorothiazide 12/29/2019 brenda Nsaids Other (Please comment) 04/14/2016 Gastric ulcer with anemia documented as of this encounter (statuses as of 09/30/2023) Medications Medication Sig Dispensed Refills Start Date [...] s:COPD, group B, by GOLD 2017 classification ([facility]) Inhale via nebulizer . Use as directed. 1 Each 1 12/30/2021 Active Ipratropium-Albuter ol 0.5-2.5 (3) MG/3ML Inhalation Solution (Duoneb)Indications :COPD, group B, by GOLD 2017 classification ([facility]) Inhale via nebulizer 3 mL [...] 90 Tablet 3 09/16/2022 10/18/19 24 Active Tiotropium [place] Monohydrate 2.5 MCG/ACT Inhalation Aerosol Solution (Spiriva Respimat)Indication s:COPD, group B, by GOLD 2017 classification ([facility]) INHALE 2 PUFFS BY MOUTH IN THE MORNING 12 g 3 08/07/2022 10/06/19 24 Active Additional Information Patient taking differently:2 Puff Inhalation Daily(AM),Hasn't started it yet, Reported on 08/12/2022 OneTouch Trifactamiguel In Vitro Strip (Glucose Blood)Indications:T ype 2 diabetes mellitus with hemoglobin A1c goal of less than 7.0% ([facility]) Use to test blood glucose [...] hemoglobin A1c goal of less than 7.0% ([facility]) Take 1 Tablet by mouth 2 times [...] TIMES DAILY 270 Tablet 1 07/08/2023 Active predniSONE 20 MG Oral Tablet (Deltasone) Take 3 tabs for 3 days, 2 tabs for 3 days, 1 tab for 3 days, 1/2 tab for 3 days 20 Tablet 0 07/09/2023 Active Sucralfate 1 GM Oral Tablet (Carafate)Indicatio [...] as of this encounter (statuses as of 09/30/2023) Active Problems Problem Noted Date Diagnosed Date Hypertensive kidney disease with chronic kidney disease [...] as of this encounter (statuses as of 09/30/2023) Resolved Problems Problem Noted Date Diagnosed Date [...] as of this encounter (statuses as of 09/30/2023) Immunizations Name Administration Dates Next Due COVID-19 [...] Care Team (Late st Contact Info) Description 09/30/2023 10:10 AM EDT Office Visit Pharmacy, [facility] [address] [place] [address] Pharmacist1, [facility] [address] [place] [address] 09/30/2023 10:40 AM EDT Office Visit General Internal Medicine [facility] [place] [address] [place] [address] Orlin Castro MD [address] [place] [address] 10/05/2023 3:30 PM EDT Office Visit Dermatology [facility] [place] [address] [place] [address] Ling Capellan PA-C [address] [facility] [place] [address] 10/13/2023 9:00 AM EDT Laboratory Laboratory, [facility] [address] [facility] [place] [address] [facility] [address] [place] [address] 11/24/2023 8:45 AM EDT Office Visit Orthopaedics [facility] [address] [place] [address] Javon Bunn, [address] [place] [address] 11/30/2023 9:30 AM EDT Imaging [facility] [address] [place] [address] 12/15/2023 9:00 AM EDT Procedure Only Endoscopy, [facility] [address] [place] [address] Raymond Campbell MD [address] [place] [address] 02/17/2024 7:50 AM EDT Office Visit Optometry, [place] [address] [place] [address] Rancho Chapman Jr. [address] [place] [address] 03/27/2024 8:40 AM EDT Office Visit Endocrinology, [place] [address] [place] [address] Nhung Monzon MD [address] [place] [address] 05/08/2024 11:20 AM EST Office Visit Nephrology, [place] [address] [place] [address] Galindo Jean MD [address] [place], [place] [address] Pending Results Name Type Priority Associated Diagnoses Date /Time CORTISOL, POST 1MG DEXAMETHASONE SUPRESSION Lab Routine Adrenal nodule (HCC) 09/30/2023 7:57 AM EDT DEXAMETHASONE Lab Routine Adrenal nodule (HCC) 09/30/2023 7:57 AM EDT Health Maintenance Due Date Last Done Comments *COPD SEVERITY VERIFIED BY PFT 08/02/2019 COVID-19 Vaccine ( season) 2023 07/07/2022, 02/15/2021, 01/09/2021, Additional history exists Diabetic Foot Exam 08/07/2023 08/07/2022, 0 08/21/2021, 10/22/2020, Additional history exists HbA1c 11/29/2023 05/31/2023, 03/06, 03/15/2023, Additional history exists COLONOSCOPY-ANNUAL AGES 18-100 12/18/2023 12/17/2022, 12/17/2022, 04/29/2021, Additional history exists Diabetic Eye Exam 01/13/2024 01/12/2023, , 01/12/2023, Additional history exists GFR 02/21/2024 08/23/2023, 07/07, 07/02/2023, Additional history exists TSH 03/15/2024 03/15/2023, 05/05, 03/06/2022, Additional history exists Albumin/Creatinine Ratio 05/05/2024 023, 05/14/2022, 05/01/2022, Additional history exists Depression Screening 06/22/2024 06/22/2023 CKD HGB USE SMARTSET 27931 08/03/202408/03, 08/03/2023, 07/02/2023, Additional history exists CKD PHOS USE SMARTSET 31932 08/23/202408/05, 08/03/2023, 07/02/2023, Additional history exists O2 ASSESSMENT COMPLETED IN PAST YEAR FOR COPD 08/23/2024 08/23/2023 Mammogram 09/13/2024 09/14/2023, 09/02, 09/11/2022, Additional history exists DXA Scan 05/12/2026 05/12/2022, 05/12/2022 Lipid Panel 10/27/2027 10/26/2022, 09/0 08/2021, [...] this encounter Medical Devices Implanted Type Area Boarder Machine Device Identifier Shelf Expiration Date Model / Serial / Lot Stent Pancreatic Geenen 5fr - [id number] [place]planted:Q[place] 1 [place] [facility] [place] [employer] [place]/18/2013 [id number] / / [id number] Stent 10fr 7cm - [id number] [place]planted:Q[place] 1 [place] 06[place]17[place] [facility] [place] RADHA [place] 01/15/2013 [id number] / / [id number] Description:pancreas documented as of this encounter Visit Diagnoses Diagnosis Adrenal nodule (HCC) Other specified disorders of adrenal glands documented in this encounter Advance Directives Latest [...] the patient have Health Care Power of Contact Center Agent? No Care Teams Operations Associate Relationship Specialty Start Date End Date Orlin Castro MD [address] [facility] [place] [address] PCP - General Internal Medicine 04/27/19 documented as of this encounter
--- OUTSIDE RECORDS SUMMARY | 2024-01-23 13:01 | External Medical Summary | Summary of Care ---
Author Name Unknown Organization [facility] Address [address] [place] [address] Phone [phone] Care Team Providers Care Hr Director Name Role Phone Orlin Castro MD Primary Care Provider + Reason for Visit * Reason Comments Follow Up 6 month follow up - pt denied any new concerns Encounter Details Date Type Department Care Team (Late st Contact Info) Description 09/30/2023 10:40 AM EDT Office Visit General Internal [facility] [place] [address] [facility] [place], [place] [id number] Orlin Castro MD [address] [place] [address] Type 2 diabetes mellitus with hemoglobin A1c goal of less than 7.0% ([facility])*; Mixed hyperlipidemia; Chronic obstructive pulmonary disease, unspecified COPD type ([facility]); Psoriasis; Dilation of pancreatic duct; Postsurgical hypothyroidism; Tracheostomy status ([facility]); Adrenal nodule ([facility]); DM type 2 nursing care encounter ([facility]); Encounter for long-term (current) use of medications; Elevated LFTs; Hypertension goal BP (blood pressure) < 140/90; Decreased GFR Allergies Active Allergy Reactions Criticality [...] ns:COPD, group B, by GOLD 2017 classification ([facility]) Inhale via nebulizer . Use as directed. 1 Each 1 2 Active Ipratropium-Albute rol 0.5-2.5 (3) MG/3ML Inhalation Solution (Duoneb)Indication s:COPD, group B, by GOLD 2017 classification ([facility]) Inhale via nebulizer 3 mL every [...] 3 Active Ezetimibe 10 MG Oral Tablet (Zetia)Indications :Mixed hyperlipidemia TAKE ONE TABLET BY MOUTH EVERY DAY IN THE MORNING 90 Tablet 3 3 12/10/19 24 Active Cyclobenzaprine HCl 10 MG Oral Tablet (Flexeril)Indicati ons:Spasm of muscle TAKE ONE TABLET BY MOUTH AT BEDTIME NEEDED FOR MUSCLE SPASMS. 90 Tablet 3 3 10/18/19 24 Active OneTouch Verio In Vitro Strip (Glucose Blood)Indications: Type 2 diabetes mellitus with hemoglobin A1c goal of less than 7.0% ([facility]) Use to test blood glucose 4 [...] hemoglobin A1c goal of less than 7.0% ([facility]) Take 1 Tablet by mouth 2 times [...] 90 Tablet 3 4 09/29/19 25 Active Tiotropium [place] Monohydrate 2.5 MCG/ACT Inhalation Aerosol Solution (Spiriva Respimat)Indicatio ns:COPD, group B, by GOLD 2017 classification ([facility]) INHALE 2 PUFFS BY MOUTH IN THE MORNING 12 g 3 3 10/06/19 24 Additional Information Patient taking differently: 2 Puff Inhalation Daily(AM), Reported on 09/30/2023 Amoxicillin-Pot Clavulanate 875-125 MG Oral Tablet (Augmentin)Indicat ions:Acute cough Take 1 Tablet by mouth in the morning and 1 Tablet before bedtime. Do all this for 7 days. 14 Tablet 0 3 09/30/19 24 Discontinu ed(Patient preference /discontin uation) predniSONE 20 MG Oral Tablet (Deltasone) Take 3 tabs for 3 days, 2 tabs for 3 days, 1 tab for 3 days, 1/2 tab for 3 days 20 Tablet 0 4 09/30/19 24 Discontinu ed(Medicat ion List Clean Up) documented as of this encounter (statuses as [...] 0 07/05/1976 - 07/05/2006 Smokeless Tobacco: Never Tobacco Cessation:Counseling Given: [...] Sign Reading Time Taken Comments Blood Pressure 110/70 09/30/2023 10:33 AM EDT Pulse 67 09/30/2023 10:33 AM EDT Temperature 35.5 C (95.9 F) 09/30/2023 10:33 AM E DT Respiratory Rate - - Oxygen Saturation 98% 09/30/2023 10:33 AM EDT Inhaled Oxygen Concentration - - Weight 77.1 kg (170 lb) 09/30/2023 10:33 AM EDT Height 162.6 cm (5' 4") 09/30/2023 10:33 AM EDT Body Mass Index 29.18 09/30/2023 10:33 AM EDT documented in this [...] this encounter Patient Instructions * Patient Instructions* Tonie Green MED ASSIST - 09/30/2023 10:38 AM EDT Diabetes: Keeping Feet Healthy Inspect your feet every day for signs of a problem. Diabetes can damage nerves in your feet and cause neuropathy. This condition makes it hard for you to feel injuries or sore spots. Diabetes can also change blood flow, making it harder for small problems, like a blister, to heal properly. In fact, minor injuries can quickly become serious infections that send you to the hospital. Practice self-care to protect your feet and keep them healthy. Take Special Care Inspect your feet daily for problems such as redness, blisters, cracks, dry skin, or numbness. Use a mirror to see the bottoms of your feet. Or, ask for help. Manage your diabetes. Monitor and control your blood sugar. Take all your medications as prescribed. Avoid walking barefoot, even indoors. Wash your feet with warm water and mild soap. Dry well, especially between toes. Dont treat corns or calluses yourself. Talk to your doctor or manager integrated (a doctor who specializes in foot care) if you need assistance trimming your toenails. Use moisturizing cream or lotion if you have dry skin, but dont use it between toes. Dont use heating pads on your feet. If you have neuropathy, you could get a burn and not feel it. Stop smoking. Smoking restricts blood flow and can make it harder for wounds to heal. Have Regular Checkups Foot problems can develop quickly. So be sure to follow your healthcare teams schedule for regular checkups. During office visits, take off your shoes and socks as soon as you get in the exam room. Ask your healthcare provider to examine your feet for problems. This will make it easier to find and treat small skin irritations before they get worse. Regular checkups can also help keep track of the blood flow and feeling in your feet. If you have neuropathy, you may need to have checkups more often. Wear Proper Footwear Wearing proper footwear is very important. If areas of your feet have been damaged by too much pressure, your healthcare provider may recommend changing your footwear. In some cases, avoiding high heels or tight work boots may be all thats needed. Or, your healthcare provider may recommend special shoes or custom inserts. These help protect your feet and keep existing irritations from getting worse. If you need special footwear, ask your healthcare provider if you qualify for [employer] diabetic shoe program. Make Sure Shoes and Socks Fit Any pair of shoes--new or old--should feel comfortable as soon as you put them on. There shouldnt be any rubbing when you walk. Wear the right shoe for any activity. For instance, a running shoe is designed to keep your feet injury-free while jogging. Buy shoes at the end of the day, when your feet are larger. Make sure they provide support without feeling too loose. Make sure your socks fit, t oo. Wear soft, seamless, well-padded socks for activity. Cotton or microfiber socks are best to help to absorb sweat. To protect your feet, avoid shoes that are open-toed or open-heeled. If you have questions about what kinds of shoes and socks are best, talk to your healthcare team. Get Regular Exercise Regular exercise improves blood flow in your feet. It also increases foot strength and flexibility.Gentle exercises, like walking or riding a stationary bicycle, are best. You can also do special foot exercises. Just be sure to talk with your healthcare provider before starting any exercise program. Also mention if any exercise causes pain, redness, or other signs of foot problems. Note: If you have any kind of break in the skin of your foot or ankle, keep the area clean. Then call your doctor--especially if the area doesnt appear to be healing. [phone] [employer], [address] [place] [address], [place] [address]. All rights reserved. This information is not intended as a substitute for professional medical care. Always follow your healthcare professional's instructions. documented in this encounter Progress Notes * Orlin Castro MD - 09/30/2023 10:49 AM EDT Chief Complaint Patient presents with Follow Up 6 month follow up - pt denied any new concerns SUBJECTIVE: Mallory Soto is a 67 year old female with PMH as below who presents for follow up of DM, lipids,COPD. No cp, pressure, sob ,hawkins, feels good. Did have uri 2-3 weeks ago, resolved, sees pulmonary now for COPD. Follows with endocrine for adrenal nodule, h/o thyroid cancer. Trach doing ok. Has scopes scheduled with Dr. Campbell who she sees for h/o pancreatic cancer, FH FAP. Sugars are good now, were higher end of winter when on prednisone for uri Patient Active Problem List Diagnosis Code Insomnia G47.00 Postsurgical hypothyroidism E89.0 Tracheostomy status ([facility]) Z93.0 Mitral valve regurgitation I34.0 History of thyroid cancer Z85.850 Type 2 diabetes mellitus with hemoglobin A1c goal of less than 7.0% ([facility]) E11.9 Hypertension goal BP (blood pressure) < 140/90 I10 History of pancreatic cancer Z85.07 Family history of familial adenomatous polyposis Z83.710 Gastroesophageal reflux disease without esophagitis K21.9 Mixed hyperlipidemia E78.2 COPD, group B, by GOLD 2017 classification ([facility]) J44.9 Obesity, Class I, BMI 30.0-34.9 (see actual BMI) E66.9 Diabetes mellitus with proteinuria (HCC) E11.29, R80.9 Psoriasis L40.9 Pancreatic duct dilated K86.89 Adrenal nodule (HCC) E27.8 Primary aldosteronism (HCC) E26.09 Type 2 diabetes mellitus with stage 3 chronic kidney disease, without long-term current use of insulin (HCC) E11.22, N18.30 Stage 3 chronic kidney disease (HCC) N18.30 Hypertensive kidney disease with chronic kidney disease stage III (HCC) I12.9, N18.30 Chronic obstructive pulmonary disease (HCC) J44.9 Current Outpatient Medications Medication Sig Dispense Refill [...] FOR MUSCLE SPASMS. 90 Tablet 3 Tiotropium [place] Monohydrate 2.5 MCG/ACT Inhalation Aerosol Solution (Spiriva Respimat) INHALE 2 PUFFS BY MOUTH IN THE MORNING (Patient taking differently: Inhale 2 Puffs by mouth in the morning.) 12 g 3 CreoptixTouch Verio In Vitro Strip (Glucose Blood) Use [...] VERIFIED BY PFT Never done COVID-19 Vaccine (2022- season) 2023 ROS: CONSTITUTIONAL: No change in weight, No weakness, and No fevers, sweats, or chills EYE: No recent significant change in vision, No eye pain, redness, discharge, EARS: No ear pain, No drainage, No tinnitus or vertigo, and No recent change in hearing PULMONARY: No recent change in breathing CARDIOVASCULAR: [...] level: Not on file Occupational History 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 No mold. 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 FAP---[facility] Family history of familial adenomatous polyposis 03/10/2019 [...] Dr Allen & Dr ESCOBEDO at ENDOSCOPY [facility] ANESTH, UPPER GI ENDOSCOPIC PROCS 08/18/2010 ANESTHESIA FOR UPPER GI ENDOSCOPIC PROCEDURES (ERCP OR UPPER GI) performed by ALICIA MATHEWS at ENDOSCOPY [facility] BREAST BIOPSY Left Benign BREAST BIOPSY Left Benign BREAST BIOPSY Left Benign COLONOSCOPY, DIAGNOSTIC (RECTUM) 09/10/2011 COLONOSCOPY FLEXIBLE PROXIMAL DIAGNOSTIC performed by ALICIA MATHEWS at ENDOSCOPY [facility] COLONOSCOPY, DIAGNOSTIC (RECTUM) 01/13/2012 COLONOSCOPY FLEXIBLE PROXIMAL DIAGNOSTIC performed by Alicia Mathews DO at [facility] COLONOSCOPY, DIAGNOSTIC (RECTUM) 07/21/2012 COLONOSCOPY FLEXIBLE PROXIMAL DIAGNOSTIC performed by Alicia Mathews DO at ENDOSCOPY [facility] COLONOSCOPY, DIAGNOSTIC (RECTUM) 01/13/2013 COLONOSCOPY FLEXIBLE PROXIMAL DIAGNOSTIC performed by Alicia Mathews DO at ENDOSCOPY [facility] COLONOSCOPY, DIAGNOSTIC (RECTUM) 01/19/2014 COLONOSCOPY FLEXIBLE PROXIMAL DIAGNOSTIC performed by Alicia Mathews DO at ENDOSCOPY [facility] COLONOSCOPY, DIAGNOSTIC (RECTUM) N/A 09/27/2014 COLONOSCOPY FLEXIBLE PROXIMAL DIAGNOSTIC performed by Alicia Mathews DO at ENDOSCOPY [facility] COLONOSCOPY, DIAGNOSTIC (RECTUM) N/A 03/15/2015 COLONOSCOPY FLEXIBLE PROXIMAL DIAGNOSTIC performed by Alicia Mathews DO at [facility] COLONOSCOPY, DIAGNOSTIC (RECTUM) N/A 06/13/2015 COLONOSCOPY FLEXIBLE PROXIMAL DIAGNOSTIC performed by Alicia Mathews DO at ENDOSCOPY [facility] COLONOSCOPY, DIAGNOSTIC (RECTUM) 04/08/2016 normal/inpt [facility] COLONOSCOPY, DIAGNOSTIC (RECTUM) 07/02/2017 COLONOSCOPY FLEXIBLE PROXIMAL DIAGNOSTIC performed by Alicia Mathews DO at ENDOSCOPY [facility] COLONOSCOPY, DIAGNOSTIC (RECTUM) N/A 08/30/2018 COLONOSCOPY FLEXIBLE PROXIMAL DIAGNOSTIC performed by Alicia Mathews DO at [facility] COLONOSCOPY, DIAGNOSTIC (RECTUM) 12/03/2021 benign adenomatous polyps, repeat 1 yr / [facility] COLONOSCOPY, DIAGNOSTIC (RECTUM) 12/17/2022 adenomatous polyp, repeat 1 yr / [facility] EGD, FLEXIBLE, DIAGNOSTIC 09/10/2011 UPPER GI ENDOSCOPY DIAGNOSTIC performed by ALICIA MATHEWS at ENDOSCOPY [facility] EGD, FLEXIBLE, DIAGNOSTIC 07/21/2012 UPPER GI ENDOSCOPY DIAGNOSTIC performed by Alicia Mathews DO at ENDOSCOPY [facility] EGD, FLEXIBLE, DIAGNOSTIC N/A 05/14/2016 ESOPHAGOGASTRODUODENOSCOPY (EGD), FLEXIBLE, TRANSORAL, DIAGNOSTIC performed by Alicia Mathews DO at ENDOSCOPY [facility] EGD, FLEXIBLE, DIAGNOSTIC 04/08/2016 anastamotic ulcer/inpt [facility] EGD, FLEXIBLE, DIAGNOSTIC N/A 07/02/2017 ESOPHAGOGASTRODUODENOSCOPY (EGD), FLEXIBLE, TRANSORAL, DIAGNOSTIC performed by Alicia Mathews DO at ENDOSCOPY [facility] EGD, FLEXIBLE, DIAGNOSTIC N/A 08/30/2018 ESOPHAGOGASTRODUODENOSCOPY (EGD), FLEXIBLE, TRANSORAL, DIAGNOSTIC performed by Alicia Mathews DO at ENDOSCOPY [facility] EGD, FLEXIBLE, DIAGNOSTIC 12/03/2021 normal, repeat 1 yr / [facility] EGD, FLEXIBLE, DIAGNOSTIC 12/17/2022 normal, repeat 1 yr / [facility] EGD, W/ENDOSCOPIC US 08/11/2012 UPPER GI ENDOSCOPY ENDOSCOPIC ULTRASOUND performed by Garcia Casey MD at ENDOSCOPY [facility] EGD, W/ENDOSCOPIC US 11/04/2012 UPPER GI ENDOSCOPY ENDOSCOPIC ULTRASOUND performed by Garcia Casey MD at ENDOSCOPY [facility] EGD, W/ENDOSCOPIC US N/A 05/08/2021 ESOPHAGOGASTRODUODENOSCOPY (EGD), FLEXIBLE, TRANSORAL, ENDOSCOPIC ULTRASOUND performed by Jane Gutierrez MD at ENDOSCOPY [facility] ERCP, DIAGNOSTIC, SPECIMEN COLLECTION 09/14/2012 ENDOSCOPIC RETROGRADE CHOLANGIOPANCREATOGRAPHY DIAGNOSTIC performed by Garcia Casey MD at ENDOSCOPY [facility] ERCP, DIAGNOSTIC, SPECIMEN COLLECTION 11/04/2012 ENDOSCOPIC RETROGRADE CHOLANGIOPANCREATOGRAPHY DIAGNOSTIC performed by Garcia Casey MD at ENDOSCOPY [facility] MAINE FLEX SIGMOID DIAGNOSITIC N/A 09/18/2019 SIGMOIDOSCOPY FLEXIBLE DIAGNOSTIC performed by Alicia Mathews DO at ENDOSCOPY [facility] MUSCLE/FASCIA DEBRIDEMENT, FIRST 20 CM2 N/A 11/29/2020 DEBRIDEMENT SKIN SUBCUTANEOUS TISSUE AND MUSCLE performed by Howard Montes De Oca DO at OR [facility] OTHER 2007 tracheostomy & laryngectomy REMOVAL OF COLON/ILEOSTOMY 1976 x3 REMOVAL OF THYROID GLAND 2007 Thyroidectomy REMOVE PANCREAS, PARTIAL ([place]) 06/17/2010 PANCREATECTOMY PROXIMAL WITH TOTAL DUODENECTOMY, Dr CIFUENTES REMOVE PANCREAS, PARTIAL ([place]IP[place]) 12/02/2012 12/02/2012 PANCREATECTOMY PROXIMAL WITH SUBTOTAL DUODENECTOMY performed by Julio C Cifuentes MD at OR [facility] REPAIR INITIAL INCISIONAL OR VENTRAL HERNIA; REDUCIBLE 12/15/2021 done at [facility] by Dr Aayush Estrella REPAIR WINDPIPE OPENING, COMPLEX 06/02/2021 TRACHEOSTOMA REVISION WITH FLAP performed by Howard Montes De Oca DO at OR [facility] REPAIR WINDPIPE OPENING, SIMPLE N/A 08/07/2015 TRACHEOSTOMA REVISION SIMPLE performed by Howard Montes De Oca DO at OR [facility] REPAIR WINDPIPE OPENING, SIMPLE Bilateral 11/29/2020 TRACHEOSTOMA REVISION SIMPLE performed by Howard Montes De Oca DO at OR [facility] SIGMOIDOSCOPY, DIAGNOSTIC N/A 10/15/2020 SIGMOIDOSCOPY FLEXIBLE DIAGNOSTIC performed by Alicia Mathews DO at ENDOSCOPY [facility] SIGMOIDOSCOPY, DIAGNOSTIC N/A 04/29/2021 SIGMOIDOSCOPY FLEXIBLE DIAGNOSTIC performed by Monae Batista DO at ENDOSCOPY [facility] US GUIDED BREAST BIOPSY RIGHT Right Benign Family History Problem Relation Age of Onset Colon cancer Father Colon polyps Father Colon cancer Sister Colon polyps Sister No Known Problems Sister No Known Problems Sister No Known Problems Brother No Known Problems Brother Thyroid Disorder No significant family history OBJECTIVE: PHYSICAL EXAM: BP 110/70 | Pulse 67 | Temp 35.5 C (95.9 F) (Tympanic) | Ht 1.626 m (5' 4") | Wt 77.1 kg (170 lb) | SpO2 98% | BMI 29.18 kg/m | BSA 1.87 m General: alert, healthy, and no distress Head: Normocephalic, No masses, lesions, or abnormalities Eye Exam: conjunctiva are pink and non-injected, sclera clear Ears: External ears normal, Canals clear, TM's Normal Heart: regular rate & rhythm, no murmur, no gallops, PMI non-displaced, S-1 normal, and S-2 normal Lungs: normal respiratory rate and rhythm, lungs clear to auscultation NecK stoma site appears clean Psych: normal affect, no flight of ideas or tangential thought, good eye contact, no pressured speech I reviewed last lft 09/28/23 cardiology: Hypertension goal BP (blood pressure) < 140/90 (Primary) Patient with history of bilateral small adrenal adenomas noted on MRI of the abdomen in 2020 in 2021. The aldosterone to renin level had been elevated. 24 hour urine metanephrines negative at that time. Historically, potassium has been stable. Continue therapy with carvedilol, losartan, amlodipine at current doses. Mixed hyperlipidemia Patient with history of elevation in AST, ALT, and alkaline phosphatase, most recent measurements 08/23/2023. Patient underwent an MRI/MRCP in 2022 with noted findings of hepatic steatosis, biliary findings were stable. She was not on statin therapy due to the LFT abnormalities, and has been maintained on ezetimibe with acceptable cholesterol levels, LDL less than 100 milligrams/deciliter her most recent measurement. Historically there had been concern about mitral regurgitation. Most recent echocardiogram performed in 2017 revealed significant MR. No significant murmur appreciated on exam today. ASSESSMENT: E11.9 Type 2 diabetes mellitus with hemoglobin A1c goal of less than 7.0% ([facility]) (primary encounter diagnosis) E78.2 Mixed hyperlipidemia J44.9 Chronic obstructive pulmonary disease, unspecified COPD type ([facility]) L40.9 Psoriasis K86.89 Dilation of pancreatic duct E89.0 Postsurgical hypothyroidism Z93.0 Tracheostomy status ([facility]) E27.8 Adrenal nodule ([facility]) E11.9 DM type 2 nursing care encounter ([facility]) Z79.899 Encounter for long-term (current) use of medications R79.89 Elevated LFTs I10 Hypertension goal BP (blood pressure) < 140/90 PLAN: Type 2 diabetes mellitus with hemoglobin A1c goal of less than 7.0% ([facility]) (Primary) Appreciate mtm aid Cont repaglinide, metformin Mixed hyperlipidemia - BASIC METABOLIC PANEL; Future; Expected date: 09/30/2023 - LIPID PANEL WITH DIRECT LDL IF TG IS HIGH; Future; Expected date: 09/30/2023 Recheck Cont zetia Chronic obstructive pulmonary disease, unspecified COPD type (HCC) Cont nebs, inhalers Appreciate pulm aid Psoriasis Sees derm Dilation of pancreatic duct Sees gi Postsurgical hypothyroidism Cont levothyroxine per endocrine Tracheostomy status (HCC) Sees ent Adrenal nodule (HCC) Await endocrine work up DM type 2 nursing care encounter (HCC) - DIABETES FOOT EXAM Encounter for long-term (current) use of medications - VITAMIN B12; Future; Expected date: 09/30/2023 - IRON SCREEN, INCLUDING TIBC; Future; Expected date: 09/30/2023 - FERRITIN; Future; Expected date: 09/30/2023 Hypertension goal BP (blood pressure) < 140/90 Cont amlodipine, coreg, losartan Follow Up: Return in about 6 months (around 04/01/2024), or if symptoms worsen or fail to improve, for Fasting Labs Soon. | For: Fasting Labs Soon Orlin Castro MD * Tonie Green MED ASSIST - 09/30/2023 10:37 AM EDT DM Foot Exam completed today. Provider aware. YSABEL Canas Socks and Shoes Removed for Annual Diabetic Foot Screening RIGHT FOOT: No Reddened, Cracking, Or Open Areas Noted. RIGHT Dorsalis Pedis Pulse: Palpable RIGHT Posterior Tibial Pulse: Palpable RIGHT Monofilament:Patient reports feeling monofilament pressure on plantar surface of foot LEFT FOOT: No Reddened, Cracking or Open Areas Noted. LEFT Dorsalis Pedis Pulse: Palpable LEFT Posterior Tibial Pulse: Palpable LEFT Monofilament:Patient reports feeling monofilament pressure on plantar surface of foot Do you need diabetic shoes: No documented in this encounter Nursing Notes * Tonie Green MED ASSIST - 09/30/2023 10:36 AM EDT Chief Complaint Patient presents with Follow Up 6 month follow up - pt denied any new concerns documented in this encounter Miscellaneous Notes * Addendum Note - Orlin Castro MD - 10/14/2023 9:15 AM EDTAddended by: ORLIN CASTRO on: 10/14/2023 09:15 AM Modules accepted: Orders documented in this encounter Plan of Treatment Upcoming Encounters Date Type Department Care Team (Late st Contact Info) Description 11/24/2023 8:45 AM EDT Office Visit Orthopaedics [facility] [address] [place] [address] Javon Bunn DO [address] [place] [address] 11/30/2023 9:30 AM EDT Imaging Radiology [facility] [address] [facility] [place] [address] 12/15/2023 9:00 AM EDT Procedure Only [facility], [facility] [address] [facility] [place] [address] Raymond Campbell MD [address] [place] [address] 12/31/2023 10:00 AM EDT Office Visit Pharmacy, [facility] [place] [address] [facility] [place] [address] Pharmacist1, [facility] [address] [place] [address] 02/17/2024 7:50 AM EDT Office Visit Optometry, [place] [address] [place] [address] [place] [address] Ari Staley, [place]o Bullard OD [address] [place] [address] 03/27/2024 8:40 AM EDT Office Visit Endocrinology, [place] [address], [place] [address] Nhung Monzon MD [address] [place] [address] 04/24/2024 2:40 PM EDT Office Visit General Internal Medicine [facility] [address] [facility] [place] [address] Orlin Castro MD [address] [facility] [place] [address] 05/08/2024 11:20 AM EST Office Visit Nephrology, [facility] [address] [facility] [place] [address] Galindo Jean MD [address] [place] [address] Scheduled Orders Name Type Priority Associated Diagnoses Orde r Schedule BASIC METABOLIC PANEL Lab Routine Decreased GFR Expected: 01/13/2024 (Approximate), Expires: 10/13/2024 Health Maintenance Due Date Last Done Comments [...] Screening 06/22/2024 06/22/2023 CKD HGB USE SMARTSET 16521 08/03/202408/03, 08/03/2023, 07/02/2023, Additional history exists CKD PHOS USE SMARTSET 15353 08/23/202408/05, 08/03/2023, 07/02/2023, Additional history exists Mammogram [...] this encounter Medical Devices Implanted Type Area Tree Scout Device Identifier Shelf Expiration Date Model / Serial / Lot Stent Pancreatic Geenen 5fr - [id number] Implanted:Qty: 1 on 06/17/2010 at OR [facility] [place] [employer] 03/18/2013 [id number] / / [id number] Stent 10fr 7cm - [id number] Implanted:Qty: 1 on 06/17/2010 at OR [facility] [place] NAN : RADHA MONTANA 01/15/2013 [id number] / / [id number] Description:pancreas documented as of this encounter Results * FERRITIN (10/13/2023 9:06 AM EDT) Ferritin 74 13 - 150 ng/mL 10/13/2023 3:01 PM EDT LABORATORY [facility] Comment:Postmenopausal women have higher ferritin levels than pre-menopausal women. The above reference interval is based on pre-menopausal women. Blood Venous blood specimen / Unknown Venipuncture / Unknown 10/13/2023 9:06 AM EDT 10/13/2023 9:06 AM EDT Orlin Castro MD LAB BLOOD ORDERA BLES LABORATORY [facility] [address] [place] [address] * IRON SCREEN, INCLUDING TIBC (10/13/2023 9:06 AM EDT) Iron 64 33 - 151 ug/dL 10/13/2023 2:20 PM EDT LABORATORY [facility] Iron Binding Capacity 317 250 - 425 ug/dL 10/13/2023 2:20 PM EDT LABORATORY [facility] Transferrin Saturation Percent 20 15 - 55 % 10/13/2023 2:20 PM EDT LABORATORY [facility] Blood Venous blood specimen / Unknown Venipuncture / Unknown 10/13/2023 9:06 AM EDT 10/13/2023 9:06 AM EDT Orlin Castro MD LAB BLOOD ORDERA BLES Performing Organization Address City/[facility]/ZIP Co de Phone Number LABORATORY [facility] [address] [place] [address] * VITAMIN B12 (10/13/2023 9:06 AM EDT) Vitamin B12 482 232 - 1,245 pg/mL 10/13/2023 3:01 PM EDT LABORATORY [facility] Blood Venous blood specimen / Unknown Venipuncture / Unknown 10/13/2023 9:06 AM EDT 10/13/2023 9:06 AM EDT Orlin Castro MD LAB BLOOD ORDERA BLES Performing Organization Address [facility] Co de Phone Number LABORATORY [facility] [address] [place] [address] * LIPID PANEL WITH DIRECT LDL IF TG IS HIGH (10/13/2023 9:06 AM EDT) Triglycerides 68 <=174 mg/dL 10/13/2023 2:20 PM EDT LABORATORY [facility] Comment: Triglyceride Reference Ranges (mg/dL): <150 Acceptable 150-174 Borderline high 175-499 High >=500 Very high Cholesterol 153 <200 mg/dL 10/13/2023 2:20 PM EDT LABORATORY [facility] Comment: Total Cholesterol Reference Ranges (mg/dL): <200 Desirable 200-239 Borderline high >=240 High HDL Cholesterol 59 >49 mg/dL 2:20 PM EDT LABORATORY [facility] Comment: HDL Cholesterol Reference Ranges (mg/dL): >=60 High (Desirable) <50 Low (Undesirable) For Females <40 Low (Undesirable) For Males Non-HDL Cholesterol 94 <=159 mg/dL 10/13/2023 2:20 PM EDT LABORATORY [facility] Comment: Non-HDL Cholesterol Reference Range (mg/dL): <100 Target level for high risk ASCVD patient <130 Optimal for general population 130-159 Near optimal for general population 160-189 Borderline High 190-219 High >=220 Very High LDL Cholesterol 80 <=129 mg/dL 10/13/2023 2:20 PM EDT LABORATORY [facility] Comment: LDL Cholesterol Reference Ranges (mg/dL): <70 Target level for high risk ASCVD patient <100 Optimal for general population 100-129 Near optimal for general population 130-159 Borderline high 160-189 High >=190 Very high Blood Venous blood specimen / Unknown Venipuncture / Unknown 10/13/2023 9:06 AM EDT 10/13/2023 9:06 AM EDT Orlin Castro MD LAB BLOOD ORDERA BLES LABORATORY [facility] [address] [place] [address] * (ABNORMAL) BASIC METABOLIC PANEL (10/13/2023 9:06 AM EDT) BUN 28(H) 6 - 20 mg/dL 10/13/2023 10:33 AM EDT LABORATORY [place] [facility]10 Creatinine 1.3(H) 0.5 - 1.0 mg/dL 10/13/2023 10:33 AM EDT LABORATORY [place] [facility]10 Estimated Glomerular Filtration Rate 46(L) >=60 mL/min 10/13/2023 10:33 AM EDT LABORATORY [place] 57-10 Comment:eGFR is calculated b ased on the CKD-EPI 2020 equation Sodium 138 135 - 146 mmol/L 10/13/2023 10:33 AM EDT LABORATORY [place] [facility]10 Potassium 4.8 3.5 - 5.1 mmol/L 10/13/2023 10:33 AM EDT LABORATORY [place] 57[facility]10 Chloride 100 98 - 107 mmol/L 10/13/2023 10:33 AM EDT LABORATORY [place] 57[facility]10 CO2 25 22 - 32 mmol/L 10/13/2023 10:33 AM EDT LABORATORY [place] [facility]10 Anion Gap 13 7 - 15 mmol/L 10/13/2023 10:33 AM EDT LABORATORY [place] [facility]10 Glucose 140(H) 70 - 120 mg/dL 10/13/2023 10:33 AM EDT LABORATORY [place] [facility]10 Calcium 9.5 8.4 - 10.2 mg/dL 10/13/2023 10:33 AM EDT LABORATORY [place] [facility]10 Blood Venous blood specimen / Unknown Venipuncture / Unknown 10/13/2023 9:06 AM EDT 10/13/2023 9:06 AM EDT Orlin Castro MD LAB BLOOD ORDERA BLES LABORATORY [place] [facility] [place] [address] documented in this encounter Visit Diagnoses Diagnosis Type 2 diabetes mellitus with hemoglobin A1c goal of less than 7.0% (HCC)- Primary Mixed hyperlipidemia Chronic obstructive pulmonary disease, unspecified COPD type (HCC) Psoriasis Other psoriasis Dilation of pancreatic duct Other specified disease of pancreas Postsurgical hypothyroidism Tracheostomy status (HCC) Tracheostomy status Adrenal nodule (HCC) Other specified disorders of adrenal glands DM type 2 nursing care encounter ([facility]) Type II or unspecified type diabetes mellitus without mention of complication, not stated as uncontrolled Encounter for long-term (current) use of medications Encounter for long-term (current) use of other medications Elevated LFTs Other abnormal blood chemistry Hypertension goal BP (blood pressure) < 140/90 Unspecified essential hypertension Decreased GFR Nonspecific abnormal results of kidney [...] the patient have Health Care Power of Armhole Feller Handstitching Machine? No Care Teams Hr Director Relationship Specialty Start Date End Date Orlin Castro MD [address] [place] [address] PCP - General Internal Medicine 04/27/19 documented as of this encounter
--- OUTSIDE RECORDS SUMMARY | 2024-01-23 13:01 | External Medical Summary ---
Author Name Unknown Address Unknown Organization K01:LAB[facility]ATORY [facility] [place] [address] [place] [address] Laboratory Report Ordering Provider Test Date Status RICHARD BEYER 10/13/2023 09:06:54 Final Observation Date Value Abnormality Reference (Units ) Status Vitamin B12 10/13/2023 09:06:54 846 207-4675 (pg/mL) Final Performing Location LABORATORY [facility] - [address] [place] [address]
--- OUTSIDE RECORDS SUMMARY | 2024-01-23 13:01 | External Medical Summary ---
Author Name Unknown Address Unknown Organization [id number]:LABORATORY [place] [facility] - [address] [place] [address] Laboratory Report Ordering Provider Test Date Status RICHARD BEYER 10/13/2023 09:06:54 Final Observation Date Value Abnormality Reference (Units ) Status BUN 10/13/2023 09:06:54 28 Above high normal 6-20 (mg/dL) Final Creatinine 10/13/2023 09:06:54 1.3 Above high normal 0.5-1.0 (mg/dL) Final Glomerular filtration rate/1.73 sq M.predicted [Volume Rate/Area] in Serum, Plasma or Blood by Creatinine-based formula (CKD-EPI) 10/13/2023 09:06:54 46 Below low normal >=60 (mL/min) Final eGFR is calculated based on the CKD-EPI 2020 equation Sodium 10/13/2023 09:06:54 138 135-146 (m mol/L) Final Potassium 10/13/2023 09:06:54 4.8 3.5-5.1 (m mol/L) Final Cl 10/13/2023 09:06:54 100 98-107 (mm ol/L) Final CO2 10/13/2023 09:06:54 25 22-32 (mmo l/L) Final Anion gap 10/13/2023 09:06:54 13 7-15 (mmol /L) Final Glucose 10/13/2023 09:06:54 140 Above high normal 70 -120 (mg/dL) Final Calcium 10/13/2023 09:06:54 9.5 8.4-10.2 ( mg/dL) Final Performing Location LABORATORY [facility] [place] [facility] 0 - [address] [place] [address]
--- OUTSIDE RECORDS SUMMARY | 2024-01-23 13:01 | External Medical Summary | Summary of Care ---
Author Name Unknown Organization [facility] Address [address] [place] [address] Phone [phone] Care Team Providers Care Glue Mill Operator Name Role Phone Orlin Castro MD Primary Care Provider + Reason for Visit * Reason Onset Date Comments Test Results 10/14/2023 Encounter Details Date Type Department Care Team (Late st Contact Info) Description 10/14/2023 Telephone General Internal Medicine [facility] 200 [facility] [place] [address] Orlin Castro MD [address] [place] [address] Test Results Allergies Active Allergy Reactions Criticality Noted Date Comments Zolpidem Tartrate Psych complications 6 Rosuvastatin 04/05/2020 Elevated lft Hydrochlorothiazide 12/29/2019 brenda Nsaids Other (Please comment) 04/14/2016 Gastric ulcer with anemia documented as of this encounter (statuses as of 10/14/2023) Medications Medication Sig Dispensed Refills Start Date End Date Status ONETOUCH [facility] Use to test blood sugar 4 times daily dx e11.9 400 Each 3 03/09/2019 Active Misc. Devices [facility] Tracheostomy Care Kit #4601 1 Each 0 10/02/2019 Active Vitamin B-12 1000 MCG Oral Tablet Take 1 Tab by mouth daily. 90 Tab 3 03/07/2021 Active Point2 Property ManagerTouch Verio Flex System w/Device Kit Use as [...] 10/14/2023 11:50 AM EDT Message sent via [employer]. Provider to address: n/a Reason for Call: Test Results Contact: Judy Thompson Contact Type: Test Results Outcome: See above Face to face time spent with Patient (minutes): 0 Total Time including non face to face (minutes): 10 Farhan Germain RN BSN [facility] Primary Care Nurse Coordinator [facility] (Helping out) * Telephone Encounter - Farhan [...] 11/24/2023 8:45 AM EDT Office Visit Orthopaedics [facility] [address] [place] [address] Javon Bunn, DO [address] [place] [address] 11/30/2023 9:30 AM EDT Imaging Radiology [facility] 1st [facility] [place] [address] [place] [address] 12/15/2023 9:00 AM EDT Procedure Only Endoscopy, Gabriele Garcia [address] [place] [address] Raymond Campbell MD [address] [facility] [place] [address] 12/31/2023 10:00 AM EDT Office Visit Pharmacy, [facility] [place] [address] [place] [address] Pharmacist1, [facility] [address] [place] [address] 02/17/2024 7:50 AM EDT Office Visit Optometry, [place] [address] [place] [address] Rancho Chapman Jr., OD [address] [place] [address] 03/27/2024 8:40 AM EDT Office Visit Endocrinology, [place] [address] [place] [address] Nhung Monzon MD [address] [place] [address] 04/24/2024 2:40 PM EDT Office Visit General Internal Medicine [facility] [address] [place] [address] Orlin Castro MD [address] [place] [address] 05/08/2024 11:20 AM EST Office Visit Nephrology, [facility] [address] [place] [address] Galindo Jean MD [address] [place] [address] Health Maintenance Due Date Last Done Comments [...] Screening 06/22/2024 06/22/2023 CKD HGB USE SMARTSET 05930 08/03/202408/03, 08/03/2023, 07/02/2023, Additional history exists CKD PHOS USE SMARTSET 99865 08/23/202408/05, 08/03/2023, 07/02/2023, Additional history exists Mammogram [...] this encounter Medical Devices Implanted Type Area Performance Improvement Director Device Identifier Shelf Expiration Date Model / Serial / Lot Stent Pancreatic Geenen 5fr - [id number] Implanted:Qty: 1 on 06/17/2010 [place] [facility] [employer] 03/18/2013 [id number] / / [id number] Stent 10fr 7cm - [id number] Implanted:Qty: 1 on 06/17/2010 [place] [facility] COOK : RADHA MONTANA 01/15/2013 [id number] / / [id number] Description:pancreas documented as of this encounter Advance [...] the patient have Health Care Power of Stock Saw Operator? No Care Teams Glue Mill Operator Relationship Specialty Start Date End Date Orlin Castro MD [address] [place] [id number] PCP - General Internal Medicine 04/27/19 documented as of this encounter
--- OUTSIDE RECORDS SUMMARY | 2024-01-23 13:01 | External Medical Summary ---
Author Name Unknown Address Unknown Organization K01:LABORATORY [facility] [address] [facility] [place] [address] Laboratory Report Ordering Provider Test Date Status KAYLEENCARLOSTEIN 10/13/2023 09:06:54 Final Observation Date Value Abnormality Reference (Units ) Status Triglyceride 10/13/2023 09:06:54 68 <=174 ( mg/dL) Final Triglyceride Reference Range s (mg/dL):
<150 Acceptable
150-174 Borderline high
175-499 High
>=500 Very high Cholesterol 10/13/2023 09:06:54 153 <200 (mg /dL) Final Total Cholesterol Reference Ranges (mg/dL):
<200 Desirable
200-239 Borderline high
>=240 High HDL 10/13/2023 09:06:54 59 >49 (mg/dL ) Final HDL Cholesterol Reference Ra nges (mg/dL):
>=60 High (Desirable)
<50 Low (Undesirable) For Females
<40 Low (Undesirable) For Males NON-HDL CHOLESTEROL 10/13/2023 09:06:54 94 <=159 (mg/dL) Final Non-HDL Cholesterol Referenc e Range (mg/dL):
<100 Target level for high risk ASCVD patient
<130 Optimal for general population
130-159 Near optimal for general population
160-189 Borderline High
190-219 High
>=220 Very High LDL, (calculated) 10/13/2023 09:06:54 80 <= 129 (mg/dL) Final LDL Cholesterol Reference Ra nges (mg/dL):
<70 Target level for high risk ASCVD patient
<100 Optimal for general population
100-129 Near optimal for general population
130-159 Borderline high
160-189 High
>=190 Very high Performing Location LABORATORY [facility] - [address] [facility] [address]
--- OUTSIDE RECORDS SUMMARY | 2024-01-23 13:01 | External Medical Summary | Summary of Care ---
Author Name Unknown Organization [facility] Address [address] [facility] [place] [address] Phone [phone] Care Team Providers Care Nursing Staffing Coordinator Name Role Phone Orlin Castro MD Primary Care Provider + Reason for Visit * Reason Comments Outpatient Testing Encounter Details Date Type Department Care Team (Late st Contact Info) Description 10/13/2023 9:00 AM EDT Laboratory Laboratory, [facility] [address] [place] [address] [facility] [address] [place] [address] Elevated LFTs; Mixed hyperlipidemia; Encounter for long-term (current) use of medications Allergies Active Allergy Reactions Criticality Noted Date Comments Zolpidem Tartrate Psych complications 6 Rosuvastatin 04/05/2020 Elevated lft Hydrochlorothiazide 12/29/2019 brenda Nsaids Other (Please comment) 04/14/2016 Gastric ulcer with anemia documented as of this encounter (statuses as of 10/13/2023) Medications Medication Sig Dispensed Refills Start Date [...] group B, by GOLD 2017 classification ([facility]) Inhale via nebulizer . Use as directed. 1 Each 1 12/30/2021 Active Ipratropium-Albuter ol 0.5-2.5 (3) MG/3ML Inhalation Solution (Duoneb)Indications :COPD, group B, by GOLD 2017 classification ([facility]) Inhale via nebulizer 3 mL every [...] A1c goal of less than 7.0% ([facility]) Use to test blood glucose 4 [...] as of this encounter (statuses as of 10/13/2023) Active Problems Problem Noted Date Diagnosed Date [...] as of this encounter (statuses as of 10/13/2023) Resolved Problems Problem Noted Date Diagnosed Date [...] as of this encounter (statuses as of 10/13/2023) Immunizations Name Administration Dates Next Due COVID-19 [...] 11/24/2023 8:45 AM EDT Office Visit Orthopaedics [facility] [address] [place] [address] Javon Bunn DO [address] [place] [address] 11/30/2023 9:30 AM EDT Imaging Radiology [facility] 1st [facility] [address] [place] [address] 12/15/2023 9:00 AM EDT Procedure Only Endoscopy, [facility] [address] [place] [address] Raymond Campbell MD [address] [place] [address] 12/31/2023 10:00 AM EDT Office Visit Pharmacy, [place] [place] [place] [address] [facility] [place] [address] Pharmacist1, [facility] [address] [place] [address] 02/17/2024 7:50 AM EDT Office Visit Optometry, [place] [address] [place] [address] Rancho Chapman Jr., OD [address] [place] [address] 03/27/2024 8:40 AM EDT Office Visit Endocrinology, [place] [address] [place] [address] Nhung Monzon MD [address] [place] [address] 04/24/2024 2:40 PM EDT Office Visit General Internal Medicine [facility] [address] [place] [address] Orlin Castro MD [address] [place] [address] 05/08/2024 11:20 AM EST Office Visit Nephrology, [facility] [address] [place] [address] Galindo Jean MD [address] [place] [address] Pending Results Name Type Priority Associated Diagnoses Date /Time HEPATIC FUNCTION PANEL Lab Routine Elevated LFTs 10/13/2023 9:06 AM EDT BASIC METABOLIC PANEL Lab Routine Mixed hyperlipidemia 10/13/2023 9:06 AM EDT LIPID PANEL WITH DIRECT LDL IF TG IS HIGH Lab Routine Mixed hyperlipidemia 10/13/2023 9:06 AM EDT VITAMIN B12 Lab Routine Encounter for long-term (current) use of medications 10/13/2023 9:06 AM EDT IRON SCREEN, INCLUDING TIBC Lab Routine Encounter for long-term (current) use of medications 10/13/2023 9:06 AM EDT FERRITIN Lab Routine Encounter for long-term (current) use of medications 10/13/2023 9:06 AM EDT Health Maintenance Due Date Last [...] 04/01/2024 09/30/2023, 05/06, 03/31/2023, Additional history exists Albumin/Creatinine Ratio 05/05/2024 023, 05/14/2022, 05/01/2022, Additional history exists Depression Screening 06/22/2024 06/22/2023 CKD HGB USE SMARTSET 70247 08/03/202408/03, 08/03/2023, 07/02/2023, Additional history exists CKD PHOS USE SMARTSET 18261 08/23/202408/05, 08/03/2023, 07/02/2023, Additional history exists Mammogram 09/13/2024 09/14/2023, 09/02, 09/11/2022, Additional history exists Diabetic Foot Exam 09/29/2024 09/30/2023, 0 08/07/2022, 08/21/2021, Additional history exists O2 ASSESSMENT COMPLETED IN PAST YEAR FOR COPD 09/29/2024 09/30/2023 DXA Scan 05/12/2026 05/12/2022, 05/12/2022 Lipid Panel 10/27/2027 10/26/2022, 0908/2021, 05/10/2021, [...] this encounter Medical Devices Implanted Type Area Personnel Adviser Device Identifier Shelf Expiration Date Model / Serial / Lot Stent Pancreatic Geenen 5fr - [id number] Implanted:Qty: 1 on 06/17/2010 at [place] [facility] [place] [employer] 03/18/2013 [id number] / / [id number] Stent 10fr 7cm - [id number] Implanted:Qty: 1 on 06/17/2010 at OR [facility] [place] NAN : RADHA MONTANA 01/15/2013 [id number] / / [id number] Description:pancreas documented as of this encounter Visit Diagnoses Diagnosis Elevated LFTs Other abnormal blood chemistry Mixed hyperlipidemia Encounter for long-term (current) use of medications Encounter for long-term (current) use of other medications documented in this encounter Advance Directives Latest [...] the patient have Health Care Power of Physicist Light And Optics? No Care Teams Nursing Staffing Coordinator Relationship Specialty Start Date End Date Orlin Castro MD [address] [place] [address] PCP - General Internal Medicine 04/27/19 documented as of this encounter
--- OUTSIDE RECORDS SUMMARY | 2024-01-23 13:01 | External Medical Summary | Summary of Care ---
Author Name Unknown Organization [facility] Address [address] [place] [address] Phone [phone] Care Team Providers Care Millinery Worker Name Role Phone Orlin Castro MD Primary Care Provider + Reason for Visit * Reason Comments Follow Up 6 month follow up - pt denied any new concerns Encounter Details Date Type Department Care Team (Late st Contact Info) Description 09/30/2023 10:40 AM EDT Office Visit General Internal Medicine [facility] [place] [address] [facility] [place], [place] [id number] Orlin Castro MD [address] [place] [address] Type 2 diabetes mellitus with hemoglobin A1c goal of less than 7.0% ([facility]; Mixed hyperlipidemia; Chronic obstructive pulmonary disease, unspecified COPD type ([facility]); Psoriasis; Dilation of pancreatic duct; Postsurgical hypothyroidism; Tracheostomy status ([facility]); Adrenal nodule ([facility]); DM type 2 nursing care encounter ([facility]); Encounter for long-term (current) use of medications; Elevated LFTs; Hypertension goal BP (blood pressure) < 140/90 Allergies Active Allergy Reactions Criticality Noted Date [...] ns:COPD, group B, by GOLD 2017 classification ([facility]) Inhale via nebulizer . Use as directed. 1 Each 1 2 Active Ipratropium-Albute rol 0.5-2.5 (3) MG/3ML Inhalation Solution (Duoneb)Indication s:COPD, group B, by GOLD 2017 classification ([facility]) Inhale via nebulizer 3 mL every 6 [...] 90 Tablet 3 3 10/18/19 24 Active Tiotropium Eunice Monohydrate 2.5 MCG/ACT Inhalation Aerosol Solution (Spiriva Respimat)Indicatio ns:COPD, group B, by GOLD 2017 classification ([facility]) INHALE 2 PUFFS BY MOUTH IN THE MORNING 12 g 3 3 10/06/19 24 Active Additional Information Patient taking differently: 2 Puff Inhalation Daily(AM), Reported on 09/30/2023 OneToSeatwave In Vitro Strip (Glucose Blood)Indications: Type 2 diabetes mellitus with hemoglobin A1c goal of less than 7.0% ([facility]) Use to test blood glucose 4 times [...] hemoglobin A1c goal of less than 7.0% ([facility]) Take 1 Tablet by mouth 2 times [...] 90 Tablet 3 4 09/29/19 25 Active Amoxicillin-Pot Clavulanate 875-125 MG Oral Tablet (Augmentin)Indicat [...] encounter Patient Instructions * Patient Instructions* Tonie Green, MED ASSIST - 09/30/2023 10:38 AM EDT [...] calluses yourself. Talk to your doctor or nozzle operator (a doctor who specializes in foot care) [...] the area doesnt appear to be healing. [id number] [employer], [address] [place] [address], [place] [address]. All rights reserved. This information is not [...] Insomnia G47.00 Postsurgical hypothyroidism E89.0 Tracheostomy status ([facility]) Z93.0 Mitral valve regurgitation I34.0 History of thyroid cancer Z85.850 Type 2 diabetes mellitus with hemoglobin A1c goal of less than 7.0% ([facility]) E11.9 Hypertension goal BP (blood pressure) < 140/90 I10 History of pancreatic cancer Z85.07 Family history of familial adenomatous polyposis Z83.710 Gastroesophageal reflux disease without esophagitis K21.9 Mixed hyperlipidemia E78.2 COPD, group B, by GOLD 2017 classification ([facility]) J44.9 Obesity, Class I, BMI 30.0-34.9 (see actual BMI) E66.9 Diabetes mellitus with proteinuria ([facility]) E11.29, R80.9 Psoriasis L40.9 Pancreatic duct dilated [...] dx e11.9 400 Each 3 Misc. Devices [facility] [place]ache[place] Care Kit #4601 1 Each 0 [...] FOR MUSCLE SPASMS. 90 Tablet 3 Tiotropium Eunice Monohydrate 2.5 MCG/ACT Inhalation Aerosol Solution (Spiriva Respimat) INHALE 2 PUFFS BY MOUTH IN THE MORNING (Patient taking differently: Inhale 2 Puffs by mouth in the morning.) 12 g 3 imeemTouch Verio In Vitro Strip (Glucose Blood) Use to test blood glucose 4 times daily. DX: E11.9 400 Strip 3 Levothyroxine Sodium 200 MCG Oral Tablet (Levoxyl) TAKE 1 TABLET BY MOUTH DAILY AT LEAST 30 MINUTESPRIOR TO FIRST MEAL OF THE DAY OR OTHER MEDICATIONS 90 Tablet 3 [facility] [place]. 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 [place] Family history of familial adenomatous polyposis 03/10/2019 [...] Dr Allen & Dr ESCOBEDO [place] [facility] [place]ESTH, UPPER GI ENDOSCOPIC PROCS 08/18/2010 ANESTHESIA FOR UPPER GI ENDOSCOPIC PROCEDURES (ERCP OR UPPER GI) performed by ALICIA MATHEWS at [place] [facility] BREAST BIOPSY Left Benign BREAST BIOPSY Left Benign BREAST BIOPSY Left Benign COLONOSCOPY, DIAGNOSTIC (RECTUM) 09/10/2011 COLONOSCOPY FLEXIBLE PROXIMAL DIAGNOSTIC performed by ALICIA MATHEWS at [facility] COLONOSCOPY, DIAGNOSTIC (RECTUM) 01/13/2012 COLONOSCOPY FLEXIBLE PROXIMAL DIAGNOSTIC performed by Alicia Mathews DO at [facility] COLONOSCOPY, DIAGNOSTIC (RECTUM) 07/21/2012 COLONOSCOPY FLEXIBLE PROXIMAL DIAGNOSTIC performed by Alicia Mathews DO at [facility] COLONOSCOPY, DIAGNOSTIC (RECTUM) 01/13/2013 COLONOSCOPY FLEXIBLE PROXIMAL DIAGNOSTIC performed by Alicia Mathews DO at [facility] COLONOSCOPY, DIAGNOSTIC (RECTUM) 01/19/2014 COLONOSCOPY FLEXIBLE PROXIMAL DIAGNOSTIC performed by Alicia Mathews DO at [facility] COLONOSCOPY, DIAGNOSTIC (RECTUM) N/A 09/27/2014 COLONOSCOPY FLEXIBLE PROXIMAL DIAGNOSTIC performed by Alicia Mathews DO at [facility] COLONOSCOPY, DIAGNOSTIC (RECTUM) N/A 03/15/2015 COLONOSCOPY FLEXIBLE PROXIMAL DIAGNOSTIC performed by Alicia Mathews DO at [facility] COLONOSCOPY, DIAGNOSTIC (RECTUM) N/A 06/13/2015 COLONOSCOPY FLEXIBLE PROXIMAL DIAGNOSTIC performed by Alicia Mathews DO at [facility] COLONOSCOPY, DIAGNOSTIC (RECTUM) 04/08/2016 normal/inpt [facility] [place] COLONOSCOPY, DIAGNOSTIC (RECTUM) 07/02/2017 COLONOSCOPY FLEXIBLE PROXIMAL DIAGNOSTIC performed by Alicia Mathews DO at [facility] COLONOSCOPY, DIAGNOSTIC (RECTUM) N/A 08/30/2018 COLONOSCOPY FLEXIBLE PROXIMAL DIAGNOSTIC performed by Alicia Mathews DO at [facility] COLONOSCOPY, DIAGNOSTIC (RECTUM) 12/03/2021 benign adenomatous polyps, repeat 1 yr / [facility] [place] COLONOSCOPY, DIAGNOSTIC (RECTUM) 12/17/2022 adenomatous polyp, repeat 1 yr / [facility] [place] EGD, FLEXIBLE, DIAGNOSTIC 09/10/2011 UPPER GI ENDOSCOPY DIAGNOSTIC performed by ALICIA MATHEWS at [facility] EGD, FLEXIBLE, DIAGNOSTIC 07/21/2012 UPPER GI ENDOSCOPY DIAGNOSTIC performed by Alicia Mathews DO at [facility] EGD, FLEXIBLE, DIAGNOSTIC N/A 05/14/2016 ESOPHAGOGASTRODUODENOSCOPY (EGD), FLEXIBLE, TRANSORAL, DIAGNOSTIC performed by Alicia Mathews DO at [facility] EGD, FLEXIBLE, DIAGNOSTIC 04/08/2016 anastamotic ulcer/inpt [facility] [place] EGD, FLEXIBLE, DIAGNOSTIC N/A 07/02/2017 ESOPHAGOGASTRODUODENOSCOPY (EGD), FLEXIBLE, TRANSORAL, DIAGNOSTIC performed by Alicia Mathews DO at [facility] EGD, FLEXIBLE, DIAGNOSTIC N/A 08/30/2018 ESOPHAGOGASTRODUODENOSCOPY (EGD), FLEXIBLE, TRANSORAL, DIAGNOSTIC performed by Alicia Mathews DO at [facility] EGD, FLEXIBLE, DIAGNOSTIC 12/03/2021 normal, repeat 1 yr / [facility] [place] EGD, FLEXIBLE, DIAGNOSTIC 12/17/2022 normal, repeat 1 yr / [facility] EGD, W/ENDOSCOPIC US 08/11/2012 UPPER GI ENDOSCOPY ENDOSCOPIC ULTRASOUND performed by Garcia Casey MD at [facility] EGD, W/ENDOSCOPIC US 11/04/2012 UPPER GI ENDOSCOPY ENDOSCOPIC ULTRASOUND performed by Garcia Casey MD at [facility] EGD, W/ENDOSCOPIC US N/A 05/08/2021 ESOPHAGOGASTRODUODENOSCOPY (EGD), FLEXIBLE, TRANSORAL, ENDOSCOPIC ULTRASOUND performed by Jane Gutierrez MD at [facility] ERCP, DIAGNOSTIC, SPECIMEN COLLECTION 09/14/2012 ENDOSCOPIC RETROGRADE CHOLANGIOPANCREATOGRAPHY DIAGNOSTIC performed by Garcia Casey MD at [facility] ERCP, DIAGNOSTIC, SPECIMEN COLLECTION 11/04/2012 ENDOSCOPIC RETROGRADE CHOLANGIOPANCREATOGRAPHY DIAGNOSTIC performed by Garcia Casey MD at [facility] MAINE FLEX SIGMOID DIAGNOSITIC N/A 09/18/2019 SIGMOIDOSCOPY FLEXIBLE DIAGNOSTIC performed by Alicia Mathews DO at [facility] MUSCLE/FASCIA DEBRIDEMENT, FIRST 20 CM2 N/A 11/29/2020 DEBRIDEMENT SKIN SUBCUTANEOUS TISSUE AND MUSCLE performed by Howard Montes De Oca DO at [place] [facility] OTHER 2007 tracheostomy & laryngectomy REMOVAL OF COLON/ILEOSTOMY 1976 x3 REMOVAL OF THYROID GLAND 2007 Thyroidectomy REMOVE PANCREAS, PARTIAL ([place]) 06/17/2010 PANCREATECTOMY PROXIMAL WITH TOTAL DUODENECTOMY, Dr CIFUENTES REMOVE PANCREAS, PARTIAL ([place]) 12/02/2012 12/02/2012 PANCREATECTOMY PROXIMAL WITH SUBTOTAL DUODENECTOMY performed by Julio C Cifuentes MD at [place] [facility] REPAIR INITIAL INCISIONAL OR VENTRAL HERNIA; REDUCIBLE 12/15/2021 done at [facility] [place] by Dr Aayush Estrella REPAIR WINDPIPE OPENING, COMPLEX 06/02/2021 TRACHEOSTOMA REVISION WITH FLAP performed by Howard Montes De Oca DO at [place] [facility] REPAIR WINDPIPE OPENING, SIMPLE N/A 08/07/2015 TRACHEOSTOMA REVISION SIMPLE performed by Howard Montes De Oca DO at [place] [facility] REPAIR WINDPIPE OPENING, SIMPLE Bilateral 11/29/2020 TRACHEOSTOMA REVISION SIMPLE performed by Howard Montes De Oca DO at [place] [facility] SIGMOIDOSCOPY, DIAGNOSTIC N/A 10/15/2020 SIGMOIDOSCOPY FLEXIBLE DIAGNOSTIC performed by Alicia Mathews DO at [facility] SIGMOIDOSCOPY, DIAGNOSTIC N/A 04/29/2021 SIGMOIDOSCOPY FLEXIBLE DIAGNOSTIC performed by Monae Batista DO at [facility] US GUIDED BREAST BIOPSY RIGHT Right Benign [...] hemoglobin A1c goal of less than 7.0% ([facility]) (primary encounter diagnosis) E78.2 Mixed hyperlipidemia J44.9 Chronic obstructive pulmonary disease, unspecified COPD type ([facility]) L40.9 Psoriasis K86.89 Dilation of pancreatic duct E89.0 Postsurgical hypothyroidism Z93.0 Tracheostomy status ([facility]) E27.8 Adrenal nodule ([facility]) E11.9 DM type 2 nursing care encounter ([facility]) Z79.899 Encounter for long-term (current) use of medications R79.89 Elevated LFTs I10 Hypertension goal BP (blood pressure) < 140/90 PLAN: Type 2 diabetes mellitus with hemoglobin A1c goal of less than 7.0% ([facility]) (Primary) Appreciate mtm aid Cont repaglinide, metformin [...] hypothyroidism Cont levothyroxine per endocrine Tracheostomy status ([facility]) Sees ent Adrenal nodule ([facility]) Await endocrine work up DM type 2 [...] any new concerns documented in this encounter Plan of Treatment Upcoming Encounters Date Type Department Care Team (Late st Contact Info) Description 10/05/2023 3:30 PM EDT Office Visit Dermatology [facility] [address] [place] [address] Ling Capellan PA-C [address] [facility] [place] [address] 10/13/2023 9:00 AM EDT Laboratory Laboratory, [facility] [address] [facility] [place] [id number] [facility] [address] [place] [address] 11/24/2023 8:45 AM EDT Office Visit Orthopaedics [facility] [address] [place] [address] Javon Bunn, [address] [place] [address] 11/30/2023 9:30 AM EDT Imaging Radiology [facility] [address] [place] [address] 12/15/2023 9:00 AM EDT Procedure Only Endoscopy, [facility] [address] [place] [address] Raymond Campbell MD [address] [place] [address] 12/31/2023 10:00 AM EDT Office Visit Pharmacy, [facility] [place] [address] [place] [address] Pharmacist1, [facility] [address] [facility] [place] [address] 02/17/2024 7:50 AM EDT Office Visit Optometry, [facility] [address] [place] [address] Rancho Chapman Jr. Juan Miguel, [facility] [address] [place] [address] 03/27/2024 8:40 AM EDT Office Visit Endocrinology, [facility] [address] [place] [address] Nhung Monzon MD [address] [place], [place] [phone] 04/24/2024 2:40 PM EDT Office Visit General Internal Medicine [facility] [address] [place] [address] Orlin Castro MD [address] [place] [address] 05/08/2024 11:20 AM EST Office Visit Nephrology, [facility] [address] [place] [address] Galindo Jean MD [address] [place] [address] Scheduled Orders Name Type Priority Associated Diagnoses Orde r Schedule BASIC METABOLIC PANEL Lab Routine Mixed hyperlipidemia Expected: 09/30/2023 (Approximate), Expires: 09/29/2024 LIPID PANEL WITH DIRECT LDL IF TG IS HIGH Lab Routine Mixed hyperlipidemia Expected: 09/30/2023, Expires: 09/29/2024 VITAMIN B12 Lab Routine Encounter for long-term (current) use of medications Expected: 09/30/2023 (Approximate), Expires: 09/29/2024 IRON SCREEN, INCLUDING TIBC Lab Routine Encounter for long-term (current) use of medications Expected: 09/30/2023 (Approximate), Expires: 09/29/2024 FERRITIN Lab Routine Encounter for long-term (current) use of medications Expected: 09/30/2023 (Approximate), Expires: 09/29/2024 Health Maintenance Due Date Last Done Comments [...] Screening 06/22/2024 06/22/2023 CKD HGB USE SMARTSET 72349 08/03/202408/03, 08/03/2023, 07/02/2023, Additional history exists CKD PHOS USE SMARTSET 90511 08/23/202408/05, 08/03/2023, 07/02/2023, Additional history exists Mammogram [...] this encounter Medical Devices Implanted Type Area Ore Trimmer Device Identifier Shelf Expiration Date Model / Serial / Lot Stent Pancreatic Geenen 5fr - [id number] Implanted:Qty: 1 on 06/17/2010 at [place] [facility] [employer] 03/18/2013 [id number] / / [id number] Stent 10fr 7cm - [id number] Implanted:Qty: 1 on 06/17/2010 at [place] [facility] NAN : RADHA [place] 01/15/2013 [id number] / / [id number] Description:pancreas documented as of this encounter Visit [...] glands DM type 2 nursing care encounter ([facility]) Type II or unspecified type diabetes mellitus without mention of complication, not stated as uncontrolled Encounter for long-term (current) use of medications Encounter for long-term (current) use of other medications Elevated LFTs Other abnormal blood chemistry Hypertension goal BP (blood pressure) < 140/90 Unspecified essential hypertension documented in this encounter Advance Directives Latest [...] the patient have Health Care Power of Larry Car Operator? No Care Teams Millinery Worker Relationship Specialty Start Date End Date Orlin Castro MD [address] [place] [id number] PCP - General Internal Medicine 04/27/19 documented as of this encounter
--- OUTSIDE RECORDS SUMMARY | 2024-01-23 13:01 | External Medical Summary ---
Author Name Unknown Address Unknown Organization K01:[facility] [place] [address] [place] [address] Laboratory Report Ordering Provider Test Date Status RICHARD BEYER 10/13/2023 09:06:54 Final Observation Date Value Abnormality Reference (Units ) Status Iron 10/13/2023 09:06:54 64 33-151 (ug /dL) Final Iron-binding capacity 10/13/2023 09:06:54 317 250-425 (ug/dL) Final Transferrin Sat % 10/13/2023 09:06:54 20 15 -55 (%) Final Performing Location [facility] [place] [address] [place] [address]
--- OUTSIDE RECORDS SUMMARY | 2024-01-23 13:01 | External Medical Summary ---
Author Name Unknown Address Unknown Organization K0G:[facility] - [address] [place] [address] Laboratory Report Ordering Provider Test Date Status DO KAYLEENHEMANTH 10/13/2023 09:06:54 Final Observation Date Value Abnormality Reference (Units ) Status Albumin 10/13/2023 09:06:54 4.2 3.8-5.0 (g/dL) Final AST (Aspartate aminotransferase) 10/13/2023 09:06:54 32 10-35 (U/L) Final Alk Phos 10/13/2023 09:06:54 128 35-130 (U/L) Final ALT (Alanine aminotransferase) 10/13/2023 09:06:54 30 10-35 (U/L) Final Bilirubin, Total 10/13/2023 09:06:54 0.5 <=1.2 (mg/dL) Final Bilirubin, Direct 10/13/2023 09:06:54 <0.2 0.0-0.3 (mg/dL) Final Protein 10/13/2023 09:06:54 7.2 6.0-8.3 (g/dL) Final Performing Location LAB[facility]ATORY [place] [address] - [address] [place] [address]
--- OUTSIDE RECORDS SUMMARY | 2024-01-23 13:01 | External Medical Summary ---
Author Name Unknown Address Unknown Organization K01[place] [place] [address] [place] [address] Laboratory Report Ordering Provider Test Date Status RICHARD BEYER 10/13/2023 09:06:54 Final Observation Date Value Abnormality Reference (Units ) Status Ferritin 10/13/2023 09:06:54 74 13-150 (ng /mL) Final Postmenopausal women have hi gher ferritin levels than pre-menopausal women. The above reference interval is based on pre-menopausal women. Performing Location LABORATORY [facility] - [address] [place] [address]
--- OUTSIDE RECORDS SUMMARY | 2024-01-23 13:01 | External Medical Summary | Summary of Care ---
Author Name Unknown Organization [facility] Address [address] [place] [address] Phone [phone] Care Team Providers Care Virtualization Consultant Name Role Phone Orlin Castro MD Primary Care Provider + Reason for Visit * Reason Comments Diabetes Follow-Up Dosage Adjustment In Person (Anticoag Cl inic) Encounter Details Date Type Department Care Team (Late st Contact Info) Description 09/30/2023 10:10 AM EDT Office Visit Pharmacy, [facility] [address] [facility] [place] [address] Pharmacist1, [facility] [address] [facility] [place] [address] Type 2 diabetes mellitus with hemoglobin A1c goal of less than 7.0% ([facility])* Allergies Active Allergy Reactions Criticality Noted [...] Tablet 3 3 10/18/19 24 Active Tiotropium [place] Monohydrate 2.5 MCG/ACT Inhalation Aerosol Solution (Spiriva Respimat)Indicatio ns:COPD, group B, by GOLD 2017 classification ([facility]) INHALE 2 PUFFS BY MOUTH IN THE MORNING 12 g 3 3 10/06/19 24 Active Additional Information Patient taking differently:2 Puff Inhalation Daily(AM),Hasn't started it yet, Reported on 08/12/2022 OneTouch Vermiguel In Vitro Strip (Glucose Blood)Indications: Type 2 diabetes mellitus with hemoglobin A1c goal of less than 7.0% ([facility]) Use to test blood glucose 4 [...] A1c goal of less than 7.0% ([facility]) Take 1 Tablet by mouth 2 [...] 90 Tablet 3 4 09/29/19 25 Active predniSONE 20 MG Oral Tablet (Deltasone) [...] of this encounter Progress Notes * Maximo Lion, [facility] - 09/30/2023 9:51 AM EDT Medication Therapy Disease Management Clinic [...] Medication Injection Site: N/A Lifestyle: Diet: unchanged Activity: increased - walks her dog ~1.5 miles twice daily most days, sometimes 4 times a day. History of Treatment Barriers: Lifestyle: None Therapy [...] Pre am Pre Lunch Pre pm HS -Aug 150 108 78 119 137 148 136 113 141 158 118 129 147 169 151 109 143 124 118 100 152 188 127 98 155 131 120 109 117 130 121 146 116 160 168 118 120 151 147 130 135 143 179 142 181 121 141 126 131 146 158 110 141 144 140 143 136 130 135 133 137 142 165 111 137 140 130 121 172 147 139 135 113 192 167 165 134 147 161 118 150 127 119 107 166 129 136 119 158 118 130 143 186 169 158 121 130 142 159 118 160 143 127 118 141 131 120 106 98 161 148 131 129 156 125 114 114 164 140 113 123 137 147 111 145 121 136 149 133 147 151 109 127 130 146 151 141 136 141 129 113 127 138 116 127 156 132 109 136 159 132 80 125 145 148 121 120 124 129 136 131 146 119 108 99 115 132 140 96 109 132 147 139 118 107 136 146 117 125 89 142 109 118 126 162 140 129 146 155 128 131 140 113 127 155 122 132 109 91 146 122 139 120 109 122 Pre am Pre Lunch Pre pm HS Average 136 139 136 123 Hi 186 192 179 165 Lo 96 108 78 80 Range 90 84 101 85 Hypoglycemia: Does your blood sugar go below 70 mg/dL? Yes, 5 times (not before meals) Treats correctly Hyperglycemia symptoms present: polydipsia Goal <7 Recent Labs Units 09/30/23 0913 05/31/23 1031 03/15/23 1029 HEMOGLOBIN A1C - [facility] % -- -- 6.7* HEMOGLOBIN A1C POCT - [facility] % 7.3* 7.1* -- Recent Labs Units 08/23/23 0945 08/03/23 1404 07/02/23 1229 ESTIMATED GLOMERULAR FILTRATION RATE - [facility] mL/min 74 54* 40* CREATININE - [facility] mg/dL 0.9 1.1* 1.4* Lab Results Component Value Date/Time CREATININE - [facility] 0.9 08/23/2023 09:45 AM CREATININE - [facility] 1.1 (H) 08/03/2023 02:04 PM CREATININE - [facility] 1.4 (H) 07/02/2023 12:29 PM CREATININE - [facility] 1.2 (H) 05/01/2020 [...] daily BP Readings from Last 3 Encounters: 09/28/23 128/72 08/23/23 140/80 08/03/23 138/79 Blood pressure at goal: yes HYPERLIPIDEMIA: Patient is taking moderate or high intensity statin: No, statin allergy Current regimen: Zetia 10mg daily Goal statin intensity: high The 10-year ASCVD risk score (Ellie CRAIG, et al., 2019) is: 16.1% Values used to calculate the score: Age: 67 years Sex: Female Is Non- : No Diabetic: Yes Tobacco smoker: No Systolic Blood Pressure: 128 mmHg Is BP treated: Yes HDL Cholesterol: 41 mg/dL Total Cholesterol: 174 mg/dL Recent Labs Units 10/26/22 1228 03/06/22 0949 LDL CHOLESTEROL (CALCULATED) - [facility] mg/dL 95 104 HEALTH MAINTENANCE REVIEW: Health Maintenance Due Topic Date Due *COPD SEVERITY VERIFIED BY PFT Never done COVID-19 Vaccine ( season) 2023 Diabetic Foot Exam 08/07/2023 ASSESSMENT & PLAN: ICD-10-CM 1. Type 2 diabetes mellitus with hemoglobin A1c goal of less than 7.0% (HCC) E11.9 BG Readings - Blood sugars controlled. A1C 7.3 today - slight increase Medications - Reviewed current regimen, patient is adherent to regimen. No changes made due to occasional lows. She will also be increasing her activity as the weather gets nicer. Diet, Exercise, Lifestyle - No significant lifestyle [...] snack (when eating) HEALTH MAINTENANCE INTERVENTIONS: Labs: Up to Date Immunizations: Up to Date Foot Exam: Complete with next PCP visit on 09/29 Eye Exam: Up to Date Annual Wellness Visit: Up to Date FOLLOW UP: Return to clinic in 3 months 12/31/2023 Maximo Burch RPh, CDE Clinical Pharmacist - Grievance Coordinator Medication Therapy Management Clinic 09/30/2023, 9:52 AM documented in this encounter Plan of Treatment Upcoming Encounters Date Type Department Care Team (Late st Contact Info) Description 09/30/2023 10:40 AM EDT Office Visit General Internal Medicine [facility] [address] [facility] [place] [address] Orlin Castro MD [address] [facility] [place] [address] Arrived 10/05/2023 3:30 PM EDT Office Visit Dermatology [facility] [address] [facility] [place] [address] Ling Capellan, [place] [address] [facility] [place] [address] 10/13/2023 9:00 AM EDT [facility] [address] [id number] Luis Corona [address] [place] [address] 11/24/2023 8:45 AM EDT Office Visit Orthopaedics [facility] [place] [address] [place] [address] Javon Bunn, DO [address] [place] [address] 11/30/2023 9:30 AM EDT Imaging Radiology [address], [place] [address] [place] [address] 12/15/2023 9:00 AM EDT Procedure Only Endoscopy, [facility] [address] [place] [address] Raymond Campbell MD [address] [place] [address] 12/31/2023 10:00 AM EDT Office Visit Pharmacy, [facility] [address] [facility] [place] [address] Pharmacist1, [facility] [address] [facility] [place] [address] 02/17/2024 7:50 AM EDT Office Visit Optometry, [place] [address] [place] [address] Ari Staley, [place] [address] [place] [address] 03/27/2024 8:40 AM EDT Office Visit Endocrinology, [place] [address] [place] [address] Nhung Monzon MD [address] [place] [address] 05/08/2024 11:20 AM EST Office Visit Nephrology, [facility] [address] [place] [address] Galindo Jean MD [address] [place] [address] Health Maintenance Due Date Last Done Comments *COPD SEVERITY VERIFIED BY PFT 08/02/2019 COVID-19 Vaccine (2022- season) 2023 07/07/2022, 02/15/2021, 01/09/2021, Additional history exists Diabetic Foot Exam 08/07/2023 08/07/2022, 0 08/21/2021, 10/22/2020, Additional history exists COLONOSCOPY-ANNUAL AGES 18-100 12/18/2023 [...] Screening 06/22/2024 06/22/2023 CKD HGB USE SMARTSET 56950 08/03/202408/03, 08/03/2023, 07/02/2023, Additional history exists CKD PHOS USE SMARTSET 88326 08/23/202408/05, 08/03/2023, 07/02/2023, Additional history exists O2 [...] this encounter Medical Devices Implanted Type Area Control Systems Developer Device Identifier Shelf Expiration Date Model / Serial / Lot Stent Pancreatic Geenen 5fr - [id number] Implanted:Qty: 1 on 06/17/2010 at OR [facility] [employer] 03/18/2013 [id number] / / [id number] Stent 10fr 7cm - [id number] Implanted:Qty: 1 on 06/17/2010 at OR [facility] COOK : RADHA [place] 01/15/2013 [id number] / / [id number] Description:pancreas documented as of this encounter Procedures Procedure Name Priority Date/Time Associated Diagnosis Comments HEMOGLOBIN A1C, POINT OF CARE Routine 09/30/2023 9:13 AM EDT Type 2 diabetes mellitus with hemoglobin A1c goal of less than 7.0% (HCC) documented in this encounter Results * (ABNORMAL) HEMOGLOBIN A1C, POINT OF CARE (09/30/2023 9:13 AM EDT) Hemoglobin A1c 7.3(H) 4.0 - 5.6 % 09/30/2023 10:08 AM EDT [facility] 56-02 Blood 09/30/2023 9:13 AM EDT 09/30/2023 10:08 AM EDT Maximo Burch V, RP LAB POINT OF CARE TE ST DOCKED DEVICE UNSOLICITED RESULTS [facility] 56[facility]02 [facility] [address] documented in this encounter Visit Diagnoses Diagnosis [...] the patient have Health Care Power of Washer Engineer? No Care Teams Virtualization Consultant Relationship Specialty Start Date End Date Orlin Castro MD [address] [facility] [address] PCP - General Internal Medicine 04/27/19 documented as of this encounter
--- OUTSIDE RECORDS SUMMARY | 2024-01-23 13:02 | External Medical Summary | Summary of Care ---
Author Name Unknown Organization [facility] Address [address] [facility] [place] [place] [address] Phone [phone] Care Team Providers Care Gold Buyer Name Role Phone Orlin Castro MD Primary Care Provider + Reason for Visit * Reason Comments Medication Refill Encounter Details Date Type Department Care Team (Late st Contact Info) Description 09/28/2023 Refill General Internal Medicine [facility] [address] [place] [address] Orlin Castro MD [address] [facility] [place] [address] Essential hypertension with goal blood pressure less than 140/90 Allergies Active Allergy Reactions Criticality Noted Date Comments Zolpidem Tartrate Psych complications 6 Rosuvastatin 04/05/2020 Elevated lft Hydrochlorothiazide 12/29/2019 brenda Nsaids Other (Please comment) 04/14/2016 Gastric ulcer with anemia documented as of this encounter (statuses as of 09/29/2023) Medications Medication Sig Dispensed Refills Start Date [...] 2017 classification ([facility]) Inhale via nebulizer . Use as directed. 1 Each 1 2 Active Ipratropium-[place] rol 0.5-2.5 (3) MG/3ML Inhalation Solution (Duoneb)Indication s:COPD, group B, by GOLD 2017 classification ([facility]) Inhale via nebulizer 3 mL every 6 [...] Tablet 3 3 10/18/19 24 Active Tiotropium [place] Monohydrate 2.5 MCG/ACT Inhalation Aerosol Solution (Spiriva Respimat)Indicatio ns:COPD, group B, by GOLD 2017 classification ([facility]) INHALE 2 PUFFS BY MOUTH IN THE MORNING 12 g 3 3 10/06/19 24 Active Additional Information Patient taking differently:2 Puff Inhalation Daily(AM),Hasn't started it yet, Reported on 08/12/2022 Scar Gu In Vitro Strip (Glucose Blood)Indications: Type 2 diabetes mellitus with hemoglobin A1c goal of less than 7.0% ([facility]) Use to test blood glucose 4 times [...] TIMES DAILY 270 Tablet 1 4 Active predniSONE 20 MG Oral Tablet (Deltasone) Take 3 tabs for 3 days, 2 tabs for 3 days, 1 tab for 3 days, 1/2 tab for 3 days 20 Tablet 0 4 Active Sucralfate 1 GM Oral Tablet [...] 90 Tablet 3 4 09/29/19 25 Active amLODIPine Besylate 10 MG Oral Tablet (Norvasc)Indicatio ns:Essential hypertension with goal blood pressure less than 140/90 TAKE ONE TABLET BY MOUTH EVERY DAY. 90 Tablet 3 3 09/28/19 24 Discontinu ed(Refill) documented as of this encounter (statuses as of 09/29/2023) Active Problems Problem Noted Date Diagnosed Date [...] as of this encounter (statuses as of 09/29/2023) Resolved Problems Problem Noted Date Diagnosed Date [...] as of this encounter (statuses as of 09/29/2023) Immunizations Name Administration Dates Next Due COVID-19 [...] encounter Miscellaneous Notes * Telephone Encounter - Mayo Chappell RPh - 09/29/2023 9:11 AM EDTSigned Prescriptions: Disp Refills amLODIPine Besylate 10 MG Oral Tablet (Nor*90 Tab*3 Sig: TAKE ONE TABLET BY MOUTH EVERY DAY.Authorizing Provider: ORLIN CASTRO User: MAYO CHAPPELL documented in this encounter Plan of Treatment Upcoming Encounters Date Type Department Care Team (Late st Contact Info) Description 09/30/2023 10:10 AM EDT Office Visit Pharmacy, [facility] [address] [place] [address] Pharmacist1, [facility] [address] [facility] [place] [address] 09/30/2023 10:40 AM EDT Office Visit General Internal Medicine [facility] [address] [facility] [place] [address] Orlin Castro MD [address] [facility] [place] [address] 10/05/2023 3:30 PM EDT Office Visit Dermatology [facility] [address] [place] [address] Ling Capellan PA-C [address] [place] [address] 11/24/2023 8:45 AM EDT Office Visit Orthopaedics [facility] [address] [facility] [place] [address] Javon Bunn, [address] [facility] [place] [address] 11/30/2023 9:30 AM EDT Imaging Radiology [address] [facility] [place] [address] 12/15/2023 9:00 AM EDT Procedure Only Endoscopy, [facility] [address] [place] [address] Raymond Campbell MD [address] [place] [address] 02/17/2024 7:50 AM EDT Office Visit Optometry, [place] [address] [place] [address] Ari Staley, [place] [address] [place], [place] [id number] 03/27/2024 8:40 AM EDT Office Visit Endocrinology, [place] [address] [place] [address] Nhung Monzon MD [address] [place] [address] 05/08/2024 11:20 AM EST Office Visit Nephrology, [facility] [address] [place] [address] Galindo Jean MD [address] [place] [address] Health Maintenance Due Date Last Done Comments [...] Screening 06/22/2024 06/22/2023 CKD HGB USE SMARTSET 12133 08/03/202408/03, 08/03/2023, 07/02/2023, Additional history exists CKD PHOS USE SMARTSET 90306 08/23/202408/05, 08/03/2023, 07/02/2023, Additional history exists O2 [...] this encounter Medical Devices Implanted Type Area Healthcare Liaison Device Identifier Shelf Expiration Date Model / Serial / Lot Stent Pancreatic Jonathan 5fr - [id number] Implanted:Qty: 1 on 06/17/2010 at OR [facility] [employer] 03/18/2013 [id number] / / [id number] Stent 10fr 7cm - [id number] Implanted:Qty: 1 on 06/17/2010 at [facility] COOK : RADHA [place] 01/15/2013 [id number] / / [id number] Description:pancreas documented as of this encounter Visit Diagnoses Diagnosis Essential hypertension with goal blood pressure less than 140/90 documented in this encounter Advance Directives Latest [...] the patient have Health Care Power of Engineer Operations And Maintenance? No Care Teams Gold Buyer Relationship Specialty Start Date End Date Orlin Castro MD [address] [place] [address] PCP - General Internal Medicine 04/27/19 documented as of this encounter
--- OUTSIDE RECORDS SUMMARY | 2024-01-23 13:02 | External Medical Summary | Summary of Care ---
Author Name Unknown Organization [facility] Address [address] [facility] [place] [address] Phone [phone] Care Team Providers Care Dehydration Unit Operator Name Role Phone Orlin Castro MD Primary Care Provider + Reason for Visit * Reason Comments Follow Up Encounter Details Date Type Department Care Team (Latest Contact Info) Description 09/28/2023 9:30 AM EDT Office Visit Cardiology, [facility] [address] [place] [address] Dee Acevedo DO [address] [place] [address] Hypertension goal BP (blood pressure) < 140/90*; Mixed hyperlipidemia Allergies Active Allergy Reactions Criticality Noted Date Comments Zolpidem Tartrate Psych complications 6 Rosuvastatin 04/05/2020 Elevated lft Hydrochlorothiazide 12/29/2019 brenda Nsaids Other (Please comment) 04/14/2016 Gastric ulcer with anemia documented as of this encounter (statuses as of 09/28/2023) Medications Medication Sig Dispensed Refills Start Date [...] 90 Tablet 3 12/10/2022 12/10/19 24 Active amLODIPine Besylate 10 MG Oral Tablet (Norvasc)Indication s:Essential hypertension with goal blood pressure less than 140/90 TAKE ONE TABLET BY MOUTH EVERY DAY. 90 Tablet 3 09/16/2022 09/28/19 24 Active Cyclobenzaprine HCl 10 MG Oral Tablet (Flexeril)Indicatio ns:Spasm of muscle TAKE ONE TABLET BY MOUTH AT BEDTIME NEEDED FOR MUSCLE SPASMS. 90 Tablet 3 09/16/2022 10/18/19 24 Active Tiotropium Hamilton Monohydrate 2.5 MCG/ACT Inhalation Aerosol Solution (Spiriva Respimat)Indication s:COPD, group B, by GOLD 2017 classification ([facility]) INHALE 2 PUFFS BY MOUTH IN THE MORNING 12 g 3 08/07/2022 10/06/19 24 Active Additional Information Patient taking differently:2 Puff Inhalation Daily(AM),Hasn't started it yet, Reported on 08/12/2022 Scar Gu In Vitro Strip (Glucose Blood)Indications:T [...] less than 7.0% ([facility]) Take 1 Tablet by mouth 2 [...] 180 Tablet 3 09/07/2023 09/07/19 25 Active documented as of this encounter (statuses as of 09/28/2023) Active Problems Problem Noted Date Diagnosed Date [...] as of this encounter (statuses as of 09/28/2023) Resolved Problems Problem Noted Date Diagnosed Date [...] as of this encounter (statuses as of 09/28/2023) Immunizations Name Administration Dates Next Due COVID-19 [...] 07/05/2006 Smokeless Tobacco: Never Tobacco Cessation:Counseling Given: No Alcohol Use Standard Drinks/Week Comments No 0 [...] Sign Reading Time Taken Comments Blood Pressure 128/72 09/28/2023 9:34 AM EDT Pulse 60 09/28/2023 9:34 AM EDT Temperature - - Respiratory Rate 18 09/28/2023 9:34 AM EDT Oxygen Saturation - - Inhaled Oxygen Concentration - - Weight 76.2 kg (168 lb 1.6 oz) 09/28/2023 9:34 A M EDT Height - - Body Mass Index 28.85 08/23/2023 7:49 AM EST documented in this encounter Functional Status Functional [...] as of this encounter Progress Notes * Dee Acevedo, - 09/28/2023 10:06 AM EDT 09/28/2023 Cardiology Follow Up CHIEF COMPLAINT: Follow up, hypertension, dyslipidemia SUBJECTIVE: Mallory Soto is a 67 year old year old female who returns routine cardiology follow-up. From a cardiac perspective she notes feeling well. She states that she had been hospitalized 3 times in the calendar year of 2022 in July, October, and again in June with bronchitis. At present she was feeling improved. Her blood pressure is under good control and she was tolerating her current medications. Extensive ROS: All systems reviewed & are unremarkable except as noted in HPI & below Cardiovascular (chest pain/palpitations/fluttering/diaphoresis/dyspnea on exertion/paroxysmally nocturnal dyspnea):Negative Review of patient's allergies indicates: Allergen Reactions Ambien [Zolpidem Tartrate] Psych complications Crestor [Rosuvastatin] Elevated lft Hctz [Hydrochlorothiazide] brenda Nsaids Other (Please comment) Gastric ulcer with anemia Current Outpatient Medications Medication Sig Dispense Refill [...] FOR MUSCLE SPASMS. 90 Tablet 3 Tiotropium Hamilton Monohydrate 2.5 MCG/ACT Inhalation Aerosol Solution (Spiriva Respimat) INHALE 2 PUFFS BY MOUTH IN THE MORNING (Patient taking differently: Inhale 2 Puffs by mouth in the morning. Hasn't started it yet.) 12 g 3 [employer] In Vitro Strip (Glucose Blood) Use [...] MORNING AND EVENING MEALS 180 Tablet 3 predniSONE 20 MG Oral Tablet (Deltasone) Take 3 tabs for 3 days, 2 tabs for 3 days, 1 tab for 3 days, 1/2 tab for 3 days 20 Tablet 0 No current facility-administered medications for this visit. OBJECTIVE/PHYSICAL EXAMINATION: BP 128/72 (BP Site: Left Arm, BP Position: Sitting, BP Cuff Size: Large) | Pulse 60 | Resp 18 | Wt 76.2 kg (168 lb 1.6 oz) | BMI 28.85 kg/m | BSA 1.86 m General: no acute distress and stated age Eyes: conjunctiva are pink and non-injected, sclera clear Neck: normal jugular venous pulse, no hepatojugular reflux Chest: normal shape and normal respiratory effort Lungs: clear to auscultation , no rales rhonchi or wheezing Cardiac Exam: - regular heart sounds, no murmurs, rubs, or gallops Abdomen: abdomen soft, non-tender, no abnormal masses and no hepatosplenomegaly Musculoskeletal: no gait disturbance, no weakness Extremities: no edema and no cyanosis Neuro: grossly normal exam Psych: appropriate affect and insight. Data: EKG performed today 09/28/2023 revealed sinus bradycardia 56 beats per minute with suggestion of possible left atrial enlargement otherwise normal tracing. Most recent echocardiogram performed in 2017 revealed mild left atrial enlargement, no significant mitral regurgitation, preserved LVEF. Results for orders placed or performed in visit on 10/26/22 LIPID PANEL WITH DIRECT LDL IF TG IS HIGH Result Value Ref Range Triglycerides 190 (H) <=174 mg/dL Cholesterol 174 <200 mg/dL HDL Cholesterol 41 (L) >49 mg/dL Non-HDL Cholesterol 133 <=159 mg/dL LDL Cholesterol 95 <=129 mg/dL Latest Reference Range & Units 08/23/23 09:45 Albumin 3.8 - 5.0 g/dL 4.3 AST 10 - 35 U/L 44 (H) ALT 10 - 35 U/L 59 (H) Alkaline Phosphatase 35 - 130 U/L 177 (H) Bilirubin, Total <=1.2 mg/dL 0.3 Bilirubin, Direct 0.0 - 0.3 mg/dL <0.2 (H): Data is abnormally high Latest Reference Range & Units 08/23/23 09:45 Sodium 135 - 146 mmol/L 142 Potassium 3.5 - 5.1 mmol/L 3.9 Chloride 98 - 107 mmol/L 105 CO2 22 - 32 mmol/L 22 BUN 6 - 20 mg/dL 26 (H) Creatinine 0.5 - 1.0 mg/dL 0.9 Estimated Glomerular Filtration Rate >=60 mL/min 74 Anion Gap 7 - 15 mmol/L 15 Glucose 70 - 120 mg/dL 133 (H) Calcium 8.4 - 10.2 mg/dL 9.3 Phosphorus 2.5 - 4.8 mg/dL 4.4 (H): Data is abnormally high ASSESSMENT / PLAN: 67 year old year old female Hypertension goal BP (blood pressure) < 140/90 [...] mitral regurgitation. Most recent echocardiogram performed in 2016 revealed significant MR. No significant murmur appreciated on exam today. Patient is seen in chronic longitudinal follow-up of chronic conditions of hypertension and dyslipidemia with findings and plan as noted above. Follow Up: Return in about 1 year (around 09/27/2024) for Clinic Visit. | For: Clinic Visit Dee Acevedo DO Cardiology, [address] [address] This chart was completed in part utilizing [employer]andsave Speech Voice Recognition Software. Grammatical errors, random [...] documented in this encounter Nursing Notes * Nila Uribe RN - 09/28/2023 9:37 AM EDT Examination Room: 12 Name: Mallory Soto Date of : (1955). Reason for Visit: Follow up Interim Hospitalization(s): [facility] ([facility]) Problems/Concerns: States feeling well from cardiac standpoint. Denies concerns. Chest Pain/SOB: Denies [facility] Discussed: Yes [facility] is a way you can talk to your provider online through e-mail. Would you like to sign up? I can activate it for you? ALREADY ACTIVE Patient was instructed to not get up on the exam table until directed and assisted by their provider; patient is to remain seated in the chair/ wheelchair/ exam table for fall prevention and safety reasons. Patient is aware to have assistance to step down off exam table with personnel. Patient voiced full comprehension of instructions. documented in this encounter Miscellaneous Notes * Addendum Note - Dee Acevedo DO - 09/28/2023 10:24 AM EDTAddended by: DEE ACEVEDO on: 09/28/2023 10:24 AM Modules accepted: Level of Service documented in this encounter Plan of Treatment Upcoming Encounters Date Type Department Care Team (Late st Contact Info) Description 09/30/2023 10:10 AM EDT Office Visit Pharmacy, [facility] [address] [facility] [place] [address] Pharmacist1, [facility] [address] [facility] [place] [address] 09/30/2023 10:40 AM EDT Office Visit General Internal Medicine [facility] [address] [facility] [place] [address] Orlin Castro MD [address] [facility] [place] [address] 10/05/2023 3:30 PM EDT Office Visit Dermatology [facility] [address] [facility] [place] [address] Ling Capellan PA-C [address] [facility] [place] [address] 11/24/2023 8:45 AM EDT Office Visit Orthopaedics [facility] [address] [place] [address] Javon Bunn DO [address] [place] [address] 11/30/2023 9:30 AM EDT Imaging Radiology [address] [place] [address] 12/15/2023 9:00 AM EDT Procedure Only Endoscopy, [place] [facility] [place] [address] Raymond Campbell MD 132 [facility] [place] [address] 02/17/2024 7:50 AM EDT Office Visit Optometry, [place] [address] [place] [address] Dee Chapman Jr. [address] [place] [address] 03/27/2024 8:40 AM EDT Office Visit Endocrinology, [place] [address] [place] [address] Nhung Monzon MD [address] [place], [place] [address] 05/08/2024 11:20 AM EST Office Visit Nephrology, [facility] [address] [facility] [place] [address] Galindo Jean MD [address] [facility] [place] [address] Scheduled Orders Name Type Priority Associated Diagnoses Orde r Schedule EKG EKG Routine Hypertension goal BP (blood pressure) < 140/90 Mixed hyperlipidemia Expected: 09/28/2023 (Approximate), Expires: 10/28/2024 Health Maintenance Due Date Last Done Comments [...] Screening 06/22/2024 06/22/2023 CKD HGB USE SMARTSET 99916 08/03/202408/03, 08/03/2023, 07/02/2023, Additional history exists CKD PHOS USE SMARTSET 42689 08/23/202408/05, 08/03/2023, 07/02/2023, Additional history exists O2 [...] this encounter Medical Devices Implanted Type Area Program Therapist Device Identifier Shelf Expiration Date Model / Serial / Lot Stent Pancreatic Geenen 5fr - [id number] Implanted:Qty: 1 on 06/17/2010 at OR [facility] 03/18/2013 [id number] / / [id number] Stent 10fr 7cm - [id number] Implanted:Qty: 1 on 06/17/2010 at OR [facility] : RADHA [place] 01/15/2013 [id number] / / [id number] Description:pancreas documented as of this encounter Visit Diagnoses Diagnosis Hypertension goal BP (blood pressure) < 140/90- Primary Unspecified essential hypertension Mixed hyperlipidemia documented in this encounter Advance Directives Latest [...] the patient have Health Care Power of Charter Representative? No Care Teams Dehydration Unit Operator Relationship Specialty Start Date End Date Orlin Castro MD 200 [facility] [place] [address] PCP - General Internal Medicine 04/27/19 documented as of this encounter"
--- OUTSIDE RECORDS SUMMARY | 2024-01-23 13:02 | External Medical Summary ---
Author Name Unknown Address Unknown Organization K09:[facility] [place] [address] Laboratory Report Ordering Provider Test Date Status FRANDY GARIBAY V 09/30/2023 09:13:46 Final Observation Date Value Abnormality Reference (Units ) Status HbA1C 09/30/2023 09:13:46 7.3 Above high normal 4. 0-5.6 (%) Final Performing Location [facility] [address]
--- OUTSIDE RECORDS SUMMARY | 2024-01-23 13:02 | External Medical Summary | Summary of Care ---
Author Name Unknown Organization [facility] Address [address] [place] [address] Phone [phone] Care Team Providers Care Oil And Gas Exploration Technician Name Role Phone Orlin Castro MD Primary Care Provider + Reason for Visit * Reason Onset Date Comments Advice 09/28/2023 Blood work and m edication questions Encounter Details Date Type Department Care Team (Late st Contact Info) Description 09/28/2023 Telephone Endocrinology, [place] [address] [place] [address] Nhung Monzon MD [address] [place] [address] Advice (Blood work and medication questions ) Allergies Active Allergy Reactions Criticality Noted Date [...] Tablet 3 09/16/2022 10/18/19 24 Active Tiotropium [place] Monohydrate 2.5 MCG/ACT Inhalation Aerosol Solution (Spiriva Respimat)Indication s:COPD, group B, by GOLD 2017 classification ([facility]) INHALE 2 PUFFS BY MOUTH IN THE MORNING 12 g 3 08/07/2022 10/06/19 24 Active Additional Information Patient taking differently:2 Puff Inhalation Daily(AM),Hasn't started it yet, Reported on 08/12/2022 OneJaylanNewmerixmiguel In Vitro Strip (Glucose Blood)Indications:T ype 2 [...] 180 Tablet 3 09/07/2023 09/07/19 25 Active dexAMETHasone 1 MG Oral TabletIndications:A drenal nodule (HCC) Take 1 Tablet by mouth once for 1 dose. at 11pm the night before blood draw (early next morning). 1 Tablet 0 09/28/2023 09/28/19 24 Active documented as of this encounter [...] Miscellaneous Notes * Telephone Encounter - Monae Tiwari OSA - 09/28/2023 10:32 AM EDT Patient was supposed to knot picker cloth the medication Dexamethasone 1 mg and take it the night before getting blood work , patient did not know that the medication went to the pharmacy in 03/2023 and never picked it up , the medication and she will need new orders for blood work , patient would like to know if Dr. Nhung Monzon wants her to do this bloodwork , please contact patient at [phone] documented in this encounter Plan of Treatment Upcoming Encounters Date Type Department Care Team (Late st Contact Info) Description 09/30/2023 10:10 AM EDT Office Visit Pharmacy, [facility] [place] [address] [place] [address] Pharmacist1, [facility] [address] [place] [place] [address] 09/30/2023 10:40 AM EDT Office Visit General Internal Medicine [facility] [address] [place] [address] Orlin Castro MD [address] [facility] [place] [address] 10/05/2023 3:30 PM EDT Office Visit Dermatology [facility] [address] [place] [address] Ling Capellan PA-C [address] [facility] [place] [address] 11/24/2023 8:45 AM EDT Office Visit Orthopaedics [facility] [address] [facility] [place] [address] Javon Bunn, [facility] [place] [address] 11/30/2023 9:30 AM EDT Imaging Radiology [address] [facility] [place] [address] 12/15/2023 9:00 AM EDT Procedure Only Endoscopy, [facility] [place] [address] Raymond Campbell MD [address] [place] [address] 02/17/2024 7:50 AM EDT Office Visit Optometry, [place] [address] [place] [address] Rancho Chapman Jr., OD [address] [place] [address] 03/27/2024 8:40 AM EDT Office Visit Endocrinology, [place] [address] [place] [address] Nhung Monzon MD [address] [place] [address] 05/08/2024 11:20 AM EST Office Visit Nephrology, [facility] 200 [facility] [place] [address] Galindo Jean MD 200 [facility] [place] [address] Health Maintenance Due Date Last Done Comments [...] Screening 06/22/2024 06/22/2023 CKD HGB USE SMARTSET 77291 08/03/202408/03, 08/03/2023, 07/02/2023, Additional history exists CKD PHOS USE SMARTSET 17511 08/23/202408/05, 08/03/2023, 07/02/2023, Additional history exists O2 ASSESSMENT COMPLETED IN PAST YEAR FOR COPD 08/23/2024 08/23/2023 Mammogram 09/13/2024 09/14/2023, 09/02, 09/11/2022, Additional history exists DXA Scan 05/12/2026 05/12/2022, 05/12/2022 Lipid Panel 10/27/2027 10/26/2022, 08/2021, 05/10/2021, [...] this encounter Medical Devices Implanted Type Area Payroll And Benefits Manager Device Identifier Shelf Expiration Date Model / Serial / Lot Stent Pancreatic Geenen 5fr - [id number] Implanted:Qty: 1 on 06/17/2010 at OR [facility] 03/18/2013 [id number] / / [id number] Stent 10fr 7cm - [id number] Implanted:Qty: 1 on 06/17/2010 at [facility] : RADHA [place] 01/15/2013 [id number] / / [id number] Description:pancreas documented as of this encounter Visit Diagnoses Diagnosis Adrenal nodule (HCC)- Primary Other specified disorders of adrenal glands documented [...] the patient have Health Care Power of Production Line Technician? No Care Teams Oil And Gas Exploration Technician Relationship Specialty Start Date End Date Orlin Castro MD [address] [place] [address] PCP - General Internal Medicine 04/27/19 documented as of this encounter
--- OUTSIDE RECORDS SUMMARY | 2024-01-23 13:02 | External Medical Summary | Summary of Care ---
Author Name Unknown Organization [facility] Address [address] [place] [address] Phone [phone] Care Team Providers Care Shallot Cleaner Name Role Phone Orlin Castro MD Primary Care Provider + Reason for Visit * Reason Comments Outpatient Testing Encounter Details Date Type Department Care Team (Late st Contact Info) Description 09/28/2023 10:20 AM EDT Laboratory Laboratory, [facility] 132 [place] [address] [facility] [address] [place] [address] Elevated alkaline phosphatase level Allergies Active Allergy Reactions Criticality Noted Date [...] group B, by GOLD 2017 classification ([facility]) Inhale via nebulizer . Use as directed. 1 Each 1 12/30/2021 Active Ipratropium-Albuter ol 0.5-2.5 (3) MG/3ML Inhalation Solution (Duoneb)Indications :COPD, group B, by GOLD 2017 classification ([facility]) Inhale via nebulizer 3 mL every [...] Tablet 3 09/16/2022 10/18/19 24 Active Tiotropium P[place] Monohydrate 2.5 MCG/ACT Inhalation Aerosol Solution (Spiriva Respimat)Indication s:COPD, group B, by GOLD 2017 classification ([facility]) INHALE 2 PUFFS BY MOUTH IN THE MORNING 12 g 3 08/07/2022 10/06/19 24 Active Additional Information Patient taking differently:2 Puff Inhalation Daily(AM),Hasn't started it yet, Reported on 08/12/2022 [employer]JaylanBespoke Post Juan Carlosmiguel In Vitro Strip (Glucose Blood)Indications:T ype 2 [...] DAY 90 Tablet 3 09/06/2023 09/06/19 Active Carvedilol 25 MG Oral Tablet (Coreg)Indications: [...] 09/30/2023 10:10 AM EDT Office Visit Pharmacy, [facility] [place] [address] [place] [address] Pharmacist1, [facility] [address] [facility] [place] [address] 09/30/2023 10:40 AM EDT Office Visit General Internal Medicine [facility] [place] [address] [place] [address] Orlin Castro MD [address] [facility] [place] [address] 10/05/2023 3:30 PM EDT Office Visit Dermatology [facility] [place] [address] [place] [address] Ling Capellan PA-C [address] [facility] [place] [address] 11/24/2023 8:45 AM EDT Office Visit Orthopaedics [facility] [address] [place] [address] Javon Bunn, [address] [place] [address] 11/30/2023 9:30 AM EDT Imaging Radiology [facility]st [facility] [address] [place] [address] 12/15/2023 9:00 AM EDT Procedure Only Endoscopy, [facility] [address] [place] [address] Raymond Campbell MD [address] [place] [address] 02/17/2024 7:50 AM EDT Office Visit Optometry, [place] [address] [place] [address] Rancho Chapman Jr., 16 [place] [address] 03/27/2024 8:40 AM EDT Office Visit Endocrinology, [place] [address] [place], [place] [address] Nhung Monzon MD [address] [place] [address] 05/08/2024 11:20 AM EST Office Visit Nephrology, [facility] [address] [place] [address] Galindo Jean MD [address] [place] [address] Pending Results Name Type Priority Associated Diagnoses Date /Time HEPATIC FUNCTION PANEL Lab Routine Elevated alkaline phosphatase level 09/28/2023 10:21 AM EDT Health Maintenance Due Date Last [...] Screening 06/22/2024 06/22/2023 CKD HGB USE SMARTSET 60580 08/03/202408/03, 08/03/2023, 07/02/2023, Additional history exists CKD PHOS USE SMARTSET 37302 08/23/202408/05, 08/03/2023, 07/02/2023, Additional history exists O2 [...] this encounter Medical Devices Implanted Type Area Mangle Tender Device Identifier Shelf Expiration Date Model / Serial / Lot Stent Pancreatic Geenen 5fr - [id number] Implanted:Qty: 1 on 06/17/2010 at [place] [facility] 03/18/2013 [id number] / / [id number] Stent 10fr 7cm - [id number] Implanted:Qty: 1 on 06/17/2010 at [place] [facility] : RADHA [place] 01/15/2013 [id number] / / [id number] Description:pancreas documented as of this encounter Visit Diagnoses Diagnosis Elevated alkaline phosphatase level Other nonspecific abnormal serum enzyme levels documented in this encounter Advance Directives Latest [...] the patient have Health Care Power of Diagnostic Radiologist? No Care Teams Shallot Cleaner Relationship Specialty Start Date End Date Orlin Castro MD [address] [place] [address] PCP - General Internal Medicine 04/27/19 documented as of this encounter
--- OUTSIDE RECORDS SUMMARY | 2024-01-23 13:02 | External Medical Summary ---
Author Name Unknown Address Unknown Organization : Laboratory Report Ordering Provider Test Date Status IVY DE JESUS 09/30/2023 07:57:20 Final Observation Date Value Abnormality Reference (Units ) Status Dexamethasone [Mass/volume] in Serum or Plasma 09/30/2023 07:57:20 544 (ng/dL) Final Reference Ranges for Dexamet hasone:
Baseline: Less than 20 ng/dL
1 mg dexamethasone overnight: 180-550 ng/dL
(8:00-10:00 AM)
This test was developed and its analytical
performance characteristics have been determined
by [employer]. It has not been cleared or
approved by FDA. This assay has been validated
pursuant to the CLIA regulations and is used for
clinical purposes.
Test performed by [facility]
[address],
[place] [address]

Senior Care Assistant: Alissa Shirley MD,PHD,MATHEW
[facility] Rep[facility] by [facility],
[facility],
[address] [place], [place]
Nj Garcia M.D., Ph.D., Director of Laboratories
, CLIA [id number] Performing Location
--- OUTSIDE RECORDS SUMMARY | 2024-01-23 13:02 | External Medical Summary ---
Author Name Unknown Address Unknown Organization K01:LABORATORY [facility] - [address] [place] [address] Laboratory Report Ordering Provider Test Date Status NEALIVY Haro 09/30/2023 07:57:20 Final Observation Date Value Abnormality Reference (Units ) Status Cortisol 09/30/2023 07:57:20 1.1 <=1.8 (ug/ dL) Final This is a screening test for [place]'s syndrome. Values >1.8 ug/dL represent inadequate suppression of cortisol but are not diagnostic of Aniket's syndrome. Further testing for cortisol excess may be indicated and should be determined clinically. Performing Location LABORATORY [facility] - [address] [place] [address]
--- OUTSIDE RECORDS SUMMARY | 2024-01-23 13:02 | External Medical Summary ---
Author Name Unknown Address Unknown Organization K0G:[facility] [place] [address] Laboratory Report Ordering Provider Test Date Status DO KAYLEENCARLOSMIGUEL 09/28/2023 10:21:19 Final Observation Date Value Abnormality Reference (Units ) Status Albumin 09/28/2023 10:21:19 4.2 3.8-5.0 (g/dL) Final AST (Aspartate aminotransferase) 09/28/2023 10:21:19 21 10-35 (U/L) Final Alk Phos 09/28/2023 10:21:19 177 Above high normal 35-130 (U/L) Final ALT (Alanine aminotransferase) 09/28/2023 10:21:19 55 Above high normal 10-35 (U/L) Final Bilirubin, Total 09/28/2023 10:21:19 0.5 <=1.2 (mg/dL) Final Bilirubin, Direct 09/28/2023 10:21:19 <0.2 0.0-0.3 (mg/dL) Final Protein 09/28/2023 10:21:19 6.8 6.0-8.3 (g/dL) Final Performing Location [facility] [place] [address]
--- OUTSIDE RECORDS SUMMARY | 2024-01-23 13:02 | External Medical Summary | Summary of Care ---
Author Name Unknown Organization [facility] Address [address] [place] [address] Phone [phone] Care Team Providers Care Dredge Deckhand Name Role Phone Orlin Castro MD Primary Care Provider + Reason for Visit * Reason Onset Date Comments Test Results 09/29/2023 Encounter Details Date Type Department Care Team (Late st Contact Info) Description 09/29/2023 Telephone General Internal Medicine [facility] [address] [place] [address] Orlin Castro MD [address] [place] [address] Test Results Allergies Active Allergy Reactions Criticality Noted Date Comments Zolpidem Tartrate Psych complications 6 Rosuvastatin 04/05/2020 Elevated lft Hydrochlorothiazide 12/29/2019 brenda Nsaids Other (Please comment) 04/14/2016 Gastric ulcer with anemia documented as of this encounter (statuses as of 09/29/2023) Medications Medication Sig Dispensed Refills Start Date End Date Status ONETOUCH DELICA [facility] Use to test blood sugar 4 times daily dx e11.9 400 Each 3 03/09/2019 Active Mis. Devices [facility] Tracheostomy Care Kit #4601 1 Each 0 10/02/2019 Active Vitamin B-12 1000 MCG Oral Tablet Take 1 Tab by mouth daily. 90 Tab 3 03/07/2021 Active BluetectorTouch Verio Flex System w/Device Kit Use as directed. To test blood sugars up to 4 times a day Dx E11.22 1 Kit 0 04/03/2021 Active Misc. Devices Laryngectomy tube, size 10LGT 3 Each 0 07/29/2021 Active Misc. Devices Velcro Trach Ties for Laryngectomy Tube 15 Each 11 07/29/2021 Active Compressor NebulizerIndication s:COPD, group B, by GOLD 2017 classification ([facility]) Inhale via nebulizer . Use as directed. 1 Each 1 12/30/2021 Active Ipratropium-Albuter ol 0.5-2.5 (3) MG/3ML Inhalation Solution (Duoneb)Indications :COPD, group B, by GOLD 2017 classification ([facility]) Inhale via nebulizer 3 mL every [...] Tablet 3 09/16/2022 10/18/19 24 Active Tiotropium [place] Monohydrate 2.5 MCG/ACT Inhalation Aerosol Solution (Spiriva Respimat)Indication s:COPD, group B, by GOLD 2017 classification ([facility]) INHALE 2 PUFFS BY MOUTH IN THE MORNING 12 g 3 08/07/2022 10/06/19 24 Active Additional Information Patient taking differently:2 Puff Inhalation Daily(AM),Hasn't started it yet, Reported on 08/12/2022 [employer] In Vitro Strip (Glucose Blood)Indications:T ype 2 diabetes mellitus with hemoglobin A1c goal of less than 7.0% ([facility]) Use to test blood glucose 4 [...] hemoglobin A1c goal of less than 7.0% ([facility]) Take 1 Tablet by mouth 2 times [...] DAY. 90 Tablet 3 09/29/2023 09/29/19 Active documented as of this encounter (statuses [...] encounter Miscellaneous Notes * Telephone Encounter - Rylie Davis LPN - 09/29/2023 9:41 AM EDT Patient aware and verbalized understanding, will comply Lab appt scheduled * Telephone Encounter - Tonie Green MED ASSIST - 09/29/2023 9:38 AM EDT Called patient, left message to return call. MyG sent * Telephone Encounter - Tonie Green MED ASSIST - 09/29/2023 9:34 AM EDT ----- Message from Orlin Castro MD sent at 09/29/2023 8:25 AM EDT ----- Lft still elevated, recheck 2 weeks to follow. No additional med changes right now documented in this encounter Plan of Treatment Upcoming Encounters Date Type Department Care Team (Late st Contact Info) Description 09/30/2023 10:10 AM EDT Office Visit Pharmacy, [facility] [address] [place] [address] Pharmacist1, [facility] 200 [facility] [place] [address] 09/30/2023 10:40 AM EDT Office Visit General Internal Medicine [facility] [address] [facility] [place] [address] Orlin Castro MD [address] [facility] [place] [address] 10/05/2023 3:30 PM EDT Office Visit Dermatology [facility] [address] [facility] [place] [address] Ling Capellan PA-C [address] [facility] [place] [address] 10/13/2023 9:00 AM EDT Laboratory Laboratory, [facility] [address] [place] [id number] CoronaLuis kinsey [facility] [address] [place] [address] 11/24/2023 8:45 AM EDT Office Visit Orthopaedics [facility] [address] [place] [address] Javon Bunn, [address] [place] [address] 11/30/2023 9:30 AM EDT Imaging Radiology [facility] [address] [place] [address] 12/15/2023 9:00 AM EDT Procedure Only Endoscopy, [facility] [address] [place] [address] Raymond Campbell MD [address] [place] [address] 02/17/2024 7:50 AM EDT Office Visit Optometry, [place] [address] [place] [address] Ari Staley, [place], OD 16 [place] [address] 03/27/2024 8:40 AM EDT Office Visit Endocrinology, [place] [address] [place], [place] [address] Nhung Monzon MD [address] [place], [place] [address] 05/08/2024 11:20 AM EST Office Visit Nephrology, [facility] [address] [place] [address] Galindo Jean MD [address] [place] [address] Health Maintenance Due Date Last Done Comments [...] Screening 06/22/2024 06/22/2023 CKD HGB USE SMARTSET 58630 08/03/202408/03, 08/03/2023, 07/02/2023, Additional history exists CKD PHOS USE SMARTSET 69493 08/23/202408/05, 08/03/2023, 07/02/2023, Additional history exists O2 [...] this encounter Medical Devices Implanted Type Area Test Rider Device Identifier Shelf Expiration Date Model / Serial / Lot Stent Pancreatic Geenen 5fr - [id number] Implanted:Qty: 1 on 06/17/2010 at [place] [facility] [employer] 03/18/2013 [id number] / / [id number] Stent 10fr 7cm - [id number] Implanted:Qty: 1 on 06/17/2010 at [place] [facility] [employer] : RADHA [place] 01/15/2013 [id number] / / [id number] Description:pancreas documented as of this encounter Advance [...] the patient have Health Care Power of Clerk Funeral Detail? No Care Teams Dredge Deckhand Relationship Specialty Start Date End Date Orlin Castro MD 200 [place] [address] PCP - General Internal Medicine 04/27/19 documented as of this encounter
--- OUTSIDE RECORDS SUMMARY | 2024-01-23 13:02 | External Medical Summary | Summary of Care ---
Author Name Unknown Organization [facility] Address [address] [facility] [place] [address] Phone [phone] Care Team Providers Care Supervisor Aircraft Maintenance Name Role Phone Orlin Castro MD Primary Care Provider + Reason for Visit * Reason Comments Follow Up Encounter Details Date Type Department Care Team (Latest Contact Info) Description 09/28/2023 9:30 AM EDT Office Visit Cardiology, [facility] [address] [place] [address] Dee Acevedo DO [address] [place] [address] Hypertension goal BP (blood pressure) < 140/90*; [...] B, by GOLD 2017 classification ([facility]) Inhale via nebulizer . Use as directed. 1 Each 1 12/30/2021 Active Ipratropium-Albuter ol 0.5-2.5 (3) MG/3ML Inhalation Solution (Duoneb)Indications :COPD, group B, by GOLD 2017 classification ([facility]) Inhale via nebulizer 3 mL every 6 [...] Tablet 3 09/16/2022 10/18/19 24 Active Tiotropium [place] Monohydrate 2.5 MCG/ACT Inhalation Aerosol Solution (Spiriva Respimat)Indication s:COPD, group B, by GOLD 2017 classification ([facility]) INHALE 2 PUFFS BY MOUTH IN THE [...] goal of less than 7.0% ([facility]) Take 1 Tablet by mouth 2 times [...] FOR MUSCLE SPASMS. 90 Tablet 3 Tiotropium [place] Monohydrate 2.5 MCG/ACT Inhalation Aerosol Solution (Spiriva Respimat) INHALE 2 PUFFS BY MOUTH IN THE MORNING (Patient taking differently: Inhale 2 Puffs by mouth in the morning. Hasn't started it yet.) 12 g 3 [employer] In Vitro Strip (Glucose Blood) Use to [...] For: Clinic Visit Dee Acevedo DO Cardiology, [address] [address] This chart was completed in part utilizing [employer] Speech Voice Recognition Software. Grammatical errors, random [...] Reason for Visit: Follow up Interim Hospitalization(s): [facility] ([facility]) Problems/Concerns: States feeling well from [...] 09/30/2023 10:10 AM EDT Office Visit Pharmacy, [facility] 200 [facility] [place] [address] Pharmacist1, [facility] 200 [facility] [place] [address] 09/30/2023 10:40 AM EDT Office Visit General Internal Medicine [facility] [address] [facility] [place] [address] Orlin Castro MD 200 [facility] [place] [address] 10/05/2023 3:30 PM EDT Office Visit Dermatology [facility] 200 [facility] [place] [address] Ling Capellan PA-C [address] [facility] [place] [address] 11/24/2023 8:45 AM EDT Office Visit Orthopaedics [facility] [address] [place] [address] Javon Bunn DO [address] [place] [address] 11/30/2023 9:30 AM EDT Imaging Radiology [address] [place] [address] 12/15/2023 9:00 AM EDT Procedure Only Endoscopy, [place] [facility] [place] [address] Raymond Campbell MD 132 [facility] [place] [address] 02/17/2024 7:50 AM EDT Office Visit Optometry, [place] [address] [place] [address] Dee Chapman Jr. 16 [place] [address] 03/27/2024 8:40 AM EDT Office Visit Endocrinology, [place] [address] [place] [address] Nhung Monzon MD [address] [place], [place] [phone] 05/08/2024 11:20 AM EST Office Visit Nephrology, [facility] [address] [facility] [place] [address] Galindo Jean MD 200 [facility] [place] [address] Scheduled Orders Name Type Priority Associated Diagnoses [...] Screening 06/22/2024 06/22/2023 CKD HGB USE SMARTSET 58137 08/03/202408/03, 08/03/2023, 07/02/2023, Additional history exists CKD PHOS USE SMARTSET 55405 08/23/202408/05, 08/03/2023, 07/02/2023, Additional history exists O2 [...] this encounter Medical Devices Implanted Type Area Kitchen Runner Device Identifier Shelf Expiration Date Model / Serial / Lot Stent Pancreatic Geenen 5fr - [id number] Implanted:Qty: 1 on 06/17/2010 at [place] [facility] [employer] 03/18/2013 [id number] / / [id number] Stent 10fr 7cm - [id number] Implanted:Qty: 1 on 06/17/2010 at OR [facility] COOK : RADHA [place] 01/15/2013 [id number] / / [id number] Description:pancreas documented as of this encounter Visit [...] the patient have Health Care Power of Front Desk Clerk? No Care Teams Supervisor Aircraft Maintenance Relationship Specialty Start Date End Date Orlin Castro MD 200 [place] [address] PCP - General Internal Medicine 04/27/19 documented as of this encounter"
--- OUTSIDE RECORDS SUMMARY | 2024-01-23 13:02 | External Medical Summary | Summary of Care ---
Author Name Unknown Organization [facility] Address [address] [place] [address] Phone [phone] Care Team Providers Care Associate Software Application Engineer Name Role Phone Orlin Castro MD Primary Care Provider + Reason for Visit * Reason Onset Date Comments Appointment 06/22/2023 Encounter Details Date Type Department Care Team (Late st Contact Info) Description 06/22/2023 Non Profit Director Telephone Care Coordination and Integration [address] [place] [address] Deisy Alegria, RN [address] [place], [place] [phone] Appointment Allergies Active Allergy Reactions Criticality Noted Date Comments Zolpidem Tartrate Psych complications 6 Rosuvastatin 04/05/2020 Elevated lft Hydrochlorothiazide 12/29/2019 brenda Nsaids Other (Please comment) 04/14/2016 Gastric ulcer with anemia documented as of this encounter (statuses as of 09/16/2023) Medications Medication Sig Dispensed Refills Start Date [...] s:COPD, group B, by GOLD 2017 classification ([facility]) Inhale via nebulizer . Use as directed. 1 Each 1 12/30/2021 Active Ipratropium-Albuter ol 0.5-2.5 (3) MG/3ML Inhalation Solution (Duoneb)Indications :COPD, group B, by GOLD 2017 classification ([facility]) Inhale via nebulizer 3 mL every [...] SPASMS. 90 Tablet 3 09/16/2022 4 Active Tiotropium [place] Monohydrate 2.5 MCG/ACT Inhalation Aerosol Solution (Spiriva Respimat)Indication s:COPD, group B, by GOLD 2017 classification ([facility]) INHALE 2 PUFFS BY MOUTH IN THE MORNING 12 g 3 08/07/2022 4 Active Additional Information Patient taking differently:2 Puff Inhalation Daily(AM),Hasn't started it yet, Reported on 08/12/2022 [employer] In Vitro Strip (Glucose Blood)Indications:T ype 2 [...] evening snack. 45 Tablet 0 06/08/2023 Active documented as of this encounter (statuses as of 09/16/2023) Active Problems Problem Noted Date Diagnosed Date Type 2 diabetes mellitus wit h diabetic chronic kidney disease 08/03/2023 Stage 3 chronic kidney disease 08/03/2023 Primary aldosteronism 03/15/2023 Thyroid cancer 03/15/2023 Pancreatic [...] as of this encounter (statuses as of 09/16/2023) Resolved Problems Problem Noted Date Diagnosed Date [...] as of this encounter (statuses as of 09/16/2023) Immunizations Name Administration Dates Next Due COVID-19 [...] encounter Miscellaneous Notes * Telephone Encounter - Jovanny Dai OSA - 08/17/2023 9:05 AM EST Pt is scheduled Aug 23 * Telephone Encounter - Jovanny Dai OSA - 06/22/2023 3:39 PM EST LMOM to schedule with pulmonary * Telephone Encounter - Deisy Alegria RN - 06/22/2023 2:21 PM EST Scheduling, Pt needs seen for hospital d/c follow up by pulmonology. Was hospitalized for COPD exacerbation requiring 4lpm of O2. 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 Would prefer to do locally if possible. Thank you, Deisy Douglass (Gott), RN [facility] Nurse Non Profit Director [facility] [place] [phone] documented in this encounter Plan of Treatment Upcoming Encounters Date Type Department Care Team (Late st Contact Info) Description 09/28/2023 9:30 AM EDT Office Visit Cardiology, [facility] [address] [place] [address] [place], [address] [place] [address] 09/30/2023 10:10 AM EDT Office Visit Pharmacy, [facility] [place] [address] [place] [address] Pharmacist1, [facility] Sp [address] [place] [address] 09/30/2023 10:40 AM EDT Office Visit General Internal Medicine [facility] [place] [address] [place] [address] Orlin Castro MD [address] [place] [address] 10/05/2023 3:30 PM EDT Office Visit Dermatology [facility] [place] [address] [place] [address] Ling Capellan, [place] [address] [facility] [place] [address] 11/24/2023 8:45 AM EDT Office Visit Orthopaedics [facility] [address] [facility] [place] [address] Javon Bunn DO [address] [facility] [place] [address] 11/30/2023 9:30 AM EDT Imaging Radiology [facility]st [facility] 132 [facility] [place] [address] 12/15/2023 9:00 AM EDT Procedure Only Endoscopy, [facility] 132 [facility] [place] [address] Raymond Campbell MD [facility] [place] [address] 02/17/2024 7:50 AM EDT Office Visit Optometry, [place] [address] [place] [address] Rancho Chapman Jr., OD 16 [place] [address] 03/27/2024 8:40 AM EDT Office Visit Endocrinology, [place] [address] [place] [address] Nhung Monzon MD [address] [place] [address] 05/08/2024 11:20 AM EST Office Visit Nephrology, [place] 200 [facility] [place] [address] Galindo Jean MD [address] [place] [address] Health Maintenance Due Date Last Done Comments [...] Screening 06/22/2024 06/22/2023 CKD HGB USE SMARTSET 20116 08/03/202408/03, 08/03/2023, 07/02/2023, Additional history exists CKD PHOS USE SMARTSET 66005 08/23/202408/05, 08/03/2023, 07/02/2023, Additional history exists O2 [...] this encounter Medical Devices Implanted Type Area Automatic Profile Sander Operator Device Identifier Shelf Expiration Date Model / Serial / Lot Stent Pancreatic Geenen 5fr - [id number] Implanted:Qty: 1 on 06/17/2010 [place] [facility] [employer] 03/18/2013 [id number] / / [id number] Stent 10fr 7cm - [id number] Implanted:Qty: 1 on 06/17/2010 at [place] [facility] [employer] : RADHA [place] 01/15/2013 [id number] / / [id number] Description:pancreas documented as of this encounter Additional Health Concerns Infection Onset Date Last Indicated Resolved Time Respiratory Rule-Out 07/02/2023 07/02/2023 023 7:32 PM EST documented as of this encounter Advance Directives [...] patient have Health Care Power of Manager Operations And Procurement? No Care Teams Associate Software Application Engineer Relationship Specialty Start Date End Date Orlin Castro MD 200 [place] [address] PCP - General Internal Medicine 04/27/19 documented as of this encounter
--- OUTSIDE RECORDS SUMMARY | 2024-01-23 13:03 | External Medical Summary | Summary of Care ---
Author Name Unknown Organization [facility] Address [address] [facility] [place] [address] Phone [phone] Care Team Providers Care Optician Manager Name Role Phone Orlin Castro MD Primary Care Provider + Reason for Visit * Reason Comments Knee Pain bilateral Encounter Details Date Type Department Care Team (Latest Contact Info) Description 08/25/2023 9:30 AM EST Office Visit Orthopaedics [facility] [address] [place] [address] Javon Bunn DO [address] [place] [address] Primary osteoarthritis of both knees* Allergies Active Allergy Reactions Criticality Noted Date Comments Zolpidem Tartrate Psych complications 6 Rosuvastatin 04/05/2020 Elevated lft Hydrochlorothiazide 12/29/2019 brenda Nsaids Other (Please comment) 04/14/2016 Gastric ulcer with anemia documented as of this encounter (statuses as of 08/25/2023) Medications Medication Sig Dispensed Refills Start Date [...] 90 Tablet 3 09/16/2022 10/18/19 24 Active Pantoprazole Sodium 40 MG Oral Tablet Delayed Release (Protonix) TAKE ONE TABLET BY MOUTH EVERY DAY 90 Tablet 3 09/05/2022 09/10/19 24 Active Carvedilol 25 MG Oral Tablet (Coreg)Indications: HTN, goal below 140/90 TAKE ONE TABLET BY MOUTH 2 TIMES A DAY WITH MORNING AND EVENING MEALS 180 Tablet 3 09/04/2022 09/11/19 24 Active Tiotropium [place] Monohydrate 2.5 MCG/ACT Inhalation Aerosol Solution (Spiriva Respimat)Indication s:COPD, group B, by GOLD 2017 classification ([facility]) INHALE 2 PUFFS BY MOUTH IN THE MORNING 12 g 3 08/07/2022 10/06/19 24 Active Additional Information Patient taking differently:2 Puff Inhalation Daily(AM),Hasn't started it yet, Reported on 08/12/2022 Fligoo In Vitro Strip (Glucose Blood)Indications:T ype 2 [...] of less than 7.0% ([facility]) Take 1 Tablet by mouth 2 [...] before bedtime. 360 Tablet 3 07/27/2023 Active Hospital, Clinic, or Other Facility Administered Medication Ordered Dose Route Frequency Start Date End Date Status lidocaine 1% 1 mL - triamcinolone acetonide 40 mg/mL 1 mL inj 2 mLIndications:Primary osteoarthritis of both knees 2 mL IJ ONCE 08/25/2023 08/25/2023 Ended lidocaine 1% 1 mL - triamcinolone acetonide 40 mg/mL 1 mL inj 2 mLIndications:Primary osteoarthritis of both knees 2 mL IJ ONCE 08/25/2023 08/25/2023 Ended documented as of this encounter (statuses as of 08/25/2023) Active Problems Problem Noted Date Diagnosed Date [...] as of this encounter (statuses as of 08/25/2023) Resolved Problems Problem Noted Date Diagnosed Date [...] as of this encounter (statuses as of 08/25/2023) Immunizations Name Administration Dates Next Due COVID-19 [...] Progress Notes * Javon Bunn, DO - 08/25/2023 9:30 AM EST Mallory Soto [id number] INJECTION NOTE Mallory Soto is a 67 year old female who presents to [facility] for Bilateral knee. injections Last injected 05/24/23 she got relief for 3 months Physical [...] MAJOR JX/BURSA W/O US GUIDE Javon Bunn DO, MBA, FAAFP, RMSK [facility] Sports Communications OperatorTelephone Solicitor Supervisor Primary Care Sports Medicine Team Physician [facility] Office locations: Orthopaedics [address] [address] [place] [phone] Procedure note (knee injection), bilateral : Time [...] Notes * Kyleigh Owen MED ASSIST - 08/25/2023 8:48 AM EST Here for bilateral knee inj. documented in this encounter Plan of Treatment Upcoming Encounters Date Type Department Care Team ([facility] st Contact Info) Description 09/14/2023 9:00 AM EDT Imaging Radiology [facility] [address] [place] [address] 09/28/2023 9:30 AM EDT Office Visit Cardiology, [address] [place] [address] [place]o Gordon, DO [address] [place] [address] 09/30/2023 10:10 AM EDT Office Visit Pharmacy, [facility] [address] [place] [address] Pharmacist1, [facility] [address] [place] [address] 09/30/2023 10:40 AM EDT Office Visit General Internal Medicine [facility] [address] [place] [address] Orlin Castro MD 200 [facility] [place] [address] 10/05/2023 3:30 PM EDT Office Visit Dermatology [facility] [address] [place] [address] Ling Capellan PA-C [facility] [address] 11/24/2023 8:45 AM EDT Office Visit Orthopaedics [facility] [address] [place] [address] Javon Bunn, [address] [place] [address] 11/30/2023 9:30 AM EDT Imaging Radiology [address] [place] [address] 12/15/2023 9:00 AM EDT Procedure Only Endoscopy, [facility] [address] [place] [address] Raymond Campbell MD [address] [place] [address] 02/17/2024 7:50 AM EDT Office Visit Optometry, [facility] [address] [place] [address] Ari Staley, [place] Bull[place], OD 16 [place] [address] 03/27/2024 8:40 AM EDT Office Visit Endocrinology, [facility] [address] [place] [address] Nhung Monzon MD [address] [place] [address] 05/08/2024 11:20 AM EST Office Visit Nephrology, [facility] [address] [place] [address] Galindo Jean MD [address] [place] [address] Scheduled Orders Name Type Priority Associated Diagnoses Orde r Schedule INJECT MAJOR JX/BURSA W/O US GUIDE Procedures Routine Primary osteoarthritis of both knees Ordered: 08/25/2023 Health Maintenance Due Date Last Done Comments *COPD SEVERITY VERIFIED BY PFT 08/02/2019 COVID-19 Vaccine ( season) 2023 07/07/2022, 02/15/2021, 01/09/2021, Additional history exists Diabetic Foot Exam 08/07/2023 08/07/2022, 0 08/21/2021, 10/22/2020, Additional history exists Mammogram 09/12/2023 09/11/2022, 09/02, 09/10/2021, Additional history exists HbA1c 11/29/2023 05/31/2023, 03/06, [...] Screening 06/22/2024 06/22/2023 CKD HGB USE SMARTSET 76042 08/03/202408/03, 08/03/2023, 07/02/2023, Additional history exists CKD PHOS USE SMARTSET 08571 08/23/202408/05, 08/03/2023, 07/02/2023, Additional history exists O2 ASSESSMENT COMPLETED IN PAST YEAR FOR COPD 08/23/2024 08/23/2023 DXA Scan 05/12/2026 05/12/2022, 05/12/2022 Lipid Panel [...] this encounter Medical Devices Implanted Type Area Sales Merchandise Associate Device Identifier Shelf Expiration Date Model / Serial / Lot Stent Pancreatic Jonathan 5fr - [id number] Implanted:Qty: 1 on 06/17/2010 [place] [facility] [place] [facility] [place]/18/2013 [id number] / / [id number] Stent 10fr 7cm - [id number] Implanted:Qty: 1 on 06/17/2010 at [place] [facility] [place] RADHA [place] 01/15/2013 [id number] / / [id number] Description:pancreas documented as of this encounter Visit [...] 2 mL 2 mL, Injection, ONCE, On Wed08/25/23 at 0930, For 1 dose, Lidocaine 1% 1mL Triamcinolone Acetonide 40 mg/mL 1 mL (Final concentration = 20 mg/mL) REFRIGERATE and SHAKE WELL Given 08/25/2023 8:52 AM EST 2 mL Knee Right lidocaine 1% 1 mL - triamcinolone acetonide 40 mg/mL 1 mL inj 2 mL 2 mL, Injection, ONCE, On Wed08/25/23 at 0930, For 1 dose, Lidocaine 1% 1mL Triamcinolone Acetonide 40 mg/mL 1 mL (Final concentration = 20 mg/mL) REFRIGERATE and SHAKE WELL Given 08/25/2023 8:52 AM EST 2 mL Knee Left documented [...] the patient have Health Care Power of Power Press Operator? No Care Teams Optician Manager Relationship Specialty Start Date End Date Orlin Castro MD [address] [place] [address] PCP - General Internal Medicine 04/27/19 documented as of this encounter
--- OUTSIDE RECORDS SUMMARY | 2024-01-23 13:03 | External Medical Summary | Summary of Care ---
Author Name Unknown Organization [facility] Address [address] [place] [address] Phone [phone] Care Team Providers Care Family Law Paralegal Name Role Phone Orlin Castro MD Primary Care Provider + Reason for Visit * Reason Onset Date Comments Health Maintenance 08/25/2023 Encounter Details Date Type Department Care Team (Late st Contact Info) Description 08/25/2023 Telephone General Internal Medicine [facility] [address] [place] [address] Orlin Castro MD [address] [place] [address] Health Maintenance Allergies Active Allergy Reactions Criticality Noted Date Comments Zolpidem Tartrate Psych complications 6 Rosuvastatin 04/05/2020 Elevated lft Hydrochlorothiazide 12/29/2019 brenda Nsaids Other (Please comment) 04/14/2016 Gastric ulcer with anemia documented as of this encounter (statuses as of 08/25/2023) Medications Medication Sig Dispensed Refills Start Date End Date Status [facility] Use to test blood sugar 4 times daily dx e11.9 400 Each 3 03/09/2019 Active Misc. Devices [facility] [place] B, by GOLD 2017 classification ([facility]) Inhale via nebulizer . Use as directed. 1 Each 1 12/30/2021 Active Ipratropium-Albuter ol 0.5-2.5 (3) MG/3ML Inhalation Solution (Duoneb)Indications :COPD, group B, by GOLD 2017 classification ([facility]) Inhale via nebulizer 3 mL every [...] Tablet 3 09/04/2022 09/11/19 24 Active Tiotropium [place] Monohydrate 2.5 MCG/ACT Inhalation Aerosol Solution (Spiriva Respimat)Indication s:COPD, group B, by GOLD 2017 classification ([facility]) INHALE 2 PUFFS BY MOUTH IN THE MORNING 12 g 3 08/07/2022 10/06/19 24 Active Additional Information Patient taking differently:2 Puff Inhalation Daily(AM),Hasn't started it yet, Reported on 08/12/2022 Acrolinx In Vitro Strip (Glucose Blood)Indications:T ype 2 diabetes mellitus with hemoglobin A1c goal of less than 7.0% ([facility]) Use to test blood glucose 4 [...] goal of less than 7.0% ([facility]) Take 1 Tablet by mouth 2 [...] before bedtime. 360 Tablet 3 07/27/2023 Active documented as of this encounter (statuses [...] encounter Miscellaneous Notes * Telephone Encounter - Andreia Johnson LPN - 08/25/2023 8:52 AM EST Care Gaps Comprehensive Care Outreach Last Office/Telemedicine Visit: 07/02/2023 (in office), Visit date not found (telemedicine) Next Office Visit: 09/30/2023 Hemoglobin AIC Results: Lab Results Component Value Date/Time HEMOGLOBIN A1C - [facility] 6.7 (H) 03/15/2023 10:29 AM HEMOGLOBIN A1C - [facility] 7.3 (H) 05/14/2022 12:16 PM HEMOGLOBIN A1C - [facility] 6.9 (H) 03/06/2022 09:49 AM HEMOGLOBIN A1C - [facility] 6.8 (H) 07/24/2020 10:20 AM HEMOGLOBIN A1C - [facility] 6.7 (H) 04/22/2020 08:57 AM HEMOGLOBIN A1C - [facility] 7.3 (H) 01/04/2020 09:20 AM HEMOGLOBIN A1C POCT - [facility] 7.1 (H) 05/31/2023 10:31 AM HEMOGLOBIN A1C POCT - [facility] 7.6 (H) 12/10/2022 10:13 AM HEMOGLOBIN A1C POCT - [facility] 7.5 (H) 09/07/2022 09:55 AM HEMOGLOBIN A1C, DBS - [facility] 7.7 (H) 03/31/2023 12:59 PM BP Readings from Last 1 Encounters: 08/23/23 140/80 Reviewed Health Maintenance below: Health Maintenance Topic Date Due *COPD SEVERITY VERIFIED BY PFT Never done COVID-19 Vaccine ( season) 2023 Diabetic Foot Exam 08/07/2023 Mammogram 09/12/2023 HbA1c 11/29/2023 COLONOSCOPY-ANNUAL AGES 18-100 12/18/2023 Mamm already scheduled order placed Colon already scheduled Awv my g Care Gap Outreach Action Taken: Viadeot message sent documented in this encounter Plan of Treatment Upcoming Encounters Date Type Department Care Team (Late st Contact Info) Description 08/25/2023 9:30 AM EST Office Visit Orthopaedics [facility] [address] [place] [address] Javon Bunn, 132 [facility] [place] [address] Primary osteoarthritis of both knees* 09/14/2023 9:00 AM EDT Imaging Radiology [facility] 1st [facility] [address] [place] [address] 09/28/2023 9:30 AM EDT Office Visit Cardiology, [facility] [address] [place] [address] [place], [address] [place] [address] 09/30/2023 10:10 AM EDT Office Visit Pharmacy, [facility] [place] [address] [place] [address] Pharmacist1, [facility] [address] [place] [address] 09/30/2023 10:40 AM EDT Office Visit General Internal Medicine [facility] [place] [address] [place] [address] Orlin Castro MD 200 [facility] [place], [place] [address] 10/05/2023 3:30 PM EDT Office Visit Dermatology [facility] [address] [facility] [place] [address] Ling Capellan PA-C [address] [place] [address] 11/24/2023 8:45 AM EDT Office Visit Orthopaedics [facility] [address] [facility] [place] [address] Javon Bunn DO [address] [facility] [place] [address] 11/30/2023 9:30 AM EDT Imaging Radiology [facility] 1st [facility] [address] [facility] [place] [address] 12/15/2023 9:00 AM EDT Procedure Only Endoscopy, [facility] [address] [place] [address] Raymond Campbell MD [address] [facility] [place] [address] 02/17/2024 7:50 AM EDT Office Visit Optometry, [place] [address] [place] [address] Ari Staley, [place], MAGGY [address] [place] [address] 03/27/2024 8:40 AM EDT Office Visit Endocrinology, [place] [address] [place] [address] Nhung Monzon MD [address] [place] [address] 05/08/2024 11:20 AM EST Office Visit Nephrology, [facility] [address] [place] [address] Galindo Jean MD 200 [facility] [place] [address] Scheduled Orders Name Type Priority Associated Diagnoses Orde r Schedule MAMMOGRAM SCREENING VINEET BILATERAL Medical Imaging Routine Encounter for screening mammogram for malignant neoplasm of breast Expected: 08/25/2023, Expires: 09/22/2024 Health Maintenance Due Date Last Done Comments [...] Screening 06/22/2024 06/22/2023 CKD HGB USE SMARTSET 90760 08/03/202408/03, 08/03/2023, 07/02/2023, Additional history exists CKD PHOS USE SMARTSET 52913 08/23/202408/05, 08/03/2023, 07/02/2023, Additional history exists O2 [...] this encounter Medical Devices Implanted Type Area Sagger Filler Device Identifier Shelf Expiration Date Model / Serial / Lot Stent Pancreatic Geenen 5fr - [id number] Implanted:Q[place] 1 [place]17[place] [facility] [place] [id number] / / [id number] Stent 10fr 7cm - [id number] Implanted:Qty: 1 on 06/17/2010 [place] [facility] [place] RADHA [place] 01/15/2013 [id number] / / [id number] Description:pancreas documented as of this encounter Visit Diagnoses Diagnosis Primary osteoarthritis of both knees- Primary Primary localized osteoarthrosis, lower leg Encounter for screening mammogram for malignant neoplasm of breast- Primary Other screening mammogram documented in this encounter Advance Directives Latest [...] the patient have Health Care Power of Wallpaper Installer? No Care Teams Family Law Paralegal Relationship Specialty Start Date End Date Orlin Castro MD [address] [facility] [place] [address] PCP - General Internal Medicine 04/27/19 documented as of this encounter
--- OUTSIDE RECORDS SUMMARY | 2024-01-23 13:03 | External Medical Summary | Summary of Care ---
Author Name Unknown Organization [facility] Address [address] [place] [address] Phone [phone] Care Team Providers Care Biology Research Assistant Name Role Phone Orlin Castro MD Primary Care Provider + Reason for Visit * Reason Comments Medication Refill Encounter Details Date Type Department Care Team (Late st Contact Info) Description 09/05/2023 Refill General Internal Medicine [facility] 200 [facility] [place] [id number] Jessica Jean MD [address] [facility] [place] [address] Allergies Active Allergy Reactions Criticality Noted Date Comments Zolpidem Tartrate Psych complications 6 Rosuvastatin 04/05/2020 Elevated lft Hydrochlorothiazide 12/29/2019 brenda Nsaids Other (Please comment) 04/14/2016 Gastric ulcer with anemia documented as of this encounter (statuses as of 09/06/2023) Medications Medication Sig Dispensed Refills Start Date [...] ns:COPD, group B, by GOLD 2017 classification ([facility]) Inhale via nebulizer . Use as directed. 1 Each 1 2 Active Ipratropium-Albute rol 0.5-2.5 (3) MG/3ML Inhalation Solution (Duoneb)Indication s:COPD, group B, by GOLD 2017 classification ([facility]) Inhale via nebulizer 3 mL [...] DAY. 90 Tablet 3 3 09/28/19 24 Active Cyclobenzaprine HCl 10 MG Oral Tablet (Flexeril)Indicati ons:Spasm of muscle TAKE ONE TABLET BY MOUTH AT BEDTIME NEEDED FOR MUSCLE SPASMS. 90 Tablet 3 3 10/18/19 24 Active Carvedilol 25 MG Oral Tablet (Coreg)Indications :HTN, goal below 140/90 TAKE ONE TABLET BY MOUTH 2 TIMES A DAY WITH MORNING AND EVENING MEALS 180 Tablet 3 3 09/11/19 24 Active Tiotropium [place] Monohydrate 2.5 MCG/ACT Inhalation Aerosol Solution (Spiriva Respimat)Indicatio ns:COPD, group B, by GOLD 2017 classification ([facility]) INHALE 2 PUFFS BY MOUTH IN THE MORNING 12 g 3 3 10/06/19 24 Active Additional Information Patient taking differently:2 Puff Inhalation Daily(AM),Hasn't started it yet, Reported on 08/12/2022 PaulJaylanstephon Rangelmiguel In Vitro Strip (Glucose Blood)Indications: Type 2 diabetes mellitus with hemoglobin A1c goal of less than 7.0% ([facility]) Use to test blood glucose [...] hemoglobin A1c goal of less than 7.0% ([facility]) Take 1 Tablet by mouth [...] 90 Tablet 3 4 09/06/19 25 Active Pantoprazole Sodium 40 MG Oral Tablet Delayed Release (Protonix) TAKE ONE TABLET BY MOUTH EVERY DAY 90 Tablet 3 3 09/05/19 24 Discontinu ed(Refill) documented as of this encounter (statuses as of 09/06/2023) Active Problems Problem Noted Date Diagnosed Date [...] as of this encounter (statuses as of 09/06/2023) Resolved Problems Problem Noted Date Diagnosed Date [...] as of this encounter (statuses as of 09/06/2023) Immunizations Name Administration Dates Next Due COVID-19 [...] encounter Miscellaneous Notes * Telephone Encounter - Joel Mills RPh - 09/06/2023 5:52 PM ESTSigned Prescriptions: Disp Refills Pantoprazole Sodium 40 MG Oral Tablet Sejal*90 Tab*3 Sig: TAKE ONE TABLET BY MOUTH EVERY DAYAuthorizing Provider: ORLIN CASTRO User: JOEL MILLS-- documented in this encounter Plan of Treatment Upcoming Encounters Date Type Department Care Team (Late st Contact Info) Description 09/14/2023 9:00 AM EDT Imaging Radiology [facility] [address] [place] [address] 09/28/2023 9:30 AM EDT Office Visit Cardiology, [address] [place] [address] [place], [address] [place] [address] 09/30/2023 10:10 AM EDT Office Visit Pharmacy, [facility] [address] [place] [address] Pharmacist1, [facility] [address] [place] [address] 09/30/2023 10:40 AM EDT Office Visit General Internal Medicine [facility] [address] [facility] [place] [address] Orlin aCstro MD [address] [facility] [place] [address] 10/05/2023 3:30 PM EDT Office Visit Dermatology [facility] [address] [place] [address] Ling Capellan PA-C [address] [facility] [place] [address] 11/24/2023 8:45 AM EDT Office Visit Orthopaedics [facility] [address] [place] [address] Javon Bunn, [address] [place] [address] 11/30/2023 9:30 AM EDT Imaging Radiology [facility] 1st [facility] [address] [place] [address] 12/15/2023 9:00 AM EDT Procedure Only Endoscopy, [facility] [address] [place] [address] Raymond Campbell MD [address] [place] [address] 02/17/2024 7:50 AM EDT Office Visit Optometry, [place] [address] [place] [address] Ari Staley, [place], OD [address] [place] [address] 03/27/2024 8:40 AM EDT Office Visit Endocrinology, [place] [address] [place] [address] Nhung Monzon MD [address] [place] [address] 05/08/2024 11:20 AM EST Office Visit Nephrology, [facility] 200 [place] [address] Galindo Jean MD [address] [place] [address] Health Maintenance Due Date Last Done Comments [...] Screening 06/22/2024 06/22/2023 CKD HGB USE SMARTSET 82648 08/03/202408/03, 08/03/2023, 07/02/2023, Additional history exists CKD PHOS USE SMARTSET 70499 08/23/202408/05, 08/03/2023, 07/02/2023, Additional history exists O2 [...] this encounter Medical Devices Implanted Type Area Operations And Maintenance Specialist Device Identifier Shelf Expiration Date Model / Serial / Lot Stent Pancreatic Geenen 5fr - [id number] Implanted:Qty: 1 on 06/17/2010 [place] [facility] [place] [employer] 03/18/2013 [id number] / / [id number] Stent 10fr 7cm - [id number] Implanted:Qty: 1 on 06/17/2010 [place] [facility] [place] RADHA [place] 01/15/2013 [id number] / / [id number] Description:pancreas documented as of this encounter Advance [...] the patient have Health Care Power of Tnt Line Supervisor? No Care Teams Biology Research Assistant Relationship Specialty Start Date End Date Orlin Castro MD [address] [place] [id number] PCP - General Internal Medicine 04/27/19 documented as of this encounter
--- OUTSIDE RECORDS SUMMARY | 2024-01-23 13:03 | External Medical Summary | Summary of Care ---
Author Name Unknown Organization [facility] Address [address] [place] [address] Phone [phone] Care Team Providers Care Fitness Club Manager Name Role Phone Orlin Castro MD Primary Care Provider + Reason for Visit * Reason Onset Date Comments Test Results 08/24/2023 Encounter Details Date Type Department Care Team (Late st Contact Info) Description 08/24/2023 Telephone General Internal Medicine [facility] 200 [facility] [place] [address] Orlin Castro MD [address] [place] [facility] [place] [address] Test Results Allergies Active Allergy Reactions Criticality Noted Date Comments Zolpidem Tartrate Psych complications 6 Rosuvastatin 04/05/2020 Elevated lft Hydrochlorothiazide 12/29/2019 brenda Nsaids Other (Please comment) 04/14/2016 Gastric ulcer with anemia documented as of this encounter (statuses as of 08/24/2023) Medications Medication Sig Dispensed Refills Start Date End Date Status ONETOUCH [facility]ICA [facility] Use to test blood sugar 4 times daily dx e11.9 400 Each 3 03/09/2019 Active Misc. Devices [facility] Tracheostomy Care Kit #4601 1 Each 0 10/02/2019 Active Vitamin B-12 1000 MCG Oral Tablet Take 1 Tab by mouth daily. 90 Tab 3 03/07/2021 Active [employer].comTouch Verio Flex System w/Device Kit Use as [...] Tablet 3 09/04/2022 09/11/19 24 Active Tiotropium [place] Monohydrate 2.5 MCG/ACT Inhalation Aerosol Solution (Spiriva Respimat)Indication s:COPD, group B, by GOLD 2017 classification ([facility]) INHALE 2 PUFFS BY MOUTH IN THE MORNING 12 g 3 08/07/2022 10/06/19 24 Active Additional Information Patient taking differently:2 Puff Inhalation Daily(AM),Hasn't started it yet, Reported on 08/12/2022 [employer] In Vitro Strip (Glucose Blood)Indications:T ype 2 diabetes mellitus with hemoglobin A1c goal of less than 7.0% ([facility]) Use to test blood glucose 4 [...] hemoglobin A1c goal of less than 7.0% ([facility]) Take 1 Tablet by mouth 2 [...] as of this encounter (statuses as of 08/24/2023) Active Problems Problem Noted Date Diagnosed Date [...] as of this encounter (statuses as of 08/24/2023) Resolved Problems Problem Noted Date Diagnosed Date [...] as of this encounter (statuses as of 08/24/2023) Immunizations Name Administration Dates Next Due COVID-19 [...] encounter Miscellaneous Notes * Telephone Encounter - Tonie Green MED ASSIST - 08/24/2023 9:52 AM EST Called patient, left message to return call. * Telephone Encounter - Tonie Green MED ASSIST - 08/24/2023 9:51 AM EST ----- Message from Orlin Castro MD sent at 08/24/2023 9:50 AM EST ----- Lft high, but improving, recheck 3 month to follow documented in this encounter Plan of Treatment Upcoming Encounters Date Type Department Care Team (Late st Contact Info) Description 08/25/2023 9:30 AM EST Office Visit Orthopaedics [facility] [address] [place] [address] Javon Bunn, DO [address] [place] [address] 09/14/2023 9:00 AM EDT Imaging Radiology [address] [facility] [place] [address] 09/28/2023 9:30 AM EDT Office Visit Cardiology, [facility] [place] [address] Rancho Gordon DO [address] [place] [address] 09/30/2023 10:10 AM EDT Office Visit Pharmacy, [facility] 200 [facility] [place] [address] Pharmacist1, [facility] 200 [facility] [place] [address] 09/30/2023 10:40 AM EDT Office Visit General Internal Medicine [facility] [address] [place] [address] Orlin Castro MD 200 [facility] [place] [address] 10/05/2023 3:30 PM EDT Office Visit Dermatology [facility] [address] [place] [address] Ling Capellan PA-C [address] [place] [address] 11/30/2023 9:30 AM EDT Imaging Radiology [address] [facility] [place] [address] 12/15/2023 9:00 AM EDT Procedure Only Endoscopy, [facility] 132 [facility] [place] [address] Raymond Campbell MD 132 [facility] [place] [address] 02/17/2024 7:50 AM EDT Office Visit Optometry, [address] [address] Ari Staley, Rancho Bullard OD 16 [place] [address] 03/27/2024 8:40 AM EDT Office Visit Endocrinology, [place] [address] [place] [address] Nhung Monzon MD [address] [place] [address] 05/08/2024 11:20 AM EST Office Visit Nephrology, [facility] 200 [facility] [place] [address] Galindo Jean MD 200 [facility] [place] [address] Health Maintenance Due Date Last Done Comments [...] Screening 06/22/2024 06/22/2023 CKD HGB USE SMARTSET 62629 08/03/202408/03, 08/03/2023, 07/02/2023, Additional history exists CKD PHOS USE SMARTSET 58321 08/23/202408/05, 08/03/2023, 07/02/2023, Additional history exists O2 [...] this encounter Medical Devices Implanted Type Area Space Control Agent Device Identifier Shelf Expiration Date Model / Serial / Lot Stent Pancreatic Jonathan 5fr - [id number] Implanted:Qty: 1 on 06/17/2010 at OR [facility] [employer] 03/18/2013 [id number] / / [id number] Stent 10fr 7cm - [id number] Implanted:Qty: 1 on 06/17/2010 at OR [facility] NAN : RADHA MON[place]NA 01/15/2013 [id number] / / [id number] Description:pancreas documented as of this encounter Advance [...] the patient have Health Care Power of Hand Loom Weaver? No Care Teams Fitness Club Manager Relationship Specialty Start Date End Date Orlin Castro MD [address] [place] [address] PCP - General Internal Medicine 04/27/19 documented as of this encounter
--- OUTSIDE RECORDS SUMMARY | 2024-01-23 13:03 | External Medical Summary | Summary of Care ---
Author Name Unknown Organization [facility] Address [address] [place] [address] Phone [phone] Care Team Providers Care Machine Welder Name Role Phone Orlin Castro MD Primary Care Provider + Reason for Visit * Reason Onset Date Comments Test Results 08/24/2023 Encounter Details Date Type Department Care Team (Late st Contact Info) Description 08/24/2023 Telephone General Internal Medicine [facility] 200 [facility] [place] [address] Orlin Castro MD [address] [place] [facility] [place] [address] Test Results Allergies Active Allergy Reactions Criticality Noted Date Comments Zolpidem Tartrate Psych complications 6 Rosuvastatin 04/05/2020 Elevated lft Hydrochlorothiazide 12/29/2019 brenda Nsaids Other (Please comment) 04/14/2016 Gastric ulcer with anemia documented as of this encounter (statuses as of 08/24/2023) Medications Medication Sig Dispensed Refills Start Date End Date Status ONETOUCH DELICA [facility] Use to test blood sugar 4 times daily dx e11.9 400 Each 3 03/09/2019 [address] Misc. Devices [facility] Tracheostomy Care Kit #4601 1 Each 0 10/02/2019 Active Vitamin B-12 1000 MCG Oral Tablet Take 1 Tab by mouth daily. 90 Tab 3 03/07/2021 Active [employer]ILLTouch Verio Flex System w/Device Kit Use as [...] Tablet 3 09/04/2022 09/11/19 24 Active Tiotropium [place] Monohydrate 2.5 MCG/ACT Inhalation Aerosol Solution (Spiriva Respimat)Indication s:COPD, group B, by GOLD 2017 classification ([facility]) INHALE 2 PUFFS BY MOUTH IN THE MORNING 12 g 3 08/07/2022 10/06/19 24 Active Additional Information Patient taking differently:2 Puff Inhalation Daily(AM),Hasn't started it yet, Reported on 08/12/2022 [facility] In Vitro Strip (Glucose Blood)Indications:T ype 2 [...] of less than 7.0% ([facility]) Take 1 Tablet by mouth [...] Telephone Encounter - Kyleigh Gilliam LPN - 08/24/2023 4:49 PM EST Patient returned call. Informed of message. Verbalized understanding. * Telephone Encounter - Tonie Green MED [...] 08/25/2023 9:30 AM EST Office Visit Orthopaedics [address] [place] [address] Javon Bunn, DO [address] [place] [address] 09/14/2023 9:00 AM EDT Imaging Radiology [address] [place] [address] 09/28/2023 9:30 AM EDT Office Visit Cardiology, [facility] [address] [place] [address] Rancho Gordon, DO [address] [place] [address] 09/30/2023 10:10 AM EDT Office Visit Pharmacy, [facility] 200 [facility] [place] [address] Pharmacist1, [facility] 200 [facility] [place] [address] 09/30/2023 10:40 AM EDT Office Visit General Internal Medicine [facility] 200 [facility] [place] [address] Orlin Castro MD 200 [facility] [place] [address] 10/05/2023 3:30 PM EDT Office Visit Dermatology [facility] 200 [facility] [place] [address] Ling Capellan, PA-C [address] [facility] [address] 11/30/2023 9:30 AM EDT Imaging Radiology [address] [place] [address] 12/15/2023 9:00 AM EDT Procedure Only Endoscopy, [facility] [address] [place] [address] Raymond Campbell MD [address] [place] [address] 02/17/2024 7:50 AM EDT Office Visit Optometry, [place] [address] [place] [address] Ari Staley Rancho Bullard, OD 16 [place] [address] 03/27/2024 8:40 AM EDT Office Visit Endocrinology, [place] [address] [place], [place] [address] Nhung Monzon MD [address] [place], [place] [address] 05/08/2024 11:20 AM EST Office Visit Nephrology, [facility] [address] [place] [address] Galindo Jean MD [address] [place] [address] Health Maintenance Due Date Last Done Comments [...] Screening 06/22/2024 06/22/2023 CKD HGB USE SMARTSET 25231 08/03/202408/03, 08/03/2023, 07/02/2023, Additional history exists CKD PHOS USE SMARTSET 83981 08/23/202408/05, 08/03/2023, 07/02/2023, Additional history exists O2 [...] this encounter Medical Devices Implanted Type Area Wagon Drill Operator Device Identifier Shelf Expiration Date Model / Serial / Lot Stent Pancreatic Aldonen 5fr - [id number] Implanted:Qty: 1 on 06/17/2010 at OR [facility] [employer] 03/18/2013 [id number] / / [id number] Stent 10fr 7cm - [id number] Implanted:Qty: 1 on 06/17/2010 at [place] [facility] : RADHA MON[place]NA 01/15/2013 [id number] / / [id number] Description:pancreas documented as of this encounter Advance [...] the patient have Health Care Power of Events Traffic Controller? No Care Teams Machine Welder Relationship Specialty Start Date End Date Orlin Castro MD 200 [facility] [place] [address] PCP - General Internal Medicine 04/27/19 documented as of this encounter
--- OUTSIDE RECORDS SUMMARY | 2024-01-23 13:03 | External Medical Summary | Summary of Care ---
Author Name Unknown Organization [facility] Address [address] [facility] [place] [address] Phone [phone] Care Team Providers Care Marketing Copywriter Name Role Phone Orlin Castro MD Primary Care Provider + Reason for Visit * Reason Comments Medication Refill Encounter Details Date Type Department Care Team (Late st Contact Info) Description 09/06/2023 Refill General Internal Medicine [facility] [address] [facility] [place] [address] Orlin Castro MD 200 [facility] [place] [address] HTN, goal below 140/90 Allergies Active Allergy Reactions Criticality Noted Date Comments Zolpidem Tartrate Psych complications 6 Rosuvastatin 04/05/2020 Elevated lft Hydrochlorothiazide 12/29/2019 brenda Nsaids Other (Please comment) 04/14/2016 Gastric ulcer with anemia documented as of this encounter (statuses as of 09/07/2023) Medications Medication Sig Dispensed Refills Start Date [...] B, by GOLD 2017 classification ([facility]) Inhale via nebulizer . Use as directed. 1 Each 1 2 Active Ipratropium-[place] rol 0.5-2.5 (3) MG/3ML Inhalation Solution (Duoneb)Indication s:COPD, group B, by GOLD 2017 classification ([facility]) Inhale via nebulizer 3 mL [...] Tablet 3 3 10/18/19 24 Active Tiotropium [place] Monohydrate 2.5 MCG/ACT Inhalation Aerosol Solution (Spiriva Respimat)Indicatio ns:COPD, group B, by GOLD 2017 classification ([facility]) INHALE 2 PUFFS BY MOUTH [...] 180 Tablet 3 4 09/07/19 25 Active Carvedilol 25 MG Oral Tablet (Coreg)Indications :HTN, goal below 140/90 TAKE ONE TABLET BY MOUTH 2 TIMES A DAY WITH MORNING AND EVENING MEALS 180 Tablet 3 3 09/06/19 24 Discontinu ed(Refill) documented as of this encounter (statuses as of 09/07/2023) Active Problems Problem Noted Date Diagnosed Date [...] as of this encounter (statuses as of 09/07/2023) Resolved Problems Problem Noted Date Diagnosed Date [...] as of this encounter (statuses as of 09/07/2023) Immunizations Name Administration Dates Next Due COVID-19 [...] encounter Miscellaneous Notes * Telephone Encounter - Ravin Calix RPh - 09/07/2023 3:10 PM ESTSigned Prescriptions: Disp Refills Carvedilol 25 MG Oral Tablet (Coreg) 180 Ta*3 Sig: TAKE ONE TABLET BY MOUTH 2 TIMES A DAY WITH MORNING AND EVENING MEALSAuthorizing Provider: ORLIN CASTRO User: RAVIN CALIX documented in this encounter Plan of Treatment Upcoming Encounters Date Type Department Care Team (Late st Contact Info) Description 09/14/2023 9:00 AM EDT Imaging Radiology [address] [place] [address] 09/28/2023 9:30 AM EDT Office Visit Cardiology, [facility] [address] [place] [address] Rancho Gordon, DO [address] [place] [address] 09/30/2023 10:10 AM EDT Office Visit Pharmacy, [facility] [address] [place] [address] Pharmacist1, [facility] [address] [place] [address] 09/30/2023 10:40 AM EDT Office Visit General Internal Medicine [facility] [address] [place] [address] Orlin Castro MD [address] [facility] [place] [address] 10/05/2023 3:30 PM EDT Office Visit Dermatology [facility] [address] [place] [address] Ling Capellan PA-C [address] [facility] [address] 11/24/2023 8:45 AM EDT Office Visit Orthopaedics [facility] [address] [place] [address] Javon Bunn, DO [address] [place] [address] 11/30/2023 9:30 AM EDT Imaging Radiology [facility] 1st [facility] [address] [place] [address] 12/15/2023 9:00 AM EDT Procedure Only Endoscopy, [place] [address] [place] [address] Raymond Campbell MD [address] [place] [address] 02/17/2024 7:50 AM EDT Office Visit Optometry, [place] [address] [place] [address] Ari Staley Rancho Bullard, OD 16 [place] [address] 03/27/2024 8:40 AM EDT Office Visit Endocrinology, [place] [address] [place], [place] [address] Nhung Monzon MD [address], [place] [address] 05/08/2024 11:20 AM EST Office Visit Nephrology, [facility] 200 [place] [address] Galindo Jean MD [address] [place] [address] Health Maintenance Due Date Last Done Comments [...] Screening 06/22/2024 06/22/2023 CKD HGB USE SMARTSET 92238 08/03/202408/03, 08/03/2023, 07/02/2023, Additional history exists CKD PHOS USE SMARTSET 85529 08/23/202408/05, 08/03/2023, 07/02/2023, Additional history exists O2 [...] this encounter Medical Devices Implanted Type Area Bracer Device Identifier Shelf Expiration Date Model / Serial / Lot Stent Pancreatic Kelsin 5fr - [id number] Implanted:Qty: 1 on 06/17/2010 at OR [facility] [employer] 03/18/2013 [id number] / / [id number] Stent 10fr 7cm - [id number] Implanted:Qty: 1 on 06/17/2010 at OR [facility] : RADHA MONTANA 01/15/2013 [id number] / / [id number] Description:pancreas documented as of this encounter Visit Diagnoses Diagnosis HTN, goal below 140/90 Unspecified essential hypertension documented in this [...] the patient have Health Care Power of Pattern Finisher? No Care Teams Marketing Copywriter Relationship Specialty Start Date End Date Orlin Castro MD [address] [facility] [place] [address] PCP - General Internal Medicine 04/27/19 documented as of this encounter
--- OUTSIDE RECORDS SUMMARY | 2024-01-23 13:03 | External Medical Summary | Summary of Care ---
Author Name Unknown Organization [facility] Address [address] [place] [address] Phone [phone] Care Team Providers Care Connection Worker Name Role Phone Orlin Castro MD Primary Care Provider + Reason for Visit * Reason Onset Date Comments Test Results 08/25/2023 Encounter Details Date Type Department Care Team (Late st Contact Info) Description 08/25/2023 Telephone [facility]rology[facility] 200 [facility] [place] [address] Galindo Jean MD [address] [place] [address] Test Results Allergies Active Allergy Reactions Criticality [...] Tablet 3 09/04/2022 09/11/19 24 Active Tiotropium [place] Monohydrate 2.5 MCG/ACT Inhalation Aerosol Solution (Spiriva Respimat)Indication s:COPD, group B, by GOLD 2017 classification ([facility]) INHALE 2 PUFFS BY MOUTH IN THE MORNING 12 g 3 08/07/2022 10/06/19 24 Active Additional Information Patient taking differently:2 Puff Inhalation Daily(AM),Hasn't started it yet, Reported on 08/12/2022 [employer] In Vitro Strip (Glucose Blood)Indications:T ype 2 [...] than 7.0% ([facility]) Take 1 Tablet by mouth 2 [...] encounter Miscellaneous Notes * Telephone Encounter - Raiza Gonzales RN - 08/25/2023 10:53 AM EST LMAM and message sent via [facility] regarding lab results. * Telephone Encounter - Raiza Gonzales RN - 08/25/2023 10:46 AM EST ----- Message from Galindo Jean MD sent at 08/24/2023 10:23 AM EST ----- K is normal now. No need of K supplement. LFT also better. Vit D is slightly low--Can take 1000 units daily. documented in this encounter Plan of Treatment Upcoming Encounters Date Type Department Care Team (Late st Contact Info) Description 09/14/2023 9:00 AM EDT Imaging Radiology [facility]st [facility] 132 [facility] [place] [address] 09/28/2023 9:30 AM EDT Office Visit Cardiology, [facility] 132 [facility] [place] [address] Rancho Gordon, DO [address] [place] [address] 09/30/2023 10:10 AM EDT Office Visit Pharmacy, [facility] [address] [place] [address] Pharmacist1, [facility] [address] [facility] [place] [address] 09/30/2023 10:40 AM EDT Office Visit General Internal Medicine [facility] 200 [facility] [place] [address] Orlin Castro MD 200 [facility] [place] [address] 10/05/2023 3:30 PM EDT Office Visit Dermatology [facility] 200 [facility] [place] [address] Ling Capellan, [place]C [address] [facility] [place] [address] 11/24/2023 8:45 AM EDT Office Visit Orthopaedics [facility] [place] [address] Javon Bunn DO [address] [place] [address] 11/30/2023 9:30 AM EDT Imaging Radiology [facility] 1st [facility] [address] [place] [address] 12/15/2023 9:00 AM EDT Procedure Only Endoscopy, [facility] [address] [place] [address] Raymond Campbell MD [address] [place] [address] 02/17/2024 7:50 AM EDT Office Visit Optometry, [address] [place] [address] Rancho Chapman Jr., OD [address] [place] [address] 03/27/2024 8:40 AM EDT Office Visit Endocrinology, [place] [address] [place] [address] Nhung Monzon MD [address] [place], [place] [address] 05/08/2024 11:20 AM EST Office Visit Nephrology, [facility] 200 [facility] [place] [address] Galindo Jean MD 200 [facility] [place] [address] Health Maintenance Due Date Last Done Comments [...] Screening 06/22/2024 06/22/2023 CKD HGB USE SMARTSET 08833 08/03/202408/03, 08/03/2023, 07/02/2023, Additional history exists CKD PHOS USE SMARTSET 72290 08/23/202408/05, 08/03/2023, 07/02/2023, Additional history exists O2 [...] this encounter Medical Devices Implanted Type Area Seismograph Supervisor Device Identifier Shelf Expiration Date Model / Serial / Lot Stent Pancreatic Geenen 5fr - [id number] Implanted:Qty: 1 on 06/17/2010 at [place] [facility] [employer] 03/18/2013 [id number] / / [id number] Stent 10fr 7cm - [id number] Implanted:Qty: 1 on 06/17/2010 at [facility] : RADHA [place] 01/15/2013 [id number] / / [id number] Description:pancreas documented as of this encounter Advance [...] the patient have Health Care Power of Apparatus Engineering Technologist? No Care Teams Connection Worker Relationship Specialty Start Date End Date Orlin Castro MD [address] [facility] [place] [address] PCP - General Internal Medicine 04/27/19 documented as of this encounter
--- OUTSIDE RECORDS SUMMARY | 2024-01-23 13:03 | External Medical Summary | Summary of Care ---
Author Name Unknown Organization [facility] Address [address] [facility] [place] [address] Phone [phone] Care Team Providers Care Baker Pastry Name Role Phone Orlin Castro MD Primary Care Provider + Reason for Visit * Reason Comments Knee Pain bilateral Encounter Details Date Type Department Care Team (Latest Contact Info) Description 08/25/2023 9:30 AM EST Office Visit [facility] [address] [place] [address] Javon Bunn DO [address] [place] [address] Primary osteoarthritis of both knees* Allergies Active [...] Tablet 3 09/04/2022 09/11/19 24 Active Tiotropium Langley Monohydrate 2.5 MCG/ACT Inhalation Aerosol Solution (Spiriva Respimat)Indication s:COPD, group B, by GOLD 2017 classification ([facility]) INHALE 2 PUFFS BY MOUTH IN THE MORNING 12 g 3 08/07/2022 10/06/19 24 Active Additional Information Patient taking differently:2 Puff Inhalation Daily(AM),Hasn't started it yet, Reported on 08/12/2022 [employer] In Vitro Strip (Glucose Blood)Indications:T ype 2 diabetes mellitus with hemoglobin A1c goal of less than 7.0% ([facility]) Use to test blood glucose 4 times [...] - 08/25/2023 9:30 AM EST Mallory Soto [id number] INJECTION NOTE Mallory Soto is a 67 year old female who presents to [facility] for Bilateral knee. injections [...] GUIDE Javon Bunn DO, MBA, FAAFP, RMSK [facility] HepatologistOnline Trader Primary Care Sports Medicine Team Physician [facility] Office locations: Orthopaedics [address] [address] [address] [place] [phone] Procedure note (knee injection), bilateral : Time [...] Upcoming Encounters Date Type Department Care Team ([facility] st Contact Info) Description 09/14/2023 9:00 AM EDT Imaging Radiology [facility] [address] [place] [address] 09/28/2023 9:30 AM EDT Office Visit Cardiology, [address] [place] [address] Rancho Gordon DO 132 [facility] [place] [address] 09/30/2023 10:10 AM EDT Office Visit Pharmacy, [facility] [address] [place] [address] Pharmacist1, [facility] [address] [place] [address] 09/30/2023 10:40 AM EDT Office Visit General Internal Medicine [facility] [address] [place] [address] Orlin Castro MD [address] [facility] [address] 10/05/2023 3:30 PM EDT Office Visit Dermatology [facility] [address] [place] [address] Ling Capellan PA-Han [address] [place] [address] 11/30/2023 9:30 AM EDT Imaging Radiology [address] 132 [facility] [place] [address] 12/15/2023 9:00 AM EDT Procedure Only Endoscopy, [facility] [address] [place] [address] Raymond Campbell MD 132 [facility] [place] [address] 02/17/2024 7:50 AM EDT Office Visit Optometry, [facility] [address] [place] [address] Rancho Chapman Jr., OD [address] [place] [address] 03/27/2024 8:40 AM EDT Office Visit Endocrinology, [facility] [address] [place] [address] Nhung Monzon MD [address] [place] [address] 05/08/2024 11:20 AM EST Office Visit Nephrology, [facility] 200 [facility] [place] [address] Galindo Jean MD 200 [facility] [place] [address] Scheduled Orders Name Type Priority Associated Diagnoses [...] Screening 06/22/2024 06/22/2023 CKD HGB USE SMARTSET 25068 08/03/202408/03, 08/03/2023, 07/02/2023, Additional history exists CKD PHOS USE SMARTSET 57810 08/23/202408/05, 08/03/2023, 07/02/2023, Additional history exists O2 ASSESSMENT COMPLETED IN PAST YEAR FOR COPD 08/23/2024 08/23/2023 DXA Scan 05/12/2026 05/12/2022, 05/12/2022 Lipid Panel 10/27/2027 10/26/2022, 09/08/2021, 05/10/2021, [...] this encounter Medical Devices Implanted Type Area Item Repair Manager Device Identifier Shelf Expiration Date Model / Serial / Lot Stent Pancreatic Jonathan 5fr - [id number] Implanted:Qty: 1 on 06/17/2010 at OR [facility] 03/18/2013 [id number] / / [id number] Stent 10fr 7cm - [id number] Implanted:Qty: 1 on 06/17/2010 at [facility] : RADHA [place] 01/15/2013 [id number] / / [id number] Description:pancreas documented as of this encounter Visit [...] the patient have Health Care Power of Account Supervisor? No Care Teams Baker Pastry Relationship Specialty Start Date End Date Orlin Castro MD 200 [facility] [place] [address] PCP - General Internal Medicine 04/27/19 documented as of this encounter
--- OUTSIDE RECORDS SUMMARY | 2024-01-23 13:03 | External Medical Summary | Summary of Care ---
Author Name Unknown Organization [facility] Address [address] [facility] [place] [address] Phone [phone] Care Team Providers Care Geotechnical Department Manager Name Role Phone Orlin Castro MD Primary Care Provider + Reason for Visit * Reason Comments Knee Pain bilateral Encounter Details Date Type Department Care Team (Latest Contact Info) Description 08/25/2023 9:30 AM EST Office Visit Orthopaedics [facility] [address] [place] [address] Javon Bunn DO [address] [place] [address] Primary osteoarthritis of both knees* Allergies Active [...] Tablet 3 09/04/2022 09/11/19 24 Active Tiotropium [place] Monohydrate 2.5 MCG/ACT Inhalation Aerosol Solution (Spiriva Respimat)Indication s:COPD, group B, by GOLD 2017 classification ([facility]) INHALE 2 PUFFS BY MOUTH IN THE MORNING 12 g 3 08/07/2022 10/06/19 24 Active Additional Information Patient taking differently:2 Puff Inhalation Daily(AM),Hasn't started it yet, Reported on 08/12/2022 [employer] In Vitro Strip (Glucose Blood)Indications:T ype 2 [...] than 7.0% ([facility]) Take 1 Tablet by mouth [...] - 08/25/2023 9:30 AM EST Mallory Soto [id number] INJECTION NOTE Mallory Soto is a 67 year old female who presents to [facility] for Bilateral knee. [...] GUIDE Javon Bunn DO, MBA, FAAFP, RMSK [facility] Sports CmoTerrazzo Layer Helper Primary Care Sports Medicine Team Physician [facility] Office locations: Orthopaedics [address] [address] [place] [phone] Procedure note (knee injection), bilateral : Time [...] resolve within 24 hours. DO Mallory [place] [id number] documented in this encounter Nursing Notes * Kyleigh Owen MED ASSIST - 08/25/2023 8:48 AM EST Here for bilateral knee inj. documented in this encounter Plan of Treatment Upcoming Encounters Date Type Department Care Team ([facility] Contact Info) Description 09/14/2023 9:00 AM EDT Imaging Radiology [facility] 1st Floor, [address] [address] 09/28/2023 9:30 AM EDT Office Visit Cardiology, [facility] [address] [place] [address] Rancho Gordon, DO [address] [place] [address] 09/30/2023 10:10 AM EDT Office Visit Pharmacy, [facility] [address] [place] [address] Pharmacist1, [facility] [address] [facility] [place] [address] 09/30/2023 10:40 AM EDT Office Visit General Internal Medicine [facility] 200 [facility] [place] [address] Orlin Castro MD 200 [facility] [place] [address] 10/05/2023 3:30 PM EDT Office Visit Dermatology [facility] [address] [place] [address] Ling Capellan PA-C [address] [place] [address] 11/24/2023 8:45 AM EDT Office Visit Orthopaedics [facility] [address] [place] [address] Javon Bunn, DO [address] [place] [address] 11/30/2023 9:30 AM EDT Imaging Radiology [facility] 1st [facility] [address] [place] [address] 12/15/2023 9:00 AM EDT Procedure Only Endoscopy, [facility] [address] [place] [address] Raymond Campbell MD [address] [place] [address] 02/17/2024 7:50 AM EDT Office Visit Optometry, [place] [address] [place] [address] Rancho Chapman Jr., 16 [place] [address] 03/27/2024 8:40 AM EDT Office Visit Endocrinology, [place] [address] [place] [address] Nhung Monzon MD [address] [place] [address] 05/08/2024 11:20 AM EST Office Visit Nephrology, [facility] 200 [facility] [place] [address] Galindo Jean MD 200 [facility] [place] [address] Scheduled Orders Name Type Priority Associated Diagnoses [...] Screening 06/22/2024 06/22/2023 CKD HGB USE SMARTSET 67975 08/03/202408/03, 08/03/2023, 07/02/2023, Additional history exists CKD PHOS USE SMARTSET 67111 08/23/202408/05, 08/03/2023, 07/02/2023, Additional history exists O2 [...] this encounter Medical Devices Implanted Type Area Conference Center Manager Device Identifier Shelf Expiration Date Model / Serial / Lot Stent Pancreatic K[place]in 5fr - [id number] Implanted:Qty: 1 on 06/17/2010 at OR [facility] 03/18/2013 [id number] / / [id number] Stent 10fr 7cm - [id number] Implanted:Qty: 1 on 06/17/2010 at [place] [facility] : RADHA NAN 01/15/2013 [id number] / / [id number] Description:pancreas documented as of this encounter Visit [...] the patient have Health Care Power of Farm Service Consultant? No Care Teams Geotechnical Department Manager Relationship Specialty Start Date End Date Orlin Castro MD [address] [place] [address] PCP - General Internal Medicine 04/27/19 documented as of this encounter
--- OUTSIDE RECORDS SUMMARY | 2024-01-23 13:04 | External Medical Summary | Summary of Care ---
Author Name Unknown Organization [facility] Address [address] [facility] [place] [address] Phone [phone] Care Team Providers Care Retail Beauty Specialist Name Role Phone Orlin Castro MD Primary Care Provider + Reason for Visit * Reason Comments Follow Up COPD Encounter Details Date Type Department Care Team (Late st Contact Info) Description 08/23/2023 8:00 AM EST Office Visit Pulmonary Medicine, [facility] [address] [facility] [place] [id number] Perfecto Contreras MD [address] [facility] [place] [phone] Status post laryngectomy*; Pulmonary nodules Allergies Active Allergy Reactions Criticality Noted Date Comments Zolpidem Tartrate Psych complications 6 Rosuvastatin 04/05/2020 Elevated lft Hydrochlorothiazide 12/29/2019 brenda Nsaids Other (Please comment) 04/14/2016 Gastric ulcer with anemia documented as of this encounter (statuses as of 08/23/2023) Medications Medication Sig Dispensed Refills Start Date [...] group B, by GOLD 2017 classification ([facility]) Inhale via nebulizer . Use as directed. 1 Each 1 12/30/2021 Active Ipratropium-Albuter ol 0.5-2.5 (3) MG/3ML Inhalation Solution (Duoneb)Indications :COPD, group B, by GOLD 2017 classification ([facility]) Inhale via nebulizer 3 [...] Tablet 3 09/04/2022 09/11/19 24 Active Tiotropium Jacobson Monohydrate 2.5 MCG/ACT Inhalation Aerosol Solution (Spiriva Respimat)Indication s:COPD, group B, by GOLD 2017 classification ([facility]) INHALE 2 PUFFS BY MOUTH IN THE MORNING 12 g 3 08/07/2022 10/06/19 24 Active Additional Information Patient taking differently:2 Puff Inhalation Daily(AM),Hasn't started it yet, Reported on 08/12/2022 Cross Current In Vitro Strip (Glucose Blood)Indications:T ype 2 diabetes mellitus with hemoglobin A1c goal of less than 7.0% ([facility]) Use to test blood [...] A1c goal of less than 7.0% ([facility]) Take 1 Tablet by mouth [...] as of this encounter (statuses as of 08/23/2023) Active Problems Problem Noted Date Diagnosed Date [...] as of this encounter (statuses as of 08/23/2023) Resolved Problems Problem Noted Date Diagnosed Date [...] as of this encounter (statuses as of 08/23/2023) Immunizations Name Administration Dates Next Due COVID-19 [...] Sign Reading Time Taken Comments Blood Pressure 140/80 08/23/2023 7:49 AM EST Pulse 99 08/23/2023 7:49 AM EST Temperature 36.9 C (98.4 F) 08/23/2023 7:49 AM ES T Respiratory Rate 16 08/23/2023 7:49 AM EST Oxygen Saturation 91% 08/23/2023 7:49 AM EST Inhaled Oxygen Concentration - - Weight 76.2 kg (168 lb) 08/23/2023 7:49 AM EST Height 162.6 cm (5' 4") 08/23/2023 7:49 AM EST Body Mass Index 28.84 08/23/2023 7:49 AM EST documented in this [...] as of this encounter Progress Notes * Perfecto Contreras MD - 08/23/2023 7:58 AM EST 08/23/2023 Pulmonary Medicine, [address] [place] [id number] Mallory Soto 1955 female 67 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 Recent history of bronchitis/COPD exacerbation requiring hospitalization at [facility], treated with antibiotic therapy nebulized bronchodilator therapy and steroid taper, presenting for follow-up pulmonary evaluation. Currently patient describes stable exercise tolerance, current exercise distance more than 2 blocks. Uses phonation device for post laryngectomy status. Since last evaluation, patient describes improved management of secretions with vest therapy and moist gauze coverage for laryngectomy stoma. Compliant with budesonide and albuterol nebulizer therapy. Current bronchodilator therapy includes budesonide and albuterol nebulizer therapy, each used twicedaily. Physical examination shows laryngectomy status with clean stoma, bilateral coarse wheezing, scattered rhonchi, no dullness, regular cardiac rhythm and no evidence of volume overload. We will continue current bronchodilator therapy with budesonide nebulizer 0.5 mg twice daily in addition to albuterol nebulizer. Chest percussion therapy with VEST device will be continued. Patient was advised to continue using moist saline gauze coverage for laryngectomy stoma to minimize excessive dryness of airway secretions. CT scan chest noncontrast to follow-up pulmonary nodule scheduled for November 2023. Results will be followed up when available. Pulmonary clinic follow-up in 1 year to reassess symptoms status, review results of recommended diagnostic workup and discuss further management plan. CT chest from 08/2022 was reviewed and compared with 12/2022. Well-preserved lung parenchyma with laryngectomy status. Left lung nodules subpleural 4 mm, And 5 mm, unchanged c/w 08/2022. Continued radiologic surveillance with follow-up CT chest noncontrast in November [address] chest report from 2010 and chest x-ray report from 2014 have been reviewed. Hyperinflated lung galvin with scattered emphysematous changes and minimal scarring reported. Assessment Left upper lobe nodules, 5 mm subpleural, and 8 mm ground-glass nodule, unchanged Laryngectomy status History of thyroid cancer History of pancreatic cancer History of adenomatous polyps Post Surgical Hypothyroidism COPD, GOLD Group B HLD T2DM GERD Follow Up: Return in about 1 year (around 08/23/2024) for Clinic Visit. | For: Clinic Visit | Check-out note: Left upper lobe nodules, 5 mm subpleural, and 8 mm ground-glass nodule, unchanged Laryngectomy status History of thyroid cancer History of pancreatic cancer History of adenomatous polyps Post Surgical Hypothyroidism COPD, GOLD Group B HLD T2DM GERD Plan: Repeat CT Chest (Scheduled for 11/2023) Saline irrigation soln ([facility]) C/w chest VEST percussion Rx CT Chest repeat in 1 year Clinic f/u in 1 year Perfecto Contreras MD Subjective CC: Chief Complaint Patient presents with Follow Up COPD HPI: Nursing Notes: Lanie Jarvis LPN 08/23/23 0758 Sign at exiting of workspace Chief Complaint Patient presents with Follow Up COPD Interm History/Respiratory Symptoms Cough: clear Hemoptysis: no Sinus Symptoms: no Hospitalizations: Jun 2023 ED Trips: Jun 2023 Triggers: scents, exertion Nocturnal: cough CPAP/BiPAP/O2: no Travel Screening Question 08/23/2023 7:47 AM EST - Filed by Patient Do you have any of the following new or worsening symptoms? None of these Have you recently been in contact with someone who was sick? No / Unsure Myc Visit Accident Related Question Question 08/23/2023 7:47 AM EST - Filed by Patient Is this visit related to an accident? (i.e work, motor vehicle) No Mmrc Cat Question 08/23/2023 7:56 AM EST - Filed by Lanie Jarvis LPN When do you become breathless? (1) I get short of breath when hurrying on level ground How frequently do you cough? (4) Do you have phlegm in your chest? (3) Is your chest tight? (0) - My chest does not feel tight at all How breathless do you become when walking up a hill or steps? (3) How limited are you doing activities at home? (2) How confident are you leaving home with your lung condition? (0) - I am confident leaving my home despite my condition How soundly do you sleep? (4) How much energy do you have? (3) Total MMRC Score (range: 0 - 4) 1 Total CAT Score (range: 0 - 40) 19 Objective Filed Vitals: 08/23/23 0749 BP: 140/80 Pulse: 99 Resp: 16 Temp: 36.9 C (98.4 F) TempSrc: Tympanic SpO2: 91% Weight: 76.2 kg (168 lb) Height: 1.626 m (5' 4") Exam: Const: No signs of acute distress present. Head/Face: Normal on inspection. Eyes: Conjunctivae clear. Pupils equal round and reactive to light. ENMT: Oropharynx: No erythema, exudate or masses. Posterior pharynx is normal. Neck: Supple and symmetric. Resp: Respiratory examination as outlined above CV: Rate is regular. Rhythm is regular. No heart murmur appreciated. Extremities: No edema of the lower limbs bilaterally. Abdomen: Positive bowel sounds. Palpation of the abdomen reveals softness, but no distension or tenderness. No palpable hepatosplenomegaly. Musculo: Walks with a normal gait. Skin: Skin is warm and dry. Neuro: Coordination normal. No involuntary movement. Psych: Patient's attitude is cooperative. Mood is normal. Affect is normal. Tests reviewed with the patient: No imaging results in the last 6 months Available Radiologic data was reviewed by me in PACS. The images were shown to the patient and findings were discussed with the patient. HOME MEDICATIONS: Sucralfate 1 GM Oral Tablet (Carafate) predniSONE 20 MG Oral Tablet (Deltasone) Ferrous Sulfate 325 (65 Fe) MG Oral Tablet (Feosol) Losartan Potassium 100 MG Oral Tablet (Cozaar) Potassium Chloride ER 10 MEQ Oral Capsule Extended Release Repaglinide 1 MG Oral Tablet (Prandin) Repaglinide 2 MG Oral Tablet (Prandin) metFORMIN HCl ER 500 MG Oral Tablet Extended Release 24 Hour (Glucophage XR) Levothyroxine Sodium 200 MCG Oral Tablet (Levoxyl) Language123c. Devices OneTouch VerAC Immune SA In Vitro Strip (Glucose Blood) Ezetimibe 10 MG Oral Tablet (Zetia) Budesonide 0.25 MG/2ML Inhalation Suspension (Pulmicort) Formoterol Fumarate 20 MCG/2ML Inhalation Nebulization Solution Sodium Chloride 7 % Inhalation Nebulization Solution (Hyper-Allen) amLODIPine Besylate 10 MG Oral Tablet (Norvasc) Cyclobenzaprine HCl 10 MG Oral Tablet (Flexeril) Pantoprazole Sodium 40 MG Oral Tablet Delayed Release (Protonix) Carvedilol 25 MG Oral Tablet (Coreg) Breathe Comfort Humidifier Tiotropium Jacobson Monohydrate 2.5 MCG/ACT Inhalation Aerosol Solution (Spiriva Respimat) Compressor Nebulizer Ipratropium-Albuterol 0.5-2.5 (3) MG/3ML Inhalation Solution (Duoneb) Misc. Devices Misc. Devices OneTouch Verio Flex System w/Device Kit Vitamin B-12 1000 MCG Oral Tablet Misc. Devices MISC ONETOUCH DELICA LANCETS FINE MISC ROS: No reported history of Hemoptysis, Hematemesis, Melena No reported history of Dysuria, Hematuria, Flank Pain No reported history of chronic headache, seizures No reported history of Fall or trauma . No reported history of recent change in weight or appetite. 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 FAP---[facility] Family history of familial adenomatous polyposis [...] Dr Allen & Dr ESCOBEDO at ENDOSCOPY [facility] ANESTH, UPPER GI ENDOSCOPIC PROCS 08/18/2010 ANESTHESIA FOR UPPER GI ENDOSCOPIC PROCEDURES (ERCP OR UPPER GI) performed by ALICIA MATHEWS at ENDOSCOPY [facility] BREAST BIOPSY Left Benign BREAST BIOPSY Left Benign BREAST BIOPSY Left Benign COLONOSCOPY, DIAGNOSTIC (RECTUM) 09/10/2011 COLONOSCOPY FLEXIBLE PROXIMAL DIAGNOSTIC performed by ALICIA MATHEWS at ENDOSCOPY [facility] COLONOSCOPY, DIAGNOSTIC (RECTUM) 01/13/2012 COLONOSCOPY FLEXIBLE PROXIMAL DIAGNOSTIC performed by Alicia Mathews DO at ENDOSCOPY [facility] COLONOSCOPY, DIAGNOSTIC (RECTUM) 07/21/2012 COLONOSCOPY FLEXIBLE PROXIMAL DIAGNOSTIC performed by Alicia Mathews DO at ENDOSCOPY [facility] COLONOSCOPY, DIAGNOSTIC (RECTUM) 01/13/2013 COLONOSCOPY FLEXIBLE PROXIMAL DIAGNOSTIC performed by Alicia Mathews DO at ENDOSCOPY [facility] COLONOSCOPY, DIAGNOSTIC (RECTUM) 01/19/2014 COLONOSCOPY FLEXIBLE PROXIMAL DIAGNOSTIC performed by Alicia Mathews DO at ENDOSCOPY [facility] COLONOSCOPY, DIAGNOSTIC (RECTUM) N/A 09/27/2014 COLONOSCOPY FLEXIBLE PROXIMAL DIAGNOSTIC performed by Alicia Mathews DO at ENDOSCOPY [facility] COLONOSCOPY, DIAGNOSTIC (RECTUM) N/A 03/15/2015 COLONOSCOPY FLEXIBLE PROXIMAL DIAGNOSTIC performed by Alicia Mathews DO at ENDOSCOPY [facility] COLONOSCOPY, DIAGNOSTIC (RECTUM) N/A 06/13/2015 COLONOSCOPY FLEXIBLE PROXIMAL DIAGNOSTIC performed by Alicia Mathews DO at ENDOSCOPY [facility] COLONOSCOPY, DIAGNOSTIC (RECTUM) 04/08/2016 normal/inpt [facility] COLONOSCOPY, DIAGNOSTIC (RECTUM) 07/02/2017 COLONOSCOPY FLEXIBLE PROXIMAL DIAGNOSTIC performed by Alicia Mathews DO at ENDOSCOPY [facility] COLONOSCOPY, DIAGNOSTIC (RECTUM) N/A 08/30/2018 COLONOSCOPY FLEXIBLE PROXIMAL DIAGNOSTIC performed by Alicia Mathews DO at ENDOSCOPY [facility] COLONOSCOPY, DIAGNOSTIC (RECTUM) 12/03/2021 benign adenomatous polyps, repeat 1 yr / [facility] COLONOSCOPY, DIAGNOSTIC (RECTUM) 12/17/2022 adenomatous polyp, repeat 1 yr / [facility] EGD, FLEXIBLE, DIAGNOSTIC 09/10/2011 UPPER GI ENDOSCOPY DIAGNOSTIC performed by ALICIA MATHEWS at ENDOSCOPY [facility] EGD, FLEXIBLE, DIAGNOSTIC 07/21/2012 UPPER GI ENDOSCOPY DIAGNOSTIC performed by Alicia Mathews DO at ENDOSCOPY [facility] EGD, FLEXIBLE, DIAGNOSTIC N/A 05/14/2016 ESOPHAGOGASTRODUODENOSCOPY (EGD), FLEXIBLE, TRANSORAL, DIAGNOSTIC performed by Alicia Mathews DO at [facility] EGD, FLEXIBLE, DIAGNOSTIC 04/08/2016 anastamotic ulcer/inpt [facility] EGD, FLEXIBLE, DIAGNOSTIC N/A 07/02/2017 ESOPHAGOGASTRODUODENOSCOPY (EGD), FLEXIBLE, TRANSORAL, DIAGNOSTIC performed by Alicia Mathews DO at [facility] EGD, FLEXIBLE, DIAGNOSTIC N/A 08/30/2018 ESOPHAGOGASTRODUODENOSCOPY (EGD), FLEXIBLE, TRANSORAL, DIAGNOSTIC performed by Alicia Mathews DO at [facility]COPY [facility] EGD, FLEXIBLE, DIAGNOSTIC 12/03/2021 normal, repeat 1 yr / [facility] EGD, FLEXIBLE, DIAGNOSTIC 12/17/2022 normal, repeat 1 yr / [facility] EGD, W/ENDOSCOPIC US 08/11/2012 UPPER GI ENDOSCOPY ENDOSCOPIC ULTRASOUND performed by Garcia Casey MD at ENDOSCOPY [facility] EGD, W/ENDOSCOPIC US 11/04/2012 UPPER GI ENDOSCOPY ENDOSCOPIC ULTRASOUND performed by Garcia Casey MD at ENDOSCOPY [facility] EGD, W/ENDOSCOPIC US N/A 05/08/2021 ESOPHAGOGASTRODUODENOSCOPY (EGD), FLEXIBLE, TRANSORAL, ENDOSCOPIC ULTRASOUND performed by Jane Gutierrez MD at ENDOSCOPY [facility] ERCP, DIAGNOSTIC, SPECIMEN COLLECTION 09/14/2012 ENDOSCOPIC RETROGRADE CHOLANGIOPANCREATOGRAPHY DIAGNOSTIC performed by Garcia Casey MD at [facility]COPY [facility] ERCP, DIAGNOSTIC, SPECIMEN COLLECTION 11/04/2012 ENDOSCOPIC RETROGRADE CHOLANGIOPANCREATOGRAPHY DIAGNOSTIC performed by Garcia Casey MD at ENDOS[facility] MAINE FLEX SIGMOID DIAGNOSITIC N/A 09/18/2019 SIGMOIDOSCOPY FLEXIBLE DIAGNOSTIC performed by Alicia Mathews DO at ENDOSCOPY [facility] MUSCLE/FASCIA DEBRIDEMENT, FIRST 20 CM2 N/A 11/29/2020 DEBRIDEMENT SKIN SUBCUTANEOUS TISSUE AND MUSCLE performed by Howard Montes De Oca DO at OR [facility] OTHER 2006 tracheostomy & laryngectomy REMOVAL OF COLON/ILEOSTOMY 1976 x3 REMOVAL OF THYROID GLAND 2006 Thyroidectomy REMOVE PANCREAS, PARTIAL ([place]IP[place]) 06/17/2010 PANCREATECTOMY PROXIMAL WITH TOTAL DUODENECTOMY, Dr CIFUENTES REMOVE PANCREAS, PARTIAL ([place]IP[place]) 12/02/2012 12/02/2012 PANCREATECTOMY PROXIMAL WITH SUBTOTAL DUODENECTOMY performed by Julio C Cifuetnes MD at OR [facility] REPAIR INITIAL INCISIONAL OR VENTRAL HERNIA; REDUCIBLE 12/15/2021 done at [facility] by Dr Aayush Estrella REPAIR WINDPIPE OPENING, COMPLEX 06/02/2021 TRACHEOSTOMA REVISION WITH FLAP performed by Howard Montes De Oca DO at OR [facility] REPAIR WINDPIPE OPENING, SIMPLE N/A 08/07/2015 TRACHEOSTOMA REVISION SIMPLE performed by Howard Montes De Oca DO at OR [facility] REPAIR WINDPIPE OPENING, SIMPLE Bilateral 11/29/2020 TRACHEOSTOMA REVISION SIMPLE performed by Howard Montes De Oca DO at OR [facility] SIGMOIDOSCOPY, DIAGNOSTIC N/A 10/15/2020 SIGMOIDOSCOPY FLEXIBLE DIAGNOSTIC performed by Alicia Mathews DO at [facility] SIGMOIDOSCOPY, DIAGNOSTIC N/A 04/29/2021 SIGMOIDOSCOPY FLEXIBLE DIAGNOSTIC performed by Monae Batista DO at ENDOS[facility] US GUIDED BREAST BIOPSY RIGHT Right Benign Social History Socioeconomic History Marital status: Single Occupational History 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 No mold. Social Determinants of Health Food Insecurity: No Food Insecurity (06/22/2023) Hunger Vital Sign Worried About Running Out of Food in the Last Year: Never true Ran Out of Food in the Last Year: Never true Family History Problem Relation Age of Onset [...] Other (Please comment) Gastric ulcer with anemia documented in this encounter Nursing Notes * Lanie Jarvis LPN - 08/23/2023 7:57 AM EST Chief Complaint Patient presents with Follow Up COPD Interm History/Respiratory Symptoms Cough: clear Hemoptysis: no Sinus Symptoms: no Hospitalizations: Jun 2023 ED Trips: Jun 2023 Triggers: scents, exertion Nocturnal: cough CPAP/BiPAP/O2: no Travel Screening Question 08/23/2023 7:47 AM EST - Filed by Patient Do you have any of the following new or worsening symptoms? None of these Have you recently been in contact with someone who was sick? No / Unsure Myc Visit Accident Related Question Question 08/23/2023 7:47 AM EST - Filed by Patient Is this visit related to an accident? (i.e work, motor vehicle) No Mmrc Cat Question 08/23/2023 7:56 AM EST - Filed by Lanie Jarvis LPN When do you become breathless? (1) I get short of breath when hurrying on level ground How frequently do you cough? (4) Do you have phlegm in your chest? (3) Is your chest tight? (0) - My chest does not feel tight at all How breathless do you become when walking up a hill or steps? (3) How limited are you doing activities at home? (2) How confident are you leaving home with your lung condition? (0) - I am confident leaving my home despite my condition How soundly do you sleep? (4) How much energy do you have? (3) Total MMRC Score (range: 0 - 4) 1 Total CAT Score (range: 0 - 40) 19 documented in this encounter Plan of Treatment Upcoming Encounters Date Type Department Care Team (Late st Contact Info) Description 08/23/2023 10:00 AM EST Laboratory Laboratory [facility] [place] [address] [place] [phone] [address] [place] [facility] [place] [address] 08/25/2023 9:30 AM EST Office Visit Orthopaedics [facility] [address] [place] [address] Javon Bunn, DO [address] [place] [address] 09/14/2023 9:00 AM EDT Imaging Radiology [address] [place] [address] 09/28/2023 9:30 AM EDT Office Visit Cardiology, [facility] [address] [place] [address] Rancho Gordon, DO [address] [place] [address] 09/30/2023 10:10 AM EDT Pharmacy Pharmacy, [facility] [address] [place] [address] Pharmacist1, [facility] [address] [facility] [place] [address] 09/30/2023 10:40 AM EDT Office Visit General Internal Medicine [facility] [address] [facility] [place] [address] Orlin Castro MD [address] [facility] [place] [address] 10/05/2023 3:30 PM EDT Office Visit Dermatology [facility] [address] [facility] [place] [address] Ling Capellan, [place] [address] [facility] [place] [address] 11/30/2023 9:30 AM EDT Imaging Radiology [address] [place] [address] 12/15/2023 9:00 AM EDT Procedure Only Endoscopy, [facility] [address] [place] [address] Raymond Campbell MD [address] [place] [address] 02/17/2024 7:50 AM EDT Office Visit Optometry, [place] [address] [place] [address] Rancho Chapman Jr., [address] [place] [address] 03/27/2024 8:40 AM EDT Office Visit Endocrinology, [place] [address] [place] [address] Nhung Monzon MD [address] [place] [address] 05/08/2024 11:20 AM EST Office Visit Nephrology, [facility] [address] [place] [address] Galindo Jean MD [address] [place] [address] Health Maintenance Due Date Last Done Comments [...] 01/12/2023, , 01/12/2023, Additional history exists GFR 02/01/2024 08/03/2023, 06/05, 06/02/2023, Additional history exists TSH 03/15/2024 03/15/2023, 05/05, 03/06/2022, Additional history exists Albumin/Creatinine Ratio 05/05/2024 023, 05/14/2022, 05/01/2022, Additional history exists Depression Screening 06/22/2024 06/22/2023 CKD HGB USE SMARTSET 23253 08/03/202408/03, 08/03/2023, 07/02/2023, Additional history exists CKD PHOS USE SMARTSET 23015 08/03/202407/07, 07/02/2023, 08/21/2021, Additional history exists O2 ASSESSMENT COMPLETED [...] this encounter Medical Devices Implanted Type Area Cellars Supervisor Device Identifier Shelf Expiration Date Model / Serial / Lot Stent Pancreatic Kelsin 5fr - [id number] Implanted:Qty: 1 on 06/17/2010 at OR [facility] [employer] 03/18/2013 [id number] / / [id number] Stent 10fr 7cm - [id number] Implanted:Qty: 1 on 06/17/2010 at OR [facility] COOK : RADHA [place] 01/15/2013 [id number] / / [id number] Description:pancreas documented as of this encounter Visit Diagnoses Diagnosis Status post laryngectomy- Primary Other postprocedural status Pulmonary nodules Other nonspecific abnormal finding of lung field documented in this encounter Advance Directives Latest [...] the patient have Health Care Power of Parts Room Assistant? No Care Teams Retail Beauty Specialist Relationship Specialty Start Date End Date Orlin Castro MD [address] [facility] [place] [address] PCP - General Internal Medicine 04/27/19 documented as of this encounter
--- OUTSIDE RECORDS SUMMARY | 2024-01-23 13:04 | External Medical Summary | Summary of Care ---
Author Name Unknown Organization [facility] Address [address] [place] [address] Phone [phone] Care Team Providers Care Tax Appraiser Name Role Phone Orlin Castro MD Primary Care Provider + Reason for Visit * Reason Onset Date Comments Test Results 08/04/2023 Encounter Details Date Type Department Care Team (Late st Contact Info) Description 08/04/2023 Telephone [facility] 200 [facility] [place] [address] Galindo Jean MD [address] [place] [address] Test Results Allergies Active Allergy Reactions Criticality Noted Date Comments Zolpidem Tartrate Psych complications 6 Rosuvastatin 04/05/2020 Elevated lft Hydrochlorothiazide 12/29/2019 brenda Nsaids Other (Please comment) 04/14/2016 Gastric ulcer with anemia documented as of this encounter (statuses as of 08/04/2023) Medications Medication Sig Dispensed Refills Start Date [...] Tablet 3 09/04/2022 09/11/19 24 Active Tiotropium Ringle Monohydrate 2.5 MCG/ACT Inhalation Aerosol Solution (Spiriva [...] 2017 classification ([facility]) INHALE 1 PUFF IN THE MORNING AND 1 PUFF BEFORE BEDTIME 31.8 g 3 08/07/2022 08/07/19 24 Active Additional Information Patient taking differently:1 Puff Inhalation BID (.AM/PM),Hasn't started it yet, Reported on 08/12/2022 OneTouch Verio In Vitro Strip (Glucose Blood)Indications:T [...] 3 days 20 Tablet 0 07/09/2023 Active Additional Information Patient not taking.Reported on 08/03/2023 Sucralfate 1 GM Oral Tablet (Carafate)Indicatio ns:Gastritis, bile acid reflux Take by mouth 1 Tablet in the morning AND 1 Tablet at noon AND 1 Tablet in the evening AND 1 Tablet before bedtime. 360 Tablet 3 07/27/2023 Active documented as of this encounter (statuses as of 08/04/2023) Active Problems Problem Noted Date Diagnosed Date [...] as of this encounter (statuses as of 08/04/2023) Resolved Problems Problem Noted Date Diagnosed Date [...] as of this encounter (statuses as of 08/04/2023) Immunizations Name Administration Dates Next Due COVID-19 [...] Telephone Encounter - Lynn Cruz LPN - 08/04/2023 10:34 AM EST MyG message sent * Telephone Encounter - Lynn Cruz LPN - 08/04/2023 10:34 AM EST ----- Message from Galindo Jean MD sent at 08/04/2023 9:59 AM EST ----- Renal panel already addressed. Other labs stable. documented in this encounter Plan of Treatment Upcoming Encounters Date Type Department Care Team (Late st Contact Info) Description 08/25/2023 9:30 AM EST Office Visit Orthopaedics [facility] 132 [facility] [place] [address] Javon Bunn, 132 [facility] [place] [address] 09/08/2023 9:40 AM EST Office Visit Pulmonary Medicine, [facility] 132 [facility] [place] [address] Perfecto Contreras MD [address] [place] [address] 09/30/2023 10:10 AM EDT Pharmacy Pharmacy, [facility] 200 [facility] [place] [address] Pharmacist1, [facility] 200 [facility] [place] [address] 09/30/2023 10:40 AM EDT Office Visit General Internal Medicine [facility] 200 [facility] [place] [address] Orlin Castro MD 200 [facility] [place] [address] 10/05/2023 3:30 PM EDT Office Visit Dermatology [facility] 200 [facility] [place] [address] Ling Capellan, [place] [address] [place] [address] 11/30/2023 9:30 AM EDT Imaging Radiology [facility] 1st [facility] 132 [facility] [place] [address] 02/17/2024 7:50 AM EDT Office Visit Optometry, [place] 16 [place], [place] [id number] Ari Staley, Rancho Bullard OD 16 [place] [address] 03/27/2024 8:40 AM EDT Office Visit Endocrinology, [place] [address] [place] [address] Nhung Monzon MD [address] [place] [address] 05/08/2024 11:20 AM EST Office Visit Nephrology, [facility] 200 [facility] [place] [address] Galindo Jean MD 200 [facility] [place] [address] Scheduled Procedures Name Priority Associated Diagnoses Date/Ti [...] Screening 06/22/2024 06/22/2023 CKD HGB USE SMARTSET 19382 08/03/202408/03, 08/03/2023, 07/02/2023, Additional history exists CKD PHOS USE SMARTSET 73932 08/03/202407/07, 07/02/2023, 08/21/2021, Additional history exists O2 ASSESSMENT COMPLETED IN PAST YEAR FOR COPD 08/03/2024 08/03/2023 DXA Scan 05/12/2026 05/12/2022, 05/12/2022 Lipid Panel [...] this encounter Medical Devices Implanted Type Area Trap Setter Device Identifier Shelf Expiration Date Model / Serial / Lot Stent 10fr 7cm - [id number] Implanted:Qty: 1 on 06/17/[address] [facility] COOK : RADHA MONTANA 01/15/2013 [id number] / / [id number] Description:pancreas documented as of this encounter Advance [...] the patient have Health Care Power of Retail Parts Pro? No Care Teams Tax Appraiser Relationship Specialty Start Date End Date Orlin Castro MD [address] [place] [address] PCP - General Internal Medicine 04/27/19 documented as of this encounter
--- OUTSIDE RECORDS SUMMARY | 2024-01-23 13:04 | External Medical Summary | Summary of Care ---
Author Name Unknown Organization [facility] Address [address] [place] [facility] [place] [address] Phone [phone] Care Team Providers Care Physician Assistant Surgery Name Role Phone Orlin Castro MD Primary Care Provider + Reason for Visit * Reason Comments Outpatient Testing Encounter Details Date Type Department Care Team (Late st Contact Info) Description 08/23/2023 10:00 AM EST Laboratory [facility] [address] [place] [phone] [facility] [address] [place] [address] Stage 3a chronic kidney disease (HCC); Elevated LFTs; Hypertension goal BP (blood pressure) [...] Tablet 3 09/04/2022 09/11/19 24 Active Tiotropium Switchback Monohydrate 2.5 MCG/ACT Inhalation Aerosol Solution (Spiriva Respimat)Indication s:COPD, group B, by GOLD 2017 classification ([facility]) INHALE 2 PUFFS BY MOUTH IN THE MORNING 12 g 3 08/07/2022 10/06/19 24 Active Additional Information Patient taking differently:2 Puff Inhalation Daily(AM),Hasn't started it yet, Reported on 08/12/2022 OneToSpeakermix In Vitro Strip (Glucose Blood)Indications:T ype 2 [...] less than 7.0% ([facility]) Take 1 Tablet by [...] above (Moderna) 07/07/2022 Hepatitis B, 20+ yrs 12/20/2014,07/27/2014,12/19 /2014 Pneumococcal Conjugate Vacc, 13 Valent (Prevnar) 04/26/2015,04/04/2015 [...] 08/25/2023 9:30 AM EST Office Visit Orthopaedics [facility] 132 [place] [address] Javon Bunn, DO [address] [place] [address] 09/14/2023 9:00 AM EDT Imaging Radiology [address] 132 [place] [address] 09/28/2023 9:30 AM EDT Office Visit Cardiology, [facility] [address] [place] [address] Rancho Gordon, 132 [place] [address] 09/30/2023 10:10 AM EDT Pharmacy Pharmacy, [facility] 200 [facility] [place] [address] Pharmacist1, [facility] 200 [facility] [place] [address] 09/30/2023 10:40 AM EDT Office Visit General Internal Medicine [facility] 200 [facility] [place] [address] Orlin Castro MD 200 [facility] [place] [address] 10/05/2023 3:30 PM EDT Office Visit Dermatology [facility] 200 [facility] [place] [address] Ling Capellan PA-C [address] [place] [address] 11/30/2023 9:30 AM EDT Imaging Radiology [address] 132 [place] [address] 12/15/2023 9:00 AM EDT Procedure Only Endoscopy, [facility] 132 [place] [address] Raymond Campbell MD 132 [place] [address] 02/17/2024 7:50 AM EDT Office Visit Optometry, [place] 16 [place] [address] Rancho Chapman Jr., 16 [place] [address] 03/27/2024 8:40 AM EDT Office Visit Endocrinology, [place] [address] [place] [address] Nhung Monzon MD [address] [place] [address] 05/08/2024 11:20 AM EST Office Visit Nephrology, [facility] [address] [place] [address] Galindo Jean MD 200 [facility] [place] [address] Pending Results Name Type Priority Associated Diagnoses Date /Time 25-HYDROXY VITAMIN D Lab Routine Stage 3a chronic kidney disease (HCC) 08/23/2023 9:45 AM EST RENAL FUNCTION PANEL Lab Routine Hypertension goal BP (blood pressure) < 140/90 Stage 3a chronic kidney disease (HCC) 08/23/2023 9:45 AM EST ALKALINE PHOSPHATASE Lab Routine Elevated LFTs 08/23/2023 9:45 AM EST PROTEIN Lab Routine Elevated LFTs 08/23/2023 9:45 AM EST AST Lab Routine Elevated LFTs 08/23/2023 9:45 AM EST ALT Lab Routine Elevated LFTs 08/23/2023 9:45 AM EST BILIRUBIN, DIRECT Lab Routine Elevated LFTs 08/23/2023 9:45 AM EST BILIRUBIN, TOTAL Lab Routine Elevated LFTs 08/23/2023 9:45 AM EST Health Maintenance Due Date Last Done Comments *COPD SEVERITY VERIFIED BY PFT 08/02/2019 COVID-19 Vaccine () 03/05/2023 07/07/2022, 02/15/2021, 01/09/2021, Additional history exists Diabetic [...] Screening 06/22/2024 06/22/2023 CKD HGB USE SMARTSET 76255 08/03/202408/03, 08/03/2023, 07/02/2023, Additional history exists CKD PHOS USE SMARTSET 07568 08/03/202407/07, 07/02/2023, 08/21/2021, Additional history exists O2 [...] this encounter Medical Devices Implanted Type Area Paint Pourer Device Identifier Shelf Expiration Date Model / Serial / Lot Stent Pancreatic Geenen 5fr - [id number] Implanted:Qty: 1 on 06/17/2010 at OR [facility] [employer] 03/18/2013 [id number] / / [id number] Stent 10fr 7cm - [id number] Implanted:Qty: 1 on 06/17/2010 at OR [facility] COOK : RADHA MONTANA 01/15/2013 [id number] / / [id number] Description:pancreas documented as of this encounter Visit Diagnoses Diagnosis Stage 3a chronic kidney disease (HCC) Elevated LFTs Other abnormal blood chemistry Hypertension [...] the patient have Health Care Power of Patternmaker Metal Bench? No Care Teams Physician Assistant Surgery Relationship Specialty Start Date End Date Orlin Castro MD 200 [facility] [place] [address] PCP - General Internal Medicine 04/27/19 documented as of this encounter
--- OUTSIDE RECORDS SUMMARY | 2024-01-23 13:04 | External Medical Summary ---
Author Name Unknown Address Unknown Organization [facility] [place] [address] Laboratory Report Ordering Provider Test Date Status LASHON VASQUEZ 08/23/2023 09:45:39 Final Observation Date Value Abnormality Reference (Units ) Status BUN 08/23/2023 09:45:39 26 Above high normal 6-20 (mg/dL) Final Creatinine 08/23/2023 09:45:39 0.9 0.5-1.0 (mg/dL) Final Glomerular filtration rate/1.73 sq M.predicted [Volume Rate/Area] in Serum, Plasma or Blood by Creatinine-based formula (CKD-EPI) 08/23/2023 09:45:39 74 >=60 (mL/min) Final eGFR is calculated based on the CKD-EPI 2020 equation SODIUM 08/23/2023 09:45:39 142 135-146 (m mol/L) Final Potassium 08/23/2023 09:45:39 3.9 3.5-5.1 (m mol/L) Final Cl 08/23/2023 09:45:39 105 98-107 (mm ol/L) Final CO2 08/23/2023 09:45:39 22 22-32 (mmo l/L) Final Anion gap 08/23/2023 09:45:39 15 7-15 (mmol /L) Final Glucose 08/23/2023 09:45:39 133 Above high normal 70 -120 (mg/dL) Final Calcium 08/23/2023 09:45:39 9.3 8.4-10.2 ( mg/dL) Final Albumin 08/23/2023 09:45:39 4.3 3.8-5.0 (g /dL) Final Phosphate 08/23/2023 09:45:39 4.4 2.5-4.8 (m g/dL) Final Performing Location [facility] [address] [place] [address]
--- OUTSIDE RECORDS SUMMARY | 2024-01-23 13:04 | External Medical Summary | Summary of Care ---
Author Name Unknown Organization [facility] Address [address] [facility] [place] [address] Phone [phone] Care Team Providers Care Osd Clerk Name Role Phone Orlin Castro MD Primary Care Provider + Encounter Details Date Type Department Care Team (Late st Contact Info) Description 08/04/2023 Orders Only PATIENT PORTAL DO NOT DELETE [...] Tablet 3 09/04/2022 09/11/19 24 Active Tiotropium [place] Monohydrate 2.5 MCG/ACT Inhalation Aerosol Solution (Spiriva [...] ns:COPD, group B, by GOLD 2017 classification ([facility]) INHALE 1 PUFF IN THE MORNING AND 1 PUFF BEFORE BEDTIME 31.8 g 3 08/07/2022 08/07/19 24 Active Additional Information Patient taking differently:1 Puff Inhalation BID (.AM/PM),Hasn't started it yet, Reported on 08/12/2022 OneTouch Viridis Energy In Vitro Strip (Glucose Blood)Indications:T ype 2 [...] 08/25/2023 9:30 AM EST Office Visit Orthopaedics [facility] [address] [place] [address] Javon Bunn, DO [address] [place] [address] 09/08/2023 9:40 AM EST Office Visit Pulmonary Medicine, [facility] [address] [place] [address] Perfecto Contreras MD [address] [place] [address] 09/30/2023 10:10 AM EDT Pharmacy Pharmacy, [facility] [address] [place] [address] Pharmacist1, [facility] [address] [place] [address] 09/30/2023 10:40 AM EDT Office Visit General Internal Medicine [facility] 200 [facility] [place] [address] Orlin Castro MD 200 [facility] [place] [address] 10/05/2023 3:30 PM EDT Office Visit Dermatology [facility] 200 [facility] [place] [address] Ling Capellan PA-C [address] [place] [address] 11/30/2023 9:30 AM EDT Imaging Radiology [address] 132 [place] [address] 02/17/2024 7:50 AM EDT Office Visit Optometry, [place] 16 [place] [address] Ari Staley, [place] Bull[place], 16 [place] [address] 03/27/2024 8:40 AM EDT Office Visit Endocrinology, [place] [address] [place] [address] Nhung Monzon MD [address] [place] [address] 05/08/2024 11:20 AM EST Office Visit Nephrology, [facility] 200 [facility] [place] [address] Galindo Jean MD 200 [facility] [place] [address] Scheduled Procedures Name Priority Associated Diagnoses Date/Ti [...] Additional history exists Depression Screening 06/22/2024 06/22/2023 O2 ASSESSMENT COMPLETED IN PAST YEAR FOR [...] this encounter Medical Devices Implanted Type Area Telecommunicator Supervisor Device Identifier Shelf Expiration Date Model / Serial / Lot Stent 10fr 7cm - [id number] Implanted:Qty: 1 on 06/17/2010 at [facility] COOK : RADHA MONTANA 01/15/2013 [id number] / / [id number] Description:pancreas documented as of this encounter Advance [...] the patient have Health Care Power of Residential Treatment Specialist? No Care Teams Osd Clerk Relationship Specialty Start Date End Date Orlin Castro MD 200 [facility] [place] [address] PCP - General Internal Medicine 04/27/19 documented as of this encounter
--- OUTSIDE RECORDS SUMMARY | 2024-01-23 13:04 | External Medical Summary | Summary of Care ---
Author Name Unknown Organization [facility] Address [address] [facility] [place] [address] Phone [phone] Care Team Providers Care Dowel Machine Operator Name Role Phone Orlin Castro MD Primary Care Provider + Reason for Visit * Reason Onset Date Comments Appointment 08/23/[address] Gordon Encounter Details Date Type Department Care Team (Late st Contact Info) Description 08/23/2023 Telephone Cardiology, [facility] [address] [place] [address] [place]o Gordon, [address] [place] [address] Appointment (Needs appointment with Dr. Park.. Allergies Active Allergy Reactions Criticality Noted Date [...] mouth daily. 90 Tab 3 03/07/2021 Active OPENLANETouch Verio Flex System w/Device Kit Use as [...] Tablet 3 09/04/2022 09/11/19 24 Active Tiotropium Curlew Monohydrate 2.5 MCG/ACT Inhalation Aerosol Solution (Spiriva Respimat)Indication s:COPD, group B, by GOLD 2017 classification ([facility]) INHALE 2 PUFFS BY MOUTH IN THE MORNING 12 g 3 08/07/2022 10/06/19 24 Active Additional Information Patient taking differently:2 Puff Inhalation Daily(AM),Hasn't started it yet, Reported on 08/12/2022 Skillaton In Vitro Strip (Glucose Blood)Indications:T ype 2 [...] [facility]) Take 1 Tablet by mouth 2 times [...] encounter Miscellaneous Notes * Telephone Encounter - Maeve Valdivia OSA - 08/23/2023 10:01 AM EST Pt already scheduled with cardiology on 09/27. * Telephone Encounter - Babatunde Barker OSA - 08/23/2023 9:42 AM EST Needs appointment with Dr. Gordon, no appointments available on current template. Pt would like to speak with cardiology. documented in this encounter Plan of Treatment Upcoming Encounters Date Type Department Care Team (Late st Contact Info) Description 08/25/2023 9:30 AM EST Office Visit Orthopaedics [facility] [address] [place] [address] Javon Bunn, DO [address] [place] [address] 09/14/2023 9:00 AM EDT Imaging Radiology [address] 132 [facility] [place] [address] 09/28/2023 9:30 AM EDT Office Visit Cardiology, [facility] 132 [facility] [place] [address] Rancho Gordon DO 132 [facility] [place] [address] 09/30/2023 10:10 AM EDT Pharmacy Pharmacy, [facility] 200 [place] [address] Pharmacist1, [facility] 200 [facility] [place] [address] 09/30/2023 10:40 AM EDT Office Visit General Internal Medicine [facility] 200 [facility] [place] [address] Orlin Castro MD 200 [facility] [place] [address] 10/05/2023 3:30 PM EDT Office Visit Dermatology [facility] 200 [facility] [place] [address] Ling Capellan, PA-C [address] [place] [address] 11/30/2023 9:30 AM EDT Imaging Radiology [address] 132 [facility] [place] [address] 12/15/2023 9:00 AM EDT Procedure Only Endoscopy, [place] [facility] [place] [address] Raymond Campbell MD [address] [place] [address] 02/17/2024 7:50 AM EDT Office Visit Optometry, [address] [address] Rancho Chapman Jr., OD 16 [place] [address] 03/27/2024 8:40 AM EDT Office Visit Endocrinology, [place] [address] [place] [address] Nhung Monzon MD [address] [place], [place] [address] 05/08/2024 11:20 AM EST Office Visit Nephrology, [facility] 200 [place] [address] Galindo Jean MD 200 [place] [address] Health Maintenance Due Date Last Done Comments [...] Screening 06/22/2024 06/22/2023 CKD HGB USE SMARTSET 15759 08/03/202408/03, 08/03/2023, 07/02/2023, Additional history exists CKD PHOS USE SMARTSET 59729 08/03/202407/07, 07/02/2023, 08/21/2021, Additional history exists O2 [...] this encounter Medical Devices Implanted Type Area Baseball Pitcher Device Identifier Shelf Expiration Date Model / Serial / Lot Stent Pancreatic Kelsin 5fr - [id number] Implanted:Qty: 1 on 06/17/2010 at OR [facility] [employer] 03/18/2013 [id number] / / [id number] Stent 10fr 7cm - [id number] Implanted:Qty: 1 on 06/17/2010 at OR [facility] NAN : RADHA MONTANA 01/15/2013 [id number] / / [id number] Description:pancreas documented as of this encounter Advance [...] the patient have Health Care Power of Facilities Flight Check Pilot? No Care Teams Dowel Machine Operator Relationship Specialty Start Date End Date Orlin Castro MD 200 [place] [address] PCP - General Internal Medicine 04/27/19 documented as of this encounter
--- OUTSIDE RECORDS SUMMARY | 2024-01-23 13:04 | External Medical Summary ---
Author Name Unknown Address Unknown Organization [facility] [address] [place] [address] Laboratory Report Ordering Provider Test Date Status IRCHARD BEYER 08/23/2023 09:45:39 Final Observation Date Value Abnormality Reference (Units ) Status Bilirubin, Total 08/23/2023 09:45:39 0.3 <=1 .2 (mg/dL) Final Performing Location [facility] [place] [address]
--- OUTSIDE RECORDS SUMMARY | 2024-01-23 13:04 | External Medical Summary ---
Author Name Unknown Address Unknown Organization [facility] [address] [place] [address] Laboratory Report Ordering Provider Test Date Status RICHARD BEYER 08/23/2023 09:45:39 Final Observation Date Value Abnormality Reference (Units ) Status Protein 08/23/2023 09:45:39 6.8 6.0-8.3 (g /dL) Final Performing Location [facility] [address] [place] [address]
--- OUTSIDE RECORDS SUMMARY | 2024-01-23 13:04 | External Medical Summary ---
Author Name Unknown Address Unknown Organization [facility] [address] [place] [address] Laboratory Report Ordering Provider Test Date Status RICHARD BEYER 08/23/2023 09:45:39 Final Observation Date Value Abnormality Reference (Units ) Status AST (Aspartate aminotransferase) 08/23/2023 09:45:39 44 Above high normal 10-35 (U/L) Final Performing Location [facility] [address] [place] [address]
--- OUTSIDE RECORDS SUMMARY | 2024-01-23 13:04 | External Medical Summary ---
Author Name Unknown Address Unknown Organization [facility] [address] [place] [address] Laboratory Report Ordering Provider Test Date Status RICHARD BEYER 08/23/2023 09:45:39 Final Observation Date Value Abnormality Reference (Units ) Status Alk Phos 08/23/2023 09:45:39 177 Above high normal 35 -130 (U/L) Final Performing Location [facility] [place] [address]
--- OUTSIDE RECORDS SUMMARY | 2024-01-23 13:04 | External Medical Summary ---
Author Name Unknown Address Unknown Organization K[facility] [address] [place] [address] Laboratory Report Ordering Provider Test Date Status LASHON VASQUEZ 08/23/2023 09:45:39 Final Deficient: <20 ng/mL
Ins ufficient: 20-29 ng/mL
Recommended/Optimum:30-50 ng/mL

Vitamin D intoxication is rare. If suspicious of Vitamin D toxicity, evaluation of serum Calcium and PTH is recommended. Observation Date Value Abnormality Reference (Units ) Status 25-OH Vitamin D total 08/23/2023 09:45:39 26 >19 (ng/mL) Final Performing Location [facility] [address] [place] [address]
--- OUTSIDE RECORDS SUMMARY | 2024-01-23 13:04 | External Medical Summary | Summary of Care ---
Author Name Unknown Organization [facility] Address [address] [place] [address] Phone [phone] Care Team Providers Care Developmental Services Worker Name Role Phone Orlin Castro MD Primary Care Provider + Reason for Visit * Reason Comments Outpatient Testing Encounter Details Date Type Department Care Team (Late st Contact Info) Description 08/03/2023 2:00 PM EST Laboratory Laboratory [facility] [address] [place] [address] [facility] [address] [place] [address] Hypokalemia; Serum phosphate elevated; Abnormal CBC measurement; Stage 3a chronic kidney disease (HCC) Allergies Active Allergy Reactions Criticality Noted Date Comments Zolpidem Tartrate Psych complications 6 Rosuvastatin 04/05/2020 Elevated lft Hydrochlorothiazide 12/29/2019 brenda Nsaids Other (Please comment) 04/14/2016 Gastric ulcer with anemia documented as of this encounter (statuses as of 08/03/2023) Medications Medication Sig Dispensed Refills Start Date End Date Status ONETOUCH DELICA LANCETS FINE MISC Use to test blood sugar 4 times daily dx e11.9 400 Each 3 03/09/2019 Active Misc. Devices [facility] Tr[facility] Kit [facility]4601 1 Each 0 [...] Tablet 3 09/04/2022 09/11/19 24 Active Tiotropium [place] Monohydrate 2.5 MCG/ACT Inhalation Aerosol Solution (Spiriva [...] (.AM/PM),Hasn't started it yet, Reported on 08/12/2022 [employer]Things[employer]or In Vitro Strip (Glucose Blood)Indications:T ype 2 [...] A1c goal of less than 7.0% ([facility]) Take 1 Tablet by mouth 2 times [...] as of this encounter (statuses as of 08/03/2023) Active Problems Problem Noted Date Diagnosed Date [...] as of this encounter (statuses as of 08/03/2023) Resolved Problems Problem Noted Date Diagnosed Date [...] as of this encounter (statuses as of 08/03/2023) Immunizations Name Administration Dates Next Due COVID-19 [...] 08/25/2023 9:30 AM EST Office Visit Orthopaedics [facility] [address] [place] [address] Javon Bunn, DO [address] [place] [address] 09/08/2023 9:40 AM EST Office Visit Pulmonary Medicine, [facility] [address] [place] [address] Perfecto Contreras MD [address] [place] [address] 09/30/2023 10:10 AM EDT Pharmacy Pharmacy, [facility] [address] [facility] [place] [address] Pharmacist1, [facility] [address] [place] [address] 09/30/2023 10:40 AM EDT Office Visit General Internal Medicine [facility] [address] [facility] [address] [place] [address] Orlin Castro MD [address] [facility] [place] [address] 10/05/2023 3:30 PM EDT Office Visit Dermatology [facility] [address] [facility] [address] [place] [address] Ling Capellan PA-Han [address] [place] [address] 11/30/2023 9:30 AM EDT Imaging Radiology [address] [place] [address] 02/17/2024 7:50 AM EDT Office Visit Optometry, [place] [address] [place] [address] Rancho Chapman Jr., OD [address] [place] [address] 03/27/2024 8:40 AM EDT Office Visit Endocrinology, [place] [address] [place] [address] Nhung Monzon MD [address] [place] [address] 05/08/2024 11:20 AM EST Office Visit Nephrology, [facility] [address] [place], [place] [address] Galindo Jean MD [address] [facility] [address] [place] [address] Pending Results Name Type Priority Associated Diagnoses Date /Time CBC WITH WBC DIFFERENTIAL Lab Routine Abnormal CBC measurement 08/03/2023 2:04 PM EST PROTEIN/ CREATININE RATIO, URINE Lab Routine Stage 3a chronic kidney disease (HCC) 08/03/2023 2:04 PM EST RENAL FUNCTION PANEL Lab Routine Stage 3a chronic kidney disease (HCC) 08/03/2023 2:04 PM EST URINALYSIS WITH MICROSCOPIC EXAM Lab Routine Stage 3a chronic kidney disease (HCC) 08/03/2023 2:04 PM EST CBC Lab Routine Abnormal CBC measurement 08/03/2023 2:04 PM EST DIFFERENTIAL, AUTOMATED Lab Routine Abnormal CBC measurement 08/03/2023 2:04 PM EST ALKALINE PHOSPHATASE Lab Routine Hypokalemia 08/03/2023 2:04 PM EST PROTEIN Lab Routine Hypokalemia 08/03/2023 2:04 PM EST AST Lab Routine Hypokalemia 08/03/2023 2:04 PM EST ALT Lab Routine Hypokalemia 08/03/2023 2:04 PM EST BILIRUBIN, DIRECT Lab Routine Hypokalemia 08/03/2023 2:04 PM EST BILIRUBIN, TOTAL Lab Routine Hypokalemia 08/03/2023 2:04 PM EST Scheduled Procedures Name Priority Associated Diagnoses [...] Additional history exists Depression Screening 06/22/2024 06/22/2023 GFR 07/02/2024 07/02/2023, 05/06, 05/12/2023, Additional history exists O2 ASSESSMENT COMPLETED IN PAST YEAR FOR COPD 07/02/2024 07/02/2023 DXA Scan 05/12/2026 05/12/2022, 05/12/2022 Lipid Panel [...] this encounter Medical Devices Implanted Type Area Personal Care Worker Device Identifier Shelf Expiration Date Model / Serial / Lot Stent 10fr 7cm - [id number] Implanted:Qty: 1 on 06/17/2010 at OR [facility] COOK : RADHA [place] 01/15/2013 [id number] / / [id number] Description:pancreas documented as of this encounter Visit Diagnoses Diagnosis Hypokalemia Hypopotassemia Serum phosphate elevated Disorders of phosphorus metabolism Abnormal CBC measurement Other abnormal blood chemistry Stage 3a chronic kidney disease (HCC) documented in this encounter Advance Directives [...] the patient have Health Care Power of Turbine Room Attendant? No Care Teams Developmental Services Worker Relationship Specialty Start Date End Date Orlin Castro MD [facility] [address] P[facility] - General Internal Medicine 04/27/19 documented as of this encounter
--- OUTSIDE RECORDS SUMMARY | 2024-01-23 13:04 | External Medical Summary | Summary of Care ---
Author Name Unknown Organization [facility] Address [address] [place] [address] Phone [phone] Care Team Providers Care Project Internship Name Role Phone Orlin Castro MD Primary Care Provider + Reason for Visit * Reason Onset Date Comments Test Results 08/04/2023 Encounter Details Date Type Department Care Team (Late st Contact Info) Description 08/04/2023 Telephone [facility] [address] [facility] [place] [address] Galindo Jean MD [address] [place] [address] Test Results Allergies Active Allergy Reactions Criticality [...] Tablet 3 09/04/2022 09/11/19 24 Active Tiotropium [place] Monohydrate 2.5 MCG/ACT Inhalation Aerosol Solution (Spiriva [...] Encounter - Lynn Cruz LPN - 08/04/2023 10:24 AM EST Attempted to contact by phone Only received answering machine LMM will send MyG message regarding lab results * Telephone Encounter - Lynn Cruz LPN - 08/04/2023 10:24 AM EST ----- Message from Galindo Jean MD sent at 08/03/2023 4:42 PM EST ----- Potassium slightly high. Tell her to stop potassium supplement. Repeat renal panel in 1 week documented in this encounter Plan of Treatment Upcoming Encounters Date Type Department Care Team (Late st Contact Info) Description 08/25/2023 9:30 AM EST Office Visit [facility] [address] [facility] [place] [address] Javon Bunn, DO 132 [facility] [place] [address] 09/08/2023 9:40 AM EST Office Visit Pulmonary Medicine, [facility] [address] [place] [address] Perfecto Contreras MD [address] [facility] [place] [address] 09/30/2023 10:10 AM EDT Pharmacy Pharmacy, [facility] [address] [facility] [place] [address] Pharmacist1, [facility] [address] [place] [address] 09/30/2023 10:40 AM EDT Office Visit General Internal Medicine [facility] [address] [facility] [place] [address] Orlin Castro MD [address] [facility] [place] [address] 10/05/2023 3:30 PM EDT Office Visit Dermatology [facility] [address] [place] [address] Ling Capellan PA-Han [address] [place] [address] 11/30/2023 9:30 AM EDT Imaging Radiology [facility] [address] [facility] [place] [address] 02/17/2024 7:50 AM EDT Office Visit Optometry, [address] [address] Rancho Chapman Jr., OD [address] [place] [address] 03/27/2024 8:40 AM EDT Office Visit Endocrinology, [place] [address] [place] [address] Nhung Monzon MD [address] [place], [place] [address] 05/08/2024 11:20 AM EST Office Visit Nephrology, [facility] [address] [facility] [place] [address] Galindo Jean MD [address] [facility] [place] [address] Scheduled Orders Name Type Priority Associated Diagnoses Orde r Schedule RENAL FUNCTION PANEL Lab Routine Hypertension goal BP (blood pressure) < 140/90 Stage 3a chronic kidney disease (HCC) Expected: 08/04/2023 (Approximate), Expires: 08/04/2024 Scheduled Procedures Name Priority Associated Diagnoses Date/Ti [...] Screening 06/22/2024 06/22/2023 CKD HGB USE SMARTSET 52519 08/03/202408/03, 08/03/2023, 07/02/2023, Additional history exists CKD PHOS USE SMARTSET 42380 08/03/202407/07, 07/02/2023, 08/21/2021, Additional history exists O2 [...] this encounter Medical Devices Implanted Type Area Appliance Technician Device Identifier Shelf Expiration Date Model / Serial / Lot Stent 10fr 7cm - [id number] Implanted:Qty: 1 on 06/17/2010 at [facility] COOK : RADHA [place] 01/15/2013 [id number] / / [id number] Description:pancreas documented as of this encounter Visit Diagnoses Diagnosis Hypertension goal BP (blood pressure) < 140/90- Primary Unspecified essential hypertension Stage 3a chronic kidney disease (HCC) documented [...] the patient have Health Care Power of Trading Specialist? No Care Teams Project Internship Relationship Specialty Start Date End Date Orlin Castro MD [facility] [place] [address] PCP - General Internal Medicine 04/27/19 documented as of this encounter
--- OUTSIDE RECORDS SUMMARY | 2024-01-23 13:04 | External Medical Summary ---
Author Name Unknown Address Unknown Organization [facility] [address] [place] [address] Laboratory Report Ordering Provider Test Date Status RICHARD BEYER 08/23/2023 09:45:39 Final Observation Date Value Abnormality Reference (Units ) Status ALT (Alanine aminotransferase) 08/23/2023 09:45:39 59 Above high normal 10-35 (U/L) Final Performing Location [facility] [address] [place] [address]
--- OUTSIDE RECORDS SUMMARY | 2024-01-23 13:05 | External Medical Summary ---
Author Name Unknown Address Unknown Organization [facility] [address] [place] [address] Laboratory Report Ordering Provider Test Date Status RICHARD BEYER 08/03/2023 14:04:18 Final Observation Date Value Abnormality Reference (Units ) Status Protein 08/03/2023 14:04:18 6.3 6.0-8.3 (g /dL) Final Performing Location [facility] [address] [place] [address]
--- OUTSIDE RECORDS SUMMARY | 2024-01-23 13:05 | External Medical Summary ---
Author Name Unknown Address Unknown Organization [facility] [address] [place] [address] Laboratory Report Ordering Provider Test Date Status RICHARD BEYER 08/03/2023 14:04:18 Final Observation Date Value Abnormality Reference (Units ) Status ALT (Alanine aminotransferase) 08/03/2023 14:04:18 76 Above high normal 10-35 (U/L) Final Performing Location [facility] [address] [place] [address]
--- OUTSIDE RECORDS SUMMARY | 2024-01-23 13:05 | External Medical Summary ---
Author Name Unknown Address Unknown Organization [facility] [place] [address] Laboratory Report Ordering Provider Test Date Status RICHARD BEYER 08/03/2023 14:04:18 Final Observation Date Value Abnormality Reference (Units ) Status WBC, Total 08/03/2023 14:04:18 7.45 4.00-10.8 0 (K/uL) Final RBC 08/03/2023 14:04:18 4.40 3.85-5.15 (M/uL) Final Hemoglobin 08/03/2023 14:04:18 12.6 12.0-15.3 (g/dL) Final HCT 08/03/2023 14:04:18 37.6 36.0-45.2 (%) Final MCV 08/03/2023 14:04:18 85.5 81.5-97.5 (fL) Final MCH 08/03/2023 14:04:18 28.6 27.0-34.0 (pg) Final MCHC 08/03/2023 14:04:18 33.5 32.0-36.0 (g/dL) Final RDW 08/03/2023 14:04:18 14.6 11.5-15.5 (%) Final Platelets 08/03/2023 14:04:18 283 140-400 (K /uL) Final MPV 08/03/2023 14:04:18 10.4 6.6-11.1 ( fL) Final Performing Location [facility] [place] [address]
--- OUTSIDE RECORDS SUMMARY | 2024-01-23 13:05 | External Medical Summary ---
Author Name Unknown Address Unknown Organization [facility] [address] [place] [address] Laboratory Report Ordering Provider Test Date Status LASHON VASQUEZ 08/03/2023 14:04:18 Final Observation Date Value Abnormality Reference (Units ) Status Color of Urine by Auto 08/03/2023 14:04:18 Yellow Light Yellow, Yellow, Dark Yellow Final Clarity, Urine 08/03/2023 14:04:18 Clear Clear Final Glucose [Mass/volume] in Urine by Automated test strip 08/03/2023 14:04:18 Negative Negative (mg/dL) Final Bilirubin.total [Presence] in Urine by Automated test strip 08/03/2023 14:04:18 Negative Negative Final Ketones [Mass/volume] in Urine by Automated test strip 08/03/2023 14:04:18 Negative Negative (mg/dL) Final Specific gravity, Urine 08/03/2023 14:04:18 1.010 1.003-1.030 Final Hemoglobin [Presence] in Urine by Automated test strip 08/03/2023 14:04:18 Negative Negative Final pH, Urine 08/03/2023 14:04:18 6.0 5.0-7.5 (Units) Final Protein [Mass/volume] in Urine by Automated test strip 08/03/2023 14:04:18 Negative Negative (mg/dL) Final Urobilinogen [Mass/volume] in Urine by Automated test strip 08/03/2023 14:04:18 0.2 0.2, 1.0 (mg/dL) Final Nitrite [Presence] in Urine by Automated test strip 08/03/2023 14:04:18 Negative Negative Final Leukocyte esterase [Presence] in Urine by Automated test strip 08/03/2023 14:04:18 Negative Negative Final RBC, Urine 08/03/2023 14:04:18 0-2 0-2 (/HPF) Final WBC, Urine 08/03/2023 14:04:18 0-2 0-2 (/HPF) Final Bacteria [#/area] in Urine sediment by Microscopy high power field 08/03/2023 14:04:18 0-25 0-25 (/HPF) Final Performing Location [facility] [address] [place] [address]
--- OUTSIDE RECORDS SUMMARY | 2024-01-23 13:05 | External Medical Summary | Summary of Care ---
Author Name Unknown Organization [facility] Address [address] [place] [address] Phone [phone] Care Team Providers Care Advanced Registered Nurse Name Role Phone Orlin Castro MD Primary Care Provider + Reason for Visit * Reason Comments Hypertension Encounter Details Date Type Department Care Team (Late st Contact Info) Description 08/03/2023 1:40 PM EST Office Visit [facility] [address] [place] [address] Galindo Jean MD [address] [facility] [place] [address] Stage 3a chronic kidney disease (HCC)*; Type 2 diabetes mellitus with hemoglobin A1c goal of less than 7.0% (HCC); HTN, goal below 140/80; Type 2 diabetes mellitus with diabetic chronic kidney disease, unspecified CKD stage, 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 90 Tab 3 03/07/2021 Active [employer] Verio Flex System w/Device Kit Use as directed. To test blood sugars up to 4 times a day Dx E11.22 1 Kit 0 04/03/2021 Active Misc. Devices Laryngectomy tube, size 10LGT 3 Each 0 07/29/2021 Active Misc. Devices Velcro Trach Ties for Laryngectomy Tube 15 Each 11 07/29/2021 Active Compressor NebulizerIndication s:COPD, group B, by GOLD 2017 classification ([facility]) Inhale via nebulizer . Use as directed. 1 Each 1 12/30/2021 Active Ipratropium-Albuter ol 0.5-2.5 (3) MG/3ML Inhalation Solution (Duoneb)Indications :COPD, group B, by GOLD 2017 classification ([facility]) Inhale via nebulizer 3 mL every 6 [...] Tablet 3 09/04/2022 09/11/19 24 Active Tiotropium [place] Monohydrate 2.5 MCG/ACT Inhalation Aerosol Solution (Spiriva Respimat)Indication s:COPD, group B, by GOLD 2017 classification ([facility]) INHALE 2 PUFFS BY MOUTH IN THE MORNING 12 g 3 08/07/2022 10/06/19 24 Active Additional Information Patient taking differently:2 Puff Inhalation Daily(AM),Hasn't started it yet, Reported on 08/12/2022 Beclomethasone Diprop HFA 80 MCG/ACT Inhalation Aerosol Breath Activated (Qvar RediHaler)Indicatio ns:COPD, group B, by GOLD 2017 classification ([facility]) INHALE 1 PUFF IN THE MORNING AND 1 PUFF BEFORE BEDTIME 31.8 g 3 08/07/2022 08/07/19 24 Active Additional Information Patient taking differently:1 Puff Inhalation BID (.AM/PM),Hasn't started it yet, Reported on 08/12/2022 OneTouch Vermiguel In Vitro Strip (Glucose Blood)Indications:T ype 2 diabetes mellitus with hemoglobin A1c goal of less than 7.0% ([facility]) Use to test blood glucose 4 times [...] goal of less than 7.0% ([facility]) Take 1 Tablet by mouth 2 times [...] Sign Reading Time Taken Comments Blood Pressure 138/79 08/03/2023 1:36 PM EST Pulse 60 08/03/2023 1:36 PM EST Temperature 36.1 C (96.9 F) 08/03/2023 1:32 PM ES T Respiratory Rate 20 08/03/2023 1:32 PM EST Oxygen Saturation 96% 08/03/2023 1:32 PM EST Inhaled Oxygen Concentration - - Weight 76.2 kg (168 lb) 08/03/2023 1:32 PM EST Height - - Body Mass Index 28.84 07/02/2023 11:56 AM EST documented in this encounter Functional [...] Progress Notes * Galindo Jean MD - 08/03/2023 2:00 PM EST Chief Complaint Patient presents with Hypertension HPI: 67-year-old female was at high blood pressure for [...] history of kidney disease. Since last visit 2021--- multiple hospital admissions in 2022 for respiratory issues most recently in June 2023. Kidney function does fluctuate because of acute intermittent illnesses At thistime she feels completely normal. Denies nausea vomiting chest pain shortness of breath orthopnea PND or lower extremity edema. NSAID No Renal Stone No Herbal Medication No Urinary Complaints No Current Outpatient Medications Medication Sig Dispense Refill Vitamin B-12 1000 MCG Oral Tablet Take 1 Tab by mouth daily. 90 Tab 3 Ipratropium-Albuterol 0.5-2.5 (3) MG/3ML Inhalation Solution (Duoneb) Inhale via nebulizer 3 mL every 6 hours as needed for Wheezing. 360 mL 1 Formoterol Fumarate 20 MCG/2ML Inhalation Nebulization Solution [...] AND EVENING MEALS 180 Tablet 3 Tiotropium London Monohydrate 2.5 MCG/ACT Inhalation Aerosol Solution (Spiriva [...] Hasn't started it yet.) 31.8 g 3 Levothyroxine Sodium 200 MCG Oral Tablet (Levoxyl) TAKE 1 TABLET BY MOUTH DAILY AT LEAST 30 MINUTESPRIOR TO FIRST MEAL OF THE DAY OR OTHER MEDICATIONS 90 Tablet 3 metFORMIN HCl ER 500 [...] 1 Tablet before bedtime. 360 Tablet 3 ONETOUCH DELICA LANCETS [place] [facility] [place] Use to test blood sugar 4 times daily dx e11.9 400 Each 3 [facility]. Devices [facility] [place] Tracheostomy Care Kit #4601 1 Each 0 OneTouch Verio Flex System w/Device Kit Use as directed. To test blood sugars up to 4 times a day Dx E11.22 1 Kit 0 [facility]. Devices Laryngectomy tube, size 10LGT 3 Each 0 [facility]. Devices Velcro Trach Ties for Laryngectomy Tube 15 Each 11 Compressor Nebulizer Inhale via nebulizer . Use as directed. 1 Each 1 Breathe Comfort Humidifier Use as directed. Laryngectomy status. Use for humidification to Trach site 1 Each 2 Sodium Chloride 7 % Inhalation Nebulization Solution (Hyper-Allen) 4 ML VIA NEBULIZER TWICE DAILY FORRESP. FOR 1 WEEK ONLY USE FOR 1 WEEK OneTouch Verio In Vitro Strip (Glucose Blood) Use to test blood glucose 4 times daily. DX: E11.9 400 Strip 3 Misc. Devices Electrolarynx Medically necessary 1 Each 0 predniSONE 20 MG Oral Tablet (Deltasone) Take 3 tabs for 3 days, 2 tabs for 3 days, 1 tab for 3 days, 1/2 tab for 3 days (Patient not taking: Reported on 08/03/2023) 20 Tablet 0 No current facility-administered medications [...] < 140/90 03/10/2019 Incisional hernia 12/15/2021 Dr Aauysh Estrella Insomnia, unspecified Lumbago 1970 chronic since [...] Dr Allen & Dr ESCOBEDO at ENDOSCOPY [facility] ANESTH, UPPER GI ENDOSCOPIC PROCS 08/18/2010 ANESTHESIA FOR UPPER GI ENDOSCOPIC PROCEDURES (ERCP OR UPPER GI) performed by ALICIA MATHEWS at ENDOSCOPY [facility] BREAST BIOPSY Left Benign BREAST BIOPSY Left Benign BREAST BIOPSY Left Benign COLONOSCOPY, DIAGNOSTIC (RECTUM) 09/10/2011 COLONOSCOPY FLEXIBLE PROXIMAL DIAGNOSTIC performed by ALICIA MATHEWS at ENDOSCOPY [facility] COLONOSCOPY, DIAGNOSTIC (RECTUM) 01/13/2012 COLONOSCOPY FLEXIBLE PROXIMAL DIAGNOSTIC performed by Alicia Mathews DO at ENDOSCOPY [facility] COLONOSCOPY, DIAGNOSTIC (RECTUM) 07/21/2012 COLONOSCOPY FLEXIBLE PROXIMAL DIAGNOSTIC performed by Alicia Mathews DO at ENDOSCOPY [facility] COLONOSCOPY, DIAGNOSTIC (RECTUM) 01/13/2013 COLONOSCOPY FLEXIBLE PROXIMAL DIAGNOSTIC performed by Alicia Mathews DO at ENDOSCOPY [facility] COLONOSCOPY, DIAGNOSTIC (RECTUM) 01/19/2014 COLONOSCOPY FLEXIBLE PROXIMAL DIAGNOSTIC performed by Alicia Mathews DO at ENDOSCOPY [facility] COLONOSCOPY, DIAGNOSTIC (RECTUM) N/A 09/27/2014 COLONOSCOPY FLEXIBLE PROXIMAL DIAGNOSTIC performed by Alicia Mathews DO at ENDOSCOPY [facility] COLONOSCOPY, DIAGNOSTIC (RECTUM) N/A 03/15/2015 COLONOSCOPY FLEXIBLE PROXIMAL DIAGNOSTIC performed by Alicia Mathews DO at END[facility]COPY [facility] COLONOSCOPY, DIAGNOSTIC (RECTUM) N/A 06/13/2015 COLONOSCOPY FLEXIBLE PROXIMAL DIAGNOSTIC performed by Alicia Mathews DO at [facility] COLONOSCOPY, DIAGNOSTIC (RECTUM) 04/08/2016 normal/inpt [facility] COLONOSCOPY, DIAGNOSTIC (RECTUM) 07/02/2017 COLONOSCOPY FLEXIBLE PROXIMAL DIAGNOSTIC performed by Alicia Mathews DO at ENDOSCOPY [facility] COLONOSCOPY, DIAGNOSTIC (RECTUM) N/A 08/30/2018 COLONOSCOPY FLEXIBLE PROXIMAL DIAGNOSTIC performed by Alicia Mathews DO at [facility] COLONOSCOPY, DIAGNOSTIC (RECTUM) 12/03/2021 benign adenomatous polyps, repeat 1 yr / [facility] COLONOSCOPY, DIAGNOSTIC (RECTUM) 12/17/2022 adenomatous polyp, repeat 1 yr / [facility] EGD, FLEXIBLE, DIAGNOSTIC 09/10/2011 UPPER GI ENDOSCOPY DIAGNOSTIC performed by ALICIA MATHEWS at [facility]COPY [facility] EGD, FLEXIBLE, DIAGNOSTIC 07/21/2012 UPPER GI ENDOSCOPY DIAGNOSTIC performed by Alicia Mathews DO at END[facility]COPY [facility] EGD, FLEXIBLE, DIAGNOSTIC N/A 05/14/2016 ESOPHAGOGASTRODUODENOSCOPY (EGD), FLEXIBLE, TRANSORAL, DIAGNOSTIC performed by Alicia Mathews DO at ENDOSCOPY [facility] EGD, FLEXIBLE, DIAGNOSTIC 04/08/2016 anastamotic ulcer/inpt [facility] EGD, FLEXIBLE, DIAGNOSTIC N/A 07/02/2017 ESOPHAGOGASTRODUODENOSCOPY (EGD), FLEXIBLE, TRANSORAL, DIAGNOSTIC performed by Alicia Mathews DO at END[facility]COPY [facility] EGD, FLEXIBLE, DIAGNOSTIC N/A 08/30/2018 ESOPHAGOGASTRODUODENOSCOPY (EGD), FLEXIBLE, TRANSORAL, DIAGNOSTIC performed by Alicia Mathews DO at END[facility]COPY [facility] EGD, FLEXIBLE, DIAGNOSTIC 12/03/2021 normal, repeat 1 yr / [facility] EGD, FLEXIBLE, DIAGNOSTIC 12/17/2022 normal, repeat 1 yr / [facility] EGD, W/ENDOSCOPIC US 08/11/2012 UPPER GI ENDOSCOPY ENDOSCOPIC ULTRASOUND performed by Garcia Casey MD at ENDOSCOPY [facility] EGD, W/ENDOSCOPIC US 11/04/2012 UPPER GI ENDOSCOPY ENDOSCOPIC ULTRASOUND performed by Garcia Casey MD at ENDOSCOPY [facility] EGD, W/ENDOSCOPIC US N/A 05/08/2021 ESOPHAGOGASTRODUODENOSCOPY (EGD), FLEXIBLE, TRANSORAL, ENDOSCOPIC ULTRASOUND performed by Jane Gutierrez MD at ENDOSCOPY [facility] ERCP, DIAGNOSTIC, SPECIMEN COLLECTION 09/14/2012 ENDOSCOPIC RETROGRADE CHOLANGIOPANCREATOGRAPHY DIAGNOSTIC performed by Garcia Casey MD at END[facility]COPY [facility] ERCP, DIAGNOSTIC, SPECIMEN COLLECTION 11/04/2012 ENDOSCOPIC RETROGRADE CHOLANGIOPANCREATOGRAPHY DIAGNOSTIC performed by Garcia Casey MD at END[facility]COPY [facility] MAINE FLEX SIGMOID DIAGNOSITIC N/A 09/18/2019 SIGMOIDOSCOPY FLEXIBLE DIAGNOSTIC performed by Alicia Mathews DO at ENDOSCOPY [facility] MUSCLE/FASCIA DEBRIDEMENT, FIRST 20 CM2 N/A 11/29/2020 DEBRIDEMENT SKIN SUBCUTANEOUS TISSUE AND MUSCLE performed by Howard Montes De Oca DO at OR [facility] OTHER 2006 tracheostomy & laryngectomy REMOVAL OF COLON/ILEOSTOMY 1976 x3 REMOVAL OF THYROID GLAND 2006 Thyroidectomy REMOVE PANCREAS, PARTIAL (WHIPPLE) 06/17/2010 PANCREATECTOMY PROXIMAL WITH TOTAL DUODENECTOMY, Dr CIFUENTES REMOVE PANCREAS, PARTIAL (WHIPPLE) 12/02/2012 12/02/2012 PANCREATECTOMY PROXIMAL WITH SUBTOTAL DUODENECTOMY performed by Julio C Cifuentes MD at [facility] REPAIR INITIAL INCISIONAL OR VENTRAL HERNIA; REDUCIBLE 12/15/2021 done at [facility] by Dr Aayush Estrella REPAIR WINDPIPE OPENING, COMPLEX 06/02/2021 TRACHEOSTOMA REVISION WITH FLAP performed by Howard Montes De Oca DO at [facility] REPAIR WINDPIPE OPENING, SIMPLE N/A 08/07/2015 TRACHEOSTOMA REVISION SIMPLE performed by Howard Montes De Oca DO at OR [facility] REPAIR WINDPIPE OPENING, SIMPLE Bilateral 11/29/2020 TRACHEOSTOMA REVISION SIMPLE performed by Howard Montes De Oca DO at OR [facility] SIGMOIDOSCOPY, DIAGNOSTIC N/A 10/15/2020 SIGMOIDOSCOPY FLEXIBLE DIAGNOSTIC performed by Alicia Mathews DO at END[facility] SIGMOIDOSCOPY, DIAGNOSTIC N/A 04/29/2021 SIGMOIDOSCOPY FLEXIBLE DIAGNOSTIC performed by Monae Batista DO at END[facility] US GUIDED BREAST BIOPSY RIGHT Right Benign Review of patient's allergies indicates: Allergen Reactions Ambien [Zolpidem Tartrate] Psych complications Crestor [Rosuvastatin] Elevated lft Hctz [Hydrochlorothiazide] brenda Nsaids Other (Please comment) Gastric ulcer with anemia Family History Problem Relation Age of Onset [...] level: Not on file Occupational History 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: [employer] 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 Social Needs Financial [...] file Gets together: Not on file Attends tenriism service: Not on file Active member of [...] reviewed and negative OBJECTIVE: PHYSICAL EXAM: BP 138/79 (BP Site: Right Arm, BP Position: Sitting, BP Cuff Size: Regular) | Pulse 60 | Temp 36.1 C (96.9 F) | Resp 20 | Wt 76.2 kg (168 lb) | SpO2 96% | BMI 28.84 kg/m | BSA 1.86 m General: alert, healthy and no distress [...] lesions BP Readings from Last 4 Encounters: 08/03/23 138/79 07/02/23 104/68 03/18/23 142/82 03/15/23 167/90 Wt Readings from Last 4 Encounters: 08/03/23 76.2 kg (168 lb) 07/02/23 74.9 kg (165 lb 3.2 oz) 03/18/23 79.5 kg (175 lb 4.8 oz) 03/15/23 80.1 kg (176 lb 8 oz) Estimated body mass index is 28.84 kg/m as calculated from the following: Height as of 07/02/23: 1.626 m (5' 4"). Weight as of this encounter: 76.2 kg (168 lb). NEPH-FLOW Latest Ref Rng & Units 03/10/2019 [...] kidney disease) stage 3, GFR 30-59 ml/min ([facility]) (Primary) CKD stage 2 to 3 secondary to diabetes and hypertension which she has had for many years. Renal ultrasound already done and is normal. Last 2 urine test has been showing increasing proteinuria so maybe she does indeed have diabetic nephropathy Continue losartan for proteinuria reduction. She was briefly on Jardiance also which lowers proteinuria reduction but not now. Labs done was reviewed and is stable. Reviewed multiple hospitalization for respiratory issues in 2022 most recently June 2023. Did explain that given acute illnesses intermittently kidney function does fluctuate HTN, goal below 140/80 At goal. Continue current regimen of first-line agents including amlodipine carvedilol losartan. Used to be on hydrochlorothiazide that she no longer takes. Type 2 diabetes mellitus with hemoglobin A1c goal of less than 7.0% ([facility]) At goal on current agent metformin and Prandin. Has been off and on on Jardiance--defer that to PCP Advised her to make sure she drinks plenty of water - CBC WITH WBC DIFFERENTIAL; Future; Expected date: 08/03/2023 - PROTEIN/ CREATININE RATIO, URINE; Future; Expected date: 08/03/2023 - RENAL FUNCTION PANEL; Future; Expected date: 08/03/2023 - URINALYSIS WITH MICROSCOPIC EXAM; Future; Expected date: 08/03/2023 - 25-HYDROXY VITAMIN D; Future; Expected date: 08/03/2023 Follow Up: Return in about 6 months (around 02/01/2024) for Clinic Visit. | For: Clinic Visit Galindo Jean MD documented in this encounter Nursing Notes * Raiza Gonzales RN - 08/03/2023 1:35 PM EST Follow up visit today. No recent illness or hospital stays. Has been trach dependent since 2006. documented in this encounter Plan of Treatment Upcoming Encounters Date Type Department Care Team (Late st Contact Info) Description 08/25/2023 9:30 AM EST Office Visit Orthopaedics [facility] [address] [place] [address] Javon Bunn, [address] [place] [address] 09/08/2023 9:40 AM EST Office Visit Pulmonary Medicine, [facility] [address] [place] [place] [address] Perfecto Contreras MD [address] [place] [address] 09/30/2023 10:10 AM EDT Pharmacy Pharmacy, [facility] [address] [place] [address] Pharmacist1, [facility] [address] [facility] [address] 09/30/2023 10:40 AM EDT Office Visit General Internal Medicine [facility] [address] [facility] [place] [address] Orlin Castro MD [address] [facility] [place] [address] 10/05/2023 3:30 PM EDT Office Visit Dermatology [facility] [address] [facility] [place] [address] Ling Capellan PA-Han [address] [place] [address] 11/30/2023 9:30 AM EDT Imaging Radiology [facility] [address] [facility] [address] [facility] [place] [address] 02/17/2024 7:50 AM EDT Office Visit Optometry, [facility] [address] [place] [address] Ari Staley, Rancho Bullard OD [address] [place] [address] 03/27/2024 8:40 AM EDT Office Visit Endocrinology, [facility] [address] [place] [address] Nhung Monzon MD [address] [place] [address] 05/08/2024 11:20 AM EST Office Visit Nephrology, [facility] [address] [place] [address] Galindo Jean MD [address] [facility] [place] [address] Pending Results Name Type Priority Associated Diagnoses Date /Time PROTEIN/ CREATININE RATIO, URINE Lab Routine Stage 3a chronic kidney disease (HCC) 08/03/2023 2:04 PM EST RENAL FUNCTION PANEL Lab Routine Stage 3a chronic kidney disease (HCC) 08/03/2023 2:04 PM EST URINALYSIS WITH MICROSCOPIC EXAM Lab Routine Stage 3a chronic kidney disease (HCC) 08/03/2023 2:04 PM EST Scheduled Orders Name Type Priority Associated Diagnoses Orde r Schedule PROTEIN/ CREATININE RATIO, URINE Lab Routine Stage 3a chronic kidney disease (HCC) Expected: 08/03/2023 (Approximate), Expires: 01/30/2024 RENAL FUNCTION PANEL Lab Routine Stage 3a chronic kidney disease (HCC) Expected: 08/03/2023 (Approximate), Expires: 01/30/2024 URINALYSIS WITH MICROSCOPIC EXAM Lab Routine Stage 3a chronic kidney disease (HCC) Expected: 08/03/2023 (Approximate), Expires: 01/30/2024 25-HYDROXY VITAMIN D Lab Routine Stage 3a chronic kidney disease (HCC) Expected: 08/03/2023 (Approximate), Expires: 01/30/2024 Scheduled Procedures Name Priority Associated Diagnoses Date/Ti [...] this encounter Medical Devices Implanted Type Area Inspector Packager Device Identifier Shelf Expiration Date Model / Serial / Lot Stent 10fr 7cm - [id number] Implanted:Qty: 1 on 06/17/2010 at [facility] COOK : RADHA [place] 01/15/2013 [id number] / / [id number] Description:pancreas documented as of this encounter Visit Diagnoses Diagnosis Stage 3a chronic kidney disease (HCC)- Primary Type 2 diabetes mellitus with hemoglobin A1c goal of less than 7.0% (HCC) HTN, goal below 140/80 Unspecified essential hypertension Type 2 diabetes mellitus with diabetic chronic kidney disease, unspecified CKD stage, 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 No Care Teams Advanced Registered Nurse Relationship Specialty Start Date End Date Orlin Castro MD [address] [facility] [place] [address] PCP - General Internal Medicine 04/27/19 documented as of this encounter
--- OUTSIDE RECORDS SUMMARY | 2024-01-23 13:05 | External Medical Summary | Summary of Care ---
Author Name Unknown Organization [facility] Address [address] [place] [address] Phone [phone] Care Team Providers Care Acute Care Clinical Nurse Specialist Name Role Phone Orlin Ramos MD Primary Care Provider + Reason for Visit * Reason Comments Medication Refill Encounter Details Date Type Department Care Team (Late st Contact Info) Description 07/23/2023 Refill General Internal Medicine [facility] [address] [facility] [place] [address] Orlin Ramos MD [address] [facility] [address] Gastritis, bile acid reflux Allergies Active Allergy Reactions Criticality Noted Date Comments Zolpidem Tartrate Psych complications 6 Rosuvastatin 04/05/2020 Elevated lft Hydrochlorothiazide 12/29/2019 brenda Nsaids Other (Please comment) 04/14/2016 Gastric ulcer with anemia documented as of this encounter (statuses as of 07/27/2023) Medications Medication Sig Dispensed Refills Start Date [...] 90 Tablet 3 3 10/18/19 24 Active Pantoprazole Sodium 40 MG Oral Tablet Delayed Release (Protonix) TAKE ONE TABLET BY MOUTH EVERY DAY 90 Tablet 3 3 09/10/19 24 Active Carvedilol 25 MG Oral Tablet (Coreg)Indications :HTN, goal below 140/90 TAKE ONE TABLET BY MOUTH 2 TIMES A DAY WITH MORNING AND EVENING MEALS 180 Tablet 3 3 09/11/19 24 Active Tiotropium [place] Monohydrate 2.5 MCG/ACT Inhalation Aerosol Solution (Spiriva Respimat)Indicatio ns:COPD, group B, by GOLD 2017 classification ([facility]) INHALE 2 PUFFS BY MOUTH IN THE MORNING 12 g 3 3 10/06/19 24 Active Additional Information Patient taking differently:2 Puff Inhalation Daily(AM),Hasn't started it yet, Reported on 08/12/2022 Beclomethasone Diprop HFA 80 MCG/ACT Inhalation Aerosol Breath Activated (Qvar RediHaler)Indicati ons:COPD, group B, by GOLD 2017 classification ([facility]) INHALE 1 PUFF IN THE MORNING AND 1 PUFF BEFORE BEDTIME 31.8 g 3 3 08/07/19 24 Active Additional Information Patient taking differently:1 Puff Inhalation BID (.AM/PM),Hasn't started it yet, Reported on 08/12/2022 [id number] In Vitro Strip (Glucose Blood)Indications: Type 2 [...] less than 7.0% ([facility]) Take 1 Tablet by mouth [...] before bedtime. 360 Tablet 3 4 Active Sucralfate 1 GM Oral Tablet (Carafate)Indicati ons:Gastritis, bile acid reflux Take by mouth 1 Tablet in the morning AND 1 Tablet at noon AND 1 Tablet in the evening AND 1 Tablet before bedtime. 360 Tablet 3 2 07/23/19 24 Discontinu ed(Refill) documented as of this encounter (statuses as of 07/27/2023) Active Problems Problem Noted Date Diagnosed Date [...] as of this encounter (statuses as of 07/27/2023) Resolved Problems Problem Noted Date Diagnosed Date [...] as of this encounter (statuses as of 07/27/2023) Immunizations Name Administration Dates Next Due COVID-19 [...] Miscellaneous Notes * Telephone Encounter - Orlin Ramos MD - 07/27/2023 3:19 PM ESTSigned Prescriptions: Disp Refills Sucralfate 1 GM Oral Tablet (Carafate) 360 Ta*3 Sig: Take by mouth 1 Tablet in the morning AND 1 Tablet at noon AND 1 Tablet in the evening AND 1 Tablet before bedtime. Authorizing Provider: ORLIN RAMOS * Telephone Encounter - Orlin Ramos MD - 07/27/2023 3:19 PM ESTSigned Prescriptions: Disp Refills Sucralfate 1 GM Oral Tablet (Carafate) 360 Ta*3 Sig: Take by mouth 1 Tablet in the morning AND 1 Tablet at noon AND 1 Tablet in the evening AND 1 Tablet before bedtime. Authorizing Provider: ORLIN RAMOS * Telephone Encounter - Andreia Martínez CPhT - 07/27/2023 2:25 PM EST Did you pend patient's preferred pharmacy and medication before forwarding?yes Pharmacy: [facility] Pending Prescriptions: Disp Refills Sucralfate 1 GM Oral Tablet (Carafate) 360 Ta*3 Sig: Take by mouth 1 Tablet in the morning AND 1 Tablet at noon AND 1 Tablet in the evening AND 1 Tablet before bedtime. Last Visit: 07/02/2023 (in office), Visit date not found (telemedicine) Next Visit: 09/30/2023 If no future appointments scheduled, and last appointment is greater than a year ago, please schedule patient for a follow-up appointment Last date the medication was ordered: 11/03/21 Is this request for a controlled substance?No Urine Drug Screen:No results found. However, due to the size of the patient record, not all encounters were searched. Please check Results Review for a complete set of results. Patient Phone Numbers Labs: Lab Results Component Value Date/Time CREAT 1.4 (H) 07/02/2023 12:29 PM CREAT 1.2 (H) 05/01/2020 10:54 AM POTASSIUM 4.2 07/02/2023 12:29 PM POTASSIUM 4.3 05/01/2020 10:54 AM TSH 2.04 03/15/2023 10:29 AM TSH 4.84 (H) 07/24/2020 10:20 AM LDLCALC 95 10/26/2022 12:28 PM LDLCALC 57 07/24/2020 10:20 AM LDLDIRECT NOT APPLICABLE 07/24/2020 10:20 AM LDLDIRECT 86 12/09/2018 08:53 AM ALT 32 06/02/2023 09:53 AM ALT 20 07/24/2020 10:20 AM HGBA1C 7.1 (H) 05/31/2023 10:31 AM HGBA1C 6.8 (H) 07/24/2020 10:20 AM documented in this encounter Plan of Treatment Upcoming Encounters Date Type Department Care Team (Late st Contact Info) Description 08/25/2023 9:30 AM EST Office Visit Orthopaedics [facility] [address] [facility] [place] [address] Javon Bunn DO [address] [facility] [place] [address] 09/08/2023 9:40 AM EST Office Visit Pulmonary Medicine, [facility] [address] [facility] [place] [address] Perfecto Contreras [facility] [address] [facility] [address] 09/30/2023 10:10 AM EDT Pharmacy Pharmacy, [facility] [address] [facility] [place] [address] [address], [facility] [address] [facility] [place] [address] 09/30/2023 10:40 AM EDT Office Visit General Internal Medicine [facility] [address] [facility] [place] [address] Orlin Ramos MD [address] [facility] [place] [address] 10/05/2023 3:30 PM EDT Office Visit Dermatology [facility] [address] [facility] [place] [address] Ling Capellan PA-Han [address] [facility] [place] [address] 11/30/2023 9:30 AM EDT Imaging Radiology [facility] [address] [facility] [address] [place] [address] 02/17/2024 7:50 AM EDT Office Visit Optometry, [place] [address] [place] [address] Rancho Chapman Jr., OD [address] [place] [address] 03/27/2024 8:40 AM EDT Office Visit Endocrinology, [place] [address] [place] [address] Nhung Monzon MD [address] [place], [place] [id number] 04/03/2024 1:40 PM EDT Office Visit Nephrology, [facility] [address] [facility] [place], [place] [address] Galindo Jean MD [address] [facility] [place] [address] Scheduled Procedures Name Priority Associated Diagnoses Date/Ti [...] FOR COPD 07/02/2024 07/02/2023 DXA Scan 05/12/2026 05/12/2022 Lipid Panel 10/27/2027 [...] this encounter Medical Devices Implanted Type Area Adjunct Lecturer Device Identifier Shelf Expiration Date Model / Serial / Lot Stent 10fr 7cm - [id number] Implanted:Qty: 1 on 06/17/2010 at [facility] COOK : RADHA [place] 01/15/2013 [id number] / / [id number] Description:pancreas documented as of this encounter Visit Diagnoses Diagnosis Gastritis, bile acid reflux Other specified gastritis without mention of hemorrhage documented in this encounter Advance Directives Latest [...] the patient have Health Care Power of Nib Adjuster? No Care Teams Acute Care Clinical Nurse Specialist Relationship Specialty Start Date End Date Orlin Ramos MD [address] [place] [address] PCP - General Internal Medicine 04/27/19 documented as of this encounter
--- OUTSIDE RECORDS SUMMARY | 2024-01-23 13:05 | External Medical Summary ---
Author Name Unknown Address Unknown Organization [id number]:[facility] [place] [address] Laboratory Report Ordering Provider Test Date Status RICHARD BEYER 08/03/2023 14:04:18 Final Observation Date Value Abnormality Reference (Units ) Status SYNC LEUKOCYTES IN BLOOD BY AUTOMATED COUNT 08/03/2023 14:04:18 7.45 4.00-10.80 (K/uL) Final Segs 08/03/2023 14:04:18 68.2 40.0-75.0 (%) Final Lymphs % 08/03/2023 14:04:18 19.3 18.0-42.0 (%) Final Monos 08/03/2023 14:04:18 8.7 1.0-11.0 (%) Final Eosinophils 08/03/2023 14:04:18 3.1 0.0-6.0 (%) Final Basos 08/03/2023 14:04:18 0.7 0.0-2.0 (%) Final Absolute Segs 08/03/2023 14:04:18 5.08 1.80-7.70 (K/uL) Final Lymphs, absolute 08/03/2023 14:04:18 1.44 1.00-4.80 (K/ul) Final Monos, Abs 08/03/2023 14:04:18 0.65 0.00-1.10 (K/uL) Final Eos, Abs 08/03/2023 14:04:18 0.23 0.00-0.70 (K/uL) Final Basos, Abs 08/03/2023 14:04:18 0.05 0.00-0.20 (K/uL) Final Performing Location [facility] [place] [address]
--- OUTSIDE RECORDS SUMMARY | 2024-01-23 13:05 | External Medical Summary ---
Author Name Unknown Address Unknown Organization [id number]:[facility] [address] [place] [address] Laboratory Report Ordering Provider Test Date Status LASHON VASQUEZ 08/03/2023 14:04:18 Final Normal: <150 mg/ g creatinine
High: 150-500 mg/g creatinine
Very High: >500 mg/g creatinine
Nephrotic: >3000 mg/g creatinine Observation Date Value Abnormality Reference (Units ) Status Protein/Creatinine [Ratio] in Urine 08/03/2023 14:04:18 132 <150 (mg/g ) Final Protein, Urine 08/03/2023 14:04:18 9 (mg/dL) Final Creatinine, Urine 08/03/2023 14:04:18 68 (mg/dL) Final Performing Location [facility] - [address] [place] [address]
--- OUTSIDE RECORDS SUMMARY | 2024-01-23 13:05 | External Medical Summary ---
Author Name Unknown Address Unknown Organization K09:[facility] [address] [place] [address] Laboratory Report Ordering Provider Test Date Status RICHARD BEYER 08/03/2023 14:04:18 Final Observation Date Value Abnormality Reference (Units ) Status AST (Aspartate aminotransferase) 08/03/2023 14:04:18 96 Above high normal 10-35 (U/L) Final Performing Location [facility] [place] [address]
--- OUTSIDE RECORDS SUMMARY | 2024-01-23 13:05 | External Medical Summary ---
Author Name Unknown Address Unknown Organization K09:[facility] [address] [place] [address] Laboratory Report Ordering Provider Test Date Status RICHARD BEYER 08/03/2023 14:04:18 Final Observation Date Value Abnormality Reference (Units ) Status Bilirubin, Total 08/03/2023 14:04:18 0.3 <=1 .2 (mg/dL) Final Performing Location [facility] [place] [address]
--- OUTSIDE RECORDS SUMMARY | 2024-01-23 13:05 | External Medical Summary ---
Author Name Unknown Address Unknown Organization K09:[facility] [place] [address] Laboratory Report Ordering Provider Test Date Status LASHON VASQUEZ 08/03/2023 14:04:18 Final Observation Date Value Abnormality Reference (Units ) Status BUN 08/03/2023 14:04:18 51 Above high normal 6-20 (mg/dL) Final Creatinine 08/03/2023 14:04:18 1.1 Above high normal 0.5-1.0 (mg/dL) Final Glomerular filtration rate/1.73 sq M.predicted [Volume Rate/Area] in Serum, Plasma or Blood by Creatinine-based formula (CKD-EPI) 08/03/2023 14:04:18 54 Below low normal >=60 (mL/min) Final eGFR is calculated based on the CKD-EPI 2020 equation SODIUM 08/03/2023 14:04:18 136 135-146 (m mol/L) Final Potassium 08/03/2023 14:04:18 5.5 Above high normal 3. 5-5.1 (mmol/L) Final Cl 08/03/2023 14:04:18 107 98-107 (mm ol/L) Final CO2 08/03/2023 14:04:18 17 Below low normal 22- 32 (mmol/L) Final Anion gap 08/03/2023 14:04:18 12 7-15 (mmol /L) Final Glucose 08/03/2023 14:04:18 99 70-120 (mg /dL) Final Calcium 08/03/2023 14:04:18 8.7 8.4-10.2 ( mg/dL) Final Albumin 08/03/2023 14:04:18 4.0 3.8-5.0 (g /dL) Final Phosphate 08/03/2023 14:04:18 3.7 2.5-4.8 (m g/dL) Final Performing Location [facility] [place] [address]
--- OUTSIDE RECORDS SUMMARY | 2024-01-23 13:05 | External Medical Summary ---
Author Name Unknown Address Unknown Organization K09:[facility] [place] [address] Laboratory Report Ordering Provider Test Date Status RICHARD BEYER 08/03/2023 14:04:18 Final Observation Date Value Abnormality Reference (Units ) Status Alk Phos 08/03/2023 14:04:18 155 Above high normal 35 -130 (U/L) Final Performing Location [facility] [place] [address]
--- NOTE | 2024-01-23 13:10 | Emergency Department Note ---
Impression & Plan Acute exacerbation of chronic obstructive airways disease, Hypoxia ED Provider Note Provider: Nader Ricks MD DATE OF SERVICE: 01/23/2024 CHIEF COMPLAINT: Breathing difficulty HISTORY OF PRESENT ILLNESS: Patient is a 68-year-old female past medical history of pancreatic and throat cancer status post Whipple and laryngectomy presenting here today via ambulance from her home. Reports since Wednesday has had some worsening breathing issues. Saw her doctor on Wednesday and started on Augmentin. Not having any improvement. No fevers reported but chest congestion she having difficulty bringing anything up. Denies any abdominal pain, nausea, vomiting, or diarrhea. Maybe a little bit of swelling in the legs earlier in the week but this is resolved and does not seem significantly bad. No sick contact. No travel. Denies headache. Try to use her home breathing treatments without much improvement of the little improvement with the breathing treatment for EMS and route. Denies chest pain. Is working to breathe. Has had some sputum from trach appliance which she brings with her. PAST MEDICAL HISTORY: As noted above MEDICATIONS: Reviewed home medications not on home oxygen SOCIAL HISTORY: Former smoker PHYSICAL EXAM: GENERAL: alert and oriented on stretcher some increased work of breathing appreciable Head: normocephalic and atraumatic EYES: No injection, discharge or icterus. EOMI. NECK: Trachea midline. Supple with anterior trach stoma present anterior neck well-healed without stridor or whistle ENT: Mucous membranes pink and moist. LUNGS: Airway patent. Diffuse expiratory wheeze. Increased work of breathing appreciable. HEART: Regular rate and rhythm. No chest wall tenderness ABDOMEN: Soft and non-tender, without guarding or rebound. SKIN: Acyanotic, warm, dry, without rashes EXTREMITIES: Without swelling, tenderness or deformity NEUROLOGICAL: No focal deficits moving all extremities. Communicates with electrolarynx and answers appropriately. No obvious facial droop notable. EK bpm normal sinus rhythm. No PVC or PAC. No acute ST segment elevation or depression with a QTc of 464. CONTINUOUS CARDIAC MONITORING: was ordered and showed a heart rate of 70s bpm in normal sinus rhythm Patient's laboratory studies and imaging reviewed. Differential includes Reactive airway disease, pneumonia, pneumothorax, COPD, CHF, infections, cardiac ischemia, pulmonary embolism, musculoskeletal, gastrointestinal, as well as other pathologies. IMPRESSION/MEDICAL DECISION MAKING: History of COPD as well as significant for prior laryngectomy. Wheezy on exam. Given steroid and DuoNeb here. Ordered some Mucinex as she endorses chest congestion. Oxygen level somewhat borderline. Respiratory assisted with sputum culture and will monitor for slight oxygen supplementation. No significant leg swelling or calf tenderness and doubt DVT/PE. Seems consistent with reactive airway disease. Has been Augmentin for several days. No fevers reported. Respiratory viral panel sent and x-ray obtained. Laboratory studies including procalcitonin ordered. She does not appear hypotensive however or febrile and lower suspicion for sepsis. VBG checked but does not seem significantly altered or encephalopathic. Blood work here without anemia or leukocytosis. VBG without acidosis or hypercarbia. Some hyponatremia 131 with normal renal function and normal potassium. Alkaline phosphatase elevated at 206 but appears chronic without other LFT abnormalities. Chest x-ray per radiology without findings of pneumonia pneumothorax or fluid overload. Procalcitonin not significantly elevated at 0.09. As such I will hold off on broad-spectrum antibiotics at this time but will add atypical coverage with a dose of azithromycin here. Troponin normal. Minimal improvement after nebulizer and still wheezy. Will give additional but is requiring oxygen supplementation at this time. Again low suspicion for PE. Discussed with pharmacist and will cover with ceftriaxone as well as azithromycin for atypical coverage although again not clearly pneumonia but certainly with comorbidities could have a tracheitis. Sputum culture without organisms visualized on Gram stain. Culture pending. Respiratory viral panel does return positive for COVID. She is vaccinated but no prior history of COVID. Likely explains symptomatologies. With the hypoxia and this will give some dexamethasone. Has been failing outpatient therapies and home therapies at this time and given her comorbidities and significance of exacerbation and need for oxygen, will bring her in for continued respiratory therapy and care. Patient agreeable and hospitalist contacted. DIAGNOSIS: Acute COPD exacerbation, hypoxia, COVID-19 DISPOSITION: Hospitalist will evaluate Patient was agreeable with this plan. Past Med/Surg History Problem List (Updated 01/23/24 @ 14:16 by Nader Ricks M.D.) Acute exacerbation of chronic obstructive airways disease (Acute) Sepsis Hypoxia (Acute) COPD exacerbation (Acute) Tracheobronchitis, acute or subacute, with bronchospasm or obstruction (Acute) Profound anemia Tracheostomy in place Encounter for pre-operative examination Familial adenomatous polyposis Hypertensive urgency Acute exacerbation of chronic obstructive pulmonary disease (COPD) Hypoxia (Acute) Hypertension (Acute) SOB (shortness of breath) (Acute) Wheezing (Acute) ALONA (acute kidney injury) (Acute) Metabolic acidosis Asthma exacerbation Acute kidney injury H/O deep venous thrombosis Psoriasis Hypoxia (Acute) URI (upper respiratory infection) Status post tracheostomy Acute and chronic respiratory failure with hypoxia COPD with acute exacerbation Acute bronchitis Multiple pulmonary nodules Osteoarthritis of knees, bilateral Stenosis of tracheal stoma CKD (chronic kidney disease), stage III Chronic obstructive pulmonary disease Diabetes History of Whipple procedure X 2-LAST 2012 Hyperlipidemia Hypertension History of thyroid cancer Papillary thyroid carcinoma (with throat cancer per patient) 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 S/p stomaplasty (11/2020) and tracheostoma revision (05/2021) S/p thyroidectomy No chemo or XRT History of throat cancer Dxed 2006- s/p laryngectomy with trach placement No chemo or XRT History of pancreatic cancer 2016 S/p Whipple procedure No chemo or XRT Hypoxia Medical History Adrenal adenoma Asthma Chronic obstructive pulmonary disease CKD (chronic kidney disease), stage III Coagulopathy Diabetes DVT (deep venous thrombosis) WITH SURGERY TRACH 2005-WAS ON BLOOD THINNER FOR A PERIOD OF TIME-THEN OFF-NO ISSUES SINCE History of colon cancer Dx'ed in 2002 (has familial adenomatous polyposis) S/p ileostomy and then J pouch procedure No chemo or XRT History of pancreatic cancer 2016 S/p Whipple procedure No chemo or XRT History of throat cancer Dxed 2006- s/p laryngectomy with trach placement No chemo or XRT History of thyroid cancer Papillary thyroid carcinoma (with throat cancer per patient) 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 S/p stomaplasty (11/2020) and tracheostoma revision (05/2021) S/p thyroidectomy No chemo or XRT Hyperlipidemia Hypertension Hypothyroidism associated with surgical procedure Hypoxia Murmur, cardiac F/U DR DEE ACEVEDO No murmur per routine 06/2021 cardio visit SOB (shortness of breath) on exertion 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 No current issues Surgical History History of bowel resection WITH J POUCH History of colonoscopy History of esophagogastroduodenoscopy (EGD) History of hernia repair 12/15/21 @ [facility] History of radical neck dissection WITH TRACHEOSTOMY-2004 History of thyroidectomy History of Whipple procedure X 2-LAST 2012 Family History Family/Other Heart disease Lung disease Cancer Father Family hx of colon cancer Sister Family hx of colon cancer Other No family history of adverse response to anesthesia Social History Smoking Status: Former smoker Tobacco Type: Cigarettes Second Hand Exposure: No; Do You Dip or Chew Tobacco: No; Hx Alcohol Use: No Hx Substance Use: No Preferred Language: Monegasque Communication Ability: Effective Communication Ability Comment: Patient uses a Cervox since she has 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 Veterinary Medical Officer Required: No Beliefs That Will Affect Care: None marital status: Current Living Situation: Alone current occupational status: disabled Feels Safe at Home: Yes Assistive Devices: Nebulizer and Other Allergies Allergies Allergy/AdvReac Type Severity Reaction Status Date / Time NSAIDS (Non-Steroidal Allergy Intermediate Ulcer & Verified 12/17/22 08:36 Anti-Inflamma anemia zolpidem [From Ambien] Allergy Mild pysch Verified 12/17/22 08:36 complications, dizzy hydrochlorothiazide AdvReac Intermediate Acute Verified 12/17/22 08:36 kidney injury rosuvastatin [From Crestor] AdvReac Intermediate Elavated Verified 12/17/22 08:36 liver function test Home Meds Home Medications Medication Instructions Recorded Confirmed losartan 100 mg tablet (Cozaar) 100 mg PO QAM 08/09/19 06/16/23 pantoprazole 40 mg tablet,delayed 40 mg PO QAM 08/09/19 06/16/23 release (Protonix) triamcinolone acetonide 0.1 % 1 appln topical BID 08/09/19 06/16/23 topical cream repaglinide 1 mg tablet 0.5 mg PO .PM SNACK 11/27/21 06/16/23 amlodipine 10 mg tablet 10 mg PO QAM 07/30/22 06/16/23 blood-glucose sensor (Dexcom G6 07/30/22 06/16/23 Sensor device) carvedilol 25 mg tablet 25 mg PO BID 07/30/22 06/16/23 clobetasol 0.05 % topical ointment 1 applic topical BID PRN flare ups 07/30/22 06/16/23 (Temovate) levothyroxine 200 mcg tablet 200 mcg PO QAM 07/30/22 06/16/23 metformin 1,000 mg tablet 1,000 mg PO BID 07/30/22 06/16/23 cyclobenzaprine 10 mg tablet 10 mg PO HS PRN Muscle Spasm 10/15/22 06/16/23 sucralfate 1 gram tablet 1 g PO ACHS 10/15/22 06/16/23 tiotropium bromide 2.5 2 inh inhalation QAM 10/15/22 06/16/23 mcg/actuation mist for inhalation (Spiriva Respimat) beclomethasone dipropionate 80 1 inh inhalation AMHS 06/16/23 06/16/23 mcg/actuation HFA breath activated aerosol (Qvar RediHaler) budesonide 0.25 mg/2 mL suspension 0.25 mg NEB DIRECTED PRN 06/16/23 06/16/23 for nebulization Shortness Of Breath Or Wheezing cyanocobalamin (vitamin B-12) 1,000 mcg PO DAILY 06/16/23 06/16/23 1,000 mcg tablet (Vitamin B-12) ezetimibe 10 mg tablet 10 mg PO QAM 06/16/23 06/16/23 formoterol fumarate 20 mcg/2 mL 20 mcg NEB BIDR PRN Shortness Of 06/16/23 06/16/23 solution for nebulization Breath Or Wheezing (Perforomist) ipratropium 0.5 mg-albuterol 3 mg 3 ml inhalation Q6 PRN Shortness 06/16/23 06/16/23 (2.5 mg base)/3 mL nebulization Of Breath Or Wheezing soln repaglinide 2 mg tablet 2 mg PO BIDM 06/16/23 06/16/23 Previous Rx's Medication Instructions Recorded potassium chloride 20 mEq 20 meq PO DAILY #15 tabs 06/20/23 tablet,extended release prednisone 20 mg tablet 20 mg PO UD #11 tabs 06/20/23 Results & Data (ED) Vital Signs Vital Signs - 24 hr 01/23/24 12:57 01/23/24 12:57 01/23/24 12:58 Temperature 37.2 C Temperature Source Oral Pulse Rate 79 74 Pulse Rate [Apical] Pulse Rhythm Respiratory Rate 33 H Respiratory Effort / Characteristics Respiratory Depth Deep Deep Respiratory Pattern Regular Blood Pressure 153/99 H Blood Pressure Mean 117 Pulse Oximetry 89 L Oxygen Delivery Method Room Air Oxygen Flow Rate Sepsis Recent Fever Within 48 Hours No Sepsis New/Unexplained Change in Mental Status No Sepsis Action Taken by Nursing No Action Required Oxygen Flow Rate - Titration Pulse Oximetry Post Tiitration 01/23/24 13:19 01/23/24 13:26 01/23/24 14:12 Temperature Temperature Source Pulse Rate 74 Pulse Rate [Apical] 69 Pulse Rhythm Regular Respiratory Rate 33 H 18 Respiratory Effort / Characteristics Spontaneous Respiratory Depth Respiratory Pattern Blood Pressure Blood Pressure Mean Pulse Oximetry 89 L 91 84 L Oxygen Delivery Method Room Air Room Air Trach Collar Oxygen Flow Rate 0 Sepsis Recent Fever Within 48 Hours Sepsis New/Unexplained Change in Mental Status Sepsis Action Taken by Nursing Oxygen Flow Rate - Titration 6 Pulse Oximetry Post Tiitration 95 Laboratory Data 01/23/24 13:06 01/23/24 13:06 Lab Results 01/23/24 01/23/24 Range/Units 13:06 13:21 WBC 9.09 (4.8-10.8) K/ul RBC 5.04 (4.20-5.40) M/uL Hgb 13.9 (12.0-16.0) g/dl Hct 40.7 (37.0-47.0) % MCV 80.8 (80.0-100.0) fL MCH 27.6 (25.0-34.0) pg MCHC 34.2 (32.0-36.0) g/dL RDW Std Deviation 39.2 (36.4-46.3) fL RDW Coeff of Monika 13.4 (11.5-14.5) % Plt Count 281 (130-400) K/uL MPV 9.8 (9.4-12.4) fL Immature Gran % (Auto) 0.2 % Neut % (Auto) 76.7 % Lymph % (Auto) 14.7 % Mcmullen % (Auto) 6.2 % Eos % (Auto) 1.8 % Baso % (Auto) 0.4 % Neut # (Auto) 6.97 H (1.40-6.50) K/uL Lymph # (Auto) 1.34 (1.20-3.40) K/uL Mcmullen # (Auto) 0.56 (0.11-0.59) K/uL Eos # (Auto) 0.16 (0.00-0.50) K/uL Baso # (Auto) 0.04 (0.00-0.20) K/uL Immature Gran # (Auto) 0.02 (0.01-0.20) K/uL PT 10.8 (9.0-12.0) Seconds INR 1.0 (0.9-1.1) VBG pH 7.44 H (7.36-7.41) VBG pCO2 40 (38-50) mmHg VBG pO2 38 mmHg VBG HCO3 27 mmol/L VBG O2 Saturation 72.0 % VBG Base Excess 2.8 mEq/L Sodium 131 L (136-145) mmol/L Potassium 3.9 (3.5-5.1) mmol/L Chloride 97 L (98-107) mmol/L Carbon Dioxide 26 (21-32) mmol/L Anion Gap 8 (3-11) BUN 17 (6-23) mg/dl Creatinine 1.09 (0.6-1.2) mg/dl Est Cr Clr Drug Dosing 52.9 ml/min Est GFR ( Amer) 60.8 ml/min Est GFR (Non-Af Amer) 52.5 ml/min BUN/Creatinine Ratio 15.6 (10-20) Glucose 224 H (70-99(Fasting)) mg/dl Calcium 8.8 (8.6-10.3) mg/dl Magnesium 1.7 (1.7-2.4) mg/dl Total Bilirubin 0.5 (0.2-1.0) mg/dl AST 35 (13-39) U/L ALT 46 (7-52) U/L Alkaline Phosphatase 206 H (34-104) U/L Troponin I High Sens 10.9 (0-14) pg/ml Total Protein 7.2 (6.0-8.3) gm/dl Albumin 3.9 (3.4-5.0) gm/dl Globulin 3.3 (2.5-4.0) gm/dl Albumin/Globulin Ratio 1.2 (0.9-2) Procalcitonin 0.09 (0-0.5) ng/ml Adenovirus (PCR) Not Detected (NotDetected) B. pertussis DNA (PCR) Not Detected (NotDetected) B.parapertussis DNA PCR Not Detected (NotDetected) C. pneumoniae DNA (PCR) Not Detected (NotDetected) Coronavirus OC43 (PCR) Not Detected (NotDetected) Coronavirus HKU1 (PCR) Not Detected (NotDetected) Coronavirus 229E (PCR) Not Detected (NotDetected) SARS-CoV-2 (PCR) DETECTED A (NotDetected) Coronavirus NL63 (PCR) Not Detected (NotDetected) Human Metapneumovir PCR Not Detected (NotDetected) Influenza Type A (PCR) Not Detected (NotDetected) Influenza Type B (PCR) Not Detected (NotDetected) M. pneumoniae (PCR) Not Detected (NotDetected) Parainfluenza 1 (PCR) Not Detected (NotDetected) Parainfluenza 2 (PCR) Not Detected (NotDetected) Parainfluenza 3 (PCR) Not Detected (NotDetected) Parainfluenza 4 (PCR) Not Detected (NotDetected) RSV (PCR) Not Detected (NotDetected) Entero/Rhino (PCR) Not Detected (NotDetected) Administered Medications Discontinued Medications Albuterol (Albut/Ipratrop 3mg/0.5mg Neb 3 Ml Vial) 12 ml INH ONE STA Stop: 01/23/24 13:00 Last Admin: 01/23/24 13:25 Dose: 12 ml Documented By: ISELA Guaifenesin (Guaifenesin 600 Mg Tabcr) 1,200 mg PO Q12 STA Stop: 01/23/24 13:01 Last Admin: 01/23/24 13:13 Dose: 1,200 mg Documented By: MICHEL Methylprednisolone (Methylprednisolone 125 Mg/2 Ml Vial) 125 mg IV NOW STA Stop: 01/23/24 13:00 Last Admin: 01/23/24 13:13 Dose: 125 mg Documented By: MICHEL Imaging Data Radiologist's Impression: Chest X-Ray 01/23/24 12:59 XR chest 1V portable HISTORY: Dyspnea COMPARISON: Chest 06/16/2023. FINDINGS: The lungs are clear. Cardiac silhouette is normal in size. No pleural effusions. No pneumothorax. IMPRESSION: No acute process. ACT 112: Negative or not required by law. Electronically signed by: Nj Mercado M.D. 01/23/2024 1:44 PM Discharge Plan Visit Data Chief Complaint: Shortness of Breath/Dyspnea Stated Complaint: SOB ED Provider: Nader Ricks Discharge Problem: Acute exacerbation of chronic obstructive airways disease, Hypoxia Forms Stand Alone Forms: [facility] Prescriptions Prescriptions: No Action triamcinolone acetonide 0.1 % cream 1 appln TOP BID pantoprazole [Protonix] 40 mg tablet,delayed release (DR/EC) 40 mg PO QAM losartan [Cozaar] 100 mg tablet 100 mg PO QAM cyclobenzaprine 10 mg tablet 10 mg PO HS PRN (Reason: Muscle Spasm) sucralfate 1 gram tablet 1 g PO ACHS Spiriva Respimat 2.5 mcg/actuation mist 2 inh INHALATION QAM ipratropium-albuterol 0.5 mg-3 mg(2.5 mg base)/3 mL Solution For Nebulization 3 ml INHALATION Q6 PRN (Reason: Shortness Of Breath Or Wheezing) repaglinide 2 mg Tablet 2 mg PO BIDM Rx Instructions: TAKE WITH BREAKFAST & SUPPER budesonide 0.25 mg/2 mL suspension for nebulization 0.25 mg NEB DIRECTED PRN (Reason: Shortness Of Breath Or Wheezing) formoterol fumarate [Perforomist] 20 mcg/2 mL solution for nebulization 20 mcg NEB BIDR PRN (Reason: Shortness Of Breath Or Wheezing) cyanocobalamin (vitamin B-12) [Vitamin B-12] 1,000 mcg Tablet 1,000 mcg PO DAILY ezetimibe 10 mg tablet 10 mg PO QAM Qvar RediHaler 80 mcg/actuation HFA aerosol breath activated 1 inh INHALATION AMHS prednisone 20 mg tablet 20 mg PO UD Qty: 11 0RF Rx Instructions: 40 mg daily for 4 days, then 20 mg daily for 3 days. potassium chloride 20 mEq tablet extended release 20 meq PO DAILY Qty: 15 0RF repaglinide 1 mg Tablet 0.5 mg PO .PM SNACK carvedilol 25 mg tablet 25 mg PO BID levothyroxine 200 mcg tablet 200 mcg PO QAM clobetasol [Temovate] 0.05 % Ointment 1 applic TOPICAL BID PRN (Reason: flare ups) Rx Instructions: apply to affected areas on arms & feet. Start 07/21/2022. (DME) Dexcom G6 Sensor Device MISCELLANEOUS amlodipine 10 mg tablet 10 mg PO QAM metformin 1,000 mg tablet 1,000 mg PO BID Referrals Referrals: Orlin Castro MD [Primary Care Provider] -
[2024-01-23] MEDS: methylPREDNISolone 125 MG/2 ML VIAL IV STA (13:13)
[2024-01-23] MEDS: guaiFENesin 600 MG TABCR PO STA (13:13)
[2024-01-23 13:25] LABS: Basophils # (auto) 0.04 K/uL (0.00-0.20); Basophils % (auto) 0.4 %; Eosinophils # (auto) 0.16 K/uL (0.00-0.50); Eosinophils % (auto) 1.8 %; Hematocrit (blood only) 40.7 % (37.0-47.0); Hemoglobin 13.9 g/dl (12.0-16.0); Immature Granulocytes # (auto) 0.02 K/uL (0.01-0.20); Immature Granulocytes % (auto) 0.2 %; Lymphocytes # (auto) 1.34 K/uL (1.20-3.40); Lymphocytes % (auto) 14.7 %; Mean Corpuscular Hemoglobin 27.6 pg (25.0-34.0); Mean Corpuscular Hgb Conc 34.2 g/dL (32.0-36.0); Mean Corpuscular Volume 80.8 fL (80.0-100.0); Mean Platelet Volume 9.8 fL (9.4-12.4); Monocytes # (auto) 0.56 K/uL (0.11-0.59); Monocytes % (auto) 6.2 %; Neutrophils # (auto) 6.97 K/uL (1.40-6.50); Neutrophils % (auto) 76.7 %; Platelet Count 281 K/uL (130-400); RDW Coefficient of Variation 13.4 % (11.5-14.5); RDW Standard Deviation 39.2 fL (36.4-46.3); Red Blood Count 5.04 M/uL (4.20-5.40); White Blood Count 9.09 K/ul (4.8-10.8)
[2024-01-23] MEDS: ALBUT/IPRATROP 3MG/0.5MG NEB 3 ML VIAL INH STA (13:25)
[2024-01-23 13:29] LABS: Base Excess VBG 2.8 mEq/L; HCO3 VBG 27 mmol/L; PCO2 VBG 40 mmHg (38-50); PO2 VBG 38 mmHg; pH VBG 7.44 (7.36-7.41)
--- NOTE | 2024-01-23 13:45 | XRay Report ---
XR chest 1V portable HISTORY: Dyspnea COMPARISON: Chest 06/16/2023. FINDINGS: The lungs are clear. Cardiac silhouette is normal in size. No pleural effusions. No pneumot horax. IMPRESSION: No acute process. ACT 112: Negative or not required by law. Electronically signed by: Nj Mercado M.D. 01/23/2024 1:44 PM
[2024-01-23 13:46] LABS: Albumin Globulin Ratio 1.2 (0.9-2); Albumin Level 3.9 gm/dl (3.4-5.0); BUN Creatinine Ratio 15.6 (10-20); Bilirubin,Total 0.5 mg/dl (0.2-1.0); Calcium 8.8 mg/dl (8.6-10.3); Creatinine Clr Calc Pharmacy 52.9 ml/min; Est GFR (African American) 60.8 ml/min; Est GFR (Non-African American) 52.5 ml/min; Globulin 3.3 gm/dl (2.5-4.0); Magnesium 1.7 mg/dl (1.7-2.4); Potassium 3.9 mmol/L (3.5-5.1); Total Protein 7.2 gm/dl (6.0-8.3)
[2024-01-23 13:52] LABS: Prothrombin Time 10.8 Seconds (9.0-12.0); Troponin I High Sensitivity 10.9 pg/ml (0-14)
[2024-01-23 14:19] LABS: Adenovirus PCR Not Detected (NotDetected); Bordetella parapertussis PCR Not Detected (NotDetected); Bordetella pertussis PCR Not Detected (NotDetected); Chlamydia pneumoniae PCR Not Detected (NotDetected); Coronavirus 229E PCR Not Detected (NotDetected); Coronavirus CoV-2 (COVID19)PCR DETECTED (NotDetected); Coronavirus HKU1 PCR Not Detected (NotDetected); Coronavirus NL63 PCR Not Detected (NotDetected); Coronavirus OC43PCR Not Detected (NotDetected); Human Metapneumovirus PCR Not Detected (NotDetected); Influenza A PCR Not Detected (NotDetected); Influenza B PCR Not Detected (NotDetected); Mycoplasma pneumoniae PCR Not Detected (NotDetected); Parainfluenza Virus 1 PCR Not Detected (NotDetected); Parainfluenza Virus 2 PCR Not Detected (NotDetected); Parainfluenza Virus 3 PCR Not Detected (NotDetected); Parainfluenza Virus 4 PCR Not Detected (NotDetected); Respiratory Syncytial VirusPCR Not Detected (NotDetected); Rhinovirus/Enterovirus PCR Not Detected (NotDetected)
--- NOTE | 2024-01-23 15:07 | History & Physical Report ---
Date of Service January 23, 2024 Assessment & Plan (1) Acute respiratory failure due to COVID-19: (2) Acute exacerbation of chronic obstructive airways disease: (3) Diabetes mellitus type 2, controlled, without complications: (4) Tracheostomy in place: (5) History of thyroid cancer: (6) History of pancreatic cancer: Plan Patient is 68-year-old female with previous history of thyroid, throat and pancreatic cancer with known COPD presents with increasing shortness of breath, wheezing and hypoxia. Tested positive for COVID-19. She is critically ill and high risk for worsening respiratory failure. She requires hospital level care and monitoring as well as interventions for COVID-19 infection Admit to monitored unit Treat with IV remdesivir Treat with IV Decadron, dose twice daily the higher dose for her COPD exacerbation Scheduled DuoNeb with as needed DuoNeb, continue other outpatient inhalers Patient's diabetes will be managed by holding her home medications, start basal and prandial insulin. Anticipate some component of hyperglycemia it with the use of the Decadron Continue medications for hypertension Check TSH, continue home Synthroid dosing at this time History of Present Illness Chief Complaint: Shortness of breath cough and wheezy Primary Care Provider: Orlin Castro MD Patient is a 68-year-old female with known COPD and a chronic trach status post throat cancer presents to the emergency room with several days of increasing shortness of breath, coughing and wheezing. She did contact her primary care provider 2 days ago and was started empirically on Augmentin. However, she has not shown any improvement. She has been using her breathing treatments at home with little improvement. And she is noting increasing sputum from her tracheostomy. In the emergency room she was noted to be hypoxic on room air. She normally does not wear any oxygen at home and she tested positive for COVID- 19. Time of my evaluation the patient was feeling more comfortable. She received some nebulizer treatments and was on oxygen. O2 sat in the mid 90s. She denies any fevers. No chills. She does admit to increased sputum and her cough. Otherwise she has been doing well eating and drinking normally, no new problems of the bowels or bladder. No new swollen joints or extremities. Allergies Allergy/AdvReac Type Severity Reaction Status Date / Time zolpidem [From Ambien] Allergy Severe pysch Verified 01/23/24 14:50 complications, dizzy NSAIDS (Non-Steroidal Allergy Intermediate Ulcer & Verified 01/23/24 14:50 Anti-Inflamma anemia hydrochlorothiazide AdvReac Intermediate Acute Verified 01/23/24 14:50 kidney injury rosuvastatin [From Crestor] AdvReac Intermediate Elavated Verified 01/23/24 14:50 liver function test Home Medications Medication Instructions Recorded Confirmed Type losartan 100 mg tablet (Cozaar) 100 mg PO QAM 08/09/19 06/16/23 History pantoprazole 40 mg tablet,delayed 40 mg PO QAM 08/09/19 06/16/23 History release (Protonix) triamcinolone acetonide 0.1 % 1 appln topical BID 08/09/19 06/16/23 History topical cream repaglinide 1 mg tablet 0.5 mg PO .PM SNACK 11/27/21 06/16/23 History amlodipine 10 mg tablet 10 mg PO QAM 07/30/22 06/16/23 History blood-glucose sensor (Dexcom G6 07/30/22 06/16/23 History Sensor device) carvedilol 25 mg tablet 25 mg PO BID 07/30/22 06/16/23 History clobetasol 0.05 % topical ointment 1 applic topical BID PRN flare ups 07/30/22 06/16/23 History (Temovate) levothyroxine 200 mcg tablet 200 mcg PO QAM 07/30/22 06/16/23 History metformin 1,000 mg tablet 1,000 mg PO BID 07/30/22 06/16/23 History cyclobenzaprine 10 mg tablet 10 mg PO HS PRN Muscle Spasm 10/15/22 06/16/23 History sucralfate 1 gram tablet 1 g PO ACHS 10/15/22 06/16/23 History tiotropium bromide 2.5 2 inh inhalation QAM 10/15/22 06/16/23 History mcg/actuation mist for inhalation (Spiriva Respimat) beclomethasone dipropionate 80 1 inh inhalation AMHS 06/16/23 06/16/23 History mcg/actuation HFA breath activated aerosol (Qvar RediHaler) budesonide 0.25 mg/2 mL suspension 0.25 mg NEB DIRECTED PRN 06/16/23 06/16/23 History for nebulization Shortness Of Breath Or Wheezing cyanocobalamin (vitamin B-12) 1,000 mcg PO DAILY 06/16/23 06/16/23 History 1,000 mcg tablet (Vitamin B-12) ezetimibe 10 mg tablet 10 mg PO QAM 06/16/23 06/16/23 History formoterol fumarate 20 mcg/2 mL 20 mcg NEB BIDR PRN Shortness Of 06/16/23 06/16/23 History solution for nebulization Breath Or Wheezing (Perforomist) ipratropium 0.5 mg-albuterol 3 mg 3 ml inhalation Q6 PRN Shortness 06/16/23 06/16/23 History (2.5 mg base)/3 mL nebulization Of Breath Or Wheezing soln repaglinide 2 mg tablet 2 mg PO BIDM 06/16/23 06/16/23 History potassium chloride 20 mEq 20 meq PO DAILY #15 tabs 06/20/23 Rx tablet,extended release prednisone 20 mg tablet 20 mg PO UD #11 tabs 06/20/23 Rx Past Med/Surg History Problem List (Updated 01/23/24 @ 15:06 by Alonzo Mccracken DO) Diabetes mellitus type 2, controlled, without complications Acute respiratory failure due to COVID-19 Acute exacerbation of chronic obstructive airways disease (Acute) Sepsis Hypoxia (Acute) COPD exacerbation (Acute) Tracheobronchitis, acute or subacute, with bronchospasm or obstruction (Acute) Profound anemia Tracheostomy in place Encounter for pre-operative examination Familial adenomatous polyposis Hypertensive urgency Acute exacerbation of chronic obstructive pulmonary disease (COPD) Hypoxia (Acute) Hypertension (Acute) SOB (shortness of breath) (Acute) Wheezing (Acute) ALONA (acute kidney injury) (Acute) Metabolic acidosis Asthma exacerbation Acute kidney injury H/O deep venous thrombosis Psoriasis Hypoxia (Acute) URI (upper respiratory infection) Status post tracheostomy Acute and chronic respiratory failure with hypoxia COPD with acute exacerbation Acute bronchitis Multiple pulmonary nodules Osteoarthritis of knees, bilateral Stenosis of tracheal stoma CKD (chronic kidney disease), stage III Chronic obstructive pulmonary disease Diabetes History of Whipple procedure X 2-LAST 2012 Hyperlipidemia Hypertension History of thyroid cancer Papillary thyroid carcinoma (with throat cancer per patient) 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 S/p stomaplasty (11/2020) and tracheostoma revision (05/2021) S/p thyroidectomy No chemo or XRT History of throat cancer Dxed 2006- s/p laryngectomy with trach placement No chemo or XRT History of pancreatic cancer 2017 S/p Whipple procedure No chemo or XRT Hypoxia Medical History Adrenal adenoma Asthma Chronic obstructive pulmonary disease CKD (chronic kidney disease), stage III Coagulopathy Diabetes DVT (deep venous thrombosis) WITH SURGERY TRACH 2004-WAS ON BLOOD THINNER FOR A PERIOD OF TIME-THEN OFF-NO ISSUES SINCE History of colon cancer Dx'ed in 2002 (has familial adenomatous polyposis) S/p ileostomy and then J pouch procedure No chemo or XRT History of pancreatic cancer 2016 S/p Whipple procedure No chemo or XRT History of throat cancer Dxed 2006- s/p laryngectomy with trach placement No chemo or XRT History of thyroid cancer Papillary thyroid carcinoma (with throat cancer per patient) 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 S/p stomaplasty (11/2020) and tracheostoma revision (05/2021) S/p thyroidectomy No chemo or XRT Hyperlipidemia Hypertension Hypothyroidism associated with surgical procedure Hypoxia Murmur, cardiac F/U DR DEE ACEVEDO No murmur per routine 06/2021 cardio visit SOB (shortness of breath) on exertion 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 No current issues Surgical History History of bowel resection WITH J POUCH History of colonoscopy History of esophagogastroduodenoscopy (EGD) History of hernia repair 12/15/21 @ [facility] History of radical neck dissection WITH TRACHEOSTOMY-2004 History of thyroidectomy History of Whipple procedure X 2-LAST 2012 Family History Family/Other Heart disease Lung disease Cancer Father Family hx of colon cancer Sister Family hx of colon cancer Other No family history of adverse response to anesthesia Social History Smoking Status: Former smoker Tobacco Type: Cigarettes Second Hand Exposure: No; Do You Dip or Chew Tobacco: No; Hx Alcohol Use: No Hx Substance Use: No Preferred Language: Thai Communication Ability: Effective Communication Ability Comment: Patient uses a Cervox since she has 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 Inspector Balance Truing Required: No Beliefs That Will Affect Care: None marital status: Current Living Situation: Alone current occupational status: disabled Feels Safe at Home: Yes Assistive Devices: Nebulizer and Other Physical Exam Physical Exam: Constitutional: Alert, ill in appearance, nontoxic HEENT: Mucous membranes moist. Sclera clear Neck: Tracheostomy in place, trach collar in place Lungs: Decreased breath sounds, prolonged expiratory phase, poor airflow, diffuse expiratory wheezes throughout CV: S1-S2, regular Abdomen: Soft, nontender, nondistended Extremities: No significant edema Musculoskeletal: No significant joint tenderness Neuro: No focal deficits Psych: Cooperative, normal mood Results & Data Results & Data Vital Signs (Past 12 Hours) Vital Signs Temp Pulse Pulse Resp BP Pulse Ox O2 Del Method 01/23/24 14:12 84 L Trach Collar 01/23/24 13:26 69 18 91 Room Air 01/23/24 13:19 74 33 H 89 L Room Air 01/23/24 12:58 74 01/23/24 12:57 37.2 C 79 33 H 153/99 H 89 L Room Air O2 Flow Rate 01/23/24 14:12 0 01/23/24 13:26 01/23/24 13:19 01/23/24 12:58 01/23/24 12:57 Diagnostic Findings Reviewed imaging, laboratory and diagnostic studies. Pertinent findings as below. Personally reviewed chest x-ray films, no consolidative infiltrate Personally reviewed EKG sinus rhythm CBC unremarkable Venous pH 7.4 Venous pCO2 40 Venous pO2 38 Sodium 131 Glucose 224 Respiratory viral panel positive for COVID-19 Code Status & VTE Plan VTE Prophylaxis Plan VTE Prophylaxis will be ordered: Yes
[2024-01-23] MEDS: AZITHROMYCIN 250 MG TAB PO ONE (15:16)
[2024-01-23] MEDS: cefTRIAXone SODIUM 2,000 MG/50 ML BAG IV STA (15:16)
[2024-01-23] MEDS: dexAMETHasone**PF** 10 MG/ML VIAL IV ONE (15:17)
[2024-01-23] MEDS ORDERED: POLYETHYLENE (MIRALAX) 17 GM PACK PO PRN (17:40)
[2024-01-23] MEDS ORDERED: GLUCOSE 40% GEL 15 GM TUBE PO PRN (17:40)
[2024-01-23] MEDS ORDERED: GLUCOSE 10 TAB/TUBE PO PRN (17:40)
[2024-01-23] MEDS ORDERED: DEXTROSE 50% 50 ML SYRINGE IV PRN (17:40)
[2024-01-23] MEDS ORDERED: GLUCAGON FOR INJ 1 MG VIAL SQ PRN (17:40)
[2024-01-23] MEDS ORDERED: CARBOHYDRATES FOR HYPOGLYCEMIA PO PRN (17:40)
[2024-01-23] MEDS ORDERED: ACETAMINOPHEN 325 MG TAB PO PRN (17:40)
[2024-01-23] MEDS ORDERED: ONDANSETRON INJ 2 MG/ML 2 ML VIAL IV PRN (17:40)
[2024-01-23] MEDS ORDERED: ALUMINUM/MAGNESIUM SUSP 30 ML UDC PO PRN (17:40)
[2024-01-23] MEDS: ENOXAPARIN INJ 40 MG/0.4 ML SYR SQ SCH (18:28)
[2024-01-23] MEDS: REMDESIVIR 200 MG in SODIUM CHLORIDE 0.9% 210 ML IV STA (18:28)
[2024-01-23] MEDS: SUCRALFATE 1 GM TAB PO SCH (18:29)
[2024-01-23] MEDS: ALBUT/IPRATROP 3MG/0.5MG NEB 3 ML VIAL INH SCH (18:29)
[2024-01-23] MEDS: INSULIN ASPART PER UNIT CHARGE SC SCH (18:31)
[2024-01-23] MEDS: guaiFENesin 600 MG TABCR PO SCH (21:29)
[2024-01-23] MEDS: FLUTICASONE FUROATE 100MCG 14 PUFFS/INHALER INH SCH (21:29)
[2024-01-23] MEDS: dexAMETHasone 6 MG in SYRINGE 0 ML IV SCH (21:29)
[2024-01-23] MEDS: carvediloL 25 MG TAB PO SCH (21:29)
[2024-01-23] MEDS: INSULIN HUMAN REGULAR PER UNIT 4 UNITS in SYRINGE 3.96 ML IV STA (21:29)
[2024-01-23] MEDS: LANTUS PER UNIT CHARGE SQ SCH (21:30)
[2024-01-23 22:55] LABS: Appearance Urine Clear (Clear); Bacteria Urine Automated None Seen (None Seen); Bilirubin Urine Negative (Negative); Blood Urine Negative (Negative); Cast Urine Automated 0-2 /lpf (0-2); Color Urine Yellow; Epithelial Cell Urine Auto 0-2 /hpf (0-2); Glucose Urine UA 1+ (Negative); Ketones Urine Negative (Negative); Leukocyte Esterase Urine Negative (Negative); Nitrite Urine Negative (Negative); Protein Urine 1+ (Negative); RBC Urine Automated 0-2 /hpf (0-2); Specific Gravity Urine 1.011 (1.000-1.030); Urobilinogen Urine Negative (Negative); WBC Urine Automated 0-5 /hpf (0-5); pH Urine 5.5 (4.5-7.5)
[2024-01-24] MEDS: LEVOTHYROXINE SODIUM 200 MCG TABLET PO SCH (04:44)
[2024-01-24 08:35] LABS: BUN Creatinine Ratio 20.8 (10-20); Creatinine Clr Calc Pharmacy 56.5 ml/min; Est GFR (African American) 66.7 ml/min; Est GFR (Non-African American) 57.6 ml/min; Magnesium 1.8 mg/dl (1.7-2.4); Potassium 4.3 mmol/L (3.5-5.1)
[2024-01-24] MEDS: LOSARTAN POTASSIUM 50 MG TAB PO SCH (08:48)
[2024-01-24] MEDS: amLODIPine BESYLATE 5 MG TAB PO SCH (08:49)
[2024-01-24] MEDS: EZETIMIBE 10 MG TAB PO SCH (08:49)
[2024-01-24] MEDS: PANTOprazole 40 MG TAB PO SCH (08:49)
[2024-01-24 08:50] LABS: Thyroid Stimulating Hormone 0.156 uIu/ml (0.300-4.500)
[2024-01-24] MEDS: UMECLIDINIUM BROMIDE 62.5MCG/BLISTER 7 PUFFS/INHALER INH SCH (08:50)
[2024-01-24 09:06] LABS: Estimated Average Glucose 197 mg/dl; Hemoglobin A1C 8.5 % (4.5-5.6)
[2024-01-24 09:25] LABS: T4 Free Thyroxine 1.53 ng/dl (0.61-1.60)
--- NOTE | 2024-01-24 14:45 | Hospitalist Progress Note ---
Date of Service January 24, 2024 Assessment & Plan (1) Acute respiratory failure due to COVID-19: (2) Acute exacerbation of chronic obstructive airways disease: (3) Diabetes mellitus type 2, controlled, without complications: (4) Tracheostomy in place: (5) History of thyroid cancer: (6) History of pancreatic cancer: Plan Ms Soto is a 68-year-old female with previous history of thyroid, throat and pancreatic cancer with known COPD admitted on 01/22 for increasing shortness of breath, wheezing and hypoxia. Tested positive for COVID-19. She is critically ill and high risk for worsening respiratory failure.. Patient admitted for acute respiratory failure iso COPD and COVID. #Acute hypoxic respiratory failure iso COVID 19 infection #COPD exacerbation Continue remdesivir for admission Decrease Decadron to daily for hypoxia iso covid Add LABA continue lama/ics DuoNebs prn continue guaifenesin encourage IS Azithromycin 500mg x 3 for COPD exacerbation #hypertension continue home losartan, amlodipine and coreg #Hyperglycemia iso steroids #DM2 on oral medications, reasonable control as of recent hemoglobin A1c of 7.1 last month hold home regimen continue glargine 8 bid and ssi while admitted A1C 8.5% #HLD continue zetia #primary aldosteronism/history of bilateral adrenal nodules, patient [place] [facility] [place] #postsurgical hypothyroidism #recurrent thyroid cancer continue home levothyroxine #history of post laryngectomy stoma stenosis status post stomaplasty #pancreatic cancer status post surgery #colon cancer status post surgery hx of Gross syndrome/FAP #Chronic transaminitis, hepatic steatosis on outpatient MRI, patient follows with [facility] [place] stable DVT lovenox Dispo 1-2 days 2 step prior to dispo Admission and Anticipated Discharge Date Admission Date: January 23, 2024 Subjective Evalauted at bedside Reports subjective improvement, denies any further wheezing and reports decreased secretions overall Physical Exam Constitutional: WD/WN, vitals as above ENMT: trach in place, utilizes electrolaynx to speak Respiratory: few rhonchi, but no wheezing Cardiovascular: RRR, no murmur, no edema Results & Data Results & Data Vital Signs (Past 12 Hours) Vital Signs Temp Pulse Pulse Resp BP Pulse Ox O2 Del Method 01/24/24 13:38 79 01/24/24 10:36 85 18 91 Room Air 07/22/24 08:42 Room Air 01/24/24 07:29 71 18 89 L Room Air 01/24/24 07:08 36.8 C 68 18 156/82 H 90 Room Air 01/24/24 07:06 71 01/24/24 03:40 36.7 C 72 16 127/76 90 Room Air Laboratory Results [facility] 01/24/24 07:56 Sodium 137 Potassium 4.3 Chloride 101 Carbon Dioxide 27 BUN 21 Creatinine 1.01 Glucose 243 H Calcium 9.0 Urine 01/23/24 Range/Units 21:20 Urine Color Yellow Urine Appearance Clear (Clear) Urine pH 5.5 (4.5-7.5) Ur Specific [address] 1.011 (1.000-1.030) Urine Protein 1+ H (Negative) Urine Glucose (UA) 1+ H (Negative) Medications Administered Home Medications Medication Instructions Recorded Confirmed Last Taken losartan 100 mg tablet (Cozaar) 100 mg PO QAM 08/09/19 01/23/24 01/23/24 repaglinide 1 mg tablet 0.5 mg PO .PM SNACK 11/27/21 01/23/24 01/22/24 amlodipine 10 mg tablet 10 mg PO QAM 07/30/22 01/23/24 01/23/24 blood-glucose sensor (Dexcom G6 07/30/22 06/16/23 Unknown Sensor device) carvedilol 25 mg tablet 25 mg PO BID 07/30/22 01/23/24 01/23/24 08:00 levothyroxine 200 mcg tablet 200 mcg PO DAILYBB 07/30/22 01/23/24 01/23/24 cyclobenzaprine 10 mg tablet 10 mg PO HS PRN Muscle Spasm 10/15/22 01/23/24 12/16/22 cyanocobalamin (vitamin B-12) 1,000 mcg PO DAILY 06/16/23 01/23/24 01/23/24 1,000 mcg tablet (Vitamin B-12) ezetimibe 10 mg tablet 10 mg PO QAM 06/16/23 01/23/24 01/23/24 formoterol fumarate 20 mcg/2 mL 20 mcg NEB BIDR PRN Shortness Of 06/16/23 01/23/24 Unknown solution for nebulization Breath Or Wheezing (Perforomist) ipratropium 0.5 mg-albuterol 3 mg 3 ml inhalation Q6 PRN Shortness 06/16/23 01/23/24 Unknown (2.5 mg base)/3 mL nebulization Of Breath Or Wheezing soln repaglinide 2 mg tablet 2 mg PO BIDM 06/16/23 01/23/24 01/23/24 08:00 amoxicillin 875 mg-potassium 1 tab PO BID 01/23/24 01/23/24 01/23/24 08:00 clavulanate 125 mg tablet ferrous sulfate 325 mg (65 mg 325 mg PO TID 01/23/24 01/23/24 01/23/24 08:00 iron) tablet metformin 500 mg tablet,extended 500 mg PO BID 01/23/24 01/23/24 01/23/24 08:00 release 24 hr pantoprazole 40 mg tablet,delayed 40 mg PO DAILY 01/23/24 01/23/24 01/23/24 release potassium chloride 10 mEq 20 meq PO DAILY 01/23/24 01/23/24 01/23/24 capsule,extended release repaglinide 2 mg tablet 2 mg PO BIDM 01/23/24 01/23/24 01/23/24 08:00 sodium chloride 7 % for 1 inh inhalation BID 01/23/24 01/23/24 Unknown nebulization Active Medications Generic Name Dose Route Start Last Admin Trade Name Stephanie PRN Reason Stop Dose Admin Albuterol 3 ml 01/23/24 17:40 01/24/24 10:36 Albut/Ipratrop 3mg/0.5mg Neb 3 Ml Vial INH 02/22/24 17:39 3 ml QIDR LAURA Administration Amlodipine Besylate 10 mg 01/24/24 09:00 01/24/24 08:49 Amlodipine Besylate 5 Mg Tab PO 02/23/24 08:59 10 mg QAM LAURA Administration Carvedilol 25 mg 01/23/24 21:00 01/24/24 08:49 Carvedilol 25 Mg Tab PO 02/22/24 20:59 25 mg BID LAURA Administration Ezetimibe 10 mg 01/24/24 09:00 01/24/24 08:49 Ezetimibe 10 Mg Tab PO 02/23/24 08:59 10 mg QAM LAURA Administration Enoxaparin Sodium 40 mg 01/23/24 18:00 01/23/24 18:28 Enoxaparin Inj 40 Mg/0.4 Ml Syr SQ 02/22/24 17:59 40 mg Q24H LAURA Administration Fluticasone Furoate 1 puffs 01/23/24 21:00 01/24/24 08:50 Fluticasone Furoate 100mcg 14 Puffs/Inhaler INH 02/22/24 20:59 1 puffs BID LAURA Administration Protocol Guaifenesin 1,200 mg 01/23/24 21:00 01/24/24 08:49 Guaifenesin 600 Mg Tabcr PO 02/22/24 20:59 1,200 mg BID LAURA Administration Insulin Aspart 0 units 01/23/24 17:40 01/24/24 12:51 Insulin Aspart Per Unit Charge SC 02/22/24 17:39 6 units ACHS LAURA Administration Levothyroxine Sodium 200 mcg 01/24/24 06:30 01/24/24 04:44 Levothyroxine Sodium 200 Mcg Tablet PO 02/23/24 06:29 200 mcg DAILYBB LAURA Administration Losartan Potassium 100 mg 01/24/24 09:00 01/24/24 08:48 Losartan Potassium 50 Mg Tab PO 02/23/24 08:59 100 mg QAM LAURA Administration Pantoprazole Sodium 40 mg 01/24/24 09:00 01/24/24 08:49 Pantoprazole 40 Mg Tab PO 02/23/24 08:59 40 mg QAM LAURA Administration Sucralfate 1 gm 01/23/24 17:40 01/24/24 12:51 Sucralfate 1 Gm Tab PO 02/22/24 17:39 1 gm ACHS LAURA Administration Umeclidinium Garner 1 puffs 01/24/24 09:00 01/24/24 08:50 Umeclidinium Garner 62.5mcg/Blister 7 Puffs/Inhaler INH 02/23/24 08:59 1 puffs QAM LAURA Administration
[2024-01-24 15:13] LABS: Hematocrit (blood only) 41.4 % (37.0-47.0); Hemoglobin 13.9 g/dl (12.0-16.0); Mean Corpuscular Hemoglobin 27.3 pg (25.0-34.0); Mean Corpuscular Hgb Conc 33.6 g/dL (32.0-36.0); Mean Corpuscular Volume 81.3 fL (80.0-100.0); Mean Platelet Volume 10.5 fL (9.4-12.4); Platelet Count 287 K/uL (130-400); RDW Coefficient of Variation 13.4 % (11.5-14.5); RDW Standard Deviation 39.7 fL (36.4-46.3); Red Blood Count 5.09 M/uL (4.20-5.40); White Blood Count 7.05 K/ul (4.8-10.8)
[2024-01-24] MEDS: AZITHROMYCIN 500 MG in DEXTROSE 5% 250 ML IV ONE (15:58)
[2024-01-24] MEDS: CYCLOBENZAPRINE HCL 10 MG TAB PO PRN (20:29)
[2024-01-24] MEDS: LANTUS PER UNIT CHARGE SQ SCH (20:29)
[2024-01-24] MEDS: REMDESIVIR 100 MG in SODIUM CHLORIDE 0.9% 230 ML IV SCH (20:29)
--- NOTE | 2024-01-25 06:25 | Electrocardiogram Report ---
Test Reason : Blood Pressure : / mmHG Vent. Rate : 075 BPM Atrial Rate : 075 BPM P-R Int : 150 ms QRS Dur : 080 ms QT Int : 416 ms P-R-T Axes : 053 -15 038 degrees QTc Int : 464 ms Normal sinus rhythm Possible Left atrial enlargement Borderline ECG When compared with ECG of 16-JUN-2023 18:25, No significant change was found Confirmed by Deonte Thakkar ([id number]) on 01/25/2024 6:24:54 AM Referred By: Confirmed By:Deonte Thakkar
[2024-01-25 06:30] LABS: Hematocrit (blood only) 38.6 % (37.0-47.0); Mean Corpuscular Hemoglobin 27.1 pg (25.0-34.0); Mean Corpuscular Hgb Conc 33.7 g/dL (32.0-36.0); Mean Corpuscular Volume 80.6 fL (80.0-100.0); Mean Platelet Volume 9.9 fL (9.4-12.4); Platelet Count 301 K/uL (130-400); RDW Coefficient of Variation 13.2 % (11.5-14.5); RDW Standard Deviation 38.6 fL (36.4-46.3); Red Blood Count 4.79 M/uL (4.20-5.40); White Blood Count 14.18 K/ul (4.8-10.8)
[2024-01-25 06:47] LABS: BUN Creatinine Ratio 27.8 (10-20); Calcium 8.6 mg/dl (8.6-10.3); Creatinine Clr Calc Pharmacy 52.2 ml/min; Est GFR (African American) 61.5 ml/min; Est GFR (Non-African American) 53.1 ml/min; Potassium 3.6 mmol/L (3.5-5.1)
[2024-01-25] MEDS: dexAMETHasone 4 MG TAB PO SCH (08:27)
[2024-01-25] MEDS: AZITHROMYCIN 250 MG TAB PO SCH (08:28)
[2024-01-25] MEDS: UMECLIDINIUM/VILANTEROL 62.5/25MCG 7 PUFFS/INHALER INH SCH (08:28)
[2024-01-25] MEDS ORDERED: dexAMETHasone 6 MG in SYRINGE 0 ML IV SCH (09:00)
[2024-01-25] MEDS: ALBUT/IPRATROP 3MG/0.5MG NEB 3 ML VIAL NEB PRN (10:41)
--- NOTE | 2024-01-25 11:52 | Hospitalist Progress Note ---
Date of Service January 25, 2024 Assessment & Plan (1) Acute respiratory failure due to COVID-19: (2) Acute exacerbation of chronic obstructive airways disease: (3) Diabetes mellitus type 2, controlled, without complications: (4) Tracheostomy in place: (5) History of thyroid cancer: (6) History of pancreatic cancer: Plan Ms Soto is a 68-year-old female with previous history of thyroid, throat and pancreatic cancer with known COPD admitted on 01/22 for increasing shortness of breath, wheezing and hypoxia. Tested positive for COVID-19. She is critically ill and high risk for worsening respiratory failure.. Patient admitted for acute respiratory failure iso COPD and COVID. #Acute hypoxic respiratory failure iso COVID 19 infection #COPD exacerbation #Pulm nodules, follows Pulm OP Continue remdesivir for admission Decrease Decadron to daily for hypoxia iso covid continue for 10 day course Add LABA continue lama/ics DuoNebs prn continue guaifenesin encourage IS Azithromycin 500mg x 3 for COPD exacerbation Add budesonide and Perforomist BID Hypertonic nebs add chest percussion for secretion clearance #hypertension continue home losartan, amlodipine and coreg #Hyperglycemia iso steroids #DM2 on oral medications, reasonable control as of recent hemoglobin A1c of 7.1 last month hold home regimen continue glargine 8 bid and ssi while admitted A1C 8.5% #HLD continue zetia #primary aldosteronism/history of bilateral adrenal nodules, patient follows with [facility] [employer] #postsurgical hypothyroidism #recurrent thyroid cancer continue home levothyroxine #history of post laryngectomy stoma stenosis status post stomaplasty #pancreatic cancer status post surgery #colon cancer status post surgery hx of Gross syndrome/FAP #Chronic transaminitis, hepatic steatosis on outpatient MRI, patient follows with [facility] GI stable DVT lovenox Dispo 1-2 days 2 step prior to dispo Admission and Anticipated Discharge Date Admission Date: January 23, 2024 Subjective Evaluated this am, denied any concerns however, this afternoon with difficulty clearing secretions Physical Exam Constitutional: WD/WN, vitals as above Respiratory: no wheezing, occasional rhonchi Cardiovascular: RRR, no murmur, no edema Gastrointestinal (Abdomen): normal bowel sounds, soft, nontender, no hepatosplenomegaly Results & Data Results & Data Vital Signs (Past 12 Hours) Vital Signs Temp Pulse Pulse Resp BP Pulse Ox O2 Del Method 01/25/24 10:41 66 28 H 88 L Room Air 01/25/24 08:33 36.9 C 63 20 159/77 H 90 Room Air 01/25/24 07:24 Room Air 01/25/24 06:52 65 01/25/24 03:02 36.6 C 64 18 161/75 H 92 Room Air 01/25/24 00:00 87 Laboratory Results Short CBC 01/24/24 01/25/24 Range/Units 07:56 05:52 WBC 7.05 14.18 H (4.8-10.8) K/ul Hgb 13.9 13.0 (12.0-16.0) g/dl Hct 41.4 38.6 (37.0-47.0) % Plt Count 287 301 (130-400) K/uL BMP 01/25/24 05:52 Sodium 139 Potassium 3.6 Chloride 105 Carbon Dioxide 26 BUN 30 H Creatinine 1.08 Glucose 210 H Calcium 8.6 Liver Function 01/25/24 Range/Units 05:52 AST 15 (13-39) U/L ALT 26 (7-52) U/L Medications Administered Home Medications Medication Instructions Recorded Confirmed Last Taken losartan 100 mg tablet (Cozaar) 100 mg PO QAM 08/09/19 01/23/24 01/23/24 repaglinide 1 mg tablet 0.5 mg PO .PM SNACK 11/27/21 01/23/24 01/22/24 amlodipine 10 mg tablet 10 mg PO QAM 07/30/22 01/23/24 01/23/24 blood-glucose sensor (Dexcom G6 07/30/22 06/16/23 Unknown Sensor device) carvedilol 25 mg tablet 25 mg PO BID 07/30/22 01/23/24 01/23/24 08:00 levothyroxine 200 mcg tablet 200 mcg PO DAILYBB 07/30/22 01/23/24 01/23/24 cyclobenzaprine 10 mg tablet 10 mg PO HS PRN Muscle Spasm 10/15/22 01/23/24 12/16/22 cyanocobalamin (vitamin B-12) 1,000 mcg PO DAILY 06/16/23 01/23/24 01/23/24 1,000 mcg tablet (Vitamin B-12) ezetimibe 10 mg tablet 10 mg PO QAM 06/16/23 01/23/24 01/23/24 formoterol fumarate 20 mcg/2 mL 20 mcg NEB BIDR PRN Shortness Of 06/16/23 01/23/24 Unknown solution for nebulization Breath Or Wheezing (Perforomist) ipratropium 0.5 mg-albuterol 3 mg 3 ml inhalation Q6 PRN Shortness 06/16/23 01/23/24 Unknown (2.5 mg base)/3 mL nebulization Of Breath Or Wheezing soln repaglinide 2 mg tablet 2 mg PO BIDM 06/16/23 01/23/24 01/23/24 08:00 amoxicillin 875 mg-potassium 1 tab PO BID 01/23/24 01/23/24 01/23/24 08:00 clavulanate 125 mg tablet ferrous sulfate 325 mg (65 mg 325 mg PO TID 01/23/24 01/23/24 01/23/24 08:00 iron) tablet metformin 500 mg tablet,extended 500 mg PO BID 01/23/24 01/23/24 01/23/24 08:00 release 24 hr pantoprazole 40 mg tablet,delayed 40 mg PO DAILY 01/23/24 01/23/24 01/23/24 release potassium chloride 10 mEq 20 meq PO DAILY 01/23/24 01/23/24 01/23/24 capsule,extended release repaglinide 2 mg tablet 2 mg PO BIDM 01/23/24 01/23/24 01/23/24 08:00 sodium chloride 7 % for 1 inh inhalation BID 01/23/24 01/23/24 Unknown nebulization Active Medications Generic Name Dose Route Start Last Admin Trade Name Freq PRN Reason Stop Dose Admin Albuterol 3 ml 01/23/24 17:40 01/25/24 10:41 Albut/Ipratrop 3mg/0.5mg Neb 3 Ml Vial NEB 02/22/24 17:39 3 ml Q2R PRN Administration Shortness of Breath/Wheezing Amlodipine Besylate 10 mg 01/24/24 09:00 01/25/24 08:29 Amlodipine Besylate 5 Mg Tab PO 02/23/24 08:59 10 mg QAM LAURA Administration Azithromycin 500 mg 01/25/24 09:00 01/25/24 08:28 Azithromycin 250 Mg Tab PO 01/26/24 09:01 500 mg QAM LAURA Administration Carvedilol 25 mg 01/23/24 21:00 01/25/24 08:28 Carvedilol 25 Mg Tab PO 02/22/24 20:59 25 mg BID LAURA Administration Cyclobenzaprine HCl 10 mg 01/23/24 17:40 01/24/24 20:29 Cyclobenzaprine Hcl 10 Mg Tab PO 02/22/24 17:39 10 mg HS PRN Administration Muscle Spasm Dexamethasone 6 mg 01/25/24 09:00 01/25/24 08:27 Dexamethasone 4 Mg Tab PO 02/02/24 08:59 6 mg DAILY LAURA Administration Ezetimibe 10 mg 01/24/24 09:00 01/25/24 08:29 Ezetimibe 10 Mg Tab PO 02/23/24 08:59 10 mg QAM LAURA Administration Enoxaparin Sodium 40 mg 01/23/24 18:00 01/24/24 17:54 Enoxaparin Inj 40 Mg/0.4 Ml Syr SQ 02/22/24 17:59 40 mg Q24H LAURA Administration Fluticasone Furoate 1 puffs 01/23/24 21:00 01/25/24 08:29 Fluticasone Furoate 100mcg 14 Puffs/Inhaler INH 02/22/24 20:59 1 puffs BID LAURA Administration Protocol Guaifenesin 1,200 mg 01/23/24 21:00 01/25/24 08:29 Guaifenesin 600 Mg Tabcr PO 02/22/24 20:59 1,200 mg BID LAURA Administration Remdesivir 100 mg/ Sodium 250 mls @ 250 mls/hr 01/24/24 20:00 01/24/24 21:30 Chloride IV 01/27/24 20:59 Infused Q24H LAURA Infusion Insulin Aspart 0 units 01/23/24 17:40 01/25/24 08:56 Insulin Aspart Per Unit Charge SC 02/22/24 17:39 7 units ACHS LAURA Administration Insulin Glargine 8 units 01/24/24 21:00 01/25/24 08:56 Lantus Per Unit Charge SQ 02/22/24 20:59 8 units BID LAURA Administration Levothyroxine Sodium 200 mcg 01/24/24 06:30 01/25/24 06:06 Levothyroxine Sodium 200 Mcg Tablet PO 02/23/24 06:29 200 mcg DAILYBB LAURA Administration Losartan Potassium 100 mg 01/24/24 09:00 01/25/24 08:29 Losartan Potassium 50 Mg Tab PO 02/23/24 08:59 100 mg QAM LAURA Administration Pantoprazole Sodium 40 mg 01/24/24 09:00 01/25/24 08:29 Pantoprazole 40 Mg Tab PO 02/23/24 08:59 40 mg QAM LAURA Administration Sucralfate 1 gm 01/23/24 17:40 01/25/24 11:05 Sucralfate 1 Gm Tab PO 02/22/24 17:39 1 gm ACHS LAURA Administration Umeclidinium/Vilanterol 1 puffs 01/25/24 09:00 01/25/24 08:28 Umeclidinium/Vilanterol 62.5/25mcg 7 Puffs/Inhaler INH 02/24/24 08:59 1 puffs DAILY LAURA Administration
--- NOTE | 2024-01-25 12:43 | Pulmonary Consultation ---
Date of Consultation January 25, 2024 Assessment & Plan (1) Acute exacerbation of chronic obstructive airways disease: (2) Hypoxia: (3) Tracheostomy in place: (4) History of throat cancer: (5) History of pancreatic cancer: Plan Chest x-ray 01/23/2024 personally reviewed: Portable film, good inspiratory effort, bilateral costophrenic and cardiophrenic angles are clean, no clear lung infiltrate appreciated -- Acute hypoxic respiratory failure Likely secondary to COPD exacerbation from COVID-19 infection Procalcitonin 0.09 Respiratory bio fire positive for COVID-19 Continue with bronchodilators Continue with steroids -- COPD Plan as above --Pulmonary nodules Bilateral upper lobes Continue to monitor given the history of laryngeal CA Follows up with [facility] pulmonary as an outpatient --History of laryngeal CA S/p total laryngectomy 2006 Plan: DC dexamethasone and give Solu-Medrol 40 mg twice daily which is equivalent to 6 mg of dexamethasone twice daily DC fluticasone and give budesonide nebulized. Continue with 7% hypertonic saline and Mucinex Complete the course of azithromycin for total 5 days Please note the above document was generated using voice recognition software. It may contain grammatical, syntax or spelling errors.Any formal questions or concerns about the content, text or information contained within the body of this dictation should be directly addressed to the provider for clarification. History of Present Illness Attending Physician: Piedad Phillips MD History of Present Illness 68-year-old female present to the hospital with complaints of worsening shortness of breath Past medical history: Throat cancer s/p Laryngectomy in 2006, pancreatic cancer s/p Whipple procedure, type 2 diabetes, COPD Pulmonary consulted for hypoxia At the time of examination patient was sitting at the edge of bed She was saturating 96% on 35% trach collar She has been complaining of phlegm and is able to bring up the phlegm with nebulizers When she does bring up the phlegm is mostly clear. Denies any chest pain. No headache, blurry vision Has been afebrile. No nausea or vomiting. Patient has internal ileostomy so she always has loose stools. They have not changed in consistency or frequency. No night sweats, no unintentional weight loss Denies any headache, no blurry vision Social history: Used to be heavy smoker, quit in 2006 Allergies Allergy/AdvReac Type Severity Reaction Status Date / Time zolpidem [From Ambien] Allergy Severe pysch Verified 01/23/24 14:50 complications, dizzy NSAIDS (Non-Steroidal Allergy Intermediate Ulcer & Verified 01/23/24 14:50 Anti-Inflamma anemia hydrochlorothiazide AdvReac Intermediate Acute Verified 01/23/24 14:50 kidney injury rosuvastatin [From Crestor] AdvReac Intermediate Elavated Verified 01/23/24 14:50 liver function test Home Medications Medication Instructions Recorded Confirmed Type losartan 100 mg tablet (Cozaar) 100 mg PO QAM 08/09/19 01/23/24 History repaglinide 1 mg tablet 0.5 mg PO .PM SNACK 11/27/21 01/23/24 History amlodipine 10 mg tablet 10 mg PO QAM 07/30/22 01/23/24 History blood-glucose sensor (Dexcom G6 07/30/22 06/16/23 History Sensor device) carvedilol 25 mg tablet 25 mg PO BID 07/30/22 01/23/24 History levothyroxine 200 mcg tablet 200 mcg PO DAILYBB 07/30/22 01/23/24 History cyclobenzaprine 10 mg tablet 10 mg PO HS PRN Muscle Spasm 10/15/22 01/23/24 History cyanocobalamin (vitamin B-12) 1,000 mcg PO DAILY 06/16/23 01/23/24 History 1,000 mcg tablet (Vitamin B-12) ezetimibe 10 mg tablet 10 mg PO QAM 06/16/23 01/23/24 History formoterol fumarate 20 mcg/2 mL 20 mcg NEB BIDR PRN Shortness Of 06/16/23 01/23/24 History solution for nebulization Breath Or Wheezing (Perforomist) ipratropium 0.5 mg-albuterol 3 mg 3 ml inhalation Q6 PRN Shortness 06/16/23 01/23/24 History (2.5 mg base)/3 mL nebulization Of Breath Or Wheezing soln repaglinide 2 mg tablet 2 mg PO BIDM 06/16/23 01/23/24 History amoxicillin 875 mg-potassium 1 tab PO BID 01/23/24 01/23/24 History clavulanate 125 mg tablet ferrous sulfate 325 mg (65 mg 325 mg PO TID 01/23/24 01/23/24 History iron) tablet metformin 500 mg tablet,extended 500 mg PO BID 01/23/24 01/23/24 History release 24 hr pantoprazole 40 mg tablet,delayed 40 mg PO DAILY 01/23/24 01/23/24 History release potassium chloride 10 mEq 20 meq PO DAILY 01/23/24 01/23/24 History capsule,extended release repaglinide 2 mg tablet 2 mg PO BIDM 01/23/24 01/23/24 History sodium chloride 7 % for 1 inh inhalation BID 01/23/24 01/23/24 History nebulization Patient History Medical History Adrenal adenoma Asthma Chronic obstructive pulmonary disease CKD (chronic kidney disease), stage III Coagulopathy Diabetes DVT (deep venous thrombosis) WITH SURGERY TRACH 2004-WAS ON BLOOD THINNER FOR A PERIOD OF TIME-THEN OFF-NO ISSUES SINCE History of colon cancer Dx'ed in 2002 (has familial adenomatous polyposis) S/p ileostomy and then J pouch procedure No chemo or XRT History of pancreatic cancer 2016 S/p Whipple procedure No chemo or XRT History of throat cancer Dxed 2006- s/p laryngectomy with trach placement No chemo or XRT History of thyroid cancer Papillary thyroid carcinoma (with throat cancer per patient) 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 S/p stomaplasty (11/2020) and tracheostoma revision (05/2021) S/p thyroidectomy No chemo or XRT Hyperlipidemia Hypertension Hypothyroidism associated with surgical procedure Hypoxia Murmur, cardiac F/U DR DEE ACEVEDO No murmur per routine 06/2021 cardio visit SOB (shortness of breath) on exertion 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 No current issues Surgical History History of bowel resection WITH J POUCH History of colonoscopy History of esophagogastroduodenoscopy (EGD) History of hernia repair 12/15/21 @ [facility] History of radical neck dissection WITH TRACHEOSTOMY-2004 History of thyroidectomy History of Whipple procedure X 2-LAST 2012 Family History Family/Other Heart disease Lung disease Cancer Father Family hx of colon cancer Sister Family hx of colon cancer Other No family history of adverse response to anesthesia Social History Smoking Status: Never smoker Tobacco Type: Cigarettes Second Hand Exposure: No; Do You Dip or Chew Tobacco: No; Hx Alcohol Use: No Hx Substance Use: No Preferred Language: Kinyarwanda Communication Ability: Effective Communication Ability Comment: Patient uses a Cervox since she has 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 Chief Vendor Quality Required: No Beliefs That Will Affect Care: None marital status: Current Living Situation: Alone current occupational status: disabled Feels Safe at Home: No Is there a partner from a previous relationship who is making you feel unsafe now?: No Safety Concerns: Feels Safe At This Time Assistive Devices: Nebulizer Assistive Devices Comment: electrolarynx Review of Systems 2 Review of Systems: All systems reviewed & are unremarkable except as noted in HPI & below Physical Exam 2 Physical Exam: Constitutional: No acute distress HEENT: EOMI, PERRLA, tracheostomy opening in place Respiratory system: Decreased air entry bilaterally, no rhonchi, positive expiratory wheeze bilaterally, mid middle crackles bilateral lower lobes CVS: S1-S2 positive, no murmurs or gallops Abdomen: Soft, nontender, nondistended, positive bowel sounds x4 Extremities: +2 pulses bilaterally radialis/ dorsalis pedis, no cyanosis, no edema Neuro: Awake alert oriented x3 Psych: Normal mood and affect G/U: No Madsen Skin: no rashes, warm and dry Lymphatic: no cervical or axillary lymphadenopathy Results & Data Results & Data Vital Signs (Past 12 Hours) Vital Signs Temp Pulse Pulse Resp BP Pulse Ox O2 Del Method 01/25/24 10:41 66 28 H 88 L Room Air 01/25/24 08:33 36.9 C 63 20 159/77 H 90 Room Air 01/25/24 07:24 Room Air 01/25/24 06:52 65 01/25/24 03:02 36.6 C 64 18 161/75 H 92 Room Air Laboratory Results 01/25/24 05:52 01/25/24 05:52 PG Care Time/CCT Total # of Minutes Spent Total Time Spent with Patient: Total time spent is greater than 50% in coordination of care (as documented) at patient's floor/unit and/or counseling patient: Coding Level of Care Code 26111 INT INP/OBS CARE 3/75MIN Diagnoses Acute exacerbation of chronic obstructive airways disease J44.1 Hypoxia R09.[address] Z93.0 History of throat cancer Z85.819 History of pancreatic cancer Z85.07
[2024-01-25] MEDS: FORMOTEROL 20 MCG/2 ML VIAL NEB SCH (13:01)
[2024-01-25] MEDS: SODIUM CHLOR 7% 4 ML NEB NEB SCH (13:02)
[2024-01-25] MEDS: methylPREDNISolone 40 MG in SYRINGE 0 ML IV SCH (16:50)
[2024-01-25] MEDS: BUDESONIDE 0.5 MG/2 ML VIAL (PULMICORT) NEB SCH ×2 (20:04)
[2024-01-25] MEDS ORDERED: PHARMACY GLYCEMIC MGMT CONSULT PRN (22:53)
[2024-01-26] MEDS: INSULIN ASPART PER UNIT CHARGE SC SCH (00:17)
--- NOTE | 2024-01-26 07:15 | Pulmonology Progress Note ---
Date of Service January 26, 2024 Assessment & Plan (1) Acute exacerbation of chronic obstructive airways disease: (2) Hypoxia: (3) Tracheostomy in place: (4) History of throat cancer: (5) History of pancreatic cancer: Plan Chest x-ray 01/23/2024 personally reviewed: Portable film, good inspiratory effort, bilateral costophrenic and cardiophrenic angles are clean, no clear lung infiltrate appreciated -- Acute hypoxic respiratory failure Likely secondary to COPD exacerbation from COVID-19 infection Procalcitonin 0.09 Respiratory bio fire positive for COVID-19 Continue with bronchodilators Continue with steroids -- COPD Plan as above --Pulmonary nodules Bilateral upper lobes Continue to monitor given the history of laryngeal CA Follows up with [facility] pulmonary as an outpatient --History of laryngeal CA S/p total laryngectomy 2006 Plan: Continue Solu-Medrol 40 mg twice daily which is equivalent to 6 mg of dexamethasone twice daily Continue with budesonide and formoterol nebulized. Continue with 7% hypertonic saline and Mucinex Complete the course of azithromycin for total 5 days Patient seems to be almost back to her baseline with her breathing No further recommendation from pulmonary perspective, will sign off Please call directly with any questions Please note the above document was generated using voice recognition software. It may contain grammatical, syntax or spelling errors.Any formal questions or concerns about the content, text or information contained within the body of this dictation should be directly addressed to the provider for clarification. Admission and Anticipated Discharge Date Admission Date: January 23, 2024 Subjective Seen and examined at bedside. No acute distress, no adverse events overnight Has been saturating well on trach collar. Will gradually recommend to get the patient off of trach collar No chest pain, no headache, no blurry vision No nausea vomiting Review of Systems 2 Review of Systems: All systems reviewed & are unremarkable except as noted in Subjective Physical Exam 2 Physical Exam: Constitutional: No acute distress HEENT: EOMI, PERRLA, tracheostomy opening in place Respiratory system: Decreased air entry bilaterally, no rhonchi, positive expiratory wheeze bilaterally (improved from yesterday), minimal crackles bilateral lower lobes CVS: S1-S2 positive, no murmurs or gallops Abdomen: Soft, nontender, nondistended, positive bowel sounds x4 Extremities: +2 pulses bilaterally radialis/ dorsalis pedis, no cyanosis, no edema Neuro: Awake alert oriented x3 Psych: Normal mood and affect G/U: No Madsen Skin: no rashes, warm and dry Lymphatic: no cervical or axillary lymphadenopathy Results & Data Results & Data Vital Signs (Past 12 Hours) Vital Signs Temp Pulse Pulse Resp BP Pulse Ox O2 Del Method 01/26/24 07:02 57 L 01/26/24 03:43 36.5 C 52 L 17 161/88 H 97 Trach Collar 01/26/24 00:00 62 01/25/24 22:54 36.8 C 58 L 17 163/80 H 96 Trach Collar 01/25/24 20:05 64 19 94 Trach Collar 01/25/24 20:00 Trach Collar 01/25/24 19:38 36.6 C 67 17 148/76 H 95 Trach Collar O2 Flow Rate FiO2 01/26/24 07:02 01/26/24 03:43 9 35 01/26/24 00:00 01/25/24 22:54 9 35 01/25/24 20:05 9 35 01/25/24 20:00 01/25/24 19:38 10 35 Laboratory Results 01/26/24 06:57 01/26/24 06:57 PG Care Time/CCT Total # of Minutes Spent Total Time Spent with Patient: Total time spent is greater than 50% in coordination of care (as documented) at patient's floor/unit and/or counseling patient: Coding Level of Care Code 02942 SUB INP/OBS CARE 2/35MIN Diagnoses Acute exacerbation of chronic obstructive airways disease J44.1 Hypoxia R09.[address] Z93.0 History of throat cancer Z85.819 History of pancreatic cancer Z85.07
[2024-01-26 07:19] LABS: Hematocrit (blood only) 40.7 % (37.0-47.0); Hemoglobin 13.8 g/dl (12.0-16.0); Mean Corpuscular Hemoglobin 27.5 pg (25.0-34.0); Mean Corpuscular Hgb Conc 33.9 g/dL (32.0-36.0); Mean Corpuscular Volume 81.2 fL (80.0-100.0); Mean Platelet Volume 9.8 fL (9.4-12.4); Platelet Count 293 K/uL (130-400); RDW Coefficient of Variation 13.1 % (11.5-14.5); RDW Standard Deviation 38.3 fL (36.4-46.3); Red Blood Count 5.01 M/uL (4.20-5.40); White Blood Count 10.89 K/ul (4.8-10.8)
[2024-01-26 07:39] LABS: BUN Creatinine Ratio 30.5 (10-20); Calcium 8.3 mg/dl (8.6-10.3); Creatinine Clr Calc Pharmacy 68.9 ml/min; Est GFR (African American) 85.8 ml/min; Phosphorus 3.4 mg/dl (2.5-4.9); Potassium 3.6 mmol/L (3.5-5.1)
--- NOTE | 2024-01-26 08:36 | Pharmacy Report ---
Pharmacy Glycemic Short Note 2 - Date of Service January 26, 2024 - Glycemic Short BSG Results (Last 24 hours): 01/25/24 01/25/24 01/25/24 08:31 12:26 16:54 Glucose POC Glucose 174 H 199 H 324 H* 01/25/24 01/25/24 01/25/24 16:59 17:14 20:25 Glucose 308 H* POC Glucose 275 H 309 H* 01/26/24 01/26/24 01/26/24 00:01 04:17 06:57 Glucose 174 H POC Glucose 182 H 109 H 01/26/24 08:08 Glucose POC Glucose 174 H OUTPATIENT ANTIDIABETIC REGIMEN: * metformin 500 mg PO BIDM * repaglinide 2 mg PO BIDM + 0.5 mg PO w/ PM snack HbA1c: 8.5% (01/24/24) ASSESSMENT: * SL is a 68 year old female admitted on 01/23/24 w/ acute respiratory failure secondary to COVID-19 pneumonia * Initiated on remdesivir and high dose IV steroids in form of dexamethasone, subsequently changed to methylprednisolone * Blood sugars labile since time of admission, pharmacy consulted last evening for glycemic control * Received 51 units of insulin yesterday (16 units of basal and 35 units of prandial/correctional bolus) * Blood sugar trend increased throughout the day yesterday, 174 -> 199 -> 275 -> and 309 mg/dL * Will tighten carb ratio today w/ increase in basal PLAN FOR INPATIENT GLYCEMIC CONTROL: * Hold outpatient oral diabetes medications * Basal insulin * Lantus 10 units SC BID * Bolus insulin * NovoLog per scale ACHS or Q6hrs while NPO * Goal Range: Low 110 mg/dL - High 140 mg/dL * Correction Factor: 20 mg/dL/unit * Nutritional / Prandial insulin per carb ratio of 1 unit per 6 grams CHO consumed
[2024-01-26] MEDS ORDERED: LANTUS PER UNIT CHARGE SQ SCH (09:00)
[2024-01-26] MEDS ORDERED: dexAMETHasone**PF** 10 MG/ML VIAL PO SCH (09:00)
[2024-01-26] MEDS: LANTUS PER UNIT CHARGE SQ SCH (09:09)
--- NOTE | 2024-01-26 12:01 | Hospitalist Progress Note ---
Date of Service January 26, 2024 Assessment & Plan (1) Acute respiratory failure due to COVID-19: (2) Acute exacerbation of chronic obstructive airways disease: (3) Diabetes mellitus type 2, controlled, without complications: (4) Tracheostomy in place: (5) History of thyroid cancer: (6) History of pancreatic cancer: Plan Ms Soto is a 68-year-old female with previous history of thyroid, throat and pancreatic cancer with known COPD admitted on 01/22 for increasing shortness of breath, wheezing and hypoxia. Tested positive for COVID-19. Patient admitted for acute respiratory failure in setting of COPD and COVID. Acute hypoxic respiratory failure in setting of COVID 19 infection COPD exacerbation Pulm nodules Pt saturating in the 80s on admission Biofire + for covid Chest xray noting no acute infection Treat with remdesivir x5 days or until hospital discharge IV solumedrol 40mg BID in place of Decadron per pulm Completed three day course of azithromycin 500mg daily Continue Anoro inhaler DuoNebs prn Continue guaifenesin Continue budesonide and Perforomist BID Hypertonic nebs Pulmonology consulted, appreciate recs. Recommended/stated the following: -Continue Solu-Medrol 40 mg twice daily which is equivalent to 6 mg of dexamethasone twice daily -Continue with budesonide and formoterol nebulized. -Continue with 7% hypertonic saline and Mucinex -Complete the course of azithromycin for total 5 days -Patient seems to be almost back to her baseline with her breathing Continue to monitor Transaminitis Liver enzymes elevated hepatic steatosis on outpatient MRI patient follows with [facility] [place] [facility] stable Hypertension continue home losartan, amlodipine and coreg Currently stable/controlled Hyperglycemia in setting of steroids Uncontrolled DM2 on oral medications Hgba1c of 8.5 hold home regimen continue glargine 8 bid and ssi while admitted Glycemic pharmacy consult Will need close followup after discharge for optimal control history of post laryngectomy stoma stenosis status post stomaplasty pancreatic cancer status post surgery colon cancer status post surgery hx of Gross syndrome/FAP-stable HLD continue zetia primary aldosteronism history of bilateral adrenal nodules 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 Trach collar in place. Notes that she coughed up red/brown sputum today. States her symptoms are improving and asking about going home. Review of Systems Review of Systems: All systems reviewed & are unremarkable except as noted in Subjective Physical Exam Physical Exam: General: Alert, oriented. No acute distress Psych: Appropriate mood and affect Neuro: No gross deficits HEENT: NC/AT, trach collar in place CV: RRR Resp: Breath sounds with wheezing bilaterally bilaterally, no increased effort of breathing. Abdomen: Soft Extremities: No edema in lower extremities bilaterally. Results & Data Results & Data Vital Signs (Past 12 Hours) Vital Signs Temp Pulse Pulse Resp BP Pulse Ox O2 Del Method 01/26/24 11:45 36.6 C 55 L 18 147/80 H 99 Trach Collar 01/26/24 07:41 36.8 C 68 18 173/80 H 97 Trach Collar 01/26/24 07:40 Trach Collar 01/26/24 07:20 71 18 97 Trach Collar 01/26/24 07:02 57 L 01/26/24 03:43 36.5 C 52 L 17 161/88 H 97 Trach Collar O2 Flow Rate FiO2 01/26/24 11:45 35 01/26/24 07:41 01/26/24 07:40 35 01/26/24 07:20 9 35 01/26/24 07:02 01/26/24 03:43 9 35 Diagnostic Findings Chest X-Ray 01/23/24 12:59 XR chest 1V portable HISTORY: Dyspnea COMPARISON: Chest 06/16/2023. FINDINGS: The lungs are clear. Cardiac silhouette is normal in size. No pleural effusions. No pneumothorax. IMPRESSION: No acute process. ACT 112: Negative or not required by law. Electronically signed by: Nj Mercado M.D. 01/23/2024 1:44 PM
[2024-01-27 07:26] LABS: Basophils # (auto) 0.02 K/uL (0.00-0.20); Basophils % (auto) 0.2 %; Hemoglobin 14.2 g/dl (12.0-16.0); Immature Granulocytes # (auto) 0.08 K/uL (0.01-0.20); Immature Granulocytes % (auto) 0.7 %; Lymphocytes % (auto) 11.6 %; Mean Corpuscular Hemoglobin 27.3 pg (25.0-34.0); Mean Corpuscular Hgb Conc 33.8 g/dL (32.0-36.0); Mean Corpuscular Volume 80.6 fL (80.0-100.0); Mean Platelet Volume 10.2 fL (9.4-12.4); Monocytes # (auto) 0.46 K/uL (0.11-0.59); Monocytes % (auto) 3.8 %; Neutrophils # (auto) 10.14 K/uL (1.40-6.50); Neutrophils % (auto) 83.7 %; Platelet Count 300 K/uL (130-400); RDW Standard Deviation 37.5 fL (36.4-46.3); Red Blood Count 5.21 M/uL (4.20-5.40)
[2024-01-27 07:50] LABS: Albumin Globulin Ratio 1.3 (0.9-2); Albumin Level 3.6 gm/dl (3.4-5.0); BUN Creatinine Ratio 28.6 (10-20); Bilirubin,Total 0.4 mg/dl (0.2-1.0); Calcium 8.2 mg/dl (8.6-10.3); Creatinine Clr Calc Pharmacy 62.8 ml/min; Est GFR (African American) 75.7 ml/min; Est GFR (Non-African American) 65.3 ml/min; Globulin 2.8 gm/dl (2.5-4.0); Potassium 3.6 mmol/L (3.5-5.1); Total Protein 6.4 gm/dl (6.0-8.3)
--- NOTE | 2024-01-27 12:15 | Pharmacy Report ---
Pharmacy Glycemic Short Note 2 - Date of Service January 27, 2024 - Glycemic Short BSG Results (Last 24 hours): 01/26/24 01/26/24 01/27/24 16:39 19:51 06:35 Glucose 146 H POC Glucose 219 H 191 H 01/27/24 08:21 Glucose POC Glucose 177 H OUTPATIENT ANTIDIABETIC REGIMEN: * metformin 500 mg PO BIDM * repaglinide 2 mg PO BIDM + 0.5 mg PO w/ PM snack HbA1c: 8.5% (01/24/24) ASSESSMENT: 01/26 * Stressors stable - remains on methylprednisolone 40 mg IV q12h * AM random BSG obtained w labs reasonable at 146 mg/dL - no change to Lantus * All three post-prandial BSG's yesterday were >190 mg/dL and patient consumed 24-50g CHO/meal. Will tighten CHO ratio further. 01/25 * SL is a 68 year old female admitted on 01/23/24 w/ acute respiratory failure secondary to COVID-19 pneumonia * Initiated on remdesivir and high dose IV steroids in form of dexamethasone, subsequently changed to methylprednisolone * Blood sugars labile since time of admission, pharmacy consulted last evening for glycemic control * Received 51 units of insulin yesterday (16 units of basal and 35 units of prandial/correctional bolus) * Blood sugar trend increased throughout the day yesterday, 174 -> 199 -> 275 -> and 309 mg/dL * Will tighten carb ratio today w/ increase in basal PLAN FOR INPATIENT GLYCEMIC CONTROL: * Hold outpatient oral diabetes medications * Basal insulin * Lantus 10 units SC BID * Bolus insulin * NovoLog per scale ACHS or Q6hrs while NPO * Goal Range: Low 110 mg/dL - High 140 mg/dL * Correction Factor: 20 mg/dL/unit * Nutritional / Prandial insulin per carb ratio of 1 unit per 5 grams CHO consumed
--- NOTE | 2024-01-27 12:49 | Discharge Summary ---
Discharge Summary Date of Service January 27, 2024 Principal Dx & Hospital Course #1 = Principal Diagnosis (1) Acute respiratory failure due to COVID-19: (2) Acute exacerbation of chronic obstructive airways disease: (3) Diabetes mellitus type 2, controlled, without complications: (4) Tracheostomy in place: (5) History of thyroid cancer: (6) History of pancreatic cancer: Plan Ms Soto is a 68-year-old female with previous history of thyroid, throat and pancreatic cancer with known COPD admitted on 01/22 for increasing shortness of breath, wheezing and hypoxia. Tested positive for COVID-19. Patient admitted for acute respiratory failure in setting of COPD and COVID. Acute hypoxic respiratory failure in setting of COVID 19 infection COPD exacerbation Pulm nodules Pt saturating in the 80s on admission Biofire + for covid Chest xray noting no acute infection Treated with remdesivir until hospital discharge IV solumedrol 40mg BID in place of Decadron per pulm (discharged with a prednisone taper for 8 days) Completed three day course of azithromycin 500mg daily Anoro inhaler DuoNebs prn budesonide and Perforomist BID Hypertonic nebs treated with guaifenesin and discharged with the same. Pulmonology consulted, appreciate recs. Recommended/stated the following on 01/26/24: -Continue Solu-Medrol 40 mg twice daily which is equivalent to 6 mg of dexamethasone twice daily -Continue with budesonide and formoterol nebulized. -Continue with 7% hypertonic saline and Mucinex -Complete the course of azithromycin -Patient seems to be almost back to her baseline with her breathing Per pulmonology on day of discharge, discharge with prednisone taper for about 7 days, mucinex and flutter valve. PCP and pulmonology followup after discharge Transaminitis Liver enzymes elevated on admission hepatic steatosis on outpatient MRI patient follows with [facility] stable Hypertension continue home losartan, amlodipine and coreg Currently stable/controlled Hyperglycemia in setting of steroids Uncontrolled DM2 on oral medications Hgba1c of 8.5 held home regimen continued with glargine 8 bid and ssi while admitted Glycemic pharmacy consult Will need close followup after discharge for optimal control Close PCP followup history of post laryngectomy stoma stenosis status post stomaplasty pancreatic cancer status post surgery colon cancer status post surgery hx of Gross syndrome/FAP-stable HLD continue zetia primary aldosteronism history of bilateral adrenal nodules 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 She did contact her primary care provider 2 days ago and was started empirically on Augmentin. However, she has not shown any improvement. She has been using her breathing treatments at home with little improvement. And she is noting increasing sputum from her tracheostomy. In the emergency room she was noted to be hypoxic on room air. She normally does not wear any oxygen at home and she tested positive for COVID-19. Time of my evaluation the patient was feeling more comfortable. She received some nebulizer treatments and was on oxygen. O2 sat in the mid 90s. She denies any fevers. No chills. She does admit to increased sputum and her cough. Otherwise she has been doing well eating and drinking normally, no new problems of the bowels or bladder. No new swollen joints or extremities. Admission Exam Per Admitting Provider Constitutional: Alert, ill in appearance, nontoxic HEENT: Mucous membranes moist. Sclera clear Neck: Tracheostomy in place, trach collar in place Lungs: Decreased breath sounds, prolonged expiratory phase, poor airflow, diffuse expiratory wheezes throughout CV: S1-S2, regular Abdomen: Soft, nontender, nondistended Extremities: No significant edema Musculoskeletal: No significant joint tenderness Neuro: No focal deficits Psych: Cooperative, normal mood Discharge Exam General: Alert, oriented. No acute distress Psych: Appropriate mood and affect HEENT: NC/AT, trach collar not on CV: RRR Resp: Breath sounds decreased bilaterally, no increased effort of breathing. Abdomen: Soft Extremities: No edema in lower extremities bilaterally. Updated Medication List Medication Instructions Recorded Confirmed Type losartan 100 mg tablet (Cozaar) 100 mg PO QAM 08/09/19 01/23/24 History repaglinide 1 mg tablet 0.5 mg PO .PM SNACK 11/27/21 01/23/24 History amlodipine 10 mg tablet 10 mg PO QAM 07/30/22 01/23/24 History blood-glucose sensor (Dexcom G6 07/30/22 06/16/23 History Sensor device) carvedilol 25 mg tablet 25 mg PO BID 07/30/22 01/23/24 History levothyroxine 200 mcg tablet 200 mcg PO DAILYBB 07/30/22 01/23/24 History cyclobenzaprine 10 mg tablet 10 mg PO HS PRN Muscle Spasm 10/15/22 01/23/24 History cyanocobalamin (vitamin B-12) 1,000 mcg PO DAILY 06/16/23 01/23/24 History 1,000 mcg tablet (Vitamin B-12) ezetimibe 10 mg tablet 10 mg PO QAM 06/16/23 01/23/24 History formoterol fumarate 20 mcg/2 mL 20 mcg NEB BIDR PRN Shortness Of 06/16/23 01/23/24 History solution for nebulization Breath Or Wheezing (Perforomist) ipratropium 0.5 mg-albuterol 3 mg 3 ml inhalation Q6 PRN Shortness 06/16/23 01/23/24 History (2.5 mg base)/3 mL nebulization Of Breath Or Wheezing soln repaglinide 2 mg tablet 2 mg PO BIDM 06/16/23 01/23/24 History amoxicillin 875 mg-potassium 1 tab PO BID 01/23/24 01/23/24 History clavulanate 125 mg tablet ferrous sulfate 325 mg (65 mg 325 mg PO TID 01/23/24 01/23/24 History iron) tablet metformin 500 mg tablet,extended 500 mg PO BID 01/23/24 01/23/24 History release 24 hr pantoprazole 40 mg tablet,delayed 40 mg PO DAILY 01/23/24 01/23/24 History release potassium chloride 10 mEq 20 meq PO DAILY 01/23/24 01/23/24 History capsule,extended release repaglinide 2 mg tablet 2 mg PO BIDM 01/23/24 01/23/24 History sodium chloride 7 % for 1 inh inhalation BID 01/23/24 01/23/24 History nebulization guaifenesin 600 mg tablet, 1,200 mg (2 x 600 mg) PO BID #20 01/27/24 Rx extended release 12 hr (Mucinex) tabs prednisone 10 mg tablet See Rx Instructions .Route 01/27/24 Rx .COMPLEX #13 tabs Hospital Stay Data Consultations 01/23/24 14:28 ED Decision to Admit Stat 01/25/24 12:35 Consult Pulmonology Routine Diagnostic Imagining Performed Chest X-Ray 01/23/24 12:59 XR chest 1V portable HISTORY: Dyspnea COMPARISON: Chest 06/16/2023. FINDINGS: The lungs are clear. Cardiac silhouette is normal in size. No pleural effusions. No pneumothorax. IMPRESSION: No acute process. ACT 112: Negative or not required by law. Electronically signed by: Nj Mercado M.D. 01/23/2024 1:44 PM Discharge Instructions Given to Patient (Per Discharging Provider) Mallory, You were treated for a severe covid infection. 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 You also had a test done that shows that you do not need oxygen at home. Pulmonology recommended discharge with an oral prednisone taper, mucinex and a flutter valve. Please keep close followup with pulmonology after discharge. Your diabetes is currently not controlled. Please keep followup with your primary care provider about this. Again, please also keep close follow up with your primary care provider after discharge. Please do not hesitate to come back to the emergency room if your symptoms worsen or return. It was a pleasure taking care of you while you were here. Total Time Total Time Spent Total Time Spent (In Minutes): 75
[2024-01-27] MEDS ORDERED: Nursing to Pharmacy Communication SCH (13:45)
== END 2024-01-27 15:23 | disposition home or self-care (01) | DRG 177 ==
LOC: ED 12:51 → SUATTDRO 14:58 → 2W 14:58
DX: E78.5 Hyperlipidemia, unspecified; E11.65 Type 2 diabetes mellitus with hyperglycemia; E87.1 Hypo-osmolality and hyponatremia; Z93.2 Ileostomy status; T38.0X5A Adverse effect of glucocorticoids and synthetic analogues, initial encounter; J96.01 Acute respiratory failure with hypoxia; R74.01 Elevation of levels of liver transaminase levels; Z85.850 Personal history of malignant neoplasm of thyroid; E89.0 Postprocedural hypothyroidism; Z88.6 Allergy status to analgesic agent; Z90.02 Acquired absence of larynx; D69.2 Other nonthrombocytopenic purpura; J44.1 Chronic obstructive pulmonary disease with (acute) exacerbation; E26.09 Other primary hyperaldosteronism; Z79.890 Hormone replacement therapy; C25.9 Malignant neoplasm of pancreas, unspecified; Z93.0 Tracheostomy status; N18.30 Chronic kidney disease, stage 3 unspecified; K63.89 Other specified diseases of intestine; C18.9 Malignant neoplasm of colon, unspecified; Z87.891 Personal history of nicotine dependence; U07.1 COVID-19; Y92.019 Unspecified place in single-family (private) house as the place of occurrence of the external cause; I12.9 Hypertensive chronic kidney disease with stage 1 through stage 4 chronic kidney disease, or unspecified chronic kidney disease

== ENCOUNTER 2024-03-13 08:00 | Inpatient (IN) ==
--- NOTE | 2024-03-13 08:08 | Emergency Department Note ---
Impression & Plan Shortness of breath, Tracheobronchitis, acute or subacute, with bronchospasm or obstruction, Tracheostomy in place, Hypoxic ED Provider Note NAME: KEY LEVI AGE: 68 SEX: F : 1955 ARRIVES VIA: Ambulance INFORMANT: Patient ED PROVIDER(S): Vin Johnston DO CHIEF COMPLAINT: Shortness of breath HPI: Patient is a 68-year-old female with past medical history of diabetes, sepsis, hypoxia, COPD, tracheobronchitis with bronchospasm and obstruction, hypoxia who presents to the ER for shortness of breath which has been present for the past 2 days. She notes that she feels like she cannot bring anything up with coughing. Denies any headache or change in vision. No chest pain but admits to severe shortness of breath. No dysuria, urgency, or frequency. No other exacerbating or remitting factors. ADDITIONAL HISTORY OBTAINED: Per HPI Chronic Medical/Social Conditions Affecting Care: Per HPI PAST MEDICAL HISTORY:See Below PAST SURGICAL HISTORY:See Below FAMILY HISTORY:See Below SOCIAL HISTORY:See Below HOME MEDICATIONS:See Below ALLERGIES:See Below VITALS:See Below PHYSICAL EXAMINATION: GENERAL: Sitting up in bed, alert, mild distress trying to cough EYE EXAM: normal conjunctiva. PERRL and EOM's grossly intact. OROPHARYNX: mucous membranes are moist NECK: supple, no nuchal rigidity, no adenopathy, non-tender, trach in place LUNGS: Moving little air with faint wheezing. Normal chest wall mechanics HEART: no murmurs, S1 normal and S2 normal ABDOMEN: abdomen soft, non-tender, normo-active bowel sounds, no masses, no rebound or guarding. UPPER EXTREMITIES: upper extremities are grossly normal. LOWER EXTREMITIES: No pitting edema. Calves are equal bilaterally NEURO EXAM: Normal sensorium, cranial nerves II-XII grossly intact, normal speech, no gross weakness of arms, no gross weakness of legs. MEDICAL DECISION MAKING: Patient is a 68-year-old female with a trach who presents to the ER for the above-stated complaint. IV was established medicos obtained. She was on 10 L trach collar upon arrival. She was given neb treatment steroids and a chest x- ray as well as blood work were obtained. IV showed a leukocytosis of 14,000. No significant anemia. BMP with slightly elevated glucose at 209. LFTs bilirubin was unremarkable. Mag was normal. Lipase was normal. Pro-Tino normal. Viral panel was negative. Chest x-ray as well as x-ray of the neck were unremarkable. Patient did improve significantly with a neb treatments and steroids. She was discussed with the hospitalist for further evaluation management treatment. She did remain on trach collar 10 L while here. She did desat when they tried to track trach down Consults/Care Managements Discussions: Per [facility] Triage Nursing notes reviewed. Limited review of prior medical records performed Vital Signs: reviewed and remarkable for no significant abnormalities Differential diagnosis: Differential diagnoses includes but is not limited to pneumonia, bronchitis, COPD/Asthma exacerbation, pneumothorax, pulmonary embolism, congestive heart failure, acute coronary syndrome ER treatment provided: See below Diagnostics interpreted by me include EKG and cardiac monitoring as listed below: -Cardiac Monitoring: An order was placed for continuous cardiac monitoring. The monitor shows a rate of 89 with sinus rhythm. -ECG: Sinus rhythm rate of 94 Normal axis No PVCs QTc 500 -Laboratory studies:Interpreted by me as stated above in MDM and shown below. Imaging studies: Xrays: As interpreted by me: Portable AP upright 1 view the chest shows no focal infiltrate X-rays of the soft tissue of the neck was unremarkable CTs show: none Procedures:none Critical Care: I have personally spent 31 minutes of critical care time in the direct management of this patient. This includes bedside care, interpretation of diagnostic studies, and testing, discussion with consultants, patient, and family members, and other required patient management activities. This 31 minutes is in excess of all separately billable procedures. Past Med/Surg History Problem List (Updated 03/13/24 @ 12:48 by Vin Johnston DO) Hypoxic (Acute) Shortness of breath (Acute) Acute respiratory failure with hypoxia Acute kidney injury superimposed on CKD Type 2 diabetes mellitus Diabetes mellitus type 2, controlled, without complications Acute respiratory failure due to COVID-19 Acute exacerbation of chronic obstructive airways disease (Acute) Sepsis Hypoxia (Acute) COPD exacerbation (Acute) Tracheobronchitis, acute or subacute, with bronchospasm or obstruction (Acute) Profound anemia Tracheostomy in place (Acute) Encounter for pre-operative examination Familial adenomatous polyposis Hypertensive urgency Acute exacerbation of chronic obstructive pulmonary disease (COPD) Hypoxia (Acute) Hypertension (Acute) SOB (shortness of breath) (Acute) Wheezing (Acute) [place] (acute kidney injury) (Acute) Metabolic acidosis Asthma exacerbation Acute kidney injury H/O deep venous thrombosis Psoriasis Hypoxia (Acute) URI (upper respiratory infection) Status post tracheostomy Acute and chronic respiratory failure with hypoxia COPD with acute exacerbation Acute bronchitis Multiple pulmonary nodules Osteoarthritis of knees, bilateral Stenosis of tracheal stoma CKD (chronic kidney disease), stage III Chronic obstructive pulmonary disease Diabetes History of Whipple procedure X 2-LAST 2012 Hyperlipidemia Hypertension History of thyroid cancer Papillary thyroid carcinoma (with throat cancer per patient) 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 S/p stomaplasty (11/2020) and tracheostoma revision (05/2021) S/p thyroidectomy No chemo or XRT History of throat cancer Dxed 2006- s/p laryngectomy with trach placement No chemo or XRT History of pancreatic cancer 2017 S/p Whipple procedure No chemo or XRT Hypoxia Medical History Adrenal adenoma Asthma Chronic obstructive pulmonary disease CKD (chronic kidney disease), stage III Coagulopathy Diabetes DVT (deep venous thrombosis) WITH SURGERY TRACH 2004-WAS ON BLOOD THINNER FOR A PERIOD OF TIME-THEN OFF-NO ISSUES SINCE History of colon cancer Dx'ed in 2002 (has familial adenomatous polyposis) S/p ileostomy and then J pouch procedure No chemo or XRT History of pancreatic cancer 2017 S/p Whipple procedure No chemo or XRT History of throat cancer Dxed 2006- s/p laryngectomy with trach placement No chemo or XRT History of thyroid cancer Papillary thyroid carcinoma (with throat cancer per patient) 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 S/p stomaplasty (11/2020) and tracheostoma revision (05/2021) S/p thyroidectomy No chemo or XRT Hyperlipidemia Hypertension Hypothyroidism associated with surgical procedure Hypoxia Murmur, cardiac F/U DR DEE ACEVEDO No murmur per routine 06/2021 cardio visit SOB (shortness of breath) on exertion 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 No current issues Surgical History History of bowel resection WITH J POUCH History of colonoscopy History of esophagogastroduodenoscopy (EGD) History of hernia repair 12/15/21 @ [facility] History of radical neck dissection WITH TRACHEOSTOMY-2004 History of thyroidectomy History of Whipple procedure X 2-LAST 2012 Family History Family/Other Heart disease Lung disease Cancer Father Family hx of colon cancer Sister Family hx of colon cancer Other No family history of adverse response to anesthesia Social History Smoking Status: Former smoker Tobacco Type: Cigarettes Second Hand Exposure: No; Do You Dip or Chew Tobacco: No; Hx Alcohol Use: No Hx Substance Use: No Preferred Language: Greenlandic Communication Ability: Effective Communication Ability Comment: Patient uses a Cervox since she has 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 Armature Tester Required: No Beliefs That Will Affect Care: None marital status: Current Living Situation: Alone current occupational status: disabled Feels Safe at Home: Yes Assistive Devices: Nebulizer Allergies Allergies Allergy/AdvReac Type Severity Reaction Status Date / Time zolpidem [From Ambien] Allergy Severe pysch Verified 03/13/24 10:36 complications, dizzy NSAIDS (Non-Steroidal Allergy Intermediate Ulcer & Verified 03/13/24 10:36 Anti-Inflamma anemia hydrochlorothiazide AdvReac Intermediate Acute Verified 03/13/24 10:36 kidney injury rosuvastatin [From Crestor] AdvReac Intermediate Elavated Verified 03/13/24 10:36 liver function test Home Meds Home Medications Medication Instructions Recorded Confirmed losartan 100 mg tablet (Cozaar) 100 mg PO QAM 08/09/19 03/13/24 repaglinide 1 mg tablet 0.5 mg PO UD 11/27/21 03/13/24 amlodipine 10 mg tablet 10 mg PO QAM 07/30/22 03/13/24 blood-glucose sensor (Dexcom G6 07/30/22 06/16/23 Sensor device) carvedilol 25 mg tablet 25 mg PO BID 07/30/22 03/13/24 levothyroxine 200 mcg tablet 200 mcg PO DAILYBB 07/30/22 03/13/24 cyclobenzaprine 10 mg tablet 10 mg PO HS PRN Muscle Spasm 10/15/22 03/13/24 cyanocobalamin (vitamin B-12) 1,000 mcg PO DAILY 06/16/23 03/13/24 1,000 mcg tablet (Vitamin B-12) ezetimibe 10 mg tablet 10 mg PO QAM 06/16/23 03/13/24 formoterol fumarate 20 mcg/2 mL 20 mcg NEB BIDR PRN Shortness Of 06/16/23 03/13/24 solution for nebulization Breath Or Wheezing (Perforomist) ipratropium 0.5 mg-albuterol 3 mg 0 ml inhalation Q6 PRN Shortness 06/16/23 03/13/24 (2.5 mg base)/3 mL nebulization Of Breath Or Wheezing soln ferrous sulfate 325 mg (65 mg 325 mg PO TID 01/23/24 03/13/24 iron) tablet metformin 500 mg tablet,extended 500 mg PO BID 01/23/24 03/13/24 release 24 hr pantoprazole 40 mg tablet,delayed 40 mg PO DAILY 01/23/24 03/13/24 release repaglinide 2 mg tablet 2 mg PO BIDM 01/23/24 03/13/24 sodium chloride 7 % for 0 inh inhalation BID 01/23/24 03/13/24 nebulization Previous Rx's Medication Instructions Recorded guaifenesin 600 mg tablet, 1,200 mg (2 x 600 mg) PO BID #20 01/27/24 extended release 12 hr (Mucinex) tabs Results & Data (ED) Vital Signs Vital Signs - 24 hr 03/13/24 08:05 03/13/24 08:09 03/13/24 08:10 Temperature 36.5 C Temperature Source Oral Pulse Rate 93 H 95 H Pulse Rate [Apical] Pulse Rate from SpO2 Sensor 96 H Respiratory Rate 26 H 21 Respiratory Effort / Characteristics Blood Pressure 168/108 H 168/108 H Blood Pressure [Right Arm] Blood Pressure Mean 128 135 Blood Pressure Mean [Right Arm] Blood Pressure Position Sitting Blood Pressure Position [Right Arm] Pulse Oximetry 98 98 Oxygen Delivery Method Trach Collar Oxygen Flow Rate 10 Fraction of Inspired Oxygen Sepsis Recent Fever Within 48 Hours No Sepsis New/Unexplained Change in Mental Status No Sepsis Action Taken by Nursing No Action Required Oxygen Flow Rate - Titration Pulse Oximetry Post Tiitration 03/13/24 08:15 03/13/24 08:15 03/13/24 08:15 Temperature 36.5 C Temperature Source Oral Pulse Rate 88 90 Pulse Rate [Apical] 88 Pulse Rate from SpO2 Sensor 91 H Respiratory Rate 24 26 H 22 Respiratory Effort / Characteristics Blood Pressure Blood Pressure [Right Arm] 168/108 H Blood Pressure Mean Blood Pressure Mean [Right Arm] 128 Blood Pressure Position Blood Pressure Position [Right Arm] Sitting Pulse Oximetry 99 99 99 Oxygen Delivery Method Trach Collar Trach Collar Oxygen Flow Rate 10 10 Fraction of Inspired Oxygen Sepsis Recent Fever Within 48 Hours Sepsis New/Unexplained Change in Mental Status Sepsis Action Taken by Nursing Oxygen Flow Rate - Titration Pulse Oximetry Post Tiitration 03/13/24 08:18 03/13/24 08:18 03/13/24 08:24 Temperature Temperature Source Pulse Rate 90 92 H Pulse Rate [Apical] Pulse Rate from SpO2 Sensor 93 H Respiratory Rate 31 H Respiratory Effort / Characteristics Blood Pressure Blood Pressure [Right Arm] Blood Pressure Mean Blood Pressure Mean [Right Arm] Blood Pressure Position Blood Pressure Position [Right Arm] Pulse Oximetry 100 97 Oxygen Delivery Method Trach Collar Oxygen Flow Rate 10 Fraction of Inspired Oxygen Sepsis Recent Fever Within 48 Hours Sepsis New/Unexplained Change in Mental Status Sepsis Action Taken by Nursing Oxygen Flow Rate - Titration 10 Pulse Oximetry Post Tiitration 100 03/13/24 08:32 03/13/24 08:39 03/13/24 08:40 Temperature Temperature Source Pulse Rate 96 H Pulse Rate [Apical] 100 H Pulse Rate from SpO2 Sensor 97 H Respiratory Rate 30 H 27 H Respiratory Effort / Characteristics Spontaneous Labored Short of Breath Blood Pressure 136/98 Blood Pressure [Right Arm] Blood Pressure Mean 106 Blood Pressure Mean [Right Arm] Blood Pressure Position Blood Pressure Position [Right Arm] Pulse Oximetry 97 98 Oxygen Delivery Method Trach Collar Oxygen Flow Rate Fraction of Inspired Oxygen 50 Sepsis Recent Fever Within 48 Hours Sepsis New/Unexplained Change in Mental Status Sepsis Action Taken by Nursing Oxygen Flow Rate - Titration Pulse Oximetry Post Tiitration 03/13/24 08:42 03/13/24 08:57 03/13/24 09:00 Temperature Temperature Source Pulse Rate 89 90 Pulse Rate [Apical] Pulse Rate from SpO2 Sensor 89 90 Respiratory Rate 24 27 H Respiratory Effort / Characteristics Blood Pressure 173/95 H Blood Pressure [Right Arm] Blood Pressure Mean 141 Blood Pressure Mean [Right Arm] Blood Pressure Position Blood Pressure Position [Right Arm] Pulse Oximetry 98 99 Oxygen Delivery Method Oxygen Flow Rate Fraction of Inspired Oxygen Sepsis Recent Fever Within 48 Hours Sepsis New/Unexplained Change in Mental Status Sepsis Action Taken by Nursing Oxygen Flow Rate - Titration Pulse Oximetry Post Tiitration 03/13/24 09:15 03/13/24 09:21 03/13/24 09:30 Temperature Temperature Source Pulse Rate 80 89 Pulse Rate [Apical] Pulse Rate from SpO2 Sensor 80 90 Respiratory Rate 23 21 Respiratory Effort / Characteristics Blood Pressure 159/94 H Blood Pressure [Right Arm] Blood Pressure Mean 144 Blood Pressure Mean [Right Arm] Blood Pressure Position Blood Pressure Position [Right Arm] Pulse Oximetry 99 97 Oxygen Delivery Method Oxygen Flow Rate Fraction of Inspired Oxygen Sepsis Recent Fever Within 48 Hours Sepsis New/Unexplained Change in Mental Status Sepsis Action Taken by Nursing Oxygen Flow Rate - Titration Pulse Oximetry Post Tiitration 03/13/24 09:48 03/13/24 10:00 03/13/24 10:03 Temperature Temperature Source Pulse Rate 93 H 84 Pulse Rate [Apical] Pulse Rate from SpO2 Sensor 93 H 85 Respiratory Rate 17 22 Respiratory Effort / Characteristics Blood Pressure 161/96 H Blood Pressure [Right Arm] Blood Pressure Mean 146 Blood Pressure Mean [Right Arm] Blood Pressure Position Blood Pressure Position [Right Arm] Pulse Oximetry 96 98 Oxygen Delivery Method Oxygen Flow Rate Fraction of Inspired Oxygen Sepsis Recent Fever Within 48 Hours Sepsis New/Unexplained Change in Mental Status Sepsis Action Taken by Nursing Oxygen Flow Rate - Titration Pulse Oximetry Post Tiitration 03/13/24 10:05 03/13/24 10:15 03/13/24 10:24 Temperature Temperature Source Pulse Rate 86 107 H Pulse Rate [Apical] 84 Pulse Rate from SpO2 Sensor 86 Respiratory Rate 20 20 32 H Respiratory Effort / Characteristics Blood Pressure Blood Pressure [Right Arm] 161/96 H Blood Pressure Mean Blood Pressure Mean [Right Arm] 117 Blood Pressure Position Blood Pressure Position [Right Arm] Pulse Oximetry 98 97 Oxygen Delivery Method Trach Collar Oxygen Flow Rate 9 Fraction of Inspired Oxygen Sepsis Recent Fever Within 48 Hours Sepsis New/Unexplained Change in Mental Status Sepsis Action Taken by Nursing Oxygen Flow Rate - Titration Pulse Oximetry Post Tiitration 03/13/24 10:27 03/13/24 10:31 03/13/24 10:33 Temperature Temperature Source Pulse Rate 93 H 94 H Pulse Rate [Apical] Pulse Rate from SpO2 Sensor Respiratory Rate 27 H 23 Respiratory Effort / Characteristics Blood Pressure 182/106 H Blood Pressure [Right Arm] Blood Pressure Mean 139 Blood Pressure Mean [Right Arm] Blood Pressure Position Blood Pressure Position [Right Arm] Pulse Oximetry 92 87 L Oxygen Delivery Method Oxygen Flow Rate Fraction of Inspired Oxygen Sepsis Recent Fever Within 48 Hours Sepsis New/Unexplained Change in Mental Status Sepsis Action Taken by Nursing Oxygen Flow Rate - Titration Pulse Oximetry Post Tiitration 03/13/24 10:34 03/13/24 10:39 03/13/24 10:40 Temperature Temperature Source Pulse Rate Pulse Rate [Apical] Pulse Rate from SpO2 Sensor Respiratory Rate Respiratory Effort / Characteristics Blood Pressure 149/89 H Blood Pressure [Right Arm] Blood Pressure Mean 103 Blood Pressure Mean [Right Arm] Blood Pressure Position Blood Pressure Position [Right Arm] Pulse Oximetry 87 L 94 Oxygen Delivery Method Trach Collar Trach Collar Oxygen Flow Rate 10 10 Fraction of Inspired Oxygen Sepsis Recent Fever Within 48 Hours Sepsis New/Unexplained Change in Mental Status Sepsis Action Taken by Nursing Oxygen Flow Rate - Titration Pulse Oximetry Post Tiitration 03/13/24 10:45 03/13/24 11:01 03/13/24 11:03 Temperature Temperature Source Pulse Rate 92 H 96 H Pulse Rate [Apical] Pulse Rate from SpO2 Sensor 92 H Respiratory Rate 24 26 H Respiratory Effort / Characteristics Blood Pressure 193/109 H Blood Pressure [Right Arm] Blood Pressure Mean 131 Blood Pressure Mean [Right Arm] Blood Pressure Position Blood Pressure Position [Right Arm] Pulse Oximetry 93 Oxygen Delivery Method Oxygen Flow Rate Fraction of Inspired Oxygen Sepsis Recent Fever Within 48 Hours Sepsis New/Unexplained Change in Mental Status Sepsis Action Taken by Nursing Oxygen Flow Rate - Titration Pulse Oximetry Post Tiitration 03/13/24 11:18 03/13/24 11:21 03/13/24 11:24 Temperature Temperature Source Pulse Rate 100 H 97 H 95 H Pulse Rate [Apical] Pulse Rate from SpO2 Sensor Respiratory Rate 18 24 25 H Respiratory Effort / Characteristics Blood Pressure Blood Pressure [Right Arm] Blood Pressure Mean Blood Pressure Mean [Right Arm] Blood Pressure Position Blood Pressure Position [Right Arm] Pulse Oximetry 94 92 90 Oxygen Delivery Method Oxygen Flow Rate Fraction of Inspired Oxygen Sepsis Recent Fever Within 48 Hours Sepsis New/Unexplained Change in Mental Status Sepsis Action Taken by Nursing Oxygen Flow Rate - Titration Pulse Oximetry Post Tiitration 03/13/24 11:30 03/13/24 11:33 03/13/24 11:45 Temperature Temperature Source Pulse Rate 96 H 94 H Pulse Rate [Apical] Pulse Rate from SpO2 Sensor Respiratory Rate 20 23 Respiratory Effort / Characteristics Blood Pressure 168/94 H Blood Pressure [Right Arm] Blood Pressure Mean 133 Blood Pressure Mean [Right Arm] Blood Pressure Position Blood Pressure Position [Right Arm] Pulse Oximetry 91 91 Oxygen Delivery Method Oxygen Flow Rate Fraction of Inspired Oxygen Sepsis Recent Fever Within 48 Hours Sepsis New/Unexplained Change in Mental Status Sepsis Action Taken by Nursing Oxygen Flow Rate - Titration Pulse Oximetry Post Tiitration 03/13/24 12:00 03/13/24 12:00 03/13/24 12:31 Temperature Temperature Source Pulse Rate 106 H 97 H Pulse Rate [Apical] Pulse Rate from SpO2 Sensor Respiratory Rate 18 Respiratory Effort / Characteristics Blood Pressure 143/113 H Blood Pressure [Right Arm] Blood Pressure Mean 124 Blood Pressure Mean [Right Arm] Blood Pressure Position Blood Pressure Position [Right Arm] Pulse Oximetry 89 L Oxygen Delivery Method Oxygen Flow Rate Fraction of Inspired Oxygen Sepsis Recent Fever Within 48 Hours Sepsis New/Unexplained Change in Mental Status Sepsis Action Taken by Nursing Oxygen Flow Rate - Titration Pulse Oximetry Post Tiitration Laboratory Data 03/13/24 08:12 03/13/24 08:12 Lab Results 03/13/24 03/13/24 03/13/24 Range/Units 08:12 08:19 11:59 WBC 14.77 H (4.8-10.8) K/ul RBC 5.55 H (4.20-5.40) M/uL Hgb 15.8 (12.0-16.0) g/dl Hct 45.8 (37.0-47.0) % MCV 82.5 (80.0-100.0) fL MCH 28.5 (25.0-34.0) pg MCHC 34.5 (32.0-36.0) g/dL RDW Std Deviation 46.5 H (36.4-46.3) fL RDW Coeff of Monika 15.6 H (11.5-14.5) % Plt Count 484 H (130-400) K/uL MPV 9.3 L (9.4-12.4) fL Immature Gran % (Auto) 1.0 % Neut % (Auto) 72.2 % Lymph % (Auto) 16.5 % Jasper % (Auto) 3.2 % Eos % (Auto) 5.9 % Baso % (Auto) 1.2 % Neut # (Auto) 10.65 H (1.40-6.50) K/uL Lymph # (Auto) 2.44 (1.20-3.40) K/uL Jasper # (Auto) 0.48 (0.11-0.59) K/uL Eos # (Auto) 0.87 H (0.00-0.50) K/uL Baso # (Auto) 0.18 (0.00-0.20) K/uL Immature Gran # (Auto) 0.15 (0.01-0.20) K/uL Sodium 140 (136-145) mmol/L Potassium 3.8 (3.5-5.1) mmol/L Chloride 101 (98-107) mmol/L Carbon Dioxide 29 (21-32) mmol/L Anion Gap 10 (3-11) BUN 25 H (6-23) mg/dl Creatinine 1.20 (0.6-1.2) mg/dl Est Cr Clr Drug Dosing 43.5 ml/min Est GFR ( Amer) 54.2 ml/min Est GFR (Non-Af Amer) 46.7 ml/min BUN/Creatinine Ratio 20.8 H (10-20) Glucose 209 H (70-99(Fasting)) mg/dl Lactate 1.1 (0.4-2.0) mmol/L Calcium 8.8 (8.6-10.3) mg/dl Magnesium 2.0 (1.7-2.4) mg/dl Total Bilirubin 0.3 (0.2-1.0) mg/dl AST 29 (13-39) U/L ALT 21 (7-52) U/L Alkaline Phosphatase 163 H (34-104) U/L Troponin I High Sens 12.8 (0-14) pg/ml Total Protein 8.5 H (6.0-8.3) gm/dl Albumin 4.8 (3.4-5.0) gm/dl Globulin 3.7 (2.5-4.0) gm/dl Albumin/Globulin Ratio 1.3 (0.9-2) Lipase 4 L (11-82) U/L Procalcitonin < 0.02 (0-0.5) ng/ml Adenovirus (PCR) Not Detected (NotDetected) B. pertussis DNA (PCR) Not Detected (NotDetected) B.parapertussis DNA PCR Not Detected (NotDetected) C. pneumoniae DNA (PCR) Not Detected (NotDetected) Coronavirus OC43 (PCR) Not Detected (NotDetected) Coronavirus HKU1 (PCR) Not Detected (NotDetected) Coronavirus 229E (PCR) Not Detected (NotDetected) SARS-CoV-2 (PCR) Not Detected (NotDetected) Coronavirus NL63 (PCR) Not Detected (NotDetected) Human Metapneumovir PCR Not Detected (NotDetected) Influenza Type A (PCR) Not Detected (NotDetected) Influenza Type B (PCR) Not Detected (NotDetected) M. pneumoniae (PCR) Not Detected (NotDetected) Parainfluenza 1 (PCR) Not Detected (NotDetected) Parainfluenza 2 (PCR) Not Detected (NotDetected) Parainfluenza 3 (PCR) Not Detected (NotDetected) Parainfluenza 4 (PCR) Not Detected (NotDetected) RSV (PCR) Not Detected (NotDetected) Entero/Rhino (PCR) Not Detected (NotDetected) Administered Medications Discontinued Medications Albuterol (Albut/Ipratrop 3mg/0.5mg Neb 3 Ml Vial) 12 ml NEB NOW STA; Protocol Stop: 03/13/24 08:06 Last Admin: 03/13/24 08:31 Dose: 12 ml Documented By: CHENCHO Prednisone (Prednisone 50 Mg Tab) 50 mg PO NOW STA Stop: 03/13/24 08:06 Last Admin: 03/13/24 08:21 Dose: 50 mg Documented By: BELINDA Imaging Data Radiologist's Impression: Chest X-Ray 03/13/24 08:05 SINGLE VIEW CHEST CLINICAL HISTORY: Atypical chest pain. FINDINGS: An AP, portable, upright chest radiograph is compared to study dated 01/23/2024. Correlation is made with chest CT dated 10/15/2022. A tracheostomy is in place. The cardiomediastinal silhouette is unremarkable noting atherosclerotic calcification of the thoracic aorta. Chronic interstitial thickening is similar to previous. There is mild bibasilar scarring/atelectasis. The lungs and pleural spaces are otherwise clear. No pneumothorax is seen. The skeletal structures are osteopenic. The bony thorax is grossly intact. IMPRESSION: No active disease in the chest. ACT 112: Negative or not required by law. Electronically signed by: Vic Vásquez M.D. 03/13/2024 8:55 AM Soft Tissue Neck X-Ray 03/13/24 08:08 XR soft tissue neck CLINICAL HISTORY: trach COMPARISON STUDY: Chest radiograph January 23, 2024. Chest CT October 15, 2022. FINDINGS: Surgical staple lines postoperative findings within the neck are noted. There is a tracheostomy. No definite tracheostomy tube is identified. There are no unexpected radiopaque foreign bodies. IMPRESSION: 1. Status post tracheostomy. No definite tracheostomy tube identified. 2. Postoperative findings within the neck. ACT 112: Negative or not required by law. Electronically signed by: Matthieu Chappell M.D. 03/13/2024 8:44 AM Discharge Plan Visit Data Chief Complaint: Respiratory Problems Stated Complaint: RESP. DISTRESS ED Provider: Vin Johnston Discharge Problem: Shortness of breath, Tracheobronchitis, acute or subacute, with bronchospasm or obstruction, Tracheostomy in place, Hypoxic Forms Stand Alone Forms: [facility] Prescriptions Prescriptions: No Action losartan [Cozaar] 100 mg tablet 100 mg PO QAM cyclobenzaprine 10 mg tablet 10 mg PO HS PRN (Reason: Muscle Spasm) ipratropium-albuterol 0.5 mg-3 mg(2.5 mg base)/3 mL Solution For Nebulization 0 ml INHALATION Q6 PRN (Reason: Shortness Of Breath Or Wheezing) Rx Instructions: Unable to verify med w/ pharmacy at this date/time. Original Directions: 3ml VIA neb q6h PRN formoterol fumarate [Perforomist] 20 mcg/2 mL solution for nebulization 20 mcg NEB BIDR PRN (Reason: Shortness Of Breath Or Wheezing) Rx Instructions: Unable to verify med w/ pharmacy at this date/time. Original Directions: 20mcg VIA neb twice daily PRN cyanocobalamin (vitamin B-12) [Vitamin B-12] 1,000 mcg Tablet 1,000 mcg PO DAILY Rx Instructions: Unable to verify OTC meds at this date/time. ezetimibe 10 mg tablet 10 mg PO QAM repaglinide 1 mg Tablet 0.5 mg PO UD Rx Instructions: W/ evening snack carvedilol 25 mg tablet 25 mg PO BID levothyroxine 200 mcg tablet 200 mcg PO DAILYBB (DME) Dexcom G6 Sensor Device MISCELLANEOUS amlodipine 10 mg tablet 10 mg PO QAM ferrous sulfate 325 mg (65 mg iron) Tablet 325 mg PO TID Rx Instructions: Unable to verify OTC meds at this date/time. metformin 500 mg tablet extended release 24 hr 500 mg PO BID sodium chloride 7 % Solution For Nebulization 0 inh INHALATION BID Rx Instructions: Unable to verify med w/ pharmacy at this date/time. Original Directions: 1 inhalation bid repaglinide 2 mg tablet 2 mg PO BIDM pantoprazole 40 mg tablet,delayed release (DR/EC) 40 mg PO DAILY guaifenesin [Mucinex] 600 mg Tablet Extended Release 12hr 1,200 mg PO BID Qty: 20 0RF Rx Instructions: Unable to verify OTC meds at this date/time. Referrals Referrals: Orlin Castro MD [Primary Care Provider] -
[2024-03-13] MEDS: predniSONE 50 MG TAB PO STA (08:21)
--- OUTSIDE RECORDS SUMMARY | 2024-03-13 08:22 | External Medical Summary | Summary of Care ---
Author Name Unknown Organization [facility] Address [address] [place] [address] Phone [phone] Care Team Providers Care Manager Contact Name Role Phone Orlin Castro MD Primary Care Provider + Encounter Details Date Type Department Care Team (Late st Contact Info) Description 01/29/2024 Patient Reported Data Patient Survey Ortho OBERD Allergies Active Allergy Reactions Criticality Noted Date Comments Zolpidem Tartrate Psych complications 6 Rosuvastatin 04/05/2020 Elevated lft Hydrochlorothiazide 12/29/2019 brenda Nsaids Other (Please comment) 04/14/2016 Gastric ulcer with anemia documented as of this encounter (statuses as of 01/29/2024) Medications Medication Sig Dispensed Refills Start Date End Date Status ONETOUCH DELICA LANCETS FINE MISC Use to test blood sugar 4 times daily dx e11.9 400 Each 3 03/09/2019 Active Misc. Devices [facility] Tracheostomy Care Kit #4601 1 Each 10/02/2019 [...] s:COPD, group B, by GOLD 2017 classification ([facility]) Inhale via nebulizer . Use as directed. 1 Each 1 12/30/2021 Active Additional Information Patient not taking.Reported on 01/05/2024 Ipratropium-Albuter ol 0.5-2.5 (3) MG/3ML Inhalation Solution (Duoneb)Indications :COPD, group B, by GOLD 2017 classification ([facility]) Inhale via nebulizer 3 mL every 6 [...] Inhalation Suspension (Pulmicort) 0.25 mg. 2022 Active Formarumio In Vitro Strip (Glucose Blood)Indications:T ype 2 diabetes mellitus with hemoglobin A1c goal of less than 7.0% ([facility]) Use to test blood glucose 4 times [...] MOUTH EVERY DAY 90 Tablet 09/06/2023 09/06/19 Active Additional Information Patient not [...] IN THE MORNING 90 Tablet 11/26/2023 11/26/19 Active Repaglinide 1 MG Oral Tablet (Prandin)Indication s:Type 2 diabetes mellitus with hemoglobin A1c goal of less than 7.0% (H[facility]) TAKE ONE-HALF TABLET BY MOUTH EVERY DAY WITH EVENING SNACK 45 Tablet 3 12/31/2023 Active documented as of this encounter (statuses as of 01/29/2024) Active Problems Problem Noted Date Diagnosed Date [...] as of this encounter (statuses as of 01/29/2024) Resolved Problems Problem Noted Date Diagnosed Date Resolved Date Chronic obstructive pulmonary disease 09/30/2023 01/28/2024 Overview: duplicate Thyroid cancer 03/15/2023 09/27/2023 Type 2 diabetes [...] colon cancer 02/14/2019 Overview: [place]os[place]. FAP---carmina, ft kyel Dermatitis 07/01/2012 documented as of this encounter (statuses as of 01/29/2024) Immunizations Name Administration Dates Next Due COVID-19 [...] Description 02/17/2024 7:50 AM EDT Office [facility] [address] [place] [address] Rancho Chapman Jr., OD 16 [place] [address] 03/01/2024 8:30 AM EDT Office Visit Orthopaedics [facility] [address] [place] [address] Javon Bunn DO 132 [facility] [place] [address] 03/27/2024 8:40 AM EDT Office Visit Endocrinology [address] [place] [address] [place] [phone] Nhung Monzon MD [address] [place] [address] 04/24/2024 2:10 PM EDT Office Visit Pharmacy, [facility] [place] [address] [place] [address] Pharmacist1, [facility] [address] [place] [address] 04/24/2024 2:40 PM EDT Office Visit General Internal Medicine Noris Samantha [place] 200 [facility] [place] [address] Orlin Castro MD 200 [facility] [place] [address] 04/27/2024 11:49 AM EDT Hospital Encounter [facility], Operating Room, [facility] - 4th Floor [address] [place] [address] Raymond Campbell MD [address] [place] [address] 04/27/2024 11:49 AM EDT - 04/27/2024 12:39 PM EDT Surgery OR [facility], Operating Room, [facility] - 4th Floor [address] [place] [address] Raymond Campbell MD [address] [place] [address] COLONOSCOPY FLEXIBLE PROXIMAL DIAGNOSTIC 07/04/2024 9:20 AM EST Office [facility] [place] 200 [facility] [address] [place] [address] Orlin Castro MD 200 [facility] [place] [address] 10/03/2024 8:40 AM EDT Office Visit Nephrology, [facility] [address] [place] [address] Galindo Jean MD 200 [facility] [place], [place] [address] Scheduled Procedures Name Priority Associated Diagnoses Date/Ti me COLONOSCOPY FLEXIBLE PROXIMAL DIAGNOSTIC Family history of colonic polyps 04/27/2024 11:49 AM EDT Health Maintenance Due Date Last Done Comments Cologuard 2001 Fecal Occult Blood Test 2001 *COPD SEVERITY VERIFIED BY PFT 08/02/2019 COVID-19 Vaccine ( season) 2023 04/07/2023, 07/07/2022, 02/15/2021, Additional history exists Colonoscopy 12/18/2023 12/17/2022, 12/03, [...] COPD 01/04/2025 01/05/2024 CKD HGB USE SMARTSET 02020 01/12/202501/12, 01/13/2024, 08/03/2023, Additional history exists CKD PHOS USE SMARTSET 40853 01/12/202501/02, 08/23/2023, 08/03/2023, Additional history exists Sigmoidoscopy [...] this encounter Medical Devices Implanted Type Area Caramel Candy Maker Device Identifier Shelf Expiration Date Model / Serial / Lot Stent Pancreatic Geenen 5fr - [id number] Implanted:Qty: 1 on 06/17/2010 at OR [facility] 03/18/2013 [id number] / / [id number] Stent 10fr 7cm - [id number] Implanted:Qty: 1 on 06/17/2010 at OR [facility] : RADHA [place] 01/15/2013 [id number] / / [id number] Description:pancreas documented as of this encounter Advance [...] Power of Attor tanika? No Care Teams Manager Contact Relationship Specialty Start Date End Date Orlin Castro MD [address] [place] [address] PCP - General Internal Medicine 04/27/19 documented as of this encounter
--- OUTSIDE RECORDS SUMMARY | 2024-03-13 08:22 | External Medical Summary | Summary of Care ---
Author Name Unknown Organization [facility] Address [address] [place] [address] Phone [phone] Care Team Providers Care Horse Stud Manager Name Role Phone Orlin Castro MD Primary Care Provider + Reason for Visit * Reason Onset Date Comments Appointment 02/01/2024 Encounter Details Date Type Department Care Team (Late st Contact Info) Description 02/01/2024 Telephone [facility], [place] [address] [place] [address] [phone] Services, Scheduling [address] [place] [address] Appointment (//) Allergies Active Allergy Reactions Criticality Noted Date Comments Zolpidem Tartrate Psych complications 6 Rosuvastatin 04/05/2020 Elevated lft Hydrochlorothiazide 12/29/2019 brenda Nsaids Other (Please comment) 04/14/2016 Gastric ulcer with anemia documented as of this encounter (statuses as of 02/01/2024) Medications Medication Sig Dispensed Refills Start Date [...] :COPD, group B, by GOLD 2017 classification ([place] [...] as of this encounter (statuses as of 02/01/2024) Active Problems Problem Noted Date Diagnosed Date [...] as of this encounter (statuses as of 02/01/2024) Resolved Problems Problem Noted Date Diagnosed Date [...] as of this encounter (statuses as of 02/01/2024) Immunizations Name Administration Dates Next Due COVID-19 [...] encounter Miscellaneous Notes * Telephone Encounter - Maicol Beckwith OSA - 02/01/2024 11:18 AM EDT [facility] Engagement Attempt Engagement: Engagement Attempt 1: Unable to contact Engagement Attempt 2: Unable to contact Engagement Attempt 3: Unable to contact [facility] letter sent Episode closed Home Information: No data was found Advance Care Planning (ACP): No data was found Has Living Will or Advance Directive: No data was found Anticipated Sub-Program: Focused Care Management (3-9 months) Confirmation of Sub-Program Type (by care steam boiler fireman): No data was found Handoff Information: Current care team notified via: [employer] Current telemonitoring equipment: No data was found documented in this encounter Plan of Treatment Upcoming Encounters Date Type Department Care Team (Latest Contact Info) Description 02/11/2024 12:00 PM EDT Office Visit General Internal Medicine [place] [facility] [place] [address] [place] [address] [address] Orlin Castro MD [address] [place] [address] 02/17/2024 7:50 AM EDT Office Visit Optometry, [place] 16 [place] [address] Rancho Chapman Jr., OD 16 [place] [address] 03/01/2024 8:30 AM EDT Office Visit Orthopaedics [facility] [address] [place] [address] Javon Bunn DO [address] [facility] [address] 03/27/2024 8:40 AM EDT Office Visit Endocrinology Enrique [place] [address] [place] [address] Nhung Monzon MD [address] [place] [address] 04/24/2024 2:10 PM EDT Office Visit Pharmacy, [facility] 200 [facility] [place] [address] Pharmacist1, [facility] [address] [place] [address] 04/24/2024 2:40 PM EDT Office Visit General Internal Medicine [facility] 200 [facility] [place] [address] Orlin Castro MD 200 [facility] [place] [address] 04/27/2024 11:49 AM EDT Hospital Encounter [facility], Operating [facility], [facility] - 4[facility] Floor 400 [facility] [place] [address] Raymond Campbell MD [address] [place] [address] 04/27/2024 11:49 AM EDT - 04/27/2024 12:39 PM EDT Surgery [facility], Operating Room, [facility] - 4th Floor [address] [place] [address] Raymond Campbell MD [address] [place] [address] COLONOSCOPY FLEXIBLE PROXIMAL DIAGNOSTIC 07/04/2024 9:20 AM EST Office Visit General Internal Medicine [facility] [place] 200 [facility] [place] [address] Orlin Castro MD 200 [facility] [place] [address] 10/03/2024 8:40 AM EDT [facility] 200 [facility] [place] [address] Galindo Jean MD 200 [facility] [place] [address] Scheduled Procedures Name Priority Associated Diagnoses Date/Ti [...] COPD 01/04/2025 01/05/2024 CKD HGB USE SMARTSET 71024 01/12/202501/12, 01/13/2024, 08/03/2023, Additional history exists CKD PHOS USE SMARTSET 11703 01/12/202501/02, 08/23/2023, 08/03/2023, Additional history exists Sigmoidoscopy 04/29/2026 04/29/2021, 10/15/2020 DXA Scan 05/12/2026 05/12/2022, 05/12/2022 Lipid Panel 10/12/2028 10/13/2023, 10/04, 03/06/2022, Additional history exists DTaP,Tdap,and Td Vaccines (3 - Td or Tdap) 07/07/2032 07/07/2022, 09/29/2010 Hepatitis B Vaccine Completed 12/20/2014, 07/27/2014, 06/22/2014 Zoster Vaccines Completed 12/04/2019, 06/04, 05/20/2017 Pap Smear Discontinued 07/11/2020, 11/02, 09/05/2013, Additional history exists Hepatitis C Screening Completed 02/27/2021 , 07/21/2019, 11/22/2017 Alpha-1 Antitrypsin Completed 08/21/2021 Pneumococcal Vaccine: 65+ [...] this encounter Medical Devices Implanted Type Area Pasteurizing Supervisor Device Identifier Shelf Expiration Date Model / Serial / Lot Stent Pancreatic Geenen 5fr - [id number] Implanted:Qty: 1 on 06/17/2010 at OR [facility] 03/18/2013 [id number] / / [id number] Stent 10fr 7cm - [id number] Implanted:Qty: 1 on 06/17/2010 at OR [facility] : RADHA [place] 01/15/2013 [id number] / / [id number] Description:pancreas documented as of this encounter Advance [...] Power of Attor tanika? No Care Teams Horse Stud Manager Relationship Specialty Start Date End Date Orlin Castro MD 200 [facility] [place] [address] PCP - General Internal Medicine 04/27/19 documented as of this encounter
--- OUTSIDE RECORDS SUMMARY | 2024-03-13 08:22 | External Medical Summary | Summary of Care ---
Author Name Unknown Organization [facility] Address [address] [place] [address] Phone [phone] Care Team Providers Care Continuous Process Machine Operator Name Role Phone Orlin Castro MD Primary Care Provider + Encounter Details Date Type Department Care Team (Late st Contact Info) Description 03/02/2024 Population Health External Data Unspecified Department Allergies Active Allergy Reactions Criticality Noted Date Comments Zolpidem Tartrate Psych complications 6 Rosuvastatin 04/05/2020 Elevated lft Hydrochlorothiazide 12/29/2019 brenda Nsaids Other (Please comment) 04/14/2016 Gastric ulcer with anemia documented as of this encounter (statuses as of 03/02/2024) Medications Medication Sig Dispensed Refills Start Date End Date Status ONETOUCH DELICA LANCETS FINE MISC Use to test blood sugar 4 times daily dx e11.9 400 Each 3 03/09/2019 Active Misc. Devices [facility] Tracheostomy Care Kit #4601 1 Each 10/02/2019 [...] Inhalation Suspension (Pulmicort) 0.25 mg. 2022 Active [employer] Verio In Vitro Strip (Glucose Blood)Indications:T ype [...] as of this encounter (statuses as of 03/02/2024) Active Problems Problem Noted Date Diagnosed Date [...] as of this encounter (statuses as of 03/02/2024) Resolved Problems Problem Noted Date Diagnosed Date [...] as of this encounter (statuses as of 03/02/2024) Immunizations Name Administration Dates Next Due COVID-19 [...] Department Care Team (Latest Contact Info) Description 03/27/2024 8:40 AM EDT Office Visit Endocrinology [address] [place] [place] [phone] Nhung Monzon MD 100 N [facility] [place] [address] 04/24/2024 2:10 PM EDT Office [facility], [facility] [place] [address] [place] [address] Pharmacist1, [facility] [address] [place] [address] 04/24/2024 2:40 PM EDT Office Visit General Internal [facility] [place] [address] [place] [address] Orlin Castro MD [address] [place] [address] 04/27/2024 11:21 AM EDT Hospital Encounter [facility], Operating Room, [facility] - 4th Floor 400 [facility] [place] [address] Raymond Campbell MD [address] [facility] [place] [address] 04/27/2024 11:21 AM EDT - 04/27/2024 12:11 PM EDT Surgery [facility], Operating Room, [facility] - 4th Floor [address] [place] [address] Raymond Campbell MD [address] [place] [address] COLONOSCOPY FLEXIBLE PROXIMAL DIAGNOSTIC 07/04/2024 9:20 AM EST Office Visit General Internal Medicine [facility] [place] 200 [facility] [place] [address] Orlin Castro MD 200 [facility] [place] [address] 10/03/2024 8:40 AM EDT Office Visit Nephrology, [facility] 200 [facility] [place] [address] Galindo Jean MD 200 [facility] [place] [address] Scheduled Procedures Name Priority Associated Diagnoses Date/Ti me COLONOSCOPY FLEXIBLE PROXIMAL DIAGNOSTIC Family history of colonic polyps 04/27/2024 11:21 AM EDT Health Maintenance Due Date Last [...] 03/15/2024 03/15/2023, 05/05, 03/06/2022, Additional history exists Adult Wellness Visit 04/14/2024 04/14/2023 Albumin/Creatinine Ratio 05/05/2024 023, 05/14/2022, 05/01/2022, Additional history exists Depression Screening 06/22/2024 06/22/2023 HbA1c 07/01/2024 12/31/2023, 09/03, 05/31/2023, Additional history exists GFR 07/15/2024 01/13/2024, 10/03, 08/23/2023, Additional history exists Mammogram 09/13/2024 09/14/2023, 09/02, 09/11/2022, Additional history exists Diabetic Foot Exam 09/29/2024 09/30/2023, 0 08/07/2022, 08/21/2021, Additional history exists O2 ASSESSMENT COMPLETED IN PAST YEAR FOR COPD 01/04/2025 01/05/2024 CKD HGB USE SMARTSET 04699 01/12/202501/12, 01/13/2024, 08/03/2023, Additional history exists CKD PHOS USE SMARTSET 21614 01/12/202501/02, 08/23/2023, 08/03/2023, Additional history exists Sigmoidoscopy 04/29/2026 04/29/2021, 10/15/2020 DXA Scan 05/12/2026 05/12/2022, 05/12/2022 Lipid Panel 10/12/2028 10/13/2023, 10/04, 03/06/2022, Additional history exists DTap/Tdap Vaccines (3 - Td or Tdap) 07/07/2032 [...] this encounter Medical Devices Implanted Type Area Police Sergeant Device Identifier Shelf Expiration Date Model / Serial / Lot Stent Pancreatic Geenen 5fr - [id number] Implanted:Qty: 1 on 06/17/2010 at OR [facility] 03/18/2013 [id number] / / [id number] Stent 10fr 7cm - [id number] Implanted:Qty: 1 on 06/17/2010 at OR [facility] : RADHA [place] 01/15/2013 [id number] / / [id number] Description:pancreas documented as of this encounter Advance [...] Power of Attor tanika? No Care Teams Continuous Process Machine Operator Relationship Specialty Start Date End Date Orlin Castro MD 200 [place] [address] PCP - General Internal Medicine 04/27/19 documented as of this encounter
--- OUTSIDE RECORDS SUMMARY | 2024-03-13 08:22 | External Medical Summary | Summary of Care ---
Author Name Unknown Organization [facility] Address [address] [place] [address] Phone [phone] Care Team Providers Care Swiss Type Screw Machine Operator Name Role Phone Orlin Castro [...] 400 Each 3 03/09/2019 Active Misc. Devices [facility] Tracheostomy Care Kit #4601 1 Each 10/02/2019 [...] Inhalation Suspension (Pulmicort) 0.25 mg. 2022 Active [employer] In Vitro Strip (Glucose Blood)Indications:T ype 2 [...] Description 02/17/2024 7:50 AM EDT Office Visit [facility] 16 [place] [address] Rancho Chapman Jr., OD 16 [place] [address] 03/01/2024 8:30 AM EDT Office Visit Orthopaedics [facility] 132 [facility] [place] [address] Javon Bunn DO 132 [place] [address] 03/27/2024 8:40 AM EDT Office Visit Endocrinology [address] [place] [place] [phone] Nhung Monzon MD [address] [place] [address] 04/24/2024 2:10 PM EDT Office Visit Pharmacy, [facility] [place] [address] [place] [address] Pharmacist1, [facility] [address] [place] [address] 04/24/2024 2:40 PM EDT Office Visit General Internal Medicine Noris Samantha [place] 200 [facility] [place] [address] Orlin Castro MD 200 [facility] [place] [address] 04/27/2024 11:49 AM EDT Hospital Encounter OR [facility], Operating Room, [facility] - 4th Floor 400 [place] [address] Raymond Campbell MD [address] [place] [address] 04/27/2024 11:49 AM EDT - 04/27/2024 12:39 PM EDT Surgery OR [facility], Operating Room, [facility] - 4th Floor 400 [place] [address] Raymond Campbell MD [address] [place] [address] COLONOSCOPY FLEXIBLE PROXIMAL DIAGNOSTIC 07/04/2024 9:20 AM EST Office Visit [facility] Internal [facility] [place] [address] [facility] [address] [place] [address] Orlin Castro MD 200 [facility] [place] [address] 10/03/2024 8:40 AM EDT Office Visit Nephrology, [facility] [address] [place] [address] [address] Galindo Jean MD 200 [facility] [place], [place] [address] Scheduled Procedures Name Priority Associated Diagnoses Date/Ti [...] COPD 01/04/2025 01/05/2024 CKD HGB USE SMARTSET 20861 01/12/202501/12, 01/13/2024, 08/03/2023, Additional history exists CKD PHOS USE SMARTSET 06966 01/12/202501/02, 08/23/2023, 08/03/2023, Additional history exists Sigmoidoscopy [...] this encounter Medical Devices Implanted Type Area Digital Marketer Device Identifier Shelf Expiration Date Model / Serial / Lot Stent Pancreatic Geenen 5fr - [id number] Implanted:Qty: 1 on 06/17/2010 at OR [facility] 03/18/2013 [id number] / / [id number] Stent 10fr 7cm - [id number] Implanted:Qty: 1 on 06/17/2010 at OR [facility] : RADHA [place] 01/15/2013 [id number] / / [id number] Description:pancreas documented as of this encounter Advance [...] Power of Attor tanika? No Care Teams Swiss Type Screw Machine Operator Relationship Specialty Start Date End Date Orlin Castro MD 200 [place] [address] PCP - General Internal Medicine 04/27/19 documented as of this encounter
--- OUTSIDE RECORDS SUMMARY | 2024-03-13 08:22 | External Medical Summary | Summary of Care ---
Author Name Unknown Organization [facility] Address [address] [place] [address] Phone [phone] Care Team Providers Care Alignment Mechanic Name Role Phone Orlin Castro MD Primary Care Provider + Reason for Visit * Reason Onset Date Comments Appointment 01/31/2024 Encounter Details Date Type Department Care Team (Late st Contact Info) Description 01/31/2024 Telephone [facility], [place] [address] [place], [place] [id number] Services, Scheduling [address] [place] [address] Appointment (/) Allergies Active Allergy Reactions Criticality Noted Date Comments Zolpidem Tartrate Psych complications 6 Rosuvastatin 04/05/2020 Elevated lft Hydrochlorothiazide 12/29/2019 brenda Nsaids Other (Please comment) 04/14/2016 Gastric ulcer with anemia documented as of this encounter (statuses as of 01/31/2024) Medications Medication Sig Dispensed Refills Start Date [...] B, by GOLD 2017 classification ([facility]) Inhale via nebulizer . Use as directed. 1 Each 1 12/30/2021 Active Additional Information Patient not taking.Reported on 01/05/2024 Ipratropium-Albuter ol 0.5-2.5 (3) MG/3ML Inhalation Solution (Duoneb)Indications :COPD, group B, by GOLD 2017 classification ([facility]) Inhale via nebulizer 3 mL every [...] goal of less than 7.0% ([facility]) Use to test blood glucose 4 [...] as of this encounter (statuses as of 01/31/2024) Active Problems Problem Noted Date Diagnosed Date [...] as of this encounter (statuses as of 01/31/2024) Resolved Problems Problem Noted Date Diagnosed Date [...] as of this encounter (statuses as of 01/31/2024) Immunizations Name Administration Dates Next Due COVID-19 [...] Telephone Encounter - Maicol Beckwith OSA - 01/31/2024 9:26 AM EDT [facility] Engagement Attempt Engagement: Engagement Attempt 1: Unable to contact Engagement Attempt 2: Unable to contact Engagement Attempt 3: No data was found Home Information: No data was found Advance Care Planning (ACP): No data was found Has Living Will or Advance Directive: No data was found Anticipated Sub-Program: Focused Care Management (3-9 months) Confirmation of Sub-Program Type (by care software team leader): No data was found Handoff Information: Current care team notified via: TakeCharge Current telemonitoring equipment: No data was found 01/30 lmom Looking at archie 8/5 documented in this encounter Plan of Treatment Upcoming Encounters Date Type Department Care Team (Latest Contact Info) Description 02/11/2024 12:00 PM EDT Office Visit General Internal Medicine [address] [address] [place] [address] Orlin Castro MD 200 [facility] [place] [address] 02/17/2024 7:50 AM EDT Office Visit Optometry, [place] 16 [place] [address] Rancho Chapman Jr., OD 16 [place] [address] 03/01/2024 8:30 AM EDT Office Visit Orthopaedics [facility] [address] [place] [address] Javon Bunn, DO [address] [place] [address] 03/27/2024 8:40 AM EDT Office Visit Endocrinology [address] [place] [address] [place] [address] Nhung Monzon MD 100 [place] [address] 04/24/2024 2:10 PM EDT Office Visit Pharmacy, [facility] 200 [place] [address] Pharmacist1, [facility] 200 [facility] [place] [place] [address] 04/24/2024 2:40 PM EDT Office Visit General Internal Medicine [facility] [address] [place] [address] Orlin Castro MD [address] [place] [address] 04/27/2024 11:49 AM EDT Hospital Encounter [facility], Operating Room, [facility] - 4th Floor 400 [facility] [place] [id number] Raymond Campbell MD [address] [place] [address] 04/27/2024 11:49 AM EDT - 04/27/2024 12:39 PM EDT Surgery OR [facility], Operating Room, [facility] - 4th Floor [address] [place] [address] Raymond Campbell MD [address] [place] [address] COLONOSCOPY FLEXIBLE PROXIMAL DIAGNOSTIC 07/04/2024 9:20 AM EST Office Visit General Internal Medicine [facility] [employer] [address] [facility] [place] [address] Orlin Castro MD 200 [facility] [place] [address] 10/03/2024 8:40 AM EDT Office Visit Nephrology, [facility] 200 [facility] [place] [address] Galindo Jean MD 200 [facility] [place] [address] Scheduled Procedures Name Priority Associated Diagnoses Date/Ti [...] COPD 01/04/2025 01/05/2024 CKD HGB USE SMARTSET 72152 01/12/202501/12, 01/13/2024, 08/03/2023, Additional history exists CKD PHOS USE SMARTSET 55164 01/12/202501/02, 08/23/2023, 08/03/2023, Additional history exists Sigmoidoscopy [...] this encounter Medical Devices Implanted Type Area Religion Instructor Device Identifier Shelf Expiration Date Model / Serial / Lot Stent Pancreatic Geenen 5fr - [id number] Implanted:Qty: 1 on 06/17/2010 [place] [facility] [employer] 03/18/2013 [id number] / / [id number] Stent 10fr 7cm - [id number] Implanted:Qty: 1 on 06/17/2010 [place] [facility] [place] RADHA [place] 01/15/2013 [id number] / / [id number] Description:pancreas documented as of this encounter Advance [...] Power of Attor tanika? No Care Teams Alignment Mechanic Relationship Specialty Start Date End Date Orlin Castro MD 200 [place] [address] PCP - General Internal Medicine 04/27/19 documented as of this encounter
--- OUTSIDE RECORDS SUMMARY | 2024-03-13 08:23 | External Medical Summary | Summary of Care ---
Author Name Unknown Organization [facility] Address [address] [facility] [place] [address] Phone [phone] Care Team Providers Care Psych Tech Name Role Phone Orlin Castro MD Primary Care Provider + Reason for Visit * Reason Onset Date Comments [facility]: Screening 01/24/2024 Encounter Details Date Type Department Care Team (Late st Contact Info) Description 01/24/2024 Telephone [facility], [facility] 132 [facility] [place] [address] [facility], Nurse [facility] [address] [facility] [place] [address] [facility]: Screening Allergies Active Allergy Reactions Criticality Noted Date Comments Zolpidem Tartrate Psych complications 6 Rosuvastatin 04/05/2020 Elevated lft Hydrochlorothiazide 12/29/2019 brenda Nsaids Other (Please comment) 04/14/2016 Gastric ulcer with anemia documented as of this encounter (statuses as of 01/24/2024) Medications Medication Sig Dispensed Refills Start Date [...] as of this encounter (statuses as of 01/24/2024) Active Problems Problem Noted Date Diagnosed Date [...] as of this encounter (statuses as of 01/24/2024) Resolved Problems Problem Noted Date Diagnosed Date [...] as of this encounter (statuses as of 01/24/2024) Immunizations Name Administration Dates Next Due COVID-19 [...] encounter Miscellaneous Notes * Telephone Encounter - Josseline Ferguson LPN - 01/24/2024 11:51 AM EDT Mallory Soto was referred as a potential candidate for enrollment for [facility]. A review of this chart was completed and: Mallory meets criteria for [facility]. Jump to Initiation Referring care team was notified via : [place] [facility] Referral from HUMPHREY Parker Patient currently IP at [facility], adding to hospital list to follow for discharge Patient also has trach. CM to find out who manages same. Josseline Ferguson LPN [facility] 01/24/2024,11:51 AM documented in this encounter Plan of Treatment Upcoming Encounters Date Type Department Care Team (Latest Contact Info) Description 02/17/2024 7:50 AM EDT Office Visit Optometry, [place] [address] [place] [address] Ari Staley, [place]o Bullard, MAGGY 16 [place] [address] 03/01/2024 8:30 AM EDT Office Visit Orthopaedics [facility] [address] [place] [address] Javon Bunn DO [address] [place] [address] 03/27/2024 8:40 AM EDT Office Visit Endocrinology [address] [place] [address] [place] [address] Nhung Monzon MD [address] [place] [address] 04/24/2024 2:10 PM EDT Office Visit Pharmacy, [facility] 200 [facility] [place] [address] Pharmacist1, [facility] 200 [facility] [place] [address] 04/24/2024 2:40 PM EDT Office Visit General Internal Medicine [facility] 200 [place] [address] Orlin Castro MD 200 [facility] [place] [address] 04/27/2024 11:49 AM EDT Hospital Encounter [facility], Operating Room, [facility] - 4th Floor 400 [place] [address] Raymond Campbell MD 132 [place] [address] 04/27/2024 11:49 AM EDT - 04/27/2024 12:39 PM EDT Surgery OR [facility], Operating Room, [facility] - 4th Floor [address] [place] [address] Raymond Campbell MD [address] [place] [address] COLONOSCOPY FLEXIBLE PROXIMAL DIAGNOSTIC 07/04/2024 9:20 AM EST Office Visit General Internal Medicine [facility] 200 [facility] [place] [address] Orlin Castro MD 200 [facility] [place] [address] 10/03/2024 8:40 AM EDT Office Visit Nephrology, [facility] 200 [facility] [place] [address] Galindo Jean MD 200 [facility] [place] [address] Scheduled Procedures Name Priority Associated Diagnoses Date/Ti [...] COPD 01/04/2025 01/05/2024 CKD HGB USE SMARTSET 89434 01/12/202501/12, 01/13/2024, 08/03/2023, Additional history exists CKD PHOS USE SMARTSET 37811 01/12/202501/02, 08/23/2023, 08/03/2023, Additional history exists Sigmoidoscopy [...] this encounter Medical Devices Implanted Type Area Health Insurance Adjuster Device Identifier Shelf Expiration Date Model / Serial / Lot Stent Pancreatic Geenen 5fr - [id number] Implanted:Qty: 1 on 06/17/2010 at [place] [facility] [place] [employer] 03/18/2013 [id number] / / [id number] Stent 10fr 7cm - [id number] Implanted:Qty: 1 on 06/17/2010 at [place] [facility] [place] RADHA [place] 01/15/2013 [id number] / / [id number] Description:pancreas documented as of this encounter Advance [...] Power of Attor tanika? No Care Teams Psych Tech Relationship Specialty Start Date End Date Orlin Castro MD [address] [place] [address] PCP - General Internal Medicine 04/27/19 documented as of this encounter
--- OUTSIDE RECORDS SUMMARY | 2024-03-13 08:23 | External Medical Summary | Summary of Care ---
Author Name Unknown Organization [facility] Address [address] [place] [address] Phone [phone] Care Team Providers Care Assembly Line Leader Name Role Phone Orlin Castro MD Primary [...] 400 Each 3 03/09/2019 Active Misc. Devices [facility] Tracheostomy Care Kit #4601 1 Each 10/02/2019 [...] Inhalation Suspension (Pulmicort) 0.25 mg. 2022 Active [employer] In Vitro Strip (Glucose Blood)Indications:T ype 2 [...] Description 02/17/2024 7:50 AM EDT Office Visit [place] 16 [place] [address] Rancho Chapman Jr., OD 16 [place] [address] 03/01/2024 8:30 AM EDT Office Visit Orthopaedics [facility] 132 [place] [address] Javon Bunn DO 132 [place] [address] 03/27/2024 8:40 AM EDT Office Visit Endocrinology [address] [place] [address] Nhung Monzon MD [address] [place] [address] 04/24/2024 2:10 PM EDT Office Visit Pharmacy, [address] [place] [address] [place] [address] Pharmacist1, [facility] [address] [place] [address] 04/24/2024 2:40 PM EDT Office Visit General Internal Medicine [place] 200 [facility] [place] [address] Orlin Castro MD 200 [facility] [place] [address] 04/27/2024 11:49 AM EDT Hospital Encounter OR [facility], Operating Room, [facility] - 4th Floor 400 [place] [address] Raymond Campbell MD [address] [place] [address] 04/27/2024 11:49 AM EDT - 04/27/2024 12:39 PM EDT Surgery OR [facility], Operating Room, [facility] - 4th Floor 400 [place] [address] Raymond Campbell MD [address] [place] [address] COLONOSCOPY FLEXIBLE PROXIMAL DIAGNOSTIC 07/04/2024 9:20 AM EST Office Visit General Internal Medicine [facility] [place] 200 [facility] [address] [place] [address] Orlin Castro MD 200 [facility] [place] [address] 10/03/2024 8:40 AM EDT Office Visit Nephrology, [facility] [address] [place] [address] Galindo Jean MD 200 [facility] [place], [place] [address] Scheduled Procedures Name Priority Associated Diagnoses Date/Ti [...] COPD 01/04/2025 01/05/2024 CKD HGB USE SMARTSET 30184 01/12/202501/12, 01/13/2024, 08/03/2023, Additional history exists CKD PHOS USE SMARTSET 14735 01/12/202501/02, 08/23/2023, 08/03/2023, Additional history exists Sigmoidoscopy [...] this encounter Medical Devices Implanted Type Area Route Sales Representative Device Identifier Shelf Expiration Date Model / Serial / Lot Stent Pancreatic Geenen 5fr - [id number] Implanted:Qty: 1 on 06/17/2010 [place] [facility] [employer] 03/18/2013 [id number] / / [id number] Stent 10fr 7cm - [id number] Implanted:Qty: 1 on 06/17/2010 [place] [facility] [place] RADHA [place] 01/15/2013 [id number] / / [id number] Description:pancreas documented as of this encounter Advance [...] Power of Attor tanika? No Care Teams Assembly Line Leader Relationship Specialty Start Date End Date Orlin Castro MD 200 [place] [address] PCP - General Internal Medicine 04/27/19 documented as of this encounter
--- OUTSIDE RECORDS SUMMARY | 2024-03-13 08:23 | External Medical Summary | Summary of Care ---
Author Name Unknown Organization [facility] Address [address] [place] [address] Phone [phone] Care Team Providers Care [employer] Hazmat Tanker Driver Name Role Phone Orlin Castro MD Primary Care Provider + Reason for Visit * Reason Onset Date Comments Appointment 01/28/2024 Encounter Details Date Type Department Care Team (Late st Contact Info) Description 01/28/2024 Telephone [facility], [place] [address] [place] [phone] Services, Scheduling [address] [place] [address] Appointment (//) Allergies Active Allergy Reactions Criticality Noted Date Comments Zolpidem Tartrate Psych complications 6 Rosuvastatin 04/05/2020 Elevated lft Hydrochlorothiazide 12/29/2019 brenda Nsaids Other (Please comment) 04/14/2016 Gastric ulcer with anemia documented as of this encounter (statuses as of 01/28/2024) Medications Medication Sig Dispensed Refills Start Date [...] as of this encounter (statuses as of 01/28/2024) Active Problems Problem Noted Date Diagnosed Date [...] as of this encounter (statuses as of 01/28/2024) Resolved Problems Problem Noted Date Diagnosed Date [...] as of this encounter (statuses as of 01/28/2024) Immunizations Name Administration Dates Next Due COVID-19 [...] Telephone Encounter - Maicol Beckwith OSA - 01/28/2024 11:19 AM EDT [facility] Engagement Attempt Engagement: Engagement Attempt 1: Unable to contact Engagement Attempt 2: No data was found Home Information: No data was found Advance Care Planning (ACP): No data was found Has Living Will or Advance Directive: No data was found Anticipated Sub-Program: Focused Care Management (3-9 months) Confirmation of Sub-Program Type (by care steam hammer operator): No data was found Handoff Information: Current care team notified via: TownHog Current telemonitoring equipment: No data was found 01/27-lmom Looking at archie 02/01 documented in this encounter Plan of Treatment Upcoming Encounters Date Type Department Care Team (Latest Contact Info) Description 02/17/2024 7:50 AM EDT Office Visit Optometry, [place] [address] [place] [address] Ari Staley, Ranch[place] Bullard, OD 16 [place] [address] 03/01/2024 8:30 AM EDT Office Visit Orthopaedics [facility] [address] [facility] [place] [address] Javon Bunn DO [address] [facility] [place] [address] 03/27/2024 8:40 AM EDT Office Visit Endocrinology [address] [place] [address] Nhung Monzon MD [address] [place] [address] 04/24/2024 2:10 PM EDT Office Visit Pharmacy, [facility] 200 [place] [address] Pharmacist1, [facility] 200 [facility] [place] [address] 04/24/2024 2:40 PM EDT Office Visit General Internal Medicine [facility] [address] [place] [address] Orlin Castro MD 200 [place] [address] 04/27/2024 11:49 AM EDT Hospital Encounter OR [facility], Operating Room, [facility] - 4th Floor 400 [facility] [place] [address] Raymond Campbell MD [address] [place] [address] 04/27/2024 11:49 AM EDT - 04/27/2024 12:39 PM EDT Surgery OR [facility], Operating Room, [facility] - 4th Floor 400 [place] [address] Raymond Campbell MD [address] [place] [address] COLONOSCOPY FLEXIBLE PROXIMAL DIAGNOSTIC 07/04/2024 9:20 AM EST Office Visit General Internal Medicine [facility] [place] [facility] [place] [address] Orlin Castro MD 200 [facility] [place] [address] 10/03/2024 8:40 AM EDT Office Visit Nephrology, [facility] 200 [facility] [place] [address] Galindo Jean MD 200 [facility] [place] [address] Scheduled Procedures Name Priority Associated Diagnoses Date/Ti [...] 05/05, 03/06/2022, Additional history exists Albumin/Creatinine Ratio 05/05/20242 023, 05/14/2022, 05/01/2022, Additional history exists Depression Screening 06/22/2024 06/22/2023 HbA1c 07/01/2024 12/31/2023, 09/03, 05/31/2023, Additional history exists GFR 07/15/2024 01/13/2024, 10/03, 08/23/2023, Additional history exists Mammogram 09/13/2024 09/14/2023, 09/02, 09/11/2022, Additional history exists Diabetic Foot Exam 09/29/2024 09/30/2023, 0 08/07/2022, 08/21/2021, Additional history exists O2 ASSESSMENT COMPLETED IN PAST YEAR FOR COPD 01/04/2025 01/05/2024 CKD HGB USE SMARTSET 89396 01/12/202501/12, 01/13/2024, 08/03/2023, Additional history exists CKD PHOS USE SMARTSET 02774 01/12/202501/02, 08/23/2023, 08/03/2023, Additional history exists Sigmoidoscopy [...] this encounter Medical Devices Implanted Type Area Manager Project Management Device Identifier Shelf Expiration Date Model / Serial / Lot Stent Pancreatic Geenen 5fr - [id number] Implanted:Qty: 1 on 06/17/2010 [place] [facility] [place] [employer] 03/18/2013 [id number] / / [id number] Stent 10fr 7cm - [id number] Implanted:Qty: 1 on 06/17/2010 [place] [facility] [place] RADHA [place] 01/15/2013 [id number] / / [id number] Description:pancreas documented as of this encounter Advance [...] Power of Attor tanika? No Care Teams Regional [employer] Hazmat Tanker Driver Relationship Specialty Start Date End Date Orlin Castro MD 200 [place] [address] PCP - General Internal Medicine 04/27/19 documented as of this encounter
--- OUTSIDE RECORDS SUMMARY | 2024-03-13 08:23 | External Medical Summary | Summary of Care ---
Author Name Unknown Organization [facility] Address [address] [place] [address] Phone [phone] Care Team Providers Care Product Support Analyst Name Role Phone Orlin Castro MD [...] 400 Each 3 03/09/2019 Active Misc. Devices [facility] Tracheostomy Care Kit #4601 1 [...] Inhalation Suspension (Pulmicort) 0.25 mg. 2022 Active [employer] In Vitro Strip (Glucose Blood)Indications:T ype 2 [...] Description 02/17/2024 7:50 AM EDT Office Visit Optometry[place] 16 [place] [address] Rancho Chapman Jr., OD 16 [place] [address] 03/01/2024 8:30 AM EDT Office Visit Orthopaedics [facility] 132 [place] [address] Javon Bunn DO 132 [facility] [place] [address] 03/27/2024 8:40 AM EDT Office Visit Endocrinology [address] [place] [address] [place] [address] Nhung Monzon MD [address] [place] [address] 04/24/2024 2:10 PM EDT Office Visit Pharmacy, [facility] [place] [address] [place] [address] Pharmacist1, [facility] [address] [place] [address] 04/24/2024 2:40 PM EDT Office Visit General Internal Medicine [place] Samantha [place] 200 [facility] [place] [address] Orlin Castro MD 200 [facility] [place] [address] 04/27/2024 11:49 AM EDT Hospital Encounter OR [facility], Operating Room, [facility] - 4th Floor 400 [place] [address] Raymond Campbell MD [address] [place] [address] 04/27/2024 11:49 AM EDT - 04/27/2024 12:39 PM EDT Surgery OR [facility], Operating Room, [facility] - 4th Floor 400 [place] [address] Raymond Campbell MD [address] [place] [address] COLONOSCOPY FLEXIBLE PROXIMAL DIAGNOSTIC 07/04/2024 9:20 AM EST Office Visit General Internal Medicine [facility] [place] [address] [facility] [address] [place] [address] Orlin Castro MD 200 [facility] [place] [address] 10/03/2024 8:40 AM EDT Office Visit Nephrology, [facility] [address] [address] Galindo Jean MD 200 [facility] [place], [place] [address] Scheduled Procedures Name Priority Associated Diagnoses Date/Ti [...] COPD 01/04/2025 01/05/2024 CKD HGB USE SMARTSET 96031 01/12/202501/12, 01/13/2024, 08/03/2023, Additional history exists CKD PHOS USE SMARTSET 31424 01/12/202501/02, 08/23/2023, 08/03/2023, Additional history exists Sigmoidoscopy [...] this encounter Medical Devices Implanted Type Area Submersible Pilot Device Identifier Shelf Expiration Date Model / Serial / Lot Stent Pancreatic Geenen 5fr - [id number] Implanted:Qty: 1 on 06/17/2010 at OR [facility] [employer] 03/18/2013 [id number] / / [id number] Stent 10fr 7cm - [id number] Implanted:Qty: 1 on 06/17/2010 at OR [facility] [employer] : RADHA [place]NA 01/15/2013 [id number] / / [id number] Description:pancreas documented as of this encounter Advance [...] Power of Attor tanika? No Care Teams Product Support Analyst Relationship Specialty Start Date End Date Orlin Castro MD 200 [place] [address] PCP - General Internal Medicine 04/27/19 documented as of this encounter
--- OUTSIDE RECORDS SUMMARY | 2024-03-13 08:23 | External Medical Summary | Summary of Care ---
Author Name Unknown Organization [facility] Address [address] [place] [address] Phone [phone] Care Team Providers Care Referral Agent Name Role Phone Orlin Castro MD Primary Care Provider + Reason for Visit * Reason Onset Date Comments Test Results 01/17/2024 Encounter Details Date Type Department Care Team (Late st Contact Info) Description 01/17/2024 Telephone NephrologyAvni 200 [facility] [place] [address] Galindo Jean MD 200 [facility] [place] [address] Test Results Allergies Active Allergy Reactions Criticality [...] B, by GOLD 2017 classification ([facility]) Inhale via nebulizer . Use as directed. 1 Each 1 12/30/2021 Active Additional Information Patient not taking.Reported on 01/05/2024 Ipratropium-Albuter ol 0.5-2.5 (3) MG/3ML Inhalation Solution (Duoneb)Indications :COPD, group B, by GOLD 2017 classification ([facility]) Inhale via nebulizer 3 mL every 6 [...] goal of less than 7.0% ([facility]) Use to test blood glucose 4 times [...] Telephone Encounter - Lynn Cruz LPN - 01/24/2024 3:51 PM EDT MyG message was sent back unread Pt was made aware of test results and to continue everything the same * Telephone Encounter - Lynn Cruz LPN - 01/17/2024 10:04 AM EDT Attempted to contact only received voice mail [facility] will send MyG regarding test results * [...] 7:50 AM EDT Office Visit OptometryMarin [address] [place] [address] Ari Staley, [place], MAGGY [address] [place] [address] 03/01/2024 8:30 AM EDT Office Visit Orthopaedics [facility] [address] [place] [address] Javon Bunn DO [address] [place] [address] 03/27/2024 8:40 AM EDT Office Visit Endocrinology Enrique [facility] [place] [address] [place] [address] Nhung Monzon MD [address] [place] [address] 04/24/2024 2:10 PM EDT Office Visit Pharmacy, [facility] [address] [place] [address] Pharmacist1, [facility] [address] [place] [address] 04/24/2024 2:40 PM EDT Office Visit General Internal Medicine [facility] [address] [place] [address] Orlin Castro MD [address] [place] [address] 04/27/2024 11:49 AM EDT Hospital Encounter OR [facility], Operating Room, [facility] - 4th Floor [address] [place] [address] Raymond Campbell MD [address] [place] [address] 04/27/2024 11:49 AM EDT - 04/27/2024 12:39 PM EDT Surgery OR [facility], Operating Room, [facility] - 4th Floor [address] [place] [address] Raymond Campbell MD [address] [place] [address] COLONOSCOPY FLEXIBLE PROXIMAL DIAGNOSTIC 07/04/2024 9:20 AM EST Office Visit General Internal Medicine [facility] [place] 200 [facility] [address] Orlin Castro MD 200 [facility] [place] [address] 10/03/2024 8:40 AM EDT Office Visit Nephrology, [facility] 200 [facility] [address] [place] [address] Galindo Jean MD 200 [facility] [address] Scheduled Procedures Name Priority Associated Diagnoses Date/Ti [...] COPD 01/04/2025 01/05/2024 CKD HGB USE SMARTSET 89399 01/12/202501/12, 01/13/2024, 08/03/2023, Additional history exists CKD PHOS USE SMARTSET 62166 01/12/202501/02, 08/23/2023, 08/03/2023, Additional history exists Sigmoidoscopy [...] this encounter Medical Devices Implanted Type Area Incinerator Attendant Device Identifier Shelf Expiration Date Model / Serial / Lot Stent Pancreatic Geenen 5fr - [id number] Implanted:Qty: 1 on 06/17/2010 at OR [facility] [employer] 03/18/2013 [id number] / / [id number] Stent 10fr 7cm - [id number] Implanted:Qty: 1 on 06/17/2010 at OR [facility] COOK : RADHA [place] 01/15/2013 [id number] / / [id number] Description:pancreas documented as of this encounter Advance [...] Power of Attor tanika? No Care Teams Referral Agent Relationship Specialty Start Date End Date Orlin Castro MD 200 [place] [address] PCP - General Internal Medicine 04/27/19 documented as of this encounter
--- OUTSIDE RECORDS SUMMARY | 2024-03-13 08:23 | External Medical Summary | Summary of Care ---
Author Name Unknown Organization [facility] Address [address] [place] [address] Phone [phone] Care Team Providers Care Care Transitions Nurse Name Role Phone Orlin Castro MD [...] 400 Each 3 03/09/2019 Active Misc. Devices [facility] Tracheostomy Care Kit #4601 1 Each 10/02/2019 [...] Inhalation Suspension (Pulmicort) 0.25 mg. 2022 Active [employer] In Vitro Strip (Glucose Blood)Indications:T ype 2 [...] Description 02/17/2024 7:50 AM EDT Office Visit OptometryEnriqueLemhi 16 [place] [address] Rancho Chapman Jr., OD 16 [place] [address] 03/01/2024 8:30 AM EDT Office Visit Orthopaedics [facility] [address] [facility] [place] [address] Javon Bunn DO 132 [facility] [address] 03/27/2024 8:40 AM EDT Office Visit Endocrinology [address] [place] [place] [address] Nhung Monzon MD [address] [place] [address] 04/24/2024 2:10 PM EDT Office Visit Pharmacy, [facility] [place] [address] [place] [address] Pharmacist1, [facility] [address] [place] [address] 04/24/2024 2:40 PM EDT Office Visit General Internal Medicine [facility]is Samantha [place] 200 [facility] [place] [address] Orlin Castro MD 200 [facility] [place] [address] 04/27/2024 11:49 AM EDT Hospital Encounter OR [facility], Operating Room, [facility] - 4th Floor [address] [place] [address] Raymond Campbell MD [address] [place] [address] 04/27/2024 11:49 AM EDT - 04/27/2024 12:39 PM EDT Surgery OR [facility], Operating Room, [facility] - 4th Floor [address] [place] [address] Raymond Campbell MD [address] [place] [address] COLONOSCOPY FLEXIBLE PROXIMAL DIAGNOSTIC 07/04/2024 9:20 AM EST Office Visit [facility] Internal [facility] [place] [address] [facility] [address] [place] [address] Orlin Castro MD 200 [facility] [place] [address] 10/03/2024 8:40 AM EDT Office Visit Nephrology, [facility] [address] [place] [address] Galindo Jean MD 200 [facility] [place], [place] [address] Scheduled Procedures Name Priority Associated Diagnoses Date/Ti [...] COPD 01/04/2025 01/05/2024 CKD HGB USE SMARTSET 63093 01/12/202501/12, 01/13/2024, 08/03/2023, Additional history exists CKD PHOS USE SMARTSET 37529 01/12/202501/02, 08/23/2023, 08/03/2023, Additional history exists Sigmoidoscopy [...] encounter Medical Devices Implanted Type Area Manager Statistical Programming Device Identifier Shelf Expiration Date Model / Serial / Lot Stent Pancreatic Geenen 5fr - [id number] Implanted:Qty: 1 on 06/17/2010 at OR [facility] [employer] 03/18/2013 [id number] / / [id number] Stent 10fr 7cm - [id number] Implanted:Qty: 1 on 06/17/2010 at OR [facility] COOK : RADHA [place] 01/15/2013 [id number] / / [id number] Description:pancreas documented as of this encounter Advance [...] Power of Attor tanika? No Care Teams Care Transitions Nurse Relationship Specialty Start Date End Date Orlin Castro MD 200 [place] [address] PCP - General Internal Medicine 04/27/19 documented as of this encounter
--- OUTSIDE RECORDS SUMMARY | 2024-03-13 08:23 | External Medical Summary | Summary of Care ---
Author Name Unknown Organization [facility] Address [address] [place] [address] Phone [phone] Care Team Providers Care Physical Chemistry Professor Name Role Phone Orlin Castro MD Primary [...] 400 Each 3 03/09/2019 Active Misc. Devices [facility] Trache[facility] Care [facility] #4601 1 [...] s:COPD, group B, by GOLD 2017 classification ([facility]) Inhale via nebulizer . Use as directed. 1 Each 1 12/30/2021 Active Additional Information Patient not taking.Reported on 01/05/2024 Ipratropium-Albuter ol 0.5-2.5 (3) MG/3ML Inhalation Solution (Duoneb)Indications :COPD, group B, by GOLD 2017 classification ([facility]) Inhale via nebulizer 3 mL every [...] Inhalation Suspension (Pulmicort) 0.25 mg. 2022 Active [employer] In Vitro Strip (Glucose Blood)Indications:T ype 2 diabetes mellitus with hemoglobin A1c goal of less than 7.0% ([facility]) Use to test blood glucose 4 [...] Description 02/17/2024 7:50 AM EDT Office Visit OptometryEnriqueAugusta 16 [place] [address] Rancho Chapman Jr., OD 16 [place] [address] 03/01/2024 8:30 AM EDT Office Visit Orthopaedics [facility] 132 [place] [address] Javon Bunn DO 132 [facility] [address] 03/27/2024 8:40 AM EDT Office Visit Endocrinology [address] [place] [place] [address] Nhung Monzon MD [address] [place] [address] 04/24/2024 2:10 PM EDT Office Visit Pharmacy, [facility] [place] [address] [place] [address] Pharmacist1, [facility] [address] [place] [address] 04/24/2024 2:40 PM EDT Office Visit General Internal Medicine [facility] Samantha [place] 200 [facility] [place] [address] Orlin Castro MD 200 [facility] [place] [address] 04/27/2024 11:49 AM EDT Hospital Encounter OR [facility], Operating Room, [facility] - 4th Floor [address] [place] [address] Raymond Campbell MD [address] [place] [address] 04/27/2024 11:49 AM EDT - 04/27/2024 12:39 PM EDT Surgery OR [facility], Operating Room, [facility] - 4th Floor [address] [place] [address] Raymond Campbell MD [address] [place] [address] COLONOSCOPY FLEXIBLE PROXIMAL DIAGNOSTIC 07/04/2024 9:20 AM EST Office Visit [facility] [place] 200 [facility] [address] [place] [address] Orlin Castro MD 200 [facility] [place] [address] 10/03/2024 8:40 AM EDT Office Visit Nephrology, [facility] [address] [place] [address] Galindo Jean MD 200 [facility] [place], [place] [address] Scheduled Procedures Name Priority Associated Diagnoses Date/Ti [...] COPD 01/04/2025 01/05/2024 CKD HGB USE SMARTSET 31342 01/12/202501/12, 01/13/2024, 08/03/2023, Additional history exists CKD PHOS USE SMARTSET 41833 01/12/202501/02, 08/23/2023, 08/03/2023, Additional history exists Sigmoidoscopy [...] this encounter Medical Devices Implanted Type Area Preforming Machine Operator Device Identifier Shelf Expiration Date Model / Serial / Lot Stent Pancreatic Geenen 5fr - [id number] Implanted:Qty: 1 on 06/17/2010 at [facility] [employer] 03/18/2013 [id number] / / [id number] Stent 10fr 7cm - [id number] Implanted:Qty: 1 on 06/17/2010 at [place] [facility] [employer]OOK : RADHA [place] 01/15/2013 [id number] / / [id number] Description:pancreas documented as of this encounter Advance [...] Power of Attor tanika? No Care Teams Physical Chemistry Professor Relationship Specialty Start Date End Date Orlin Castro MD 200 [place] [address] PCP - General Internal Medicine 04/27/19 documented as of this encounter
[2024-03-13 08:30] LABS: Basophils # (auto) 0.18 K/uL (0.00-0.20); Basophils % (auto) 1.2 %; Eosinophils # (auto) 0.87 K/uL (0.00-0.50); Eosinophils % (auto) 5.9 %; Hematocrit (blood only) 45.8 % (37.0-47.0); Hemoglobin 15.8 g/dl (12.0-16.0); Immature Granulocytes # (auto) 0.15 K/uL (0.01-0.20); Lymphocytes # (auto) 2.44 K/uL (1.20-3.40); Lymphocytes % (auto) 16.5 %; Mean Corpuscular Hemoglobin 28.5 pg (25.0-34.0); Mean Corpuscular Hgb Conc 34.5 g/dL (32.0-36.0); Mean Corpuscular Volume 82.5 fL (80.0-100.0); Mean Platelet Volume 9.3 fL (9.4-12.4); Monocytes # (auto) 0.48 K/uL (0.11-0.59); Monocytes % (auto) 3.2 %; Neutrophils # (auto) 10.65 K/uL (1.40-6.50); Neutrophils % (auto) 72.2 %; Platelet Count 484 K/uL (130-400); RDW Coefficient of Variation 15.6 % (11.5-14.5); RDW Standard Deviation 46.5 fL (36.4-46.3); Red Blood Count 5.55 M/uL (4.20-5.40); White Blood Count 14.77 K/ul (4.8-10.8)
[2024-03-13] MEDS: ALBUT/IPRATROP 3MG/0.5MG NEB 3 ML VIAL NEB STA (08:31)
--- NOTE | 2024-03-13 08:45 | XRay Report ---
XR soft tissue neck CLINICAL HISTORY: trach COMPARISON STUDY: Chest radiograph January 23, 2024. Chest CT October 15, 2022. FINDINGS: Surgical staple lines postoperative findings within the neck are noted. There is a tracheos chika. No definite tracheostomy tube is identified. There are no unexpected radiopaque foreign bodies. IMPRESSION: 1. Status post tracheostomy. No definite tracheostomy tube identified. 2. Postoperative findings within the neck. ACT 112: Negative or not required by law. Electronically signed by: Matthieu Chappell M.D. 03/13/2024 8:44 AM
[2024-03-13 08:48] LABS: Albumin Globulin Ratio 1.3 (0.9-2); Albumin Level 4.8 gm/dl (3.4-5.0); BUN Creatinine Ratio 20.8 (10-20); Bilirubin,Total 0.3 mg/dl (0.2-1.0); Calcium 8.8 mg/dl (8.6-10.3); Creatinine Clr Calc Pharmacy 43.5 ml/min; Est GFR (African American) 54.2 ml/min; Est GFR (Non-African American) 46.7 ml/min; Globulin 3.7 gm/dl (2.5-4.0); Potassium 3.8 mmol/L (3.5-5.1); Total Protein 8.5 gm/dl (6.0-8.3)
[2024-03-13 08:54] LABS: Troponin I High Sensitivity 12.8 pg/ml (0-14)
--- NOTE | 2024-03-13 08:56 | XRay Report ---
SINGLE VIEW CHEST CLINICAL HISTORY: Atypical chest pain. FINDINGS: An AP, portable, upright chest radiograph is compared to study dated 01/23/2024. Correlation is made with chest CT dated 10/15/2022. A tracheostomy is in place. The cardiomediastinal silhouette is unremarkable noting atherosclerotic calcification of the thoracic aorta. Chronic interstitial thic kening is similar to previous. There is mild bibasilar scarring/atelectasis. The lungs and pleural sp aces are otherwise clear. No pneumothorax is seen. The skeletal structures are osteopenic. The bony t horax is grossly intact. IMPRESSION: No active disease in the chest. ACT 112: Negative or not required by law. Electronically signed by: Vic Vásquez M.D. 03/13/2024 8:55 AM
[2024-03-13 09:22] LABS: Adenovirus PCR Not Detected (NotDetected); Bordetella parapertussis PCR Not Detected (NotDetected); Bordetella pertussis PCR Not Detected (NotDetected); Chlamydia pneumoniae PCR Not Detected (NotDetected); Coronavirus 229E PCR Not Detected (NotDetected); Coronavirus CoV-2 (COVID19)PCR Not Detected (NotDetected); Coronavirus HKU1 PCR Not Detected (NotDetected); Coronavirus NL63 PCR Not Detected (NotDetected); Coronavirus OC43PCR Not Detected (NotDetected); Human Metapneumovirus PCR Not Detected (NotDetected); Influenza A PCR Not Detected (NotDetected); Influenza B PCR Not Detected (NotDetected); Mycoplasma pneumoniae PCR Not Detected (NotDetected); Parainfluenza Virus 1 PCR Not Detected (NotDetected); Parainfluenza Virus 2 PCR Not Detected (NotDetected); Parainfluenza Virus 3 PCR Not Detected (NotDetected); Parainfluenza Virus 4 PCR Not Detected (NotDetected); Respiratory Syncytial VirusPCR Not Detected (NotDetected); Rhinovirus/Enterovirus PCR Not Detected (NotDetected)
--- NOTE | 2024-03-13 10:11 | History & Physical Report ---
Date of Service March 13, 2024 Assessment & Plan (1) Acute exacerbation of chronic obstructive airways disease: Plan: This is a 68 y/o female with history of thyroid/throat cancer s/p laryngectomy with tracheostomy, pancreatic cancer s/p Whipple procedure, type 2 diabetes, COPD, DVT (post-surgical), hypertension, hyperlipidemia and other medical problems listed below who presents to the ED today with worsening cough and shortness of breath for two days. BioFire in the ED was negative. Chest x-ray personally reviewed - no consolidation noted. Initial labs reveal leukocytosis. Pt is currently on 10L oxygen via trach collar with sats in the upper 80s to low 90s. Clinical picture seems most consistent with mucus plugging. Respiratory therapy called and coming to evaluate patient due to dropping sats in the ED. - Admit to PCU - Continue O2 titrated to effect - Consult pulmonology for additional recommendations - Check procal, lactate - Solu-Medrol 40 mg IV BID - Doxycycline empirically - Percussion therapy, flutter valve - DuoNebs, hypertonic saline - Labs in the AM - CBC, BMP, Mg - Continue Mucinex BID - Aspiration precautions, NPO for now (2) Acute and chronic respiratory failure with hypoxia: Plan: See plan for #1 (3) Type 2 diabetes mellitus: Plan: Last A1c was 8.5 on 01/24/24 Basal insulin with sliding scale prn BSG ACHS Holding oral agents (4) Tracheostomy in place: Plan: chronic (5) Acute kidney injury superimposed on CKD: Plan: Baseline creatinine appears to be around 0.8, today's creatinine is 1.2 Gentle IVF Labs in the AM Plan Pt seen and reviewed with collaborating physician, Dr. Dunlap. Plan of care discussed and as outlined above. Code status: Full code DVT Prophylaxis: subQ heparin - will monitor closely due to recent hemoptysis Admit to PCU Ja Liriano PA-C History of Present Illness Chief Complaint: cough, shortness of breath Primary Care Provider: Orlin Castro MD This is a 68 y/o female with history of thyroid/throat cancer s/p laryngectomy with tracheostomy, pancreatic cancer s/p Whipple procedure, type 2 diabetes, COPD, DVT (post-surgical), hypertension, hyperlipidemia and other medical problems listed below who presents to the ED today with worsening cough and shortness of breath for two days. Pt reports that she was in her usual state of health until the last few days. On Wednesday, she irrigated and was able to expectorate a large amount of mucus with bloody streaks. However, for the last two days, she had not be able to get any mucus up although she feels like she needs to. She notes frequent dry cough and feeling short of breath with chest tightness and wheezing. She denies fevers, chills, N/V. No recent sick contacts. Does not recall any recent episode of aspiration. At baseline, she does not require oxygen. However, she has been on 10L via trach collar since being in the ED. Her sats were initially in the upper 90s. Currently, she is having increased difficulty breathing with episode of coughing and sats dropped into the upper 80s/low 90s. She had some transient relief with initial one hour neb given in the ED but feels like this relief is wearing off. Of note, pt was most recently admitted to this facility 01/22-01/26 with hypoxic respiratory failure related to COVID-19. She was treated with remdesivir, steroids, and azithromycin with improvement. Allergies Allergy/AdvReac Type Severity Reaction Status Date / Time zolpidem [From Ambien] Allergy Severe pysch Verified 03/13/24 10:36 complications, dizzy NSAIDS (Non-Steroidal Allergy Intermediate Ulcer & Verified 03/13/24 10:36 Anti-Inflamma anemia hydrochlorothiazide AdvReac Intermediate Acute Verified 03/13/24 10:36 kidney injury rosuvastatin [From Crestor] AdvReac Intermediate Elavated Verified 03/13/24 10:36 liver function test Home Medications Medication Instructions Recorded Confirmed Type losartan 100 mg tablet (Cozaar) 100 mg PO QAM 08/09/19 03/13/24 History repaglinide 1 mg tablet 0.5 mg PO UD 11/27/21 03/13/24 History amlodipine 10 mg tablet 10 mg PO QAM 07/30/22 03/13/24 History blood-glucose sensor (Dexcom G6 07/30/22 06/16/23 History Sensor device) carvedilol 25 mg tablet 25 mg PO BID 07/30/22 03/13/24 History levothyroxine 200 mcg tablet 200 mcg PO DAILYBB 07/30/22 03/13/24 History cyclobenzaprine 10 mg tablet 10 mg PO HS PRN Muscle Spasm 10/15/22 03/13/24 History cyanocobalamin (vitamin B-12) 1,000 mcg PO DAILY 06/16/23 03/13/24 History 1,000 mcg tablet (Vitamin B-12) ezetimibe 10 mg tablet 10 mg PO QAM 06/16/23 03/13/24 History formoterol fumarate 20 mcg/2 mL 20 mcg NEB BIDR PRN Shortness Of 06/16/23 03/13/24 History solution for nebulization Breath Or Wheezing (Perforomist) ipratropium 0.5 mg-albuterol 3 mg 0 ml inhalation Q6 PRN Shortness 06/16/23 03/13/24 History (2.5 mg base)/3 mL nebulization Of Breath Or Wheezing soln ferrous sulfate 325 mg (65 mg 325 mg PO TID 01/23/24 03/13/24 History iron) tablet metformin 500 mg tablet,extended 500 mg PO BID 01/23/24 03/13/24 History release 24 hr pantoprazole 40 mg tablet,delayed 40 mg PO DAILY 01/23/24 03/13/24 History release repaglinide 2 mg tablet 2 mg PO BIDM 01/23/24 03/13/24 History sodium chloride 7 % for 0 inh inhalation BID 01/23/24 03/13/24 History nebulization guaifenesin 600 mg tablet, 1,200 mg (2 x 600 mg) PO BID #20 01/27/24 03/13/24 Rx extended release 12 hr (Mucinex) tabs Past Med/Surg History Problem List (Updated 03/13/24 @ 11:10 by Viri Liriano PA-C) Acute kidney injury superimposed on CKD Type 2 diabetes mellitus Diabetes mellitus type 2, controlled, without complications Acute respiratory failure due to COVID-19 Acute exacerbation of chronic obstructive airways disease (Acute) Sepsis Hypoxia (Acute) COPD exacerbation (Acute) Tracheobronchitis, acute or subacute, with bronchospasm or obstruction (Acute) Profound anemia Tracheostomy in place Encounter for pre-operative examination Familial adenomatous polyposis Hypertensive urgency Acute exacerbation of chronic obstructive pulmonary disease (COPD) Hypoxia (Acute) Hypertension (Acute) SOB (shortness of breath) (Acute) Wheezing (Acute) ALONA (acute kidney injury) (Acute) Metabolic acidosis Asthma exacerbation Acute kidney injury H/O deep venous thrombosis Psoriasis Hypoxia (Acute) URI (upper respiratory infection) Status post tracheostomy Acute and chronic respiratory failure with hypoxia COPD with acute exacerbation Acute bronchitis Multiple pulmonary nodules Osteoarthritis of knees, bilateral Stenosis of tracheal stoma CKD (chronic kidney disease), stage III Chronic obstructive pulmonary disease Diabetes History of Whipple procedure X 2-LAST 2012 Hyperlipidemia Hypertension History of thyroid cancer Papillary thyroid carcinoma (with throat cancer per patient) 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 S/p stomaplasty (11/2020) and tracheostoma revision (05/2021) S/p thyroidectomy No chemo or XRT History of throat cancer Dxed 2006- s/p laryngectomy with trach placement No chemo or XRT History of pancreatic cancer 2016 S/p Whipple procedure No chemo or XRT Hypoxia Medical History Adrenal adenoma Asthma Chronic obstructive pulmonary disease CKD (chronic kidney disease), stage III Coagulopathy Diabetes DVT (deep venous thrombosis) WITH SURGERY TRACH 2004-WAS ON BLOOD THINNER FOR A PERIOD OF TIME-THEN OFF-NO ISSUES SINCE History of colon cancer Dx'ed in 2002 (has familial adenomatous polyposis) S/p ileostomy and then J pouch procedure No chemo or XRT History of pancreatic cancer 2016 S/p Whipple procedure No chemo or XRT History of throat cancer Dxed 2006- s/p laryngectomy with trach placement No chemo or XRT History of thyroid cancer Papillary thyroid carcinoma (with throat cancer per patient) 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 S/p stomaplasty (11/2020) and tracheostoma revision (05/2021) S/p thyroidectomy No chemo or XRT Hyperlipidemia Hypertension Hypothyroidism associated with surgical procedure Hypoxia Murmur, cardiac F/U DR DEE ACEVEDO No murmur per routine 06/2021 cardio visit SOB (shortness of breath) on exertion 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 No current issues Surgical History History of bowel resection WITH J POUCH History of colonoscopy History of esophagogastroduodenoscopy (EGD) History of hernia repair 12/15/21 @ [facility] History of radical neck dissection WITH TRACHEOSTOMY-2004 History of thyroidectomy History of Whipple procedure X 2-LAST 2012 Family History Family/Other Heart disease Lung disease Cancer Father Family hx of colon cancer Sister Family hx of colon cancer Other No family history of adverse response to anesthesia Social History Smoking Status: Former smoker Tobacco Type: Cigarettes Second Hand Exposure: No; Do You Dip or Chew Tobacco: No; Hx Alcohol Use: No Hx Substance Use: No Preferred Language: Tuvaluan Communication Ability: Effective Communication Ability Comment: Patient uses a Cervox since she has 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 Vice President Required: No Beliefs That Will Affect Care: None marital status: Current Living Situation: Alone current occupational status: disabled Feels Safe at Home: Yes Assistive Devices: Nebulizer Review of Systems Review of Systems: All systems reviewed & are unremarkable except as noted in Subjective Physical Exam Physical Exam: Please see physician note for details of the physical exam. Results & Data Results & Data Vital Signs (Past 12 Hours) Vital Signs Temp Pulse Pulse Resp BP BP Pulse Ox 03/13/24 10:05 84 20 161/96 H 98 03/13/24 08:42 89 24 98 03/13/24 08:40 136/98 03/13/24 08:39 96 H 27 H 98 03/13/24 08:32 100 H 30 H 97 03/13/24 08:24 92 H 31 H 97 03/13/24 08:18 90 03/13/24 08:18 100 03/13/24 08:15 90 22 99 03/13/24 08:15 36.5 C 88 26 H 168/108 H 99 03/13/24 08:15 88 24 99 03/13/24 08:10 168/108 H 03/13/24 08:09 95 H 21 98 03/13/24 08:05 36.5 C 93 H 26 H 168/108 H 98 O2 Del Method O2 Flow Rate FiO2 03/13/24 10:05 Trach Collar 9 03/13/24 08:42 03/13/24 08:40 03/13/24 08:39 03/13/24 08:32 Trach Collar 50 03/13/24 08:24 03/13/24 08:18 03/13/24 08:18 Trach Collar 10 03/13/24 08:15 03/13/24 08:15 Trach Collar 10 03/13/24 08:15 Trach Collar 10 03/13/24 08:10 03/13/24 08:09 03/13/24 08:05 Trach Collar 10 Laboratory Results Lab Results 03/13/24 Range/Units 08:12 WBC 14.77 H (4.8-10.8) K/ul RBC 5.55 H (4.20-5.40) M/uL Hgb 15.8 (12.0-16.0) g/dl Hct 45.8 (37.0-47.0) % MCV 82.5 (80.0-100.0) fL MCH 28.5 (25.0-34.0) pg MCHC 34.5 (32.0-36.0) g/dL RDW Std Deviation 46.5 H (36.4-46.3) fL RDW Coeff of Monika 15.6 H (11.5-14.5) % Plt Count 484 H (130-400) K/uL MPV 9.3 L (9.4-12.4) fL Immature Gran % (Auto) 1.0 % Neut % (Auto) 72.2 % Lymph % (Auto) 16.5 % [place] % (Auto) 3.2 % Eos % (Auto) 5.9 % Baso % (Auto) 1.2 % Neut # (Auto) 10.65 H (1.40-6.50) K/uL Lymph # (Auto) 2.44 (1.20-3.40) K/uL [place] # (Auto) 0.48 (0.11-0.59) K/uL Eos # (Auto) 0.87 H (0.00-0.50) K/uL Baso # (Auto) 0.18 (0.00-0.20) K/uL Immature Gran # (Auto) 0.15 (0.01-0.20) K/uL Sodium 140 (136-145) mmol/L Potassium 3.8 (3.5-5.1) mmol/L Chloride 101 (98-107) mmol/L Carbon Dioxide 29 (21-32) mmol/L Anion Gap 10 (3-11) BUN 25 H (6-23) mg/dl Creatinine 1.20 (0.6-1.2) mg/dl Est Cr Clr Drug Dosing 43.5 ml/min Est GFR ( Amer) 54.2 ml/min Est GFR (Non-Af Amer) 46.7 ml/min BUN/Creatinine Ratio 20.8 H (10-20) Glucose 209 H (70-99(Fasting)) mg/dl Calcium 8.8 (8.6-10.3) mg/dl Total Bilirubin 0.3 (0.2-1.0) mg/dl AST 29 (13-39) U/L ALT 21 (7-52) U/L Alkaline Phosphatase 163 H (34-104) U/L Troponin I High Sens 12.8 (0-14) pg/ml Total Protein 8.5 H (6.0-8.3) gm/dl Albumin 4.8 (3.4-5.0) gm/dl Globulin 3.7 (2.5-4.0) gm/dl Albumin/Globulin Ratio 1.3 (0.9-2) Lipase 4 L (11-82) U/L Adenovirus (PCR) Not Detected (NotDetected) B. pertussis DNA (PCR) Not Detected (NotDetected) B.parapertussis DNA PCR Not Detected (NotDetected) C. pneumoniae DNA (PCR) Not Detected (NotDetected) Coronavirus OC43 (PCR) Not Detected (NotDetected) Coronavirus HKU1 (PCR) Not Detected (NotDetected) Coronavirus 229E (PCR) Not Detected (NotDetected) SARS-CoV-2 (PCR) Not Detected (NotDetected) Coronavirus NL63 (PCR) Not Detected (NotDetected) Human Metapneumovir PCR Not Detected (NotDetected) Influenza Type A (PCR) Not Detected (NotDetected) Influenza Type B (PCR) Not Detected (NotDetected) M. pneumoniae (PCR) Not Detected (NotDetected) Parainfluenza 1 (PCR) Not Detected (NotDetected) Parainfluenza 2 (PCR) Not Detected (NotDetected) Parainfluenza 3 (PCR) Not Detected (NotDetected) Parainfluenza 4 (PCR) Not Detected (NotDetected) RSV (PCR) Not Detected (NotDetected) Entero/Rhino (PCR) Not Detected (NotDetected) Diagnostic Findings Chest X-Ray 03/13/24 08:05 SINGLE VIEW CHEST CLINICAL HISTORY: Atypical chest pain. FINDINGS: An AP, portable, upright chest radiograph is compared to study dated 01/23/2024. Correlation is made with chest CT dated 10/15/2022. A tracheostomy is in place. The cardiomediastinal silhouette is unremarkable noting atherosclerotic calcification of the thoracic aorta. Chronic interstitial thickening is similar to previous. There is mild bibasilar scarring/atelectasis. The lungs and pleural spaces are otherwise clear. No pneumothorax is seen. The skeletal structures are osteopenic. The bony thorax is grossly intact. IMPRESSION: No active disease in the chest. ACT 112: Negative or not required by law. Electronically signed by: Vic áVsquez M.D. 03/13/2024 8:55 AM Soft Tissue Neck X-Ray 03/13/24 08:08 XR soft tissue neck CLINICAL HISTORY: trach COMPARISON STUDY: Chest radiograph January 23, 2024. Chest CT October 15, 2022. FINDINGS: Surgical staple lines postoperative findings within the neck are noted. There is a tracheostomy. No definite tracheostomy tube is identified. There are no unexpected radiopaque foreign bodies. IMPRESSION: 1. Status post tracheostomy. No definite tracheostomy tube identified. 2. Postoperative findings within the neck. ACT 112: Negative or not required by law. Electronically signed by: Matthieu Chappell M.D. 03/13/2024 8:44 AM Medications Administered Discontinued Medications Albuterol (Albut/Ipratrop 3mg/0.5mg Neb 3 Ml Vial) 12 ml NEB NOW STA; Protocol Stop: 03/13/24 08:06 Last Admin: 03/13/24 08:31 Dose: 12 ml Documented By: CHENCHO Prednisone (Prednisone 50 Mg Tab) 50 mg PO NOW STA Stop: 03/13/24 08:06 Last Admin: 03/13/24 08:21 Dose: 50 mg Documented By: BELINDA Supervising Physician Co-Signing Physician Notes Patient is a 68-year-old female with history of COPD, pancreatic cancer S/P Whipple's procedure,, thyroid cancer S/P thyroidectomy, diabetes mellitus,throat cancer s/p laryngectomy with tracheostomy, Gross syndrome, colon cancer, stoma stenosis S/P stomaplasty, primary aldosteronism per record and other medical problems presents with history of worsening cough, shortness of breath for the past 2 days. Patient states that she feels her chest is tight and she had diffi culty expectorating mucus. She admits to have minimal hemoptysis on Wednesday. She denies any chest pain, fever, chills, nausea, vomiting, abdominal pain, diarrhea. Please review HPI for complete details of presentation. Patient was hypoxic while in ED requiring 10 L of supplemental oxygen to maintain saturation. BioFire negative. Chest x-ray showed no acute process. White count elevated 14.7 K. I personally reviewed blood work and imaging studies. Potassium, lactic acid levels, magnesium levels currently pending. Physical Exam: Vitals signs as noted above General Appearance:Moderately built and nourished, mild respiratory distress Head: normocephalic, Atraumatic Eyes: normal inspection, EOMI Neck: supple, Trachea midline, + trach Respiratory/Chest: Decreased coarse breath sounds, b/l rhonchi, scattered wheezing, minimal accessory muscle use Cardiovascular: S1, S2, No murmur Abdomen/GI:Soft, Non tender, Bowel sounds present Extremities/Musculoskeletal:normal inspection, no edema Neurologic/Psych:AAOX3, grossly no focal neurological deficits Skin: normal color, warm Acute on chronic respiratory failure with hypoxia Mucous plugging Mild COPD exacerbation Procalcitonin, lactate levels currently pending Chest x-ray showed no acute process Started on IV Solu-Medrol, hypertonic saline scheduled nebs Vibration vest, flutter, Mucinex Continue supplemental oxygen as needed Pulmonology consulted Also started on doxycycline May benefit from bronchoscopy Check magnesium levels Aspiration precautions Hypertensive urgency Likely situational secondary to respiratory distress Resume home antihypertensives Monitor BP DM Type II: Will hold oral diabetic meds Last A1c: 8.5 ISS, basal Insulin, Accu checks monitor blood glucose levels Other chronic conditions Pancreatic cancer Bladder cancer Throat cancer S/P tracheostomy Colon cancer Gross syndrome Continue home medications as able I personally interviewed and examined at bedside. Patient's care is coordinated with Viri Liriano PA-C. I have reviewed the advanced practitioner's documentation, and I agree with plan of care. Please refer to the documentation above for details of patient's presentation and for discussion of other issues. I spent a total of38 minutes coordinating, documenting, and providing care for this patient excluding time spent in the performance of separately billed servi loli. (3) Type 2 diabetes mellitus Diabetes mellitus complication status: with other specified complication Diabetes mellitus manager intermediate insulin use: without senior living use Qualified Code(s): E11.69 - Type 2 diabetes mellitus with other specified complication
--- NOTE | 2024-03-13 12:05 | Pulmonary Consultation ---
Date of Consultation March 13, 2024 Assessment & Plan (1) Acute exacerbation of chronic obstructive airways disease: (2) Hypoxia: (3) Tracheostomy in place: (4) Wheezing: (5) History of thyroid cancer: (6) Acute respiratory failure with hypoxia: Plan Chest x-ray 03/13/2024 personally reviewed: Portable film, good inspiratory effort, bilateral costophrenic and cardiophrenic angles are clean, no clear lung infiltrate appreciated -- Acute hypoxic respiratory failure Likely secondary to COPD exacerbation Procalcitonin negative Respiratory bio fire Negative on 03/13/2024 Continue with bronchodilators Continue with steroids -- COPD Plan as above --Pulmonary nodules Bilateral upper lobes Continue to monitor given the history of laryngeal CA Follows up with [facility] pulmonary as an outpatient --History of laryngeal CA S/p total laryngectomy 2006 Plan: Solu-Medrol 40 mg 3 times daily Brovana and budesonide nebulized. Mucinex along with hypertonic saline Aggressive suctioning by RT Please note the above document was generated using voice recognition software. It may contain grammatical, syntax or spelling errors.Any formal questions or concerns about the content, text or information contained within the body of this dictation should be directly addressed to the provider for clarification. History of Present Illness History of Present Illness 68-year-old female present to the hospital with complaints of worsening shortness of breath Past medical history: Throat cancer s/p Laryngectomy in 2006, pancreatic cancer s/p Whipple procedure, type 2 diabetes, COPD Pulmonary consulted for hypoxia At the time of examination patient was resting comfortably on the bed. She was saturating 93-94% on 10 L trach collar She has been complaining of coughing and difficulty bringing up the phlegm for the last couple of days progressively getting worse When she does bring up the phlegm it is thick and sticky. Denies any hemoptysis Denies any fever or chills. No chest pain. Has been wheezing. No nausea or vomiting. Patient has internal ileostomy so she always has loose stools. They have not changed in consistency or frequency. No night sweats, no unintentional weight loss Denies any headache, no blurry vision Social history: Used to be heavy smoker, quit in 2006 Allergies Allergy/AdvReac Type Severity Reaction Status Date / Time zolpidem [From Ambien] Allergy Severe pysch Verified 03/13/24 10:36 complications, dizzy NSAIDS (Non-Steroidal Allergy Intermediate Ulcer & Verified 03/13/24 10:36 Anti-Inflamma anemia hydrochlorothiazide AdvReac Intermediate Acute Verified 03/13/24 10:36 kidney injury rosuvastatin [From Crestor] AdvReac Intermediate Elavated Verified 03/13/24 10:36 liver function test Home Medications Medication Instructions Recorded Confirmed Type losartan 100 mg tablet (Cozaar) 100 mg PO QAM 08/09/19 03/13/24 History repaglinide 1 mg tablet 0.5 mg PO UD 11/27/21 03/13/24 History amlodipine 10 mg tablet 10 mg PO QAM 07/30/22 03/13/24 History blood-glucose sensor (Dexcom G6 07/30/22 06/16/23 History Sensor device) carvedilol 25 mg tablet 25 mg PO BID 07/30/22 03/13/24 History levothyroxine 200 mcg tablet 200 mcg PO DAILYBB 07/30/22 03/13/24 History cyclobenzaprine 10 mg tablet 10 mg PO HS PRN Muscle Spasm 10/15/22 03/13/24 History cyanocobalamin (vitamin B-12) 1,000 mcg PO DAILY 06/16/23 03/13/24 History 1,000 mcg tablet (Vitamin B-12) ezetimibe 10 mg tablet 10 mg PO QAM 06/16/23 03/13/24 History formoterol fumarate 20 mcg/2 mL 20 mcg NEB BIDR PRN Shortness Of 06/16/23 03/13/24 History solution for nebulization Breath Or Wheezing (Perforomist) ipratropium 0.5 mg-albuterol 3 mg 0 ml inhalation Q6 PRN Shortness 06/16/23 03/13/24 History (2.5 mg base)/3 mL nebulization Of Breath Or Wheezing soln ferrous sulfate 325 mg (65 mg 325 mg PO TID 01/23/24 03/13/24 History iron) tablet metformin 500 mg tablet,extended 500 mg PO BID 01/23/24 03/13/24 History release 24 hr pantoprazole 40 mg tablet,delayed 40 mg PO DAILY 01/23/24 03/13/24 History release repaglinide 2 mg tablet 2 mg PO BIDM 01/23/24 03/13/24 History sodium chloride 7 % for 0 inh inhalation BID 01/23/24 03/13/24 History nebulization guaifenesin 600 mg tablet, 1,200 mg (2 x 600 mg) PO BID #20 01/27/24 03/13/24 Rx extended release 12 hr (Mucinex) tabs Patient History Medical History Adrenal adenoma Asthma Chronic obstructive pulmonary disease CKD (chronic kidney disease), stage III Coagulopathy Diabetes DVT (deep venous thrombosis) WITH SURGERY TRACH 2005-WAS ON BLOOD THINNER FOR A PERIOD OF TIME-THEN OFF-NO ISSUES SINCE History of colon cancer Dx'ed in 2002 (has familial adenomatous polyposis) S/p ileostomy and then J pouch procedure No chemo or XRT History of pancreatic cancer 2016 S/p Whipple procedure No chemo or XRT History of throat cancer Dxed 2006- s/p laryngectomy with trach placement No chemo or XRT History of thyroid cancer Papillary thyroid carcinoma (with throat cancer per patient) 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 S/p stomaplasty (11/2020) and tracheostoma revision (05/2021) S/p thyroidectomy No chemo or XRT Hyperlipidemia Hypertension Hypothyroidism associated with surgical procedure Hypoxia Murmur, cardiac F/U DR DEE ACEVEDO No murmur per routine 06/2021 cardio visit SOB (shortness of breath) on exertion 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 No current issues Surgical History History of bowel resection WITH J POUCH History of colonoscopy History of esophagogastroduodenoscopy (EGD) History of hernia repair 12/15/21 @ [facility] History of radical neck dissection WITH TRACHEOSTOMY-2004 History of thyroidectomy History of Whipple procedure X 2-LAST 2012 Family History Family/Other Heart disease Lung disease Cancer Father Family hx of colon cancer Sister Family hx of colon cancer Other No family history of adverse response to anesthesia Social History Smoking Status: Former smoker Tobacco Type: Cigarettes Second Hand Exposure: No; Do You Dip or Chew Tobacco: No; Hx Alcohol Use: No Hx Substance Use: No Preferred Language: Khmer Communication Ability: Effective Communication Ability Comment: Patient uses a Cervox since she has 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 Beliefs That Will Affect Care: None marital status: Current Living Situation: Alone current occupational status: disabled Feels Safe at Home: Yes Assistive Devices: Nebulizer Review of Systems 2 Review of Systems: All systems reviewed & are unremarkable except as noted in HPI & below Physical Exam 2 Physical Exam: Constitutional: No acute distress HEENT: EOMI, PERRLA, tracheostomy opening in place Respiratory system: Decreased air entry bilaterally, no rhonchi, no crackles, diffuse expiratory wheeze bilaterally CVS: S1-S2 positive, no murmurs or gallops Abdomen: Soft, nontender, nondistended, positive bowel sounds x4 Extremities: +2 pulses bilaterally radialis/ dorsalis pedis, no cyanosis, no edema Neuro: Awake alert oriented x3 Psych: Normal mood and affect G/U: No Madsen Skin: no rashes, warm and dry Lymphatic: no cervical or axillary lymphadenopathy Results & Data Results & Data Vital Signs (Past 12 Hours) Vital Signs Temp Pulse Pulse Resp BP BP Pulse Ox 03/13/24 10:40 94 03/13/24 10:34 87 L 03/13/24 10:33 94 H 23 87 L 03/13/24 10:31 182/106 H 03/13/24 10:27 93 H 27 H 92 03/13/24 10:24 107 H 32 H 03/13/24 10:15 86 20 97 03/13/24 10:05 84 20 161/96 H 98 03/13/24 10:03 84 22 98 03/13/24 10:00 161/96 H 03/13/24 09:48 93 H 17 96 03/13/24 09:30 159/94 H 03/13/24 09:21 89 21 97 03/13/24 09:15 80 23 99 03/13/24 09:00 173/95 H 03/13/24 08:57 90 27 H 99 03/13/24 08:42 89 24 98 03/13/24 08:40 136/98 03/13/24 08:39 96 H 27 H 98 03/13/24 08:32 100 H 30 H 97 03/13/24 08:24 92 H 31 H 97 03/13/24 08:18 90 03/13/24 08:18 100 03/13/24 08:15 90 22 99 03/13/24 08:15 36.5 C 88 26 H 168/108 H 99 03/13/24 08:15 88 24 99 03/13/24 08:10 168/108 H 03/13/24 08:09 95 H 21 98 03/13/24 08:05 36.5 C 93 H 26 H 168/108 H 98 O2 Del Method O2 Flow Rate FiO2 03/13/24 10:40 Trach Collar 10 03/13/24 10:34 Trach Collar 10 03/13/24 10:33 03/13/24 10:31 03/13/24 10:27 03/13/24 10:24 03/13/24 10:15 03/13/24 10:05 Trach Collar 9 03/13/24 10:03 03/13/24 10:00 03/13/24 09:48 03/13/24 09:30 03/13/24 09:21 03/13/24 09:15 03/13/24 09:00 03/13/24 08:57 03/13/24 08:42 03/13/24 08:40 03/13/24 08:39 03/13/24 08:32 Trach Collar 50 03/13/24 08:24 03/13/24 08:18 03/13/24 08:18 Trach Collar 10 03/13/24 08:15 03/13/24 08:15 Trach Collar 10 03/13/24 08:15 Trach Collar 10 03/13/24 08:10 03/13/24 08:09 03/13/24 08:05 Trach Collar 10 Laboratory Results 03/13/24 08:12 03/13/24 08:12 PG Care Time/CCT Total # of Minutes Spent Total Time Spent with Patient: Total time spent is greater than 50% in coordination of care (as documented) at patient's floor/unit and/or counseling patient: Coding Level of Care Code 46970 INT INP/OBS CARE 3/75MIN Diagnoses Acute exacerbation of chronic obstructive airways disease J44.1 Hypoxia R09.[address] Z93.0 Wheezing R06.2 History of thyroid cancer Z85.850 Acute respiratory failure with hypoxia J96.01
[2024-03-13] MEDS: methylPREDNISolone 40 MG in SYRINGE 0 ML IV SCH (13:08)
[2024-03-13] MEDS: DOXYCYCLINE HYCLATE 100 MG in DEXTROSE 5% MINI-B 100 ML IV SCH (13:08)
--- NOTE | 2024-03-13 13:10 | Electrocardiogram Report ---
Test Reason : Blood Pressure : */* mmHG Vent. Rate : 94 BPM Atrial Rate : 94 BPM P-R Int : 142 ms QRS Dur : 84 ms QT Int : 400 ms P-R-T Axes : 82 20 77 degrees QTcB Int : 500 ms Normal sinus rhythm Biatrial enlargement Prolonged QT Abnormal ECG When compared with ECG of 23-Jan-2024 12:56, No significant change was found Confirmed by Adrian Ferreira ([id number]) on 03/13/2024 1:10:25 PM Referred By: Confirmed By: Adrian Ferreira
[2024-03-13] MEDS ORDERED: SODIUM CHLOR 7% 4 ML NEB NEB SCH (14:09)
[2024-03-13] MEDS ORDERED: ACETAMINOPHEN 325 MG TAB PO PRN (14:09)
[2024-03-13] MEDS ORDERED: DOXYCYCLINE HYCLATE 100 MG in DEXTROSE 5% MINI-B 100 ML IV SCH (14:09)
[2024-03-13] MEDS ORDERED: GLUCOSE 10 TAB/TUBE PO PRN (14:09)
[2024-03-13] MEDS ORDERED: GLUCAGON FOR INJ 1 MG VIAL SQ PRN (14:09)
[2024-03-13] MEDS ORDERED: GLUCOSE 40% GEL 15 GM TUBE PO PRN (14:09)
[2024-03-13] MEDS ORDERED: CARBOHYDRATES FOR HYPOGLYCEMIA PO PRN (14:09)
[2024-03-13] MEDS ORDERED: POLYETHYLENE (MIRALAX) 17 GM PACK PO PRN (14:09)
[2024-03-13] MEDS ORDERED: DEXTROSE 50% 50 ML SYRINGE IV PRN (14:09)
[2024-03-13] MEDS ORDERED: LEVALBUTEROL HCL 0.63 MG/3 ML NEB NEB PRN (14:09)
[2024-03-13] MEDS: ALBUT/IPRATROP 3MG/0.5MG NEB 3 ML VIAL NEB SCH (14:55)
[2024-03-13] MEDS ORDERED: ALBUT/IPRATROP 3MG/0.5MG NEB 3 ML VIAL NEB SCH (15:00)
[2024-03-13] MEDS: LACTATED RINGER'S 1,000 ML IV SCH (15:38)
[2024-03-13] MEDS: INSULIN ASPART PER UNIT CHARGE SC SCH (15:50)
[2024-03-13] MEDS: PANTOprazole 40 MG TAB PO SCH (16:11)
[2024-03-13] MEDS: amLODIPine BESYLATE 5 MG TAB PO SCH (16:11)
[2024-03-13] MEDS: carvediloL 25 MG TAB PO SCH (17:07)
[2024-03-13] MEDS: FERROUS SULFATE 325 MG TAB PO SCH (19:48)
[2024-03-13] MEDS: CYCLOBENZAPRINE HCL 10 MG TAB PO PRN (19:48)
[2024-03-13] MEDS: guaiFENesin 600 MG TABCR PO SCH (19:48)
[2024-03-13] MEDS: FORMOTEROL 20 MCG/2 ML VIAL INH SCH (19:54)
[2024-03-13] MEDS: SODIUM CHLOR 7% 4 ML NEB NEB SCH (19:54)
[2024-03-13] MEDS: BUDESONIDE 0.25 MG/2 ML VIAL (PULMICORT) NEB SCH (20:08)
[2024-03-13] MEDS: HEPARIN SOD 5,000 UNIT/0.5 ML VIAL SQ SCH (20:30)
[2024-03-13] MEDS: LANTUS PER UNIT CHARGE SQ SCH (20:30)
[2024-03-13] MEDS ORDERED: guaiFENesin 600 MG TABCR PO SCH (21:00)
[2024-03-13] MEDS ORDERED: methylPREDNISolone 1000 MG/16 ML IV SCH (21:00)
[2024-03-14] MEDS: LEVOTHYROXINE SODIUM 200 MCG TABLET PO SCH (05:44)
[2024-03-14 07:25] LABS: BUN Creatinine Ratio 27.4 (10-20); Calcium 8.4 mg/dl (8.6-10.3); Creatinine Clr Calc Pharmacy 48.3 ml/min; Est GFR (African American) 55.8 ml/min; Est GFR (Non-African American) 48.2 ml/min; Magnesium 1.8 mg/dl (1.7-2.4); Potassium 3.8 mmol/L (3.5-5.1)
[2024-03-14 07:38] LABS: Basophils # (auto) 0.02 K/uL (0.00-0.20); Basophils % (auto) 0.1 %; Hematocrit (blood only) 38.3 % (37.0-47.0); Hemoglobin 12.7 g/dl (12.0-16.0); Immature Granulocytes % (auto) 0.7 %; Lymphocytes # (auto) 1.35 K/uL (1.20-3.40); Lymphocytes % (auto) 9.6 %; Mean Corpuscular Hemoglobin 27.2 pg (25.0-34.0); Mean Corpuscular Hgb Conc 33.2 g/dL (32.0-36.0); Mean Platelet Volume 9.4 fL (9.4-12.4); Monocytes # (auto) 0.31 K/uL (0.11-0.59); Monocytes % (auto) 2.2 %; Neutrophils # (auto) 12.34 K/uL (1.40-6.50); Neutrophils % (auto) 87.4 %; Platelet Count 374 K/uL (130-400); RDW Coefficient of Variation 15.2 % (11.5-14.5); RDW Standard Deviation 44.7 fL (36.4-46.3); Red Blood Count 4.67 M/uL (4.20-5.40); White Blood Count 14.12 K/ul (4.8-10.8)
--- NOTE | 2024-03-14 08:06 | Pulmonology Progress Note ---
Date of Service March 14, 2024 Assessment & Plan (1) Acute exacerbation of chronic obstructive airways disease: (2) Hypoxia: (3) Tracheostomy in place: (4) Wheezing: (5) History of thyroid cancer: (6) Acute respiratory failure with hypoxia: Plan Chest x-ray 03/13/2024 personally reviewed: Portable film, good inspiratory effort, bilateral costophrenic and cardiophrenic angles are clean, no clear lung infiltrate appreciated -- Acute hypoxic respiratory failure Likely secondary to COPD exacerbation Procalcitonin negative Respiratory bio fire Negative on 03/13/2024 Continue with bronchodilators Continue with steroids -- COPD Plan as above --Pulmonary nodules Bilateral upper lobes Continue to monitor given the history of laryngeal CA Follows up with [facility] pulmonary as an outpatient --History of laryngeal CA S/p total laryngectomy 2006 Plan: Continue with Solu-Medrol while she is in the hospital, on discharge would recommend tapering prednisone off over the next 7 days Continue with nebulized Brovana/Perforomist along with budesonide nebulized. Add revefenacin nebulized to the regimen Would also recommend 7% hypertonic saline nebulized twice a day along with Mucinex Complete the course of doxycycline for 5 days Outpatient follow-up with [facility] pulmonology Was discussed with Dr. Capps Please note the above document was generated using voice recognition software. It may contain grammatical, syntax or spelling errors.Any formal questions or concerns about the content, text or information contained within the body of this dictation should be directly addressed to the provider for clarification. Admission and Anticipated Discharge Date Admission Date: March 13, 2024 Subjective Patient seen and examined at bedside. No acute distress, notable symptoms overnight She was saturating 92% on room air at the time of examination She stated she is feeling much better compared to when she came to the hospital She is able to bring up the phlegm with the nebulizer treatment that she is getting Denies any hemoptysis Fair appetite, no nausea or vomiting Was asking if she could go home today Review of Systems 2 Review of Systems: All systems reviewed & are unremarkable except as noted in Subjective Physical Exam 2 Physical Exam: Constitutional: No acute distress HEENT: EOMI, PERRLA, tracheostomy opening in place Respiratory system: Decreased air entry bilaterally, no rhonchi, no crackles, minimal expiratory wheeze bilaterally, significant improvement compared to yesterday CVS: S1-S2 positive, no murmurs or gallops Abdomen: Soft, nontender, nondistended, positive bowel sounds x4 Extremities: +2 pulses bilaterally radialis/ dorsalis pedis, no cyanosis, no edema Neuro: Awake alert oriented x3 Psych: Normal mood and affect G/U: No Madsen Skin: no rashes, warm and dry Lymphatic: no cervical or axillary lymphadenopathy Results & Data Results & Data Vital Signs (Past 12 Hours) Vital Signs Temp Pulse Pulse Resp BP Pulse Ox O2 Del Method 03/14/24 07:23 36.8 C 78 16 158/87 H 93 Trach Collar 03/14/24 07:11 63 20 96 Trach Collar 03/14/24 05:50 18 93 Trach Collar 03/14/24 02:55 36.7 C 73 18 165/89 H 94 Trach Collar 03/13/24 23:01 36.9 C 69 18 145/79 H 93 Trach Collar 03/13/24 21:59 75 03/13/24 20:25 Trach Collar O2 Flow Rate FiO2 03/14/24 07:23 2 03/14/24 07:11 10 35 03/14/24 05:50 2 03/14/24 02:55 11 03/13/24 23:01 11 03/13/24 21:59 03/13/24 20:25 Laboratory Results 03/14/24 06:49 03/14/24 06:49 PG Care Time/CCT Total # of Minutes Spent Total Time Spent with Patient: Total time spent is greater than 50% in coordination of care (as documented) at patient's floor/unit and/or counseling patient: Coding Level of Care Code 79777 SUB INP/OBS CARE 2/35MIN Diagnoses Acute exacerbation of chronic obstructive airways disease J44.1 Hypoxia R09.[address] Z93.0 Wheezing R06.2 History of thyroid cancer Z85.850 Acute respiratory failure with hypoxia J96.01
[2024-03-14] MEDS: EZETIMIBE 10 MG TAB PO SCH (08:09)
[2024-03-14] MEDS: CYANOCOBALAMIN (B-12) 500 MCG TABLET PO SCH (08:09)
--- NOTE | 2024-03-14 11:32 | Discharge Summary ---
Date of Service March 14, 2024 Admission HPI Per Admitting Provider This is a 68 y/o female with history of thyroid/throat cancer s/p laryngectomy with tracheostomy, pancreatic cancer s/p Whipple procedure, type 2 diabetes, COPD, DVT (post-surgical), hypertension, hyperlipidemia and other medical problems listed below who presents to the ED today with worsening cough and shortness of breath for two days. Pt reports that she was in her usual state of health until the last few days. On Wednesday, she irrigated and was able to expectorate a large amount of mucus with bloody streaks. However, for the last two days, she had not be able to get any mucus up although she feels like she needs to. She notes frequent dry cough and feeling short of breath with chest tightness and wheezing. She denies fevers, chills, N/V. No recent sick contacts. Does not recall any recent episode of aspiration. At baseline, she does not require oxygen. However, she has been on 10L via trach collar since being in the ED. Her sats were initially in the upper 90s. Currently, she is having increased difficulty breathing with episode of coughing and sats dropped into the upper 80s/low 90s. She had some transient relief with initial one hour neb given in the ED but feels like this relief is wearing off. Of note, pt was most recently admitted to this facility 01/22-01/26 with hypoxic respiratory failure related to COVID-19. She was treated with remdesivir, steroids, and azithromycin with improvement. Admission Exam Per Admitting Provider General Appearance:Moderately built and nourished, mild respiratory distress Head: normocephalic, Atraumatic Eyes: normal inspection, EOMI Neck: supple, Trachea midline, + trach Respiratory/Chest: Decreased coarse breath sounds, b/l rhonchi, scattered wheezing, minimal accessory muscle use Cardiovascular: S1, S2, No murmur Abdomen/GI:Soft, Non tender, Bowel sounds present Extremities/Musculoskeletal:normal inspection, no edema Neurologic/Psych:AAOX3, grossly no focal neurological deficits Skin: normal color, warm Principal Diagnosis Acute hypoxic respiratory failure likely secondary to COPD exacerbation Discharge Exam GENERAL: Alert and oriented x3. NAD, on RA. HEENT: No pallor, no icterus. Pupils equal, round and reactive to light. Oral mucosa moist. Trach opening in place. NECK: No JVD, no neck masses. HEART: S1 and S2 heard. Regular rate and rhythm. No murmur, no gallop. RESPIRATORY SYSTEM: Normal AP diameter. No accessory muscle use. occ b/l wheez ing, no crackles. decreased air entry b/l. ABDOMEN: Soft, bowel sounds present, nontender, no distention. CENTRAL NERVOUS SYSTEM: No facial droop. Speech is clear. Obeys simple commands. Moves extremities. EXTREMITIES: No edema, no erythema seen. Discharge Data Allergies Allergy/AdvReac Type Severity Reaction Status Date / Time zolpidem [From Ambien] Allergy Severe pysch Verified 03/13/24 10:36 complications, dizzy NSAIDS (Non-Steroidal Allergy Intermediate Ulcer & Verified 03/13/24 10:36 Anti-Inflamma anemia hydrochlorothiazide AdvReac Intermediate Acute Verified 03/13/24 10:36 kidney injury rosuvastatin [From Crestor] AdvReac Intermediate Elavated Verified 03/13/24 10:36 liver function test Consultations 03/13/24 10:04 ED Decision to Admit Stat 03/13/24 14:09 Consult Pulmonology Routine Hospital Course (1) Acute exacerbation of chronic obstructive airways disease: Per prior attending with addendum: This is a 68 y/o female with history of thyroid/throat cancer s/p laryngectomy with tracheostomy, pancreatic cancer s/p Whipple procedure, type 2 diabetes, COPD, DVT (post-surgical), hypertension, hyperlipidemia and other medical problems listed below who presents to the ED today with worsening cough and shortness of breath for two days. BioFire in the ED was negative. Chest x-ray personally reviewed - no consolidation noted. Initial labs reveal leukocytosis. Pt is currently on 10L oxygen via trach collar with sats in the upper 80s to low 90s. Clinical picture seems most consistent with mucus plugging. Respiratory therapy called and coming to evaluate patient due to dropping sats in the ED. - Admit to PCU - Continue O2 titrated to effect - Consult pulmonology for additional recommendations - Check procal, lactate - Solu-Medrol 40 mg IV BID - Doxycycline empirically - Percussion therapy, flutter valve - DuoNebs, hypertonic saline - Labs in the AM - CBC, BMP, Mg - Continue Mucinex BID - Aspiration precautions, NPO for now (2) Acute and chronic respiratory failure with hypoxia: See plan for #1 (3) Type 2 diabetes mellitus: Last A1c was 8.5 on 01/24/24 Basal insulin with sliding scale prn BSG ACHS Holding oral agents (4) Tracheostomy in place: chronic (5) Acute kidney injury superimposed on CKD: Baseline creatinine appears to be around 0.8, today's creatinine is 1.2 Gentle IVF Labs in the AM Plan Pt seen and reviewed with collaborating physician, Dr. Dunlap. Plan of care discussed and as outlined above. Code status: Full code DVT Prophylaxis: subQ heparin - will monitor closely due to recent hemoptysis Admit to PCU Addendum 03/14/2024: Patient was seen and examined at bedside as a follow-up of COPD exacerbation and acute hypoxemic respiratory failure. Patient has been weaned down to room air, and is feeling better. Patient reports her chest tightness has improved significantly. Patient reports she is back to her baseline strength and would like to go home. Patient denies any purulent discharge from tracheostomy site. Patient denies any febrile illness. Discussed with pulmonology, plan to discharge her on tapering dose of steroid, doxycycline course, revefenacin and budesonide nebulization along with Perforomist and hypertonic saline nebulization. Patient is being discharged with following instruction at the point of discharge: Follow-up with your primary care physician within a week time and likely you will need labs CBC/CMP/magnesium/phosphorus. You are admitted for acute hypoxic respiratory failure likely secondary to COPD exacerbation. You will be discharged on tapering dose of steroid for neck 7 days, antibiotic first to complete 5 days. Take your Perforomist nebulization twice a day scheduled for next 5 days and then you can use as needed. Follow-up with the pulmonology in 2 to 4 weeks time upon discharge. Take your medications as prescribed. Please make sure that you are able to get your medications today by calling your pharmacy before you leave the hospital so that your treatment continuity is not broken. Home Health Attestation I certify that this patient is under my care and that I, or a physicians access services assistant working with me, had a face to-face encounter that meets the [id number] encounter requirements with this patient. The encounter with the patient was in whole, or in part, for the following medical condition, which is the primary reason for home health care (list medical condition): I certify that, based on my findings, the following services are medically necessary home health services: My clinical findings support the need for the above services because: Further, I certify that my clinical findings support that this patient is homebound (i.e. absences from home require considerable and taxing effort and are for medical reasons or latter-day services or infrequently or of short duration when for other reasons) because: Certification for Home Health Services: Based on the above findings, I certify that this patient is confined to the home and needs intermittent retirement care, physical therapy and/or speech therapy or continues to need occupational therapy. The patient is under my care, and I have initiated the establishment of the plan of care. This patient will be followed by a physician who will periodically review the plan of care. Total Time Total Time Spent Total Time Spent (In Minutes): 50 Discharge Plan Discharge Items Patient Disposition: Home - Self-Care Reason For Visit: hypoxic resp failure Discharge Diagnosis: Acute hypoxic respiratory failure likely secondary to COPD exacerbation Activity: Resume your previous activity Non-emergency contact: Primary Care Provider Call non-emergency contact if: you have any medication questions and your symptoms worsen Follow-up/Referrals: Orlin Castro MD [Primary Care Provider] - Diet: Carb Consistent or DM2 Addtl Attending Provider Instructions: Follow-up with your primary care physician within a week time and likely you will need labs CBC/CMP/magnesium/phosphorus. You are admitted for acute hypoxic respiratory failure likely secondary to COPD exacerbation. You will be discharged on tapering dose of steroid for neck 7 days, antibiotic first to complete 5 days. Take your Perforomist nebulization twice a day scheduled for next 5 days and then you can use as needed. Follow-up with the pulmonology in 2 to 4 weeks time upon discharge. Take your medications as prescribed. Please make sure that you are able to get your medications today by calling your pharmacy before you leave the hospital so that your treatment continuity is not broken. Pending Studies at Discharge: No Stand-Alone Forms: [facility] [employer], Smoking Cessation Medications and DC Order Prescriptions: New budesonide 0.25 mg/2 mL Suspension For Nebulization 0.25 mg NEB BIDR 7 Days Qty: 60 0RF doxycycline hyclate 100 mg tablet 100 mg PO BID 4 Days Qty: 8 0RF prednisone 20 mg tablet 20 mg PO UD Qty: 11 0RF Rx Instructions: 40 mg daily x 4 days, then 20 mg daily x 3 days then stop. Yupelri 175 mcg/3 mL solution for nebulization 175 mcg inhalation DAILY Qty: 90 0RF Continued losartan [Cozaar] 100 mg tablet 100 mg PO QAM cyclobenzaprine 10 mg tablet 10 mg PO HS PRN (Reason: Muscle Spasm) ipratropium-albuterol 0.5 mg-3 mg(2.5 mg base)/3 mL Solution For Nebulization 0 ml INHALATION Q6 PRN (Reason: Shortness Of Breath Or Wheezing) Rx Instructions: Unable to verify med w/ pharmacy at this date/time. Original Directions: 3ml VIA neb q6h PRN formoterol fumarate [Perforomist] 20 mcg/2 mL solution for nebulization 20 mcg NEB BIDR PRN (Reason: Shortness Of Breath Or Wheezing) Rx Instructions: Unable to verify med w/ pharmacy at this date/time. Original Directions: 20mcg VIA neb twice daily PRN cyanocobalamin (vitamin B-12) [Vitamin B-12] 1,000 mcg Tablet 1,000 mcg PO DAILY Rx Instructions: Unable to verify OTC meds at this date/time. ezetimibe 10 mg tablet 10 mg PO QAM repaglinide 1 mg Tablet 0.5 mg PO UD Rx Instructions: W/ evening snack carvedilol 25 mg tablet 25 mg PO BID levothyroxine 200 mcg tablet 200 mcg PO DAILYBB (DME) Dexcom G6 Sensor Device MISCELLANEOUS amlodipine 10 mg tablet 10 mg PO QAM ferrous sulfate 325 mg (65 mg iron) Tablet 325 mg PO TID Rx Instructions: Unable to verify OTC meds at this date/time. metformin 500 mg tablet extended release 24 hr 500 mg PO BID repaglinide 2 mg tablet 2 mg PO BIDM pantoprazole 40 mg tablet,delayed release (DR/EC) 40 mg PO DAILY guaifenesin [Mucinex] 600 mg Tablet Extended Release 12hr 1,200 mg PO BID Qty: 20 0RF Changed sodium chloride 7 % Solution For Nebulization See Rx Instructions .ROUTE .COMPLEX Qty: 120 0RF Rx Instructions: 7% NaCL 4 ml solution x neb x BID Discharge Orders: Discharge Order (Routine); Ordered 03/14/24 Ordered By: Xenia Capps Admission Data Admit Date/Time: 03/13/24 10:43 Attending Provider: Xenia Capps Admit Provider: Tye Dunlap Primary Care Provider: Orlin Castro Other Providers: Tye Dunlap; Cordell Stovall
[2024-03-14 11:48] VITALS: BP 161/84; TEMP 98.1
[2024-03-14 15:22] VITALS: PULSE 68; RESP 20; O2SAT 91
== END 2024-03-14 17:55 | disposition home or self-care (01) | DRG 190 ==
LOC: ED 08:00 → SUATTDRO 10:43 → 2S 10:43

== ENCOUNTER 2024-07-16 07:56 | Inpatient (IN) ==
--- OUTSIDE RECORDS SUMMARY | 2024-07-16 08:00 | External Medical Summary | Summary of Care ---
Author Name Unknown Organization [facility] Address [address] [place] [address] Phone [phone] Care Team Providers Care Research Consultant Name Role Phone Orlin Castro MD Primary Care Provider + Reason for Referral * Precert (Within 10 days (routine)) - Authorized Specialty Diagnoses / Procedures Referred By Contjohn t Referred To Contact Radiology Diagnoses Pulmonary nodules Procedures CT CHEST WO CONTRAST Perfecto Contreras MD [address] [place] [address] Phone: tel: fax: Referral ID Status Reason Start Date Expiration Date V isits Requested Visits Authorized [id number] Authorized 01/10/2025 999 999 Reason for Visit * Reason Comments Follow Up Encounter Details Date Type Department Care Team (Late st Contact Info) Description 07/13/2024 8:00 AM EST Office Visit Pulmonary Medicine, [address] [place] [address] Perfecto Contreras MD [address] [place] [id number] Pulmonary nodules* Allergies Active Allergy Reactions Criticality Noted Date Comments Zolpidem Tartrate Psych complications 6 Rosuvastatin 04/05/2020 Elevated lft Hydrochlorothiazide 12/29/2019 brenda Nsaids Other (Please comment) 04/14/2016 Gastric ulcer with anemia documented as of this encounter (statuses as of 07/13/2024) Medications ONETOUCH DELICA LANCETS FINE MISC Use to test blood sugar 4 times daily dx e11.9 400 Each 3 03/09/20 19 Active Misc. Devices MISC Tracheostomy Care Kit #4601 1 Each 10/02/19 20 Active Vitamin B-12 1000 MCG Oral Tablet Take 1 Tab by mouth daily. 90 Tab 3 03/07/20 21 Active OneTouch Verio Flex System w/Device Kit Use as directed. To test blood sugars up to 4 times a day Dx E11.22 1 Kit 04/03/20 21 Active Misc. Devices Laryngectomy tube, size 10LGT 3 Each 07/29/19 22 Active Misc. Devices Velcro Trach Ties for Laryngectomy Tube 15 Each 11 07/29/19 22 Active Ipratropium-Albut angel 0.5-2.5 (3) MG/3ML Inhalation Solution (Duoneb)Indicatio ns:COPD, group B, by GOLD 2017 classification (HCC) Inhale via nebulizer 3 mL every 6 hours as needed for Wheezing. 360 mL 1 12/31/19 22 Active Formoterol Fumarate 20 MCG/2ML Inhalation Nebulization Solution 10/20/19 23 Active Misc. Devices Electrolarynx Medically necessary 1 Each 03/15/20 23 Active Potassium Chloride ER 10 MEQ Oral Capsule Extended Release Take 20 Milliequivalent by mouth in the morning. 06/20/20 23 Active Ferrous Sulfate 325 (65 Fe) MG Oral Tablet (Feosol) TAKE ONE TABLET THREE TIMES DAILY 270 Tablet 1 07/08/19 24 Active Carvedilol 25 MG Oral Tablet (Coreg)Indication s:HTN, goal below 140/90 TAKE ONE TABLET BY MOUTH 2 TIMES A DAY WITH MORNING AND EVENING MEALS 180 Tablet 3 4 3:48 PM EST 09/07/19 24 2024 Active amLODIPine Besylate 10 MG Oral Tablet (Norvasc)Indicati ons:Essential hypertension with goal blood pressure less than 140/90 TAKE ONE TABLET BY MOUTH EVERY DAY. 90 Tablet 3 4 9:08 AM EST 09/29/19 24 2024 Active Additional Information Patient taking differently: Daily(AM), Reported on 07/13/2024 metFORMIN HCl ER 500 MG Oral Tablet Extended Release 24 Hour (Glucophage XR)Indications:Ty pe 2 diabetes mellitus with hemoglobin A1c goal of less than 7.0% (HCC) Take 1 Tablet by mouth two times a day. 180 Tablet 3 4 10:34 AM EST 11/17/19 24 Active Repaglinide 2 MG Oral Tablet (Prandin)Indicati ons:Type 2 diabetes mellitus with hemoglobin A1c goal of less than 7.0% (HCC) Take 1 tablet by mouth in the morning with breakfast and 1 tablet with supper. 180 Tablet 3 4 3:31 PM EST 11/17/19 24 Active Cyclobenzaprine HCl 10 MG Oral Tablet (Flexeril)Indicat ions:Spasm of muscle TAKE ONE TABLET BY MOUTH AT BEDTIME NEEDED FOR MUSCLE SPASMS. 90 Tablet 3 4 10:08 AM EST 11/29/19 24 Active Ezetimibe 10 MG Oral Tablet (Zetia)Indication s:Mixed hyperlipidemia TAKE ONE TABLET BY MOUTH EVERY DAY IN THE MORNING 90 Tablet 3 4 3:58 PM EST 11/26/19 24 2024 Active Repaglinide 1 MG Oral Tablet (Prandin)Indicati ons:Type 2 diabetes mellitus with hemoglobin A1c goal of less than 7.0% (HCC) TAKE ONE-HALF TABLET BY MOUTH EVERY DAY WITH EVENING SNACK 45 Tablet 3 4 6:50 AM EST 12/31/19 Active Spiriva Respimat 2.5 MCG/ACT Inhalation Aerosol Solution (Tiotropium [place] Monohydrate) Inhale 2 Puffs by mouth in the morning. 4 g 3 4 6:32 PM EDT 04/04/20 Active OneTouch Verio In Vitro Strip (Glucose Blood)Indications :Type 2 diabetes mellitus with hemoglobin A1c goal of less than 7.0% (HCC) Use to test blood glucose 4 times daily. 400 Strip 3 4 6:20 PM EDT 04/20/20 24 Active Levothyroxine Sodium 200 MCG Oral Tablet (Levoxyl)Indicati ons:Postsurgical hypothyroidism TAKE 1 TABLET BY MOUTH DAILY AT LEAST 30 MINUTES PRIOR TO FIRST MEAL OF THE DAY OR OTHER MEDICATIONS 90 Tablet 1 4 2:27 PM EST 06/02/20 24 Active Pantoprazole Sodium 40 MG Oral Tablet Delayed Release (Protonix) TAKE ONE TABLET BY MOUTH EVERY DAY 90 Tablet 3 4 6:01 PM EST 06/05/20 24 2024 Active Losartan Potassium 100 MG Oral Tablet (Cozaar) TAKE ONE TABLET BY MOUTH EVERY DAY 180 Tablet 3 5 5:00 PM EST 07/07/19 25 2025 Active Doxycycline Hyclate 100 MG Oral Capsule Take 1 Capsule by mouth in the morning and 1 Capsule before bedtime. Do all this for 10 days. until gone.. 20 Capsule 07/13/19 25 2024 Active Sulfamethoxazole- Trimethoprim 800-160 MG Oral Tablet (Bactrim DS) Take 1 Tablet by mouth in the morning and 1 Tablet before bedtime. Do all this for 10 days. until gone.. Do not start before August 05, 2024. 20 Tablet 08/05/19 25 2024 Active Doxycycline Hyclate 100 MG Oral Capsule Take 1 Capsule by mouth in the morning and 1 Capsule before bedtime. until gone.. 20 Capsule 05/16/20 24 2024 Disconti nued(Med ication List Clean Up) Doxycycline Hyclate 100 MG Oral Capsule Take 1 Capsule by mouth in the morning and 1 Capsule before bedtime. until gone.. 20 Capsule 06/06/20 24 2024 Disconti nued(Med ication List Clean Up) documented as of this encounter (statuses as of 07/13/2024) Active Problems Problem Noted Date Diagnosed Date [...] as of this encounter (statuses as of 07/13/2024) Resolved Problems Problem Noted Date Diagnosed Date Resolved Date Chronic obstructive pulmonary disease 09/30/2023 01/28/2024 Overview (01/28/2024): duplicate Thyroid cancer 03/15/2023 09/27/2023 Type 2 diabetes mellitus wit h stage 3a chronic kidney disease, without long-term current use of insulin 08/21/2021 09/17/2021 Chronic obstructive pulmonary disease 07/31/2019 2019 Overview: Per COPD GOLD Classification Type 2 diabetes mellitus wit h stage 3 chronic kidney disease, without long-term current use of insulin 03/10/2019 03/04/2022 History of MRSA infection 12/29/2018 Overview (12/29/2018): THROAT Hypertensive kidney disease with chronic kidney disease stage III 11/10/2018 03/04/2022 History of colon polyps 11/10/201802/02 Overview (11/10/2018): Tubular adenoma Family history of FAP (famil [...] determined 07/19/2012 09/05/2013 Other atopic dermatitis 07/19/201202/02 Overview (04/27/2017): ICD-10 update of inactive term Abnormal results [...] .9, isolated (see actual BMI) 12/16/2009 07/01/2012 Overview (12/16/2009): Per Obesity Protocol, #19 Bacterial pneumonia 11/01/2009 07/01/20 12 Encounter for routine gyneco logical examination 11/01/2009 05/19/2016 Overview (04/05/2017): ICD-10 update of inactive term Spasm of muscle 11/01/2009 07/01/2012 HTN, goal below 130/80 03/10 Other specified acquired hypothyroidism 09/05/2013 Overview (11/01/2009): s/p goiter removal History of thyroid cancer Overview (11/01/2009): removed [facility] Lumbago 09/05/2013 Overview (11/01/2009): chronic since childhood Family history of colon cancer 02/14/2019 Overview (11/01/2009): [place]. FAP---[facility], [place] [facility] Dermatitis 07/01/2012 documented as of this encounter (statuses as of 07/13/2024) Immunizations Name Administration Dates Next Due COVID-19 mRNA, LNP-s, No Pre serve, 2-Dose Series (Moderna) 02/15/2021,01/09/2021,12/12/2020 COVID-19, MRNA-LNP, 24-25, P F, 50 MCG/0.5ML, IM, 12 YRS & ABOVE (Moderna - Spikevax) 04/07/2023 Covid-19, Mrna, Lnp-s, Pf, B ivalent, 50 Mcg, IM, 12 yrs and above (Moderna) 07/07/2022 Hepatitis B, 20+ yrs 12/20/2014,07/27/2014,06/22 Pneumococcal Conjugate Vacc, 13 Valent (Prevnar) 04/26/2015,04/04/2015 Pneumococcal Polysaccharide PPV23 (Pneumovax) 03/04/2022,12/03/2013 RSV Vac., Recomb, Adjuvant, PF,0.5 Ml (Arexvy) 04/07/2023 Seasonal Influenza Vac., MDV , IM, 0.5 mL (Fluzone) 03/16/2014,03/24/2013,03/14/2012,04/07,06/05/2010 Seasonal Influenza Virus Vac cine, Unspecified Formulation 03/10/2019,04/21/2018,04/14/2017,03/18,06/05/2010 Seasonal Influenza, High Dos e, Trivalent, PF, IM (Fluzone HD) 04/27/2024 Seasonal Influenza, PF, 6 M & above, IM , (FluLaval or Fluzone) 03/21/2021,04/22/2020,03/10/2019,04/21,04/14/2017 Seasonal Influenza, Quadriva lent Hd (Fluzone Hd) 03/18/2023,03/04/2022 Seasonal Influenza, Quadriva lent, No Preserve, IM 03/18/2016,04/12/2015 TDAP (age 10 and older)(Boostrix) 07/07/2022 TDAP, [...] money to get more. Never true 06/22/2023 Childcare Answer Date Recorded Do you feel overwhelmed with taking care of a child, family member or friend? No 06/22/2023 Does your family need help f inding childcare? (Household - for ages 0-17 years) Not on file 06/22/2023 Clothing Answer Date Recorded Have you been unable to get clothing when it was really needed? No 06/22/2023 Is your family able to get c lothes or diapers when needed? (Household - for ages 0-17 years) Not on file 06/22/2023 Personal Safety Answer Date Recorded Do you feel unsafe or have concerns for your saf ety? No 06/22/2023 Do you have concerns for you r family's safety? (Household - for ages 0-17 years) Not on file 06/22/2023 Utilities Answer Date Recorded Do you have trouble paying y our heating, water, or electric bill? No 06/22/2023 Is your family able to pay t he heat, water, or electric bill? (Household - for ages 0-17 years) Not on file 06/22/2023 Does your family have access to good internet? (Household - for ages 0-17 years) Not on file 06/22/2023 Employment Status Answer Date Recorded Are you unemployed or without regular income? No 06/22/2023 Does the household have a [facility] source [facility] income? (Household - for ages 0-17 years) Not on file 06/22/2023 Social Connections Answer Date Recorded How often do you feel lonely or isolated from th ose around you? Never 06/22/2023 Financial Resource Strain Answer Date R ecorded Do you have any trouble payi ng for your medications, or do you think you might in the future? No 06/22/2023 Does your family have troubl e paying for medicine? (Household - for ages 0-17 years) Not on file 06/22/2023 Transportation Needs Answer Date Record ed READ ONLY Do you have troubl e getting a ride to medical visits or work? Never True 06/22/2023 Does your family have a hard time getting a ride to doctors visits? (Household - for ages 0-17 years) Not on file 06/22/2023 Has lack of transportation k ept you from medical appointments, meetings, work, or from getting things needed for daily living? Check all that apply. (Adult - for ages 18 years and over) Not on file 06/22/2023 Do you (or your family) have trouble finding or paying for a ride (transportation)? (Household - for ages 0-17 years) Not on file 06/22/2023 Housing Stability Answer Date Recorded Do you currently live in a s helter or have no steady place to sleep at night? No 06/22/2023 READ ONLY Do you think you a re at risk of becoming homeless? No 06/22/2023 Does your family worry about paying for your home or becoming homeless? (Household - for ages 0-17 years) Not on file 1 08/23/2022 Are you homeless or worried that you might be in the future? (Adult - for ages 18 years and over) Not on file Are you (or your family) lynette eless or worried that you might be in the future? (Household - for ages 0-17 years) Not on file Food Insecurity Answer Date Recorded Do you need food for this week? No 06/22/2023 Are you able to get enough f ood for your family? (Household - for ages 0-17 years) Not on file 06/22/2023 Does your family need food t his week? (Household - for ages 0-17 years) Not on file 06/22/2023 Do you always have enough fo od for your family? 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 Not on file Not on file Not on file documented as of this encounter Last Filed Vital Signs Vital Sign Reading Time Taken Comments Blood Pressure 128/88 07/13/2024 8:03 AM EST Pulse 81 07/13/2024 8:03 AM EST Temperature 36.7 C (98.1 F) 07/13/2024 8:03 AM ES T Respiratory Rate 20 07/13/2024 8:03 AM EST Oxygen Saturation 96% 07/13/2024 8:04 AM EST ra, amb Inhaled Oxygen Concentration - - Weight 86.1 kg (189 lb 12 oz) 07/13/2024 8:03 AM EST Height 162.6 cm (5' 4") 07/13/2024 8:03 AM EST Body Mass Index 32.57 07/13/2024 8:03 AM EST documented in this encounter Functional Status * Are you deaf or do you have serious difficulty hearing? Answer Date of Assessment Author No 11/29/2020 9:57 PM EDT Laura Sandoval, [employer] * Are you blind or do you have serious difficulty seeing, even when wearing glasses? Answer Date of Assessment Author No 11/29/2020 9:57 PM EDT Laura Sandoval, [employer] * Do you have serious difficulty walking or climbing stairs? (5 years old or older) Answer Date of Assessment Author No 11/29/2020 9:57 PM EDT Laura Sandoval, [employer] * Do you have difficulty dressing or bathing? (5 years old or older) Answer Date of Assessment Author No 11/29/2020 9:57 PM EDT Laura Sandoval, [employer] * Because of a physical, mental, or emotional condition, do you have difficulty doing errands alone such as visiting a doctors office or shopping? (15 years old or older) Answer Date of Assessment Author No 11/29/2020 9:57 PM EDT Laura Sandoval, [employer] documented as of this encounter Mental Status * Because of a physical, mental, or emotional condition, do you have serious difficulty concentrating, remembering, or making decisions? (5 years old or older) Answer Entry Date Author No 11/29/2020 9:57 PM EDT Laura Sandoval, [employer] documented in this encounter Progress Notes * Perfecto Contreras MD - 07/13/2024 7:58 AM EST Images from the original note were not included. 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 (Isolates are resistant to clindamycin and erythromycin). 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 MAC isolates reported from bronchoscopy 05/03/2024. Plan: C/w BD Rx Use of saline moist guaze recommended to prevent upper airway dryness FOB results discussed with patient. Denies weight loss. No cavitation noted on CT Chest. Chronic purulent bronchitis since laryngectomy status. Based on Shared Decision making, plan as follows: MAC: Plan to c/w monitoring and radiologic surveillance. Bacterial Isolates: Rx with Doxycycline x 10 days followed by bactrim x 10 days next month Fungal Isolates: Monitoring and Radiologic Surveillance Repeat CT Chest x 6 months Plan for periodic future Bronchoscopic evaluation based on Sx status Saline irrigation soln ([facility]) Not using chest VEST percussion Rx Clinic f/u in 2 month Follow Up: Return in about 2 months (around 09/10/2024) for Clinic Visit. | For: Clinic Visit | Check-out note: C/w BD Rx Use of saline moist guaze recommended to prevent upper airway dryness FOB results discussed with patient. Denies weight loss. No cavitation noted on CT Chest. Chronic purulent bronchitis since laryngectomy status. Based on Shared Decision making, plan as follows: MAC: Plan to c/w monitoring and radiologic surveillance. Bacterial Isolates: Rx with Doxycycline x 10 days followed by bactrim x 10 days next month Fungal Isolates: Monitoring and Radiologic Surveillance Repeat CT Chest x 6 Follow Up: Return in about 2 months (around 09/10/2024) for Clinic Visit. | For: Clinic Visit | Check-out note: months Plan for periodic future Bronchoscopic evaluation based on Sx status Saline irrigation soln ([facility]) Not using chest VEST percussion Rx Clinic f/u in 2 month I spent a total of 40-54 minutes (exact time 45 mins) on the date of service in preparation, delivery, and documentation of the care provided to Mallory Soto excluding any time spent in the performance of separately billed services or time spent by another provider/QHP. Perfecto Contreras MD Data review: Following reports, and data as outlined below was personally reviewed and interpreted by myself. Bronchoscopy culture results 05/03/2024: Staph aureus and Corynebacterium isolates which are sensitive to: Bactrim,Tetracycline , oxacillin. Strains or resistant to clindamycin and erythromycin. 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 MAC isolates reported from bronchoscopy 05/03/2024. CT CHEST WO CONTRAST: 11/30/2023 COMPARISON: CT chest 12/04/2022. FINDINGS LARGE AIRWAYS: Tracheostomy tube terminates above the checo. LUNGS: Scattered bilateral tree-in-bud type opacities are again noted and may reflect the sequela of chronic aspiration. A 9 millimeter ground-glass opacity in the left upper lobe appears similar. Unchanged scarring versus pleural based lymph node seen in the posterior aspect of the left upper lobe. IMPRESSION 1. Similar bilateral tree-in-bud airspace opacities which may reflect sequela of chronic aspiration. 2. Fissural/pleural based nodules are most consistent with intrapulmonary lymph nodes and appear unchanged. 3. No new or suspicious pulmonary nodule is seen. Subjective CC: Chief Complaint Patient presents with Follow Up HPI: Nursing Notes: Heather Ramirez LPN 07/13/24 0809 Addendum Pt is here to review bronch results. Interm History/Respiratory Symptoms Cough: frequent, clear phlegm Hemoptysis: no Sinus Symptoms: no Hospitalizations: no ED Trips: no Triggers: cold weather, humidity, pollen, scents/fragrances, smoke Nocturnal: occasional cough, sleeps with head elevated CPAP/BiPAP/O2: no DME Supplier: n/a Flu Vaccine: 2023 Pneumovax: 2021 Prevnar: 2014 COVID 19: x5 [facility] Cat Question 07/13/2024 8:07 AM EST - Filed by Heather Ramirez LPN When do you become breathless? (1) I get short of breath when hurrying on level ground How frequently do you cough? (5) - I cough all the time Do you have phlegm in your chest? (3) Is your chest tight? (0) - My chest does not feel tight at all How breathless do you become when walking up a hill or steps? (2) How limited are you doing activities at home? (0) - I am not limited doing any activities at home How confident are you leaving home with your lung condition? (0) - I am confident leaving my home despite my condition How soundly do you sleep? (2) How much energy do you have? (3) Total MMRC Score (range: 0 - 4) 1 Total CAT Score (range: 0 - 40) 15 Objective Filed Vitals: 07/13/24 0803 07/13/24 0804 BP: 128/88 Pulse: 81 Resp: 20 Temp: 36.7 C (98.1 F) TempSrc: Tympanic SpO2: 97% 96% Weight: 86.1 kg (189 lb 12 oz) Height: 1.626 m (5' 4") Exam: Const: [...] No edema of the lower limbs bilaterally. Skin: Skin is warm and dry. Neuro: Coordination normal. No involuntary movement. Psych: Patient's attitude is cooperative. Mood is normal. Affect is normal. Tests reviewed with the patient: No imaging results in the last 6 months Available Radiologic data was reviewed by me in PACS. The images were shown to the patient and findings were discussed with the patient. HOME MEDICATIONS: Doxycycline Hyclate 100 MG Oral Capsule [START ON 08/05/2024] Sulfamethoxazole-Trimethoprim 800-160 MG Oral Tablet (Bactrim DS) Losartan Potassium 100 MG Oral Tablet (Cozaar) Pantoprazole Sodium 40 MG Oral Tablet Delayed Release (Protonix) Levothyroxine Sodium 200 MCG Oral Tablet (Levoxyl) [facility] Verio In Vitro Strip (Glucose Blood) Spiriva Respimat 2.5 MCG/ACT Inhalation Aerosol Solution (Tiotropium [place] Monohydrate) Repaglinide 1 MG Oral Tablet (Prandin) Cyclobenzaprine HCl 10 MG Oral Tablet (Flexeril) Ezetimibe 10 MG Oral Tablet (Zetia) metFORMIN HCl ER 500 MG Oral Tablet Extended Release 24 Hour (Glucophage XR) Repaglinide 2 MG Oral Tablet (Prandin) amLODIPine Besylate 10 MG Oral Tablet (Norvasc) Carvedilol 25 MG Oral Tablet (Coreg) Ferrous Sulfate 325 (65 Fe) MG Oral Tablet (Feosol) Potassium Chloride ER 10 MEQ Oral Capsule Extended Release Misc. Devices Formoterol Fumarate 20 MCG/2ML Inhalation Nebulization Solution Ipratropium-Albuterol 0.5-2.5 (3) MG/3ML Inhalation Solution (Duoneb) Misc. Devices Misc. Devices FieldAwareToPfenex Verio Flex System w/Device Kit Vitamin B-12 [...] Family history of colon cancer [place]. [facility] Family history of familial adenomatous polyposis 03/10/2019 [...] Dr Allen & Dr ESCOBEDO [place] [facility] [place]H, UPPER GI ENDOSCOPIC PROCS 08/18/2010 ANESTHESIA FOR UPPER GI ENDOSCOPIC PROCEDURES (ERCP OR UPPER GI) performed by ALICIA MATHEWS at [facility] [place] BREAST BIOPSY Left Benign BREAST BIOPSY Left Benign BREAST BIOPSY Left Benign COLONOSCOPY, DIAGNOSTIC (RECTUM) 09/10/2011 COLONOSCOPY FLEXIBLE PROXIMAL DIAGNOSTIC performed by ALICIA MATHEWS at [facility] COLONOSCOPY, DIAGNOSTIC (RECTUM) 01/13/2012 COLONOSCOPY FLEXIBLE PROXIMAL DIAGNOSTIC performed by Alicia Mathews DO at [facility] COLONOSCOPY, DIAGNOSTIC (RECTUM) 07/21/2012 COLONOSCOPY FLEXIBLE PROXIMAL DIAGNOSTIC performed by Alicia Mathews DO at [facility] COLONOSCOPY, DIAGNOSTIC (RECTUM) 01/13/2013 COLONOSCOPY FLEXIBLE PROXIMAL DIAGNOSTIC performed by Alicia Mathews DO at [facility] COLONOSCOPY, DIAGNOSTIC (RECTUM) 01/19/2014 COLONOSCOPY FLEXIBLE PROXIMAL DIAGNOSTIC performed by Alicia Mathews DO at [facility] COLONOSCOPY, DIAGNOSTIC (RECTUM) N/A 09/27/2014 COLONOSCOPY FLEXIBLE PROXIMAL DIAGNOSTIC performed by Alicia Mathews DO at [facility] [place] COLONOSCOPY, DIAGNOSTIC (RECTUM) N/A 03/15/2015 COLONOSCOPY FLEXIBLE PROXIMAL DIAGNOSTIC performed by Alicia Mathews DO at [facility] COLONOSCOPY, DIAGNOSTIC (RECTUM) N/A 06/13/2015 COLONOSCOPY FLEXIBLE PROXIMAL DIAGNOSTIC performed by Alicia Mathews DO at [facility] [place] COLONOSCOPY, DIAGNOSTIC (RECTUM) 04/08/2016 normal/inpt [facility] COLONOSCOPY, DIAGNOSTIC (RECTUM) 07/02/2017 COLONOSCOPY FLEXIBLE PROXIMAL DIAGNOSTIC performed by Alicia Mathews DO at [facility] COLONOSCOPY, DIAGNOSTIC (RECTUM) N/A 08/30/2018 COLONOSCOPY FLEXIBLE PROXIMAL DIAGNOSTIC performed by Alicia Mathews DO at [facility] COLONOSCOPY, DIAGNOSTIC (RECTUM) 12/03/2021 benign adenomatous polyps, repeat 1 yr / [facility] COLONOSCOPY, DIAGNOSTIC (RECTUM) 12/17/2022 adenomatous polyp, repeat 1 yr / [facility] COLONOSCOPY, DIAGNOSTIC (RECTUM) N/A 04/27/2024 patent ileal pouch-anal anstomosis/multiple polyps/biopsies show adenomatous polyps/recall 1 year/COLONOSCOPY FLEXIBLE PROXIMAL DIAGNOSTIC performed by Raymond Campbell MD at [facility] EGD, FLEXIBLE, DIAGNOSTIC 09/10/2011 UPPER GI ENDOSCOPY DIAGNOSTIC performed by ALICIA MATHEWS at [facility] EGD, FLEXIBLE, DIAGNOSTIC 07/21/2012 UPPER GI ENDOSCOPY DIAGNOSTIC performed by Alicia Mathews DO at [facility] EGD, FLEXIBLE, DIAGNOSTIC N/A 05/14/2016 ESOPHAGOGASTRODUODENOSCOPY (EGD), FLEXIBLE, TRANSORAL, DIAGNOSTIC performed by Alicia Mathews DO at [facility] EGD, FLEXIBLE, DIAGNOSTIC 04/08/2016 anastamotic ulcer/inpt [facility] EGD, FLEXIBLE, DIAGNOSTIC N/A 07/02/2017 ESOPHAGOGASTRODUODENOSCOPY (EGD), FLEXIBLE, TRANSORAL, DIAGNOSTIC performed by Alicia Mathews DO at [facility]OS[facility] EGD, FLEXIBLE, DIAGNOSTIC N/A 08/30/2018 ESOPHAGOGASTRODUODENOSCOPY (EGD), FLEXIBLE, TRANSORAL, DIAGNOSTIC performed by Alicia Mathews DO at [facility] EGD, FLEXIBLE, DIAGNOSTIC 12/03/2021 normal, repeat 1 yr / [facility] EGD, FLEXIBLE, DIAGNOSTIC 12/17/2022 normal, repeat 1 yr / [facility] EGD, FLEXIBLE, DIAGNOSTIC 04/27/2024 classic Whipple/recall 1 year/ESOPHAGOGASTRODUODENOSCOPY (EGD), FLEXIBLE, TRANSORAL, DIAGNOSTIC performed by Raymond Campbell MD at [facility] EGD, W/ENDOSCOPIC US 08/11/2012 UPPER GI ENDOSCOPY ENDOSCOPIC ULTRASOUND performed by Garcia Casey MD at [facility]OSCOPY [facility] EGD, W/ENDOSCOPIC US 11/04/2012 UPPER GI ENDOSCOPY ENDOSCOPIC ULTRASOUND performed by Garcia Casey MD at [facility]OSCOPY [facility] EGD, W/ENDOSCOPIC US N/A 05/08/2021 ESOPHAGOGASTRODUODENOSCOPY (EGD), FLEXIBLE, TRANSORAL, ENDOSCOPIC ULTRASOUND performed by Jane Gutierrez MD at ENDOSCOPY [facility] ERCP, DIAGNOSTIC, SPECIMEN COLLECTION 09/14/2012 ENDOSCOPIC RETROGRADE CHOLANGIOPANCREATOGRAPHY DIAGNOSTIC performed by Garcia Casey MD at ENDOSCOPY [facility] ERCP, DIAGNOSTIC, SPECIMEN COLLECTION 11/04/2012 ENDOSCOPIC RETROGRADE CHOLANGIOPANCREATOGRAPHY DIAGNOSTIC performed by Garcia Casey MD at ENDOS[facility] MAINE FLEX SIGMOID DIAGNOSITIC N/A 09/18/2019 SIGMOIDOSCOPY FLEXIBLE DIAGNOSTIC performed by Alicia Mathews DO at ENDOSCOPY [facility] MUSCLE/FASCIA DEBRIDEMENT, FIRST 20 CM2 N/A 11/29/2020 DEBRIDEMENT SKIN SUBCUTANEOUS TISSUE AND MUSCLE performed by Howard Montes De Oca DO at OR [facility] OTHER 2006 tracheostomy & laryngectomy REMOVAL OF COLON/ILEOSTOMY 1976 x3 REMOVAL OF THYROID GLAND 2006 Thyroidectomy REMOVE PANCREAS, PARTIAL (WHIPPLE) 06/17/2010 PANCREATECTOMY PROXIMAL WITH TOTAL DUODENECTOMY, Dr CIFUENTES REMOVE PANCREAS, PARTIAL (WHIPPLE) 12/02/2012 12/02/2012 PANCREATECTOMY PROXIMAL WITH SUBTOTAL DUODENECTOMY performed by Julio C Cifuentes MD at [facility] REPAIR INITIAL INCISIONAL OR VENTRAL HERNIA; REDUCIBLE 12/15/2021 done at [facility] by Dr Aayush Estrella REPAIR WINDPIPE OPENING, COMPLEX 06/02/2021 TRACHEOSTOMA REVISION WITH FLAP performed by Howard Montes De Oca DO at [facility] REPAIR WINDPIPE OPENING, SIMPLE N/A 08/07/2015 TRACHEOSTOMA REVISION SIMPLE performed by Howard Montes De Oca DO at [facility] REPAIR WINDPIPE OPENING, SIMPLE Bilateral 11/29/2020 TRACHEOSTOMA REVISION SIMPLE performed by Howard Montes De Oca DO at [facility] SIGMOIDOSCOPY, DIAGNOSTIC N/A 10/15/2020 SIGMOIDOSCOPY FLEXIBLE DIAGNOSTIC performed by Alicia Mathews DO at ENDOSCOPY [facility] SIGMOIDOSCOPY, DIAGNOSTIC N/A 04/29/2021 SIGMOIDOSCOPY FLEXIBLE DIAGNOSTIC performed by Monae Batista DO at ENDOSCOPY [facility] US GUIDED BREAST BIOPSY RIGHT Right Benign Social History Socioeconomic History Marital status: Single Occupational History Occupation: [employer] Employer: [employer] [id number] Tobacco Use Smoking status: Former Current packs/day: 0.00 Average packs/day: 1 pack/day for 30.0 years (30.0 ttl pk-yrs) Types: Cigarettes Start date: 07/05/1976 Quit date: 07/05/2006 Years since quittin.0 Smokeless tobacco: Never Vaping Use Vaping status: Never Used Substance and Sexual Activity Alcohol use: No Drug use: No Sexual activity: Never Social History Narrative 1 dog in her home. No mold. Social Needs Financial Resource Strain: Low Risk (06/22/2023) Financial Resource Strain Do you have any trouble paying for your medications, or do you think you might in the future? (Adult - for ages 18 years and over): No Food Insecurity: No Food Insecurity (06/22/2023) Food Insecurity Do you need food for this week? (Adult - for ages 18 years and over): No Transportation Needs: No Transportation Needs (06/22/2023) Transportation Needs Do you have trouble getting a ride to medical visits or work? (Adult - for ages 18 years and over):Never True Social Connections: Socially Integrated (06/22/2023) Social Connections How often do you feel lonely or isolated from those around you? (Adult - for ages 18 years and over): Never Housing Stability: Low Risk (06/22/2023) Housing Stability Do you currently live in a mcc or have no steady place to sleep at night? (Adult - for ages 18 years and over): No Do you think you are at risk of becoming homeless? (Adult - for ages 18 years and over): No Family History Problem Relation Name Age of [...] documented in this encounter Nursing Notes * Heather Ramirez LPN - 07/13/2024 7:59 AM EST Pt is here to review bronch results. Interm History/Respiratory Symptoms Cough: frequent, clear phlegm Hemoptysis: no Sinus Symptoms: no Hospitalizations: no ED Trips: no Triggers: cold weather, humidity, pollen, scents/fragrances, smoke Nocturnal: occasional cough, sleeps with head elevated CPAP/BiPAP/O2: no DME Supplier: n/a Flu Vaccine: 2023 Pneumovax: 2021 Prevnar: 2014 COVID 19: x5 Mmrc Cat Question 07/13/2024 8:07 AM EST - Filed by Heather Ramirez LPN When do you become breathless? (1) I get short of breath when hurrying on level ground How frequently do you cough? (5) - I cough all the time Do you have phlegm in your chest? (3) Is your chest tight? (0) - My chest does not feel tight at all How breathless do you become when walking up a hill or steps? (2) How limited are you doing activities at home? (0) - I am not limited doing any activities at home How confident are you leaving home with your lung condition? (0) - I am confident leaving my home despite my condition How soundly do you sleep? (2) How much energy do you have? (3) Total MMRC Score (range: 0 - 4) 1 Total CAT Score (range: 0 - 40) 15 documented in this encounter Plan of Treatment Upcoming Encounters Date Type Department Care Team (Late st Contact Info) Description 07/28/2024 10:40 AM EST Office Visit General Internal Medicine [facility] [address] [facility] [place] [address] Oriln Castro MD 200 [facility] [place] [address] 09/27/2024 8:45 AM EDT Office Visit Orthopaedics [facility] [address] [place] [phone] Javon Bunn DO [address] [place] [address] 10/03/2024 8:10 AM EDT Office Visit Pharmacy, [facility] 200 [facility] [place] [address] Pharmacist1, [facility] [address] [facility] [place] [address] 10/03/2024 8:40 AM EDT Office Visit Nephrology, [facility] [address] [facility] [place] [address] Galindo Jean MD 200 [facility] [place] [address] 01/10/2025 9:15 AM EDT Imaging Radiology [facility] 1st [facility] [address] [facility] [place] [address] 04/04/2025 9:40 AM EDT Office Visit Pulmonary Medicine, [facility] [address] [facility] [place] [address] Perfecto Contreras MD [address] [facility] [address] Scheduled Orders Name Type Priority Associated Diagnoses Orde r Schedule CT CHEST WO CONTRAST Medical Imaging Routine Pulmonary nodules Expected: 01/10/2025, Expires: 08/13/2025 Scheduled Procedures Name Priority Associated Diagnoses Date/Ti me COLONOSCOPY FLEXIBLE PROXIMA L DIAGNOSTIC Recall History of colonic polyps Family history of colonic polyps Health Maintenance Due Date Last Done Comments Cologuard 2001 Fecal Occult Blood Test 2001 *COPD SEVERITY VERIFIED BY PFT 08/02/2019 COVID-19 Vaccine ( season) 2024 04/07/2023, 07/07/2022, 02/15/2021, Additional history exists TSH 03/15/2024 03/15/2023, 05/05, 03/06/2022, Additional history exists Adult Wellness Visit 04/14/2024 04/14/2023 Albumin/Creatinine Ratio 05/05/202405/05/2 023, 05/14/2022, 05/01/2022, Additional history exists Depression Screening 06/22/2024 06/22/2023 GFR 07/15/2024 01/13/2024, 04/, 08/23/2023, Additional history exists Mammogram 09/13/2024 09/14/2023, 09/02, 09/11/2022, Additional history exists Diabetic Foot Exam 09/29/2024 09/30/2023, 0 08/07/2022, 08/21/2021, Additional history exists HbA1c 11/13/2024 05/16/2024, 12/04, 09/30/2023, Additional history exists CKD HGB USE SMARTSET 75100 01/12/202501/12, 01/13/2024, 08/03/2023, Additional history exists CKD PHOS USE SMARTSET 75980 01/12/202501/02, 08/23/2023, 08/03/2023, Additional history exists Colonoscopy 04/27/2025 04/27/2024, 04/05, 12/17/2022, Additional history exists Colorectal Cancer Screening 04/27/2025 O2 ASSESSMENT COMPLETED IN PAST YEAR FOR COPD 04/27/2025 04/27/2024 Diabetic Eye Exam 05/30/2025 05/30/2024, , 05/30/2024, Additional history exists Sigmoidoscopy 04/29/2026 04/29/2021, 10/15/2020 DXA Scan 05/12/2026 05/12/2022, 05/12/2022 Lipid Panel 10/12/2028 10/13/2023, 10/04, 03/06/2022, Additional history exists DTap/Tdap Vaccines (3 - Td or Tdap) 07/07/2032 07/07/2022, 09/29/2010 Hepatitis B Vaccine Completed 12/20/2014, 07/27/2014, 06/22/2014 Zoster Vaccines Completed 12/04/2019, 06/04, 05/20/2017 Pap Smear Discontinued 07/11/2020, 11/02, 09/05/2013, Additional history exists Alpha-1 Antitrypsin Completed 08/21/2021 Pneumococcal Vaccine: 50+ Years Completed 03/04/2022, 04/26/2015, 04/04/2015, Additional history exists Influenza Vaccine (FLU shot) Completed 04/27/2024, 03/18/2023, 03/04/2022, Additional history exists RETIRED - COLONOSCOPY-ANNUAL AGES 18-100 Discontinued 04/27/2024, 04/27/2024, 12/17/2022, Additional history exists HPV (Gardasil) Vaccine Aged Out No lo nger eligible based on patient's age to complete this topic MENINGOCOCCAL (MENACTRA/MENVEO) Aged Out No longer eligible based on patient's age to complete this topic documented as of this encounter Medical Devices Implanted Type Area Director Regulatory Affairs Device Identifier Shelf Expiration Date Model / Serial / Lot Stent Pancreatic Geenen 5fr - [id number] Implanted:Qty: 1 on 06/17/2010 at [place] [facility] [employer] 03/18/2013 [id number] / / [id number] Stent 10fr 7cm - [id number] Implanted:Qty: 1 on 06/17/2010 at [place] [facility] NAN : RADHA [place] 01/15/2013 [id number] / / [id number] Description:pancreas documented as of this encounter Visit Diagnoses Diagnosis Pulmonary nodules- Primary Other nonspecific abnormal finding of lung field documented in this encounter Advance Directives * [...] Power of Attor tanika? No Care Teams Research Consultant Relationship Specialty Start Date End Date Orlin Castro MD [address] [place] [id number] PCP - General Internal Medicine 04/27/19 documented as of this encounter
--- OUTSIDE RECORDS SUMMARY | 2024-07-16 08:01 | External Medical Summary | Summary of Care ---
Author Name Unknown Organization [facility] Address [address] [place] [facility] [place] [address] Phone [phone] Care Team Providers Care Radio Frequency Design Engineer Name Role Phone Orlin Castro MD Primary Care Provider + Reason for Visit * Reason Comments Medication Refill Encounter Details Date Type Department Care Team (Late st Contact Info) Description 07/07/2024 Refill Nephrology, [facility] Singh 200 [facility] [place] [address] Pedro Oates MD [address] [facility] [place] [address] Allergies Active Allergy Reactions Criticality Noted Date Comments Zolpidem Tartrate Psych complications 6 Rosuvastatin 04/05/2020 Elevated lft Hydrochlorothiazide 12/29/2019 brenda Nsaids Other (Please comment) 04/14/2016 Gastric ulcer with anemia documented as of this encounter (statuses as of 07/07/2024) Medications ONETOUCH DELICA LANCETS FINE MISC Use [...] for Laryngectomy Tube 15 Each 11 07/29/19 Active Ipratropium-Albut angel 0.5-2.5 (3) MG/3ML Inhalation [...] Information Patient taking differently: Daily(AM), Reported on 05/30/2024 metFORMIN HCl ER 500 MG Oral Tablet [...] Tablet 3 4 10:08 AM EST 11/29/19 Active Ezetimibe 10 MG Oral Tablet (Zetia)Indication s:Mixed hyperlipidemia TAKE ONE TABLET BY MOUTH EVERY DAY IN THE MORNING 90 Tablet 3 4 3:58 PM EST 11/26/19 24 2024 Active Repaglinide 1 MG Oral Tablet (Prandin)Indicati ons:Type 2 diabetes mellitus with hemoglobin A1c goal of less than 7.0% ([facility]) TAKE ONE-HALF TABLET BY MOUTH EVERY DAY WITH EVENING SNACK 45 Tablet 3 4 6:50 AM EST 12/31/19 Active Spiriva Respimat 2.5 MCG/ACT Inhalation Aerosol Solution (Tiotropium [place] Monohydrate) Inhale 2 Puffs by mouth in the morning. 4 g 3 4 6:32 PM EDT 04/04/20 24 Active OneTouch Verio In Vitro Strip (Glucose Blood)Indications :Type 2 diabetes mellitus with hemoglobin A1c goal of less than 7.0% ([facility]) Use to test blood glucose 4 times daily. 400 Strip 3 4 6:20 PM EDT 04/20/20 Active Doxycycline Hyclate 100 MG Oral Capsule Take 1 Capsule by mouth in the morning and 1 Capsule before bedtime. until gone.. 20 Capsule 05/16/20 24 Active Levothyroxine Sodium 200 MCG Oral [...] 6:01 PM EST 06/05/20 24 2024 Active Doxycycline Hyclate 100 MG Oral Capsule Take 1 Capsule by mouth in the morning and 1 Capsule before bedtime. until gone.. 20 Capsule 06/06/20 24 Active Losartan Potassium 100 MG Oral Tablet (Cozaar) TAKE ONE TABLET BY MOUTH EVERY DAY 180 Tablet 3 07/07/19 2025 Active Losartan Potassium 100 MG Oral Tablet (Cozaar) TAKE ONE TABLET BY MOUTH EVERY DAY 180 Tablet 3 4 10:30 AM EDT 07/07/19 24 2024 Pavel sampson(Ref ill) documented as of this encounter (statuses as of 07/07/2024) Active Problems Problem Noted Date Diagnosed Date [...] as of this encounter (statuses as of 07/07/2024) Resolved Problems Problem Noted Date Diagnosed Date [...] as of this encounter (statuses as of 07/07/2024) Immunizations Name Administration Dates Next Due COVID-19 mRNA, LNP-s, No Pre serve, 2-Dose Series (Moderna) 02/15/2021,01/09/2021,12/12/2020 Covid-19, Mrna, Lnp-s, Pf, B ivalent, 50 Mcg, IM, 12 yrs and above (Moderna) 07/07/2022 Hepatitis B, 20+ yrs 12/20/2014,07/27/2014,06/22 Pneumococcal Conjugate Vacc, 13 Valent (Prevnar) 04/26/2015,04/04/2015 Pneumococcal Polysaccharide PPV23 (Pneumovax) 03/04/2022,12/03/2013 Seasonal Influenza Vac., MDV , IM, 0.5 [...] No 06/22/2023 Does the household have a re gular source of income? 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 Answer Date of Assessment Author No 11/29/2020 9:57 PM EDT Laura Sandoval, LABOR RELATIONS CONSULTANT * Are you blind or do you have serious difficulty seeing, even when wearing glasses? Answer Date of Assessment Author No 11/29/2020 9:57 PM EDT Laura Sandoval, LABOR RELATIONS CONSULTANT * Do you have serious difficulty walking or climbing stairs? (5 years old or older) Answer Date of Assessment Author No 11/29/2020 9:57 PM EDT Laura Sandoval A, LABOR RELATIONS CONSULTANT * Do you have difficulty dressing or bathing? (5 years old or older) Answer Date of Assessment Author No 11/29/2020 9:57 PM EDT Laura Sandoval, LABOR RELATIONS CONSULTANT * Because of a physical, mental, or emotional condition, do you have difficulty doing errands alone such as visiting a doctors office or shopping? (15 years old or older) Answer Date of Assessment Author No 11/29/2020 9:57 PM EDT Laura Sandoval, LABOR RELATIONS CONSULTANT documented as of this encounter Mental Status * Because of a physical, mental, or emotional condition, do you have serious difficulty concentrating, remembering, or making decisions? (5 years old or older) Answer Entry Date Author No 11/29/2020 9:57 PM EDT Laura Sandoval, LABOR RELATIONS CONSULTANT documented in this encounter Miscellaneous Notes * Telephone Encounter - Pedro Oates MD - 07/07/2024 1:43 PM ESTSigned Prescriptions: Disp Refills Losartan Potassium 100 MG Oral Tablet (Coz*180 Ta*3 Sig: TAKE ONE TABLET BY MOUTH EVERY DAY Authorizing Provider: PEDRO OATES * Telephone Encounter - Raiza Gonzales RN - 07/07/2024 12:51 PM ESTPending Prescriptions: Disp Refills Losartan Potassium 100 MG Oral Tablet (Coz*180 Ta*3 Sig: TAKE ONE TABLET BY MOUTH EVERY DAY * Telephone Encounter - Raiza Gonzales RN - 07/07/2024 12:49 PM EST Prescription request received from pharmacy pending. Please authorize. Last OV 01/05/24 Next OV 10/03/24 documented in this encounter Plan of Treatment Upcoming Encounters Date Type Department Care Team (Late st Contact Info) Description 07/28/2024 10:40 AM EST Office Visit General Internal Medicine [facility] [address] [place] [address] Orlin Castro MD [address] [facility] [place] [address] 09/27/2024 8:45 AM EDT Office Visit Orthopaedics [facility] [address] [facility] [place] [address] Javon Bunn, [address] [place] [address] 10/03/2024 8:10 AM EDT Office Visit Pharmacy, [facility] [address] [place] [address] Pharmacist1, [facility] [address] [facility] [place] [address] 10/03/2024 8:40 AM EDT Office Visit Nephrology, [facility] [address] [place] [address] Pedro Oates MD [address] [place] [address] 04/04/2025 9:40 AM EDT Office Visit Pulmonary Medicine, [facility] [address] [place] [address] Perfecto Contreras MD [address] [place] [address] Scheduled Procedures Name Priority Associated Diagnoses Date/Ti [...] Depression Screening 06/22/2024 06/22/2023 GFR 07/15/2024 01/13/2024, 10/03, 08/23/2023, Additional history exists Mammogram 09/13/2024 09/14/2023, 09/02, 09/11/2022, Additional history exists Diabetic Foot Exam 09/29/2024 09/30/2023, 0 08/07/2022, 08/21/2021, Additional history exists HbA1c 11/13/2024 05/16/2024, 12/04, 09/30/2023, Additional history exists CKD HGB USE SMARTSET 68764 01/12/202501/12, 01/13/2024, 08/03/2023, Additional history exists CKD PHOS USE SMARTSET 83559 01/12/202501/02, 08/23/2023, 08/03/2023, Additional history exists Colonoscopy [...] this encounter Medical Devices Implanted Type Area Board Certified Orthodontist Device Identifier Shelf Expiration Date Model / Serial / Lot Stent Pancreatic Jonathan 5fr - [id number] Implanted:Qty: 1 on 06/17/2010 [place] [facility] [employer] 03/18/2013 [id number] / / [id number] Stent 10fr 7cm - [id number] Implanted:Qty: 1 on 06/17/2010 [place] [facility] [employer] : RADHA [place] 01/15/2013 [id number] / / [id number] Description:pancreas documented as of this encounter Advance [...] Power of Attor tanika? No Care Teams Radio Frequency Design Engineer Relationship Specialty Start Date End Date Orlin Castro MD [address] [place] [address] PCP - General Internal Medicine 04/27/19 documented as of this encounter
--- OUTSIDE RECORDS SUMMARY | 2024-07-16 08:01 | External Medical Summary | Summary of Care ---
Author Name Unknown Organization [facility] Address [address] [place] [address] Phone [phone] Care Team Providers Care Corrections Caseworker Name Role Phone Orlin Castro MD Primary Care Provider + Reason for Visit * Reason Comments Medication Refill Encounter Details Date Type Department Care Team (Late st Contact Info) Description 07/07/2024 Refill Nephrology, Avni Singh 200 [facility] [place] [address] Pedro Jean MD 200 [facility] [place] [address] Allergies Active Allergy Reactions Criticality Noted Date Comments Zolpidem Tartrate Psych complications 6 Rosuvastatin 04/05/2020 Elevated lft Hydrochlorothiazide 12/29/2019 brenda Nsaids Other (Please comment) 04/14/2016 Gastric ulcer with anemia documented as of this encounter (statuses as of 07/10/2024) Medications ONETOUCH DELICA LANCETS FINE MISC Use [...] 7.0% (FORMERLY [facility]) TAKE ONE-HALF TABLET BY MOUTH EVERY DAY WITH EVENING SNACK 45 Tablet 3 4 6:50 AM EST 12/31/19 Active Spiriva Respimat 2.5 MCG/ACT Inhalation Aerosol Solution (Tiotropium [place] Monohydrate) Inhale 2 Puffs by mouth in [...] as of this encounter (statuses as of 07/10/2024) Active Problems Problem Noted Date Diagnosed Date [...] as of this encounter (statuses as of 07/10/2024) Resolved Problems Problem Noted Date Diagnosed Date [...] as of this encounter (statuses as of 07/10/2024) Immunizations Name Administration Dates Next Due COVID-19 [...] 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 Answer Date of Assessment Author No 11/29/2020 9:57 PM EDT Laura Sandoval A, SENIOR PROCESS CONTROL TECH * Are you blind or do you have serious difficulty seeing, even when wearing glasses? Answer Date of Assessment Author No 11/29/2020 9:57 PM EDT Jasonolemaira Laura A, SENIOR PROCESS CONTROL TECH * Do you have serious difficulty walking or climbing stairs? (5 years old or older) Answer Date of Assessment Author No 11/29/2020 9:57 PM EDT Gerarodhooley Laura A, SENIOR PROCESS CONTROL TECH * Do you have difficulty dressing or bathing? (5 years old or older) Answer Date of Assessment Author No 11/29/2020 9:57 PM EDT Jasonolemaira Laura A, SENIOR PROCESS CONTROL TECH * Because of a physical, mental, or emotional condition, do you have difficulty doing errands alone such as visiting a doctors office or shopping? (15 years old or older) Answer Date of Assessment Author No 11/29/2020 9:57 PM EDT Jaime Laura A, SENIOR PROCESS CONTROL TECH documented as of this encounter Mental Status * Because of a physical, mental, or emotional condition, do you have serious difficulty concentrating, remembering, or making decisions? (5 years old or older) Answer Entry Date Author No 11/29/2020 9:57 PM EDT Jaime Laura A, SENIOR PROCESS CONTROL TECH documented in this encounter Miscellaneous Notes * Telephone Encounter - Andreia Martínez CPhT - 07/10/2024 8:19 AM EST pharmacy calling to check on status of losartan. Caller can be reached at [phone]. Thank you, Andreia Marítnez CphT Banquet Kitchen Supervisor III [facility] 07/10/24 * Telephone Encounter - Pedro Jean MD - 07/07/2024 1:43 PM ESTSigned Prescriptions: Disp Refills Losartan Potassium 100 MG Oral Tablet (Coz*180 Ta*3 Sig: TAKE ONE TABLET BY MOUTH EVERY DAY Authorizing Provider: PEDRO JEAN * Telephone Encounter - Raiza Gonzales RN [...] AM EST Office Visit [facility] [address] [place] [address] Orlin Castro MD [address] [place] [address] 09/27/2024 8:45 AM EDT Office Visit Orthopaedics [facility] [place] [address] Javon Bunn, [address] [place] [address] 10/03/2024 8:10 AM EDT Office Visit Pharmacy, [facility] 200 [facility] [place] [address] Pharmacist1, [facility] 200 [facility] [place] [address] 10/03/2024 8:40 AM EDT Office Visit Nephrology, [facility] [address] [facility] [place] [address] Pedro Jean MD 200 [facility] [place] [address] 04/04/2025 9:40 AM EDT Office Visit Pulmonary Medicine, [facility] 132 [facility] [place] [address] Perfecto Contreras MD [address] [place] [facility] [place] [address] Scheduled Procedures Name Priority Associated Diagnoses Date/Ti [...] Additional history exists CKD HGB USE SMARTSET 32704 01/12/202501/12, 01/13/2024, 08/03/2023, Additional history exists CKD PHOS USE SMARTSET 20604 01/12/202501/02, 08/23/2023, 08/03/2023, Additional history exists Colonoscopy [...] this encounter Medical Devices Implanted Type Area Bone Cooking Operator Device Identifier Shelf Expiration Date Model / Serial / Lot Stent Pancreatic Geenen 5fr - [id number] Implanted:Qty: 1 on 06/17/2010 at [place] [facility] [employer] 03/18/2013 [id number] / / [id number] Stent 10fr 7cm - [id number] Implanted:Qty: 1 on 06/17/2010 at [place] [facility] : RADHA [place] 01/15/2013 [id number] / / [id number] Description:pancreas documented as of this encounter Advance [...] Power of Attor tanika? No Care Teams Corrections Caseworker Relationship Specialty Start Date End Date Orlin Castro MD 200 [facility] [place] [address] PCP - General Internal Medicine 04/27/19 documented as of this encounter
--- OUTSIDE RECORDS SUMMARY | 2024-07-16 08:01 | External Medical Summary | Summary of Care ---
Author Name Unknown Organization [facility] Address [address] [facility] [place] [address] Phone [phone] Care Team Providers Care Net Software Developer Name Role Phone Orlin Castro MD Primary Care Provider + Reason for Visit * Reason Onset Date Comments Test Results 07/12/2024 Bronch Encounter Details Date Type Department Care Team (Late st Contact Info) Description 07/12/2024 Telephone Pulmonary Medicine, [facility] 132 [facility] [place] [phone] Perfecto Contreras MD [address] [facility] [place] [phone] Test Results (Bronch) Allergies Active Allergy Reactions Criticality Noted Date Comments Zolpidem Tartrate Psych complications 6 Rosuvastatin 04/05/2020 Elevated lft Hydrochlorothiazide 12/29/2019 brenda Nsaids Other (Please comment) 04/14/2016 Gastric ulcer with anemia documented as of this encounter (statuses as of 07/12/2024) Medications ONETOUCH DELICA LANCETS FINE MISC Use [...] 3 4 3:48 PM EST 09/07/19 24 025 Active amLODIPine Besylate 10 MG Oral Tablet (Norvasc)Indicati ons:Essential hypertension with goal blood pressure less than 140/90 TAKE ONE TABLET BY MOUTH EVERY DAY. 90 Tablet 3 4 9:08 AM EST 09/29/19 24 025 Active Additional Information Patient taking differently: Daily(AM), Reported on 05/30/2024 metFORMIN HCl ER 500 MG Oral Tablet Extended Release 24 Hour (Glucophage XR)Indications:Ty pe 2 diabetes mellitus with hemoglobin A1c goal of less than 7.0% ([facility]) Take 1 Tablet by mouth two times a day. 180 Tablet 3 4 10:34 AM EST 11/17/19 24 Active Repaglinide 2 MG Oral Tablet (Prandin)Indicati ons:Type 2 diabetes mellitus with hemoglobin A1c goal of less than 7.0% ([facility]) Take 1 tablet by mouth in the [...] 3 4 3:58 PM EST 11/26/19 24 025 Active Repaglinide 1 MG Oral Tablet (Prandin)Indicati ons:Type 2 diabetes mellitus with hemoglobin A1c goal of less than 7.0% ([facility]) TAKE ONE-HALF TABLET BY MOUTH EVERY DAY WITH EVENING SNACK 45 Tablet 3 4 6:50 AM EST 12/31/19 24 Active Spiriva Respimat 2.5 MCG/ACT Inhalation Aerosol Solution (Tiotropium [place] Monohydrate) Inhale 2 Puffs by mouth in the morning. 4 g 3 4 6:32 PM EDT 04/04/20 24 Active OneTouch Verio In Vitro Strip (Glucose Blood)Indications :Type 2 diabetes mellitus with hemoglobin A1c goal of less than 7.0% ([facility]) Use to test blood glucose 4 times daily. 400 Strip 3 4 6:20 PM EDT 04/20/20 24 Active Doxycycline Hyclate 100 MG Oral Capsule [...] 3 4 6:01 PM EST 06/05/20 24 025 Active Doxycycline Hyclate 100 MG Oral Capsule Take 1 Capsule by mouth in the morning and 1 Capsule before bedtime. until gone.. 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 Answer Date of Assessment Author No 11/29/2020 9:57 PM EDT Laura Sandoval LPN * Are you blind or do you have serious difficulty seeing, even when wearing glasses? Answer Date of Assessment Author No 11/29/2020 9:57 PM EDT Laura Sandoval LPN * Do you have serious difficulty walking or climbing stairs? (5 years old or older) Answer Date of Assessment Author No 11/29/2020 9:57 PM EDT Laura Sandoval LPN * Do you have difficulty dressing or bathing? (5 years old or older) Answer Date of Assessment Author No 11/29/2020 9:57 PM EDT Laura Sandoavl LPN * Because of a physical, mental, or emotional condition, do you have difficulty doing errands alone such as visiting a doctors office or shopping? (15 years old or older) Answer Date of Assessment Author No 11/29/2020 9:57 PM EDT Laura Sandoval LPN documented as of this encounter Mental Status * Because of a physical, mental, or emotional condition, do you have serious difficulty concentrating, remembering, or making decisions? 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 Patient is scheduled for office visit 07/13/2024. Results will be discussed along with review of management plan. Chart note. documented in this encounter Plan of Treatment Upcoming Encounters Date Type Department Care Team (Late st Contact Info) Description 07/13/2024 8:00 AM EST Office Visit Pulmonary Medicine, [facility] [place] [address] Perfecto Contreras MD [address] [place] [address] 07/28/2024 10:40 AM EST Office Visit General Internal Medicine [facility] [address] [facility] [place] [address] Orlin Castro MD [address] [facility] [address] [place] [address] 09/27/2024 8:45 AM EDT Office Visit [facility]opaedics [facility] [place] [phone] Javon Bunn DO 132 [facility] [place] [address] 10/03/2024 8:10 AM EDT Office Visit Pharmacy, [facility] 200 [facility] [place] [address] Pharmacist1, [facility] [address] [place] [address] 10/03/2024 8:40 AM EDT Office Visit Nephrology, [facility] [address] [place] [address] Galindo Jean MD 200 [facility] [place] [address] 04/04/2025 9:40 AM EDT Office Visit Pulmonary Medicine, [facility] 132 [facility] [place] [address] Perfecto Contreras MD [address] [place] [address] Scheduled Procedures Name Priority Associated Diagnoses Date/Ti [...] Additional history exists CKD HGB USE SMARTSET 32914 01/12/202501/12, 01/13/2024, 08/03/2023, Additional history exists CKD PHOS USE SMARTSET 72754 01/12/202501/02, 08/23/2023, 08/03/2023, Additional history exists Colonoscopy [...] this encounter Medical Devices Implanted Type Area Chronic Condition Nurse Device Identifier Shelf Expiration Date Model / Serial / Lot Stent Pancreatic Geenen 5fr - [id number] Implanted:Qty: 1 on 06/17/2010 at [place] [facility] [employer] 03/18/2013 [id number] / / [id number] Stent 10fr 7cm - [id number] Implanted:Qty: 1 on 06/17/2010 at [place] [facility] [employer]OOK : RADHA [place] 01/15/2013 [id number] / / [id number] Description:pancreas documented as of this encounter Advance [...] Power of Attor tanika? No Care Teams Net Software Developer Relationship Specialty Start Date End Date Orlin Castro MD [address] [place] [address] PCP - General Internal Medicine 04/27/19 documented as of this encounter
--- OUTSIDE RECORDS SUMMARY | 2024-07-16 08:01 | External Medical Summary | Summary of Care ---
Author Name Unknown Organization [facility] Address [address] [place] [address] Phone [phone] Care Team Providers Care Landscape Photographer Name Role Phone Orlin Castro MD Primary Care Provider + Encounter Details Date Type Department Care Team (Late st Contact Info) Description 07/06/2024 Population Health External Data Unspecified Department Allergies Active Allergy Reactions Criticality Noted Date Comments Zolpidem Tartrate Psych complications 6 Rosuvastatin 04/05/2020 Elevated lft Hydrochlorothiazide 12/29/2019 brenda Nsaids Other (Please comment) 04/14/2016 Gastric ulcer with anemia documented as of this encounter (statuses as of 07/11/2024) Medications ONETOUCH DELICA LANCETS FINE MISC Use [...] ns:COPD, group B, by GOLD 2017 classification ([facility]) Inhale via nebulizer 3 mL every [...] Respimat 2.5 MCG/ACT Inhalation Aerosol Solution (Tiotropium [place] Monohydrate) Inhale 2 Puffs by mouth in [...] until gone.. 20 Capsule 06/06/20 24 Active documented as of this encounter (statuses as of 07/11/2024) Active Problems Problem Noted Date Diagnosed Date [...] as of this encounter (statuses as of 07/11/2024) Resolved Problems Problem Noted Date Diagnosed Date [...] as of this encounter (statuses as of 07/11/2024) Immunizations Name Administration Dates Next Due COVID-19 [...] No 06/22/2023 Does the household have a [facility] source of income? 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 (5 years old or older) Answer Date of Assessment Author No 11/29/2020 9:57 PM Laura Lopez LPN * Do you have difficulty dressing or bathing? (5 years old or older) Answer Date of Assessment Author No 11/29/2020 9:57 PM EDT Laura Sandoval LPN * Because of a physical, mental, [...] 9:57 PM EDT Laura Sandoval LPN documented in this encounter Plan of Treatment Upcoming Encounters Date Type Department Care Team (Late st Contact Info) Description 07/28/2024 10:40 AM EST Office Visit General Internal Medicine [facility] [address] [place] [address] Orlin Castro MD [address] [place] [address] 09/27/2024 8:45 AM EDT Office Visit Orthopaedics [facility] [address] [place] [phone] Javon Bunn, [address] [place] [address] 10/03/2024 8:10 AM EDT Office Visit Pharmacy, [facility] [address] [place] [address] Pharmacist1, [facility] [address] [place] [address] 10/03/2024 8:40 AM EDT Office Visit Nephrology, [facility] [address] [place] [address] [address] Galindo Jean MD [address] [place] [address] [address] 04/04/2025 9:40 AM EDT Office Visit Pulmonary Medicine, [facility] [address] [place] [address] Perfecto Contreras MD [address] [place] [phone] Scheduled Procedures Name Priority Associated Diagnoses Date/Ti [...] 08/21/2021, Additional history exists HbA1c 11/13/2024 05/16/2024, 0602/2024, 09/30/2023, Additional history exists CKD HGB USE SMARTSET 62456 01/12/202501/12, 01/13/2024, 08/03/2023, Additional history exists CKD PHOS USE SMARTSET 43398 01/12/202501/02, 08/23/2023, 08/03/2023, Additional history exists Colonoscopy [...] this encounter Medical Devices Implanted Type Area Drafter Electrical Device Identifier Shelf Expiration Date Model / Serial / Lot Stent Pancreatic Jonathan 5fr - [id number] Implanted:Qty: 1 on 06/17/2010 at [place] [facility] [employer] 03/18/2013 [id number] / / [id number] Stent 10fr 7cm - [id number] Implanted:Qty: 1 on 06/17/2010 at [facility] COOK : RADHA [place]NA 01/15/2013 [id number] / / [id number] Description:pancreas documented as of this encounter Advance [...] Power of Attor tanika? No Care Teams Landscape Photographer Relationship Specialty Start Date End Date Orlin Castro MD 200 [place] [address] PCP - General Internal Medicine 04/27/19 documented as of this encounter
--- OUTSIDE RECORDS SUMMARY | 2024-07-16 08:01 | External Medical Summary | Summary of Care ---
Author Name Unknown Organization [facility] Address [address] [facility] [place] [address] Phone [phone] Care Team Providers Care [employer] Advisor Name Role Phone Orlin Castro MD Primary Care Provider + Reason for Visit * Reason Onset Date Comments Appointment 07/11/2024 Urgent appt need ed Encounter Details Date Type Department Care Team (Late st Contact Info) Description 07/11/2024 Telephone Pulmonary Medicine, [facility] 132 [facility] [place] [address] Perfecto Contreras MD [address] [facility] [phone] Appointment (Urgent appt needed) Allergies Active Allergy Reactions Criticality Noted Date [...] Trach Ties for Laryngectomy Tube 15 Each 07/29/19 22 Active Ipratropium-Albut angel 0.5-2.5 (3) MG/3ML Inhalation Solution (Duoneb)Indicatio ns:COPD, group B, by GOLD 2017 classification ([facility]) Inhale via nebulizer 3 mL [...] A1c goal of less than 7.0% ([facility]) Take 1 Tablet by mouth [...] Respimat 2.5 MCG/ACT Inhalation Aerosol Solution (Tiotropium [place] Monohydrate) Inhale 2 Puffs by mouth in the morning. 4 g 3 4 6:32 PM EDT 04/04/20 24 Active OneTouch Verio In Vitro Strip (Glucose Blood)Indications :Type 2 diabetes mellitus with hemoglobin A1c goal of less than 7.0% ([facility]) Use to test blood glucose [...] No 06/22/2023 Does the household have a [facility] hospit[facility] source of income? 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 Answer Date of Assessment Author No 11/29/2020 9:57 PM EDT Laura Sandoval, COLOR CARD MAKER * Are you blind or do you have serious difficulty seeing, even when wearing glasses? Answer Date of Assessment Author No 11/29/2020 9:57 PM EDT Laura Sandoval, COLOR CARD MAKER * Do you have serious difficulty walking or climbing stairs? (5 years old or older) Answer Date of Assessment Author No 11/29/2020 9:57 PM EDT Laura Sandoval, COLOR CARD MAKER * Do you have difficulty dressing or bathing? (5 years old or older) Answer Date of Assessment Author No 11/29/2020 9:57 PM EDT Laura Sandoval, COLOR CARD MAKER * Because of a physical, mental, or emotional condition, do you have difficulty doing errands alone such as visiting a doctors office or shopping? (15 years old or older) Answer Date of Assessment Author No 11/29/2020 9:57 PM EDT Laura Sandoval, COLOR CARD MAKER documented as of this encounter Mental Status * Because of a physical, mental, or emotional condition, do you have serious difficulty concentrating, remembering, or making decisions? (5 years old or older) Answer Entry Date Author No 11/29/2020 9:57 PM EDT Laura Sandoval, COLOR CARD MAKER documented in this encounter Miscellaneous Notes * Telephone Encounter - Alejandra Burger OSA - 07/12/2024 11:57 AM EST Patient is scheduled and aware of the date and time * Telephone Encounter - Alejandra Burger OSA - 07/12/2024 8:13 AM EST Lmom 07/12 * Telephone Encounter - Alejandra Burger OSA - 07/11/2024 3:42 PM EST Lmom to get pt scheduled * Telephone Encounter - Heather Ramirez LPN - 07/11/2024 12:09 PM EST ----- Message from Perfecto Contreras MD sent at 07/11/2024 9:49 AM EST ----- Regarding: FW: Plz schedule a follow up office visit to discuss bronch culture results. THX ----- Message ----- From: Isaac Haddad Automated Processing Sent: 05/04/2024 5:16 PM EST To: Perfecto Contreras MD documented in this encounter Plan of Treatment Upcoming Encounters Date Type Department Care Team (Late st Contact Info) Description 07/13/2024 8:00 AM EST Office Visit Pulmonary Medicine, [facility] 132 [facility] [place] [address] Perfecto Contreras MD [address] [place] [address] 07/28/2024 10:40 AM EST Office Visit General Internal Medicine [address] [place] [address] Orlin Castro MD [facility] [address] 09/27/2024 8:45 AM EDT Office Visit Orthopaedics [facility] [address] [place] [phone] Javon Bunn DO [address] [place] [address] 10/03/2024 8:10 AM EDT Office Visit Pharmacy, [facility] 200 [place] [address] Pharmacist1, [facility] 200 [facility] [place] [address] 10/03/2024 8:40 AM EDT Office Visit Nephrology, [facility] 200 [facility] [place] [address] Galindo Jean MD 200 [facility] [place] [address] 04/04/2025 9:40 AM EDT Office Visit Pulmonary Medicine, [facility] [address] [place] [address] Perfecto Contreras MD [address] [facility] [place] [address] Scheduled Procedures Name Priority Associated Diagnoses Date/Ti [...] Adult Wellness Visit 04/14/2024 04/14/2023 Albumin/Creatinine Ratio 05/05/20242 023, 05/14/2022, 05/01/2022, Additional history exists Depression Screening 06/22/2024 06/22/2023 GFR 07/15/2024 01/13/2024, 10/03, 08/23/2023, Additional history exists Mammogram 09/13/2024 09/14/2023, 09/02, 09/11/2022, Additional history exists Diabetic Foot Exam 09/29/2024 09/30/2023, 0 08/07/2022, 08/21/2021, Additional history exists HbA1c 11/13/2024 05/16/2024, 12/04, 09/30/2023, Additional history exists CKD HGB USE SMARTSET 30728 01/12/202501/12, 01/13/2024, 08/03/2023, Additional history exists CKD PHOS USE SMARTSET 15149 01/12/202501/02, 08/23/2023, 08/03/2023, Additional history exists Colonoscopy [...] this encounter Medical Devices Implanted Type Area Radio Recorder Device Identifier Shelf Expiration Date Model / Serial / Lot Stent Pancreatic Geenen 5fr - [id number] Implanted:Qty: 1 on 06/17/2010 at [place] [facility] [employer] 03/18/2013 [id number] / / [id number] Stent 10fr 7cm - [id number] Implanted:Qty: 1 on 06/17/2010 at [place] [facility] [employer]OOK : RADHA [place] 01/15/2013 [id number] / / [id number] Description:pancreas documented as of this encounter Advance [...] Power of Attor tanika? No Care Teams [employer] Advisor Relationship Specialty Start Date End Date Orlin Castro MD [address] [place] [address] [place] [address] PCP - General Internal Medicine 04/27/19 documented as of this encounter
--- OUTSIDE RECORDS SUMMARY | 2024-07-16 08:02 | External Medical Summary | Summary of Care ---
Author Name Unknown Organization [facility] Address [address] [facility] [facility] [address] Phone [phone] Care Team Providers Care Security Professional Name Role Phone Orlin Casrto MD Primary Care Provider + Reason for Visit * Reason Onset Date Comments Test Results 04/07/2024 Encounter Details Date Type Department Care Team (Late st Contact Info) Description 04/07/2024 Telephone Pulmonary Medicine, [facility] [address] [facility] [place] [id number] Perfecto Min MD [address] [facility] [place] [id number] Test Results Allergies Active Allergy Reactions Criticality Noted Date Comments Zolpidem Tartrate Psych complications 6 Rosuvastatin 04/05/2020 Elevated lft Hydrochlorothiazide 12/29/2019 brenda Nsaids Other (Please comment) 04/14/2016 Gastric ulcer with anemia documented as of this encounter (statuses as of 06/06/2024) Medications ONETOUCH DELICA LANCETS FINE MISC Use [...] mouth in the morning. 06/20/20 23 Active Losartan Potassium 100 MG Oral Tablet (Cozaar) TAKE ONE TABLET BY MOUTH EVERY DAY 180 Tablet 3 4 10:30 AM EDT 07/07/19 24 2024 Active Additional Information Patient taking differently: Daily(AM), Reported on 05/30/2024 Ferrous Sulfate 325 (65 Fe) MG Oral Tablet (Feosol) TAKE ONE TABLET THREE TIMES DAILY 270 Tablet 1 07/08/19 24 Active Carvedilol 25 MG Oral Tablet (Coreg)Indication s:HTN, goal below 140/90 TAKE ONE TABLET BY MOUTH 2 TIMES A DAY WITH MORNING AND EVENING MEALS 180 Tablet 3 4 1:46 PM EDT 09/07/19 24 2024 Active amLODIPine Besylate 10 MG Oral Tablet (Norvasc)Indicati ons:Essential hypertension with goal blood pressure less than 140/90 TAKE ONE TABLET BY MOUTH EVERY DAY. 90 Tablet 3 4 10:02 AM EDT 09/29/19 24 2024 Active Additional Information Patient taking differently: Daily(AM), Reported on 05/30/2024 metFORMIN HCl ER 500 MG Oral Tablet Extended Release 24 Hour (Glucophage XR)Indications:Ty pe 2 diabetes mellitus with hemoglobin A1c goal of less than 7.0% ([facility]) Take 1 Tablet by mouth two times a day. 180 Tablet 3 4 10:34 AM EST 11/17/19 24 Active Repaglinide 2 MG Oral Tablet (Prandin)Indicati ons:Type 2 diabetes mellitus with hemoglobin A1c goal of less than 7.0% (HCC) Take 1 tablet by mouth in the morning with breakfast and 1 tablet with supper. 180 Tablet 3 4 8:55 AM EDT 11/17/19 24 Active Cyclobenzaprine HCl 10 MG Oral Tablet (Flexeril)Indicat ions:Spasm of muscle TAKE ONE TABLET BY MOUTH AT BEDTIME NEEDED FOR MUSCLE SPASMS. 90 Tablet 3 4 6:08 PM EDT 11/29/19 Active Ezetimibe 10 MG Oral Tablet (Zetia)Indication s:Mixed hyperlipidemia TAKE ONE TABLET BY MOUTH EVERY DAY IN THE MORNING 90 Tablet 3 4 8:55 AM EDT 11/26/19 24 2024 Active Repaglinide 1 MG Oral Tablet (Prandin)Indicati ons:Type 2 diabetes mellitus with hemoglobin A1c goal of less than 7.0% (HCC) TAKE ONE-HALF TABLET BY MOUTH EVERY DAY WITH EVENING SNACK 45 Tablet 3 4 6:50 AM EST 12/31/19 Active Sodium Chloride 7 % Inhalation Nebulization Solution (Hyper-Allen) Inhale 4 mL via nebulizer 4 times a day as needed for Wheezing or Dyspnea. 360 mL 3 4 1:00 PM EDT 04/04/20 24 2023 Active Beclomethasone Diprop HFA 40 MCG/ACT Inhalation Aerosol Breath Activated (Qvar RediHaler) Inhale 2 Puffs by mouth in the morning and 2 Puffs before bedtime. 10.6 g 3 4 10:12 AM EDT 04/04/20 24 2024 Active Spiriva Respimat 2.5 MCG/ACT Inhalation Aerosol Solution (Tiotropium [place] Monohydrate) Inhale 2 Puffs by mouth in the morning. 4 g 3 4 6:32 PM EDT 04/04/20 Active Ventolin HFA 108 (90 Base) MCG/ACT Inhalation Aerosol Solution Inhale 2 Puffs by mouth every 4 hours as needed for Dyspnea or Wheezing. 18 g 3 4 6:32 PM EDT 04/04/20 24 2023 Active Doxycycline Hyclate 100 MG Oral Capsule Take 1 Capsule by mouth in the morning and 1 Capsule before bedtime. until gone.. 20 Capsule 05/16/20 24 Active Levothyroxine Sodium 200 MCG Oral Tablet (Levoxyl)Indicati ons:Postsurgical hypothyroidism TAKE 1 TABLET BY MOUTH DAILY AT LEAST 30 MINUTES PRIOR TO FIRST MEAL OF THE DAY OR OTHER MEDICATIONS 90 Tablet 3 4 8:55 AM EDT 03/15/20 23 2023 Disconti nujohn(Ref ill) documented as of this encounter (statuses as of 06/06/2024) Active Problems Problem Noted Date Diagnosed Date [...] as of this encounter (statuses as of 06/06/2024) Resolved Problems Problem Noted Date Diagnosed Date [...] as of this encounter (statuses as of 06/06/2024) Immunizations Name Administration Dates Next Due COVID-19 [...] 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 Answer Date of Assessment Author No 11/29/2020 9:57 PM EDT Jasonolemaira Laura A, HAZARDOUS MATERIALS DRIVER * Are you blind or do you have serious difficulty seeing, even when wearing glasses? Answer Date of Assessment Author No 11/29/2020 9:57 PM EDT Jasonolemaira Laura A, HAZARDOUS MATERIALS DRIVER * Do you have serious difficulty walking or climbing stairs? (5 years old or older) Answer Date of Assessment Author No 11/29/2020 9:57 PM EDT Gerardohooley Laura A, HAZARDOUS MATERIALS DRIVER * Do you have difficulty dressing or bathing? (5 years old or older) Answer Date of Assessment Author No 11/29/2020 9:57 PM EDT Gerardohooley Laura A, HAZARDOUS MATERIALS DRIVER * Because of a physical, mental, or emotional condition, do you have difficulty doing errands alone such as visiting a doctors office or shopping? (15 years old or older) Answer Date of Assessment Author No 11/29/2020 9:57 PM EDT Gerardohooley Laura A, HAZARDOUS MATERIALS DRIVER documented as of this encounter Mental Status * Because of a physical, mental, or emotional condition, do you have serious difficulty concentrating, remembering, or making decisions? (5 years old or older) Answer Entry Date Author No 11/29/2020 9:57 PM EDT Gerardohoolemaira Laura A, HAZARDOUS MATERIALS DRIVER documented in this encounter Miscellaneous Notes * Telephone Encounter - Perfecto Min MD - 06/05/2024 5:07 PM EST Images from the original note were not included. Please use Good Rx. It should be less than 10 dollars for doxycycline script . Above results are from [facility] Sincerely Dr. Min * Telephone Encounter - Lanie Uribe LPN - 05/17/2024 8:31 AM EST Pt aware via my g message * Addendum Note - Perfecto Min MD - 05/16/2024 6:47 PM ESTAddended by: PERFECTO MIN on: 05/16/2024 06:47 PM Modules accepted: Orders * Telephone Encounter - Perfecto Min MD - 05/16/2024 6:46 PM EST Results reviewed. Doxycycline 10 day therapy ordered, 100 mg twice daily * Telephone Encounter - Janeth Del Rosario LPN - 05/09/2024 12:10 PM EST Bronchoscopy results are back for your review. Cultures are positive for: >100,000 colonies/mL Staphylococcus aureus Abnormal 10,000 to 100,000 colonies/mL Corynebacterium striatum Abnormal * Telephone Encounter - Alejandra Burger OSA - 04/10/2024 10:57 AM EDT Mallory is now scheduled for 05/03. She is aware of the prep and date. * Telephone Encounter - Alejandra Burger OSA - 04/10/2024 9:38 AM EDT Mallory Called the office back, she can not do the procedure this week. She needs to give her work anotice. I will reschedule patient for the week of 05/01 * Telephone Encounter - Alejandra Burger OSA - 04/07/2024 8:53 AM EDT I can schedule Mallory a bronch in cardio on 04/12 at 1pm. I called patient and left a message for her to call back to confirm the date and go over the prep with her. * Telephone Encounter - Alejandra Burger OSA - 04/07/2024 8:53 AM EDT ----- Message from Perfecto Min MD sent at 04/05/2024 5:08 PM EDT ----- All good at my end for 04/12 at bronch suite. [facility] ----- Message ----- From: Alberto Ramos MD Sent: 04/05/2024 4:55 PM EDT To: Perfecto Min MD; Bertha Brower RRT; # I can add it to my schedule and have it done here. Since it is a regular bronch, I am sure Dr Min can squeeze it next week when he is rounding (between Wednesday and ) since I will be away and come back to the office on . Either way will work well Thank you Alberto ----- Message ----- From: Alejandra Burger OSA Sent: 04/05/2024 11:03 AM EDT To: Perfecto Min MD; Alberto Ramos MD; # 04/20 Dr. Min's schedule is full in the morning. Dr. Ramos do you agree to do this Bronch here ? Or Dr. Min we could maybe do it an afternoon when you are rounding in [place] on the ,, or . Would one of those days work for you ? ----- Message ----- From: Perfecto Min MD Sent: 04/04/2024 4:53 PM EDT To: Alberto Ramos MD; Bertha Brower RRT; # 04/20/2024 a.m. should work at my end at either place Alejandra/Lisa would need to clear the schedule to prevent conflicts with office. Also okay if Dr. Ramos agreeable to add to his schedule as feasible. Sincerely Dr Min ----- Message ----- From: Bertha Brower, HOSPICE CARE SALES CONSULTANT Sent: 04/04/2024 1:20 PM EDT To: Perfecto Min MD; # RT is working short-handed at the moment. The 2 days I could spare someone from here to head over there don't work for the [facility] staff. Charline did say Fridays are better for them, but I know Dr. Min is typically off on Fridays. There is a scheduled OR morning here at [facility] on 04/20/2024? I will look through the schedule again to see if anything else would work. Thank you. ----- Message ----- From: Perfecto Min MD Sent: 04/04/2024 12:02 PM EDT To: Bertha Brower RRT; KEVIN Newton 68 yr old female Recurrent Mucus plugging and bronchitis Laryngectomy status History of thyroid cancer History of pancreatic cancer History of adenomatous polyps Post Surgical Hypothyroidism COPD, GOLD Group B HLD T2DM GERD For GRW - Dr Min No C Arm No AC documented in this encounter Plan of Treatment Upcoming Encounters Date Type Department Care Team (Late st Contact Info) Description 06/29/2024 8:00 AM EST Office Visit [facility]opaed[facility] [address] [facility] [place] [address] Javon Bunn, [address] [facility] [place] [address] 07/04/2024 9:20 AM EST Office Visit General Internal Medicine [facility] [address] [facility] [place] [address] Orlin Castro MD [address] [facility] [place], [place] [address] 10/03/2024 8:10 AM EDT Office Visit Pharmacy, [facility] [address] [facility] [place] [address] Pharmacist1, [facility] [address] [facility] [place] [address] 10/03/2024 8:40 AM EDT Office Visit Nephrology, [facility] [address] [facility] [place], [place] [address] Galindo Jean MD [address] [facility] [place] [address] 04/04/2025 9:40 AM EDT Office Visit Pulmonary Medicine, [facility] [address] [facility] [place] [address] Perfecto Min MD [address] [place] [address] Scheduled Procedures Name Priority Associated Diagnoses Date/Ti [...] Additional history exists CKD HGB USE SMARTSET 67230 01/12/202501/12, 01/13/2024, 08/03/2023, Additional history exists CKD PHOS USE SMARTSET 75872 01/12/202501/02, 08/23/2023, 08/03/2023, Additional history exists Colonoscopy [...] this encounter Medical Devices Implanted Type Area Neurological Surgery Teacher Device Identifier Shelf Expiration Date Model / Serial / Lot Stent Pancreatic Geenen 5fr - [id number] Implanted:Qty: 1 on 06/17/2010 at OR [facility] [employer] 03/18/2013 [id number] / / [id number] Stent 10fr 7cm - [id number] Implanted:Qty: 1 on 06/17/2010 at OR [facility] [place] [employer] : RADHA [place] 01/15/2013 [id number] / / [id number] Description:pancreas documented as of this encounter Advance [...] Power of Attor tanika? No Care Teams Security Professional Relationship Specialty Start Date End Date Orlin Castro MD [address] [facility] [place] [address] PCP - General Internal Medicine 04/27/19 documented as of this encounter
--- OUTSIDE RECORDS SUMMARY | 2024-07-16 08:02 | External Medical Summary | Summary of Care ---
Author Name Unknown Organization [facility] Address [address] [facility] [address] Phone [phone] Care Team Providers Care Apprentice Carpenter Name Role Phone Orlin Castro MD Primary Care Provider + Reason for Visit * Reason Onset Date Comments Test Results 04/07/2024 Encounter Details Date Type Department Care Team (Late st Contact Info) Description 04/07/2024 Telephone Pulmonary Medicine, [facility] [address] [facility] [place] [id number] Prefecto Min MD [address] [facility] [place] [id number] Test Results Allergies Active Allergy Reactions Criticality [...] group B, by GOLD 2017 classification ([facility]) Inhale via nebulizer 3 mL [...] A1c goal of less than 7.0% ([facility]) Take 1 Tablet by mouth [...] Respimat 2.5 MCG/ACT Inhalation Aerosol Solution (Tiotropium [place] Monohydrate) Inhale 2 Puffs by mouth in [...] 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 Answer Date of Assessment Author No 11/29/2020 9:57 PM EDT Jasonolemaira Laura A, HEAD UP OPERATOR * Are you blind or do you have serious difficulty seeing, even when wearing glasses? Answer Date of Assessment Author No 11/29/2020 9:57 PM EDT Jasonolemaira Laura A, HEAD UP OPERATOR * Do you have serious difficulty walking or climbing stairs? (5 years old or older) Answer Date of Assessment Author No 11/29/2020 9:57 PM EDT Gerardohooley Laura A, HEAD UP OPERATOR * Do you have difficulty dressing or bathing? (5 years old or older) Answer Date of Assessment Author No 11/29/2020 9:57 PM EDT Gerardohooley Laura A, HEAD UP OPERATOR * Because of a physical, mental, or emotional condition, do you have difficulty doing errands alone such as visiting a doctors office or shopping? (15 years old or older) Answer Date of Assessment Author No 11/29/2020 9:57 PM EDT Gerardohooley Laura A, HEAD UP OPERATOR documented as of this encounter Mental Status * Because of a physical, mental, or emotional condition, do you have serious difficulty concentrating, remembering, or making decisions? (5 years old or older) Answer Entry Date Author No 11/29/2020 9:57 PM EDT Gerardohoolemaira Laura A, HEAD UP OPERATOR documented in this encounter Miscellaneous Notes * Telephone Encounter - Perfecto Min MD - 06/05/2024 5:07 PM EST Images from the original note were not included. Please use Good Rx. It should be less than 10 dollars for doxycycline script . Above results are from [facility] Sincerely Dr. Min * Telephone Encounter - [...] my end for 04/12 at bronch suite. [facility] ----- Message ----- From: Alberto [...] an afternoon when you are rounding in [place] on the ,, or . Would one [...] Min ----- Message ----- From: Bertha Brower, MARKETING BUDGET ANALYST Sent: 04/04/2024 1:20 PM EDT To: Perfecto Min MD; # RT is working short-handed at the moment. The 2 days I could spare someone from here to head over there don't work for the [facility] staff. Charline did say Fridays are better for them, but I know Dr. Min is typically off on Fridays. There is a scheduled OR morning here at [facility] on 04/20/2024? I will look through the [...] 06/29/2024 8:00 AM EST Office Visit Orthopaedics [facility] [address] [facility] [place] [address] Javon Bunn, [address] [facility] [place] [address] 07/04/2024 9:20 AM EST Office Visit General Internal Medicine [facility] [address] [facility] [place] [address] Orlin Castro MD [address] [facility] [place], [place] [address] 10/03/2024 8:10 AM EDT Office Visit Pharmacy, [facility] [address] [facility] [place] [address] Pharmacist1, [facility] [address] [facility] [place] [address] 10/03/2024 8:40 AM EDT Office Visit Nephrology, [facility] [address] [facility] [place], [place] [address] Galindo Jean MD [address] [facility] [place] [address] 04/04/2025 9:40 AM EDT Office Visit Pulmonary Medicine, [facility] [address] [facility] [place] [address] Perfecto Min MD [address] [place] [address] Scheduled Procedures Name Priority Associated Diagnoses Date/Ti [...] Additional history exists CKD HGB USE SMARTSET 39663 01/12/202501/12, 01/13/2024, 08/03/2023, Additional history exists CKD PHOS USE SMARTSET 06948 01/12/202501/02, 08/23/2023, 08/03/2023, Additional history exists Colonoscopy [...] this encounter Medical Devices Implanted Type Area Acetone Button Paster Device Identifier Shelf Expiration Date Model / Serial / Lot Stent Pancreatic Geenen 5fr - [id number] Implanted:Qty: 1 on 06/17/2010 at OR [facility] [employer] 03/18/2013 [id number] / / [id number] Stent 10fr 7cm - [id number] Implanted:Qty: 1 on 06/17/2010 at OR [facility] [employer] : RADHA [place] 01/15/2013 [id number] / / [id number] Description:pancreas documented as of this encounter Advance [...] Power of Attor tanika? No Care Teams Apprentice Carpenter Relationship Specialty Start Date End Date Orlin Castro MD [address] [facility] [place] [address] PCP - General Internal Medicine 04/27/19 documented as of this encounter
--- OUTSIDE RECORDS SUMMARY | 2024-07-16 08:02 | External Medical Summary | Summary of Care ---
Author Name Unknown Organization [facility] Address [address] [facility] [facility] [address] Phone [phone] Care Team Providers Care Resolution Specialist Name Role Phone Orlin Castro MD Primary Care Provider + Reason for Visit * Reason Onset Date Comments Test Results 04/07/2024 Encounter Details Date Type Department Care Team (Late st Contact Info) Description 04/07/2024 Telephone Pulmonary Medicine, [facility] [address] [facility] [place] [id number] Perfecto Min MD [address] [facility] [place] [id number] Test Results Allergies Active Allergy Reactions Criticality Noted Date Comments Zolpidem Tartrate Psych complications 6 Rosuvastatin 04/05/2020 Elevated lft Hydrochlorothiazide 12/29/2019 brenda Nsaids Other (Please comment) 04/14/2016 Gastric ulcer with anemia documented as of this encounter (statuses as of 06/05/2024) Medications ONETOUCH DELICA LANCETS FINE MISC Use [...] [facility]) Take 1 Tablet by mouth two times [...] WITH EVENING SNACK 45 Tablet 3 4 4:59 PM EST 12/31/19 Active Sodium Chloride 7 % [...] Respimat 2.5 MCG/ACT Inhalation Aerosol Solution (Tiotropium [place] Monohydrate) Inhale 2 Puffs by mouth in the morning. 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 Answer Date of Assessment Author No 11/29/2020 9:57 PM EDT Jasonolemaira Laura A, IT PROJECT COORDINATOR * Are you blind or do you have serious difficulty seeing, even when wearing glasses? Answer Date of Assessment Author No 11/29/2020 9:57 PM EDT Jasonolemaira Laura A, IT PROJECT COORDINATOR * Do you have serious difficulty walking or climbing stairs? (5 years old or older) Answer Date of Assessment Author No 11/29/2020 9:57 PM EDT Gerardohooley Laura A, IT PROJECT COORDINATOR * Do you have difficulty dressing or bathing? (5 years old or older) Answer Date of Assessment Author No 11/29/2020 9:57 PM EDT Gerardohooley Laura A, IT PROJECT COORDINATOR * Because of a physical, mental, or emotional condition, do you have difficulty doing errands alone such as visiting a doctors office or shopping? (15 years old or older) Answer Date of Assessment Author No 11/29/2020 9:57 PM EDT Gerardohooley Laura A, IT PROJECT COORDINATOR documented as of this encounter Mental Status * Because of a physical, mental, or emotional condition, do you have serious difficulty concentrating, remembering, or making decisions? (5 years old or older) Answer Entry Date Author No 11/29/2020 9:57 PM EDT Gerardohoolemaira Laura A, IT PROJECT COORDINATOR documented in this encounter Miscellaneous Notes * Telephone Encounter - Perfecto Min MD - 06/05/2024 5:07 PM EST Images from the original note were not included. Please use [facility]. It should be less than 10 dollars for doxycycline script . Above results are from [facility] Sincerely Dr. Min * Telephone Encounter - [...] my end for 04/12 at [address] [facility] ----- Message ----- From: Alberto Ramos MD [...] an afternoon when you are rounding in [place] on the ,, or . Would one [...] Min ----- Message ----- From: Bertha Brower, SENIOR SAFETY SUPPORT MANAGER Sent: 04/04/2024 1:20 PM EDT To: Perfecto Min MD; # RT is working short-handed at the moment. The 2 days I could spare someone from here to head over there don't work for the [facility] staff. Charline did say Fridays are better for them, but I know is typically off on Fridays. There is a scheduled OR morning here at [facility] on 04/20/2024? I will look through [...] 06/29/2024 8:00 AM EST Office Visit Orthopaedics [facility] [address] [facility] [place] [address] Javon Bunn, 132 [facility] [place] [address] 07/04/2024 9:20 AM EST Office Visit General Internal Medicine [facility] 200 [facility] [place] [address] Orlin Castro MD [address] [facility] [place], [place] [address] 10/03/2024 8:10 AM EDT Office Visit Pharmacy, [facility] [address] [facility] [place] [address] Pharmacist1, [facility] 200 [facility] [place] [address] 10/03/2024 8:40 AM EDT Office Visit Nephrology, [facility] 200 [facility] [place], [place] [address] Galindo Jean MD [address] [facility] [place] [address] 04/04/2025 9:40 AM EDT Office Visit Pulmonary Medicine, [facility] [address] [facility] [place] [address] Perfecto Min MD [address] [place] [address] Scheduled Procedures Name Priority Associated Diagnoses Date/Ti [...] Additional history exists CKD HGB USE SMARTSET 35995 01/12/202501/12, 01/13/2024, 08/03/2023, Additional history exists CKD PHOS USE SMARTSET 86828 01/12/202501/02, 08/23/2023, 08/03/2023, Additional history exists Colonoscopy [...] this encounter Medical Devices Implanted Type Area Oracle Consultant Device Identifier Shelf Expiration Date Model / Serial / Lot Stent Pancreatic Geenen 5fr - [id number] Implanted:Qty: 1 on 06/17/2010 at [place] [facility] [employer] 03/18/2013 [id number] / / [id number] Stent 10fr 7cm - [id number] Implanted:Qty: 1 on 06/17/2010 at [place] [facility] : RADHA MONTANA 01/15/2013 [id number] / / [id number] Description:pancreas documented as of this encounter Advance [...] Power of Attor tanika? No Care Teams Resolution Specialist Relationship Specialty Start Date End Date Orlin Castro MD [address] [facility] [place] [address] PCP - General Internal Medicine 04/27/19 documented as of this encounter
--- OUTSIDE RECORDS SUMMARY | 2024-07-16 08:02 | External Medical Summary | Summary of Care ---
Author Name Unknown Organization [facility] Address [address] [facility] [place] [address] Phone [phone] Care Team Providers Care Asthma Educator Name Role Phone Orlin Castro MD Primary Care Provider + Reason for Visit * Reason Onset Date Comments Test Results 06/12/2024 Bronch Encounter Details Date Type Department Care Team (Late st Contact Info) Description 06/12/2024 Telephone Pulmonary Medicine, [facility] [address] [facility] [place] [phone] Perfecto Contreras MD [address] [facility] [place] [id number] Test Results (Bronch) Allergies Active Allergy Reactions Criticality Noted Date Comments Zolpidem Tartrate Psych complications 6 Rosuvastatin 04/05/2020 Elevated lft Hydrochlorothiazide 12/29/2019 brenda Nsaids Other (Please comment) 04/14/2016 Gastric ulcer with anemia documented as of this encounter (statuses as of 06/12/2024) Medications ONETOUCH DELICA LANCETS FINE MISC Use [...] 3 4 10:30 AM EDT 07/07/19 24 025 Active Additional Information Patient taking [...] 3 4 10:02 AM EDT 09/29/19 24 025 Active Additional Information Patient taking differently: Daily(AM), Reported on 05/30/2024 metFORMIN HCl ER 500 MG Oral Tablet Extended Release 24 Hour (Glucophage XR)Indications:Ty pe 2 diabetes mellitus with hemoglobin A1c goal of less than 7.0% ([facility]) Take 1 Tablet by mouth two [...] Tablet 3 4 6:08 PM EDT 11/29/19 24 Active Ezetimibe 10 MG Oral [...] 4 6:50 AM EST 12/31/19 24 Active Sodium Chloride 7 % Inhalation Nebulization Solution (Hyper-Allen) Inhale 4 mL via nebulizer 4 times a day as needed for Wheezing or Dyspnea. 360 mL 3 4 1:00 PM EDT 04/04/20 24 024 Active Beclomethasone Diprop HFA 40 MCG/ACT Inhalation Aerosol Breath Activated (Qvar RediHaler) Inhale 2 Puffs by mouth in the morning and 2 Puffs before bedtime. 10.6 g 3 4 10:12 AM EDT 04/04/20 24 025 Active Spiriva Respimat 2.5 MCG/ACT Inhalation Aerosol Solution (Tiotropium [place] Monohydrate) Inhale 2 Puffs by mouth in the morning. 4 g 3 4 6:32 PM EDT 04/04/20 24 Active Ventolin HFA 108 (90 Base) MCG/ACT Inhalation Aerosol Solution Inhale 2 Puffs by mouth every 4 hours as needed for Dyspnea or Wheezing. 18 g 3 4 6:32 PM EDT 04/04/20 24 024 Active OneTouch Vermiguel In Vitro Strip (Glucose Blood)Indications :Type 2 [...] before bedtime. until gone.. 20 Capsule 06/06/20 Active documented as of this encounter (statuses as of 06/12/2024) Active Problems Problem Noted Date Diagnosed Date [...] as of this encounter (statuses as of 06/12/2024) Resolved Problems Problem Noted Date Diagnosed Date [...] of colon cancer 02/14/2019 Overview (11/01/2009): [facility]. 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 Chart note documented in this encounter Plan of Treatment Upcoming Encounters Date Type Department Care Team (Late st Contact Info) Description 06/29/2024 8:00 AM EST Office Visit Orthopaedics [facility] [address] [facility] [place] [address] Javon Bunn DO [address] [facility] [place] [address] 07/04/2024 9:20 AM EST Office Visit General Internal Medicine [facility] [address] [place] [address] Orlin Castro MD [address] [place] [address] [address] 10/03/2024 8:10 AM EDT Office Visit Pharmacy, [facility] [address] [place] [address] [address] Pharmacist1, [facility] [address] [facility] [place] [address] 10/03/2024 8:40 AM EDT Office Visit Nephrology, [facility] [address] [place] [address] [address] Galindo Jean MD [address] [place] [address] [address] 04/04/2025 9:40 AM EDT Office Visit Pulmonary Medicine, [facility] 132 [facility] [place] [address] Perfecto Contreras MD [address] [place] [address] Scheduled Procedures Name Priority Associated Diagnoses [...] Additional history exists CKD HGB USE SMARTSET 29963 01/12/202501/12, 01/13/2024, 08/03/2023, Additional history exists CKD PHOS USE SMARTSET 19734 01/12/202501/02, 08/23/2023, 08/03/2023, Additional history exists Colonoscopy [...] encounter Medical Devices Implanted Type Area Inspector And Mender Device Identifier Shelf Expiration Date Model / Serial / Lot Stent Pancreatic Geenen 5fr - [id number] Implanted:Qty: 1 on 06/17/2010 at OR [facility] [employer] 03/18/2013 [id number] / / [id number] Stent 10fr 7cm - [id number] Implanted:Qty: 1 on 06/17/2010 at OR [facility] [employer] : RADHA MONTANA 01/15/2013 [id number] / / [id number] Description:pancreas documented as of this encounter Advance [...] Power of Attor tanika? No Care Teams Asthma Educator Relationship Specialty Start Date End Date Orlin Castro MD [address] [place] [address] PCP - General Internal Medicine 04/27/19 documented as of this encounter
--- OUTSIDE RECORDS SUMMARY | 2024-07-16 08:02 | External Medical Summary | Summary of Care ---
Author Name Unknown Organization [facility] Address [address] [facility] [place] [address] Phone [phone] Care Team Providers Care Certified Athletic Trainer Name Role Phone Orlin Castro MD Primary Care Provider + Reason for Referral * Precert (Within 10 days (routine)) - Authorized Specialty Diagnoses / Procedures Referred By Contac t Referred To Contact Pain Medicine Diagnoses Primary osteoarthritis of both knees Procedures INJECT MAJOR JX/BURSA W/O US GUIDE Javon Bunn DO [address] [place] [address] Phone: tel: fax: Referral ID Status Reason Start Date Expiration Date V isits Requested Visits Authorized [id number] Authorized 06/29/2024 999 999 Reason for Visit * Reason Comments Follow Up B/L knee Knee Pain Encounter Details Date Type Department Care Team (Latest Contact Info) Description 06/29/2024 8:00 AM EST Office Visit Orthopaedics [facility] [address] [place] [address] Javon Bunn DO [address] [place] [address] Primary osteoarthritis of both knees* Allergies Active Allergy Reactions Criticality Noted Date Comments Zolpidem Tartrate Psych complications 6 Rosuvastatin 04/05/2020 Elevated lft Hydrochlorothiazide 12/29/2019 brenda Nsaids Other (Please comment) 04/14/2016 Gastric ulcer with anemia documented as of this encounter (statuses as of 06/29/2024) Medications ONETOUCH DELICA LANCETS FINE MISC Use [...] Respimat 2.5 MCG/ACT Inhalation Aerosol Solution (Tiotropium [place] Monohydrate) Inhale 2 Puffs by mouth in the morning. 4 g 3 4 6:32 PM EDT 04/04/20 24 Active Ventolin HFA 108 (90 Base) MCG/ACT Inhalation Aerosol Solution Inhale 2 Puffs by mouth every 4 hours as needed for Dyspnea or Wheezing. 18 g 3 4 6:32 PM EDT 04/04/20 24 024 Active OneTouch Verio In Vitro Strip (Glucose Blood)Indications :Type 2 diabetes mellitus with hemoglobin A1c goal of less than 7.0% ([facility]) Use to test blood glucose [...] bedtime. until gone.. 20 Capsule 06/06/20 Active Hospital, Clinic, or Other Facility Administered Medication Ordered Dose Route Frequency Start Date End Date Status lidocaine 1% 1 mL - triamcinolone acetonide 40 mg/mL 1 mL inj 2 mLIndications:Primary osteoarthritis of both knees 2 mL IJ ONCE 06/29/2024 06/29/2024 Ended lidocaine 1% 1 mL - triamcinolone acetonide 40 mg/mL 1 mL inj 2 mLIndications:Primary osteoarthritis of both knees 2 mL IJ ONCE 06/29/2024 06/29/2024 Ended documented as of this encounter (statuses as of 06/29/2024) Active Problems Problem Noted Date Diagnosed Date [...] as of this encounter (statuses as of 06/29/2024) Resolved Problems Problem Noted Date Diagnosed Date [...] as of this encounter (statuses as of 06/29/2024) Immunizations Name Administration Dates Next Due COVID-19 [...] 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 Answer Date of Assessment Author No 11/29/2020 9:57 PM EDT Laura Sandoval, SAFETY INSPECTOR * Are you blind or do you have serious difficulty seeing, even when wearing glasses? Answer Date of Assessment Author No 11/29/2020 9:57 PM EDT Laura Sandoval SAFETY INSPECTOR * Do you have serious difficulty walking or climbing stairs? (5 years old or older) Answer Date of Assessment Author No 11/29/2020 9:57 PM EDT Laura Sandoval SAFETY INSPECTOR * Do you have difficulty dressing or bathing? (5 years old or older) Answer Date of Assessment Author No 11/29/2020 9:57 PM EDT Laura Sandoval, SAFETY INSPECTOR * Because of a physical, mental, or emotional condition, do you have difficulty doing errands alone such as visiting a doctors office or shopping? (15 years old or older) Answer Date of Assessment Author No 11/29/2020 9:57 PM EDT Laura Sandoval SAFETY INSPECTOR documented as of this encounter Mental Status * Because of a physical, mental, or emotional condition, do you have serious difficulty concentrating, remembering, or making decisions? (5 years old or older) Answer Entry Date Author No 11/29/2020 9:57 PM EDLaura Alcantara SAFETY INSPECTOR documented in this encounter Progress Notes * Javon Bunn, DO - 06/29/2024 8:00 AM EST Mallory Soto [id number] INJECTION NOTE Mallory Soto is a 68 year old female who presents to [facility] for Bilateral knee injections Last injected 03/29/24 TODAY: She would like repeat injections Patient Active Problem List Diagnosis Insomnia Postsurgical hypothyroidism Tracheostomy status (HCC) Mitral valve regurgitation History of thyroid cancer Type 2 diabetes mellitus with hemoglobin A1c goal of less than 7.0% (HCC) Hypertension goal BP (blood pressure) < 140/90 History of pancreatic cancer Family history of familial adenomatous polyposis Gastroesophageal reflux disease without esophagitis Mixed hyperlipidemia COPD, group B, by GOLD 2017 classification ([facility]) Obesity, Class I, BMI 30.0-34.9 (see actual BMI) Diabetes mellitus with proteinuria (HCC) Psoriasis Pancreatic duct dilated Adrenal nodule (HCC) Primary aldosteronism (HCC) Type 2 diabetes mellitus with stage 3 chronic kidney disease, without long-term current use of insulin (HCC) Stage 3 chronic kidney disease (HCC) Hypertensive kidney disease with chronic kidney disease stage III (HCC) Current Outpatient Medications Medication Sig Dispense Refill [...] Formoterol Fumarate 20 MCG/2ML Inhalation Nebulization Solution Misc. Devices Electrolarynx Medically necessary 1 Each [...] DAY WITH EVENING SNACK 45 Tablet 3 Sodium Chloride 7 % Inhalation Nebulization Solution (Hyper-Allen) Inhale 4 mL via nebulizer 4 times a day as needed for Wheezing or Dyspnea. 360 mL 3 Beclomethasone Diprop HFA 40 MCG/ACT Inhalation Aerosol Breath Activated (Qvar RediHaler) Inhale 2 Puffs by mouth in the morning and 2 Puffs before bedtime. 10.6 g 3 Spiriva Respimat 2.5 MCG/ACT Inhalation Aerosol Solution (Tiotropium [place] Monohydrate) Inhale 2 Puffs by mouth in the morning. 4 g 3 Ventolin HFA 108 (90 Base) MCG/ACT Inhalation Aerosol Solution Inhale 2 Puffs by mouth every 4 hours as needed for Dyspnea or Wheezing. 18 g 3 OneTouch Verio In Vitro Strip (Glucose Blood) Use to test blood glucose 4 times daily. 400 Strip 3 Doxycycline Hyclate 100 MG Oral Capsule Take 1 Capsule by mouth in the morning and 1 Capsule beforebedtime. until gone.. 20 Capsule 0 Levothyroxine Sodium 200 MCG Oral Tablet (Levoxyl) TAKE 1 TABLET BY MOUTH DAILY AT LEAST 30 MINUTESPRIOR TO FIRST MEAL OF THE DAY OR OTHER MEDICATIONS 90 Tablet 1 Pantoprazole Sodium 40 MG Oral Tablet Delayed Release (Protonix) TAKE ONE TABLET BY MOUTH EVERY DAY90 Tablet 3 Doxycycline Hyclate 100 MG Oral Capsule Take 1 Capsule by mouth in the morning and 1 Capsule beforebedtime. until gone.. 20 Capsule 0 No current facility-administered medications for this visit. Physical Exam General: in no acute distress Mood and Affect: normal Gait and Station: mildly antalgic Knee exam Active range of motion 0-110 No effusion tenderness to palpation at medial joint line bilateral Assessment and Plan: see procedure note. Follow up 3 months or longer Primary osteoarthritis of both knees (Primary) - lidocaine 1% 1 mL - triamcinolone acetonide 40 mg/mL 1 mL inj 2 mL - lidocaine 1% 1 mL - triamcinolone acetonide 40 mg/mL 1 mL inj 2 mL - INJECT MAJOR JX/BURSA W/O US GUIDE Javon Bunn DO, MBA, FAAFP, RMSK [facility] Sports Web Development InternCaul Dresser Primary Care Sports Medicine Team Physician [facility] Office locations: Orthopaedics [address] [place] [address] [address] This chart was completed in part utilizing [employer] Speech Voice Recognition Software. Grammatical errors, random word insertions, pronoun errors, and incomplete sentences are an occasional consequence of this system due to software limitations, ambient noise, and hardware issues. Any formal questions or concerns about the content, text, or information contained within the body of this dictation should be directly addressed to the provider for clarification. Mallory Soto [id number] Procedure note (knee injection), bilateral : Time [...] documented in this encounter Nursing Notes * Elena Coronel LPN - 06/29/2024 7:48 AM EST FUP B/L knee pain Pt c/o 9/10 pain today Pt here for repeat steroid injections Pt is unaccompanied Angela Herbert LPN documented in this encounter Plan of Treatment Upcoming Encounters Date Type Department Care Team (Late st Contact Info) Description 07/28/2024 10:40 AM EST Office Visit General Internal Medicine [facility] 200 [facility] [place], [place] [address] Orlin Castro MD 200 [facility] [place] [address] 09/27/2024 8:45 AM EDT Office Visit Orthopaedics [facility] 132 [place] [address] Javon Bunn, 132 [facility] [place] [address] 10/03/2024 8:10 AM EDT Office Visit Pharmacy, [facility] 200 [facility] [place] [address] Pharmacist1, [facility] 200 [facility] [place] [address] 10/03/2024 8:40 AM EDT Office Visit Nephrology, [facility] 200 [facility] [place] [address] Galindo Jean MD 200 [facility] [place] [address] 04/04/2025 9:40 AM EDT Office Visit Pulmonary Medicine, [facility] 132 [place] [address] Perfecto Contreras MD [address] [facility] [place] [address] Scheduled Orders Name Type Priority Associated Diagnoses Orde r Schedule INJECT MAJOR JX/BURSA W/O US GUIDE Procedures Routine Primary osteoarthritis of both knees Ordered: 06/29/2024 Scheduled Procedures Name Priority Associated Diagnoses Date/Ti [...] Additional history exists CKD HGB USE SMARTSET 46724 01/12/202501/12, 01/13/2024, 08/03/2023, Additional history exists CKD PHOS USE SMARTSET 79554 01/12/202501/02, 08/23/2023, 08/03/2023, Additional history exists Colonoscopy [...] this encounter Medical Devices Implanted Type Area Freight Tallier Device Identifier Shelf Expiration Date Model / Serial / Lot Stent Pancreatic Aldonen 5fr - [id number] Implanted:Qty: 1 on 06/17/2010 at [place] [facility] [employer] 03/18/2013 [id number] / / [id number] Stent 10fr 7cm - [id number] Implanted:Qty: 1 on 06/17/2010 at [place] [facility] NAN : RADHA MON[place]NA 01/15/2013 [id number] / / [id number] Description:pancreas documented as of this encounter Visit [...] 2 mL 2 mL, Injection, ONCE, On Kalyn 06/29/24 at 0830, For 1 dose, Lidocaine 1% 1mL Triamcinolone Acetonide 40 mg/mL 1 mL (Final concentration = 20 mg/mL) REFRIGERATE and SHAKE WELLIndications:Primary osteoarthritis of both knees Given 06/29/2024 9:12 AM EST 2 mL Knee Right lidocaine 1% 1 mL - triamcinolone acetonide 40 mg/mL 1 mL inj 2 mL 2 mL, Injection, ONCE, On Kalyn 06/29/24 at 0830, For 1 dose, Lidocaine 1% 1mL Triamcinolone Acetonide 40 mg/mL 1 mL (Final concentration = 20 mg/mL) REFRIGERATE and SHAKE WELLIndications:Primary osteoarthritis of both knees Given 06/29/2024 9:11 AM EST 2 mL Knee Left documented [...] Power of Attor tanika? No Care Teams Certified Athletic Trainer Relationship Specialty Start Date End Date Orlin Castro MD [address] [place] [address] PCP - General Internal Medicine 04/27/19 documented as of this encounter
--- OUTSIDE RECORDS SUMMARY | 2024-07-16 08:02 | External Medical Summary | Summary of Care ---
Author Name Unknown Organization [facility] Address [address] [facility] [address] Phone [phone] Care Team Providers Care Formwork Carpenter Name Role Phone Orlin Castro MD Primary Care Provider + Reason for Visit * Reason Onset Date Comments Test Results 04/07/2024 Encounter Details Date Type Department Care Team (Late st Contact Info) Description 04/07/2024 Telephone Pulmonary Medicine, [facility] 132 [facility] [place] [id number] Perfecto Min MD [address] [facility] [place] [id number] Test Results Allergies Active Allergy Reactions Criticality [...] of less than 7.0% ([facility]) Take 1 Tablet by mouth two times [...] Respimat 2.5 MCG/ACT Inhalation Aerosol Solution (Tiotropium [place] Monohydrate) Inhale 2 Puffs by mouth in [...] until gone.. 20 Capsule 05/16/20 24 Active Doxycycline Hyclate 100 MG Oral Capsule Take 1 Capsule by mouth in the morning and 1 Capsule before bedtime. until gone.. 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 * Telephone Encounter - Perfecto Min MD - 06/05/2024 5:07 PM EST Images from the original note were not included. Please use [facility]. It should be less than 10 dollars for doxycycline script . Above results are from [facility] Sincerely Dr. Min * Telephone Encounter - Lanie Uribe LPN - 05/17/2024 8:31 AM EST Pt aware via [employer] message * Addendum Note - Perfecto Min [...] my end for 04/12 at bronch [address]. MAIKEL BROWN ----- Message ----- From: Alberto Ramos MD Sent: 04/05/2024 4:55 PM EDT To: Perfecto Min MD; Bertha Brower, SUPERVISOR DETASSELING CREW; # I can add it to my [...] an afternoon when you are rounding in [place] on the ,, or . Would one [...] Dr Min ----- Message ----- From: Bertha Brower RRT Sent: 04/04/2024 1:20 PM EDT To: Perfecto Min MD; # RT is working short-handed at the moment. The 2 days I could spare someone from here to head over there don't work for the [facility] staff. Charline did say Fridays are better for them, but I know Dr. Min is typically off on Fridays. There is a scheduled OR morning here at [facility] on 04/20/2024? I will look through the [...] 06/29/2024 8:00 AM EST Office Visit Orthopaedics [facility] [address] [facility] [address] Javon Bunn DO [address] [facility] [place] [address] 07/04/2024 9:20 AM EST Office Visit General Internal Medicine [facility] 200 [facility] [place] [address] Orlin Castro MD 200 [facility] [place] [address] 10/03/2024 8:10 AM EDT Office Visit Pharmacy, [facility] 200 [facility] [place] [address] Pharmacist1, [facility] 200 [facility] [place] [address] 10/03/2024 8:40 AM EDT Office Visit Nephrology, [facility] 200 [facility] [place] [address] Galindo Jean MD 200 [facility] [place] [address] 04/04/2025 9:40 AM EDT Office Visit Pulmonary Medicine, [facility] [address] [facility] [place] [address] Perfecto Min MD [address] [place] [address] Scheduled Procedures Name Priority Associated Diagnoses Date/Ti [...] Additional history exists CKD HGB USE SMARTSET 23943 01/12/202501/12, 01/13/2024, 08/03/2023, Additional history exists CKD PHOS USE SMARTSET 16636 01/12/202501/02, 08/23/2023, 08/03/2023, Additional history exists Colonoscopy [...] this encounter Medical Devices Implanted Type Area Care Advocate Device Identifier Shelf Expiration Date Model / Serial / Lot Stent Pancreatic Geenen 5fr - [id number] Implanted:Qty: 1 on 06/17/2010 at [place] [facility] [place] [employer] 03/18/2013 [id number] / / [id number] Stent 10fr 7cm - [id number] Implanted:Qty: 1 on 06/17/2010 at [place] [facility] : RADHA [place] 01/15/2013 [id number] / / [id number] Description:pancreas documented as of this encounter Advance [...] Power of Attor tanika? No Care Teams Formwork Carpenter Relationship Specialty Start Date End Date Orlin Castro MD 200 [facility] [place], [place] [address] PCP - General Internal Medicine 04/27/19 documented as of this encounter
--- OUTSIDE RECORDS SUMMARY | 2024-07-16 08:02 | External Medical Summary | Summary of Care ---
Author Name Unknown Organization [facility] Address [address] [facility] [place] [address] Phone [phone] Care Team Providers Care Educational Resource Coordinator Name Role Phone Orlin Castro MD Primary Care Provider + Reason for Referral * Precert (Within 10 days (routine)) - Authorized Specialty Diagnoses / Procedures Referred By Contac t Referred To Contact Pain Medicine Diagnoses Primary osteoarthritis of both knees Procedures INJECT MAJOR JX/BURSA W/O US GUIDE Javon Bunn DO [address] [place] [address] Phone: tel: fax: Referral ID Status Reason Start Date Expiration Date V isits Requested Visits Authorized [id number] Authorized 06/29/2024 999 999 Reason for Visit * Reason Comments Follow Up B/L knee Knee Pain Encounter Details Date Type Department Care Team (Latest Contact Info) Description 06/29/2024 8:00 AM EST Office Visit Orthopaedics [facility] [address] [place] [address] Javon Bunn DO [address] [place] [address] Primary osteoarthritis of both knees* Allergies Active [...] Respimat 2.5 MCG/ACT Inhalation Aerosol Solution (Tiotropium [place] Monohydrate) Inhale 2 Puffs by mouth in [...] goal of less than 7.0% ([facility]) Use to test blood glucose 4 [...] knees 2 mL IJ ONCE 06/29/2024 06/29/2024 Active lidocaine 1% 1 mL - triamcinolone acetonide 40 mg/mL 1 mL inj 2 mLIndications:Primary osteoarthritis of both knees 2 mL IJ ONCE 06/29/2024 06/29/2024 Active documented as of this encounter (statuses [...] 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 Answer Date of Assessment Author No 11/29/2020 9:57 PM EDT Laura Sandoval, BARKEEP * Are you blind or do you have serious difficulty seeing, even when wearing glasses? Answer Date of Assessment Author No 11/29/2020 9:57 PM EDT Laura Sandoval BARKEEP * Do you have serious difficulty walking or climbing stairs? (5 years old or older) Answer Date of Assessment Author No 11/29/2020 9:57 PM EDT Laura Sandoval BARKEEP * Do you have difficulty dressing or bathing? (5 years old or older) Answer Date of Assessment Author No 11/29/2020 9:57 PM EDT Laura Sandoval, BARKEEP * Because of a physical, mental, or emotional condition, do you have difficulty doing errands alone such as visiting a doctors office or shopping? (15 years old or older) Answer Date of Assessment Author No 11/29/2020 9:57 PM EDT Laura Sandoval BARKEEP documented as of this encounter Mental Status * Because of a physical, mental, or emotional condition, do you have serious difficulty concentrating, remembering, or making decisions? (5 years old or older) Answer Entry Date Author No 11/29/2020 9:57 PM EDLaura Alcantara BARKEEP documented in this encounter Progress Notes * Javon Bunn, DO - 06/29/2024 8:00 AM EST Mallory Soto [id number] INJECTION NOTE Mallory Soto is a 68 year old female who presents to [facility] for Bilateral knee injections Last [...] GOLD 2017 classification ([facility]) Obesity, Class I, BMI 30.0-34.9 (see actual [...] Respimat 2.5 MCG/ACT Inhalation Aerosol Solution (Tiotropium [place] Monohydrate) Inhale 2 Puffs by mouth in [...] GUIDE Javon Bunn DO, MBA, FAAFP, RMSK [facility] Sports Cutting PressmanHorticultural Specialty Grower Field Primary Care Sports Medicine Team Physician [facility] Office locations: Orthopaedics [address] [place] [address] [address] This chart was completed in part utilizing [employer] Speech Voice Recognition Software. Grammatical errors, random word insertions, pronoun errors, and incomplete sentences are an occasional consequence of this system due to software limitations, ambient noise, and hardware issues. Any formal questions or concerns about the content, text, or information contained within the body of this dictation should be directly addressed to the provider for clarification. Mallory Soto [id number] Procedure note (knee injection), bilateral : Time [...] AM EST Office Visit General Internal Medicine [facility] 200 [facility] [place], [place] [address] Orlin Castro MD [address] [facility] [place] [address] 09/27/2024 8:45 AM EDT Office Visit Orthopaedics [facility] 132 [place] [address] Javon Bunn, 132 [facility] [place] [address] 10/03/2024 8:10 AM EDT Office Visit Pharmacy, [facility] [address] [facility] [place] [address] Pharmacist1, [facility] [address] [facility] [place] [address] 10/03/2024 8:40 AM EDT Office Visit Nephrology, [facility] [address] [facility] [place] [address] Galindo Jean MD 200 [place] [address] 04/04/2025 9:40 AM EDT Office Visit Pulmonary Medicine, [facility] 132 [place] [address] Perfecto Contreras MD [address] [place] [address] Scheduled Orders Name Type Priority Associated Diagnoses [...] Additional history exists CKD HGB USE SMARTSET 34434 01/12/202501/12, 01/13/2024, 08/03/2023, Additional history exists CKD PHOS USE SMARTSET 45838 01/12/202501/02, 08/23/2023, 08/03/2023, Additional history exists Colonoscopy [...] this encounter Medical Devices Implanted Type Area Valve Lapper Device Identifier Shelf Expiration Date Model / Serial / Lot Stent Pancreatic Geenen 5fr - [id number] Implanted:Qty: 1 on 06/17/2010 at OR [facility] [employer] 03/18/2013 [id number] / / [id number] Stent 10fr 7cm - [id number] Implanted:Qty: 1 on 06/17/2010 at OR [facility] [employer] : RADHA [place] 01/15/2013 [id number] / / [id number] Description:pancreas documented as of this encounter Visit Diagnoses Diagnosis Primary osteoarthritis of both knees- Primary Primary localized osteoarthrosis, lower leg documented in this encounter Advance Directives * [...] Power of Attor tanika? No Care Teams Educational Resource Coordinator Relationship Specialty Start Date End Date Orlin Castro MD [address] [facility] [place] [address] PCP - General Internal Medicine 04/27/19 documented as of this encounter
--- OUTSIDE RECORDS SUMMARY | 2024-07-16 08:03 | External Medical Summary | Summary of Care ---
Author Name Unknown Organization [facility] Address [address] [place] [address] Phone [phone] Care Team Providers Care Catalog Library Assistant Name Role Phone Orlin Castro MD Primary Care Provider + Reason for Visit * Reason Comments Medication Refill Encounter Details Date Type Department Care Team (Late st Contact Info) Description 06/05/2024 Refill General Internal Medicine [facility] 200 [facility] [place] [phone] Orlin Castro MD 200 [place] [address] Allergies Active Allergy Reactions Criticality Noted Date [...] 3 4 1:46 PM EDT 09/07/19 24 025 Active amLODIPine Besylate 10 [...] less than 7.0% ([facility]) Take 1 Tablet by mouth two times [...] 3 4 8:55 AM EDT 11/26/19 24 025 Active Repaglinide 1 MG Oral Tablet (Prandin)Indicati ons:Type 2 diabetes mellitus with hemoglobin A1c goal of less than 7.0% (HCC) TAKE ONE-HALF TABLET BY MOUTH EVERY DAY WITH EVENING SNACK 45 Tablet 3 4 8:33 AM EDT 12/31/19 24 Active Sodium Chloride 7 % [...] Respimat 2.5 MCG/ACT Inhalation Aerosol Solution (Tiotropium [place] Monohydrate) Inhale 2 Puffs by mouth in [...] before bedtime. until gone.. 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 * Because of a physical, mental, [...] encounter Miscellaneous Notes * Telephone Encounter - Jessica Jean MD - 06/05/2024 4:44 PM ESTSigned Prescriptions: Disp Refills Pantoprazole Sodium 40 MG Oral Tablet Sejal*90 Tab*3 Sig: TAKE ONE TABLET BY MOUTH EVERY DAYAuthorizing Provider: JESSICA JEAN documented in this encounter Plan of Treatment Upcoming Encounters Date Type Department Care Team (Late st Contact Info) Description 06/29/2024 8:00 AM EST Office Visit Orthopaedics [facility] 132 [place] [address] Javon Bunn DO 132 [facility] [place] [address] 07/04/2024 9:20 AM EST Office Visit General Internal Medicine [facility] [address] [place] [address] Orlin Castro MD 200 [facility] [place] [address] 10/03/2024 8:10 AM EDT Office Visit Pharmacy, [facility] 200 [facility] [place] [address] Pharmacist1, [facility] [address] [place], [place] [address] 10/03/2024 8:40 AM EDT Office Visit Nephrology, [facility] [address] [place], [place] [address] Galindo Jaen MD [address] [place], [place] [address] 04/04/2025 9:40 AM EDT Office Visit Pulmonary Medicine, [facility] 132 [facility] [place] [address] Perfecto Contreras MD [address] [place] [address] Scheduled Procedures Name Priority Associated Diagnoses Date/Ti [...] Additional history exists CKD HGB USE SMARTSET 73223 01/12/202501/12, 01/13/2024, 08/03/2023, Additional history exists CKD PHOS USE SMARTSET 80152 01/12/202501/02, 08/23/2023, 08/03/2023, Additional history exists Colonoscopy [...] this encounter Medical Devices Implanted Type Area Environmental Analyst Device Identifier Shelf Expiration Date Model / Serial / Lot Stent Pancreatic Geenen 5fr - [id number] Implanted:Q[place] 1 [place] [facility] [place] [place]18[place]2013 [id number] / / [id number] Stent 10fr 7cm - [id number] Implanted:Qty: 1 on 06/17/2010 [place] [facility] [place] RADHA [place] 01/15/2013 [id number] / / [id number] Description:pancreas documented as of this encounter Advance [...] Power of Attor tanika? No Care Teams Catalog Library Assistant Relationship Specialty Start Date End Date Orlin Castro MD 200 [place] [address] PCP - General Internal Medicine 04/27/19 documented as of this encounter
--- OUTSIDE RECORDS SUMMARY | 2024-07-16 08:03 | External Medical Summary | Summary of Care ---
Author Name Unknown Organization [facility] Address [address] [place] [address] Phone [phone] Care Team Providers Care Cafeteria Clerk Name Role Phone Orlin Castro MD Primary Care Provider + Reason for Visit * Reason Comments Pulmonary Function Test Encounter Details Date Type Department Care Team (Late st Contact Info) Description 05/03/2024 1:00 PM EDT PulmDiagnostic Pulmonary Function Lab, [address] [address] Chronic cough* Allergies Active Allergy Reactions Criticality Noted Date Comments Zolpidem Tartrate Psych complications 6 Rosuvastatin 04/05/2020 Elevated lft Hydrochlorothiazide 12/29/2019 brenda Nsaids Other (Please comment) 04/14/2016 Gastric ulcer with anemia documented as of this encounter (statuses as of 05/19/2024) Medications ONETOUCH DELICA LANCETS FINE MISC Use [...] MCG/2ML Inhalation Nebulization Solution 10/20/19 23 Active Levothyroxine Sodium 200 MCG Oral Tablet (Levoxyl)Indicati ons:Postsurgical hypothyroidism TAKE 1 TABLET BY MOUTH DAILY AT LEAST 30 MINUTES PRIOR TO FIRST MEAL OF THE DAY OR OTHER MEDICATIONS 90 Tablet 3 4 8:55 AM EDT 03/15/20 23 Active Misc. Devices Electrolarynx Medically necessary [...] [facility]) Take 1 Tablet by mouth two [...] Respimat 2.5 MCG/ACT Inhalation Aerosol Solution (Tiotropium [place] Monohydrate) Inhale 2 Puffs by mouth in the morning. 4 g 3 4 6:32 PM EDT 04/04/20 24 Active Ventolin HFA 108 (90 Base) MCG/ACT Inhalation Aerosol Solution Inhale 2 Puffs by mouth every 4 hours as needed for Dyspnea or Wheezing. 18 g 3 4 6:32 PM EDT 04/04/20 24 024 Active PaulJaylanstephon Rangelmiguel In Vitro Strip (Glucose Blood)Indications :Type 2 diabetes mellitus with hemoglobin A1c goal of less than 7.0% ([facility]) Use to test blood glucose 4 times daily. 400 Strip 3 4 6:20 PM EDT 04/20/20 24 Active documented as of this encounter (statuses as of 05/19/2024) Active Problems Problem Noted Date Diagnosed Date [...] as of this encounter (statuses as of 05/19/2024) Resolved Problems Problem Noted Date Diagnosed Date [...] colon cancer 02/14/2019 Overview (11/01/2009): [facility]. 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 (5 years old or older) Answer Entry Date Author No 11/29/2020 9:57 PM Laura Lopez LPN documented in this encounter Plan of Treatment Upcoming Encounters Date Type Department Care Team (Late st Contact Info) Description 05/30/2024 8:50 AM EST Office Visit Optometry, [place] [address] Rancho Chapman Jr., OD [address] [place] [address] 06/29/2024 8:00 AM EST Office Visit Orthopaedics [address] [place] [address] Javon Bunn, [address] [place] [address] 07/04/2024 9:20 AM EST Office Visit General Internal Medicine [facility] [address] [place] [address] Orlin Castro MD 200 [facility] [place] [address] 10/03/2024 8:10 AM EDT Office Visit Pharmacy, [facility] 200 [facility] [place] [address] Pharmacist1, [facility] 200 [facility] [place] [address] 10/03/2024 8:40 AM EDT Office Visit Nephrology, [facility] 200 [facility] [place] [address] Galindo Jean MD 200 [facility] [place] [address] 04/04/2025 9:40 AM EDT Office Visit Pulmonary Medicine, [facility] [address] [facility] [place] [address] Perfecto Contreras MD [address] [facility] [address] Scheduled Procedures Name Priority Associated Diagnoses Date/Ti me COLONOSCOPY FLEXIBLE PROXIMA L DIAGNOSTIC Recall History of colonic polyps Family history of colonic polyps Health Maintenance Due Date Last Done Comments Cologuard 2001 Fecal Occult Blood Test 2001 *COPD SEVERITY VERIFIED BY PFT 08/02/2019 Diabetic Eye Exam 01/13/2024 01/12/2023, , 01/12/2023, Additional history exists COVID-19 Vaccine ( season) 2024 04/07/2023, 07/07/2022, [...] Additional history exists CKD HGB USE SMARTSET 37366 01/12/202501/12, 01/13/2024, 08/03/2023, Additional history exists CKD PHOS USE SMARTSET 25043 01/12/202501/02, 08/23/2023, 08/03/2023, Additional history exists Colonoscopy 04/27/2025 04/27/2024, 04/05, 12/17/2022, Additional history exists Colorectal Cancer Screening 04/27/2025 O2 ASSESSMENT COMPLETED IN PAST YEAR FOR COPD 04/27/2025 04/27/2024 Sigmoidoscopy 04/29/2026 04/29/2021, 10/15/2020 DXA Scan 05/12/2026 [...] this encounter Medical Devices Implanted Type Area Energy Auditor Device Identifier Shelf Expiration Date Model / Serial / Lot Stent Pancreatic Geenen 5fr - [id number] Implanted:Qty: 1 on 06[place]17/2010 [place] [facility] [place] [employer] 03/18/2013 [id number] / / [id number] Stent 10fr 7cm - [id number] Implanted:Qty: 1 on 06/17/2010 [place] [facility] [place] RADHA [place] 01/15/2013 [id number] / / [id number] Description:pancreas documented as of this encounter Visit Diagnoses Diagnosis Chronic cough- Primary Cough documented in this encounter Advance Directives * [...] Power of Attor tanika? No Care Teams Cafeteria Clerk Relationship Specialty Start Date End Date Orlin Castro MD 200 [place] [address] PCP - General Internal Medicine 04/27/19 documented as of this encounter
--- OUTSIDE RECORDS SUMMARY | 2024-07-16 08:03 | External Medical Summary | Summary of Care ---
Author Name Unknown Organization [facility] Address [address] [facility] [address] Phone [phone] Care Team Providers Care Email Marketing Assistant Name Role Phone Orlin Castro MD Primary Care Provider + Reason for Visit * Reason Onset Date Comments Test Results 05/22/2024 Bronch Encounter Details Date Type Department Care Team (Late st Contact Info) Description 05/22/2024 Telephone Pulmonary Medicine, [facility] [address] [facility] [place] [address] Perfecto Contreras MD [address] [facility] [id number] Test Results (Bronch) Allergies Active Allergy Reactions Criticality Noted Date Comments Zolpidem Tartrate Psych complications 6 Rosuvastatin 04/05/2020 Elevated lft Hydrochlorothiazide 12/29/2019 brenda Nsaids Other (Please comment) 04/14/2016 Gastric ulcer with anemia documented as of this encounter (statuses as of 05/22/2024) Medications ONETOUCH DELICA LANCETS FINE MISC Use [...] Respimat 2.5 MCG/ACT Inhalation Aerosol Solution (Tiotropium [place] Monohydrate) Inhale 2 Puffs by mouth in [...] hemoglobin A1c goal of less than 7.0% ([facility]) Use to test blood glucose 4 times daily. 400 Strip 3 4 6:20 PM EDT 04/20/20 24 Active Doxycycline Hyclate 100 MG Oral Capsule Take 1 Capsule by mouth in the morning and 1 Capsule before bedtime. until gone.. 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 Answer Date of Assessment Author No 11/29/2020 9:57 PM Laura Lopez LPN * Are you blind or do [...] 11/29/2020 9:57 PM Laura Lopez LPN * Because of a physical, mental, [...] Telephone Encounter - Heather Ramirez LPN - 05/22/2024 7:43 AM EST ----- Message from Perfecto Contreras MD sent at 05/21/2024 5:41 PM EST ----- Bronchoscopy culture results 05/03/2024: Staph aureus and Corynebacterium isolates which are sensitive to: Bactrim,Tetracycline , oxacillin. Strains or resistant to clindamycin and erythromycin. Choice of antibiotic therapy for future outpatient antibiotic treatments: Bactrim/doxycycline Chart note documented in this encounter Plan of Treatment Upcoming Encounters Date Type Department Care Team (Late st Contact Info) Description 05/30/2024 8:50 AM EST Office Visit Optometry, [facility] [address] [place] [address] Rancho Chapman Jr., OD 16 [place] [address] 06/29/2024 8:00 AM EST Office Visit Orthopaedics [facility] 132 [place] [address] Javon Bunn DO 132 [place] [address] 07/04/2024 9:20 AM EST Office Visit General Internal Medicine [facility] [address] [place] [address] [address] Orlin Castro MD [address] [place] [address] [address] [address] 10/03/2024 8:10 AM EDT Office Visit Pharmacy, [facility] [address] [place] [address] [address] Pharmacist1, [facility] [address] [place] [address] 10/03/2024 8:40 AM EDT Office Visit Nephrology, [facility] [address] [place] [address] [address] Galindo Jean MD [address] [place] [address] [address] [address] 04/04/2025 9:40 AM EDT Office Visit Pulmonary Medicine, [facility] [address] [place] [address] Perfecto Contreras MD [address] [place] [address] Scheduled Procedures Name Priority Associated Diagnoses Date/Ti [...] Depression Screening 06/22/2024 06/22/2023 GFR 07/15/2024 01/13/2024, 04, 08/23/2023, Additional history exists Mammogram 09/13/2024 09/14/2023, 09/02, 09/11/2022, Additional history exists Diabetic Foot Exam 09/29/2024 09/30/2023, 0 08/07/2022, 08/21/2021, Additional history exists HbA1c 11/13/2024 05/16/2024, 12/04, 09/30/2023, Additional history exists CKD HGB USE SMARTSET 54825 01/12/202501/12, 01/13/2024, 08/03/2023, Additional history exists CKD PHOS USE SMARTSET 78810 01/12/202501/02, 08/23/2023, 08/03/2023, Additional history exists Colonoscopy [...] this encounter Medical Devices Implanted Type Area Diecast Machine Operator Device Identifier Shelf Expiration Date Model / Serial / Lot Stent Pancreatic Jonathan 5fr - [id number] Implanted:Qty: 1 on 06/17/2010 at [place] [facility] [employer] 03/18/2013 [id number] / / [id number] Stent 10fr 7cm - [id number] Implanted:Qty: 1 on 06/17/2010 at [place] [facility] [employer] : RADHA MON[place] 01/15/2013 [id number] / / [id number] Description:pancreas documented as of this encounter Advance [...] Power of Attor tanika? No Care Teams Email Marketing Assistant Relationship Specialty Start Date End Date Orlin Castro MD [address] [place] [address] PCP - General Internal Medicine 04/27/19 documented as of this encounter
--- OUTSIDE RECORDS SUMMARY | 2024-07-16 08:03 | External Medical Summary | Summary of Care ---
Author Name Unknown Organization [facility] Address [address] [facility] [place] [address] Phone [phone] Care Team Providers Care Steel Wool Machine Operator Name Role Phone Orlin Castro MD Primary Care Provider + Reason for Visit * Reason Onset Date Comments Test Results 04/07/2024 Encounter Details Date Type Department Care Team (Late st Contact Info) Description 04/07/2024 Telephone Pulmonary Medicine, [facility] 132 [facility] [place] [id number] Perfecto Min MD [address] [facility] [place] [id number] Test Results Allergies Active Allergy Reactions Criticality Noted Date Comments Zolpidem Tartrate Psych complications 6 Rosuvastatin 04/05/2020 Elevated lft Hydrochlorothiazide 12/29/2019 brenda Nsaids Other (Please comment) 04/14/2016 Gastric ulcer with anemia documented as of this encounter (statuses as of 06/02/2024) Medications ONETOUCH DELICA LANCETS FINE MISC Use [...] Respimat 2.5 MCG/ACT Inhalation Aerosol Solution (Tiotropium [place] Monohydrate) Inhale 2 Puffs by mouth in the morning. 4 g 3 4 6:32 PM EDT 04/04/20 24 Active Ventolin HFA 108 (90 Base) MCG/ACT Inhalation Aerosol Solution Inhale 2 Puffs by mouth every 4 hours as needed for Dyspnea or Wheezing. 18 g 3 4 6:32 PM EDT 04/04/20 24 024 Active Doxycycline Hyclate 100 MG Oral Capsule Take 1 Capsule by mouth in the morning and 1 Capsule before bedtime. until gone.. 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 [facility] ----- Message ----- From: Alberto Ramos MD [...] an afternoon when you are rounding in [place] on the ,, or . Would one [...] Min ----- Message ----- From: Bertha Brower, NIKITA Sent: 04/04/2024 1:20 PM EDT To: Perfecto Min MD; # RT is working short-handed at the moment. The 2 days I could spare someone from here to head over there don't work for the [facility] staff. Charline did say Fridays are better for them, but I know Dr. Min is typically off on Fridays. There is a scheduled OR morning here at [facility] on 04/20/2024? I will look [...] 06/29/2024 8:00 AM EST Office Visit Orthopaedics [facility] [address] [place] [address] Javon Bunn DO [address] [facility] [place] [address] 07/04/2024 9:20 AM EST Office Visit General Internal Medicine [facility] [address] [place] [address] [address] Orlin Castro MD [address] [place] [address] 10/03/2024 8:10 AM EDT Office Visit Pharmacy, [facility] [place] [address] [facility] [place] [address] Pharmacist1, [facility] [address] [place] [address] 10/03/2024 8:40 AM EDT Office Visit Nephrology, [facility] [address] [place], [place] [address] Galindo Jean MD [address] [place] [address] 04/04/2025 9:40 AM EDT Office Visit Pulmonary Medicine, [facility] 132 [facility] [place] [address] Perfecto Min MD [address] [place] [address] Scheduled Procedures Name Priority Associated Diagnoses Date/Ti [...] Additional history exists CKD HGB USE SMARTSET 65081 01/12/202501/12, 01/13/2024, 08/03/2023, Additional history exists CKD PHOS USE SMARTSET 60211 01/12/202501/02, 08/23/2023, 08/03/2023, Additional history exists Colonoscopy [...] this encounter Medical Devices Implanted Type Area Guillotine Operator Device Identifier Shelf Expiration Date Model / Serial / Lot Stent Pancreatic Kelsin 5fr - [id number] Implanted:Qty: 1 on 06/17/2010 at [place] [facility] [employer] 03/18/2013 [id number] / / [id number] Stent 10fr 7cm - [id number] Implanted:Qty: 1 on 06/17/2010 at [place] [facility] [place] [facility] : RADHA [place]NA 01/15/2013 [id number] / / [id number] Description:pancreas documented as of this encounter Advance [...] Power of Attor tanika? No Care Teams Steel Wool Machine Operator Relationship Specialty Start Date End Date Orlin Castro MD 200 [place] [address] PCP - General Internal Medicine 04/27/19 documented as of this encounter
--- OUTSIDE RECORDS SUMMARY | 2024-07-16 08:03 | External Medical Summary | Summary of Care ---
Author Name Unknown Organization [facility] Address [address] [place] [address] Phone [phone] Care Team Providers Care Pediatric Nurse Name Role Phone Orlin Castro MD Primary Care Provider + Reason for Visit * Reason Comments Eye Exam Yearly exam. No VA c hanges. Encounter Details Date Type Department Care Team (Late st Contact Info) Description 05/30/2024 8:50 AM EST Office Visit Optometry, [place] 16 [place] [address] Ari Staley, [place] Bull[place], MAGGY [address] [place], [place] [id number] Hyperopia with presbyopia of both eyes*; Type 2 diabetes mellitus with hemoglobin A1c goal of less than 7.0% ([facility]) Allergies Active Allergy Reactions Criticality Noted Date Comments Zolpidem Tartrate Psych complications 6 Rosuvastatin 04/05/2020 Elevated lft Hydrochlorothiazide 12/29/2019 brenda Nsaids Other (Please comment) 04/14/2016 Gastric ulcer with anemia documented as of this encounter (statuses as of 05/30/2024) Medications ONETOUCH DELICA LANCETS FINE MISC Use [...] Respimat 2.5 MCG/ACT Inhalation Aerosol Solution (Tiotropium [place] Monohydrate) Inhale 2 Puffs by mouth in [...] as of this encounter (statuses as of 05/30/2024) Active Problems Problem Noted Date Diagnosed Date [...] as of this encounter (statuses as of 05/30/2024) Resolved Problems Problem Noted Date Diagnosed Date [...] as of this encounter (statuses as of 05/30/2024) Immunizations Name Administration Dates Next Due COVID-19 [...] 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 Answer Date of Assessment Author No 11/29/2020 9:57 PM EDT Laura Sandoval, BUDGET CLERK * Are you blind or do you have serious difficulty seeing, even when wearing glasses? Answer Date of Assessment Author No 11/29/2020 9:57 PM EDT Laura Sandoval, BUDGET CLERK * Do you have serious difficulty walking or climbing stairs? (5 years old or older) Answer Date of Assessment Author No 11/29/2020 9:57 PM EDT Laura Sandoval BUDGET CLERK * Do you have difficulty dressing or bathing? (5 years old or older) Answer Date of Assessment Author No 11/29/2020 9:57 PM EDT Laura Sandoval, BUDGET CLERK * Because of a physical, mental, or emotional condition, do you have difficulty doing errands alone such as visiting a doctors office or shopping? (15 years old or older) Answer Date of Assessment Author No 11/29/2020 9:57 PM EDT Laura Sandoval, BUDGET CLERK documented as of this encounter Mental Status * Because of a physical, mental, or emotional condition, do you have serious difficulty concentrating, remembering, or making decisions? (5 years old or older) Answer Entry Date Author No 11/29/2020 9:57 PM EDT Laura Sandoval BUDGET CLERK documented in this encounter Progress Notes * Ari Staley, [place] Bull[place], OD - 05/30/2024 9:28 AM EST 05/30/2024 HPI: Mallory Soto is a 68 year old female who presents to the clinic for evaluation of Eye Exam (Yearly exam. No VA changes. ) No vision changes noted. T2DM exam Reviewed past medical, family, and social history. Reviewed nursing notes. 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 FAP---[facility] Family history of familial adenomatous polyposis 03/10/2019 [...] Thyroid cancer (HCC) TUBULAR ADENOMA- duodenum 07/07/2010 Assessment and Plan: (H52.03, H52.4) Hyperopia with presbyopia of both eyes (primary encounter diagnosis) Plan: EYEGLASS PRESCRIPTION (E11.9) Type 2 diabetes mellitus with hemoglobin A1c goal of less than 7.0% (HCC) Plan: DIABETIC EYE EXAM Monitor, no ophthalmic complication Return in about 1 year (around 05/30/2025) for Clinic Visit. documented in this encounter Nursing Notes * Harjit Newberry TECH - 05/30/2024 9:02 AM EST Mallory Soto is a 68 year old female who presents for yearly exam. No VA changes. . Last Visit: 01/12/2023 (in office), Visit date not found (telemedicine) She currently states no change in vision. Are you diabetic? Yes. Do you check your sugar daily? YES. Fasting BS this mornin mg/dl. LastHemoglobin A1C: Lab Results Component Value Date/Time HGBA1C 7.7 (H) 05/16/2024 10:51 AM HGBA1C 8.3 (H) 12/31/2023 09:27 AM HGBA1C 7.3 (H) 09/30/2023 09:13 AM HGBA1C 6.8 (H) 07/24/2020 10:20 AM HGBA1C 6.7 (H) 04/22/2020 08:57 AM HGBA1C 7.3 (H) 01/04/2020 09:20 AM Current Ophthalmic Medications: None VISUAL ACUITY/TONOMETRY/GLASS RX: See Eye EXAM documented in this encounter Plan of Treatment Upcoming Encounters Date Type Department Care Team (Late st Contact Info) Description 06/29/2024 8:00 AM EST Office Visit [facility]opaedics [facility] [place] [address] Javon Bunn DO [address] [place] [address] 07/04/2024 9:20 AM EST Office [facility] [place] [address] [place] [address] Orlin Castro MD [address] [place] [address] 10/03/2024 8:10 AM EDT Office Visit Pharmacy, Avni Singh [place] [address] [place] [address] [address] [address] Pharmacist1, [facility] [address] [place] [address] 10/03/2024 8:40 AM EDT Office Visit Nephrology, [facility] [place] [address] [place] [address] Galindo Jean MD 200 [facility] [address] [address] 04/04/2025 9:40 AM EDT Office Visit Pulmonary Medicine, [facility] [address] [place] [address] Perfecto Contreras MD [address] [place] [address] Scheduled Procedures Name Priority Associated Diagnoses Date/Ti [...] Additional history exists CKD HGB USE SMARTSET 27867 01/12/2025 07/11 /2024, 01/13/2024, 08/03/2023, Additional history exists CKD PHOS USE SMARTSET 25482 01/12/202501/02, 08/23/2023, 08/03/2023, Additional history exists Colonoscopy [...] this encounter Medical Devices Implanted Type Area Shoe Turner Device Identifier Shelf Expiration Date Model / Serial / Lot Stent Pancreatic Kelsin 5fr - [id number] Implanted:Qty: 1 on 06/17/2010 at [place] [facility] [place] [employer] 03/18/2013 [id number] / / [id number] Stent 10fr 7cm - [id number] Implanted:Qty: 1 on 06/17/2010 at [place] [facility] [place] : RADHA [place]NA 01/15/2013 [id number] / / [id number] Description:pancreas documented as of this encounter Visit Diagnoses Diagnosis Hyperopia with presbyopia of both eyes- Primary Type 2 diabetes mellitus with hemoglobin A1c goal of less than 7.0% ([facility]) documented in this encounter Advance Directives * [...] Power of Attor tanika? No Care Teams Pediatric Nurse Relationship Specialty Start Date End Date Orlin Castro MD [address] [place] [address], [place] [address] PCP - General Internal Medicine 04/27/19 documented as of this encounter
--- OUTSIDE RECORDS SUMMARY | 2024-07-16 08:03 | External Medical Summary | Summary of Care ---
Author Name Unknown Organization [facility] Address [address] [place] [address] Phone [phone] Care Team Providers Care Flooring Helper Name Role Phone Orlin Castro MD Primary Care Provider + Reason for Visit * Reason Comments Medication Refill Encounter Details Date Type Department Care Team (Late st Contact Info) Description 06/01/2024 Refill [facility] [address] [place] [address] Nhung Monzon MD [address] [place] [address] Postsurgical hypothyroidism Allergies Active Allergy Reactions Criticality Noted Date [...] Respimat 2.5 MCG/ACT Inhalation Aerosol Solution (Tiotropium [place] Monohydrate) Inhale 2 Puffs by mouth in the morning. 4 g 3 4 6:32 PM EDT 04/04/20 Active Ventolin HFA 108 (90 Base) MCG/ACT Inhalation Aerosol Solution Inhale 2 Puffs by mouth every 4 hours as needed for Dyspnea or Wheezing. 18 g 3 4 6:32 PM EDT 04/04/20 24 2023 Active OneTouch Verio In Vitro Strip (Glucose [...] DAY OR OTHER MEDICATIONS 90 Tablet 1 06/02/20 24 Active Levothyroxine Sodium 200 MCG Oral [...] colon cancer 02/14/2019 Overview (11/01/2009): [place]. 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 Not [...] encounter Miscellaneous Notes * Telephone Encounter - Nhung Monzon MD - 06/02/2024 12:07 PM ESTSigned Prescriptions: Disp Refills Levothyroxine Sodium 200 MCG Oral Tablet (*90 Tab*1 Sig: TAKE 1 TABLET BY MOUTH DAILY AT LEAST 30 MINUTES PRIOR TO FIRST MEAL OF THE DAY OR OTHER MEDICATIONS Authorizing Provider: NHUNG MONZON * Telephone Encounter - Trina Bruce LPN - 06/02/2024 9:06 AM ESTPending Prescriptions: Disp Refills Levothyroxine Sodium 200 MCG Oral Tablet (*90 Tab*1 Sig: TAKE 1 TABLET BY MOUTH DAILY AT LEAST 30 MINUTES PRIOR TO FIRST MEAL OF THE DAY OR OTHER MEDICATIONS * Telephone Encounter - Trina Bruce LPN - 06/02/2024 9:03 AM EST Please contact patient to reschedule her appt. Thank you! Pending Prescriptions: Disp Refills Levothyroxine Sodium 200 MCG Oral Tablet *90 Tab*1 Sig: TAKE 1 TABLET BY MOUTH DAILY AT LEAST 30 MINUTES PRIOR TO FIRST MEAL OF THE DAY OR OTHER MEDICATIONS 03/15/2023 (in office), 12/04/2019 (telemedicine) Last date the medication was ordered: 03/15/2023 Pharmacy: [facility] Labs: Lab Results Component Value Date/Time TSH - [facility] 2.04 03/15/2023 10:29 AM TSH - [facility] 4.84 (H) 07/24/2020 10:20 AM Lab Results Component Value Date/Time FREE T4 REFLEXIVE NOT APPLICABLE 10/12/2018 09:56 AM documented in this encounter Plan of Treatment Upcoming Encounters Date Type Department Care Team (Late st Contact Info) Description 06/29/2024 8:00 AM EST Office Visit Orthopaedics [facility] 132 [facility] [place] [address] Javon Bunn, 132 [facility] [place] [address] 07/04/2024 9:20 AM EST Office Visit General Internal Medicine [facility] 200 [facility] [place] [address] Orlin Castro MD 200 [facility] [place] [address] 10/03/2024 8:10 AM EDT Office Visit Pharmacy, [facility] 200 [facility] [place] [address] Pharmacist1, [facility] [address] [facility] [place] [address] 10/03/2024 8:40 AM EDT Office Visit Nephrology, [facility] 200 [facility] [place] [address] Galindo Jean MD 200 [facility] [place] [address] 04/04/2025 9:40 AM EDT Office Visit Pulmonary Medicine, [facility] 132 [facility] [place] [address] Perfecto Contreras MD [address] [place] [address] Scheduled Procedures Name Priority Associated Diagnoses Date/Ti me COLONOSCOPY FLEXIBLE PROXIMA L DIAGNOSTIC Recall History of colonic polyps Family history of colonic polyps Health Maintenance Due Date Last Done Comments Franchesca 2001 Fecal Occult Blood Test 2001 *COPD [...] Additional history exists CKD HGB USE SMARTSET 74480 01/12/202501/12, 01/13/2024, 08/03/2023, Additional history exists CKD PHOS USE SMARTSET 09312 01/12/202501/02, 08/23/2023, 08/03/2023, Additional history exists Colonoscopy [...] encounter Medical Devices Implanted Type Area Manager Strategy Device Identifier Shelf Expiration Date Model / Serial / Lot Stent Pancreatic Geenen 5fr - [id number] Implanted:Qty: 1 on 06/17/2010 at [place] [facility] [employer] 03/18/2013 [id number] / / [id number] Stent 10fr 7cm - [id number] Implanted:Qty: 1 on 06/17/2010 at [place] [facility] [employer] : RADHA MONTANA 01/15/2013 [id number] / / [id number] Description:pancreas documented as of this encounter Visit Diagnoses Diagnosis Postsurgical hypothyroidism documented in this encounter Advance Directives * [...] Power of Attor tanika? No Care Teams Flooring Helper Relationship Specialty Start Date End Date Orlin Castro MD 200 [place] [address] PCP - General Internal Medicine 04/27/19 documented as of this encounter
--- OUTSIDE RECORDS SUMMARY | 2024-07-16 08:04 | External Medical Summary ---
Author Name Unknown Address Unknown Organization K01:[facility] - [address] [place] [address] Laboratory Report Ordering Provider Test Date Status MECHELLE POOLE 05/03/2024 14:53:15 Final Observation Date Value Abnormality Reference (Units ) Status Bacteria identified in Specimen by Culture 05/03/2024 14:53:15 [id number]^ASPERGIL OZZIE SPECIES NOT A. FUMIGATUS Abnormal Final Aspergillus species not A. f umigatus Bacteria identified in Speci men by Culture 05/03/2024 14:53:15 [id number]^MOLD Abnormal Final Mold
Most closely resemb ling - Acremonium species Bacteria identified in Specimen by Culture 05/03/2024 14:53:15 [id number]^NON-SPORULATING MOLD Abnormal Final Non-sporulating mold
No further identification. Fungal Smear 05/03/2024 14:53:15 No yeast or hyphae seen. Final Test: Culture Fungus - Other
Specimen Source: Lung, Right lower lobe
Specimen Type: Bronchial Washing
Specimen Date: 05/03/2024 1453
Result Date: 05/24/2024 1523
Result Status: Final result
Abnormal: Yes
Resulting Lab: [facility]
[address] [facility]
[place] [address]

CULTURE

Aspergillus species not A. fumigatus (Abnormal)

Mold (Abnormal)

Most closely resembling - Acremonium species

Non-sporulating mold (Abnormal)

No further identification.

STAIN

No yeast or hyphae seen.

null Performing Location [facility] - [address] [facility] [address]
--- OUTSIDE RECORDS SUMMARY | 2024-07-16 08:04 | External Medical Summary ---
Author Name Unknown Address Unknown Organization K01:[facility] [place] [address] [place] [address]. [facility] [address] Laboratory Report Ordering Provider Test Date Status MECHELLE POOLE 05/03/2024 14:53:15 Final Observation Date Value Abnormality Reference (Units ) Status Bacteria identified in Specimen by Culture 05/03/2024 14:53:15 [id number]^MYCOB ACTERIUM AVIUM Very abnormal Final Mycobacterium avium
The genus species identification occurred by mass spectrometry and its performance characteristics were determined by [facility]. It has not been cleared or approved by the FDA.
The laboratory is regulated under CLIA as qualified to perform high-complexity testing. This test is used for clinical purposes. It should not be regarded as investigational or for research.
No further workup will be performed unless lab is notified. Microscopic observation [Identifier] in Specimen by Rhodamine-auramine fluorochrome stain 05/03/2024 14:53:15 No acid fast bacilli seen Final Test: Culture, AFB
Speci men Source: Lung, Right middle lobe
Specimen Type: Bronchoalveolar Lavage (BAL)
Specimen Date: 05/03/2024 1453
Result Date: 06/30/2024 1038
Result Status: Final result
Abnormal: Yes
Resulting Lab: [facility]
[address] [facility]
[place] [address]

CULTURE

Mycobacterium avium (Panic)

The genus species identification occurred by mass spectrometry and its
performance characteristics were determined by [facility]. It has not been cleared or approved by the FDA.
The laboratory is regulated under CLIA as qualified to perform
high-complexity testing. This test is used for clinical purposes. It should
not be regarded as investigational or for research.
No further workup will be performed unless lab is notified.

STAIN

No acid fast bacilli seen

null Performing Location LAB[facility]ORY [facility] - [facility] [address] [facility] [address]
--- OUTSIDE RECORDS SUMMARY | 2024-07-16 08:04 | External Medical Summary ---
Author Name Unknown Address Unknown Organization K01:[facility]ATORY [place] [address] [address] [facility] [address] Laboratory Report Ordering Provider Test Date Status MECHELLE POOLE 05/03/2024 14:53:15 Final Observation Date Value Abnormality Reference (Units ) Status Bacteria identified in Specimen by Culture 05/03/2024 14:53:15 [id number]^STAPHY LOCOCCUS AUREUS Abnormal Final >100,000 colonies/mL Staphyl ococcus aureus Bacteria identified in Specimen by Culture 05/03/2024 14:53:15 [id number]^CORYNEBACTERIUM STRIATUM Abnormal Final 10,000 to 100,000 colonies/m L Corynebacterium striatum
Antimicrobial susceptibility testing is not routinely performed on isolates of Corynebacterium striatum, which are susceptible to vancomycin, but can be resistant to other antimicrobials. Contact the microbiology laboratory if additional testing is required.
The genus species identification occurred by mass spectrometry and its performance characteristics were determined by [facility]. It has not been cleared or approved by the FDA.
The laboratory is regulated under CLIA as qualified to perform high-complexity testing. This test is used for clinical purposes. It should not be regarded as investigational or for research. Gram Stain 05/03/2024 14:53:15 Occasional P olymorphonuclear leukocytes Abnormal Final Gram Stain 05/03/2024 14:53:15 Many Gram positive cocci Abno rmal Final Performing Location [facility] [place] [address] [address] [facility] [facility] [address] Ordering Provider Test Date Status MECHELLE POOLE 05/03/2024 14:53:15 Final Observation Date Value Abnormality Reference (Units ) Status Clindamycin 05/03/2024 14:53:15 Resistant Final Erythromycin susceptibility 05/03/2024 14:53:15 Resistant Final Oxacillinsusceptibility 05/03/2024 14:53:15 0.5 Susceptible Final Tetracyclinesusceptibility 05/03/2024 14:53:15 <=1 Susceptible Final TMP-SMZ susceptibility 05/03/2024 14:53:15 <=10 Susceptible Final Vancomycinsusceptibility 05/03/2024 14:53:15 <=0.5 Susceptible Final Test: Culture, Bronchial, Qu antitative
Specimen Source: Lung, Right lower lobe
Specimen Type: Bronchial Washing
Specimen Date: 05/03/20241452
Result Date: 05/06/20241455
Result Status: Final result
Abnormal: Yes
Resulting Lab: [facility]
[address]
[place] [address]

CULTURE

>100,000 colonies/mL Staphylococcus aureus (Abnormal)

10,000 to 100,000 colonies/mL Corynebacterium striatum (Abnormal)

Antimicrobial susceptibility testing is not routinely performed on isolates
of Corynebacterium striatum, which are susceptible to vancomycin, but can
be resistant to other antimicrobials. Contact the microbiology laboratory
if additional testing is required.
The genus species identification occurred by mass spectrometry and its
performance characteristics were determined by [facility]. It has not been cleared or approved by the FDA.
The laboratory is regulated under CLIA as qualified to perform
high-complexity testing. This test is used for clinical purposes. It should
not be regarded as investigational or for research.

STAIN

Occasional Polymorphonuclear leukocytes

Many Gram positive cocci

SUSCEPTIBILITY

Staphylococcus
aureus
METHOD MICROBROTH
DILUTIONS

CLINDAMYCIN -- Resistant
ERYTHROMYCIN -- Resistant
OXACILLIN 0.5 Susceptible
TETRACYCLINE <=1 Susceptible
TRIMETH/SULFAMETHOXAZOLE <=10 Susceptible
VANCOMYCIN <=0.5 Susceptible

[facility] Location LABORATORY [facility] - [address] [facility] [address]
--- OUTSIDE RECORDS SUMMARY | 2024-07-16 08:04 | External Medical Summary | Summary of Care ---
Author Name Unknown Organization [facility] Address [address] [facility] [place] [address] Phone [phone] Care Team Providers Care Learning Support Specialist Name Role Phone Orlin Castro MD Primary Care Provider + Encounter Details Date Type Department Care Team (Late st Contact Info) Description 04/07/2024 Telephone Pulmonary Medicine, [facility] [address] [facility] [place] [address] Perfecto Contreras MD [address] [facility] [id number] Allergies Active Allergy Reactions Criticality Noted Date Comments Zolpidem Tartrate Psych complications 6 Rosuvastatin 04/05/2020 Elevated lft Hydrochlorothiazide 12/29/2019 brenda Nsaids Other (Please comment) 04/14/2016 Gastric ulcer with anemia documented as of this encounter (statuses as of 05/03/2024) Medications Medication Sig Dispensed Refills Start Date End Date Status ONETOUCH DELICA LANCETS FINE MISC Use to test blood sugar 4 times daily dx e11.9 400 Each 3 9 Suspended Additional Information [facility]. Devices [employer] Tracheostomy Care Kit #4601 1 Each 0 Suspended Additional Information Vitamin B-12 1000 MCG Oral Tablet Take 1 Tab by mouth daily. 90 Tab 3 1 Suspended Additional Information OneTouch Verio Flex System w/Device Kit Use as directed. To test blood sugars up to 4 times a day Dx E11.22 1 Kit 1 Suspended Additional Information Misc. Devices Laryngectomy tube, size 10LGT 3 Each 2 Suspended Additional Information Misc. Devices Velcro Trach Ties for Laryngectomy Tube 15 Each 11 2 Suspended Additional Information Ipratropium-Albute rol 0.5-2.5 (3) MG/3ML Inhalation Solution (Duoneb)Indication s:COPD, group B, by GOLD 2017 classification ([facility]) Inhale via nebulizer 3 mL every 6 hours as needed for Wheezing. 360 mL 1 2 Suspended Additional Information Formoterol Fumarate 20 MCG/2ML Inhalation Nebulization Solution 3 Suspended Levothyroxine Sodium 200 MCG Oral Tablet (Levoxyl)Indicatio ns:Postsurgical hypothyroidism TAKE 1 TABLET BY MOUTH DAILY AT LEAST 30 MINUTES PRIOR TO FIRST MEAL OF THE DAY OR OTHER MEDICATIONS 90 Tablet 3 3 Suspended Additional Information Misc. Devices Electrolarynx Medically necessary 1 Each 3 Suspended Additional Information Potassium Chloride ER 10 MEQ Oral Capsule Extended Release Take 20 Milliequivalent by mouth in the morning. 3 Suspended Losartan Potassium 100 MG Oral Tablet (Cozaar) TAKE ONE TABLET BY MOUTH EVERY DAY 180 Tablet 3 4 07/07/19 25 Suspended Additional Information Patient taking differently: Daily(AM), Reported on 01/05/2024 Ferrous Sulfate 325 (65 Fe) MG Oral Tablet (Feosol) TAKE ONE TABLET THREE TIMES DAILY 270 Tablet 1 4 Suspended Additional Information Carvedilol 25 MG Oral Tablet (Coreg)Indications :HTN, goal below 140/90 TAKE ONE TABLET BY MOUTH 2 TIMES A DAY WITH MORNING AND EVENING MEALS 180 Tablet 3 4 09/07/19 25 Suspended Additional Information amLODIPine Besylate 10 MG Oral Tablet (Norvasc)Indicatio ns:Essential hypertension with goal blood pressure less than 140/90 TAKE ONE TABLET BY MOUTH EVERY DAY. 90 Tablet 3 4 09/29/19 25 Suspended Additional Information Patient taking differently: Daily(AM), Reported on 01/05/2024 metFORMIN HCl ER 500 MG Oral Tablet Extended Release 24 Hour (Glucophage XR)Indications:Typ e 2 diabetes mellitus with hemoglobin A1c goal of less than 7.0% ([facility]) Take 1 Tablet by mouth two times a day. 180 Tablet 3 4 Suspended Additional Information Repaglinide 2 MG Oral Tablet (Prandin)Indicatio ns:Type 2 diabetes mellitus with hemoglobin A1c goal of less than 7.0% (HCC) Take 1 tablet by mouth in the morning with breakfast and 1 tablet with supper. 180 Tablet 3 4 Suspended Additional Information Cyclobenzaprine HCl 10 MG Oral Tablet (Flexeril)Indicati ons:Spasm of muscle TAKE ONE TABLET BY MOUTH AT BEDTIME NEEDED FOR MUSCLE SPASMS. 90 Tablet 3 4 Suspended Additional Information Ezetimibe 10 MG Oral Tablet (Zetia)Indications :Mixed hyperlipidemia TAKE ONE TABLET BY MOUTH EVERY DAY IN THE MORNING 90 Tablet 3 4 11/26/19 25 Suspended Additional Information Repaglinide 1 MG Oral Tablet (Prandin)Indicatio ns:Type 2 diabetes mellitus with hemoglobin A1c goal of less than 7.0% (HCC) TAKE ONE-HALF TABLET BY MOUTH EVERY DAY WITH EVENING SNACK 45 Tablet 3 4 Suspended Additional Information Sodium Chloride 7 % Inhalation Nebulization Solution (Hyper-Allen) Inhale 4 mL via nebulizer 4 times a day as needed for Wheezing or Dyspnea. 360 mL 3 4 07/03/20 24 Suspended Additional Information Beclomethasone Diprop HFA 40 MCG/ACT Inhalation Aerosol Breath Activated (Qvar RediHaler) Inhale 2 Puffs by mouth in the morning and 2 Puffs before bedtime. 10.6 g 3 4 07/05/19 25 Suspended Additional Information Spiriva Respimat 2.5 MCG/ACT Inhalation Aerosol Solution (Tiotropium [place] Monohydrate) Inhale 2 Puffs by mouth in the morning. 4 g 3 4 Suspended Additional Information Ventolin HFA 108 (90 Base) MCG/ACT Inhalation Aerosol Solution Inhale 2 Puffs by mouth every 4 hours as needed for Dyspnea or Wheezing. 18 g 3 4 07/04/20 24 Suspended Additional Information documented as of this encounter (statuses as of 05/03/2024) Active Problems Problem Noted Date Diagnosed Date [...] as of this encounter (statuses as of 05/03/2024) Resolved Problems Problem Noted Date Diagnosed Date [...] as of this encounter (statuses as of 05/03/2024) Immunizations Name Administration Dates Next Due COVID-19 [...] ages 0-17 years) Not on file 06/22/2023 Sex and Gender Information Value Date [...] 8:53 AM EDT ----- Message from Perfecto Contreras MD sent at 04/05/2024 5:08 PM EDT ----- All good at my end for 04/12 at bronch suite. [facility] ----- Message ----- From: Alberto Ramos MD Sent: 04/05/2024 4:55 PM EDT To: Perfecto Contreras MD; Bertha Brower RRT; # I can add it to my schedule and have it done here. Since it is a regular bronch, I am sure Dr Contreras can squeeze it next week when he is rounding (between Wednesday and ) since I will be away and come back to the office on . Either way will work well Thank you Alberto ----- Message ----- From: Alejandra Burger OSA Sent: 04/05/2024 11:03 AM EDT To: Perfecto Contreras MD; Alberto Ramos MD; # 04/20 Dr. Contreras's schedule is full in the morning. Dr. Ramos do you agree to do this Bronch here ? Or Dr. Contreras we could maybe do it an afternoon when you are rounding in [place] on the 7th,8th,9 or . Would one of those days work for you ? ----- Message ----- From: Perfecto Contreras MD Sent: 04/04/2024 4:53 PM EDT To: Alberto Ramos MD; Bertha Brower RRT; # 04/20/2024 a.m. should work at my end at either place Alejandra/Lisa would need to clear the schedule to prevent conflicts with office. Also okay if Dr. Ramos agreeable to add to his schedule as feasible. Sincerely Dr Contreras ----- Message ----- From: Bertha Brower, NIKITA Sent: 04/04/2024 1:20 PM EDT To: Perfecto Contreras MD; # RT is working short-handed at the moment. The 2 days I could spare someone from here to head over there don't work for the [facility] staff. Charline did say Fridays are better for them, but I know Dr. Contreras is typically off on Fridays. There is a scheduled OR morning here at [facility] on 04/20/2024? I will look through the schedule again to see if anything else would work. Thank you. ----- Message ----- From: Perfecto Contreras MD Sent: 04/04/2024 12:02 PM EDT To: Bertha Brower RRT; KEVIN Newton 68 yr old female Recurrent Mucus plugging and bronchitis Laryngectomy status History of thyroid cancer History of pancreatic cancer History of adenomatous polyps Post Surgical Hypothyroidism COPD, GOLD Group B HLD T2DM GERD For GRW - Dr Contreras No C Arm No AC documented in this encounter Plan of Treatment Upcoming Encounters Date Type Department Care Team (Late st Contact Info) Description 05/16/2024 10:50 AM EST Office Visit Pharmacy, [facility] [address] [place] [address] Pharmacist1, [facility] [address] [facility] [place] [address] 05/30/2024 8:50 AM EST Office Visit Optometry, [place] [address] [place] [address] Rancho Chapman Jr., OD [address] [place] [address] 06/29/2024 8:00 AM EST Office Visit Orthopaedics [facility] [address] [place] [address] Javon Bunn DO [address] [facility] [place] [address] 07/04/2024 9:20 AM EST Office Visit General Internal Medicine [facility] [address] [facility] [place] [address] Orlin Castro MD [address] [facility] [place] [address] 10/03/2024 8:40 AM EDT Office Visit Nephrology, [facility] [address] [facility] [address] Galindo Jean MD [address] [facility] [place] [address] 04/04/2025 9:40 AM EDT Office Visit Pulmonary Medicine, [facility] [address] [place] [address] Perfecto Contreras MD [address] [place] [address] Scheduled Procedures Name Priority Associated Diagnoses Date/Ti me PRE / POST CARE Mucus plugging of bronchi 05/03/2024 1:00 PM EDT Health Maintenance Due Date Last [...] 09/30/2023, 0 08/07/2022, 08/21/2021, Additional history exists CKD HGB USE SMARTSET 00965 01/12/202501/12, 01/13/2024, 08/03/2023, Additional history exists CKD PHOS USE SMARTSET 51867 01/12/202501/02, 08/23/2023, 08/03/2023, Additional history exists Colonoscopy [...] this encounter Medical Devices Implanted Type Area Dramatic Arts Historian Device Identifier Shelf Expiration Date Model / Serial / Lot Stent Pancreatic Geenen 5fr - [id number] Implanted:Q[place]17[place] [facility] [employer] 03/18/2013 [id number] / / [id number] Stent 10fr 7cm - [id number] Implanted:Qty: 1 on 06/17/2010 [place] [facility] [place] RADHA [place] 01/15/2013 [id number] / / [id number] Description:pancreas documented as of this encounter Advance [...] Power of Attor tanika? No Care Teams Learning Support Specialist Relationship Specialty Start Date End Date Orlin Castro MD [address] [place] [address] PCP - General Internal Medicine 04/27/19 documented as of this encounter
--- OUTSIDE RECORDS SUMMARY | 2024-07-16 08:04 | External Medical Summary | Summary of Care ---
Author Name Unknown Organization [facility] Address [address] [place] [address] Phone [phone] Care Team Providers Care Application Penetration Tester Name Role Phone Orlin Castro MD Primary Care Provider + Encounter Details Date Type Department Care Team (Late st Contact Info) Description 05/11/2024 Population Health External Data Unspecified Department Allergies Active Allergy Reactions Criticality Noted Date Comments Zolpidem Tartrate Psych complications 6 Rosuvastatin 04/05/2020 Elevated lft Hydrochlorothiazide 12/29/2019 brenda Nsaids Other (Please comment) 04/14/2016 Gastric ulcer with anemia documented as of this encounter (statuses as of 05/12/2024) Medications ONETOUCH DELICA LANCETS FINE MISC Use [...] [facility]) Take 1 Tablet by mouth two times a day. 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 Answer Date of Assessment Author No 11/29/2020 9:57 PM EDT Laura Sandoval, EYE SURGEON * Are you blind or do you have serious difficulty seeing, even when wearing glasses? Answer Date of Assessment Author No 11/29/2020 9:57 PM EDT Laura Sandoval, EYE SURGEON * Do you have serious difficulty walking or climbing stairs? (5 years old or older) Answer Date of Assessment Author No 11/29/2020 9:57 PM EDT Laura Sandoval, EYE SURGEON * Do you have difficulty dressing or bathing? (5 years old or older) Answer Date of Assessment Author No 11/29/2020 9:57 PM EDT Laura Sandoval, EYE SURGEON * Because of a physical, mental, or emotional condition, do you have difficulty doing errands alone such as visiting a doctors office or shopping? (15 years old or older) Answer Date of Assessment Author No 11/29/2020 9:57 PM EDT Laura Sandoval, EYE SURGEON documented as of this encounter Mental Status * Because of a physical, mental, or emotional condition, do you have serious difficulty concentrating, remembering, or making decisions? (5 years old or older) Answer Entry Date Author No 11/29/2020 9:57 PM EDT Laura Sandoval, EYE SURGEON documented in this encounter Plan of Treatment Upcoming Encounters Date Type Department Care Team (Late st Contact Info) Description 05/16/2024 10:50 AM EST Office Visit Pharmacy, [place] [address] [place] [address] Pharmacist1, [facility] [address] [place] [address] 05/30/2024 8:50 AM EST Office Visit Optometry, [address] [address] Rancho Chapman Jr., OD 16 [place] [address] 06/29/2024 8:00 AM EST Office Visit Orthopaedics [facility] [address] [facility] [place] [address] Javon Bunn, [address] [facility] [place] [address] 07/04/2024 9:20 AM EST Office Visit General Internal Medicine [facility] [address] [facility] [place] [address] Orlin Castro MD [address] [facility] [place] [address] 10/03/2024 8:40 AM EDT Office Visit Nephrology, [facility] [address] [facility] [place] [address] Galindo Jean MD [address] [facility] [place] [address] 04/04/2025 9:40 AM EDT Office Visit Pulmonary Medicine, [facility] 132 [facility] [place] [address] Perfecto Contreras MD [address] [place] [address] Scheduled Procedures Name Priority Associated Diagnoses Date/Ti [...] Additional history exists CKD HGB USE SMARTSET 55813 01/12/202501/12, 01/13/2024, 08/03/2023, Additional history exists CKD PHOS USE SMARTSET 77570 01/12/202501/02, 08/23/2023, 08/03/2023, Additional history exists Colonoscopy [...] this encounter Medical Devices Implanted Type Area Mud Mill Tender Device Identifier Shelf Expiration Date Model / Serial / Lot Stent Pancreatic Geenen 5fr - [id number] Implanted:Qty: 1 on 06/17/2010 [place] [facility] [employer] 03/18/2013 [id number] / / [id number] Stent 10fr 7cm - [id number] Implanted:Qty: 1 on 06/17/2010 [facility] COOK : RADHA [place] 01/15/2013 [id number] / / [id number] Description:pancreas documented as of this encounter Advance [...] Power of Attor tanika? No Care Teams Application Penetration Tester Relationship Specialty Start Date End Date Orlin Castro MD [address] [place] [address] PCP - General Internal Medicine 04/27/19 documented as of this encounter
--- OUTSIDE RECORDS SUMMARY | 2024-07-16 08:04 | External Medical Summary ---
Author Name Unknown Address Unknown Organization K01:[facility]ORY [facility] [place] [address] [place] [address]. [place] [address] Laboratory Report Ordering Provider Test Date Status MECHELLE POOLE 05/03/2024 14:53:15 Final Observation Date Value Abnormality Reference (Units ) Status Bacteria identified in Specimen by Culture 05/03/2024 14:53:15 [id number]^PENICIL LIUM SPECIES Abnormal Final Penicillium species Bacteria identified in Specimen by Culture 05/03/2024 14:53:15 [id number]^PAECILOMYCES SPECIES Abnormal Final Paecilomyces species Bacteria identified in Specimen by Culture 05/03/2024 14:53:15 [id number]^CLADOSPORIUM SPECIES Abnormal Final Cladosporium species
The genus species identification occurred by mass spectrometry and its performance characteristics were determined by [facility]. It has not been cleared or approved by the FDA.
The laboratory is regulated under CLIA as qualified to perform high-complexity testing. This test is used for clinical purposes. It should not be regarded as investigational or for research. Fungal Smear 05/03/2024 14:53:15 No yeast or hyphae seen. Final Test: Culture Fungus Other<b r/>Specimen Source: Lung, Right middle lobe
Specimen Type: Bronchoalveolar Lavage (BAL)
Specimen Date: 05/03/2024 1453
Result Date: 05/24/2024 0835
Result Status: Final result
Abnormal: Yes
Resulting Lab: [facility]
[address] [facility]
[place] [address]

CULTURE

Penicillium species (Abnormal)

Paecilomyces species (Abnormal)

Cladosporium species (Abnormal)

The genus species identification occurred by mass spectrometry and its
performance characteristics were determined by [facility]. It has not been cleared or approved by the FDA.
The laboratory is regulated under CLIA as qualified to perform
high-complexity testing. This test is used for clinical purposes. It should
not be regarded as investigational or for research.

STAIN

No yeast or hyphae seen.

null Performing Location [facility] [place] [address] [facility] [address]
--- OUTSIDE RECORDS SUMMARY | 2024-07-16 08:04 | External Medical Summary | Summary of Care ---
Author Name Unknown Organization [facility] Address [address] [place] [address] Phone [phone] Care Team Providers Care Mid Level Clinician Name Role Phone Orlin Castro MD Primary Care Provider + Encounter Details Date Type Department Care Team (Late st Contact Info) Description 04/07/2024 Telephone Pulmonary Medicine, [facility] [address] [facility] [place] [address] Perfecto Contreras MD [address] [facility] [id number] Allergies Active Allergy Reactions Criticality Noted Date Comments Zolpidem Tartrate Psych complications 6 Rosuvastatin 04/05/2020 Elevated lft Hydrochlorothiazide 12/29/2019 brenda Nsaids Other (Please comment) 04/14/2016 Gastric ulcer with anemia documented as of this encounter (statuses as of 05/09/2024) Medications Medication Sig Dispensed Refills Start Date [...] Laryngectomy Tube 15 Each 11 07/29/2021 Active Ipratropium-Albuter ol 0.5-2.5 (3) MG/3ML Inhalation Solution (Duoneb)Indications :COPD, group B, by GOLD 2017 classification ([facility]) Inhale via nebulizer 3 mL every 6 hours as needed for Wheezing. 360 mL 1 12/30/2021 Active Formoterol Fumarate 20 MCG/2ML Inhalation Nebulization Solution 2022 Active Levothyroxine Sodium 200 MCG Oral Tablet [...] MOUTH EVERY DAY 180 Tablet 3 07/07/2023 07/07/19 25 Active Additional Information Patient taking differently: Daily(AM), Reported on 01/05/2024 Ferrous Sulfate 325 (65 Fe) MG Oral Tablet (Feosol) TAKE ONE TABLET THREE TIMES DAILY 270 Tablet 1 07/08/2023 Active Carvedilol 25 MG Oral Tablet (Coreg)Indications: [...] EVENING SNACK 45 Tablet 3 12/31/2023 Active Sodium Chloride 7 % Inhalation Nebulization Solution (Hyper-Allen) Inhale 4 mL via nebulizer 4 times a day as needed for Wheezing or Dyspnea. 360 mL 3 04/04/2024 07/03/20 24 Active Beclomethasone Diprop HFA 40 MCG/ACT Inhalation Aerosol Breath Activated (Qvar RediHaler) Inhale 2 Puffs by mouth in the morning and 2 Puffs before bedtime. 10.6 g 3 04/04/2024 07/05/19 25 Active Spiriva Respimat 2.5 MCG/ACT Inhalation Aerosol Solution (Tiotropium Sulphur Monohydrate) Inhale 2 Puffs by mouth in the morning. 4 g 3 04/04/2024 Active Ventolin HFA 108 (90 Base) MCG/ACT Inhalation Aerosol Solution Inhale 2 Puffs by mouth every 4 hours as needed for Dyspnea or Wheezing. 18 g 3 04/04/2024 07/04/20 24 Active documented as of this encounter (statuses as of 05/09/2024) Active Problems Problem Noted Date Diagnosed Date [...] as of this encounter (statuses as of 05/09/2024) Resolved Problems Problem Noted Date Diagnosed Date [...] as of this encounter (statuses as of 05/09/2024) Immunizations Name Administration Dates Next Due COVID-19 [...] 06/22/2023 Does the household have a re lar source of income? (Household - for ages [...] 18 years and over) Not on file 3 Are you (or your family) lynette eless [...] encounter Miscellaneous Notes * Telephone Encounter - Janeth Del Rosario [...] my end for 04/12 at bronch suite. THX STEPHANIE ----- Message ----- From: Alberto Ramos MD Sent: 04/05/2024 4:55 PM EDT To: Perfecto Contreras MD; Bertha Brower, NIKITA; # I can add it to my [...] an afternoon when you are rounding in [place] on the ,, or . Would one [...] Dr Contreras ----- Message ----- From: Bertha Brower RRT Sent: 04/04/2024 1:20 PM EDT To: Perfecto Contreras MD; # RT is working short-handed at the moment. The 2 days I could spare someone from here to head over there don't work for the [facility] staff. Charline did say Fridays are better for them, but I know Dr. Contreras is typically off on Fridays. There is a scheduled OR morning here at [facility] on 04/20/2024? I will look through the [...] 05/16/2024 10:50 AM EST Office Visit Pharmacy, [facility] [address] [facility] [place] [address] Pharmacist1, [facility] [address] [place] [address] 05/30/2024 8:50 AM EST Office Visit Optometry, [place] [address] [place] [address] Rancho Chapman Jr., OD [address] [place] [address] 06/29/2024 8:00 AM EST Office Visit Orthopaedics [facility] [address] [place] [address] Javon Bunn, 132 [place] [address] 07/04/2024 9:20 AM EST Office Visit General Internal Medicine [facility] [address] [place] [address] [address] [address] Orlin Castro MD [address] [place] [address] [address] 10/03/2024 8:40 AM EDT Office Visit Nephrology, [facility] [address] [place] [address] [address] [address] Galindo Jean MD [address] [facility] [place] [address] 04/04/2025 9:40 AM EDT Office Visit Pulmonary Medicine, [facility] [address] [place] [address] Perfecto Contreras MD [address] [place] [address] Health Maintenance Due Date Last Done Comments [...] 05/31/2023, Additional history exists GFR 07/15/2024 01/13/2024, 04, 08/23/2023, Additional history exists Mammogram 09/13/2024 09/14/2023, 09/02, 09/11/2022, Additional history exists Diabetic Foot Exam 09/29/2024 09/30/2023, 0 08/07/2022, 08/21/2021, Additional history exists CKD HGB USE SMARTSET 17440 01/12/202501/12, 01/13/2024, 08/03/2023, Additional history exists CKD PHOS USE SMARTSET 14247 01/12/202501/02, 08/23/2023, 08/03/2023, Additional history exists Colonoscopy [...] this encounter Medical Devices Implanted Type Area Casino Accountant Device Identifier Shelf Expiration Date Model / Serial / Lot Stent Pancreatic Geenen 5fr - [id number] Implanted:Qty: 1 on 06/17/2010 [place] [facility] [place]/18/2013 [id number] / / [id number] Stent 10fr 7cm - [id number] Implanted:Qty: 1 on 06/17/2010 at [place] [facility] [place] : RADHA [place] 01/15/2013 [id number] / / [id number] Description:pancreas documented as of this encounter Advance [...] Power of Attor tanika? No Care Teams Mid Level Clinician Relationship Specialty Start Date End Date Orlin Castro MD [address] [place] [address] PCP - General Internal Medicine 04/27/19 documented as of this encounter
--- OUTSIDE RECORDS SUMMARY | 2024-07-16 08:04 | External Medical Summary | Summary of Care ---
Author Name Unknown Organization [facility] Address [address] [address] Phone [phone] Care Team Providers Care Grease Packer Name Role Phone Orlin Castro MD Primary Care Provider + Encounter Details Date Type Department Care Team (Late st Contact Info) Description 04/07/2024 Telephone Pulmonary Medicine, [facility] 132 [facility] [place] [address] Prefecto Min MD [facility] [phone] Allergies Active Allergy Reactions Criticality Noted Date Comments Zolpidem Tartrate Psych complications 6 Rosuvastatin 04/05/2020 Elevated lft Hydrochlorothiazide 12/29/2019 brenda Nsaids Other (Please comment) 04/14/2016 Gastric ulcer with anemia documented as of this encounter (statuses as of 05/16/2024) Medications ONETOUCH DELICA LANCETS FINE MISC Use [...] Respimat 2.5 MCG/ACT Inhalation Aerosol Solution (Tiotropium [place] Monohydrate) Inhale 2 Puffs by mouth in [...] as of this encounter (statuses as of 05/16/2024) Active Problems Problem Noted Date Diagnosed Date [...] as of this encounter (statuses as of 05/16/2024) Resolved Problems Problem Noted Date Diagnosed Date [...] history of colon cancer 02/14/2019 Overview (11/01/2009): 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 THX JFD ----- Message ----- From: Alberto Ramos MD [...] an afternoon when you are rounding in [place] on the ,, or . Would one [...] head over there don't work for the [facility] staff. Charline did say Fridays are better for them, but I know Dr. Min is typically off on Fridays. There is a scheduled OR morning here at [facility] on 04/20/2024? I will look through the schedule again to see if anything else would work. Thank you. ----- Message ----- From: Perfecto Min MD Sent: 04/04/2024 12:02 PM EDT To: Bertha Brower, WIRE HANGER; KEVIN Newton 68 yr old female Recurrent [...] Description 05/30/2024 8:50 AM EST [facility] [address] [place] [address] Rancho Chapman Jr., OD 16 [place] [address] 06/29/2024 8:00 AM EST Office Visit Orth[facility] [address] [place] [address] Javon Bunn DO [address] [place] [address] 07/04/2024 9:20 AM EST Office Visit General Internal Medicine [facility] [address] [place] [address] Orlin Castro MD [address] [place] [address] 10/03/2024 8:10 AM EDT Office Visit Pharmacy, [facility] [address] [place] [address] Pharmacist1, [facility] [address] [facility] [place] [address] 10/03/2024 8:40 AM EDT Office Visit Nephrology, [address] 200 [place] [address] Galindo Jean MD 200 [place] [address] 04/04/2025 9:40 AM EDT Office Visit Pulmonary Medicine, [facility] [address] [place] [address] Perfecto Min MD [address] [place] [address] Scheduled Procedures Name Priority Associated Diagnoses Date/Ti [...] Additional history exists CKD HGB USE SMARTSET 11289 01/12/202501/12, 01/13/2024, 08/03/2023, Additional history exists CKD PHOS USE SMARTSET 48832 01/12/202501/02, 08/23/2023, 08/03/2023, Additional history exists Colonoscopy [...] this encounter Medical Devices Implanted Type Area Posting Clerk Device Identifier Shelf Expiration Date Model / Serial / Lot Stent Pancreatic Aldonen 5fr - [id number] Implanted:Qty: 1 on 06/17/2010 [place] [facility] [facility] [place]/18/2013 [id number] / / [id number] Stent 10fr 7cm - [id number] Implanted:Qty: 1 on 06/17/2010 [place] [facility] [place] RADHA [place] 01/15/2013 [id number] / / [id number] Description:pancreas documented as of this encounter Advance [...] Power of Attor tanika? No Care Teams Grease Packer Relationship Specialty Start Date End Date Orlin Castro MD [address] [place] [address] PCP - General Internal Medicine 04/27/19 documented as of this encounter
--- OUTSIDE RECORDS SUMMARY | 2024-07-16 08:04 | External Medical Summary | Summary of Care ---
Author Name Unknown Organization [facility] Address [address] [facility] [place] [address] Phone [phone] Care Team Providers Care Drag Out Worker Name Role Phone Orlin Castro MD Primary Care Provider + Reason for Visit * Reason Comments Diabetes Follow-Up Dosage Adjustment In Person (Anticoag Cl inic) Encounter Details Date Type Department Care Team (Late st Contact Info) Description 05/16/2024 10:50 AM EST Office Visit Pharmacy, [place] [address] [facility] [place] [address] Pharmacist1, [facility] 200 [facility] [place] [address] Type 2 diabetes mellitus with hemoglobin A1c goal of less than 7.0% ([facility])* Allergies Active Allergy Reactions Criticality Noted Date [...] Respimat 2.5 MCG/ACT Inhalation Aerosol Solution (Tiotropium [place] Monohydrate) Inhale 2 Puffs by mouth in [...] 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 Answer Date of Assessment Author No 11/29/2020 9:57 PM EDT Laura Sandoval A, INSTRUCTOR [employer] * Are you blind or do you have serious difficulty seeing, even when wearing glasses? Answer Date of Assessment Author No 11/29/2020 9:57 PM EDT Laura Sandoval, INSTRUCTOR [employer] * Do you have serious difficulty walking or climbing stairs? (5 years old or older) Answer Date of Assessment Author No 11/29/2020 9:57 PM EDT Laura Sandoval, INSTRUCTOR [employer] * Do you have difficulty dressing or bathing? (5 years old or older) Answer Date of Assessment Author No 11/29/2020 9:57 PM EDT Gee Sandovalisen Manuel, INSTRUCTOR [employer] * Because of a physical, mental, or emotional condition, do you have difficulty doing errands alone such as visiting a doctors office or shopping? (15 years old or older) Answer Date of Assessment Author No 11/29/2020 9:57 PM EDT Gee Sandovalisen Manuel, INSTRUCTOR [employer] documented as of this encounter Mental Status * Because of a physical, mental, or emotional condition, do you have serious difficulty concentrating, remembering, or making decisions? (5 years old or older) Answer Entry Date Author No 11/29/2020 9:57 PM EDT Laura Sandoval, INSTRUCTOR [employer] documented in this encounter Progress Notes * Maximo Lion RPh - 05/16/2024 10:42 AM EST Medication Therapy Disease Management [facility] - [...] Pre am Pre Lunch Pre pm HS -Mar 138 83 171 180 186 257 177 146 176 225 196 171 186 232 188 169 171 191 209 147 161 171 134 126 169 233 203 117 174 205 220 179 120 230 176 168 151 188 159 163 170 156 141 113 101 147 131 118 222 176 157 143 1-Apr 198 130 147 129 167 175 147 139 169 150 149 110 189 163 171 151 111 109 127 136 106 159 116 109 157 147 135 116 187 151 205 181 161 150 136 118 116 127 104 131 127 180 149 104 190 170 159 147 140 172 168 157 163 131 140 129 118 176 153 119 131 137 159 107 153 131 156 117 168 129 111 158 139 141 106 136 110 118 159 147 121 113 141 109 118 171 157 116 113 150 136 118 159 127 104 116 131 151 136 109 164 146 131 151 146 130 118 107 107 163 146 118 162 131 121 107 137 176 151 127 109 111 136 147 1-Nov 137 118 111 96 151 136 118 91 155 110 117 90 139 127 106 74 154 106 136 119 157 161 129 96 118 169 147 119 120 157 148 96 132 161 130 102 117 96 132 121 107 154 169 118 104 Pre am Pre Lunch Pre pm HS Average 146 155 147 128 Hi 222 257 220 181 Lo 101 83 104 74 Range 121 174 116 107 Hypoglycemia: Does your blood sugar go below 70 mg/dL? No, although she was symptomatic when BG was 74 before bedtime last week. Hyperglycemia symptoms present: polydipsia Goal <7 Recent Labs Units 05/16/24 1051 12/31/23 0927 09/30/23 0913 HEMOGLOBIN A1C POCT - [facility] % 7.7* 8.3* 7.3* Recent Labs Units 01/13/24 0904 10/13/23 0906 08/23/23 0945 ESTIMATED GLOMERULAR FILTRATION RATE - [facility] mL/min 61 46* 74 CREATININE - [facility] mg/dL 1.0 1.3* 0.9 HYPERTENSION: Patient on ACEi/ARB: yes, Losartan 100mg daily BP Readings from Last 3 Encounters: 05/03/24 134/76 04/27/24 143/83 04/04/24 110/68 Blood pressure at goal: yes HYPERLIPIDEMIA: Recent Labs Units 10/13/23 0906 10/26/22 1228 LDL CHOLESTEROL (CALCULATED) - [facility] mg/dL 80 95 Does patient have clinical ASCVD? No, is patient LDL less than 70mg/dL? No: on Zetia HEALTH MAINTENANCE REVIEW: Health Maintenance Due Topic Date Due *COPD SEVERITY VERIFIED BY PFT Never done Diabetic Eye Exam 01/13/2024 COVID-19 Vaccine ( season) 2024 TSH 03/15/2024 Adult Wellness Visit 04/14/2024 Albumin/Creatinine Ratio 05/05/2024 ASSESSMENT & PLAN: ICD-10-CM 1. Type 2 diabetes mellitus with hemoglobin A1c goal of less than 7.0% (HCC) E11.9 BG Readings - Blood sugars controlled. A1C decreased to 7.7 today!! Medications - Reviewed current regimen, patient is adherent to regimen. Takes Prandin in evening when snacking Diet, Exercise, Lifestyle - No significant lifestyle changes since last visit. Discussed with patient today. Patient is agreeable to SMBG 4 time(s) daily. Patient aware to contact clinic if any hypoglycemia before next visit. MEDICATION CHANGES: no change Diabetic Medications: Metformin ER 500 mg - 1 tablet twice daily Prandin 2mg before breakfast and supper Prandin 1mg 1/2 tab with evening snack (when eating) HEALTH MAINTENANCE INTERVENTIONS: Labs: Ordered & Scheduled: Urine Microalbumin Immunizations: Up to Date Foot Exam: Up to Date Eye Exam: needs completed Annual Wellness Visit: needs scheduled FOLLOW UP: Return to clinic in 4 months 10/03/2024 I spent a total of 30-39 minutes (exact time 34 mins) on the date of service in preparation, delivery, and documentation of the care provided to Mallory Soto excluding any time spent in the performance of separately billed services. Maximo Burch [facility] Clinical Pharmacist - Sheet Metal Worker Medication Therapy Management Clinic 05/16/2024, 10:42 AM documented in this encounter Plan of Treatment Upcoming Encounters Date Type Department Care Team (Late st Contact Info) Description 05/30/2024 8:50 AM EST Office Visit Optometry, [place] [address] [place] [address] Rancho Chapman Jr., MAGGY [address] [place] [address] 06/29/2024 8:00 AM EST Office Visit Orthopaedics [facility] 132 [facility] [place] [address] Javon Bunn DO 132 [place] [address] 07/04/2024 9:20 AM EST Office Visit General Internal Medicine [facility] 200 [facility] [place] [address] Orlin Castro MD [address] [facility] [place], [place] [address] 10/03/2024 8:10 AM EDT Office Visit Pharmacy, [facility] [address] [facility] [place] [address] Pharmacist1, [facility] 200 [facility] [place] [address] 10/03/2024 8:40 AM EDT Office Visit Nephrology, [facility] 200 [facility] [place], [place] [address] Galindo Jean MD [address] [facility] [place], [place] [address] 04/04/2025 9:40 AM EDT Office Visit Pulmonary Medicine, [facility] 132 [facility] [place] [address] Perfecto Contreras MD [address] [place] [address] Scheduled Procedures Name Priority Associated Diagnoses Date/Ti [...] Additional history exists CKD HGB USE SMARTSET 63519 01/12/202501/12, 01/13/2024, 08/03/2023, Additional history exists CKD PHOS USE SMARTSET 73037 01/12/202501/02, 08/23/2023, 08/03/2023, Additional history exists Colonoscopy [...] this encounter Medical Devices Implanted Type Area Aviation Ordnance Officer Device Identifier Shelf Expiration Date Model / Serial / Lot Stent Pancreatic Geenen 5fr - [id number] Implanted:Qty: 1 on 06/17/2010 at [place] [facility] [place] 03/18/2013 [id number] / / [id number] Stent 10fr 7cm - [id number] Implanted:Qty: 1 on 06/17/2010 at [place] [facility] [place] : RADHA [place] 01/15/2013 [id number] / / [id number] Description:pancreas documented as of this encounter Procedures Procedure Name Priority Date/Time Associated Diagnosis Comments HEMOGLOBIN A1C, POINT OF CARE HANNA 05/16/2024 10:51 AM EST documented in this encounter Results * (ABNORMAL) HEMOGLOBIN A1C, POINT OF CARE (05/16/2024 10:51 AM EST) Hemoglobin A1c 7.7(H) 4.0 - 5.6 % 05/16/2024 10:58 AM EST [facility] 56-02 Blood 05/16/2024 10:5 1 AM EST 05/16/2024 10:58 AM EST [facility] Pharmacist1 LAB POINT OF C ARE TEST DOCKED DEVICE UNSOLICITED RESULTS Final Result [facility] [address] [place], [place] [id number] documented in this encounter Visit Diagnoses Diagnosis Type 2 diabetes mellitus with hemoglobin A1c goal of less than 7.0% (HCC)- Primary documented in this encounter Advance Directives * [...] Power of Attor tanika? No Care Teams Drag Out Worker Relationship Specialty Start Date End Date Orlin Castro MD 200 [place] [address] PCP - General Internal Medicine 04/27/19 documented as of this encounter
--- OUTSIDE RECORDS SUMMARY | 2024-07-16 08:04 | External Medical Summary | Summary of Care ---
Author Name Unknown Organization [facility] Address [address] [place] [address] Phone [phone] Care Team Providers Care Geological Technician Name Role Phone Orlin Castro MD Primary Care Provider + Reason for Visit * Auth/Cert Specialty Diagnoses / Procedures Referred By Chris leon Referred To Contact Diagnoses Mucus plugging of bronchi Mucus plugging of bronchi [T17.500A] Procedures PRE / POST CARE PRE / POST CARE [facility] [address] [place] [address] Phone: [phone] Or [facility] [address] [place] [address] Referral ID Status Reason Start Date Expiration Date Visits Re quested Visits Authorized [id number] Encounter Details Date Type Department Care Team (Latest Contact Info) Description 05/03/2024 10:43 AM EDT - 05/03/2024 3:32 PM EDT Hospital Encounter OR [facility], Operating Room, Main Hospital - 4th Floor [address] [place] [address] [facility], In And Out Surgery [address] [facility] [place] [id number] GI Bronchoscopy Discharge Disposition: Home - Self Care Allergies Active Allergy Reactions Criticality Noted Date Comments Zolpidem Tartrate Psych complications 6 Rosuvastatin 04/05/2020 Elevated lft Hydrochlorothiazide 12/29/2019 brenda Nsaids Other (Please comment) 04/14/2016 Gastric ulcer with anemia documented as of this encounter (statuses as of 05/04/2024) Medications Medication Sig Dispensed Refills Start Date [...] Laryngectomy Tube 15 Each 11 2 Active Ipratropium-Albute rol 0.5-2.5 (3) MG/3ML Inhalation Solution (Duoneb)Indication s:COPD, group B, by GOLD 2017 classification (HCC) Inhale via nebulizer 3 mL every 6 hours as needed for Wheezing. 360 mL 1 2 Active Formoterol Fumarate 20 MCG/2ML Inhalation Nebulization Solution 3 Active Levothyroxine Sodium 200 MCG Oral [...] DAY 180 Tablet 3 4 07/07/19 25 Active Additional Information Patient taking differently: Daily(AM), Reported on 01/05/2024 Ferrous Sulfate 325 (65 Fe) MG Oral Tablet (Feosol) TAKE ONE TABLET THREE TIMES DAILY 270 Tablet 1 4 Active Carvedilol 25 MG Oral Tablet (Coreg)Indications :HTN, goal below 140/90 TAKE ONE TABLET BY MOUTH 2 TIMES A DAY WITH MORNING AND EVENING MEALS 180 Tablet 3 4 09/07/19 25 Active amLODIPine Besylate 10 MG Oral Tablet (Norvasc)Indicatio ns:Essential hypertension with goal blood pressure less than 140/90 TAKE ONE TABLET BY MOUTH EVERY DAY. 90 Tablet 3 4 09/29/19 25 Active Additional Information Patient taking [...] EVENING SNACK 45 Tablet 3 4 Active Sodium Chloride 7 % Inhalation Nebulization Solution (Hyper-Allen) Inhale 4 mL via nebulizer 4 times a day as needed for Wheezing or Dyspnea. 360 mL 3 4 07/03/20 24 Active Beclomethasone Diprop HFA 40 MCG/ACT Inhalation Aerosol Breath Activated (Qvar RediHaler) Inhale 2 Puffs by mouth in the morning and 2 Puffs before bedtime. 10.6 g 3 4 07/05/19 25 Active Spiriva Respimat 2.5 MCG/ACT Inhalation Aerosol Solution (Tiotropium Meadow Monohydrate) Inhale 2 Puffs by mouth in the morning. 4 g 3 4 Active Ventolin HFA 108 (90 Base) MCG/ACT Inhalation Aerosol Solution Inhale 2 Puffs by mouth every 4 hours as needed for Dyspnea or Wheezing. 18 g 3 4 07/04/20 24 Active OneTouch Verio In Vitro Strip (Glucose Blood)Indications: Type 2 diabetes mellitus with hemoglobin A1c goal of less than 7.0% ([facility]) Use to test blood glucose 4 times daily. 400 Strip 3 4 Active Azithromycin 250 MG Oral Tablet (Zithromax Z-Ke) Please take 500 mg by mouth on day one, followed by 250 mg by mouth for four days. 6 Tablet 4 05/03/20 24 Discontinu ed(Medicat ion List Clean Up) methylPREDNISolone 4 MG Oral Tablet Therapy Pack (Medrol Dosepack) follow package directions 21 Tablet 4 05/03/20 Discontinu ed(Medicat ion List Clean Up) documented as of this encounter (statuses as of 05/04/2024) Active Problems Problem Noted Date Diagnosed Date [...] as of this encounter (statuses as of 05/04/2024) Resolved Problems Problem Noted Date Diagnosed Date [...] as of this encounter (statuses as of 05/04/2024) Immunizations Name Administration Dates Next Due COVID-19 [...] Sign Reading Time Taken Comments Blood Pressure 134/76 05/03/2024 3:21 PM EDT Pulse 76 05/03/2024 3:21 PM EDT Temperature 37.1 C (98.8 F) 05/03/2024 3:21 PM E DT Respiratory Rate 18 05/03/2024 3:21 PM EDT Oxygen Saturation 95% 05/03/2024 3:21 PM EDT Inhaled Oxygen Concentration - - Weight 79.4 kg (175 lb) 05/03/2024 10:59 AM EDT Height 162.6 cm (5' 4") 05/03/2024 10:59 AM EDT Body Mass Index 30.04 05/03/2024 10:59 AM EDT documented in this encounter Functional [...] No 11/29/2020 documented as of this encounter Discharge Summaries * Perfecto Contreras MD - 05/03/2024 2:34 PM EDT Images from the original note were not included. [address] [address] Admission Date: 05/03/2024 Discharge Date: 05/03/2024 DISCHARGE DIAGNOSES: Recurrent mucopurulent bronchitis Thick dry crusted mucosal secretions were noted in distal trachea and bilateral mainstem bronchi. Bronchial washings and right lower lobe bronchioalveolar lavage was completed. No endobronchial lesion was noted. Tracheal stoma tube in adequate position. Patient was seen and examined. Patient is stable for release from Observation to home. Summary of care provided as follows: Patient underwent scheduled bronchoscopy through laryngectomy stoma tube. Thick mucopurulent dry crusted secretions were noted within distal trachea and bilateral mainstem and subsegmental bronchi. Bronchial washing was collected from right lung, and bronchoalveolar lavage was completed from right lower lobe. Patient tolerated the procedure without distress. Plan: Follow cytology culture results Pulmonary clinic follow-up MEDICATIONS: MEDICATION UPDATES AT DISCHARGE CONTINUE taking these medications but follow up with your Primary Care Physician (PCP). INSTRUCTIONS albuterol HFA 108 (90 BASE) MCG/ACT inhaler Inhale 2 Puffs by mouth every 4 hours as needed for Dyspnea or Wheezing. albuterol-ipratropium 2.5-0.5 MG/3ML nebulizer solution Commonly known as: Duoneb Inhale via nebulizer 3 mL every 6 hours as needed for Wheezing. amLODIPine 10 MG Tablet Commonly known as: Norvasc TAKE ONE TABLET BY MOUTH EVERY DAY. Carvedilol 25 MG Tablet Commonly known as: Coreg TAKE ONE TABLET BY MOUTH 2 TIMES A DAY WITH MORNING AND EVENING MEALS cyclobenzaprine 10 MG Tablet Commonly known as: Flexeril TAKE ONE TABLET BY MOUTH AT BEDTIME NEEDED FOR MUSCLE SPASMS. Ezetimibe 10 MG Tablet Commonly known as: Zetia TAKE ONE TABLET BY MOUTH EVERY DAY IN THE MORNING Ferrous Sulfate 325 (65 FE) MG Tablet Commonly known as: Feosol TAKE ONE TABLET THREE TIMES DAILY Formoterol Fumarate 20 MCG/2ML Nebu levothyroxine 200 MCG Tablet Commonly known as: Levoxyl TAKE 1 TABLET BY MOUTH DAILY AT LEAST 30 MINUTES PRIOR TO FIRST MEAL OF THE DAY OR OTHER MEDICATIONS losartan 100 MG Tablet Commonly known as: Cozaar TAKE ONE TABLET BY MOUTH EVERY DAY metFORMIN ER 500 MG Tb24 Commonly known as: Glucophage XR Take 1 Tablet by mouth two times a day. * Misc. Devices [facility] Tracheostomy Care Kit #4601 * Misc. Devices Misc Laryngectomy tube, size 10LGT * Misc. Devices [facility] L[facility]ctomy Tube * Misc. Devices Misc Electrolarynx Medically necessary OneTouch Delica Lancets Fine Misc Use to test blood sugar 4 times daily dx e11.9 OneTouch Verio Flex System w/Device Kit Use as directed. To test blood sugars up to 4 times a day Dx E11.22 OneTouch Verio Strp Generic drug: Glucose Blood Use to test blood glucose 4 times daily. Potassium Chloride ER 10 MEQ Cpcr Take 20 Milliequivalent by mouth in the morning. Qvar RediHaler 40 MCG/ACT inhaler Generic drug: Beclomethasone Diprop HFA Inhale 2 Puffs by mouth in the morning and 2 Puffs before bedtime. * repaGLINide 2 MG Tablet Commonly known as: Prandin Take 1 tablet by mouth in the morning with breakfast and 1 tablet with supper. * repaGLINide 1 MG Tablet Commonly known as: Prandin TAKE ONE-HALF TABLET BY MOUTH EVERY DAY WITH EVENING SNACK RSV PreF3 Vac Recomb Adjuvanted 120 MCG/0.5ML Susr Commonly known as: Arexvy Ask about: Should I take this medication? Inject 0.5 mL into a large muscle once for 1 dose. Sodium Chloride 7 % Nebu Commonly known as: Hyper-Allen Inhale 4 mL via nebulizer 4 times a day as needed for Wheezing or Dyspnea. Spiriva Respimat 2.5 MCG/ACT Generic drug: Tiotropium Meadow Monohydrate Inhale 2 Puffs by mouth in the morning. Vitamin B-12 1000 MCG Tablet Commonly known as: Cyanocobalamin Take 1 Tab by mouth daily. * This list has 6 medication(s) that are the same as other medications prescribed for you. Read thedirections carefully, and ask your doctor or other care provider to review them with you. SCHEDULED FOLLOW-UP: Future Appointments Appt Date/Time Provider Department 05/16/2024 10:50 AM Pharmacist1, [facility], [facility] 05/30/2024 8:50 AM Rancho Chapman Jr., OD Optometry, [place] 06/29/2024 8:00 AM Javon Bunn DO Orthopaedics [facility] 07/04/2024 9:20 AM Orlin Castro MD General Internal Medicine [facility] 10/03/2024 8:40 AM Galindo Jean MD Nephrology, [facility] 04/04/2025 9:40 AM Perfecto Contreras MD Pulmonary Medicine, [facility] PRIMARY CARE PROVIDER: PCP: Orlin Castro MD [address] [facility] [address] [facility] / [place] [address] (office) [phone] (fax) Note: To contact a physician responsible for this patients hospital care, please call [facility] [phone]. 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 Recent history of bronchitis/mucus plugging requiring ER evaluation at [facility], presenting for follow-up pulmonary evaluation. Currently patient describes stable exercise tolerance, current exercise distance more than 2 blocks. Uses phonation device for post laryngectomy status. Since last evaluation, patient describes improved management of secretions with vest therapy and moist gauze coverage for laryngectomy stoma. Compliant with budesonide and albuterol nebulizer therapy. Current bronchodilator therapy includes QVAR ICS inhaler twice daily, Spiriva LAMA once daily, Brovana LABA nebulizer twice daily, hypertonic saline as needed via nebulizer and rescue albuterol inhaler . Role of bronchial washing was discussed to prevent recurrent bronchitis and plugging. Patient is agreeable. Procedure was requested for scheduling. We will continue current bronchodilator therapy. Refills were provided. Chest percussion therapy with VEST device will be continued. Patient was advised to continue using moist saline gauze coverage for laryngectomy stoma to minimize excessive drynessof airway secretions. Pulmonary clinic follow-up in 1 year to reassess symptoms status, review results of recommended diagnostic workup and discuss further management plan. CT chest from 08/2022 was reviewed and compared with 12/2022. Well-preserved lung parenchyma with laryngectomy status. Left lung nodules subpleural 4 mm, And 5 mm, unchanged c/w 08/2022. 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 [employer] Direct In Vitro Strip (Glucose Blood) Use to test blood glucose 4 times daily. 05/03/2024 Beclomethasone Diprop HFA 40 MCG/ACT Inhalation Aerosol Breath Activated (Qvar RediHaler) Inhale 2 Puffs by mouth in the morning and 2 Puffs before bedtime. 05/02/2024 Sodium Chloride 7 % Inhalation Nebulization Solution (Hyper-Allen) Inhale 4 mL via nebulizer 4 times a day as needed for Wheezing or Dyspnea. Past Month Spiriva Respimat 2.5 MCG/ACT Inhalation Aerosol Solution (Tiotropium Meadow Monohydrate) Inhale 2 Puffs by mouth in the morning. 05/02/2024 Ventolin HFA 108 (90 Base) MCG/ACT Inhalation Aerosol Solution Inhale 2 Puffs by mouth every 4 hours as needed for Dyspnea or Wheezing. 05/02/2024 Repaglinide 1 MG Oral Tablet (Prandin) TAKE ONE-HALF TABLET BY MOUTH EVERY DAY WITH EVENING SNACK 05/02/2024 Cyclobenzaprine HCl 10 MG Oral Tablet (Flexeril) TAKE ONE TABLET BY MOUTH AT BEDTIME NEEDED FOR MUSCLE SPASMS. Past Week Ezetimibe 10 MG Oral Tablet (Zetia) TAKE ONE TABLET BY MOUTH EVERY DAY IN THE MORNING 05/03/2024 metFORMIN HCl ER 500 MG Oral Tablet Extended Release 24 Hour (Glucophage XR) Take 1 Tablet by mouthtwo times a day. 05/02/2024 Repaglinide 2 MG Oral Tablet (Prandin) Take 1 tablet by mouth in the morning with breakfast and 1 tablet with supper. 05/03/2024 amLODIPine Besylate 10 MG Oral Tablet (Norvasc) TAKE ONE TABLET BY MOUTH EVERY DAY. Patient taking differently: daily. 05/03/2024 Carvedilol 25 MG Oral Tablet (Coreg) TAKE ONE TABLET BY MOUTH 2 TIMES A DAY WITH MORNING AND EVENING MEALS 05/03/2024 Ferrous Sulfate 325 (65 Fe) MG Oral Tablet (Feosol) TAKE ONE TABLET THREE TIMES DAILY 05/03/2024 Losartan Potassium 100 MG Oral Tablet (Cozaar) TAKE ONE TABLET BY MOUTH EVERY DAY Patient taking differently: daily. 05/03/2024 Potassium Chloride ER 10 MEQ Oral Capsule Extended Release Take 20 Milliequivalent by mouth in the morning. 05/03/2024 Levothyroxine Sodium 200 MCG Oral Tablet (Levoxyl) TAKE 1 TABLET BY MOUTH DAILY AT LEAST 30 MINUTESPRIOR TO FIRST MEAL OF THE DAY OR OTHER MEDICATIONS 05/03/2024 [facility]. Devices Electrolarynx Medically necessary 05/03/2024 Formoterol Fumarate 20 MCG/2ML Inhalation Nebulization Solution Past Month Ipratropium-Albuterol 0.5-2.5 (3) MG/3ML Inhalation Solution (Duoneb) Inhale via nebulizer 3 mL every 6 hours as needed for Wheezing. 05/02/2024 Mis. Devices Laryngectomy tube, size 10LGT 05/03/2024 [facility]. Devices Velcro Trach Ties for Laryngectomy Tube 05/03/2024 [employer] Verio Flex System w/Device Kit Use as directed. To test blood sugars up to 4 times a day Dx E11.22 05/03/2024 Vitamin B-12 1000 MCG Oral Tablet Take 1 Tab by mouth daily. 05/03/2024 Mis. Devices [facility] Tracheostomy Care Kit #4601 05/03/2024 [employer] DELICA LANCETS FINE [facility] Use to test blood sugar 4 times daily dx e11.9 05/03/2024 RSVPreF3 Vac Recomb Adjuvanted 120 MCG/0.5ML Intramuscular Suspension Reconstituted (Arexvy) Inject0.5 mL into a large muscle once for 1 dose. ALLERGIES: Ambien [zolpidem tartrate], Crestor [rosuvastatin], Hctz [hydrochlorothiazide], and Nsaids FAMILY HISTORY: Family History Problem Relation Name Age of Onset Colon cancer Father Colon polyps Father Colon cancer Sister Colon polyps Sister No Known Problems Sister No Known Problems Sister No Known Problems Brother No Known Problems Brother Thyroid Disorder No significant family history SOCIAL HISTORY: Social History Socioeconomic History Marital status: Single Spouse name: Not on file Number of children: Not on file Years of education: Not on file Highest education level: Not on file Occupational History Occupation: [employer] Employer: [employer] Tobacco Use Smoking status: Former Current packs/day: 0.00 Average packs/day: 1 pack/day for 30.0 years (30.0 ttl pk-yrs) Types: Cigarettes Start date: 07/05/1976 Quit date: 07/05/2006 Years since quittin.8 Smokeless tobacco: Never Vaping Use Vaping status: Never Used Substance and Sexual Activity Alcohol use: No Drug use: No Sexual activity: Never Other Topics Concern Not on file Social History Narrative 1 dog in her home. No mold. Social Determinants of Health Financial Resource Strain: Low Risk (06/22/2023) Financial Resource Strain Do you have any trouble paying for your medications, or do you think you might in the future? (Adult - for ages 18 years and over): No Does your family have trouble paying for medicine? (Household - for ages 0-17 years): Not on file Food Insecurity: No Food Insecurity (06/22/2023) Food Insecurity Do you need food for this week? (Adult - for ages 18 years and over): No Are you able to get enough food for your family? (Household - for ages 0-17 years): Not on file Does your family need food this week? (Household - for ages 0-17 years): Not on file Do you always have enough food for your family? (Household - for ages 0-17 years): Not on file Transportation Needs: No Transportation Needs (06/22/2023) Transportation Needs Do you have trouble getting a ride to medical visits or work? (Adult - for ages 18 years and over):Never True Does your family have a hard time getting a ride to doctors visits? (Household - for ages 0-17 years): Not on file Has lack of transportation kept you from medical appointments, meetings, work, or from getting things needed for daily living? Check all that apply. (Adult - for ages 18 years and over): Not on file Do you (or your family) have trouble finding or paying for a ride (transportation)? (Household - for ages 0-17 years): Not on file Social Connections: Socially Integrated (06/22/2023) Social Connections How often do you feel lonely or isolated from those around you? (Adult - for ages 18 years and over): Never Housing Stability: Low Risk (06/22/2023) Housing Stability Do you currently live in a fdc or have no steady place to sleep at night? (Adult - for ages 18 years and over): No Do you think you are at risk of becoming homeless? (Adult - for ages 18 years and over): No Does your family worry about paying for your home or becoming homeless? (Household - for ages 0-17 years): Not on file Are you homeless or worried that you might be in the future? (Adult - for ages 18 years and over): Not on file Are you (or your family) homeless or worried that you might be in the future? (Household - for ages0-17 years): Not on file Review of Systems: No reported history of Hemoptysis, Hematemesis, Melena No reported history of Dysuria, Hematuria, Flank Pain No reported history of chronic headache, seizures No reported history of Fall or trauma No reported history of recent change in weight or appetite PHYSICAL EXAMINATION: BP: 155 mmHg/82 mmHg (05/03/24 1403) Pulse: 64 (05/03/24 1403) Resp: 18 (05/03/24 140) Temp: 35.78 C (05/03/24 1059) Temp Summary: Temp Min: 35.8 C (96.4 F) Max: 35.8 C (96.4 F) SpO2: 93 % (RA) (05/03/24 1403) O2 flow rate: Supplemental O2 Delivery: Room Air, None (05/03/24 1059) Pulse Av.5 Min: 64 Max: 65 No intake or output data in the 24 hours ending 05/03/24 1403 Physical examination shows laryngectomy status with clean stoma, bilateral coarse wheezing, scattered rhonchi, no dullness, regular cardiac rhythm and no evidence of volume overload. LABS: No results in the last 7 days - inpatent use only No results in the last 7 days - inpatent use only No results in the last 7 days - inpatent use only No results in the last 7 days - inpatent use only No results in the last 7 days - inpatent use only Lab Results Component Value Date/Time INR 1.01 06/04/2010 09:37 PM Lab Results Component Value Date/Time PH 7.448 06/17/2010 11:22 AM PO2 178.0 (H) 06/17/2010 11:22 AM PO2 105.0 (H) 06/17/2010 09:32 AM PO2 119.0 (H) 06/17/2010 08:23 AM PCO2 30.0 (L) 06/17/2010 11:22 AM PCO2 33.5 (L) 06/17/2010 09:32 AM PCO2 42.5 06/17/2010 08:23 AM No results found for: "CK", "CKMB", "LACTATE" Lab Results Component Value Date/Time CULTURE LESS THAN 1,000 COLONIES/ML (NO GROWTH) 12/04/2012 12:40 PM CULTURE NEGATIVE, NO MRSA DETECTED BY PCR. 06/17/2010 02:35 PM CULTURE NEGATIVE, NO MRSA DETECTED BY PCR. 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 Recent history of bronchitis/mucus plugging requiring ER evaluation at [facility], presenting for follow-up pulmonary evaluation. Currently patient describes stable exercise tolerance, current exercise distance more than 2 blocks. Uses phonation device for post laryngectomy status. Since last evaluation, patient describes improved management of secretions with vest therapy and moist gauze coverage for laryngectomy stoma. Compliant with budesonide and albuterol nebulizer therapy. Current bronchodilator therapy includes QVAR ICS inhaler twice daily, Spiriva LAMA once daily, Brovana LABA nebulizer twice daily, hypertonic saline as needed via nebulizer and rescue albuterol inhaler . Physical examination shows laryngectomy status with clean stoma, bilateral coarse wheezing, scattered rhonchi, no dullness, regular cardiac rhythm and no evidence of volume overload. Role of bronchial washing was discussed to prevent recurrent bronchitis and plugging. Patient is agreeable. Procedure was requested for scheduling. We will continue current bronchodilator therapy. Refills were provided. Chest percussion therapy with VEST device will be continued. Patient was advised to continue using moist saline gauze coverage for laryngectomy stoma to minimize excessive dryness of airway secretions. Pulmonary clinic follow-up in 1 year to reassess symptoms status, review results of recommended diagnostic workup and discuss further management plan. CT chest from 08/2022 was reviewed and compared with 12/2022. Well-preserved lung parenchyma with laryngectomy status. Left lung nodules subpleural 4 mm, And 5 mm, unchanged c/w 08/2022. CT chest report from 2010 and chest [...] Qvar BID, Spiriva QD, Brovana Nebs BID Requesting periodic bronchial washing for prevention of mucus plugging Plan: BD Rx refills provided Rescue pack ( Z Pack and Medrol Dose pack was provided) FOB for Bronchial Washing - TODAY Repeat CT Chest (Scheduled for 11/2023) Saline irrigation soln ([facility]) C/w chest VEST percussion Rx CT Chest repeat PRN based on sx status Clinic f/u in 1 year I have seen and examined this patient. Case was discussed with the team. Agree with noted clinical findings, treatment plan and orders as mentioned in team note. DISCLAIMER: Source Notes: The document above describes current episode of care provided by the undersigned provider. Customized document templates, and Prior care notes (for the same patient) by the same provider (Dr. Contreras) may be utilized (with updated content) within the current document in order to maintain consistency of recommended individualized diagnostic workup and treatment plan. Typographical errors: This dictation was verbally transcribed via [employer] Dictation system software. Occasional Errors, spelling flaws and omissions are inherent in digital transcriptions. Please contact the undersigned for any clarification/correction in the dictated transcript as needed. documented in this encounter Procedure Notes * Orlin Castro MD - 05/03/2024 1:45 PM EDTAssociated Order(s): BRONCHOSCOPY [facility] Patient Name: Mallory Soto Procedure Date: 05/03/2024 1:45 PM Date of : 1955 Admit Type: Outpatient Note Status: Finalized Date of : 1955 Admit Type: Outpatient Age: 68 Room: Spec Procedure Rm [id number] Gender: Female Note Status: Finalized Procedure: Bronchoscopy Indications: Chronic cough Providers: Perfecto Contreras MD Referring MD: Orlin Castro MD (Referring MD) Medicines: Lidocaine 1% applied to the tracheobronchial tree 5 mL, Fentanyl 50 mcg IV, Diphenhydramine (Benadryl) 25 mg IV, Midazolam 2 mg IV Complications: No immediate complications Procedure: Pre-Anesthesia Assessment: - A History and Physical has been performed. Patient meds and allergies have been reviewed. The risks and benefits of the procedure and the sedation options and risks were discussed with the patient. All questions were answered and informed consent was obtained. Patient identification and proposed procedure were verified prior to the procedure by the physician and the nurse in the pre-procedure area in the procedure room at 13:55 PM. Mental Status Examination: normal. Airway Examination: Laryngectomy status with tube in stoma. Respiratory Examination: Scattered coarse wheezing, adequate air entry bilaterally. No dullness. CV Examination: regular rate and rhythm. ASA Grade Assessment: II - A patient with mild systemic disease. After reviewing the risks and benefits, the patient was deemed in satisfactory condition to undergo the procedure. The anesthesia plan was to use moderate sedation / analgesia (conscious sedation). Immediately prior to administration of medications, the patient was re-assessed for adequacy to receive sedatives. The heart rate, respiratory rate, oxygen saturations, blood pressure, adequacy of pulmonary ventilation, and response to care were monitored throughout the procedure. The physical status of the patient was re-assessed after the procedure. After obtaining informed consent, the [id number] Bronchoscope ([id number]) was introduced through the tracheostomy tube and advanced to the tracheobronchial tree of both lungs. All instruments were visually inspected immediately before and after removal from the patient to ensure they are fully intact. The procedure was accomplished without difficulty. The patient tolerated the procedure well. The patient tolerated the procedure fairly well. Findings & Specimens: The bronchoscope was advanced until wedged at the desired location for bronchoalveolar lavage. BAL was performed in the right lower lobe of the lung and sent for cell count, bacterial culture, viral smears & culture, and fungal & AFB analysis and cytology. 100 mL of fluid were instilled. 50 mL were returned. The return was mucopurulent. Mucous plugs were present in the return fluid. Multiple specimens were obtained and pooled into one specimen, which was sent for analysis. Impression: - Chronic cough - Bronchoalveolar lavage was performed. - Dry crusted tracheobronchial secretions noted within distal trachea and Bilateral mainstem bronchi. Thick mucopurulent plugs were suctioned. - Bronchitic changes were found. Recommendation: - Discharge patient to home (ambulatory). - Discharge patient to home. Perfecto Contreras MD 05/03/2024 2:32:15 PM This report has been signed electronically. documented in this encounter Nursing Notes * Justine Aldana RN - 05/03/2024 3:31 PM EDT [address] [id number] [facility] Discharge Note Name: Mallory Soto Date: 05/03/2024 Time: 3:31 PM Discharge Disposition: Home Responsible adult as escort home: friend Transport Mode: Ambulatory Accompanied by: Benjamin Aldana RN To: Car Belongings with patient: Yes Patient meets criteria to be transferred or discharged. * Nila Carcamo RN - 05/03/2024 2:01 PM EDT Pt to special procedures room from [facility]. Verbalized understanding to procedure and instructions. Dr Contreras present. Consent signed. Pt in NSR on the monitor. 1410 Time out completed. 1414 Bronchoscopy scope inserted without difficulty. 1421 Procedure complete, pt is awake and alert with some coughing. 1438 Pt taken back to [facility] via stretcher alert and oriented with no complaints. * Viviana Hollins RN - 05/03/2024 1:54 PM EDT Time out to be completed in cardiopulmonary just prior to procedure documented in this encounter Miscellaneous Notes * Ancillary Progress Note - Bertha Brower RRT - 05/03/2024 3:28 PM EDT Patient to Special Procedure Room for bronchoscopy with Dr. Contreras. Assisted provider with procedure, specimens collected and sent to the lab. 1% Lidocaine used for numbing. Patient remained on roomair for duration of procedure. * Sedation Note - Perfecto Contreras MD - 05/03/2024 1:50 PM EDT SEDATION NOTE Indication: The patient is a(n) 68 year old female with history of laryngeal cancer and laryngectomy status, presenting for scheduled bronchoscopy regarding recurrent bronchitis and increased tracheobronchial secretions. Location: Bronchoscopy suite Sedating physician: Doctor Contreras Procedure physician: Dr Contreras Procedure(s) Performed: Fiberoptic bronchoscopy through laryngectomy stoma Sedation was accomplished using Versed administered as 2 mg boluses and LR continuous infusion. Anyand all anesthetic medications were delivered under the direct supervision of a provider. Actual level of sedation: Moderate Patient tolerated procedure well. Vitals and oxygen saturations stable throughout. Adverse Outcome(s) during the procedure: None Sedation Start Time: 2 p.m. Sedation End Time: 2:30 p.m. Post Sedation Evaluation: Cardiovascular status: acceptable Level of consciousness: sleepy but arousable Airway patency: patent Distress - NAD Hydration status - well hydrated Nausea/vomiting - not present Pain Evaluation Pain Assessment Flowsheet Row Most Recent Value Pain Assessment Scale [facility] Scale 0-10 Pain Score 0 (no pain) Vital Signs: Temp: 35.8 C (96.4 F) (05/03 1059) BP: 155/104 (05/03 1059) Pulse: 65 (05/03 1059) Resp: 18 (05/03 1059) SpO2: 94 % (05/03 1059) I have personally examined the patient, prescribed the necessary medications as charted, and certify that Mallory Soto is recovered for safe discharge from my face to face care. * Pre-Sedation Assessment - Perfecto Contreras MD - 05/03/2024 1:48 PM EDT PRE-SEDATION ASSESSMENT PRE-SEDATION ASSESSMENT: Bronchoscopy Level of sedation planned: Moderate Patient's allergies reviewed: Yes H&P Review / Interval Note Documentation: I have reviewed the H&P previously performed, examined the patient today, and there are no new findings. Laryngectomy status with clean stoma and recurrent bronchitis Difficulty with sedation / anesthesia: No Sleep apnea: No History of snoring: No Decreased ROM neck flexion/extension: No Tracheal deviation: Laryngectomy status. Loose teeth / dentures / partial: No Dysphagia: No Mallampati Classification: II - soft palate, uvula, fauces visible Chest: Other (See Comments) Heart: Regular Rhythm Adequate Vascular Access: Yes Comments: Scattered coarse wheezing ASA Risk Stratification (Select One): ASA 2 - Mild systemic disease, no functional limitations The patient was identified and the procedure verified: Yes The patient was reevaluated immediately prior to the sedation: 05/03/2024 1:50 PM documented in this encounter Plan of Treatment Upcoming Encounters Date Type Department Care Team (Late st Contact Info) Description 05/16/2024 10:50 AM EST Office Visit Pharmacy, [facility] [address] [place] [address] Pharmacist1, [facility] [address] [facility] [place] [address] 05/30/2024 8:50 AM EST Office Visit Optometry, [place] [address] [place] [address] Rancho Chapman Jr., OD [address] [place] [address] 06/29/2024 8:00 AM EST Office Visit Orthopaedics [facility] [address] [place] [address] Javon Bunn, [address] [place] [address] 07/04/2024 9:20 AM EST Office Visit General Internal Medicine [facility] [address] [facility] [place] [address] Orlin Castro MD [address] [facility] [place] [address] 10/03/2024 8:40 AM EDT Office Visit Nephrology, [facility] [address] [facility] [place], [place] [address] Galindo Jean MD [address] [facility] [place], [place] [address] 04/04/2025 9:40 AM EDT Office Visit Pulmonary Medicine, [facility] [address] [place] [address] Perfecto Contreras MD [address] [address] Pending Results Name Type Priority Associated Diagnoses Date /Time CULTURE, AFB Lab Routine 05/03/2024 2 :53 PM EDT CULTURE,FUNGUS,NON-DERM Lab Routine 1 2:53 PM EDT CULTURE, BRONCHIAL, QUANTITATIVE Lab Routine 05/03/2024 2:53 PM EDT CYTOLOGY Pathology Routine 05/03/2024 2:5 3 PM EDT CULTURE, AFB Lab Routine 05/03/2024 2 :53 PM EDT CULTURE,FUNGUS,NON-DERM Lab Routine 1 2:53 PM EDT CULTURE, BRONCHIAL, QUANTITATIVE Lab Routine 05/03/2024 2:53 PM EDT Scheduled Orders Name Type Priority Associated Diagnoses Orde r Schedule CULTURE, AFB Lab Routine One Time for 1 Occurrences starting 05/03/2024 until 05/03/2024 CULTURE, BRONCHIAL, QUANTITATIVE Lab Routine One Time for 1 Occurrences starting 05/03/2024 until 05/03/2024 CYTOLOGY Pathology Routine One Time for 1 Occurrences starting 05/03/2024 until 05/03/2024, 1 completed CULTURE, AFB Lab Routine One Time for 1 Occurrences starting 05/03/2024 until 05/03/2024 CULTURE, BRONCHIAL, QUANTITATIVE Lab Routine One Time for 1 Occurrences starting 05/03/2024 until 05/03/2024 Health Maintenance Due Date Last Done Comments [...] Depression Screening 06/22/2024 06/22/2023 HbA1c 07/01/2024 12/31/2023, 03/2 02/2024, 05/31/2023, Additional history exists GFR 07/15/2024 01/13/2024, 04/, 08/23/2023, Additional history exists Mammogram 09/13/2024 09/14/2023, 09/02, 09/11/2022, Additional history exists Diabetic Foot Exam 09/29/2024 09/30/2023, 0 08/07/2022, 08/21/2021, Additional history exists CKD HGB USE SMARTSET 61247 01/12/202501/12, 01/13/2024, 08/03/2023, Additional history exists CKD PHOS USE SMARTSET 23875 01/12/202501/02, 08/23/2023, 08/03/2023, Additional history exists Colonoscopy [...] / Lot Stent Pancreatic Geenen 5fr - [id number] Implanted:Qty: 1 on 06/17/2010 [place] [facility] [place] [facility] 03/18/2013 [id number] / / [id number] Stent 10fr 7cm - [id number] Implanted:Qty: 1 on 06/17/2010 at [place] [facility] [place] : RADHA [place] 01/15/2013 [id number] / / [id number] Description:pancreas documented as of this encounter Procedures Procedure Name Priority Date/Time Associated Diagnosis Comments CULTURE,FUNGUS,NON-DE RM Routine 05/03/2024 2:53 PM EDT CULTURE,FUNGUS,NON-DE RM Routine 05/03/2024 2:53 PM EDT BRONCHOSCOPY 05/03/2024 1:45 PM EDT GLUCOSE METER, POINT OF CARE HANNA 05/03/2024 11:13 AM EDT documented in this encounter Results * BRONCHOSCOPY (05/03/2024 1:45 PM EDT) 05/03/2024 1:45 PM EDT Narrative Procedure Note Orlin Castro MD - 05/03/2024 1:45 PM EDT [facility] Patient Name: Mallory Soto Procedure Date: 05/03/2024 1:45 PM Date of : 1955 Admit Type: Outpatient Note Status:Finalized Date of : 1955 Admit Type: Outpatient Age: 68 Room: Spec Procedure [facility] Gender: Female Note Status: Finalized Procedure: Bronchoscopy Indications: Chronic cough Providers: Perfecto Contreras MD Referring MD: Orlin Castro MD (Referring MD) Medicines: Lidocaine 1% applied to the tracheobronchial tree 5mL, Fentanyl 50 mcg IV, Diphenhydramine (Benadryl) 25 mg IV, Midazolam 2 mgIV Complications: No immediate complications Procedure: Pre-Anesthesia Assessment: - A History and Physical has been performed.Patient meds and allergies have been reviewed. The risks and benefits of the procedureand the sedation options and risks were discussed with the patient. All questions wereanswered and informed consent was obtained. Patient identification and proposedprocedure were verified prior to the procedure by the physician and the nurse in thepre-procedure area in the procedure room at 13:55 PM. Mental Status Examination:normal. Airway Examination: Laryngectomy status with tube in stoma. Respiratory Examination:Scattered coarse wheezing, adequate air entry bilaterally. No dullness. CVExamination: regular rate and rhythm. ASA Grade Assessment: II - A patient with mildsystemic disease. After reviewing the risks and benefits, the patient was deemed insatisfactory condition to undergo the procedure. The anesthesia plan was to use moderatesedation / analgesia (conscious sedation). Immediately prior to administration ofmedications, the patient was re-assessed for adequacy to receive sedatives. Theheart rate, respiratory rate, oxygen saturations, blood pressure, adequacy ofpulmonary ventilation, and response to care were monitored throughout the procedure.The physical status of the patient was re-assessed after the procedure. After obtaining informed consent, the [id number] ([id number]) was introduced through the tracheostomy tube and advanced to thetracheobronchial tree of both lungs. All instruments were visually inspectedimmediately before and after removal from the patient to ensure they are fully intact.The procedure was accomplished without difficulty. The patient tolerated theprocedure well. The patient tolerated the procedure fairly well. Findings & Specimens: The bronchoscope was advanced until wedged at the desired locationfor bronchoalveolar lavage. BAL was performed in the right lower lobe of the lung and sent for cellcount, bacterial culture, viral smears & culture, and fungal & AFB analysis and cytology. 100 mL of fluidwere instilled. 50 mL were returned. The return was mucopurulent. Mucous plugs were present in the returnfluid. Multiple specimens were obtained and pooled into one specimen, which was sent for analysis. Impression: - Chronic cough - Bronchoalveolar lavage was performed. - Dry crusted tracheobronchial secretions notedwithin distal trachea and Bilateral mainstem bronchi. Thick mucopurulent plugs weresuctioned. - Bronchitic changes were found. Recommendation: - Discharge patient to home (ambulatory). - Discharge patient to home. Perfecto Contreras MD 05/03/2024 2:32:15 PM This report has been signed electronically. Orlin Castro MD GASTRO UPPER * (ABNORMAL) GLUCOSE METER, POINT OF CARE (05/03/2024 11:13 AM EDT) GLUCOSE - POCT 143(H) 70 - 120 mg/dL 05/03/2024 11:16 AM EDT [facility] Blood Whole blood specimen / Unknown 05/03/2024 11:13 AM EDT 05/03/2024 11:16 AM EDT In And Out Surgery [facility] POINT OF CARE TEST DOCKED DEVICE UNSOLICITED RESULTS [facility] [address] [place] [address] documented in this encounter Visit Diagnoses Diagnosis COPD, group B, by GOLD 2017 classification (HCC)- Primary documented in this encounter Administered Medications Inactive Administered Medications - up to 3 most recent administrations Medication Order MAR Action Action Date Dose Rate Site diphenhydrAMINE (Benadryl) inj 25 mg 25 mg, IV Push, ONCE, On Wed05/03/24 at 1430, For 1 dose, To be administered prior to bronchoscopy procedure. Given 05/03/2024 2:11 PM EDT 25 mg fentaNYL (PF) inj ONCE PRN NARRATOR, Starting on Wed05/03/24 at 1415, Until Wed05/03/24 at 1416 Given 05/03/2024 2:16 PM EDT 25 mcg Given 05/03/2024 2:15 PM EDT 25 mcg isolyte-S pH 7.4 infusion Intravenous, at 10 mL/hr, Plasma-LYTE 148, isolyte-S, and isolyte-S pH 7.4 are considered equivalent - including for MAR barcode scanning., CONTINUOUS, Starting on Wed05/03/24 at 1145, Until Wed05/03/24 at 1933 New Bag 05/03/2024 11:16 AM EDT 10 mL/hr midazolam (Versed) 2 MG/2ML inj ONCE PRN NARRATOR, Starting on Wed05/03/24 at 1410, Until Wed05/03/24 at 1414 Given 05/03/2024 2:14 PM EDT 1 mg Given 05/03/2024 2:10 PM EDT 1 mg documented in this encounter Active and Recently Administered Medications Times are shown in EDT. Scheduled Medication Order 05/01/2024 05/02/2024 05/03/2024 diphenhydrAMINE (Benadryl) inj 25 mg (COMPLETED) 25 mg, IV Push, ONCE, On Wed05/03/24 at 1430, For 1 dose, To be administered prior to bronchoscopy procedure. 1411 (Given - Provid er: Nila Carcamo RN) Continuous Medication Order 05/01/2024 05/02/2024 05/03/2024 isolyte-S pH 7.4 infusion Intravenous, at 10 mL/hr, Plasma-LYTE 148, isolyte-S, and isolyte-S pH 7.4 are considered equivalent - including for MAR barcode scanning., CONTINUOUS, Starting on Wed05/03/24 at 1145, Until Wed05/03/24 at 1933 1116 (New Bag - Prov ider: Kory Sandoval RN) PRN Medication Order 05/01/2024 05/02/2024 05/03/2024 fentaNYL (PF) inj (COMPLETED) ONCE PRN NARRATOR, Starting on Wed05/03/24 at 1415, Until Wed05/03/24 at 1416 1415 (Given - Provid er: Nila Carcamo RN)1416 (Given - Provider: Nila Carcamo RN) midazolam (Versed) 2 MG/2ML inj (COMPLETED) ONCE PRN NARRATOR, Starting on Wed05/03/24 at 1410, Until Wed05/03/24 at 1414 1410 (Given - Provid er: Nila Carcamo RN)1414 (Given - Provider: Nila Carcamo RN) documented in this encounter Advance Directives * [...] Power of Attor tanika? No Care Teams Geological Technician Relationship Specialty Start Date End Date Orlin Castro MD [address] [place] [address] PCP - General Internal Medicine 04/27/19 documented as of this encounter
--- OUTSIDE RECORDS SUMMARY | 2024-07-16 08:04 | External Medical Summary ---
Author Name Unknown Address Unknown Organization K09:[facility] [place] [address] Laboratory Report Ordering Provider Test Date Status MTM,PHARMACIST1 05/16/2024 10:51:03 Final Observation Date Value Abnormality Reference (Units ) Status HbA1C 05/16/2024 10:51:03 7.7 Above high normal 4. 0-5.6 (%) Final Performing Location [facility] [place] [address]
--- OUTSIDE RECORDS SUMMARY | 2024-07-16 08:04 | External Medical Summary ---
Author Name Unknown Address Unknown Organization K01:[facility] - [address] [place] [address] Laboratory Report Ordering Provider Test Date Status MECHELLE POOLE 05/03/2024 14:53:15 Final Observation Date Value Abnormality Reference (Units ) Status Bacteria identified in Specimen by Culture 05/03/2024 14:53:15 No acid fast bacilli isolated Final Microscopic observation [Identifier] in Specimen by Rhodamine-auramine fluorochrome stain 05/03/2024 14:53:15 No acid fast bacilli seen Final Test: Culture, AFB
Speci men Source: Lung, Right lower lobe
Specimen Type: Bronchial Washing
Specimen Date: 05/03/2024 145
Result Date: 07/11/2024 0947
Result Status: Final result
Resulting Lab: [facility]
[address]
[place] [address]

CULTURE

No acid fast bacilli isolated

STAIN

No acid fast bacilli seen

null Performing Location [facility] - [address] [place] [address]
--- OUTSIDE RECORDS SUMMARY | 2024-07-16 08:04 | External Medical Summary | Summary of Care ---
Author Name Unknown Organization [facility] Address [address] [facility] [place] [address] Phone [phone] Care Team Providers Care Inventory Worker Name Role Phone Orlin Castro MD Primary Care Provider + Reason for Visit * Reason Onset Date Comments Test Results 04/07/2024 Encounter Details Date Type Department Care Team (Late st Contact Info) Description 04/07/2024 Telephone Pulmonary Medicine, [facility] [address] [facility] [place] [id number] Perfecto Min MD [address] [facility] [place] [id number] Test Results Allergies Active Allergy Reactions Criticality Noted Date Comments Zolpidem Tartrate Psych complications 6 Rosuvastatin 04/05/2020 Elevated lft Hydrochlorothiazide 12/29/2019 brenda Nsaids Other (Please comment) 04/14/2016 Gastric ulcer with anemia documented as of this encounter (statuses as of 05/17/2024) Medications ONETOUCH DELICA LANCETS FINE MISC Use [...] Respimat 2.5 MCG/ACT Inhalation Aerosol Solution (Tiotropium Atkinson Monohydrate) Inhale 2 Puffs by mouth in [...] as of this encounter (statuses as of 05/17/2024) Active Problems Problem Noted Date Diagnosed Date [...] as of this encounter (statuses as of 05/17/2024) Resolved Problems Problem Noted Date Diagnosed Date [...] cancer 02/14/2019 Overview (11/01/2009): [place]. 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 (5 years old or older) Answer Date of Assessment Author No 11/29/2020 9:57 PM EDT Laura Sandoval REVENUE COORDINATOR * Do you have difficulty dressing or bathing? (5 years old or older) Answer Date of Assessment Author No 11/29/2020 9:57 PM EDT Laura Sandoval REVENUE COORDINATOR * Because of a physical, mental, [...] 8:31 AM EST Pt aware via my [employer] message * Addendum Note - Perfecto Min [...] my end for 04/12 at bronch suite. [facility] ----- Message ----- From: Alberto Ramos MD [...] an afternoon when you are rounding in [place] on the ,, or . Would one [...] over there don't work for the [facility] staff. Charline did say Fridays are better for them, but I know Dr. Min is typically off on Fridays. There is a scheduled OR morning here at [facility] on 04/20/2024? I will look through [...] 05/30/2024 8:50 AM EST Office Visit Optometry, [place] [address] [place] [address] Rancho Chapman Jr., OD [address] [place] [address] 06/29/2024 8:00 AM EST Office Visit Orthopaedics [facility] [address] [facility] [place] [address] Javon Bunn DO [address] [facility] [place] [address] 07/04/2024 9:20 AM EST Office Visit General Internal Medicine [facility] [address] [place] [address] Orlin Castro MD [address] [facility] [place] [address] 10/03/2024 8:10 AM EDT Office Visit Pharmacy, [facility] [address] [facility] [place], [place] [address] Pharmacist1, [facility] [address] [facility] [place] [address] 10/03/2024 8:40 AM EDT Office Visit Nephrology, [facility] [address] [facility] [place], [place] [address] Galindo Jean MD [address] [facility] [place], [place] [address] 04/04/2025 9:40 AM EDT Office Visit Pulmonary Medicine, [facility] [address] [facility] [place] [address] Perfecto Min MD [address] [facility] [place] [address] Scheduled Procedures Name Priority Associated Diagnoses Date/Ti [...] Additional history exists CKD HGB USE SMARTSET 99290 01/12/202501/12, 01/13/2024, 08/03/2023, Additional history exists CKD PHOS USE SMARTSET 13587 01/12/202501/02, 08/23/2023, 08/03/2023, Additional history exists Colonoscopy [...] this encounter Medical Devices Implanted Type Area Front Maker Device Identifier Shelf Expiration Date Model / Serial / Lot Stent Pancreatic Geenen 5fr - [id number] Implanted:Qty: 1 on 06/17/2010 [place] [facility] [place] [employer] 03/18/2013 [id number] / / [id number] Stent 10fr 7cm - [id number] Implanted:Qty: 1 on 06/17/2010 at [place] [facility] [place] [facility] : RADHA [place] 01/15/2013 [id number] / / [id number] Description:pancreas documented as of this encounter Advance [...] Power of Attor tanika? No Care Teams Inventory Worker Relationship Specialty Start Date End Date Orlin Castro MD [address] [facility] [place] [address] PCP - General Internal Medicine 04/27/19 documented as of this encounter
--- OUTSIDE RECORDS SUMMARY | 2024-07-16 08:05 | External Medical Summary | Summary of Care ---
Author Name Unknown Organization [facility] Address [address] [place] [address] Phone [phone] Care Team Providers Care Cellars Supervisor Name Role Phone Orlin Castro MD Primary Care Provider + Reason for Visit * Reason Onset Date Comments [facility]: Screening 04/26/2024 Encounter Details Date Type Department Care Team (Late st Contact Info) Description 04/26/2024 Telephone [facility], [place] [address] [place] [address] Ana Kellogg LPN [address] [place] [address] [facility]: Screening Allergies Active Allergy Reactions Criticality Noted Date Comments Zolpidem Tartrate Psych complications 6 Rosuvastatin 04/05/2020 Elevated lft Hydrochlorothiazide 12/29/2019 brenda Nsaids Other (Please comment) 04/14/2016 Gastric ulcer with anemia documented as of this encounter (statuses as of 04/26/2024) Medications Medication Sig Dispensed Refills Start Date [...] group B, by GOLD 2017 classification ([facility]) Inhale via nebulizer 3 [...] A1c goal of less than 7.0% ([facility]) Take 1 Tablet by [...] Respimat 2.5 MCG/ACT Inhalation Aerosol Solution (Tiotropium [place] Monohydrate) Inhale 2 Puffs by mouth in the morning. 4 g 3 04/04/2024 Active Azithromycin 250 MG Oral Tablet (Zithromax Z-Ke) Please take 500 mg by mouth on day one, followed by 250 mg by mouth for four days. 6 Tablet 04/04/2024 Active methylPREDNISolone 4 MG Oral Tablet Therapy Pack (Medrol Dosepack) follow package directions 21 Tablet 04/04/2024 Active Ventolin HFA 108 (90 Base) MCG/ACT Inhalation Aerosol Solution Inhale 2 Puffs by mouth every 4 hours as needed for Dyspnea or Wheezing. 18 g 3 04/04/2024 07/04/20 24 Active OneTouch Verio In Vitro Strip (Glucose Blood)Indications:T ype 2 diabetes mellitus with hemoglobin A1c goal of less than 7.0% ([facility]) Use to test blood glucose 4 times daily. 400 Strip 3 04/20/2024 Active documented as of this encounter (statuses as of 04/26/2024) Active Problems Problem Noted Date Diagnosed Date [...] as of this encounter (statuses as of 04/26/2024) Resolved Problems Problem Noted Date Diagnosed Date [...] as of this encounter (statuses as of 04/26/2024) Immunizations Name Administration Dates Next Due COVID-19 [...] No 06/22/2023 Does the household have a [facility] source of income? (Household - for [...] encounter Miscellaneous Notes * Telephone Encounter - Ana Kellogg LPN - 04/26/2024 3:57 PM EDT Mallory Soto was referred as a potential candidate for enrollment for [facility]. A review of this chart was completed and: Mallory meets criteria for [facility]. Jump to Initiation Referring care team was notified via : [employer] Ana Kellogg LPN [facility] 04/26/2024,3:57 PM documented in this encounter Plan of Treatment Upcoming Encounters Date Type Department Care Team (Latest Contact Info) Description 04/27/2024 10:07 AM EDT Hospital Encounter OR [facility], Operating Room, [facility] [address] [place] [phone] Raymond Campbell MD [address] [place] [address] 04/27/2024 10:07 AM EDT - 04/27/2024 10:48 AM EDT Surgery OR [facility], Operating Room, [facility] [address] [place] [address] Raymond Campbell MD [address] [place] [address] COLONOSCOPY FLEXIBLE PROXIMAL DIAGNOSTIC 05/03/2024 1:00 PM EDT Hospital Encounter OR [facility], Operating Room, [facility] Floor [address] [place] [address] [facility], In And Out Surgery [address] [place] [address] 05/03/2024 1:00 PM EDT PulmDiagnostic Pulmonary Function Lab, [facility] [address] [place] [address] 05/03/2024 1:00 PM EDT - 05/03/2024 1:30 PM EDT Surgery OR [facility], Operating Room, [facility] - 4th Floor [address] [place] [address] [facility], In And Out Surgery [address] [place] [address] PRE / POST CARE 05/30/2024 8:50 AM EST Office Visit Optometry, [place] [address] [place] [address] Rancho Chapman Jr., OD [address] [place] [address] 06/29/2024 8:00 AM EST Office Visit Orthopaedics [facility] [address] [facility] [place] [address] Javon Bunn, [address] [place] [address] 07/04/2024 9:20 AM EST Office Visit General Internal Medicine [facility] [address] [place] [address] Orlin Castro MD [address] [facility] [place] [address] 10/03/2024 8:40 AM EDT Office Visit Nephrology, [facility] [address] [place] [address] Galindo Jean MD [address] [facility] [place] [address] 04/04/2025 9:40 AM EDT Office Visit Pulmonary Medicine, [facility] [address] [facility] [place] [address] Perfecto Contreras MD [address] [place] [place] [address] Scheduled Procedures Name Priority Associated Diagnoses Date/Ti me COLONOSCOPY FLEXIBLE PROXIMAL DIAGNOSTIC Family history of colonic polyps 04/27/2024 10:07 AM EDT PRE / POST CARE Mucus plugging of bronchi 05/03/2024 1:00 PM EDT Health Maintenance Due Date Last Done Comments Cologuard 2001 Fecal Occult Blood Test 2001 *COPD SEVERITY VERIFIED BY PFT 08/02/2019 Colonoscopy 12/18/2023 12/17/2022, 12/03, 08/30/2018, Additional history exists Colorectal Cancer Screening 12/18/2023 Diabetic Eye Exam 01/13/2024 01/12/2023, , 01/12/2023, Additional history exists COVID-19 Vaccine ( season) 2024 04/07/2023, 07/07/2022, 02/15/2021, Additional history exists Influenza Vaccine (FLU shot) [...] Additional history exists CKD HGB USE SMARTSET 66774 01/12/202501/12, 01/13/2024, 08/03/2023, Additional history exists CKD PHOS USE SMARTSET 97808 01/12/202501/02, 08/23/2023, 08/03/2023, Additional history exists O2 ASSESSMENT COMPLETED IN PAST YEAR FOR COPD 04/04/2025 04/04/2024 Sigmoidoscopy 04/29/2026 04/29/2021, 10/15/2020 DXA Scan 05/12/2026 [...] this encounter Medical Devices Implanted Type Area Joiner Device Identifier Shelf Expiration Date Model / Serial / Lot Stent Pancreatic Geenen 5fr - [id number] Implanted:Qty: 1 on 06/17/2010 at OR [facility] [employer] 03/18/2013 [id number] / / [id number] Stent 10fr 7cm - [id number] Implanted:Qty: 1 on 06/17/2010 at [facility] COOK : RADHA [place] 01/15/2013 [id number] / / [id number] Description:pancreas documented as of this encounter Advance [...] Power of Attor tanika? No Care Teams Cellars Supervisor Relationship Specialty Start Date End Date Orlin Castro MD [address] [place] [address] PCP - General Internal Medicine 04/27/19 documented as of this encounter
--- OUTSIDE RECORDS SUMMARY | 2024-07-16 08:05 | External Medical Summary ---
Author Name Unknown Address Unknown Organization : Laboratory Report Ordering Provider Test Date Status [facility] 05/03/2024 11:13:53 Final Observation Date Value Abnormality Reference (Units ) Status Glucose Point of Care 05/03/2024 11:13:53 143 Above high normal 70-120 (mg/dL) Final Performing Location
--- OUTSIDE RECORDS SUMMARY | 2024-07-16 08:05 | External Medical Summary | Summary of Care ---
Author Name Unknown Organization [facility] Address [address] [facility] [place] [address] Phone [phone] Care Team Providers Care Construction Representative Name Role Phone Orlin Castro MD Primary Care Provider + Reason for Visit * Reason Comments Follow Up COPD Hospital Follow-Up Encounter Details Date Type Department Care Team (Late st Contact Info) Description 04/04/2024 11:20 AM EDT Office Visit Pulmonary Medicine, [facility] [address] [facility] [place] [address] Perfecto Contreras MD [address] [facility] [place] [address] Status post laryngectomy*; Bronchitis, mucopurulent recurrent (HCC) Allergies Active Allergy Reactions Criticality Noted Date Comments Zolpidem Tartrate Psych complications 6 Rosuvastatin 04/05/2020 Elevated lft Hydrochlorothiazide 12/29/2019 brenda Nsaids Other (Please comment) 04/14/2016 Gastric ulcer with anemia documented as of this encounter (statuses as of 04/04/2024) Medications Medication Sig Dispensed Refills Start Date [...] 20 MCG/2ML Inhalation Nebulization Solution 3 Active OneTouch Verio In Vitro Strip (Glucose Blood)Indications: Type 2 diabetes mellitus with hemoglobin A1c goal of less than 7.0% ([facility]) Use to test blood glucose [...] 180 Tablet 3 4 07/06/19 25 Active Additional Information Patient taking [...] Puffs before bedtime. 10.6 g 3 4 07/03/20 24 Active Spiriva Respimat 2.5 MCG/ACT Inhalation Aerosol Solution (Tiotropium Barton Monohydrate) Inhale 2 Puffs by mouth in the morning. 4 g 3 4 Active Azithromycin 250 MG Oral Tablet (Zithromax Z-Ke) Please take 500 mg by mouth on day one, followed by 250 mg by mouth for four days. 6 Tablet 4 Active methylPREDNISolone 4 MG Oral Tablet Therapy Pack (Medrol Dosepack) follow package directions 21 Tablet 4 Active Ventolin HFA 108 (90 Base) MCG/ACT Inhalation Aerosol Solution Inhale 2 Puffs by mouth every 4 hours as needed for Dyspnea or Wheezing. 18 g 3 4 07/03/20 24 Active Sodium Chloride 7 % Inhalation Nebulization Solution (Hyper-Allen) 4 ML VIA NEBULIZER TWICE DAILY FOR RESP. FOR 1 WEEK ONLY USE FOR 1 WEEK 3 04/04/20 24 Discontinu ed(Refill) documented as of this encounter (statuses as of 04/04/2024) Active Problems Problem Noted Date Diagnosed Date [...] as of this encounter (statuses as of 04/04/2024) Resolved Problems Problem Noted Date Diagnosed Date [...] as of this encounter (statuses as of 04/04/2024) Immunizations Name Administration Dates Next Due COVID-19 [...] Sign Reading Time Taken Comments Blood Pressure 110/68 04/04/2024 11:02 AM EDT Pulse 65 04/04/2024 11:02 AM EDT Temperature 35.8 C (96.5 F) 04/04/2024 11:02 AM E DT Respiratory Rate 16 04/04/2024 11:02 AM EDT Oxygen Saturation 97% 04/04/2024 11:02 AM EDT Inhaled Oxygen Concentration - - Weight 79.4 kg (175 lb) 04/04/2024 11:02 AM EDT Height 162.6 cm (5' 4") 04/04/2024 11:02 AM EDT Body Mass Index 30.04 04/04/2024 11:02 AM EDT documented in this encounter Functional [...] Progress Notes * Perfecto Contreras MD - 04/04/2024 11:41 AM EDT 04/04/2024 Pulmonary Medicine, [facility] [address] [facility] [place] [id number] Mallory Soto 1955 female 68 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 2006) and Whipple's procedure. Recent history of bronchitis/mucus plugging requiring ER evaluation at [facility], presenting for follow-up pulmonary evaluation. Currently patient [...] was provided) FOB for Bronchial Washing - GRW Repeat CT Chest (Scheduled for 11/2023) Saline irrigation soln ([facility]) C/w chest VEST percussion Rx CT Chest repeat PRN based on sx status Clinic f/u in 1 year Follow-up: Return in about 1 year (around 04/04/2025). | Check-out note: Left upper lobe nodules, [...] was provided) FOB for Bronchial Washing - G Follow-up: Return in about 1 year (around 04/04/2025). | Check-out note: RW Repeat CT Chest (Scheduled for 11/2023) Saline irrigation soln ([facility]) C/w chest VEST percussion Rx CT Chest repeat PRN based on sx status Clinic f/u in 1 year Perfecto Contreras MD CT CHEST WO CONTRAST: 11/30/2023 COMPARISON: CT [...] Complaint Patient presents with Follow Up COPD Hospital Follow-Up HPI: Nursing Notes: Lanie Uribe LPN 04/04/24 1145 Signed Chief Complaint Patient presents with Follow Up COPD Hospital Follow-Up Interm History/Respiratory Symptoms Cough: clear Hemoptysis: intermittent Sinus Symptoms: no Hospitalizations: 03/13/24 ED Trips: 03/13/24 Triggers: dust,dander,odors Nocturnal: no CPAP/BiPAP/O2: no Travel Screening Question 04/04/2024 10:50 AM EDT - Filed by Patient Do you have any of the following new or worsening symptoms? None of these Have you recently been in contact with someone who was sick? No / Unsure Myc Visit Accident Related Question Question 04/04/2024 10:50 AM EDT - Filed by Patient Is this visit related to an accident? (i.e work, motor vehicle) No Mmrc Cat Question 04/04/2024 11:14 AM EDT - Filed by Patient When do you become breathless? (1) I [...] my condition How soundly do you sleep? (1) How much energy do you have? (1) Total MMRC Score (range: 0 - 4) 1 Total CAT Score (range: 0 - 40) 12 Flu Vaccine Questionnaire Question 04/04/2024 11:15 AM EDT - Filed by Patient Get your flu shot at your upcoming appointment. Please select one of the options below. Yes, I would like my flu shot Copd Rescue Question 04/04/2024 11:18 AM EDT - Filed by Patient Have you used an antibiotic (e.g., azithromycin, doxycycline, augmentin) in the last 12 months because of your breathing or lung problem? Yes, two or more times Have you added or increased the dose of a steroid (e.g., prednisone, solumedrol) in the last 12 months because of your breathing or lung problem? No Did you go to the ED, or were you hospitalized in the last 12 months because of your breathing or lung problem? Yes Objective Filed Vitals: 04/04/24 1102 BP: 110/68 Pulse: 65 Resp: 16 Temp: 35.8 C (96.5 F) TempSrc: Tympanic SpO2: 97% Weight: 79.4 kg (175 lb) Height: 1.626 m (5' 4") Exam: [...] is normal. Tests reviewed with the patient: CT CHEST WO CONTRAST Result Date: 11/30/2023 IMPRESSION 1. Similar bilateral tree-in-bud airspace opacities which may reflect sequela of chronicaspiration. 2. Fissural/pleural based nodules are most consistent with intrapulmonary lymph nodes and appear unchanged. No new or suspicious pulmonary nodule is seen. Available Radiologic data was reviewed by me in PACS. The images were shown to the patient and findings were discussed with the patient. HOME MEDICATIONS: Azithromycin 250 MG Oral Tablet (Zithromax Z-Ke) Beclomethasone Diprop HFA 40 MCG/ACT Inhalation Aerosol Breath Activated (Qvar RediHaler) methylPREDNISolone 4 MG Oral Tablet Therapy Pack (Medrol Dosepack) Sodium Chloride 7 % Inhalation Nebulization Solution (Hyper-Allen) Spiriva Respimat 2.5 MCG/ACT Inhalation Aerosol Solution (Tiotropium Barton Monohydrate) Ventolin HFA 108 (90 Base) MCG/ACT Inhalation Aerosol Solution Repaglinide 1 MG Oral Tablet (Prandin) Cyclobenzaprine [...] ER 10 MEQ Oral Capsule Extended Release Levothyroxine Sodium 200 MCG Oral Tablet (Levoxyl) Misc. Devices OneTouch Verio In Vitro Strip (Glucose Blood) Formoterol Fumarate 20 MCG/2ML Inhalation Nebulization Solution [...] (HCC) 01/26/2021 Family history of colon cancer [place]. FAP---lincoln grewal Family history of familial adenomatous [...] Dr Allen & Dr ESCOBEDO at ENDOSCOPY [facility] ANESTH, UPPER GI ENDOSCOPIC PROCS 08/18/2010 ANESTHESIA FOR UPPER GI ENDOSCOPIC PROCEDURES (ERCP OR UPPER GI) performed by ALICIA MATHEWS at ENDOSCOPY [facility] BREAST BIOPSY Left Benign BREAST BIOPSY Left Benign BREAST BIOPSY Left Benign COLONOSCOPY, DIAGNOSTIC (RECTUM) 09/10/2011 COLONOSCOPY FLEXIBLE PROXIMAL DIAGNOSTIC performed by ALICIA MATHEWS at ENDOSCOPY [facility] COLONOSCOPY, DIAGNOSTIC (RECTUM) 01/13/2012 COLONOSCOPY FLEXIBLE PROXIMAL DIAGNOSTIC performed by Alicia Mathews DO at ENDOSCOPY [facility] COLONOSCOPY, DIAGNOSTIC (RECTUM) 07/21/2012 COLONOSCOPY FLEXIBLE PROXIMAL DIAGNOSTIC performed by Alicia Mathews DO at ENDOSCOPY [facility] COLONOSCOPY, DIAGNOSTIC (RECTUM) 01/13/2013 COLONOSCOPY FLEXIBLE PROXIMAL DIAGNOSTIC performed by Alicia Mathews DO at ENDOSCOPY [facility] COLONOSCOPY, DIAGNOSTIC (RECTUM) 01/19/2014 COLONOSCOPY FLEXIBLE PROXIMAL DIAGNOSTIC performed by Alicia Mathews DO at ENDOSCOPY [facility] COLONOSCOPY, DIAGNOSTIC (RECTUM) N/A 09/27/2014 COLONOSCOPY FLEXIBLE PROXIMAL DIAGNOSTIC performed by Alicia Mathews DO at ENDOSCOPY [facility] COLONOSCOPY, DIAGNOSTIC (RECTUM) N/A 03/15/2015 COLONOSCOPY FLEXIBLE PROXIMAL DIAGNOSTIC performed by Alicia Mathews DO at [facility] COLONOSCOPY, DIAGNOSTIC (RECTUM) N/A 06/13/2015 COLONOSCOPY FLEXIBLE PROXIMAL DIAGNOSTIC performed by Alicia Mathews DO at [facility] COLONOSCOPY, DIAGNOSTIC (RECTUM) 04/08/2016 normal/inpt [facility] COLONOSCOPY, DIAGNOSTIC (RECTUM) 07/02/2017 COLONOSCOPY FLEXIBLE PROXIMAL DIAGNOSTIC performed by Alicia Mathews DO at ENDOSCOPY [facility] COLONOSCOPY, DIAGNOSTIC (RECTUM) N/A 08/30/2018 COLONOSCOPY FLEXIBLE PROXIMAL DIAGNOSTIC performed by Alicia Mathews DO at ENDOSCOPY [facility] COLONOSCOPY, DIAGNOSTIC (RECTUM) 12/03/2021 benign adenomatous polyps, repeat 1 yr / [facility] COLONOSCOPY, DIAGNOSTIC (RECTUM) 12/17/2022 adenomatous polyp, repeat 1 yr / [facility] EGD, FLEXIBLE, DIAGNOSTIC 09/10/2011 UPPER GI ENDOSCOPY DIAGNOSTIC performed by ALICIA MATHEWS at ENDOSCOPY [facility] EGD, FLEXIBLE, DIAGNOSTIC 07/21/2012 UPPER GI ENDOSCOPY DIAGNOSTIC performed by Alicia Mathews DO at ENDOSCOPY [facility] EGD, FLEXIBLE, DIAGNOSTIC N/A 05/14/2016 ESOPHAGOGASTRODUODENOSCOPY (EGD), FLEXIBLE, TRANSORAL, DIAGNOSTIC performed by Alicia Mathews DO at ENDOSCOPY [facility] EGD, FLEXIBLE, DIAGNOSTIC 04/08/2016 anastamotic ulcer/inpt [facility] EGD, FLEXIBLE, DIAGNOSTIC N/A 07/02/2017 ESOPHAGOGASTRODUODENOSCOPY (EGD), FLEXIBLE, TRANSORAL, DIAGNOSTIC performed by Alicia Mathews DO at ENDOSCOPY [facility] EGD, FLEXIBLE, DIAGNOSTIC N/A 08/30/2018 ESOPHAGOGASTRODUODENOSCOPY (EGD), FLEXIBLE, TRANSORAL, DIAGNOSTIC performed by Alicia Mathews DO at ENDOSCOPY [facility] EGD, FLEXIBLE, DIAGNOSTIC 12/03/2021 normal, repeat 1 yr / [facility] EGD, FLEXIBLE, DIAGNOSTIC 12/17/2022 normal, repeat 1 yr / [facility] EGD, W/ENDOSCOPIC US 08/11/2012 UPPER GI ENDOSCOPY ENDOSCOPIC ULTRASOUND performed by Garcia Casey MD at ENDOSCOPY [facility] EGD, W/ENDOSCOPIC US 11/04/2012 UPPER GI ENDOSCOPY ENDOSCOPIC ULTRASOUND performed by Garcia Casey MD at ENDOSCOPY [facility] EGD, W/ENDOSCOPIC US N/A 05/08/2021 ESOPHAGOGASTRODUODENOSCOPY (EGD), FLEXIBLE, TRANSORAL, ENDOSCOPIC ULTRASOUND performed by Jane Gutierrez MD at ENDOSCOPY [facility] ERCP, DIAGNOSTIC, SPECIMEN COLLECTION 09/14/2012 ENDOSCOPIC RETROGRADE CHOLANGIOPANCREATOGRAPHY DIAGNOSTIC performed by Garcia Casey MD at ENDOSCOPY [facility] ERCP, DIAGNOSTIC, SPECIMEN COLLECTION 11/04/2012 ENDOSCOPIC RETROGRADE CHOLANGIOPANCREATOGRAPHY DIAGNOSTIC performed by Garcia Casey MD at ENDOSCOPY [facility] MAINE FLEX SIGMOID DIAGNOSITIC N/A 09/18/2019 SIGMOIDOSCOPY FLEXIBLE DIAGNOSTIC performed by Alicia Mathews DO at ENDOSCOPY [facility] MUSCLE/FASCIA DEBRIDEMENT, FIRST 20 CM2 N/A 11/29/2020 DEBRIDEMENT SKIN SUBCUTANEOUS TISSUE AND MUSCLE performed by Howard Montes De Oca DO at OR [facility] OTHER 2006 tracheostomy & laryngectomy REMOVAL OF COLON/ILEOSTOMY 1976 x3 REMOVAL OF THYROID GLAND 2006 Thyroidectomy REMOVE PANCREAS, PARTIAL ([place]) 06/17/2010 PANCREATECTOMY PROXIMAL WITH TOTAL DUODENECTOMY, Dr CIFUENTES REMOVE PANCREAS, PARTIAL ([place]) 12/02/2012 12/02/2012 PANCREATECTOMY PROXIMAL WITH SUBTOTAL DUODENECTOMY performed by Julio C Cifuentes MD at [facility] REPAIR INITIAL INCISIONAL OR VENTRAL HERNIA; REDUCIBLE 12/15/2021 done at [facility] by Dr Aayush Estrella REPAIR WINDPIPE OPENING, COMPLEX 06/02/2021 TRACHEOSTOMA REVISION WITH FLAP performed by Howard Montes De Oca DO at [facility] REPAIR WINDPIPE OPENING, SIMPLE N/A 08/07/2015 TRACHEOSTOMA REVISION SIMPLE performed by Howrad Montes De Oca DO at OR [facility] REPAIR WINDPIPE OPENING, SIMPLE Bilateral 11/29/2020 TRACHEOSTOMA REVISION SIMPLE performed by Howard Montes De Oca DO at OR [facility] SIGMOIDOSCOPY, DIAGNOSTIC N/A 10/15/2020 SIGMOIDOSCOPY FLEXIBLE DIAGNOSTIC performed by Alicia Mathews DO at ENDOSCOPY [facility] SIGMOIDOSCOPY, DIAGNOSTIC N/A 04/29/2021 SIGMOIDOSCOPY FLEXIBLE DIAGNOSTIC performed by Monae Batista DO at ENDOSCOPY [facility] US GUIDED BREAST BIOPSY RIGHT Right Benign Social History Socioeconomic History Marital status: Single Occupational History Occupation: [employer] Employer: [employer] [id number] Tobacco Use Smoking status: Former Current packs/day: 0.00 Average packs/day: 1 pack/day for 30.0 years (30.0 ttl pk-yrs) Types: Cigarettes Start date: 07/05/1976 Quit date: 07/05/2006 Years since quittin.7 Smokeless tobacco: Never Vaping Use Vaping status: [...] Stability Do you currently live in a long-term or have no steady place to sleep [...] in this encounter Nursing Notes * Lanie Uribe LPN - 04/04/2024 11:13 AM EDT Chief Complaint Patient presents with Follow Up COPD Hospital Follow-Up Interm History/Respiratory Symptoms Cough: clear Hemoptysis: intermittent Sinus Symptoms: no Hospitalizations: 03/13/24 ED Trips: 03/13/24 Triggers: dust,dander,odors Nocturnal: no CPAP/BiPAP/O2: no Travel Screening Question 04/04/2024 10:50 AM EDT - Filed by Patient Do you have any of the following new or worsening symptoms? None of these Have you recently been in contact with someone who was sick? No / Unsure Myc Visit Accident Related Question Question 04/04/2024 10:50 AM EDT - Filed by Patient Is this visit related to an accident? (i.e work, motor vehicle) No Mmrc Cat Question 04/04/2024 11:14 AM EDT - Filed by Patient When do you become breathless? (1) I [...] my condition How soundly do you sleep? (1) How much energy do you have? (1) Total MMRC Score (range: 0 - 4) 1 Total CAT Score (range: 0 - 40) 12 Flu Vaccine Questionnaire Question 04/04/2024 11:15 AM EDT - Filed by Patient Get your flu shot at your upcoming appointment. Please select one of the options below. Yes, I would like my flu shot Copd Rescue Question 04/04/2024 11:18 AM EDT - Filed by Patient Have you used an antibiotic (e.g., azithromycin, doxycycline, augmentin) in the last 12 months because of your breathing or lung problem? Yes, two or more times Have you added or increased the dose of a steroid (e.g., prednisone, solumedrol) in the last 12 months because of your breathing or lung problem? No Did you go to the ED, or were you hospitalized in the last 12 months because of your breathing or lung problem? Yes documented in this encounter Plan of Treatment Upcoming Encounters Date Type Department Care Team (Latest Contact Info) Description 04/24/2024 2:10 PM EDT Office Visit Pharmacy, [facility] [place] [address] [facility] [place] [address] [address], [facility] [address] [facility] [place] [address] 04/24/2024 2:40 PM EDT Office Visit General Internal Medicine [facility] [place] [address] [facility] [place] [address] Orlin Castro MD [address] [facility] [place] [address] 04/27/2024 10:55 AM EDT Hospital Encounter OR [facility], Operating Room, [facility] - 4th Floor [address] [place] [phone] Raymond Campbell MD [address] [place] [address] 04/27/2024 10:55 AM EDT - 04/27/2024 11:36 AM EDT Surgery OR [facility], Operating Room, [facility] Floor [address] [place] [address] Raymond Campbell MD [address] [facility] [address] COLONOSCOPY FLEXIBLE PROXIMAL DIAGNOSTIC 05/30/2024 8:50 AM EST Office Visit Optometry, [place] [address] [place] [address] [address] [place] [address] 06/29/2024 8:00 AM EST Office Visit Orthopaedics [facility] [address] [place] [address] Javon Bunn DO [address] [facility] [place] [address] 07/04/2024 9:20 AM EST Office Visit General Internal Medicine [facility] [place] [address] [place] [address] Orlin Castro MD [address] [place] [address] 10/03/2024 8:40 AM EDT Office Visit Nephrology, [facility] [address] [place] [address] Galindo Jean MD [address] [place] [address] 04/04/2025 9:40 AM EDT Office Visit Pulmonary Medicine, [facility] [address] [place] [address] Perfecto Contreras MD [address] [place] [address] Scheduled Orders Name Type Priority Associated Diagnoses Orde r Schedule BRONCHOSCOPY, DIAGNOSTIC W/ LAVAGE Procedures Routine Status post laryngectomy Bronchitis, mucopurulent recurrent (HCC) Ordered: 04/04/2024 Scheduled Procedures Name Priority Associated Diagnoses Date/Ti me COLONOSCOPY FLEXIBLE PROXIMAL DIAGNOSTIC Family history of colonic polyps 04/27/2024 10:55 AM EDT Health Maintenance Due Date Last [...] Depression Screening 06/22/2024 06/22/2023 HbA1c 07/01/2024 12/31/2023, 032 02/2024, 05/31/2023, Additional history exists GFR 07/15/2024 01/13/2024, 04, 08/23/2023, Additional history exists Mammogram 09/13/2024 09/14/2023, 09/02, 09/11/2022, Additional history exists Diabetic Foot Exam 09/29/2024 09/30/2023, 0 08/07/2022, 08/21/2021, Additional history exists CKD HGB USE SMARTSET 89590 01/12/202501/12, 01/13/2024, 08/03/2023, Additional history exists CKD PHOS USE SMARTSET 74225 01/12/202501/02, 08/23/2023, 08/03/2023, Additional history exists O2 [...] this encounter Medical Devices Implanted Type Area Reel System Operator Device Identifier Shelf Expiration Date Model / Serial / Lot Stent Pancreatic Geenen 5fr - [id number] Implanted:Qty: 1 on 06/17/2010 at OR [facility] [employer] 03/18/2013 [id number] / / [id number] Stent 10fr 7cm - [id number] Implanted:Qty: 1 on 06/17/2010 at OR [facility] NAN : RADHA [place] 01/15/2013 [id number] / / [id number] Description:pancreas documented as of this encounter Visit Diagnoses Diagnosis Status post laryngectomy- Primary Other postprocedural status Bronchitis, mucopurulent recurrent (HCC) Mucopurulent chronic bronchitis Family history of colonic polyps documented in [...] Power of Attor tanika? No Care Teams Construction Representative Relationship Specialty Start Date End Date Orlin Castro MD [address] [place] [address] PCP - General Internal Medicine 04/27/19 documented as of this encounter
--- OUTSIDE RECORDS SUMMARY | 2024-07-16 08:05 | External Medical Summary ---
Author Name Unknown Address Unknown Organization [id number]:[facility] [address] Laboratory Report Ordering Provider Test Date Status MECHELLE POOLE 05/03/2024 14:53:15 Final Observation Date Value Abnormality Reference (Units ) Status Bacteria identified in Specimen by Culture 05/03/2024 14:53:15 [id number]^STAPHY LOCOCCUS AUREUS Abnormal Final >100,000 colonies/mL Staphyl ococcus aureus Bacteria identified in Specimen by Culture 05/03/2024 14:53:15 [id number]^CORYNEBACTERIUM STRIATUM Abnormal Final 10,000 to 100,000 colonies/m L Corynebacterium striatum
Antimicrobial susceptibility testing is not routinely performed on isolates of Corynebacterium striatum, which are susceptible to vancomycin, but can be resistant to other antimicrobials. Contact the microbiology laboratory if additional testing is required.
The genus species identification occurred by mass spectrometry and its performance characteristics were determined by [employer]. It has not been cleared or approved by the FDA.
The laboratory is regulated under CLIA as qualified to perform high-complexity testing. This test is used for clinical purposes. It should not be regarded as investigational or for research. Gram Stain 05/03/2024 14:53:15 Many Polymorphonuclear leukoc ytes Abnormal Final Gram Stain 05/03/2024 14:53:15 Many Gram positive cocci Abno rmal Final Gram Stain 05/03/2024 14:53:15 Rare Gram positive bacilli Ab normal Final Performing Location LABORATORY [place] [address] [facility] [address] Ordering Provider Test Date Status MECHELLE POOLE 05/03/2024 14:53:15 Final Observation Date Value Abnormality Reference (Units ) Status Clindamycin 05/03/2024 14:53:15 Resistant Final Erythromycin susceptibility 05/03/2024 14:53:15 Resistant Final Oxacillinsusceptibility 05/03/2024 14:53:15 0.5 Susceptible Final Tetracyclinesusceptibility 05/03/2024 14:53:15 <=1 Susceptible Final TMP-SMZ susceptibility 05/03/2024 14:53:15 <=10 Susceptible Final Vancomycinsusceptibility 05/03/2024 14:53:15 <=0.5 Susceptible Final Test: Culture, Bronchial, Qu antitative
Specimen Source: Lung, Right middle lobe
Specimen Type: Bronchoalveolar Lavage (BAL)
Specimen Date: 05/03/20241452
Result Date: 05/06/20241455
Result Status: Final result
Abnormal: Yes
Resulting Lab: [facility]
[address] [place] [address]

CULTURE

>100,000 colonies/mL Staphylococcus aureus (Abnormal)

10,000 to 100,000 colonies/mL Corynebacterium striatum (Abnormal)

Antimicrobial susceptibility testing is not routinely performed on isolates
of Corynebacterium striatum, which are susceptible to vancomycin, but can
be resistant to other antimicrobials. Contact the microbiology laboratory
if additional testing is required.
The genus species identification occurred by mass spectrometry and its
performance characteristics were determined by [employer]
[facility]. It has not been cleared or approved by the FDA.
The laboratory is regulated under CLIA as qualified to perform
high-complexity testing. This test is used for clinical purposes. It should
not be regarded as investigational or for research.

STAIN

Many Polymorphonuclear leukocytes

Many Gram positive cocci

Rare Gram positive bacilli

SUSCEPTIBILITY

Staphylococcus
aureus
METHOD MICROBROTH
DILUTIONS

CLINDAMYCIN -- Resistant
ERYTHROMYCIN -- Resistant
OXACILLIN 0.5 Susceptible
TETRACYCLINE <=1 Susceptible
TRIMETH/SULFAMETHOXAZOLE <=10 Susceptible
VANCOMYCIN <=0.5 Susceptible

null Performing Location LAB[facility]ATORY [facility] - [address] [place] [address]
--- OUTSIDE RECORDS SUMMARY | 2024-07-16 08:05 | External Medical Summary | Summary of Care ---
Author Name Unknown Organization [facility] [address] [place] [address] Phone [phone] Care Team Providers Care Systems Software Engineer Name Role Phone Orlin Castro MD Primary Care Provider + Reason for Visit * Auth/Cert Specialty Diagnoses / Procedures Referred By Chris leon Referred To Contact Diagnoses Family history of colonic polyps Family history of colonic polyps [Z83.719] Procedures COLONOSCOPY, DIAGNOSTIC (RECTUM) COLONOSCOPY FLEXIBLE PROXIMAL DIAGNOSTIC Raymond Campbell MD [address] [place] [address] Or [facility] [address] [facility] [place] [address] Referral ID Status Reason Start Date Expiration Date Visits Re quested Visits Authorized [id number] Encounter Details Date Type Department Care Team (Latest Contact Info) Description 04/27/2024 8:52 AM EDT - 04/27/2024 11:54 AM EDT Hospital Encounter OR [facility], Operating Room, [facility] - 4th Floor [address] [facility] [place] [address] Raymond Campbell MD [address] [place] [address] Various: UGI,GICOLON Discharge Disposition: Home - Self Care Allergies Active Allergy Reactions Criticality Noted Date Comments Zolpidem Tartrate Psych complications 6 Rosuvastatin 04/05/2020 Elevated lft Hydrochlorothiazide 12/29/2019 brenda Nsaids Other (Please comment) 04/14/2016 Gastric ulcer with anemia documented as of this encounter (statuses as of 04/27/2024) Medications Medication Sig Dispensed Refills Start Date End Date Status ONETOUCH ENID FARFAN FINE MISC Use to test blood sugar 4 times daily dx e11.9 400 Each 3 03/09/2019 Active Misc. Devices MISC Tracheostomy Care Kit #4601 1 Each 10/02/2019 Active Vitamin B-12 1000 MCG Oral Tablet Take 1 Tab by mouth daily. 90 Tab 3 03/07/2021 Active TopBlipTouch Verio Flex System w/Device Kit Use as directed. To test blood sugars up to 4 times a day Dx E11.22 1 Kit 04/03/2021 Active Misc. Devices Laryngectomy tube, size 10LGT 3 Each 07/29/2021 Active Misc. Devices Velcro Trach Ties for Laryngectomy Tube 15 Each 11 07/29/2021 Active Ipratropium-Albuter ol 0.5-2.5 (3) MG/3ML Inhalation Solution (Duoneb)Indications :COPD, group B, by GOLD 2017 classification (HCC) [...] EVERY DAY 180 Tablet 3 07/07/2023 07/07/19 Active Additional Information Patient taking differently: Daily(AM), [...] Respimat 2.5 MCG/ACT Inhalation Aerosol Solution (Tiotropium [place] Monohydrate) Inhale 2 Puffs by mouth in the morning. 4 g 3 04/04/2024 Active Azithromycin 250 MG Oral Tablet (Zithromax Z-Ke) Please take 500 mg by mouth on day one, followed by 250 mg by mouth for four days. 6 Tablet 04/04/2024 Active Additional Information Patient not taking.Reported on 04/27/2024 methylPREDNISolone 4 MG Oral Tablet Therapy Pack (Medrol Dosepack) follow package directions 21 Tablet 04/04/2024 Active Additional Information Patient not taking.Reported on 04/27/2024 Ventolin HFA 108 (90 Base) MCG/ACT Inhalation [...] as of this encounter (statuses as of 04/27/2024) Active Problems Problem Noted Date Diagnosed Date [...] as of this encounter (statuses as of 04/27/2024) Resolved Problems Problem Noted Date Diagnosed Date [...] of colon cancer 02/14/2019 Overview: [place]. FAP---carmina, lincoln kyle Dermatitis 07/01/2012 documented as of this encounter (statuses as of 04/27/2024) Immunizations Name Administration Dates Next Due COVID-19 [...] Sign Reading Time Taken Comments Blood Pressure 143/83 04/27/2024 11:43 AM EDT Pulse 60 04/27/2024 11:43 AM EDT Temperature 36.6 C (97.9 F) 04/27/2024 11:43 AM E DT Respiratory Rate 16 04/27/2024 11:43 AM EDT Oxygen Saturation 98% 04/27/2024 11:43 AM EDT Inhaled Oxygen Concentration - - Weight 79.4 kg (175 lb) 04/27/2024 9:04 AM EDT Height 162.6 cm (5' 4") 04/27/2024 9:04 AM EDT Body Mass Index 30.04 04/27/2024 9:04 AM EDT documented in this encounter Functional [...] No 11/29/2020 documented as of this encounter H&P Notes * Raymond Campbell MD - 04/27/2024 9:39 AM EDT Endoscopy Pre-Procedure Assessment Name: Mallory Soto Date: 04/27/2024 Time: 9:39 AM Procedure: Colonoscopy; with Indication(s) of evaluation and management of polyposis syndromes Upper GI Endoscopy; with Indication(s) of familial adenomatous polyposis syndromes Endoscopy Pre-Procedure Assessment: Prior to the procedure, the patient was identified. The patient's history, medications and allergies were reviewed as per the Anesthesia Assessment. The patient is competent. The risks and benefits of the proposed procedure and the planned sedation were discussed with the patient. All questions were answered and informed consent for the procedure was obtained. This patient has undergone a preprocedural evaluation. A determination has been made to proceed with the planned procedure under [facility] [place] procedural guidelines and the [facility] Non-Emergent, Elective Medical Services and Treatment Recommendations (published on 10-10-19). The community and hospital prevalence of COVID-19 has been discussed as well as this patient's specific risks associated with SARS-CoV-19 infection. Based upon the clinical acuity and patient-specific care considerations, this procedure is deemed a Tier II - Intermediate acuity treatment or service with either progression or the threat of progressive disease related to the delay in treatment. Not providing the service has the potential for increasing morbidity or mortality. BP 166/92 | Pulse 63 | Temp 35.9 C (96.6 F) (Tympanic) | Resp 20 | Ht 1.626 m (5' 4") | Wt 79.4kg (175 lb) | SpO2 97% | BMI 30.04 kg/m | BSA 1.89 m Prior to Admission medications Medication Sig Last Dose Discont. Beclomethasone Diprop HFA 40 MCG/ACT Inhalation Aerosol Breath Activated (Qvar RediHaler) Inhale 2 Puffs by mouth in the morning and 2 Puffs before bedtime. 04/26/2024 Spiriva Respimat 2.5 MCG/ACT Inhalation Aerosol Solution (Tiotropium [place] Monohydrate) Inhale 2 Puffs by mouth in the morning. 04/27/2024 Ventolin HFA 108 (90 Base) MCG/ACT Inhalation Aerosol Solution Inhale 2 Puffs by mouth every 4 hours as needed for Dyspnea or Wheezing. 04/26/2024 Repaglinide 1 MG Oral Tablet (Prandin) TAKE ONE-HALF TABLET BY MOUTH EVERY DAY WITH EVENING SNACK 04/26/2024 Cyclobenzaprine HCl 10 MG Oral Tablet (Flexeril) TAKE ONE TABLET BY MOUTH AT BEDTIME NEEDED FOR MUSCLE SPASMS. 04/24/2024 Ezetimibe 10 MG Oral Tablet (Zetia) TAKE ONE TABLET BY MOUTH EVERY DAY IN THE MORNING 04/27/2024 metFORMIN HCl ER 500 MG Oral Tablet Extended Release 24 Hour (Glucophage XR) Take 1 Tablet by mouthtwo times a day. 04/26/2024 Repaglinide 2 MG Oral Tablet (Prandin) Take 1 tablet by mouth in the morning with breakfast and 1 tablet with supper. 04/27/2024 amLODIPine Besylate 10 MG Oral Tablet (Norvasc) TAKE ONE TABLET BY MOUTH EVERY DAY. Patient taking differently: daily. 04/27/2024 Carvedilol 25 MG Oral Tablet (Coreg) TAKE ONE TABLET BY MOUTH 2 TIMES A DAY WITH MORNING AND EVENING MEALS 04/27/2024 Ferrous Sulfate 325 (65 Fe) MG Oral Tablet (Feosol) TAKE ONE TABLET THREE TIMES DAILY 04/27/2024 Losartan Potassium 100 MG Oral Tablet (Cozaar) TAKE ONE TABLET BY MOUTH EVERY DAY Patient taking differently: daily. 04/27/2024 Potassium Chloride ER 10 MEQ Oral Capsule Extended Release Take 20 Milliequivalent by mouth in the morning. 04/27/2024 Levothyroxine Sodium 200 MCG Oral Tablet (Levoxyl) TAKE 1 TABLET BY MOUTH DAILY AT LEAST 30 MINUTESPRIOR TO FIRST MEAL OF THE DAY OR OTHER MEDICATIONS 04/27/2024 Formoterol Fumarate 20 MCG/2ML Inhalation Nebulization Solution 04/27/2024 Ipratropium-Albuterol 0.5-2.5 (3) MG/3ML Inhalation Solution (Duoneb) Inhale via nebulizer 3 mL every 6 hours as needed for Wheezing. 04/27/2024 Vitamin B-12 1000 MCG Oral Tablet Take 1 Tab by mouth daily. 04/27/2024 OneToPhilly Runway Thief Verio In Vitro Strip (Glucose Blood) Use to test blood glucose 4 times daily. Azithromycin 250 MG Oral Tablet (Zithromax Z-Ke) Please take 500 mg by mouth on day one, followed by 250 mg by mouth for four days. Patient not taking: Reported on 04/27/2024 Not Taking methylPREDNISolone 4 MG Oral Tablet Therapy Pack (Medrol Dosepack) follow package directions Patient not taking: Reported on 04/27/2024 Not Taking Sodium Chloride 7 % Inhalation Nebulization Solution (Hyper-Allen) Inhale 4 mL via nebulizer 4 times a day as needed for Wheezing or Dyspnea. RSVPreF3 Vac Recomb Adjuvanted 120 MCG/0.5ML Intramuscular Suspension Reconstituted (Arexvy) Inject0.5 mL into a large muscle once for 1 dose. Misc. Devices Electrolarynx Medically necessary Misc. Devices Laryngectomy tube, size 10LGT Misc. Devices Velcro Trach Ties for Laryngectomy Tube OneTouch Verio Flex System w/Device Kit Use as directed. To test blood sugars up to 4 times a day Dx E11.22 Misc. Devices MISC Tracheostomy Care Kit #4601 ONETOUCH DELICA LANCETS FINE MISC Use to test blood sugar 4 times daily dx e11.9 Review of patient's allergies indicates: Allergen Reactions Ambien [Zolpidem Tartrate] Psych complications Crestor [Rosuvastatin] Elevated lft Hctz [Hydrochlorothiazide] brenda Nsaids Other (Please comment) Gastric ulcer with anemia Physical Exam: Mental Status Examination: alert and oriented. General: nad, calm Airway Examination: normal oropharyngeal airway and neck mobility. CV: no JVD Respiratory Examination: symmetrical excursion Abd:soft/ntd ASA Grade: III - A patient with severe systemic disease. After reviewing the risks and benefits, the patient was deemed in satisfactory condition to undergothe procedure. The anesthesia plan was to use general anesthesia. Raymond Campbell MD 04/27/2024 documented in this encounter Procedure Notes * Orlin Castro MD - 04/27/2024 10:35 AM EDTAssociated Order(s): UPPER GI ENDOSCOPY [facility] Patient Name: Mallory Soto Procedure Date: 04/27/2024 10:35 AM Date of : 1955 Admit Type: Outpatient Note Status: Finalized Date of : 1955 Admit Type: Outpatient Age: 68 Room: OR 2 Gender: Female Note Status: Finalized Procedure: Upper GI endoscopy Indications: Familial Adenomatous Polyposis Providers: Raymond Campbell MD (Doctor) Referring MD: Orlin Castro MD Medicines: Propofol per Anesthesia Complications: No immediate complications. Estimated blood loss: None. Procedure: Pre-Anesthesia Assessment: - - Prior to the procedure, a History and Physical was performed, patient medications, allergies and sensitivities were reviewed. The patient's tolerance of previous anesthesia was reviewed. See [facility] for further details. - The risks, benefits, and alternatives of the procedure including the sedation options and risks were discussed with the patient. All questions were answered and informed consent was obtained. - Patient identification and proposed procedure were verified prior to the procedure by the physician and the nurse. The procedure was verified in the procedure room. - See [facility] for documentation of the pre-procedure assessment including ASA status. - After I obtained informed consent, the scope was carefully and meticulously passed under direct vision only when the lumen was definitively identified. CO2 insufflation was utilized throughout the entire procedure exclusively. After obtaining informed consent, the endoscope was passed under direct vision. All instruments were visually inspected immediately before and after removal from the patient to ensure they are fully intact. Throughout the procedure, the patient's blood pressure, pulse, and oxygen saturations were monitored continuously.The upper GI endoscopy was accomplished without difficulty. The patient tolerated the procedure well. The GIF-Q190 Endoscope ([id number]) was introduced through the mouth, and advanced to the jejunum. Findings & Specimens: The examined esophagus was normal. Evidence of a classic Whipple was found in the gastric body. This was characterized by healthy appearing mucosa. The examined jejunum was normal. Impression: - Normal esophagus. - A classic Whipple was found, characterized by healthy appearing mucosa. - Normal examined jejunum. - No specimens collected. Recommendation: - Discharge patient to home (with escort). - Return to referring physician as previously scheduled. - Continue present medications. - Repeat upper endoscopy in 1 year for surveillance. Raymond Campbell MD 04/27/2024 11:14:02 AM This report has been signed electronically. * Orlin Castro MD - 04/27/2024 10:33 AM EDTAssociated Order(s): COLONOSCOPY [facility] Patient Name: Mallory Soto Procedure Date: 04/27/2024 10:33 AM Date of : 1955 Admit Type: Outpatient Note Status: Finalized Date of : 1955 Admit Type: Outpatient Age: 68 Room: OR 2 Gender: Female Note Status: Finalized Procedure: Colonoscopy Indications: Personal history of familial adenomatous polyposis Providers: Raymond Campbell MD (Doctor) Referring MD: Orlin Castro MD Medicines: Propofol per Anesthesia Complications: No immediate complications. Estimated blood loss: None. Procedure: Pre-Anesthesia Assessment: - - Prior to the procedure, a History and Physical was performed, patient medications, allergies and sensitivities were reviewed. The patient's tolerance of previous anesthesia was reviewed. See [facility] for further details. - The risks, benefits, and alternatives of the procedure including the sedation options and risks were discussed with the patient. All questions were answered and informed consent was obtained. - Patient identification and proposed procedure were verified prior to the procedure by the physician and the nurse. The procedure was verified in the procedure room. - See [facility] for documentation of the pre-procedure assessment including ASA status. - After I obtained informed consent, the scope was carefully and meticulously passed under direct vision only when the lumen was definitively identified. CO2 insufflation was utilized throughout the entire procedure exclusively. After I obtained informed consent, the scope was passed under direct vision. All instruments were visually inspected immediately before and after removal from the patient to ensure they are fully intact. Throughout the procedure, the patient's blood pressure, pulse, and oxygen saturations were monitored continuously.The colonoscopy was performed without difficulty. The patient tolerated the procedure well. The quality of the bowel preparation was good. The GIF-Q190 Endoscope ([id number]) was introduced through the anus and advanced to the ileocolonic anastomosis. Findings & Specimens: There was evidence of a prior ileal pouch-anal anastomosis in the distal rectum. This was patent and was characterized by healthy appearing mucosa. The ileoanal pouch contained multiple sessile, non-bleeding polyps. The polyps were 1 to 4 mm in diameter. The polyp was removed with a jumbo cold forceps. The polyp was removed with a cold snare. Resection and retrieval were complete. The pathology specimen was placed into Bottle Number 1. Proximal to the pouch appreared normal and without abnormality. Impression: - Patent ileal pouch-anal anastomosis, characterized by healthy appearing mucosa. - Multiple polyps in the ileoanal pouch, removed with a jumbo cold forceps and removed with a cold snare. Resected and retrieved. Recommendation: - Discharge patient to home (with escort). - Repeat colonoscopy in 1 year for surveillance based on pathology results. - Return to referring physician as previously scheduled. - Patient has a contact number available for emergencies. The signs and symptoms of potential delayed complications were discussed with the patient. Return to normal activities tomorrow. Written discharge instructions were provided to the patient. Raymond Campbell MD 04/27/2024 11:17:35 AM This report has been signed electronically. documented in this encounter Nursing Notes * Renae Day RN - 04/27/2024 11:10 AM EDT EGD and colonoscopy completed in [facility] OR. Sedated by GLOBAL ENGINEERING MANAGER. See anesthesia record for VS and medications given. Pt tolerated procedure well with minimal gagging. Abd soft. Airway patent. Pt to recoveryon L side with HOB elevated. Report to recovery nurse. Specimen verified with Bedside cleaning done by Grace Fontaine RN. documented in this encounter Plan of Treatment Upcoming Encounters Date Type Department Care Team (Late st Contact Info) Description 05/03/2024 1:00 PM EDT Hospital Encounter OR [facility], Operating Room, [facility] - 4th Floor [address] [place] [address] [facility], In And Out Surgery [address] [place] [address] 05/03/2024 1:00 PM EDT PulmDiagnostic Pulmonary Function Lab, [address] [place] [address] 05/03/2024 1:00 PM EDT - 05/03/2024 1:30 PM EDT Surgery OR [facility], Operating Room, [facility] - 4th Floor [address] [place] [address] [facility], In And Out Surgery [address] [place] [address] PRE / POST CARE 05/30/2024 8:50 AM EST Office Visit Optometry, [place] [address] [place] [address] Ari Staley, [place], OD [address] [place] [address] 06/29/2024 8:00 AM EST Office Visit Orthopaedics [facility] [address] [facility] [place] [address] Javon Bunn DO [address] [facility] [place] [address] 07/04/2024 9:20 AM EST Office Visit General Internal Medicine [facility] [address] [place] [address] Orlin Castro MD [address] [place] [address] 10/03/2024 8:40 AM EDT Office Visit Nephrology, [facility] [address] [place] [address] Galindo Jean MD [address] [place] [address] 04/04/2025 9:40 AM EDT Office Visit Pulmonary Medicine, [facility] [address] [facility] [place] [address] Perfecto Contreras MD [address] [place] [address] Pending Results Name Type Priority Associated Diagnoses Date /Time SURGICAL PATHOLOGY Pathology Routine 2023 11:10 AM EDT Scheduled Orders Name Type Priority Associated Diagnoses Orde r Schedule SURGICAL PATHOLOGY Pathology Routine One Ti me for 1 Occurrences starting 04/27/2024 until 04/27/2024, 1 completed Scheduled Procedures Name Priority Associated Diagnoses Date/Ti me COLONOSCOPY FLEXIBLE PROXIMAL DIAGNOSTIC Family history of colonic polyps 04/27/2024 10:32 AM EDT PRE / POST CARE Mucus plugging of bronchi 05/03/2024 1:00 PM EDT Health Maintenance Due Date Last Done Comments Colbenuard 2001 Fecal Occult Blood Test 2001 *COPD [...] Additional history exists CKD HGB USE SMARTSET 27732 01/12/202501/12, 01/13/2024, 08/03/2023, Additional history exists CKD PHOS USE SMARTSET 14637 01/12/202501/02, 08/23/2023, 08/03/2023, Additional history exists Colonoscopy 04/27/2025 04/27/2024, 12/03, 12/17/2022, Additional history exists Colorectal Cancer Screening [...] RETIRED - COLONOSCOPY-ANNUAL AGES 18-100 Discontinued 04/27/2024, 12/17/2022, 12/17/2022, Additional history exists HPV (Gardasil) Vaccine Aged Out No lo nger eligible based on patient's age to complete this topic MENINGOCOCCAL (MENACTRA/MENVEO) Aged Out No longer eligible based on patient's age to complete this topic documented as of this encounter Medical Devices Implanted Type Area Assistant Surveyor Device Identifier Shelf Expiration Date Model / Serial / Lot Stent Pancreatic Geenen 5fr - [id number] Implanted:Qty: 1 on 06/17/2010 [place] [facility] [employer] 03/18/2013 [id number] / / [id number] Stent 10fr 7cm - [id number] Implanted:Qty: 1 on 06/17/2010 [place] [facility] [place] : RADHA [place] 01/15/2013 [id number] / / [id number] Description:pancreas documented as of this encounter Procedures Procedure Name Priority Date/Time Associated Diagnosis Comments UPPER GI ENDOSCOPY 04/27/2024 10 :35 AM EDT COLONOSCOPY 04/27/2024 10:33 AM EDT GLUCOSE METER, POINT OF CARE HANNA 04/27/2024 9:30 AM EDT documented in this encounter Results * UPPER GI ENDOSCOPY (04/27/2024 10:35 AM EDT) 04/27/2024 10:3 5 AM EDT Narrative Procedure Note Orlin Castro MD - 04/27/2024 10:35 AM EDT [facility] Patient Name: Mallory Soto Procedure Date: 04/27/2024 10:35 AM Date of : 1955 Admit Type: Outpatient Note Status:Finalized Date of : 1955 Admit Type: Outpatient Age: 68 Room: OR 2 Gender: Female Note Status: Finalized Procedure: Upper GI endoscopy Indications: Familial Adenomatous Polyposis Providers: Raymond Campbell MD (Doctor) Referring MD: Orlin Castro MD Medicines: Propofol per Anesthesia Complications: No immediate complications. Estimated blood loss:None. Procedure: Pre-Anesthesia Assessment: - - Prior to the procedure, a History and Physicalwas performed, patient medications, allergies and sensitivities were reviewed. Thepatient's tolerance of previous anesthesia was reviewed. See [facility] for furtherdetails. - The risks, benefits, and alternatives of theprocedure including the sedation options and risks were discussed with the patient.All questions were answered and informed consent was obtained. - Patient identification and proposed procedurewere verified prior to the procedure by the physician and the nurse. The procedure wasverified in the procedure room. - See [facility] for documentation of the pre-procedureassessment including ASA status. - After I obtained informed consent, the scope wascarefully and meticulously passed under direct vision only when the lumen wasdefinitively identified. CO2 insufflation was utilized throughout the entire procedureexclusively. After obtaining informed consent, the endoscope waspassed under direct vision. All instruments were visually inspected immediatelybefore and after removal from the patient to ensure they are fully intact. Throughoutthe procedure, the patient's blood pressure, pulse, and oxygen saturations weremonitored continuously.The upper GI endoscopy was accomplished without difficulty.The patient tolerated the procedure well. The GIF-Q190 Endoscope ([id number]) wasintroduced through the mouth, and advanced to the jejunum. Findings & Specimens: The examined esophagus was normal. Evidence of a classic Whipple was found in the gastric body. This wascharacterized by healthy appearing mucosa. The examined jejunum was normal. Impression: - Normal esophagus. - A classic Whipple was found, characterized byhealthy appearing mucosa. - Normal examined jejunum. - No specimens collected. Recommendation: - Discharge patient to home (with escort). - Return to referring physician as previouslyscheduled. - Continue present medications. - [facility] Raymond Campbell MD 04/27/2024 11:14:02 AM This report has been signed electronically. Orlin Castro MD GASTRO UPPER * COLONOSCOPY (04/27/2024 10:33 AM EDT) 04/27/2024 10:3 3 AM EDT Narrative Procedure Note Orlin Castro MD - 04/27/2024 10:33 AM EDT [facility] Patient Name: Mallory Soto Procedure Date: 04/27/2024 10:33 AM Date of : 1955 Admit Type: Outpatient Note Status:Finalized Date of : 1955 Admit Type: Outpatient Age: 68 Room: OR 2 Gender: Female Note Status: Finalized Procedure: Colonoscopy Indications: Personal history of familial adenomatouspolyposis Providers: Raymond Campbell MD (Doctor) Referring MD: Orlin Castro MD Medicines: Propofol per Anesthesia Complications: No immediate complications. Estimated blood loss:None. Procedure: Pre-Anesthesia Assessment: - - Prior to the procedure, a History and Physicalwas performed, patient medications, allergies and sensitivities were reviewed. Thepatient's tolerance of previous anesthesia was reviewed. See [facility] for furtherdetails. - The risks, benefits, and alternatives of theprocedure including the sedation options and risks were discussed with the patient.All questions were answered and informed consent was obtained. - Patient identification and proposed procedurewere verified prior to the procedure by the physician and the nurse. The procedure wasverified in the procedure room. - See [facility] for documentation of the pre-procedureassessment including ASA status. - After I obtained informed consent, the scope wascarefully and meticulously passed under direct vision only when the lumen wasdefinitively identified. CO2 insufflation was utilized throughout the entire procedureexclusively. After I obtained informed consent, the scope waspassed under direct vision. All instruments were visually inspected immediatelybefore and after removal from the patient to ensure they are fully intact. Throughout the procedure, the patient's bloodpressure, pulse, and oxygen saturations were monitored continuously.The colonoscopy wasperformed without difficulty. The patient tolerated the procedure well. The qualityof the bowel preparation was good. The [id number] Endoscope ([id number]) was introducedthrough the anus and advanced to the ileocolonic anastomosis. Findings & Specimens: There was evidence of a prior ileal pouch-anal anastomosis in thedistal rectum. This was patent and was characterized by healthy appearing mucosa. The ileoanal pouch contained multiple sessile, non-bleeding polyps.The polyps were 1 to 4 mm in diameter. The polyp was removed with a jumbo cold forceps. The polypwas removed with a cold snare. Resection and retrieval were complete. The pathology specimen wasplaced into Bottle Number 1. Proximal to the pouch appreared normal and without abnormality. Impression: - Patent ileal pouch-anal anastomosis,characterized by healthy appearing mucosa. - Multiple polyps in the ileoanal pouch, removedwith a jumbo cold forceps and removed with a cold snare. Resected andretrieved. Recommendation: - Discharge patient to home (with escort). - Repeat colonoscopy in 1 year for surveillancebased on pathology results. - Return to referring physician as previouslyscheduled. - Patient has a contact number available foremergenes. The signs and symptoms of potential delayed complications were discussed withthe patient. Return to normal activities tomorrow. Written discharge instructionswere provided to the patient. Raymond Campbell MD 04/27/2024 11:17:35 AM This report has been signed electronically. Orlin Castro MD GASTRO LOWER * (ABNORMAL) GLUCOSE METER, POINT OF CARE (04/27/2024 9:30 AM EDT) [facility] Signature GLUCOSE - POCT 139(H) 70 - 120 mg/dL 04/27/2024 9:33 AM EDT [facility] Blood Whole blood specimen / Unknown 04/27/2024 9:30 AM EDT 04/27/2024 9:33 AM EDT Raymond Campbell MD LAB POINT OF CARE TE ST DOCKED DEVICE UNSOLICITED RESULTS [facility] [address] [place] [address] documented in this encounter Administered Medications Inactive Administered Medications - up to 3 most recent administrations Medication Order MAR Action Action Date Dose Rate Site isolyte-S pH 7.4 infusion Intravenous, at 25 mL/hr, All Patients EXCEPT Dialysis patients Plasma-LYTE 148, isolyte-S, and isolyte-S pH 7.4 are considered equivalent - including for MAR barcode scanning., CONTINUOUS, Starting on Kalyn 04/27/24 at 0930, Until Kalyn 04/27/24 at 1554, Pre-Op Restarted 04/27/2024 10:54 AM EDT Continue from Pre-Op 04/27/2024 10:47 AM EDT 25 mL/hr New Bag 04/27/2024 9:27 AM EDT 25 mL/hr 25 mL/hr documented in this encounter Active and Recently Administered Medications Times are shown in EDT. Continuous Medication Order 04/25/2024 04/26/2024 04/27/2024 isolyte-S pH 7.4 infusion Intravenous, at 25 mL/hr, All Patients EXCEPT Dialysis patients Plasma-LYTE 148, isolyte-S, and isolyte-S pH 7.4 are considered equivalent - including for MAR barcode scanning., CONTINUOUS, Starting on Kalyn 04/27/24 at 0930, Until Kalyn 04/27/24 at 1554, Pre-Op 09 (New Bag - Prov ider: Karen Teran RN)1047 (Continue from Pre-Op - Provider: Garcia Remy CRNA)1053 (Paused - Provider: Garcia Remy CRNA - Comment: Switch to gravity)1054 (Restarted - Provider: Garcia Remy CRNA)1119 (Stopped - Provider: Garcia Remy CRNA) documented in this encounter Advance Directives * [...] patient have Health Care Power of Attor taniak? No Care Teams Systems Software Engineer Relationship Specialty Start Date End Date Orlin Castro MD 200 [place] [address] PCP - General Internal Medicine 04/27/19 documented as of this encounter
--- OUTSIDE RECORDS SUMMARY | 2024-07-16 08:05 | External Medical Summary ---
Author Name Unknown Address Unknown Organization : Laboratory Report Ordering Provider Test Date Status SOL VIVEROS 04/27/2024 09:30:44 Final Observation Date Value Abnormality Reference (Units ) Status Glucose Point of Care 04/27/2024 09:30:44 139 Above high normal 70-120 (mg/dL) Final Performing Location
--- OUTSIDE RECORDS SUMMARY | 2024-07-16 08:05 | External Medical Summary | Summary of Care ---
Author Name Unknown Organization [facility] Address [address] [place] [address] Phone [phone] Care Team Providers Care Jeep Mechanic Name Role Phone Orlin Castro MD Primary Care Provider + Reason for Visit * Reason Comments Medication Refill Encounter Details Date Type Department Care Team (Late st Contact Info) Description 04/20/2024 Refill Pharmacy, [facility] [address] [facility] [place] [address] [facility] [address] Type 2 diabetes mellitus with hemoglobin A1c goal of less than 7.0% ([facility]) Allergies Active Allergy Reactions Criticality Noted Date Comments Zolpidem Tartrate Psych complications 6 Rosuvastatin 04/05/2020 Elevated lft Hydrochlorothiazide 12/29/2019 brenda Nsaids Other (Please comment) 04/14/2016 Gastric ulcer with anemia documented as of this encounter (statuses as of 04/20/2024) Medications Medication Sig Dispensed Refills Start Date [...] [facility] [place]) Take 1 Tablet by mouth two times [...] Respimat 2.5 MCG/ACT Inhalation Aerosol Solution (Tiotropium [place] Monohydrate) Inhale 2 Puffs by mouth in [...] times daily. DX: E11.9 400 Strip 3 4 Active OneTouch Verio In Vitro Strip (Glucose Blood)Indications: Type 2 diabetes mellitus with hemoglobin A1c goal of less than 7.0% (HCC) Use to test blood glucose 4 times daily. DX: E11.9 400 Strip 3 3 04/20/20 24 Discontinu ed(Refill) documented as of this encounter (statuses as of 04/20/2024) Active Problems Problem Noted Date Diagnosed Date [...] as of this encounter (statuses as of 04/20/2024) Resolved Problems Problem Noted Date Diagnosed Date [...] as of this encounter (statuses as of 04/20/2024) Immunizations Name Administration Dates Next Due COVID-19 [...] Telephone Encounter - Orlin Castro MD - 04/20/2024 4:02 PM EDTSigned Prescriptions: Disp Refills OneFuse Scienceuch Asteres In Vitro Strip (Glucose Blo*400 St*3 Sig: Use to test blood glucose 4 times daily. DX: E11.9Authorizing Provider: ORLIN CASTRO documented in this encounter Plan of Treatment Upcoming Encounters Date Type Department Care Team (Latest Contact Info) Description 04/24/2024 2:10 PM EDT Office Visit Pharmacy, [facility] [place] [address] [place] [address] Pharmacist1, [facility] [address] [place] [address] 04/24/2024 2:40 PM EDT Office Visit General Internal Medicine [facility] [place] [address] [place] [address] [address] Orlin Castro MD [address] [place] [address] 04/25/2024 10:00 AM EDT Telemedicine Endocrinology, [place] [address] [place] [place] [place] [address] Nhung Monzon MD [address] [facility] [place] [address] 04/27/2024 10:14 AM EDT Hospital Encounter OR [facility], Operating Room, [address] [place] [address] Raymond Campbell MD [address] [place] [address] 04/27/2024 10:14 AM EDT - 04/27/2024 10:55 AM EDT Surgery OR [facility], Operating Room, [address] [place] [address] Raymond Campbell MD [address] [place] [address] COLONOSCOPY FLEXIBLE PROXIMAL DIAGNOSTIC 05/03/2024 1:00 PM EDT Hospital Encounter OR [facility], [address] Room, [address] [address] [facility], In And Out Surgery [address] [place], [place] [address] [address] 05/03/2024 1:00 PM EDT PulmDiagnostic Pulmonary Function Lab, [address] [place] [address] 05/03/2024 1:00 PM EDT - 05/03/2024 1:30 PM EDT Surgery OR [facility], Operating Room, [address] [place] [address] [facility], In And Out Surgery [address] [place], [place] [address] [address] PRE / POST CARE 05/30/2024 8:50 AM EST Office Visit Optometry, [address] [place] [address] Ari Staley, Rancho Bullard, OD [address] [place] [address] 06/29/2024 8:00 AM EST Office Visit Orthopaedics [facility] 132 [place] [address] Javon Bunn, [address] [place] [address] 07/04/2024 9:20 AM EST Office Visit General Internal Medicine [facility] [address] [facility] [place] [address] Orlin Castro MD [address] [facility] [place] [address] 10/03/2024 8:40 AM EDT Office Visit Nephrology, [facility] [address] [facility] [place] [place] [address] Galindo Jean MD [address] [facility] [place] [address] 04/04/2025 9:40 AM EDT Office Visit Pulmonary Medicine, [facility] [address] [place] [address] Perfecto Contreras MD [address] [place] [address] Scheduled Procedures Name Priority Associated Diagnoses Date/Ti me COLONOSCOPY FLEXIBLE PROXIMAL DIAGNOSTIC Family history of colonic polyps 04/27/2024 10:14 AM EDT PRE / POST CARE Mucus [...] Additional history exists CKD HGB USE SMARTSET 11246 01/12/202501/12, 01/13/2024, 08/03/2023, Additional history exists CKD PHOS USE SMARTSET 58547 01/12/202501/02, 08/23/2023, 08/03/2023, Additional history exists O2 ASSESSMENT COMPLETED IN PAST YEAR FOR COPD 04/04/2025 04/04/2024 Sigmoidoscopy 04/29/2026 04/29/2021, 10/15/2020 DXA Scan 05/12/2026 05/12/2022, 05/12/2022 Lipid Panel 10/12/2028 10/13/2023, 0410/2022, 03/06/2022, Additional history exists DTap/Tdap Vaccines (3 [...] encounter Medical Devices Implanted Type Area Baseball Hand Sewer Device Identifier Shelf Expiration Date Model / Serial / Lot Stent Pancreatic Geenen 5fr - [id number] Implanted:Qty: 1 on 06/17/2010 at OR [facility] [employer] 03/18/2013 [id number] / / [id number] Stent 10fr 7cm - [id number] Implanted:Qty: 1 on 06/17/2010 at OR [facility] [employer] : RADHA [place] 01/15/2013 [id number] / / [id number] Description:pancreas documented as of this encounter Visit Diagnoses Diagnosis Type 2 diabetes mellitus with hemoglobin A1c goal of less than 7.0% (HCC) Family history of colonic polyps Mucus plugging of bronchi documented in this encounter Advance Directives * [...] Power of Attor tanika? No Care Teams Jeep Mechanic Relationship Specialty Start Date End Date Orlin Castro MD 200 [place] [address] PCP - General Internal Medicine 04/27/19 documented as of this encounter
--- OUTSIDE RECORDS SUMMARY | 2024-07-16 08:05 | External Medical Summary | Summary of Care ---
Author Name Unknown Organization [facility] Address [address] [place] [address] Phone [phone] Care Team Providers Care Enamel Buffer Name Role Phone Orlin Castro MD Primary Care Provider + Reason for Visit * Reason Onset Date Comments Appointment 04/13/2024 Encounter Details Date Type Department Care Team (Late st Contact Info) Description 04/13/2024 Telephone [facility] [address] [place] [address] Nhung Monzon MD [address] [place] [address] Appointment Allergies Active Allergy Reactions Criticality Noted Date Comments Zolpidem Tartrate Psych complications 6 Rosuvastatin 04/05/2020 Elevated lft Hydrochlorothiazide 12/29/2019 brenda Nsaids Other (Please comment) 04/14/2016 Gastric ulcer with anemia documented as of this encounter (statuses as of 04/13/2024) Medications Medication Sig Dispensed Refills Start Date [...] 20 MCG/2ML Inhalation Nebulization Solution 2022 Active OneTouch Verio In Vitro Strip [...] Respimat 2.5 MCG/ACT Inhalation Aerosol Solution (Tiotropium [place] Monohydrate) Inhale 2 Puffs by mouth in [...] as of this encounter (statuses as of 04/13/2024) Active Problems Problem Noted Date Diagnosed Date [...] as of this encounter (statuses as of 04/13/2024) Resolved Problems Problem Noted Date Diagnosed Date [...] as of this encounter (statuses as of 04/13/2024) Immunizations Name Administration Dates Next Due COVID-19 [...] No 06/22/2023 Does the household have a [facility] source of income? (Household - for ages [...] shopping? (15 years old or older) No 05/28/20 21 Cognitive Status Response Date of Assessm ent Because of a physical, menta l, or emotional condition, do you have serious difficulty concentrating, remembering, or making decisions? (5 years old or older) No 11/29/2020 documented as of this encounter Miscellaneous Notes * Telephone Encounter - Robyn Ramos OSA - 04/13/2024 11:30 AM EDT LMAM informing pt she is being scheduled for a video appt on 04/25 at 10 am. Left number for Scheduling if date/time does not work documented in this encounter Plan of Treatment Upcoming Encounters Date Type Department Care Team (Latest Contact Info) Description 04/24/2024 2:10 PM EDT Office Visit Pharmacy, [facility] 200 [facility] [place] [address] [address], [facility] 200 [facility] [place] [address] 04/24/2024 2:40 PM EDT Office Visit General Internal Medicine [facility] 200 [facility] [place] [address] Orlin Castro MD 200 [facility] [place] [address] 04/27/2024 10:55 AM EDT Hospital Encounter OR [facility], Operating Room, [facility] - 4th Floor 400 [facility] [place] [phone] Raymond Campbell MD [address] [place] [address] 04/27/2024 10:55 AM EDT - 04/27/2024 11:36 AM EDT Surgery OR [facility], Operating Room, [facility] - 4th Floor [address] [facility] [place] [phone] Raymond Campbell MD [address] [place] [address] COLONOSCOPY FLEXIBLE PROXIMAL DIAGNOSTIC 05/03/2024 1:00 PM EDT Hospital Encounter OR [facility], Operating Room, [facility] - 4th Floor [address] [place] [address] [facility], In And Out Surgery [address] [place] [address] 05/03/2024 1:00 PM EDT PulmDiagnostic Pulmonary Function Lab, [facility] [address] [place] [address] 05/03/2024 1:00 PM EDT - 05/03/2024 1:30 PM EDT Surgery OR [facility], Operating Room, [facility] - 4th Floor [address] [place] [address] [facility], In And Out Surgery [address] [place] [address] PRE / POST CARE 05/30/2024 8:50 AM EST Office Visit Optometry, [place] [address] [place] [address] Ari Staley, [place] Bull[place], MAGGY [address] [place] [address] 06/29/2024 8:00 AM EST Office Visit Orthopaedics [facility] [address] [place] [address] Javon Bunn DO [address] [place] [address] 07/04/2024 9:20 AM EST Office Visit General Internal Medicine [facility] [place] [address] [place] [address] Orlin Castro MD [address] [facility] [place] [address] 10/03/2024 8:40 AM EDT Office Visit Nephrology, [facility] [address] [place] [address] Galindo Jean MD [address] [place] [address] 04/04/2025 9:40 AM EDT Office Visit Pulmonary Medicine, [facility] [address] [place] [address] Perfecto Contreras MD [address] [place] [address] Scheduled Procedures Name Priority Associated Diagnoses Date/Ti me COLONOSCOPY FLEXIBLE PROXIMAL DIAGNOSTIC Family history of colonic polyps 04/27/2024 10:55 AM EDT PRE / POST CARE Mucus [...] Additional history exists CKD HGB USE SMARTSET 08147 01/12/202501/12, 01/13/2024, 08/03/2023, Additional history exists CKD PHOS USE SMARTSET 78561 01/12/202501/02, 08/23/2023, 08/03/2023, Additional history exists O2 [...] this encounter Medical Devices Implanted Type Area Technical Assistance Consultant Device Identifier Shelf Expiration Date Model / Serial / Lot Stent Pancreatic Geenen 5fr - [id number] Implanted:Qty: 1 on 06/17/[address] [facility] [employer] 03/18/2013 [id number] / / [id number] Stent 10fr 7cm - [id number] Implanted:Qty: 1 on 06/17/[address] [facility] : RADHA [place] 01/15/2013 [id number] / / [id number] Description:pancreas documented as of this encounter Advance [...] Power of Attor tanika? No Care Teams Enamel Buffer Relationship Specialty Start Date End Date Orlin Castro MD [address] [place] [address] [place] [address] PCP - General Internal Medicine 04/27/19 documented as of this encounter
--- OUTSIDE RECORDS SUMMARY | 2024-07-16 08:05 | External Medical Summary | Summary of Care ---
Author Name Unknown Organization [facility] Address [address] [place] [address] Phone [phone] Care Team Providers Care Manual Equipment Mechanic Name Role Phone Orlin Castro MD Primary Care Provider + Encounter Details Date Type Department Care Team (Late st Contact Info) Description 04/26/2024 Population Health External Data Unspecified Department Allergies [...] 400 Each 3 03/09/2019 Active Misc. Devices [facility] Tracheostomy Care Kit #4601 1 Each 10/02/2019 [...] :COPD, group B, by GOLD 2017 classification ([facility]) Inhale via nebulizer 3 mL [...] hemoglobin A1c goal of less than 7.0% ([facility]) Take 1 Tablet by mouth two times a day. 180 Tablet 3 11/17/2023 Active Repaglinide 2 MG Oral Tablet (Prandin)Indication s:Type 2 diabetes mellitus with hemoglobin A1c goal of less than 7.0% ([facility]) Take 1 tablet by mouth in the [...] hemoglobin A1c goal of less than 7.0% ([facility]) TAKE ONE-HALF TABLET BY MOUTH EVERY DAY [...] Respimat 2.5 MCG/ACT Inhalation Aerosol Solution (Tiotropium [place] Monohydrate) Inhale 2 Puffs by mouth in [...] hemoglobin A1c goal of less than 7.0% ([facility]) Use to test blood glucose [...] No 06/22/2023 Does the household have a [facility] source of income? (Household - for ages [...] 04/27/2024 10:07 AM EDT Hospital Encounter OR [facility], Operating Room, [facility] - [address] [place] [address] [address] [place] [address] Raymond Campbell MD [address] [place] [address] 04/27/2024 10:07 AM EDT - 04/27/2024 10:48 AM EDT Surgery OR [facility], Operating Room, [address] [place] [address] Raymond Campbell MD [address] [place] [address] COLONOSCOPY FLEXIBLE PROXIMAL DIAGNOSTIC 05/03/2024 1:00 PM EDT Hospital Encounter OR [facility], Operating Room, [address] [place] [address] [facility], In And Out Surgery [address] [place] [address] 05/03/2024 1:00 PM EDT PulmDiagnostic Pulmonary Function Lab, [facility] [address] [place] [address] 05/03/2024 1:00 PM EDT - 05/03/2024 1:30 PM EDT Surgery OR [facility], Operating Room, [address] [place] [address] [facility], In And Out Surgery [address] [place] [address] [place] [address] PRE / POST CARE 05/30/2024 8:50 AM EST Office Visit Optometry, [place] [address] [place] [address] Ari Staley, Rancho Bullard OD 16 [facility] [place] [address] 06/29/2024 8:00 AM EST Office Visit Orthopaedics [facility] 132 [facility] [place] [address] Javon Bunn, [address] [place] [address] 07/04/2024 9:20 AM EST Office Visit General Internal Medicine [facility] 200 [facility] [place] [address] Orlin [place] MD 200 [facility] [place] [address] 10/03/2024 8:40 AM EDT Office Visit Nephrology, [facility] 200 [facility] [place] [address] Galindo Jean MD 200 [facility] [place] [address] 04/04/2025 9:40 AM EDT Office Visit Pulmonary Medicine, [facility] 132 [facility] [place] [address] Perfecto Contreras MD [address] [facility] [place] [address] Scheduled Procedures Name Priority Associated Diagnoses Date/Ti [...] Additional history exists CKD HGB USE SMARTSET 29792 01/12/202501/12, 01/13/2024, 08/03/2023, Additional history exists CKD PHOS USE SMARTSET 91134 01/12/202501/02, 08/23/2023, 08/03/2023, Additional history exists O2 [...] this encounter Medical Devices Implanted Type Area Wood Carver Device Identifier Shelf Expiration Date Model / Serial / Lot Stent Pancreatic Geenen 5fr - [id number] Implanted:Qty: 1 on 06/17/2010 at OR [facility] [employer] 03/18/2013 [id number] / / [id number] Stent 10fr 7cm - [id number] Implanted:Qty: 1 on 06/17/2010 at [place] [facility] [employer] : RADHA [place] 01/15/2013 [id number] / / [id number] Description:pancreas documented as of this encounter Advance [...] Power of Attor tanika? No Care Teams Manual Equipment Mechanic Relationship Specialty Start Date End Date Orlin Castro MD 200 [place] [address] PCP - General Internal Medicine 04/27/19 documented as of this encounter
--- OUTSIDE RECORDS SUMMARY | 2024-07-16 08:06 | External Medical Summary | Summary of Care ---
Author Name Unknown Organization [facility] Address [address] [facility] [place] [address] Phone [phone] Care Team Providers Care Pressing Department Supervisor Name Role Phone Orlin Castro MD Primary Care Provider + Reason for Referral * Precert (Within 10 days (routine)) - Authorized Specialty Diagnoses / Procedures Referred By Contac t Referred To Contact Pain Medicine Diagnoses Primary osteoarthritis of both knees Procedures INJECT MAJOR JX/BURSA W/O US GUIDE Javon Bunn DO [address] [place] [address] Referral ID Status Reason Start Date Expiration Date V isits Requested Visits Authorized [id number] Authorized 03/29/2024 999 999 Reason for Visit * Reason Comments Follow Up Bilateral knee Encounter Details Date Type Department Care Team (Latest Contact Info) Description 03/29/2024 11:15 AM EDT Office Visit Orthopaedics [facility] [address] [place] [address] Javon Bunn DO [address] [place] [address] Primary osteoarthritis of both knees* Allergies Active Allergy Reactions Criticality Noted Date Comments Zolpidem Tartrate Psych complications 6 Rosuvastatin 04/05/2020 Elevated lft Hydrochlorothiazide 12/29/2019 brenda Nsaids Other (Please comment) 04/14/2016 Gastric ulcer with anemia documented as of this encounter (statuses as of 03/29/2024) Medications Medication Sig Dispensed Refills Start Date [...] for Wheezing. 360 mL 1 12/30/2021 Active Sodium Chloride 7 % Inhalation Nebulization Solution (Hyper-Allen) 4 ML VIA NEBULIZER TWICE DAILY FOR RESP. FOR 1 WEEK ONLY USE FOR 1 WEEK 2022 Active Formoterol Fumarate 20 MCG/2ML Inhalation Nebulization Solution 2022 Active MVP InteractiveTouch Verio In Vitro Strip (Glucose Blood)Indications:T ype 2 diabetes mellitus with hemoglobin A1c goal of less than 7.0% ([facility]) Use to test blood glucose 4 [...] EVENING SNACK 45 Tablet 3 12/31/2023 Active Hospital, Clinic, or Other Facility Administered Medication Ordered Dose Route Frequency Start Date End Date Status lidocaine 1% 1 mL - triamcinolone acetonide 40 mg/mL 1 mL inj 2 mLIndications:Primary osteoarthritis of both knees 2 mL IJ ONCE 03/29/2024 03/29/2024 Ended lidocaine 1% 1 mL - triamcinolone acetonide 40 mg/mL 1 mL inj 2 mLIndications:Primary osteoarthritis of both knees 2 mL IJ ONCE 03/29/2024 03/29/2024 Ended documented as of this encounter (statuses as of 03/29/2024) Active Problems Problem Noted Date Diagnosed Date [...] as of this encounter (statuses as of 03/29/2024) Resolved Problems Problem Noted Date Diagnosed Date [...] as of this encounter (statuses as of 03/29/2024) Immunizations Name Administration Dates Next Due COVID-19 [...] lent, No Preserve, IM 03/18/2016,04/12/2015 Seasonal Influenza, Trivalen t, (IIV3), with Preserv, (Fluzone) 03/16/2014,03/24/2013,03/14/2012,04/07,06/05/2010 TDAP (age 10 and older)(Boostrix) 07/07/2022 [...] Progress Notes * Javon Bunn, DO - 03/29/2024 11:15 AM EDT Mallory Soto [id number] INJECTION NOTE Mallory Soto is a 68 year old female who presents to [facility] for Bilateral knee injections Last injected 11/24/2023 TODAY: She would like repeat injections Patient [...] group B, by GOLD 2017 classification (HCC) Obesity, Class I, BMI 30.0-34.9 (see actual [...] Formoterol Fumarate 20 MCG/2ML Inhalation Nebulization Solution OneTouch Zappos In Vitro Strip (Glucose Blood) Use to [...] DAY WITH EVENING SNACK 45 Tablet 3 No current facility-administered medications for this visit. Physical Exam General: in no acute distress Mood and Affect: normal Gait and Station: mildly antalgic Knee exam Active range of motion 0-110 No effusion tenderness to palpation at medial joint line b/l Assessment and Plan: see procedure note. f/u 3 months Primary osteoarthritis of both knees (Primary) - lidocaine 1% 1 mL - triamcinolone acetonide 40 mg/mL 1 mL inj 2 mL - lidocaine 1% 1 mL - triamcinolone acetonide 40 mg/mL 1 mL inj 2 mL - INJECT MAJOR JX/BURSA W/O US GUIDE Javon Bunn DO, MBA, FAAFP, RMSK [facility] Sports Cloth ShrinkerSausage Meat Trimmer Primary Care Sports Medicine Team Physician [facility] Office locations: Orthopaedics [place] [address] [address] This chart was completed in part utilizing [employer] Speech Voice Recognition Software. Grammatical errors, random word insertions, pronoun errors, and incomplete sentences are an occasional consequence of this system due to software limitations, ambient noise, and hardware issues. Any formal questions or concerns about the content, text, or information contained within the body of this dictation should be directly addressed to the provider for clarification. Mallory Soto [id number] Procedure note (knee injection), bilateral : Time [...] in this encounter Nursing Notes * Kyleigh Owen, YSABEL ASSIST - 03/29/2024 10:47 AM EDT Bilateral knee inj. documented in this encounter Plan of Treatment Upcoming Encounters Date Type Department Care Team (Latest Contact Info) Description 04/24/2024 2:10 PM EDT Office Visit Pharmacy, [facility] [address] [facility] [place] [address] Pharmacist1, [facility] 200 [facility] [place] [address] 04/24/2024 2:40 PM EDT Office Visit General Internal Medicine [facility] [address] [facility] [place] [address] Orlin Castro MD 200 [facility] [place] [address] 04/27/2024 11:27 AM EDT Hospital Encounter [facility], Operating Room, [facility] - 4th Floor [address] [place] [phone] Raymond Campbell MD [address] [place] [address] 04/27/2024 11:27 AM EDT - 04/27/2024 12:17 PM EDT Surgery [facility], Operating Room, [facility] Floor [address] [place] [phone] Raymond Campbell MD [address] [place] [address] COLONOSCOPY FLEXIBLE PROXIMAL DIAGNOSTIC 05/30/2024 8:50 AM EST Office Visit [facility] [address] [place] [address] Rancho Chapman Jr., OD [address] [place] [address] 06/29/2024 8:00 AM EST Office Visit Orthopaedics [facility] [address] [place] [address] Javon Bunn DO [address] [place] [address] 07/04/2024 9:20 AM EST Office Visit General Internal Medicine [facility] [place] [address] [facility] [place] [address] Orlin Castro MD 200 [facility] [place] [address] 10/03/2024 8:40 AM EDT Office Visit Nephrology, [facility] 200 [facility] [place] [address] Galindo Jean MD [address] [facility] [address] Scheduled Orders Name Type Priority Associated Diagnoses Orde r Schedule INJECT MAJOR JX/BURSA W/O US GUIDE Procedures Routine Primary osteoarthritis of both knees Ordered: 03/29/2024 Scheduled Procedures Name Priority Associated Diagnoses Date/Ti me COLONOSCOPY FLEXIBLE PROXIMAL DIAGNOSTIC Family history of colonic polyps 04/27/2024 11:27 AM EDT Health Maintenance Due Date Last [...] 03/15/2024 03/15/2023, 05/05, 03/06/2022, Additional history exists COVID-19 Vaccine ( season) 2024 04/07/2023, 07/07/2022, 02/15/2021, Additional history exists Postponed from 03/05/2024 (Unavailable) Adult Wellness Visit 04/14/2024 04/14/2023 Albumin/Creatinine Ratio 05/05/2024 023, 05/14/2022, 05/01/2022, Additional history exists Depression Screening 06/22/2024 06/22/2023 HbA1c 07/01/2024 12/31/2023, 09/03, 05/31/2023, Additional history exists GFR 07/15/2024 01/13/2024, 04, 08/23/2023, Additional history exists Mammogram 09/13/2024 09/14/2023, 09/02, 09/11/2022, Additional history exists Diabetic Foot Exam 09/29/2024 09/30/2023, 0 08/07/2022, 08/21/2021, Additional history exists CKD HGB USE SMARTSET 46009 01/12/202501/12, 01/13/2024, 08/03/2023, Additional history exists CKD PHOS USE SMARTSET 21142 01/12/202501/02, 08/23/2023, 08/03/2023, Additional history exists O2 ASSESSMENT COMPLETED IN PAST YEAR FOR COPD 03/20/2025 03/20/2024 Sigmoidoscopy 04/29/2026 04/29/2021, 10/15/2020 DXA Scan 05/12/2026 [...] this encounter Medical Devices Implanted Type Area Labview Programmer Device Identifier Shelf Expiration Date Model / Serial / Lot Stent Pancreatic Geenen 5fr - [id number] Implanted:Qty: 1 on 06/17/2010 at [place] [facility] 03/18/2013 [id number] / / [id number] Stent 10fr 7cm - [id number] Implanted:Qty: 1 on 06/17/2010 at [place] [facility] : RADHA [place] 01/15/2013 [id number] / / [id number] Description:pancreas documented as of this encounter Visit [...] 2 mL 2 mL, Injection, ONCE, On Wed03/29/24 at 1130, For 1 dose, Lidocaine 1% 1mL Triamcinolone Acetonide 40 mg/mL 1 mL (Final concentration = 20 mg/mL) REFRIGERATE and SHAKE WELL Given 03/29/2024 10:49 AM EDT 2 mL Knee Right lidocaine 1% 1 mL - triamcinolone acetonide 40 mg/mL 1 mL inj 2 mL 2 mL, Injection, ONCE, On Wed03/29/24 at 1130, For 1 dose, Lidocaine 1% 1mL Triamcinolone Acetonide 40 mg/mL 1 mL (Final concentration = 20 mg/mL) REFRIGERATE and SHAKE WELL Given 03/29/2024 10:48 AM EDT 2 mL Knee Left documented [...] Power of Attor tanika? No Care Teams Pressing Department Supervisor Relationship Specialty Start Date End Date Orlin Castro MD [address] [place] [address] PCP - General Internal Medicine 04/27/19 documented as of this encounter
--- OUTSIDE RECORDS SUMMARY | 2024-07-16 08:06 | External Medical Summary | Summary of Care ---
Author Name Unknown Organization [facility] Address [address] [facility] [place] [address] Phone [phone] Care Team Providers Care Delivery Table Operator Name Role Phone Orlin Castro MD Primary Care Provider + Reason for Referral * Precert (Within 10 days (routine)) - Authorized Specialty Diagnoses / Procedures Referred By Contac t Referred To Contact Pain Medicine Diagnoses Primary osteoarthritis of both knees Procedures INJECT MAJOR JX/BURSA W/O US GUIDE Javon Bunn DO [address] [place] [address] Referral ID Status Reason Start Date Expiration Date V isits Requested Visits Authorized [id number] Authorized 03/29/2024 999 999 Reason for Visit * Reason Comments Follow Up Bilateral knee Encounter Details Date Type Department Care Team (Latest Contact Info) Description 03/29/2024 11:15 AM EDT Office Visit Orthopaedics [facility] [address] [place] [address] Javon Bunn DO [address] [place] [address] Primary osteoarthritis of both knees* Allergies Active [...] 20 MCG/2ML Inhalation Nebulization Solution 2022 Active CodexisTouch Verio In Vitro Strip (Glucose Blood)Indications:T ype 2 diabetes mellitus with hemoglobin A1c goal of less than 7.0% ([facility]) Use to test blood glucose [...] - 03/29/2024 11:15 AM EDT Mallory Soto [id number] INJECTION NOTE Mallory Soto is a 68 year old female who presents to [facility] for Bilateral knee injections Last [...] Fumarate 20 MCG/2ML Inhalation Nebulization Solution OneTouch [employer] Temperature Concepts In Vitro Strip (Glucose Blood) Use to [...] GUIDE Javon Bunn DO, MBA, FAAFP, RMSK [facility] Sports Upsetter Setter UpBioinformatics Research Technician Primary Care Sports Medicine Team Physician [facility] Office locations: Orthopaedics [place] [address] [address] This chart was completed in part utilizing crossvertise Speech Voice Recognition Software. Grammatical errors, random word insertions, pronoun errors, and incomplete sentences are an occasional consequence of this system due to software limitations, ambient noise, and hardware issues. Any formal questions or concerns about the content, text, or information contained within the body of this dictation should be directly addressed to the provider for clarification. Mallory Soto [id number] Procedure note (knee injection), bilateral : Time [...] 04/24/2024 2:10 PM EDT Office Visit Pharmacy, [facility] 200 [facility] [place] [address] Pharmacist1, [facility] 200 [facility] [place] [address] 04/24/2024 2:40 PM EDT Office Visit General Internal Medicine [facility] 200 [facility] [place] [place] [address] Orlin Castro MD 200 [facility] [place] [address] 04/27/2024 11:27 AM EDT Hospital Encounter [facility], Operating Room, [facility] - 4th Floor [address] [place] [phone] Raymond Campbell MD [address] [place] [address] 04/27/2024 11:27 AM EDT - 04/27/2024 12:17 PM EDT Surgery [facility], Operating Room, [facility] Floor [address] [place] [phone] Raymond Campbell MD [address] [place] [address] COLONOSCOPY FLEXIBLE PROXIMAL DIAGNOSTIC 05/30/2024 8:50 AM EST Office Visit [facility] [address] [place] [address] Rancho Chapman Jr., OD 16 [place] [address] 06/29/2024 8:00 AM EST Office Visit Orthopaedics [facility] [address] [place] [address] Javon Bunn DO [address] [place] [address] 07/04/2024 9:20 AM EST Office Visit General Internal Medicine [facility] [place] 200 [facility] [place] [place] [address] Orlin Castro MD 200 [facility] [place] [address] 10/03/2024 8:40 AM EDT Office Visit Nephrology, [facility] 200 [facility] [place] [address] Galindo Jean MD 200 [facility] [place] [address] Scheduled Orders Name Type Priority Associated Diagnoses [...] Additional history exists CKD HGB USE SMARTSET 95674 01/12/202501/12, 01/13/2024, 08/03/2023, Additional history exists CKD PHOS USE SMARTSET 98270 01/12/202501/02, 08/23/2023, 08/03/2023, Additional history exists O2 [...] this encounter Medical Devices Implanted Type Area Machine Made Shoe Unit Worker Device Identifier Shelf Expiration Date Model / Serial / Lot Stent Pancreatic Geenen 5fr - [id number] Implanted:Qty: 1 on 06/17/2010 [place] [facility] 03/18/2013 [id number] / / [id number] Stent 10fr 7cm - [id number] Implanted:Qty: 1 on 06/17/2010 [place] [facility] [place] RADHA [place] 01/15/2013 [id number] / / [id number] Description:pancreas documented as of this encounter Visit [...] Power of Attor tanika? No Care Teams Delivery Table Operator Relationship Specialty Start Date End Date Orlin Castro MD 200 [place] [address] PCP - General Internal Medicine 04/27/19 documented as of this encounter
--- OUTSIDE RECORDS SUMMARY | 2024-07-16 08:06 | External Medical Summary | Summary of Care ---
Author Name Unknown Organization [facility] Address [address] [facility] [place] [address] Phone [phone] Care Team Providers Care Filler Wiper Name Role Phone Orlin Castro MD Primary Care Provider + Reason for Referral * Precert (Within 10 days (routine)) - Authorized Specialty Diagnoses / Procedures Referred By Contac t Referred To Contact Pain Medicine Diagnoses Primary osteoarthritis of both knees Procedures INJECT MAJOR JX/BURSA W/O US GUIDE Javon Bunn DO [address] [place] [address] Referral ID Status Reason Start Date Expiration Date V isits Requested Visits Authorized [id number] Authorized 03/29/2024 999 999 Reason for Visit * Reason Comments Follow Up Bilateral knee Encounter Details Date Type Department Care Team (Latest Contact Info) Description 03/29/2024 11:15 AM EDT Office Visit Orthopaedics [facility] [address] [place] [address] Javon Bunn DO [address] [place] [address] Primary osteoarthritis of both knees* Allergies Active [...] :COPD, group B, by GOLD 2017 classification ([facility]) Inhale via nebulizer 3 mL every 6 hours as needed for Wheezing. 360 mL 1 12/30/2021 Active Sodium Chloride 7 % Inhalation Nebulization Solution (Hyper-Allen) 4 ML VIA NEBULIZER TWICE DAILY FOR RESP. FOR 1 WEEK ONLY USE FOR 1 WEEK 2022 Active Formoterol Fumarate 20 MCG/2ML Inhalation Nebulization Solution 2022 Active RoundscapesTouch Verio In Vitro Strip (Glucose Blood)Indications:T ype 2 diabetes mellitus with hemoglobin A1c goal of less than 7.0% ([facility]) Use to test blood glucose [...] - 03/29/2024 11:15 AM EDT Mallory Soto [id number] INJECTION NOTE Mallory Soto is a 68 year old female who presents to [facility] for Bilateral knee injections [...] Fumarate 20 MCG/2ML Inhalation Nebulization Solution OneTouch [facility] In Vitro Strip (Glucose Blood) Use to [...] GUIDE Javon Bunn DO, MBA, FAAFP, RMSK [facility] Sports Residency CoordinatorMuseum Registrar Primary Care Sports Medicine Team Physician [facility] Office locations: Orthopaedics [place] [address] [address] This chart was completed in part utilizing Elevaate Speech Voice Recognition Software. Grammatical errors, random word insertions, pronoun errors, and incomplete sentences are an occasional consequence of this system due to software limitations, ambient noise, and hardware issues. Any formal questions or concerns about the content, text, or information contained within the body of this dictation should be directly addressed to the provider for clarification. Mallory Soto [id number] Procedure note (knee injection), bilateral : Time [...] 04/24/2024 2:10 PM EDT Office Visit Pharmacy, [facility] 200 [facility] [place] [address] Pharmacist1, [facility] 200 [facility] [place] [address] 04/24/2024 2:40 PM EDT Office Visit General Internal Medicine [facility] 200 [facility] [place] [address] Orlin Castro MD 200 [facility] [place] [address] 04/27/2024 11:27 AM EDT Hospital Encounter OR [facility], Operating Room, [facility] Floor [address] [place] [address] Raymond Campbell MD [address] [place] [address] 04/27/2024 11:27 AM EDT - 04/27/2024 12:17 PM EDT Surgery OR [facility], Operating Room, [facility] Floor [address] [place] [address] Raymond Campbell MD [address] [place] [address] COLONOSCOPY FLEXIBLE PROXIMAL DIAGNOSTIC 05/30/2024 8:50 AM EST Office Visit Optometry, [facility] [address] [place] [address] Rancho Chapman Jr., OD 16 [place] [address] 07/04/2024 9:20 AM EST Office Visit General Internal Medicine [facility] 200 [facility] [place] [address] Orlin Castro MD 200 [facility] [place] [address] 10/03/2024 8:40 AM EDT Office Visit Nephrology, [facility] [place] 200 [facility] [place] [address] Galindo Jean MD 200 [facility] [place] [address] Scheduled Orders Name Type Priority Associated Diagnoses [...] Additional history exists CKD HGB USE SMARTSET 42635 01/12/202501/12, 01/13/2024, 08/03/2023, Additional history exists CKD PHOS USE SMARTSET 72640 01/12/202501/02, 08/23/2023, 08/03/2023, Additional history exists O2 [...] this encounter Medical Devices Implanted Type Area Manufacturing Engineering Professor Device Identifier Shelf Expiration Date Model / Serial / Lot Stent Pancreatic Kelsin 5fr - [id number] Implanted:Qty: 1 on 06/17/2010 at [place] [facility] 03/18/2013 [id number] / / [id number] Stent 10fr 7cm - [id number] Implanted:Qty: 1 on 06/17/2010 at [place] [facility] [facility] : RADHA [place] 01/15/2013 [id number] / / [id number] Description:pancreas documented as of this encounter Visit [...] Power of Attor tanika? No Care Teams Filler Wiper Relationship Specialty Start Date End Date Orlin Castro MD 200 [place] [address] PCP - General Internal Medicine 04/27/19 documented as of this encounter
--- OUTSIDE RECORDS SUMMARY | 2024-07-16 08:06 | External Medical Summary | Summary of Care ---
Author Name Unknown Organization [facility] Address [address] [place] [address] Phone [phone] Care Team Providers Care Poolroom/Poolhall Manager Name Role Phone Orlin Castro MD Primary Care Provider + Encounter Details Date Type Department Care Team (Late st Contact Info) Description 03/16/2024 Population Health External Data Unspecified Department Allergies Active Allergy Reactions Criticality Noted Date Comments Zolpidem Tartrate Psych complications 6 Rosuvastatin 04/05/2020 Elevated lft Hydrochlorothiazide 12/29/2019 brenda Nsaids Other (Please comment) 04/14/2016 Gastric ulcer with anemia documented as of this encounter (statuses as of 03/16/2024) Medications Medication Sig Dispensed Refills Start Date [...] group B, by GOLD 2017 classification ([facility]) Inhale via nebulizer . Use as directed. 1 Each 1 12/30/2021 Active Additional Information Patient not taking.Reported on 01/05/2024 Ipratropium-Albuter ol 0.5-2.5 (3) MG/3ML Inhalation Solution (Duoneb)Indications :COPD, group B, by GOLD 2017 classification ([facility]) Inhale via nebulizer 3 mL every 6 [...] Inhalation Suspension (Pulmicort) 0.25 mg. 2022 Active [employer] Verio In Vitro Strip (Glucose Blood)Indications:T ype 2 diabetes mellitus with hemoglobin A1c goal of less than 7.0% ([facility]) Use to test blood glucose 4 times [...] as of this encounter (statuses as of 03/16/2024) Active Problems Problem Noted Date Diagnosed Date [...] as of this encounter (statuses as of 03/16/2024) Resolved Problems Problem Noted Date Diagnosed Date [...] as of this encounter (statuses as of 03/16/2024) Immunizations Name Administration Dates Next Due COVID-19 [...] Department Care Team (Latest Contact Info) Description 03/20/2024 10:20 AM EDT Office Visit General Internal Medicine [facility] [place] [address] [place] [address] Tierra Manrique MD [address] [facility] [place] [address] 03/27/2024 8:40 AM EDT Office Visit Endocrinology [address] [place] [phone] Nhung Monzon MD [address] [facility] [place] [id number] 03/29/2024 11:15 AM EDT Office Visit Orthopaedics [facility] [address] [place] [address] Javon Bunn DO [address] [place] [address] 04/24/2024 2:10 PM EDT Office Visit Pharmacy, [facility] [place] [address] [place] [address] Pharmacist1, [facility] [address] [facility] [place] [address] 04/24/2024 2:40 PM EDT Office Visit [facility] [place] [address] [place] [address] Orlin Castro MD [address] [facility] [place] [address] 04/27/2024 11:21 AM EDT Hospital Encounter OR [facility], Operating Room, [facility] - 4th Floor [address] [place] [phone] Raymond Campbell MD [address] [place] [address] 04/27/2024 11:21 AM EDT - 04/27/2024 12:11 PM EDT Surgery OR [facility], Operating Room, [facility] - 4th Floor [address] [place] [phone] Raymond Campbell MD [address] [place] [address] COLONOSCOPY FLEXIBLE PROXIMAL DIAGNOSTIC 07/04/2024 9:20 AM EST Office Visit General Internal Medicine [facility] [place] [address] [facility] [address] [facility] [address] [place] [address] Orlin Castro MD [address] [facility] [place] [address] 10/03/2024 8:40 AM EDT Office Visit Nephrology, [facility] [address] [facility] [place] [address] Galindo Jean MD [address] [facility] [place] [address] Scheduled Procedures Name Priority Associated Diagnoses Date/Ti [...] COPD 01/04/2025 01/05/2024 CKD HGB USE SMARTSET 05844 01/12/202501/12, 01/13/2024, 08/03/2023, Additional history exists CKD PHOS USE SMARTSET 01426 01/12/202501/02, 08/23/2023, 08/03/2023, Additional history exists Sigmoidoscopy [...] this encounter Medical Devices Implanted Type Area [employer] Counselor Device Identifier Shelf Expiration Date Model / Serial / Lot Stent Pancreatic Geenen 5fr - [id number] Implanted:Qty: 1 on 06/17/2010 at [place] [facility] [employer] 03/18/2013 [id number] / / [id number] Stent 10fr 7cm - [id number] Implanted:Qty: 1 on 06/17/2010 at [place] [facility] [employer] : RADHA [place] 01/15/2013 [id number] / / [id number] Description:pancreas documented as of this encounter Advance [...] Power of Attor tanika? No Care Teams Poolroom/Poolhall Manager Relationship Specialty Start Date End Date Orlin Castro MD [address] [place] [address] PCP - General Internal Medicine 04/27/19 documented as of this encounter
--- OUTSIDE RECORDS SUMMARY | 2024-07-16 08:06 | External Medical Summary | Summary of Care ---
Author Name Unknown Organization [facility] Address [address] [place] [address] Phone [phone] Care Team Providers Care College Archivist Name Role Phone Orlin Castro MD Primary Care Provider + Reason for Referral * Evaluate & Treat - Unlimited Visits (Within 10 days (routine)) - Authorized Specialty Diagnoses / Procedures Referred By Contac t Referred To Contact Pulmonary Diseases / Pulmonary Diagnoses COPD exacerbation (HCC) Acute hypoxic respiratory failure (HCC) Hospital discharge follow-up Mucus plugging of bronchi Tracheostomy status (HCC) Tierra Manrique MD [address] [facility] [address] Referral ID Status Reason Start Date Expiration Date Visits Requested Visits Authorized [id number] Authorized Specialty Services Required 03/20/[phone] Question Answer Referral Priority Within 10 days (routine) Where should this appointment be scheduled? [facility] Primary Reason for Referral? Asthma/COPD Reason for Visit * Reason Onset Date Comments Hospital Follow-Up Hospital Follow-Up 03/20/2024 Encounter Details Date Type Department Care Team (Latest Contact Info) Description 03/20/2024 10:20 AM EDT Office Visit General Internal Medicine [employer] [address] [place] [address] Tierra Manrique MD [address] [place] [address] Hospital discharge follow-up*; COPD exacerbation (HCC); Acute hypoxic respiratory failure (HCC); Mucus plugging of bronchi; Tracheostomy status (HCC); History of thyroid cancer; Diabetes mellitus with proteinuria ([facility]); Mixed hyperlipidemia; Stage 3a chronic kidney disease ([facility]); Postsurgical hypothyroidism; Adrenal nodule ([facility]); Primary aldosteronism ([facility]); Need for RSV vaccination; COPD, group B, by GOLD 2017 classification ([facility]) Allergies Active Allergy Reactions Criticality Noted Date Comments Zolpidem Tartrate Psych complications 6 Rosuvastatin 04/05/2020 Elevated lft Hydrochlorothiazide 12/29/2019 brenda Nsaids Other (Please comment) 04/14/2016 Gastric ulcer with anemia documented as of this encounter (statuses as of 03/20/2024) Medications Medication Sig Dispensed Refills Start Date [...] for Wheezing. 360 mL 1 2 Active Sodium Chloride 7 % Inhalation Nebulization [...] of less than 7.0% ([facility]) TAKE ONE-HALF TABLET BY MOUTH EVERY DAY WITH EVENING SNACK 45 Tablet 3 4 Active RSVPreF3 Vac Recomb Adjuvanted 120 MCG/0.5ML Intramuscular Suspension Reconstituted (Arexvy)Indication s:Need for RSV vaccination,COPD, group B, by GOLD 2017 classification ([facility]) Inject 0.5 mL into a large muscle once for 1 dose. 0.5 mL 4 03/20/20 Active Compressor NebulizerIndicatio ns:COPD, group B, by GOLD 2017 classification ([facility]) Inhale via nebulizer . Use as directed. 1 Each 1 2 03/20/20 24 Discontinu ed(Patient preference /discontin uation) Breathe Comfort Humidifier Use as directed. Laryngectomy status. Use for humidification to Trach site 1 Each 2 3 03/20/20 24 Discontinu ed(Patient preference /discontin uation) Budesonide 0.25 MG/2ML Inhalation Suspension (Pulmicort) 0.25 mg. 3 03/20/20 24 Discontinu ed(Patient preference /discontin uation) Sucralfate 1 GM Oral Tablet (Carafate)Indicati ons:Gastritis, bile acid reflux Take by mouth 1 Tablet in the morning AND 1 Tablet at noon AND 1 Tablet in the evening AND 1 Tablet before bedtime. 360 Tablet 3 4 03/20/20 24 Discontinu ed(Patient preference /discontin uation) Pantoprazole Sodium 40 MG Oral Tablet Delayed Release (Protonix) TAKE ONE TABLET BY MOUTH EVERY DAY 90 Tablet 3 4 03/20/20 24 Discontinu ed(Patient preference /discontin uation) Amoxicillin-Pot Clavulanate 875-125 MG Oral Tablet (Augmentin)Indicat ions:Lung infection Take 1 Tablet by mouth in the morning and 1 Tablet before bedtime. Do all this for 7 days. 14 Tablet 4 03/20/20 24 Discontinu ed(End of Procedure) documented as of this encounter (statuses as of 03/20/2024) Active Problems Problem Noted Date Diagnosed Date [...] as of this encounter (statuses as of 03/20/2024) Resolved Problems Problem Noted Date Diagnosed Date [...] as of this encounter (statuses as of 03/20/2024) Immunizations Name Administration Dates Next Due COVID-19 [...] No 06/22/2023 Does the household have a scheurer hospitalr source of income? (Household - for [...] Sign Reading Time Taken Comments Blood Pressure 104/76 03/20/2024 10:18 AM EDT Pulse 63 03/20/2024 10:18 AM EDT Temperature 35.6 C (96.1 F) 03/20/2024 10:18 AM E DT Respiratory Rate 20 03/20/2024 10:18 AM EDT Oxygen Saturation 96% 03/20/2024 10:18 AM EDT Inhaled Oxygen Concentration - - Weight 79.4 kg (175 lb) 03/20/2024 10:18 AM EDT Height 162.6 cm (5' 4") 03/20/2024 10:18 AM EDT Body Mass Index 30.04 03/20/2024 10:18 AM EDT documented in this encounter Functional [...] as of this encounter Progress Notes * Tierra Manrique MD - 03/20/2024 10:40 AM EDT SUBJECTIVE: Mallory Soto is a 68 year old female. Chief Complaint Patient presents with Hospital Follow-Up Hospital Follow-Up Nursing Notes: Marlena King, MED ASSIST 03/20/24 1020 Signed Mallory Soto presents for hospital follow up. She would like to wait until April for her flu vaccine. Would like to know if she is eligible for RSV prior to turning 71? Medications & HM reviewed. HPI: Patient presents today for hospital follow-up appointment. Wt Readings from Last 6 Encounters: 03/20/24 79.4 kg (175 lb) 01/05/24 81.1 kg (178 lb 12.8 oz) 09/30/23 77.1 kg (170 lb) 09/28/23 76.2 kg (168 lb 1.6 oz) 08/23/23 76.2 kg (168 lb) 08/03/23 76.2 kg (168 lb) BP Readings from Last 6 Encounters: 03/20/24 104/76 01/05/24 119/70 09/30/23 110/70 09/28/23 128/72 08/23/23 140/80 08/03/23 138/79 Reviewed available hospital records including history and physical, labs, imaging and discharge summary. Patient is admitted 03/13/2024, discharged 03/14/2024 with a discharge diagnosis acute hypoxemic respiratory failure likely secondary to COPD exacerbation. Past medical history of thyroid/throat cancer, status post laryngectomy with tracheostomy, pancreatic cancer status post Whipple procedure, COPD, postsurgical DVT, type 2 diabetes, hypertension, CKD 3, dyslipidemia, postsurgical hypothyroidism, history of insomnia, psoriasis, obesity, Presents to the ED with worsening cough and shortness of breath for 2 days without fever or chills not on oxygen at home, had received 10 L via trach collar in the ED, has been admitted in January for hypoxemic respiratory failure related to COVID-19 treated with remdesivir steroids and azithromycin. Labs-Bio[employer] , procalcitonin negative WBC 14.7 HB 15.8, platelets 484 mg 1.8 Chest x-ray-no consolidation X-ray soft tissue neck-history of tracheostomy, no tracheostomy tube identified, postoperative findings in the neck. EKG NSR at 94, biatrial enlargement, QTC 500 milliseconds. 03/14/2024-WBC 14.2 HB 12.7, platelets 374, BUN 32, creatinine 1.1, sodium 135, sugar 229 Seen by Pulmonology Massiel , thought to have mucus plugging, respiratory therapist evaluated her. Was treated with Solu-Medrol, doxycycline, percussion therapy, flutter valve, DuoNebs, hypertonic saline Mucinex twice daily. Insulin used for A1c 8.5 01/24/2024 baseline creatinine 0.8 at discharge 1.2, given IV fluids. Discharge medications-prednisone 40 mg daily for 4 days 20 mg daily for 3 days and stop, doxycycline 100 mg twice a day for 4 days, brovana or performist - formoterol 20 mcg twice a day p.r.n. with budesonide 0.25mg nebulized bid, add revefenacin nebs 175 mcg inhalation daily. -Mucinex 100 mg twice a day with the 7% hypertonic saline nebulized twice daily --using DuoNeb twice a day and for Medrol as needed, does not have medication bottles with her Other medications continued-losartan 100 mg, carvedilol 25 mg twice a day, amlodipine 10 mg, metformin 500 mg twice a day, repaglinide 0.5 mg with the evening snack, 2 mg twice daily, pantoprazole 40mg daily, iron3/ daily, levothyroxine 200 mcg daily, Zetia 10 mg, B12 daily, , DuoNeb p.r.n., Flexeril as needed clear --not on K for a long time, has appt endo this mth Cough has improved, productive of clear secretions, using DuoNeb twice a day, has not got the new nebulizer yet from the pharmacy, using budesonide and formoterol twice daily. No fever or chills. Is done with the doxycycline and was on on last day of prednisone, blood sugars have been running high in the 200s to 300 range, this morning was 152. 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 No nausea vomiting or diarrhea. No leg edema. Drinks 2 cups of coffee per day, half to 1 qt of water per day Has appointment with PCP in April and would like to get the flu vaccine then. willing to get RSV vaccine-could not wait for pharmacy approval and wanted it sent to pharmacy Immunization History Administered Date(s) Administered COVID-19 mRNA, LNP-s, No Preserve, 2-Dose Series (Moderna) 12/12/2020, 01/09/2021, 02/15/2021 Covid-19, Mrna, Lnp-s, Pf, Bivalent, 50 Mcg, IM, 12 yrs and above (Moderna) 07/07/2022 Hepatitis B, 20+ yrs 06/22/2014, 07/27/2014, 12/20/2014 Pneumococcal Conjugate Vacc, 13 Valent (Prevnar) 04/04/2015, 04/26/2015 Pneumococcal Polysaccharide PPV23 (Pneumovax) 12/03/2013, 03/04/2022 Seasonal Influenza Virus Vaccine, Unspecified Formulation 06/05/2010, 03/18/2016, 04/14/2017, 04/21/2018, 03/10/2019 Seasonal Influenza, PF, 6 M & above, IM , (FluLaval or Fluzone) 04/14/2017, 04/21/2018, 03/10/2019, 04/22/2020, 03/21/2021 Seasonal Influenza, Quadrivalent Hd (Fluzone Hd) 03/04/2022, 03/18/2023 Seasonal Influenza, Quadrivalent, No Preserve, IM 04/12/2015, 03/18/2016 Seasonal Influenza, Trivalent, (IIV3), with Preserv, (Fluzone) 06/05/2010, 04/07/2011, 03/14/2012, 03/24/2013, 03/16/2014 TDAP (age 10 and older)(Boostrix) 07/07/2022 TDAP, Age 7 and older, IM (Adacel) 09/29/2010 Varicella Zoster Vaccine (Adult) 05/20/2017 Zoster Vaccine Recombinant (Shingrix) 06/14/2019, 12/04/2019 TSH Results: Lab Results Component Value Date/Time TSH - [facility] 2.04 03/15/2023 10:29 AM TSH - [facility] 2.19 05/14/2022 12:16 PM TSH - [facility] 0.63 03/06/2022 09:49 AM TSH - [facility] 4.84 (H) 07/24/2020 10:20 AM TSH - [facility] 1.31 12/04/2019 01:54 PM TSH - [facility] 0.10 (L) 06/07/2019 01:02 PM Hemoglobin Results: Lab Results Component Value Date/Time HGB 13.8 01/13/2024 09:04 AM HGB 12.6 08/03/2023 02:04 PM HGB 14.0 07/02/2023 12:29 PM HGB 14.1 10/05/2019 09:39 AM HGB 14.1 06/09/2019 09:59 AM HGB 14.2 04/10/2019 09:49 AM Component Latest Ref Rng 10/13/2023 Iron 33 - 151 ug/dL 64 Iron Binding Capacity 250 - 425 ug/dL 317 Transferrin Saturation Percent 15 - 55 % 20 Vitamin B12 232 - 1,245 pg/mL 482 Ferritin 13 - 150 ng/mL 74 Patient Active Problem List Diagnosis Insomnia Postsurgical hypothyroidism Tracheostomy status (HCC) Mitral valve regurgitation History of thyroid cancer Type 2 diabetes mellitus with hemoglobin A1c goal of less than 7.0% (HCC) Hypertension goal BP (blood pressure) < 140/90 History of pancreatic cancer Family history of familial adenomatous polyposis Gastroesophageal reflux disease without esophagitis Mixed hyperlipidemia COPD, group B, by GOLD 2017 classification ([facility]) Obesity, Class I, BMI 30.0-34.9 (see actual BMI) Diabetes mellitus with proteinuria (HCC) Psoriasis Pancreatic duct dilated Adrenal nodule (HCC) Primary aldosteronism (HCC) Type 2 diabetes mellitus with stage 3 chronic kidney disease, without long-term current use of insulin (HCC) Stage 3 chronic kidney disease (HCC) Hypertensive kidney disease with chronic kidney disease stage III ([facility]) Current Outpatient Medications Medication Sig Dispense Refill [...] Fumarate 20 MCG/2ML Inhalation Nebulization Solution OneTouch Verio In Vitro Strip (Glucose Blood) [...] TABLET THREE TIMES DAILY 270 Tablet 1 Pantoprazole Sodium 40 MG Oral Tablet Delayed Release (Protonix) TAKE ONE TABLET BY MOUTH EVERY DAY(Patient not taking: Reported on 01/05/2024) 90 Tablet 3 Carvedilol 25 MG Oral [...] Other (Please comment) Gastric ulcer with anemia Immunization History Administered Date(s) Administered COVID-19 mRNA, LNP-s, No Preserve, 2-Dose Series (Moderna) 12/12/2020, 01/09/2021, 02/15/2021 Covid-19, Mrna, Lnp-s, Pf, Bivalent, 50 Mcg, IM, 12 yrs and above (Moderna) 07/07/2022 Hepatitis B, 20+ yrs 06/22/2014, 07/27/2014, 12/20/2014 Pneumococcal Conjugate Vacc, 13 Valent (Prevnar) 04/04/2015, 04/26/2015 Pneumococcal Polysaccharide PPV23 (Pneumovax) 12/03/2013, 03/04/2022 Seasonal Influenza Virus Vaccine, Unspecified Formulation 06/05/2010, 03/18/2016, 04/14/2017, 04/21/2018, 03/10/2019 Seasonal Influenza, PF, 6 M & above, IM , (FluLaval or Fluzone) 04/14/2017, 04/21/2018, 03/10/2019, 04/22/2020, 03/21/2021 Seasonal Influenza, Quadrivalent Hd (Fluzone Hd) 03/04/2022, 03/18/2023 Seasonal Influenza, Quadrivalent, No Preserve, IM 04/12/2015, 03/18/2016 Seasonal Influenza, Trivalent, (IIV3), with Preserv, (Fluzone) 06/05/2010, 04/07/2011, 03/14/2012, 03/24/2013, 03/16/2014 TDAP (age 10 and older)(Boostrix) 07/07/2022 TDAP, Age 7 and older, IM (Adacel) 09/29/2010 Varicella Zoster Vaccine (Adult) 05/20/2017 Zoster Vaccine Recombinant (Shingrix) 06/14/2019, 12/04/2019 OBJECTIVE: BP 104/76 (BP Site: Left Arm, BP Position: Sitting, BP Cuff Size: Regular) | Pulse 63 | Temp 35.6 C (96.1 F) (Tympanic) | Resp 20 | Ht 1.626 m (5' 4") | Wt 79.4 kg (175 lb) | SpO2 96% | BMI 30.04kg/m | BSA 1.89 m PHYSICAL EXAM: General: alert, healthy, no distress, well developed Neck: supple, no adenopathy tracheostomy in place, no erythema surrounding Heart: regular rhythm and rate,No murmurs. Lungs: lungs clear to auscultation faint inspiratory rhonchi throughout the lung galvin Extremities: no edema Abdomen: Soft, non-tender, normal bowel sounds, no masses or organomegaly ASSESSMENT/PLAN: Hospital discharge follow-up (Primary) - DISCH MED RECON CUR MED LIS - PULMONARY REFERRAL OP COPD exacerbation (HCC) - DISCH MED RECON CUR MED LIS - PULMONARY REFERRAL OP Acute hypoxic respiratory failure (HCC) - DISCH MED RECON CUR MED LIS - PULMONARY REFERRAL OP Mucus plugging of bronchi - PULMONARY REFERRAL OP Tracheostomy status (HCC) - PULMONARY REFERRAL OP History of thyroid cancer Diabetes mellitus with proteinuria (HCC) Mixed hyperlipidemia Stage 3a chronic kidney disease (HCC) - BASIC METABOLIC PANEL; Future; Expected date: 04/19/2024 Postsurgical hypothyroidism - TSH WITH FREE T4 IF INDICATED; Future; Expected date: 04/19/2024 Adrenal nodule (HCC) Primary aldosteronism (HCC) Need for RSV vaccination - RSVPreF3 Vac Recomb Adjuvanted 120 MCG/0.5ML Intramuscular Suspension Reconstituted (Arexvy); Inject 0.5 mL into a large muscle once for 1 dose. COPD, group B, by GOLD 2017 classification (HCC) - RSVPreF3 Vac Recomb Adjuvanted 120 MCG/0.5ML Intramuscular Suspension Reconstituted (Arexvy); Inject 0.5 mL into a large muscle once for 1 dose. -nurse to do med rec. Patient advised to continue with medications given at discharge, currently not taking potassium supplements. Increase Prandin to 2.5 mg twice daily till blood sugars are less than 140 in the morning and less than 160 before each meal. To let correctional casework specialist know if she is not taking any of the medications listed as per discharge summary Follow-up: Return if symptoms worsen or fail to improve. | Check-out note: Labs 2 d before appt PCPin apr (This note was completed using the dictation program Fluency Direct. As such, there may be misspellings, word substitutions, or other variations that should not change the essence of the clinical content of this encounter note. If there is need for further clarification, please direct questions to the provider listed above.) Patient and / caregiver verbalizes understanding of above instructions and agrees with plan of care. Tierra Manrique MD 03/20/2024 documented in this encounter Nursing Notes * Marlena King MED ASSIST - 03/20/2024 10:14 AM EDT Mallory Soto presents for hospital follow up. She would like to wait until April for her flu vaccine. Would like to know if she is eligible for RSV prior to turning 71? Patient states that she isn't ulizing any nebulizer's and has finished the prednisone and antibiotics. Medications & HM reviewed. documented in this encounter Plan of Treatment Upcoming Encounters Date Type Department Care Team (Latest Contact Info) Description 03/27/2024 8:40 AM EDT Office Visit Endocrinology [address] [place], [place] [phone] Nhung Monzon MD [address] [place] [address] 03/29/2024 11:15 AM EDT Office Visit Orthopaedics [facility] [address] [place] [address] Javon Bunn DO [address] [place] [address] 04/24/2024 2:10 PM EDT Office Visit Pharmacy, [facility] [address] [facility] [place] [address] Pharmacist1, [facility] [address] [facility] [place] [address] 04/24/2024 2:40 PM EDT Office Visit General Internal Medicine [facility] [address] [facility] [place] [address] Orlin Castro MD [address] [facility] [place] [address] 04/27/2024 11:27 AM EDT Hospital Encounter [facility], Operating Room, [facility] - 4th Floor [address] [place] [id number] Raymond Campbell MD [address] [place] [address] 04/27/2024 11:27 AM EDT - 04/27/2024 12:17 PM EDT Surgery [facility], Operating Room, [facility] - 4th Floor [address] [place] [address] Raymond Campbell MD [address] [place] [address] COLONOSCOPY FLEXIBLE PROXIMAL DIAGNOSTIC 07/04/2024 9:20 AM EST Office Visit General Internal Medicine [facility] [address] [place] [address] Orlin Castro MD [address] [facility] [place] [address] 10/03/2024 8:40 AM EDT Office Visit Nephrology, [place] [place] [address] [facility] [place] [address] Galindo Jean MD [address] [facility] [place] [address] Scheduled Orders Name Type Priority Associated Diagnoses Orde r Schedule BASIC METABOLIC PANEL Lab Routine Stage 3a chronic kidney disease (HCC) Expected: 04/19/2024 (Approximate), Expires: 03/20/2025 TSH WITH FREE T4 IF INDICATED Lab Routine Postsurgical hypothyroidism Expected: 04/19/2024 (Approximate), Expires: 03/20/2025 Scheduled Procedures Name Priority Associated Diagnoses Date/Ti me COLONOSCOPY FLEXIBLE PROXIMAL DIAGNOSTIC Family history of colonic polyps 04/27/2024 11:27 AM EDT Scheduled Referrals Name Type Priority Associated Diagnoses Orde r Schedule PULMONARY REFERRAL OP Referral Within 10 days (routine) COPD exacerbation (HCC) Acute hypoxic respiratory failure (HCC) Hospital discharge follow-up Mucus plugging of bronchi Tracheostomy status (HCC) Ordered: 03/20/2024 Health Maintenance Due Date Last Done Comments Cologuard 2001 Fecal Occult Blood Test 2001 *COPD SEVERITY VERIFIED BY PFT 08/02/2019 Colonoscopy 12/18/2023 12/17/2022, 12/03, 08/30/2018, Additional history exists Colorectal Cancer Screening 12/18/2023 Influenza Vaccine (FLU shot) (#1) 2024 03/18/2023, 03/04/2022, 03/21/2021, Additional history exists TSH 03/15/2024 03/15/2023, 05/05, 03/06/2022, Additional history exists Diabetic Eye Exam 03/21/2024 01/12/2023, , 01/12/2023, Additional history exists Postponed from 01/13/2024 (Other) COVID-19 Vaccine ( season) 2024 04/07/2023, 07/07/2022, [...] Additional history exists CKD HGB USE SMARTSET 09987 01/12/202501/12, 01/13/2024, 08/03/2023, Additional history exists CKD PHOS USE SMARTSET 14483 01/12/202501/02, 08/23/2023, 08/03/2023, Additional history exists O2 [...] this encounter Medical Devices Implanted Type Area Ion Exchange Operator Device Identifier Shelf Expiration Date Model / Serial / Lot Stent Pancreatic Geenen 5fr - [id number] Implanted:Qty: 1 on 06/17/2010 at [place] [facility] [facility] [employer] 03/18/2013 [id number] / / [id number] Stent 10fr 7cm - [id number] Implanted:Qty: 1 on 06/17/2010 at [place] [facility] [place] [facility] : RADHA [place] 01/15/2013 [id number] / / [id number] Description:pancreas documented as of this encounter Visit Diagnoses Diagnosis Hospital discharge follow-up- Primary Other follow-up examination COPD exacerbation (HCC) Obstructive chronic bronchitis with exacerbation Acute hypoxic respiratory failure (HCC) Mucus plugging of bronchi Tracheostomy status (HCC) Tracheostomy status History of thyroid cancer Personal history of malignant neoplasm of thyroid Diabetes mellitus with proteinuria (HCC) Mixed hyperlipidemia Stage 3a chronic kidney disease (HCC) Postsurgical hypothyroidism Adrenal nodule (HCC) Other specified disorders of adrenal glands Primary aldosteronism (HCC) Hyperaldosteronism, unspecified Need for RSV vaccination Need for prophylactic vaccination and inoculation against respiratory syncytial virus COPD, group B, by GOLD 2017 classification (HCC) Family history of colonic polyps documented [...] Power of Attor tanika? No Care Teams College Archivist Relationship Specialty Start Date End Date Orlin Castro MD [address] [place] [address] PCP - General Internal Medicine 04/27/19 documented as of this encounter
--- OUTSIDE RECORDS SUMMARY | 2024-07-16 08:06 | External Medical Summary | Summary of Care ---
Author Name Unknown Organization [facility] Address [address] [place] [address] Phone [phone] Care Team Providers Care Chemical Production Technician Name Role Phone Orlin Castro MD [...] (HCC) Tierra Manrique MD [address] [facility] [address] Referral ID Status Reason Start Date Expiration Date Visits Requested Visits Authorized [id number] Authorized Specialty Services Required 03/20/2024 999 999 [...] Medicine [employer] [address] [place] [address] Tierra Manrique MD [address] [place] [address] [address] Hospital discharge follow-up*; COPD exacerbation (HCC); Acute hypoxic respiratory failure (HCC); Mucus plugging of bronchi; Tracheostomy status (HCC); History of thyroid cancer; Diabetes mellitus with proteinuria ([facility]); Mixed hyperlipidemia; Stage 3a chronic kidney disease ([facility]); Postsurgical hypothyroidism; Adrenal nodule ([facility]); Primary aldosteronism ([facility]); Need for RSV vaccination; COPD, group B, by GOLD 2017 classification ([facility]) Allergies Active Allergy Reactions Criticality Noted Date [...] s:COPD, group B, by GOLD 2017 classification ([facility]) Inhale via nebulizer 3 mL [...] hemoglobin A1c goal of less than 7.0% ([facility]) Use to test blood glucose [...] hemoglobin A1c goal of less than 7.0% ([facility]) TAKE ONE-HALF TABLET BY MOUTH EVERY DAY WITH EVENING SNACK 45 Tablet 3 4 Active RSVPreF3 Vac Recomb Adjuvanted 120 MCG/0.5ML Intramuscular Suspension Reconstituted (Arexvy)Indication s:Need for RSV vaccination,COPD, group B, by GOLD 2017 classification ([facility]) Inject 0.5 mL into a large muscle once for 1 dose. 0.5 mL 4 03/20/20 Active Compressor NebulizerIndicatio ns:COPD, group B, by GOLD 2017 classification ([facility]) Inhale via nebulizer . Use [...] No 06/22/2023 Does the household have a [facility] source of income? (Household - for [...] COPD, group B, by GOLD 2017 classification ([facility]) Obesity, Class I, BMI 30.0-34.9 (see actual BMI) Diabetes mellitus with proteinuria (HCC) Psoriasis Pancreatic duct dilated Adrenal nodule (HCC) Primary aldosteronism (HCC) Type 2 diabetes mellitus with stage 3 chronic kidney disease, without long-term current use of insulin (HCC) Stage 3 chronic kidney disease (HCC) Hypertensive kidney disease with chronic kidney disease stage III ([facility]) Current Outpatient Medications Medication Sig Dispense Refill [...] than 160 before each meal. To let spring encaser know if she is not taking any [...] [address] [place], [place] [id number] Nhung Monzon MD [address] [place] [address] 03/29/2024 11:15 AM EDT Office Visit Orthopaedics [facility] [address] [place] [address] Javon Bunn DO [address] [place] [address] 04/24/2024 2:10 PM EDT Office Visit Pharmacy, [facility] [address] [facility] [place] [address] Pharmacist1, [facility] [address] [facility] ON LICENSE OF [facility] [place] [address] 04/24/2024 2:40 PM EDT Office Visit General Internal Medicine [facility] [address] [facility] [place] [place] [address] Orlin Castro MD [address] [facility] ON LICENSE OF [facility] [place] [address] 04/27/2024 11:27 AM EDT Hospital Encounter [facility], Operating Room, [facility] - 4th Floor [address] [place] [id number] Raymond Campbell MD [address] [place] [address] 04/27/2024 11:27 AM EDT - 04/27/2024 12:17 PM EDT Surgery OR [facility], Operating Room, [facility] - 4th Floor [address] [place] [address] Raymond Campbell MD [address] [place] [address] COLONOSCOPY FLEXIBLE PROXIMAL DIAGNOSTIC 07/04/2024 9:20 AM EST Office Visit General Internal Medicine [facility] [address] [place] [address] Orlin Castro MD [address] [facility] [place] [address] 10/03/2024 8:40 AM EDT Office Visit Nephrology, Avni [facility] [address] [facility] [place] [address] Galindo Jean MD [address] [facility] [place] [place] [address] Scheduled Orders Name Type Priority Associated Diagnoses [...] Additional history exists CKD HGB USE SMARTSET 50237 01/12/202501/12, 01/13/2024, 08/03/2023, Additional history exists CKD PHOS USE SMARTSET 53319 01/12/202501/02, 08/23/2023, 08/03/2023, Additional history exists O2 [...] this encounter Medical Devices Implanted Type Area Road Freight Firer Device Identifier Shelf Expiration Date Model / Serial / Lot Stent Pancreatic Geenen 5fr - [id number] Implanted:Qty: 1 on 06/17/2010 at [facility] [employer] 03/18/2013 [id number] / / [id number] Stent 10fr 7cm - [id number] Implanted:Qty: 1 on 06/17/2010 at [facility] [employer] : RADHA [place] 01/15/2013 [id number] / / [id number] Description:pancreas documented as of this encounter Visit [...] Power of Attor tanika? No Care Teams Chemical Production Technician Relationship Specialty Start Date End Date Orlin Castro MD [address] [place] [address] PCP - General Internal Medicine 04/27/19 documented as of this encounter
--- NOTE | 2024-07-16 08:07 | Emergency Department Note ---
ED Visit Note I was consulted by the Advanced Practice Provider Sandip Zuleta PA-C. I performed a substantive portion of the visit including all aspects of medical decision making. .
--- NOTE | 2024-07-16 08:34 | Emergency Department Note ---
History of Present Illness General Chief complaint: Shortness of Breath/Dyspnea Time Seen by Provider: 07/16/24 08:03 History of Present Illness Maximum Pain Intensity: 3 This 68-year-old female With a history of chronic kidney disease, acute respiratory failure, type 2 diabetes, COPD, sepsis, tracheostomy after laryngectomy, hypertension, DVT, psoriasis, osteoarthritis, elevated lipids, history of throat and thyroid cancer, history of pancreatic cancer, and recurrent hypoxia,presents today for evaluation of shortness of breath, cough, and chest irritation. She arrives by ALS ambulance from home. She has a history of tracheostomy. Patient states she was seen by her PCP on for shortness of breath and cough. She was started on 2 antibiotics, Bactrim and doxycycline. Her cough and shortness of breath have become worse. she denies any current fever, chills, sweats, nausea, vomiting, or diarrhea. No headache or ear pain. She has a frequent vigorous cough and is visibly uncomfortable. She was last seen for similar symptoms in March, and required admission. Home Medications Medication Instructions Recorded Confirmed Type losartan 100 mg tablet (Cozaar) 100 mg PO QAM 08/09/19 07/16/24 History repaglinide 1 mg tablet 0.5 mg PO UD 11/27/21 07/16/24 History amlodipine 10 mg tablet 10 mg PO QAM 07/30/22 07/16/24 History blood-glucose sensor (Dexcom G6 07/30/22 06/16/23 History Sensor device) carvedilol 25 mg tablet 25 mg PO BID 07/30/22 07/16/24 History levothyroxine 200 mcg tablet 200 mcg PO DAILYBB 07/30/22 07/16/24 History cyclobenzaprine 10 mg tablet 10 mg PO HS PRN Muscle Spasm 10/15/22 07/16/24 History cyanocobalamin (vitamin B-12) 1,000 mcg PO DAILY 06/16/23 07/16/24 History 1,000 mcg tablet (Vitamin B-12) ezetimibe 10 mg tablet 10 mg PO QAM 06/16/23 07/16/24 History ipratropium 0.5 mg-albuterol 3 mg 3 ml inhalation Q6 PRN Shortness 06/16/23 07/16/24 History (2.5 mg base)/3 mL nebulization Of Breath Or Wheezing soln ferrous sulfate 325 mg (65 mg 325 mg PO TID 01/23/24 07/16/24 History iron) tablet metformin 500 mg tablet,extended 500 mg PO BID 01/23/24 07/16/24 History release 24 hr pantoprazole 40 mg tablet,delayed 40 mg PO DAILY 01/23/24 07/16/24 History release repaglinide 2 mg tablet 2 mg PO BIDM 01/23/24 07/16/24 History guaifenesin 600 mg tablet, 1,200 mg (2 x 600 mg) PO BID #20 03/14/24 07/16/24 Rx extended release 12 hr (Mucinex) tabs albuterol sulfate 90 mcg/actuation 1 - 2 puff inhalation Q6H PRN 07/16/24 07/16/24 History aerosol inhaler SOB/WHEEZING beclomethasone dipropionate 40 1 inh inhalation DAILY 07/16/24 07/16/24 History mcg/actuation HFA breath activated aerosol (Qvar RediHaler) sodium chloride 7 % for See Rx Instructions .ROUTE 07/16/24 07/16/24 History nebulization .COMPLEX PRN SOB tiotropium bromide 2.5 1 puff inhalation DAILY 07/16/24 07/16/24 History mcg/actuation mist for inhalation (Spiriva Respimat) Allergies Allergy/AdvReac Type Severity Reaction Status Date / Time zolpidem [From Ambien] Allergy Severe pysch Verified 07/16/24 09:24 complications, dizzy NSAIDS (Non-Steroidal Allergy Intermediate Ulcer & Verified 07/16/24 09:24 Anti-Inflamma anemia hydrochlorothiazide AdvReac Intermediate Acute Verified 07/16/24 09:24 kidney injury rosuvastatin [From Crestor] AdvReac Intermediate Elavated Verified 07/16/24 09:24 liver function test Past Med/Surg History Problem List (Updated 07/16/24 @ 21:09 by Sandip Zuleta PA-C) Acute exacerbation of chronic obstructive pulmonary disease (Acute) Hypoxic (Acute) Shortness of breath (Acute) Acute respiratory failure with hypoxia Acute kidney injury superimposed on CKD Type 2 diabetes mellitus Diabetes mellitus type 2, controlled, without complications Acute respiratory failure due to COVID-19 Acute exacerbation of chronic obstructive airways disease (Acute) Sepsis Hypoxia (Acute) COPD exacerbation (Acute) Tracheobronchitis, acute or subacute, with bronchospasm or obstruction (Acute) Profound anemia Tracheostomy in place (Acute) Encounter for pre-operative examination Familial adenomatous polyposis Hypertensive urgency Acute exacerbation of chronic obstructive pulmonary disease (COPD) Hypoxia (Acute) Hypertension (Acute) SOB (shortness of breath) (Acute) Wheezing (Acute) ALONA (acute kidney injury) (Acute) Metabolic acidosis Asthma exacerbation Acute kidney injury H/O deep venous thrombosis Psoriasis Hypoxia (Acute) URI (upper respiratory infection) Status post tracheostomy Acute and chronic respiratory failure with hypoxia COPD with acute exacerbation Acute bronchitis Multiple pulmonary nodules Osteoarthritis of knees, bilateral Stenosis of tracheal stoma CKD (chronic kidney disease), stage III Chronic obstructive pulmonary disease Diabetes History of Whipple procedure X 2-LAST 2012 Hyperlipidemia Hypertension History of thyroid cancer Papillary thyroid carcinoma (with throat cancer per patient) 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 S/p stomaplasty (11/2020) and tracheostoma revision (05/2021) S/p thyroidectomy No chemo or XRT History of throat cancer Dxed 2006- s/p laryngectomy with trach placement No chemo or XRT History of pancreatic cancer 2016 S/p Whipple procedure No chemo or XRT Hypoxia Medical History Coagulopathy Hypothyroidism associated with surgical procedure Adrenal adenoma History of colon cancer Dx'ed in 2002 (has familial adenomatous polyposis) S/p ileostomy and then J pouch procedure No chemo or XRT Tracheostomy in place No current issues DVT (deep venous thrombosis) WITH SURGERY TRACH 2004-WAS ON BLOOD THINNER FOR A PERIOD OF TIME-THEN OFF-NO ISSUES SINCE Murmur, cardiac F/U DR DEE ACEVEDO No murmur per routine 06/2021 cardio visit SOB (shortness of breath) on exertion Asthma Surgical History History of hernia repair 12/15/21 @ [facility] History of radical neck dissection WITH TRACHEOSTOMY-2004 History of bowel resection WITH J POUCH History of colonoscopy History of esophagogastroduodenoscopy (EGD) History of thyroidectomy Family History Family/Other Heart disease Lung disease Cancer Father Family hx of colon cancer Sister Family hx of colon cancer Other No family history of adverse response to anesthesia Social History Smoking Status: Current some day smoker Tobacco Type: Cigarettes Second Hand Exposure: No; Do You Dip or Chew Tobacco: No; Hx Alcohol Use: No Hx Substance Use: Yes Last Used Substance: Unknown Preferred Language: Macedonian Communication Ability: Effective Communication Ability Comment: Patient uses a Cervox since she has 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 School Office Assistant Required: No Beliefs That Will Affect Care: None marital status: Current Living Situation: Alone current occupational status: disabled Other Information That Helps Us Care for You: No Feels Safe at Home: Yes Safety Concerns: Feels Safe At This Time Assistive Devices: Glasses Review of Systems A total of 10 systems reviewed and were otherwise negative Physical Exam Vital Signs Vital Signs - 24 hr 07/16/24 08:05 07/16/24 08:05 07/16/24 08:22 Temperature 36.8 C Temperature Source Oral Pulse Rate 87 102 H Pulse Rate [Left Finger] Respiratory Rate 30 H Respiratory Effort / Characteristics Labored Short of Breath Labored Respiratory Pattern Irregular Blood Pressure 167/91 H Blood Pressure [Left Arm] Blood Pressure Mean 116 Blood Pressure Mean [Left Arm] Blood Pressure Position Sitting Pulse Oximetry 93 Oxygen Delivery Method Room Air Room Air Sepsis Recent Fever Within 48 Hours No Sepsis New/Unexplained Change in Mental Status No Sepsis Action Taken by Nursing No Action Required 07/16/24 10:40 07/16/24 12:00 Temperature Temperature Source Pulse Rate Pulse Rate [Left Finger] 72 72 Respiratory Rate 18 18 Respiratory Effort / Characteristics Respiratory Pattern Blood Pressure Blood Pressure [Left Arm] 142/76 H 152/75 H Blood Pressure Mean Blood Pressure Mean [Left Arm] 98 100 Blood Pressure Position Pulse Oximetry 98 94 Oxygen Delivery Method Room Air Sepsis Recent Fever Within 48 Hours Sepsis New/Unexplained Change in Mental Status Sepsis Action Taken by Nursing General: Well-developed, well-nourished, middle-aged female, in no acute distress. Obvious discomfort. Sitting on the bed. Alert and oriented. tracheostomy is in place. She has a frequent vigorous cough and is visibly uncomfortable. Skin: Warm and dry with good turgor. No rashes. No visible edema. HEENT: Normocephalic atraumatic. Eyes PERRLA, EOMI. No conjunctiva or scleral injection. Ears TMs occluded bilaterally with cerumen. Nares patent bilaterally without turbinate enlargement. No significant drainage. No epistaxis. Oropharynx without erythema or exudate. Uvula midline, oral mucosa moist. No lesions present. Lymphatics are palpated without anterior or posterior chain enlargement or tenderness. Tracheostomy tube is in place. Heart: Heart RRR. No MGR. Peripheral pulses are 2+. Lungs: The patient has inspiratory and expiratory rhonchi present in all galvin. No crackles or wheezing. Fair air movement. She is tachypneic. Abdomen: Abdomen was inspected, auscultated, and palpated. Bowel sounds present x 4. Soft, nontender to palpation. No hepato-splenomegaly. No masses noted. No rebound. Musculoskeletal: Gross motor function of the upper and lower extremities is intact and unremarkable. Neurologic: Gross sensation is intact across the upper and lower extremities by soft touch. Course Administered Medications Albuterol (Albut/Ipratrop 3mg/0.5mg Neb 3 Ml Vial) 3 ml NEB QIDR [facility]; Protocol Stop: 08/15/24 14:59 Last Admin: 07/16/24 19:45 Dose: Not Given Documented By: Admin: 07/16/24 15:21 Dose: 3 ml Documented By: JIMMIE Budesonide (Budesonide 0.25 Mg/2 Ml Vial (Pulmicort)) 0.25 mg NEB BIDR [facility] Stop: 08/15/24 18:59 Last Admin: 07/16/24 19:45 Dose: 0.25 mg Documented By: SANJANA Carvedilol (Carvedilol 25 Mg Tab) 25 mg PO BIDM [facility] Stop: 08/15/24 16:59 Last Admin: 07/16/24 17:25 Dose: 25 mg Documented By: JULIET Cyclobenzaprine HCl (Cyclobenzaprine Hcl 10 Mg Tab) 10 mg PO HS PRN PRN Reason: Muscle Spasm Stop: 08/15/24 14:21 Last Admin: 07/16/24 17:28 Dose: 10 mg Documented By: JULIET Enoxaparin Sodium (Enoxaparin Inj 40 Mg/0.4 Ml Syr) 40 mg SQ Q24H [facility] Stop: 08/15/24 14:59 Last Admin: 07/16/24 15:42 Dose: 40 mg Documented By: RNC Ferrous Sulfate (Ferrous Sulfate 325 Mg Tab) 325 mg PO TID [facility] Stop: 08/15/24 14:44 Last Admin: 07/16/24 20:28 Dose: 325 mg Documented By: Admin: 07/16/24 15:41 Dose: 325 mg Documented By: RNC Formoterol Fumarate (Formoterol 20 Mcg/2 Ml Vial) 20 mcg NEB BIDR [facility] Stop: 08/15/24 18:59 Last Admin: 07/16/24 19:45 Dose: 20 mcg Documented By: SANJANA Guaifenesin (Guaifenesin 600 Mg Tabcr) 1,200 mg PO Q12 [facility] Stop: 08/15/24 20:59 Last Admin: 07/16/24 20:28 Dose: 1,200 mg Documented By: JOSE Doxycycline Hyclate 100 mg/ (Dextrose) 100 mls @ 50 mls/hr IV Q12H [facility] Stop: 07/21/24 14:59 Last Infusion: 07/16/24 17:43 Dose: Infused Documented By: RNHan Admin: 07/16/24 15:43 Dose: 50 mls/hr Documented By: RNC Ceftriaxone Sodium (Rocephin) 2,000 mg in 50 mls @ 100 mls/hr IV Q24H [facility] Stop: 07/21/24 14:59 Last Infusion: 07/16/24 16:12 Dose: Infused Documented By: Admin: 07/16/24 15:42 Dose: 100 mls/hr Documented By: JULIET Methylprednisolone 40 mg/ (Syringe) 0.64 mls @ 1.5 mls/min IV Q8H [facility] Stop: 08/15/24 15:59 Last Admin: 07/16/24 15:42 Dose: 1.5 mls/min Documented By: RNC Insulin Aspart (Insulin Aspart Per Unit Charge) 0 units SC ACHS [facility] Stop: 08/15/24 16:29 Last Admin: 07/16/24 20:43 Dose: 4 units Documented By: JOSE Co-signed By: GIA Admin: 07/16/24 17:03 Dose: 9 units Documented By: RNHan Co-signed By: MARLENA Insulin Glargine (Lantus Per Unit Charge) 10 units SQ BID [facility] Stop: 08/15/24 20:59 Last Admin: 07/16/24 20:44 Dose: 10 units Documented By: JOSE Co-signed By: GIA Lactobacillus Acidophilus (Advanced Probiotic 625 Mg Capsule) 1,250 mg PO DAILY [facility] Stop: 08/15/24 14:21 Last Admin: 07/16/24 15:39 Dose: 1,250 mg Documented By: RNC Losartan Potassium (Losartan Potassium 50 Mg Tab) 100 mg PO QAM [facility] Stop: 08/15/24 14:44 Last Admin: 07/16/24 15:41 Dose: 100 mg Documented By: RNC Sodium Chloride (Sodium Chlor 7% 4 Ml Neb) 4 ml NEB BIDR [facility] Stop: 08/15/24 18:59 Last Admin: 07/16/24 19:45 Dose: 4 ml Documented By: SANJANA Discontinued Medications Albuterol (Albut/Ipratrop 3mg/0.5mg Neb 3 Ml Vial) 3 ml NEB NOW STA; Protocol Stop: 07/16/24 12:34 Last Admin: 07/16/24 12:46 Dose: 3 ml Documented By: ELIE Amlodipine Besylate (Amlodipine Besylate 5 Mg Tab) 10 mg PO ONE ONE Stop: 07/16/24 12:52 Last Admin: 07/16/24 15:40 Dose: 10 mg Documented By: ARELYC Budesonide (Budesonide 0.25 Mg/2 Ml Vial (Pulmicort)) 0.25 mg NEB ONE ONE Stop: 07/16/24 16:01 Last Admin: 07/16/24 15:20 Dose: 0.25 mg Documented By: JIMMIE Carvedilol (Carvedilol 25 Mg Tab) 25 mg PO NOW ONE Stop: 07/16/24 12:35 Last Admin: 07/16/24 13:14 Dose: 25 mg Documented By: NELLA Guaifenesin (Guaifenesin 600 Mg Tabcr) 1,200 mg PO ONE ONE Stop: 07/16/24 12:34 Last Admin: 07/16/24 12:40 Dose: 1,200 mg Documented By: ALIVIA Piperacillin Sod/Tazobactam Sod (Zosyn) 4.5 gm in 100 mls @ 200 mls/hr IV NOW ONE; Protocol Stop: 07/16/24 09:24 Last Infusion: 07/16/24 10:35 Dose: Infused Documented By: Admin: 07/16/24 10:05 Dose: 200 mls/hr Documented By: NELLA Methylprednisolone (Methylprednisolone 125 Mg/2 Ml Vial) 60 mg IV NOW STA Stop: 07/16/24 08:27 Last Admin: 07/16/24 09:17 Dose: 60 mg Documented By: ALIVIA Sodium Chloride (Sodium Chlor 7% 4 Ml Neb) 4 ml NEB ONE ONE Stop: 07/16/24 12:34 Last Admin: 07/16/24 12:46 Dose: 4 ml Documented By: [facility] Medical Decision Making Differential Diagnosis Pneumonia, bronchitis, COPD exacerbation, asthma exacerbation, foreign body obstruction Medical Records Attestation: I reviewed the patient's medical records. Home Medications Current Medication List: was personally reviewed by me Laboratory Data CBC obtained today shows an elevated white count at 11.5. Normal H&H. Elevated platelets. Chemistry panel obtained today shows normal sodium and potassium. Chloride elevated at 113 and CO2 low at 17. BUN of 20 with creatinine elevated at 1.26. lactate and magnesium are normal. Troponin and procalcitonin are also within normal limits. Nasal MRSA screen is negative. BioFire viral swab was also unremarkable. 07/16/24 08:49 07/16/24 08:49 Lab Results 07/16/24 07/16/24 07/16/24 Range/Units 08:11 08:49 10:05 WBC 11.50 H (4.8-10.8) K/ul RBC 5.39 (4.20-5.40) M/uL Hgb 14.9 (12.0-16.0) g/dl Hct 44.5 (37.0-47.0) % MCV 82.6 (80.0-100.0) fL MCH 27.6 (25.0-34.0) pg MCHC 33.5 (32.0-36.0) g/dL RDW Std Deviation 41.0 (36.4-46.3) fL RDW Coeff of Monika 13.8 (11.5-14.5) % Plt Count 414 H (130-400) K/uL MPV 9.9 (9.4-12.4) fL Immature Gran % (Auto) 0.5 % Neut % (Auto) 76.6 % Lymph % (Auto) 13.4 % Frio % (Auto) 4.8 % Eos % (Auto) 3.8 % Baso % (Auto) 0.9 % Neut # (Auto) 8.81 H (1.40-6.50) K/uL Lymph # (Auto) 1.54 (1.20-3.40) K/uL Frio # (Auto) 0.55 (0.11-0.59) K/uL Eos # (Auto) 0.44 (0.00-0.50) K/uL Baso # (Auto) 0.10 (0.00-0.20) K/uL Immature Gran # (Auto) 0.06 (0.01-0.20) K/uL Sodium 140 (136-145) mmol/L Potassium 4.0 (3.5-5.1) mmol/L Chloride 113 H (98-107) mmol/L Carbon Dioxide 17 L (21-32) mmol/L Anion Gap 10 (3-11) BUN 20 (6-23) mg/dl Creatinine 1.26 H (0.6-1.2) mg/dl Est Cr Clr Drug Dosing 46.5 ml/min eGFR 46.79 BUN/Creatinine Ratio 15.9 (10-20) Glucose 169 H (70-99(Fasting)) mg/dl Lactate 0.8 (0.4-2.0) mmol/L Calcium 8.7 (8.6-10.3) mg/dl Magnesium 1.8 (1.7-2.4) mg/dl Total Bilirubin 0.6 (0.2-1.0) mg/dl Direct Bilirubin TNP AST 26 (13-39) U/L ALT 31 (7-52) U/L Alkaline Phosphatase 181 H (34-104) U/L Troponin I High Sens 7.4 (0-14) pg/ml Total Protein 7.7 (6.0-8.3) gm/dl Albumin 4.4 (3.4-5.0) gm/dl Procalcitonin 0.09 (0-0.5) ng/ml Nasal Screen MRSA (PCR) Negative (Negative) Adenovirus (PCR) Not Detected (NotDetected) B. pertussis DNA (PCR) Not Detected (NotDetected) B.parapertussis DNA PCR Not Detected (NotDetected) C. pneumoniae DNA (PCR) Not Detected (NotDetected) Coronavirus OC43 (PCR) Not Detected (NotDetected) Coronavirus HKU1 (PCR) Not Detected (NotDetected) Coronavirus 229E (PCR) Not Detected (NotDetected) SARS-CoV-2 (PCR) Not Detected (NotDetected) Coronavirus NL63 (PCR) Not Detected (NotDetected) Human Metapneumovir PCR Not Detected (NotDetected) Influenza Type A (PCR) Not Detected (NotDetected) Influenza Type B (PCR) Not Detected (NotDetected) M. pneumoniae (PCR) Not Detected (NotDetected) Parainfluenza 1 (PCR) Not Detected (NotDetected) Parainfluenza 2 (PCR) Not Detected (NotDetected) Parainfluenza 3 (PCR) Not Detected (NotDetected) Parainfluenza 4 (PCR) Not Detected (NotDetected) RSV (PCR) Not Detected (NotDetected) Entero/Rhino (PCR) Not Detected (NotDetected) Imaging Data My Impression: Chest x-ray obtained today was interpreted by me and read by radiology. The lungs are clear. No evidence of pleural effusion or pneumothorax. No consolidation. No evidence of pneumonia. Radiologist's Impression: Chest X-Ray 07/16/24 08:21 XR chest 1V portable CLINICAL HISTORY: Sepsis TECHNIQUE: Single frontal radiograph of the chest was obtained. Comparison: Comparison is made to chest radiograph 03/13/2024 FINDINGS: No lines and tubes are seen. The cardiomediastinal silhouette is normal. The lungs are clear. No evidence of pleural effusion or pneumothorax. IMPRESSION: No acute abnormalities and in particular no radiographic evidence of pneumonia. ACT 112: Negative or not required by law. Electronically signed by: Adriel Orantes M.D. 07/16/2024 9:35 AM ECG Data Additional Comments: EKG obtained today was reviewed with Dr. Bhatia. It shows a normal sinus rhythm with a rate of 92. Slight QRS axis shift when compared to her EKG from March 2024. Blood Pressure Blood Pressure Findings: Elevated blood pressure Blood Pressure Disposition: further management by hospitalist CLAYTON Narrative the patient was evaluated in room B10. Conservative care measures were discussed. She was already given a DuoNeb in the ambulance en-route. IV was established. Labs were obtained. She was placed on a cardiac cath technician and remained in normal sinus rhythm with a rate in the 80s. No ectopy was noted. She was borderline hypoxic at 90% on room air. Oxygen was supplemented at 2 L by mask over her trachea with oxygen saturations in the 94 to 96%. Her lab work was relatively unremarkable. White count was mildly elevated. Chest x-ray obtained today showed no consolidation. Given her difficulty breathing and failure of outpatient antibiotics, admission was recommended. Respiratory team was contacted and performed suctioning of the patient's trachea. Cultures were obtained. Blood cultures were also obtained. After suctioning, the patient had much less coughing and was visibly more comfortable. She was given IV Zosyn 4.5 g. She was also given Solu-Medrol 60 mg IV. I suspect without continued IV antibiotics, her mucus will reaccumulate. She was agreeable to admission. [facility] service was consulted. Please see their dictation for final management. The patient remained stable while in the ED. Care plan was discussed at length with Dr. Bhatia. Impression & Plan Acute exacerbation of chronic obstructive pulmonary disease Admit for further respiratory care and IV antibiotics. Discharge Plan Visit Data Chief Complaint: Shortness of Breath/Dyspnea ED Provider: Zoran Bhatia ED Midlevel Provider: Sandip Zuleta Discharge Problem: Acute exacerbation of chronic obstructive pulmonary disease Patient Disposition: Admitted As Inpatient Discharge Instructions Interventions: ED Discharge Assessment Last Done: 07/16/24 13:39
[2024-07-16 09:04] LABS: Basophils % (auto) 0.9 %; Eosinophils # (auto) 0.44 K/uL (0.00-0.50); Eosinophils % (auto) 3.8 %; Hematocrit (blood only) 44.5 % (37.0-47.0); Hemoglobin 14.9 g/dl (12.0-16.0); Immature Granulocytes # (auto) 0.06 K/uL (0.01-0.20); Immature Granulocytes % (auto) 0.5 %; Lymphocytes # (auto) 1.54 K/uL (1.20-3.40); Lymphocytes % (auto) 13.4 %; Mean Corpuscular Hemoglobin 27.6 pg (25.0-34.0); Mean Corpuscular Hgb Conc 33.5 g/dL (32.0-36.0); Mean Corpuscular Volume 82.6 fL (80.0-100.0); Mean Platelet Volume 9.9 fL (9.4-12.4); Monocytes # (auto) 0.55 K/uL (0.11-0.59); Monocytes % (auto) 4.8 %; Neutrophils # (auto) 8.81 K/uL (1.40-6.50); Neutrophils % (auto) 76.6 %; Platelet Count 414 K/uL (130-400); RDW Coefficient of Variation 13.8 % (11.5-14.5); Red Blood Count 5.39 M/uL (4.20-5.40)
[2024-07-16] MEDS: methylPREDNISolone 125 MG/2 ML VIAL IV STA (09:17)
[2024-07-16 09:29] LABS: Alanine Aminotransferase 31 U/L (7-52); Albumin Level 4.4 gm/dl (3.4-5.0); Alkaline Phosphatase 181 U/L (34-104); Anion Gap 10 (3-11); Aspartate Aminotransferase 26 U/L (13-39); BUN Creatinine Ratio 15.9 (10-20); Bilirubin,Total 0.6 mg/dl (0.2-1.0); Blood Urea Nitrogen 20 mg/dl (6-23); Calcium 8.7 mg/dl (8.6-10.3); Carbon Dioxide 17 mmol/L (21-32); Chloride 113 mmol/L (98-107); Creatinine Clr Calc Pharmacy 46.5 ml/min; Glucose 169 mg/dl (70-99(Fasting)); Magnesium 1.8 mg/dl (1.7-2.4); Sodium 140 mmol/L (136-145); Total Protein 7.7 gm/dl (6.0-8.3)
[2024-07-16 09:33] LABS: Troponin I High Sensitivity 7.4 pg/ml (0-14)
--- NOTE | 2024-07-16 09:36 | XRay Report ---
XR chest 1V portable CLINICAL HISTORY: Sepsis TECHNIQUE: Single frontal radiograph of the chest was obtained. Comparison: Comparison is made to chest radiograph 03/13/2024 FINDINGS: No lines and tubes are seen. The cardiomediastinal silhouette is normal. The lungs are clear. No evid ence of pleural effusion or pneumothorax. IMPRESSION: No acute abnormalities and in particular no radiographic evidence of pneumonia. ACT 112: Negative or not required by law. Electronically signed by: Adriel Orantes M.D. 07/16/2024 9:35 AM
[2024-07-16 10:04] LABS: Adenovirus PCR Not Detected (NotDetected); Bordetella parapertussis PCR Not Detected (NotDetected); Bordetella pertussis PCR Not Detected (NotDetected); Chlamydia pneumoniae PCR Not Detected (NotDetected); Coronavirus 229E PCR Not Detected (NotDetected); Coronavirus CoV-2 (COVID19)PCR Not Detected (NotDetected); Coronavirus HKU1 PCR Not Detected (NotDetected); Coronavirus NL63 PCR Not Detected (NotDetected); Coronavirus OC43PCR Not Detected (NotDetected); Human Metapneumovirus PCR Not Detected (NotDetected); Influenza A PCR Not Detected (NotDetected); Influenza B PCR Not Detected (NotDetected); Mycoplasma pneumoniae PCR Not Detected (NotDetected); Parainfluenza Virus 1 PCR Not Detected (NotDetected); Parainfluenza Virus 2 PCR Not Detected (NotDetected); Parainfluenza Virus 3 PCR Not Detected (NotDetected); Parainfluenza Virus 4 PCR Not Detected (NotDetected); Respiratory Syncytial VirusPCR Not Detected (NotDetected); Rhinovirus/Enterovirus PCR Not Detected (NotDetected)
[2024-07-16] MEDS: PIPERACILLIN/TAZOBACTAM 4.5 GM/100 ML BAG IV ONE (10:05)
--- NOTE | 2024-07-16 11:49 | History & Physical Report ---
Date of Service July 16, 2024 Assessment & Plan (1) COPD exacerbation: (2) Tracheostomy in place: Plan: Patient is 68 year old female with PMH thyroid cancer s/p laryngectomy with tracheostomy, post surgical hypothyroidism, pancreatic cancer s/p Whipple proc edure, history colon CA s/p surgery, history Gross syndrome, DM II, COPD, h/o DVT status post surgical procedure, HTN, HLD, lung nodules and others listed below presented to ER with c/o SOB x 1 day. Reports had neb by EMS and feels less SOB while in ER Per 07/13/24 Pulmonology outpatient note: Status post FOB 05/03/2024: 05/03/24: Bronchial washing/isolates show MAC infection/Fungal and Bacterial Isolates. Staph aureus and Corynebacterium isolates which are sensitive to: Bactrim,Tetracycline, oxacillin. (Isolates are resistant to clindamycin and erythromycin). 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 MAC isolates reported from bronchoscopy 05/03/2024. In ER afebrile, P: 87, R: 30, BP: 167/91, 93% on RA WBC: 11.5. negative lactate, procalcitonin and troponin. Negative respiratory biofire panel. negative nasal MRSA swab CXR: no infiltrate In ER given solumedrol 60mg IV, zosyn Sputum culture pending Suction as needed Incentive spirometry, flutter valve Mucinex Duonebs, hypertonic saline neb, formoterol neb, Budesonide neb Solumedrol 40mg IV Q8H Patient is on day 2 of 10 of doxycycline for 05/03/24 bronchial washings +MAC infection and Staph aureus and Corynebacterium isolates. She was to start 10 day course of Bactrim in 08/2024 Will continue doxycycline and add Rocephin If no improvement consider pulmonology consult CBC, BMP in am (3) Hypertension: Plan: BPs elevated in ER 167/91 Give home BP meds and monitor Continue amlodipine, carvedilol, losartan (4) Type 2 diabetes mellitus: Plan: A1c: 7.7 pn 05/16/24 Hold home oral glycemic agents Basal bolus insulin per protocol (5) CKD (chronic kidney disease), stage III: Plan: Cr: 1.26. Baseline Cr: 1.0-1.1 Avoid nephrotoxic agents when possible Monitor renal functions (6) History of thyroid cancer: Plan: #Post surgical hypothyroidism Continue levothyroxine (7) History of pancreatic cancer: Plan: S/P surgery #History colon cancer #History Gross syndrome S/P surgery DVT Prophylaxis Lovenox Admit telemetry Full Code as per discussion with pt Follows with Dr Castro for routine care Pt was seen and care coordinated with Dr Murillo. See addendum I spent a total of 73 minutes reviewing notes, outpatient records, labs, medication, coordinating, documenting and providing care for this patient excluding time spent in the performance of separately billed services. History of Present Illness Chief Complaint: SOB Primary Care Provider: Orlin Castro MD Patient is 68 year old female with PMH thyroid cancer s/p laryngectomy with tracheostomy, post surgical hypothyroidism, pancreatic cancer s/p Whipple procedure, history colon CA s/p surgery, history Gross syndrome, DM II, COPD, h/o DVT status post surgical procedure, HTN, HLD, lung nodules and others listed below presented to ER with c/o SOB x 1 day. Patient states yesterday started with cough, wheezing and SOB. Tried her albuterol at home with limited relief. Today she states felt like "mucous stuck in there and couldn't get it out". She reports EMS gave a neb and since ER arrival is having less SOB. Denies ill contacts. Patient saw pulmonology, Dr Contreras, on 07/13/24 for routine follow up and was prescribed doxycycline x 10 days and has taken 4 doses so far and she is to start Bactrim x 10 days to start in August for her 05/03/24 bronchial lavage findings of staph aureus and corynebacterium. She states she was feeling well at that pulm visit and was not having any symptoms. Denies fever/chills, diaphoresis, N/V/D/C, LOPEZ, dizziness, syncope, neck pain, CP, palpitations, rhinorrhea, abdominal pain, paresthesias, weakness, extremity edema, rashes, urinary symptoms. Per 07/13/24 Pulmonology outpatient note: Status post FOB 05/03/2024: Bronchial washing/isolates show MAC infection/Fungal and Bacterial Isolates Staph aureus and Corynebacterium isolates which are sensitive to: Bactrim,Tetracycline , oxacillin. (Isolates are resistant to clindamycin and erythromycin). 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 MAC isolates reported from bronchoscopy 05/03/2024. Allergies Allergy/AdvReac Type Severity Reaction Status Date / Time zolpidem [From Ambien] Allergy Severe pysch Verified 07/16/24 09:24 complications, dizzy NSAIDS (Non-Steroidal Allergy Intermediate Ulcer & Verified 07/16/24 09:24 Anti-Inflamma anemia hydrochlorothiazide AdvReac Intermediate Acute Verified 07/16/24 09:24 kidney injury rosuvastatin [From Crestor] AdvReac Intermediate Elavated Verified 07/16/24 09:24 liver function test Home Medications Medication Instructions Recorded Confirmed Type losartan 100 mg tablet (Cozaar) 100 mg PO QAM 08/09/19 07/16/24 History repaglinide 1 mg tablet 0.5 mg PO UD 11/27/21 07/16/24 History amlodipine 10 mg tablet 10 mg PO QAM 07/30/22 07/16/24 History blood-glucose sensor (Dexcom G6 07/30/22 06/16/23 History Sensor device) carvedilol 25 mg tablet 25 mg PO BID 07/30/22 07/16/24 History levothyroxine 200 mcg tablet 200 mcg PO DAILYBB 07/30/22 07/16/24 History cyclobenzaprine 10 mg tablet 10 mg PO HS PRN Muscle Spasm 10/15/22 07/16/24 History cyanocobalamin (vitamin B-12) 1,000 mcg PO DAILY 06/16/23 07/16/24 History 1,000 mcg tablet (Vitamin B-12) ezetimibe 10 mg tablet 10 mg PO QAM 06/16/23 07/16/24 History ipratropium 0.5 mg-albuterol 3 mg 3 ml inhalation Q6 PRN Shortness 06/16/23 07/16/24 History (2.5 mg base)/3 mL nebulization Of Breath Or Wheezing soln ferrous sulfate 325 mg (65 mg 325 mg PO TID 01/23/24 07/16/24 History iron) tablet metformin 500 mg tablet,extended 500 mg PO BID 01/23/24 07/16/24 History release 24 hr pantoprazole 40 mg tablet,delayed 40 mg PO DAILY 01/23/24 07/16/24 History release repaglinide 2 mg tablet 2 mg PO BIDM 01/23/24 07/16/24 History guaifenesin 600 mg tablet, 1,200 mg (2 x 600 mg) PO BID #20 03/14/24 07/16/24 Rx extended release 12 hr (Mucinex) tabs albuterol sulfate 90 mcg/actuation 1 - 2 puff inhalation Q6H PRN 07/16/24 History aerosol inhaler SOB/WHEEZING beclomethasone dipropionate 40 1 inh inhalation DAILY 07/16/24 07/16/24 History mcg/actuation HFA breath activated aerosol (Qvar RediHaler) sodium chloride 7 % for See Rx Instructions .ROUTE 07/16/24 07/16/24 History nebulization .COMPLEX PRN SOB tiotropium bromide 2.5 1 puff inhalation DAILY 07/16/24 07/16/24 History mcg/actuation mist for inhalation (Spiriva Respimat) hydralazine 50 mg tablet 50 mg PO TID #90 tabs 07/17/24 Rx Past Med/Surg History Problem List (Updated 07/17/24 @ 08:29 by Conner Tsai MD) Mucus plugging of bronchi Acute hypoxemic respiratory failure Acute exacerbation of chronic obstructive pulmonary disease (Acute) Hypoxic (Acute) Shortness of breath (Acute) Acute respiratory failure with hypoxia Acute kidney injury superimposed on CKD Type 2 diabetes mellitus Diabetes mellitus type 2, controlled, without complications Acute respiratory failure due to COVID-19 Acute exacerbation of chronic obstructive airways disease (Acute) Sepsis Hypoxia (Acute) COPD exacerbation (Acute) Tracheobronchitis, acute or subacute, with bronchospasm or obstruction (Acute) Profound anemia Tracheostomy in place (Acute) Encounter for pre-operative examination Familial adenomatous polyposis Hypertensive urgency Acute exacerbation of chronic obstructive pulmonary disease (COPD) Hypoxia (Acute) Hypertension (Acute) SOB (shortness of breath) (Acute) Wheezing (Acute) ALONA (acute kidney injury) (Acute) Metabolic acidosis Asthma exacerbation Acute kidney injury H/O deep venous thrombosis Psoriasis Hypoxia (Acute) URI (upper respiratory infection) Status post tracheostomy Acute and chronic respiratory failure with hypoxia COPD with acute exacerbation Acute bronchitis Multiple pulmonary nodules Osteoarthritis of knees, bilateral Stenosis of tracheal stoma CKD (chronic kidney disease), stage III Chronic obstructive pulmonary disease Diabetes History of Whipple procedure X 2-LAST 2012 Hyperlipidemia Hypertension History of thyroid cancer Papillary thyroid carcinoma (with throat cancer per patient) 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 S/p stomaplasty (11/2020) and tracheostoma revision (05/2021) S/p thyroidectomy No chemo or XRT History of throat cancer Dxed 2006- s/p laryngectomy with trach placement No chemo or XRT History of pancreatic cancer 2016 S/p Whipple procedure No chemo or XRT Hypoxia Medical History Coagulopathy Hypothyroidism associated with surgical procedure Adrenal adenoma History of colon cancer Dx'ed in 2002 (has familial adenomatous polyposis) S/p ileostomy and then J pouch procedure No chemo or XRT Tracheostomy in place No current issues DVT (deep venous thrombosis) WITH SURGERY TRACH 2004-WAS ON BLOOD THINNER FOR A PERIOD OF TIME-THEN OFF-NO ISSUES SINCE Murmur, cardiac F/U DR DEE ACEVEDO No murmur per routine 06/2021 cardio visit SOB (shortness of breath) on exertion Asthma Surgical History History of hernia repair 12/15/21 @ [facility] History of radical neck dissection WITH TRACHEOSTOMY-2004 History of bowel resection WITH J POUCH History of colonoscopy History of esophagogastroduodenoscopy (EGD) History of thyroidectomy Family History Family/Other Heart disease Lung disease Cancer Father Family hx of colon cancer Sister Family hx of colon cancer Other No family history of adverse response to anesthesia Social History Smoking Status: Current some day smoker Tobacco Type: Cigarettes Second Hand Exposure: No; Do You Dip or Chew Tobacco: No; Hx Alcohol Use: No Hx Substance Use: Yes Last Used Substance: Unknown Preferred Language: Malagasy Communication Ability: Unable Communication Ability Comment: Patient uses a Cervox since she has 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 Required: No Beliefs That Will Affect Care: None marital status: Current Living Situation: Alone current occupational status: disabled Other Information That Helps Us Care for You: No Feels Safe at Home: Yes Safety Concerns: Feels Safe At This Time Assistive Devices: Other Review of Systems Review of Systems: All systems reviewed & are unremarkable except as noted in HPI & below Physical Exam Physical Exam: General: no distress at rest, +coughing with prolonged talking, overweight chr onically ill appearing female Head: normocephalic, atraumatic Eyes: conjunctiva non-injected, anicteric ENT: normal inspection external ears, nose, mucous membranes moist Neck: supple, +tracheostomy Lungs: Respirations 22, +coughing with prolonged talking, +diffuse wheezing throughout CV: RRR, no murmur, no pretibial edema Abd: normal BS, soft, non-tender Ext: no cyanosis, no calf tenderness Neuro: A&O x 3, no focal deficits noted, normal affect Skin: warm, dry Results & Data Results & Data Vital Signs (Past 12 Hours) Vital Signs Temp Pulse Pulse Resp BP BP Pulse Ox 07/16/24 10:40 72 18 142/76 H 98 07/16/24 08:22 102 H 07/16/24 08:05 36.8 C 87 30 H 167/91 H 93 07/16/24 08:05 O2 Del Method 07/16/24 10:40 Room Air 07/16/24 08:22 07/16/24 08:05 Room Air 07/16/24 08:05 Room Air Laboratory Results Short CBC 07/16/24 Range/Units 08:49 WBC 11.50 H (4.8-10.8) K/ul Hgb 14.9 (12.0-16.0) g/dl Hct 44.5 (37.0-47.0) % Plt Count 414 H (130-400) K/uL BMP 07/16/24 08:49 Sodium 140 Potassium 4.0 Chloride 113 H Carbon Dioxide 17 L BUN 20 Creatinine 1.26 H Glucose 169 H Calcium 8.7 Liver Function 07/16/24 Range/Units 08:49 Total Bilirubin 0.6 (0.2-1.0) mg/dl Direct Bilirubin TNP AST 26 (13-39) U/L ALT 31 (7-52) U/L Alkaline Phosphatase 181 H (34-104) U/L Albumin 4.4 (3.4-5.0) gm/dl Diagnostic Findings Chest X-Ray 07/16/24 08:21 XR chest 1V portable CLINICAL HISTORY: Sepsis TECHNIQUE: Single frontal radiograph of the chest was obtained. Comparison: Comparison is made to chest radiograph 03/13/2024 FINDINGS: No lines and tubes are seen. The cardiomediastinal silhouette is normal. The lungs are clear. No evidence of pleural effusion or pneumothorax. IMPRESSION: No acute abnormalities and in particular no radiographic evidence of pneumonia. ACT 112: Negative or not required by law. Electronically signed by: Adriel Orantes M.D. 07/16/2024 9:35 AM Supervising Physician Co-Signing Physician Notes delayed entry date of service noted above Attending Addendum: Case reviewed with the advanced practitioner. I have personally performed a history and physical examination on the patient. I have reviewed the advanced practitioner's documentation on the date of service referenced in note, and I agree with, and take responsibility for the plan of care. please refer to her notes for full details patient seen and examined, records reviewed by myself as well diagnoses and plan of care as per advanced practitioner's notes José Murillo MD (3) Hypertension Hypertension type: unspecified Qualified Code(s): I10 - Essential (primary) hypertension (4) Type 2 diabetes mellitus Diabetes mellitus complication status: with other specified complication Diabetes mellitus manager long term care insulin use: without manager long term care use Qualified Code(s): E11.69 - Type 2 diabetes mellitus with other specified complication (5) CKD (chronic kidney disease), stage III Chronic kidney disease stage 3 subtype: stage 3a (GFR 45-59) Qualified Code(s): N18.31 - Chronic kidney disease, stage 3a
[2024-07-16] MEDS: guaiFENesin 600 MG TABCR PO ONE (12:40)
[2024-07-16] MEDS: SODIUM CHLOR 7% 4 ML NEB NEB ONE (12:46)
[2024-07-16] MEDS: ALBUT/IPRATROP 3MG/0.5MG NEB 3 ML VIAL NEB STA (12:46)
[2024-07-16 12:54] LABS: Appearance Urine Turbid (Clear); Bacteria Urine Automated 2+ (None Seen); Bilirubin Urine Negative (Negative); Blood Urine Negative (Negative); Cast Urine Automated >20 /lpf (0-2); Color Urine Yellow; Glucose Urine UA Negative (Negative); Granular Casts Urine Present /lpf (None Prsent); Hyaline Casts Urine Present /lpf (None Presnt); Ketones Urine Trace (Negative); Leukocyte Esterase Urine Negative (Negative); Nitrite Urine Negative (Negative); Protein Urine 2+ (Negative); RBC Urine Automated 0-2 /hpf (0-2); Specific Gravity Urine 1.027 (1.000-1.030); Urobilinogen Urine Negative (Negative); WBC Urine Automated 0-5 /hpf (0-5); pH Urine 5.5 (4.5-7.5)
[2024-07-16 13:08] LABS: Amorphous Sediment Urine Present (None Prsent)
[2024-07-16] MEDS: carvediloL 25 MG TAB PO ONE (13:14)
[2024-07-16] MEDS ORDERED: GLUCOSE 40% GEL 15 GM TUBE PO PRN (14:22)
[2024-07-16] MEDS ORDERED: POLYETHYLENE (MIRALAX) 17 GM PACK PO PRN (14:22)
[2024-07-16] MEDS ORDERED: ACETAMINOPHEN 325 MG TAB PO PRN (14:22)
[2024-07-16] MEDS ORDERED: GLUCOSE 10 TAB/TUBE PO PRN (14:22)
[2024-07-16] MEDS ORDERED: CARBOHYDRATES FOR HYPOGLYCEMIA PO PRN (14:22)
[2024-07-16] MEDS ORDERED: ONDANSETRON INJ 2 MG/ML 2 ML VIAL IV PRN (14:22)
[2024-07-16] MEDS ORDERED: GLUCAGON FOR INJ 1 MG VIAL SQ PRN (14:22)
[2024-07-16] MEDS ORDERED: DEXTROSE 50% 50 ML SYRINGE IV PRN (14:22)
[2024-07-16] MEDS: BUDESONIDE 0.25 MG/2 ML VIAL (PULMICORT) NEB ONE (15:20)
[2024-07-16] MEDS: ALBUT/IPRATROP 3MG/0.5MG NEB 3 ML VIAL NEB SCH (15:21)
[2024-07-16] MEDS: ADVANCED PROBIOTIC 625 MG CAPSULE PO SCH (15:39)
[2024-07-16] MEDS: amLODIPine BESYLATE 5 MG TAB PO ONE (15:40)
[2024-07-16] MEDS: FERROUS SULFATE 325 MG TAB PO SCH (15:41)
[2024-07-16] MEDS: LOSARTAN POTASSIUM 50 MG TAB PO SCH (15:41)
[2024-07-16] MEDS: ENOXAPARIN INJ 40 MG/0.4 ML SYR SQ SCH (15:42)
[2024-07-16] MEDS: cefTRIAXone SODIUM 2,000 MG/50 ML BAG IV SCH (15:42)
[2024-07-16] MEDS: methylPREDNISolone 40 MG in SYRINGE 0 ML IV SCH (15:42)
[2024-07-16] MEDS: DOXYCYCLINE HYCLATE 100 MG in DEXTROSE 5% MINI-B 100 ML IV SCH (15:43)
[2024-07-16] MEDS ORDERED: methylPREDNISolone 125 MG/2 ML VIAL IV SCH (16:30)
[2024-07-16] MEDS: INSULIN ASPART PER UNIT CHARGE SC SCH (17:03)
[2024-07-16] MEDS: carvediloL 25 MG TAB PO SCH (17:25)
[2024-07-16] MEDS: CYCLOBENZAPRINE HCL 10 MG TAB PO PRN (17:28)
[2024-07-16] MEDS: BUDESONIDE 0.25 MG/2 ML VIAL (PULMICORT) NEB SCH (19:45)
[2024-07-16] MEDS: FORMOTEROL 20 MCG/2 ML VIAL NEB SCH (19:45)
[2024-07-16] MEDS: SODIUM CHLOR 7% 4 ML NEB NEB SCH (19:45)
[2024-07-16] MEDS: guaiFENesin 600 MG TABCR PO SCH (20:28)
[2024-07-16] MEDS: LANTUS PER UNIT CHARGE SQ SCH (20:44)
[2024-07-17 05:57] LABS: Basophils # (auto) 0.01 K/uL (0.00-0.20); Basophils % (auto) 0.1 %; Hematocrit (blood only) 38.9 % (37.0-47.0); Hemoglobin 13.3 g/dl (12.0-16.0); Immature Granulocytes # (auto) 0.08 K/uL (0.01-0.20); Immature Granulocytes % (auto) 0.9 %; Lymphocytes # (auto) 1.02 K/uL (1.20-3.40); Lymphocytes % (auto) 10.9 %; Mean Corpuscular Hemoglobin 27.9 pg (25.0-34.0); Mean Corpuscular Hgb Conc 34.2 g/dL (32.0-36.0); Mean Corpuscular Volume 81.6 fL (80.0-100.0); Monocytes % (auto) 1.1 %; Neutrophils # (auto) 8.12 K/uL (1.40-6.50); Platelet Count 315 K/uL (130-400); RDW Coefficient of Variation 13.7 % (11.5-14.5); RDW Standard Deviation 40.2 fL (36.4-46.3); Red Blood Count 4.77 M/uL (4.20-5.40); White Blood Count 9.33 K/ul (4.8-10.8)
[2024-07-17 06:12] LABS: BUN Creatinine Ratio 20.5 (10-20); Calcium 8.8 mg/dl (8.6-10.3); Creatinine Clr Calc Pharmacy 49.9 ml/min; Potassium 4.3 mmol/L (3.5-5.1)
[2024-07-17] MEDS: LEVOTHYROXINE SODIUM 200 MCG TABLET PO SCH (06:12)
[2024-07-17 07:07] VITALS: O2SAT 98
[2024-07-17 07:52] VITALS: BP 154/78; TEMP 98.4
[2024-07-17] MEDS: PANTOprazole 40 MG TAB PO SCH (08:15)
[2024-07-17] MEDS: EZETIMIBE 10 MG TAB PO SCH (08:15)
[2024-07-17] MEDS: CYANOCOBALAMIN (B-12) 500 MCG TABLET PO SCH (08:16)
--- NOTE | 2024-07-17 08:32 | Discharge Summary ---
Discharge Summary Date of Service July 17, 2024 Principal Dx & Hospital Course #1 = Principal Diagnosis (1) Mucus plugging of bronchi: (2) Acute hypoxemic respiratory failure: (3) Tracheostomy in place: (4) Hypertension: (5) Type 2 diabetes mellitus: (6) CKD (chronic kidney disease), stage III: (7) History of thyroid cancer: (8) History of pancreatic cancer: Notes For Next Care Provider Medication Changes From Visit No new medication Admission HPI Per Admitting Provider Patient is 68 year old female with PMH thyroid cancer s/p laryngectomy with tracheostomy, post surgical hypothyroidism, pancreatic cancer s/p Whipple procedure, history colon CA s/p surgery, history Gross syndrome, DM II, COPD, h/o DVT status post surgical procedure, HTN, HLD, lung nodules who at baseline is not on oxygen, she developed some shortness of breath and was brought to the hospital, she had some wheezing apparently per records, this was found to be likely due to mucous plugging, overnight patient did well with therapy and eventually remove the plug, patient was seen and examined this morning, she is on room air with no respiratory complaints, examination is unremarkable with no wheezing, her chest x-ray on admission did not find anything. Overall it is my impression that this was a transient acute hypoxemic respiratory failure secondary to mucous plugging which has now resolved, patient can return home with previous medications and previous care. Discharge Exam VITALS: Reviewed. WEIGHT/BMI reviewed. GEN: Healthy appearing, well-developed, NAD., Status post trach collar NECK: Supple, with no masses. CV: RRR, no m/r/g. LUNGS: CTAB, no w/r/c. ABD: Soft, NT/ND, NBS, no masses or organomegaly. Updated Medication List Medication Instructions Recorded Confirmed Type losartan 100 mg tablet (Cozaar) 100 mg PO QAM 08/09/19 07/16/24 History repaglinide 1 mg tablet 0.5 mg PO UD 11/27/21 07/16/24 History amlodipine 10 mg tablet 10 mg PO QAM 07/30/22 07/16/24 History blood-glucose sensor (Dexcom G6 07/30/22 06/16/23 History Sensor device) carvedilol 25 mg tablet 25 mg PO BID 07/30/22 07/16/24 History levothyroxine 200 mcg tablet 200 mcg PO DAILYBB 07/30/22 07/16/24 History cyclobenzaprine 10 mg tablet 10 mg PO HS PRN Muscle Spasm 10/15/22 07/16/24 History cyanocobalamin (vitamin B-12) 1,000 mcg PO DAILY 06/16/23 07/16/24 History 1,000 mcg tablet (Vitamin B-12) ezetimibe 10 mg tablet 10 mg PO QAM 06/16/23 07/16/24 History ipratropium 0.5 mg-albuterol 3 mg 3 ml inhalation Q6 PRN Shortness 06/16/23 07/16/24 History (2.5 mg base)/3 mL nebulization Of Breath Or Wheezing soln ferrous sulfate 325 mg (65 mg 325 mg PO TID 01/23/24 07/16/24 History iron) tablet metformin 500 mg tablet,extended 500 mg PO BID 01/23/24 07/16/24 History release 24 hr pantoprazole 40 mg tablet,delayed 40 mg PO DAILY 01/23/24 07/16/24 History release repaglinide 2 mg tablet 2 mg PO BIDM 01/23/24 07/16/24 History guaifenesin 600 mg tablet, 1,200 mg (2 x 600 mg) PO BID #20 03/14/24 07/16/24 Rx extended release 12 hr (Mucinex) tabs albuterol sulfate 90 mcg/actuation 1 - 2 puff inhalation Q6H PRN 07/16/24 07/16/24 History aerosol inhaler SOB/WHEEZING beclomethasone dipropionate 40 1 inh inhalation DAILY 07/16/24 07/16/24 History mcg/actuation HFA breath activated aerosol (Qvar RediHaler) sodium chloride 7 % for See Rx Instructions .ROUTE 07/16/24 07/16/24 History nebulization .COMPLEX PRN SOB tiotropium bromide 2.5 1 puff inhalation DAILY 07/16/24 07/16/24 History mcg/actuation mist for inhalation (Spiriva Respimat) Hospital Stay Data Consultations 07/16/24 11:46 ED Decision to Admit Stat Pending Results Patient Have Any Pending Studies at Discharge: No Discharge Instructions Given to Patient (Per Discharging Provider) No further recommendation Total Time Total Time Spent Total Time Spent (In Minutes): More than 35 minutes
[2024-07-17] MEDS: amLODIPine BESYLATE 5 MG TAB PO SCH (10:23)
[2024-07-17 11:12] VITALS: PULSE 76; RESP 18
--- NOTE | 2024-07-18 06:43 | Electrocardiogram Report ---
Test Reason : Blood Pressure : */* mmHG Vent. Rate : 92 BPM Atrial Rate : 92 BPM P-R Int : 134 ms QRS Dur : 82 ms QT Int : 380 ms P-R-T Axes : 58 -25 74 degrees QTcB Int : 469 ms Normal sinus rhythm Cannot rule out Anterior infarct , age undetermined Abnormal ECG When compared with ECG of 13-Mar-2024 08:19, QRS axis Shifted left Confirmed by Ta Salas ([id number]) on 07/18/2024 6:43:10 AM Referred By: REFERRED SELF Confirmed By: Ta Salas
== END 2024-07-17 13:02 | disposition home or self-care (01) | DRG 205 ==
LOC: ED 07:56 → 2E 12:06 → SUATTDRO 12:06 → 2E 13:39

== ENCOUNTER 2025-02-28 02:42 | Inpatient (IN) ==
[2025-02-28 03:00] LABS: Hematocrit (blood only) 42.3 % (37.0-47.0); Hemoglobin 14.1 g/dl (12.0-16.0); Immature Granulocytes # (auto) 0.03 K/uL (0.01-0.20); Immature Granulocytes % (auto) 0.3 %; Mean Corpuscular Hemoglobin 27.4 pg (25.0-34.0); Mean Corpuscular Volume 82.3 fL (80.0-100.0); Platelet Count 377 K/uL (130-400); RDW Standard Deviation 46.9 fL (36.4-46.3); Red Blood Count 5.14 M/uL (4.20-5.40); White Blood Count 9.63 K/ul (4.8-10.8)
[2025-02-28 03:01] LABS: Base Excess VBG -8.3 mEq/L; HCO3 VBG 19 mmol/L; Oxygen Saturation VBG 81.7 %; PCO2 VBG 44 mmHg (38-50); PO2 VBG 51 mmHg; pH VBG 7.24 (7.36-7.41)
[2025-02-28] MEDS: SODIUM CHLORIDE 0.9% 500 ML IV STA (03:10)
[2025-02-28] MEDS: ALBUT/IPRATROP 3MG/0.5MG NEB 3 ML VIAL INH STA (03:10)
[2025-02-28 03:25] LABS: Alanine Aminotransferase 31.0 U/L (7-52); Albumin Globulin Ratio 1.1 (0.9-2); Alkaline Phosphatase 177.0 U/L (34-104); Anion Gap 10.0 (3-11); Bilirubin,Total 0.3 mg/dl (0.2-1.0); Blood Urea Nitrogen 25.0 mg/dl (6-23); Calcium 8.9 mg/dl (8.6-10.3); Carbon Dioxide 19.0 mmol/L (21-32); Chloride 111.0 mmol/L (98-107); Creatinine Clr Calc Pharmacy 38.7 ml/min; Globulin 3.7 gm/dl (2.5-4.0); Glucose 171.0 mg/dl (70-99(Fasting)); Potassium 3.7 mmol/L (3.5-5.1); Sodium 140.0 mmol/L (136-145); Total Protein 7.8 gm/dl (6.0-8.3)
[2025-02-28] MEDS: ALBUT/IPRATROP 3MG/0.5MG NEB 3 ML VIAL NEB ONE (03:41)
[2025-02-28 04:01] LABS: Chlamydia pneumoniae PCR Not Detected (NotDetected); Coronavirus 229E PCR Not Detected (NotDetected); Coronavirus CoV-2 (COVID19)PCR Not Detected (NotDetected); Coronavirus HKU1 PCR Not Detected (NotDetected); Coronavirus NL63 PCR Not Detected (NotDetected); Coronavirus OC43PCR Not Detected (NotDetected); Human Metapneumovirus PCR Not Detected (NotDetected); Parainfluenza Virus 1 PCR Not Detected (NotDetected); Parainfluenza Virus 2 PCR Not Detected (NotDetected); Parainfluenza Virus 3 PCR Not Detected (NotDetected); Parainfluenza Virus 4 PCR Not Detected (NotDetected); Respiratory Syncytial VirusPCR Not Detected (NotDetected); Rhinovirus/Enterovirus PCR DETECTED (NotDetected)
--- NOTE | 2025-02-28 04:13 | Emergency Department Note ---
History of Present Illness General Chief complaint: Shortness of Breath/Dyspnea Stated complaint: SOB, Covid Time Seen by Provider: 02/28/25 02:48 History of Present Illness This is a 69-year-old female presenting to the emergency department via EMS for evaluation of shortness of breath. Patient has significant history of throat cancer with tracheostomy. She has had several episodes of acute respiratory failure with hypoxia and COPD with exacerbation. Patient symptoms began worsening over the past few days, and are much worse this evening. She states the last time she felt this sick is when she had COVID-19. She has not had fever at home. On arrival to the house, EMS reports that her oxygen was 88% on room air. Patient rates her discomfort an 8/10. Home Medications Medication Instructions Recorded Confirmed Type losartan 100 mg tablet (Cozaar) 100 mg PO QAM 08/09/19 02/28/25 History repaglinide 1 mg tablet 0.5 mg PO UD 11/27/21 02/28/25 History amlodipine 10 mg tablet 10 mg PO QAM 07/30/22 02/28/25 History blood-glucose sensor (Dexcom G6 07/30/22 06/16/23 History Sensor device) carvedilol 25 mg tablet 25 mg PO BID 07/30/22 02/28/25 History levothyroxine 200 mcg tablet 200 mcg PO DAILYBB 07/30/22 02/28/25 History cyclobenzaprine 10 mg tablet 10 mg PO HS PRN Muscle Spasm 10/15/22 02/28/25 History cyanocobalamin (vitamin B-12) 1,000 mcg PO DAILY 06/16/23 02/28/25 History 1,000 mcg tablet (Vitamin B-12) ezetimibe 10 mg tablet 10 mg PO QAM 06/16/23 02/28/25 History ipratropium 0.5 mg-albuterol 3 mg 3 ml inhalation Q6 PRN Shortness 06/16/23 02/28/25 History (2.5 mg base)/3 mL nebulization Of Breath Or Wheezing soln ferrous sulfate 325 mg (65 mg 325 mg PO TID 01/23/24 02/28/25 History iron) tablet metformin 500 mg tablet,extended 500 mg PO BID 01/23/24 02/28/25 History release 24 hr pantoprazole 40 mg tablet,delayed 40 mg PO DAILY 01/23/24 02/28/25 History release repaglinide 2 mg tablet 2 mg PO BIDM 01/23/24 02/28/25 History guaifenesin 600 mg tablet, 1,200 mg (2 x 600 mg) PO BID #20 03/14/24 02/28/25 Rx extended release 12 hr (Mucinex) tabs albuterol sulfate 90 mcg/actuation 1 - 2 puff inhalation Q6H PRN 07/16/24 02/28/25 History aerosol inhaler SOB/WHEEZING beclomethasone dipropionate 40 1 inh inhalation DAILY 07/16/24 02/28/25 History mcg/actuation HFA breath activated aerosol (Qvar RediHaler) sodium chloride 7 % for See Rx Instructions .ROUTE 07/16/24 02/28/25 History nebulization .COMPLEX PRN SOB tiotropium bromide 2.5 1 puff inhalation DAILY 07/16/24 02/28/25 History mcg/actuation mist for inhalation (Spiriva Respimat) hydralazine 50 mg tablet 50 mg PO TID #90 tabs 07/17/24 02/28/25 Rx Allergies Allergy/AdvReac Type Severity Reaction Status Date / Time zolpidem [From Ambien] Allergy Severe pysch Verified 07/16/24 09:24 complications, dizzy NSAIDS (Non-Steroidal Allergy Intermediate Ulcer & Verified 07/16/24 09:24 Anti-Inflamma anemia hydrochlorothiazide AdvReac Intermediate Acute Verified 07/16/24 09:24 kidney injury rosuvastatin [From Crestor] AdvReac Intermediate Elavated Verified 07/16/24 09:24 liver function test Past Med/Surg History Problem List (Updated 02/28/25 @ 05:45 by Dee Hopper PA-C) Rhinovirus infection (Acute) Mucus plugging of bronchi (Acute) Acute hypoxemic respiratory failure Hypoxic (Acute) Shortness of breath (Acute) Acute respiratory failure with hypoxia Acute kidney injury superimposed on CKD Type 2 diabetes mellitus Diabetes mellitus type 2, controlled, without complications Acute respiratory failure due to COVID-19 Acute exacerbation of chronic obstructive airways disease (Acute) Sepsis Hypoxia (Acute) Tracheobronchitis, acute or subacute, with bronchospasm or obstruction (Acute) Profound anemia Tracheostomy in place (Acute) Encounter for pre-operative examination Familial adenomatous polyposis Hypertensive urgency Acute exacerbation of chronic obstructive pulmonary disease (COPD) (Acute) Hypoxia (Acute) Hypertension (Acute) SOB (shortness of breath) (Acute) Wheezing (Acute) ALONA (acute kidney injury) (Acute) Metabolic acidosis Asthma exacerbation Acute kidney injury H/O deep venous thrombosis Psoriasis Hypoxia (Acute) URI (upper respiratory infection) Status post tracheostomy Acute and chronic respiratory failure with hypoxia COPD with acute exacerbation Acute bronchitis Multiple pulmonary nodules Osteoarthritis of knees, bilateral Stenosis of tracheal stoma CKD (chronic kidney disease), stage III Chronic obstructive pulmonary disease Diabetes History of Whipple procedure X 2-LAST 2012 Hyperlipidemia Hypertension History of thyroid cancer Papillary thyroid carcinoma (with throat cancer per patient) 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 S/p stomaplasty (11/2020) and tracheostoma revision (05/2021) S/p thyroidectomy No chemo or XRT History of throat cancer Dxed 2006- s/p laryngectomy with trach placement No chemo or XRT History of pancreatic cancer 2016 S/p Whipple procedure No chemo or XRT Hypoxia Medical History Coagulopathy Hypothyroidism associated with surgical procedure Adrenal adenoma History of colon cancer Dx'ed in 2002 (has familial adenomatous polyposis) S/p ileostomy and then J pouch procedure No chemo or XRT Tracheostomy in place No current issues DVT (deep venous thrombosis) WITH SURGERY TRACH 2004-WAS ON BLOOD THINNER FOR A PERIOD OF TIME-THEN OFF-NO ISSUES SINCE Murmur, cardiac F/U DR DEE ACEVEDO No murmur per routine 06/2021 cardio visit SOB (shortness of breath) on exertion Asthma Surgical History History of hernia repair 12/15/21 @ [facility] History of radical neck dissection WITH TRACHEOSTOMY-2004 History of bowel resection WITH J POUCH History of colonoscopy History of esophagogastroduodenoscopy (EGD) History of thyroidectomy Family History Family/Other Heart disease Lung disease Cancer Father Family hx of colon cancer Sister Family hx of colon cancer Other No family history of adverse response to anesthesia Social History Smoking Status: Former smoker Tobacco Type: Cigarettes Second Hand Exposure: No; Do You Dip or Chew Tobacco: No; Hx Alcohol Use: No Hx Substance Use: Yes Last Used Substance: Unknown Preferred Language: Luxembour[place] Communication Ability: Unable Communication Ability Comment: Patient uses a Cervox since she has 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 Actuarial Internship Required: No Beliefs That Will Affect Care: None marital status: Current Living Situation: Alone current occupational status: disabled Feels Safe at Home: Yes Assistive Devices: Other Review of Systems A total of 10 systems reviewed and were otherwise negative Physical Exam Vital Signs Vital Signs - 24 hr 02/28/25 02:35 02/28/25 03:17 02/28/25 03:41 Temperature 36.6 C Temperature Source Oral Pulse Rate 91 H Pulse Rate [Apical] 77 101 H Respiratory Rate 28 H 22 26 H Respiratory Effort / Characteristics Labored Spontaneous Spontaneous Blood Pressure 174/98 H Blood Pressure Mean 123 Pulse Oximetry 100 98 97 Oxygen Delivery Method Non-rebreather Trach Collar Trach Collar Oxygen Flow Rate 10 8 8 Fraction of Inspired Oxygen 35 35 Sepsis Recent Fever Within 48 Hours No Sepsis New/Unexplained Change in Mental Status No Sepsis Action Taken by Nursing No Action Required 02/28/25 03:54 Temperature Temperature Source Pulse Rate Pulse Rate [Apical] Respiratory Rate Respiratory Effort / Characteristics Blood Pressure Blood Pressure Mean Pulse Oximetry Oxygen Delivery Method Trach Collar Oxygen Flow Rate 8 Fraction of Inspired Oxygen 35 Sepsis Recent Fever Within 48 Hours Sepsis New/Unexplained Change in Mental Status Sepsis Action Taken by Nursing VITALS: Vitals are noted on the nurse's note and reviewed by myself. Vital signs stable. GENERAL: White female who is mildly anxious appearing but overall pleasant and cooperative HEAD: Normocephalic atraumatic. HEART: Regular rate and rhythm without murmurs gallops or rubs. LUNGS: Diminished breath sounds throughout ABDOMEN: Positive normal bowel sounds x 4. Soft, nontender, without masses or organomegaly. No guarding or rebound tenderness. MUSCULOSKELETAL: No muscle atrophy, erythema, or edema noted. Full range of motion in all extremities. NEURO: Patient was alert and oriented to person place and time. CN II through XII grossly intact. Course Administered Medications Potassium Chloride 20 meq/ (Lactated Ringer's) 1,010 mls @ 60 mls/hr IV .[id number] ONE Stop: 02/28/25 20:50 Last Admin: 02/28/25 05:29 Dose: 60 mls/hr Documented By: BEN Discontinued Medications Albuterol (Albut/Ipratrop 3mg/0.5mg Neb 3 Ml Vial) 3 ml INH NOW STA Stop: 02/28/25 02:54 Last Admin: 02/28/25 03:10 Dose: 3 ml Documented By: DEDE Albuterol (Albut/Ipratrop 3mg/0.5mg Neb 3 Ml Vial) 12 ml NEB ONE ONE; Protocol Stop: 02/28/25 03:31 Last Admin: 02/28/25 03:41 Dose: 12 ml Documented By: KEVIN Sodium Chloride (Nss) 500 mls @ 999 mls/hr IV .Q31M STA Stop: 02/28/25 03:23 Last Infusion: 02/28/25 03:41 Dose: Infused Documented By: Admin: 02/28/25 03:10 Dose: 999 mls/hr Documented By: DEDE Methylprednisolone (Methylprednisolone 125 Mg/2 Ml Vial) 125 mg IV NOW STA Stop: 02/28/25 02:54 Last Admin: 02/28/25 03:10 Dose: 125 mg Documented By: DEDE Metoprolol Tartrate (Metoprolol Tartrate 1 Mg/Ml Vial) 2.5 mg IV NOW STA Stop: 02/28/25 04:02 Last Admin: 02/28/25 05:09 Dose: Not Given Documented By: BEN Medical Decision Making Differential Diagnosis Differential diagnosis: Etiologies such as infections, reactive airway disease, COPD, pneumonia, pleural effusion, pulmonary edema, ARDS, pneumothorax, CHF, cardiac ischemia, cardiac tamponade, dysrhythmia, anemia, pulmonary embolism, musculoskeletal, gastrointestinal process, as well as others were entertained. Laboratory Data 02/28/25 02:51 02/28/25 04:48 Lab Results 02/28/25 02/28/25 Range/Units 02:51 02:57 WBC 9.63 (4.8-10.8) K/ul RBC 5.14 (4.20-5.40) M/uL Hgb 14.1 (12.0-16.0) g/dl Hct 42.3 (37.0-47.0) % MCV 82.3 (80.0-100.0) fL MCH 27.4 (25.0-34.0) pg MCHC 33.3 (32.0-36.0) g/dL RDW Std Deviation 46.9 H (36.4-46.3) fL RDW Coeff of Monika 15.6 H (11.5-14.5) % Plt Count 377 (130-400) K/uL MPV 9.8 (9.4-12.4) fL Immature Gran % (Auto) 0.3 % Neut % (Auto) 63.5 % Lymph % (Auto) 13.6 % Hartley % (Auto) 9.0 % Eos % (Auto) 12.3 % Baso % (Auto) 1.3 % Neut # (Auto) 6.11 (1.40-6.50) K/uL Lymph # (Auto) 1.31 (1.20-3.40) K/uL Hartley # (Auto) 0.87 H (0.11-0.59) K/uL Eos # (Auto) 1.18 H (0.00-0.50) K/uL Baso # (Auto) 0.13 (0.00-0.20) K/uL Immature Gran # (Auto) 0.03 (0.01-0.20) K/uL VBG pH 7.24 L (7.36-7.41) VBG pCO2 44 (38-50) mmHg VBG pO2 51 mmHg VBG HCO3 19 mmol/L VBG O2 Saturation 81.7 % VBG Base Excess -8.3 mEq/L Sodium 140 (136-145) mmol/L Potassium 3.7 (3.5-5.1) mmol/L Chloride 111 H (98-107) mmol/L Carbon Dioxide 19 L (21-32) mmol/L Anion Gap 10 (3-11) BUN 25 H (6-23) mg/dl Creatinine 1.47 H (0.6-1.2) mg/dl Est Cr Clr Drug Dosing 38.7 ml/min eGFR 38.65 BUN/Creatinine Ratio 17.0 (10-20) Glucose 171 H (70-99(Fasting)) mg/dl Calcium 8.9 (8.6-10.3) mg/dl Magnesium 2.2 (1.7-2.4) mg/dl Total Bilirubin 0.3 (0.2-1.0) mg/dl AST 33 (13-39) U/L ALT 31 (7-52) U/L Alkaline Phosphatase 177 H (34-104) U/L Troponin I High Sens 7.7 (0-14) pg/ml B-Natriuretic Peptide 72 (0-100) pg/ml Total Protein 7.8 (6.0-8.3) gm/dl Albumin 4.1 (3.4-5.0) gm/dl Globulin 3.7 (2.5-4.0) gm/dl Albumin/Globulin Ratio 1.1 (0.9-2) TSH 0.580 (0.300-4.500) uIu/ml Adenovirus (PCR) Not Detected (NotDetected) B. pertussis DNA (PCR) Not Detected (NotDetected) B.parapertussis DNA PCR Not Detected (NotDetected) C. pneumoniae DNA (PCR) Not Detected (NotDetected) Coronavirus OC43 (PCR) Not Detected (NotDetected) Coronavirus HKU1 (PCR) Not Detected (NotDetected) Coronavirus 229E (PCR) Not Detected (NotDetected) SARS-CoV-2 (PCR) Not Detected (NotDetected) Coronavirus NL63 (PCR) Not Detected (NotDetected) Human Metapneumovir PCR Not Detected (NotDetected) Influenza Type A (PCR) Not Detected (NotDetected) Influenza Type B (PCR) Not Detected (NotDetected) M. pneumoniae (PCR) Not Detected (NotDetected) Parainfluenza 1 (PCR) Not Detected (NotDetected) Parainfluenza 2 (PCR) Not Detected (NotDetected) Parainfluenza 3 (PCR) Not Detected (NotDetected) Parainfluenza 4 (PCR) Not Detected (NotDetected) RSV (PCR) Not Detected (NotDetected) Entero/Rhino (PCR) DETECTED A (NotDetected) Imaging Data Radiologist's Impression: Chest X-Ray 02/28/25 02:53 EXAM: XR chest 1V portable CLINICAL HISTORY: Dyspnea. TECHNIQUE: An X-ray image of the chest is obtained in AP projection. COMPARISON: 07/16/2024 CR. FINDINGS: Apparent tracheostomy tube, tip not precisely seen. Needs clinical correlation. Pulmonary Parenchyma: Lungs are clear bilaterally. No evidence of consolidation, collapse, or focal opacities. No pulmonary nodules are identified. No evidence of pleural effusion or pleural thickening. Heart and Mediastinum: Heart size and shape are normal. No mediastinal widening or masses. No hilar or mediastinal lymphadenopathy. Bony Thorax: Bony thorax appears intact without fractures or deformities. Soft Tissues: Soft tissues overlying the chest wall are unremarkable. IMPRESSION: 1. No acute cardiopulmonary abnormalities are identified. 2. Apparent tracheostomy tube, tip not precisely seen. Needs clinical correlation. 3. No significant interval changes. Electronically signed by Mirza Dean 02-28-2025 04:26 AM MDM Narrative Physical exam and history were performed. Nursing notes, EMR, and Medication List were personally reviewed. No social concerns were identified as barriers to patients care. History was provided by the Patient and EMS. Patient appears to have difficulty breathing bring her to the ER. Patient has had several exacerbations of COPD in the past and typically does not require home oxygen. She is requiring oxygen to maintain a saturation greater than 90%. IV access was established and labs were obtained. She was given Solu-Medrol as well as an initial 15-minute DuoNeb, followed by 1 hour DuoNeb. DuoNebs were performed with the assistance of respiratory therapy, and patient had significant mucous plugging that was mobilized by respiratory therapy. An order was placed for continuous cardiac monitoring. The monitor shows a rate of 72 with normal sinus rhythm. Patient's blood work is as above and was reviewed. She does not have a significant elevated white blood cell count or gross anemia. Transaminases not diagnostic. Creatinine is 1.34 and glucose 193. Troponin x 1 is negative. VBG shows that she is slightly acidotic, however this is essentially her baseline. BNP is 72. Chest x-ray was performed and independently reviewed by myself and radiology showing no acute pneumonia. Bio fire did return POSITIVE for rhinovirus which may be contributory to the patient's symptoms. Escalation of care was considered, and felt to be necessary. The patient is requiring oxygen to maintain a saturation and she has several comorbidities that are quite worrisome. She has had improvement with care through respiratory services and the DuoNeb. Case [facility] with [facility] attending [facility]. [facility] for further patient course, plan, and disposition. The chart was completed utilizing [employer] Voice Recognition Software. Grammatical errors, random word insertions, pronoun errors, and incomplete sentences are an occasional consequence of this system due to software limitations, ambient noise, and hardware issues. Any formal questions or concerns about the content, text, or information contained within the body of this dictation should be directly addressed to the provider for clarification. Impression & Plan Acute exacerbation of chronic obstructive pulmonary disease (COPD), Mucus plugging of bronchi, Rhinovirus infection Discharge Plan Visit Data Chief Complaint: Shortness of Breath/Dyspnea Stated Complaint: SOB, Covid ED Provider: Faina Collado ED Midlevel Provider: Dee Hopper Discharge Problem: Acute exacerbation of chronic obstructive pulmonary disease (COPD), Mucus plugging of bronchi, Rhinovirus infection Patient Disposition: Being Evaluated by Hospitalist Condition: Fair Discharge Instructions Interventions: ED Discharge Assessment Last Done: 02/28/25 05:33
--- NOTE | 2025-02-28 04:20 | History & Physical Report ---
Date of Service February 28, 2025 Assessment & Plan (1) Acute respiratory failure with hypoxia: Plan: Assessment and plan below following discussion of case with ED provider and reviewing patient history/pertinent normal/abnormal diagnostic test results. Acute hypoxemic respiratory failure secondary to COPD exacerbation Rhinovirus infection No sepsis for now ARF, NAGMA secondary to decreased p.o. intake secondary to viral illness hypertension, elevated secondary to illness hyperlipidemia/statin intolerance DM2 on oral medications, suboptimal control as of recent hemoglobin A1c of 7.8 last month primary aldosteronism/history of bilateral adrenal nodules, last outpatient [facility] [place]ocrinology follow-up was in 2022 recurrent thyroid cancer status post surgery/BRAND therapy postsurgical hypothyroidism, outpatient TSH from 6 months ago elevated at 7 history of post laryngectomy stoma stenosis status post stomaplasty pancreatic cancer status post surgery colon cancer status post surgery hx of Gross syndrome/FAP past tobacco abuse Medical telemetry Supplemental O2 Nebs RTC, prednisone course No indication for antibiotic for now. Pulmonology consult if without improvement Baseline UA, monitor creatinine and VBG response to LRS, renal ultrasound if wi thout improvement Hold losartan until creatinine back to baseline IV Lopressor 1 dose now Basal bolus insulin, ISS BG goal 1 10-1 40, carb count coverage DVT prophylaxis heparin subcu Full code Total critical care time was 40 minutes. Text document was generated using [employer] voice recognition software. It may contain grammatical or spelling errors. Kindly contact undersigned for clarification of any documentation item in question. History of Present Illness Chief Complaint: Worsening shortness of breath Primary Care Provider: Orlin Castro MD History obtained from patient and records. Medical history significant for hypertension, hyperlipidemia, COPD, DM2 on oral medications, primary aldosteronism, recurrent thyroid cancer status post surgery/BRAND therapy, postsurgical hypothyroidism, history of post laryngectomy stoma stenosis status post stomaplasty, pancreatic cancer status post surgery, colon cancer status post surgery, GERD, history of Gross syndrome/FAP, history of MRSA as per records, past tobacco abuse. Last confinement July 2024 for respiratory failure secondary to mucous plugging. 1 day history of dry cough symptoms with worsening shortness of breath and whee zing at home. Sick contacts during trip to [facility] 2 days ago. Denies chest pain, denies fluid retention. No fever, no chills. Fair appetite. O2 sats noted to be 80s on room air upon EMS arrival at patient's home. Solu-Medrol and neb treatment administered at the ER. 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 Allergies Allergy/AdvReac Type Severity Reaction Status Date / Time zolpidem [From Ambien] Allergy Severe pysch Verified 07/16/24 09:24 complications, dizzy NSAIDS (Non-Steroidal Allergy Intermediate Ulcer & Verified 07/16/24 09:24 Anti-Inflamma anemia hydrochlorothiazide AdvReac Intermediate Acute Verified 07/16/24 09:24 kidney injury rosuvastatin [From Crestor] AdvReac Intermediate Elavated Verified 07/16/24 09:24 liver function test Home Medications Medication Instructions Recorded Confirmed Type losartan 100 mg tablet (Cozaar) 100 mg PO QAM 08/09/19 02/28/25 History repaglinide 1 mg tablet 0.5 mg PO UD 11/27/21 02/28/25 History amlodipine 10 mg tablet 10 mg PO QAM 07/30/22 02/28/25 History blood-glucose sensor (Dexcom G6 07/30/22 06/16/23 History Sensor device) carvedilol 25 mg tablet 25 mg PO BID 07/30/22 02/28/25 History levothyroxine 200 mcg tablet 200 mcg PO DAILYBB 07/30/22 02/28/25 History cyclobenzaprine 10 mg tablet 10 mg PO HS PRN Muscle Spasm 10/15/22 02/28/25 History cyanocobalamin (vitamin B-12) 1,000 mcg PO DAILY 06/16/23 02/28/25 History 1,000 mcg tablet (Vitamin B-12) ezetimibe 10 mg tablet 10 mg PO QAM 06/16/23 02/28/25 History ipratropium 0.5 mg-albuterol 3 mg 3 ml inhalation Q6 PRN Shortness 06/16/23 02/28/25 History (2.5 mg base)/3 mL nebulization Of Breath Or Wheezing soln ferrous sulfate 325 mg (65 mg 325 mg PO TID 01/23/24 02/28/25 History iron) tablet metformin 500 mg tablet,extended 500 mg PO BID 01/23/24 02/28/25 History release 24 hr pantoprazole 40 mg tablet,delayed 40 mg PO DAILY 01/23/24 02/28/25 History release repaglinide 2 mg tablet 2 mg PO BIDM 01/23/24 02/28/25 History guaifenesin 600 mg tablet, 1,200 mg (2 x 600 mg) PO BID #20 03/14/24 02/28/25 Rx extended release 12 hr (Mucinex) tabs albuterol sulfate 90 mcg/actuation 1 - 2 puff inhalation Q6H PRN 07/16/24 02/28/25 History aerosol inhaler SOB/WHEEZING beclomethasone dipropionate 40 1 inh inhalation DAILY 07/16/24 02/28/25 History mcg/actuation HFA breath activated aerosol (Qvar RediHaler) sodium chloride 7 % for See Rx Instructions .ROUTE 07/16/24 02/28/25 History nebulization .COMPLEX PRN SOB tiotropium bromide 2.5 1 puff inhalation DAILY 07/16/24 02/28/25 History mcg/actuation mist for inhalation (Spiriva Respimat) hydralazine 50 mg tablet 50 mg PO TID #90 tabs 07/17/24 02/28/25 Rx Past Med/Surg History Problem List (Updated 02/28/25 @ 05:45 by Dee Hopper PA-C) Rhinovirus infection (Acute) Mucus plugging of bronchi (Acute) Acute hypoxemic respiratory failure Hypoxic (Acute) Shortness of breath (Acute) Acute respiratory failure with hypoxia Acute kidney injury superimposed on CKD Type 2 diabetes mellitus Diabetes mellitus type 2, controlled, without complications Acute respiratory failure due to COVID-19 Acute exacerbation of chronic obstructive airways disease (Acute) Sepsis Hypoxia (Acute) Tracheobronchitis, acute or subacute, with bronchospasm or obstruction (Acute) Profound anemia Tracheostomy in place (Acute) Encounter for pre-operative examination Familial adenomatous polyposis Hypertensive urgency Acute exacerbation of chronic obstructive pulmonary disease (COPD) (Acute) Hypoxia (Acute) Hypertension (Acute) SOB (shortness of breath) (Acute) Wheezing (Acute) ALONA (acute kidney injury) (Acute) Metabolic acidosis Asthma exacerbation Acute kidney injury H/O deep venous thrombosis Psoriasis Hypoxia (Acute) URI (upper respiratory infection) Status post tracheostomy Acute and chronic respiratory failure with hypoxia COPD with acute exacerbation Acute bronchitis Multiple pulmonary nodules Osteoarthritis of knees, bilateral Stenosis of tracheal stoma CKD (chronic kidney disease), stage III Chronic obstructive pulmonary disease Diabetes History of Whipple procedure X 2-LAST 2012 Hyperlipidemia Hypertension History of thyroid cancer Papillary thyroid carcinoma (with throat cancer per patient) 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 S/p stomaplasty (11/2020) and tracheostoma revision (05/2021) S/p thyroidectomy No chemo or XRT History of throat cancer Dxed 2006- s/p laryngectomy with trach placement No chemo or XRT History of pancreatic cancer 2016 S/p Whipple procedure No chemo or XRT Hypoxia Medical History Coagulopathy Hypothyroidism associated with surgical procedure Adrenal adenoma History of colon cancer Dx'ed in 2002 (has familial adenomatous polyposis) S/p ileostomy and then J pouch procedure No chemo or XRT Tracheostomy in place No current issues DVT (deep venous thrombosis) WITH SURGERY TRACH 2004-WAS ON BLOOD THINNER FOR A PERIOD OF TIME-THEN OFF-NO ISSUES SINCE Murmur, cardiac F/U DR DEE ACEVEDO No murmur per routine 06/2021 cardio visit SOB (shortness of breath) on exertion Asthma Surgical History History of hernia repair 12/15/21 @ [facility] History of radical neck dissection WITH TRACHEOSTOMY-2004 History of bowel resection WITH J POUCH History of colonoscopy History of esophagogastroduodenoscopy (EGD) History of thyroidectomy Family History Family/Other Heart disease Lung disease Cancer Father Family hx of colon cancer Sister Family hx of colon cancer Other No family history of adverse response to anesthesia Social History Smoking Status: Former smoker Tobacco Type: Cigarettes Second Hand Exposure: No; Do You Dip or Chew Tobacco: No; Hx Alcohol Use: No Hx Substance Use: Yes Last Used Substance: Unknown Preferred Language: Prydeinig Communication Ability: Unable Communication Ability Comment: Patient uses a Cervox since she has 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 [employer]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 Beliefs That Will Affect Care: None marital status: Current Living Situation: Alone current occupational status: disabled Feels Safe at Home: Yes Assistive Devices: Other Review of Systems Review of Systems: As per HPI, all other systems reviewed and negative Physical Exam Physical Exam: GENERAL: Slightly uncomfortable, ill-appearing, occasional use of electrolarynx, obese, respiratory distress SKIN: Normal color, warm HEENT: [place] palpebral conjunctivae, no ptosis, dry buccal mucosa NECK : Supple, O2 mask overlying neck stoma, no tenderness CHEST : Decreased breath sounds, diffuse expiratory wheezes, no tenderness HEART : RRR, no obvious murmurs ABDOMEN: Some distention, nontender EXTREMITIES : No LE swelling/tenderness, no other conspicuous deformities noted NEUROLOGIC : Coherent, no facial asymmetry, no other gross focality Results & Data Results & Data Vital Signs (Past 12 Hours) Vital Signs Temp Pulse Pulse Resp BP Pulse Ox O2 Del Method 02/28/25 03:54 Trach Collar 02/28/25 03:41 101 H 26 H 97 Trach Collar 02/28/25 03:17 77 22 98 Trach Collar 02/28/25 02:35 36.6 C 91 H 28 H 174/98 H 100 Non-rebreather O2 Flow Rate FiO2 02/28/25 03:54 8 35 02/28/25 03:41 8 35 02/28/25 03:17 8 35 02/28/25 02:35 10 Laboratory Results Laboratory Results WBC 9.63 K/ul (4.8-10.8) 02/28/25 02:51 RBC 5.14 M/uL (4.20-5.40) 02/28/25 02:51 Hgb 14.1 g/dl (12.0-16.0) 02/28/25 02:51 Hct 42.3 % (37.0-47.0) 02/28/25 02:51 MCV 82.3 fL (80.0-100.0) 02/28/25 02:51 MCH 27.4 pg (25.0-34.0) 02/28/25 02:51 MCHC 33.3 g/dL (32.0-36.0) 02/28/25 02:51 RDW Std Deviation 46.9 fL (36.4-46.3) H 02/28/25 02:51 RDW Coeff of Monika 15.6 % (11.5-14.5) H 02/28/25 02:51 Plt Count 377 K/uL (130-400) 02/28/25 02:51 MPV 9.8 fL (9.4-12.4) 02/28/25 02:51 Immature Gran % (Auto) 0.3 % 02/28/25 02:51 Neut % (Auto) 63.5 % 02/28/25 02:51 Lymph % (Auto) 13.6 % 02/28/25 02:51 Slope % (Auto) 9.0 % 02/28/25 02:51 Eos % (Auto) 12.3 % 02/28/25 02:51 Baso % (Auto) 1.3 % 02/28/25 02:51 Neut # (Auto) 6.11 K/uL (1.40-6.50) 02/28/25 02:51 Lymph # (Auto) 1.31 K/uL (1.20-3.40) 02/28/25 02:51 Slope # (Auto) 0.87 K/uL (0.11-0.59) H 02/28/25 02:51 Eos # (Auto) 1.18 K/uL (0.00-0.50) H 02/28/25 02:51 Baso # (Auto) 0.13 K/uL (0.00-0.20) 02/28/25 02:51 Immature Gran # (Auto) 0.03 K/uL (0.01-0.20) 02/28/25 02:51 VBG pH 7.24 (7.36-7.41) L 02/28/25 02:51 VBG pCO2 44 mmHg (38-50) 02/28/25 02:51 VBG pO2 51 mmHg 02/28/25 02:51 VBG HCO3 19 mmol/L 02/28/25 02:51 VBG O2 Saturation 81.7 % 02/28/25 02:51 VBG Base Excess -8.3 mEq/L 02/28/25 02:51 Sodium 140 mmol/L (136-145) 02/28/25 02:51 Potassium 3.7 mmol/L (3.5-5.1) 02/28/25 02:51 Chloride 111 mmol/L (98-107) H 02/28/25 02:51 Carbon Dioxide 19 mmol/L (21-32) L 02/28/25 02:51 Anion Gap 10 (3-11) 02/28/25 02:51 BUN 25 mg/dl (6-23) H 02/28/25 02:51 Creatinine 1.47 mg/dl (0.6-1.2) H 02/28/25 02:51 Est Cr Clr Drug Dosing 38.7 ml/min 02/28/25 02:51 eGFR 38.65 02/28/25 02:51 BUN/Creatinine Ratio 17.0 (10-20) 02/28/25 02:51 Glucose 171 mg/dl (70-99(Fasting)) H 02/28/25 02:51 Calcium 8.9 mg/dl (8.6-10.3) 02/28/25 02:51 Total Bilirubin 0.3 mg/dl (0.2-1.0) 02/28/25 02:51 AST 33 U/L (13-39) 02/28/25 02:51 ALT 31 U/L (7-52) 02/28/25 02:51 Alkaline Phosphatase 177 U/L (34-104) H 02/28/25 02:51 Troponin I High Sens 7.7 pg/ml (0-14) 02/28/25 02:51 B-Natriuretic Peptide 72 pg/ml (0-100) 02/28/25 02:51 Total Protein 7.8 gm/dl (6.0-8.3) 02/28/25 02:51 Albumin 4.1 gm/dl (3.4-5.0) 02/28/25 02:51 Globulin 3.7 gm/dl (2.5-4.0) 02/28/25 02:51 Albumin/Globulin Ratio 1.1 (0.9-2) 02/28/25 02:51 Adenovirus (PCR) Not Detected (NotDetected) 02/28/25 02:57 B. pertussis DNA (PCR) Not Detected (NotDetected) 02/28/25 02:57 B.parapertussis DNA PCR Not Detected (NotDetected) 02/28/25 02:57 C. pneumoniae DNA (PCR) Not Detected (NotDetected) 02/28/25 02:57 Coronavirus OC43 (PCR) Not Detected (NotDetected) 02/28/25 02:57 Coronavirus HKU1 (PCR) Not Detected (NotDetected) 02/28/25 02:57 Coronavirus 229E (PCR) Not Detected (NotDetected) 02/28/25 02:57 SARS-CoV-2 (PCR) Not Detected (NotDetected) 02/28/25 02:57 Coronavirus NL63 (PCR) Not Detected (NotDetected) 02/28/25 02:57 Human Metapneumovir PCR Not Detected (NotDetected) 02/28/25 02:57 Influenza Type A (PCR) Not Detected (NotDetected) 02/28/25 02:57 Influenza Type B (PCR) Not Detected (NotDetected) 02/28/25 02:57 M. pneumoniae (PCR) Not Detected (NotDetected) 02/28/25 02:57 Parainfluenza 1 (PCR) Not Detected (NotDetected) 02/28/25 02:57 Parainfluenza 2 (PCR) Not Detected (NotDetected) 02/28/25 02:57 Parainfluenza 3 (PCR) Not Detected (NotDetected) 02/28/25 02:57 Parainfluenza 4 (PCR) Not Detected (NotDetected) 02/28/25 02:57 RSV (PCR) Not Detected (NotDetected) 02/28/25 02:57 Entero/Rhino (PCR) DETECTED (NotDetected) A 02/28/25 02:57 Diagnostic Findings Chest x-ray as per my interpretation atelectasis, no infiltrate, tracheostomy tube in place EKG as per my interpretation :
--- NOTE | 2025-02-28 04:26 | XRay Report ---
EXAM: XR chest 1V portable CLINICAL HISTORY: Dyspnea. TECHNIQUE: An X-ray image of the chest is obtained in AP projection. COMPARISON: 07/16/2024 CR. FINDINGS: Apparent tracheostomy tube, tip not precisely seen. Needs clinical correlation. Pulmonary Parenchyma: Lungs are clear bilaterally. No evidence of consolidation, collapse, or focal opacities. No pulmonary nodules are identified. No evidence of pleural effusion or pleural thickening. Heart and Mediastinum: Heart size and shape are normal. No mediastinal widening or masses. No hilar or mediastinal lymphadenopathy. Bony Thorax: Bony thorax appears intact without fractures or deformities. Soft Tissues: Soft tissues overlying the chest wall are unremarkable. IMPRESSION: 1. No acute cardiopulmonary abnormalities are identified. 2. Apparent tracheostomy tube, tip not precisely seen. Needs clinical correlation. 3. No significant interval changes. Electronically signed by Mirza Dean 02-28-2025 04:26 AM
[2025-02-28 04:38] LABS: Magnesium 2.2 mg/dl (1.7-2.4)
--- NOTE | 2025-02-28 04:43 | Emergency Department Note ---
ED Visit Note I was consulted by the Advanced Practice Provider. I personally made/approved the management plan and take responsibility for the patient management. I performed a substantive portion of the visit. This includes the aspects of: Personally seeing the patient -MDM -I independently interpreted the following studies: portable chest x-ray: No acute infiltrates or consolidation. This is unchanged from previous chest x- rays patient will require admission to the hospital .
[2025-02-28 04:58] LABS: Base Excess VBG -8.4 mEq/L; HCO3 VBG 18 mmol/L; Oxygen Saturation VBG 75.1 %; PCO2 VBG 39 mmHg (38-50); PO2 VBG 41 mmHg; pH VBG 7.27 (7.36-7.41)
[2025-02-28 05:02] LABS: Thyroid Stimulating Hormone 0.58 uIu/ml (0.300-4.500)
[2025-02-28] MEDS: METOPROLOL TARTRATE 1 MG/ML VIAL IV STA (05:09)
[2025-02-28] MEDS ORDERED: PROMETHAZINE 6.25 MG/50.25 ML BAG IV PRN (05:12)
[2025-02-28] MEDS ORDERED: HYDROmorphone INJ 0.5 MG/0.5 ML SYR IV PRN (05:12)
[2025-02-28 05:17] LABS: Anion Gap 10.0 (3-11); Blood Urea Nitrogen 24.0 mg/dl (6-23); Calcium 8.4 mg/dl (8.6-10.3); Carbon Dioxide 17.0 mmol/L (21-32); Chloride 113.0 mmol/L (98-107); Creatinine Clr Calc Pharmacy 42.4 ml/min; Glucose 193.0 mg/dl (70-99(Fasting)); Potassium 3.7 mmol/L (3.5-5.1); Sodium 140.0 mmol/L (136-145)
[2025-02-28] MEDS: POTASSIUM CHLORIDE 20 MEQ in LACTATED RINGER'S 1,000 ML IV ONE (05:29)
[2025-02-28] MEDS ORDERED: DEXTROSE 50% 50 ML SYRINGE IV PRN (05:33)
[2025-02-28] MEDS ORDERED: CARBOHYDRATES FOR HYPOGLYCEMIA PO PRN (05:33)
[2025-02-28] MEDS ORDERED: GLUCAGON FOR INJ 1 MG VIAL SQ PRN (05:33)
[2025-02-28] MEDS ORDERED: GLUCOSE 10 TAB/TUBE PO PRN (05:33)
[2025-02-28] MEDS ORDERED: GLUCOSE 40% GEL 15 GM TUBE PO PRN (05:33)
[2025-02-28] MEDS: LANTUS PER UNIT CHARGE SQ SCH (06:02)
[2025-02-28] MEDS: INSULIN ASPART PER UNIT CHARGE SC SCH (06:03)
[2025-02-28] MEDS: guaiFENesin 600 MG TABCR PO SCH (06:31)
[2025-02-28] MEDS: HEPARIN SOD 5,000 UNIT/0.5 ML VIAL SQ SCH (06:31)
[2025-02-28] MEDS: LEVALBUTEROL 1.25 MG/3 ML NEB NEB SCH (07:11)
[2025-02-28] MEDS: IPRATROPIUM BROMIDE NEB SOLN 0.02% 0.5MG/2.5ML VIAL INH SCH (07:11)
[2025-02-28] MEDS ORDERED: ONDANSETRON INJ 2 MG/ML 2 ML VIAL IV PRN (08:04)
[2025-02-28 08:42] LABS: Base Excess VBG -6.2 mEq/L; HCO3 VBG 20 mmol/L; Oxygen Saturation VBG 83.1 %; PCO2 VBG 39 mmHg (38-50); PO2 VBG 50 mmHg; pH VBG 7.31 (7.36-7.41)
[2025-02-28] MEDS: CYANOCOBALAMIN (B-12) 500 MCG TABLET PO SCH (08:42)
[2025-02-28] MEDS: EZETIMIBE 10 MG TAB PO SCH (08:43)
[2025-02-28] MEDS: LEVOTHYROXINE SODIUM 200 MCG TABLET PO SCH (08:43)
[2025-02-28] MEDS ORDERED: FERROUS SULFATE 325 MG TAB PO SCH (09:00)
--- NOTE | 2025-02-28 15:02 | Communication Note ---
Patient seen and examined at bedside. Patient sitting comfortably in room. Utilizes vocodor device to speak. States she feels fatigued, tired, but overall ok. On exam, wheezing noted in bilateral lung galvin, on trach collar. Patient presenting with COPD exaccerbation in setting of rhinovirus infection. Goal oxygen 88% and above, wean as tolerated. Continue prednisone, supportive c are, incentive spirometer. Date of Service: February 28, 2025
[2025-02-28] MEDS: ACETAMINOPHEN 325 MG TAB PO PRN (19:54)
[2025-02-28 21:20] LABS: Appearance Urine Clear (Clear); Bacteria Urine Automated None Seen (None Seen); Cast Urine Automated 0-2 /lpf (0-2); Epithelial Cell Urine Auto 0-2 /hpf (0-2); Glucose Urine UA 2+ (Negative); RBC Urine Automated 0-2 /hpf (0-2); WBC Urine Automated 0-5 /hpf (0-5)
[2025-03-01 07:32] LABS: Base Excess VBG -1.4 mEq/L; HCO3 VBG 23 mmol/L; Oxygen Saturation VBG 89.3 %; PCO2 VBG 36 mmHg (38-50); PO2 VBG 54 mmHg; pH VBG 7.41 (7.36-7.41)
[2025-03-01] MEDS: OPTIRAY 320 125ml IV ONE (08:08)
[2025-03-01] MEDS: predniSONE 20 MG TAB PO SCH (08:43)
--- NOTE | 2025-03-01 08:45 | CT Scan Report ---
CT ANGIOGRAM OF THE CHEST CLINICAL HISTORY: Shortness of breath. Evaluate for pulmonary embolus. COMPARISON STUDY: Chest radiograph February 28, 2025. Chest CT October 15, 2022. TECHNIQUE: Following the IV administration of 112 cc of Optiray 320, CT angiogram of the chest was pe rformed from the upper abdomen to the thoracic inlet utilizing the pulmonary embolus protocol. Images are reviewed in the axial, sagittal, and coronal planes. 3-D MIPS images are created and assessed. I V contrast was administered without complication. A dose lowering technique was utilized adhering to the principles of ALARA. CT DOSE: 911.2 mGy.cm FINDINGS: No pulmonary emboli are and 5 although subsegmental pulmonary arteries are suboptimally ass essed due to respiratory motion. There is no thoracic aortic dissection. Moderate cardiomegaly is aga in noted as well as moderate coronary artery calcification. A trace left pleural effusion is unchange d. There is no pneumothorax. Lungs are suboptimally assessed due to respiratory motion. A 7 mm subple ural left upper lobe nodule on image 198 of [address] of October 15, 2022. An 8 mm grou ndglass left upper lobe nodule on image 178 is also unchanged. No consolidation is identified. Trache ostomy tube is in place. Circumferential wall thickening of the trachea and central airways with surr ounding infiltration is similar to chest CT of October 15, 2022. Diffuse airway narrowing is noted. Loni gs are suboptimally assessed due to respiratory motion. Visualized portions of the upper abdomen agai n demonstrate pneumobilia. A small left adrenal nodule is unchanged. This is benign. IMPRESSION: 1. No pulmonary emboli identified although subsegmental pulmonary arteries suboptimally assessed due to respiratory motion. 2. No consolidation to suggest pneumonia. 3. Circumferential wall thickening of the trachea and central airways with surrounding infiltration. Diffuse airway narrowing. Findings similar to CT of October 15, 2022. The findings suggest a nonspecifi c tracheobronchitis. 4. Solid and ground glass left upper lobe nodules which are unchanged since prior CT. Continued imagi ng follow up to ensure stability is recommended. 5. Trace left pleural effusion, unchanged. ACT 112: Negative or not required by law. Electronically signed by: Matthieu Chappell M.D. 03/01/2025 8:42 AM
[2025-03-01 09:14] LABS: Hematocrit (blood only) 38.7 % (37.0-47.0); Hemoglobin 13.0 g/dl (12.0-16.0); Mean Corpuscular Hemoglobin 27.7 pg (25.0-34.0); Mean Corpuscular Volume 82.3 fL (80.0-100.0); Platelet Count 342 K/uL (130-400); RDW Standard Deviation 47.6 fL (36.4-46.3); Red Blood Count 4.70 M/uL (4.20-5.40); White Blood Count 8.22 K/ul (4.8-10.8)
[2025-03-01 09:35] LABS: Alanine Aminotransferase 25.0 U/L (7-52); Albumin Globulin Ratio 1.2 (0.9-2); Alkaline Phosphatase 132.0 U/L (34-104); Anion Gap 7.0 (3-11); Bilirubin,Total 0.3 mg/dl (0.2-1.0); Blood Urea Nitrogen 15.0 mg/dl (6-23); Calcium 8.7 mg/dl (8.6-10.3); Carbon Dioxide 23.0 mmol/L (21-32); Chloride 109.0 mmol/L (98-107); Creatinine Clr Calc Pharmacy 56.4 ml/min; Globulin 3.2 gm/dl (2.5-4.0); Glucose 129.0 mg/dl (70-99(Fasting)); Potassium 3.8 mmol/L (3.5-5.1); Sodium 139.0 mmol/L (136-145); Total Protein 6.9 gm/dl (6.0-8.3)
--- NOTE | 2025-03-01 14:39 | Hospitalist Progress Note ---
Date of Service March 01, 2025 Assessment & Plan (1) Acute respiratory failure with hypoxia: Plan: Assessment and plan below following discussion of case with ED provider and reviewing patient history/pertinent normal/abnormal diagnostic test results. Acute hypoxemic respiratory failure secondary to COPD exacerbation Rhinovirus infection Tracheobronchitis -worsened overnight requiring 12L of oxygen -high risk for decompensation given trach -now on room air however -tracheobronchitis likely in setting of viral illness, noted on CTA PE Plan: -transferred to PCU for higher level of monitoring given risk factors -continue prednisone, bronchopulmonary hygiene -goal sat>88% -checked CTA PE given desaturation overnight, reassuring, VBG reassuring -possible discharge tomorrow if on room air #Hypertension -monitor #HLD -does not tolerate statins #DM Type 2 -SSI #Primary Aldosteronism #Adrenal Nodules -needs outpatient endocrinology f/u #Hx of Thyroid Cancer #S/p Laryngectomy s/p Stomaplasty #Hx of Pancreatic Cancer s/p Whipple Procedure #Hx of Colon Cancer s/p resection #Hx of Gross Syndrome I spent a total of 55 minutes in direct patient care, including [id number] time with the patient and/or family, reviewing medical records, ordering and reviewing diagnostic tests, and coordinating care with other healthcare providers. This time includes: history taking, physical examination, medical decision making, counseling, ECG interpretation, imaging interpretation, lab interpretation, orders, and education, excluding time spent in the performance of separately billed services. Admission and Anticipated Discharge Date Admission Date: February 28, 2025 Subjective Patient seen and examined at bedside. Patient doing ok today. Required more oxygen overnight. SOB no worse from prior. Review of Systems Review of Systems: CONSTITUTIONAL: Patient denies fevers, chills, sweats and weight changes. EYES: Patient denies any visual symptoms. EARS, NOSE, AND THROAT: No difficulties with hearing. No symptoms of rhinitis or sore throat. CARDIOVASCULAR: Patient denies chest pains, palpitations, orthopnea and paroxysmal nocturnal dyspnea. RESPIRATORY: SOB GI: No nausea, vomiting, diarrhea, constipation, abdominal pain, hematochezia or melena. : No urinary hesitancy or dribbling. No nocturia or urinary frequency. No abnormal urethral discharge. MUSCULOSKELETAL: No myalgias or arthralgias. NEUROLOGIC: No chronic headaches, no seizures. Patient denies numbness, tingling or weakness. PSYCHIATRIC: Patient denies problems with mood disturbance. No problems with anxiety. ENDOCRINE: No excessive urination or excessive thirst. DERMATOLOGIC: Patient denies any rashes or skin changes. Physical Exam Physical Exam: Gen: A&O 3 NAD HEENT: NCAT, EOMI, not icteric. External ears normal. No rhinorrhea. Moist mucous membranes. Neck: trach noted, uses vocoder to talk Lungs: poor air movement, improving wheezing from yesterday CV: RRR, no edema. Abdomen: Soft, nondistended, No rebound tenderness. MSK: No joint swelling, no redness. Skin: No rashes, petechiae, lesions. Normal color per patient. Neuro: Normal Gait, Grossly intact. Psych: Appropriate for situation. Results & Data Results & Data Vital Signs (Past 12 Hours) Vital Signs Temp Pulse Pulse Resp BP Pulse Ox O2 Del Method 03/01/25 14:02 Trach Collar 03/01/25 13:30 73 18 93 Room Air 03/01/25 11:37 37.3 C 73 16 155/77 H 98 Trach Collar 03/01/25 10:00 Trach Collar 03/01/25 07:55 36.9 C 65 16 150/72 H 88 L Trach Collar 03/01/25 07:17 75 20 94 Trach Collar 03/01/25 07:00 75 03/01/25 05:15 91 Trach Collar 03/01/25 04:15 36.9 C 67 20 139/68 89 L Trach Collar O2 Flow Rate FiO2 03/01/25 14:02 03/01/25 13:30 03/01/25 11:37 12 40 03/01/25 10:00 03/01/25 07:55 03/01/25 07:17 12 40 03/01/25 07:00 03/01/25 05:15 9 50 03/01/25 04:15 Laboratory Results -personally reviewed, chronically elevated alk phos, downtrended creatinine, no leukocytosis Medications Administered Acetaminophen (Acetaminophen 325 Mg Tab) 650 mg PO QID PRN PRN Reason: pain/fever Stop: 03/30/25 05:11 Last Admin: 02/28/25 19:54 Dose: 650 mg Documented By: GHAZAL Amlodipine Besylate (Amlodipine Besylate 5 Mg Tab) [facility] [place]: 03/30/25 08:59 Last Admin: 03/01/25 08:44 Dose: 10 mg Documented By: Admin: 02/28/25 08:41 Dose: 10 mg Documented By: PARKER Carvedilol (Carvedilol 25 Mg Tab) 25 mg PO BIDM [facility] Stop: 03/30/25 08:59 Last Admin: 03/01/25 08:43 Dose: 25 mg Documented By: Admin: 02/28/25 19:54 Dose: 25 mg Documented By: Admin: 02/28/25 08:42 Dose: 25 mg Documented By: [facility] [place] Cyanocobalamin (Cyanocobalamin (B-12) 500 Mcg Tablet) 1,000 mcg PO DAILY [facility] Stop: 03/30/25 08:59 Last Admin: 03/01/25 08:44 Dose: 1,000 mcg Documented By: Admin: 02/28/25 08:42 Dose: 1,000 mcg Documented By: [facility] [place] Ezetimibe (Ezetimibe 10 Mg Tab) 10 mg PO QAM [facility] Stop: 03/30/25 08:59 Last Admin: 03/01/25 08:43 Dose: 10 mg Documented By: Admin: 02/28/25 08:43 Dose: 10 mg Documented By: [facility] [place] Guaifenesin (Guaifenesin 600 Mg Tabcr) 600 mg PO Q12 [facility] Stop: 03/30/25 05:34 Last Admin: 03/01/25 08:44 Dose: 600 mg Documented By: Admin: 02/28/25 19:55 Dose: 600 mg Documented By: Admin: 02/28/25 06:31 Dose: 600 mg Documented By: BEN Heparin Sodium (Porcine) (Heparin Sod 5,000 Unit/0.5 Ml Vial) 5,000 units SQ Q8 [facility] Stop: 03/30/25 05:59 Last Admin: 03/01/25 05:16 Dose: 5,000 units Documented By: Admin: 02/28/25 19:56 Dose: 5,000 units Documented By: Admin: 02/28/25 13:33 Dose: 5,000 units Documented By: Admin: 02/28/25 06:31 Dose: 5,000 units Documented By: BEN Hydralazine HCl (Hydralazine Tab 50 Mg Tab) 50 mg PO TID [facility] Stop: 03/30/25 08:59 Last Admin: 03/01/25 08:43 Dose: 50 mg Documented By: Admin: 02/28/25 19:55 Dose: 50 mg Documented By: Admin: 02/28/25 13:32 Dose: 50 mg Documented By: Admin: 02/28/25 08:41 Dose: 50 mg Documented By: PARKER Insulin Aspart (Insulin Aspart Per Unit Charge) 0 units SC ACHS [facility] Stop: 03/30/25 05:32 Last Admin: 03/01/25 12:41 Dose: Not Given Documented By: Admin: 03/01/25 08:48 Dose: 7 units Documented By: KAREN Co-signed By: MANUELITO Admin: 02/28/25 20:53 Dose: 3 units Documented By: GHAZAL Co-signed By: BENJY Admin: 02/28/25 17:47 Dose: 5 units Documented By: DEWAYNE Co-signed By: MANUELITO Admin: 02/28/25 12:27 Dose: 6 units Documented By: DEWAYNE Co-signed By: MANUELITO Admin: 02/28/25 06:03 Dose: 2 units Documented By: BEN Co-signed By: NENA Insulin Glargine (Lantus Per Unit Charge) 5 units SQ DAILY [facility] [place] Stop: 03/30/25 05:14 Last Admin: 03/01/25 08:48 Dose: 5 units Documented By: KAREN Co-signed By: MANUELITO Admin: 02/28/25 06:02 Dose: 5 units Documented By: BEN Co-signed By: NENA Ipratropium [place] (Ipratropium [place] Neb Soln 0.02% 0.5mg/2.5ml Vial) 0.5 mg INH Q6R [facility] Stop: 03/30/25 06:59 Last Admin: 03/01/25 13:30 Dose: 0.5 mg Documented By: Admin: 03/01/25 07:17 Dose: 0.5 mg Documented By: Admin: 03/01/25 00:19 Dose: 0.5 mg Documented By: luca Admin: 02/28/25 20:10 Dose: 0.5 mg Documented By: luca Admin: 02/28/25 13:18 Dose: 0.5 mg Documented By: Admin: 02/28/25 07:11 Dose: 0.5 mg Documented By: ISELA Levalbuterol HCl (Levalbuterol 1.25 Mg/3 Ml Neb) 1.25 mg NEB Q6R [facility] Stop: 03/30/25 06:59 Last Admin: 03/01/25 13:30 Dose: 1.25 mg Documented By: Admin: 03/01/25 07:17 Dose: 1.25 mg Documented By: Admin: 03/01/25 00:19 Dose: 1.25 mg Documented By: luca Admin: 02/28/25 20:10 Dose: 1.25 mg Documented By: luca Admin: 02/28/25 13:18 Dose: 1.25 mg Documented By: Admin: 02/28/25 07:11 Dose: 1.25 mg Documented By: ISELA Levothyroxine Sodium (Levothyroxine Sodium 200 Mcg Tablet) [facility] Stop: 03/30/25 06:29 Last Admin: 03/01/25 05:16 Dose: 200 mcg Documented By: Admin: 02/28/25 08:43 Dose: 200 mcg Documented By: PARKER Oxycodone HCl (Oxycodone Hcl Ir 5 Mg Tab (Immediate Release)) 5 mg PO Q4H PRN PRN Reason: Pain Stop: 03/14/25 05:11 Last Admin: 02/28/25 20:55 Dose: 5 mg Documented By: GHAZAL Pantoprazole Sodium (Pantoprazole 40 Mg Tab) 40 mg PO DAILY [facility] [place] Stop: 03/30/25 08:59 Last Admin: 03/01/25 08:43 Dose: 40 mg Documented By: Admin: 02/28/25 08:43 Dose: 40 mg Documented By: PARKER Prednisone (Prednisone 20 Mg Tab) 40 mg PO DAILY [facility] [place] Stop: 03/05/25 08:59 Last Admin: 03/01/25 08:43 Dose: 40 mg Documented By: KAREN
[2025-03-01] MEDS: CYCLOBENZAPRINE HCL 10 MG TAB PO PRN (20:38)
[2025-03-02 07:03] LABS: Hematocrit (blood only) 38.1 % (37.0-47.0); Hemoglobin 12.7 g/dl (12.0-16.0); Mean Corpuscular Hemoglobin 27.7 pg (25.0-34.0); Mean Corpuscular Volume 83.2 fL (80.0-100.0); Platelet Count 303 K/uL (130-400); RDW Standard Deviation 48.2 fL (36.4-46.3); Red Blood Count 4.58 M/uL (4.20-5.40); White Blood Count 8.15 K/ul (4.8-10.8)
[2025-03-02 07:19] LABS: Anion Gap 5.0 (3-11); Blood Urea Nitrogen 20.0 mg/dl (6-23); Calcium 8.5 mg/dl (8.6-10.3); Carbon Dioxide 27.0 mmol/L (21-32); Chloride 108.0 mmol/L (98-107); Creatinine Clr Calc Pharmacy 55.8 ml/min; Glucose 124.0 mg/dl (70-99(Fasting)); Magnesium 2.0 mg/dl (1.7-2.4); Potassium 3.7 mmol/L (3.5-5.1); Sodium 140.0 mmol/L (136-145)
--- NOTE | 2025-03-02 15:43 | Hospitalist Progress Note ---
Date of Service March 02, 2025 Assessment & Plan (1) Acute respiratory failure with hypoxia: Plan: Acute hypoxemic respiratory failure secondary to COPD exacerbation Rhinovirus infection Tracheobronchitis -worsened overnight requiring 12L of oxygen -high risk for decompensation given trach -now on room air however -tracheobronchitis likely in setting of viral illness, noted on CTA PE Plan: -continue prednisone, bronchopulmonary hygiene -goal sat>88% -possible discharge tomorrow if still on room air #Hypertension -monitor #HLD -does not tolerate statins #DM Type 2 -SSI #Primary Aldosteronism #Adrenal Nodules -needs outpatient endocrinology f/u #Hx of Thyroid Cancer #S/p Laryngectomy s/p Stomaplasty #Hx of Pancreatic Cancer s/p Whipple Procedure #Hx of Colon Cancer s/p resection #Hx of Gross Syndrome I spent a total of 45 minutes in direct patient care, including [id number] time with the patient and/or family, reviewing medical records, ordering and reviewing diagnostic tests, and coordinating care with other healthcare providers. This time includes: history taking, physical examination, medical decision making, counseling, ECG interpretation, imaging interpretation, lab interpretation, orders, and education, excluding time spent in the performance of separately billed services. Admission and Anticipated Discharge Date Admission Date: February 28, 2025 Subjective Patient seen and examined at bedside. Patient doing well today, on room air. Does not feel ready to go home yet. Review of Systems Review of Systems: CONSTITUTIONAL: Patient denies fevers, chills, sweats and weight changes. EYES: Patient denies any visual symptoms. EARS, NOSE, AND THROAT: No difficulties with hearing. No symptoms of rhinitis or sore throat. CARDIOVASCULAR: Patient denies chest pains, palpitations, orthopnea and paroxysmal nocturnal dyspnea. RESPIRATORY: SOB GI: No nausea, vomiting, diarrhea, constipation, abdominal pain, hematochezia or melena. : No urinary hesitancy or dribbling. No nocturia or urinary frequency. No abnormal urethral discharge. MUSCULOSKELETAL: No myalgias or arthralgias. NEUROLOGIC: No chronic headaches, no seizures. Patient denies numbness, tingling or weakness. PSYCHIATRIC: Patient denies problems with mood disturbance. No problems with anxiety. ENDOCRINE: No excessive urination or excessive thirst. DERMATOLOGIC: Patient denies any rashes or skin changes. Physical Exam Physical Exam: Gen: A&O 3 NAD HEENT: NCAT, EOMI, not icteric. External ears normal. No rhinorrhea. Moist mucous membranes. Neck: trach noted, uses vocoder to talk Lungs: improved air movement bilaterally CV: RRR, no edema. Abdomen: Soft, nondistended, No rebound tenderness. MSK: No joint swelling, no redness. Skin: No rashes, petechiae, lesions. Normal color per patient. Neuro: Normal Gait, Grossly intact. Psych: Appropriate for situation. Results & Data Results & Data Vital Signs (Past 12 Hours) Vital Signs Temp Pulse Pulse Resp BP Pulse Ox O2 Del Method 03/02/25 15:17 36.7 C 71 18 144/68 H 96 Trach Collar 03/02/25 15:04 92 Trach Collar 03/02/25 15:04 85 L Room Air 03/02/25 13:44 67 03/02/25 13:31 67 17 98 Room Air 03/02/25 11:00 36.7 C 66 16 135/71 98 Room Air 03/02/25 09:53 94 Room Air 03/02/25 08:48 93 Trach Collar 03/02/25 08:40 Trach Collar 03/02/25 08:00 36.8 C 60 18 98 Trach Collar 03/02/25 07:30 89 15 98 Trach Collar 03/02/25 07:28 163/77 H 03/02/25 07:00 56 L 03/02/25 04:22 36.7 C 58 L 16 139/69 96 Trach Collar O2 Flow Rate FiO2 03/02/25 15:17 3 03/02/25 15:04 3 03/02/25 15:04 03/02/25 13:44 03/02/25 13:31 21 03/02/25 11:00 03/02/25 09:53 03/02/25 08:48 4 03/02/25 08:40 03/02/25 08:00 2 03/02/25 07:30 10 28 03/02/25 07:28 03/02/25 07:00 03/02/25 04:22 Laboratory Results -personally reviewed, no leukocytosis, creatinine at baseline Medications Administered Acetaminophen (Acetaminophen 325 Mg Tab) 650 mg PO QID PRN PRN Reason: pain/fever Stop: 03/30/25 05:11 Last Admin: 02/28/25 19:54 Dose: 650 mg Documented By: GHZAAL Amlodipine Besylate (Amlodipine Besylate 5 Mg Tab) 10 mg PO QAM [facility] Stop: 03/30/25 08:59 Last Admin: 03/02/25 08:39 Dose: 10 mg Documented By: Admin: 03/01/25 08:44 Dose: 10 mg Documented By: Admin: 02/28/25 08:41 Dose: 10 mg Documented By: [facility] [place] Carvedilol (Carvedilol 25 Mg Tab) 25 mg PO BIDM [facility] Stop: 03/30/25 08:59 Last Admin: 03/02/25 08:40 Dose: 25 mg Documented By: Admin: 03/01/25 16:43 Dose: 25 mg Documented By: Admin: 03/01/25 08:43 Dose: 25 mg Documented By: Admin: 02/28/25 19:54 Dose: 25 mg Documented By: Admin: 02/28/25 08:42 Dose: 25 mg Documented By: [facility] [place] Cyanocobalamin (Cyanocobalamin (B-12) 500 Mcg Tablet) 1,000 mcg PO DAILY [facility] Stop: 03/30/25 08:59 Last Admin: 03/02/25 08:41 Dose: 1,000 mcg Documented By: Admin: 03/01/25 08:44 Dose: 1,000 mcg Documented By: Admin: 02/28/25 08:42 Dose: 1,000 mcg Documented By: [facility] [place] Cyclobenzaprine HCl (Cyclobenzaprine Hcl 10 Mg Tab) 10 mg PO HS PRN PRN Reason: muscle spasms Stop: 03/31/25 20:20 Last Admin: 03/01/25 20:38 Dose: 10 mg Documented By: LIANA Ezetimibe (Ezetimibe 10 Mg Tab) 10 mg PO QAM [facility] Stop: 03/30/25 08:59 Last Admin: 03/02/25 08:39 Dose: 10 mg Documented By: Admin: 03/01/25 08:43 Dose: 10 mg Documented By: Admin: 02/28/25 08:43 Dose: 10 mg Documented By: [facility] [place] Guaifenesin (Guaifenesin 600 Mg Tabcr) 600 mg PO Q12 [facility] Stop: 03/30/25 05:34 Last Admin: 03/02/25 08:41 Dose: 600 mg Documented By: Admin: 03/01/25 20:29 Dose: 600 mg Documented By: Admin: 03/01/25 08:44 Dose: 600 mg Documented By: Admin: 02/28/25 19:55 Dose: 600 mg Documented By: Admin: 02/28/25 06:31 Dose: 600 mg Documented By: BEN Heparin Sodium (Porcine) (Heparin Sod 5,000 Unit/0.5 Ml Vial) 5,000 units SQ Q8 [facility] Stop: 03/30/25 05:59 Last Admin: 03/02/25 15:07 Dose: 5,000 units Documented By: Admin: 03/02/25 05:56 Dose: 5,000 units Documented By: Admin: 03/01/25 20:27 Dose: 5,000 units Documented By: Admin: 03/01/25 15:13 Dose: Not Given Documented By: Admin: 03/01/25 05:16 Dose: 5,000 units Documented By: Admin: 02/28/25 19:56 Dose: 5,000 units Documented By: Admin: 02/28/25 13:33 Dose: 5,000 units Documented By: Admin: 02/28/25 06:31 Dose: 5,000 units Documented By: BEN Hydralazine HCl (Hydralazine Tab 50 Mg Tab) 50 mg PO TID [facility] Stop: 03/30/25 08:59 Last Admin: 03/02/25 15:07 Dose: 50 mg Documented By: Admin: 03/02/25 08:39 Dose: 50 mg Documented By: Admin: 03/01/25 20:28 Dose: 50 mg Documented By: Admin: 03/01/25 15:13 Dose: 50 mg Documented By: Admin: 03/01/25 08:43 Dose: 50 mg Documented By: Admin: 02/28/25 19:55 Dose: 50 mg Documented By: Admin: 02/28/25 13:32 Dose: 50 mg Documented By: Admin: 02/28/25 08:41 Dose: 50 mg Documented By: PARKER Insulin Aspart (Insulin Aspart Per Unit Charge) 0 units SC ACHS [facility] Stop: 03/30/25 05:32 Last Admin: 03/02/25 12:07 Dose: 4 units Documented By: HUMPHREY Co-signed By: KJRichard Admin: 03/02/25 08:40 Dose: 5 units Documented By: HUMPHREY Co-signed By: DAMON Admin: 03/01/25 20:27 Dose: 4 units Documented By: LIANA Co-signed By: PADMA Admin: 03/01/25 16:50 Dose: 4 units Documented By: SAMUEL Co-signed By: DAMON Admin: 03/01/25 12:41 Dose: Not Given Documented By: Admin: 03/01/25 08:48 Dose: 7 units Documented By: KAREN Co-signed By: KKRichard Admin: 02/28/25 20:53 Dose: 3 units Documented By: GHAZAL Co-signed By: BENJY Admin: 02/28/25 17:47 Dose: 5 units Documented By: DEWAYNE Co-signed By: KKRichard Admin: 02/28/25 12:27 Dose: 6 units Documented By: DEWAYNE Co-signed By: KKS Admin: 02/28/25 06:03 Dose: 2 units Documented By: BEN Co-signed By: NENA Insulin Glargine (Lantus Per Unit Charge) 5 units SQ DAILY [facility] Stop: 03/30/25 05:14 Last Admin: 03/02/25 08:40 Dose: 5 units Documented By: HUMPHREY Co-signed By: DAMON Admin: 03/01/25 08:48 Dose: 5 units Documented By: KAREN Co-signed By: KKRichard Admin: 02/28/25 06:02 Dose: 5 units Documented By: BEN Co-signed By: NENA Ipratropium [place] (Ipratropium [place] Neb Soln 0.02% 0.5mg/2.5ml Vial) 0.5 mg INH Q6R [facility] Stop: 03/30/25 06:59 Last Admin: 03/02/25 13:31 Dose: 0.5 mg Documented By: [id number] Admin: 03/02/25 07:30 Dose: 0.5 mg Documented By: [id number] Admin: 03/02/25 00:06 Dose: 0.5 mg Documented By: Admin: 03/01/25 19:35 Dose: 0.5 mg Documented By: Admin: 03/01/25 13:30 Dose: 0.5 mg Documented By: Admin: 03/01/25 07:17 Dose: 0.5 mg Documented By: Admin: 03/01/25 00:19 Dose: 0.5 mg Documented By: luca Admin: 02/28/25 20:10 Dose: 0.5 mg Documented By: luca Admin: 02/28/25 13:18 Dose: 0.5 mg Documented By: Admin: 02/28/25 07:11 Dose: 0.5 mg Documented By: ISELA Levalbuterol HCl (Levalbuterol 1.25 Mg/3 Ml Neb) 1.25 mg NEB Q6R [facility] Stop: 03/30/25 06:59 Last Admin: 03/02/25 13:31 Dose: 1.25 mg Documented By: [id number] Admin: 03/02/25 07:30 Dose: 1.25 mg Documented By: [id number] Admin: 03/02/25 00:06 Dose: 1.25 mg Documented By: Admin: 03/01/25 19:35 Dose: 1.25 mg Documented By: Admin: 03/01/25 13:30 Dose: 1.25 mg Documented By: Admin: 03/01/25 07:17 Dose: 1.25 mg Documented By: Admin: 03/01/25 00:19 Dose: 1.25 mg Documented By: luca Admin: 02/28/25 20:10 Dose: 1.25 mg Documented By: luca Admin: 02/28/25 13:18 Dose: 1.25 mg Documented By: Admin: 02/28/25 07:11 Dose: 1.25 mg Documented By: ISELA Levothyroxine Sodium (Levothyroxine Sodium 200 Mcg Tablet) 200 mcg PO DAILYBB [facility] Stop: 03/30/25 06:29 Last Admin: 03/02/25 05:56 Dose: 200 mcg Documented By: Admin: 03/01/25 05:16 Dose: 200 mcg Documented By: Admin: 02/28/25 08:43 Dose: 200 mcg Documented By: PARKER Oxycodone HCl (Oxycodone Hcl Ir 5 Mg Tab (Immediate Release)) 5 mg PO Q4H PRN PRN Reason: Pain Stop: 03/14/25 05:11 Last Admin: 03/01/25 20:26 Dose: 5 mg Documented By: Admin: 02/28/25 20:55 Dose: 5 mg Documented By: GHAZAL Pantoprazole Sodium (Pantoprazole 40 Mg Tab) 40 mg PO DAILY [facility] Stop: 03/30/25 08:59 Last Admin: 03/02/25 08:41 Dose: 40 mg Documented By: Admin: 03/01/25 08:43 Dose: 40 mg Documented By: Admin: 02/28/25 08:43 Dose: 40 mg Documented By: PARKER Prednisone (Prednisone 20 Mg Tab) 40 mg PO DAILY [facility] Stop: 03/05/25 08:59 Last Admin: 03/02/25 08:39 Dose: 40 mg Documented By: Admin: 03/01/25 08:43 Dose: 40 mg Documented By: KAREN
--- NOTE | 2025-03-02 19:30 | XRay Report ---
Technique: A frontal view of the chest was obtained Comparison is made to the prior examination dated 02/28/2025 Findings: There are no confluent pulmonary infiltrates. The heart size is within normal limits. No pleural effusion or pneumothorax is seen. There is no definite pulmonary nodule. No fracture is noted. No foreign body is seen Impression: No active disease Electronically signed by Raúl Lozano 03-02-2025 7:30 PM
--- NOTE | 2025-03-02 22:54 | Electrocardiogram Report ---
Test Reason : Blood Pressure : */* mmHG Vent. Rate : 85 BPM Atrial Rate : 85 BPM P-R Int : 150 ms QRS Dur : 88 ms QT Int : 392 ms P-R-T Axes : 81 15 61 degrees QTcB Int : 466 ms Normal sinus rhythm Possible Left atrial enlargement Borderline ECG When compared with ECG of 16-Jul-2024 08:03, QRS axis Shifted right Confirmed by Ta Salas ([id number]) on 03/02/2025 10:54:04 PM Referred By: REFERRED SELF Confirmed By: Ta Salas
--- NOTE | 2025-03-02 22:54 | Electrocardiogram Report ---
Test Reason : Blood Pressure : */* mmHG Vent. Rate : 78 BPM Atrial Rate : 78 BPM P-R Int : 156 ms QRS Dur : 86 ms QT Int : 412 ms P-R-T Axes : 73 4 58 degrees QTcB Int : 469 ms Normal sinus rhythm Septal infarct , age undetermined Abnormal ECG When compared with ECG of 28-Feb-2025 02:55, Septal infarct is now Present Confirmed by Ta Salas ([id number]) on 03/02/2025 10:54:28 PM Referred By: REFERRED SELF Confirmed By: Ta Salas
[2025-03-03 07:09] LABS: Hematocrit (blood only) 38.3 % (37.0-47.0); Hemoglobin 13.0 g/dl (12.0-16.0); Mean Corpuscular Hemoglobin 28.1 pg (25.0-34.0); Mean Corpuscular Volume 82.9 fL (80.0-100.0); Platelet Count 291 K/uL (130-400); RDW Standard Deviation 45.8 fL (36.4-46.3); Red Blood Count 4.62 M/uL (4.20-5.40); White Blood Count 9.92 K/ul (4.8-10.8)
[2025-03-03 07:34] LABS: Anion Gap 6.0 (3-11); Blood Urea Nitrogen 17.0 mg/dl (6-23); Calcium 8.5 mg/dl (8.6-10.3); Carbon Dioxide 26.0 mmol/L (21-32); Chloride 107.0 mmol/L (98-107); Creatinine Clr Calc Pharmacy 63.5 ml/min; Glucose 156.0 mg/dl (70-99(Fasting)); Potassium 3.6 mmol/L (3.5-5.1); Sodium 139.0 mmol/L (136-145)
[2025-03-03 07:59] VITALS: BP 135/75; RESP 20; TEMP 98.6
[2025-03-03 10:41] VITALS: PULSE 71
[2025-03-03 11:12] VITALS: O2SAT 91
--- NOTE | 2025-03-03 12:10 | Discharge Summary ---
Discharge Summary Date of Service March 03, 2025 Principal Dx & Hospital Course #1 = Principal Diagnosis (1) Acute respiratory failure with hypoxia: Acute hypoxemic respiratory failure secondary to COPD exacerbation Rhinovirus infection Tracheobronchitis -worsened overnight requiring 12L of oxygen -high risk for decompensation given trach -now on room air however -tracheobronchitis likely in setting of viral illness, noted on CTA PE Plan: -continue prednisone, bronchopulmonary hygiene -goal sat>88% -possible discharge tomorrow if still on room air #Hypertension -monitor #HLD -does not tolerate statins #DM Type 2 -SSI #Primary Aldosteronism #Adrenal Nodules -needs outpatient endocrinology f/u #Hx of Thyroid Cancer #S/p Laryngectomy s/p Stomaplasty #Hx of Pancreatic Cancer s/p Whipple Procedure #Hx of Colon Cancer s/p resection #Hx of Gross Syndrome Notes For Next Care Provider 69 yo female with pmhx of Medical history significant for hypertension, hyperlipidemia, COPD, DM2 on oral medications, primary aldosteronism, recurrent thyroid cancer status post surgery/BRAND therapy, postsurgical hypothyroidism, history of post laryngectomy stoma stenosis status post stomaplasty, pancreatic cancer status post surgery, colon cancer status post surgery, GERD, history of Gross syndrome/FAP, history of MRSA as per records, past tobacco abuse who presented for SOB from home. On medicine, found to be positive for rhinovirus. Titrated down to room air. Occasionally required oxygen during night, asymptomatic. Discussed with patient, has been suggested has sleep apnea at night. Did well on room air. On 03/03/2025 patient medically stable for discharge at home. To do: [ ] f/u with pulmonology Medication Changes From Visit -prednisone x5 days Admission HPI Per Admitting Provider History obtained from patient and records. Medical history significant for hypertension, hyperlipidemia, COPD, DM2 on oral medications, primary aldosteronism, recurrent thyroid cancer status post surgery/BRAND therapy, postsurgical hypothyroidism, history of post laryngectomy stoma stenosis status post stomaplasty, pancreatic cancer status post surgery, colon cancer status post surgery, GERD, history of Gross syndrome/FAP, history of MRSA as per records, past tobacco abuse. Last confinement July 2024 for respiratory failure secondary to mucous plugging. 1 day history of dry cough symptoms with worsening shortness of breath and wheezing at home. Sick contacts during trip to [facility] 2 days ago. Denies chest pain, denies fluid retention. No fever, no chills. Fair appetite. O2 sats noted to be 80s on room air upon EMS arrival at patient's home. Solu-Medrol and neb treatment administered at the ER. 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 External ears normal. No rhinorrhea. Moist mucous membranes. Neck: trach noted, uses vocoder to talk Lungs: improved air movement bilaterally CV: RRR, no edema. Abdomen: Soft, nondistended, No rebound tenderness. MSK: No joint swelling, no redness. Skin: No rashes, petechiae, lesions. Normal color per patient. Neuro: Normal Gait, Grossly intact. Psych: Appropriate for situation. Updated Medication List Medication Instructions Recorded Confirmed Type losartan 100 mg tablet (Cozaar) 100 mg PO QAM 08/09/19 02/28/25 History repaglinide 1 mg tablet 0.5 mg PO UD 11/27/21 02/28/25 History amlodipine 10 mg tablet 10 mg PO QAM 07/30/22 02/28/25 History blood-glucose sensor (Dexcom G6 07/30/22 06/16/23 History Sensor device) carvedilol 25 mg tablet 25 mg PO BID 07/30/22 02/28/25 History levothyroxine 200 mcg tablet 200 mcg PO DAILYBB 07/30/22 02/28/25 History cyclobenzaprine 10 mg tablet 10 mg PO HS PRN Muscle Spasm 10/15/22 02/28/25 History cyanocobalamin (vitamin B-12) 1,000 mcg PO DAILY 06/16/23 02/28/25 History 1,000 mcg tablet (Vitamin B-12) ezetimibe 10 mg tablet 10 mg PO QAM 06/16/23 02/28/25 History ipratropium 0.5 mg-albuterol 3 mg 3 ml inhalation Q6 PRN Shortness 06/16/23 02/28/25 History (2.5 mg base)/3 mL nebulization Of Breath Or Wheezing soln ferrous sulfate 325 mg (65 mg 325 mg PO TID 01/23/24 02/28/25 History iron) tablet metformin 500 mg tablet,extended 500 mg PO BID 01/23/24 02/28/25 History release 24 hr pantoprazole 40 mg tablet,delayed 40 mg PO DAILY 01/23/24 02/28/25 History release repaglinide 2 mg tablet 2 mg PO BIDM 01/23/24 02/28/25 History guaifenesin 600 mg tablet, 1,200 mg (2 x 600 mg) PO BID #20 03/14/24 02/28/25 Rx extended release 12 hr (Mucinex) tabs albuterol sulfate 90 mcg/actuation 1 - 2 puff inhalation Q6H PRN 07/16/24 02/28/25 History aerosol inhaler SOB/WHEEZING beclomethasone dipropionate 40 1 inh inhalation DAILY 07/16/24 02/28/25 History mcg/actuation HFA breath activated aerosol (Qvar RediHaler) sodium chloride 7 % for See Rx Instructions .ROUTE 07/16/24 02/28/25 History nebulization .COMPLEX PRN SOB tiotropium bromide 2.5 1 puff inhalation DAILY 07/16/24 02/28/25 History mcg/actuation mist for inhalation (Spiriva Respimat) hydralazine 50 mg tablet 50 mg PO TID #90 tabs 07/17/24 02/28/25 Rx prednisone 20 mg tablet 40 mg (2 x 20 mg) PO DAILY 5 days 03/03/25 Rx #10 tabs Hospital Stay Data Consultations 02/28/25 03:59 ED Decision to Admit Stat Diagnostic Imagining Performed 03/01/25 07:15 CT angio chest PE protocol Urgent Pending Results Patient Have Any Pending Studies at Discharge: No Discharge Instructions Given to Patient (Per Discharging Provider) Diagnosis: rhinovirus infection, likely sleep apnea, acute on chronic respiratory failure Follow Up: PCP, pulmonary Incidentals: ground glass opacities in upper lobes similar to prior 1. Please follow up with PCP, pulmonary, sleep medicine 2. Stay hydrated! 3. Finish course of steroids and take meds as prescribed. Total Time Total Time Spent Total Time Spent (In Minutes): I spent a total of 35 minutes in direct patient care, including [id number] time with the patient and/or family, reviewing medical records, ordering and reviewing diagnostic tests, and coordinating care with other healthcare providers. This time includes: history taking, physical examination, medical decision making, counseling, ECG interpretation, imaging interpretation, lab interpretation, orders, and education, excluding time spent in the performance of separately billed services.
== END 2025-03-03 12:20 | disposition home or self-care (01) | DRG 190 ==
LOC: ED 02:42 → EDINP 04:22 → 2W 05:33 → 2E 03-01 12:33

== ENCOUNTER 2025-03-04 03:25 | Inpatient (IN) ==
--- NOTE | 2025-03-04 03:36 | Emergency Department Note ---
History of Present Illness General Chief complaint: Shortness of Breath/Dyspnea Stated complaint: SHORTNESS OF BREATH Time Seen by Provider: 03/04/25 03:30 History of Present Illness This 69-year-old female who was recently discharged from our facility with a past medical history of hypertension, hyperlipidemia, COPD, DM2 on oral medications, primary aldosteronism, recurrent thyroid cancer status post surgery/BRAND therapy, postsurgical hypothyroidism, history of post laryngectomy stoma stenosis status post stomaplasty, pancreatic cancer status post surgery, colon cancer status post surgery, GERD, history of Gross syndrome/FAP, history of MRSA as per records, past tobacco abuse presents ER for worsening shortness of breath cough and not feeling well. Patient denies fever, chills, productive cough, abdominal pain. EMS gave Solu-Medrol and DuoNeb. EMS states sats were in the 80s when they arrived on scene. Patient was placed on oxygen and O2 sats improved. Home Medications Medication Instructions Recorded Confirmed Type losartan 100 mg tablet (Cozaar) 100 mg PO QAM 08/09/19 02/28/25 History repaglinide 1 mg tablet 0.5 mg PO UD 11/27/21 02/28/25 History amlodipine 10 mg tablet 10 mg PO QAM 07/30/22 02/28/25 History blood-glucose sensor (Dexcom G6 07/30/22 06/16/23 History Sensor device) carvedilol 25 mg tablet 25 mg PO BID 07/30/22 02/28/25 History levothyroxine 200 mcg tablet 200 mcg PO DAILYBB 07/30/22 02/28/25 History cyclobenzaprine 10 mg tablet 10 mg PO HS PRN Muscle Spasm 10/15/22 02/28/25 History cyanocobalamin (vitamin B-12) 1,000 mcg PO DAILY 06/16/23 02/28/25 History 1,000 mcg tablet (Vitamin B-12) ezetimibe 10 mg tablet 10 mg PO QAM 06/16/23 02/28/25 History ipratropium 0.5 mg-albuterol 3 mg 3 ml inhalation Q6 PRN Shortness 06/16/23 02/28/25 History (2.5 mg base)/3 mL nebulization Of Breath Or Wheezing soln ferrous sulfate 325 mg (65 mg 325 mg PO TID 01/23/24 02/28/25 History iron) tablet metformin 500 mg tablet,extended 500 mg PO BID 01/23/24 02/28/25 History release 24 hr pantoprazole 40 mg tablet,delayed 40 mg PO DAILY 01/23/24 02/28/25 History release repaglinide 2 mg tablet 2 mg PO BIDM 01/23/24 02/28/25 History guaifenesin 600 mg tablet, 1,200 mg (2 x 600 mg) PO BID #20 03/14/24 02/28/25 Rx extended release 12 hr (Mucinex) tabs albuterol sulfate 90 mcg/actuation 1 - 2 puff inhalation Q6H PRN 07/16/24 02/28/25 History aerosol inhaler SOB/WHEEZING beclomethasone dipropionate 40 1 inh inhalation DAILY 07/16/24 02/28/25 History mcg/actuation HFA breath activated aerosol (Qvar RediHaler) sodium chloride 7 % for See Rx Instructions .ROUTE 07/16/24 02/28/25 History nebulization .COMPLEX PRN SOB tiotropium bromide 2.5 1 puff inhalation DAILY 07/16/24 02/28/25 History mcg/actuation mist for inhalation (Spiriva Respimat) hydralazine 50 mg tablet 50 mg PO TID #90 tabs 07/17/24 02/28/25 Rx prednisone 20 mg tablet 40 mg (2 x 20 mg) PO DAILY 5 days 03/03/25 Rx #10 tabs Allergies Allergy/AdvReac Type Severity Reaction Status Date / Time zolpidem [From Ambien] Allergy Severe pysch Verified 07/16/24 09:24 complications, dizzy NSAIDS (Non-Steroidal Allergy Intermediate Ulcer & Verified 07/16/24 09:24 Anti-Inflamma anemia hydrochlorothiazide AdvReac Intermediate Acute Verified 07/16/24 09:24 kidney injury rosuvastatin [From Crestor] AdvReac Intermediate Elavated Verified 07/16/24 09:24 liver function test Past Med/Surg History Problem List (Updated 03/04/25 @ 03:36 by Sangeeta Bustillos PA-C) Rhinovirus infection (Acute) Mucus plugging of bronchi (Acute) Acute hypoxemic respiratory failure Hypoxic (Acute) Shortness of breath (Acute) Acute respiratory failure with hypoxia Acute kidney injury superimposed on CKD Type 2 diabetes mellitus Diabetes mellitus type 2, controlled, without complications Acute respiratory failure due to COVID-19 Acute exacerbation of chronic obstructive airways disease (Acute) Sepsis Hypoxia (Acute) Tracheobronchitis, acute or subacute, with bronchospasm or obstruction (Acute) Profound anemia Tracheostomy in place (Acute) Encounter for pre-operative examination Familial adenomatous polyposis Hypertensive urgency Acute exacerbation of chronic obstructive pulmonary disease (COPD) (Acute) Hypoxia (Acute) Hypertension (Acute) SOB (shortness of breath) (Acute) Wheezing (Acute) ALONA (acute kidney injury) (Acute) Metabolic acidosis Asthma exacerbation Acute kidney injury H/O deep venous thrombosis Psoriasis Hypoxia (Acute) URI (upper respiratory infection) Status post tracheostomy Acute and chronic respiratory failure with hypoxia COPD with acute exacerbation Acute bronchitis Multiple pulmonary nodules Osteoarthritis of knees, bilateral Stenosis of tracheal stoma CKD (chronic kidney disease), stage III Chronic obstructive pulmonary disease Diabetes History of Whipple procedure X 2-LAST 2012 Hyperlipidemia Hypertension History of thyroid cancer Papillary thyroid carcinoma (with throat cancer per patient) 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 S/p stomaplasty (11/2020) and tracheostoma revision (05/2021) S/p thyroidectomy No chemo or XRT History of throat cancer Dxed 2006- s/p laryngectomy with trach placement No chemo or XRT History of pancreatic cancer 2016 S/p Whipple procedure No chemo or XRT Hypoxia Medical History Coagulopathy Hypothyroidism associated with surgical procedure Adrenal adenoma History of colon cancer Dx'ed in 2002 (has familial adenomatous polyposis) S/p ileostomy and then J pouch procedure No chemo or XRT Tracheostomy in place No current issues DVT (deep venous thrombosis) WITH SURGERY TRACH 2004-WAS ON BLOOD THINNER FOR A PERIOD OF TIME-THEN OFF-NO ISSUES SINCE Murmur, cardiac F/U DR DEE ACEVEDO No murmur per routine 06/2021 cardio visit SOB (shortness of breath) on exertion Asthma Surgical History History of hernia repair 12/15/21 @ [facility] History of radical neck dissection WITH TRACHEOSTOMY-2004 History of bowel resection WITH J POUCH History of colonoscopy History of esophagogastroduodenoscopy (EGD) History of thyroidectomy Family History Family/Other Heart disease Lung disease Cancer Father Family hx of colon cancer Sister Family hx of colon cancer Other No family history of adverse response to anesthesia Social History Smoking Status: Former smoker Tobacco Type: Cigarettes Second Hand Exposure: No; Do You Dip or Chew Tobacco: No; Hx Alcohol Use: No Hx Substance Use: No Preferred Language: Serbian Communication Ability: Effective Communication Ability Comment: Patient uses a Cervox since she has 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 Ditch Cleaner Required: No Beliefs That Will Affect Care: None marital status: Current Living Situation: Alone current occupational status: disabled Feels Safe at Home: Yes Assistive Devices: None Review of Systems A total of 10 systems reviewed and were otherwise negative Physical Exam Vital Signs Vital Signs - 24 hr 03/04/25 03:19 03/04/25 03:19 03/04/25 03:31 Temperature Temperature Source Pulse Rate Pulse Rate [Right Finger] Pulse Rate from SpO2 Sensor Pulse Rhythm Pulse Strength Respiratory Rate Respiratory Effort / Characteristics Labored Respiratory Depth Deep Respiratory Pattern Regular Blood Pressure Blood Pressure Mean Blood Pressure Position Pulse Oximetry 99 99 Oxygen Delivery Method Trach Collar Trach Collar Trach Collar Oxygen Flow Rate 8 8 8 Fraction of Inspired Oxygen Sepsis Recent Fever Within 48 Hours Sepsis New/Unexplained Change in Mental Status Sepsis Action Taken by Nursing Oxygen Flow Rate - Titration Fraction of Inspired Oxygen - Titration Pulse Oximetry Post Tiitration 03/04/25 03:42 03/04/25 03:54 03/04/25 04:05 Temperature 36.2 C L Temperature Source Oral Pulse Rate 94 H 91 H 91 H Pulse Rate [Right Finger] Pulse Rate from SpO2 Sensor 91 H Pulse Rhythm Regular Pulse Strength Normal Respiratory Rate 17 26 H Respiratory Effort / Characteristics Non-Labored Respiratory Depth Normal Respiratory Pattern Regular Blood Pressure 204/118 H Blood Pressure Mean 146 Blood Pressure Position Sitting Pulse Oximetry 99 99 Oxygen Delivery Method Trach Collar Trach Collar Oxygen Flow Rate 8 8 Fraction of Inspired Oxygen Sepsis Recent Fever Within 48 Hours No Sepsis New/Unexplained Change in Mental Status No Sepsis Action Taken by Nursing No Action Required Oxygen Flow Rate - Titration Fraction of Inspired Oxygen - Titration Pulse Oximetry Post Tiitration 03/04/25 04:45 03/04/25 05:00 03/04/25 05:10 Temperature Temperature Source Pulse Rate 94 H 98 H Pulse Rate [Right Finger] Pulse Rate from SpO2 Sensor 95 H 98 H Pulse Rhythm Pulse Strength Respiratory Rate 27 H 28 H Respiratory Effort / Characteristics Respiratory Depth Respiratory Pattern Blood Pressure 181/100 H 147/87 H Blood Pressure Mean 134 98 Blood Pressure Position Pulse Oximetry 97 97 99 Oxygen Delivery Method Trach Collar Trach Collar High Flow Nasal Cannula Trach Collar Oxygen Flow Rate 8 8 8 Fraction of Inspired Oxygen 40 Sepsis Recent Fever Within 48 Hours Sepsis New/Unexplained Change in Mental Status Sepsis Action Taken by Nursing Oxygen Flow Rate - Titration 8 Fraction of Inspired Oxygen - Titration 40 Pulse Oximetry Post Tiitration 95 03/04/25 05:24 Temperature Temperature Source Pulse Rate Pulse Rate [Right Finger] 84 Pulse Rate from SpO2 Sensor Pulse Rhythm Pulse Strength Respiratory Rate 23 Respiratory Effort / Characteristics Spontaneous Labored Retracting Short of Breath Respiratory Depth Respiratory Pattern Blood Pressure Blood Pressure Mean Blood Pressure Position Pulse Oximetry 98 Oxygen Delivery Method Trach Collar Oxygen Flow Rate 8 Fraction of Inspired Oxygen 40 Sepsis Recent Fever Within 48 Hours Sepsis New/Unexplained Change in Mental Status Sepsis Action Taken by Nursing Oxygen Flow Rate - Titration Fraction of Inspired Oxygen - Titration Pulse Oximetry Post Tiitration VITALS: Vitals are noted on the nurse's note and reviewed by myself. Vital signs reviewed GENERAL: White female with trach in place on nebulizer, in no acute distress, nondiaphoretic, well-developed well-nourished. SKIN: Capillary reflex less than 2 seconds. HEENT: Normocephalic. PERRLA. EOMI. Nares patent. Mucous membranes moist. Neck is supple without nuchal rigidity. HEART: Regular rate and rhythm LUNGS: Diffuse inspiratory and end expiratory wheezes. No retractions or accessory muscle use. ABDOMEN: Positive bowel sounds x 4. Normal tympanic percussion. Soft, nontender, without masses or organomegaly. Castorena sign negative. No guarding or rebound tenderness. no CVA tenderness MUSCULOSKELETAL: No gross musculoskeletal defects. NEURO: Patient was alert and oriented to person place and time. No focal neurological deficits. Course Administered Medications Discontinued Medications Albuterol (Albut/Ipratrop 3mg/0.5mg Neb 3 Ml Vial) 3 ml NEB NOW STA; Protocol Stop: 03/04/25 03:32 Last Admin: 03/04/25 04:19 Dose: 3 ml Documented By: ARIANE Budesonide (Budesonide 0.5 Mg/2 Ml Vial (Pulmicort)) 0.5 mg NEB NOW STA Stop: 03/04/25 05:10 Last Admin: 03/04/25 05:22 Dose: 0.5 mg Documented By: NICK Formoterol Fumarate (Formoterol 20 Mcg/2 Ml Vial) 20 mcg NEB NOW STA Stop: 03/04/25 05:10 Last Admin: 03/04/25 05:22 Dose: 20 mcg Documented By: NICK Piperacillin Sod/Tazobactam Sod (Zosyn) 4.5 gm in 100 mls @ 200 mls/hr IV NOW ONE; Protocol Stop: 03/04/25 04:00 Last Infusion: 03/04/25 05:11 Dose: Infused Documented By: Admin: 03/04/25 04:19 Dose: 200 mls/hr Documented By: ARIANE Magnesium Sulfate/Dextrose (Magnesium Sulfate / D5w) 1 gm in 100 mls @ 600 mls/hr IV Q10M LAURA Stop: 03/04/25 04:20 Last Infusion: 03/04/25 05:11 Dose: Infused Documented By: Admin: 03/04/25 04:39 Dose: 600 mls/hr Documented By: Infusion: 03/04/25 04:38 Dose: Infused Documented By: Admin: 03/04/25 04:19 Dose: 600 mls/hr Documented By: ARIANE Sodium Chloride (Nss) 500 mls @ 999 mls/hr IV .Q31M ONE Stop: 03/04/25 04:32 Last Infusion: 03/04/25 05:12 Dose: Infused Documented By: Admin: 03/04/25 04:20 Dose: 999 mls/hr Documented By: ARIANE Sodium Chloride (Sodium Chlor 7% 4 Ml Neb) 4 ml NEB NOW STA Stop: 03/04/25 05:28 Last Admin: 03/04/25 05:34 Dose: 4 ml Documented By: NICK Critical Care Time Critical Care Time: Yes Total Critical Care Time: 65 I have personally spent 65 minutes of critical care time in the direct management of this patient. This includes bedside care, interpretation of diagnostic studies, and testing, discussion with consultants, patient, and family members, and other required patient management activities. This 65 minutes is in excess of all separately billable procedures. Medical Decision Making Medical Records Attestation: I reviewed the patient's medical records. Home Medications Current Medication List: was personally reviewed by me Laboratory Data Attestation: I reviewed the patient's lab results. 03/04/25 03:49 03/04/25 03:49 Lab Results 03/04/25 03/04/25 03/04/25 Range/Units 03:49 03:51 03:53 WBC 17.06 H (4.8-10.8) K/ul RBC 5.23 (4.20-5.40) M/uL Hgb 14.6 (12.0-16.0) g/dl POC Hgb (12.0-16.0) g/dl Hct 43.7 (37.0-47.0) % POC Hct (37-47) % MCV 83.6 (80.0-100.0) fL MCH 27.9 (25.0-34.0) pg MCHC 33.4 (32.0-36.0) g/dL RDW Std Deviation 46.0 (36.4-46.3) fL RDW Coeff of Monika 15.2 H (11.5-14.5) % Plt Count 399 (130-400) K/uL MPV 9.7 (9.4-12.4) fL Immature Gran % (Auto) 0.4 % Neut % (Auto) 78.3 % Lymph % (Auto) 12.8 % [place] % (Auto) 8.3 % Eos % (Auto) 0.0 % Baso % (Auto) 0.2 % Neut # (Auto) 13.37 H (1.40-6.50) K/uL Lymph # (Auto) 2.18 (1.20-3.40) K/uL [place] # (Auto) 1.41 H (0.11-0.59) K/uL Eos # (Auto) 0.00 (0.00-0.50) K/uL Baso # (Auto) 0.03 (0.00-0.20) K/uL Immature Gran # (Auto) 0.07 (0.01-0.20) K/uL Specimen Type Sample Site POC pH (7.35-7.45) POC pCO2 (35-46) mmHg POC pO2 (80-95) mmHg POC HCO3 (19-24) tomer/L POC Base Excess (-9-1.8) tomer/L O2 Sat Pulse Oximetry ABG pH (Temp Correct) (7.35-7.45) ABG pCO2 (Temp Corrct (35-46) mmHg POC ABG pO2 at Pt Temp POC ABG O2 Sat (90-95) % Ric Test VBG pH 7.27 L (7.36-7.41) VBG pCO2 59 H (38-50) mmHg VBG pO2 115 mmHg VBG HCO3 27 mmol/L VBG O2 Saturation 98.4 % VBG Base Excess -1.0 mEq/L O2 Delivery Device POC FiO2 % POC Sodium (135-144) mmol/L Sodium 139 (136-145) mmol/L POC Potassium (3.3-5.0) mmol/L Potassium 4.0 (3.5-5.1) mmol/L POC Chloride (101-112) mmol/L Chloride 104 (98-107) mmol/L Carbon Dioxide 26 (21-32) mmol/L POC Total CO2 (24-31) mmol/L Anion Gap 9 (3-11) POC Anion Gap (16-25) mmol/L POC BUN (7-18) mg/dl BUN 25 H (6-23) mg/dl Creatinine 0.95 (0.6-1.2) mg/dl POC Creatinine (0.6-1.3) mg/dl Est Cr Clr Drug Dosing 64.5 ml/min eGFR 65.26 BUN/Creatinine Ratio 26.3 H (10-20) Glucose 217 H (70-99(Fasting)) mg/dl POC Glucose (other) (70-99) mg/dl Lactate 1.2 (0.4-2.0) mmol/L Calcium 9.3 (8.6-10.3) mg/dl POC Ioniz Calcium Tony (1.12-1.32) mmol/l Magnesium 2.0 (1.7-2.4) mg/dl Total Bilirubin 0.5 (0.2-1.0) mg/dl Direct Bilirubin 0.2 (0-0.2) mg/dl AST 37 (13-39) U/L ALT 39 (7-52) U/L Alkaline Phosphatase 139 H (34-104) U/L Troponin I High Sens 12.4 (0-14) pg/ml Total Protein 8.0 (6.0-8.3) gm/dl Albumin 4.2 (3.4-5.0) gm/dl Procalcitonin 0.08 (0-0.5) ng/ml Adenovirus (PCR) Not Detected (NotDetected) B. pertussis DNA (PCR) Not Detected (NotDetected) B.parapertussis DNA PCR Not Detected (NotDetected) C. pneumoniae DNA (PCR) Not Detected (NotDetected) Coronavirus OC43 (PCR) Not Detected (NotDetected) Coronavirus HKU1 (PCR) Not Detected (NotDetected) Coronavirus 229E (PCR) Not Detected (NotDetected) SARS-CoV-2 (PCR) Not Detected (NotDetected) Coronavirus NL63 (PCR) Not Detected (NotDetected) Human Metapneumovir PCR Not Detected (NotDetected) Influenza Type A (PCR) Not Detected (NotDetected) Influenza Type B (PCR) Not Detected (NotDetected) M. pneumoniae (PCR) Not Detected (NotDetected) Parainfluenza 1 (PCR) Not Detected (NotDetected) Parainfluenza 2 (PCR) Not Detected (NotDetected) Parainfluenza 3 (PCR) Not Detected (NotDetected) Parainfluenza 4 (PCR) Not Detected (NotDetected) RSV (PCR) Not Detected (NotDetected) Entero/Rhino (PCR) DETECTED A (NotDetected) 03/04/25 03/04/25 03/04/25 Range/Units 03:57 05:04 05:30 WBC (4.8-10.8) K/ul RBC (4.20-5.40) M/uL Hgb (12.0-16.0) g/dl POC Hgb 15.3 14.6 (12.0-16.0) g/dl Hct (37.0-47.0) % POC Hct 45 43 (37-47) % MCV (80.0-100.0) fL MCH (25.0-34.0) pg MCHC (32.0-36.0) g/dL RDW Std Deviation (36.4-46.3) fL RDW Coeff of Monika (11.5-14.5) % Plt Count (130-400) K/uL MPV (9.4-12.4) fL Immature Gran % (Auto) % Neut % (Auto) % Lymph % (Auto) % [place] % (Auto) % Eos % (Auto) % Baso % (Auto) % Neut # (Auto) (1.40-6.50) K/uL Lymph # (Auto) (1.20-3.40) K/uL [place] # (Auto) (0.11-0.59) K/uL Eos # (Auto) (0.00-0.50) K/uL Baso # (Auto) (0.00-0.20) K/uL Immature Gran # (Auto) (0.01-0.20) K/uL Specimen Type Arterial Sample Site R Radial POC pH 7.16 L* (7.35-7.45) POC pCO2 63 H (35-46) mmHg POC pO2 141 H (80-95) mmHg POC HCO3 22 (19-24) tomer/L POC Base Excess -7.0 (-9-1.8) tomer/L O2 Sat Pulse Oximetry 96 ABG pH (Temp Correct) 7.163 L* (7.35-7.45) ABG pCO2 (Temp Corrct 61 H (35-46) mmHg POC ABG pO2 at Pt Temp 137 POC ABG O2 Sat 98.0 H (90-95) % Ric Test NA VBG pH 7.25 L (7.36-7.41) VBG pCO2 59 H (38-50) mmHg VBG pO2 69 mmHg VBG HCO3 26 mmol/L VBG O2 Saturation 93.7 % VBG Base Excess -2.4 mEq/L O2 Delivery Device Trach Col POC FiO2 40 % POC Sodium 140 137 (135-144) mmol/L Sodium (136-145) mmol/L POC Potassium 3.9 4.0 (3.3-5.0) mmol/L Potassium (3.5-5.1) mmol/L POC Chloride 104 (101-112) mmol/L Chloride (98-107) mmol/L Carbon Dioxide (21-32) mmol/L POC Total CO2 24 24 (24-31) mmol/L Anion Gap (3-11) POC Anion Gap 18.0 (16-25) mmol/L POC BUN 25 H (7-18) mg/dl BUN (6-23) mg/dl Creatinine (0.6-1.2) mg/dl POC Creatinine 1.0 (0.6-1.3) mg/dl Est Cr Clr Drug Dosing ml/min eGFR BUN/Creatinine Ratio (10-20) Glucose (70-99(Fasting)) mg/dl POC Glucose (other) 220 H (70-99) mg/dl Lactate (0.4-2.0) mmol/L Calcium (8.6-10.3) mg/dl POC Ioniz Calcium Tony 1.21 (1.12-1.32) mmol/l Magnesium (1.7-2.4) mg/dl Total Bilirubin (0.2-1.0) mg/dl Direct Bilirubin (0-0.2) mg/dl AST (13-39) U/L ALT (7-52) U/L Alkaline Phosphatase (34-104) U/L Troponin I High Sens (0-14) pg/ml Total Protein (6.0-8.3) gm/dl Albumin (3.4-5.0) gm/dl Procalcitonin (0-0.5) ng/ml Adenovirus (PCR) (NotDetected) B. pertussis DNA (PCR) (NotDetected) B.parapertussis DNA PCR (NotDetected) C. pneumoniae DNA (PCR) (NotDetected) Coronavirus OC43 (PCR) (NotDetected) Coronavirus HKU1 (PCR) (NotDetected) Coronavirus 229E (PCR) (NotDetected) SARS-CoV-2 (PCR) (NotDetected) Coronavirus NL63 (PCR) (NotDetected) Human Metapneumovir PCR (NotDetected) Influenza Type A (PCR) (NotDetected) Influenza Type B (PCR) (NotDetected) M. pneumoniae (PCR) (NotDetected) Parainfluenza 1 (PCR) (NotDetected) Parainfluenza 2 (PCR) (NotDetected) Parainfluenza 3 (PCR) (NotDetected) Parainfluenza 4 (PCR) (NotDetected) RSV (PCR) (NotDetected) Entero/Rhino (PCR) (NotDetected) Imaging Data Attestation: I personally reviewed and interpreted this imaging study as follows: Radiologist's Impression: Chest X-Ray 03/04/25 03:31 EXAM: XR chest 1V portable CLINICAL HISTORY: Sepsis. TECHNIQUE: An X-ray image of the chest is obtained in frontal projection. COMPARISON: 03/02/2025, CR Chest FINDINGS: Pulmonary Parenchyma: Patient is rotated Chest leads are identified No evidence of consolidation, collapse, or focal opacities. No pulmonary nodules are identified. No evidence of pleural effusion or pleural thickening. A density is seen projecting over the right hemithorax likely artifact. Heart and Mediastinum: Heart size is borderline enlarged. No mediastinal widening or masses. No hilar or mediastinal lymphadenopathy. Redemonstration of prominent aorta. Bony Thorax: Bony thorax appears intact without fractures or deformities. Soft Tissues: Soft tissues overlying the chest wall are unremarkable. IMPRESSION: 1. No evidence of consolidation/collapse. 2. No pleural effusion is identified bilaterally. 3. The previously seen opacification in left lower zone and at left costophrenic angle is not visualized on current examination. 4. Borderline cardiomegaly. 5. No other significant interval changes. Electronically signed by Mirza Dean 03-04-2025 05:07 AM [facility] Narrative Prior records/ancillary studies reviewed. Triage Nursing notes reviewed. Additional history obtained from the EMS. The patient's history was concerning for respiratory difficulties. Differential diagnosis: Etiologies such as infections, reactive airway disease, pneumonia, pneumothorax, COPD, CHF, cardiac ischemia, pulmonary embolism, musculoskeletal, gastrointestinal, as well as others were entertained. Physical examination: As above. ER treatment provided: An order was placed for continuous cardiac monitoring. The monitor shows a rate of 60-100 with a sinus rhythm per my interpretation. Nebulizer, Zosyn. EMS already gave him Solu-Medrol and a nebulizer. Magnesium was ordered I had respiratory come down and deep suction the patient. Patient agreed improvement with suction. Budesonide, formoterol and hypertonic saline nebs were ordered. Patient was given vancomycin. On reassessment the patient felt better. Diagnostic interpretation by me: The electrocardiogram was ordered for SOB. ECG: Normal sinus, Q waves in inferior leads, no acute ST-T wave changes, rate of 92. Impression normal sinus rhythm Q waves in inferior leads independently interpreted by myself The labs Independently Interpreted by myself revealed leukocytosis, negative lactic, glucose 220 Sputum culture pending- prior sputum culture was reviewed After patient acutely decompensated and ABG was ordered and this was reviewed. Patient was suctioned and given nebs and repeat VBG was ordered and patient is doing much better. Imaging studies: Imaging was reviewed and read by radiology Consultation: A consultation was placed with the hospitalist. The case was discussed and diagnostics were reviewed. The patient was evaluated in the ER for further treatment. Consultation was placed with the manager systems Samuel and the case was discussed. He recommends in the nebulizers and repeat VBG in 30 minutes after patient has been stabilized. This appears to be consistent with COPD exacerbation with respiratory failure. Patient still quite short of breath. Medicine was consulted case discussed. She will be evaluated for admission. She was medicated as above. She was started on antibiotics for possible bacterial infection. After patient was admitted, patient acutely decompensated and was called to the room. Patient was deep suctioned multiple times and had great improvement. She is given multiple nebulizers. ABG was much worse, 7.15. Repeat ABG was reviewed. My attending was made aware. Patient had great improvement after being suctioned and repeat nebulizers.By the evaluation outlined above emergent etiologies such as CHF, cardiac ischemia, pulmonary embolism, reactive airway disease, pneumothorax, musculoskeletal, serious bacterial infections, as well as others were deemed relatively unlikely. The pt informed about the findings as listed above. All questions were answered and pleased with the treatment. The chart was completed utilizing [employer] Speech voice recognition software. Grammatical errors, random word insertions, pronoun errors, and incomplete sentences are an occassional consequence of this system due to software limitations, ambient noise, and hardware issues. Any formal questions or concerns about the content, text, or information contained within the body of this dictation should be directly addressed to the physician assistant pressman for clarification. Impression & Plan Acute exacerbation of chronic obstructive pulmonary disease (COPD) Discharge Plan Visit Data Chief Complaint: Shortness of Breath/Dyspnea Stated Complaint: SHORTNESS OF BREATH ED Provider: Pan [facility] ED Midlevel Provider: Sangeeta Bustillos Discharge Problem: Acute exacerbation of chronic obstructive pulmonary disease (COPD) Patient Disposition: Admitted As Inpatient Condition: Fair Forms Stand Alone Forms: My [facility] [employer] Prescriptions Prescriptions: No Action losartan [Cozaar] 100 mg tablet 100 mg PO QAM cyclobenzaprine 10 mg tablet 10 mg PO HS PRN (Reason: Muscle Spasm) ipratropium-albuterol 0.5 mg-3 mg(2.5 mg base)/3 mL Solution For Nebulization 3 ml INHALATION Q6 PRN (Reason: Shortness Of Breath Or Wheezing) cyanocobalamin (vitamin B-12) [Vitamin B-12] 1,000 mcg Tablet 1,000 mcg PO DAILY ezetimibe 10 mg tablet 10 mg PO QAM repaglinide 1 mg Tablet 0.5 mg PO UD Rx Instructions: W/ evening snack carvedilol 25 mg tablet 25 mg PO BID levothyroxine 200 mcg tablet 200 mcg PO DAILYBB (DME) Dexcom G6 Sensor Device MISCELLANEOUS amlodipine 10 mg tablet 10 mg PO QAM albuterol sulfate 90 mcg/actuation HFA aerosol inhaler 1 - 2 puff INHALATION Q6H PRN (Reason: SOB/WHEEZING) Spiriva Respimat 2.5 mcg/actuation mist 1 puff INHALATION DAILY Qvar RediHaler 40 mcg/actuation HFA aerosol breath activated 1 inh INHALATION DAILY sodium chloride 7 % solution for nebulization See Rx Instructions .ROUTE .COMPLEX PRN (Reason: SOB) Rx Instructions: 7% NaCL 4 ml solution x neb x BID hydralazine 50 mg tablet 50 mg PO TID Qty: 90 0RF ferrous sulfate 325 mg (65 mg iron) Tablet 325 mg PO TID Hold Instructions: Resume on 03/10/25. metformin 500 mg tablet extended release 24 hr 500 mg PO BID repaglinide 2 mg tablet 2 mg PO BIDM pantoprazole 40 mg tablet,delayed release (DR/EC) 40 mg PO DAILY guaifenesin [Mucinex] 600 mg Tablet Extended Release 12hr 1,200 mg PO BID Qty: 20 0RF prednisone 20 mg Tablet 40 mg PO DAILY 5 Days Qty: 10 0RF Referrals Referrals: Orlin Castro MD [Primary Care Provider] -
[2025-03-04 04:06] LABS: Base Excess VBG -1.0 mEq/L; HCO3 VBG 27 mmol/L; Oxygen Saturation VBG 98.4 %; PCO2 VBG 59 mmHg (38-50); PO2 VBG 115 mmHg; pH VBG 7.27 (7.36-7.41)
[2025-03-04 04:10] LABS: Hematocrit (blood only) 43.7 % (37.0-47.0); Hemoglobin 14.6 g/dl (12.0-16.0); Immature Granulocytes # (auto) 0.07 K/uL (0.01-0.20); Immature Granulocytes % (auto) 0.4 %; Mean Corpuscular Hemoglobin 27.9 pg (25.0-34.0); Mean Corpuscular Volume 83.6 fL (80.0-100.0); Platelet Count 399 K/uL (130-400); RDW Standard Deviation 46.0 fL (36.4-46.3); Red Blood Count 5.23 M/uL (4.20-5.40); White Blood Count 17.06 K/ul (4.8-10.8)
[2025-03-04] MEDS: ALBUT/IPRATROP 3MG/0.5MG NEB 3 ML VIAL NEB STA (04:19)
[2025-03-04] MEDS: PIPERACILLIN/TAZOBACTAM 4.5 GM/100 ML BAG IV ONE (04:19)
[2025-03-04] MEDS: MAGNESIUM SULFATE / D5W 1 GM/100 ML BAG IV SCH (04:19)
[2025-03-04] MEDS: SODIUM CHLORIDE 0.9% 500 ML IV ONE (04:20)
[2025-03-04 04:27] LABS: Alanine Aminotransferase 39.0 U/L (7-52); Alkaline Phosphatase 139.0 U/L (34-104); Anion Gap 9.0 (3-11); Bilirubin,Total 0.5 mg/dl (0.2-1.0); Blood Urea Nitrogen 25.0 mg/dl (6-23); Calcium 9.3 mg/dl (8.6-10.3); Carbon Dioxide 26.0 mmol/L (21-32); Chloride 104.0 mmol/L (98-107); Creatinine Clr Calc Pharmacy 64.5 ml/min; Glucose 217.0 mg/dl (70-99(Fasting)); Magnesium 2.0 mg/dl (1.7-2.4); Potassium 4.0 mmol/L (3.5-5.1); Sodium 139.0 mmol/L (136-145); Total Protein 8.0 gm/dl (6.0-8.3)
--- NOTE | 2025-03-04 05:07 | XRay Report ---
EXAM: XR chest 1V portable CLINICAL HISTORY: Sepsis. TECHNIQUE: An X-ray image of the chest is obtained in frontal projection. COMPARISON: 03/02/2025, CR Chest FINDINGS: Pulmonary Parenchyma: Patient is rotated Chest leads are identified No evidence of consolidation, collapse, or focal opacities. No pulmonary nodules are identified. No evidence of pleural effusion or pleural thickening. A density is seen projecting over the right hemithorax likely artifact. Heart and Mediastinum: Heart size is borderline enlarged. No mediastinal widening or masses. No hilar or mediastinal lymphadenopathy. Redemonstration of prominent aorta. Bony Thorax: Bony thorax appears intact without fractures or deformities. Soft Tissues: Soft tissues overlying the chest wall are unremarkable. IMPRESSION: 1. No evidence of consolidation/collapse. 2. No pleural effusion is identified bilaterally. 3. The previously seen opacification in left lower zone and at left costophrenic angle is not visualized on current examination. 4. Borderline cardiomegaly. 5. No other significant interval changes. Electronically signed by Mirza Dean 03-04-2025 05:07 AM
[2025-03-04 05:20] LABS: Chlamydia pneumoniae PCR Not Detected (NotDetected); Coronavirus 229E PCR Not Detected (NotDetected); Coronavirus CoV-2 (COVID19)PCR Not Detected (NotDetected); Coronavirus HKU1 PCR Not Detected (NotDetected); Coronavirus NL63 PCR Not Detected (NotDetected); Coronavirus OC43PCR Not Detected (NotDetected); Human Metapneumovirus PCR Not Detected (NotDetected); Parainfluenza Virus 1 PCR Not Detected (NotDetected); Parainfluenza Virus 2 PCR Not Detected (NotDetected); Parainfluenza Virus 3 PCR Not Detected (NotDetected); Parainfluenza Virus 4 PCR Not Detected (NotDetected); Respiratory Syncytial VirusPCR Not Detected (NotDetected); Rhinovirus/Enterovirus PCR DETECTED (NotDetected)
[2025-03-04] MEDS: FORMOTEROL 20 MCG/2 ML VIAL NEB STA (05:22)
[2025-03-04] MEDS: BUDESONIDE 0.5 MG/2 ML VIAL (PULMICORT) NEB STA (05:22)
[2025-03-04 05:24] LABS: iSTAT Art Bld Gas Base Excess -7.0 meg/L (-9-1.8); iSTAT Art Bld Gas pCO2 Correct 61 mmHg (35-46); iSTAT Art Bld Gas pH Corrected 7.163 (7.35-7.45); iSTAT Arterial Blood Gas pO2 C 137
[2025-03-04] MEDS ORDERED: VANCOMYCIN CONSULT ACTIVE PRN (05:31)
[2025-03-04] MEDS: SODIUM CHLOR 7% 4 ML NEB NEB STA (05:34)
[2025-03-04 05:46] LABS: Base Excess VBG -2.4 mEq/L; HCO3 VBG 26 mmol/L; Oxygen Saturation VBG 93.7 %; PCO2 VBG 59 mmHg (38-50); PO2 VBG 69 mmHg; pH VBG 7.25 (7.36-7.41)
[2025-03-04] MEDS ORDERED: ALBUT/IPRATROP 3MG/0.5MG NEB 3 ML VIAL NEB PRN (06:14)
[2025-03-04] MEDS: DOXYCYCLINE HYCLATE 100 MG in DEXTROSE 5% MINI-B 100 ML IV STA (06:27)
[2025-03-04] MEDS: VANCOMYCIN HCL 2,000 MG in SODIUM CHLORIDE 0.9% 500 ML IV ONE (07:19)
[2025-03-04] MEDS ORDERED: CARBOHYDRATES FOR HYPOGLYCEMIA PO PRN (07:25)
[2025-03-04] MEDS ORDERED: ALBUTEROL HFA 8 GM INHALER INH PRN (07:25)
[2025-03-04] MEDS ORDERED: GLUCAGON FOR INJ 1 MG VIAL SQ PRN (07:25)
[2025-03-04] MEDS ORDERED: DEXTROSE 50% 50 ML SYRINGE IV PRN (07:25)
[2025-03-04] MEDS ORDERED: GLUCOSE 40% GEL 15 GM TUBE PO PRN (07:25)
[2025-03-04] MEDS ORDERED: NITROGLYCERIN SL 0.4 MG/TAB TAB SL PRN (07:25)
[2025-03-04] MEDS ORDERED: POLYETHYLENE (MIRALAX) 17 GM PACK PO PRN (07:25)
[2025-03-04] MEDS ORDERED: GLUCOSE 10 TAB/TUBE PO PRN (07:25)
--- NOTE | 2025-03-04 07:42 | History & Physical Report ---
Date of Service March 04, 2025 Assessment & Plan (1) Acute respiratory distress: Plan: 69-year-old female with past med history significant for diabetes, primary aldosteronism, postsurgical hypothyroidism, mixed hyperlipidemia, pancreatic duct dilated, COPD, mitral valve regurgitation, hypertension, GERD, psoriasis, insomnia, recurrent thyroid cancer s/p surgery/BRAND therapy, history of post laryngectomy stoma stenosis status post stomaplasty, pancreatic cancer s/p surgery, colon cancer status post surgery, GERD, history of Gross syndrome/FAP, history of MRSA per record, past tobacco use, was recently in the hospital for acute hypoxic respiratory failure secondary to COPD exacerbation and rhinovirus infection did okay and discharged comes back with shortness of breath. And cough. Not feeling well. Per EMS was saturating 80%. She was given IV Solu-Medrol and DuoNeb en route and oxygen and sats improved. In the ER she was started worsening shortness of breath and tachypnea and oxygen saturations going down. At the time ABG showed pH of 7.16 patient is s/p a lot of suctioning by respiratory therapy and her oxygen saturation improved and patient's seems more comfortable. Repeat ABGs VBG pH was 7.25 and patient hemodynamically stable. States she is feeling better. Denies any chest pain. Denies headache. Afebrile. No runny nose or sore throat. No nausea. Denies abdominal pain. Says he was ambulating okay. Appetite is okay. Later again patient was requiring a lot of suctioning and is getting admitted to ICU for possible bedside bronchoscopy.Patient answering by nodding her head. Acute respiratory distress COPD exacerbation Have a lot of secretions and needs frequent suctioning Possible mucous plugging Continue oxygenation Nebs [id number] and as needed Hypertonic saline with nebs Continue home inhalers IV Solu-Medrol 40 mg 3 times daily Empiric Vanco and Zosyn Pulmonary consulted and notified Possible bronchoscopy Close monitor in the ICU Entero-/rhino infection Droplet precautions Hypertension On amlodipine and Coreg and hydralazine and losartan Will monitor Hyperlipidemia On Zetia Diabetes Hold home p.o. medications Sliding scale Close monitor Hypothyroidism On Synthyroid Primary aldosteronism Adrenal nodules Needs outpatient follow-up with endocrinology History of thyroid cancer s/p surgery Status post laryngectomy and status post stomatoplasty History of pancreatic cancer status post Whipple's procedure History of colon cancer s/p surgery History of Gross syndrome DVT prophylaxis Lovenox History of Present Illness Chief Complaint: Acute respiratory distress Primary Care Provider: Orlin Castro MD 69-year-old female with past med history significant for diabetes, primary aldosteronism, postsurgical hypothyroidism, mixed hyperlipidemia, pancreatic duct dilated, COPD, mitral valve regurgitation, hypertension, GERD, psoriasis, insomnia, recurrent thyroid cancer s/p surgery/BRAND therapy, history of post laryngectomy stoma stenosis status post stomaplasty, pancreatic cancer s/p surgery, colon cancer status post surgery, GERD, history of Gross syndrome/FAP, history of MRSA per record, past tobacco use, was recently in the hospital for acute hypoxic respiratory failure secondary to COPD exacerbation and rhinovirus infection did okay and discharged comes back with shortness of breath. And cough. Not feeling well. Per EMS was saturating 80%. She was given IV Solu-Medrol and DuoNeb en route and oxygen and sats improved. In the ER she was started worsening shortness of breath and tachypnea and oxygen saturations going down. At the time ABG showed pH of 7.16 patient is s/p a lot of suctioning by respiratory therapy and her oxygen saturation improved and patient's seems more comfortable. Repeat ABGs VBG pH was 7.25 and patient hemodynamically stable. States she is feeling better. Denies any chest pain. Denies headache. Afebrile. No runny nose or sore throat. No nausea. Denies abdominal pain. Says he was ambulating okay. Appetite is okay. Later again patient was requiring a lot of suctioning and is getting admitted to ICU for possible bedside bronchoscopy.Patient answering by nodding her head. Past medical history. As mentioned above. Past surgical history. Left breast biopsy. Colonoscopy. EGD. EGD with endoscopic ultrasound. ERCP. Flexible sigmoidoscopy. Tracheostomy and laryngectomy. Removal of colon/ileostomy x 3,. Thyroidectomy. Pancreatectomy proximal total duodenectomy. Whipple's procedure. Repair of incisional hernia. Repair windpipe. Sigmoidoscopy. Right breast biopsies ultrasound. Social history. Quit smoking 2006. Smoked 1 pack a day for 30 years. No alcohol use but no drug use. Family history. Father had colon cancer. Colon polyps. Sister had colon polyps and colon cancer. Allergies Allergy/AdvReac Type Severity Reaction Status Date / Time zolpidem [From Ambien] Allergy Severe pysch Verified 07/16/24 09:24 complications, dizzy NSAIDS (Non-Steroidal Allergy Intermediate Ulcer & Verified 07/16/24 09:24 Anti-Inflamma anemia hydrochlorothiazide AdvReac Intermediate Acute Verified 07/16/24 09:24 kidney injury rosuvastatin [From Crestor] AdvReac Intermediate Elavated Verified 07/16/24 09:24 liver function test Home Medications Medication Instructions Recorded Confirmed Type albuterol sulfate 90 mcg/actuation 2 inh inhalation Q6H PRN Shortness 03/04/25 03/04/25 History aerosol inhaler Of Breath Or Wheezing amlodipine 10 mg tablet 10 mg PO DAILY 03/04/25 03/04/25 History beclomethasone dipropionate 40 1 inh inhalation DAILY 03/04/25 03/04/25 History mcg/actuation HFA breath activated aerosol (Qvar RediHaler) carvedilol 25 mg tablet 25 mg PO BID 03/04/25 03/04/25 History cyanocobalamin (vitamin B-12) 1,000 mcg PO DAILY 03/04/25 03/04/25 History 1,000 mcg tablet ezetimibe 10 mg tablet 10 mg PO DAILY 03/04/25 03/04/25 History ferrous sulfate 325 mg (65 mg 325 mg PO TID 03/04/25 03/04/25 History iron) tablet guaifenesin 600 mg tablet, 1,200 mg PO BID 03/04/25 03/04/25 History extended release 12 hr hydralazine 50 mg tablet 50 mg PO TID 03/04/25 03/04/25 History ipratropium 0.5 mg-albuterol 3 mg 3 ml inhalation Q6H PRN Shortness 03/04/25 03/04/25 History (2.5 mg base)/3 mL nebulization Of Breath Or Wheezing soln levothyroxine 200 mcg tablet 200 mcg PO DAILY 03/04/25 03/04/25 History losartan 100 mg tablet 100 mg PO DAILY 03/04/25 03/04/25 History metformin 500 mg tablet,extended 500 mg PO BID 03/04/25 03/04/25 History release 24 hr pantoprazole 40 mg tablet,delayed 40 mg PO DAILY 03/04/25 03/04/25 History release prednisone 20 mg tablet 40 mg PO DIRECTED 03/04/25 03/04/25 History repaglinide 1 mg tablet 0.5 mg PO UD 03/04/25 03/04/25 History repaglinide 2 mg tablet 2 mg PO UD 03/04/25 03/04/25 History sodium chloride 7 % for 5 ml inhalation BID PRN Shortness 03/04/25 03/04/25 History nebulization Of Breath Or Wheezing tiotropium bromide 2.5 1 inh inhalation DAILY 03/04/25 03/04/25 History mcg/actuation mist for inhalation (Spiriva Respimat) Past Med/Surg History Problem List (Updated 03/04/25 @ 07:53 by Joseph Courtney MD) Acute respiratory distress Rhinovirus infection (Acute) Mucus plugging of bronchi (Acute) Acute hypoxemic respiratory failure Hypoxic (Acute) Shortness of breath (Acute) Acute respiratory failure with hypoxia Acute kidney injury superimposed on CKD Type 2 diabetes mellitus Diabetes mellitus type 2, controlled, without complications Acute respiratory failure due to COVID-19 Acute exacerbation of chronic obstructive airways disease (Acute) Sepsis Hypoxia (Acute) Tracheobronchitis, acute or subacute, with bronchospasm or obstruction (Acute) Profound anemia Tracheostomy in place (Acute) Encounter for pre-operative examination Familial adenomatous polyposis Hypertensive urgency Acute exacerbation of chronic obstructive pulmonary disease (COPD) (Acute) Hypoxia (Acute) Hypertension (Acute) SOB (shortness of breath) (Acute) Wheezing (Acute) [place] (acute kidney injury) (Acute) Metabolic acidosis Asthma exacerbation Acute kidney injury H/O deep venous thrombosis Psoriasis Hypoxia (Acute) URI (upper respiratory infection) Status post tracheostomy Acute and chronic respiratory failure with hypoxia COPD with acute exacerbation Acute bronchitis Multiple pulmonary nodules Osteoarthritis of knees, bilateral Stenosis of tracheal stoma CKD (chronic kidney disease), stage III Chronic obstructive pulmonary disease Diabetes History of Whipple procedure X 2-LAST 2012 Hyperlipidemia Hypertension History of thyroid cancer Papillary thyroid carcinoma (with throat cancer per patient) 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 S/p stomaplasty (11/2020) and tracheostoma revision (05/2021) S/p thyroidectomy No chemo or XRT History of throat cancer Dxed 2006- s/p laryngectomy with trach placement No chemo or XRT History of pancreatic cancer 2017 S/p Whipple procedure No chemo or XRT Hypoxia Medical History Coagulopathy Hypothyroidism associated with surgical procedure Adrenal adenoma History of colon cancer Dx'ed in 2002 (has familial adenomatous polyposis) S/p ileostomy and then J pouch procedure No chemo or XRT Tracheostomy in place No current issues DVT (deep venous thrombosis) WITH SURGERY TRACH 2004-WAS ON BLOOD THINNER FOR A PERIOD OF TIME-THEN OFF-NO ISSUES SINCE Murmur, cardiac F/U DR DEE ACEVEDO No murmur per routine 06/2021 cardio visit SOB (shortness of breath) on exertion Asthma Surgical History History of hernia repair 12/15/21 @ [facility] History of radical neck dissection WITH TRACHEOSTOMY-2004 History of bowel resection WITH J POUCH History of colonoscopy History of esophagogastroduodenoscopy (EGD) History of thyroidectomy Family History Family/Other Heart disease Lung disease Cancer Father Family hx of colon cancer Sister Family hx of colon cancer Other No family history of adverse response to anesthesia Social History Smoking Status: Former smoker Tobacco Type: Cigarettes Second Hand Exposure: No; Do You Dip or Chew Tobacco: No; Hx Alcohol Use: No Hx Substance Use: No Preferred Language: Croatian Communication Ability: Effective Communication Ability Comment: Patient uses a Cervox since she has 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 [employer] Required: No Beliefs That Will Affect Care: None marital status: Current Living Situation: Alone current occupational status: disabled Feels Safe at Home: Yes Assistive Devices: None Review of Systems Review of Systems: All systems reviewed & are unremarkable except as noted in HPI & below Physical Exam Physical Exam: General- Not in acute distress Head- atraumatic Eyes- PERRL. ENT- oropharynx clear Neck- laryngostomy seen. No obvious scretions seen Lungs- clear to auscultation b/l rhonchi heard Heart- regular rhythm; no murmur, no gallop. Abdomen- normal bowel sounds, soft, nontender, no distension Extremities- no pretibial edema, no erythema seen Neuro- alert, and awake PERRL,no facial palsy; answers by nodding head, moves extremities Results & Data Results & Data Vital Signs (Past 12 Hours) Vital Signs Temp Pulse Pulse Resp BP Pulse Ox O2 Del Method 03/04/25 06:00 85 23 150/67 H 95 Trach Collar 03/04/25 05:45 86 21 119/79 99 Trach Collar 03/04/25 05:30 86 25 H 140/74 96 Trach Collar 03/04/25 05:24 84 23 98 Trach Collar 03/04/25 05:15 94 H 24 142/72 H 97 Trach Collar 03/04/25 05:10 99 High Flow Nasal Cannula, Trach Collar 03/04/25 05:00 98 H 28 H 147/87 H 97 Trach Collar 03/04/25 04:45 94 H 27 H 181/100 H 97 Trach Collar 03/04/25 04:05 91 H 03/04/25 03:54 91 H 26 H 99 Trach Collar 03/04/25 03:42 36.2 C L 94 H 17 204/118 H 99 Trach Collar 03/04/25 03:31 99 Trach Collar 03/04/25 03:19 99 Trach Collar 03/04/25 03:19 Trach Collar O2 Flow Rate FiO2 03/04/25 06:00 8 40 03/04/25 05:45 8 40 03/04/25 05:30 8 40 03/04/25 05:24 8 40 03/04/25 05:15 8 40 03/04/25 05:10 8 03/04/25 05:00 8 40 03/04/25 04:45 8 03/04/25 04:05 03/04/25 03:54 8 03/04/25 03:42 8 03/04/25 03:31 8 03/04/25 03:19 8 03/04/25 03:19 8 Diagnostic Findings Laboratory Results WBC 17.06 K/ul (4.8-10.8) H 03/04/25 03:49 RBC 5.23 M/uL (4.20-5.40) 03/04/25 03:49 Hgb 14.6 g/dl (12.0-16.0) 03/04/25 03:49 POC Hgb 14.6 g/dl (12.0-16.0) 03/04/25 05:04 Hct 43.7 % (37.0-47.0) 03/04/25 03:49 POC Hct 43 % (37-47) 03/04/25 05:04 MCV 83.6 fL (80.0-100.0) 03/04/25 03:49 MCH 27.9 pg (25.0-34.0) 03/04/25 03:49 MCHC 33.4 g/dL (32.0-36.0) 03/04/25 03:49 RDW Std Deviation 46.0 fL (36.4-46.3) 03/04/25 03:49 RDW Coeff of Monika 15.2 % (11.5-14.5) H 03/04/25 03:49 Plt Count 399 K/uL (130-400) 03/04/25 03:49 MPV 9.7 fL (9.4-12.4) 03/04/25 03:49 Immature Gran % (Auto) 0.4 % 03/04/25 03:49 Neut % (Auto) 78.3 % 03/04/25 03:49 Lymph % (Auto) 12.8 % 03/04/25 03:49 [place] % (Auto) 8.3 % 03/04/25 03:49 Eos % (Auto) 0.0 % 03/04/25 03:49 Baso % (Auto) 0.2 % 03/04/25 03:49 Neut # (Auto) 13.37 K/uL (1.40-6.50) H 03/04/25 03:49 Lymph # (Auto) 2.18 K/uL (1.20-3.40) 03/04/25 03:49 [place] # (Auto) 1.41 K/uL (0.11-0.59) H 03/04/25 03:49 Eos # (Auto) 0.00 K/uL (0.00-0.50) 03/04/25 03:49 Baso # (Auto) 0.03 K/uL (0.00-0.20) 03/04/25 03:49 Immature Gran # (Auto) 0.07 K/uL (0.01-0.20) 03/04/25 03:49 Specimen Type Arterial 03/04/25 05:04 Sample Site R Radial 03/04/25 05:04 POC pH 7.16 (7.35-7.45) L* 03/04/25 05:04 POC pCO2 63 mmHg (35-46) H 03/04/25 05:04 POC pO2 141 mmHg (80-95) H 03/04/25 05:04 POC HCO3 22 tomer/L (19-24) 03/04/25 05:04 POC Total CO2 24 mmol/L (24-31) 03/04/25 05:04 POC Base Excess -7.0 tomer/L (-9-1.8) 03/04/25 05:04 O2 Sat Pulse Oximetry 96 03/04/25 05:04 ABG pH (Temp Correct) 7.163 (7.35-7.45) L* 03/04/25 05:04 ABG pCO2 (Temp Corrct 61 mmHg (35-46) H 03/04/25 05:04 POC ABG pO2 at Pt Temp 137 03/04/25 05:04 POC ABG O2 Sat 98.0 % (90-95) H 03/04/25 05:04 Ric Test NA 03/04/25 05:04 VBG pH 7.25 (7.36-7.41) L 03/04/25 05:30 VBG pCO2 59 mmHg (38-50) H 03/04/25 05:30 VBG pO2 69 mmHg 03/04/25 05:30 VBG HCO3 26 mmol/L 03/04/25 05:30 VBG O2 Saturation 93.7 % 03/04/25 05:30 VBG Base Excess -2.4 mEq/L 03/04/25 05:30 O2 Delivery Device Trach Col 03/04/25 05:04 POC FiO2 40 % 03/04/25 05:04 POC Sodium 137 mmol/L (135-144) 03/04/25 05:04 Sodium 139 mmol/L (136-145) 03/04/25 03:49 POC Potassium 4.0 mmol/L (3.3-5.0) 03/04/25 05:04 Potassium 4.0 mmol/L (3.5-5.1) 03/04/25 03:49 POC Chloride 104 mmol/L (101-112) 03/04/25 03:57 Chloride 104 mmol/L (98-107) 03/04/25 03:49 Carbon Dioxide 26 mmol/L (21-32) 03/04/25 03:49 POC Total CO2 24 mmol/L (24-31) 03/04/25 03:57 Anion Gap 9 (3-11) 03/04/25 03:49 POC Anion Gap 18.0 mmol/L (16-25) 03/04/25 03:57 POC BUN 25 mg/dl (7-18) H 03/04/25 03:57 BUN 25 mg/dl (6-23) H 03/04/25 03:49 Creatinine 0.95 mg/dl (0.6-1.2) 03/04/25 03:49 POC Creatinine 1.0 mg/dl (0.6-1.3) 03/04/25 03:57 Est Cr Clr Drug Dosing 64.5 ml/min 03/04/25 03:49 eGFR 65.26 03/04/25 03:49 BUN/Creatinine Ratio 26.3 (10-20) H 03/04/25 03:49 Glucose 217 mg/dl (70-99(Fasting)) H 03/04/25 03:49 POC Glucose (other) 220 mg/dl (70-99) H 03/04/25 03:57 Lactate 1.2 mmol/L (0.4-2.0) 03/04/25 03:49 Calcium 9.3 mg/dl (8.6-10.3) 03/04/25 03:49 POC Ioniz Calcium Tony 1.21 mmol/l (1.12-1.32) 03/04/25 03:57 Magnesium 2.0 mg/dl (1.7-2.4) 03/04/25 03:49 Total Bilirubin 0.5 mg/dl (0.2-1.0) 03/04/25 03:49 Direct Bilirubin 0.2 mg/dl (0-0.2) 03/04/25 03:49 AST 37 U/L (13-39) 03/04/25 03:49 ALT 39 U/L (7-52) 03/04/25 03:49 Alkaline Phosphatase 139 U/L (34-104) H 03/04/25 03:49 Troponin I High Sens 12.4 pg/ml (0-14) 03/04/25 03:49 Total Protein 8.0 gm/dl (6.0-8.3) 03/04/25 03:49 Albumin 4.2 gm/dl (3.4-5.0) 03/04/25 03:49 Procalcitonin 0.08 ng/ml (0-0.5) 03/04/25 03:49 Adenovirus (PCR) Not Detected (NotDetected) 03/04/25 03:53 B. pertussis DNA (PCR) Not Detected (NotDetected) 03/04/25 03:53 B.parapertussis DNA PCR Not Detected (NotDetected) 03/04/25 03:53 C. pneumoniae DNA (PCR) Not Detected (NotDetected) 03/04/25 03:53 Coronavirus OC43 (PCR) Not Detected (NotDetected) 03/04/25 03:53 Coronavirus HKU1 (PCR) Not Detected (NotDetected) 03/04/25 03:53 Coronavirus 229E (PCR) Not Detected (NotDetected) 03/04/25 03:53 SARS-CoV-2 (PCR) Not Detected (NotDetected) 03/04/25 03:53 Coronavirus NL63 (PCR) Not Detected (NotDetected) 03/04/25 03:53 Human Metapneumovir PCR Not Detected (NotDetected) 03/04/25 03:53 Influenza Type A (PCR) Not Detected (NotDetected) 03/04/25 03:53 Influenza Type B (PCR) Not Detected (NotDetected) 03/04/25 03:53 M. pneumoniae (PCR) Not Detected (NotDetected) 03/04/25 03:53 Parainfluenza 1 (PCR) Not Detected (NotDetected) 03/04/25 03:53 Parainfluenza 2 (PCR) Not Detected (NotDetected) 03/04/25 03:53 Parainfluenza 3 (PCR) Not Detected (NotDetected) 03/04/25 03:53 Parainfluenza 4 (PCR) Not Detected (NotDetected) 03/04/25 03:53 RSV (PCR) Not Detected (NotDetected) 03/04/25 03:53 Entero/Rhino (PCR) DETECTED (NotDetected) A 03/04/25 03:53 Impressions Chest X-Ray 03/04/25 03:31 EXAM: XR chest 1V portable CLINICAL HISTORY: Sepsis. TECHNIQUE: An X-ray image of the chest is obtained in frontal projection. COMPARISON: 03/02/2025, CR Chest FINDINGS: Pulmonary Parenchyma: Patient is rotated Chest leads are identified No evidence of consolidation, collapse, or focal opacities. No pulmonary nodules are identified. No evidence of pleural effusion or pleural thickening. A density is seen projecting over the right hemithorax likely artifact. Heart and Mediastinum: Heart size is borderline enlarged. No mediastinal widening or masses. No hilar or mediastinal lymphadenopathy. Redemonstration of prominent aorta. Bony Thorax: Bony thorax appears intact without fractures or deformities. Soft Tissues: Soft tissues overlying the chest wall are unremarkable. IMPRESSION: 1. No evidence of consolidation/collapse. 2. No pleural effusion is identified bilaterally. 3. The previously seen opacification in left lower zone and at left costophrenic angle is not visualized on current examination. 4. Borderline cardiomegaly. 5. No other significant interval changes. Electronically signed by Mirza Dean 03-04-2025 05:07 AM ECG Additional Comments: ECG. Normal sinus rhythm at 92. Possible left atrial enlargement. T wave inversions in inferior leads. Code Status & VTE Plan VTE Prophylaxis Plan VTE Prophylaxis will be ordered: Yes
[2025-03-04] MEDS: INSULIN ASPART PER UNIT CHARGE SC SCH ×2 (08:17→17:15)
[2025-03-04] MEDS: SODIUM CHLORIDE 0.9% 1,000 ML IV SCH (08:18)
[2025-03-04] MEDS: LEVOTHYROXINE SODIUM 200 MCG TABLET PO SCH (08:19)
[2025-03-04] MEDS: EZETIMIBE 10 MG TAB PO SCH (08:19)
[2025-03-04] MEDS: LOSARTAN POTASSIUM 50 MG TAB PO SCH (08:20)
[2025-03-04] MEDS: guaiFENesin 600 MG TABCR PO SCH (08:20)
[2025-03-04] MEDS: CYANOCOBALAMIN (B-12) 500 MCG TABLET PO SCH (08:21)
[2025-03-04] MEDS: ENOXAPARIN INJ 40 MG/0.4 ML SYR SQ SCH (08:23)
--- NOTE | 2025-03-04 08:25 | Critical Care Consultation ---
Date of Consultation March 04, 2025 Assessment & Plan (1) Acute respiratory distress: (2) Mucus plugging of bronchi: (3) Shortness of breath: (4) Acute exacerbation of chronic obstructive airways disease: (5) Multiple pulmonary nodules: (6) Chronic obstructive pulmonary disease: (7) History of throat cancer: (8) History of pancreatic cancer: (9) History of thyroid cancer: Plan 69 -year-old female present to the hospital with complaints of worsening shortness of breath Past medical history: Throat cancer s/p Laryngectomy in 2006, pancreatic cancer s/p Whipple procedure, type 2 diabetes, COPD Pulmonary consulted for mucous plugging CTA chest 03/01/2025 personally reviewed: Motion degraded study Left upper lobe 7 mm pulmonary nodule another groundglass nodule 8 mm in the left upper lobe linear atelectasis of the inferior lobe of the lingula Minimal mediastinal lymphadenopathy -- Acute hypoxic respiratory failure Likely secondary to COPD exacerbation in part due to entero-/rhinovirus Procalcitonin negative Respiratory BioFire positive for entero-/rhinovirus on 03/04/2025 Continue with bronchodilators Continue with steroids --Mucous plugging Would recommend to have hypertonic saline as well as Mucomyst nebulized even at home -- COPD Plan as above --Pulmonary nodules Bilateral upper lobes Continue to monitor given the history of laryngeal CA Follows up with [facility] as an outpatient --History of laryngeal CA S/p total laryngectomy 2006 Plan: I gave the patient of conservative treatment with mucolytic's and chest vest versus bronchoscopy given the frequent mucous plugging that she is having on the very tube Patient opted for bronchoscopy Risk and benefit of the procedure explained to the patient in depth. Patient understands and wants to go ahead with the procedures Consent signed, witnessed and put in the chart Add Mucomyst to the regimen Nebulized bronchodilators while in the hospital I have personally spent 39 minutes of critical care time in the direct management of this patient. This is a life/limb threatening event. This includes time spent evaluating patient, direct bedside care, chart review, placing orders, interpretation of diagnostic studies, discussion with consultants, patient, and family members, as well as other required patient management activities. This time is exclusive of all separately billable procedures, and teaching time and separate from and in addition to any other critical care service time. Please note the above document was generated using voice recognition software. It may contain grammatical, syntax or spelling errors. History of Present Illness Attending Physician: Jose Ramires MD History of Present Illness 69 -year-old female present to the hospital with complaints of worsening shortness of breath Past medical history: Throat cancer s/p Laryngectomy in 2006, pancreatic cancer s/p Whipple procedure, type 2 diabetes, COPD Pulmonary consulted for mucous plugging Patient was initially admitted on the floor but due to frequent clearing and mucous plugging she was sent to ICU for possible bronchoscopy At the time of examination patient was resting comfortably on the bed. She was saturating 93-94% on 10 L trach collar She has been complaining of coughing and difficulty bringing up the phlegm for the last couple of days progressively getting worse When she does bring up the phlegm it is thick and sticky. Denies any hemoptysis Denies any fever or chills. No chest pain. Has been wheezing. No nausea or vomiting. Patient has internal ileostomy so she always has loose stools. They have not changed in consistency or frequency. No night sweats, no unintentional weight loss Denies any headache, no blurry vision Social history: Used to be heavy smoker, quit in 2006 Allergies Allergy/AdvReac Type Severity Reaction Status Date / Time zolpidem [From Ambien] Allergy Severe pysch Verified 07/16/24 09:24 complications, dizzy NSAIDS (Non-Steroidal Allergy Intermediate Ulcer & Verified 07/16/24 09:24 Anti-Inflamma anemia hydrochlorothiazide AdvReac Intermediate Acute Verified 07/16/24 09:24 kidney injury rosuvastatin [From Crestor] AdvReac Intermediate Elavated Verified 07/16/24 09:24 liver function test Home Medications Medication Instructions Recorded Confirmed Type albuterol sulfate 90 mcg/actuation 2 inh inhalation Q6H PRN Shortness 03/04/25 03/04/25 History aerosol inhaler Of Breath Or Wheezing amlodipine 10 mg tablet 10 mg PO DAILY 03/04/25 03/04/25 History beclomethasone dipropionate 40 1 inh inhalation DAILY 03/04/25 03/04/25 History mcg/actuation HFA breath activated aerosol (Qvar RediHaler) carvedilol 25 mg tablet 25 mg PO BID 03/04/25 03/04/25 History cyanocobalamin (vitamin B-12) 1,000 mcg PO DAILY 03/04/25 03/04/25 History 1,000 mcg tablet ezetimibe 10 mg tablet 10 mg PO DAILY 03/04/25 03/04/25 History ferrous sulfate 325 mg (65 mg 325 mg PO TID 03/04/25 03/04/25 History iron) tablet guaifenesin 600 mg tablet, 1,200 mg PO BID 03/04/25 03/04/25 History extended release 12 hr hydralazine 50 mg tablet 50 mg PO TID 03/04/25 03/04/25 History ipratropium 0.5 mg-albuterol 3 mg 3 ml inhalation Q6H PRN Shortness 03/04/25 03/04/25 History (2.5 mg base)/3 mL nebulization Of Breath Or Wheezing soln levothyroxine 200 mcg tablet 200 mcg PO DAILY 03/04/25 03/04/25 History losartan 100 mg tablet 100 mg PO DAILY 03/04/25 03/04/25 History metformin 500 mg tablet,extended 500 mg PO BID 03/04/25 03/04/25 History release 24 hr pantoprazole 40 mg tablet,delayed 40 mg PO DAILY 03/04/25 03/04/25 History release prednisone 20 mg tablet 40 mg PO DIRECTED 03/04/25 03/04/25 History repaglinide 1 mg tablet 0.5 mg PO UD 03/04/25 03/04/25 History repaglinide 2 mg tablet 2 mg PO UD 03/04/25 03/04/25 History sodium chloride 7 % for 5 ml inhalation BID PRN Shortness 03/04/25 03/04/25 History nebulization Of Breath Or Wheezing tiotropium bromide 2.5 1 inh inhalation DAILY 03/04/25 03/04/25 History mcg/actuation mist for inhalation (Spiriva Respimat) Patient History Medical History Coagulopathy Hypothyroidism associated with surgical procedure Adrenal adenoma History of colon cancer Dx'ed in 2002 (has familial adenomatous polyposis) S/p ileostomy and then J pouch procedure No chemo or XRT Tracheostomy in place No current issues DVT (deep venous thrombosis) WITH SURGERY TRACH 2004-WAS ON BLOOD THINNER FOR A PERIOD OF TIME-THEN OFF-NO ISSUES SINCE Murmur, cardiac F/U DR DEE ACEVEDO No murmur per routine 06/2021 cardio visit SOB (shortness of breath) on exertion Asthma Surgical History History of hernia repair 12/15/21 @ [facility] History of radical neck dissection WITH TRACHEOSTOMY-2004 History of bowel resection WITH J POUCH History of colonoscopy History of esophagogastroduodenoscopy (EGD) History of thyroidectomy Family History Family/Other Heart disease Lung disease Cancer Father Family hx of colon cancer Sister Family hx of colon cancer Other No family history of adverse response to anesthesia Social History Smoking Status: Former smoker Tobacco Type: Cigarettes Second Hand Exposure: No; Do You Dip or Chew Tobacco: No; Hx Alcohol Use: No Hx Substance Use: No Preferred Language: Tuvaluan Communication Ability: Effective Communication Ability Comment: Patient uses a Cervox since she has 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 Required: No Beliefs That Will Affect Care: None marital status: Current Living Situation: Alone current occupational status: disabled Other Information That Helps Us Care for You: No Feels Safe at Home: Yes Safety Concerns: Feels Safe At This Time Assistive Devices: None Review of Systems 2 Review of Systems: All systems reviewed & are unremarkable except as noted in HPI & below Physical Exam 2 Physical Exam: Constitutional: No acute distress HEENT: EOMI, PERRLA, LaryTube in place Respiratory system: Decreased air entry bilaterally, positive mild expiratory wheeze bilaterally, no rhonchi, positive crackles bilateral lower lobe CVS: S1-S2 positive, no murmurs or gallops Abdomen: Soft, nontender, nondistended, positive bowel sounds x4 Extremities: +2 pulses bilaterally radialis/ dorsalis pedis, no cyanosis, no edema Neuro: Awake alert oriented x3 Psych: Normal mood and affect G/U: No Madsen Skin: no rashes, warm and dry Lymphatic: no cervical or axillary lymphadenopathy Results & Data Results & Data Vital Signs (Past 12 Hours) Vital Signs Temp Pulse Pulse Resp BP BP Pulse Ox 03/04/25 07:00 75 18 167/102 H 97 03/04/25 06:45 79 23 113/88 93 03/04/25 06:45 90 03/04/25 06:31 91 H 22 160/80 H 93 03/04/25 06:15 79 23 116/81 90 03/04/25 06:00 88 24 150/67 H 90 03/04/25 06:00 85 23 150/67 H 95 03/04/25 05:45 86 21 119/79 99 03/04/25 05:30 86 25 H 140/74 96 03/04/25 05:24 84 23 98 03/04/25 05:15 94 H 24 142/72 H 97 03/04/25 05:10 99 03/04/25 05:00 98 H 28 H 147/87 H 97 03/04/25 04:45 94 H 27 H 181/100 H 97 03/04/25 04:05 91 H 03/04/25 03:54 91 H 26 H 99 03/04/25 03:42 36.2 C L 94 H 17 204/118 H 99 03/04/25 03:31 99 03/04/25 03:19 99 03/04/25 03:19 O2 Del Method O2 Flow Rate FiO2 03/04/25 07:00 Trach Collar 10 70 03/04/25 06:45 Trach Collar 10 70 03/04/25 06:45 Trach Collar 8 40 03/04/25 06:31 Trach Collar 10 70 03/04/25 06:15 Trach Collar 8 40 03/04/25 06:00 Trach Collar 8 40 03/04/25 06:00 Trach Collar 8 40 03/04/25 05:45 Trach Collar 8 40 03/04/25 05:30 Trach Collar 8 40 03/04/25 05:24 Trach Collar 8 40 03/04/25 05:15 Trach Collar 8 40 03/04/25 05:10 High Flow Nasal Cannula, Trach Collar 8 03/04/25 05:00 Trach Collar 8 40 03/04/25 04:45 Trach Collar 8 03/04/25 04:05 03/04/25 03:54 Trach Collar 8 03/04/25 03:42 Trach Collar 8 03/04/25 03:31 Trach Collar 8 03/04/25 03:19 Trach Collar 8 03/04/25 03:19 Trach Collar 8 Laboratory Results 03/04/25 03:49 03/04/25 03:49 Coding Level of Care Code 35009 CRITICAL CARE 1ST 30-74M Diagnoses Acute respiratory distress R06.03 Mucus plugging of bronchi T17.500A Shortness of breath R06.02 Acute exacerbation of chronic obstructive airways disease J44.1 Multiple pulmonary nodules R91.8 Chronic obstructive pulmonary disease J44.9 History of throat cancer Z85.819 History of pancreatic cancer Z85.07 History of thyroid cancer Z85.850
--- NOTE | 2025-03-04 08:40 | Pre Anesthesia Assessment ---
Date of Service March 04, 2025 Pre Sedation Assessment Vital Signs Temp Pulse Pulse Resp BP BP Pulse Ox 03/04/25 08:15 80 22 167/91 H 98 03/04/25 07:00 75 18 167/102 H 97 03/04/25 06:45 79 23 113/88 93 03/04/25 06:45 90 03/04/25 06:31 91 H 22 160/80 H 93 03/04/25 06:15 79 23 116/81 90 03/04/25 06:00 88 24 150/67 H 90 03/04/25 06:00 85 23 150/67 H 95 03/04/25 05:45 86 21 119/79 99 03/04/25 05:30 86 25 H 140/74 96 03/04/25 05:24 84 23 98 03/04/25 05:15 94 H 24 142/72 H 97 03/04/25 05:10 99 03/04/25 05:00 98 H 28 H 147/87 H 97 03/04/25 04:45 94 H 27 H 181/100 H 97 03/04/25 04:05 91 H 03/04/25 03:54 91 H 26 H 99 03/04/25 03:42 36.2 C L 94 H 17 204/118 H 99 03/04/25 03:31 99 03/04/25 03:19 99 03/04/25 03:19 O2 Del Method O2 Flow Rate FiO2 03/04/25 08:15 Trach Collar 03/04/25 07:00 Trach Collar 10 70 03/04/25 06:45 Trach Collar 10 70 03/04/25 06:45 Trach Collar 8 40 03/04/25 06:31 Trach Collar 10 70 03/04/25 06:15 Trach Collar 8 40 03/04/25 06:00 Trach Collar 8 40 03/04/25 06:00 Trach Collar 8 40 03/04/25 05:45 Trach Collar 8 40 03/04/25 05:30 Trach Collar 8 40 03/04/25 05:24 Trach Collar 8 40 03/04/25 05:15 Trach Collar 8 40 03/04/25 05:10 High Flow Nasal Cannula, Trach Collar 8 03/04/25 05:00 Trach Collar 8 40 03/04/25 04:45 Trach Collar 8 03/04/25 04:05 03/04/25 03:54 Trach Collar 8 03/04/25 03:42 Trach Collar 8 03/04/25 03:31 Trach Collar 8 03/04/25 03:19 Trach Collar 8 03/04/25 03:19 Trach Collar 8 Pre-Sedation Airway Assessment Smoking Status: Former smoker ASA: ASA3 Procedure Planning Contraindications for Sedation: none Current Medications Reviewed: Yes Notes The planned sedation has been discussed with the patient. Informed Consent was obtained. I have identified the patient, determined the appropriateness of sedation and have assessed the patient immediately prior to the procedure. All medicine(s) and interventions are by my order.
[2025-03-04] MEDS ORDERED: FERROUS SULFATE 325 MG TAB PO SCH (09:00)
[2025-03-04] MEDS ORDERED: FLUTICASONE FUROATE 200MCG 14 PUFFS/INHALER INH SCH (09:00)
[2025-03-04] MEDS: MIDAZOLAM HCL 1 MG/ML 2ML VIAL ONE (09:15)
--- NOTE | 2025-03-04 09:15 | Post Anesthesia Assessment ---
Date of Service March 04, 2025 Post Sedation Assessment Vital Signs Temp Pulse Pulse Resp BP BP Pulse Ox 03/04/25 08:15 80 22 167/91 H 98 03/04/25 07:00 75 18 167/102 H 97 03/04/25 06:45 79 23 113/88 93 03/04/25 06:45 90 03/04/25 06:31 91 H 22 160/80 H 93 03/04/25 06:15 79 23 116/81 90 03/04/25 06:00 88 24 150/67 H 90 03/04/25 06:00 85 23 150/67 H 95 03/04/25 05:45 86 21 119/79 99 03/04/25 05:30 86 25 H 140/74 96 03/04/25 05:24 84 23 98 03/04/25 05:15 94 H 24 142/72 H 97 03/04/25 05:10 99 03/04/25 05:00 98 H 28 H 147/87 H 97 03/04/25 04:45 94 H 27 H 181/100 H 97 03/04/25 04:05 91 H 03/04/25 03:54 91 H 26 H 99 03/04/25 03:42 36.2 C L 94 H 17 204/118 H 99 03/04/25 03:31 99 03/04/25 03:19 99 03/04/25 03:19 O2 Del Method O2 Flow Rate FiO2 03/04/25 08:15 Trach Collar 03/04/25 07:00 Trach Collar 10 70 03/04/25 06:45 Trach Collar 10 70 03/04/25 06:45 Trach Collar 8 40 03/04/25 06:31 Trach Collar 10 70 03/04/25 06:15 Trach Collar 8 40 03/04/25 06:00 Trach Collar 8 40 03/04/25 06:00 Trach Collar 8 40 03/04/25 05:45 Trach Collar 8 40 03/04/25 05:30 Trach Collar 8 40 03/04/25 05:24 Trach Collar 8 40 03/04/25 05:15 Trach Collar 8 40 03/04/25 05:10 High Flow Nasal Cannula, Trach Collar 8 03/04/25 05:00 Trach Collar 8 40 03/04/25 04:45 Trach Collar 8 03/04/25 04:05 03/04/25 03:54 Trach Collar 8 03/04/25 03:42 Trach Collar 8 03/04/25 03:31 Trach Collar 8 03/04/25 03:19 Trach Collar 8 03/04/25 03:19 Trach Collar 8 Discharge Sedation Level of Care: Fast Track Phase II Post Sedation Plan On clinical assessment, the patient appears to have tolerated the sedation without complications. Patient is recovering as anticipated. Patient will continue to be monitored by nursing and may be discharged when sedation discharge criteria are met per below protocol. Upon Completions of procedure up to 15 minutes continue every 5 minute vital signs and the P.A.R. score; then discharge to a Phase I or Fast Track to Phase II per the following guidelines: * Discharge Patient to appropriate Phase II area if PAR is 8 or greater or r eturn to pre- procedure baseline. The post - procedure orders will be as directed. * If PAR score is less than 8 or not return to pre-procedure baseline then patient will follow Phase I monitoring till PAR is reached for Phase II. The Phase I may be done in procedure room or may call to secure a Phase I area. * If naloxone or flumazenil are used for reversal, hold in Phase I for continued monitoring from when last reversal dose was given for a minimum of 60 minutes or longer pending the nurse and/or physician discretion of patient condition before discharge to Phase II. Please call the Sedation Physician to re-evaluate and complete post-note for discharge to Phase II area. Do NOT discharge from procedure sedation or Phase 1 until post- sedation evaluation note is complete by procedure /sedation MD Sedation Discharge Instructions to be given to the patient at discharge to home.
[2025-03-04] MEDS: PIPERACILLIN/TAZOBACTAM 4.5 GM/100 ML BAG IV SCH (09:17)
--- NOTE | 2025-03-04 09:25 | Procedure Note ---
Procedure Note: Bronchoscopy Procedure PREOPERATIVE DIAGNOSIS: Mucous plugging POSTOPERATIVE DIAGNOSIS: Mucous plugging PROCEDURE PERFORMED: Flexible fiberoptic bronchoscopy with bronchial wash and therapeutic clearance of mucous plugging's. COMPLICATIONS: None. INDICATION: Clearing of mucous plugging PROCEDURE: After obtaining an informed consent, the patient was brought to the ICU. The patient had appropriate oxygen, blood pressure, heart rate, and respiratory rate monitoring applied and monitored continuously throughout the procedure. Supplemental oxygen via nasal cannula as per nursing records was applied to the nasopharynx with adequate saturations achieved. Topical anesthesia with nebulized 1% lidocaine was achieved. Subsequent to this, the patient was premedicated with 4 mg of midazolam and 125 mcg of fentanyl. Sedation start: 8:57 AM Sedation end: 9:11 AM Patient has a LaryTube, bronchoscope was advanced through the LaryTube Lidocaine was instilled at the checo. As soon as I went through the LaryTube I saw greenish-yellow phlegm in the trachea, mostly coming from the left main and left lower lobe. N-acetylcysteine 20% 20 mL was instilled into the left lower lobe Overall there was white coating of the mucosa appreciated in all 5 lobes anteriorly and posteriorly. The mucosa was also very friable The bronchoscope was then advanced through the checo, which was sharp. The scope was then advanced into the right main stem and each segment, subsegement in the right upper lobe, right middle lobe and right lower lobe were visualized. There was minimal amount of clear white secretions on the right side which were suctioned out.. There were no other findings including evidence of mass, anatomic distortions, or hemorrhage. The bronchoscope was subsequently withdrawn and advanced into the left mainstem. Again, each segment and subsegment was well visualized. No specific masses or other lesions were identified throughout the tracheobronchial tree on the left. There was moderate amount of yellowish-green secretions and mucous pl ugging starting from the left main going into the left lower lobe which was therapeutically suctioned out till the airways were clear. The bronchoscope was then wedged in the left main and into the left lower lobe. 60 ml of saline was instilled and 30 ml of fluid was aspirated back.The bronchoscope was withdrawn and the area was suctioned clear. The bronchoscope was then withdrawn to the mainstem. The area was suctioned clear. The bronchoscope was then withdrawn. The patient tolerated the procedure well without evidence of desaturation or complications. Bronchoalveolar lavage samples were sent for cell count, Gram stain and bacterial culture, AFB culture and smear, fungal culture and smear, Coccidioides, histoplasma, PJP, Aspergillus and cytology. Estimated blood loss: None Recommendations: Follow-up micro, cytology and pathology Follow-up chest x-ray I sent for CMV as well as HSV PCR. The mucosal white coating could be candidal colonization. Will wait for the culture Please note the above document was generated using voice recognition software. It may contain grammatical, syntax or spelling errors.Any formal questions or concerns about the content, text or information contained within the body of this dictation should be directly addressed to the provider for clarification. [facility] [place] Codes (Charges) Pulmonary/Thoracic Procedure 1: Pulmonary and Thoracic: 26546 Bronchoscopy, clear airways Procedure 2: Pulmonary and Thoracic: 02513 Dx bronchoscopy/wash Sedation/Anesthesia Procedure 1: Sedation/Anesthesia: 71738 Mod Sedation by the same physician;Init15 Min Child Age 5 & Up
--- NOTE | 2025-03-04 09:49 | XRay Report ---
EXAM: AP portable chest EXAM REASON: Post bronchoscopy COMPARISON: 03/02/2025 TECHNIQUE: A single AP view of the chest was obtained FINDINGS: The lungs are well-expanded. No focal areas of consolidation are identified. The cardiac and mediastinal silhouettes are within normal limits. Lines and tubes are unchanged from the previous exam. There is no pneumothorax and no acute bony abnormalities are seen IMPRESSION: No acute cardiopulmonary abnormalities. Electronically signed by Zhen Isaac 03-04-2025 09:49 AM
--- NOTE | 2025-03-04 09:51 | Pharmacy Report ---
Pharmacy PK ABX Note - Date of Service March 04, 2025 - Assessment and Plan Assessment 69 year old F receiving vancomycin and zosyn for empiric coverage in setting of acute hypoxic respiratory failure. Blood, sputum and bronch wash cultures pending. MRSA nasal (-) on 02/28. Renal function stable. Day #1 of antimicrobial therapy. Plan Vancomycin * Loading dose: 2000 mg IV x 1 * Maintenance dose: 1500 mg IV every 24 hours * Regimen is predicted to achieve target AUC/JAYDON of 400-600 mg/L.hr * Will obtain a level if therapy continued beyond 48h, or sooner if clinically indicated Pharmacy will continue to follow and will adjust dose/frequency as necessary. Thank you. Pharmacy has transitioned to AUC monitoring for vancomycin. AUC/JAYDON is the preferred PK/PD target and is associated with decreased risk of nephrotoxicity compared to traditional trough targets.
[2025-03-04] MEDS: UMECLIDINIUM BROMIDE 62.5MCG/BLISTER 7 PUFFS/INHALER INH SCH (09:56)
[2025-03-04 11:24] LABS: Fluid Mono/Macrophage 1 %; Lymphocyte Body Fluid Man 1 %; Neutrophil Body Fluid Man 98 %
[2025-03-04] MEDS: ACETYLCYSTEINE 20% INHAL SOLN 4ML ***DISPENSED BY RESP. INH SCH (11:24)
[2025-03-04] MEDS: FORMOTEROL 20 MCG/2 ML VIAL NEB SCH (11:24)
[2025-03-04] MEDS: SODIUM CHLOR 7% 4 ML NEB NEB SCH (11:24)
[2025-03-04] MEDS: ALBUT/IPRATROP 3MG/0.5MG NEB 3 ML VIAL NEB SCH (11:24)
[2025-03-04] MEDS: BUDESONIDE 0.5 MG/2 ML VIAL (PULMICORT) NEB SCH (11:24)
--- NOTE | 2025-03-04 12:04 | Electrocardiogram Report ---
Test Reason : Blood Pressure : */* mmHG Vent. Rate : 92 BPM Atrial Rate : 92 BPM P-R Int : 140 ms QRS Dur : 82 ms QT Int : 368 ms P-R-T Axes : 0 -11 -19 degrees QTcB Int : 455 ms Normal sinus rhythm Possible Left atrial enlargement possible Inferior infarct , age undetermined Abnormal ECG When compared with ECG of 01-Mar-2025 07:30, ST no longer elevated in Anterior leads T wave inversion now evident in Inferior leads T wave inversion no longer evident in Anterior leads Confirmed by Satnam Dooley ([id number]) on 03/04/2025 12:03:50 PM Referred By: REFERRED SELF Confirmed By: Satnam Dooley
[2025-03-04] MEDS ORDERED: Nursing to Pharmacy Communication SCH (12:30)
--- NOTE | 2025-03-04 12:43 | Communication Note ---
Patient seen and examined at bedside this morning. Patient doing better in ED after suctioning. Substantial amount of mucus plugging noted. SOB at home is what brought her to hospital. On exam, wheezing in bilateral lower lobes, RRR. Chest xray improved from prior. Patient came back to hospital for worsening SOB at home, now with severe mucous plugging and wheezing on exam. Likely rhinovirus infection causing worsening COPD exacerbation with possible development of CAP despite relatively normal imaging findings. Transferred to ICU for bedside bronchoscopy for mucous clearance and further evaluation. Continue broad spectrum abx and steroids given unclear etiology of acute worsening of respiratory status at home. Date of Service: March 04, 2025
[2025-03-04 13:13] LABS: Appearance Urine Clear (Clear); Bacteria Urine Automated None Seen (None Seen); Epithelial Cell Urine Auto 0-2 /hpf (0-2); Glucose Urine UA 1+ (Negative); RBC Urine Automated 0-2 /hpf (0-2); WBC Urine Automated 0-5 /hpf (0-5)
[2025-03-04] MEDS: INSULIN ASPART PER UNIT CHARGE ONE (14:13)
[2025-03-04] MEDS: MIDAZOLAM HCL 5 MG/ML 2ML VIAL IV STA (15:00)
[2025-03-04] MEDS: VANCOMYCIN HCL 1,500 MG in SODIUM CHLORIDE 0.9% 500 ML IV SCH (20:22)
[2025-03-04 21:02] LABS: A calco-baum cmplx NotReported Not Detected (NotDetected); Bact fragilis Not Reported Not Detected (NotDetected); Blood Culture Id Panel See PCR Comment (NotDetected); C auris Not Reported Not Detected (NotDetected); Calbicans Not Reported Not Detected (NotDetected); Candida glabrata Not Reported Not Detected (NotDetected); Candida krusei Not Reported Not Detected (NotDetected); Cneoformans/gatti Not Reported Not Detected (NotDetected); Cparapsilosis Not Reported Not Detected (NotDetected); Ctropicalis Not Reported Not Detected (NotDetected); E cloacae compx Not Reported Not Detected (NotDetected); Efaecalis Not Reported Not Detected (NotDetected); Efaecium Not Reported Not Detected (NotDetected); Enterobacterales Not Reported Not Detected (NotDetected); Escherichia coli Not Reported Not Detected (NotDetected); H influenzae Not Reported Not Detected (NotDetected); K aerogenes Not Reported Not Detected (NotDetected); Koxytoca Not Reported Not Detected (NotDetected); Kpneumoniae grp Not Reported Not Detected (NotDetected); Lmonocyt Not Reported Not Detected (NotDetected); N meningitidis Not Reported Not Detected (NotDetected); P aeruginosa Not Reported Not Detected (NotDetected); Proteus spp Not Reported Not Detected (NotDetected); Salmonella spp Not Reported Not Detected (NotDetected); Staph lugdunensis Not Reported Not Detected (NotDetected); Staph spp. Not Reported DETECTED (NotDetected); Staphaureus Not Reported DETECTED (NotDetected); Staphepi Not Reported Not Detected (NotDetected); Staphylococcus spp. DETECTED (NotDetected); Stenmaltophilia Not Reported Not Detected (NotDetected); Strep agal(GrpB) Not Reported Not Detected (NotDetected); Strep pneum Not Reported Not Detected (NotDetected); Strep pyog (GrpA) Not Reported Not Detected (NotDetected); Strep spp Not Reported Not Detected (NotDetected); mecAC+MREJ Resistant Gene MRSA Not Detected (NotDetected)
[2025-03-04] MEDS: CYCLOBENZAPRINE HCL 10 MG TAB PO PRN (21:13)
[2025-03-05 05:18] LABS: Hematocrit (blood only) 37.2 % (37.0-47.0); Hemoglobin 12.5 g/dl (12.0-16.0); Mean Corpuscular Hemoglobin 27.8 pg (25.0-34.0); Mean Corpuscular Volume 82.9 fL (80.0-100.0); Platelet Count 260 K/uL (130-400); RDW Standard Deviation 45.0 fL (36.4-46.3); Red Blood Count 4.49 M/uL (4.20-5.40); White Blood Count 15.75 K/ul (4.8-10.8)
[2025-03-05 05:35] LABS: Anion Gap 6.0 (3-11); Blood Urea Nitrogen 16.0 mg/dl (6-23); Calcium 8.1 mg/dl (8.6-10.3); Carbon Dioxide 25.0 mmol/L (21-32); Chloride 106.0 mmol/L (98-107); Creatinine Clr Calc Pharmacy 57.2 ml/min; Glucose 208.0 mg/dl (70-99(Fasting)); Magnesium 2.0 mg/dl (1.7-2.4); Potassium 4.0 mmol/L (3.5-5.1); Sodium 137.0 mmol/L (136-145)
[2025-03-05 05:36] LABS: Immature Granulocytes # (auto) 0.11 K/uL (0.01-0.20); Immature Granulocytes % (auto) 0.7 %
[2025-03-05 07:36] LABS: Hemoglobin A1C 8.1 % (4.5-5.6)
--- NOTE | 2025-03-05 08:24 | Pulmonology Progress Note ---
Date of Service March 05, 2025 Assessment & Plan (1) Mucus plugging of bronchi: (2) Rhinovirus infection: (3) Acute respiratory failure with hypoxia: Plan Impression: 69-year-old female status post laryngectomy with tracheostomy admitted with rhinovirus infection status post bronchoscopy 03/04 for mucoid impaction. She is improved this morning. Recommendations: 1. History of tracheostomy: Continue supportive care. Site clean dry and intact. Patient is functioning well. 2. Acute/subacute enterovirus infection. Supportive care recommended. Currently receiving budesonide and Perforomist. Do not see significant emphysema on CT scan. Outpatient PFTs not reliable given her tracheostomy state. She is not bronchospastic today and will discontinue systemic steroids 3. Mucous plugging: Continue pulmonary toilet. Continue bronchodilators and hypertonic saline. Given her tracheostomy status, flutter valve and incentive spirometry are unlikely to be beneficial. Continue Mucinex. Cultures of show no growth to date. The patient is currently receiving Rocephin, Zosyn and vancomycin. Gram stain shows moderate gram-positive cocci. She has grown Staph aureus which is methicillin sensitive previously from her trach cultures. Seems reasonable to continue Rocephin but Zosyn can be discontinued. Will defer to hospitalist the positive blood culture 4. Hypoxemic respiratory failure: Significantly improved today. Continue to wean to defend oxygen saturations above 90%. Will continue to follow with you. Feel free to contact us with questions or concerns Admission and Anticipated Discharge Date Admission Date: March 04, 2025 Subjective Patient seen and examined. EMR reviewed. Discussed with outgoing drupal developer and bedside critical care nurse. The patient reports that she is feeling somewhat better. She continues to have thick secretions which she is able to clear them by coughing. She denies any significant shortness of breath. Her oxygen requirement significantly improved. She is not experiencing any chest pain or palpitations. She is tolerating a diet. Review of Systems 2 Review of Systems: All systems reviewed & are unremarkable except as noted in Subjective Physical Exam 2 Constitutional: WD/WN, vitals as above Neck: Ostomy clean dry and intact. Minimal erythema Respiratory: normal respiratory effort, lungs clear to auscultation Cardiovascular: RRR, no murmur, no edema Gastrointestinal (Abdomen): normal bowel sounds, soft, nontender, no hepatosplenomegaly Musculoskeletal: Extremities: extremities normal to inspection Skin: no rashes, warm and dry Neurologic: Nonfocal exam Lymphatic: no cervical lymphadenopathy Results & Data Results & Data Vital Signs (Past 12 Hours) Vital Signs Temp Pulse Pulse Resp BP BP Pulse Ox 03/05/25 07:25 03/05/25 07:10 70 17 97 03/05/25 07:00 37.1 C 69 22 174/85 H 97 03/05/25 04:53 168/78 H 03/05/25 03:44 37.2 C 61 24 205/103 H 202/96 H 97 03/05/25 00:51 37.6 C H 65 25 H 173/83 H 96 03/05/25 00:37 66 Pulse Ox O2 Del Method O2 Del Method O2 Flow Rate O2 Flow Rate FiO2 03/05/25 07:25 97 Trach Collar 10 03/05/25 07:10 Trach Collar 8 70 03/05/25 07:00 Trach Collar 10 03/05/25 04:53 03/05/25 03:44 Trach Collar 10 100 03/05/25 00:51 Trach Collar 8 50 03/05/25 00:37 Laboratory Results 03/05/25 04:58 03/05/25 04:58 Microbiology 03/04/25 04:14 Blood Aerobic Blood Culture - Preliminary No growth in Aerobic bottle after 24 hours. 03/04/25 03:49 Blood Aerobic Blood Culture - Preliminary No growth in Aerobic bottle after 24 hours. 03/04/25 03:49 Blood Anaerobic Blood Culture - Preliminary Gram positive cocci clusters 03/04/25 09:15 Bronch Wash, Left Main Stem Fungal Smear - Final 03/04/25 09:15 Bronch Wash, Left Main Stem Gram Stain - Final 03/04/25 05:08 Sputum,Trach Gram Stain - Final Diagnostic Findings No new imaging PG Care Time/CCT Total # of Minutes Spent Total Time Spent with Patient: Total time spent is greater than 50% in coordination of care (as documented) at patient's floor/unit and/or counseling patient: Coding Level of Care Code 15641 SUB INP/OBS CARE 2/35MIN Diagnoses Mucus plugging of bronchi T17.500A Rhinovirus infection B34.8 Acute respiratory failure with hypoxia J96.01
[2025-03-05] MEDS: cefTRIAXone SODIUM 2,000 MG/50 ML BAG IV SCH (08:29)
[2025-03-05] MEDS ORDERED: VANCOMYCIN CONSULT ACTIVE PRN (16:42)
--- NOTE | 2025-03-05 16:44 | Hospitalist Progress Note ---
Date of Service March 05, 2025 Assessment & Plan (1) Mucus plugging of bronchi: (2) Rhinovirus infection: (3) Acute respiratory distress: (4) CAP (community acquired pneumonia): (5) Tracheobronchitis, acute or subacute, with bronchospasm or obstruction: Plan Staph auereus CAP Acute hypoxemic respiratory failure secondary to COPD exacerbation Rhinovirus infection Tracheobronchitis -returned to hospital due to difficulty breathing at home -high risk for decompensation given trach -now on room air however -CAP in setting of trach, growing Staph aureus in blood culture and respiratory culture Plan: -decrease methylprednisolone to 40 daily, bronchopulmonary hygiene -goal sat>88% -monitor overnight, f/u respiratory cultures -stop zosyn, continue vancomcyin, start ceftriaxone for now, will narrow based off of culture results -check culture results #Hypertension -monitor #HLD -does not tolerate statins #DM Type 2 -SSI #Primary Aldosteronism #Adrenal Nodules -needs outpatient endocrinology f/u #Hx of Thyroid Cancer #S/p Laryngectomy s/p Stomaplasty #Hx of Pancreatic Cancer s/p Whipple Procedure #Hx of Colon Cancer s/p resection #Hx of Gross Syndrome I spent a total of 50 minutes in direct patient care, including [id number] time with the patient and/or family, reviewing medical records, ordering and reviewing diagnostic tests, and coordinating care with other healthcare providers. This time includes: history taking, physical examination, medical decision making, counseling, ECG interpretation, imaging interpretation, lab interpretation, orders, and education, excluding time spent in the performance of separately billed services. Admission and Anticipated Discharge Date Admission Date: March 04, 2025 Subjective Patient seen and examined at bedside. Patient doing much better today. States that she feels much better than yesterday. Review of Systems Review of Systems: CONSTITUTIONAL: Patient denies fevers, chills, sweats and weight changes. EYES: Patient denies any visual symptoms. EARS, NOSE, AND THROAT: No difficulties with hearing. No symptoms of rhinitis or sore throat. CARDIOVASCULAR: Patient denies chest pains, palpitations, orthopnea and paroxysmal nocturnal dyspnea. RESPIRATORY: No dyspnea on exertion, no wheezing or cough. GI: No nausea, vomiting, diarrhea, constipation, abdominal pain, hematochezia or melena. : No urinary hesitancy or dribbling. No nocturia or urinary frequency. No abnormal urethral discharge. MUSCULOSKELETAL: No myalgias or arthralgias. NEUROLOGIC: No chronic headaches, no seizures. Patient denies numbness, tingling or weakness. PSYCHIATRIC: Patient denies problems with mood disturbance. No problems with anxiety. ENDOCRINE: No excessive urination or excessive thirst. DERMATOLOGIC: Patient denies any rashes or skin changes. Physical Exam Physical Exam: Gen: A&O 3 NAD HEENT: NCAT, EOMI, not icteric. External ears normal. No rhinorrhea. Moist mucous membranes. Neck: Supple, full range of motion, no observable masses, No meningeal sign. Lungs: mild wheezing in bilateral lower lobes, improved from yesterday CV: RRR, no edema. Abdomen: Soft, nondistended, No rebound tenderness. MSK: No joint swelling, no redness. Skin: No rashes, petechiae, lesions. Normal color per patient. Neuro: Normal Gait, Grossly intact. Psych: Appropriate for situation. Results & Data Results & Data Vital Signs (Past 12 Hours) Vital Signs Temp Pulse Resp BP BP Pulse Ox Pulse Ox 03/05/25 16:12 37.3 C 67 20 167/83 H 95 03/05/25 15:38 37.0 C 66 18 159/89 H 93 03/05/25 14:09 73 18 94 03/05/25 12:30 97 03/05/25 11:06 37.4 C 59 L 22 166/84 H 98 03/05/25 10:02 97 03/05/25 08:03 97 03/05/25 08:00 03/05/25 07:30 97 03/05/25 07:25 97 03/05/25 07:10 70 17 97 03/05/25 07:00 37.1 C 69 22 174/85 H 97 03/05/25 04:53 168/78 H O2 Del Method O2 Del Method O2 Flow Rate O2 Flow Rate FiO2 03/05/25 16:12 Room Air 03/05/25 15:38 Room Air 03/05/25 14:09 Room Air 03/05/25 12:30 Trach Collar 2 03/05/25 11:06 Trach Collar 2 03/05/25 10:02 Trach Collar 6 03/05/25 08:03 Trach Collar 8 03/05/25 08:00 Trach Collar 03/05/25 07:30 Trach Collar 10 03/05/25 07:25 Trach Collar 10 03/05/25 07:10 Trach Collar 8 70 03/05/25 07:00 Trach Collar 10 03/05/25 04:53 Laboratory Results -personally reviewed, WBC downtrending, calcium 8.1 replenished Medications Administered Albuterol (Albut/Ipratrop 3mg/0.5mg Neb 3 Ml Vial) 3 ml NEB QIDR [facility]URA; Protocol Stop: 04/03/25 06:59 Last Admin: 03/05/25 14:09 Dose: 3 ml Documented By: Admin: 03/05/25 14:08 Dose: 3 ml Documented By: Admin: 03/05/25 07:08 Dose: 3 ml Documented By: Admin: 03/04/25 19:22 Dose: Not Given Documented By: Admin: 03/04/25 14:57 Dose: 3 ml Documented By: Admin: 03/04/25 11:37 Dose: 3 ml Documented By: Admin: 03/04/25 11:24 Dose: 3 ml Documented By: VERONICA Amlodipine Besylate (Amlodipine Besylate 5 Mg Tab) 10 mg PO DAILY [facility] Stop: 04/03/25 08:59 Last Admin: 03/05/25 09:04 Dose: 10 mg Documented By: Admin: 03/04/25 08:21 Dose: 10 mg Documented By: ANDER Budesonide (Budesonide 0.5 Mg/2 Ml Vial (Pulmicort)) 0.5 mg NEB BIDR [facility] Stop: 04/03/25 06:59 Last Admin: 03/05/25 07:08 Dose: 0.5 mg Documented By: Admin: 03/04/25 19:22 Dose: 0.5 mg Documented By: Admin: 03/04/25 11:24 Dose: 0.5 mg Documented By: VERONICA Carvedilol (Carvedilol 25 Mg Tab) 25 mg PO BID [facility] Stop: 04/03/25 08:59 Last Admin: 03/05/25 07:55 Dose: 25 mg Documented By: Admin: 03/04/25 20:22 Dose: 25 mg Documented By: Admin: 03/04/25 08:21 Dose: 25 mg Documented By: ANDER Cyanocobalamin (Cyanocobalamin (B-12) 500 Mcg Tablet) 1,000 mcg PO DAILY [facility] Stop: 04/03/25 08:59 Last Admin: 03/05/25 07:56 Dose: 1,000 mcg Documented By: Admin: 03/04/25 08:21 Dose: 1,000 mcg Documented By: ANDER Cyclobenzaprine HCl (Cyclobenzaprine Hcl 10 Mg Tab) 10 mg PO HS PRN PRN Reason: muscle spasm Stop: 04/03/25 20:59 Last Admin: 03/04/25 21:13 Dose: 10 mg Documented By: DONI Ezetimibe (Ezetimibe 10 Mg Tab) 10 mg PO DAILY [facility] Stop: 04/03/25 08:59 Last Admin: 03/05/25 07:56 Dose: 10 mg Documented By: Admin: 03/04/25 08:19 Dose: 10 mg Documented By: ANDER Enoxaparin Sodium (Enoxaparin Inj 40 Mg/0.4 Ml Syr) 40 mg SQ Q24H [facility] Stop: 04/03/25 08:59 Last Admin: 03/05/25 07:54 Dose: 40 mg Documented By: Admin: 03/04/25 08:23 Dose: 40 mg Documented By: ANDER Formoterol Fumarate (Formoterol 20 Mcg/2 Ml Vial) 20 mcg NEB BIDR [facility] Stop: 04/03/25 06:59 Last Admin: 03/05/25 07:08 Dose: 20 mcg Documented By: Admin: 03/04/25 19:22 Dose: 20 mcg Documented By: Admin: 03/04/25 11:24 Dose: 20 mcg Documented By: VERONICA Guaifenesin (Guaifenesin 600 Mg Tabcr) 1,200 mg PO BID [facility] Stop: 04/03/25 08:59 Last Admin: 03/05/25 07:56 Dose: 1,200 mg Documented By: Admin: 03/04/25 20:22 Dose: 1,200 mg Documented By: Admin: 03/04/25 08:20 Dose: 1,200 mg Documented By: ANDER Hydralazine HCl (Hydralazine Tab 50 Mg Tab) 50 mg PO TID [facility] Stop: 04/03/25 08:59 Last Admin: 03/05/25 13:55 Dose: 50 mg Documented By: Admin: 03/05/25 07:55 Dose: 50 mg Documented By: Admin: 03/04/25 20:22 Dose: 50 mg Documented By: Admin: 03/04/25 14:14 Dose: 50 mg Documented By: Admin: 03/04/25 08:20 Dose: 50 mg Documented By: ANDER Sodium Chloride (Nss) 1,000 mls @ 80 mls/hr IV .[id number] [facility] Stop: 03/07/25 07:44 Last Admin: 03/05/25 07:54 Dose: 80 mls/hr Documented By: Infusion: 03/05/25 07:54 Dose: Infused Documented By: Admin: 03/04/25 21:54 Dose: 80 mls/hr Documented By: Infusion: 03/04/25 20:48 Dose: Infused Documented By: Admin: 03/04/25 08:18 Dose: 80 mls/hr Documented By: ANDER Ceftriaxone Sodium (Rocephin) 2,000 mg in 50 mls @ 100 mls/hr IV Q24H [facility] Stop: 03/10/25 07:59 Last Infusion: 03/05/25 09:04 Dose: Infused Documented By: Admin: 03/05/25 08:29 Dose: 100 mls/hr Documented By: SABINE Insulin Aspart (Insulin Aspart Per Unit Charge) 0 units SC ACHS [facility] Stop: 04/03/25 16:29 Last Admin: 03/05/25 11:46 Dose: 7 units Documented By: SABINE Co-signed By: MARCIA Admin: 03/05/25 07:53 Dose: 6 units Documented By: SABINE Co-signed By: MARCIA Admin: 03/04/25 20:25 Dose: 2 units Documented By: DONI Co-signed By: PADMA Admin: 03/04/25 17:15 Dose: 8 units Documented By: LISSETT Co-signed By: MARCIA Levothyroxine Sodium (Levothyroxine Sodium 200 Mcg Tablet) 200 mcg PO DAILYBB [facility] Stop: 04/03/25 08:59 Last Admin: 03/05/25 06:07 Dose: 200 mcg Documented By: Admin: 03/04/25 08:19 Dose: 200 mcg Documented By: ANDER Losartan Potassium (Losartan Potassium 50 Mg Tab) 100 mg PO DAILY [facility] Stop: 04/03/25 08:59 Last Admin: 03/05/25 07:56 Dose: 100 mg Documented By: Admin: 03/04/25 08:20 Dose: 100 mg Documented By: ANDER Pantoprazole Sodium (Pantoprazole 40 Mg Tab) 40 mg PO DAILY [facility] Stop: 04/03/25 08:59 Last Admin: 03/05/25 07:57 Dose: 40 mg Documented By: Admin: 03/04/25 08:21 Dose: 40 mg Documented By: ANDER Sodium Chloride (Sodium Chlor 7% 4 Ml Neb) 4 ml NEB BIDR [facility] Stop: 04/03/25 07:24 Last Admin: 03/05/25 07:09 Dose: 4 ml Documented By: Admin: 03/04/25 19:22 Dose: 4 ml Documented By: Admin: 03/04/25 11:24 Dose: 4 ml Documented By: VERONICA
[2025-03-05] MEDS: CALCIUM GLUCONATE 1,000 MG/60 ML BAG IV STA (17:05)
[2025-03-05] MEDS: VANCOMYCIN HCL 1,500 MG in SODIUM CHLORIDE 0.9% 500 ML IV SCH (20:26)
[2025-03-06 03:40] LABS: Hematocrit (blood only) 36.9 % (37.0-47.0); Hemoglobin 12.2 g/dl (12.0-16.0); Mean Corpuscular Hemoglobin 27.4 pg (25.0-34.0); Mean Corpuscular Volume 82.7 fL (80.0-100.0); Platelet Count 260 K/uL (130-400); RDW Standard Deviation 45.0 fL (36.4-46.3); Red Blood Count 4.46 M/uL (4.20-5.40); White Blood Count 13.60 K/ul (4.8-10.8)
[2025-03-06 05:19] LABS: Anion Gap 7.0 (3-11); Calcium 7.7 mg/dl (8.6-10.3); Carbon Dioxide 24.0 mmol/L (21-32); Chloride 108.0 mmol/L (98-107); Potassium 3.6 mmol/L (3.5-5.1); Sodium 139.0 mmol/L (136-145)
[2025-03-06 05:25] LABS: Blood Urea Nitrogen 18.0 mg/dl (6-23); Creatinine Clr Calc Pharmacy 65.6 ml/min; Glucose 124.0 mg/dl (70-99(Fasting))
[2025-03-06] MEDS: CALCIUM GLUCONATE 1,000 MG/60 ML BAG IV STA (08:27)
[2025-03-06] MEDS: ACETAMINOPHEN 325 MG TAB PO PRN (08:28)
--- NOTE | 2025-03-06 09:11 | Pulmonology Progress Note ---
Date of Service March 06, 2025 Assessment & Plan (1) Mucus plugging of bronchi: (2) Rhinovirus infection: (3) Acute respiratory failure with hypoxia: Plan Impression: 69-year-old female status post laryngectomy with tracheostomy admitted with rhinovirus infection status post bronchoscopy 03/04 for mucoid impaction. Cultures growing methicillin sensitive Staph aureus the bronc wash as well as with normal blood culture Recommendations: 1. History of tracheostomy: Continue supportive care. Site clean dry and intact. Patient is functioning well. 2. Acute/subacute enterovirus infection. Supportive care recommended. Currently receiving budesonide and Perforomist. She is more wheezy today so we will restart prednisone. 3. Mucous plugging: Continue pulmonary toilet. Continue bronchodilators and hypertonic saline. Given her tracheostomy status, flutter valve and incentive spirometry are unlikely to be beneficial. Continue Mucinex. 4. Hypoxemic respiratory failure: Significantly improved today. Continue to wean to defend oxygen saturations above 90%. 5. MSSA tracheobronchitis. In the setting of positive blood cultures. Antibiotics adjusted by ID to cefazolin. Defer additional antibiotics to ID. Will continue to follow with you. Feel free to contact us with questions or concerns Admission and Anticipated Discharge Date Admission Date: March 04, 2025 Subjective Patient seen and examined. EMR reviewed. She continues to show slow and steady improvement. She is experiencing continued wheezing and some chest congestion but is able to clear secretions. Tolerating a diet. No new respiratory concerns Review of Systems 2 Review of Systems: All systems reviewed & are unremarkable except as noted in Subjective Physical Exam 2 Constitutional: WD/WN, vitals as above Neck: Trach site clean dry and intact Respiratory: normal respiratory effort, lungs clear to auscultation Cardiovascular: RRR, no murmur, no edema Gastrointestinal (Abdomen): normal bowel sounds, soft, nontender, no hepatosplenomegaly Musculoskeletal: Extremities: extremities normal to inspection Skin: no rashes, warm and dry Lymphatic: no cervical lymphadenopathy Results & Data Results & Data Vital Signs (Past 12 Hours) Vital Signs Temp Pulse Pulse Pulse Resp BP BP 03/06/25 08:13 35.5 C L 79 23 153/44 H 03/06/25 07:51 67 03/06/25 07:28 79 03/06/25 03:54 37.1 C 84 21 124/91 03/05/25 23:20 37.2 C 70 19 161/75 H Pulse Ox O2 Del Method 03/06/25 08:13 91 Room Air 03/06/25 07:51 03/06/25 07:28 97 Room Air 03/06/25 03:54 91 Room Air 03/05/25 23:20 90 Room Air Laboratory Results 03/06/25 03:21 03/06/25 03:21 [facility] wash growing methicillin sensitive Staph aureus Diagnostic Findings No new imaging PG Care Time/CCT Total # of Minutes Spent Total Time Spent with Patient: Total time spent is greater than 50% in coordination of care (as documented) at patient's floor/unit and/or counseling patient: Coding Level of Care Code 48612 SUB INP/OBS CARE 2/35MIN Diagnoses Mucus plugging of bronchi T17.500A Rhinovirus infection B34.8 Acute respiratory failure with hypoxia J96.01
[2025-03-06] MEDS: predniSONE 20 MG TAB PO SCH (10:57)
--- NOTE | 2025-03-06 15:45 | Hospitalist Progress Note ---
Date of Service March 06, 2025 Assessment & Plan (1) Mucus plugging of bronchi: (2) Rhinovirus infection: (3) Acute respiratory distress: (4) CAP (community acquired pneumonia): (5) Tracheobronchitis, acute or subacute, with bronchospasm or obstruction: Plan Staph auereus CAP Acute hypoxemic respiratory failure secondary to COPD exacerbation Rhinovirus infection Tracheobronchitis -returned to hospital due to difficulty breathing at home -high risk for decompensation given trach -now on room air however -CAP in setting of trach, growing Staph aureus in blood culture and respiratory culture (has some resistance but MSSA) Plan: -switch to prednisone 20 mg PO daily per pulmonary, bronchopulmonary hygiene -goal sat>88% -monitor overnight, f/u respiratory cultures -switch to cefazolin per discussion with pharmacy, ID consulted, appreciate recs -f/u repeat cultures and echo #Hypertension -monitor #HLD -does not tolerate statins #DM Type 2 -SSI #Primary Aldosteronism #Adrenal Nodules -needs outpatient endocrinology f/u #Hx of Thyroid Cancer #S/p Laryngectomy s/p Stomaplasty #Hx of Pancreatic Cancer s/p Whipple Procedure #Hx of Colon Cancer s/p resection #Hx of Gross Syndrome I spent a total of 45 minutes in direct patient care, including [id number] time with the patient and/or family, reviewing medical records, ordering and reviewing diagnostic tests, and coordinating care with other healthcare providers. This time includes: history taking, physical examination, medical decision making, counseling, ECG interpretation, imaging interpretation, lab interpretation, orders, and education, excluding time spent in the performance of separately billed services. Admission and Anticipated Discharge Date Admission Date: March 04, 2025 Subjective Patient seen and examined. Patient doing well today, feels much better than prior. No concerns at this time. Review of Systems Review of Systems: CONSTITUTIONAL: Patient denies fevers, chills, sweats and weight changes. EYES: Patient denies any visual symptoms. EARS, NOSE, AND THROAT: No difficulties with hearing. No symptoms of rhinitis or sore throat. CARDIOVASCULAR: Patient denies chest pains, palpitations, orthopnea and paroxysmal nocturnal dyspnea. RESPIRATORY: No dyspnea on exertion, no wheezing or cough. GI: No nausea, vomiting, diarrhea, constipation, abdominal pain, hematochezia or melena. : No urinary hesitancy or dribbling. No nocturia or urinary frequency. No abnormal urethral discharge. MUSCULOSKELETAL: No myalgias or arthralgias. NEUROLOGIC: No chronic headaches, no seizures. Patient denies numbness, tingling or weakness. PSYCHIATRIC: Patient denies problems with mood disturbance. No problems with anxiety. ENDOCRINE: No excessive urination or excessive thirst. DERMATOLOGIC: Patient denies any rashes or skin changes. Physical Exam Physical Exam: Gen: A&O 3 NAD HEENT: NCAT, EOMI, not icteric. External ears normal. No rhinorrhea. Moist mucous membranes. Neck: Supple, full range of motion, no observable masses, No meningeal sign. Lungs: mild wheezing in bilateral lower lobes, continues to improve CV: RRR, no edema. Abdomen: Soft, nondistended, No rebound tenderness. MSK: No joint swelling, no redness. Skin: No rashes, petechiae, lesions. Normal color per patient. Neuro: Normal Gait, Grossly intact. Psych: Appropriate for situation. Results & Data Results & Data Vital Signs (Past 12 Hours) Vital Signs Temp Pulse Pulse Pulse Resp BP BP 03/06/25 15:35 75 22 03/06/25 14:26 72 03/06/25 11:35 37.2 C 70 22 163/74 H 03/06/25 11:16 72 24 03/06/25 10:17 03/06/25 08:13 35.5 C L 79 23 153/44 H 03/06/25 07:51 67 03/06/25 07:28 79 03/06/25 03:54 37.1 C 84 21 124/91 Pulse Ox O2 Del Method O2 Flow Rate FiO2 03/06/25 15:35 94 Room Air, Trach Collar 9 21 03/06/25 14:26 03/06/25 11:35 91 Room Air 03/06/25 11:16 92 Room Air, Trach Collar 8 03/06/25 10:17 Trach Collar 03/06/25 08:13 91 Room Air 03/06/25 07:51 03/06/25 07:28 97 Room Air 03/06/25 03:54 91 Room Air Laboratory Results -personally reviewed, WBC downtrending, calcium 7.7 and replenished Medications Administered Albuterol (Albut/Ipratrop 3mg/0.5mg Neb 3 Ml Vial) 3 ml NEB QIDR [facility]; Protocol Stop: 04/03/25 06:59 Last Admin: 03/06/25 15:33 Dose: 3 ml Documented By: [id number] Admin: 03/06/25 11:15 Dose: 3 ml Documented By: [id number] Admin: 03/06/25 07:18 Dose: 3 ml Documented By: [id number] Admin: 03/05/25 19:16 Dose: Not Given Documented By: Admin: 03/05/25 14:09 Dose: 3 ml Documented By: Admin: 03/05/25 14:08 Dose: 3 ml Documented By: Admin: 03/05/25 07:08 Dose: 3 ml Documented By: Admin: 03/04/25 19:22 Dose: Not Given Documented By: Admin: 03/04/25 14:57 Dose: 3 ml Documented By: Admin: 03/04/25 11:37 Dose: 3 ml Documented By: Admin: 03/04/25 11:24 Dose: 3 ml Documented By: VERONICA Amlodipine Besylate (Amlodipine Besylate 5 Mg Tab) 10 mg PO DAILY [facility] Stop: 04/03/25 08:59 Last Admin: 03/06/25 08:28 Dose: 10 mg Documented By: Admin: 03/05/25 09:04 Dose: 10 mg Documented By: Admin: 03/04/25 08:21 Dose: 10 mg Documented By: ANDER Budesonide (Budesonide 0.5 Mg/2 Ml Vial (Pulmicort)) 0.5 mg NEB BIDR [facility] Stop: 04/03/25 06:59 Last Admin: 03/06/25 07:18 Dose: 0.5 mg Documented By: [id number] Admin: 03/05/25 19:16 Dose: 0.5 mg Documented By: Admin: 03/05/25 07:08 Dose: 0.5 mg Documented By: Admin: 03/04/25 19:22 Dose: 0.5 mg Documented By: Admin: 03/04/25 11:24 Dose: 0.5 mg Documented By: VERONICA Carvedilol (Carvedilol 25 Mg Tab) 25 mg PO BID [facility] Stop: 04/03/25 08:59 Last Admin: 03/06/25 08:27 Dose: 25 mg Documented By: Admin: 03/05/25 20:32 Dose: 25 mg Documented By: Admin: 03/05/25 07:55 Dose: 25 mg Documented By: Admin: 03/04/25 20:22 Dose: 25 mg Documented By: Admin: 03/04/25 08:21 Dose: 25 mg Documented By: ANDER Cyanocobalamin (Cyanocobalamin (B-12) 500 Mcg Tablet) 1,000 mcg PO DAILY [facility] Stop: 04/03/25 08:59 Last Admin: 03/06/25 08:27 Dose: 1,000 mcg Documented By: Admin: 03/05/25 07:56 Dose: 1,000 mcg Documented By: Admin: 03/04/25 08:21 Dose: 1,000 mcg Documented By: ANDER Cyclobenzaprine HCl (Cyclobenzaprine Hcl 10 Mg Tab) 10 mg PO HS PRN PRN Reason: muscle spasm Stop: 04/03/25 20:59 Last Admin: 03/06/25 08:28 Dose: 10 mg Documented By: Admin: 03/05/25 20:31 Dose: 10 mg Documented By: Admin: 03/04/25 21:13 Dose: 10 mg Documented By: DONI Ezetimibe (Ezetimibe 10 Mg Tab) 10 mg PO DAILY [facility] Stop: 04/03/25 08:59 Last Admin: 03/06/25 08:27 Dose: 10 mg Documented By: Admin: 03/05/25 07:56 Dose: 10 mg Documented By: Admin: 03/04/25 08:19 Dose: 10 mg Documented By: ANDER Enoxaparin Sodium (Enoxaparin Inj 40 Mg/0.4 Ml Syr) 40 mg SQ Q24H [facility] Stop: 04/03/25 08:59 Last Admin: 03/06/25 08:27 Dose: 40 mg Documented By: Admin: 03/05/25 07:54 Dose: 40 mg Documented By: Admin: 03/04/25 08:23 Dose: 40 mg Documented By: ANDER Formoterol Fumarate (Formoterol 20 Mcg/2 Ml Vial) 20 mcg NEB BIDR [facility] Stop: 04/03/25 06:59 Last Admin: 03/06/25 07:18 Dose: 20 mcg Documented By: [id number] Admin: 03/05/25 19:16 Dose: 20 mcg Documented By: Admin: 03/05/25 07:08 Dose: 20 mcg Documented By: Admin: 03/04/25 19:22 Dose: 20 mcg Documented By: Admin: 03/04/25 11:24 Dose: 20 mcg Documented By: VERONICA Guaifenesin (Guaifenesin 600 Mg Tabcr) 1,200 mg PO BID [facility] Stop: 04/03/25 08:59 Last Admin: 03/06/25 08:27 Dose: 1,200 mg Documented By: Admin: 03/05/25 20:31 Dose: 1,200 mg Documented By: Admin: 03/05/25 07:56 Dose: 1,200 mg Documented By: Admin: 03/04/25 20:22 Dose: 1,200 mg Documented By: Admin: 03/04/25 08:20 Dose: 1,200 mg Documented By: ANDER Hydralazine HCl (Hydralazine Tab 50 Mg Tab) 50 mg PO TID [facility] Stop: 04/03/25 08:59 Last Admin: 03/06/25 14:59 Dose: 50 mg Documented By: Admin: 03/06/25 08:28 Dose: 50 mg Documented By: Admin: 03/05/25 20:31 Dose: 50 mg Documented By: Admin: 03/05/25 13:55 Dose: 50 mg Documented By: Admin: 03/05/25 07:55 Dose: 50 mg Documented By: Admin: 03/04/25 20:22 Dose: 50 mg Documented By: Admin: 03/04/25 14:14 Dose: 50 mg Documented By: Admin: 03/04/25 08:20 Dose: 50 mg Documented By: ANDER Sodium Chloride (Nss) 1,000 mls @ 80 mls/hr IV .[id number] [facility] Stop: 03/07/25 07:44 Last Admin: 03/06/25 08:48 Dose: 80 mls/hr Documented By: Infusion: 03/06/25 08:48 Dose: Infused Documented By: Admin: 03/05/25 21:15 Dose: 80 mls/hr Documented By: Infusion: 03/05/25 20:46 Dose: Infused Documented By: Admin: 03/05/25 07:54 Dose: 80 mls/hr Documented By: Infusion: 03/05/25 07:54 Dose: Infused Documented By: [email or web address] Admin: 03/04/25 21:54 Dose: 80 mls/hr Documented By: Infusion: 03/04/25 20:48 Dose: Infused Documented By: Admin: 03/04/25 08:18 Dose: 80 mls/hr Documented By: ANDER Cefazolin Sodium (Ancef 2000mg) 2,000 mg in 15 mls @ 3.75 mls/min IV Q8H [facility] Stop: 03/20/25 08:29 Last Admin: 03/06/25 08:48 Dose: 3.75 mls/min Documented By: JUSTINE Insulin Aspart (Insulin Aspart Per Unit Charge) 0 units SC ACHS [facility] Stop: 04/03/25 16:29 Last Admin: 03/06/25 11:53 Dose: 7 units Documented By: JUSTINE Co-signed By: DAMON Admin: 03/06/25 08:29 Dose: 6 units Documented By: JUSTINE Co-signed By: DAMON Admin: 03/05/25 20:33 Dose: Not Given Documented By: Admin: 03/05/25 16:52 Dose: 4 units Documented By: VALORIE Co-signed By: DAMON Admin: 03/05/25 11:46 Dose: 7 units Documented By: SABINE Co-signed By: MARCIA Admin: 03/05/25 07:53 Dose: 6 units Documented By: SABINE Co-signed By: MARCIA Admin: 03/04/25 20:25 Dose: 2 units Documented By: DONI Co-signed By: PADMA Admin: 03/04/25 17:15 Dose: 8 units Documented By: LISSETT Co-signed By: MARCIA Levothyroxine Sodium (Levothyroxine Sodium 200 Mcg Tablet) 200 mcg PO DAILYBB [facility] Stop: 04/03/25 08:59 Last Admin: 03/06/25 05:38 Dose: 200 mcg Documented By: Admin: 03/05/25 06:07 Dose: 200 mcg Documented By: Admin: 03/04/25 08:19 Dose: 200 mcg Documented By: ANDER Losartan Potassium (Losartan Potassium 50 Mg Tab) 100 mg PO DAILY [facility] Stop: 04/03/25 08:59 Last Admin: 03/06/25 08:28 Dose: 100 mg Documented By: Admin: 03/05/25 07:56 Dose: 100 mg Documented By: Admin: 03/04/25 08:20 Dose: 100 mg Documented By: ANDER Oxycodone HCl (Oxycodone Hcl Ir 5 Mg Tab (Immediate Release)) 5 mg PO Q6H PRN PRN Reason: Mod-Sev Pain (Scale 4-10) Stop: 03/19/25 20:41 Last Admin: 03/05/25 20:46 Dose: 5 mg Documented By: LIANA Pantoprazole Sodium (Pantoprazole 40 Mg Tab) 40 mg PO DAILY [facility] Stop: 04/03/25 08:59 Last Admin: 03/06/25 08:28 Dose: 40 mg Documented By: Admin: 03/05/25 07:57 Dose: 40 mg Documented By: Admin: 03/04/25 08:21 Dose: 40 mg Documented By: ANDER Prednisone (Prednisone 20 Mg Tab) 20 mg PO DAILY [facility] Stop: 04/05/25 09:14 Last Admin: 03/06/25 10:57 Dose: 20 mg Documented By: JUSTINE Sodium Chloride (Sodium Chlor 7% 4 Ml Neb) 4 ml NEB BIDR [facility] Stop: 04/03/25 07:24 Last Admin: 03/06/25 07:18 Dose: 4 ml Documented By: [id number] Admin: 03/05/25 19:16 Dose: 4 ml Documented By: Admin: 03/05/25 07:09 Dose: 4 ml Documented By: Admin: 03/04/25 19:22 Dose: 4 ml Documented By: Admin: 03/04/25 11:24 Dose: 4 ml Documented By: VERONICA
--- NOTE | 2025-03-06 17:42 | Infectious Disease Consult ---
Date of Service March 06, 2025 Telehealth Information I performed this visit using a real-time telehealth connection between my location and the patients location ([facility]). After connecting through interactive tele-video, patient was identified by name and date of and/or wristband check.Patient (or authorized healthcare commissary representative) was informed that this was a telemedicine visit and it was being conducted confidentially over secure lines. My office door was closed and no one else was present in the room with me.Patient (or authorized healthcare commissary representative) provided consent to proceed with the visit, expressed an understanding of privacy and security of the telemedicine visit, and gave permission to have a hospital commissary representative in the room in order to assist with the visit and to conduct portions of the visit, as needed. I informed the patient (or authorized healthcare commissary representative) that I reviewed their record and presented the opportunity for them to ask any questions regarding the visit today. The patient agreed to participate. Assessment & Plan (1) Tracheobronchitis: (2) MSSA bacteremia: (3) Acute hypoxemic respiratory failure: (4) Acute hypercapnic respiratory failure: Plan I agree with IV cefazolin for now. If the culture sent on 03/05 remains negative by tomorrow morning, consider stepping down IV cefazolin to oral linezolid 600 mg twice daily to complete a course of 14 days with anticipated end date of March 19, 2025. If there is any contraindication for linezolid, she will likely need to continue on IV cefazolin to complete the course of treatment. History of Present Illness History of Present Illness Ms. 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 She was discharged from the hospital yesterday after a 3 day hospital course where she was treated for COPD exacerbation likely secondary to rhinovirus infection. She comes back again the next day with worsening shortness of breath and decrease in her oxygen saturation. On presentation, she was afebrile, hypertensive at 204/118 and requiring 8 L of oxygen via trach collar. Initial workup showed leukocytosis of 17 (ANC 13.4), ABGs showing respiratory acidosis, RVP panel positive for rhinovirus again and shortly after admission blood culture comes back positive for MSSA identified via PCR. Chest x-ray was not impressive and showed no acute cardiopulmonary abnormalities. Bedside bronchoscopy with BAL was performed which showed moderate amount of yellowish greenish secretions and mucus plugging in the left main down to the left lower lobe. BAL culture also came back positive for MSSA. ID team was consulted for further recommendations and to help guide antibiotic treatment Allergies Allergy/AdvReac Type Severity Reaction Status Date / Time zolpidem [From Ambien] Allergy Severe pysch Verified 07/16/24 09:24 complications, dizzy NSAIDS (Non-Steroidal Allergy Intermediate Ulcer & Verified 07/16/24 09:24 Anti-Inflamma anemia hydrochlorothiazide AdvReac Intermediate Acute Verified 07/16/24 09:24 kidney injury rosuvastatin [From Crestor] AdvReac Intermediate Elavated Verified 07/16/24 09:24 liver function test Home Medications Medication Instructions Recorded Confirmed Type albuterol sulfate 90 mcg/actuation 2 inh inhalation Q6H PRN Shortness 03/04/25 03/04/25 History aerosol inhaler Of Breath Or Wheezing amlodipine 10 mg tablet 10 mg PO DAILY 03/04/25 03/04/25 History beclomethasone dipropionate 40 1 inh inhalation DAILY 03/04/25 03/04/25 History mcg/actuation HFA breath activated aerosol (Qvar RediHaler) carvedilol 25 mg tablet 25 mg PO BID 03/04/25 03/04/25 History cyanocobalamin (vitamin B-12) 1,000 mcg PO DAILY 03/04/25 03/04/25 History 1,000 mcg tablet ezetimibe 10 mg tablet 10 mg PO DAILY 03/04/25 03/04/25 History ferrous sulfate 325 mg (65 mg 325 mg PO TID 03/04/25 03/04/25 History iron) tablet guaifenesin 600 mg tablet, 1,200 mg PO BID 03/04/25 03/04/25 History extended release 12 hr hydralazine 50 mg tablet 50 mg PO TID 03/04/25 03/04/25 History ipratropium 0.5 mg-albuterol 3 mg 3 ml inhalation Q6H PRN Shortness 03/04/25 03/04/25 History (2.5 mg base)/3 mL nebulization Of Breath Or Wheezing soln levothyroxine 200 mcg tablet 200 mcg PO DAILY 03/04/25 03/04/25 History losartan 100 mg tablet 100 mg PO DAILY 03/04/25 03/04/25 History metformin 500 mg tablet,extended 500 mg PO BID 03/04/25 03/04/25 History release 24 hr pantoprazole 40 mg tablet,delayed 40 mg PO DAILY 03/04/25 03/04/25 History release prednisone 20 mg tablet 40 mg PO DIRECTED 03/04/25 03/04/25 History repaglinide 1 mg tablet 0.5 mg PO UD 03/04/25 03/04/25 History repaglinide 2 mg tablet 2 mg PO UD 03/04/25 03/04/25 History sodium chloride 7 % for 5 ml inhalation BID PRN Shortness 03/04/25 03/04/25 History nebulization Of Breath Or Wheezing tiotropium bromide 2.5 1 inh inhalation DAILY 03/04/25 03/04/25 History mcg/actuation mist for inhalation (Spiriva Respimat) Patient History Medical History Coagulopathy Hypothyroidism associated with surgical procedure Adrenal adenoma History of colon cancer Dx'ed in 2002 (has familial adenomatous polyposis) S/p ileostomy and then J pouch procedure No chemo or XRT Tracheostomy in place No current issues DVT (deep venous thrombosis) WITH SURGERY TRACH 2004-WAS ON BLOOD THINNER FOR A PERIOD OF TIME-THEN OFF-NO ISSUES SINCE Murmur, cardiac F/U DR DEE ACEVEDO No murmur per routine 06/2021 cardio visit SOB (shortness of breath) on exertion Asthma Surgical History History of hernia repair 12/15/[address] [facility] History of radical neck dissection WITH TRACHEOSTOMY-2004 History of bowel resection WITH J POUCH History of colonoscopy History of esophagogastroduodenoscopy (EGD) History of thyroidectomy Family History Family/Other Heart disease Lung disease Cancer Father Family hx of colon cancer Sister Family hx of colon cancer Other No family history of adverse response to anesthesia Social History Smoking Status: Former smoker Tobacco Type: Cigarettes Second Hand Exposure: No; Do You Dip or Chew Tobacco: No; Hx Alcohol Use: No Hx Substance Use: No Preferred Language: Slovak Communication Ability: Effective Communication Ability Comment: Patient uses a Cervox since she has 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 Letter Of Credit Document Examiner Required: No Beliefs That Will Affect Care: None marital status: Current Living Situation: Alone current occupational status: disabled Feels Safe at Home: Yes Assistive Devices: None Review of Systems Negative except for what was mentioned in the H&P Physical Exam Could not be performed as the visit was conducted via TeleMed Results & Data Vital Signs (Past 12 Hours) Vital Signs Temp Pulse Pulse Resp BP BP Pulse Ox 03/06/25 15:57 37.2 C 78 18 145/71 H 91 03/06/25 15:35 75 22 94 03/06/25 14:26 72 03/06/25 11:35 37.2 C 70 22 163/74 H 91 03/06/25 11:16 72 24 92 03/06/25 10:17 03/06/25 08:13 35.5 C L 79 23 153/44 H 91 03/06/25 07:51 67 03/06/25 07:28 79 97 O2 Del Method O2 Flow Rate FiO2 03/06/25 15:57 Room Air 03/06/25 15:35 Room Air, Trach Collar 9 21 03/06/25 14:26 03/06/25 11:35 Room Air 03/06/25 11:16 Room Air, Trach Collar 8 03/06/25 10:17 Trach Collar 03/06/25 08:13 Room Air 03/06/25 07:51 03/06/25 07:28 Room Air Laboratory Results Microbiology: 03/04: 1 of 4 bottles of blood culture positive for MSSA 03/04: Deep tracheal aspirate culture positive for MSSA 03/04: BAL culture left mainstem positive for MSSA 03/05: 2 sets of blood culture pending Diagnostic Findings Chest x-ray performed on 03/04: No acute cardiopulmonary pathologies Transthoracic echo on 03/06: Left ventricular ejection fraction 65-70%, mild concentric left ventricular hypertrophy, grade 1 diastolic dysfunction, no evidence of endocarditis
[2025-03-07 06:04] LABS: Hematocrit (blood only) 36.3 % (37.0-47.0); Hemoglobin 12.3 g/dl (12.0-16.0); Mean Corpuscular Hemoglobin 28.1 pg (25.0-34.0); Mean Corpuscular Volume 82.9 fL (80.0-100.0); Platelet Count 236 K/uL (130-400); RDW Standard Deviation 44.2 fL (36.4-46.3); Red Blood Count 4.38 M/uL (4.20-5.40); White Blood Count 9.43 K/ul (4.8-10.8)
[2025-03-07 06:18] LABS: Anion Gap 5.0 (3-11); Blood Urea Nitrogen 13.0 mg/dl (6-23); Calcium 7.6 mg/dl (8.6-10.3); Carbon Dioxide 27.0 mmol/L (21-32); Chloride 105.0 mmol/L (98-107); Creatinine Clr Calc Pharmacy 69.7 ml/min; Glucose 184.0 mg/dl (70-99(Fasting)); Potassium 3.2 mmol/L (3.5-5.1); Sodium 137.0 mmol/L (136-145)
[2025-03-07] MEDS: POTASSIUM CHLORIDE 10 MEQ TABCR PO ONE (09:33)
--- NOTE | 2025-03-07 10:50 | Pulmonology Progress Note ---
Date of Service March 07, 2025 Assessment & Plan (1) Mucus plugging of bronchi: (2) Rhinovirus infection: (3) Acute respiratory failure with hypoxia: Plan Impression: 69-year-old female status post laryngectomy with tracheostomy admitted with rhinovirus infection status post bronchoscopy 03/04 for mucoid impaction. Cultures growing methicillin sensitive Staph aureus the bronc wash as well as with normal blood culture. Antibiotics per ID Recommendations: 1. History of tracheostomy: Continue supportive care. Site clean dry and intact. Trach is functioning well. 2. Acute/subacute enterovirus infection. Supportive care recommended. Currently receiving budesonide and Perforomist. Would complete a 5-day burst of oral prednisone 3. Mucous plugging: Continue pulmonary toilet. Continue bronchodilators and hypertonic saline. Given her tracheostomy status, flutter valve and incentive spirometry are unlikely to be beneficial. Continue Mucinex. 4. Hypoxemic respiratory failure: Significantly improved today. Continue to wean to defend oxygen saturations above 90%. 5. MSSA tracheobronchitis. Antibiotics per ID Patient appears to be approaching her pulmonary baseline. Would be happy to see her back in clinic if needed. Feel free to contact us with questions or concerns Admission and Anticipated Discharge Date Admission Date: March 04, 2025 Subjective Patient seen and examined. EMR reviewed. The patient reports that she is feeling better today. She is less wheezy. She is able to cough and expectorate phlegm. She is not describing any chest pain or palpitations. She is ambulating. She overall feels improved Review of Systems 2 Review of Systems: All systems reviewed & are unremarkable except as noted in Subjective Physical Exam 2 Constitutional: WD/WN, vitals as above Respiratory: normal respiratory effort, lungs clear to auscultation Cardiovascular: RRR, no murmur, no edema Gastrointestinal (Abdomen): normal bowel sounds, soft, nontender, no hepatosplenomegaly Musculoskeletal: Extremities: extremities normal to inspection Skin: no rashes, warm and dry Lymphatic: no cervical lymphadenopathy Results & Data Results & Data Vital Signs (Past 12 Hours) Vital Signs Temp Pulse Resp BP Pulse Ox Pulse Ox O2 Del Method 03/07/25 09:20 Trach Collar 03/07/25 07:44 36.7 C 64 19 174/80 H 90 Nasal Cannula 03/07/25 07:23 61 17 92 Trach Collar 03/07/25 07:00 95 03/07/25 02:55 36.7 C 66 20 180/97 H 95 Trach Collar O2 Del Method O2 Flow Rate O2 Flow Rate FiO2 03/07/25 09:20 8 03/07/25 07:44 9 03/07/25 07:23 8 35 03/07/25 07:00 Trach Collar 8 03/07/25 02:55 9 Laboratory Results 03/07/25 05:35 03/07/25 05:35 Cytology from bronchoscopy currently pending Diagnostic Findings No new imaging PG Care Time/CCT Total # of Minutes Spent Total Time Spent with Patient: Total time spent is greater than 50% in coordination of care (as documented) at patient's floor/unit and/or counseling patient: Coding Level of Care Code 71009 SUB INP/OBS CARE 2/35MIN Diagnoses Mucus plugging of bronchi T17.500A Rhinovirus infection B34.8 Acute respiratory failure with hypoxia J96.01
--- NOTE | 2025-03-07 15:33 | Hospitalist Progress Note ---
Date of Service March 07, 2025 Assessment & Plan (1) Mucus plugging of bronchi: (2) Rhinovirus infection: (3) Acute respiratory distress: (4) CAP (community acquired pneumonia): (5) Tracheobronchitis, acute or subacute, with bronchospasm or obstruction: Plan Acute hypoxemic respiratory failure secondary to COPD exacerbation Rhinovirus infection MSSA tracheobronchitis Mucous plugging Staph auereus CAP --CXR: No evidence of consolidation/collapse. No pleural effusion is identified bilaterally. The previously seen opacification in left lower zone and at left costophrenic angle is not visualized on current examination. Borderline cardiomegaly. No other significant interval changes. -- BioFire positive for rhinovirus --Serology for adenovirus, Coccidioides, histoplasmosis, influenza, RSV, Legionella, pneumocystis, Aspergillus pending Continue nebs, Pulmicort, Perforomist Continue flutter, hypertonic saline nebs Appreciate pulmonology input Continue prednisone to complete 5-day course Continue antibiotics as below Will benefit from following with pulmonology upon discharge MSSA bacteremia--POA -- Blood culture 07/08: Staph aureus -- Repeat blood culture: negative to date --ECHO: Left ventricular systolic function normal. EF 65 to 70%. Mild concentric LVH. Grade 1 diastolic dysfunction. No evidence of endocarditis within the limitations of the imaging modality. Continue IV cefazolin while hospitalized Appreciate infectious disease input Plan to discharge on Zyvox to complete 2-week course Hypertension Continue amlodipine, carvedilol, Hydralazine, Losartan Monitor and adjust medications HLD History of statin intolerance Continue Zetia DM Type 2 -SSI Monitor blood glucose levels Primary Aldosteronism Adrenal Nodules -Needs outpatient endocrinology f/u Other chronic conditions: #Hx of Thyroid Cancer #S/p Laryngectomy s/p Stomaplasty #Hx of Pancreatic Cancer s/p Whipple Procedure #Hx of Colon Cancer s/p resection #Hx of Gross Syndrome DVT Px: Lovenox SQ CODE STATUS Full code Admission and Anticipated Discharge Date Admission Date: March 04, 2025 Subjective Patient is seen and examined at bedside States feeling a lot better today Denies any chest pain, dizziness Still has some cough with expectoration No other complaints today Review of Systems Review of Systems: All systems reviewed & are unremarkable except as noted in Subjective Physical Exam Physical Exam: Physical Exam: Vitals signs as noted above General Appearance:Overweight, no apparent distress Head: normocephalic, Atraumatic Eyes: normal inspection, EOMI Neck: supple, Trachea midline, +Trach Respiratory/Chest: Normal breath sounds, scattered rhonchi/wheeze , No accessory muscle use Cardiovascular: S1, S2, No murmur Abdomen/GI:Soft, Non tender, Bowel sounds present Extremities/Musculoskeletal:normal inspection, no edema Neurologic/Psych:AAOX3, grossly no focal neurological deficits Skin: normal color, warm Results & Data Results & Data Vital Signs (Past 12 Hours) Vital Signs Temp Pulse Pulse Resp BP Pulse Ox Pulse Ox 03/07/25 14:56 70 16 96 03/07/25 11:39 75 17 98 03/07/25 11:26 36.8 C 61 18 150/81 H 98 03/07/25 11:16 61 03/07/25 09:20 03/07/25 07:44 36.7 C 64 19 174/80 H 90 03/07/25 07:23 61 17 92 03/07/25 07:00 95 O2 Del Method O2 Del Method O2 Flow Rate O2 Flow Rate FiO2 03/07/25 14:56 Trach Collar 28 03/07/25 11:39 Trach Collar 8 28 03/07/25 11:26 Nasal Cannula 9 03/07/25 11:16 03/07/25 09:20 Trach Collar 8 03/07/25 07:44 Nasal Cannula 9 03/07/25 07:23 Trach Collar 8 35 03/07/25 07:00 Trach Collar 8 Laboratory Results Short CBC 03/07/25 Range/Units 05:35 WBC 9.43 (4.8-10.8) K/ul Hgb 12.3 (12.0-16.0) g/dl Hct 36.3 L (37.0-47.0) % Plt Count 236 (130-400) K/uL BMP 03/07/25 05:35 Sodium 137 Potassium 3.2 L Chloride 105 Carbon Dioxide 27 BUN 13 Creatinine 0.83 Glucose 184 H Calcium 7.6 L
[2025-03-08 06:37] LABS: Hematocrit (blood only) 37.5 % (37.0-47.0); Hemoglobin 12.4 g/dl (12.0-16.0); Mean Corpuscular Hemoglobin 27.4 pg (25.0-34.0); Mean Corpuscular Volume 83.0 fL (80.0-100.0); Platelet Count 236 K/uL (130-400); RDW Standard Deviation 43.8 fL (36.4-46.3); Red Blood Count 4.52 M/uL (4.20-5.40); White Blood Count 8.63 K/ul (4.8-10.8)
[2025-03-08 07:00] LABS: Anion Gap 8.0 (3-11); Blood Urea Nitrogen 11.0 mg/dl (6-23); Calcium 8.0 mg/dl (8.6-10.3); Carbon Dioxide 28.0 mmol/L (21-32); Chloride 103.0 mmol/L (98-107); Creatinine Clr Calc Pharmacy 73.2 ml/min; Glucose 166.0 mg/dl (70-99(Fasting)); Magnesium 2.0 mg/dl (1.7-2.4); Potassium 3.2 mmol/L (3.5-5.1); Sodium 139.0 mmol/L (136-145)
[2025-03-08 12:02] VITALS: BP 150/82; PULSE 64; RESP 20; TEMP 98.4; O2SAT 94
[2025-03-08] MEDS: POTASSIUM CHLORIDE 10 MEQ TABCR PO ONE (12:35)
--- NOTE | 2025-03-08 13:21 | Hospitalist Progress Note ---
Date of Service March 08, 2025 Assessment & Plan (1) Mucus plugging of bronchi: (2) Rhinovirus infection: (3) Acute respiratory distress: (4) CAP (community acquired pneumonia): (5) Tracheobronchitis, acute or subacute, with bronchospasm or obstruction: Plan Acute hypoxemic respiratory failure secondary to COPD exacerbation Rhinovirus infection MSSA tracheobronchitis Mucous plugging Staph aureus CAP --CXR: No evidence of consolidation/collapse. No pleural effusion is identified bilaterally. The previously seen opacification in left lower zone and at left costophrenic angle is not visualized on current examination. Borderline cardiomegaly. No other significant interval changes. -- BioFire positive for rhinovirus --Serology for adenovirus, Coccidioides, histoplasmosis, influenza, RSV, Legionella, pneumocystis, Aspergillus pending Continue nebs, Pulmicort, Perforomist while hospitalized Continue flutter, hypertonic saline nebs Appreciate pulmonology input Continue prednisone to complete 5-day course Continue antibiotics as below Advised to follow-up with pulmonology on discharge Plan to be discharged home today MSSA bacteremia--POA -- Blood culture 07/08: Staph aureus -- Repeat blood culture: negative to date --ECHO: Left ventricular systolic function normal. EF 65 to 70%. Mild concentric LVH. Grade 1 diastolic dysfunction. No evidence of endocarditis within the limitations of the imaging modality. Continue IV cefazolin while hospitalized Appreciate infectious disease input Plan to discharge on Zyvox to complete 2-week course Hypertension Continue amlodipine, carvedilol, Hydralazine, Losartan Monitor and adjust medications Blood pressure stable today HLD History of statin intolerance Continue Zetia DM Type 2 -SSI Monitor blood glucose levels Primary Aldosteronism Adrenal Nodules -Needs outpatient endocrinology f/u Other chronic conditions: #Hx of Thyroid Cancer #S/p Laryngectomy s/p Stomatoplasty #Hx of Pancreatic Cancer s/p Whipple Procedure #Hx of Colon Cancer s/p resection #Hx of Gross Syndrome DVT Px: Lovenox SQ CODE STATUS Full code Disposition Home Admission and Anticipated Discharge Date Admission Date: March 04, 2025 Subjective Patient is seen and examined at bedside No new complaints Denies any chest pain, dyspnea, nausea, vomiting, abdominal pain Saturating well on room air Cough much improved Plan to be discharged home today Review of Systems Review of Systems: All systems reviewed & are unremarkable except as noted in Subjective Physical Exam Physical Exam: Physical Exam: Vitals signs as noted above General Appearance:Overweight, no apparent distress Head: normocephalic, Atraumatic Eyes: normal inspection, EOMI Neck: supple, Trachea midline, +Trach Respiratory/Chest: Normal breath sounds, minimal rhonchi/wheeze , No accessory muscle use Cardiovascular: S1, S2, No murmur Abdomen/GI:Soft, Non tender, Bowel sounds present Extremities/Musculoskeletal:normal inspection, no edema Neurologic/Psych:AAOX3, grossly no focal neurological deficits Skin: normal color, warm Results & Data Results & Data Vital Signs (Past 12 Hours) Vital Signs Temp Pulse Resp BP Pulse Ox O2 Del Method O2 Flow Rate 03/08/25 12:00 36.9 C 64 20 150/82 H 94 Room Air 03/08/25 10:37 Trach Collar 8 03/08/25 10:21 66 18 98 Trach Collar 8 03/08/25 07:44 36.6 C 59 L 20 170/85 H 100 Room Air 03/08/25 07:16 59 L 18 100 Trach Collar 8 03/08/25 03:10 36.9 C 57 L 20 149/82 H 95 Trach Collar 9 FiO2 03/08/25 12:00 03/08/25 10:37 03/08/25 10:21 28 03/08/25 07:44 03/08/25 07:16 28 03/08/25 03:10 Laboratory Results Short CBC 03/08/25 Range/Units 05:47 WBC 8.63 (4.8-10.8) K/ul Hgb 12.4 (12.0-16.0) g/dl Hct 37.5 (37.0-47.0) % Plt Count 236 (130-400) K/uL BMP 03/08/25 05:47 Sodium 139 Potassium 3.2 L Chloride 103 Carbon Dioxide 28 BUN 11 Creatinine 0.79 Glucose 166 H Calcium 8.0 L
--- NOTE | 2025-03-08 13:39 | Discharge Summary ---
Date of Service March 08, 2025 Admission HPI Per Admitting Provider 69-year-old female with past med history significant for diabetes, primary aldosteronism, postsurgical hypothyroidism, mixed hyperlipidemia, pancreatic duct dilated, COPD, mitral valve regurgitation, hypertension, GERD, psoriasis, insomnia, recurrent thyroid cancer s/p surgery/BRAND therapy, history of post laryngectomy stoma stenosis status post stomaplasty, pancreatic cancer s/p surgery, colon cancer status post surgery, GERD, history of Gross syndrome/FAP, history of MRSA per record, past tobacco use, was recently in the hospital for acute hypoxic respiratory failure secondary to COPD exacerbation and rhinovirus infection did okay and discharged comes back with shortness of breath. And cough. Not feeling well. Per EMS was saturating 80%. She was given IV Solu-Medrol and DuoNeb en route and oxygen and sats improved. In the ER she was started worsening shortness of breath and tachypnea and oxygen saturations going down. At the time ABG showed pH of 7.16 patient is s/p a lot of suctioning by respiratory therapy and her oxygen saturation improved and patient's seems more comfortable. Repeat ABGs VBG pH was 7.25 and patient hemodynamically stable. States she is feeling better. Denies any chest pain. Denies headache. Afebrile. No runny nose or sore throat. No nausea. Denies abdominal pain. Says he was ambulating okay. Appetite is okay. Later again patient was requiring a lot of suctioning and is getting admitted to ICU for possible bedside bronchoscopy.Patient answering by nodding her head. Past medical history. As mentioned above. Past surgical history. Left breast biopsy. Colonoscopy. EGD. EGD with endoscopic ultrasound. ERCP. Flexible sigmoidoscopy. Tracheostomy and laryngectomy. Removal of colon/ileostomy x 3,. Thyroidectomy. Pancreatectomy proximal total duodenectomy. Whipple's procedure. Repair of incisional hernia. Repair windpipe. Sigmoidoscopy. Right breast biopsies ultrasound. Social history. Quit smoking 2006. Smoked 1 pack a day for 30 years. No alcohol use but no drug use. Family history. Father had colon cancer. Colon polyps. Sister had colon polyps and colon cancer. Admission Exam Per Admitting Provider General- Not in acute distress Head- atraumatic Eyes- PERRL. ENT- oropharynx clear Neck- laryngostomy seen. No obvious scretions seen Lungs- clear to auscultation b/l rhonchi heard Heart- regular rhythm; no murmur, no gallop. Abdomen- normal bowel sounds, soft, nontender, no distension Extremities- no pretibial edema, no erythema seen Neuro- alert, and awake PERRL,no facial palsy; answers by nodding head, moves extremities Principal Diagnosis Acute hypoxemic respiratory failure secondary to COPD exacerbation Rhinovirus infection MSSA tracheobronchitis Mucous plugging Staph auereus pneumonia MSSA bacteremia Discharge Data Allergies Allergy/AdvReac Type Severity Reaction Status Date / Time zolpidem [From Ambien] Allergy Severe pysch Verified 07/16/24 09:24 complications, dizzy NSAIDS (Non-Steroidal Allergy Intermediate Ulcer & Verified 07/16/24 09:24 Anti-Inflamma anemia hydrochlorothiazide AdvReac Intermediate Acute Verified 07/16/24 09:24 kidney injury rosuvastatin [From Crestor] AdvReac Intermediate Elavated Verified 07/16/24 09:24 liver function test Consultations 03/04/25 04:13 ED Decision to Admit Stat 03/04/25 07:24 Consult Sand Analyst Routine 03/04/25 08:00 Consult Pulmonology Routine 03/06/25 07:45 Consult Infectious Diseases Routine Ordered Studies Laboratory Results WBC 8.63 K/ul (4.8-10.8) 03/08/25 05:47 RBC 4.52 M/uL (4.20-5.40) 03/08/25 05:47 Hgb 12.4 g/dl (12.0-16.0) 03/08/25 05:47 POC Hgb 14.6 g/dl (12.0-16.0) 03/04/25 05:04 Hct 37.5 % (37.0-47.0) 03/08/25 05:47 POC Hct 43 % (37-47) 03/04/25 05:04 MCV 83.0 fL (80.0-100.0) 03/08/25 05:47 MCH 27.4 pg (25.0-34.0) 03/08/25 05:47 MCHC 33.1 g/dL (32.0-36.0) 03/08/25 05:47 RDW Std Deviation 43.8 fL (36.4-46.3) 03/08/25 05:47 RDW Coeff of Monika 14.5 % (11.5-14.5) 03/08/25 05:47 Plt Count 236 K/uL (130-400) 03/08/25 05:47 MPV 10.4 fL (9.4-12.4) 03/08/25 05:47 Immature Gran % (Auto) 0.7 % 03/05/25 04:58 Neut % (Auto) 90.8 % 03/05/25 04:58 Lymph % (Auto) 5.7 % 03/05/25 04:58 Humphreys % (Auto) 2.7 % 03/05/25 04:58 Eos % (Auto) 0.0 % 03/05/25 04:58 Baso % (Auto) 0.1 % 03/05/25 04:58 Neut # (Auto) 14.31 K/uL (1.40-6.50) H 03/05/25 04:58 Lymph # (Auto) 0.89 K/uL (1.20-3.40) L 03/05/25 04:58 Humphreys # (Auto) 0.42 K/uL (0.11-0.59) 03/05/25 04:58 Eos # (Auto) 0.00 K/uL (0.00-0.50) 03/05/25 04:58 Baso # (Auto) 0.02 K/uL (0.00-0.20) 03/05/25 04:58 Immature Gran # (Auto) 0.11 K/uL (0.01-0.20) 03/05/25 04:58 Specimen Type Arterial 03/04/25 05:04 Sample Site R Radial 03/04/25 05:04 POC pH 7.16 (7.35-7.45) L* 03/04/25 05:04 POC pCO2 63 mmHg (35-46) H 03/04/25 05:04 POC pO2 141 mmHg (80-95) H 03/04/25 05:04 POC HCO3 22 tomer/L (19-24) 03/04/25 05:04 POC Total CO2 24 mmol/L (24-31) 03/04/25 05:04 POC Base Excess -7.0 tomer/L (-9-1.8) 03/04/25 05:04 O2 Sat Pulse Oximetry 96 03/04/25 05:04 ABG pH (Temp Correct) 7.163 (7.35-7.45) L* 03/04/25 05:04 ABG pCO2 (Temp Corrct 61 mmHg (35-46) H 03/04/25 05:04 POC ABG pO2 at Pt Temp 137 03/04/25 05:04 POC ABG O2 Sat 98.0 % (90-95) H 03/04/25 05:04 Ric Test NA 03/04/25 05:04 VBG pH 7.25 (7.36-7.41) L 03/04/25 05:30 VBG pCO2 59 mmHg (38-50) H 03/04/25 05:30 VBG pO2 69 mmHg 03/04/25 05:30 VBG HCO3 26 mmol/L 03/04/25 05:30 VBG O2 Saturation 93.7 % 03/04/25 05:30 VBG Base Excess -2.4 mEq/L 03/04/25 05:30 O2 Delivery Device Trach Col 03/04/25 05:04 POC FiO2 40 % 03/04/25 05:04 POC Sodium 137 mmol/L (135-144) 03/04/25 05:04 Sodium 139 mmol/L (136-145) 03/08/25 05:47 POC Potassium 4.0 mmol/L (3.3-5.0) 03/04/25 05:04 Potassium 3.2 mmol/L (3.5-5.1) L 03/08/25 05:47 POC Chloride 104 mmol/L (101-112) 03/04/25 03:57 Chloride 103 mmol/L (98-107) 03/08/25 05:47 Carbon Dioxide 28 mmol/L (21-32) 03/08/25 05:47 POC Total CO2 24 mmol/L (24-31) 03/04/25 03:57 Anion Gap 8 (3-11) 03/08/25 05:47 POC Anion Gap 18.0 mmol/L (16-25) 03/04/25 03:57 POC BUN 25 mg/dl (7-18) H 03/04/25 03:57 BUN 11 mg/dl (6-23) 03/08/25 05:47 Creatinine 0.79 mg/dl (0.6-1.2) 03/08/25 05:47 POC Creatinine 1.0 mg/dl (0.6-1.3) 03/04/25 03:57 Est Cr Clr Drug Dosing 73.2 ml/min 03/08/25 05:47 eGFR 81.43 03/08/25 05:47 BUN/Creatinine Ratio 13.9 (10-20) 03/08/25 05:47 Glucose 166 mg/dl (70-99(Fasting)) H 03/08/25 05:47 POC Glucose 180 mg/dl (70-99) H 03/08/25 11:06 POC Glucose (other) 220 mg/dl (70-99) H 03/04/25 03:57 Estimat Average Glucose 186 mg/dl 03/05/25 04:58 Hemoglobin A1c 8.1 % (4.5-5.6) H 03/05/25 04:58 Lactate 1.2 mmol/L (0.4-2.0) 03/04/25 03:49 Calcium 8.0 mg/dl (8.6-10.3) L 03/08/25 05:47 POC Ioniz Calcium Tony 1.21 mmol/l (1.12-1.32) 03/04/25 03:57 Magnesium 2.0 mg/dl (1.7-2.4) 03/08/25 05:47 Total Bilirubin 0.5 mg/dl (0.2-1.0) 03/04/25 03:49 Direct Bilirubin 0.2 mg/dl (0-0.2) 03/04/25 03:49 AST 37 U/L (13-39) 03/04/25 03:49 ALT 39 U/L (7-52) 03/04/25 03:49 Alkaline Phosphatase 139 U/L (34-104) H 03/04/25 03:49 Troponin I High Sens 12.4 pg/ml (0-14) 03/04/25 03:49 Total Protein 8.0 gm/dl (6.0-8.3) 03/04/25 03:49 Albumin 4.2 gm/dl (3.4-5.0) 03/04/25 03:49 Procalcitonin 0.08 ng/ml (0-0.5) 03/04/25 03:49 Urine Color Yellow 08/31/25 12:12 Urine Appearance Clear (Clear) 03/04/25 12:12 Urine pH 5.0 (4.5-7.5) 03/04/25 12:12 Ur Specific [place] 1.019 (1.000-1.030) 03/04/25 12:12 Urine Protein 2+ (Negative) H 03/04/25 12:12 Urine Glucose (UA) 1+ (Negative) H 03/04/25 12:12 Urine Ketones Negative (Negative) 03/04/25 12:12 Urine Blood Negative (Negative) 03/04/25 12:12 Urine Nitrite Negative (Negative) 03/04/25 12:12 Urine Bilirubin Negative (Negative) 03/04/25 12:12 Urine Urobilinogen Negative (Negative) 03/04/25 12:12 Ur Leukocyte Esterase Negative (Negative) 03/04/25 12:12 Urine WBC (Auto) 0-5 /hpf (0-5) 03/04/25 12:12 Urine RBC (Auto) 0-2 /hpf (0-2) 03/04/25 12:12 U Hyaline Cast (Auto) 6-10 /lpf (0-2) H 03/04/25 12:12 U Epithel Cells (Auto) 0-2 /hpf (0-2) 03/04/25 12:12 Urine Bacteria (Auto) None Seen (None Seen) 03/04/25 12:12 Urine Comment 03/04/25 12:12 Fluid Neutrophils % 98 % 03/04/25 09:15 Fluid Lymphocytes % 1 % 03/04/25 09:15 Fl Monocyt/Macrophag % 1 % 03/04/25 09:15 Fluid Comment 03/04/25 09:15 Nasal Screen MRSA (PCR) Negative (Negative) 03/04/25 09:15 Adenovirus (PCR) Not Detected (NotDetected) 03/04/25 03:53 B. pertussis DNA (PCR) Not Detected (NotDetected) 03/04/25 03:53 B.parapertussis DNA PCR Not Detected (NotDetected) 03/04/25 03:53 C. pneumoniae DNA (PCR) Not Detected (NotDetected) 03/04/25 03:53 Coronavirus OC43 (PCR) Not Detected (NotDetected) 03/04/25 03:53 Coronavirus HKU1 (PCR) Not Detected (NotDetected) 03/04/25 03:53 Coronavirus 229E (PCR) Not Detected (NotDetected) 03/04/25 03:53 SARS-CoV-2 (PCR) Not Detected (NotDetected) 03/04/25 03:53 Coronavirus NL63 (PCR) Not Detected (NotDetected) 03/04/25 03:53 Human Metapneumovir PCR Not Detected (NotDetected) 03/04/25 03:53 Influenza Type A (PCR) Not Detected (NotDetected) 03/04/25 03:53 Influenza Type B (PCR) Not Detected (NotDetected) 03/04/25 03:53 M. pneumoniae (PCR) Not Detected (NotDetected) 03/04/25 03:53 Parainfluenza 1 (PCR) Not Detected (NotDetected) 03/04/25 03:53 Parainfluenza 2 (PCR) Not Detected (NotDetected) 03/04/25 03:53 Parainfluenza 3 (PCR) Not Detected (NotDetected) 03/04/25 03:53 Parainfluenza 4 (PCR) Not Detected (NotDetected) 03/04/25 03:53 RSV (PCR) Not Detected (NotDetected) 03/04/25 03:53 Entero/Rhino (PCR) DETECTED (NotDetected) A 03/04/25 03:53 Staphylococcus sp PCR DETECTED (NotDetected) A 03/04/25 03:49 Staph aureus (PCR) DETECTED (NotDetected) A 03/04/25 03:49 mecA/C & MREJ Resist Gene MRSA Not Detected (NotDetected) 03/04/25 03:49 Bld Cult ID Panel PCR See PCR Comment (NotDetected) 03/04/25 03:49 Miscellaneous Test Cancelled 03/04/25 09:15 Impressions Chest X-Ray 03/04/25 09:15 EXAM: AP portable chest EXAM REASON: Post bronchoscopy COMPARISON: 03/02/2025 TECHNIQUE: A single AP view of the chest was obtained FINDINGS: The lungs are well-expanded. No focal areas of consolidation are identified. The cardiac and mediastinal silhouettes are within normal limits. Lines and tubes are unchanged from the previous exam. There is no pneumothorax and no acute bony abnormalities are seen IMPRESSION: No acute cardiopulmonary abnormalities. Electronically signed by Zhen Isaac 03-04-2025 09:49 AM Hospital Course (1) Mucus plugging of bronchi: (2) Rhinovirus infection: (3) Acute respiratory distress: (4) CAP (community acquired pneumonia): (5) Tracheobronchitis, acute or subacute, with bronchospasm or obstruction: Plan Acute hypoxemic respiratory failure secondary to COPD exacerbation Rhinovirus infection MSSA tracheobronchitis Mucous plugging Staph aureus CAP --CXR: No evidence of consolidation/collapse. No pleural effusion is identified bilaterally. The previously seen opacification in left lower zone and at left costophrenic angle is not visualized on current examination. Borderline cardiomegaly. No other significant interval changes. -- BioFire positive for rhinovirus --Serology for adenovirus, Coccidioides, histoplasmosis, influenza, RSV, Legionella, pneumocystis, Aspergillus pending Continue nebs, Pulmicort, Perforomist while hospitalized Continue flutter, hypertonic saline nebs Appreciate pulmonology input Continue prednisone to complete 5-day course Continue antibiotics as below Advised to follow-up with pulmonology on discharge Plan to be discharged home today MSSA bacteremia--POA -- Blood culture 07/08: Staph aureus -- Repeat blood culture: negative to date --ECHO: Left ventricular systolic function normal. EF 65 to 70%. Mild concentric LVH. Grade 1 diastolic dysfunction. No evidence of endocarditis within the limitations of the imaging modality. Continue IV cefazolin while hospitalized Appreciate infectious disease input Plan to discharge on Zyvox to complete 2-week course Hypertension Continue amlodipine, carvedilol, Hydralazine, Losartan Monitor and adjust medications Blood pressure stable today HLD History of statin intolerance Continue Zetia DM Type 2 -SSI Monitor blood glucose levels Primary Aldosteronism Adrenal Nodules -Needs outpatient endocrinology f/u Other chronic conditions: #Hx of Thyroid Cancer #S/p Laryngectomy s/p Stomatoplasty #Hx of Pancreatic Cancer s/p Whipple Procedure #Hx of Colon Cancer s/p resection #Hx of Gross Syndrome DVT Px: Lovenox SQ CODE STATUS Full code Disposition Home Total Time Total Time Spent Total Time Spent (In Minutes): 55 minutes Discharge Plan Discharge Items Patient Disposition: Home - Self-Care Reason For Visit: COPD EX, RESP DISTRESS Discharge Diagnosis: Acute hypoxemic respiratory failure secondary to COPD exacerbation Rhinovirus infection MSSA tracheobronchitis Mucous plugging Staph auereus pneumonia MSSA bacteremia Condition on Discharge: Fair Activity: Per Instructions section Exercise/Sports: Wait until after follow-up appointment Non-emergency contact: Primary Care Provider and C2 Tactical Analysis Technician Call non-emergency contact if: you have any medication questions, your symptoms worsen, your pain is concerning for you and you have a fever Follow-up/Referrals: Orlin Castro MD [Primary Care Provider] - (Date & Time 03/13/2025 10:20 AM Provider: Tierra Manrique MD General Internal Medicine [facility] ) Perfecto Contreras MD [Outside Practitioners] - (Date & Time 03/12/2025 9:30 AM Provider: Perfecto Contreras MD Pulmonary Medicine, [facility] ) Diet: Carb Consistent or DM2 and Heart Healthy Addtl Attending Provider Instructions: -- Follow-up with your primary care physician and wood 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 Follow-up with your physician for results. Seek immediate medical attention if your symptoms reoccur or worsen Please review medication list provided on discharge for any medication changes as instructed. Please call if you have any questions or problems. You can reach a [facility] hospitalist on duty at [facility] 24 hours a day by calling [phone] Pending Studies at Discharge: Yes Studies:: Serology for adenovirus, Coccidioides, histoplasmosis, influenza, RSV, Legionella, pneumocystis, Aspergillus Stand-Alone Forms: [facility] [employer], Work/School Release, Smoking Cessation Medications and DC Order Prescriptions: New prednisone 20 mg Tablet 20 mg PO DAILY Qty: 3 0RF potassium chloride 10 mEq Tablet Extended Release 20 meq PO DAILY Qty: 5 0RF linezolid [Zyvox] 600 mg tablet 600 mg PO BID Qty: 20 0RF Continued carvedilol 25 mg tablet 25 mg PO BID repaglinide 2 mg tablet 2 mg PO UD Rx Instructions: one tab with breakfast and one tab with supper amlodipine 10 mg tablet 10 mg PO DAILY pantoprazole 40 mg tablet,delayed release (DR/EC) 40 mg PO DAILY levothyroxine 200 mcg tablet 200 mcg PO DAILY hydralazine 50 mg tablet 50 mg PO TID albuterol sulfate 90 mcg/actuation HFA aerosol inhaler 2 inh INHALATION Q6H PRN (Reason: Shortness Of Breath Or Wheezing) losartan 100 mg tablet 100 mg PO DAILY metformin 500 mg tablet extended release 24 hr 500 mg PO BID repaglinide 1 mg tablet 0.5 mg PO UD Rx Instructions: daily with evening snack ezetimibe 10 mg tablet 10 mg PO DAILY sodium chloride 7 % solution for nebulization 5 ml inhalation BID PRN (Reason: Shortness Of Breath Or Wheezing) Rx Instructions: with nebs Spiriva Respimat 2.5 mcg/actuation mist 1 inh INHALATION DAILY Qvar RediHaler 40 mcg/actuation HFA aerosol breath activated 1 inh INHALATION DAILY cyanocobalamin (vitamin B-12) 1,000 mcg Tablet 1,000 mcg PO DAILY ferrous sulfate 325 mg (65 mg iron) Tablet 325 mg PO TID ipratropium-albuterol 0.5 mg-3 mg(2.5 mg base)/3 mL Solution For Nebulization 3 ml INHALATION Q6H PRN (Reason: Shortness Of Breath Or Wheezing) 30 Days Qty: 90 0RF guaifenesin 600 mg Tablet Extended Release 12hr 1,200 mg PO BID Qty: 12 0RF Discontinued prednisone 20 mg tablet 40 mg PO DIRECTED Rx Instructions: 40mg daily for 5 days until mar 08 2025 Discharge Orders: Discharge Order (Routine); Ordered 03/08/25 Ordered By: Tye Mckeon/Other Patient Handouts: Managing Type 2 Diabetes Admission Data Admit Date/Time: 03/04/25 06:20 Attending Provider: Tye Dunlap Admit Provider: Joseph Courtney Primary Care Provider: Orlin Castro Other Providers: Cordell Stovall; Joseph Courtney; Negro Rodríguez; Sridhar Sterling; Jabari Beach I.; Alberto Chang II; Yoko Graham; Toño Mccracken; Kory Salmon; Soraya Orellana
[2025-03-09] MEDS ORDERED: POTASSIUM CHLORIDE 10 MEQ TABCR PO SCH (09:00)
== END 2025-03-08 16:52 | disposition home or self-care (01) | DRG 871 ==
LOC: ED 03:25 → 2E 06:20 → 1E 06:20 → SUATTDRO 06:20 → 1E 08:35 → 2E 03-05 16:04